=== PATIENT | male | born 1945 | race Caucasian/White ===

== ENCOUNTER 2018-02-06 12:38 | Inpatient (IN) | payer MEDICARE, SELFPAY ==
[2018-02-06] VITALS (10 sets, daily range): BP systolic 140–159; BP diastolic 71–123; PULSE 67–78; RESP 16–20; TEMP 36.6–37.2; O2SAT 93–97
--- NOTE | 2018-02-06 12:46 | DI.RPTCT_ITS ---
SYMPTOMS/DIAGNOSIS: ABDOMINAL PAIN CT OF THE ABDOMEN AND PELVIS: Comparison is made with December,. Images were performed from the lung bases through the ischial tuberosities after IV contrast. Again noted are two small fatty-containing hernias anteriorly above the level of the umbilicus. There are bilateral inguinal hernias. The left contains fat. The right contains a loop of small bowel, which appears nonobstructed. The appendix appears normal. There are dilated loops of proximal small bowel with a transition point anteriorly in the right upper quadrant. There is mild stranding in the mesentery. There is no bowel wall thickening or pneumatosis. The colon is unremarkable. Coronary artery calcifications are seen. Mild atelectasis is noted at the right lung base. The right diaphragm is again noted to be elevated. There is a large amount of intraabdominal fat and a large amount of fat between the liver and the diaphragm. The liver, spleen, gallbladder and adrenals are unremarkable. There are a few small renal cysts. The prostate is mildly enlarged. There is bladder wall thickening. The aorta shows calcification but is normal in diameter. IMPRESSION: Dilated proximal small bowel with transition point in the right mid abdomen near the level of the small fatty-containing umbilical hernias. The right inguinal hernia contains a nonobstructed loop of small bowel.
--- NOTE | 2018-02-06 12:48 | ED.GENADUL ---
Disposition Clinical Impression: Partial small bowel obstruction Disposition: [facility] INPATIENT Condition: Stable Medical Decision Making - Lab Data Laboratory Results - last 24 hr 02/06/18 02/06/18 02/06/18 12:53 12:53 13:10 WBC 8.62 RBC 5.02 Hgb 15.0 Hct 43.2 MCV 86.1 MCH 29.9 MCHC 34.7 RDW 14.0 Plt Count 205 MPV 10.1 Immature Gran % 0.2 Neutrophils % 76.0 Lymphocytes % 11.0 Monocytes % 10.2 Eosinophils % 2.3 Basophils % 0.3 Absolute Neutrophils 6.54 Absolute Lymphocytes 0.95 L Absolute Monocytes 0.88 H Absolute Eosinophils 0.20 Absolute Basophils 0.03 Sodium 138 Potassium 3.5 Chloride 103 Carbon Dioxide 24.7 Anion Gap 10.3 BUN 14 Creatinine 0.99 Estimated GFR/1.73 m2 >= 60.00 Glucose 124 H Calcium 9.1 Magnesium 2.1 Total Bilirubin 1.3 H AST 19 ALT 22 Alkaline Phosphatase 151 H Total Protein 7.6 Albumin 4.3 Lipase 107 Urine Color Yellow Urine Clarity Clear Urine pH 6.0 Ur Specific [place] 1.020 Urine Protein 30 H Urine Ketones Negative Urine Blood Trace-intact H Urine Nitrite Negative Urine Bilirubin Negative Urine Urobilinogen 1.0 H Ur Leukocyte Esterase Negative Urine RBC 0-2 Urine WBC 0-2 Ur Epithelial Cells Rare Urine Crystals Negative Urine Bacteria Negative Urine Casts 0-2 hyaline Urine Mucus Trace Urine Other Many spermatozoa Ur Culture Indicated? No Urine Glucose Negative Results reviewed for labs ordered during visit: Yes - Radiology Data Radiology results: report reviewed CAT scan of the abdomen and pelvis with IV contrast only findings consistent with partial small bowel obstruction without a specific transition point right inguinal hernia containing bowel which does not appear to be because of obstruction - Medical Decision Making Patient presents with 1 day history of abdominal pain which was preceded by diarrhea. No fevers does have nausea. Will obtain IV access send routine abdominal pain labs urine. Will administer normal saline IV fluid bolus 1 L with Zofran 4 mg IV and morphine 2 mg IV if needed for pain. Will obtain CAT scan with IV contrast only. Working diagnosis includes: bowel obstruction, incarcerated hernia, or and diverticulitis. CAT scan in case reviewed with on-call surgeon who accepts patient under observation status to the medical surgical unit for IV hydration bowel rest antiemetic and pain management. Care of patient transferred History of Present Illness - General Chief complaint: Abd Prob Stated complaint: ABDOMEN PAIN Time Seen by Provider: 02/06/18 12:45 Source: patient, RN notes reviewed (Agree with nursing on past medical social history and medications) Mode of arrival: ambulatory Limitations: no limitations - History of Present Illness Initial comments: Patient presents for a 1 day history of abdominal pain nausea. Has had no similar history in the past but states that he did have an abdominal hernia which was repaired. He states he had diarrhea yesterday not bloody but today developed the abdominal pain and nausea. He has had no fevers or chills. States his abdomen has been's soft and does not feel distended. On exam he had pain in the left side of his abdomen on palpation. Onset/Timin -: days(s) Location: abdomen Radiation: non-radiation Quality: aching, sharp Consistency: constant Improves with: none Worsens with: none Associated Symptoms: loss of appetite Treatments Prior to Arrival: none - Related Data Aspirin 325 mg PO DAILY tab-cap NS 12/19/12 Atorvastatin Calcium 80 mg PO DAILY tab-cap NS 12/19/12 Losartan [Cozaar] 100 mg PO DAILY tab-cap NS 12/19/12 Metformin HCl 1,000 mg PO BID tab-cap NS 12/19/12 Nebivolol HCl [Bystolic] 20 mg PO DAILY tab-cap NS 12/19/12 Potassium Chloride Liquid [K-Bee] 20 meq PO BID packet NS 12/19/12 Albuterol Sulfate [Proair Hfa] 1 puff IH Q6H PRN PRN 01/02/13 Budesonide/Formoterol Fumarate [Symbicort 160-4.5 Mcg Inhaler] 2 puff IH BID 01/09/13 Penicillin V Potassium 1 tab PO BID 01/09/13 Triamcinolone 0.1% Cream [Kenalog 0.1% Cream] 15 gm TP BID PRN 01/09/13 Furosemide 40 mg PO BID 01/15/13 AmLODIPine [Norvasc] 10 mg PO BID 12/11/15 BuPROPion CR [Wellbutrin Sr] 150 mg PO BID 12/11/15 Doxazosin [Cardura] 4 mg PO DAILY 02/14/16 Cholecalciferol (Vitamin D3) [Vitamin D3] 1 cap PO DAILY 08/22/17 Allergies Allergy/AdvReac Type Severity Reaction Status Date / Time oxycodone AdvReac Intermediate Nausea Unverified 02/06/18 12:48 Review of Systems Constitutional: denies: chills, fever Gastrointestinal: abdominal pain, nausea, diarrhea. denies: vomiting, constipation Genitourinary: denies: urgency, dysuria, frequency Musculoskeletal: denies: back pain Skin: denies: rash, lesions Past Medical History - Past Medical History Medical history: CAD, COPD, diabetes, hypertension Surgical history: herniorraphy - Social History Alcohol use: none Drug use: none General Exam - General Limitations: no limitations General appearance: alert, in no apparent distress - Head Head exam: Present: atraumatic, normocephalic - ENT ENT exam: Present: normal exam, mucous membranes moist - Neck Neck exam: Present: normal inspection - Respiratory Respiratory exam: Present: normal lung sounds bilaterally. Absent: respiratory distress - Cardiovascular Cardiovascular Exam: Present: regular rate - GI/Abdominal GI/Abdominal exam: Present: soft, distended, tenderness, hypoactive bowel sounds. Absent: guarding, rebound, rigid - Rectal Rectal exam: Present: deferred - Extremities Exam Extremities exam: Present: normal inspection, full ROM - Back Exam Back exam: Present: normal inspection, full ROM - Neurological Exam Neurological exam: Present: alert, oriented X3 - Psychiatric Psychiatric exam: Present: normal affect, normal mood - Skin Skin exam: Present: warm, dry, intact, normal color
[2018-02-06] MEDS: Normal Saline 1,000 ML 1000 ML IV (13:03)
[2018-02-06 13:04] LABS: Abs Immature Grans 0.02 k/cumm (0.0-0.09); Absolute Basophil Count 0.03 k/cumm (0.0-0.2); Absolute Lymphocyte Count 0.95 k/cumm (1.2-3.4); Absolute Monocyte Count 0.88 k/cumm (0.11-0.7); Absolute Neutrophil Count 6.54 k/cumm (1.2-6.7); Basophils % 0.3; Eosinophils % 2.3; HCT 43.2 % (40.0-50.0); Immature Grans % 0.2; Mean Corp. HGB Concentration 34.7 g/dL (32.0-36.0); Mean Corpuscular Hemoglobin 29.9 pg (27.0-33.0); Mean Corpuscular Volume 86.1 fL (80-95); Mean Platelet Volume 10.1 fL (8.0-11.0); Monocytes % 10.2; Platelet Count 205 x1000/uL (130-400); RBC 5.02 m/cumm (4.50-6.00); White Blood Cell Count 8.62 k/cumm (4.4-10.8)
[2018-02-06] MEDS: Ondansetron 4 MG/2 ML VIAL IVP (13:04)
[2018-02-06] MEDS: MORPHine 10 MG/ML VIAL 2 MG IVP (13:05)
[2018-02-06 13:15] LABS: ALT 22 U/L (12-78); AST 19 U/L (15-37); Albumin 4.3 g/dL (3.4-5.0); Alkaline Phosphatase 151 U/L (46-116); Anion Gap 10.3 mmol/L (3-11); BUN 14 mg/dL (7-18); Bilirubin, Total 1.3 mg/dL (0.2-1.0); CO2 24.7 mmol/L (21.0-32.0); CREATININE 0.99 mg/dL (0.70-1.30); Calcium 9.1 mg/dL (8.5-10.1); Chloride 103 mmol/L (98-107); Glucose 124 mg/dL (70-100); Lipase 107 U/L (73-393); Magnesium 2.1 mg/dL (1.8-2.4); Potassium 3.5 mmol/L (3.5-5.1); Sodium 138 mmol/L (136-145); Total Protein 7.6 g/dL (6.4-8.2)
[2018-02-06 13:18] LABS: Bilirubin Negative (Negative); Blood Trace-intact (Negative); Clarity Clear; Glucose Negative (Negative); Ketones Negative (Negative); Leukocyte Esterase Negative (Negative); Nitrite Negative (Negative)
[2018-02-06 13:29] LABS: Bacteria Negative HPF (Negative); Casts 0-2 Hyaline LPF (Negative); Crystals Negative HPF (Negative); Epithelial Cells Rare HPF (Negative); Mucus Trace (Negative); RBC 0-2 (0-2); WBC 0-2 HPF (0-5)
[2018-02-06] MEDS: Omnipaque 350 MG/ML 100 ML BTL IJ (13:31)
[2018-02-06 13:38] LABS: C & S Indicated? No
--- NOTE | 2018-02-06 13:57 | DI.VRAD_ITS ---
EXAM: CT Abdomen and Pelvis With Intravenous Contrast CLINICAL HISTORY: 72 years old, male; Pain; Abdominal pain; Generalized TECHNIQUE: Axial computed tomography images of the abdomen and pelvis with intravenous contrast. Coronal and sagittal reformatted images were created and reviewed. COMPARISON: CT - ABD PELVIS WITH CONTRAST 2015-12-19 02:03 FINDINGS: Right basilar atelectasis or scarring. Appendix is normal. Persistent mildly dilated fluid-filled loops of small bowel proximally with nondilated loops of bowel distally consistent with a partial small bowel structures. A specific transition point is not definitively identified. Small amount of free abdominal and pelvic fluid. Moderate bilateral inguinal hernias with bowel extending through the right hernia defect although this is not appear to be the cause of obstruction. No definite focal inflammatory process. No obstructive uropathy. IMPRESSION: Findings consistent with a persistent or recurrent partial small bowel obstruction without a specific transition point. Right inguinal hernia containing bowel which does not appear to be the cause of obstruction. Dictated and Authenticated by: Stephane Contreras MD. Ordering:RODRIGUE DUARTE MD
[2018-02-06] MEDS: Lactated Ringers 1,000 ML 125 ML IV (14:15)
[2018-02-06] MEDS: Furosemide 80 MG TAB 40 MG PO (15:59)
--- NOTE | 2018-02-06 16:31 | PDOC.HP ---
Assessment/Plan - Assessment/Plan (1) Small bowel obstruction, partial Assessment: Recurrent, likely secondary to small bowel adhesions. The patient has been hospitalized for SBO in the past which resolved with conservative management. Plan: 1. NPO with IVF hydration 2. Antiemetic therapy 3. NGT if patient begins to vomit 4. Pain control, attempt non-narcotic 5. SCDs and ambulation for DVT prophylaxis (2) Diarrhea Assessment: Patient reports 6 months of intermittent diarrhea as well as diarrhea multiple times yesterday until last night. Plan: 1. C. Diff screen 2. Fecal pathogen screen (3) Diabetes Assessment: Patient takes Metformin at home. Not currently on insulin. Plan: 1. Hold metformin during admission. 2. Blood glucose monitoring Q6 hrs with insulin sliding scale. (4) Hypertension Assessment: Patient takes multiple home medications for hypertension including amlodipine, losartan, Bystolic, and Lasix. Plan: Continue home blood pressure medications (5) Hyperlipidemia Assessment: Patient takes statin at home. Plan: Hold statin during admission (6) Obstructive sleep apnea Assessment: Patient does not report bipap at home Plan: Sleep with HOB elevated >30 degrees (7) Coronary artery disease Assessment: Patient takes aspirin at home Plan: Continue aspirin. potline monitor/telemetry. (8) COPD (chronic obstructive pulmonary disease) Assessment: Patient takes Symbicort at home Plan: Continue home Symbicort History of Present Illness - History of Present Illness Chief Complaint: Abdominal pain and distension History of Present Illness: The patient is a 72 year old male with a history of previous laparoscopic ventral hernia repair with mesh with subsequent revision and recurrent small bowel obstructions who presents to the ED with a one day history of worsening crampy epigastric and mid-abdominal pain along with abdominal distension and mild nausea. The patient reports liquid diarrhea most of the day yesterday with his last BM last night. He notes producing a small amount of flatus throughout the day today. He reports intermittent diarrhea for the past six months for which he has not yet seen a doctor. He denies vomiting, chest pain, SOB, fever, and chills. He has a complex medical history including DM II on metformin only, CAD s/p CT x2 requiring cardiac cath (no stenting to patient's knowledge), HTN, HLD, RJ, COPD and peripheral neuropathy. Last colonoscopy was in 2016 during which several polyps were removed. CT scan performed in the ED shows dilated loops of proximal small bowel with decompressed distal small bowel and no clear transition point. Of note, CT scan revealed bilateral inguinal hernias, with the right side containing a loop of small bowel which does not appear to be contributing to the SBO. The patient was unaware of the inguinal hernias. The inguinal hernias are easily reducible and nontender on physical exam. - Past Medical History Cardiac: CAD, HTN, CT, Hyperlipidemia Pulmonary: COPD, Other (Obstructive sleep apnea) [employer]: Peripheral neuropathy Gastrointestinal: Other (chronic intermittent diarrhea, recurrent SBO) Renal/: Benign prostatic enlarg. Endocrine: Diabetes, Other (obesity) - Past Surgical History Past Surgical History: Hernia Repair (laparoscopic ventral with mesh), Total Knee Replacement (bilateral), Other (Diagnostic laparoscopy with lysis of adhesions and ventral hernia revision, Left rotator cuff repair) - Past Family History Family History: CAD (Brothers), Other (Mother of CHF) - Past Social History Smoke: No Alcohol: None Drugs: None Lives: With Family () Review of Systems - Review of Systems Constitutional: Malaise. denies: Fever, Chills, Sweats, Weakness Eyes: denies: Pain, Vision Change, Conjunctivae Inflammation, Eyelid Inflammation, Redness ENT: denies: Ear Pain, Ear Discharge, Nose Pain, Nose Discharge, Nose Congestion, Mouth Pain, Mouth Swelling, Throat Pain, Throat Swelling Respiratory: denies: Cough, Shortness of Breath, Hemoptysis, Sputum, Wheezing Cardiovascular: Edema (improved today from baseline). denies: Chest Pain, Palpitations Gastrointestinal: Nausea (mild and intermittent), Abdominal Pain (Epigastric and mid-abdomen), Diarrhea. denies: Vomiting, Melena, Hematochezia Genitourinary: denies: Dysuria, Frequency, Incontinence, Hematuria Musculoskeletal: Shoulder Pain (left) Skin: denies: Rash, Lesions, Bruising Neurological: denies: Weakness, Numbness, Incoordination, Change in Speech, Confusion - Medications/Allergies Allergies/Adverse Reactions: Allergies Allergy/AdvReac Type Severity Reaction Status Date / Time oxycodone AdvReac Intermediate Nausea Unverified 02/06/18 12:48 Medications: Current Medications Acetaminophen (Tylenol) 650 mg PO Q6H PRN PRN PRN Reason: Pain or Fever Albuterol Sulfate (Ventolin Hfa) 1 puff IH Q6H PRN PRN Amlodipine Besylate (Norvasc) 10 mg PO BID [facility] Budesonide/Formoterol Fumarate (Symbicort 160/4.5 Mcg Inhaler) 2 puff IH BID [facility] Bupropion HCl (Wellbutrin Sr) 150 mg PO BID [facility] Dextrose (Insta-Glucose) 0 gm PO DIRECTED PRN Dextrose/Water () 0 gm IVP DIRECTED PRN Dimethicone/Zinc Oxide (Tono Protect Cream) 0 gm TP PRN PRN Doxazosin Mesylate (Cardura) 4 mg PO DAILY [facility] Furosemide (Lasix) 40 mg PO BID@0830,1600 [facility] Last Admin: 02/06/18 15:59 Dose: 40 mg Potassium Chloride/Sodium Chloride (Kcl 40 Meq/Ns) 1,000 mls @ 125 mls/hr IV INFUSION [facility] IV Miscellaneous Supplies () 1 each IV DIRECTED [facility] Insulin Aspart (Novolog Flexpen) 0 units SC 0800,1200,1700 MARQUIS PRN Reason: Protocol Ketorolac Tromethamine (Toradol Injection) 30 mg IVP Q6H PRN PRN PRN Reason: Pain Stop: 02/11/18 16:06 Losartan Potassium (Cozaar) 100 mg PO DAILY [facility] Morphine Sulfate () 2 mg IVP Q3H PRN PRN PRN Reason: Pain Nebivolol (Bystolic) 20 mg PO DAILY [facility] Ondansetron HCl (Zofran Injection) 4 mg IVP Q4H PRN PRN Sodium Chloride (Saline Flush 10 Ml Syringe) 0 ml IVP PRN PRN Triamcinolone Acetonide (Kenalog 0.1% Cream) 0 gm TP BID PRN PRN Objective - Exam Vitals and I&O: Vital Signs Temp 37.1 C 02/06/18 14:43 Pulse 70 02/06/18 14:43 Resp 16 02/06/18 14:43 BP 140/71 02/06/18 14:43 Pulse Ox 94 L 02/06/18 14:43 Intake & Output 02/05/18 02/06/18 02/06/18 23:59 11:59 23:59 Intake Total 1000 Balance 1000 Weight 109.769 kg Intake: IV 1000 General: Alert, Oriented x3, Cooperative, No acute distress HEENT: Atraumatic, EOMI, Mucous membr. moist/pink Neck: Supple. denies: JVD, Thyromegaly Lungs: Clear to auscultation, Normal air movement Cardiovascular: Regular rate, Normal S1, Normal S2. denies: Murmurs Abdomen: Soft, Tenderness (mild in epigastrium), Other (Obese, protuberant abdomen which appears mildly distended, reducible ventral hernia as well as likely diastasis recti). denies: Hepatospenomegaly, Masses Extremities: denies: Edema, Tenderness/swelling Skin: denies: Rashes, Breakdown, Significant lesion Neurological: Normal speech, Cranial nerves 3-12 NL Psych/Mental Status: Mental status NL, Mood NL Other physical findings: Bilateral reducible inguinal hernias, non-tender. Results - Laboratory Data Result Diagrams: 02/06/18 12:53 02/06/18 12:53 Laboratory Results: Laboratory Tests 02/06/18 02/06/18 02/06/18 12:53 12:53 13:10 WBC 8.62 RBC 5.02 Hgb 15.0 Hct 43.2 MCV 86.1 MCH 29.9 MCHC 34.7 RDW 14.0 Plt Count 205 MPV 10.1 Immature Gran % 0.2 Neutrophils % 76.0 Lymphocytes % 11.0 Monocytes % 10.2 Eosinophils % 2.3 Basophils % 0.3 Absolute Neutrophils 6.54 Absolute Lymphocytes 0.95 L Absolute Monocytes 0.88 H Absolute Eosinophils 0.20 Absolute Basophils 0.03 Sodium 138 Potassium 3.5 Chloride 103 Carbon Dioxide 24.7 Anion Gap 10.3 BUN 14 Creatinine 0.99 Estimated GFR/1.73 m2 >= 60.00 Glucose 124 H Calcium 9.1 Magnesium 2.1 Total Bilirubin 1.3 H AST 19 ALT 22 Alkaline Phosphatase 151 H Total Protein 7.6 Albumin 4.3 Lipase 107 Urine Color Yellow Urine Clarity Clear Urine pH 6.0 Ur Specific [place] 1.020 Urine Protein 30 H Urine Ketones Negative Urine Blood Trace-intact H Urine Nitrite Negative Urine Bilirubin Negative Urine Urobilinogen 1.0 H Ur Leukocyte Esterase Negative Urine RBC 0-2 Urine WBC 0-2 Ur Epithelial Cells Rare Urine Crystals Negative Urine Bacteria Negative Urine Casts 0-2 hyaline Urine Mucus Trace Urine Other Many spermatozoa Ur Culture Indicated? No Urine Glucose Negative
--- NOTE | 2018-02-06 16:42 | PDOC.HP_ITS ---
Assessment/Plan - Assessment/Plan (1) Small bowel obstruction, partial Assessment: Recurrent, likely secondary to small bowel adhesions. The patient has been hospitalized for SBO in the past which resolved with conservative management. Plan: 1. NPO with IVF hydration 2. Antiemetic therapy 3. NGT if patient begins to vomit 4. Pain control, attempt non-narcotic 5. SCDs and ambulation for DVT prophylaxis (2) Diarrhea Assessment: Patient reports 6 months of intermittent diarrhea as well as diarrhea multiple times yesterday until last night. Plan: 1. C. Diff screen 2. Fecal pathogen screen (3) Diabetes Assessment: Patient takes Metformin at home. Not currently on insulin. Plan: 1. Hold metformin during admission. 2. Blood glucose monitoring Q6 hrs with insulin sliding scale. (4) Hypertension Assessment: Patient takes multiple home medications for hypertension including amlodipine, losartan, Bystolic, and Lasix. Plan: Continue home blood pressure medications (5) Hyperlipidemia Assessment: Patient takes statin at home. Plan: Hold statin during admission (6) Obstructive sleep apnea Assessment: Patient does not report bipap at home Plan: Sleep with HOB elevated >30 degrees (7) Coronary artery disease Assessment: Patient takes aspirin at home Plan: Continue aspirin. clinical research monitor/telemetry. (8) COPD (chronic obstructive pulmonary disease) Assessment: Patient takes Symbicort at home Plan: Continue home Symbicort History of Present Illness - History of Present Illness Chief Complaint: Abdominal pain and distension History of Present Illness: The patient is a 72 year old male with a history of previous laparoscopic ventral hernia repair with mesh with subsequent revision and recurrent small bowel obstructions who presents to the ED with a one day history of worsening crampy epigastric and mid-abdominal pain along with abdominal distension and mild nausea. The patient reports liquid diarrhea most of the day yesterday with his last BM last night. He notes producing a small amount of flatus throughout the day today. He reports intermittent diarrhea for the past six months for which he has not yet seen a doctor. He denies vomiting, chest pain, SOB, fever, and chills. He has a complex medical history including DM II on metformin only, CAD s/p [place] x2 requiring cardiac cath (no stenting to patient's knowledge), HTN, HLD, RJ, COPD and peripheral neuropathy. Last colonoscopy was in 2016 during which several polyps were removed. CT scan performed in the ED shows dilated loops of proximal small bowel with decompressed distal small bowel and no clear transition point. Of note, CT scan revealed bilateral inguinal hernias, with the right side containing a loop of small bowel which does not appear to be contributing to the SBO. The patient was unaware of the inguinal hernias. The inguinal hernias are easily reducible and nontender on physical exam. 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 Endocrine: Diabetes, Other (obesity) - Past Surgical History Past Surgical History: Hernia Repair (laparoscopic ventral with mesh), Total Knee Replacement (bilateral), Other (Diagnostic laparoscopy with lysis of adhesions and ventral hernia revision, Left rotator cuff repair) - Past Family History Family History: CAD (Brothers), Other (Mother of CHF) - Past Social History Smoke: No Alcohol: None Drugs: None Lives: With Family () Review of Systems - Review of Systems Constitutional: Malaise. denies: Fever, Chills, Sweats, Weakness Eyes: denies: Pain, Vision Change, Conjunctivae Inflammation, Eyelid Inflammation, Redness ENT: denies: Ear Pain, Ear Discharge, Nose Pain, Nose Discharge, Nose Congestion , Mouth Pain, Mouth Swelling, Throat Pain, Throat Swelling Respiratory: denies: Cough, Shortness of Breath, Hemoptysis, Sputum, Wheezing Cardiovascular: Edema (improved today from baseline). denies: Chest Pain, Palpitations Gastrointestinal: Nausea (mild and intermittent), Abdominal Pain (Epigastric and mid-abdomen), Diarrhea. denies: Vomiting, Melena, Hematochezia Genitourinary: denies: Dysuria, Frequency, Incontinence, Hematuria Musculoskeletal: Shoulder Pain (left) Skin: denies: Rash, Lesions, Bruising Neurological: denies: Weakness, Numbness, Incoordination, Change in Speech, Confusion - Medications/Allergies Allergies/Adverse Reactions: Allergies Allergy/AdvReac Type Severity Reaction Status Date / Time oxycodone AdvReac Intermediate Nausea Unverified 02/06/18 12:48 Medications: Current Medications Acetaminophen (Tylenol) 650 mg PO Q6H PRN PRN PRN Reason: Pain or Fever Albuterol Sulfate (Ventolin Hfa) 1 puff IH Q6H PRN PRN Amlodipine Besylate (Norvasc) 10 mg PO BID ON LICENSE OF [facility] Budesonide/Formoterol Fumarate (Symbicort 160/4.5 Mcg Inhaler) 2 puff IH BID ON LICENSE OF [facility] Bupropion HCl (Wellbutrin Sr) 150 mg PO BID ON LICENSE OF [facility] Dextrose (Insta-Glucose) 0 gm PO DIRECTED PRN Dextrose/Water () 0 gm IVP DIRECTED PRN Dimethicone/Zinc Oxide (Tono Protect Cream) 0 gm TP PRN PRN Doxazosin Mesylate (Cardura) 4 mg PO DAILY ON LICENSE OF [facility] Furosemide (Lasix) 40 mg PO BID@0830,1600 ON LICENSE OF [facility] Last Admin: 02/06/18 15:59 Dose: 40 mg Potassium Chloride/Sodium Chloride (Kcl 40 Meq/Ns) 1,000 mls @ 125 mls/hr IV INFUSION ON LICENSE OF [facility] IV Miscellaneous Supplies () 1 each IV DIRECTED ON LICENSE OF [facility] Insulin Aspart (Novolog Flexpen) 0 units SC 0800,1200,1700 MARQUIS PRN Reason: Protocol Ketorolac Tromethamine (Toradol Injection) 30 mg IVP Q6H PRN PRN PRN Reason: Pain Stop: 02/11/18 16:06 Losartan Potassium (Cozaar) 100 mg PO DAILY ON LICENSE OF [facility] Morphine Sulfate () 2 mg IVP Q3H PRN PRN PRN Reason: Pain Nebivolol (Bystolic) 20 mg PO DAILY ON LICENSE OF [facility] Ondansetron HCl (Zofran Injection) 4 mg IVP Q4H PRN PRN Sodium Chloride (Saline Flush 10 Ml Syringe) 0 ml IVP PRN PRN Triamcinolone Acetonide (Kenalog 0.1% Cream) 0 gm TP BID PRN PRN Objective - Exam Vitals and I&O: Vital Signs Temp 37.1 C 02/06/18 14:43 Pulse 70 02/06/18 14:43 Resp 16 02/06/18 14:43 BP 140/71 02/06/18 14:43 Pulse Ox 94 L 02/06/18 14:43 Intake & Output 02/05/18 02/06/18 02/06/18 23:59 11:59 23:59 Intake Total 1000 Balance 1000 Weight 109.769 kg Intake: IV 1000 General: Alert, Oriented x3, Cooperative, No acute distress HEENT: Atraumatic, EOMI, Mucous membr. moist/pink Neck: Supple. denies: JVD, Thyromegaly Lungs: Clear to auscultation, Normal air movement Cardiovascular: Regular rate, Normal S1, Normal S2. denies: Murmurs Abdomen: Soft, Tenderness (mild in epigastrium), Other (Obese, protuberant abdomen which appears mildly distended, reducible ventral hernia as well as likely diastasis recti). denies: Hepatospenomegaly, Masses Extremities: denies: Edema, Tenderness/swelling Skin: denies: Rashes, Breakdown, Significant lesion Neurological: Normal speech, Cranial nerves 3-12 NL Psych/Mental Status: Mental status NL, Mood NL Other physical findings: Bilateral reducible inguinal hernias, non-tender. Results - Laboratory Data Result Diagrams: 02/06/18 12:53 02/06/18 12:53 Laboratory Results: Laboratory Tests 02/06/18 02/06/18 02/06/18 12:53 12:53 13:10 WBC 8.62 RBC 5.02 Hgb 15.0 Hct 43.2 MCV 86.1 MCH 29.9 MCHC 34.7 RDW 14.0 Plt Count 205 MPV 10.1 Immature Gran % 0.2 Neutrophils % 76.0 Lymphocytes % 11.0 Monocytes % 10.2 Eosinophils % 2.3 Basophils % 0.3 Absolute Neutrophils 6.54 Absolute Lymphocytes 0.95 L Absolute Monocytes 0.88 H Absolute Eosinophils 0.20 Absolute Basophils 0.03 Sodium 138 Potassium 3.5 Chloride 103 Carbon Dioxide 24.7 Anion Gap 10.3 BUN 14 Creatinine 0.99 Estimated GFR/1.73 m2 >= 60.00 Glucose 124 H Calcium 9.1 Magnesium 2.1 Total Bilirubin 1.3 H AST 19 ALT 22 Alkaline Phosphatase 151 H Total Protein 7.6 Albumin 4.3 Lipase 107 Urine Color Yellow Urine Clarity Clear Urine pH 6.0 Ur Specific [place] 1.020 Urine Protein 30 H Urine Ketones Negative Urine Blood Trace-intact H Urine Nitrite Negative Urine Bilirubin Negative Urine Urobilinogen 1.0 H Ur Leukocyte Esterase Negative Urine RBC 0-2 Urine WBC 0-2 Ur Epithelial Cells Rare Urine Crystals Negative Urine Bacteria Negative Urine Casts 0-2 hyaline Urine Mucus Trace Urine Other Many spermatozoa Ur Culture Indicated? No Urine Glucose Negative
[2018-02-06] MEDS: Budesonide/Formoterol 160/4.5 6 GM 60 PUFF INH IH (20:24)
[2018-02-06] MEDS: buPROPion-CR 150 MG TABCR PO (20:26)
[2018-02-06] MEDS: amLODIPine 10 MG TAB PO (20:26)
[2018-02-06] MEDS: POTASSIUM CHLORIDE/0.9% NACL 1,000 ML 125 MEQ IV (22:30)
[2018-02-07] VITALS (8 sets, daily range): BP systolic 103–144; BP diastolic 69–74; PULSE 58–74; RESP 19–20; TEMP 36.4–37; O2SAT 92–97
[2018-02-07] MEDS: POTASSIUM CHLORIDE/0.9% NACL 1,000 ML 125 MEQ IV ×2 (06:13→13:48)
[2018-02-07] MEDS: Budesonide/Formoterol 160/4.5 6 GM 60 PUFF INH IH ×2 (07:18→19:42)
[2018-02-07 07:30] LABS: HCT 42.1 % (40.0-50.0); HGB 14.2 g/dL (13.5-17.5); Mean Corp. HGB Concentration 33.7 g/dL (32.0-36.0); Mean Corpuscular Hemoglobin 29.8 pg (27.0-33.0); Mean Corpuscular Volume 88.3 fL (80-95); Mean Platelet Volume 10.4 fL (8.0-11.0); Platelet Count 196 x1000/uL (130-400); RBC 4.77 m/cumm (4.50-6.00); RBC Distribution Width 14.3 % (11.8-14.1); White Blood Cell Count 6.31 k/cumm (4.4-10.8)
[2018-02-07] MEDS: Furosemide 80 MG TAB 40 MG PO ×2 (08:21→16:20)
[2018-02-07] MEDS: buPROPion-CR 150 MG TABCR PO ×2 (08:21→19:42)
[2018-02-07] MEDS: Losartan 50 MG TAB 100 MG PO (08:21)
[2018-02-07] MEDS: amLODIPine 10 MG TAB PO ×2 (08:22→19:42)
[2018-02-07 08:54] LABS: ALT 22 U/L (12-78); AST 18 U/L (15-37); Albumin 3.7 g/dL (3.4-5.0); Alkaline Phosphatase 132 U/L (46-116); Anion Gap 11.5 mmol/L (3-11); BUN 12 mg/dL (7-18); Bilirubin, Direct 0.28 mg/dL (0.00-0.20); Bilirubin, Total 1.1 mg/dL (0.2-1.0); CO2 24.5 mmol/L (21.0-32.0); Calcium 8.6 mg/dL (8.5-10.1); Chloride 108 mmol/L (98-107); Glucose 116 mg/dL (70-100); Potassium 3.7 mmol/L (3.5-5.1); Sodium 144 mmol/L (136-145); Total Protein 6.7 g/dL (6.4-8.2)
[2018-02-07] MEDS: Normal Saline Flush 10 ML SYR IVP (11:09)
--- NOTE | 2018-02-07 11:36 | PDOC.PROG ---
Date of Service: 02/07/18 Time of Service: 09:00 Assessment/Plan - Assessment/Plan (1) Small bowel obstruction, partial Assessment: The patient continues to show signs of SBO with absence of flatus and stool as well as presence of nausea, abdominal discomfort and abdominal distension. Plan: 1. Continue conservative management with NPO with IVF hydration. 2. Encourage ambulation. 3. Pain management with non-narcotics if tolerated. 4. NGT if vomiting occurs. 5. DVT prophylaxis: SCDs and ambulation (2) Diarrhea Assessment: Resolved. No BM since admission. Plan: Stool studies ordered but pending secondary to lack of further BM. (3) Diabetes Assessment: On Metformin at home. Plan: Continue accuchecks with insulin sliding scale. Hold Metformin while inpatient. (4) Hypertension Assessment: Controlled with medication. Plan: Continue home medication. (5) Hyperlipidemia Assessment: On statin at home. Plan: Hold statin while inpatient. (6) Obstructive sleep apnea Assessment: On CPAP at home. Plan: Continue CPAP at night in hospital. (7) Coronary artery disease Assessment: S/p [place] x2 with cath but no stenting. On aspirin at home. Plan: Hold aspirin while inpatient in case the need for surgery arises. (8) COPD (chronic obstructive pulmonary disease) Assessment: On Symbicort at home. Plan: Continue Symbicort as inpatient. 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 He has a history of laparoscopic ventral hernia repair with mesh in 2012. Following his initial hernia surgery, he underwent a diagnostic laparoscopy with KARTHIKEYAN and ventral hernia repair revision also in 2012 as well as one subsequent hospitalization for SBO which resolved with conservative management in 2016. Today he continues to feel distended, denies BM or flatus, and reports only mild nausea without vomiting. He remains NPO with ice chips and IVF hydration. Of note, he reports 6 months of intermittent diarrhea as well as diarrhea for 24 hours prior to admission. For this reason stool studies are pending. Review of Systems - Review of Systems Constitutional: denies: Fever, Chills, Sweats, Weakness Respiratory: denies: Cough, Dry, Shortness of Breath, Hemoptysis, Sputum, Wheezing Cardiovascular: denies: Chest Pain, Palpitations, Light Headedness Gastrointestinal: Nausea (Mild), Abdominal Pain (diffuse), Other (Reports abdominal distension). denies: Vomiting, Diarrhea Genitourinary: denies: Dysuria, Frequency, Incontinence, Hematuria Skin: denies: Rash, Lesions Neurological: denies: Weakness, Incoordination, Change in Speech, Confusion - Medications/Allergies Allergies/Adverse Reactions: Allergies Allergy/AdvReac Type Severity Reaction Status Date / Time oxycodone AdvReac Intermediate Nausea Unverified 02/06/18 12:48 Medications: Current Medications Acetaminophen (Tylenol) 650 mg PO Q6H PRN PRN PRN Reason: Pain or Fever Albuterol Sulfate (Ventolin Hfa) 1 puff IH Q6H PRN PRN Amlodipine Besylate (Norvasc) 10 mg PO BID [facility] Last Admin: 02/07/18 08:22 Dose: 10 mg Benzocaine/Menthol (Cepacol Sugar Free) 1 each SUC Q6H PRN PRN Budesonide/Formoterol Fumarate (Symbicort 160/4.5 Mcg Inhaler) 2 puff IH BID [facility] Last Admin: 02/07/18 07:18 Dose: 2 puff Bupropion HCl (Wellbutrin Sr) 150 mg PO BID [facility] Last Admin: 02/07/18 08:21 Dose: 150 mg Dextrose (Insta-Glucose) 0 gm PO DIRECTED PRN Dextrose/Water () 0 gm IVP DIRECTED PRN Dimethicone/Zinc Oxide (Tono Protect Cream) 0 gm TP PRN PRN Doxazosin Mesylate (Cardura) 4 mg PO DAILY [facility] Last Admin: 02/07/18 08:21 Dose: 4 mg Furosemide (Lasix) 40 mg PO BID@0830,1600 [facility] Last Admin: 02/07/18 08:21 Dose: 40 mg Potassium Chloride/Sodium Chloride (Kcl 40 Meq/Ns) 1,000 mls @ 125 mls/hr IV INFUSION [facility] Last Admin: 02/07/18 06:13 Dose: 125 mls/hr IV Miscellaneous Supplies () 1 each IV DIRECTED [facility] Insulin Aspart (Novolog Flexpen) 0 units SC Q6H [place]QUIS PRN Reason: Protocol Last Admin: 02/07/18 11:33 Dose: Not Given Ketorolac Tromethamine (Toradol Injection) 30 mg IVP Q6H PRN PRN PRN Reason: Pain Stop: 02/11/18 16:06 Losartan Potassium (Cozaar) 100 mg PO DAILY [facility] Last Admin: 02/07/18 08:21 Dose: 100 mg Morphine Sulfate () 2 mg IVP Q3H PRN PRN PRN Reason: Pain Nebivolol (Bystolic) 20 mg PO DAILY [facility] Last Admin: 02/07/18 08:21 Dose: 20 mg Ondansetron HCl (Zofran Injection) 4 mg IVP Q4H PRN PRN Sodium Chloride (Saline Flush 10 Ml Syringe) 0 ml IVP PRN PRN Last Admin: 02/07/18 11:09 Dose: 10 ml Triamcinolone Acetonide (Kenalog 0.1% Cream) 0 gm TP BID PRN PRN Objective - Exam Vitals and I&O: Vital Signs Temp 36.4 C L 02/07/18 08:00 Pulse 74 02/07/18 08:00 Resp 19 02/07/18 08:00 BP 144/74 02/07/18 08:00 Pulse Ox 92 L 02/07/18 08:00 Intake & Output 02/06/18 02/06/18 02/07/18 11:59 23:59 11:59 Intake Total 834 1003 Output Total 1150 400 Balance -316 603 Weight 109.769 kg Intake: IV 834 943 Oral 60 Output: Urine 1150 400 Other: Urine Color Yellow Yellow Urine Appearance Clear Clear Urine Odor Normal Voiding Methods Urinal Urinal General: Alert, Oriented x3, Cooperative, No acute distress HEENT: Atraumatic, EOMI, Mucous membr. moist/pink Neck: Supple. denies: JVD, Thyromegaly Lungs: Clear to auscultation, Normal air movement Cardiovascular: Regular rate, Normal S1, Normal S2 Abdomen: Soft, Tenderness (Mild in mid-abdomen over previous hernia repair), Other (positive for distension) Skin: denies: Rashes, Breakdown Neurological: Normal speech, Cranial nerves 3-12 NL Psych/Mental Status: Mental status NL, Mood NL - Results Results: Laboratory Results WBC 6.31 k/cumm (4.4-10.8) 02/07/18 07:00 RBC 4.77 m/cumm (4.50-6.00) 02/07/18 07:00 Hgb 14.2 g/dL (13.5-17.5) 02/07/18 07:00 Hct 42.1 % (40.0-50.0) 02/07/18 07:00 MCV 88.3 fL (80-95) 02/07/18 07:00 MCH 29.8 pg (27.0-33.0) 02/07/18 07:00 MCHC 33.7 g/dL (32.0-36.0) 02/07/18 07:00 RDW 14.3 % (11.8-14.1) H 02/07/18 07:00 Plt Count 196 x1000/uL (130-400) 02/07/18 07:00 MPV 10.4 fL (8.0-11.0) 02/07/18 07:00 Immature Gran % 0.2 02/06/18 12:53 Neutrophils % 76.0 02/06/18 12:53 Lymphocytes % 11.0 02/06/18 12:53 Monocytes % 10.2 02/06/18 12:53 Eosinophils % 2.3 02/06/18 12:53 Basophils % 0.3 02/06/18 12:53 Absolute Neutrophils 6.54 k/cumm (1.2-6.7) 02/06/18 12:53 Absolute Lymphocytes 0.95 k/cumm (1.2-3.4) L 02/06/18 12:53 Absolute Monocytes 0.88 k/cumm (0.11-0.7) H 02/06/18 12:53 Absolute Eosinophils 0.20 k/cumm (0.0-0.7) 02/06/18 12:53 Absolute Basophils 0.03 k/cumm (0.0-0.2) 02/06/18 12:53 Sodium 144 mmol/L (136-145) 02/07/18 07:00 Potassium 3.7 mmol/L (3.5-5.1) 02/07/18 07:00 Chloride 108 mmol/L (98-107) H 02/07/18 07:00 Carbon Dioxide 24.5 mmol/L (21.0-32.0) 02/07/18 07:00 Anion Gap 11.5 mmol/L (3-11) H 02/07/18 07:00 BUN 12 mg/dL (7-18) 02/07/18 07:00 Creatinine 1.00 mg/dL (0.70-1.30) 02/07/18 07:00 Estimated GFR/1.73 m2 >= 60.00 (mL/min/1.73m2) 02/07/18 07:00 Glucose 116 mg/dL (70-100) H 02/07/18 07:00 Calcium 8.6 mg/dL (8.5-10.1) 02/07/18 07:00 Magnesium 2.1 mg/dL (1.8-2.4) 02/06/18 12:53 Total Bilirubin 1.1 mg/dL (0.2-1.0) H 02/07/18 07:00 Conjugated Bilirubin 0.28 mg/dL (0.00-0.20) H 02/07/18 07:00 AST 18 U/L (15-37) 02/07/18 07:00 ALT 22 U/L (12-78) 02/07/18 07:00 Alkaline Phosphatase 132 U/L (46-116) H 02/07/18 07:00 Total Protein 6.7 g/dL (6.4-8.2) 02/07/18 07:00 Albumin 3.7 g/dL (3.4-5.0) 02/07/18 07:00 Lipase 107 U/L (73-393) 02/06/18 12:53 Urine Color Yellow (Yellow) 02/06/18 13:10 Urine Clarity Clear 02/06/18 13:10 Urine pH 6.0 (5-8) 02/06/18 13:10 Ur Specific [place] 1.020 (1.005-1.025) 02/06/18 13:10 Urine Protein 30 mg/dL (Negative) H 02/06/18 13:10 Urine Ketones Negative mg/dL (Negative) 02/06/18 13:10 Urine Blood Trace-intact (Negative) H 02/06/18 13:10 Urine Nitrite Negative (Negative) 02/06/18 13:10 Urine Bilirubin Negative (Negative) 02/06/18 13:10 Urine Urobilinogen 1.0 EU/dL (Up TO 0.2) H 02/06/18 13:10 Ur Leukocyte Esterase Negative (Negative) 02/06/18 13:10 Urine RBC 0-2 (0-2) 02/06/18 13:10 Urine WBC 0-2 HPF (0-5) 02/06/18 13:10 Ur Epithelial Cells Rare HPF (Negative) 02/06/18 13:10 Urine Crystals Negative HPF (Negative) 02/06/18 13:10 Urine Bacteria Negative HPF (Negative) 02/06/18 13:10 Urine Casts 0-2 hyaline LPF (Negative) 02/06/18 13:10 Urine Mucus Trace (Negative) 02/06/18 13:10 Urine Other Many spermatozoa (Negative) 02/06/18 13:10 Ur Culture Indicated? No 02/06/18 13:10 Urine Glucose Negative mg/dL (Negative) 02/06/18 13:10
--- NOTE | 2018-02-07 11:47 | PDOC.PROG_ITS ---
Date of Service: 02/07/18 Time of Service: 09:00 Assessment/Plan - Assessment/Plan (1) Small bowel obstruction, partial Assessment: The patient continues to show signs of SBO with absence of flatus and stool as well as presence of nausea, abdominal discomfort and abdominal distension. Plan: 1. Continue conservative management with NPO with IVF hydration. 2. Encourage ambulation. 3. Pain management with non-narcotics if tolerated. 4. NGT if vomiting occurs. 5. DVT prophylaxis: SCDs and ambulation (2) Diarrhea Assessment: Resolved. No BM since admission. Plan: Stool studies ordered but pending secondary to lack of further BM. (3) Diabetes Assessment: On Metformin at home. Plan: Continue accuchecks with insulin sliding scale. Hold Metformin while inpatient. (4) Hypertension Assessment: Controlled with medication. Plan: Continue home medication. (5) Hyperlipidemia Assessment: On statin at home. Plan: Hold statin while inpatient. (6) Obstructive sleep apnea Assessment: On CPAP at home. Plan: Continue CPAP at night in hospital. (7) Coronary artery disease Assessment: S/p ID x2 with cath but no stenting. On aspirin at home. Plan: Hold aspirin while inpatient in case the need for surgery arises. (8) COPD (chronic obstructive pulmonary disease) Assessment: On Symbicort at home. Plan: Continue Symbicort as inpatient. 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 He has a history of laparoscopic ventral hernia repair with mesh in 2012. Following his initial hernia surgery, he underwent a diagnostic laparoscopy with KARTHIKEYAN and ventral hernia repair revision also in 2012 as well as one subsequent hospitalization for SBO which resolved with conservative management in 2016. Today he continues to feel distended, denies BM or flatus, and reports only mild nausea without vomiting. He remains NPO with ice chips and IVF hydration. Of note, he reports 6 months of intermittent diarrhea as well as diarrhea for 24 hours prior to admission. For this reason stool studies are pending. Review of Systems - Review of Systems Constitutional: denies: Fever, Chills, Sweats, Weakness Respiratory: denies: Cough, Dry, Shortness of Breath, Hemoptysis, Sputum, Wheezing Cardiovascular: denies: Chest Pain, Palpitations, Light Headedness Gastrointestinal: Nausea (Mild), Abdominal Pain (diffuse), Other (Reports abdominal distension). denies: Vomiting, Diarrhea Genitourinary: denies: Dysuria, Frequency, Incontinence, Hematuria Skin: denies: Rash, Lesions Neurological: denies: Weakness, Incoordination, Change in Speech, Confusion - Medications/Allergies Allergies/Adverse Reactions: Allergies Allergy/AdvReac Type Severity Reaction Status Date / Time oxycodone AdvReac Intermediate Nausea Unverified 02/06/18 12:48 Medications: Current Medications Acetaminophen (Tylenol) 650 mg PO Q6H PRN PRN PRN Reason: Pain or Fever Albuterol Sulfate (Ventolin Hfa) 1 puff IH Q6H PRN PRN Amlodipine Besylate (Norvasc) 10 mg PO BID [facility] Last Admin: 02/07/18 08:22 Dose: 10 mg Benzocaine/Menthol (Cepacol Sugar Free) 1 each SUC Q6H PRN PRN Budesonide/Formoterol Fumarate (Symbicort 160/4.5 Mcg Inhaler) 2 puff IH BID [facility] Last Admin: 02/07/18 07:18 Dose: 2 puff Bupropion HCl (Wellbutrin Sr) 150 mg PO BID [facility] Last Admin: 02/07/18 08:21 Dose: 150 mg Dextrose (Insta-Glucose) 0 gm PO DIRECTED PRN Dextrose/Water () 0 gm IVP DIRECTED PRN Dimethicone/Zinc Oxide (Tono Protect Cream) 0 gm TP PRN PRN Doxazosin Mesylate (Cardura) 4 mg PO DAILY [facility] Last Admin: 02/07/18 08:21 Dose: 4 mg Furosemide (Lasix) 40 mg PO BID@0830,1600 [facility] Last Admin: 02/07/18 08:21 Dose: 40 mg Potassium Chloride/Sodium Chloride (Kcl 40 Meq/Ns) 1,000 mls @ 125 mls/hr IV INFUSION [facility] Last Admin: 02/07/18 06:13 Dose: 125 mls/hr IV Miscellaneous Supplies () 1 each IV DIRECTED [facility] Insulin Aspart (Novolog Flexpen) 0 units SC Q6H [facility] PRN Reason: Protocol Last Admin: 02/07/18 11:33 Dose: Not Given Ketorolac Tromethamine (Toradol Injection) 30 mg IVP Q6H PRN PRN PRN Reason: Pain Stop: 02/11/18 16:06 Losartan Potassium (Cozaar) 100 mg PO DAILY [facility] Last Admin: 02/07/18 08:21 Dose: 100 mg Morphine Sulfate () 2 mg IVP Q3H PRN PRN PRN Reason: Pain Nebivolol (Bystolic) 20 mg PO DAILY [facility] Last Admin: 02/07/18 08:21 Dose: 20 mg Ondansetron HCl (Zofran Injection) 4 mg IVP Q4H PRN PRN Sodium Chloride (Saline Flush 10 Ml Syringe) 0 ml IVP PRN PRN Last Admin: 02/07/18 11:09 Dose: 10 ml Triamcinolone Acetonide (Kenalog 0.1% Cream) 0 gm TP BID PRN PRN Objective - Exam Vitals and I&O: Vital Signs Temp 36.4 C L 02/07/18 08:00 Pulse 74 02/07/18 08:00 Resp 19 02/07/18 08:00 BP 144/74 02/07/18 08:00 Pulse Ox 92 L 02/07/18 08:00 Intake & Output 02/06/18 02/06/18 02/07/18 11:59 23:59 11:59 Intake Total 834 1003 Output Total 1150 400 Balance -316 603 Weight 109.769 kg Intake: IV 834 943 Oral 60 Output: Urine 1150 400 Other: Urine Color Yellow Yellow Urine Appearance Clear Clear Urine Odor Normal Voiding Methods Urinal Urinal General: Alert, Oriented x3, Cooperative, No acute distress HEENT: Atraumatic, EOMI, Mucous membr. moist/pink Neck: Supple. denies: JVD, Thyromegaly Lungs: Clear to auscultation, Normal air movement Cardiovascular: Regular rate, Normal S1, Normal S2 Abdomen: Soft, Tenderness (Mild in mid-abdomen over previous hernia repair), Other (positive for distension) Skin: denies: Rashes, Breakdown Neurological: Normal speech, Cranial nerves 3-12 NL Psych/Mental Status: Mental status NL, Mood NL - Results Results: Laboratory Results WBC 6.31 k/cumm (4.4-10.8) 02/07/18 07:00 RBC 4.77 m/cumm (4.50-6.00) 02/07/18 07:00 Hgb 14.2 g/dL (13.5-17.5) 02/07/18 07:00 Hct 42.1 % (40.0-50.0) 02/07/18 07:00 MCV 88.3 fL (80-95) 02/07/18 07:00 MCH 29.8 pg (27.0-33.0) 02/07/18 07:00 MCHC 33.7 g/dL (32.0-36.0) 02/07/18 07:00 RDW 14.3 % (11.8-14.1) H 02/07/18 07:00 Plt Count 196 x1000/uL (130-400) 02/07/18 07:00 MPV 10.4 fL (8.0-11.0) 02/07/18 07:00 Immature Gran % 0.2 02/06/18 12:53 Neutrophils % 76.0 02/06/18 12:53 Lymphocytes % 11.0 02/06/18 12:53 Monocytes % 10.2 02/06/18 12:53 Eosinophils % 2.3 02/06/18 12:53 Basophils % 0.3 02/06/18 12:53 Absolute Neutrophils 6.54 k/cumm (1.2-6.7) 02/06/18 12:53 Absolute Lymphocytes 0.95 k/cumm (1.2-3.4) L 02/06/18 12:53 Absolute Monocytes 0.88 k/cumm (0.11-0.7) H 02/06/18 12:53 Absolute Eosinophils 0.20 k/cumm (0.0-0.7) 02/06/18 12:53 Absolute Basophils 0.03 k/cumm (0.0-0.2) 02/06/18 12:53 Sodium 144 mmol/L (136-145) 02/07/18 07:00 Potassium 3.7 mmol/L (3.5-5.1) 02/07/18 07:00 Chloride 108 mmol/L (98-107) H 02/07/18 07:00 Carbon Dioxide 24.5 mmol/L (21.0-32.0) 02/07/18 07:00 Anion Gap 11.5 mmol/L (3-11) H 02/07/18 07:00 BUN 12 mg/dL (7-18) 02/07/18 07:00 Creatinine 1.00 mg/dL (0.70-1.30) 02/07/18 07:00 Estimated GFR/1.73 m2 >= 60.00 (mL/min/1.73m2) 02/07/18 07:00 Glucose 116 mg/dL (70-100) H 02/07/18 07:00 Calcium 8.6 mg/dL (8.5-10.1) 02/07/18 07:00 Magnesium 2.1 mg/dL (1.8-2.4) 02/06/18 12:53 Total Bilirubin 1.1 mg/dL (0.2-1.0) H 02/07/18 07:00 Conjugated Bilirubin 0.28 mg/dL (0.00-0.20) H 02/07/18 07:00 AST 18 U/L (15-37) 02/07/18 07:00 ALT 22 U/L (12-78) 02/07/18 07:00 Alkaline Phosphatase 132 U/L (46-116) H 02/07/18 07:00 Total Protein 6.7 g/dL (6.4-8.2) 02/07/18 07:00 Albumin 3.7 g/dL (3.4-5.0) 02/07/18 07:00 Lipase 107 U/L (73-393) 02/06/18 12:53 Urine Color Yellow (Yellow) 02/06/18 13:10 Urine Clarity Clear 02/06/18 13:10 Urine pH 6.0 (5-8) 02/06/18 13:10 Ur Specific [place] 1.020 (1.005-1.025) 02/06/18 13:10 Urine Protein 30 mg/dL (Negative) H 02/06/18 13:10 Urine Ketones Negative mg/dL (Negative) 02/06/18 13:10 Urine Blood Trace-intact (Negative) H 02/06/18 13:10 Urine Nitrite Negative (Negative) 02/06/18 13:10 Urine Bilirubin Negative (Negative) 02/06/18 13:10 Urine Urobilinogen 1.0 EU/dL (Up TO 0.2) H 02/06/18 13:10 Ur Leukocyte Esterase Negative (Negative) 02/06/18 13:10 Urine RBC 0-2 (0-2) 02/06/18 13:10 Urine WBC 0-2 HPF (0-5) 02/06/18 13:10 Ur Epithelial Cells Rare HPF (Negative) 02/06/18 13:10 Urine Crystals Negative HPF (Negative) 02/06/18 13:10 Urine Bacteria Negative HPF (Negative) 02/06/18 13:10 Urine Casts 0-2 hyaline LPF (Negative) 02/06/18 13:10 Urine Mucus Trace (Negative) 02/06/18 13:10 Urine Other Many spermatozoa (Negative) 02/06/18 13:10 Ur Culture Indicated? No 02/06/18 13:10 Urine Glucose Negative mg/dL (Negative) 02/06/18 13:10
--- NOTE | 2018-02-07 12:12 | NUR.NOTE ---
Nursing Note: patient rings on toilet feels he needs a BM no result in the hat, smears on the toilet paper, feels some pain afterwards, encouraged to slow down on oral intake at this time, told to ring if he feels sick
--- NOTE | 2018-02-07 12:20 | PDOC.CMIN ---
Date of Service: 02/07/18 Time of Service: 12:21 Care Management Initial Assess REASON FOR HOSPITALIZATION:: Small bowel obstruction. PAST MEDICAL HISTORY/PAST SURGICAL HISTORY:: Diabetes, hypertension, hyperlipidemia, obstructive sleep apnea, coronary artery disease, COPD. Surgical hx: herniorraphy. PREVIOUS FUNCTIONAL STATUS/SOCIAL/FAMILY SUPPORTS:: Nader resides with his , Nelia, in his own home in [facility]. Romero and Nelia have seven adult children between them some of whom live locally. 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 CURRENT FUNCTIONAL STATUS:: Corona is sitting up in his chair with , Nelia, at bedside when CM visits. He is engaged in conversation, makes good eye contact and is talkative. Corona reports that he is feeling better today than he did yesterday. He is currently receiving IV fluids and is NPO. He denies concerns regarding discharge. ADVANCE DIRECTIVES:: On file at [facility]. Has patient been provided with information about the portal?: Yes Did the patient sign up for the portal?: No CODE STATUS:: Full Code INSURANCE COVERAGE / FINANCIAL ISSUES:: Medicare. CURRENT HOME/COMMUNITY SERVICES/EQUIPMENT:: No current home services. PRIMARY CARE PHYSICIAN:: Dr. Satnam Barnes. POTENTIAL DISCHARGE NEEDS:: Follow up appointment with MD. PATIENT/FAMILY EDUCATION NEEDS:: Discharge education, limitations and follow up plan of care. Ask Me Three discussion. ANTICIPATED BARRIERS TO DISCHARGE:: No anticipated barriers to discharge. TRANSPORTATION:: Corona with transport home via private vehicle with , Nelia, when medically ready per MD. PLAN:: Corona will discharge home via private vehicle when medically ready per MD. Anticipate pt will discharge home with no services and follow up with MD. CM to continue to provide support to patient and care team, discharge planning and disposition.
--- NOTE | 2018-02-07 12:45 | INITIAL_ITS ---
Date of Service: 02/07/18 Time of Service: 12:21 Care Management Initial Assess REASON FOR HOSPITALIZATION:: Small bowel obstruction. PAST MEDICAL HISTORY/PAST SURGICAL HISTORY:: Diabetes, hypertension, hyperlipidemia, obstructive sleep apnea, coronary artery disease, COPD. Surgical hx: herniorraphy. PREVIOUS FUNCTIONAL STATUS/SOCIAL/FAMILY SUPPORTS:: Nader resides with his , Nelia, in his own home in [facility]. Romero and Nelia have seven adult children between them some of whom live locally. 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 CURRENT FUNCTIONAL STATUS:: Corona is sitting up in his chair with , Nelia, at bedside when CM visits. He is engaged in conversation, makes good eye contact and is talkative. Corona reports that he is feeling better today than he did yesterday. He is currently receiving IV fluids and is NPO. He denies concerns regarding discharge. ADVANCE DIRECTIVES:: On file at [facility]. Has patient been provided with information about the portal?: Yes Did the patient sign up for the portal?: No CODE STATUS:: Full Code INSURANCE COVERAGE / FINANCIAL ISSUES:: Medicare. CURRENT HOME/COMMUNITY SERVICES/EQUIPMENT:: No current home services. PRIMARY CARE PHYSICIAN:: Dr. Satnam Barnes. POTENTIAL DISCHARGE NEEDS:: Follow up appointment with MD. PATIENT/FAMILY EDUCATION NEEDS:: Discharge education, limitations and follow up plan of care. Ask Me Three discussion. ANTICIPATED BARRIERS TO DISCHARGE:: No anticipated barriers to discharge. TRANSPORTATION:: Corona with transport home via private vehicle with , Nelia, when medically ready per MD. PLAN:: Corona will discharge home via private vehicle when medically ready per MD. Anticipate pt will discharge home with no services and follow up with MD. CM to continue to provide support to patient and care team, discharge planning and disposition.
--- NOTE | 2018-02-07 15:05 | PHARADMIT ---
Addendum entered by Aleajndra Holland 02/08/18 12:01: Pharmacy Note Subjective Pt. feeling better per CM note Objective VS-okay K+3.4 h/h-13.3/39.6 Assessment no med changes Plan continue to watch VS, labs and for med changes Original Note: Admission Pharmacy Clinical Review PARTIAL SMALL BOWEL OBSTRUCTION Code Status Full Code Current Weight 109.769 kg Renally Cleared and Narrow Therapeutic Index Meds CRCL ~65ML/MIN QTc Value / Action Taken NA BP Control, Fever 103/72 AFEBRILE Electrolytes reviewed OK DVT Prophylaxis ENOXAPARIN Opiate Usage / Scheduled Bowel Regimen Ordered PRN/NO Plt/SCr for Heparin / Enoxaparin 196/1.00 INR for Warfarin NA H/H stable, WBC/Bands 14.2/42.1 WBC 6.31 Antibiotic appropriateness NA Cultures and Sensitivities LACTOFERRIN PENDING Surgical ABX d/c within 24 hr NA DM control / Insulin Dosing FS 117, INSULIN ASPART SS Heart Failure (Check EF%) (ALECIA's, B-Block, Diuretics) NA IV to PO Switch IVF AND IV PAIN MEDS Home Meds Reviewed Home Meds Not Ordered Aspirin 325 mg PO DAILY tab-cap NS 12/19/12 Atorvastatin Calcium 80 mg PO DAILY tab-cap NS 12/19/12 Metformin HCl 1,000 mg PO BID tab-cap NS 12/19/12 Potassium Chloride Liquid [K-Bee] 20 meq PO BID packet NS 12/19/12 Penicillin V Potassium 1 tab PO BID 01/09/13 Cholecalciferol (Vitamin D3) [Vitamin D3] 1 cap PO DAILY 08/22/17 Comments
[2018-02-08] VITALS (9 sets, daily range): BP systolic 131–158; BP diastolic 64–75; PULSE 55–66; RESP 16–19; TEMP 35.9–36.5; O2SAT 92–97
[2018-02-08] MEDS: POTASSIUM CHLORIDE/0.9% NACL 1,000 ML 125 MEQ IV (06:05)
--- NOTE | 2018-02-08 06:39 | PDOC.PROG ---
Assessment/Plan - Assessment/Plan (1) Small bowel obstruction, partial Assessment: SBO appears to be improving. Patient reports passing large amount of flatus and 2 liquid BM overnight. Patient reports improvement in abdominal distension and discomfort. Plan: 1. Advance diet to clear liquid today with diabetic restriction. 2. Encourage ambulation. 3. Pain management with non-narcotics as tolerated. 4. DVT prophylaxis: Lovenox, SCDs and ambulation (2) Diarrhea Assessment: 6 month history of diarrhea with diarrhea the day prior to admission. Plan: Follow up stool studies now that the patient is having BM. Outpt workup for chronic intermittent diarrhea. (3) Diabetes Assessment: Controlled at home with diet and metformin. Plan: Hold metformin in the hospital. Accucheck Q6 hrs with insulin sliding scale. Diabetic controlled diet. (4) Hypertension Assessment: Controlled with amlodipine, losartan, Bystolic, and Lasix at home. Plan: Continue home medication. (5) Hyperlipidemia Assessment: Controlled with statin at home. Plan: Resume statin at discharge. (6) Obstructive sleep apnea Assessment: Uses CPAP at home. Plan: Continue CPAP during sleep. (7) Coronary artery disease Assessment: On aspirin at home. Plan: Held in case the patient required surgery. Resume aspirin upon discharge. (8) COPD (chronic obstructive pulmonary disease) Assessment: On Symbicort at home. Plan: Continue Symbicort. History of Present Illness - History of Present Illness Chief Complaint: Small bowel obstruction History of Present Illness: Feeling much improved today Abdominal distension improving Abdominal discomfort improving Passing large amount of flatus per patient 2 BM per patient overnight, liquid Afebrile, no nausea or vomiting Review of Systems - Review of Systems Constitutional: denies: Fever, Chills Respiratory: denies: Cough, Shortness of Breath, Hemoptysis Cardiovascular: denies: Chest Pain, Palpitations Gastrointestinal: Abdominal Pain (Minimal, improving), Diarrhea (2 liquid BM overnight). denies: Nausea, Vomiting, Melena, Hematochezia Genitourinary: denies: Dysuria, Frequency, Incontinence Skin: denies: Rash, Lesions Neurological: denies: Weakness, Numbness, Change in Speech, Confusion - Medications/Allergies Allergies/Adverse Reactions: Allergies Allergy/AdvReac Type Severity Reaction Status Date / Time oxycodone AdvReac Intermediate Nausea Unverified 02/06/18 12:48 Medications: Current Medications Acetaminophen (Tylenol) 650 mg PO Q6H PRN PRN PRN Reason: Pain or Fever Albuterol Sulfate (Ventolin Hfa) 1 puff IH Q6H PRN PRN Amlodipine Besylate (Norvasc) 10 mg PO BID [facility] Last Admin: 02/07/18 19:42 Dose: 10 mg Benzocaine/Menthol (Cepacol Sugar Free) 1 each SUC Q6H PRN PRN Budesonide/Formoterol Fumarate (Symbicort 160/4.5 Mcg Inhaler) 2 puff IH BID [facility] Last Admin: 02/07/18 19:42 Dose: 2 puff Bupropion HCl (Wellbutrin Sr) 150 mg PO BID [facility] Last Admin: 02/07/18 19:42 Dose: 150 mg Dextrose (Insta-Glucose) 0 gm PO DIRECTED PRN Dextrose/Water () 0 gm IVP DIRECTED PRN Dimethicone/Zinc Oxide (Tono Protect Cream) 0 gm TP PRN PRN Doxazosin Mesylate (Cardura) 4 mg PO DAILY [facility] Last Admin: 02/07/18 08:21 Dose: 4 mg Enoxaparin Sodium (Lovenox) 40 mg SC Q24H [facility] Furosemide (Lasix) 40 mg PO BID@0830,1600 [facility] Last Admin: 02/07/18 16:20 Dose: 40 mg Potassium Chloride/Sodium Chloride (Kcl 40 Meq/Ns) 1,000 mls @ 125 mls/hr IV INFUSION [facility] Last Admin: 02/08/18 06:05 Dose: 125 mls/hr IV Miscellaneous Supplies () 1 each IV DIRECTED [facility] Insulin Aspart (Novolog Flexpen) 0 units SC Q6H [facility] PRN Reason: Protocol Last Admin: 02/08/18 00:15 Dose: Not Given Ketorolac Tromethamine (Toradol Injection) 30 mg IVP Q6H PRN PRN PRN Reason: Pain Stop: 02/11/18 16:06 Losartan Potassium (Cozaar) 100 mg PO DAILY [facility] Last Admin: 02/07/18 08:21 Dose: 100 mg Morphine Sulfate () 2 mg IVP Q3H PRN PRN PRN Reason: Pain Nebivolol (Bystolic) 20 mg PO DAILY [facility] Last Admin: 02/07/18 08:21 Dose: 20 mg Ondansetron HCl (Zofran Injection) 4 mg IVP Q4H PRN PRN Sodium Chloride (Saline Flush 10 Ml Syringe) 0 ml IVP PRN PRN Last Admin: 02/07/18 11:09 Dose: 10 ml Triamcinolone Acetonide (Kenalog 0.1% Cream) 0 gm TP BID PRN PRN Objective - Exam Vitals and I&O: Vital Signs Temp 36.3 C L 02/08/18 01:00 Pulse 61 02/08/18 01:00 Resp 18 02/08/18 01:00 BP 131/64 02/08/18 01:00 Pulse Ox 93 L 02/08/18 01:00 Intake & Output 02/07/18 02/07/18 02/08/18 11:59 23:59 11:59 Intake Total 1003 1652 1460 Output Total 690 008 8420 Balance 603 742 410 Intake: IV 943 1532 1340 Oral 60 120 120 Output: Urine 115 198 5347 Other: Urine Color Yellow Yellow Yellow Urine Appearance Clear Clear Clear Urine Odor Normal None None Stool Size Small Stool Characteristics Soft Formed Voiding Methods Urinal Urinal Urinal General: Alert, Oriented x3, Cooperative, No acute distress HEENT: Atraumatic, EOMI Neck: Supple. denies: JVD, Thyromegaly Lungs: Clear to auscultation, Normal air movement Cardiovascular: Regular rate, Normal S1, Normal S2 Abdomen: Soft, Tenderness (Mild in mid-abdomen) Skin: denies: Rashes, Breakdown Neurological: Normal speech, Cranial nerves 3-12 NL Psych/Mental Status: Mental status NL, Mood NL - Results Results: Laboratory Results WBC 6.31 k/cumm (4.4-10.8) 02/07/18 07:00 RBC 4.77 m/cumm (4.50-6.00) 02/07/18 07:00 Hgb 14.2 g/dL (13.5-17.5) 02/07/18 07:00 Hct 42.1 % (40.0-50.0) 02/07/18 07:00 MCV 88.3 fL (80-95) 02/07/18 07:00 MCH 29.8 pg (27.0-33.0) 02/07/18 07:00 MCHC 33.7 g/dL (32.0-36.0) 02/07/18 07:00 RDW 14.3 % (11.8-14.1) H 02/07/18 07:00 Plt Count 196 x1000/uL (130-400) 02/07/18 07:00 MPV 10.4 fL (8.0-11.0) 02/07/18 07:00 Immature Gran % 0.2 02/06/18 12:53 Neutrophils % 76.0 02/06/18 12:53 Lymphocytes % 11.0 02/06/18 12:53 Monocytes % 10.2 02/06/18 12:53 Eosinophils % 2.3 02/06/18 12:53 Basophils % 0.3 02/06/18 12:53 Absolute Neutrophils 6.54 k/cumm (1.2-6.7) 02/06/18 12:53 Absolute Lymphocytes 0.95 k/cumm (1.2-3.4) L 02/06/18 12:53 Absolute Monocytes 0.88 k/cumm (0.11-0.7) H 02/06/18 12:53 Absolute Eosinophils 0.20 k/cumm (0.0-0.7) 02/06/18 12:53 Absolute Basophils 0.03 k/cumm (0.0-0.2) 02/06/18 12:53 Sodium 144 mmol/L (136-145) 02/07/18 07:00 Potassium 3.7 mmol/L (3.5-5.1) 02/07/18 07:00 Chloride 108 mmol/L (98-107) H 02/07/18 07:00 Carbon Dioxide 24.5 mmol/L (21.0-32.0) 02/07/18 07:00 Anion Gap 11.5 mmol/L (3-11) H 02/07/18 07:00 BUN 12 mg/dL (7-18) 02/07/18 07:00 Creatinine 1.00 mg/dL (0.70-1.30) 02/07/18 07:00 Estimated GFR/1.73 m2 >= 60.00 (mL/min/1.73m2) 02/07/18 07:00 Glucose 116 mg/dL (70-100) H 02/07/18 07:00 Calcium 8.6 mg/dL (8.5-10.1) 02/07/18 07:00 Magnesium 2.1 mg/dL (1.8-2.4) 02/06/18 12:53 Total Bilirubin 1.1 mg/dL (0.2-1.0) H 02/07/18 07:00 Conjugated Bilirubin 0.28 mg/dL (0.00-0.20) H 02/07/18 07:00 AST 18 U/L (15-37) 02/07/18 07:00 ALT 22 U/L (12-78) 02/07/18 07:00 Alkaline Phosphatase 132 U/L (46-116) H 02/07/18 07:00 Total Protein 6.7 g/dL (6.4-8.2) 02/07/18 07:00 Albumin 3.7 g/dL (3.4-5.0) 02/07/18 07:00 Lipase 107 U/L (73-393) 02/06/18 12:53 Urine Color Yellow (Yellow) 02/06/18 13:10 Urine Clarity Clear 02/06/18 13:10 Urine pH 6.0 (5-8) 02/06/18 13:10 Ur Specific [place] 1.020 (1.005-1.025) 02/06/18 13:10 Urine Protein 30 mg/dL (Negative) H 02/06/18 13:10 Urine Ketones Negative mg/dL (Negative) 02/06/18 13:10 Urine Blood Trace-intact (Negative) H 02/06/18 13:10 Urine Nitrite Negative (Negative) 02/06/18 13:10 Urine Bilirubin Negative (Negative) 02/06/18 13:10 Urine Urobilinogen 1.0 EU/dL (Up TO 0.2) H 02/06/18 13:10 Ur Leukocyte Esterase Negative (Negative) 02/06/18 13:10 Urine RBC 0-2 (0-2) 02/06/18 13:10 Urine WBC 0-2 HPF (0-5) 02/06/18 13:10 Ur Epithelial Cells Rare HPF (Negative) 02/06/18 13:10 Urine Crystals Negative HPF (Negative) 02/06/18 13:10 Urine Bacteria Negative HPF (Negative) 02/06/18 13:10 Urine Casts 0-2 hyaline LPF (Negative) 02/06/18 13:10 Urine Mucus Trace (Negative) 02/06/18 13:10 Urine Other Many spermatozoa (Negative) 02/06/18 13:10 Ur Culture Indicated? No 02/06/18 13:10 Urine Glucose Negative mg/dL (Negative) 02/06/18 13:10
[2018-02-08 07:15] LABS: HCT 39.6 % (40.0-50.0); HGB 13.3 g/dL (13.5-17.5); Mean Corp. HGB Concentration 33.6 g/dL (32.0-36.0); Mean Corpuscular Hemoglobin 29.8 pg (27.0-33.0); Mean Corpuscular Volume 88.6 fL (80-95); Mean Platelet Volume 10.6 fL (8.0-11.0); Platelet Count 163 x1000/uL (130-400); RBC 4.47 m/cumm (4.50-6.00); RBC Distribution Width 14.2 % (11.8-14.1); White Blood Cell Count 4.76 k/cumm (4.4-10.8)
[2018-02-08 07:31] LABS: Anion Gap 12.3 mmol/L (3-11); BUN 9 mg/dL (7-18); CO2 25.7 mmol/L (21.0-32.0); CREATININE 0.87 mg/dL (0.70-1.30); Calcium 8.4 mg/dL (8.5-10.1); Chloride 106 mmol/L (98-107); Glucose 103 mg/dL (70-100); Potassium 3.4 mmol/L (3.5-5.1); Sodium 144 mmol/L (136-145)
[2018-02-08] MEDS: Losartan 50 MG TAB 100 MG PO (08:16)
[2018-02-08] MEDS: buPROPion-CR 150 MG TABCR PO ×2 (08:16→19:36)
[2018-02-08] MEDS: amLODIPine 10 MG TAB PO ×2 (08:17→19:36)
[2018-02-08] MEDS: Furosemide 80 MG TAB 40 MG PO ×2 (08:18→16:19)
[2018-02-08] MEDS: Budesonide/Formoterol 160/4.5 6 GM 60 PUFF INH IH ×2 (09:15→19:36)
[2018-02-08] MEDS: Normal Saline Flush 10 ML SYR IVP (09:53)
[2018-02-08] MEDS: Enoxaparin 40 MG/0.4 ML SYR SC (09:53)
--- NOTE | 2018-02-08 11:22 | PDOC.CMPRO ---
Date of Service: 02/08/18 Time of Service: 11:22 Care Management Progress Note S/O: Corona is sitting up in his chair when CM visits this morning. He reports that he is feeling better today and is looking forward to going home. His diet has been upgraded to clear liquids and he is reportedly tolerating them well. He continues to be monitored on telemetry. Plan is unchanged at this time. A: 72 year old male admitted for a partial small bowel obstruction. P: Corona will discharge home when medically cleared by MD with no anticipated services. Pt will follow up with MD and plan of care as prescribed. Corona will transport home via private vehicle with his , Nelia, when medically ready. CM to continue to offer support to patient and care team, discharge planning and disposition.
[2018-02-08] MEDS: Insulin Aspart 300 UNITS/3 ML PEN SC (12:00)
--- NOTE | 2018-02-08 16:29 | PROG.BLANK ---
Date of Service: 02/08/18 Time of Service: 16:10 Progress Note PAD #2 for SBO S: Did well with clear liquids. Passing flatus and had a soft formed BM O: VSS AFeb ABD: soft, ND, NTTP, normoactive BS A: 72 year old male with SBO on admission most likely secondary to adhesions P: If he tolerates a soft diet then will discharge to home tomorrow
[2018-02-08] MEDS: metFORMIN 500 MG TAB 1000 MG PO (19:36)
--- NOTE | 2018-02-09 06:37 | PDOC.PROG ---
Assessment/Plan - Assessment/Plan (1) Small bowel obstruction, partial Assessment: resolved Discussed diagnosis again and the fact that this may happen again. Plan: D/C home today of soft diet for 2 weeks then back to his heart healthy diabetic diet. Follow up with PCP as outpatient Follow up with surgery as needed History of Present Illness - History of Present Illness Chief Complaint: PAD #3 for SBO History of Present Illness: Doing well. Tolerated a regular diet last night. Would like to go home. Review of Systems - Review of Systems Constitutional: denies: Fever, Chills, Sweats, Weakness, Malaise, Other - Medications/Allergies Allergies/Adverse Reactions: Allergies Allergy/AdvReac Type Severity Reaction Status Date / Time oxycodone AdvReac Intermediate Nausea Unverified 02/06/18 12:48 Medications: Current Medications Acetaminophen (Tylenol) 650 mg PO Q6H PRN PRN PRN Reason: Pain or Fever Albuterol Sulfate (Ventolin Hfa) 1 puff IH Q6H PRN PRN Amlodipine Besylate (Norvasc) 10 mg PO BID [facility] Last Admin: 02/08/18 19:36 Dose: 10 mg Atorvastatin Calcium (Lipitor) 80 mg PO DAILY [facility] Budesonide/Formoterol Fumarate (Symbicort 160/4.5 Mcg Inhaler) 2 puff IH BID [facility] Last Admin: 02/08/18 19:36 Dose: 2 puff Bupropion HCl (Wellbutrin Sr) 150 mg PO BID [facility] Last Admin: 02/08/18 19:36 Dose: 150 mg Dextrose (Insta-Glucose) 0 gm PO DIRECTED PRN Dextrose/Water () 0 gm IVP DIRECTED PRN Dimethicone/Zinc Oxide (Tono Protect Cream) 0 gm TP PRN PRN Doxazosin Mesylate (Cardura) 4 mg PO DAILY [facility] Last Admin: 02/08/18 08:17 Dose: 4 mg Enoxaparin Sodium (Lovenox) 40 mg SC Q24H [facility] Last Admin: 02/08/18 09:53 Dose: 40 mg Furosemide (Lasix) 40 mg PO BID@0830,1600 [facility] Last Admin: 02/08/18 16:19 Dose: 40 mg IV Miscellaneous Supplies () 1 each IV DIRECTED [facility] Insulin Aspart (Novolog Flexpen) 0 units SC 0800,1200,1700 [facility] PRN Reason: Protocol Last Admin: 02/08/18 16:58 Dose: Not Given Ketorolac Tromethamine (Toradol Injection) 30 mg IVP Q6H PRN PRN PRN Reason: Pain Stop: 02/11/18 16:06 Losartan Potassium (Cozaar) 100 mg PO DAILY [facility] Last Admin: 02/08/18 08:16 Dose: 100 mg Metformin HCl (Glucophage) 1,000 mg PO BID [facility] Last Admin: 02/08/18 19:36 Dose: 1,000 mg Nebivolol (Bystolic) 20 mg PO DAILY [facility] Last Admin: 02/08/18 08:17 Dose: 20 mg Ondansetron HCl (Zofran Injection) 4 mg IVP Q4H PRN PRN Sodium Chloride (Saline Flush 10 Ml Syringe) 0 ml IVP PRN PRN Last Admin: 02/08/18 09:53 Dose: 10 ml Triamcinolone Acetonide (Kenalog 0.1% Cream) 0 gm TP BID PRN PRN Objective - Exam Vitals and I&O: Vital Signs Temp 36.2 C L 02/08/18 23:44 Pulse 60 02/08/18 23:44 Resp 19 02/08/18 23:44 BP 136/75 02/08/18 23:44 Pulse Ox 95 02/08/18 23:44 Intake & Output 02/08/18 02/08/18 02/09/18 11:59 23:59 11:59 Intake Total 2060 600 Output Total 1300 600 Balance 760 0 Intake: IV 1340 Oral 720 600 Output: Urine 1300 600 Other: Urine Color Yellow Yellow Urine Appearance Clear Clear Clear Urine Odor Normal Stool Size Small Moderate Stool Characteristics Soft Soft Formed Brown Voiding Methods Urinal Urinal General: Alert, Oriented x3, Cooperative HEENT: Atraumatic Neck: Supple Lungs: Clear to auscultation Cardiovascular: Regular rate Abdomen: Normal bowel sounds, Soft - Results Results: Laboratory Results WBC 4.76 k/cumm (4.4-10.8) 02/08/18 06:30 RBC 4.47 m/cumm (4.50-6.00) L 02/08/18 06:30 Hgb 13.3 g/dL (13.5-17.5) L 02/08/18 06:30 Hct 39.6 % (40.0-50.0) L 02/08/18 06:30 MCV 88.6 fL (80-95) 02/08/18 06:30 MCH 29.8 pg (27.0-33.0) 02/08/18 06:30 MCHC 33.6 g/dL (32.0-36.0) 02/08/18 06:30 RDW 14.2 % (11.8-14.1) H 02/08/18 06:30 Plt Count 163 x1000/uL (130-400) 02/08/18 06:30 MPV 10.6 fL (8.0-11.0) 02/08/18 06:30 Immature Gran % 0.2 02/06/18 12:53 Neutrophils % 76.0 02/06/18 12:53 Lymphocytes % 11.0 02/06/18 12:53 Monocytes % 10.2 02/06/18 12:53 Eosinophils % 2.3 02/06/18 12:53 Basophils % 0.3 02/06/18 12:53 Absolute Neutrophils 6.54 k/cumm (1.2-6.7) 02/06/18 12:53 Absolute Lymphocytes 0.95 k/cumm (1.2-3.4) L 02/06/18 12:53 Absolute Monocytes 0.88 k/cumm (0.11-0.7) H 02/06/18 12:53 Absolute Eosinophils 0.20 k/cumm (0.0-0.7) 02/06/18 12:53 Absolute Basophils 0.03 k/cumm (0.0-0.2) 02/06/18 12:53 Sodium 144 mmol/L (136-145) 02/08/18 06:30 Potassium 3.4 mmol/L (3.5-5.1) L 02/08/18 06:30 Chloride 106 mmol/L (98-107) 02/08/18 06:30 Carbon Dioxide 25.7 mmol/L (21.0-32.0) 02/08/18 06:30 Anion Gap 12.3 mmol/L (3-11) H 02/08/18 06:30 BUN 9 mg/dL (7-18) 02/08/18 06:30 Creatinine 0.87 mg/dL (0.70-1.30) 02/08/18 06:30 Estimated GFR/1.73 m2 >= 60.00 (mL/min/1.73m2) 02/08/18 06:30 Glucose 103 mg/dL (70-100) H 02/08/18 06:30 Calcium 8.4 mg/dL (8.5-10.1) L 02/08/18 06:30 Magnesium 2.0 mg/dL (1.8-2.4) 02/08/18 06:30 Total Bilirubin 1.1 mg/dL (0.2-1.0) H 02/07/18 07:00 Conjugated Bilirubin 0.28 mg/dL (0.00-0.20) H 02/07/18 07:00 AST 18 U/L (15-37) 02/07/18 07:00 ALT 22 U/L (12-78) 02/07/18 07:00 Alkaline Phosphatase 132 U/L (46-116) H 02/07/18 07:00 Total Protein 6.7 g/dL (6.4-8.2) 02/07/18 07:00 Albumin 3.7 g/dL (3.4-5.0) 02/07/18 07:00 Lipase 107 U/L (73-393) 02/06/18 12:53 Urine Color Yellow (Yellow) 02/06/18 13:10 Urine Clarity Clear 02/06/18 13:10 Urine pH 6.0 (5-8) 02/06/18 13:10 Ur Specific [place] 1.020 (1.005-1.025) 02/06/18 13:10 Urine Protein 30 mg/dL (Negative) H 02/06/18 13:10 Urine Ketones Negative mg/dL (Negative) 02/06/18 13:10 Urine Blood Trace-intact (Negative) H 02/06/18 13:10 Urine Nitrite Negative (Negative) 02/06/18 13:10 Urine Bilirubin Negative (Negative) 02/06/18 13:10 Urine Urobilinogen 1.0 EU/dL (Up TO 0.2) H 02/06/18 13:10 Ur Leukocyte Esterase Negative (Negative) 02/06/18 13:10 Urine RBC 0-2 (0-2) 02/06/18 13:10 Urine WBC 0-2 HPF (0-5) 02/06/18 13:10 Ur Epithelial Cells Rare HPF (Negative) 02/06/18 13:10 Urine Crystals Negative HPF (Negative) 02/06/18 13:10 Urine Bacteria Negative HPF (Negative) 02/06/18 13:10 Urine Casts 0-2 hyaline LPF (Negative) 02/06/18 13:10 Urine Mucus Trace (Negative) 02/06/18 13:10 Urine Other Many spermatozoa (Negative) 02/06/18 13:10 Ur Culture Indicated? No 02/06/18 13:10 Urine Glucose Negative mg/dL (Negative) 02/06/18 13:10 Stool Campylobacter PCR Cancelled 02/06/18 Unknown Stool Salmonella PCR Cancelled 02/06/18 Unknown Stool Shigella PCR Cancelled 02/06/18 Unknown Shiga Toxin (PCR) Cancelled 02/06/18 Unknown
--- NOTE | 2018-02-09 06:47 | PDOC.PROG_ITS ---
Assessment/Plan - Assessment/Plan (1) Small bowel obstruction, partial Assessment: resolved Discussed diagnosis again and the fact that this may happen again. Plan: D/C home today of soft diet for 2 weeks then back to his heart healthy diabetic diet. Follow up with PCP as outpatient Follow up with surgery as needed History of Present Illness - History of Present Illness Chief Complaint: PAD #3 for SBO History of Present Illness: Doing well. Tolerated a regular diet last night. Would like to go home. Review of Systems - Review of Systems Constitutional: denies: Fever, Chills, Sweats, Weakness, Malaise, Other - Medications/Allergies Allergies/Adverse Reactions: Allergies Allergy/AdvReac Type Severity Reaction Status Date / Time oxycodone AdvReac Intermediate Nausea Unverified 02/06/18 12:48 Medications: Current Medications Acetaminophen (Tylenol) 650 mg PO Q6H PRN PRN PRN Reason: Pain or Fever Albuterol Sulfate (Ventolin Hfa) 1 puff IH Q6H PRN PRN Amlodipine Besylate (Norvasc) 10 mg PO BID [facility] Last Admin: 02/08/18 19:36 Dose: 10 mg Atorvastatin Calcium (Lipitor) 80 mg PO DAILY [facility] Budesonide/Formoterol Fumarate (Symbicort 160/4.5 Mcg Inhaler) 2 puff IH BID [facility] Last Admin: 02/08/18 19:36 Dose: 2 puff Bupropion HCl (Wellbutrin Sr) 150 mg PO BID [facility] Last Admin: 02/08/18 19:36 Dose: 150 mg Dextrose (Insta-Glucose) 0 gm PO DIRECTED PRN Dextrose/Water () 0 gm IVP DIRECTED PRN Dimethicone/Zinc Oxide (Tono Protect Cream) 0 gm TP PRN PRN Doxazosin Mesylate (Cardura) 4 mg PO DAILY [facility] Last Admin: 02/08/18 08:17 Dose: 4 mg Enoxaparin Sodium (Lovenox) 40 mg SC Q24H [facility] Last Admin: 02/08/18 09:53 Dose: 40 mg Furosemide (Lasix) 40 mg PO BID@0830,1600 [facility] Last Admin: 02/08/18 16:19 Dose: 40 mg IV Miscellaneous Supplies () 1 each IV DIRECTED [facility] Insulin Aspart (Novolog Flexpen) 0 units SC 0800,1200,1700 [facility] PRN Reason: Protocol Last Admin: 02/08/18 16:58 Dose: Not Given Ketorolac Tromethamine (Toradol Injection) 30 mg IVP Q6H PRN PRN PRN Reason: Pain Stop: 02/11/18 16:06 Losartan Potassium (Cozaar) 100 mg PO DAILY [facility] Last Admin: 02/08/18 08:16 Dose: 100 mg Metformin HCl (Glucophage) 1,000 mg PO BID [facility] Last Admin: 02/08/18 19:36 Dose: 1,000 mg Nebivolol (Bystolic) 20 mg PO DAILY [facility] Last Admin: 02/08/18 08:17 Dose: 20 mg Ondansetron HCl (Zofran Injection) 4 mg IVP Q4H PRN PRN Sodium Chloride (Saline Flush 10 Ml Syringe) 0 ml IVP PRN PRN Last Admin: 02/08/18 09:53 Dose: 10 ml Triamcinolone Acetonide (Kenalog 0.1% Cream) 0 gm TP BID PRN PRN Objective - Exam Vitals and I&O: Vital Signs Temp 36.2 C L 02/08/18 23:44 Pulse 60 02/08/18 23:44 Resp 19 02/08/18 23:44 BP 136/75 02/08/18 23:44 Pulse Ox 95 02/08/18 23:44 Intake & Output 02/08/18 02/08/18 02/09/18 11:59 23:59 11:59 Intake Total 2060 600 Output Total 1300 600 Balance 760 0 Intake: IV 1340 Oral 720 600 Output: Urine 1300 600 Other: Urine Color Yellow Yellow Urine Appearance Clear Clear Clear Urine Odor Normal Stool Size Small Moderate Stool Characteristics Soft Soft Formed Brown Voiding Methods Urinal Urinal General: Alert, Oriented x3, Cooperative HEENT: Atraumatic Neck: Supple Lungs: Clear to auscultation Cardiovascular: Regular rate Abdomen: Normal bowel sounds, Soft - Results Results: Laboratory Results WBC 4.76 k/cumm (4.4-10.8) 02/08/18 06:30 RBC 4.47 m/cumm (4.50-6.00) L 02/08/18 06:30 Hgb 13.3 g/dL (13.5-17.5) L 02/08/18 06:30 Hct 39.6 % (40.0-50.0) L 02/08/18 06:30 MCV 88.6 fL (80-95) 02/08/18 06:30 MCH 29.8 pg (27.0-33.0) 02/08/18 06:30 MCHC 33.6 g/dL (32.0-36.0) 02/08/18 06:30 RDW 14.2 % (11.8-14.1) H 02/08/18 06:30 Plt Count 163 x1000/uL (130-400) 02/08/18 06:30 MPV 10.6 fL (8.0-11.0) 02/08/18 06:30 Immature Gran % 0.2 02/06/18 12:53 Neutrophils % 76.0 02/06/18 12:53 Lymphocytes % 11.0 02/06/18 12:53 Monocytes % 10.2 02/06/18 12:53 Eosinophils % 2.3 02/06/18 12:53 Basophils % 0.3 02/06/18 12:53 Absolute Neutrophils 6.54 k/cumm (1.2-6.7) 02/06/18 12:53 Absolute Lymphocytes 0.95 k/cumm (1.2-3.4) L 02/06/18 12:53 Absolute Monocytes 0.88 k/cumm (0.11-0.7) H 02/06/18 12:53 Absolute Eosinophils 0.20 k/cumm (0.0-0.7) 02/06/18 12:53 Absolute Basophils 0.03 k/cumm (0.0-0.2) 02/06/18 12:53 Sodium 144 mmol/L (136-145) 02/08/18 06:30 Potassium 3.4 mmol/L (3.5-5.1) L 02/08/18 06:30 Chloride 106 mmol/L (98-107) 02/08/18 06:30 Carbon Dioxide 25.7 mmol/L (21.0-32.0) 02/08/18 06:30 Anion Gap 12.3 mmol/L (3-11) H 02/08/18 06:30 BUN 9 mg/dL (7-18) 02/08/18 06:30 Creatinine 0.87 mg/dL (0.70-1.30) 02/08/18 06:30 Estimated GFR/1.73 m2 >= 60.00 (mL/min/1.73m2) 02/08/18 06:30 Glucose 103 mg/dL (70-100) H 02/08/18 06:30 Calcium 8.4 mg/dL (8.5-10.1) L 02/08/18 06:30 Magnesium 2.0 mg/dL (1.8-2.4) 02/08/18 06:30 Total Bilirubin 1.1 mg/dL (0.2-1.0) H 02/07/18 07:00 Conjugated Bilirubin 0.28 mg/dL (0.00-0.20) H 02/07/18 07:00 AST 18 U/L (15-37) 02/07/18 07:00 ALT 22 U/L (12-78) 02/07/18 07:00 Alkaline Phosphatase 132 U/L (46-116) H 02/07/18 07:00 Total Protein 6.7 g/dL (6.4-8.2) 02/07/18 07:00 Albumin 3.7 g/dL (3.4-5.0) 02/07/18 07:00 Lipase 107 U/L (73-393) 02/06/18 12:53 Urine Color Yellow (Yellow) 02/06/18 13:10 Urine Clarity Clear 02/06/18 13:10 Urine pH 6.0 (5-8) 02/06/18 13:10 Ur Specific [place] 1.020 (1.005-1.025) 02/06/18 13:10 Urine Protein 30 mg/dL (Negative) H 02/06/18 13:10 Urine Ketones Negative mg/dL (Negative) 02/06/18 13:10 Urine Blood Trace-intact (Negative) H 02/06/18 13:10 Urine Nitrite Negative (Negative) 02/06/18 13:10 Urine Bilirubin Negative (Negative) 02/06/18 13:10 Urine Urobilinogen 1.0 EU/dL (Up TO 0.2) H 02/06/18 13:10 Ur Leukocyte Esterase Negative (Negative) 02/06/18 13:10 Urine RBC 0-2 (0-2) 02/06/18 13:10 Urine WBC 0-2 HPF (0-5) 02/06/18 13:10 Ur Epithelial Cells Rare HPF (Negative) 02/06/18 13:10 Urine Crystals Negative HPF (Negative) 02/06/18 13:10 Urine Bacteria Negative HPF (Negative) 02/06/18 13:10 Urine Casts 0-2 hyaline LPF (Negative) 02/06/18 13:10 Urine Mucus Trace (Negative) 02/06/18 13:10 Urine Other Many spermatozoa (Negative) 02/06/18 13:10 Ur Culture Indicated? No 02/06/18 13:10 Urine Glucose Negative mg/dL (Negative) 02/06/18 13:10 Stool Campylobacter PCR Cancelled 02/06/18 Unknown Stool Salmonella PCR Cancelled 02/06/18 Unknown Stool Shigella PCR Cancelled 02/06/18 Unknown Shiga Toxin (PCR) Cancelled 02/06/18 Unknown
[2018-02-09 07:15] VITALS: BP 131/78; PULSE 60; RESP 18; TEMP 36.5; O2SAT 94
--- NOTE | 2018-02-09 07:42 | DISCHARGE ---
Discharge - Discharge Orders - Discharge Plan Disposition: HOME Condition: Stable Diet:: soft diet for 1 week then back to heart healthy diabetic Equipment/Supplies:: No Equipment Needed Activity:: Activity as Tolerated - Instructions [employer] Instructions: Bowel Obstruction (DC), Soft Diet (DC) Additional Instructions: Follow up with PCP in 1-2 weeks Follow up with surgery as needed Return to the ED if you develop: Nausea/Vomiting Worsening abdominal pain Temps >101.5 Diet: oft diet for 1 week. Avoid a lot of fiber for the next week. After one week if you are feeling well return to your normal diabetic diet Activity: as tolerated
[2018-02-09] MEDS: Furosemide 80 MG TAB 40 MG PO (07:44)
[2018-02-09] MEDS: Losartan 50 MG TAB 100 MG PO (07:45)
[2018-02-09] MEDS: metFORMIN 500 MG TAB 1000 MG PO (07:45)
[2018-02-09] MEDS: buPROPion-CR 150 MG TABCR PO (07:45)
[2018-02-09] MEDS: amLODIPine 10 MG TAB PO (07:45)
[2018-02-09] MEDS: Atorvastatin 40 MG TAB 80 MG PO (07:45)
--- NOTE | 2018-02-09 07:47 | PDOC.DCSUM ---
Mr. Romo was admitted on Wednesday with a Partial small bowel obstruction. Ct also showed inguinal hernia that easily reduced and not the site of obstruction. He did well and was started on clear liquids on Wednesday and advanced to a soft diet wednesday night. he was passing flatus and had a couple of BM's yesterday. Wednesday morning he was doing well, was ambulating, had no pain and continued to pass flatus and have Bm's. he was discharged to home. We discussed bowel obstructions most likely due to adhesions and how they are unpredictable. If he develops that crampy abdominal pain I recommend going to a clear liquid diet right away to see if he can avoid being admitted. If his pain worsens on clear liquids or he starts to have N/V he needs to come to the ED again. Diet: soft diet for 1 week then back to a heart healthy diabetic diet Discharge Summary - Revised Admission Date: 02/06/18 Discharge Date: 02/09/18 Diagnosis: Partial Small bowel obstruction Procedure: none Admitting Physician: Antonette Canales
[2018-02-09] MEDS: Budesonide/Formoterol 160/4.5 6 GM 60 PUFF INH IH (08:06)
[2018-02-09 08:08] VITALS: O2SAT 92
[2018-02-09] MEDS: Enoxaparin 40 MG/0.4 ML SYR SC (09:31)
--- NOTE | 2018-02-09 11:05 | PDOC.CMDIS ---
Date of Service: 02/09/18 Time of Service: 11:05 LACE Index Scoring Tool - Questions: Length of Stay (in days): 4 - 6 Acuity (Admit via E.D.?): Yes Comorbidities: Chronic Pulmonary Disease E.D. Visits: 2 - Answers: Total Score: 11 Risk of Readmission: High Risk Care Management Discharge Reason for Hospitalization: Small bowel obstruction. Discharge Plan: [place] will return home when ready per MD. [place] will follow up with MD following discharge. No additional services anticipated at this time. He will transport home via private vehicle with his , Nelia. Patient/Family Education Needs: Review discharge instructions and any limitations. Ask Me Three discussion.
== END 2018-02-09 10:09 | disposition home or self-care (01) | DRG 390 ==
PROVIDERS: Nurse Practitioner Acute Care; Admitting Provider Surgery; Emergency Provider Student in an Organized Health Care Education/Training Program; PCP General Practice; Visit Provider Surgery
DX: K56.51 Intestinal adhesions [bands], with partial obstruction (principal); K40.90 Unilateral inguinal hernia, without obstruction or gangrene, not specified as recurrent; R19.7 Diarrhea, unspecified; Z79.84 Long term (current) use of oral hypoglycemic drugs; I10 Essential (primary) hypertension; E78.5 Hyperlipidemia, unspecified; G47.33 Obstructive sleep apnea (adult) (pediatric); I25.10 Atherosclerotic heart disease of native coronary artery without angina pectoris; J44.9 Chronic obstructive pulmonary disease, unspecified; E11.42 Type 2 diabetes mellitus with diabetic polyneuropathy
CPT/HCPCS: 36415 ×3; 80048 ×2; 80053; 80076; 83735 ×2; 83690; 81015; 85025; 85027 ×2; 81003; 74177; 94640 ×3; 99284; 99220; 99232 ×2; 99238; J2270; J2405; J1650 ×2; G0378 ×2; 87505; 96361; 96374; 96375; 99285; 83630; J3490

== ENCOUNTER 2018-05-28 22:16 | Inpatient (IN) | payer MEDICARE, SELFPAY ==
[2018-05-28 22:21] VITALS: BP 208/90; PULSE 74; RESP 20; TEMP 36.7; O2SAT 96
[2018-05-28 22:44] LABS: Abs Immature Grans 0.02 k/cumm (0.0-0.09); Absolute Basophil Count 0.05 k/cumm (0.0-0.2); Absolute Eosinophil Count 0.14 k/cumm (0.0-0.7); Absolute Lymphocyte Count 1.53 k/cumm (1.2-3.4); Absolute Monocyte Count 0.96 k/cumm (0.11-0.7); Basophils % 0.4; Eosinophils % 1.1; HCT 45.1 % (40.0-50.0); HGB 15.5 g/dL (13.5-17.5); Immature Grans % 0.2; Mean Corp. HGB Concentration 34.4 g/dL (32.0-36.0); Mean Corpuscular Hemoglobin 30.2 pg (27.0-33.0); Mean Corpuscular Volume 87.7 fL (80-95); Mean Platelet Volume 10.1 fL (8.0-11.0); Monocytes % 7.5; Neutrophils % 78.8; Platelet Count 236 x1000/uL (130-400); RBC 5.14 m/cumm (4.50-6.00); RBC Distribution Width 13.6 % (11.8-14.1); White Blood Cell Count 12.77 k/cumm (4.4-10.8)
[2018-05-28 22:50] LABS: Absolute Neutrophil Count 10.06 k/cumm (1.2-6.7)
[2018-05-28 22:57] LABS: ALT 31 U/L (12-78); AST 33 U/L (15-37); Albumin 4.5 g/dL (3.4-5.0); Alkaline Phosphatase 142 U/L (46-116); Anion Gap 12.1 mmol/L (3-11); BUN 16 mg/dL (7-18); Bilirubin, Total 1.2 mg/dL (0.2-1.0); CO2 27.9 mmol/L (21.0-32.0); CREATININE 0.97 mg/dL (0.70-1.30); Calcium 9.6 mg/dL (8.5-10.1); Chloride 101 mmol/L (98-107); Glucose 155 mg/dL (70-100); Potassium 3.5 mmol/L (3.5-5.1); Sodium 141 mmol/L (136-145); Total Protein 7.9 g/dL (6.4-8.2)
--- NOTE | 2018-05-28 23:08 | ED.GENADUL_ITS ---
Discharge Plan Disposition Patient Disposition: [facility] INPATIENT Condition: Poor Discharge Details Chief Complaint: Abd Prob Clinical Impression: Incarcerated ventral hernia, Small bowel obstruction Primary Care Provider: Satnam Barnes ED Provider: Vin Alcala Umbarger Meds and New Rx's Prescriptions: No Action atorvastatin 40 MG tablet 80 mg PO DAILY RF: 0 metformin 500 MG tablet 1,000 mg PO BID RF: 0 aspirin 325 MG tablet 325 mg PO DAILY RF: 0 potassium chloride [Klor-Con] 20 MEQ packet 20 meq PO BID RF: 0 losartan 100 MG tablet 100 mg PO DAILY RF: 0 nebivolol [Bystolic] 10 MG tablet 20 mg PO DAILY RF: 0 albuterol sulfate [ProAir HFA] 8.5 GM HFA aerosol inhaler 1 puff Inhalation Q6H PRN PRNRF: 0 budesonide-formoterol [Symbicort] 10.2 GM HFA aerosol inhaler 2 puff Inhalation BID RF: 0 triamcinolone acetonide 15 GM cream 15 gm Topical BID PRNRF: 0 penicillin V potassium 500 MG tablet 1 tab PO BID RF: 0 furosemide 80 MG tablet 40 mg PO BID RF: 0 amlodipine 10 MG tablet 10 mg PO BID RF: 0 bupropion HCl 150 MG tablet extended release 12 hr 150 mg PO BID RF: 0 doxazosin 4 MG tablet 4 mg PO DAILY RF: 0 cholecalciferol (vitamin D3) [Vitamin D3] 2,000 UNIT capsule 1 cap PO DAILY RF: 0 Medical Decision Making Elderly male patient with prior history of hernia repair presenting with diffuse abdominal pain and a tender firm periumbilical mass. He is telling me that this mass is always present and always hard. However it is not usually painful. It seems larger to him. I am unable to reduce this if it is a hernia. He is distended. He has a diffusely tender abdomen beyond this tender mass. Differential includes incarcerated bowel, bowel obstruction, hernia. IV is established and fluids started. He is made n.p.o. Pain medication and antiemetics ordered. Laboratory studies ordered. CT scan of the abdomen pelvis ordered. Laboratory studies significant for white count of 13. Chemistries and LFTs unremarkable. Lactic acid normal. Lipase is elevated at 834. 1:30 -CT scan of the abdomen pelvis shows small bowel obstruction thought secondary to ventral hernia containing a loop of small bowel. There is no obvious strangulation. There is decompression of the distal bowel. Pancreas is unremarkable on CAT scan despite elevated lipase. He is comfortable with Dilaudid. However, despite pain medication, I am still unable to reduce the hernia. Case discussed with surgery, Dr. Campbell. NG tube will be placed and patient kept n.p.o. and admitted to surgery for further management. I have discussed findings and plan with patient and . Patient is stable in the emergency department. Lab Data Lab results reviewed: Yes I reviewed the patient's lab results. HPI General Mode of arrival: ambulatory . Date/Time Provider Initiated Documentation: 05/28/18 22:33 . Limitations to Documentation: no limitations . Information obtained by: patient . HPI Narrative: Patient presents to ED with abdominal pain. Onset was this afternoon. He was fine during the morning and was actually out hunting when he started to develop some pain. He was not able to eat dinner. He has subsequently had increased pain. It seems to be mostly around the periumbilical area. He has nausea but no vomiting. There is no radiation of the pain. There is no urinary symptoms. There is no chest pain. He has been hot and cold but has no documented fever. He has previous history of hernia repairs and presents now for worsening abdominal pain. Related Data Home Medications Medication Instructions Recorded Confirmed aspirin 325 mg PO DAILY tab-cap NS 12/19/12 05/28/18 atorvastatin 80 mg PO DAILY tab-cap NS 12/19/12 05/28/18 losartan 100 mg PO DAILY tab-cap NS 12/19/12 05/28/18 metformin 1,000 mg PO BID tab-cap NS 12/19/12 05/28/18 nebivolol [Bystolic] 20 mg PO DAILY tab-cap NS 12/19/12 05/28/18 potassium chloride [Klor-Con] 20 meq PO BID packet NS 12/19/12 05/28/18 albuterol sulfate [ProAir HFA] 1 puff INHALATION Q6H PRN PRN 01/02/13 05/28/18 budesonide-formoterol [Symbicort] 2 puff INHALATION BID 01/09/13 05/28/18 penicillin V potassium 1 tab PO BID 01/09/13 05/28/18 triamcinolone acetonide 15 gm TOPICAL BID PRN 01/09/13 05/28/18 furosemide 40 mg PO BID 01/15/13 05/28/18 amlodipine 10 mg PO BID 12/11/15 05/28/18 bupropion HCl 150 mg PO BID 12/11/15 05/28/18 doxazosin 4 mg PO DAILY 02/14/16 05/28/18 cholecalciferol (vitamin D3) 1 cap PO DAILY 08/22/17 05/28/18 [Vitamin D3] Allergies Allergy/AdvReac Type Severity Reaction Status Date / Time oxycodone AdvReac Intermediate Nausea Unverified 05/28/18 22:25 General Stated Complaint: Abd Prob LOREN: 3 Review of Systems Review of Systems All systems reviewed & are unremarkable except as noted in HPI and below Constitutional Denies chills, Denies fever(s), Denies headache(s), Denies malaise, Reports poor appetite and Denies weakness Eyes Denies eye discharge, Denies other visual disturbances and Denies eye pain ENT Denies otalgia, Denies headache(s), Denies nasal congestion, Denies neck pain and Denies sore throat Cardiovascular Denies chest pain, Reports diaphoresis, Denies syncope, Denies pedal edema, Denies leg edema, Denies lightheadedness, Denies palpitations, Denies dyspnea and Denies orthopnea Respiratory Denies chest congestion, Denies cough, Denies hemoptysis and Denies dyspnea Gastrointestinal Reports abdominal pain, Reports bloating, Denies diarrhea, Reports nausea and Denies vomiting Genitourinary Denies hematuria, Denies genital pain, Denies dysuria, Denies flank pain and Denies testicular pain Musculoskeletal Denies abnormal gait, Denies back pain, Denies myalgias, Denies arthralgias, Denies neck pain and Denies numbness Integumentary/Breasts Denies erythema, Denies rash and Denies wounds Neurologic Denies abnormal gait, Denies syncope, Denies headache(s), Denies focal weakness , Denies numbness and Denies weakness Endocrine Denies palpitations [facility] Medical History CAD (coronary artery disease) (Chronic) COPD (chronic obstructive pulmonary disease) (Chronic) Diabetes type 2, controlled (Chronic) Hypercholesterolemia (Chronic) Hypertension (Chronic) Sleep apnea (Chronic) Social History Smoking/Tobacco Use Status: Never Surgical History S/P coronary artery stent placement (Inactive) S/P hernia repair (Inactive) S/P shoulder surgery (Inactive) Total knee replacement status (Inactive) Exam Const General: cooperative, comfortable and no acute distress Orientation: alert and oriented x3 [facility] Head: normocephalic and atraumatic Ears: external ears normal General nose exam: external nose normal Mouth: moist mucous membranes Eyes Sclera: sclerae normal Neck Neck: normal visual inspection, trachea midline and supple Resp Effort & Inspection: normal respiratory effort Auscultation: clear to auscultation bilaterally Cardio Rate: regular rate Rhythm: regular rhythm Heart Sounds: S1 normal and S2 normal Pulses: radial pulses present GI Inspection: distended and visible herniation Palpation: soft, no guarding, mass (tender firm mass just above umbilicus) and tender (Diffusely) Auscultation: normal bowel sounds Skin General skin exam: no rashes or lesions noted and other (warm and dry) Neuro General: alert, oriented x3, gait normal, no focal motor deficits and CN's II- XI intact bilaterally Extrem General: normal to inspection and no clubbing, cyanosis or edema Psych Mental Status: mental status grossly normal Speech and Movement: speech and movement normal Mood: congruent mood Affect: normal affect Course Vital Signs Temperature 98.1 F 05/28/18 22:21 Pulse 74 05/28/18 22:21 Respiratory Rate 20 05/28/18 22:21 Blood Pressure 208/90 H 05/28/18 22:21 Pulse Oximetry 96 05/28/18 22:21 Temperature 98.1 F 05/28/18 22:21 Temperature Source Temporal Artery Scan 05/28/18 22:21 Pulse 74 05/28/18 22:21 Respiratory Rate 20 05/28/18 22:21 Respiratory Effort Non-Labored 05/28/18 22:21 Blood Pressure 208/90 H 05/28/18 22:21 Blood Pressure Position Supine 05/28/18 22:21 Pulse Oximetry 96 05/28/18 22:21 Oxygen Delivery Method Room Air 05/28/18 22:21 Oxygen Flow Rate 0 05/28/18 22:21 Pain Level 9 05/28/18 22:26 Lab/Test Results Lab/Test Results: Laboratory Tests Range/Units 05/28/18 05/28/18 22:35 22:35 WBC (4.4-10.8) k/cumm 12.77 H RBC (4.50-6.00) m/cumm 5.14 Hgb (13.5-17.5) g/dL 15.5 Hct (40.0-50.0) % 45.1 MCV (80-95) fL 87.7 MCH (27.0-33.0) pg 30.2 MCHC (32.0-36.0) g/dL 34.4 RDW (11.8-14.1) % 13.6 Plt Count (130-400) x1000/uL 236 MPV (8.0-11.0) fL 10.1 Immature Gran % 0.2 Neutrophils % 78.8 Lymphocytes % 12.0 Monocytes % 7.5 Eosinophils % 1.1 Basophils % 0.4 Absolute Neutrophils (1.2-6.7) k/cumm 10.06 H Absolute Lymphocytes (1.2-3.4) k/cumm 1.53 Absolute Monocytes (0.11-0.7) k/cumm 0.96 H Absolute Eosinophils (0.0-0.7) k/cumm 0.14 Absolute Basophils (0.0-0.2) k/cumm 0.05 Sodium (136-145) mmol/L 141 Potassium (3.5-5.1) mmol/L 3.5 Chloride (98-107) mmol/L 101 Carbon Dioxide (21.0-32.0) mmol/L 27.9 Anion Gap (3-11) mmol/L 12.1 H BUN (7-18) mg/dL 16 Creatinine (0.70-1.30) mg/dL 0.97 Estimated GFR/1.73 m2 (mL/min/1.73m2) >= 60.00 Glucose (70-100) mg/dL 155 H Calcium (8.5-10.1) mg/dL 9.6 Total Bilirubin (0.2-1.0) mg/dL 1.2 H AST (15-37) U/L 33 ALT (12-78) U/L 31 Alkaline Phosphatase (46-116) U/L 142 H Total Protein (6.4-8.2) g/dL 7.9 Albumin (3.4-5.0) g/dL 4.5
[2018-05-28] MEDS: Normal Saline 1,000 ML 1000 ML IV (23:15)
[2018-05-28] MEDS: HYDROmorphone 2 MG/ML VIAL 0.5 MG IVP (23:15)
[2018-05-28] MEDS: Lactated Ringers 1,000 ML 150 ML IV (23:15)
[2018-05-28 23:18] LABS: Lactate-non-spesis 0.7 mmol/L (0.6-1.4)
[2018-05-28] MEDS: Ondansetron 4 MG/2 ML VIAL IVP (23:29)
[2018-05-28 23:30] LABS: Lipase 834 U/L (73-393)
[2018-05-29] VITALS (9 sets, daily range): BP systolic 144–175; BP diastolic 69–91; PULSE 53–78; RESP 17–19; TEMP 36–37.1; O2SAT 91–96
[2018-05-29] MEDS: Omnipaque 350 MG/ML 100 ML BTL IJ (00:15)
--- NOTE | 2018-05-29 00:35 | DI.CT_ITS ---
SYMPTOM/DIAGNOSIS: ABDOMINAL PAIN ABDOMINAL AND PELVIC CT: 05/29 CT examination of the abdomen and pelvis was performed with a bolus infusion of 100 cc Omnipaque 350 and ingestion of dilute barium. Images obtained through the lung bases are unremarkable. Liver and spleen appear normal. The heart appears enlarged. Pancreas appears normal. Gallbladder and bile ducts are CT normal. There is a large quantity of ingested contrast material in the stomach. There is a small umbilical fat containing hernia. There are bilateral fat containing inguinal hernias. No incarcerated hernia identified. There is moderate small bowel dilatation predominantly involving the mid small bowel with decompressed distal bowel. Transition point is difficult to identify with certainty, however, this may lie in the right lower quadrant. Duodenum and proximal jejunum are also nondistended. Abdominal aorta is of normal diameter. No major vascular abnormality is seen. Probable small bilateral renal cysts are noted. No evidence of urinary tract calcification or obstruction. Adrenals appear normal bilaterally. Appendix is normal. No evidence of diverticulitis. CONCLUSION: Findings suggesting mechanical mid small bowel obstruction. Appropriate follow up studies suggested.
[2018-05-29 00:53] LABS: Bilirubin Negative (Negative); Blood Trace-intact (Negative); Clarity Clear; Glucose 100 mg/dL (Negative); Ketones 40 mg/dL (Negative); Leukocyte Esterase Negative (Negative); Nitrite Negative (Negative)
[2018-05-29] MEDS: HYDROmorphone 2 MG/ML VIAL 0.5 MG IVP (00:56)
[2018-05-29 00:59] LABS: RBC 0-2 (0-2); WBC 0-2 HPF (0-5)
[2018-05-29 01:00] LABS: Bacteria Negative HPF (Negative); C & S Indicated? No; Casts Negative LPF (Negative); Crystals Negative HPF (Negative); Epithelial Cells Rare HPF (Negative); Mucus Negative (Negative)
--- NOTE | 2018-05-29 01:08 | DI.VRAD_ITS ---
EXAM: CT Abdomen and Pelvis With Intravenous Contrast EXAM DATE/TIME: 05/29/2018 12:25 AM CLINICAL HISTORY: 73 years old, male; Signs and symptoms; Other: Abdominal pain; Prior surgery; Surgery type: 2 x hernia surgery TECHNIQUE: Axial computed tomography images of the abdomen and pelvis with intravenous contrast. All CT scans at this facility use at least one of these dose optimization techniques: automated exposure control; mA and/or kV adjustment per patient size (includes targeted exams where dose is matched to clinical indication); or iterative reconstruction. Coronal and sagittal reformatted images were created and reviewed. CONTRAST: 100 ml of Omnipaque 350 administered intravenously. COMPARISON: CT ABD PELVIS WITH CONTRAST 02/06/2018 1:19 PM FINDINGS: There is atelectasis/scarring within the lung bases. There are degenerative changes of the spine. There degenerative changes of both hips. There is no liver mass. There is no intrahepatic biliary dilatation. No gallstones are seen within the gallbladder. The pancreas is unremarkable. The spleen is unremarkable. There is nodularity of the adrenal glands suggesting hyperplasia. This is unchanged. Bilateral renal cysts are present. No calculi or hydronephrosis is seen. There is stable perinephric stranding. The ureters are normal in caliber. No calculi are seen along the course of the ureters. The aorta is normal in caliber. The IVC is normal in caliber. There is no retroperitoneal adenopathy. There is no mesenteric adenopathy. The stomach is unremarkable. There is small bowel distention anteriorly involving the mid bowel loops. This is thought to be secondary to a small ventral hernia. There is noted to be a loop of small bowel within the hernia. No definite strangulation is seen. However the distal small bowel loops do appear to be normal in caliber. The colonic structures appear normal. Within the pelvis: A normal appendix is seen within the right lower quadrant. There is bladder wall thickening. There is mild prostatic enlargement. There is a scant amount of free fluid within the pelvis. This is decreased since the previous exam. There is no inguinal adenopathy. There are bilateral fat containing inguinal hernias. Previously seen bowel within the right inguinal hernia is no longer present. There is no pelvic adenopathy. The rectosigmoid colon is unremarkable. IMPRESSION: 1. Findings consistent with a small bowel obstruction which is thought to be secondary to a ventral hernia containing a loop of small bowel. No strangulation is identified. Findings do appear somewhat similar to the previous exam. 2. Bladder wall thickening which may be secondary to mild prostatic enlargement. This also appears similar to the old exam. 3. Small amount of free fluid in the pelvis which is decreased from the old exam. 4. Bilateral fat containing inguinal hernias. Dictated and Authenticated by: Jacobo Louise MD. Ordering:NICCI EPPS MD
--- NOTE | 2018-05-29 06:33 | HPE_ITS ---
Date of service: 05/29/18 Time of Service: 06:21 Assessment and Plan (1) Small bowel obstruction, partial: Current visit: No Status: Resolved SBO suggested on VRADS report. Clinically this is resolved at this time. No significant NG output. Abdominal pain resolved. CT findings more consistent with chronic seroma/ scar tissue on my review. Will d/c NG tube. Start clears/ resume po home meds. (2) Pancreatitis: Current visit: Yes Status: Acute Epigastric/supraumbilical pain on admission now resolved. WBC ~13k. Lipase - 800s. Suspect abdominal pain on admission was secondary to pancreatitis. Follow-up repeat CBC/lipase. Clear liquid diet. History of Present Illness Chief Complaint: Abdominal pain Narrative: 73 y/o male who presented to the ED with a one day history of abdominal pain. He notes that the pain began while he was out hunting and worsened during the evening. He was not able to sleep and came to the ED to be evaluated. He denies any associated nausea, vomiting, or diarrhea. He last had a BM yesterday morning. He was passing flatus. He notes that his abdomen felt hard and he was tender in the epigastric/supraumbilical region. He notes subjective fevers/chills. His abdominal pain has resolved as of this morning. He c/o phlegm/sinus drainage. NG was placed in the ED overnight for suspected bowel obstruction on CT. There is scant mucus and brownish material in the tubing. No output in the canister. The patient has had laparoscopic ventral hernia repair with mesh x 2. He has known bilateral inguinal hernias which are minimally symptomatic. He notes an occasional twinge in the groin when he gets up but no significant or lasting discomfort. He denies any groin symptoms at this time. He was hospitalized in February 2018 for a small bowel obstruction which resolved with conservative management. VRADS report on CT abd/pelvis with IV contrast overnight indicated a loop of small bowel in a midline recurrent ventral hernia defect with possible obstruction. I reviewed the report and films and also compared them to a CT abd/pelvis from 02/07/18. This appears to be a small chronic seroma or lipoma in my opinion. The fascia appears to be intact posterior to this on my review. It is unchanged in appearance from January to May 2018. Patient also noted to have an elevated lipase in the 800s. He denies any prior history of pancreatitis. He quit ETOH 20 years ago. No gallstones identified on imaging. Review of Systems Review of Systems All systems reviewed & are unremarkable except as noted in HPI and below Cardiovascular Denies chest pain, Denies rapid heart rate and Reports dyspnea Respiratory Reports excessive phlegm production and Reports dyspnea Gastrointestinal Reports abdominal pain, Denies constipation, Denies diarrhea, Denies nausea and Denies vomiting PFSH Medical History CAD (coronary artery disease) (Chronic) COPD (chronic obstructive pulmonary disease) (Chronic) Diabetes type 2, controlled (Chronic) Hypercholesterolemia (Chronic) Hypertension (Chronic) Sleep apnea (Chronic) Social History Smoking/Tobacco Use Status: Never Surgical History S/P coronary artery stent placement (Inactive) S/P hernia repair (Inactive) S/P shoulder surgery (Inactive) Total knee replacement status (Inactive) Meds Home Medications Medication Instructions Recorded Confirmed Type aspirin 325 mg PO DAILY tab-cap NS 12/19/12 05/28/18 History atorvastatin 80 mg PO DAILY tab-cap NS 12/19/12 05/28/18 History losartan 100 mg PO DAILY tab-cap NS 12/19/12 05/28/18 History metformin 1,000 mg PO BID tab-cap NS 12/19/12 05/28/18 History nebivolol [Bystolic] 20 mg PO DAILY tab-cap NS 12/19/12 05/28/18 History potassium chloride [Klor-Con] 20 meq PO BID packet NS 12/19/12 05/28/18 History albuterol sulfate [ProAir HFA] 1 puff INHALATION Q6H PRN PRN 01/02/13 05/28/18 History budesonide-formoterol [Symbicort] 2 puff INHALATION BID 01/09/13 05/28/18 History penicillin V potassium 1 tab PO BID 01/09/13 05/28/18 History triamcinolone acetonide 15 gm TOPICAL BID PRN 01/09/13 05/28/18 History furosemide 40 mg PO BID 01/15/13 05/28/18 History amlodipine 10 mg PO BID 12/11/15 05/28/18 History bupropion HCl 150 mg PO BID 12/11/15 05/28/18 History doxazosin 4 mg PO DAILY 02/14/16 05/28/18 History cholecalciferol (vitamin D3) 1 cap PO DAILY 08/22/17 05/28/18 History [Vitamin D3] finasteride [Proscar] 5 mg PO DAILY 05/29/18 05/29/18 History Allergies Allergy/AdvReac Type Severity Reaction Status Date / Time oxycodone AdvReac Intermediate Nausea Unverified 05/28/18 22:25 Exam Const General: cooperative, comfortable and no acute distress Orientation: alert and oriented x3 HENMT Head: normocephalic and atraumatic Eyes Sclera: sclerae normal Resp Effort & Inspection: normal respiratory effort and able to speak in complete sentences Cardio Jugular venous pressure: no JVD Rate: regular rate Rhythm: regular rhythm GI Inspection: obesity Palpation: soft, not firm, no guarding, hernia (bilateral groin - soft, nontender; supraumbilical area - some laxity of the abdominal wall is noted on exam but no definite hernia), mass (supraumbilical - ~ 1.5 cm smooth nodule, nontender, consistent with scar tissue from previous hernia repairs), not rigid , nontender and other Auscultation: normal bowel sounds Skin General skin exam: no rashes or lesions noted, no erythema and no jaundice Neuro General: alert and oriented x3 Speech: speech normal Results Imaging Abdomen CT scan report/results: report reviewed and image reviewed CT scan - pelvis: report reviewed and image reviewed Imaging Studies: Patient Name: LISA LARSON AUnit #: [id number]: ER Ordering Provider: : [facility] ER Primary Care Provider: Satnam Barnes M.D.Date of Exam: 05/29/18ex: M : 4Age: 73 Exam(s) EXAM: CT Abdomen and Pelvis With Intravenous Contrast EXAM DATE/TIME: 05/29/2018 12:25 AM CLINICAL HISTORY: 73 years old, male; Signs and symptoms; Other: Abdominal pain; Prior surgery; Surgery type: 2 x hernia surgery TECHNIQUE: Axial computed tomography images of the abdomen and pelvis with intravenous contrast. All CT scans at this facility use at least one of these dose optimization techniques: automated exposure control; mA and/or kV adjustment per patient size (includes targeted exams where dose is matched to clinical indication); or iterative reconstruction. Coronal and sagittal reformatted images were created and reviewed. CONTRAST: 100 ml of Omnipaque 350 administered intravenously. COMPARISON: CT ABD PELVIS WITH CONTRAST 02/06/2018 1:19 PM FINDINGS: There is atelectasis/scarring within the lung bases. There are degenerative changes of the spine. There degenerative changes of both hips. There is no liver mass. There is no intrahepatic biliary dilatation. No gallstones are seen within the gallbladder. The pancreas is unremarkable. The spleen is unremarkable. There is nodularity of the adrenal glands suggesting hyperplasia. This is unchanged. Bilateral renal cysts are present. No calculi or hydronephrosis is seen. There is stable perinephric stranding. The ureters are normal in caliber. No calculi are seen along the course of the ureters. The aorta is normal in caliber. The IVC is normal in caliber. There is no retroperitoneal adenopathy. There is no mesenteric adenopathy. The stomach is unremarkable. There is small bowel distention anteriorly involving the mid bowel loops. This is thought to be secondary to a small ventral hernia. There is noted to be a loop of small bowel within the hernia. No definite strangulation is seen. However the distal small bowel loops do appear to be normal in caliber. The colonic structures appear normal. Within the pelvis: A normal appendix is seen within the right lower quadrant. There is bladder wall thickening. There is mild prostatic enlargement. There is a scant amount of free fluid within the pelvis. This is decreased since the previous exam. There is no inguinal adenopathy. There are bilateral fat containing inguinal hernias. Previously seen bowel within the right inguinal hernia is no longer present. There is no pelvic adenopathy. The rectosigmoid colon is unremarkable. IMPRESSION: 1. Findings consistent with a small bowel obstruction which is thought to be secondary to a ventral hernia containing a loop of small bowel. No strangulation is identified. Findings do appear somewhat similar to the previous exam. 2. Bladder wall thickening which may be secondary to mild prostatic enlargement. This also appears similar to the old exam. 3. Small amount of free fluid in the pelvis which is decreased from the old exam. 4. Bilateral fat containing inguinal hernias. Dictated and Authenticated by: Jacobo Louise MD. Ordering:NICCI EPPS MD Ordered By: CC: Dictated By: Reports vrad 05/29/18 0025 05/29/18 0107 Transcribed By: Mignon Good Labs : 05/28/18 22:35 05/28/18 22:35 Laboratory Results - last 24 hr 05/28/18 05/28/18 05/28/18 22:35 22:35 23:13 WBC 12.77 H RBC 5.14 Hgb 15.5 Hct 45.1 MCV 87.7 MCH 30.2 MCHC 34.4 RDW 13.6 Plt Count 236 MPV 10.1 Immature Gran % 0.2 Neutrophils % 78.8 Lymphocytes % 12.0 Monocytes % 7.5 Eosinophils % 1.1 Basophils % 0.4 Absolute Neutrophils 10.06 H Absolute Lymphocytes 1.53 Absolute Monocytes 0.96 H Absolute Eosinophils 0.14 Absolute Basophils 0.05 Sodium 141 Potassium 3.5 Chloride 101 Carbon Dioxide 27.9 Anion Gap 12.1 H BUN 16 Creatinine 0.97 Estimated GFR/1.73 m2 >= 60.00 Glucose 155 H Lactate Calcium 9.6 Total Bilirubin 1.2 H AST 33 ALT 31 Alkaline Phosphatase 142 H Total Protein 7.9 Albumin 4.5 Lipase 834 H Urine Color Urine Clarity Urine pH Ur Specific [place] Urine Protein Urine Ketones Urine Blood Urine Nitrite Urine Bilirubin Urine Urobilinogen Ur Leukocyte Esterase Urine RBC Urine WBC Ur Epithelial Cells Urine Crystals Urine Bacteria Urine Casts Urine Mucus Ur Culture Indicated? Urine Glucose 05/28/18 05/29/18 23:13 00:50 WBC RBC Hgb Hct MCV MCH MCHC RDW Plt Count MPV Immature Gran % Neutrophils % Lymphocytes % Monocytes % Eosinophils % Basophils % Absolute Neutrophils Absolute Lymphocytes Absolute Monocytes Absolute Eosinophils Absolute Basophils Sodium Potassium Chloride Carbon Dioxide Anion Gap BUN Creatinine Estimated GFR/1.73 m2 Glucose Lactate 0.7 Calcium Total Bilirubin AST ALT Alkaline Phosphatase Total Protein Albumin Lipase Urine Color Yellow Urine Clarity Clear Urine pH 7.0 Ur Specific [place] 1.020 Urine Protein 100 H Urine Ketones 40 H Urine Blood Trace-intact H Urine Nitrite Negative Urine Bilirubin Negative Urine Urobilinogen 1.0 H Ur Leukocyte Esterase Negative Urine RBC 0-2 Urine WBC 0-2 Ur Epithelial Cells Rare Urine Crystals Negative Urine Bacteria Negative Urine Casts Negative Urine Mucus Negative Ur Culture Indicated? No Urine Glucose 100 Last Vital Signs Temp 36.6 C 05/29/18 02:29 Pulse 76 05/29/18 02:29 Resp 19 05/29/18 02:29 BP 175/91 H 05/29/18 02:29 Pulse Ox 91 L 05/29/18 02:29
--- NOTE | 2018-05-29 07:24 | PDOC.CMIN ---
- If Service Date Differs Date of service: 05/29/18 Time of Service: 07:24 Care Management Initial Assess REASON FOR HOSPITALIZATION:: Small bowel obstruction. PAST MEDICAL HISTORY/PAST SURGICAL HISTORY:: Coronary artery disease, COPD, diabetes type II, hypercholesterolemia, HTN, sleep apnea. Surgical hx: coronary artery stent placement, hernia repair, shoulder surgery, total knee replacement. PREVIOUS FUNCTIONAL STATUS/SOCIAL/FAMILY SUPPORTS:: Corona resides with his , Nelia, in [facility]. 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 Corona is independent with his ADLs and transportation. CURRENT FUNCTIONAL STATUS:: Corona is sitting in bed with his , Nelia, at bedside when CM visits this morning. He is engaged in conversation, makes good eye contact, and is talkative. Corona reports his abdominal pain is 2/10 and that he has been having diarrheal stool x1. He has had his NG tube removed this morning and his diet has been advanced to clear liquids which he is tolerating well. ADVANCE DIRECTIVES:: On file at [facility]. Health Care Agent; Nelia Darling. Has patient been provided with information about the portal?: Yes Did the patient sign up for the portal?: No CODE STATUS:: Full Code INSURANCE COVERAGE / FINANCIAL ISSUES:: Medicaid, Medicare. CURRENT HOME/COMMUNITY SERVICES/EQUIPMENT:: Corona has a cane that he will reportedly use when he is tired. No community or home services. PRIMARY CARE PHYSICIAN:: Satnam Barnes MD. POTENTIAL DISCHARGE NEEDS:: Follow up appointment with PCP and surgical services. PATIENT/FAMILY EDUCATION NEEDS:: Discharge education, any limitations, and follow up plan of care. Ask Me Three discussion. ANTICIPATED BARRIERS TO DISCHARGE:: No anticipated barriers to discharge. TRANSPORTATION:: Corona will transport via private vehicle with his , Nelia. PLAN:: Corona will discharge home when medically ready per MD. Anticipate patient will discharge with no services and follow up with his PCP and surgical services. CM will continue to offer support to patient and care team regarding discharge planning and disposition.
--- NOTE | 2018-05-29 07:30 | INITIAL_ITS ---
- If Service Date Differs Date of service: 05/29/18 Time of Service: 07:24 Care Management Initial Assess REASON FOR HOSPITALIZATION:: Small bowel obstruction. PAST MEDICAL HISTORY/PAST SURGICAL HISTORY:: Coronary artery disease, COPD, diabetes type II, hypercholesterolemia, HTN, sleep apnea. Surgical hx: coronary artery stent placement, hernia repair, shoulder surgery, total knee replacement. PREVIOUS FUNCTIONAL STATUS/SOCIAL/FAMILY SUPPORTS:: Corona resides with his , Nelia, in [facility]. 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 Corona is independent with his ADLs and transportation. CURRENT FUNCTIONAL STATUS:: Corona is sitting in bed with his , Nelia, at bedside when CM visits this morning. He is engaged in conversation, makes good eye contact, and is talkative. Corona reports his abdominal pain is 2/10 and that he has been having diarrheal stool x1. He has had his NG tube removed this morning and his diet has been advanced to clear liquids which he is tolerating well. ADVANCE DIRECTIVES:: On file at [facility]. Health Care Agent; Nelia Darling. Has patient been provided with information about the portal?: Yes Did the patient sign up for the portal?: No CODE STATUS:: Full Code INSURANCE COVERAGE / FINANCIAL ISSUES:: Medicaid, Medicare. CURRENT HOME/COMMUNITY SERVICES/EQUIPMENT:: Corona has a cane that he will reportedly use when he is tired. No community or home services. PRIMARY CARE PHYSICIAN:: Satnam Barnes MD. POTENTIAL DISCHARGE NEEDS:: Follow up appointment with PCP and surgical services. PATIENT/FAMILY EDUCATION NEEDS:: Discharge education, any limitations, and follow up plan of care. Ask Me Three discussion. ANTICIPATED BARRIERS TO DISCHARGE:: No anticipated barriers to discharge. TRANSPORTATION:: Corona will transport via private vehicle with his , Nelia. PLAN:: Corona will discharge home when medically ready per MD. Anticipate patient will discharge with no services and follow up with his PCP and surgical services. CM will continue to offer support to patient and care team regarding discharge planning and disposition.
[2018-05-29] MEDS: Furosemide 80 MG TAB 40 MG PO ×2 (08:25→16:47)
[2018-05-29] MEDS: Aspirin 325 MG TAB PO (08:25)
[2018-05-29] MEDS: Atorvastatin 40 MG TAB 80 MG PO (08:25)
[2018-05-29] MEDS: Losartan 50 MG TAB 100 MG PO (08:25)
[2018-05-29] MEDS: amLODIPine 10 MG TAB PO ×2 (08:25→19:22)
[2018-05-29] MEDS: Finasteride 5 MG TAB PO (08:26)
[2018-05-29] MEDS: buPROPion-CR 150 MG TABCR PO ×2 (08:26→19:22)
[2018-05-29] MEDS: Potassium Chloride 10 MEQ TABCR 20 MEQ PO ×2 (08:41→19:22)
[2018-05-29 09:35] LABS: Abs Immature Grans 0.01 k/cumm (0.0-0.09); Absolute Basophil Count 0.02 k/cumm (0.0-0.2); Absolute Eosinophil Count 0.09 k/cumm (0.0-0.7); Absolute Lymphocyte Count 1.27 k/cumm (1.2-3.4); Absolute Monocyte Count 0.73 k/cumm (0.11-0.7); Absolute Neutrophil Count 5.25 k/cumm (1.2-6.7); Basophils % 0.3; Eosinophils % 1.2; HGB 13.7 g/dL (13.5-17.5); Immature Grans % 0.1; Lymphocytes % 17.2; Mean Corp. HGB Concentration 34.3 g/dL (32.0-36.0); Mean Corpuscular Hemoglobin 30.4 pg (27.0-33.0); Mean Corpuscular Volume 88.9 fL (80-95); Mean Platelet Volume 10.2 fL (8.0-11.0); Monocytes % 9.9; Neutrophils % 71.3; Platelet Count 201 x1000/uL (130-400); RBC Distribution Width 13.4 % (11.8-14.1); White Blood Cell Count 7.37 k/cumm (4.4-10.8)
[2018-05-29 09:51] LABS: ALT 24 U/L (12-78); AST 24 U/L (15-37); Albumin 3.5 g/dL (3.4-5.0); Alkaline Phosphatase 122 U/L (46-116); Anion Gap 9.1 mmol/L (3-11); BUN 12 mg/dL (7-18); CO2 26.9 mmol/L (21.0-32.0); CREATININE 0.86 mg/dL (0.70-1.30); Calcium 8.5 mg/dL (8.5-10.1); Chloride 104 mmol/L (98-107); Glucose 142 mg/dL (70-100); Lipase 692 U/L (73-393); Potassium 3.6 mmol/L (3.5-5.1); Sodium 140 mmol/L (136-145); Total Protein 6.5 g/dL (6.4-8.2)
[2018-05-29] MEDS: Budesonide/Formoterol 160/4.5 6 GM 60 PUFF INH IH ×2 (09:52→19:22)
[2018-05-29] MEDS: Lactated Ringers 1,000 ML 100 ML IV ×2 (10:21→19:23)
[2018-05-30] MEDS: Lactated Ringers 1,000 ML 100 ML IV (04:37)
[2018-05-30 04:42] VITALS: BP 147/69; PULSE 60; RESP 16; TEMP 36.6; O2SAT 95
[2018-05-30 07:35] VITALS: BP 157/79; PULSE 57; RESP 18; TEMP 37; O2SAT 95
[2018-05-30 07:41] LABS: ALT 25 U/L (12-78); AST 21 U/L (15-37); Albumin 3.6 g/dL (3.4-5.0); Alkaline Phosphatase 118 U/L (46-116); BUN 9 mg/dL (7-18); Bilirubin, Total 1.1 mg/dL (0.2-1.0); CREATININE 0.81 mg/dL (0.70-1.30); Calcium 8.5 mg/dL (8.5-10.1); Chloride 105 mmol/L (98-107); Glucose 129 mg/dL (70-100); Lipase 105 U/L (73-393); Potassium 3.5 mmol/L (3.5-5.1); Sodium 144 mmol/L (136-145); Total Protein 6.6 g/dL (6.4-8.2)
[2018-05-30] MEDS: Budesonide/Formoterol 160/4.5 6 GM 60 PUFF INH IH (07:44)
[2018-05-30] MEDS: Aspirin 325 MG TAB PO (08:02)
[2018-05-30] MEDS: Atorvastatin 40 MG TAB 80 MG PO (08:02)
[2018-05-30] MEDS: Finasteride 5 MG TAB PO (08:03)
[2018-05-30] MEDS: Losartan 50 MG TAB 100 MG PO (08:03)
[2018-05-30] MEDS: Potassium Chloride 10 MEQ TABCR 20 MEQ PO (08:04)
[2018-05-30] MEDS: amLODIPine 10 MG TAB PO (08:04)
[2018-05-30] MEDS: buPROPion-CR 150 MG TABCR PO (08:04)
[2018-05-30] MEDS: Furosemide 80 MG TAB 40 MG PO (08:04)
[2018-05-30 08:27] LABS: Cholesterol 143 mg/dL (50-200); HDL Cholesterol 72 mg/dL (40-60); LDL CHOLESTEROL 59 mg/dL (<100); Triglyceride 90 mg/dL (30-150)
--- NOTE | 2018-05-30 10:05 | DSE_ITS ---
Date of service: 05/30/18 Time of Service: 10:01 DS: Diagnosis Discharge Diagnosis (1) Small bowel obstruction, partial: Status: Resolved (2) Pancreatitis: Status: Acute Discharge Plan Disposition Patient Disposition: HOME Condition: Good Discharge Details Chief Complaint: Abd Prob Reason For Visit: SMALL BOWEL OBSTRUCTION Admit Date/Time: 05/29/18 01:33 Admit Provider: Tristin Rubalcava Attending Provider: Dimitry Campbell Primary Care Provider: Satnam Barnes ED Provider: Vin [facility] Course Hospital Course: 73 y/o male who presented to the ED on 05/28/[address] was read as suggestive of small bowel obstruction with a loop of bowel in a ventral hernia. Patient had had 2 prior laparoscopic ventral hernia repairs with mesh. On my review of the CT, this did not appear to be a loop of bowel but rather a small chronic seroma. Mildly dilated proximal small bowel noted. Patient also had an elevated lipase in the 800's. Findings presumably related to a mild pancreatitis. No evidence of gallstones or biliary tract obstruction on CT. NG was initially placed in the ED with only scant output. Abdominal pain resolved. Patient had a BM. He was started on clear liquids which he tolerated well without nausea, vomiting, or abdominal pain. Lipase normalized by 05/30/18. Diet advanced to normal consistency and patient to be discharged home if tolerating diet. Home Meds and New Rx's Prescriptions: Continue atorvastatin 40 MG tablet 80 mg PO DAILY RF: 0 metformin 500 MG tablet 1,000 mg PO BID RF: 0 aspirin 325 MG tablet 325 mg PO DAILY RF: 0 potassium chloride [Klor-Con] 20 MEQ packet 20 meq PO BID RF: 0 losartan 100 MG tablet 100 mg PO DAILY RF: 0 nebivolol [Bystolic] 10 MG tablet 20 mg PO DAILY RF: 0 albuterol sulfate [ProAir HFA] 8.5 GM HFA aerosol inhaler 1 puff Inhalation Q6H PRN PRNRF: 0 budesonide-formoterol [Symbicort] 10.2 GM HFA aerosol inhaler 2 puff Inhalation BID RF: 0 triamcinolone acetonide 15 GM cream 15 gm Topical BID PRNRF: 0 penicillin V potassium 500 MG tablet 1 tab PO BID RF: 0 furosemide 80 MG tablet 40 mg PO BID RF: 0 amlodipine 10 MG tablet 10 mg PO BID RF: 0 bupropion HCl 150 MG tablet extended release 12 hr 150 mg PO BID RF: 0 doxazosin 4 MG tablet 4 mg PO DAILY RF: 0 cholecalciferol (vitamin D3) [Vitamin D3] 2,000 UNIT capsule 1 cap PO DAILY RF: 0 finasteride [Proscar] 5 mg Tablet 5 mg PO DAILY RF: 0 Discharge Instructions Instructions: Pancreatitis (DC) Stand Alone Forms: Nursing Discharge Form Referrals: Satnam Barnes MD [Primary Care Provider] - (Hospital follow-up with PCP in 1-2 weeks.) Activity:: Activity as Tolerated Equipment/Supplies:: No Equipment Needed Diet:: As Tolerated Discharge Orders Discharge Orders: Discharge Order (Routine); Ordered 05/30/18 Ordered By: Dimitry Campbell Discharge Data Discharge Comment: Discharge when tolerating normal consistency diet. Exam Const General: cooperative, comfortable and no acute distress Orientation: alert and oriented x3 HENMT Head: normocephalic and atraumatic Eyes Sclera: sclerae normal Resp Effort & Inspection: normal respiratory effort and able to speak in complete sentences GI Inspection: non-distended Palpation: soft, not firm, no guarding and nontender Skin General skin exam: no rashes or lesions noted and no jaundice Neuro General: alert and oriented x3 Speech: speech normal DS: Data Vitals/I&O Vitals and I&O: Vital Signs Temperature 37 C 05/30/18 07:35 Temperature Source Tympanic 05/30/18 07:35 Pulse 57 L 05/30/18 07:35 Pulse Rhythm Regular 05/30/18 09:04 Respiratory Rate 18 05/30/18 07:35 Respiratory Effort 05/30/18 09:04 Respiratory Depth Normal 05/30/18 09:04 Respiratory Pattern Normal 05/30/18 09:04 Blood Pressure 157/79 H 05/30/18 07:35 Blood Pressure Position Supine 05/28/18 22:21 Pulse Oximetry 95 05/30/18 07:35 Oxygen Delivery Method Room Air 05/30/18 07:35 Oxygen Flow Rate 0 05/30/18 07:35 Pain Level 0 05/30/18 07:35 Intake & Output 05/29/18 05/29/18 05/30/18 11:59 23:59 11:59 Intake Total 2250 / 2250 1273.333 / 6671.356 7804.333 / 1223.333 Output Total 800 / 800 Balance 1450 / 1450 1273.333 / 2207.305 4923.333 / 1223.333 Weight 105.7 kg Intake: IV 1999 903.333 / 903.333 923.333 / 923.333 Oral 250 / 250 370 / 370 300 / 300 Output: Urine 800 / 800 Other: Urine Color Yellow Yellow Urine Appearance Clear Clear Clear Urine Odor Normal Comment pt gets up to void AD CRISTA. Stool Size Small Stool Characteristics Soft Brown Voiding Methods Toilet Toilet Toilet Labs on day of discharge: Labs from last 24 hours 05/30/18 05/29/18 06:35 09:14 Sodium 144 140 Potassium 3.5 3.6 Chloride 105 104 Carbon Dioxide 31.0 26.9 Anion Gap 8.0 9.1 BUN 9 12 Creatinine 0.81 0.86 Estimated GFR/1.73 m2 >= 60.00 >= 60.00 Glucose 129 H 142 H Calcium 8.5 8.5 Total Bilirubin 1.1 H 1.0 AST 21 24 ALT 25 24 Alkaline Phosphatase 118 H 122 H Total Protein 6.6 6.5 Albumin 3.6 3.5 Triglycerides 90 Total Cholesterol 143 LDL Cholesterol Direct 59 HDL Cholesterol 72 H Lipase 105 692 H [facility] Medical History CAD (coronary artery disease) (Chronic) COPD (chronic obstructive pulmonary disease) (Chronic) Diabetes type 2, controlled (Chronic) Hypercholesterolemia (Chronic) Hypertension (Chronic) Sleep apnea (Chronic) Social History Smoking/Tobacco Use Status: Never Surgical History S/P coronary artery stent placement (Inactive) S/P hernia repair (Inactive) S/P shoulder surgery (Inactive) Total knee replacement status (Inactive)
--- NOTE | 2018-05-30 10:38 | PHARADMIT ---
Admission Pharmacy Clinical Review SMALL BOWEL OBSTRUCTION Code Status Full Code Current Weight Wgt-105.7 kg Renally Cleared and Narrow Therapeutic Index Meds CrCl~ 80 mL/min Meds-OK QTc Value / Action Taken none current BP Control, Fever BP- 157/79 Tmax- 37.1C Electrolytes reviewed Na- 144 K+3.5 DVT Prophylaxis ASA, Opiate Usage / Scheduled Bowel Regimen Ordered Yes No Plt/SCr for Heparin / Enoxaparin Plts-201 SCr- 0.81 INR for Warfarin na H/H stable, WBC/Bands H&H- 13.7/40.0 WBC- 7.37 Antibiotic appropriateness NA Cultures and Sensitivities NA Surgical ABX d/c within 24 hr NA DM control / Insulin Dosing BG- 129 Metformin Heart Failure (Check EF%) (ALECIA's, B-Block, Diuretics) Doxazosin, Losartan, Norvasc, Lasix, Nebivolol IV to PO Switch No Home Meds Reviewed Yes Home Meds Not Ordered Pen-V, Comments
--- NOTE | 2018-05-30 11:28 | PDOC.CMDIS ---
- If Service Date Differs Date of service: 05/30/18 Time of Service: 11:29 LACE Index Scoring Tool - Questions: Length of Stay (in days): 2 Acuity (Admit via E.D.?): Yes Comorbidities: Chronic Pulmonary Disease E.D. Visits: 3 - Answers: Total Score: 10 Risk of Readmission: High Risk Care Management Discharge Reason for Hospitalization: Small bowel obstruction. Discharge Plan: Corona will discharge home when medically ready per MD. Anticipate patient will discharge with no services and follow up with his PCP and surgical services. Corona will transport via private vehicle with his , Nelia. Patient/Family Education Needs: Discharge education, any limitations, and follow up plan of care. Ask Me Three discussion.
== END 2018-05-30 12:08 | disposition home or self-care (01) | DRG 388 ==
LOC: ER 05-29 01:38 → MS 05-29 07:59
PROVIDERS: Student in an Organized Health Care Education/Training Program; Admitting Provider Surgery; Emergency Provider Emergency Medicine; PCP General Practice; Visit Provider Surgery
DX: K56.600 Partial intestinal obstruction, unspecified as to cause (principal); K85.90 Acute pancreatitis without necrosis or infection, unspecified; R93.5 Abnormal findings on diagnostic imaging of other abdominal regions, including retroperitoneum; E11.9 Type 2 diabetes mellitus without complications; Z79.84 Long term (current) use of oral hypoglycemic drugs; J44.9 Chronic obstructive pulmonary disease, unspecified; E78.00 Pure hypercholesterolemia, unspecified; I10 Essential (primary) hypertension; G47.33 Obstructive sleep apnea (adult) (pediatric)
CPT/HCPCS: 36415; 80053; 80061; 83690; 83721; 94640; 96361; 96374; 96375; 96376; 99222; 99238; 99285; 74177; 81003; 81015; 83605; 85025; J2405; J3490

== ENCOUNTER 2018-06-12 09:55 | Outpatient (CLI) | payer MEDICARE, SELFPAY ==
[2018-06-12 13:38] LABS: Lipase 264 U/L (73-393)
== END 2018-06-12 10:15 ==
PROVIDERS: PCP General Practice; Visit Provider General Practice
DX: K85.90 Acute pancreatitis without necrosis or infection, unspecified (principal)
CPT/HCPCS: 36415; 83690

== ENCOUNTER → 2019-04-21 11:24 | Outpatient (BNVA) | payer OTHER, SELFPAY | PROVIDERS: PCP Nurse Practitioner Adult Health; Referring Provider Nurse Practitioner Adult Health; Visit Provider Surgery | DX: D17.0 Benign lipomatous neoplasm of skin and subcutaneous tissue of head, face and neck (principal); L72.0 Epidermal cyst; R19.4 Change in bowel habit; D36.9 Benign neoplasm, unspecified site | CPT/HCPCS: 99213 ==

== ENCOUNTER 2019-05-01 10:35 | Outpatient (CLI) | payer OTHER, SELFPAY ==
[2019-05-01 11:30] LABS: Hemoglobin A1C 6.4 % (4.5-6.2)
[2019-05-01 12:25] LABS: ALT 22 U/L (16-63); AST 29 U/L (15-37); Albumin 4.1 g/dL (3.4-5.0); Alkaline Phosphatase 132 U/L (46-116); Anion Gap 12.8 mmol/L (3-11); BUN 14 mg/dL (7-18); Bilirubin, Total 1.1 mg/dL (0.2-1.0); CO2 28.2 mmol/L (21.0-32.0); CREATININE 0.94 mg/dL (0.70-1.30); Calculated LDL 61 mg/dL; Chloride 101 mmol/L (98-107); Cholesterol 163 mg/dL (50-200); Glucose 107 mg/dL (70-100); HDL Cholesterol 89 mg/dL (40-60); Potassium 3.8 mmol/L (3.5-5.1); Sodium 142 mmol/L (136-145); Total Protein 6.9 g/dL (6.4-8.2); Triglyceride 66 mg/dL (30-150)
[2019-05-01 14:57] LABS: COMMENT (LAB VIEW ONLY) < 13.00 mg/dL
== END 2019-05-01 10:55 ==
PROVIDERS: PCP Nurse Practitioner Adult Health; Visit Provider Nurse Practitioner Adult Health
DX: I10 Essential (primary) hypertension (principal); E78.5 Hyperlipidemia, unspecified; I25.10 Atherosclerotic heart disease of native coronary artery without angina pectoris; E11.9 Type 2 diabetes mellitus without complications
CPT/HCPCS: 36415; 80053; 80061; 82043; 82570; 83036

== ENCOUNTER 2019-05-10 07:47 | Day surgery (SDC) | payer OTHER, SELFPAY ==
--- NOTE | 2019-05-10 06:58 | W.PM.OP ---
Date of service: 05/10/19 Time of Service: 10:39 Operative Note Operative Note DATE OF PROCEDURE: 05/10/19 PRE-OP DIAGNOSIS: Lipoma and inclusion cysts POST-OP DIAGNOSIS: same PROCEDURE: Excision of lipoma of head and inclusion cysts x2 SURGEON: Monica De La Paz ANESTHESIA: MAC and local PATHOLOGY: none sent COMPLICATIONS: None Patient was transported to: same day Patient's condition: stable Indications: Mr. Romo is a pleasant 74 year old with 3 lesions on his head. One is a lipoma and 2 are inclusion cysts that he would like to have removed. Risks, benefits and complications were reviewed with him. Questions were entertained and answered to his satisfaction and he wished to proceed. No guarantees were given or implied. Procedure Description: After informed consent was obtained the patient was taken to the operating room and placed in a supine position. The name, date of , allergies to medications, procedure to be done and location, were reviewed. Fire risk was assessed. Hair was clipped over the palpable lesions. Next the skin was cleaned with chlorhexidine and injected with the above anesthetic. The area was draped in a standard fashion. Then an incision measuring 2.5 cm was made over the lipoma on the temporal area with a 15 blade. The dissection was taken down through the conective tissue, aponeurosis and loose areolar tissue using cautery and curved Litlers. Dissection was done around the lipoma with curved scissors. Bleeding was stopped with cuatery. Once the lipoma was removed the loose areolar tissue was re-approximated with 4-0 vicryl. The dermis was closed with 4-0 proline interrupted sutures. Next a 1.5 cm incision was made over the smaller inclusion cyst on the scalp. Dissection was done around the capsule using cautery and Littlers. Once the capsule was removed the dermis was re-approximated with 3-0 proline interrupted sutures. An incision measuring 2 .5 cm was made over the second inclusion cyst. Dissection was again done with scissors and cautery around the cyst capsule. Once removed the dermis was re-approximated with 3-0 proline. Next an incision was made over the lipoma on the patients forehead. The lipoma was dissected using scissors and cautery. Once completely removed the dermis was re-approximated using 3-0 proline. The skin was cleaned and dried. Mastasol and steri-strips were applied over the forehead incision. The skin was cleaned and dried and steri-strips were applied. The patient was allowed to sit up slowly. The patient tolerated the procedure well and there were no immediate complications. He was taken back to [facility] surgery in stable condition. Needle, instrument and sponge count was correct at the end of the case.
--- NOTE | 2019-05-10 07:10 | W.PM.DSUDISC ---
Discharge Plan Disposition Patient Disposition: HOME Condition: Good Discharge Details Reason For Visit: lipoma and inclusion cysts Attending Provider: Monica De La Paz Primary Care Provider: Jessie Bose Home Meds and New Rx's Prescriptions: New acetaminophen [Tylenol] 325 mg capsule 650 mg PO Q6H PRN (Reason: fever or pain) Qty: 30 RF: 0 ibuprofen 400 mg tablet 400 mg PO Q6H PRN (Reason: fever or pain) Qty: 30 RF: 0 Continued aspirin 81 mg tablet,delayed release (DR/EC) 81 mg PO DAILY RF: 0 furosemide [Lasix] 40 mg tablet 40 mg PO BID RF: 0 amoxicillin 500 mg capsule 500 mg PO ONCE RF: 0 triamcinolone acetonide 0.1 % cream 1 applic Topical BID PRN (Reason: skin irritation) Qty: 30 RF: 1 atorvastatin 40 MG tablet 80 mg PO HS RF: 0 potassium chloride [Klor-Con] 20 MEQ packet 20 meq PO BID RF: 0 losartan 100 MG tablet 100 mg PO DAILY RF: 0 metformin 500 mg tablet 1,000 mg PO BID RF: 0 albuterol sulfate [ProAir HFA] 8.5 GM HFA aerosol inhaler 1 puff Inhalation Q6H PRN PRNRF: 0 Symbicort 10.2 GM HFA aerosol inhaler 2 puff Inhalation BID RF: 0 penicillin V potassium 500 MG tablet 1 tab PO BID RF: 0 amlodipine 10 MG tablet 10 mg PO BID RF: 0 bupropion HCl 150 MG tablet extended release 12 hr 150 mg PO BID RF: 0 cholecalciferol (vitamin D3) [Vitamin D3] 2,000 UNIT capsule 1 cap PO DAILY RF: 0 finasteride [Proscar] 5 mg Tablet 5 mg PO HS RF: 0 nitroglycerin 0.4 mg Tablet, Sublingual 0.4 mg SUBLINGUAL DIRECTED RF: 0 Discharge Instructions Additional Instructions: Activity at Home after surgery: 1. Make sure you walk outside at least 4 times per day 2. You should be able to climb a flight of stairs 3. No driving while in pain or taking pain medications 4. No strenuous activity or heavy lifting for 2 weeks (laparoscopic surgery) or 4 weeks (open surgery) Diet, Nutrition, & wound healin. Avoid alcohol until after you are recovered from your surgery 2. Make sure to eat plenty of lean protein (meat, fish, eggs, cottage cheese, beans) 3. Eat a variety of fruits and vegetables. Eat plenty of high fiber foods to avoid constipation. 4. Drink plenty of liquids to stay hydrated and avoid constipation Pain Medications: 1. Tylenol 650 mg every 6 hours and Ibuprofen 400 mg every 6 hours 2. If a narcotic has been prescribed take as directed only for breakthrough pain For Constipation: 1. Take Milk of Magnesia or MiraLax as needed for constipation Other: 1. You may shower daily. Do not scrub the incisions 2. Do not soak the incisions for 1 week 3. You may alternate ice and heat as needed for pain and swelling Wound Care: 1. Keep the incisions clean and dry Please call our office if you develop: 1. Fevers >101.5 2. Nausea or Vomiting 3. Worsening pain 4. Redness and thick discharge from the wounds If after hours please call the Hospital at and ask to speak to the on-call surgeon Activity:: Activity as Tolerated Diet:: As Tolerated Discharge Orders Discharge Orders: Discharge Order (Routine); Ordered 05/10/19 Ordered By: Monica De La Paz DS: Diagnosis Discharge Diagnosis (1) Epidermal inclusion cyst: Status: Acute (2) Lipoma of head: Status: Acute
[2019-05-10 08:08] VITALS: BP 187/92; PULSE 62; RESP 16; TEMP 36.4; O2SAT 97
[2019-05-10 08:13] VITALS: BP 187/92; PULSE 62; RESP 16; TEMP 36.4; O2SAT 97
[2019-05-10] MEDS: Lidocaine 1% Multi-Dose 50 ML VIAL (10:13)
== END 2019-05-10 10:56 | disposition home or self-care (01) ==
LOC: SUR 07:48
PROVIDERS: PCP Nurse Practitioner Adult Health; Visit Provider Surgery
PROC: (CPT 21012; principal; 2019-05-10 09:30)
PROC: (CPT 21012; 2019-05-10 09:30)
DX: L72.0 Epidermal cyst (principal); D17.0 Benign lipomatous neoplasm of skin and subcutaneous tissue of head, face and neck; I10 Essential (primary) hypertension; G47.33 Obstructive sleep apnea (adult) (pediatric); Z99.89 Dependence on other enabling machines and devices; J44.9 Chronic obstructive pulmonary disease, unspecified; E11.9 Type 2 diabetes mellitus without complications; Z79.84 Long term (current) use of oral hypoglycemic drugs
CPT/HCPCS: 21012; 11422; 11423

== ENCOUNTER 2019-05-16 06:04 | Day surgery (SDC) | payer OTHER, SELFPAY ==
--- NOTE | 2019-05-01 09:08 | SUR.PREOP ---
04/30/19 Two messages have been left for this patient 04/28/19 @9904, 04/30/19 0900.
--- NOTE | 2019-05-02 06:47 | W.COLOREPORT ---
Date of service: 05/02/19 Colonoscopy Report Date of procedure: 05/02/19 Pre-op diagnosis general: Change in bowel habits and Hx of tubular adenomas Procedure: Colonoscopy Surgeon: Monica De La Paz Anesthesia proc note operative: other (General/ ASA /) Complications: None Disposition: same day Indications: Mr. Romo is a pleasant 74-year-old gentleman seen in the office originally for some lipomas and inclusion cyst that he wanted removed. On rating his family doctor's note and talking to the patient he also has had some changes in bowel habits with increased loose stools. He has lost some weight although I am unsure as to whether it is really unintentional. He did have knee surgery and is become more active he sounds like he is eating better so some of his weight loss may have been due to that. He did have a colonoscopy in 2016 and he was noted to have 2 tubular adenomas. Colonoscopy was recommended due to the changes in bowel habits and his history of polyps. Risks, benefits and complications have been reviewed. Complications include but are not limited to bleeding, pain, perforation, missed small lesion/polyp, sore throat, aspiration and adverse reaction to the medications. Questions were entertained and answered to their satisfaction and they wished to proceed. No guarantees were given or implied. Prep: Miralax/Dulcolax Procedure Description: After informed consent was obtained the patient was taken to the procedure room and placed in a left decubitous position. Monitors were applied and a time out was done. The patients name, date of , procedure, allergies to medications and metal in their body was reviewed. The patient was then sedated. Once sedated and comfortable a rectal exam was done. External exam was normal. Internal exam revealed a normal sphincter tone and no palpable masses. The prostate []. The scope was then introduced and retro-flexed. [] internal hemorrhoids were identified. The scope was then advanced to the cecum [] difficulty. The TI and appendiceal orifice were identified. The prep was []. The scope was then slowly retracted over [] minutes back into the rectum. Polyps were removed at []. The scope was removed and the patient was woken up and taken back to Same day surgery in stable condition. The patient tolerated the procedure well and there were no immediate complications. Follow up: The patient should follow up in [] years unless they develop changes in bowel habits or other new gastrointestinal complaints.
--- NOTE | 2019-05-02 06:49 | W.PM.DSUDISC ---
Discharge Plan Disposition Patient Disposition: HOME Condition: Good Discharge Details Reason For Visit: Change in bowel habits Attending Provider: Monica De La Paz Primary Care Provider: Jessie Bose Home Meds and New Rx's Prescriptions: Continued aspirin 81 mg tablet,delayed release (DR/EC) 81 mg PO DAILY RF: 0 furosemide [Lasix] 40 mg tablet 40 mg PO BID RF: 0 amoxicillin 500 mg capsule 500 mg PO ONCE RF: 0 triamcinolone acetonide 0.1 % cream 1 applic Topical BID PRN (Reason: skin irritation) Qty: 30 RF: 1 atorvastatin 40 MG tablet 80 mg PO DAILY RF: 0 potassium chloride [Klor-Con] 20 MEQ packet 20 meq PO BID RF: 0 losartan 100 MG tablet 100 mg PO DAILY RF: 0 metformin 500 mg tablet 1,000 mg PO BID RF: 0 albuterol sulfate [ProAir HFA] 8.5 GM HFA aerosol inhaler 1 puff Inhalation Q6H PRN PRNRF: 0 Symbicort 10.2 GM HFA aerosol inhaler 2 puff Inhalation BID RF: 0 penicillin V potassium 500 MG tablet 1 tab PO BID RF: 0 amlodipine 10 MG tablet 10 mg PO BID RF: 0 bupropion HCl 150 MG tablet extended release 12 hr 150 mg PO BID RF: 0 cholecalciferol (vitamin D3) [Vitamin D3] 2,000 UNIT capsule 1 cap PO DAILY RF: 0 finasteride [Proscar] 5 mg Tablet 5 mg PO DAILY RF: 0 nitroglycerin 0.4 mg Tablet, Sublingual 0.4 mg SUBLINGUAL DIRECTED RF: 0 Discharge Instructions Instructions: Colonoscopy (DC) Additional Instructions: Findings: Follow up: Please call if you develop: fevers >101.5 Nausea or Vomiting Abdominal pain that is not transient DAY SURGERY UNIT POST ENDOSCOPY INSTRUCTIONS 1. Because there will be medication in your system for the next 24 hours, you may feel a little sleepy. Your coordination will be affected. Therefore: a. Do not drive or operate dangerous equipment for 24 hours. b. Do not drink alcohol beverages for 24 hours (not even beer). c. Plan to go home and rest for the day. 2. Generally there are no restrictions on your activity after a day or so has gone by, but you may feel a bit fatigued for a few days. 3 After you arrive home you may have a light meal and return to a normal diet as you can tolerate it without feeling sick to your stomach. 4. After surgery, you may feel pain or discomfort. This should be only transient, but if it persists please contact your doctor. 5. If there are any questions regarding the findings of your procedure, please feel free to contact your doctor. 6. If you are unable to contact your doctor with a problem, contact the hospital at [phone]. 7. Continue all your regular medications unless directed otherwise. I understand the above instructions and have no questions. Signature of Patient or Responsible Adult Escort Date/Time Name of Responsible Adult Escort Signature of Nurse Date/Time Activity:: Activity as Tolerated Diet:: As Tolerated DS: Diagnosis Discharge Diagnosis (1) S/P colonoscopy: Status: Acute
--- NOTE | 2019-05-15 08:43 | DSU.FORM ---
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
[2019-05-16 06:26] VITALS: BP 157/86; PULSE 64; RESP 18; TEMP 36.7; O2SAT 98
--- NOTE | 2019-05-16 06:35 | W.COLOREPORT ---
Date of service: 05/16/19 Time of Service: :37 Colonoscopy Report Date of procedure: 05/16/19 Pre-op diagnosis general: Change in bowel habits Post-op diagnosis procedure note: other (Multiple polyps and mild diverticulosis) Procedure: Colonoscopy with polypectomy Surgeon: Monica De La Paz Anesthesia proc note operative: other (General/ ASA /Will Sanchez CRNA) Estimated blood loss (mL): 4 Pathology: other (Transverse Polyps x4, cecal polyps x3, ascending polyp x4, descending polyp x2) Complications: None Disposition: same day Indications: Mr. Romo is a pleasant 74-year-old gentleman whom I saw in the office. He has been having increasing episodes of diarrhea with incontinence. He said last colonoscopy was over 10 years ago. He denies any bleeding. Repeat colonoscopy was recommended. Risks, benefits and complications have been reviewed. Complications include but are not limited to bleeding, pain, perforation, missed small lesion/polyp, sore throat, aspiration and adverse reaction to the medications. Questions were entertained and answered to their satisfaction and they wished to proceed. No guarantees were given or implied. Prep: Miralax/Dulcolax Procedure Start Time: :37 Procedure End Time: 08:25 Retraction Time: 38 minutes Findings: 13 polyps found throughout the colon. All removed with forceps Mild diverticulosis of the descending and sigmoid colon. Procedure Description: After informed consent was obtained the patient was taken to the procedure room and placed in a left decubitous position. Monitors were applied and a time out was done. The patients name, date of , procedure, allergies to medications and metal in their body was reviewed. The patient was then sedated. Once sedated and comfortable a rectal exam was done. External exam was normal. Internal exam revealed a normal sphincter tone and no palpable masses. The prostate was smooth. The scope was then introduced and retro-flexed. No internal hemorrhoids, masses or polyps were identified on retro-flexion. The scope was then advanced to the cecum without difficulty. The TI and appendiceal orifice were identified. The prep was adequate. The scope was then slowly retracted over 38 minutes back into the rectum. Polyps were removed with cold forceps in the cecum x3, ascending colon x4, transverse colon x4 and descending colon x2. There was also mild diverticulosis of the descending and sigmoid colon. The scope was removed and the patient was woken up and taken back to Same day surgery in stable condition. The patient tolerated the procedure well and there were no immediate complications. Follow up: The patient should follow up in 1-3 years unless they develop changes in bowel habits or other new gastrointestinal complaints.
--- NOTE | 2019-05-16 06:39 | W.PM.DSUDISC ---
Discharge Plan Disposition Patient Disposition: HOME Condition: Good Discharge Details Reason For Visit: Change in bowel habits Attending Provider: Monica De La Paz Primary Care Provider: Jessie Bose Home Meds and New Rx's Prescriptions: Continued aspirin 81 mg tablet,delayed release (DR/EC) 81 mg PO DAILY RF: 0 furosemide [Lasix] 40 mg tablet 40 mg PO BID RF: 0 amoxicillin 500 mg capsule 500 mg PO ONCE RF: 0 triamcinolone acetonide 0.1 % cream 1 applic Topical BID PRN (Reason: skin irritation) Qty: 30 RF: 1 atorvastatin 40 MG tablet 80 mg PO HS RF: 0 potassium chloride [Klor-Con] 20 MEQ packet 20 meq PO BID RF: 0 losartan 100 MG tablet 100 mg PO DAILY RF: 0 metformin 500 mg tablet 1,000 mg PO BID RF: 0 albuterol sulfate [ProAir HFA] 8.5 GM HFA aerosol inhaler 1 puff Inhalation Q6H PRN PRNRF: 0 Symbicort 10.2 GM HFA aerosol inhaler 2 puff Inhalation BID RF: 0 penicillin V potassium 500 MG tablet 1 tab PO BID RF: 0 bupropion HCl 150 MG tablet extended release 12 hr 150 mg PO BID RF: 0 amlodipine 10 mg tablet 10 mg PO DAILY RF: 0 cholecalciferol (vitamin D3) [Vitamin D3] 2,000 UNIT capsule 1 cap PO DAILY RF: 0 finasteride [Proscar] 5 mg Tablet 5 mg PO HS RF: 0 acetaminophen [Tylenol] 325 mg capsule 650 mg PO Q6H PRN (Reason: fever or pain) Qty: 30 RF: 0 ibuprofen 400 mg tablet 400 mg PO Q6H PRN (Reason: fever or pain) Qty: 30 RF: 0 nitroglycerin 0.4 mg Tablet, Sublingual 0.4 mg SUBLINGUAL DIRECTED RF: 0 Discharge Instructions Instructions: Colonoscopy (DC), Colorectal Polyps (DC), Diverticulosis (GEN) Additional Instructions: Findings: Diverticulosis Polyps x 13 Follow up: 1-3 years Please call if you develop: fevers >101.5 Nausea or Vomiting Abdominal pain that is not transient DAY SURGERY UNIT POST ENDOSCOPY INSTRUCTIONS 1. Because there will be medication in your system for the next 24 hours, you may feel a little sleepy. Your coordination will be affected. Therefore: a. Do not drive or operate dangerous equipment for 24 hours. b. Do not drink alcohol beverages for 24 hours (not even beer). c. Plan to go home and rest for the day. 2. Generally there are no restrictions on your activity after a day or so has gone by, but you may feel a bit fatigued for a few days. 3 After you arrive home you may have a light meal and return to a normal diet as you can tolerate it without feeling sick to your stomach. 4. After surgery, you may feel pain or discomfort. This should be only transient, but if it persists please contact your doctor. 5. If there are any questions regarding the findings of your procedure, please feel free to contact your doctor. 6. If you are unable to contact your doctor with a problem, contact the hospital at [phone]. 7. Continue all your regular medications unless directed otherwise. I understand the above instructions and have no questions. Signature of Patient or Responsible Adult Escort Date/Time Name of Responsible Adult Escort Signature of Nurse Date/Time Activity:: Activity as Tolerated Diet:: High Fiber diet Discharge Orders Discharge Orders: Discharge Order (Routine); Ordered 05/16/19 Ordered By: Monica De La Paz DS: Diagnosis Discharge Diagnosis (1) S/P colonoscopy: Status: Acute (2) Diverticulosis: Status: Acute (3) Colorectal polyps: Status: Acute
[2019-05-16] MEDS: Lactated Ringers 1,000 ML 80 ML IV (06:53)
--- NOTE | 2019-05-16 07:44 | BOWEL_PTH ---
PATIENT: Corona Romo LOC: [facility] U#:[id number] AGE/SX: 74/M ROOM: RE05/16/[address]: Monica De La Paz MD : [id number] BED: DIS: 05/16/2019 SPEC #: [id number] RECD: 05/16/19 12:45 STATUS: ZULEIKA RE #: [id number] MINI: 05/16/19 07:[address]: Monica De La Paz DEPT: Surgical Specimen RECD BY: Yessica Short ENTERED: 05/16/19 12:48 SP TYPE: Bowel OTHR DR: Jessie Bose, MELISSA Tissues: 1 - BIOPSY BOWEL 2 - BIOPSY BOWEL 3 - BIOPSY BOWEL 4 - BIOPSY BOWEL Procedures: GROSS AND MICRO LEVEL 4 Comments: [id number]
[2019-05-16 08:46] VITALS: PULSE 56; RESP 20; O2SAT 97
[2019-05-16 08:52] VITALS: PULSE 57; RESP 18; O2SAT 98
[2019-05-16 09:07] VITALS: BP 152/91; PULSE 58; RESP 18; TEMP 36.5; O2SAT 96
== END 2019-05-16 09:46 | disposition home or self-care (01) ==
PROVIDERS: PCP Nurse Practitioner Adult Health; Visit Provider Surgery
PROC: 0DJD8ZZ Inspection of Lower Intestinal Tract, Via Natural or Artificial Opening Endoscopic (ICD-10-PCS; CPT 45378; principal; 2019-05-16 07:30)
DX: R19.4 Change in bowel habit (principal); D12.0 Benign neoplasm of cecum; D12.2 Benign neoplasm of ascending colon; D12.3 Benign neoplasm of transverse colon; D12.4 Benign neoplasm of descending colon; K57.30 Diverticulosis of large intestine without perforation or abscess without bleeding; J44.9 Chronic obstructive pulmonary disease, unspecified; E11.9 Type 2 diabetes mellitus without complications; Z79.84 Long term (current) use of oral hypoglycemic drugs; I10 Essential (primary) hypertension; G47.33 Obstructive sleep apnea (adult) (pediatric)
CPT/HCPCS: 45380; 88305

== ENCOUNTER → 2019-05-19 09:21 | Outpatient (BNVA) | payer OTHER, SELFPAY | PROVIDERS: PCP Nurse Practitioner Adult Health; Referring Provider Nurse Practitioner Adult Health; Visit Provider Surgery | DX: Z48.817 Encounter for surgical aftercare following surgery on the skin and subcutaneous tissue (principal); J44.9 Chronic obstructive pulmonary disease, unspecified; E11.9 Type 2 diabetes mellitus without complications; I10 Essential (primary) hypertension; Z79.84 Long term (current) use of oral hypoglycemic drugs ==

== ENCOUNTER 2019-12-06 11:56 | Outpatient (REF) | payer OTHER, SELFPAY ==
[2019-12-06 22:18] LABS: COMMENT (LAB VIEW ONLY) 87.89 mg/dL; Microalb ug/mg Crea 74.8 ug/mg Cr
== END 2019-12-06 12:16 ==
LOC: LBO 11:56
PROVIDERS: PCP Nurse Practitioner Adult Health; Visit Provider Nurse Practitioner Adult Health
DX: I10 Essential (primary) hypertension (principal); E11.9 Type 2 diabetes mellitus without complications; R68.89 Other general symptoms and signs
CPT/HCPCS: 82043; 82570; 84443

== ENCOUNTER 2020-09-02 10:20 | Outpatient (REF) | payer OTHER, SELFPAY ==
[2020-09-02 15:38] LABS: ALT 18 U/L (16-63); AST 17 U/L (15-37); Alkaline Phosphatase 142 U/L (46-116); BUN 21 mg/dL (7-18); Bilirubin, Total 1.3 mg/dL (0.2-1.0); CREATININE 0.9 mg/dL (0.70-1.30); Calcium 9.1 mg/dL (8.5-10.1); Calculated LDL 69 mg/dL (<100); Chloride 101 mmol/L (98-107); Cholesterol 177 mg/dL (<200); Glucose 113 mg/dL (74-106); HDL Cholesterol 91 mg/dL (40-60); Potassium 3.8 mmol/L (3.5-5.1); Sodium 139 mmol/L (136-145); Triglyceride 88 mg/dL (<150)
[2020-09-02 16:32] LABS: COMMENT (LAB VIEW ONLY) 54.69 mg/dL
[2020-09-02 16:45] LABS: Microalb ug/mg Crea 171.9 ug/mg Cr
== END 2020-09-02 10:21 | disposition home or self-care (01) ==
LOC: LBN 10:20
PROVIDERS: PCP Nurse Practitioner Adult Health; Visit Provider Nurse Practitioner Adult Health
DX: I10 Essential (primary) hypertension (principal); E11.9 Type 2 diabetes mellitus without complications; E78.5 Hyperlipidemia, unspecified
CPT/HCPCS: 80053; 80061; 82043; 82570

== ENCOUNTER 2020-12-04 04:30 | Outpatient (CLI) | payer OTHER, SELFPAY ==
[2020-12-04 13:51] LABS: Anion Gap 9.6 mmol/L (3-11); BUN 21 mg/dL (7-18); CO2 27.4 mmol/L (21.0-32.0); CREATININE 1.3 mg/dL (0.70-1.30); Calcium 8.6 mg/dL (8.5-10.1); Chloride 102 mmol/L (98-107); Estimated GFR 53.67 (mL/min/1.73m2); Glucose 155 mg/dL (74-106); Potassium 3.7 mmol/L (3.5-5.1); Sodium 139 mmol/L (136-145)
== END 2020-12-04 04:31 | disposition home or self-care (01) ==
LOC: LBO 04:30
PROVIDERS: PCP Nurse Practitioner Adult Health; Visit Provider Nurse Practitioner Adult Health
DX: I25.10 Atherosclerotic heart disease of native coronary artery without angina pectoris (principal); Z51.81 Encounter for therapeutic drug level monitoring
CPT/HCPCS: 36415; 80048

== ENCOUNTER 2021-07-07 12:25 | Emergency (ER) | payer MEDICARE, SELFPAY ==
[2021-07-07 12:32] VITALS: BP 179/68; PULSE 56; RESP 12; TEMP 36.7; O2SAT 97
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
== END 2021-07-07 13:20 | disposition home or self-care (01) ==
PROVIDERS: Emergency Provider Physician Assistant; PCP Nurse Practitioner Adult Health
DX: S80.812A Abrasion, left lower leg, initial encounter (principal); V43.62XA Car passenger injured in collision with other type car in traffic accident, initial encounter
CPT/HCPCS: 90471; 99284; 99283

== ENCOUNTER → 2021-11-20 14:15 | Outpatient (BNVA) | payer MEDICARE, SELFPAY | PROVIDERS: PCP Nurse Practitioner Adult Health; Referring Provider Nurse Practitioner Adult Health; Visit Provider Surgery | DX: Z86.010 Personal history of colon polyps (principal); R19.7 Diarrhea, unspecified; K57.90 Diverticulosis of intestine, part unspecified, without perforation or abscess without bleeding; E66.9 Obesity, unspecified; Z68.33 Body mass index [BMI] 33.0-33.9, adult; D36.9 Benign neoplasm, unspecified site; K85.90 Acute pancreatitis without necrosis or infection, unspecified; E11.9 Type 2 diabetes mellitus without complications | CPT/HCPCS: 99213 ==

== ENCOUNTER 2021-11-28 18:08 | Outpatient (REF) | payer MEDICARE, SELFPAY ==
[2021-11-28 14:47] LABS: C Diff PCR Negative (Negative)
[2021-11-29 12:55] LABS: Campylobacter PCR Negative (Negative); Salmonella PCR Negative (Negative); Shiga Toxin PCR Negative (Negative); Shigella/Enteroinvasive Ecoli Negative (Negative)
[2021-12-02 17:14] LABS: Pancreatic Elastase, F 71 mcg/g
== END 2021-11-28 18:09 | disposition home or self-care (01) ==
LOC: LBN 18:08
PROVIDERS: PCP Nurse Practitioner Adult Health; Visit Provider Surgery
DX: D36.7 Benign neoplasm of other specified sites (principal); E11.9 Type 2 diabetes mellitus without complications; K57.90 Diverticulosis of intestine, part unspecified, without perforation or abscess without bleeding; K85.90 Acute pancreatitis without necrosis or infection, unspecified; R19.7 Diarrhea, unspecified; Z68.33 Body mass index [BMI] 33.0-33.9, adult; E66.8 Other obesity
CPT/HCPCS: 87493; 87505; 82656; 83630

== ENCOUNTER 2022-01-28 01:16 | Outpatient (CLI) | payer MEDICARE, SELFPAY ==
--- OUTSIDE RECORDS SUMMARY | 2022-01-28 01:18 | XMS_ITS | Encounter Summary ---
:1945 [place] [address] Care Team Providers Name Role Phone Alexsandra Boseica MELISSA Primary Care Provider Reason for Visit Reason Onset Date Comments Medication Refill 01/20/2021 Encounter Details Date Type Department Care Team Description 01/20/2021 Refill [facility]iology [place] [facility] [place]ian Richards MD Medication Refill [facility] [place] [address] Cardiology [phone] [place], [place] [address] (Wo rk) Social History Tobacco Use Types Packs/Day Years Used Date Never Smoker Smokeless Tobacco: Never Used Alcohol Use Standard Drinks/Week Comments No 0 (1 standard drink = 0.6 oz pure pt rep orts he quit years ago. alcohol) alcoholic Alcohol Habits Answer Date Recorded How often do you have a drink Not asked containing alcohol? How many drinks containing alcohol Not asked do you have on a typical day when you are drinking? How often do you have six or more Not asked drinks on one occasion? Comment: pt reports he quit years ago. 02/07/2015 alcoholic Sex Assigned at Date Recorded Not on file documented as of this encounter Plan of Treatment Upcoming Encounters Date Type Specialty Care Team Description 03/12/2022 Appointment Cardiology Diane Garcia APRN [facility] [place] [address] [place] [address] (Wo rk) documented as of this encounter Visit Diagnoses Diagnosis Essential hypertension - Primary Unspecified essential hypertension documented in this encounter Care Teams Anchorer Relationship Specialty Start Date End Date Jessie Bose APRN PCP - General Geriatric Medicine 05/14/[address] [place] [address] documented as of this encounter
--- OUTSIDE RECORDS SUMMARY | 2022-01-28 01:18 | XMS_ITS | Encounter Summary ---
:1945 Author Organization [facility] [place] [address] Care Team Providers Name Role Phone Jessie Bose APRN Primary Care Provider Encounter Details Date Type Department Care Team Description 10/08/2021 Telephone [place] [facility] [place] Guerin LNA [facility] [place] [address] Social History Tobacco Use Types Packs/Day Years [...] on file documented as of this encounter Miscellaneous Notes Telephone Encounter - Carol Guerin LNA - 10/14/2021 9:35 AM EDT No return call to review chart prior to TH Visit with Dr. Richards on 10/14/21. documented in this encounter Plan of Treatment Upcoming Encounters Date Type Specialty Care Team Description 03/12/2022 Appointment Cardiology Diane Garcia APRN [facility] ER [address] [place] [address] (Wo rk) documented as of this encounter Visit Diagnoses Not on filedocumented in this encounter Care Teams Lpn Private Duty Relationship Specialty Start Date End Date Jessie Bose APRN PCP - General Geriatric Medicine 05/14/[address] [place] [address] documented as of this encounter
--- OUTSIDE RECORDS SUMMARY | 2022-01-28 01:18 | XMS_ITS | Encounter Summary ---
:1945 Author Organization [facility] [address] Care Team Providers Name Role Phone Jessie Bose APRN Primary Care Provider Reason for Referral Diagnostic Test (Routine) - Closed Specialty Diagnoses / Procedures Referred By Contact Refer red To Contact Cardiology Diagnoses Sinus bradycardia Lightheadedness Rian Richards MD [facility] Non-Inv Card Lab Procedures Ziopatch 48 Hrs-15 Days [facility] [place] [address] [place] [address] Referral ID Status Reason Start Date Expiration Date Visits V isits Requested Authorized [id number] Closed Specialty 10/15/2021 04/16/2022 1 1 Service Requested Reason for Visit Diagnostic Test (Routine) - Closed Specialty Diagnoses / Procedures Referred By Contact Refer red To Contact Cardiology Diagnoses Sinus bradycardia Lightheadedness Rian Richards MD [facility] Non-Inv Card Lab Procedures Ziopatch 48 Hrs-15 Days [facility] [place] [address] [place] [address] Referral ID Status Reason Start Date Expiration Date Visits V isits Requested Authorized [id number] Closed Specialty 10/15/2021 04/16/2022 1 1 Service Requested Encounter Details Date Type Department Care Team Description 10/15/2021 Hospital Encounter Non-Invasive [place], Sinus bra dycardia; Cardiology Lab [facility] [place] [id number] [phone] Social History Tobacco Use Types Packs/Day Years [...] on file documented as of this encounter Medications at Time of Discharge Medication Sig Dispensed Refills Start Date End Date spironolactone (Aldactone) Take 1 tablet by 90 tablet 0 05/2022 25 mg TabletIndications: mouth daily. Essential hypertension acetaminophen 325 mg Take by mouth. 0 05/10/2019 Capsule budesonide-formoteroL Inhale into the 0 3 (SYMBICORT) 160-4.5 lungs. mcg/actuation HFA Aerosol Inhaler triamcinolone (KENALOG) Apply topically. 0 2018 0.1 % Cream furosemide (LASIX) 40 mg Take 1 tablet by 180 tablet 0 07/04 TabletIndications: mouth 2 times Essential hypertension daily. Please ask patient to call biztalk administrator's office for appt.before further refills-he is overdue finasteride (PROSCAR) 5 mg daily. 0 9 Tablet aspirin 81 mg Tablet, Take 1 tablet by 30 tablet 3 03/15/20 18 Delayed Release mouth daily. (E.C.)Indications: Coronary artery disease involving [place] coronary artery of [place] heart without angina pectoris cholecalciferol, Vitamin Take 2,000 Units 0 D3, 50 mcg (2,000 unit) by mouth daily. Capsule amLODIPine (NORVASC) 10 mg Take 1 tablet by 90 tablet 3 TabletIndications: mouth daily. Essential hypertension nitroGLYcerin (NITROSTAT) Place 1 tablet 90 tablet 12 2017 0.3 mg Tablet, under the tongue SublingualIndications: every 5 minutes as Coronary artery disease needed for Chest with exertional angina pain. atorvastatin (LIPITOR) 80 Take 1 tablet by 0 08/12 mg Tablet mouth nightly. amoxicillin (AMOXIL) 500 Take 500 mg by 0 015 mg Capsule mouth as needed. doxazosin (CARDURA) 4 mg Take 4 mg by mouth 0 Tablet daily. losartan (COZAAR) 100 mg Take 100 mg by 0 Tablet mouth daily. metFORMIN (GLUCOPHAGE) 500 Take 1,000 mg by 0 mg tablet mouth 2 times daily (with meals). buPROPion SR (Wellbutrin Take 150 mg by 0 SR) 150 mg tablet mouth 2 times sustained-release 12 hr daily. albuterol (PROVENTIL Inhale 2 puffs 0 HFA;VENTOLIN HFA) 90 into the lungs mcg/Actuation inhaler every 4 hours as needed. Use with spacer penicillin v potassium 500mg, PO, BID 0 1 (VEETID) 500 mg tablet carvediloL (Coreg) 6.25 mg Take 1 tablet by 180 tablet 1 08/202012/11/2021 TabletIndications: mouth 2 times Essential hypertension daily (with meals). documented as of this encounter Plan of Treatment Upcoming Encounters Date Type Specialty Care Team Description 03/12/2022 Appointment Cardiology Diane Garcia, MELISSA [facility] C[facility]IOLOGY [place], [place] [address] (Wo rk) documented as of this encounter Procedures Procedure Name Priority Date/Time Associated Diagnosis Comme nts ZIOPATCH 48 HRS-15 Routine 10/15/2021 7:54 AM Sinus karin ycardia Results for this DAYS EDT Lightheadedness procedure ar e in the results section. documented in this encounter Results Ziopatch 48 Hrs-15 Days (10/15/2021 7:54 AM EDT) Specimen (Source) Anatomical Location Collection Method / Collectio n Time Received Time / Laterality Volume Narrative Matilda Damon MD - 10/31/2021 4:48 P M EDT [facility] ? Zio Patch Ambulatory Cardiac Event Monit or Report Duration of recording - ??11 days 3 hour s enrollment /Analysis time 6 days 15 hours Predominant rhythm: ?Sinus ? rhythm Maximum sinus rate: ?? 99 ?? bpm Minimum sinus rate: ??36 ??bpm Average heart rate: ??54 bpm Atrial ectopy 1.1% isolated supraventricular ectopy Rate couplets and triplets Ventricular ectopy Rare isolated, couplets, triplets Triggered events and diary entries No Triggered events No Diary entries Conclusions: ?? 1. Predominant rhythm is sinus 2. 1.1% isolated supraventricular ectopy 3. 3 SCT runs with longest 12.4 seconds 4. No atrial fibrillation 5. No clinically significant AV block 6. 4 pauses: ?Longest 3.8 seconds on 10/22 at 09:26 am ?Second longest 3.6 seconds on at 04:10 am ?Third longest 3.2 seconds on at 12:47 am Matilda Damon MD [facility] See link to pdf document of the primary data under Scans on Order below. Rian Richards MD [facility] ORDERABLES documented in this encounter Visit Diagnoses Diagnosis Sinus bradycardia Other specified cardiac dysrhythmias Lightheadedness Dizziness and giddiness documented in this encounter Care Teams Medical Physicist Relationship Specialty Start Date End Date Jessie Bose APRN PCP - General Geriatric Medicine 05/14/[address] [place] [address] documented as of this encounter
--- OUTSIDE RECORDS SUMMARY | 2022-01-28 01:18 | XMS_ITS | Encounter Summary ---
:1945 Author Organization [facility] [place] [address] Care Team Providers Name Role Phone Jessie Bose APRN Primary Care Provider Reason for Referral Diagnostic Test (Routine) - Closed Specialty Diagnoses / Procedures Referred By Contact Refer red To Contact Cardiology Diagnoses Sinus bradycardia Lightheadedness Rian Richards MD [facility] Non-Inv Card Lab Procedures Ziopatch 48 Hrs-15 [address] [facility] [address] [facility] [place] [address] [place] [address] Referral ID Status Reason Start Date Expiration Date Visits V isits Requested Authorized [id number] Closed Specialty 10/15/2021 04/16/2022 1 1 Service Requested Encounter Details Date Type Department Care Team Description 10/14/2021 TH Visit Cardiology at [facility] [place] Rian Richards Sinus bradycardia; (TeleHealth) [facility] MD Vern Talavera; [facility] hypertension [facility] [id number] Cardiology [phone] [place], [place] [address] Social History Tobacco Use Types Packs/Day Years [...] on file documented as of this encounter Patient Instructions Patient InstructionsRian Richards MD - 10/14/2021 9:27 AM EDT F/u in 1-2 months Needs a Zio mailed to him documented in this encounter Progress Notes Rian Richards MD - 10/14/2021 8:40 AM EDT Images from the original note were not included. [facility] [place] [address] Cardiology Clinic Note CC: CAD Patient Name: Corona Romo HPI: Corona Romo is a 76 y.o. 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 Last seen in November 2020. BP yesterday was bad but he doesn't recall the values. BP this AM was 163/77, HR: 42 bpm. In general, he has not been checking his BP routinely. Has a fairly new cuff. Has not had the accuracy checked though. Takes BP meds in the AM States he woke up yesterday and felt dizzy. States that he feels this way a lot. Has not lost consciousness or had any close calls. He is not sure whether the LH sensation is positional or orthostatic. Sxs are generally brief and pass on their own; does not have to sit down. 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 DJD ??? DM, Type II ??? Morbid obesity ??? History of total knee arthroplasty(LEFT) Z96.659 ??? CAD (coronary artery disease) I25.10 ??? Myocardial infarction, old I25.2 ??? Lipid disorder E78.9 ??? Hypertension I10 ??? RJ (obstructive sleep apnea) G47.33 ??? Osteoarthritis of right knee M17.11 ??? Preop testing - TKR Z01.818 ??? 12/11/2013 S/P Right total knee arthroplasty Z96.659 ??? Obesity E66.9 ??? Sinus node dysfunction I49.5 ??? Diabetes mellitus E11.9 Past Surgical History: Procedure Laterality Date ??? PRO TOTAL KNEE ARTHROPLASTY 12/11/2013 @TOTAL KNEE ARTHROPLASTY performed by Chandra Del Rosario MD at [facility] MAIN OR Current Outpatient Medications Medication Instructions ??? acetaminophen (TylenoL) 325 mg Capsule Oral ??? albuterol (PROVENTIL HFA;VENTOLIN HFA) 90 mcg/Actuation inhaler 2 puffs, EVERY 4 HOURS PRN ??? amLODIPine (NORVASC) 10 mg, Oral, DAILY ??? amoxicillin (AMOXIL) 500 mg, Oral, PRN ??? aspirin EC 81 mg, Oral, DAILY ??? atorvastatin (LIPITOR) 80 mg Tablet 1 tablet, Oral, NIGHTLY ??? budesonide-formoteroL (SYMBICORT) 160-4.5 mcg/actuation HFA Aerosol Inhaler Inhalation ??? buPROPion SR (BUDEPRION SR) 150 mg, 2 TIMES DAILY ??? carvediloL (COREG) 6.25 mg, Oral, 2 TIMES DAILY WITH MEALS ??? cholecalciferol (Vitamin D3) (CHOLECALCIFEROL (VITAMIN D3)) 2,000 Units, Oral, DAILY ??? doxazosin (CARDURA) 4 mg, Oral, DAILY ??? finasteride (PROSCAR) 5 mg Tablet DAILY ??? furosemide (LASIX) 40 mg, Oral, 2 TIMES DAILY, Please ask patient to call medication aid's office for appt.before further refills-he is overdue ??? losartan (COZAAR) 100 mg, DAILY ??? metFORMIN (GLUCOPHAGE) 1,000 mg, 2 TIMES DAILY WITH MEALS ??? nitroGLYcerin (NITROSTAT) 0.3 mg, Sublingual, EVERY 5 MIN PRN ??? penicillin v potassium (VEETID) 500 mg tablet 500mg, PO, BID ??? spironolactone (ALDACTONE) 25 mg, Oral, DAILY ??? triamcinolone (KENALOG) 0.1 % Cream Topical Social History Socioeconomic History ??? Marital status: Spouse name: Not on file ??? Number of children: Not on file ??? Years of education: Not on file ??? Highest education level: Not on file Occupational History ??? Not on file Tobacco Use ??? Smoking status: Never Smoker ??? Smokeless tobacco: Never Used Substance and Sexual Activity ??? Alcohol use: No Comment: pt reports he quit years ago. alcoholic ??? Drug use: No ??? Sexual activity: Not on file Other Topics Concern ??? Not on file Social History Narrative ??? Not on file Social Determinants of Health Financial Resource Strain: Not on file Food Insecurity: Not on file Transportation Needs: Not on file Physical Activity: Not on file Housing Stability: Not on file 24 HR Review of Systems: Constitutional: No fevers; chills or malaise Eyes: No visual disturbances ENT: No jaw pain; no difficulty swallowing or chewing, no mouth sores/mucositis Neck: No neck pain Cardiovascular: No Chest Pain; No palpitations Respiratory: No SOB; No COOPER; No cough GI/Abdomen: No Diarrhea; No Constipation; No Nausea/Vomiting : No dysuria; no hematuria Extremities: No swelling; No calf tenderness; no bleeding Neuro: No headaches; No sensory deficits Laboratory: No results for input(s): WBC, HGB, HCT, PLATELET in the last 168 hours. No results for input(s): NA, K, CL, CO2, BUN, CREATININE in the last 168 hours. No results for input(s): AST, ALT, ALKPHOS, BILITOT, BILIDIR in the last 168 hours. No results for input(s): CALCIUM, PHOS in the last 168 hours. EKG: Sinus rhythm, 64 bpm, normal ECG Diagnostic Studies: Nuclear Stress Test (2018) No fixed or reversible perfusion defects are present. Myocardial function: There is normal wall thickening and wall motion. Left ventricular ejection fraction: 68 % (normal greater than than 50%). Incidental CT findings: Coronary and aortic calcification. ?? IMPRESSION 1. No ischemia or scar. Left ventricular function is normal. 2. Coronary and aortic calcification. I have personally reviewed the above ECG & imaging studies ASSESSMENT: Corona Romo is a 76 y.o. 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 We did a telephone visit today to follow-up on his hypertension, which is notoptimally controlled at this time. He is not checking his blood pressure at home routinely, but in the last couple of days he has been checking it in anticipation of this visit. Systolic readings have been in excess of 160 mmHg. He is currently on 5 antihypertensive medications including carvedilol, am lodipine, losartan, spironolactone, and furosemide; also on doxazosin for BPH. He does mention episodic lightheadedness, which is a new symptom for him since our last visit. SinceI last saw him, his carvedilol was increased from 3.125 mg twice daily to 6.25 mg twice daily and his pulse is routinely in the 40s. It has been in this range previously, though he did not have symptoms. He states that his symptoms are very brief and resolve on their own in just a second; has never had loss of consciousness or any close calls. For now, I plan to continue his current medicines andhave a Zio mailed to him to further evaluate his sinus bradycardia and see whether there is an indication for proceeding with a pacemaker. If his symptoms worsen or change in any way, I will decrease the dose of his carvedilol. However, for now, with his blood pressure still poorly controlled, I am going to leave him on his current dose. If he ends up with a pacemaker, I will be able to augment his dose of carvedilol. I have asked him to check his blood pressure a couple of times during the day after taking his medicines. Currently, he is checking his blood pressure right around the time when he takes his morning medicines. Thus, he may have better BP control than reported. He is going to call the office in a week with his data. Of note, at our last visit together, I checked a manual blood pressure and got a systolic reading in the 120s. PLAN: # Hypertension, resistant not ideally controlled - continue carvedilol 6.25 mg BID, amlodipine 10 mg daily, losartan 100 mg daily, lasix 40 mg BID, and spironolactone 25 mg daily - not checking BP routinely; recent readings are not well controlled - reinforced checking BP after AM meds - Not using CPAP; needs to treat RJ; referral back to sleep med # Sinus node dysfunction # Episodic lightheadedness - sinus bradycardia improved with holding of nebivolol (bblocker) - HR in 40s today an on BP cuff at home; now c/o episodic lightheadedness but no syncope ?? # ASCVD, chronic, stable - No chest pain - 2018 stress test w/out ischemia or scar ?? # Lipid disorder - continue atorvastatin 80mg daily ?? # RJ (obstructive sleep apnea) - not using his CPAP machine - c/o daytime fatigue, frequent napping, and loud snoring - referral back to sleep medicine to discuss alternate masks, options, etc ?? # Diabetes mellitus Rian Richards MD, FACP, FACC Section of Cardiovascular Medicine [facility] Psychiatric Rnassociate professor of management [facility] documented in this encounter Plan of Treatment Upcoming Encounters Date Type Specialty Care Team Description 03/12/2022 Appointment Cardiology Diane Garcia APRN [facility] CARDIOLOGY [place], [place] [address] (Wo rk) documented as of this encounter Results Ziopatch 48 Hrs-15 Days (10/15/2021 7:54 AM EDT) Specimen (Source) Anatomical Location Collection Method / Collectio n Time Received Time / Laterality Volume Narrative Matilda Damon MD - 10/31/2021 4:48 P M EDT [facility] ? Zio Patch Ambulatory Cardiac Event Monit [...] at 12:47 am Matilda Damon MD Vanessa FAC FNLA See link to pdf document of the primary data under Scans on Order below. Rian Richards MD CARDIAC SERVICES ORDERABLES documented in this encounter Visit Diagnoses Diagnosis Sinus bradycardia Other specified cardiac dysrhythmias Lightheadedness Dizziness and giddiness Essential hypertension Unspecified essential hypertension Sinus bradycardia Other specified cardiac dysrhythmias Lightheadedness Dizziness and giddiness documented in this encounter Care Teams Redye Hand Relationship Specialty Start Date End Date Jessie Bose APRN PCP - General Geriatric Medicine 05/14/[address] [place] [address] documented as of this encounter
--- OUTSIDE RECORDS SUMMARY | 2022-01-28 01:18 | XMS_ITS | Encounter Summary ---
:1945 Author Organization [facility] [address] Care Team Providers Name Role Phone SukhdevLeticiaJessie MELISSA Primary Care Provider Encounter Details Date Type Department Care Team Description 12/10/2020 Telephone Cardiology at [facility] [place]in Kelley, [place] [address] Social History Tobacco Use Types Packs/Day [...] this encounter Miscellaneous Notes Telephone Encounter - Alin Kelley RN - 12/10/2020 12:47 PM EDT Received VM prompt from Ms. Darling, calling on behalf of Mr. Romo. VM message indicates desire to share recent BP logs. Call returned (x2). Unsuccessful in personal connection. Direct contact number for Interventional RNprovided. Awaiting successful connection. Rajan Kelley RNcredit assistant Team Nurse [facility] Ambulatory Cardiology documented in this encounter Plan of Treatment Upcoming Encounters Date Type Specialty Care Team Description 03/12/2022 Appointment Cardiology Diane Garcia APRN [facility] [place] [address] (Wo rk) documented as of this encounter Visit Diagnoses Not on filedocumented in this encounter Care Teams Commercial Teller Relationship Specialty Start Date End Date Jessie Bose APRN PCP - General Geriatric Medicine 05/14/[address] [place] [address] documented as of this encounter
--- OUTSIDE RECORDS SUMMARY | 2022-01-28 01:18 | XMS_ITS | Encounter Summary ---
:1945 Author Organization [place] [address] Care Team Providers Name Role Phone Jessie Bose APRN Primary Care Provider Reason for Referral Consultation (Routine) - Closed Specialty Diagnoses / Referred By Referred To Cont act Procedures Contact Electrophysiology / Diagnoses Sinus node dysfunction Lightheadedness; Evaluate pauses noted on Zio; ? Pacemaker necessity Rian Richards [facility] 4a Cardiology MD Ilan [facility] [place] Cardiology [phone] [place] [address] Referral ID Status Reason Start Date Expiration Date Visits V isits Requested Authorized [id number] Closed Consult, 11/17/2021 11/17/2022 1 1 Test & Treat Encounter Details Date Type Department Care Team Description 11/17/2021 Orders Only Cardiology at [facility] Rian Richards Sinus node dysfunction [facility] MD Ilan (Primary Dx) [place] [address] Cardiology [place], [place] [address] Social History Tobacco Use Types [...] Appointment Cardiology Diane Garcia APRN [facility] CARDIOLOGY [place], [place] [address] (Wo rk) Scheduled Referrals Name Type Priority Associated Order Schedule Diagnoses Referral to Cardiac Outpatient Routine Sinus node Ordered: Electrophysiology Referral dysfunction 11/17/2021 documented as of this encounter Visit Diagnoses Diagnosis Sinus node dysfunction - Primary Sinoatrial node dysfunction documented in this encounter Care Teams Operations Label Clerk Relationship Specialty Start Date End Date Jessie Bose APRN PCP - General Geriatric Medicine 05/14/[address] [address] documented as of this encounter
--- OUTSIDE RECORDS SUMMARY | 2022-01-28 01:18 | XMS_ITS | Encounter Summary ---
:1945 Author Organization [facility] [place] [address] Care Team Providers Name Role Phone Jessie Bose MELISSA Primary Care Provider Encounter Details Date Type Department Care Team Description 12/11/2020 Telephone [place] [facility] Elly Sarabia, RN [facility] [place] [address] Social History Tobacco Use Types Packs/Day [...] this encounter Miscellaneous Notes Telephone Encounter - Elly Sarabia, RN - 12/11/2020 3:34 PM EDT Patient and life partner Nelia was called with reply from Dr. Richards who recommends increasing patient's Coreg to 6.25mg BID and Spironolactone to 25mg daily. A new order was prepared for the Coreg dose and Nelia has enough Spironolactone at home to increase to one tablet daily. Nelia will call team nurse next Wednesday, or sooner if needed, for F/U on BP readings. She will ensure patient is well hydrated with water as well. All questions answered at this time and Nelia and patient agree with plan. Elly Holbrook RNcoke oven patcher Cardi[facility] General Team-[address] documented in this encounter Plan of Treatment Upcoming Encounters Date Type Specialty Care Team Description 03/12/2022 Appointment Cardiology Diane Garcia APRN [facility] CARDIOLOGY [place], [place] [address] (Wo rk) documented as of this encounter Visit Diagnoses Not on filedocumented in this encounter Care Teams Email Administrator Relationship Specialty Start Date End Date Jessie Bose APRN PCP - General Geriatric Medicine 05/14/20 [address] [place] [address] documented as of this encounter
--- OUTSIDE RECORDS SUMMARY | 2022-01-28 01:18 | XMS_ITS | Encounter Summary ---
:1945 Author Organization [facility] [place] [address] Care Team Providers Name Role Phone Jessie Bose APRN Primary Care Provider Reason for Referral Diagnostic Test (Routine) - New Request Specialty Diagnoses / Procedures Referred By Contact Refer red To Contact Cardiology Diagnoses Lightheadedness Dizziness Diane Garcia APRN [facility] Non-Inv Card Lab Procedures Echocardiogram Transthoracic [facility] [place] [address] [place] [address] Fax: Referral ID Status Reason Start Expiration Visits Visits Date Date Requested Authorized [id number] New Request Specialty 12/26/2021 12/26/2022 1 1 Service Requested Reason for Visit Consultation (Routine) - Closed Specialty Diagnoses / Referred By Referred To Cont act Procedures Contact Electrophysiology / Diagnoses Sinus node dysfunction Lightheadedness; Evaluate pauses noted on Zio; ? Pacemaker necessity Rian Richards [facility] Cardiology 4a Cardiology A, [facility] [place], [place] Cardiology [id number] [place] [address] Referral ID Status Reason Start Date Expiration Date Visits V isits Requested Authorized [id number] Closed Consult, 11/17/2021 11/17/2022 1 1 Test & Treat Encounter Details Date Type Department Care Team Description 12/26/2021 Office Visit Cardiology at [facility] Diane Garcia Lightheadedness; [facility] COMMUNITY SERVICE REPRESENTATIVE Sinus node dysfunction; Drive [facility] [place] [address] CARDIOLOGY [phone] [place], [place] [address] Social History Tobacco Use Types [...] on file documented as of this encounter Last Filed Vital Signs Vital Sign Reading Time Taken Comments Blood Pressure 152/75 12/26/2021 1:05 PM EDT Pulse 60 12/26/2021 1:05 PM EDT Temperature - - Respiratory Rate - - Oxygen Saturation 98% 12/26/2021 1:05 PM EDT Inhaled Oxygen Concentration - - Weight 100 kg (220 lb 6.4 oz) 12/26/2021 1:05 PM EDT Height 174 cm (5' 8.5) 12/26/2021 1:05 PM EDT Reported Body Mass Index 33.02 12/26/2021 1:05 PM EDT documented in this encounter Progress Notes Diane Garcia COMMUNITY SERVICE REPRESENTATIVE - 12/26/2021 1:30 PM EDT Cardiac Electrophysiology Clinic Visit Subjective: Patient ID: Corona Romo is a 76 y.o. male. CC: New patient referral from Dr. Rian Richards for lightheadedness and pauses. HPI: 76 y.o. male with past medical history of resistant HTN, HLD, CAD/NSTEMI medical management, obesity, DM2, RJ (not on CPAP currently) who is referred for lightheadedness and pauses noted on Ziopatch. His , Nelia, is here with him, and provides many answers to questions along with insights on his condition. There were 4 pauses noted range 3.2 sec-3.8 sec on recent Zio patch. These appear to be sinus pauses, occurring in middle of night, although 1 occurred at 0926am on 10/22/21. Possible atrial slowing associated with overnight pauses, although artifact is evident. No high grade av block. No afib. Denied symptoms during monitoring study. He met with Dr. Richards and carvedilol was stopped December 11. Symptoms: He gets lightheadedness and a little dizzy a couple times daily. He can be outside working all day for 6 hours, or half the day for 3 hours, working on his lawn by push mowing or weed-whacking up and down his hills and knolls, and also taking care of his neighbors lawn. He has not passed out. He will then come into the house and will fall immediately asleep in the chair. Nelia has noticed that he has had recent days of confusion, within the last month, 2-3 times per week,where he just seems to stare off at her. He noticed his pulse has been in the 40s before carvedilol was stopped, and then they have improved to 50s to even 65 bpm now in the couple weeks after stopping carvedilol. His blood pressure has also increased being off the carvedilol. Syncope: None, no pre-syncope recently. In the remote past when he was looking for a [place] tree out in the [place], he turned around quickly, got dizzy and fell, but he did not pass out and he has had no further episodes like that since. Lyme or other infectious diseases: pulled a couple ticks off that were not engorged, but attached (earlier this Spring) SA node or AV Dennis Agents: No beta-blockers, calcium-channel blockers or digoxin, no opioids/sedatives, no parasympathetic/muscarinic agonists (pilocarpine). Carvedilol held 12/11/21, previously in 2018, had 5 sec pause, Nebivolol held, sinus bradycardia improved. Obstructive sleep apnea: NOT using CPAP for 2 years, was referred back to sleep medicine, awaiting appointment. Has daytime fatigue, frequent napping, and loud snoring. He sleeps 4 to 5 hours if he is kiesha, otherwise he is up and down every hour. He is right-handed. Never had any IV ports, radiation, or trauma to his chest. Does not shoot long guns. Uses a chainsaw frequently. Does not use arc trimmer. Patient Active Problem List Diagnosis ??? Diabetes mellitus ??? Sinus node dysfunction Overview Note: 5 second sinus pause noted prior to stress test on 2018, while on nebivolol. ??? Obesity ??? 12/11/2013 S/P Right total knee arthroplasty ??? Preop testing - TKR ??? Osteoarthritis of right knee ??? CAD (coronary artery disease) ??? Myocardial infarction, old ??? Lipid disorder ??? Hypertension ??? RJ (obstructive sleep apnea) ??? History of total knee arthroplasty(LEFT) Overview Note: ??? DJD ??? DM, Type II ??? Morbid obesity ROS: Constitutional: + fatigue, - fever, - chills Respiratory: - shortness of breath, - cough, - apnea, - wheezing Cardiovascular: - chest pain, - palpitations, - unusual rates Gastrointestinal: - nausea, - vomiting, - abdominal pain, - diarrhea Neurological:+ lightheadedness, +dizziness, - syncope, - weakness Psychiatric: - anxious Family History: Brother had pacemaker, unsure of reason, had valve replacement, and bypass surgery. Social History: Tobacco: none Alcohol: none, quit 20 years ago Caffeine: 1 pot daily (12 cups) Water: 8 oz bottles (2-3) Herbals/supplements/recreational drugs: none Medications: Current Outpatient Medications Medication Sig Dispense Refill ??? spironolactone (Aldactone) 25 mg Tablet Take 1 tablet by mouth daily. 90 tablet 0 ??? acetaminophen 325 mg Capsule Take by mouth. ??? budesonide-formoteroL (SYMBICORT) 160-4.5 mcg/actuation HFA Aerosol Inhaler Inhale into the lungs. ??? triamcinolone (KENALOG) 0.1 % Cream Apply topically. ??? furosemide (LASIX) 40 mg Tablet Take 1 tablet by mouth 2 times daily. Please ask patient to callcardiologist's office for appt.before further refills-he is overdue 180 tablet 0 ??? finasteride (PROSCAR) 5 mg Tablet daily. 0 ??? aspirin 81 mg Tablet, Delayed Release (E.C.) Take 1 tablet by mouth daily. 30 tablet 3 ??? cholecalciferol, Vitamin D3, 50 mcg (2,000 unit) Capsule Take 2,000 Units by mouth daily. ??? amLODIPine (NORVASC) 10 mg Tablet Take 1 tablet by mouth daily. 90 tablet 3 ??? nitroGLYcerin (NITROSTAT) 0.3 mg Tablet, Sublingual Place 1 tablet under the tongue every 5 minutes as needed for Chest pain. 90 tablet 12 ??? atorvastatin (LIPITOR) 80 mg Tablet Take 1 tablet by mouth nightly. 0 ??? amoxicillin (AMOXIL) 500 mg Capsule Take 500 mg by mouth as needed. 0 ??? doxazosin (CARDURA) 4 mg Tablet Take 4 mg by mouth daily. 0 ??? losartan (COZAAR) 100 mg Tablet Take 100 mg by mouth daily. ??? metFORMIN (GLUCOPHAGE) 500 mg tablet Take 1,000 mg by mouth 2 times daily (with meals). ??? buPROPion SR (Wellbutrin SR) 150 mg tablet sustained-release 12 hr Take 150 mg by mouth 2 times daily. ??? albuterol (PROVENTIL HFA;VENTOLIN HFA) 90 mcg/Actuation inhaler Inhale 2 puffs into the lungs every 4 hours as needed. Use with spacer ??? penicillin v potassium (VEETID) 500 mg tablet 500mg, PO, BID Objective: Vitals: Vitals: 12/26/21 1305 BP: 152/75 Patient Position: Sitting Pulse: 60 SpO2: 98% Weight: 100 kg (220 lb 6.4 oz) Height: 174 cm (5' 8.5) Physical Exam: General- No acute distress, sitting comfortably in exam room chair HEENT- Head atraumatic, normocephalic Skin-warm, dry, intact Neck- No JVD noted Cardiovascular- S1/S2 regular rate and rhythm. No murmur, rub or gallop Lungs- Clear to auscultation bilaterally Extremities- Pulses equal bilaterally. No edema noted Neuro- A&Ox3 Diagnostics: ECG in office today shows sinus bradycardia 52 bpm with slight sinus pause 1620 ms. Atrial rate starts to pick after the sinus pause. CT 160 ms, QRS 108 ms with incomplete right bundle branch block, QT440 ms, QTC 409 ms ECG 6/2/22 Sinus bradycardia with PACs in bigeminal pattern, [address] 156 ms, QRS 104 ms, QT 480ms, QTc 366 ms ECG 11/22/2020: Sinus bradycardia with sinus arrhythmia rate [address] 152 ms, QRS 98 ms, QT 462ms, QTc 399ms. ZIO 10/15/21 Conclusions: 1. Predominant rhythm is sinus 2. 1.1% isolated supraventricular ectopy 3. 3 SCT runs with longest 12.4 seconds 4. No atrial fibrillation 5. No clinically significant AV block 6. 4 pauses: Longest 3.8 seconds on 10/22 at 09:26 am Second longest 3.6 seconds on 10/20 at 04:10 am Third longest 3.2 seconds on 10/22 at 12:47 am ?? Echocardiogram: no recent Nuclear stress test: 12/17/2017 IMPRESSION 1. No ischemia or scar. Left ventricular function is normal. 2. Coronary and aortic calcification. Labs: No recent labs Assessment and Plan: 76 y.o. with medical history significant for resistant HTN, HLD, CAD/NSTEMI medical management, obesity, DM2, RJ (not on CPAP currently) who is referred for lightheadedness and pauses noted on Ziopatch. He has untreated sleep apnea, off CPAP for 2 years, with daytime fatigue, napping, loud snoring (awaiting sleep medicine appointment), likely causing sinus pauses with atrial slowing, all of which wereasymptomatic. No evidence of heart block. Recommend sleep apnea treatment follow through and re-evaluate after a month of treatment. Bradycardia has improved off carvedilol. His lightheadedness and dizziness could also be related to dehydration with suboptimal water intake.Recommended increased hydration. Will obtain echocardiogram to evaluate updated LVEF. I discussed this patient's case with Dr. Avinash Melgar. Sedation evaluation: Mallampati class: IV: none of the structures can be seen ASA: 3: Patient with severe systemic disease Plan: 1. Echocardiogram 2. Recommend sleep apnea evaluation, awaiting sleep medicine appointment. Diane Garcia APRN 01/01/2022 Pager: [phone] documented in this encounter Plan of Treatment Upcoming Encounters Date Type Specialty Care Team Description 03/12/2022 Appointment Cardiology Diane Garcia APRN [facility] CARDIOLOGY [place] [address] (Wo rk) Scheduled Orders Name Type Priority Associated Order Schedule Diagnoses Echocardiogram Echocardiography Routine Lightheadedness Expected: Transthoracic Dizziness 12/27/2021 (Approximate), Expires: 06/28/2022 documented as of this encounter Procedures Procedure Name Priority Date/Time Associated Diagnosis Comme nts EKG 12-LEAD Routine 12/26/2021 1:14 PM Lightheadedness Result s for this EDT procedure are i n the results section . documented in this encounter Results EKG 12 Lead (12/26/2021 1:14 PM EDT) Component Value Ref Range Test Analysis Performed Pathologis t Method Time At Signature Ventricular rate 52 BPM MUSE SYSTEM Atrial Rate 52 BPM MUSE SYSTEM P-R Interval 160 ms MUSE SYSTEM QRS Duration 108 ms MUSE SYSTEM Q-T Interval 440 ms MUSE SYSTEM QTC Calculated 409 ms MUSE SYSTEM (Bezet) Calculated P [place] 80 degrees MUSE SYSTEM Calculated R [place] -34 degrees MUSE SYSTEM Calculated T [place] 48 degrees MUSE SYSTEM INTERPRETATION Sinus bradycardia with marked sinus arrhythmia MUSE SYSTEM Left axis deviation Incomplete right bundle branch block Abnormal ECG When compared with ECG of 11-DEC-2021 13:15, Premature atrial complexes are no longer Present Vent. rate has increased BY ??17 BPM Confirmed by MD RAFY, RENATO ([id number]) on 12/26/2021 1:35:58 PM Specimen Anatomical Collection Method Collection Time Receive d Time (Source) Location / / Volume Laterality 12/26/2021 1:14 PM 2 1:35 EDT PM EDT Diane Garcia APRN ECG ORDERABLES Performing Organization Address City/State/ZIP Code Phon e Number MUSE SYSTEM documented in this encounter Visit Diagnoses Diagnosis Lightheadedness Dizziness and giddiness Sinus node dysfunction Sinoatrial node dysfunction Dizziness Dizziness and giddiness documented in this encounter Care Teams Social Science Professor Relationship Specialty Start Date End Date Jessie Bose APRN PCP - General Geriatric Medicine 05/14/20 [address] [place] [address] documented as of this encounter
--- OUTSIDE RECORDS SUMMARY | 2022-01-28 01:18 | XMS_ITS | Encounter Summary ---
:1945 Author Organization [facility] [place] [address] Care Team Providers Name Role Phone Jessie Bose APRN Primary Care Provider Encounter Details Date Type Department Care Team Description 11/20/2021 Telephone Cardiology at [facility] Elly Sarabia RN [facility] [place] [address] Social History Tobacco Use Types Packs/Day [...] encounter Miscellaneous Notes Telephone Encounter - Elly Sarabia RN - 11/20/2021 3:58 PM EDT Outgoing letter sent to patient/spouse to call team nurse about test results. Elly Holbrook RNjordan man Cardiovascular Clinic General Team-Tony documented in this encounter Plan of Treatment Upcoming Encounters Date Type Specialty Care Team Description 03/12/2022 Appointment Cardiology Diane Garcia APRN [facility] [address] [place], [place] [address] (Wo rk) documented as of this encounter Visit Diagnoses Not on filedocumented in this encounter Care Teams Jukebox Coin Collector Relationship Specialty Start Date End Date Jessie Bose APRN PCP - General Geriatric Medicine 05/14/[address] [place] [address] documented as of this encounter
--- OUTSIDE RECORDS SUMMARY | 2022-01-28 01:18 | XMS_ITS | Encounter Summary ---
:1945 Author Organization [place] [address] Care Team Providers Name Role Phone Jessie Bose GAS LINE INSTALLER SUPERVISOR Primary Care Provider Encounter Details Date Type Department Care Team Description 11/26/2021 Telephone Cardiology at [facility] [place] Elly Sar[place], [place] [address] Social History Tobacco Use Types Packs/Day [...] Telephone Encounter - Elly Sarabia RN - 11/26/2021 1:47 PM EDT Received call back from Nelia, Pt's spouse after multiple attempts to reach him. Message was relayed per Dr. Richards on Pt's Zio patch report. Concern is for > 3sec. pauses seen so recommendation was F/U with EP for possible pacemaker. Nelia was transferred to EP scheduling who reports team is booking out into February*. Elly Holbrook RNstore lead Cardiovascular Clinic General Team-[place] documented in this encounter Plan of Treatment Upcoming Encounters Date Type Specialty Care Team Description 03/12/2022 Appointment Cardiology Diane Garcia APRN [facility] CARDIOLOGY [place], [place] [address] (Wo rk) documented as of this encounter Visit Diagnoses Not on filedocumented in this encounter Care Teams Notch Grinder Relationship Specialty Start Date End Date Jessie Bose APRN PCP - General Geriatric Medicine 05/14/[address] [place] [address] documented as of this encounter
--- OUTSIDE RECORDS SUMMARY | 2022-01-28 01:18 | XMS_ITS | Encounter Summary ---
:1945 Author Organization [facility] Address [address] [place] [address] Care Team Providers Name Role Phone Juice Jessie MELISSA Primary Care Provider Encounter Details Date Type Department Care Team Description 12/11/2021 Office Visit Cardiology at [facility] iRan Richards ASCVD (arteriosclerotic card iovascular disease); [facility] MD Ilan Essential hypertension; Drive [facility] Sinus node dysfunction [place] [address] Cardiology [phone] [place], [place] [address] Social History Tobacco Use Types [...] Sign Reading Time Taken Comments Blood Pressure 122/70 12/11/2021 1:10 PM EDT Pulse 47 12/11/2021 1:10 PM EDT Temperature - - Respiratory Rate - - Oxygen Saturation 99% 12/11/2021 1:10 PM EDT Inhaled Oxygen Concentration - - Weight 98 kg (216 lb) 12/11/2021 1:10 PM EDT Height 172.7 cm (5' 8) 12/11/2021 1:10 PM EDT Body Mass Index 32.84 12/11/2021 1:10 PM EDT documented in this encounter Patient Instructions Patient InstructionsDaRian dave MD - 12/11/2021 1:37 PM EDT Stop carvedilol documented in this encounter Progress Notes Rian Richards MD - 12/11/2021 1:00 PM EDT Images from the original note were not included. [facility] [place] [address] [address] Cardiology Clinic Note CC: CAD Patient Name: Corona Romo HPI: Corona Romo is a 76 y.o. 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 Last seen in November 2020. BP has not been well controlled at home; BPs: 140-160/50-70s. HRs have been 40-50s. States he woke up yesterday and felt dizzy. States that he feels this way a lot. Has not lost consciousness or had any close calls. He is not sure whether the LH sensation is positional or orthostatic. Sxs are generally brief and pass on their own; does not have to sit down. 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 Predominant rhythm is sinus 2. 1.1% isolated supraventricular ectopy 3. 3 SCT runs with longest 12.4 seconds 4. No atrial fibrillation 5. No clinically significant AV block 6. 4 pauses: Longest 3.8 seconds on 10/22 at 09:26 am Second longest 3.6 seconds on 10/20 at 04:10 am Third longest 3.2 seconds on 10/22 at 12:47 am Nuclear Stress Test (2018) No fixed or [...] in 1998 (last cath at that time). He is currently on 5 antihypertensive medications including carvedilol, amlodipine, losartan, spironolactone, and furosemide; also on doxazosin for BPH. As mentioned previously, he has episodic lightheadedness, which is a relatively new symptom for him.He had a Zio in October which showed an avg HR of 54 bpm and multiple pauses, the longest being 3.8 seconds. He sees EP in a couple weeks to discuss a PPM. In the meantime, will hold his carvedilol even though his BP is not optimally controlled based on his home values. He does have his home BP cuff with him today, which I compared to my manual measurement. According to his cuff his systolic blood pressure was 157 mmHg but on the manual reading in the same arm, the systolic reading was 122 mmHg. Thus,I do not think that his home cuff is reliable. The blood pressure obtained in the office today wouldsuggest that his blood pressure is adequately managed currently. PLAN: # Hypertension, resistant - continue amlodipine 10 mg daily, losartan 100 mg daily, lasix 40 mg BID, and spironolactone 25 mg daily - hold carvedilol 6.25 mg BID due to bradycardia and pauses - Not using CPAP; needs to treat RJ; referral back to sleep med # Sinus node dysfunction, 3.5 second pauses # Episodic lightheadedness - sinus bradycardia improved with holding of nebivolol (bblocker) - HR in 40s today an on BP cuff at home; now c/o episodic lightheadedness but no syncope - hold BB for now - Avg HR on Zio was 54 bpm; multiple 3.5 second pauses - has an appt with EP in 2 weeks # ASCVD, chronic, stable - No chest pain - 2017 stress test w/out ischemia or scar ?? [...] of Cardiovascular Medicine [facility] Net Applications Developerclinical trial coordinator [facility] documented in this encounter Plan of Treatment Upcoming Encounters Date Type Specialty Care Team Description 03/12/2022 Appointment Cardiology Diane Garcia, MELISSA [facility] CARDIOLOGY [place], [place] [address] (Wo rk) documented as of this encounter Procedures Procedure Name Priority Date/Time Associated Diagnosis Comme nts EKG 12-LEAD Routine 12/11/2021 1:15 PM ASCVD (arterioscleroti c Results for this EDT cardiovascular disease) proc edure are in the results section. documented in this encounter Results EKG 12 Lead (12/11/2021 1:15 PM EDT) Component Value Ref Range Test Analysis Performed Pathologis t Method Time At Signature Ventricular rate 35 BPM MUSE SYSTEM Atrial Rate 35 BPM MUSE SYSTEM P-R Interval 156 ms MUSE SYSTEM QRS Duration 104 ms MUSE SYSTEM Q-T Interval 480 ms MUSE SYSTEM QTC Calculated 366 ms MUSE SYSTEM (Bezet) Calculated P [place] 86 degrees MUSE SYSTEM Calculated R [place] -30 degrees MUSE SYSTEM Calculated T [place] 39 degrees MUSE SYSTEM INTERPRETATION Marked sinus bradycardia wit h Premature atrial complexes in a pattern of bigeminy MUSE SYSTEM Left axis deviation Incomplete right bundle branch block Abnormal ECG When compared with ECG of 22-NOV-2020 09:59, Premature atrial complexes are now Present Incomplete right bundle branch block is now Present Confirmed by MD Yoselin, Enoc ([id number]) on 12/12/2021 7:04:12 AM Specimen Anatomical Collection Method Collection Time Receive d Time (Source) Location / / Volume Laterality 12/11/2021 1:15 PM 7:04 EDT AM EDT Rian Richards MD ECG ORDERABLES Performing Organization Address City/State/ZIP Code Phon e Number MUSE SYSTEM documented in this encounter Visit Diagnoses Diagnosis ASCVD (arteriosclerotic cardiovascular d isease) Unspecified cardiovascular disease Essential hypertension Unspecified essential hypertension Sinus node dysfunction Sinoatrial node dysfunction documented in this encounter Care Teams Senior Mobile Developer Relationship Specialty Start Date End Date Jessie Bose APRN PCP - General Geriatric Medicine 05/14/[address] [place] [address] documented as of this encounter
--- OUTSIDE RECORDS SUMMARY | 2022-01-28 01:18 | XMS_ITS | Encounter Summary ---
:1945 Author Organization [facility] [place] [address] Care Team Providers Name Role Phone JuiceJessie MELISSA Primary Care Provider Encounter Details Date Type Department Care Team Description 12/16/2021 Orders Only Cardiology at [facility] Diane Garcia Lightheadedness (Primary Dx) ; [facility] MELISSA ASCVD (arteriosclerotic cardiovascular d isease) [facility] [id number] CARDIOLOGY [phone] [place], [place] [address] Social History Tobacco Use Types [...] Description 03/12/2022 Appointment Cardiology Diane Garcia APRN [facility] [address] [place], [place] [address] (Wo rk) Scheduled Orders Name Type Priority Associated Diagnoses Order S chedule EKG 12 Lead ECG Routine Lightheadedness As Needed fo r 6 Occurrences starting 12/18/2021 unti l 12/16/2022, 1 completed documented as of this encounter Results EKG 12 Lead (12/26/2021 1:14 PM EDT) Component Value Ref Range Test Analysis Performed Pathologis t Method Time At Signature Ventricular rate 52 BPM MUSE SYSTEM Atrial Rate 52 BPM MUSE SYSTEM P-R Interval 160 ms MUSE SYSTEM QRS Duration 108 ms MUSE SYSTEM Q-T Interval 440 ms MUSE SYSTEM QTC Calculated 409 ms MUSE SYSTEM (Bezet) Calculated P [place] 80 degrees MUSE SYSTEM Calculated R [place] -34 degrees MUSE SYSTEM Calculated T [place] 48 degrees MUSE SYSTEM INTERPRETATION Sinus bradycardia [...] in this encounter Visit Diagnoses Diagnosis Lightheadedness - Primary Dizziness and giddiness ASCVD (arteriosclerotic cardiovascular d isease) Unspecified cardiovascular disease documented in this encounter Care Teams Cloth Cutting Machine Operator Relationship Specialty Start Date End Date Jessie Bose APRN PCP - General Geriatric Medicine 05/14/[address] [place] [address] documented as of this encounter
--- OUTSIDE RECORDS SUMMARY | 2022-01-28 01:18 | XMS_ITS | Encounter Summary ---
:1945 [place] [address] Care Team Providers Name Role Phone Alexsandra Boseica MELISSA Primary Care Provider Reason for Visit Reason Onset Date Comments Medication Refill 09/19/2021 Encounter Details Date Type Department Care Team Description 09/19/2021 Refill Cardiology at [facility] Rian Richards MD Medication Refill [facility] [place] [address] Cardiology [phone] [place], [place] [address] (Wo rk) Social History Tobacco [...] Description 03/12/2022 Appointment Cardiology Diane Garcia APRN [facility] ER [address] [place], [place] [address] (Wo rk) documented as of this encounter Visit Diagnoses Diagnosis Essential hypertension - Primary Unspecified essential hypertension documented in this encounter Care Teams Bread Dough Mixer Relationship Specialty Start Date End Date Jessie Bose APRN PCP - General Geriatric Medicine 05/14/[address] [place] [address] documented as of this encounter
--- OUTSIDE RECORDS SUMMARY | 2022-01-28 01:18 | XMS_ITS | Clinical Summary ---
:1945 Author Organization [facility] [place] [address] Care Team Providers Name Role Phone Juice Jessie MELISSA Primary Care Provider Allergies Active Allergy Reactions Severity Noted Date Comments Nebivolol Other (See Comments) 12/02/2017 Sinus n ode dysfunction- sinus madina and a 5 second pause Unclassified Drug Nausea Only, Other (See 03/15/2018 All Narcotics Comments) Medications Medication Sig Dispensed Refills Start Date End Date Status penicillin v potassium 500mg, PO, BID 0 08/06/2010 Active (VEETID) 500 mg tablet albuterol (PROVENTIL Inhale 2 puffs 0 Active HFA;VENTOLIN HFA) 90 into the lungs mcg/Actuation inhaler every 4 hours as needed. Use with spacer losartan (COZAAR) 100 Take 100 mg by 0 Active mg Tablet mouth daily. metFORMIN (GLUCOPHAGE) Take 1,000 mg by 0 Active 500 mg tablet mouth 2 times daily (with meals). buPROPion SR Take 150 mg by 0 Ac tive (Wellbutrin SR) 150 mg mouth 2 times tablet daily. sustained-release 12 hr amoxicillin (AMOXIL) Take 500 mg by 0 12/13/2014 Active 500 mg Capsule mouth as needed. doxazosin (CARDURA) 4 Take 4 mg by 0 01/26/2015 Active mg Tablet mouth daily. atorvastatin (LIPITOR) Take 1 tablet by 0 08/28/2015 Active 80 mg Tablet mouth nightly. nitroGLYcerin Place 1 tablet 90 tablet 12 11/11/2017 Active (NITROSTAT) 0.3 mg under the tongue Tablet, every 5 minutes SublingualIndications: as needed for Coronary artery disease Chest pain. with exertional angina cholecalciferol, Take 2,000 Units 0 Active Vitamin D3, 50 mcg by mouth daily. (2,000 unit) Capsule amLODIPine (NORVASC) 10 Take 1 tablet by 90 tablet 3 8 Active mg TabletIndications: mouth daily. Essential hypertension aspirin 81 mg Tablet, Take 1 tablet by 30 tablet 3 03/15/2018 Active Delayed Release mouth daily. (E.C.)Indications: Coronary artery disease involving [place] coronary artery of [place] heart without angina pectoris finasteride (PROSCAR) 5 daily. 0 08/15/2018 Active mg Tablet furosemide (LASIX) 40 Take 1 tablet by 180 tablet 0 07/04/2019 Active mg TabletIndications: mouth 2 times Essential hypertension daily. Please ask patient to call packing room worker's office for appt.before further refills-he is overdue acetaminophen 325 mg Take by mouth. 0 05/10/2019 Active Capsule budesonide-formoteroL Inhale into the 0 01/09/2013 Active (SYMBICORT) 160-4.5 lungs. mcg/actuation HFA Aerosol Inhaler triamcinolone (KENALOG) Apply topically. 0 9 Active 0.1 % Cream spironolactone Take 1 tablet by 90 tablet 0 09/19/2021 Active (Aldactone) 25 mg mouth daily. TabletIndications: Essential hypertension Active Problems Problem Noted Date Diabetes mellitus 12/27/2017 Last Assessment & Plan: Formatting of th is note might be different from the original. Monitored at home and with PCP. Continue s with metformin. Sinus node dysfunction 12/02/2017 Overview: 5 second sinus pause noted prior to stre ss test on 2017, while on nebivolol. Last Assessment & Plan: Sinus bradycardia improved with holding of bblocker. No presyncope / syncope. Continue to monitor and remain off bblocker therapy. Obesity 11/11/2017 Last Assessment & Plan: Formatting of th is note might be different from the original. Discussed diet with a goal of weight los s. 12/11/2013 S/P Right total knee arthroplasty 12/11/2013 Preop testing - TKR 09/09/2012 Osteoarthritis of right knee 08/04/2012 CAD (coronary artery disease) 06/01/2012 Last Assessment & Plan: Formatting of th is note might be different from the original. No chest pain. Recent stress test w/out ischemia or scar. Continue with medical therapies. He can switch from 325 mg to to low dose aspirin. Myocardial infarction, old 06/01/2012 Lipid disorder 06/01/2012 Last Assessment & Plan: Formatting of th is note might be different from the original. Continue atorvastatin 80mg. Hypertension 06/01/2012 Last Assessment & Plan: Formatting of th is note might be different from the original. BP improved on medical therapies. I stre ssed again a low salt diet and frequent BP monitoring. He/ understand. He is due to see his PCP shortly. RJ (obstructive sleep apnea) 06/01/2012 Last Assessment & Plan: Formatting of th is note might be different from the original. He has a diagnosis of RJ and has a slee p mask (but does not use it). I suggested that he use it and f/u with sleep doctors. History of total knee arthroplasty(LEFT) 05/14/2011 DJD 01/31/2009 DM, Type II 01/31/2009 Morbid obesity 01/31/2009 Resolved Problems Problem Noted Date Resolved Date CIS - Obstructive sleep apnea, on CPAP daily 01/31/2009 06/01/2012 Encounters Date Type Specialty Care Team Description 12/26/2021 Office Visit Cardiology Diane Garcia APRN Lighth eadedness; Sinus node dysf unction; Dizziness 12/16/2021 Orders Only Cardiology Diane Garcia APRN Lighth eadedness (Primary Dx); ASCVD (arterios clerotic cardiovascular disease) 12/11/2021 Office Visit Cardiology Rian Richards, ASCVD ( arteriosclerotic cardiovascular disease); Essential hyper tension; Sinus node dysf unction 12/02/2021 Orders Only Cardiology Rian Richards, ASCVD ( arteriosclerotic cardiovascular disease) (Primary Dx); Lightheadedness ; Essential hyper tension; Sinus bradycard ia; Sinus node dysf unction; Coronary artery disease involving [place] coronary artery of [place] heart without angina pectoris; RJ (obstructiv e sleep apnea) 11/26/2021 Telephone Cardiology Elly Sarabia RN 11/20/2021 Telephone Cardiology Elly Sarabia RN 11/20/2021 Telephone Cardiology Elly Sarabia RN 11/17/2021 Orders Only Cardiology Rian Richards, Sinus n jeramy mi MD (Primary Dx) from Last 3 Months Immunizations Name Administration Dates Next Due Pneumococcal Polyvalent 23 09/12/2005 Family History Medical History Relation Comments Myocardial Infarction Brother Myocardial Infarction Mother Relation Status Comments Brother Father Mother Social History Tobacco Use Types Packs/Day Years [...] Assigned at Date Recorded Not on file Last Filed Vital Signs Vital Sign Reading Time Taken Comments Blood Pressure 152/75 12/26/2021 1:05 PM EDT Pulse 60 12/26/2021 1:05 PM EDT Temperature 36.6 ??C (97.8 ??F) 12/02/2017 11:12 AM EDT Respiratory Rate 19 12/14/2013 9:34 AM EDT Oxygen Saturation 98% 12/26/2021 1:05 PM EDT Inhaled Oxygen Concentration - - Weight 100 kg (220 lb 6.4 oz) 12/26/2021 1:05 PM EDT Height 174 cm (5' 8.5) 12/26/2021 1:05 PM EDT Reported Body Mass Index 33.02 12/26/2021 1:05 PM EDT Plan of Treatment Upcoming Encounters Date Type Specialty Care Team Description 03/12/2022 Appointment Cardiology Diane Garcia, SOFTWARE BUILD ENGINEER [facility] CARDIOLOG[facility] [place], [place] [address] (Wo rk) Health Maintenance Due Date Last Done Comments Covid-19 Vaccine (#1) 02/20/1950 DM Opthalmology Exam 02/20/1954 DM Urine Microalbumin yearly 02/20/1954 Hepatitis C Screening 02/20/1962 Tdap adult 02/20/1963 Tetanus vaccine 02/20/1963 Zoster vaccine (1 of 2) 02/20/1994 Pneumoccocal Vaccine: 65+ (2 - 09/12/2006 09/12/2005 PCV) DM Hemoglobin A1c 03/14/2014 12/12/2013 DM Creatinine yearly 12/14/2014 12/14/2013, 12/13/2013, 12/12/2013, Additional history exists Influenza (Flu) vaccine (1 of 1 - 03/12/2022 Influenza standard series) Medical Devices Implanted Type Area Respiratory Care Practitioner Device Shelf Model / Identifier Expiration Serial / Date Lot Inser,Sgm,Stab,Crslnk,4x10mm ([id number]) (Autoreq) - [id number] IMP LANTS Right: DO NOT USE Depuy 06/12/2018 [id number] / Implanted: Qty: 1 on 12/11/2013 by Chandra Del Rosario MD at [facility] Knee Gymnastics Instructor - / [id number] Procedures Procedure Name Priority Date/Time Associated Diagnosis Comme nts EKG 12-LEAD Routine 12/26/2021 1:14 PM Lightheadedness Result s for this EDT procedure are i n the results section. EKG 12-LEAD Routine 12/11/2021 1:15 PM ASCVD (arterioscleroti c Results for this EDT cardiovascular disease) proc edure are in the results section. from Last 3 Months Results EKG 12 Lead (12/26/2021 1:14 PM EDT)Only the most recent of2 resultswithin the time period is included. Component Value Ref Range Test Analysis Performed Pathologis t Method Time At Signature Ventricular rate 52 BPM MUSE SYSTEM Atrial Rate 52 BPM MUSE SYSTEM P-R Interval 160 ms MUSE SYSTEM QRS Duration 108 ms MUSE SYSTEM Q-T Interval 440 ms MUSE SYSTEM QTC Calculated 409 ms MUSE SYSTEM (Bezet) Calculated P [place] 80 degrees MUSE SYSTEM Calculated R [place] -34 degrees MUSE SYSTEM Calculated T [place] 48 degrees MUSE SYSTEM INTERPRETATION Sinus bradycardia [...] / / Volume Laterality 12/26/2021 1:14 PM 1:35 EDT PM EDT Diane Garcia APRN ECG ORDERABLES Performing Organization Address City/State/ZIP Code Phon e Number MUSE SYSTEM from Last 3 Months Insurance Payer Benefit Plan / Subscriber ID Effective Dates Phone Addre ss Type Group [employer] [id number] 2019-Elle [phone] [address] [address] MEDICARE MEDICARE t [address] [place] [address] Advance Directives Documents on File Type Date Recorded Patient Superintendent System Operation Explanati on Advance Directives and Living 12/11/2013 3:05 PM Will Advance Directives and Living 09/10/2010 8:20 AM Will Latest Code Status on File Code Status Date Activated Date Inactivated Comments Full Code 12/11/2013 1:02 PM 12/14/2013 4:26 PM Does patient have decision making capacity? Yes, order is based on Patient wishes. Full Code 12/11/2013 1:02 PM 12/11/2013 1:02 PM Does patient have decision making capacity? Yes, order is based on Patient wishes. Care Teams Manager Marketing Relationship Specialty Start Date End Date Jessie Bose APRN PCP - General Geriatric Medicine 05/14/[address] [facility] [address] [place] [address]
--- OUTSIDE RECORDS SUMMARY | 2022-01-28 01:18 | XMS_ITS | Encounter Summary ---
:1945 Author Organization [facility] [place] [address] Care Team Providers Name Role Phone Jessie Bose APRN Primary Care Provider Encounter Details Date Type Department Care Team Description 12/11/2020 Orders Only Cardiology at [facility] Rian Richards Essential hypertension [facility] MD Ilan (Primary Dx) [place] [address] Cardiology [phone] [place], [place] [address] Social History Tobacco Use Types [...] Description 03/12/2022 Appointment Cardiology Diane Garcia APRN [facility] [address] [place], [place] [address] (Wo rk) documented as of this encounter Visit Diagnoses Diagnosis Essential hypertension - Primary Unspecified essential hypertension documented in this encounter Care Teams Senior Clinical Data Manager Relationship Specialty Start Date End Date Jessie Bose APRN PCP - General Geriatric Medicine 05/14/[address] [place] [address] documented as of this encounter
--- OUTSIDE RECORDS SUMMARY | 2022-01-28 01:18 | XMS_ITS | Encounter Summary ---
:1945 Author Organization [facility] [place] [address] Care Team Providers Name Role Phone Jessie Bose INTELLIGENCE CHIEF Primary Care Provider Encounter Details Date Type Department Care Team Description 11/20/2021 Telephone Cardiology at [facility] Elly Sarabia, [place] [address] Social History Tobacco Use Types Packs/Day [...] Telephone Encounter - Elly Sarabia, RN - 11/20/2021 9:23 AM EDT Several calls placed to patient/Nelia x 3 days regarding message from Dr. Richards on Zio patch results. Phone numbers for patient and spouse Nelia go straight to voicemail and messages cannot be left. Also emergency contact has not called back either. Another number was found on a hand written letter scanned in (difficult to find)-[phone] and a brief message was left though it did not identify production staff worker. Awaiting call back from new number or will have to consider sending out a letter with detailed information. Elly Holbrook RNcareer education teacher Cardiovascular Clinic General Team-[place] documented in this encounter Plan of Treatment Upcoming Encounters Date Type Specialty Care Team Description 03/12/2022 Appointment Cardiology Diane Garcia APRN [facility] C[place]IOLOGY [place], [place] [address] (Wo rk) documented as of this encounter Visit Diagnoses Not on filedocumented in this encounter Care Teams Fitness Floor Attendant Relationship Specialty Start Date End Date Jessie Bose APRN PCP - General Geriatric Medicine 05/14/20 [address] [facility] [place] [address] documented as of this encounter
--- OUTSIDE RECORDS SUMMARY | 2022-01-28 01:18 | XMS_ITS | Encounter Summary ---
:1945 Author Organization [facility] [place] [address] Care Team Providers Name Role Phone Jessie Bose MELISSA Primary Care Provider Encounter Details Date Type Department Care Team Description 12/11/2020 Telephone Cardiology at [facility] Elly Sarabia, RN [facility] [place] [address] Social History Tobacco Use Types Packs/Day [...] Encounter - Elly Sarabia, RN - 12/11/2020 11:30 AM EDT Received call from patient ( in the background) and his life partner Nelia. She is reporting that since his last OV in November, Corona's BP is still running high. He checks usuallyonce in the morning admittedly before his medications ( occasionally skips a day) and then he will recheck later on in the day and log.Nelia confirms patient is taking Lasix again after he had previouslystopped it. It was recommended he restart it at the last OV. Recent readings as follows with HR ranging mostly in the 60's: Today- 202/104 early this AM then on recheck during phone call 182/92 /- 170/99 12/04- 161/78 /- 181/94 /- 173/88 /- 165/82 5/- 156/85, 137/68 pm 11/27- 168/87 11/26- 177/92, 166/89 pm 11/25- 185/86, 181/86 pm Nelia states patient does try to drink plenty of water and he also drinks mil. He gets dizzy at times but that comes and goes.Patient denies any CP,SOB, COTTON, lightheadedness, N/V, visual changes. Nelia states patient doesn't like his eye doctor so he needs to find a new one. He does try to be seen yearlyfor an exam. Overall, except for some arthritis like generalized discomfort patient is feeling well each morning.Patient labs were reportedly done at [facility] last month and they were told the results were normal. Nelia was asked to have patient check his BP one hour after his morning medications instead of before.All other medications being taken as reviewed. When to utilize ED was discussed. Nelia will have patient recheck his BP once again in an hour and call team nurse. Elly Holbrook RNfinal operations technician [facility] documented in this encounter Plan of Treatment Upcoming Encounters Date Type Specialty Care Team Description 03/12/2022 Appointment Cardiology Diane Garcia APRN [facility] CARDIOLOGY [place], [place] [address] (Wo rk) documented as of this encounter Visit Diagnoses Not on filedocumented in this encounter Care Teams M48/M60 Tank Driver Relationship Specialty Start Date End Date Jessie Bose APRN PCP - General Geriatric Medicine 05/14/20 [address] [address] documented as of this encounter
--- OUTSIDE RECORDS SUMMARY | 2022-01-28 01:19 | XMS_ITS | Encounter Summary ---
:1945 Author Organization [facility] [place] [address] Care Team Providers Name Role Phone Satnam Barnes MD Primary Care Provider Encounter Details Date Type Department Care Team Description 11/16/2017 Hospital Encounter Non-Invasive Alton Acevedo Coronar y artery Cardiology Lab Concepcion Lira MD disease [place] [address] [address] [place], [place] [phone] (Work) [phone] Social History Tobacco Use Types Packs/Day Years [...] Sig Dispensed Refills Start Date End Date budesonide-formoteroL Inhale into the 0 3 (SYMBICORT) 160-4.5 lungs. mcg/actuation HFA Aerosol Inhaler nitroGLYcerin (NITROSTAT) Place 1 tablet 90 tablet 12 2017 0.3 mg Tablet, under the tongue SublingualIndications: every 5 minutes as Coronary artery disease needed for Chest with exertional angina pain. atorvastatin (LIPITOR) 80 Take 1 tablet by 0 08/12 mg Tablet mouth nightly. amoxicillin (AMOXIL) 500 Take 500 mg by 0 12/13/ 015 mg Capsule mouth as needed. doxazosin [...] hr daily. albuterol (PROVENTIL Inhale 2 puffs into 0 HFA;VENTOLIN HFA) 90 the lungs every 4 mcg/Actuation inhaler hours as needed. Use with spacer penicillin v potassium 500mg, PO, BID 0 1 (VEETID) 500 mg tablet amLODIPine (NORVASC) 10 mg Take 1 tablet by 0 12/02/2017 Tablet mouth daily. doxazosin (CARDURA) 2 mg Take 2 mg by mouth 0 12/02/2017 Tablet daily. furosemide (LASIX) 20 mg Take 20 mg by mouth 0 12/27/2017 Tablet 2 times daily. aspirin 325 mg tablet Take 325 mg by 0 03/15/2018 mouth daily. potassium chloride Take 20 mEq by 0 (K-DUR/KLOR-CON) 20 mEq mouth 2 times extended release tablet daily. documented as of this encounter Plan of Treatment Upcoming Encounters Date Type Specialty Care Team Description 03/12/2022 Appointment Cardiology Diane Garcia, AIR TRAFFIC CONTROL OPERATOR [facility] ER [address] [place], [place] [address] (Wo rk) Pending Results Name Type Priority Associated Date/Time Diagnoses Nuclear Pharmacologic Cardiac Services Routine Coronary artery 11/16/2017 10:19 Stress Cardiology disease with AM EDT exertional angina Scheduled Orders Name Type Priority Associated Order Schedule Diagnoses Nuclear Pharmacologic Cardiac Services Routine Coronary Artery 1 Occurrences Stress Cardiology Disease With starting 0 11/16/2017 Exertional Angina until 02/2018 documented as of this encounter Visit Diagnoses Diagnosis Coronary artery disease with exertional angina documented in this encounter Care Teams Medicine Aide Relationship Specialty Start Date End Date Satnam Barnes MD PCP - General 02/07/15 07/11/19 documented as of this encounter
--- OUTSIDE RECORDS SUMMARY | 2022-01-28 01:19 | XMS_ITS | Encounter Summary ---
:1945 Author Organization [facility] [place] [address] Care Team Providers Name Role Phone Satnam Barnes MD Primary Care Provider Reason for Visit Diagnostic Test (Routine) - Closed Specialty Diagnoses / Procedures Referred By Contact Refer red To Contact Radiology Diagnoses ASCVD (arteriosclerotic cardiovascular disease) Alfreda Benitez MD [facility] Rad Nuclear Med Procedures NM Pharmacologic Stress Myocardial Perfusion [facility] [place] [address] [place] [address] Fax: Referral ID Status Reason Start Date Expiration Date Visits V isits Requested Authorized [id number] Closed Specialty 12/02/2017 12/02/2018 1 1 Service Requested Encounter Details Date Type Department Care Team Description 12/17/2017 [facility] [place], [place] [id number] [place] [address] [phone] Social History Tobacco Use Types Packs/Day Years [...] 1 (VEETID) 500 mg tablet amLODIPine (NORVASC) 5 mg Take 0.5 tablets by 30 tablet 3 0 12/02/2017 12/27/2017 TabletIndications: mouth daily. Essential hypertension furosemide (LASIX) 20 mg Take 20 mg [...] Team Description 03/12/2022 Appointment Cardiology Diane Garcia, PRODUCTION MECHANIC TIN CANS [facility] CARDIOLOGY [place] [address] (Wo rk) documented as of this encounter Procedures Procedure Name Priority Date/Time Associated Diagnosis Comme nts NM PHARMACOLOGIC Routine 12/17/2017 11:42 ASCVD Results for this STRESS AND REST AM EDT (arteriosclerotic procedu re are in MYOCARDIAL PERFUSION cardiovascular the r esults disease) section. documented in this encounter Results NM Pharmacologic Stress CT Component (12/17/2017 12:27 PM EDT) Anatomical Region Laterality Modality Nuclear Medicine Specimen (Source) Anatomical Location Collection Method / Collectio n Time Received Time / Laterality Volume Impressions 12/17/2017 5:18 PM EDT 1. ??No ischemia or scar. ??Left ventricular function is normal. 2. ??Coronary and aortic calcification. Preliminary report signed by: COY TOSCANO at 12/17/2017 3:27 PM I have personally reviewed the image(s) and the residents interpretation and agree with the findings, Tae Schuster at 12/17/2017 5:18 PM Narrative 12/17/2017 5:18 PM EDT EXAMINATION: NM PHARMACOLOGIC STRESS MYOCARDIAL PERFUSION, NM PHARMACOLOGIC STRESS CT COMPONENT CLINICAL HISTORY: Exertional chest press ure/dyspnea in patient with known ASCVD TECHNIQUE: During rest, 8 mCi of technet ium-99m sestamibi was administered intravenously. Approximately 20 minutes later, SPECT images of the heart were obtained with reconstruction in the shor t, vertical long and horizontal long axis. The patient then received regadenoson in travenously at a dose of 0.4 mg. 20 seconds later, 25.6 mCi of technetium-99 m sestamibi was administered intravenously. Images of the heart were then again obtained with SPECT reconstruction. A low-dose CT scan was acquired for the purpose of attenuation correction. COMPARISON: None FINDINGS: No fixed or reversible perfusion defects are present. Functional analysis: Myocardial function: There is normal wal l thickening and wall motion. Left ventricular ejection fraction: 68 % (normal greater than than 50%). Incidental CT findings: Coronary and aor tic calcification. Procedure Note Tae Schuster MD - 12/17/2017Formatti ng of this note might be different from the original. EXAMINATION: NM PHARMACOLOGIC STRESS DAR CARDIAL PERFUSION, NM PHARMACOLOGIC STRESS CT COMPONENT CLINICAL HISTORY: Exertional chest press ure/dyspnea in patient with known ASCVD TECHNIQUE: During rest, 8 mCi of technet ium-99m sestamibi was administered intravenously. Approximately 20 minutes later, SPECT images of the heart were obtained with reconstruction in the shor t, vertical long and horizontal long axis. The patient then received regadenoson in travenously at a dose of 0.4 mg. 20 seconds later, 25.6 mCi of technetium-99 m sestamibi was administered intravenously. Images of the heart were then again obtained with SPECT reconstruction. A low-dose CT scan was acquired for the purpose of attenuation correction. COMPARISON: None FINDINGS: No fixed or reversible perfusion defects are present. Functional analysis: Myocardial function: There is normal wal l thickening and wall motion. Left ventricular ejection fraction: 68 % (normal greater than than 50%). Incidental CT findings: Coronary and aor tic calcification. IMPRESSION 1. No ischemia or scar. Left ventricular function is normal. 2. Coronary and aortic calcification. Preliminary report signed by: COY TOSCANO at 12/17/2017 3:27 PM I have personally reviewed the image(s) and the residents interpretation and agree with the findings, Tae Schuster at 12/17/2017 5:18 PM Alton Acevedo MD [facility] NM ORDERABLES NM Pharmacologic Stress Myocardial Perfusion (12/17/2017 11:42 AM EDT) Anatomical Region Laterality Modality Nuclear Medicine Specimen (Source) Anatomical Location Collection Method / Collectio n Time Received Time / Laterality Volume Impressions 12/17/2017 5:18 PM EDT 1. ??No ischemia or scar. ??Left ventricular function is normal. 2. ??Coronary and aortic calcification. Preliminary report signed by: COY TOSCANO at 12/17/2017 3:27 PM I have personally reviewed the image(s) and the residents interpretation and agree with the findings, Tae Schuster at 12/17/2017 5:18 PM Narrative 12/17/2017 5:18 PM EDT EXAMINATION: NM PHARMACOLOGIC STRESS MYOCARDIAL PERFUSION, NM PHARMACOLOGIC STRESS CT COMPONENT CLINICAL HISTORY: Exertional chest press ure/dyspnea in patient with known ASCVD TECHNIQUE: During rest, 8 mCi of technet ium-99m sestamibi was administered intravenously. Approximately 20 minutes later, SPECT images of the heart were obtained with reconstruction in the shor t, vertical long and horizontal long axis. The patient then received regadenoson in travenously at a dose of 0.4 mg. 20 seconds later, 25.6 mCi of technetium-99 m sestamibi was administered intravenously. Images of the heart were then again obtained with SPECT reconstruction. A low-dose CT scan was acquired for the purpose of attenuation correction. COMPARISON: None FINDINGS: No fixed or reversible perfusion defects are present. Functional analysis: Myocardial function: There is normal wal l thickening and wall motion. Left ventricular ejection fraction: 68 % (normal greater than than 50%). Incidental CT findings: Coronary and aor tic calcification. Procedure Note Tae Schuster MD - 12/17/2017Formatti ng of this note might be different from the original. EXAMINATION: NM PHARMACOLOGIC STRESS DAR CARDIAL PERFUSION, NM PHARMACOLOGIC STRESS CT COMPONENT CLINICAL HISTORY: Exertional chest press ure/dyspnea in patient with known ASCVD TECHNIQUE: During rest, 8 mCi of technet ium-99m sestamibi was administered intravenously. Approximately 20 minutes later, SPECT images of the heart were obtained with reconstruction in the shor t, vertical long and horizontal long axis. The patient then received regadenoson in travenously at a dose of 0.4 mg. 20 seconds later, 25.6 mCi of technetium-99 m sestamibi was administered intravenously. Images of the heart were then again obtained with SPECT reconstruction. A low-dose CT scan was acquired for the purpose of attenuation correction. COMPARISON: None FINDINGS: No fixed or reversible perfusion defects are present. Functional analysis: Myocardial function: There is normal wal l thickening and wall motion. Left ventricular ejection fraction: 68 % (normal greater than than 50%). Incidental CT findings: Coronary and aor tic calcification. IMPRESSION 1. No ischemia or scar. Left ventricular function is normal. 2. Coronary and aortic calcification. Preliminary report signed by: COY TOSCANO at 12/17/2017 3:27 PM I have personally reviewed the image(s) and the residents interpretation and agree with the findings, Tae Schuster at 12/17/2017 5:18 PM Alton Acevedo MD [facility] NM ORDERABLES documented in this encounter Visit Diagnoses Not on filedocumented in this encounter Care Teams Slat Grader Relationship Specialty Start Date End Date Satnam Barnes MD PCP - General 02/07/15 07/11/19 documented as of this encounter
--- OUTSIDE RECORDS SUMMARY | 2022-01-28 01:19 | XMS_ITS | Encounter Summary ---
:1945 Author Organization [facility] [place] [address] Care Team Providers Name Role Phone Satnam Barnes MD Primary Care Provider Reason for Visit Diagnostic Test (Routine) - Closed Specialty Diagnoses / Procedures Referred By Contact Refer red To Contact Radiology Diagnoses Coronary artery disease with exertional angina Alfreda Benitez MD [facility] Rad Nuclear Med Procedures NM Myocardial Perfusion Rest NM Pharmacologic Stress Myocardial Perfusion [facility] [place] [address] [place] [address] Fax: Referral ID Status Reason Start Date Expiration Date Visits V isits Requested Authorized [id number] Closed Specialty 11/11/2017 11/11/2018 2 2 Service Requested Encounter Details Date Type Department Care Team Description 11/16/2017 [facility] [place] [address] [place] [address] [phone] Social History Tobacco Use Types Packs/Day Years [...] Team Description 03/12/2022 Appointment Cardiology Diane Garcia, CAFETERIA OPERATOR [facility] [place] [address] (Wo rk) Pending Results Name Type Priority Associated Diagnoses Date/Ti wv NM Myocardial Perfusion Imaging Routine Coronary artery d isease 11/16/2017 8:38 AM EDT Rest with exertional angina documented as of this encounter Visit Diagnoses Not on filedocumented in this encounter Care Teams Occupational Health Nurse Supervisor Relationship Specialty Start Date End Date Satnam Barnes MD PCP - General 02/07/15 07/11/19 documented as of this encounter
--- OUTSIDE RECORDS SUMMARY | 2022-01-28 01:19 | XMS_ITS | Encounter Summary ---
:1945 [place] [address] Care Team Providers Name Role Phone Satnam Barnes MD Primary Care Provider Reason for Visit Reason Onset Date Comments Medication Refill 02/27/2019 Encounter Details Date Type Department Care Team Description 02/27/2019 Refill Cardiology at [facility] Alton Acevedo MD Medication Refill [facility] [place] [address] [place] [address] [phone] (Wo rk) Social History Tobacco Use Types [...] Team Description 03/12/2022 Appointment Cardiology Diane Garcia, PAPER COATING MACHINE OPERATOR [facility] ER [address] [place], [place] [address] (Wo rk) documented as of this encounter Visit Diagnoses Diagnosis Essential hypertension - Primary Unspecified essential hypertension documented in this encounter Care Teams Dental Sales Representative Relationship Specialty Start Date End Date Satnam Barnes MD PCP - General 02/07/15 07/11/19 documented as of this encounter
--- OUTSIDE RECORDS SUMMARY | 2022-01-28 01:19 | XMS_ITS | Encounter Summary ---
:1945 Author Organization [facility] [place] [address] Care Team Providers Name Role Phone Satnam Barnes MD Primary Care Provider Reason for Visit Diagnostic Test (Routine) - Closed Specialty Diagnoses / Procedures Referred By Contact Refer red To Contact Radiology Diagnoses ASCVD (arteriosclerotic cardiovascular disease) Alfreda Benitez MD [facility] Rad Nuclear Med Procedures NM Pharmacologic Stress Myocardial Perfusion [facility] [place] [address] [place] [address] Fax: Referral ID Status Reason Start Date Expiration Date Visits V isits Requested Authorized [id number] Closed Specialty 12/02/2017 12/02/2018 1 1 Service Requested Encounter Details Date Type Department Care Team Description 12/17/2017 [facility] [place], [place] [id number] [place] [address] [phone] Social History Tobacco Use Types Packs/Day Years [...] Team Description 03/12/2022 Appointment Cardiology Diane Garcia, OFFICE SECRETARY [facility] CARDIOLOGY [place] [address] (Wo rk) documented as of this encounter Procedures Procedure Name Priority Date/Time Associated Diagnosis Comme nts NM PHARMACOLOGIC Routine 12/17/2017 11:42 ASCVD Results for this STRESS AND REST AM EDT (arteriosclerotic procedu re are in MYOCARDIAL PERFUSION cardiovascular the r esults disease) section. documented in this encounter Visit Diagnoses Not on filedocumented in this encounter Administered Medications Inactive Administered Medications - up to 3 most recent administrations Medication Order MAR Action Action Date Dose Rate Site regadenoson (LEXISCAN) injection Given 12/17/2017 11:35 AM EDT 0 .4 mg 0.4 mg 0.4 mg, Intravenous, ONCE, 1 dose, On Wed12/17/17 at 1200, Routine technetium (Tc-99m) sestamibi injection Given 12/17/2017 11:35 A M EDT 25.6 mCi 25.6 mCi 25.6 mCi, Intravenous, ONCE PRN, 1 dose, Starting on Wed12/17/17 at 1135, Until Wed12/17/17 at 1135, Per Protocol, Routine documented in this encounter Care Teams Thread Twister Relationship Specialty Start Date End Date Satnam Barnes MD PCP - General 02/07/15 07/11/19 documented as of this encounter
--- OUTSIDE RECORDS SUMMARY | 2022-01-28 01:19 | XMS_ITS | Encounter Summary ---
:1945 Author Organization [facility] Address [address] [place] [address] Care Team Providers Name Role Phone Satnam Barnes MD Primary Care Provider Reason for Referral Diagnostic Test (Routine) - Closed Specialty Diagnoses / Procedures Referred By Contact Refer red To Contact Diagnoses Sinus arrest Shon Bro MD Procedures [facility] [place] [address] Referral ID Status Reason Start Date Expiration Date Visits V isits Requested Authorized [id number] Closed Specialty 11/16/2017 11/16/2018 1 1 Service Requested Encounter Details Date Type Department Care Team Description 11/16/2017 Orders Only Cardiology at [facility] Shon Bro MD Sinus arrest [facility] [phone] CARDIOLOGY DEPT [phone] [place], [place] [address] (Wo rk) Social History Tobacco [...] on file documented as of this encounter Progress Notes Shon Bro MD - 11/16/2017 10:20 AM EDT This is a 72-year-old gentleman with history of diagonal disease (medically managed, hypertension, hyperlipidemia, obstructive sleep apnea who was brought in to nuclear stress lab for nuclear stress test. Pre-stress EKG showed sinus arrest with pauses up to 5 seconds (patient asymptomatic). His heart rate at baseline is in 50's. He is on metoprolol 50 twice daily previously used to be on nebivolol (insurance company was not covering nebivolol). Regadenoson /exercise stress test was canceled. Case was reviewed with Dr. Acevedo. Plan: discontinue metoprolol. Patient and his have been advised about that. They verbalize understanding. I took him and his to cardiology clinic to get him Zio patch and an appointment with Dr. Acevedo. He is getting Zio patch today. He is getting an appointment with Dr. Acevedo in 2 weeks. I have advised him and his that if he is getting dizzy, lightheaded or he has very slow pulse or is having syncope he should seek medical attention right away. documented in this encounter Plan of Treatment Upcoming Encounters Date Type Specialty Care Team Description 03/12/2022 Appointment Cardiology Diane Garcia, ENVELOPE STAMPING MACHINE OPERATOR [facility] CARDIOLOGY [place], [place] [address] (Wo rk) documented as of this encounter Results Ziopatch (11/16/2017 12:20 PM EDT) Specimen (Source) Anatomical Location Collection Method / Collectio n Time Received Time / Laterality Volume Narrative Avinash Melgar MD - 12/24/2017 8:40 PM EDT [facility] ? Zio Patch? Ambulatory Cardiac Event Monitor Report Study Dates: 11/16/17 - 11/30/17 Analysis Time: 13 days and 22 hours Summary Data Predominant rhythm : sinus rhythm , Rang e 54-110 BPM , Average rate 69 BPM. Eight (8)sinus pauses occurred, the long est lasting 4.9 secs.The longest appeared to be secondary to sinus exit b lock (the pause being a multiple of the preceding P-P intervals). Other p auses shown for review ended in an escape beat before resumption of sinus r hythm. ??All 8 pauses occurred on the 1st day of monitoring 11/26/17, and w ere clustered around 11:55 AM and 6:50 PM. Atrial fibrillation / flutter: None Ectopic beats There were rare atrial premature beats, couplets and triplets.(<1% each) There were 3 runs of SVT/PAT the fastest lasting 4 beat reaching 152 BPM and the longest lasting 6 beats with an avg rate of 109 bpm. There were rare isolated ventricular pre mature beats and couplets (<1% each). There was one ventricular quadruplet ave raging 128 BPM. ?? No higher grade ectopy was seen Triggered and Patient Diary Events There were 5 patient-triggered events wh ich showed: sinus rhythm 65-78 BPM without ectopy, except for one atrial an d one ventricular premature beat occurring AFTER the patient pressed the trigger. There were one single patient dairy entr y reporting shortness of breath, lightheaded, chest pain/pressure: sinus rhythm 64 with a single atrial premature beat. Conclusion(s): ?? Study notable for sinus pauses / exit bl ock with 3.0-4.2 second pauses on 11/16/17 only. Otherwise rare generally lo wgrade ambient ectopy only. Reported symptoms not associated with pa uses and poorly correlated with ectopy. Avinash Melgar MD, PhD, [facility] Cardiac Electrophysiology Alton Acevedo MD CARDIAC SERVICES ORDERABLES documented in this encounter Visit Diagnoses Diagnosis Sinus arrest Other heart block Sinus arrest Other heart block documented in this encounter Care Teams Senior Laboratory Technician Relationship Specialty Start Date End Date Satnam Barnes MD PCP - General 02/07/15 07/11/19 documented as of this encounter
--- OUTSIDE RECORDS SUMMARY | 2022-01-28 01:19 | XMS_ITS | Encounter Summary ---
:1945 Author Organization [facility] [place] [address] Care Team Providers Name Role Phone Satnam Barnes MD Primary Care Provider Reason for Referral Diagnostic Test (Routine) - Specialty Diagnoses / Procedures Referred By Contact Refer red To Contact Radiology Diagnoses Coronary artery disease with exertional angina Alfreda Benitez MD [facility] Rad Nuclear Med Procedures NM Pharmacologic Stress CT Component [facility] [place] [place], [place] [address] [place] [phone] Fax: Referral ID Status Reason Start Date Expiration Visits Visits Date Requested Authorized [id number] Specialty 11/11/2017 11/11/2018 2 2 Service Requested Reason for Visit Diagnostic Test (Routine) - Specialty Diagnoses / Procedures Referred By Contact Refer red To Contact Radiology Diagnoses Coronary artery disease with exertional angina Alfreda Benitez MD [facility] Rad Nuclear Med Procedures NM Pharmacologic Stress CT Component [facility] [place], [place] [address] [place] [phone] Fax: Referral ID Status Reason Start Date Expiration Visits Visits Date Requested Authorized [id number] Specialty 11/11/2017 11/11/2018 2 2 Service Requested Encounter Details Date Type Department Care Team Description 11/16/2017 Hospital Encounter [facility] [place] Coronary artery Concepcion Lira MD [facility] angina [facility] [address] [place], [place] [address] [phone] Social History Tobacco Use Types Packs/Day Years [...] Team Description 03/12/2022 Appointment Cardiology Diane Garcia, SENIOR ACCOUNTANT ANALYST [facility] CARDIOLOGY [place], [place] [address] (Wo rk) Scheduled Orders Name Type Priority Associated Diagnoses Order S chedule NM Pharmacologic Stress Imaging Routine Coronary Artery [address] Component Disease With 11/16/2017 unti l Exertional Angina 11/16/2017 documented as of this encounter Visit Diagnoses Diagnosis Coronary artery disease with exertional angina documented in this encounter Care Teams Battery Assembler Dry Cell Relationship Specialty Start Date End Date Satnam Barnes MD PCP - General 02/07/15 07/11/19 documented as of this encounter
--- OUTSIDE RECORDS SUMMARY | 2022-01-28 01:19 | XMS_ITS | Encounter Summary ---
:1945 Author Organization [employer] Address [address] [place] [address] Care Team Providers Name Role Phone Jessie Bose APRN Primary Care Provider Encounter Details Date Type Department Care Team Description 05/14/2020 Office Visit Cardiology at [facility] [place] Rian Richards Sinus node dysfunction; [facility] MD [address] [place] [address] Cardiology [phone] [place] [id number] Social History Tobacco Use Types Packs/Day Years [...] Sign Reading Time Taken Comments Blood Pressure 148/72 05/14/2020 2:34 PM EST Pulse 65 05/14/2020 2:34 PM EST Temperature - - Respiratory Rate - - Oxygen Saturation 98% 05/14/2020 2:34 PM EST Inhaled Oxygen Concentration - - Weight 97.5 kg (215 lb) 05/14/2020 2:34 PM EST Height 175.3 cm (5' 9) 05/14/2020 2:34 PM EST Body Mass Index 31.75 05/14/2020 2:34 PM EST documented in this encounter Progress Notes Rian Richards MD - 05/14/2020 3:00 PM EST Images from the original note were not included. Formerly [facility] [address], [place] [address] Cardiology Clinic Note CC: CAD Patient Name: Corona Romo HPI: Corona Romo is a 75 y.o. 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 He has previously been followed by Dr. Marino and Dr. Acevedo. Here today for routine yearly follow up and to establish longitudinal care with a new crayon sawyer. States that he has no acute issues or concerns today. Reports that he is doing well from a CV perspective. States: I can do what I want when I want. Does not exercise per se but stays active around the house. Walks his dogs every day (~1/4 mile). Shovels his driveway by hand in the snow; driveway is100 yards long. Denies any exertional symptoms. Uses an automatic BP cuff at home routinely; this AM was 150/80s. Lost 120 lbs in the past year. Wants to get down to 200 lbs. Recent Hgb A1c came down to < 7%. 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 CIS - DJD ??? CIS - DM, Type II ??? CIS - Morbid obesity ??? History of total knee [...] performed by Chandra Del Rosario MD at [facility] MAIN OR Current Outpatient Medications Medication Instructions ??? albuterol (PROVENTIL HFA;VENTOLIN HFA) 90 mcg/Actuation inhaler 2 puffs, EVERY 4 HOURS PRN ??? amLODIPine (NORVASC) 10 mg, Oral, DAILY ??? amoxicillin (AMOXIL) 500 mg, Oral, PRN ??? aspirin EC 81 mg, Oral, DAILY ??? atorvastatin (LIPITOR) 80 mg Tablet 1 tablet, Oral, NIGHTLY ??? buPROPion SR (BUDEPRION SR) 150 mg, 2 TIMES DAILY ??? carvediloL (COREG) 6.25 mg, Oral, 2 TIMES DAILY WITH MEALS ??? cholecalciferol (Vitamin D3) (CHOLECALCIFEROL (VITAMIN D3)) 2,000 Units, Oral, DAILY ??? doxazosin (CARDURA) 4 mg, Oral, DAILY ??? finasteride (PROSCAR) 5 mg Tablet DAILY ??? furosemide (LASIX) 40 mg, Oral, 2 TIMES DAILY, Please ask patient to call crayon sawyer's office for appt.before further refills-he is overdue ??? losartan (COZAAR) 100 mg, DAILY ??? metFORMIN (GLUCOPHAGE) 1,000 mg, 2 TIMES DAILY WITH MEALS ??? nitroGLYcerin (NITROSTAT) 0.3 mg, Sublingual, EVERY 5 MIN PRN ??? penicillin v potassium (VEETID) 500 mg tablet 500mg, PO, BID ??? potassium chloride (K-DUR/KLOR-CON) 20 mEq extended release tablet 20 mEq, 2 TIMES DAILY Social History Socioeconomic History ??? Marital status: Spouse name: Not on file ??? Number of children: Not on file ??? Years of education: Not on file ??? Highest education level: Not on file Occupational History ??? Not on file Social Needs ??? Financial resource strain: Not on file ??? Food insecurity Worry: Not on file Inability: Not on file ??? Transportation needs Medical: Not on file Non-medical: Not on file Tobacco Use ??? Smoking status: Never Smoker ??? Smokeless tobacco: Never Used Substance and Sexual Activity ??? Alcohol use: No Comment: pt reports he quit years ago. alcoholic ??? Drug use: No ??? Sexual activity: Not on file Lifestyle ??? Physical activity Days per week: Not on file Minutes per session: Not on file ??? Stress: Not on file Relationships ??? Social connections Talks on phone: Not on file Gets together: Not on file Attends congregation service: Not on file Active member of club or organization: Not on file Attends meetings of clubs or organizations: Not on file Relationship status: Not on file ??? Intimate partner violence Fear of current or ex partner: Not on file Emotionally abused: Not on file Physically abused: Not on file Forced sexual activity: Not on file Other Topics Concern ??? Not on file Social History Narrative ??? Not on file 24 HR Review of [...] bleeding Neuro: No headaches; No sensory deficits Vitals: Last value Range last 24 hrs Temperature Temp: -- Heart Rate Heart Rate: 65 Heart Rate: [65] Blood Pressure BP: 148/72 BP: (148)/(72) Respiratory Rate Resp: -- SpO2 SpO2: 98 % SpO2: [98 %] Examination: CONST: Pleasant, Well-appearing NEURO: Oriented x3; no obvious deficits PSYCH: NAD, Normal mood HEENT: Non-icteric sclera MSK: Ambulates w/o difficulty CV: JVP not elevated; RRR, normal S1+S2, no murmurs PULM: CTAB GI: Soft, non-tender, non-distended, +BS EXTREMITIES: No lower extremity edema; 2+ Radial pulses bilaterally SKIN: No rashes Laboratory: No results for input(s): WBC, HGB, [...] imaging studies ASSESSMENT: Corona Romo is a 75 y.o. 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 He has previously been followed by Dr. Marino and Dr. Acevedo. Here today for routine yearly follow up and to establish longitudinal care with a new crayon sawyer. He has no newCV complaints and reports that he is doing well overall. BP is not ideally controlled so we discussed this at length today. Will had a low-dose of carvedilol and follow closely based on his home values. PLAN: # Hypertension, not ideally controlled - continue amlodipine 10 mg daily, losartan 100 mg daily , and lasix 40 mg BID - will start carvedilol 3.125 mg BID; careful titration of this med given hx of sinus node dysfunction - advised to resume CPAP - discussed continued weight loss?? # ASCVD, chronic, stable - No chest pain - 2018 stress test w/out ischemia or scar ?? # Lipid disorder - continue atorvastatin 80mg daily ?? # RJ (obstructive sleep apnea) - has a diagnosis of RJ and has a sleep mask but does not use it ?? # Sinus node dysfunction - sinus bradycardia improved with holding of nebivolol (bblocker). - currently on metop succ and tolerating well - no presyncope / syncope currently ?? # Diabetes mellitus Rian Richards MD, FACP, FACC Section of Cardiovascular Medicine [facility] Instructor Creelerpower system operator [facility] documented in this encounter Plan of Treatment Upcoming Encounters Date Type Specialty Care Team Description 03/12/2022 Appointment Cardiology Diane Garcia APRN [facility] [place] (Wo rk) documented as of this encounter Procedures Procedure Name Priority Date/Time Associated Diagnosis Comme nts EKG 12-LEAD Routine 05/14/2020 2:36 PM Sinus node dysfunction Results for this EST procedure are i n the results section. documented in this encounter Results EKG 12 Lead (05/14/2020 2:36 PM EST) Component Value Ref Range Test Analysis Performed Pathologis t Method Time At Signature Ventricular rate 64 BPM MUSE SYSTEM Atrial Rate 64 BPM MUSE SYSTEM P-R Interval 166 ms MUSE SYSTEM QRS Duration 96 ms MUSE SYSTEM Q-T Interval 410 ms MUSE SYSTEM QTC Calculated 422 ms MUSE SYSTEM (Bezet) Calculated R [place] -7 degrees MUSE SYSTEM Calculated T [place] 53 degrees MUSE SYSTEM INTERPRETATION Normal sinus rhythm MUSE SYSTEM Normal ECG When compared with ECG of 02-DEC-2017 11:20, No significant change was found Confirmed by Matilda Damon ([id number]) on 05/14/2020 2:55:34 P M Specimen Anatomical Collection Method Collection Time Receive d Time (Source) Location / / Volume Laterality 05/14/2020 2:36 PM 0 2:55 EST PM EST Mitzi Bo MD ECG ORDERABLES Performing Organization Address City/State/ZIP Code Phon e Number MUSE SYSTEM documented in this encounter Visit Diagnoses Diagnosis Sinus node dysfunction Sinoatrial node dysfunction Essential hypertension Unspecified essential hypertension documented in this encounter Care Teams Supervisor Press Room Relationship Specialty Start Date End Date Jessie Bose APRN PCP - General Geriatric Medicine 05/14/[address] [place] [address] documented as of this encounter
--- OUTSIDE RECORDS SUMMARY | 2022-01-28 01:19 | XMS_ITS | Encounter Summary ---
:1945 Author Organization [facility] [place] [address] Care Team Providers Name Role Phone Satnam Barnes MD Primary Care Provider Reason for Referral Diagnostic Test (Routine) - Specialty Diagnoses / Procedures Referred By Contact Refer red To Contact Radiology Diagnoses Coronary artery disease with exertional angina Alfreda Benitez MD [facility] Rad Nuclear Med Procedures NM Pharmacologic Stress CT Component [facility] [place] [address] [place] [address] Fax: Referral ID Status Reason Start Date Expiration Visits Visits Date Requested Authorized [id number] Specialty 11/11/2017 11/11/2018 2 2 Service Requested Encounter Details Date Type Department Care Team Description 11/11/2017 Office Visit Cardiology at [facility] Alton Acevedo, Coronary artery disease with exertional angina; [facility] Essential hypertension; [facility] Coronary artery disease invo lving rampart heart with angina pectoris, unspecified vessel or lesion type; [place], [place] Lipid disorder; [phone] [place] [address] Obesity, unspecified classification, uns pecified obesity type, unspecified whether serious comorbidity present [phone] Social History Tobacco Use Types Packs/Day Years [...] Sign Reading Time Taken Comments Blood Pressure 142/80 11/11/2017 9:25 AM EDT Pulse 51 11/11/2017 9:25 AM EDT Temperature - - Respiratory Rate - - Oxygen Saturation 96% 11/11/2017 9:25 AM EDT Inhaled Oxygen Concentration - - Weight 114.3 kg (252 lb) 11/11/2017 9:25 AM EDT Height 175.3 cm (5' 9) 11/11/2017 9:25 AM EDT Body Mass Index 37.21 11/11/2017 9:25 AM EDT documented in this encounter Progress Notes Alfreda Benitez MD - 11/11/2017 9:40 AM EDT Images from the original note were not included. [facility] [place] [address] [place] [address] CARDIOLOGY OUTPATIENT NOTE PRIMARY CARE PROVIDER: Satnam Barnes MD REFERRING PROVIDER: Satnam Barnes PROBLEM LIST: Patient Active Problem List Diagnosis ??? 12/11/2013 S/P Right total knee arthroplasty ??? Preop testing - TKR ??? Osteoarthritis of right knee ??? CAD (coronary artery disease) ??? Myocardial infarction, old ??? Lipid disorder ??? Hypertension ??? RJ (obstructive sleep apnea) ??? History of total knee arthroplasty(LEFT) ??? CIS - DJD ??? CIS - DM, Type II ??? CIS - Morbid obesity MEDICATIONS: Current Outpatient Prescriptions Medication Sig Dispense Refill ??? nebivolol (BYSTOLIC) 5 mg Tablet Take 10 mg by mouth daily. ??? amLODIPine (NORVASC) 10 mg Tablet Take 1 tablet by mouth daily. 0 ??? atorvastatin (LIPITOR) 80 mg Tablet Take 1 tablet by mouth daily. 0 ??? amoxicillin (AMOXIL) 500 mg Capsule Take 500 mg by mouth as needed. 0 ??? doxazosin (CARDURA) 4 mg Tablet Take 4 mg by mouth daily. 0 ??? doxazosin (CARDURA) 2 mg Tablet Take 2 mg by mouth daily. 0 ??? furosemide (LASIX) 20 mg Tablet Take 20 mg by mouth 2 times daily. 0 ??? aspirin 325 mg tablet Take 325 mg by mouth daily. ??? Nebivolol (BYSTOLIC) 10 mg Tab Take 1 tablet by mouth 2 times daily. ??? losartan (COZAAR) 100 mg tablet Take 100 mg by mouth daily. ??? potassium chloride (K-DUR/KLOR-CON) 20 mEq extended release tablet Take 20 mEq by mouth 2 times daily. ??? metFORMIN (GLUCOPHAGE) 500 mg tablet Take 1,000 mg by mouth 2 times daily (with meals). ??? buPROPion (BUDEPRION SR) 150 mg 12 hr tablet Take 150 mg by mouth 2 times daily. ??? albuterol (PROVENTIL HFA;VENTOLIN HFA) 90 mcg/Actuation inhaler Inhale 2 puffs into the lungs every 4 hours as needed. Use with spacer ??? penicillin v potassium (VEETID) 500 mg tablet 500mg, PO, BID (Patient taking differently: 2 times Daily) No current facility-administered medications for this visit. Subjective: Patient ID: Corona Romo is a 72 y.o. male. He has a history of hypertension, hyperlipidemia, obesity, DM2 on oral medications, RJ on CPAP and ASCVD with one vessel disease (Diag) managed medically after remote NSTEMI in 1998 (last cath at that time). He has previously been followed by Dr. Marino and presents today for routine yearly follow up and to establish longitudinal care with a new ship surveyor. HPI At the time of his last visit with Dr. Marino in August 2016 the patient had complaints of orthostatic symptoms but no bobby syncope. This was felt to be related to his numerous antihypertensivesand taking them all in the morning. At that time Dr. Marino recommended discontinuing the patient's amlodipine and moving his nebivolol dosing to the evening. His antihypertensive regimen otherwiseincludes losartan 100mg and furosemide 20mg po bid. He is also on doxazosin although this is for hisBPH. His other cardiovascular medications include ASA 325mg and atorvastatin 80mg. He takes metformin for management of his diabetes. Mr. Romo reports today that he is doing okay. Feels about the same overall as he did the last time he saw Dr. Marino. His , who is present for the visit, thinks he is doing worse. Reports he is having his blood pressure shoot up all over the place (his 's words). This happens most frequently when his blood sugar is low and it sometimes happens after exerting himself. It isnot always high. This morning is was 120s/70s. This is complicated by the fact that he does have continued intermittent orthostatic symptoms, and despite Dr. Marino's prior recommendations to stop the amlodipine, he has continued it. He has some blurry vision but this is chronic and unchanged. He has not had headaches. He has also been having intermittent exertional chest pain, which he reports is unchanged from baseline, however, this was not noted in Dr. Marino's last note and the patient's thinks it is getting worse. She is concerned because as the weather gets better they will be spending more time active outdoors and she is worried he will only get worse. The pain is described as central pressure accompanied by shortness of breath which comes on with exertion (although he has a hard time identifying a specific level of exertion) and is relieved with rest. It is also accompanied by diaphoresis but not nausea or vomiting. He has not used NTG SL for many years and doesn't have an active prescription for it. Review of Systems Positive for fatigue, sleep disturbance, diarrhea, dry mouth, depressed mood, anxiety, joint pain, urinary frequency, dysuria and as noted in the HPI. Otherwise 12 point ROS is negative. Family history: Both parents . Mother with ASCVD/IL. Brother with ASCVD/IL. Social history: Presents with his . They like to lutz together. They walk together in good weather. Acknowledge that they could work on diet. Never smoker. No alcohol or illicits. Objective: Physical Exam Most Recent Vitals: 11/11/17 0925 BP: 142/80 Pulse: 51 SpO2: 96% Pleasant obese elderly male in NAD but very restless/fidgety NC/AT, sclera anicteric, EOMI Regular rhythm with bradycardic rate, distant heart sounds especially at the apex, S1 and S2 noted, no M/G/R appreciated Respirations unlabored, Lungs CTAB Abd obese, benign Extremities WWP, trace to 1+ non-pitting edema of BLE Alert and oriented. Face symmetric. Strength and sensation grossly intact. No results found for this or any previous visit (from the past 72 hour(s)). EKG (August 2016): Sinus bradycardia Otherwise normal ECG When compared with ECG of 02-OCT-2013 14:52, No significant change was found NM MPI (July 2012): ? Findings The post pharmacologic and rest images demonstrate no reversible or fixed perfusion defects. LV cavity size is within normal limits. The gated study shows normal left ventricular wall thickening and wall motion. The estimated left ventricular ejection fraction is 58%, as compared to the reported 63% on the prior 2004 study. ? Impression No evidence of ischemia or scar. Normal left ventricular function with an estimated LVEF of 58%. Assessment and Plan: Hypertension Unclear control at this juncture, and complicated by orthostatic symptoms. His described episodes ofhypertension tend to occur after times of physiologic stress and thus are unlikely to be a good marker of his overall control. He has also been holding his arm tense up in the air when checking his BP (told he needed to have the cuff at the level of the heart). I discussed with them in detail how to check to BP correctly, including having the arm supported (not held up in the air) and to do it at times of physical and emotional calm and not during times of stress or just after exerting themselves. Because he has had problems with orthostasis before, I think we do need more information before adjusting his BP meds. He will follow the above instructions and keep a detailed BP diary (including time of day, recent activities) from now until our next visit. If this is insufficient, we may need to pursue ambulatory blood pressure monitoring for more detail. No medication changes for now. CAD (coronary artery disease) Currently on good medical management with ASA, atorvastatin 80mg, nebivolol and losartan. However, current symptoms suggestive of slowly progressive exertional angina. He had a normal stress test in 2012 but I think it is reasonable to repeat at this time. We will obtain a NM MPI, if he can do the exercise portion that would be great but I ordered a pharmacologic because I am concerned he will not beable to reach a target heart rate. I prescribed for him NTG SL to use as needed. Lipid disorder Continue atorvastatin 80mg. Obesity Discussed diet with a goal of weight loss. Return to clinic in 4-6 weeks after stress testing. Precautions for presenting to the ED or calling 911 were advised. Thank you for the opportunity to participate in this patient's cardiovascular care. All questions were answered and I look forward to the next visit. Alfreda Benitez PGY-4, Cardiovascular Diseases Fellow [facility] Personal Pager #[phone] I have read the fellow's note, examined the patient, and reviewed related information. I agree with the management. Alton Acevedo MD documented in this encounter Miscellaneous Notes Assessment & Plan Note - Alfreda Benitez MD - 11/11/2017 4:03 PM EDTAssociated Problem(s): Obesity Discussed diet with a goal of weight loss. Assessment & Plan Note - Alfreda Benitez MD - 11/11/2017 4:02 PM EDTAssociated Problem(s): Lipid disorder Continue atorvastatin 80mg. Assessment & Plan Note - Alfreda Benitez MD - 11/11/2017 3:57 PM EDTAssociated Problem(s): CAD (coronary artery disease) Currently on good medical management with ASA, atorvastatin 80mg, nebivolol and losartan. However, current symptoms suggestive of slowly progressive exertional angina. He had a normal stress test in 2012 but I think it is reasonable to repeat at this time. We will obtain a NM MPI, if he can do the exercise portion that would be great but I ordered a pharmacologic because I am concerned he will not beable to reach a target heart rate. I prescribed for him NTG SL to use as needed. Assessment & Plan Note - Alfreda Benitez MD - 11/11/2017 3:52 PM EDTAssociated Problem(s): Hypertension Unclear control at this juncture, and complicated by orthostatic symptoms. His described episodes ofhypertension tend to occur after times of physiologic stress and thus are unlikely to be a good marker of his overall control. He has also been holding his arm tense up in the air when checking his BP (told he needed to have the cuff at the level of the heart). I discussed with them in detail how to check to BP correctly, including having the arm supported (not held up in the air) and to do it at times of physical and emotional calm and not during times of stress or just after exerting themselves. Because he has had problems with orthostasis before, I think we do need more information before adjusting his BP meds. He will follow the above instructions and keep a detailed BP diary (including time of day, recent activities) from now until our next visit. If this is insufficient, we may need to pursue ambulatory blood pressure monitoring for more detail. No medication changes for now. documented in this encounter Plan of Treatment Upcoming Encounters Date Type Specialty Care Team Description 03/12/2022 Appointment Cardiology Diane Garcia, BUTADIENE COMPRESSOR OPERATOR [facility] CARDIOLOGY [place], [place] 0375 (Wo rk) Pending Results Name Type Priority Associated Date/Time Diagnoses Nuclear Pharmacologic Cardiac Services Routine Coronary artery 11/16/2017 10:19 Stress Cardiology disease with AM EDT exertional angina Scheduled Orders Name Type Priority Associated Order Schedule Diagnoses NM Pharmacologic Stress Imaging Routine Coronary Artery E xpected: CT Component Disease With 11/12/2017 Exertional Angina (Approxima te), Expires: 11/11/2018 Nuclear Pharmacologic Cardiac Services Routine Coronary Artery Expected: Stress Cardiology Disease With 11/11/2017 , Exertional Angina Expires: 05/13/2018 documented as of this encounter Visit Diagnoses Diagnosis Coronary artery disease with exertional angina Essential hypertension Unspecified essential hypertension Coronary artery disease involving rampart heart with angina pectoris, unspecified vessel or lesion type Lipid disorder Unspecified disorder of lipoid metabolis m Obesity, unspecified classification, uns pecified obesity type, unspecified whether serious comorbidity present documented in this encounter Care Teams Hair Colorist Relationship Specialty Start Date End Date Satnam Barnes MD PCP - General 02/07/15 07/11/19 documented as of this encounter
--- OUTSIDE RECORDS SUMMARY | 2022-01-28 01:19 | XMS_ITS | Encounter Summary ---
:1945 Author Organization [facility] [place] [address] Care Team Providers Name Role Phone Satnam Barnes MD Primary Care Provider Reason for Visit Reason Comments After[facility] Of [facility] R TKA DOS 12/11/13 Encounter Details Date Type Department Care Team Description 11/18/2015 [facility] Status post total right knee replacement; [facility] Sun Guardado APRN History of total knee arthroplasty, [place] [address] ORTHOPAEDIC SURG [place], [place] [address] (Wo rk) Social History Tobacco [...] Sign Reading Time Taken Comments Blood Pressure 122/45 11/18/2015 11:00 AM EDT Pulse 53 11/18/2015 11:00 AM EDT Temperature - - Respiratory Rate - - Oxygen Saturation - - Inhaled Oxygen Concentration - - Weight 111.1 kg (245 lb) 11/18/2015 11:00 AM EDT STATED Height 175.3 cm (5' 9) 11/18/2015 11:00 AM EDT STATED Body Mass Index 36.18 11/18/2015 11:00 AM EDT documented in this encounter Progress Notes Sun Chang, MELISSA - 11/18/2015 11:17 AM EDT Patient Name: Corona Romo : 1945 MR#: [id number] Case Date: 09-10-05 Surgeon: Sadie Dle Rosario Procedure: Left total knee replacement Case Date: 12-11-2013 Surgeon: Sadie Del Rosario Procedure: right total knee replacement CC: 10 year f/u Left TKA, 2 year f/u Right TKA. HPI: Corona Romo is a very pleasant 70 y.o. year-old male who presents for a 2 year follow-up of aright TKA and 10 year follow up of his left TKA. The patient has been doing very well and his pain is markedly improved over preoperative status. No fevers, chills, nausea, vomiting, or symptoms of infection. He also denies increased pain, swelling, or symptoms of loosening about his knees. Corona hasbeen ambulating with no assistive device. Patient is very happy with outcome of the surgery and is able to play with his grandson and hike and was without any difficulty. He also reports his diabetes has been well controlled and his last hemoglobin A1c was 6.3%. Active Ambulatory Problems Diagnosis Date Noted ??? CIS - DJD 01/31/2009 ??? CIS - DM, Type II 01/31/2009 ??? CIS - Morbid obesity 01/31/2009 ??? History of total knee arthroplasty(LEFT) 05/14/2011 ??? CAD (coronary artery disease) 06/01/2012 ??? Myocardial infarction, old 06/01/2012 ??? Lipid disorder 06/01/2012 ??? Hypertension 06/01/2012 ??? RJ (obstructive sleep apnea) 06/01/2012 ??? Osteoarthritis of right knee 08/04/2012 ??? Preop testing - TKR 09/09/2012 ??? 12/11/2013 S/P Right total knee arthroplasty 12/11/2013 Resolved Ambulatory Problems Diagnosis Date Noted ??? CIS - Obstructive sleep apnea, on CPAP daily 01/31/2009 No Additional Past Medical History Current outpatient prescriptions: ??? amLODIPine (NORVASC) 10 mg Tablet, Take 1 tablet by mouth daily., Disp: , Rfl: 0 ??? atorvastatin (LIPITOR) 80 mg Tablet, Take 1 tablet by mouth daily., Disp: , Rfl: 0 ??? amoxicillin (AMOXIL) 500 mg Capsule, Take 500 mg by mouth daily., Disp: , Rfl: 0 ??? doxazosin (CARDURA) 4 mg Tablet, Take 4 mg by mouth daily., Disp: , Rfl: 0 ??? doxazosin (CARDURA) 2 mg Tablet, Take 2 mg by mouth daily., Disp: , Rfl: 0 ??? furosemide (LASIX) 20 mg Tablet, Take 20 mg by mouth 2 times daily., Disp: , Rfl: 0 ??? aspirin 325 mg tablet, Take 325 mg by mouth daily., Disp: , Rfl: ??? Nebivolol (BYSTOLIC) 10 mg Tab, Take 1 tablet by mouth 2 times daily., Disp: , Rfl: ??? losartan (COZAAR) 100 mg tablet, Take 100 mg by mouth daily., Disp: , Rfl: ??? potassium chloride (K-DUR/KLOR-CON) 20 mEq extended release tablet, Take 20 mEq by mouth 2 timesdaily., Disp: , Rfl: ??? metFORMIN (GLUCOPHAGE) 500 mg tablet, Take 1,000 mg by mouth 2 times daily (with meals)., Disp: , Rfl: ??? buPROPion (BUDEPRION SR) 150 mg 12 hr tablet, Take 150 mg by mouth 2 times daily., Disp: , Rfl: ??? albuterol (PROVENTIL HFA;VENTOLIN HFA) 90 mcg/Actuation inhaler, Inhale 2 puffs into the lungs every 4 hours as needed. Use with spacer , Disp: , Rfl: ??? penicillin v potassium (VEETID) 500 mg tablet, 500mg, PO, BID, Disp: , Rfl: No Known Allergies [facility] FollowUp 11/18/2015 Health in general Good Quality of life Good Physical health Fair Mental health Good Satisfaction with social activities Good Ability to carry out physical activities Completely Rate of pain 4 Rate of fatigue Moderate Ability to carry out social activities Good Bothered by emotional problems Rarely PROMIS PHYSICAL HEALTH SCORE 42.3 PROMIS MENTAL HEALTH SCORE 45.8 KOOS-PS Scores 0 Gone to ER since knee surgery No Admitted to hospital since knee surgery No Additional surgery on same knee No Physical Exam: Well-appearing male in no acute distress. Alert and Oriented x 3 and answers all questions appropriately. The incisions are well healed, with no signs of infection. No erythema, skin breakdown or effusions about bilateral knees. Post Op Right Knee Exam: Gait Abnormality: Normal Knee ROM: Extension:0 Flexion: 120 Alignment: 0-4 degrees Neutral Stability: A/P Translation <5mm. Varus <5mm Valgus <5mm Extension La degrees or less Patella Tracking: Normal Pulses Palpable: Right PT: Yes Right DP:Yes Motor/Sensory: Distal Motor: Normal Distal Sensory: Normal Quadriceps Strength: 4 I have made the following determinations: Post Op Left Knee Exam: Knee ROM: Extension:0 Flexion: 115 Alignment: 0-4 degrees Neutral Stability: A/P Translation <5mm Varus (lateral stability) <5mm Valgus (medial stability) <5mm Extension La degrees or less Patella Tracking: Normal Pulses Palpable: Left PT:Yes Left DP:Yes Motor/Sensory: Distal Motor: Normal Distal Sensory: Normal Quadriceps Strength:5 Imaging: I reviewed multiple XR images of the patient's bilateral knees taken today, which reveal well placed components without malrotation, osteolysis or complication. Stable femoral HO present-left lateral view. ASSESSMENT/PLAN: 2 year post-op right TKA and 10 years post-op left TKA and doing well. The patient will continue weightbearing as tolerated and working on range of motion, and we will see him back in 2year for repeat examination. X- rays will be needed at that time. Patient may return to normal activities as his pain and function allow. We discussed the appropriate precautions surrounding dental prophylaxis. I stressed that he should avoid elective dental procedures for the first 6 months after surgery and then call the office for a prescription prior to any further dental work for the lifetime of the joint replacement. We also discussed maintaining good foot care and giving prompt attention to any source of infection throughout thebody including foot ulcers and urinary tract infections. Signed: SUN CHANG APRN 11/18/2015 documented in this encounter Plan of Treatment Upcoming Encounters Date Type Specialty Care Team Description 03/12/2022 Appointment Cardiology Diane Garcia, GLASS MOULD CLEANER [facility] C[facility] [place], [place] [address] (Wo rk) documented as of this encounter Visit Diagnoses Diagnosis Status post total right knee replacement History of total knee arthroplasty, left documented in this encounter Care Teams Physician Neonatology Relationship Specialty Start Date End Date Satnam Barnes MD PCP - General 02/07/15 07/11/19 documented as of this encounter
--- OUTSIDE RECORDS SUMMARY | 2022-01-28 01:19 | XMS_ITS | Encounter Summary ---
:1945 Author Organization [facility] [place] [address] Care Team Providers Name Role Phone Satnam Barnes MD Primary Care Provider Encounter Details Date Type Department Care Team Description 11/16/2017 Telephone Cardiology [place] [facility] [place]on Bro MD [facility] [place] [address] CARDIOLOGY DEPT [phone] [place], [place] [address] (Wo rk) Social History Tobacco [...] this encounter Miscellaneous Notes Telephone Encounter - Shon Bro MD - 11/16/2017 10:40 AM EDT This is a 72-year-old gentleman [...] Team Description 03/12/2022 Appointment Cardiology Diane Garcia, MARINE ELECTRICIAN [facility] CARDIOLOGY [place], [place] [address] (Wo rk) documented as of this encounter Visit Diagnoses Not on filedocumented in this encounter Care Teams Drug Counselor Relationship Specialty Start Date End Date Satnam Barnes MD PCP - General 02/07/15 07/11/19 documented as of this encounter
--- OUTSIDE RECORDS SUMMARY | 2022-01-28 01:19 | XMS_ITS | Encounter Summary ---
:1945 Author Organization [facility] Address [address] [place] [address] Care Team Providers Name Role Phone Satnam Barnes MD Primary Care Provider Encounter Details Date Type Department Care Team Description 11/02/2018 Hospital Encounter XRay at [facility] Chandra Del Rosario Status post total right knee replacement; [address] [facility] [address] Taran MD History of total knee arthroplasty, left [facility] [id number] [place] [address] [place] [address] Social History Tobacco Use Types Packs/Day Years [...] (SYMBICORT) 160-4.5 lungs. mcg/actuation HFA Aerosol Inhaler finasteride (PROSCAR) 5 daily. 0 08/15/2018 mg Tablet aspirin 81 mg Tablet, Take 1 tablet by 30 tablet 3 03/15/20 18 Delayed Release mouth daily. (E.C.)Indications: Coronary artery disease involving [place] coronary artery of [place] heart without angina pectoris cholecalciferol, Vitamin Take 2,000 Units by 0 D3, 50 mcg (2,000 unit) mouth daily. Capsule amLODIPine (NORVASC) 10 Take 1 tablet by 90 tablet 3 2017 mg TabletIndications: mouth daily. Essential hypertension nitroGLYcerin (NITROSTAT) [...] by 0 Tablet mouth daily. metFORMIN (GLUCOPHAGE) Take 1,000 mg by 0 500 mg tablet mouth 2 times daily (with meals). buPROPion SR (Wellbutrin Take 150 mg by 0 SR) 150 mg tablet mouth 2 times sustained-release 12 hr daily. albuterol (PROVENTIL Inhale 2 puffs into 0 HFA;VENTOLIN HFA) 90 the lungs every 4 mcg/Actuation inhaler hours as needed. Use with spacer penicillin v potassium 500mg, PO, BID 0 1 (VEETID) 500 mg tablet metoprolol succinate 0 06/15/2018 11/0 09/2019 (TOPROL-XL) 50 mg Tablet Sustained Release 24 hr furosemide (LASIX) 40 mg Take 1 tablet by 180 tablet 3 12/2702/27/2019 TabletIndications: mouth 2 times Essential hypertension daily. potassium chloride Take 20 mEq by 0 (K-DUR/KLOR-CON) 20 mEq mouth 2 times extended release tablet daily. documented as of this encounter Plan of Treatment Upcoming Encounters Date Type Specialty Care Team Description 03/12/2022 Appointment Cardiology Diane Garcia APRN [facility] C[facility] [place], [place] [address] (Wo rk) documented as of this encounter Procedures Procedure Name Priority Date/Time Associated Diagnosis Comme nts XR KNEE AP AND LAT Routine 11/02/2018 9:05 AM Status post tota l Results for this BILAT EDT right knee procedure are i n replacement the results History of total section. knee arthroplasty, left documented in this encounter Results XR Knee 1-2 Views Bilat (Generic) (11/02/2018 9:05 AM EDT) Anatomical Region Laterality Modality Knee Bilateral Digital Radiography Specimen (Source) Anatomical Location Collection Method / Collectio n Time Received Time / Laterality Volume Impressions 11/02/2018 11:04 AM EDT Uncomplicated bilateral total knee arthroplasties. Thank you for letting us participate in the care of this patient. For questions regarding this report, please contact e number below. ? Narrative 11/02/2018 11:04 AM EDT EXAMINATION: XR KNEE 1-2 VIEWS BILAT (GENERIC) CLINICAL HISTORY: s/p B TKA TECHNIQUE: 3 views BILATERAL knee. AP view the bila teral knees, lateral views of each knee. COMPARISON: Multiple left and right knee radiographs , most recently 10/07/2016 and dating back to 10/07/2004. FINDINGS: Postoperative changes status post left t otal knee arthroplasty. No periprosthetic fracture or bone resorpti on. There is bony productive change along the superior anterior margin of th e femoral component. There are quadriceps and patellar enthesophytes. S mall knee joint effusion. Postoperative changes of right total kne e arthroplasty. No periprosthetic fracture. No focal bone resorption. Ques tion trace knee joint effusion. Small quadriceps enthesophyte. Procedure Note Jessie Alfonso MD - 11/02/2018Formattin g of this note might be different from the original. EXAMINATION: XR KNEE 1-2 VIEWS BILAT (GE NERIC) CLINICAL HISTORY: s/p B TKA TECHNIQUE: 3 views BILATERAL knee. AP view the bila teral knees, lateral views of each knee. COMPARISON: Multiple left and right knee radiographs , most recently 10/07/2016 and dating back to 10/07/2004. FINDINGS: Postoperative changes status post left t otal knee arthroplasty. No periprosthetic fracture or bone resorpti on. There is bony productive change along the superior anterior margin of th e femoral component. There are quadriceps and patellar enthesophytes. S mall knee joint effusion. Postoperative changes of right total kne e arthroplasty. No periprosthetic fracture. No focal bone resorption. Ques tion trace knee joint effusion. Small quadriceps enthesophyte. IMPRESSION Uncomplicated bilateral total knee arthr oplasties. Thank you for letting us participate in the care of this patient. For questions regarding this report, please contact [facility] number below. Chandra Del Rosario MD IMG DX ORDERABLES documented in this encounter Visit Diagnoses Diagnosis Status post total right knee replacement History of total knee arthroplasty, left documented in this encounter Care Teams Animal Rehabilitator Relationship Specialty Start Date End Date Satnam Barnes MD PCP - General 02/07/15 07/11/19 documented as of this encounter
--- OUTSIDE RECORDS SUMMARY | 2022-01-28 01:19 | XMS_ITS | Encounter Summary ---
:1945 Author Organization [facility] [place] [address] Care Team Providers Name Role Phone Satnam Barnes MD Primary Care Provider Reason for Visit Diagnostic Test (Routine) - Specialty Diagnoses / Procedures Referred By Contact Refer red To Contact Radiology Diagnoses Coronary artery disease with exertional angina Alfreda Benitez MD [facility] Rad Nuclear Med Procedures NM Pharmacologic Stress CT Component [facility] [place] [address] [place] [address] Fax: Referral ID Status Reason Start Date Expiration Visits Visits Date Requested Authorized [id number] Specialty 11/11/2017 11/11/2018 2 2 Service Requested Encounter Details Date Type Department Care Team Description 11/16/2017 Hospital Encounter Nuclear Medicine at [facility] Coronary artery Concepcion Lira MD disease with [facility] angina [facility] [place] [id number] [phone] Social History Tobacco Use Types Packs/Day Years [...] Team Description 03/12/2022 Appointment Cardiology Diane Garcia, MANAGER [employer] [facility] [place] [address] (Wo rk) Pending Results Name Type Priority Associated Diagnoses Date/Ti me NM Myocardial Perfusion Imaging Routine Coronary artery d isease 11/16/2017 8:38 AM EDT Rest with exertional angina Scheduled Orders Name Type Priority Associated Diagnoses Order S chedule NM Myocardial Perfusion Imaging Routine Coronary Artery 1 Occurrences starting Rest Disease With 11/16/2017 unti l Exertional Angina 11/16/2017 documented as of this encounter Visit Diagnoses Diagnosis Coronary artery disease with exertional angina documented in this encounter Care Teams Mortar Maker Relationship Specialty Start Date End Date Satnam Barnes MD PCP - General 02/07/15 07/11/19 documented as of this encounter
--- OUTSIDE RECORDS SUMMARY | 2022-01-28 01:19 | XMS_ITS | Encounter Summary ---
:1945 Author Organization [facility] [place] [address] Care Team Providers Name Role Phone Jessie Bose STUDIO DATA ANALYST Primary Care Provider Encounter Details Date Type Department Care Team Description 10/21/[address] [facility] Elly Sarabia, [place] [address] Social History Tobacco Use Types Packs/Day [...] Telephone Encounter - Elly Sarabia RN - 10/21/2020 3:19 PM EDT Received call from patient's life partner Nelia back on 10/16/20 regarding patient's BP readings. Patient has a F/U appt. in December with Dr. Richards. Have made several attempt's to reach Nelia and also left 3 messages over the past week. Still awaiting a call back on what she is asking to review. Elly Holbrook RNcoffee farmer [facility] General TeamJesus documented in this encounter Plan of Treatment Upcoming Encounters Date Type Specialty Care Team Description 03/12/2022 Appointment Cardiology Diane Garcia APRN [facility] C[facility] [place], [place] [address] (Wo rk) documented as of this encounter Visit Diagnoses Not on filedocumented in this encounter Care Teams Finishing Supervisor Plastic Sheets Relationship Specialty Start Date End Date Jessie Bose APRN PCP - General Geriatric Medicine 05/14/[address] [place] [address] documented as of this encounter
--- OUTSIDE RECORDS SUMMARY | 2022-01-28 01:19 | XMS_ITS | Encounter Summary ---
:1945 Author Organization [facility] [place] [address] Care Team Providers Name Role Phone Jessie Bose APRN Primary Care Provider Reason for Referral Consultation (Routine) - Closed Specialty Diagnoses / Procedures Referred By Contact Refer red To Contact Sleep Center Diagnoses RJ (obstructive sleep apnea) Rian Richards MD [facility] Sleep Medicine [facility] D r [address] [place] [address] [place] [address] Referral ID Status Reason Start Date Expiration Date Visits V isits Requested Authorized [id number] Closed Consult, 11/22/2020 11/22/2021 1 1 Test & Treat Encounter Details Date Type Department Care Team Description 11/22/2020 Office Visit Cardiology [place] [facility] [place] Rian Richards Coronary artery disease invo lving platinum coronary artery of platinum heart without angina pectoris; [facility] MD Ilan RJ (obstructive sleep apnea); [facility] [place] [address] Cardiology [phone] [place], [place] [address] Social History Tobacco Use Types [...] Sign Reading Time Taken Comments Blood Pressure 167/68 11/22/2020 9:51 AM EDT Pulse 44 11/22/2020 9:51 AM EDT Temperature - - Respiratory Rate - - Oxygen Saturation 98% 11/22/2020 9:51 AM EDT Inhaled Oxygen Concentration - - Weight 97.5 kg (215 lb) 11/22/2020 9:51 AM EDT Height 175.3 cm (5' 9) 11/22/2020 9:51 AM EDT Body Mass Index 31.75 11/22/2020 9:51 AM EDT documented in this encounter Patient Instructions Patient InstructionsDaRian dave MD - 11/22/2020 10:20 AM EDT Start spironolactone 12.5 mg daily Stop Potassium supplement Check a BMP in 1 week with PCP F/u with Sleep Medicine documented in this encounter Progress Notes Rian Richards MD - 11/22/2020 10:20 AM EDT Images from the original note were not included. [facility] [place] [address] [address] Cardiology Clinic Note CC: CAD Patient Name: Corona Romo HPI: Corona Romo is a 75 y.o. 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 Last seen in May 2020. Concerned about BP today. Here with his . Getting very high values with SBP readings in the 180-200s at times. Typically getting SBP in the 150s. Takes BP prior to taking AM meds on most days despite discussing this at our last visit. Having trouble with their pharmacy; has been off lasix for 2 weeks. Denies any new cardiac symptoms. Feeling well in general. Still able to be active. No change in exertional capacity or symptoms. Still able to shovel his driveway by hand in the snow; driveway is 100 yards long. Denies any exertional symptoms. 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 carvediloL (COREG) 3.125 mg, Oral, 2 TIMES DAILY WITH MEALS ??? cholecalciferol (Vitamin D3) (CHOLECALCIFEROL (VITAMIN D3)) 2,000 Units, Oral, DAILY ??? doxazosin (CARDURA) 4 mg, Oral, DAILY ??? finasteride (PROSCAR) 5 mg Tablet DAILY ??? furosemide (LASIX) 40 mg, Oral, 2 TIMES DAILY, Please ask patient to call potato chip maker's office for appt.before further refills-he is overdue ??? losartan (COZAAR) 100 mg, DAILY ??? metFORMIN (GLUCOPHAGE) 1,000 mg, 2 TIMES DAILY WITH MEALS ??? nitroGLYcerin (NITROSTAT) 0.3 mg, Sublingual, EVERY 5 MIN PRN ??? penicillin v potassium (VEETID) 500 mg tablet 500mg, PO, BID ??? potassium chloride (K-DUR/KLOR-CON) 20 mEq extended release tablet 20 mEq, 2 TIMES DAILY ??? triamcinolone (KENALOG) 0.1 % Cream [...] Social Determinants of Health Financial Resource Strain: ??? Difficulty of Paying Living Expenses: Food Insecurity: ??? Worried About Running Out of Food in the Last Year: ??? Ran Out of Food in the Last Year: Transportation Needs: ??? Lack of Transportation (Medical): ??? Lack of Transportation (Non-Medical): Physical Activity: ??? Days of Exercise per Week: ??? Minutes of Exercise per Session: Stress: ??? Feeling of Stress : Social Connections: ??? Frequency of Communication with Friends and Family: ??? Frequency of Social Gatherings with Friends and Family: ??? Attends Gnosticist Services: ??? Active Member of Clubs or Organizations: ??? Attends Club or Organization Meetings: ??? Marital Status: Intimate Partner Violence: ??? Fear of Current or Ex-Partner: ??? Emotionally Abused: ??? Physically Abused: ??? Sexually Abused: 24 HR Review of Systems: Constitutional: No [...] Temperature Temp: -- Heart Rate Heart Rate: (!) 44 Heart Rate: [44] Blood Pressure BP: 167/68 BP: (167)/(68) Respiratory Rate Resp: -- SpO2 SpO2: 98 % SpO2: [98 %] Repeat manual BP by me: 128/64 mmHg Examination: CONST: Pleasant, Well-appearing NEURO: Oriented x3; [...] (last cath at that time). He is here today for follow-up of his blood pressure, which has been poorly controlled at home. Reports systolic readings as high as 180-200 mmHg routinely. Avg is estimated to be in the 150-160 mmHg range. Currently off lasix due to an issue at their pharmacy; will resume lasixand add cynthia 12.5 mg daily. Considered increasing Coreg but HR was in the 40s today. Will continue to follow closely; he will call office in 2 weeks with BP data. PLAN: # Hypertension, resistant not ideally controlled - continue carvedilol 3.125 mg BID, amlodipine 10 mg daily, losartan 100 mg daily , and lasix 40 mg BID - resume lasix; has been off for 2 weeks - add spironolactone 12.5 mg daily; stop KCL supplement - reinforced checking BP after AM meds - Not using CPAP; needs to treat RJ; referral back to sleep med # ASCVD, chronic, stable - No chest pain - 2018 stress test w/out ischemia or scar ?? # Lipid disorder - continue atorvastatin 80mg daily ?? # RJ (obstructive sleep apnea) - not using his CPAP machine - c/o daytime fatigue, frequent napping, and loud snoring - referral back to sleep medicine to discuss alternate masks, options, etc ?? # Sinus node dysfunction - sinus bradycardia improved with holding of nebivolol (bblocker) - HR in 40s today; sinus bradycardia w/ HR: 45 bpm today - no presyncope / syncope currently ?? # Diabetes mellitus Rian Richards MD, FACP, FACC Section of Cardiovascular Medicine [facility] General Dentistcyber ops planner [facility] documented in this encounter Plan of Treatment Upcoming Encounters Date Type Specialty Care Team Description 03/12/2022 Appointment Cardiology Diane Garcia, MIDDLE SCHOOL COACH [facility] ER DR CARDIOLOGY [place], [place] [address] (Wo rk) Scheduled Referrals Name Type Priority Associated Diagnoses Order S chedule Referral to Sleep Outpatient Referral Routine RJ (obstructive Ordered: Disorders Center sleep apnea) 11/22/2020 documented as of this encounter Procedures Procedure Name Priority Date/Time Associated Diagnosis Comme nts EKG 12-LEAD Routine 11/22/2020 9:59 AM Coronary artery Result s for this EDT disease involving procedure are in the platinum coronary results sect ion. artery of platinum heart without angina pectoris documented in this encounter Results EKG 12 Lead (11/22/2020 9:59 AM EDT) Component Value Ref Range Test Analysis Performed Pathologis t Method Time At Signature Ventricular rate 45 BPM MUSE SYSTEM Atrial Rate 45 BPM MUSE SYSTEM P-R Interval 152 ms MUSE SYSTEM QRS Duration 98 ms MUSE SYSTEM Q-T Interval 462 ms MUSE SYSTEM QTC Calculated 399 ms MUSE SYSTEM (Bezet) Calculated P [place] 78 degrees MUSE SYSTEM Calculated R [place] -28 degrees MUSE SYSTEM Calculated T [place] 49 degrees MUSE SYSTEM INTERPRETATION Marked sinus bradycardia with marked sinus arrhythmia MUSE SYSTEM Abnormal ECG When compared with ECG of 14-MAY-2020 14:36, No significant change was found Confirmed by MD Wyatt Daniel ([id number]) on 11/22/2020 5:38:27 PM Specimen Anatomical Collection Method Collection Time Receive d Time (Source) Location / / Volume Laterality 11/22/2020 9:59 AM 5:38 EDT PM EDT Rian Richards MD ECG ORDERABLES Performing Organization Address City/State/ZIP Code Phon e Number MUSE SYSTEM documented in this encounter Visit Diagnoses Diagnosis Coronary artery disease involving platinum coronary artery of platinum heart without angina pectoris RJ (obstructive sleep apnea) Obstructive sleep apnea (adult) (pediatr ic) Essential hypertension Unspecified essential hypertension documented in this encounter Care Teams Cook Candy Relationship Specialty Start Date End Date Jessie Bose APRN PCP - General Geriatric Medicine 05/14/[address] [place] [place] [address] documented as of this encounter
--- OUTSIDE RECORDS SUMMARY | 2022-01-28 01:19 | XMS_ITS | Encounter Summary ---
:1945 Author Organization [facility] [place] [address] Care Team Providers Name Role Phone Satnam Barnes MD Primary Care Provider Encounter Details Date Type Department Care Team Description 09/20/2016 Hospital Encounter Radiology Library at [place], Adolfo Chirinos, Karen [facility] [place] [facility] [place] [address] ORTHOPAEDIC SURGERY [phone] [place] [id number] (Wo rk) Social History Tobacco Use Types [...] (SYMBICORT) 160-4.5 lungs. mcg/actuation HFA Aerosol Inhaler atorvastatin (LIPITOR) 80 Take 1 tablet by [...] Garcia APRN [facility] [place], [place] [address] (Wo rk) documented as of this encounter Procedures Procedure Name Priority Date/Time Associated Diagnosis Comme nts FILM LIBRARY Routine 09/20/2016 12:00 AM Pain Results for this STORAGE ONLY DX EST procedure ar e in KNEE the results section. documented in this encounter Results Film Library- Storage Only DX Knee (09/20/2016 12:00 AM EST) Specimen (Source) Anatomical Location Collection Method / Collectio n Time Received Time / Laterality Volume Narrative [facility] - 09/22/2016 11:45 AM EDT This exam is for storage only and is aut o-finalizing. Chandra Del Rosario MD Rashid FILM LIBRARY ORDERABLES Performing Organization Address City/State/ZIP Code Phon e Number [facility] [place], [place] documented in this encounter Visit Diagnoses Diagnosis Pain Generalized pain documented in this encounter Care Teams Career Development Counselor Relationship Specialty Start Date End Date Satnam Barnes MD PCP - General 02/07/15 07/11/19 documented as of this encounter
--- OUTSIDE RECORDS SUMMARY | 2022-01-28 01:19 | XMS_ITS | Encounter Summary ---
:1945 Author Organization [facility] [place] [address] Care Team Providers Name Role Phone Unknown Primary Care Provider Unavailable Encounter Details Date Type Department Care Team Description 03/20/2020 Orders Only Cardiology at [facility] [place] Lisbeth Quiroga Sinus node dysfunction [facility] [place] [address] Social History Tobacco Use Types Packs/Day Years [...] Team Description 03/12/2022 Appointment Cardiology Diane Garcia, RECORDER GRAVITY PROSPECTING [facility] [address] [place], [place] [address] (Wo rk) documented as of this encounter Results EKG 12 Lead (05/14/2020 2:36 PM EST) Component Value Ref Range Test Analysis Performed Pathologis t Method Time At Signature Ventricular rate 64 BPM MUSE SYSTEM Atrial Rate 64 BPM MUSE SYSTEM P-R Interval 166 ms MUSE SYSTEM QRS Duration 96 ms MUSE SYSTEM Q-T Interval 410 ms MUSE SYSTEM QTC Calculated 422 ms MUSE SYSTEM (Bezet) Calculated R [place]acon -7 degrees MUSE SYSTEM Calculated T Beacon 53 degrees MUSE SYSTEM INTERPRETATION Normal sinus [...] Diagnosis Sinus node dysfunction Sinoatrial node dysfunction documented in this encounter Care Teams Medical Office Assistant Relationship Specialty Start Date End Date Unknown PCP - General 07/12/19 05/13/20 None documented as of this encounter
--- OUTSIDE RECORDS SUMMARY | 2022-01-28 01:19 | XMS_ITS | Encounter Summary ---
:1945 Author Organization [facility] [place] [address] Care Team Providers Name Role Phone Satnam Barnes MD Primary Care Provider Encounter Details Date Type Department Care Team Description 09/22/2016 Telephone [place] [facility] [place] Watson, [place] [address] Social History Tobacco Use Types Packs/Day [...] this encounter Miscellaneous Notes Telephone Encounter - Katia Argueta - 09/22/2016 12:43 PM EDT Patient scheduled Telephone Encounter - Shady Watson RN - 09/22/2016 11:09 AM EDT Name:Corona Romo Contacted via:Learning Needs Assessment done within 12 months (no change identified): No Patient question: Recent fall resulting in ED visit Orthopaedic history: has a past surgical history that includes Total Knee Arthroplasty (06795) (12/11/2013). Last appointment: 11/18/15 Future appointment: Visit date not found Background information: Fall occurred last week. Taken to ED on Wednesday for concern regarding insidious ecchymosis. No continued pain, mild swelling persists, is able to bear weight. Near time for yearly check for both knees. Plan/Outcome: ?? Order placed for left knee imaging. ?? Routed to scheduling team for appointment. ?? Patient will have images from 09/21 ED appointment will be pushed for review. Pt instructed to contact staff for further questions or concerns. Pt agrees with plan. documented in this encounter Plan of Treatment Upcoming Encounters Date Type Specialty Care Team Description 03/12/2022 Appointment Cardiology Diane Garcia APRN [facility] ER DR CARDIOLOGY [place], [place] [address] (Wo rk) documented as of this encounter Results XR Knee 1-2 Views Left (Generic) (10/07/2016 11:40 AM EDT) Anatomical Region Laterality Modality Knee Left Digital Radiography Specimen (Source) Anatomical Location Collection Method / Collectio n Time Received Time / Laterality Volume Impressions 10/07/2016 11:47 AM EDT No complication or change involving the prosthesis. Narrative 10/07/2016 11:47 AM EDT EXAMINATION: XR KNEE 1-2 VIEWS LEFT (GENERIC) CLINICAL HISTORY: total knee arthroplast ies with no hardware complications. TECHNIQUE: AP and lateral of left knee COMPARISON: November 18, 2015 FINDINGS: A total left knee prosthesis is present. The prosthesis is well-positioned without periprosthetic lucency or fractu re. There is no change in its appearance since the prior examination. A bony exos tosis in the femur projecting just above the prosthetic component anteriorly is u nchanged. Procedure Note Nikunj Kidd MD - 10/07/2016 EXAMINATION: XR KNEE 1-2 VIEWS LEFT (GEN SAMI) CLINICAL HISTORY: total knee arthroplast ies with no hardware complications. TECHNIQUE: AP and lateral of left knee COMPARISON: November 18, 2015 FINDINGS: A total left knee prosthesis is present. The prosthesis is well-positioned without periprosthetic lucency or fractu re. There is no change in its appearance since the prior examination. A bony exos tosis in the femur projecting just above the prosthetic component anteriorly is u nchanged. IMPRESSION No complication or change involving the prosthesis. Chandra Del Rosario MD IMG DX ORDERABLES documented in this encounter Visit Diagnoses Diagnosis History of total knee arthroplasty, left History of total knee arthroplasty, left documented in this encounter Care Teams Shredding Machine Knife Changer Relationship Specialty Start Date End Date Satnam Barnes MD PCP - General 02/07/15 07/11/19 documented as of this encounter
--- OUTSIDE RECORDS SUMMARY | 2022-01-28 01:19 | XMS_ITS | Encounter Summary ---
:1945 Author Organization [facility] [place] [address] Care Team Providers Name Role Phone Satnam Barnes MD Primary Care Provider Encounter Details Date Type Department Care Team Description 03/15/2018 Office [address] [place] [facility] Acevedo, Coronary artery disease invo lving shoshone-bannock coronary artery of shoshone-bannock heart without angina pectoris; [facility] Essential hypertension; [facility] Lipid disorder; [place], [place] RJ (obstructive sleep apnea); [id number] [place] [address] Sinus node dysfunction [phone] Social History Tobacco Use Types Packs/Day Years [...] Sign Reading Time Taken Comments Blood Pressure 132/56 03/15/2018 2:06 PM EDT Pulse 66 03/15/2018 2:06 PM EDT Temperature - - Respiratory Rate - - Oxygen Saturation 98% 03/15/2018 2:06 PM EDT Inhaled Oxygen Concentration - - Weight 107 kg (236 lb) 03/15/2018 2:06 PM EDT heavy chester es Height 175.3 cm (5' 9) 03/15/2018 2:06 PM EDT Body Mass Index 34.85 03/15/2018 2:06 PM EDT documented in this encounter Progress Notes Alton Acevedo MD - 03/15/2018 2:00 PM EDT Images from the original note were not included. [facility] [place] [address] [id number] CARDIOLOGY OUTPATIENT NOTE PRIMARY CARE PROVIDER: Satnam Barnes MD REFERRING PROVIDER: Satnam Barnes PROBLEM LIST: Patient Active Problem List Diagnosis ??? Diabetes mellitus ??? Sinus node dysfunction 5 second sinus pause noted prior to stress test on 2017, while on nebivolol. ??? Obesity ??? 12/11/2013 [...] Outpatient Prescriptions Medication Sig Dispense Refill ??? cholecalciferol, Vitamin D3, (CHOLECALCIFEROL, VITAMIN D3,) 2,000 unit Capsule Take 2,000 Units by mouth daily. ??? amLODIPine (NORVASC) 10 mg Tablet Take 1 tablet by mouth daily. 90 tablet 3 ??? furosemide (LASIX) 40 mg Tablet Take 1 tablet by mouth 2 times daily. 180 tablet 3 ??? nitroGLYcerin (NITROSTAT) 0.3 mg [...] daily. 0 ??? losartan (COZAAR) 100 mg tablet Take [...] BID (Patient taking differently: 2 times Daily) ??? aspirin 81 mg Tablet, Delayed Release (E.C.) Take 1 tablet by mouth daily. 30 tablet 3 No current facility-administered medications for this visit. Subjective: Patient ID: Corona Romo is a 73 y.o. male. HPI Corona Romo??is a 73 y.o.??male. ??He has a history of hypertension, hyperlipidemia, obesity, DM2 on oral medications, RJ on CPAP and ASCVD with one vessel disease (Diag) managed medically afterremote NSTEMI in 1998 (last cath at that time). ? At the time of his last visit in December, the following issues were addressed: Hypertension BP continues to be elevated and needs to be further addressed. For now, will increase amlodipine to 10 mg daily. In addition, will increase Lasix to 40 mg BID for hypertension and volume control. I stressed again a low salt diet and frequent BP monitoring. He/ understand. I have asked him to book a PCP appt for January for BP check and lab work. ?? CAD (coronary artery disease) No chest pain. Recent stress test w/out ischemia or scar. Continue with medical therapies. ?? Lipid disorder Continue atorvastatin 80mg. ?? RJ (obstructive sleep apnea) He has a diagnosis of RJ and has a sleep mask (but does not use it). I suggested that he use it andf/u with sleep doctors. ?? Sinus node dysfunction Sinus bradycardia improved with holding of nebivolol (bblocker). No presyncope / syncope. Continue to monitor and remain off bblocker therapy. ?? Diabetes mellitus Monitored at home and with PCP. Continues with metformin. Since his last visit, Mr. Romo has been stable. He occasionally skips his medications due to beingbusy. No chest pain, pressure. He remains active, physically, including mowing, raking. BP has improved since altering his medical therapies. Dizziness upon standing up quickly; no other dizziness; no syncope. Review of Systems Constitutional: Negative. Respiratory: Negative. Cardiovascular: Negative. Gastrointestinal: Positive for diarrhea. Endocrine: Negative. Genitourinary: Positive for frequency. Neurological: Positive for dizziness. Hematological: Negative. Family history: ??Both parents . ??Mother with ASCVD/NM. ??Brother with ASCVD/NM. ? Social history: ??Presents with his . ??They like to lutz together. ??[place]. Acknowledge that they could work on diet. Never smoker. ??No alcohol or illicits. Lives in [facility]. Objective: Physical Exam Constitutional: He is oriented to person, place, and time. He appears well- developed and well-nourished. He is overweight. HENT: Head: Normocephalic and atraumatic. Neck: No JVD present. Carotids 2+ Cardiovascular: Normal rate, regular rhythm, normal heart sounds and intact distal pulses. No murmur heard. Pulmonary/Chest: Effort normal and breath sounds normal. Abdominal: Soft. Bowel sounds are normal. Musculoskeletal: He exhibits edema. He exhibits no tenderness. Neurological: He is alert and oriented to person, place, and time. Skin: Skin is warm and dry. Most Recent Vitals: 03/15/18 1406 BP: 132/56 Pulse: 66 SpO2: 98% No results found for this or any previous visit (from the past 72 hour(s)). ???Zio Patch?Ambulatory Cardiac Event Monitor Report Study Dates: 11/16/17 - 11/30/17 Analysis Time: 13 days and 22 hours Summary Data Predominant rhythm??:??sinus rhythm , Range 54-110 BPM , Average rate 69 BPM. Eight (8)sinus pauses occurred, the longest lasting 4.9 secs.The longest appeared to be secondary tosinus exit block (the pause being a multiple of the preceding P-P intervals). Other pauses shown forreview ended in an escape beat before resumption of sinus rhythm. ??All 8 pauses occurred on the 1stday of monitoring 11/26/17, and were clustered around 11:55 AM and 6:50 PM. Atrial fibrillation / flutter: None Ectopic beats There were rare atrial premature beats, couplets and triplets.(<1% each) There were 3 runs of SVT/PAT the fastest lasting 4 beat reaching 152 BPM and the longest lasting 6 beats with an avg rate of 109 bpm. There were rare isolated ventricular premature beats and couplets (<1% each). There was one ventricular quadruplet averaging 128 BPM. ?? No higher??grade ectopy??was seen Triggered and Patient Diary Events There were 5 patient-triggered events which showed: sinus rhythm 65-78 BPM without ectopy, except for one atrial and one ventricular premature beat occurring AFTER the patient pressed the trigger. There were one single patient dairy entry reporting shortness of breath, lightheaded, chest pain/pressure: sinus rhythm 64 with a single atrial premature beat. ?? Study notable for sinus pauses / exit block with 3.0-4.2 second pauses on 11/16/17 only. Otherwise, rare generally lowgrade ambient ectopy only. Reported symptoms not associated with pauses and poorly correlated with ectopy. ?? EXAMINATION: NM PHARMACOLOGIC STRESS MYOCARDIAL PERFUSION, NM PHARMACOLOGIC STRESS CT COMPONENT December 2017 CLINICAL HISTORY: Exertional chest pressure/dyspnea in patient with known ASCVD TECHNIQUE: During rest, 8 mCi of technetium-99m sestamibi was administered intravenously. Approximately 20 minutes later, SPECT images of the heart were obtained with reconstruction in the short, vertical long and horizontal long axis. The patient then received regadenoson intravenously at a dose of 0.4 mg. 20 seconds later, 25.6 mCi of technetium-99m sestamibi was administered intravenously. Images of the heart were then again obtained with SPECT reconstruction. A low-dose CT scan was acquired for the purpose of attenuation correction. COMPARISON: None FINDINGS: No fixed or reversible perfusion defects are present. Functional analysis: Myocardial function: There is normal wall thickening and wall motion. Left ventricular ejection fraction: 68 % (normal greater than than 50%). Incidental CT findings: Coronary and aortic calcification. IMPRESSION 1. ??No ischemia or scar. ??Left ventricular function is normal. 2. ??Coronary and aortic calcification. ?? EKG: Normal sinus rhythm Normal ECG When compared with ECG of 08-SEP-2016 10:49, No significant change was found Confirmed by MD Maurice, Rian Warner ([id number]) on 12/02/2017 9:51:54 PM Assessment and Plan: CAD (coronary artery disease) No chest pain. Recent stress test w/out ischemia or scar. Continue with medical therapies. He can switch from 325 mg to to low dose aspirin. Diabetes mellitus Monitored at home and with PCP. Continues with metformin. Hypertension BP improved on medical therapies. I stressed again a low salt diet and frequent BP monitoring. He/ understand. He is due to see his PCP shortly. Lipid disorder Continue atorvastatin 80mg. RJ (obstructive sleep apnea) He has a diagnosis of RJ and has a sleep mask (but does not use it). I suggested that he use it andf/u with sleep doctors. Sinus node dysfunction Sinus bradycardia improved with holding of bblocker. No presyncope / syncope. Continue to monitor and remain off bblocker therapy. Thank you for the opportunity to participate in this patient's cardiovascular care. All questions were answered and I look forward to the next visit in 6 months. Alton Acevedo MD documented in this encounter Miscellaneous Notes Assessment & Plan Note - Alton Acevedo MD - 03/15/2018 2:21 PM EDTAssociated Problem(s): Sinus node dysfunction Sinus bradycardia improved with holding of bblocker. No presyncope / syncope. Continue to monitor and remain off bblocker therapy. Assessment & Plan Note - Alton Acevedo MD - 03/15/2018 2:21 PM EDTAssociated Problem(s): RJ (obstructive sleep apnea) He has a diagnosis of RJ and has a sleep mask (but does not use it). I suggested that he use it andf/u with sleep doctors. Assessment & Plan Note - Alton Acevedo MD - 03/15/2018 2:20 PM EDTAssociated Problem(s): Lipid disorder Continue atorvastatin 80mg. Assessment & Plan Note - Alton Acevedo MD - 03/15/2018 2:20 PM EDTAssociated Problem(s): Hypertension BP improved on medical therapies. I stressed again a low salt diet and frequent BP monitoring. He/ understand. He is due to see his PCP shortly. Assessment & Plan Note - Alton Acevedo MD - 03/15/2018 2:19 PM EDTAssociated Problem(s): Diabetes mellitus Monitored at home and with PCP. Continues with metformin. Assessment & Plan Note - Alton Acevedo MD - 03/15/2018 2:18 PM EDTAssociated Problem(s): CAD (coronary artery disease) No chest pain. Recent stress test w/out ischemia or scar. Continue with medical therapies. He can switch from 325 mg to to low dose aspirin. documented in this encounter Plan of Treatment Upcoming Encounters Date Type Specialty Care Team Description 03/12/2022 Appointment Cardiology Diane Garcia, BLENDING TANK HELPER [facility] [address] [place] [address] (Wo rk) documented as of this encounter Visit Diagnoses Diagnosis Coronary artery disease involving shoshone-bannock coronary artery of shoshone-bannock heart without angina pectoris Essential hypertension Unspecified essential hypertension Lipid disorder Unspecified disorder of lipoid metabolis m RJ (obstructive sleep apnea) Obstructive sleep apnea (adult) (pediatr ic) Sinus node dysfunction Sinoatrial node dysfunction documented in this encounter Care Teams Paper Ruler Relationship Specialty Start Date End Date Satnam Barnes MD PCP - General 02/07/15 07/11/19 documented as of this encounter
--- OUTSIDE RECORDS SUMMARY | 2022-01-28 01:19 | XMS_ITS | Encounter Summary ---
:1945 Author Organization [facility] Address [facility] [address] [place] [address] Care Team Providers Name Role Phone Satnam Barnes MD Primary Care Provider Encounter Details Date Type Department Care Team Description 09/20/2018 Orders Only Orthopaedics at [facility] [place] Chandra Del Rosario, Status post total right knee replacement; [facility] History of total knee arthroplasty, [place] [address] ORTHOPAEDIC SURGERY [place], [place] [address] Social History Tobacco Use Types [...] Team Description 03/12/2022 Appointment Cardiology Diane Garcia, LIBRARY CIRCULATION CLERK [facility] ER CARDIOLOGY [place], [place] [address] (Wo rk) documented as of [...] For questions regarding this report, please contact [facility] number below. 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
--- OUTSIDE RECORDS SUMMARY | 2022-01-28 01:19 | XMS_ITS | Encounter Summary ---
:1945 Author Organization [facility] [place] [address] Care Team Providers Name Role Phone Satnam Barnes MD Primary Care Provider Encounter Details Date Type Department Care Team Description 12/27/2017 Office Visit Cardiology at [facility] [place] Alton Acevedo, Essential hypertension; [facility] Coronary artery disease involving sitka coronary artery of sitka heart without angina pectoris; Drive [facility] Lipid disorder; [place], [place] Dr [place] (obstructive sleep apnea); [id number] [place] [address] Sinus node dysfunction [phone] Social History Tobacco Use Types Packs/Day Years [...] Sign Reading Time Taken Comments Blood Pressure 169/77 12/27/2017 1:37 PM EDT Pulse 70 12/27/2017 1:37 PM EDT Temperature - - Respiratory Rate - - Oxygen Saturation 98% 12/27/2017 1:31 PM EDT Inhaled Oxygen Concentration - - Weight 113.4 kg (250 lb) 12/27/2017 1:31 PM EDT Height 175.3 cm (5' 9) 12/27/2017 1:31 PM EDT Body Mass Index 36.92 12/27/2017 1:31 PM EDT documented in this encounter Progress Notes Alton Acevedo MD - 12/27/2017 1:40 PM EDT Images from the original note were not included. [facility] [place] [address] [address] CARDIOLOGY OUTPATIENT NOTE PRIMARY CARE PROVIDER: Satnam [...] Take 2,000 Units by mouth daily. ??? atorvastatin (LIPITOR) 80 mg Tablet Take 1 tablet by mouth daily. 0 ??? amoxicillin (AMOXIL) 500 mg Capsule Take 500 mg by mouth as needed. 0 ??? doxazosin (CARDURA) 4 mg Tablet Take 4 mg by mouth daily. 0 ??? aspirin 325 mg tablet Take 325 mg by mouth daily. ??? losartan (COZAAR) 100 mg tablet [...] mg by mouth 2 times daily. ??? penicillin v potassium (VEETID) 500 mg tablet 500mg, PO, BID (Patient taking differently: 2 times Daily) ??? amLODIPine (NORVASC) 10 mg Tablet Take 1 tablet by mouth daily. 90 tablet 3 ??? furosemide (LASIX) 40 mg Tablet Take 1 tablet by mouth 2 times daily. 180 tablet 3 ??? nitroGLYcerin (NITROSTAT) 0.3 mg Tablet, Sublingual Place 1 tablet under the tongue every 5 minutes as needed for Chest pain. 90 tablet 12 ??? albuterol (PROVENTIL HFA;VENTOLIN HFA) 90 mcg/Actuation inhaler Inhale 2 puffs into the lungs every 4 hours as needed. Use with spacer No current facility-administered medications for this visit. Subjective: Patient ID: Corona Romo is a 72 y.o. male. HPI Corona Romo is a 72 y.o. male. He has a history of hypertension, hyperlipidemia, obesity, DM2 on oral medications, RJ on CPAP and ASCVD with one vessel disease (Diag) managed medically after remote NSTEMI in 1998 (last cath at that time). He was last seen a few weeks ago and presents today for follow up. ?? At the time of his last visit, the following issues were addressed: Hypertension Currently poorly controlled today and at home by BP diary, particularly in the setting of discontinuing the nebivolol and amlodipine. He reports that the leg swelling has not improved significantly since stopping the amlodipine and was minimally bothersome to him so I do think it is an option to resume this. We discussed other treatment options including spironolactone, clonidine etc. I don't think carvedilol, diltiazem or verapamil are good options given his issues with bradycardia and sinus pauses. His losartan is at maximal dosing. He prefers to trial amlodipine again- we start at a decreased dose of 5mg. They will monitor his blood pressures carefully for the next few weeks and continue the BP diary. ?? CAD (coronary artery disease) Patient with stable disease for many years but slowly increasing symptoms of dyspnea and chest pressure with exertion over the last couple of years. Progression has been slow with no step ups and no rest symptoms. We plan for a stress test but will hold completing until the Ziopatch results. Given the difficult of scheduling at times, we will reschedule this now for completion in 4 weeks, and I will call to cancel if any issues with the Ziopatch, I discussed at length with the patient and his precautions for calling us or 911. He will continue with ASA, atorvastatin and losartan. He is now offa beta-eyal due to sinus node dysfunction. He has NTG SL prescribed from his last visit. ?? Lipid disorder Continue atorvastatin 80mg. ?? Sinus node dysfunction Sinus bradycardia improved with holding of nebivolol. Results of the Ziopatch are still pending but I will follow up and discuss further with the patient when the results are available. I will add nebivolol to his adverse drug reaction list. ?? Since the last visit, Mr. Romo has felt fine from a cardiovascular standpoint. He tripped a few times and hurt his left arm; no dizziness, syncope. No chest discomfort. Breathing is difficult in humid times; it's fine during good weather. No PND/orthopnea. He has mild LE edema. He takes 20 mg of Lasixtwice daily; he used to take 80 mg Lasix twice daily. He eats quite a bit of salt. His weight is relatively stable these days. ?? Review of Systems Constitutional: Negative. Respiratory: Positive for shortness of breath. Cardiovascular: Positive for leg swelling. Gastrointestinal: Negative. Endocrine: Negative. Genitourinary: Negative. Neurological: Negative. Hematological: Negative. Family history: Both parents . Mother with ASCVD/MT. Brother with ASCVD/MT. ?? Social history: Presents with his . They like to lutz together. They walk together in good weather. Acknowledge that they could work on diet. Never smoker. No alcohol or illicits. Lives in [facility]. Objective: Physical Exam Constitutional: He is oriented to person, place, and time. He appears well- developed and well-nourished. HENT: Head: Normocephalic and atraumatic. Neck: No [...] is warm and dry. Most Recent Vitals: 12/27/17 1337 BP: 169/77 Pulse: 70 SpO2: No results found for this or any previous visit (from the past 72 hour(s)). ???Zio Patch??? Ambulatory Cardiac Event Monitor Report Study Dates: 11/16/17 - 11/30/17 Analysis Time: 13 days and 22 hours Summary Data Predominant rhythm : sinus rhythm , Range 54-110 BPM , Average rate 69 BPM. Eight (8)sinus pauses occurred, the longest lasting 4.9 secs.The longest appeared to be secondary tosinus exit block (the pause being a multiple of the preceding P-P intervals). Other pauses shown forreview ended in an escape beat before resumption of sinus rhythm. All 8 pauses occurred on the 1st day of monitoring 11/26/17, and were clustered around [...] was one ventricular quadruplet averaging 128 BPM. No higher grade ectopy was seen Triggered and Patient Diary Events There were 5 patient-triggered events which showed: sinus rhythm 65-78 BPM without ectopy, except for one atrial and one ventricular premature beat occurring AFTER the patient pressed the trigger. There were one single patient dairy entry reporting shortness of breath, lightheaded, chest pain/pressure: sinus rhythm 64 with a single atrial premature beat. Study notable for sinus pauses / exit block with 3.0-4.2 second pauses on 11/16/17 only. Otherwise, rare generally lowgrade ambient ectopy only. Reported symptoms not associated with pauses and poorly correlated with ectopy. EXAMINATION: NM PHARMACOLOGIC STRESS MYOCARDIAL PERFUSION, NM [...] findings: Coronary and aortic calcification. IMPRESSION 1. No ischemia or scar. Left ventricular function is normal. 2. Coronary and aortic calcification. EKG: Normal sinus rhythm Normal ECG When compared with ECG of 08-SEP-2016 10:49, No significant change was found Confirmed by MD Richards Gregory A. ([id number]) on 12/02/2017 9:51:54 PM Assessment and Plan: Hypertension BP continues to be elevated and [...] January for BP check and lab work. CAD (coronary artery disease) No chest pain. Recent stress test w/out ischemia or scar. Continue with medical therapies. Lipid disorder Continue atorvastatin 80mg. RJ (obstructive sleep apnea) He has a diagnosis of RJ and has a sleep mask (but does not use it). I suggested that he use it andf/u with sleep doctors. Sinus node dysfunction Sinus bradycardia improved with holding of nebivolol (bblocker). No presyncope / syncope. Continue to monitor and remain off bblocker therapy. Diabetes mellitus Monitored at home and with PCP. Continues with metformin. Thank you for the opportunity to participate in this patient's cardiovascular care. All questions were answered and I look forward to the next visit in 3 months (he will see PCP in <1 mth for BP / lab check). Alton Acevedo MD documented in this encounter Miscellaneous Notes Assessment & Plan Note - Alton Acevedo MD - 12/27/2017 2:12 PM EDTAssociated Problem(s): Diabetes mellitus Monitored at home and with PCP. Continues with metformin. Assessment & Plan Note - Alton Acevedo MD - 12/27/2017 2:05 PM EDTAssociated Problem(s): Sinus node dysfunction Sinus bradycardia improved with holding of nebivolol (bblocker). No presyncope / syncope. Continue to monitor and remain off bblocker therapy. Assessment & Plan Note - Alton Acevedo MD - 12/27/2017 2:05 PM EDTAssociated Problem(s): RJ (obstructive sleep apnea) He has a diagnosis of RJ and has a sleep mask (but does not use it). I suggested that he use it andf/u with sleep doctors. Assessment & Plan Note - Alton Acevedo MD - 12/27/2017 2:04 PM EDTAssociated Problem(s): Lipid disorder Continue atorvastatin 80mg. Assessment & Plan Note - Alton Acevedo MD - 12/27/2017 2:04 PM EDTAssociated Problem(s): CAD (coronary artery disease) No chest pain. Recent stress test w/out ischemia or scar. Continue with medical therapies. Assessment & Plan Note - Alton Acevedo MD - 12/27/2017 2:02 PM EDTAssociated Problem(s): Hypertension BP continues to be elevated and [...] January for BP check and lab work. documented in this encounter Plan of Treatment Upcoming Encounters Date Type Specialty Care Team Description 03/12/2022 Appointment Cardiology Diane Garcia, BIOSTATISTICIAN [facility] DR CARDIOLOGY [place], [place] [address] (Wo rk) documented as of this encounter Visit Diagnoses Diagnosis Essential hypertension Unspecified essential hypertension Coronary artery disease involving sitka coronary artery of sitka heart without angina pectoris Lipid disorder Unspecified disorder of lipoid metabolis m RJ (obstructive sleep apnea) Obstructive sleep apnea (adult) (pediatr ic) Sinus node dysfunction Sinoatrial node dysfunction documented in this encounter Care Teams Sand Plant Attendant Relationship Specialty Start Date End Date Satnam Barnes MD PCP - General 02/07/15 07/11/19 documented as of this encounter
--- OUTSIDE RECORDS SUMMARY | 2022-01-28 01:19 | XMS_ITS | Encounter Summary ---
:1945 Author Organization [facility] [place] [address] Care Team Providers Name Role Phone Satnam Barnes MD Primary Care Provider Reason for Visit Reason Comments Aftercare Of Tjr RT TKA 12/11/13 & LT TKA 32/0 6 S/P Fall 09/09/16 Encounter Details Date Type Department Care Team Description 10/07/2016 Office [place] [facility] [place] Del Rosario Status post total right knee replacement; [facility] MD Taran History of total knee arthroplasty, [place] [address]ENTER [phone] ORTHOPAEDIC SURGERY [place], [place] [address] Social History Tobacco Use Types [...] Sign Reading Time Taken Comments Blood Pressure 132/50 10/07/2016 1:58 PM EDT Pulse 57 10/07/2016 1:58 PM EDT Temperature - - Respiratory Rate - - Oxygen Saturation - - Inhaled Oxygen Concentration - - Weight 106.6 kg (235 lb) 10/07/2016 1:58 PM EDT stated Height 175.3 cm (5' 9) 10/07/2016 1:58 PM EDT stated Body Mass Index 34.7 10/07/2016 1:58 PM EDT documented in this encounter Progress Notes Dior Echeverria PA - 10/07/2016 1:40 PM EDT PATIENT NAME: Corona Romo AGE: 71 y.o. MR#: [id number] DATE OF VISIT: 10/07/2016 HISTORY OF PRESENT ILLNESS Mr. Romo a 71 y.o. year old male s/p left TKA on 09/10/05 and right TKA on 12/11/13, both done by Dr. Del Rosario. He comes into clinic today for regular follow up, and notes that he took a bad fall at the beginning of September. He was outside walking down hill when he slipped on ice and landed on his right knee. He had immediate pain and swelling in the right knee, and developed ecchymosis over the knee as well. He went to the ED after the fall and had X-rays done there in [facility]. Since the fall his swelling has decreased a lot and his pain has completely resolved. His left knee is doing very well and he has no pain or complaints regarding it. Prior to this fall he had no pain or pro blems with the right knee. He is ambulating without any assistive devices and has no pain at all today. ROS: Negative for fever, chills, SOB, chest pain, nausea, vomiting, and diarrhea. Patient's medications, allergies, past medical, surgical, social and family histories were reviewed and updated as appropriate. Current Outpatient Prescriptions on File Prior to Visit Medication Sig Dispense Refill ??? nebivolol (BYSTOLIC) [...] 2 times Daily) No current facility-administered medications on file prior to visit. Physical Exam Blood pressure 132/50, pulse 57, height 175.3 cm (5' 9), weight (!) 106.6 kg (235 lb). Constitutional: oriented to person, place, and time and well-developed, well- nourished, and in no distress. Skin: Skin is warm and dry. Left Knee Exam: No effusion. ROM 120 deg flexion, 0 deg extension. No TTP. Stable to varus/valgus stress. Able to do a straight leg raise without lag. Normal sensation and motor function distally. DP/PT pulses 2+. Right Knee Exam: Some swelling and redness throughout lower leg. No joint effusion or redness. ROM 120 deg flexion, 0 deg extension. No TTP. Stable to varus/valgus stress. Able to do a straight leg raise without lag. Normal sensation and motor function distally. DP/PT pulses 2+. RADIOLOGICAL STUDIES: X-rays taken today of the left knee show no change in previous implant with good alignment, no evidence of loosening. X-rays from [facility] of the right knee show a small amount of lucency along the femoral component on lateral views. ASSESSMENT/PLAN: Corona Romo is a 71 y.o. male who presents to the clinic 11 years s/p left TKA and 3 years s/p right TKA. His exam findings are reassuring and his knee feels stable and is no longer symptomatic. He should wear his DINAH stockings to help with his swelling and redness in the legs, which has been a chronic issue for him in the past. He should follow up in another year with right knee X-rays. documented in this encounter Plan of Treatment Upcoming Encounters Date Type Specialty Care Team Description 03/12/2022 Appointment Cardiology Diane Garcia, SLICE CUTTING MACHINE OPERATOR HELPER [facility] CARDIOLOGY [place], [place] [address] (Wo rk) documented as of this encounter Visit Diagnoses Diagnosis Status post total right knee replacement History of total knee arthroplasty, left documented in this encounter Care Teams Imcu Nurse Relationship Specialty Start Date End Date Satnam Barnes MD PCP - General 02/07/15 07/11/19 documented as of this encounter
--- OUTSIDE RECORDS SUMMARY | 2022-01-28 01:19 | XMS_ITS | Encounter Summary ---
:1945 Author Organization [facility] [place] [address] Care Team Providers Name Role Phone Satnam Barnes MD Primary Care Provider Reason for Visit Diagnostic Test (Routine) - Closed Specialty Diagnoses / Procedures Referred By Contact Refer red To Contact Radiology Diagnoses Coronary artery disease with exertional angina Alfreda Benitez MD [facility] Rad Nuclear Med Procedures NM Myocardial Perfusion Rest NM Pharmacologic Stress Myocardial Perfusion [facility] [place] [address] [place] [address] Fax: Referral ID Status Reason Start Date Expiration Date Visits V isits Requested Authorized [id number] Closed Specialty 11/11/2017 11/11/2018 2 2 Service Requested Encounter Details Date Type Department Care Team Description 11/16/2017 [facility] [place] [address] [place] [address] [phone] Social History Tobacco Use Types Packs/Day Years [...] Team Description 03/12/2022 Appointment Cardiology Diane Garcia, BIOLOGY FACULTY [facility]BER [facility] [place] [address] (Wo rk) Pending Results Name Type Priority Associated Diagnoses Date/Ti fl NM Myocardial Perfusion Imaging Routine Coronary artery d isease 11/16/2017 8:38 AM EDT Rest with exertional angina documented as of this encounter Visit Diagnoses Not on filedocumented in this encounter Care Teams Weight Shifter Relationship Specialty Start Date End Date Satnam Barnes MD PCP - General 02/07/15 07/11/19 documented as of this encounter
--- OUTSIDE RECORDS SUMMARY | 2022-01-28 01:19 | XMS_ITS | Encounter Summary ---
:1945 Author Organization [place] [address] Care Team Providers Name Role Phone Satnam Barnes MD Primary Care Provider Reason for Referral Diagnostic Test (Routine) - Closed Specialty Diagnoses / Procedures Referred By Contact Refer red To Contact Radiology Diagnoses ASCVD (arteriosclerotic cardiovascular disease) Alfreda Benitez MD [facility] Rad Nuclear Med Procedures NM Pharmacologic Stress Myocardial Perfusion [facility] [address] [place], [place] [id number] [place] [phone] Fax: Referral ID Status Reason Start Date Expiration Date Visits V isits Requested Authorized [id number] Closed Specialty 12/02/2017 12/02/2018 1 1 Service Requested iagnostic Test (Routine) - Closed Specialty Diagnoses / Procedures Referred By Contact Refer red To Contact Radiology Diagnoses ASCVD (arteriosclerotic cardiovascular disease) Alfreda Benitez MD [facility] Rad Nuclear Med Procedures NM Pharmacologic Stress CT Component [facility] [place], [place] [id number] [place] [phone] Fax: Referral ID Status Reason Start Date Expiration Date Visits V isits Requested Authorized [id number] Closed Specialty 12/02/2017 12/02/2018 1 1 Service Requested Encounter Details Date Type Department Care Team Description 12/02/2017 Office Visit [place] [facility] [place], [facility] ASCVD (arteriosclerotic cardiovascular d isease); [facility]; [place], [place] Center Coronary artery disease involving catawba heart with angina pectoris, unspecified vessel or lesion type; [address] [place] [address] Lipid disorder; [phone] Sinus node dysf unction (Work) Social History Tobacco Use Types Packs/Day Years [...] Sign Reading Time Taken Comments Blood Pressure 158/74 12/02/2017 11:12 AM EDT Pulse 66 12/02/2017 11:12 AM EDT Temperature 36.6 ??C (97.8 ??F) 12/02/2017 11:12 AM EDT Respiratory Rate - - Oxygen Saturation 96% 12/02/2017 11:12 AM EDT Inhaled Oxygen Concentration - - Weight 113.9 kg (251 lb) 12/02/2017 11:12 AM EDT Height 175.3 cm (5' 9) 12/02/2017 11:12 AM EDT Body Mass Index 37.07 12/02/2017 11:12 AM EDT documented in this encounter Patient Instructions Patient InstructionsFlAlfreda bonilla MD - 12/02/2017 11:00 AM EDT - Stay off the nebivolol - Restart the amlodipine at 5mg. If you have problems with this, give us a call to consider a different medication - Continue to monitor your blood pressure and heart rate frequently - I will call you with the results of the Ziopatch and help re-arrange the stress test if safe to doso - We will see you back in about 4 weeks to follow up - Call if problems in the interim, especially if any symptoms are getting worse. If you have chest pain/pressure or severe shortness of breath at REST call 911. documented in this encounter Progress Notes Alfreda Benitez MD - 12/02/2017 11:00 AM EDT Images from the original note were not included. [facility] [place] [address] [place] [address] CARDIOLOGY OUTPATIENT NOTE PRIMARY CARE PROVIDER: Satnam Barnes MD REFERRING PROVIDER: Satnam Barnes PROBLEM LIST: Patient Active Problem List Diagnosis ??? Obesity ??? 12/11/2013 S/P Right total [...] Outpatient Prescriptions Medication Sig Dispense Refill ??? atorvastatin (LIPITOR) 80 mg Tablet Take 1 tablet by mouth daily. 0 ??? amoxicillin (AMOXIL) 500 mg Capsule Take 500 mg by mouth as needed. 0 ??? doxazosin (CARDURA) 4 mg Tablet Take 4 mg by mouth daily. 0 ??? furosemide [...] (Patient taking differently: 2 times Daily) ??? nitroGLYcerin (NITROSTAT) 0.3 mg Tablet, Sublingual [...] at that time). He was last seen three weeks ago and presents today for acute follow up. At the time of his last visit, the following issues were addressed: Hypertension Unclear control at this juncture, and [...] more detail. No medication changes for now. ?? CAD (coronary artery disease) Currently on good medical management with ASA, atorvastatin 80mg, nebivolol and losartan. However, current symptoms suggestive of slowly progressive exertional angina. He had a normal stress test in 2013 but I think it is reasonable to repeat at this time. We will obtain a NM MPI, if he can do the exercise portion that would be great but I ordered a pharmacologic because I am concerned he will not beable to reach a target heart rate. I prescribed for him NTG SL to use as needed. ?? Lipid disorder Continue atorvastatin 80mg. ?? Obesity Discussed diet with a goal of weight loss. In the interim: He presented for his stress test (Reg NM MPI) as planned but pre-stress EKG showed sinus pauses up to 5 seconds, therefore the stress test was cancelled. His beta-eyal was stopped. A Ziopatch was placed for ambulatory monitoring and close interval follow up arranged which is why he presents today. The Ziopatch has not yet resulted unfortunately. Today he reports: He is doing okay. He is having occasional breathing episodes with exertion, at least once associated with the chest discomfort he described at his prior visit. He has not had any worsening in his symptoms since we last talked and he continues to be without rest symptoms. No change overall from the last visit. They have been checking his blood pressures at home as requested at the last visit which have rangedfrom 129-182/69-92 but have overall been in the 140s-150s systolic. Heart rates have been 52-75 but predominantly in the 50s earlier this month and in the 60s later this month (after stopping the nebivolol). Of note, in addition to stopping the nebivolol, his amlodipine 10mg has been stopped by his PCP in the interim since his last visit. This was reportedly stopped due to leg swelling although the patient has not noticed a difference since stopping it and notes that the leg swelling has not been overly bothersome to him. He would be willing to try this again to avoid starting a new medication thatwould require increased monitoring (such as spironolactone). He occasionally gets dizziness/lightheadedness but this is only with positional changes and very transient. He has not lost consciousness or fallen as a result. Review of Systems Positive for fatigue, sleep disturbance, diarrhea, blurred vision, depressed mood (no SI), joint pain, frequent urination and as per the HPI. Otherwise 12 point ROS negative. Family history: Both parents . Mother with ASCVD/[place]. Brother with ASCVD/[place]. Social history: Presents with his . They like to lutz together. They walk together in good weather. Acknowledge that they could work on diet. Never smoker. No alcohol or illicits. Objective: Physical Exam Most Recent Vitals: 12/02/17 1112 BP: 158/74 Pulse: 66 Temp: 36.6 ??C (97.8 ??F) SpO2: 96% Pleasant obese elderly male in NAD NC/AT, sclera anicteric, EOMI Regular rhythm with borderline bradycardic rate, S1 and S2 noted, no M/G/R appreciated Respirations unlabored, Lungs CTAB Abd obese, benign Extremities WWP, 1+ non-pitting edema of BLE Alert and oriented. Face symmetric. Strength and sensation grossly intact. Recent Results (from the past 72 hour(s)) EKG 12 Lead Result Value Ventricular rate 62 Atrial Rate 62 P-R Interval 158 QRS Duration 98 Q-T Interval 402 QTC Calculated (Bezet) 408 Calculated P [place] 95 Calculated R [place] -26 Calculated T [place] 16 INTERPRETATION Normal sinus rhythm Normal ECG When compared with ECG of 08-SEP-2016 10:49, No significant change was found EKG (August 2016): Sinus bradycardia Otherwise normal [...] LVEF of 58%. Assessment and Plan: Hypertension Currently poorly controlled today and at [...] few weeks and continue the BP diary. CAD (coronary artery disease) Patient with stable [...] NTG SL prescribed from his last visit. Lipid disorder Continue atorvastatin 80mg. Sinus node dysfunction Sinus bradycardia improved with holding of nebivolol. Results of the Ziopatch are still pending but I will follow up and discuss further with the patient when the results are available. I will add nebivolol to his adverse drug reaction list. Return to clinic in 4 weeks coordinated with stress testing. I will call in the interim with the Ziopatch results. Thank you for the opportunity to participate in this patient's cardiovascular care. All questions were answered and I look forward to the next visit. Alfreda Benitez PGY-4, Cardiovascular Diseases Fellow [facility] Personal Pager #[phone] I have read the fellow's note, examined the patient, and reviewed related information. I agree with the management. Alton Acevedo MD documented in this encounter Miscellaneous Notes Assessment & Plan Note - Alfreda Benitez MD - 12/02/2017 1:17 PM EDTAssociated Problem(s): Sinus node dysfunction Sinus bradycardia improved with holding of nebivolol. Results of the Ziopatch are still pending but I will follow up and discuss further with the patient when the results are available. I will add nebivolol to his adverse drug reaction list. Assessment & Plan Note - Alfreda Benitez MD - 12/02/2017 1:15 PM EDTAssociated Problem(s): Lipid disorder Continue atorvastatin 80mg. Assessment & Plan Note - Alfreda Benitez MD - 12/02/2017 1:11 PM EDTAssociated Problem(s): CAD (coronary artery disease) Patient with stable [...] NTG SL prescribed from his last visit. Assessment & Plan Note - Alfreda Benitez MD - 12/02/2017 1:08 PM EDTAssociated Problem(s): Hypertension Currently poorly controlled today and at [...] few weeks and continue the BP diary. documented in this encounter Plan of Treatment Upcoming Encounters Date Type Specialty Care Team Description 03/12/2022 Appointment Cardiology Diane Garcia APRN [facility] [place] [address] (Wo rk) documented as of this encounter Procedures Procedure Name Priority Date/Time Associated Diagnosis Comme nts EKG 12-LEAD Routine 12/02/2017 11:20 AM Sinus arrest Results for this EDT procedure are i n the results section . documented in this encounter Results NM Pharmacologic [...] at 12/17/2017 5:18 PM Alton Acevedo MD [facility] NM ORDERABLES Nuclear Pharmacologic Stress Cardiology (12/17/2017 11:48 AM EDT) Specimen (Source) Anatomical Location Collection Method / Collectio n Time Received Time / Laterality Volume Narrative This result has an attachment that is no t available. Alton Acevedo MD CARDIAC SERVICES ORDERABLES NM Pharmacologic Stress Myocardial Perfusion (12/17/2017 [...] PM Alton Acevedo MD IMG NM ORDERABLES EKG 12 Lead (12/02/2017 11:20 AM EDT) Component Value Ref Range Test Analysis Performed Pathologis t Method Time At Signature Ventricular rate 62 BPM MUSE SYSTEM Atrial Rate 62 BPM MUSE SYSTEM P-R Interval 158 ms MUSE SYSTEM QRS Duration 98 ms MUSE SYSTEM Q-T Interval 402 ms MUSE SYSTEM QTC Calculated 408 ms MUSE SYSTEM (Bezet) Calculated P [place] 95 degrees MUSE SYSTEM Calculated R [place] -26 degrees MUSE SYSTEM Calculated T [place] 16 degrees MUSE SYSTEM INTERPRETATION Normal sinus rhythm MUSE SYSTEM Normal ECG When compared with ECG of 08-SEP-2016 10:49, No significant change was found Confirmed by MD Maurice, Rian Warner ([id number]) on 12/02/2017 9 :51:54 PM Specimen Anatomical Collection Method Collection Time Receive d Time (Source) Location / / Volume Laterality 12/02/2017 11:20 12/02/2017 9:51 AM EDT PM EDT Alton Acevedo MD ECG ORDERABLES Performing Organization Address City/State/ZIP Code Phon e Number MUSE SYSTEM documented in this encounter Visit Diagnoses Diagnosis Sinus arrest Other heart block ASCVD (arteriosclerotic cardiovascular d isease) Unspecified cardiovascular disease Essential hypertension Unspecified essential hypertension Coronary artery disease involving catawba heart with angina pectoris, unspecified vessel or lesion type Lipid disorder Unspecified disorder of lipoid metabolis m Sinus node dysfunction Sinoatrial node dysfunction ASCVD (arteriosclerotic cardiovascular d isease) Unspecified cardiovascular disease ASCVD (arteriosclerotic cardiovascular d isease) Unspecified cardiovascular disease documented in this encounter Care Teams Document Imaging Specialist Relationship Specialty Start Date End Date Satnam Barnes MD PCP - General 02/07/15 07/11/19 documented as of this encounter
--- OUTSIDE RECORDS SUMMARY | 2022-01-28 01:19 | XMS_ITS | Encounter Summary ---
:1945 Author Organization [facility] [place] [address] Care Team Providers Name Role Phone Satnam Barnes MD Primary Care Provider Encounter Details Date Type Department Care Team Description 03/16/2018 External Results Cardiology at [facility] [place] [address] Social History Tobacco Use Types Packs/Day [...] Description 03/12/2022 Appointment Cardiology Diane Garcia APRN [facility] [place] [address] (Wo rk) documented as of this encounter Procedures Procedure Name Priority Date/Time Associated Diagnosis Comme nts EXTERNAL LAB RESULTS Routine 01/25/2018 documented in this encounter Results External Lab Results (01/25/2018) Narrative This result has an attachment that is no t available. Historical Provider CHEMISTRY ORDERABLES documented in this encounter Visit Diagnoses Not on filedocumented in this encounter Care Teams Midwife Practitioner Relationship Specialty Start Date End Date Satnam Barnes MD PCP - General 02/07/15 07/11/19 documented as of this encounter
--- OUTSIDE RECORDS SUMMARY | 2022-01-28 01:19 | XMS_ITS | Encounter Summary ---
:1945 Author Organization [facility] [place] [address] Care Team Providers Name Role Phone Satnam Barnes MD Primary Care Provider Reason for Referral Diagnostic Test (Routine) - Closed Specialty Diagnoses / Procedures Referred By Contact Refer red To Contact Radiology Diagnoses ASCVD (arteriosclerotic cardiovascular disease) Alfreda Benitez MD [facility] Rad Nuclear Med Procedures NM Pharmacologic Stress CT Component [facility] CARE [place], [place] [id number] [place] [phone] Fax: Referral ID Status Reason Start Date Expiration Date Visits V isits Requested Authorized [id number] Closed Specialty 12/02/2017 12/02/2018 1 1 Service Requested Reason for Visit Diagnostic Test (Routine) - Closed Specialty Diagnoses / Procedures Referred By Contact Refer red To Contact Radiology Diagnoses ASCVD (arteriosclerotic cardiovascular disease) Alfreda Benitez MD [facility] Rad Nuclear Med Procedures NM Pharmacologic Stress CT Component [facility] [place], [place] [id number] [place] [phone] Fax: Referral ID Status Reason Start Date Expiration Date Visits V isits Requested Authorized [id number] Closed Specialty 12/02/2017 12/02/2018 1 1 Service Requested Encounter Details Date Type Department Care Team Description 12/17/2017 Hospital Encounter Nuclear Medicine at Alton Acevedo MD (arteriosclerotic [facility] [place]) [place], [place] [address] [phone] Social History Tobacco Use Types Packs/Day Years [...] Appointment Cardiology Diane Garcia, [facility] C[facility] [place], [place] [address] (Wo rk) documented as of this encounter Procedures Procedure Name Priority Date/Time Associated Diagnosis Comme nts NM PHARMACOLOGIC Routine 12/17/2017 12:27 ASCVD Results for this STRESS CT COMPONENT PM EDT (arteriosclerotic pro cedure are in cardiovascular the results disease) section. documented in this encounter Results [...] disease documented in this encounter Care Teams Office Support Associate Relationship Specialty Start Date End Date Satnam Barnes MD PCP - General 02/07/15 07/11/19 documented as of this encounter
--- OUTSIDE RECORDS SUMMARY | 2022-01-28 01:19 | XMS_ITS | Encounter Summary ---
:1945 Author Organization [facility] [place] [address] Care Team Providers Name Role Phone Satnam Barnes MD Primary Care Provider Reason for Visit Reason Comments Coronary Artery Disease Encounter Details Date Type Department Care Team Description 09/08/2016 Office Visit [place] [facility] [place] Coronary artery disease, ang chel presence unspecified, unspecified vessel or lesion type, unspecified whether alturas or transplanted heart; [facility] MD Hima Myocardial infarction, old; [facility] [place] Lipid disorder; [place], [place] Essential hypertension [id number] CARDIOLOGY DEPT. [phone] [place], [place] [address] Social History Tobacco Use Types [...] Sign Reading Time Taken Comments Blood Pressure 148/76 09/08/2016 10:35 AM EST Pulse 62 09/08/2016 10:35 AM EST Temperature - - Respiratory Rate - - Oxygen Saturation 97% 09/08/2016 10:35 AM EST Inhaled Oxygen Concentration - - Weight 106.6 kg (235 lb) 09/08/2016 10:35 AM EST Height 175.3 cm (5' 9) 09/08/2016 10:35 AM EST Body Mass Index 34.7 09/08/2016 10:35 AM EST documented in this encounter Patient Instructions Patient InstructionsHima Marino MD - 09/08/2016 11:00 AM EST 1. Stop amlodipine effective immediately. 2. Take the nebivolol at night instead of each morning. 3. Check on the dose of the doxazocin as this should be at night. documented in this encounter Progress Notes Hima Marino MD - 09/08/2016 11:00 AM EST Cardiology Clinic Note History: Corona Romo is a 71 y.o. male presenting for routine office follow up of cardiovascular problems. The patient is here with his and she relates concerns that in the past year the patient has been experiencing episodes of sudden low blood pressure and associated weakness, lightheadedness. He states that these events are perhaps once or twice per month and can almost cause a risk of falling if he is walking at the time. He tends to respond by trying to lie down if he is home and the feeling passes after an hour or so. He denies associated chest discomfort, COOPER, palpitations. Meds as below include a number of antihypertensive drugs. No other interval health concerns to mention. The issue of his antibiotic prophylaxis for recurrent cellulitis is still being discussed. Allergies as of 09/08/2016 ??? (No Known Allergies) Current Outpatient Prescriptions Medication Sig Note Dispense Refill ??? amLODIPine (NORVASC) 10 mg Tablet Take 1 tablet by mouth daily. 11/18/2015: Received from: External Pharmacy Received Si ??? atorvastatin (LIPITOR) 80 mg Tablet Take 1 tablet by mouth daily. 11/18/2015: Received from: External Pharmacy Received Si ??? amoxicillin (AMOXIL) 500 mg Capsule Take 500 mg by mouth daily. 02/07/2015: Received from: External Pharmacy Received Si ??? doxazosin (CARDURA) 4 mg Tablet Take 4 mg by mouth daily. 02/07/2015: Received from: External Pharmacy Received Si ??? doxazosin (CARDURA) 2 mg Tablet Take 2 mg by mouth daily. 02/07/2015: Received from: External Pharmacy Received Si ??? furosemide (LASIX) 20 mg Tablet Take 20 mg by mouth 2 times daily. 02/07/2015: Received from: External Pharmacy Received Si ??? aspirin 325 mg tablet Take 325 [...] BID (Patient taking differently: 2 times Daily) Physical Exam: Blood pressure 148/76, pulse 62, height 175.3 cm (5' 9), weight (!) 106.6 kg (235 lb), SpO2 97 %. General: Obese, older man, appearing comfortable at rest HEENT: Eyes: No conjunctival pallor Neck: No JVD, carotid bruits or lymphadenopathy Lungs: Clear to A+P Cor: RR, normal S1, S2. PMI not displaced. No murmur or gallop Ext: No edema, cyanosis or clubbing Neuro: physiologic Skin: Without rash or icterus Lab data: ECG today shows SBrady and is otherwise unremarkable. Lab Results Component Value Date WBC 9.2 12/14/2013 HGB 11.3 (L) 12/14/2013 HCT 33.5 (L) 12/14/2013 MCV 91.0 12/14/2013 PLATELET 152 12/14/2013 Chemistry Component Value Date/Time NA 138 12/14/2013 0400 K 3.4 (L) 12/14/2013 0400 CL 97 (L) 12/14/2013 0400 CO2 25 12/14/2013 0400 BUN 13 12/14/2013 0400 CREATININE 1.04 12/14/2013 0400 Component Value Date/Time CALCIUM 9.0 12/14/2013 0400 REST AND PHARMACOLOGIC MYOCARDIAL PERFUSION SCANS, 09/09/12 Clinical History CAD, preop assessment Comparison Report for rest and exercise stress myocardial perfusion scans dated 12/23/2004; images are not available for direct comparison. Technique During rest, 11.6 mCi of technetium-99m sestamibi were administered intravenously. Approximately 15 minutes later, SPECT images of the heart were obtained with reconstruction in the short, vertical long and horizontal long axes. The patient then received regadenoson intravenously at a dose of 0.4mg. Twenty seconds later, 40.3 mCi of technetium-99m sestamibi were administered intravenously. Images of the heart were then again obtained with SPECT reconstruction. A low dose CT scan was acquired for the purpose of attenuation correction. Findings The post pharmacologic and rest images demonstrate no reversible or fixed perfusion defects. LV cavity size is within normal limits. The gated study shows normal left ventricular wall thickening and wall motion. The estimated left ventricular ejection fraction is 58%, as compared to the reported 63% on the prior 2004 study. Impression No evidence of ischemia or scar. Normal left ventricular function with an estimated LVEF of 58%. Cardiovascular Problem list and Plan of care: 1. CAD, branch lesion in diagonal by cath in 1998, stable 2. Hypertension, essential 3. Lipid disorder, on statin at secondary prevention level I talked with the patient about his remote [place] and the stable CAD by symptoms. I reviewed the issue of his BP control and the potential for the collective effect of the meds to hit him by late morning or mid day when he seems to experience the lightheadedness and presyncope events. I recommended that he stop the amlodipine and switch the nebivolol to evening rather than AM. He is already taking the doxazocin at night for BPH symptoms. The patient will obtain a new home BP cuff to track his pressure and help guide any further changes. I reviewed the active treatment and ongoing surveillance for the cardiovascular problems as appropriate. I addressed the patient's questions. Non-Cardiac Problems: 1, DM, Type II 2. Morbid obesity 3. Obstructive sleep apnea, on CPAP daily 4. DJD Cardiology follow up scheduled for: 1 year prn 20 minutes of this 25 minute visit was spent in face to face discussion with the patient regarding the diagnoses in the assessment and plan of care. documented in this encounter Plan of Treatment Upcoming Encounters Date Type Specialty Care Team Description 03/12/2022 Appointment Cardiology Diane Garcia, LINE DIRECTOR [facility] CARDIOLOGY [place], [place] [address] (Wo rk) documented as of this encounter Procedures Procedure Name Priority Date/Time Associated Diagnosis Comme nts EKG 12-LEAD Routine 09/08/2016 10:49 AM Coronary artery Resul ts for this EST disease, angina procedure ar e in presence unspecified, the re sults unspecified vessel or sectio n. lesion type, unspecified whether alturas or transplanted heart Myocardial infarction, old Lipid disorder Essential hypertension documented in this encounter Results EKG 12 Lead (09/08/2016 10:49 AM EST) Component Value Ref Range Test Analysis Performed Pathologis t Method Time At Signature Ventricular rate 57 BPM MUSE SYSTEM Atrial Rate 57 BPM MUSE SYSTEM P-R Interval 142 ms MUSE SYSTEM QRS Duration 98 ms MUSE SYSTEM Q-T Interval 430 ms MUSE SYSTEM QTC Calculated 418 ms MUSE SYSTEM (Bezet) Calculated P [place] -14 degrees MUSE SYSTEM Calculated R [place] -19 degrees MUSE SYSTEM Calculated T [place] 50 degrees MUSE SYSTEM INTERPRETATION Sinus bradycardia MUSE SY STEM Otherwise normal ECG When compared with ECG of 02-OCT-2013 14:52, No significant change was found Confirmed by MD Tessa, Alejandra ([id number]) on 09/08/2016 1:1 1:42 PM Specimen Anatomical Collection Method Collection Time Receive d Time (Source) Location / / Volume Laterality 09/08/2016 10:49 09/08/2016 1:11 AM EST PM EST Hima Marino MD ECG ORDERABLES Performing Organization Address City/State/ZIP Code Phon e Number MUSE SYSTEM documented in this encounter Visit Diagnoses Diagnosis Coronary artery disease, angina presence unspecified, unspecified vessel or lesion type, unspecified whether alturas or rabago splanted heart Myocardial infarction, old Old myocardial infarction Lipid disorder Unspecified disorder of lipoid metabolis m Essential hypertension Unspecified essential hypertension documented in this encounter Care Teams Oven Baker Relationship Specialty Start Date End Date Satnam Barnes MD PCP - General 02/07/15 07/11/19 documented as of this encounter
--- OUTSIDE RECORDS SUMMARY | 2022-01-28 01:19 | XMS_ITS | Encounter Summary ---
:1945 Author Organization [facility] [place] [address] Care Team Providers Name Role Phone Satnam Barnes MD Primary Care Provider Encounter Details Date Type Department Care Team Description 12/20/2017 Telephone Cardiology Alfreda Benitez MD [facility] [place] [address] CRITICAL CARE MEDICINE [phone] [place], [place] [address] (Wo rk) Social History Tobacco [...] this encounter Miscellaneous Notes Telephone Encounter - Alfreda Benitez MD - 12/20/2017 3:06 PM EDT I attempted to contact Mr. Romo twice today (on his home and mobile number) to share with him the results of his recent stress testing (normal) but was unable to reach him. I left him a voice message on his home phone indicating that I wished to speak with him about his testing results. His Ziopatch results are still pending. He has a follow up appointment with Dr. Acevedo on 12/27/17. documented in this encounter Plan of Treatment Upcoming Encounters Date Type Specialty Care Team Description 03/12/2022 Appointment Cardiology Diane Garcia, ALMOND PASTE MOLDER [facility] CARDIOLOGY [place], [place] [address] (Wo rk) documented as of this encounter Visit Diagnoses Not on filedocumented in this encounter Care Teams Roving Hauler Relationship Specialty Start Date End Date Satnam Barnes MD PCP - General 02/07/15 07/11/19 documented as of this encounter
--- OUTSIDE RECORDS SUMMARY | 2022-01-28 01:19 | XMS_ITS | Encounter Summary ---
:1945 Author Organization [facility] Address [address] [facility] [place] [address] Care Team Providers Name Role Phone Satnam Barnes MD Primary Care Provider Reason for Visit Reason Comments Follow-up Bilat TKA 09/2005 Encounter Details Date Type Department Care Team Description 11/02/2018 Office Visit Orthopaed[facility] [place] [facility] [place] [facility], Dr Del Rosario Status post total right knee replacement; [facility] Team History of total left [place] [address] Social History Tobacco Use Types Packs/Day [...] Sign Reading Time Taken Comments Blood Pressure 162/76 11/02/2018 11:37 AM EDT Pulse 60 11/02/2018 11:37 AM EDT Temperature - - Respiratory Rate - - Oxygen Saturation - - Inhaled Oxygen Concentration - - Weight 103 kg (227 lb) 11/02/2018 11:37 AM EDT weighed Height 171 cm (5' 7.32) 11/02/2018 11:37 AM EDT measur ed Body Mass Index 35.21 11/02/2018 11:37 AM EDT documented in this encounter Progress Notes Dior Echeverria PA - 11/02/2018 11:10 AM EDT Arthroplasty/Orthopaedic History: 1. Left TKA - 09/10/05 - Dr. Del Rosario 2. Right TKA - 12/11/13 - Dr. Del Rosario HPI: Corona Romo is a very pleasant 73 y.o. year-old male and is now 13 years s/p left TKA and 5 years s/p right TKA. He is doing very well. He has no pain or complaints regarding the knees. He is very happy with how well they function. He is able to be active without limitations from his knees. He typically does not ambulate with any assistive devices. He does have a walking stick which he occasionally takes outdoors when walking on uneven ground. He has not had any recent injuries or falls. ROS: Denies: fever, chills, night sweats, nausea, or vomiting BP 162/76 Pulse 60 Ht 171 cm (5' 7.32) Comment: measured Wt 103 kg (227 lb) Comment: weighed BMI 35.21 kg/m?? Physical Exam: Well-appearing male in no acute distress. Alert and Oriented x 3 and answers all questions appropriately. The incisions are well healed, with no signs of infection. I have made the following determinations: Post Op Right Knee Exam: Knee ROM: Extension:0 Flexion: 120 Alignment: 0-4 degrees Neutral Stability: A/P Translation <5mm. Varus <5mm Valgus <5mm Extension La degrees or less Patella Tracking: Normal Pulses Palpable: Right PT: Yes Right DP:Yes Motor/Sensory: Distal Motor: Normal Distal Sensory: Normal Quadriceps Strength: 5 Post Op Left Knee Exam: Knee ROM: Extension:0 Flexion: 120 Alignment: 0-4 degrees Neutral Stability: A/P Translation <5mm Varus <5mm Valgus <5mm Extension La degrees or less Patella Tracking: Normal Pulses Palpable: Left PT:Yes Left DP:Yes Motor/Sensory: Distal Motor: Normal Distal Sensory: Normal Quadriceps Strength:5 X-RAYS: Multiple radiographic views were obtained at my request and reviewed with the patient. X-rays show a well-placed prosthesis with no evidence of fracture, subsidence, loosening, or periprosthetic complication. Questionnaire Responses: [facility] Surgical Postop Visit 11/02/2018 PROMIS-10 General Health Fair PROMIS-10 Quality of Life Good PROMIS-10 Physical Health Good PROMIS-10 Mental Health Fair PROMIS-10 Social Activity Good PROMIS-10 Everyday Activities Mostly PROMIS-10 Pain 2 PROMIS-10 Fatigue Mild PROMIS-10 Social Roles Good PROMIS-10 Anxious or Depressed Sometimes PROMIS PHYSICAL HEALTH SCORE 47.7 PROMIS MENTAL HEALTH SCORE 41.1 KOOS JR Scores 76.33 Problems with surgical incision/wound after surgery No Gone to ER since knee surgery No Where was ER located? - Date of ER visit - Reason for ER visit - Admitted to hospital since recent ortho surgery No Additional surgery on same body part No TKA Grade 10 Pain in other KNEE None Back pain at this moment Moderate Satisfaction with Treatment Satisfied Choose Same Treatment Again Definitely yes Orthope[facility] Response 11/02/2018 KOOS JR Scores 76.33 Spine [facility] Response 11/02/2018 KOOS JR Scores 76.33 ASSESSMENT/PLAN: Mr. Romo is a 73 y.o. year old male status post left and then right TKA. He is doing very well. He can continue to participate in activities as tolerated. He will follow-up in another 3 to 5 years with x-rays of both knees. We discussed the appropriate precautions surrounding dental prophylaxis; according to the AAOS Appropriate Use Criteria we do not recommend antibiotic use prior to dental procedures for Corona. We also discussed maintaining good foot care and giving prompt attention to any source of infection throughout the body including foot ulcers and urinary tract infections. documented in this encounter Plan of Treatment Upcoming Encounters Date Type Specialty Care Team Description 03/12/2022 Appointment Cardiology Diane Garcia, MANAGER CARDIAC [facility] [address] [place], [place] [address] (Wo rk) documented as of this encounter Visit Diagnoses Diagnosis Status post total right knee replacement History of total left knee replacement documented in this encounter Care Teams Retail Planner Relationship Specialty Start Date End Date Satnam Barnes MD PCP - General 02/07/15 07/11/19 documented as of this encounter
--- OUTSIDE RECORDS SUMMARY | 2022-01-28 01:19 | XMS_ITS | Encounter Summary ---
:1945 Author Organization [place] [address] Care Team Providers Name Role Phone Satnam Barnes MD Primary Care Provider Reason for Visit Reason Comments Coronary Artery Disease Follow-up Encounter Details Date Type Department Care Team Description 08/26/2015 Office Visit Cardiology at [facility] [place], Coronary artery disease invo lving levelock coronary artery of levelock heart without angina pectoris; [facility] MD H[facility] Lipid disorder; [facility] [place] [address] CARDIOLOGY DEPT. [phone] [place], [place] [address] Social History Tobacco Use Types [...] Sign Reading Time Taken Comments Blood Pressure 140/90 08/26/2015 10:21 AM EST Pulse 60 08/26/2015 10:21 AM EST Temperature - - Respiratory Rate - - Oxygen Saturation 98% 08/26/2015 10:21 AM EST Inhaled Oxygen Concentration - - Weight 113.1 kg (249 lb 4.8 oz) 08/26/2015 10:21 AM EST Height 175.3 cm (5' 9) 08/26/2015 10:21 AM EST Body Mass Index 36.82 08/26/2015 10:21 AM EST documented in this encounter Progress Notes Hima Marino MD - 08/26/2015 10:32 AM EST Cardiology Clinic Note History: Corona Romo is a 70 y.o. male presenting for routine office follow up of cardiovascular problems. The patient states that he has recovered well from his knee replacement and is much more ambulatory than in the past after the surgery. He denies chest discomfort, COOPER, palpitations. His medical regimen has been adjusted recently with the addition of doxasocin for BPH. His mentions that there has been recent pushback on the use of Bystolic because of cost. . Meds as below. He is using his CPAP mask irregularly and he comments that the device needs to be checked at [facility] to assess the humidification aspect. .. Allergies as of 08/26/2015 ??? (No Known Allergies) Current Outpatient Rx Name Route Sig Dispense Refill ??? amLODIPine (NORVASC) 2.5 mg Tablet Oral Take 2.5 mg by mouth daily. 0 ??? amoxicillin (AMOXIL) 500 mg Capsule Oral Take 500 mg by mouth daily. 0 ??? doxazosin (CARDURA) 4 mg Tablet Oral Take 4 mg by mouth daily. 0 ??? furosemide (LASIX) 20 mg Tablet Oral Take 20 mg by mouth 2 times daily. 0 ??? aspirin 325 mg tablet Oral Take 325 mg by mouth daily. ??? Nebivolol (BYSTOLIC) 10 mg Tab Oral Take 1 tablet by mouth 2 times daily. ??? losartan (COZAAR) 100 mg tablet Oral Take 100 mg by mouth daily. ??? potassium chloride (K-DUR/KLOR-CON) 20 mEq extended release tablet Oral Take 20 mEq by mouth 2 times daily. ??? atorvastatin (LIPITOR) 40 mg tablet Oral Take 80 mg by mouth daily. ??? metFORMIN (GLUCOPHAGE) 500 mg tablet Oral Take 1,000 mg by mouth 2 times daily (with meals). ??? buPROPion (BUDEPRION SR) 150 mg 12 hr tablet Oral Take 150 mg by mouth 2 times daily. ??? albuterol (PROVENTIL HFA;VENTOLIN HFA) 90 mcg/Actuation inhaler Inhalation Inhale 2 puffs into the lungs every 4 hours as needed. Use with spacer ??? penicillin v potassium (VEETID) 500 mg tablet Oral 500mg, PO, BID ??? doxazosin (CARDURA) 2 mg Tablet Oral Take 2 mg by mouth daily. 0 Physical Exam: Blood pressure 140/90, pulse 60, height 175.3 cm (5' 9), weight 113.082 kg (249 lb 4.8 oz), SpO2 98%. General: Obese, older man, appearing comfortable at rest HEENT: Eyes: No conjunctival pallor Neck: No JVD, carotid bruits or lymphadenopathy Lungs: Clear to A+P Cor: RR, normal S1, S2. PMI not displaced. No murmur or gallop Ext: No edema, cyanosis or clubbing Neuro: physiologic Skin: Without rash or icterus Lab data: Lab Results Component Value Date WBC 9.2 12/14/2013 HGB 11.3* 12/14/2013 HCT 33.5* 12/14/2013 MCV 91.0 12/14/2013 PLATELET 152 12/14/2013 Chemistry Component Value Date/Time NA 138 12/14/2013 0400 K 3.4* 12/14/2013 0400 CL 97* 12/14/2013 0400 CO2 25 12/14/2013 0400 BUN [...] by cath in 1998, stable 2. Hypertension, idiopathic, improved 3. Lipid disorder, on statin at secondary prevention level I talked with the patient about his remote [place] and the stable CAD by symptoms. I reviewed the issue of his BP control and the results of the recent SPRINT trail. He may be able to remain on the Bystolicif the case can be made that his control on this agent has been much more near target and, switchinghim off this drug for another beta eyal, may not provide the same control and tolerance. I reviewed the active treatment and ongoing [...] Team Description 03/12/2022 Appointment Cardiology Diane Garcia, ACQUISITION LEAD [facility] [address] [place] [address] (Wo rk) documented as of this encounter Visit Diagnoses Diagnosis Coronary artery disease involving levelock coronary artery of levelock heart without angina pectoris Lipid disorder Unspecified disorder of lipoid metabolis m Essential hypertension Unspecified essential hypertension documented in this encounter Care Teams Morale Officer Relationship Specialty Start Date End Date Satnam Barnes MD PCP - General 02/07/15 07/11/19 documented as of this encounter
--- OUTSIDE RECORDS SUMMARY | 2022-01-28 01:19 | XMS_ITS | Encounter Summary ---
:1945 Author Organization [facility] Address [address] [place] [address] Care Team Providers Name Role Phone Satnam Barnes MD Primary Care Provider Encounter Details Date Type Department Care Team Description 11/18/2015 Hospital Encounter XRay [place] [facility] [place] Chandra Del Rosario Status post total right knee replacement; 1 [facility] [address] Taran MD History of total knee arthroplasty, left [facility] [id number] [place] [address] [place] [address] Social History Tobacco Use Types Packs/Day Years [...] (AMOXIL) 500 Take 500 mg by 0 06/04/2 015 mg Capsule mouth as needed. doxazosin [...] Garcia APRN [facility] [place], [place] [address] (Wo rk) documented as of this encounter Procedures Procedure Name Priority Date/Time Associated Diagnosis Comme nts XR KNEE AP AND LAT Routine 11/18/2015 10:35 AM Status post tot al Results for this BILAT EDT right knee procedure are i n replacement the results History of total section. knee arthroplasty, left documented in this encounter Results XR Knee AP & Lateral - Bilateral (Generic) (11/18/2015 10:35 AM EDT) Anatomical Region Laterality Modality Knee Bilateral Digital Radiography Specimen (Source) Anatomical Location Collection Method / Collectio n Time Received Time / Laterality Volume Impressions 11/18/2015 4:31 PM EDT IMPRESSION: Bilateral total knee arthroplasties with no hardware complications. I have personally reviewed the image(s) and the residents interpretation and agree with the findings, Stephanie Min at 11/18/2015 4:31 PM Narrative 11/18/2015 4:31 PM EDT EXAMINATION: XR KNEES 1 OR 2 VIEWS BILATERAL CLINICAL HISTORY: bilateral tka TECHNIQUE: AP standing and lateral views of bilateral knees COMPARISON: Radiograph of the knees 02/07, 01/25/2014 and 08/04/2012 FINDINGS: Patient status post bilateral total knee arthroplasties. Left total knee arthroplasty is unchanged in position wi th no evidence of malalignment, periprostatic lucency or fracture. Uncha nged broad-based excrescence just anterior and superior to the femoral pro sthesis. Right total knee arthroplasty is unchang ed in position with no evidence of malalignment or periprosthetic fracture. There is mild increased lucency along the lateral tibial plateau which is stab le when compared to most recent prior 02/07/2015 however new when compared to . Likely represents evolved postsurgical change. Stable focus of het erotopic ossification at the superior posterior aspect of the right patella. Procedure Note Stephanie Min MD - 11/18/2015Forma tting of this note might be different from the original. EXAMINATION: XR KNEES 1 OR 2 VIEWS BILAT [facility] CLINICAL HISTORY: bilateral tka TECHNIQUE: AP standing and lateral views of bilateral knees COMPARISON: Radiograph of the knees 02/07, 01/25/2014 and 08/04/2012 FINDINGS: Patient status post bilateral total knee arthroplasties. Left total knee arthroplasty is unchanged in position wi th no evidence of malalignment, periprostatic lucency or fracture. Uncha nged broad-based excrescence just anterior and superior to the femoral pro sthesis. Right total knee arthroplasty is unchang ed in position with no evidence of malalignment or periprosthetic fracture. There is mild increased lucency along the lateral tibial plateau which is stab le when compared to most recent prior 02/07/2015 however new when compared to . Likely represents evolved postsurgical change. Stable focus of het erotopic ossification at the superior posterior aspect of the right patella. IMPRESSION IMPRESSION: Bilateral total knee arthroplasties with no hardware complications. I have personally reviewed the image(s) and the residents interpretation and agree with the findings, Stephanie Min at 11/18/2015 4:31 PM Chandra Del Rosario MD IMG DX ORDERABLES documented in this encounter Visit Diagnoses Diagnosis Status post total right knee replacement History of total knee arthroplasty, left documented in this encounter Care Teams System Support Analyst Relationship Specialty Start Date End Date Satnam Barnes MD PCP - General 02/07/15 07/11/19 documented as of this encounter
--- OUTSIDE RECORDS SUMMARY | 2022-01-28 01:19 | XMS_ITS | Encounter Summary ---
:1945 Author Organization [facility] Address [address] [place] [address] Care Team Providers Name Role Phone GosiaJessie alonzo MELISSA Primary Care Provider Encounter Details Date Type Department Care Team Description 09/12/2020 Office Visit Cardiology at [facility] [place] Rian Richards Essential hypertension; [facility] Center MD Ilan Sinus node dysfunction; Drive [facility] ASCVD (arteriosclerotic card iovascular disease) [place] [address] Cardiology [phone] [place] [address] Social History Tobacco Use Types Packs/Day Years [...] Sign Reading Time Taken Comments Blood Pressure 130/67 09/12/2020 10:59 AM EST Pulse 52 09/12/2020 10:59 AM EST Temperature - - Respiratory Rate - - Oxygen Saturation 97% 09/12/2020 10:59 AM EST Inhaled Oxygen Concentration - - Weight 103.4 kg (227 lb 14.4 oz) 09/12/2020 10:59 AM EST Height 175.3 cm (5' 9) 09/12/2020 10:59 AM EST Body Mass Index 33.65 09/12/2020 10:59 AM EST documented in this encounter Progress Notes Rian Richards MD - 09/12/2020 11:00 AM EST Images from the original note were not included. Former[facility] [place] [address] Cardiology Clinic Note CC: CAD Patient Name: Corona Romo HPI: Corona Romo is a 75 y.o. man with hypertension, hyperlipidemia, obesity, DM2 on oral medications, JR on CPAP and ASCVD with one vessel disease (Diag) managed medically after remote NSTEMI in 1998 (last cath at that time). Last seen in May 2020. Concerned about BP. Getting very high values; SBP readings in the 180-200s. Takes BP prior to taking AM meds on most days. Does not routinely check it later in the day. At our last visit 4 months ago, he reported his blood pressure was generally well controlled with SBP as high as 150 mmHg but generally lower than that. In the interim since that visit, he denies any significant changes to his health or dietary habits. Does admit that he is dealing with a lot of stress at home right now. States that he is compliant withhis antihypertensive medications with the help of his . Denies any new cardiac symptoms. Feeling well in general. Still able to be active. No change in exertional capacity or symptoms. Still able to shovel his driveway by hand in the snow; driveway is 100 yards long. Denies any exertional symptoms. 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 Difficulty of Paying Living Expenses: Not on file Food Insecurity: ??? Worried About Running Out of Food in the Last Year: Not on file ??? Ran Out of Food in the Last Year: Not on file Transportation Needs: ??? Lack of Transportation (Medical): Not on file ??? Lack of Transportation (Non-Medical): Not on file Physical Activity: ??? Days of Exercise per Week: Not on file ??? Minutes of Exercise per Session: Not on file 24 HR Review of [...] Temperature Temp: -- Heart Rate Heart Rate: 52 Heart Rate: [52] Blood Pressure BP: 130/67 BP: (130)/(67) Respiratory Rate Resp: -- SpO2 SpO2: 97 % SpO2: [97 %] Repeat manual BP by me: 128/64 [...] pressure, which has been poorly controlled at home for the past month or so. Reports systolic readings of 180-200 mmHg routinely. At this point, he is only taking 1 measurement daily prior to his morning medicines using an automated brachial cuff. Interestingly, in clinic today his blood pressure was 130/67 at check-in and a repeat manual by me at the end of the visit was 128/64 mmHg. Thus, before adjusting his medicines, I would like to gather a little more data. I advised him to move his amlodipine dose to the evening and continueto take losartan each morning. His other medicines (carvedilol, furosemide) are both twice daily. I am going to have him check his blood pressure after his morning medicines and again later in the after noon/evening for the next 1-2 weeks and call me with the data he gathers. PLAN: # Hypertension, not ideally controlled - continue carvedilol 3.125 mg BID, amlodipine 10 mg daily, losartan 100 mg daily , and lasix 40 mg BID - will have him take amlodipine at night - advised BID BP readings for 2 weeks and asked him to measure BP after AM meds - continue CPAP # ASCVD, chronic, stable - No chest pain - 2017 stress test w/out ischemia or scar ?? # Lipid disorder - continue atorvastatin 80mg daily ?? # RJ (obstructive sleep apnea) ?? # Sinus node dysfunction - sinus bradycardia improved with holding of nebivolol (bblocker). - no presyncope / syncope currently ?? # Diabetes mellitus Rian Richards MD, FACP, FACC Section of Cardiovascular Medicine [facility] Laster Handclinical laboratory aide [facility] documented in this encounter Plan of Treatment Upcoming Encounters Date Type Specialty Care Team Description 03/12/2022 Appointment Cardiology Diane Garcia APRN [facility] [address] [place], [place] [address] (Wo rk) documented as of this encounter Visit Diagnoses Diagnosis Essential hypertension Unspecified essential hypertension Sinus node dysfunction Sinoatrial node dysfunction ASCVD (arteriosclerotic cardiovascular d isease) Unspecified cardiovascular disease documented in this encounter Care Teams Cigarette Packer Relationship Specialty Start Date End Date Jessie Bose APRN PCP - General Geriatric Medicine 05/14/[address] [place] [address] documented as of this encounter
--- OUTSIDE RECORDS SUMMARY | 2022-01-28 01:19 | XMS_ITS | Encounter Summary ---
:1945 Author Organization [facility] Address [facility] [place] [address] Care Team Providers Name Role Phone Jessie Bose APRN Primary Care Provider Encounter Details Date Type Department Care Team Description 09/12/2020 External Results Cardiology at [facility] [place] [address] Social History Tobacco Use Types Packs/Day [...] Description 03/12/2022 Appointment Cardiology Diane Garcia APRN [facility] [address] [place], [place] [address] (Wo rk) documented as of this encounter Procedures Procedure Name Priority Date/Time Associated Diagnosis Comme nts EXTERNAL LAB RESULTS Routine 09/02/2020 Results for this procedure are i n the results section . documented in this encounter Results External Lab Results (09/02/2020) Narrative This result has an attachment that is no t available. Historical Provider CHEMISTRY ORDERABLES documented in this encounter Visit Diagnoses Not on filedocumented in this encounter Care Teams Digital Color Press Operator Relationship Specialty Start Date End Date Jessie Bose APRN PCP - General Geriatric Medicine 05/14/[address] [place] [address] documented as of this encounter
--- OUTSIDE RECORDS SUMMARY | 2022-01-28 01:19 | XMS_ITS | Encounter Summary ---
:1945 Author Organization [facility] [place] [address] Care Team Providers Name Role Phone Satnam Barnes MD Primary Care Provider Encounter Details Date Type Department Care Team Description 10/07/2016 Hospital Encounter [place] [facility] [place]andra Del Rosario History of total [address] [facility] [address] Taran MD knee arthroplasty, [facility] [address] [place] [phone] [place] [address] Social History Tobacco Use Types Packs/Day Years [...] Appointment Cardiology Diane Garcia APRN [facility] C[facility] [place], [place] [address] (Wo rk) documented as of this encounter Procedures Procedure Name Priority Date/Time Associated Diagnosis Comme nts XR KNEE AP & LAT Routine 10/07/2016 11:40 AM History of total Results for this LEFT EDT knee arthroplasty, procedure are in left the results section. documented in this encounter Results XR Knee [...] Diagnosis History of total knee arthroplasty, left documented in this encounter Care Teams Personal Banker Relationship Specialty Start Date End Date Satnam Barnes MD PCP - General 02/07/15 07/11/19 documented as of this encounter
--- OUTSIDE RECORDS SUMMARY | 2022-01-28 01:19 | XMS_ITS | Encounter Summary ---
:1945 Author Organization [facility] [place] [address] Care Team Providers Name Role Phone Satnam Barnes MD Primary Care Provider Reason for Visit Diagnostic Test (Routine) - Closed Specialty Diagnoses / Procedures Referred By Contact Refer red To Contact Radiology Diagnoses Coronary artery disease with exertional angina Alfreda Benitez MD [facility] Rad Nuclear Med Procedures NM Myocardial Perfusion Rest NM Pharmacologic Stress Myocardial Perfusion [facility] [place] [address] [place] [address] Fax: Referral ID Status Reason Start Date Expiration Date Visits V isits Requested Authorized [id number] Closed Specialty 11/11/2017 11/11/2018 2 2 Service Requested Encounter Details Date Type Department Care Team Description 11/16/2017 Hospital Encounter Nuclear Medicine at [facility] Coronary artery Concepcion Lira MD disease with [facility] [place] [address] [phone] Social History Tobacco Use Types Packs/Day Years [...] Appointment Cardiology Diane Garcia APRN [facility] CARDIOLOGY [place], [place] [address] (Wo rk) documented as of this encounter Visit Diagnoses Diagnosis Coronary artery disease with exertional angina documented in this encounter Administered Medications Inactive Administered Medications - up to 3 most recent administrations Medication Order MAR Action Action Date Dose Rate Site technetium (Tc-99m) sestamibi Given 11/16/2017 8:50 AM EDT 8.8 m Ci injection 8.8 mCi 8.8 mCi, Intravenous, ONCE PRN, 1 dose, Starting on 11/16/17 at 0850, Until 11/16/17 at 0850, Per Protocol, Routine documented in this encounter Care Teams Residential Sales Relationship Specialty Start Date End Date Satnam Barnes MD PCP - General 02/07/15 07/11/19 documented as of this encounter
--- OUTSIDE RECORDS SUMMARY | 2022-01-28 01:19 | XMS_ITS | Encounter Summary ---
:1945 Author Organization [facility] [place] [address] Care Team Providers Name Role Phone Satnam Barnes MD Primary Care Provider Reason for Referral Diagnostic Test (Routine) - Closed Specialty Diagnoses / Procedures Referred By Contact Refer red To Contact Diagnoses Sinus arrest Shon Bro MD Procedures [facility] [place] [address] Referral ID Status Reason Start Date Expiration Date Visits V isits Requested Authorized [id number] Closed Specialty 11/16/2017 11/16/2018 1 1 Service Requested Reason for Visit Diagnostic Test (Routine) - Closed Specialty Diagnoses / Procedures Referred By Contact Refer red To Contact Diagnoses Sinus arrest Shon Bro MD Procedures [facility] [place] [address] Referral ID Status Reason Start Date Expiration Date Visits V isits Requested Authorized [id number] Closed Specialty 11/16/2017 11/16/2018 1 1 Service Requested Encounter Details Date Type Department Care Team Description 11/16/2017 Hospital Encounter Non-Invasive Cardiology Celestine Acevedo, Sinus arrest Lab Concepcion Gaitan MD [facility] [place] [address] [place] [address] [phone] Social History Tobacco Use Types Packs/Day Years [...] Garcia APRN [facility] [place], [place] [address] (Wo rk) documented as of this encounter Procedures Procedure Name Priority Date/Time Associated Diagnosis Comme nts ZIOPATCH Routine 11/16/2017 12:20 PM Sinus arrest Results for this EDT procedure are i n the results section . documented in this encounter Results Ziopatch (11/16/2017 12:20 PM EDT) Specimen (Source) Anatomical Location Collection Method / Collectio n Time Received Time / Laterality Volume Narrative Avinash Melgar MD - 12/24/2017 8:40 PM EDT [facility] ? Zio Patch? Ambulatory Cardiac Event Monitor [...] with ectopy. Avinash Melgar MD, PhD, [facility] Cardiac Electrophysiology [facility] MD CARDIAC SERVICES ORDERABLES documented in this encounter Visit Diagnoses Diagnosis Sinus arrest Other heart block documented in this encounter Care Teams Mine Patrol Relationship Specialty Start Date End Date Satnam Barnes MD PCP - General 02/07/15 07/11/19 documented as of this encounter
--- OUTSIDE RECORDS SUMMARY | 2022-01-28 01:19 | XMS_ITS | Encounter Summary ---
:1945 Author Organization [facility] Address [facility] [place] [address] Care Team Providers Name Role Phone Jessie Bose APRN Primary Care Provider Encounter Details Date Type Department Care Team Description 11/08/2020 Orders Only [place] [facility] [place]beth Quiroga Coronary artery [facility] [place] coronary artery [place], [place] of [place] heart [address] without angina [phone] pectoris Social History Tobacco Use Types Packs/Day Years [...] Description 03/12/2022 Appointment Cardiology Diane Garcia APRN [facility] [address] [place], [place] [address] (Wo rk) documented as of this encounter Results EKG 12 Lead (11/22/2020 9:59 AM EDT) Component Value Ref Range Test Analysis Performed Pathologis t Method Time At Signature Ventricular rate 45 BPM MUSE SYSTEM Atrial Rate 45 BPM MUSE SYSTEM P-R Interval 152 ms MUSE SYSTEM QRS Duration 98 ms MUSE SYSTEM Q-T Interval 462 ms MUSE SYSTEM QTC Calculated 399 ms MUSE SYSTEM (Bezet) Calculated P [place] 78 degrees MUSE SYSTEM Calculated R [place] -28 degrees MUSE SYSTEM Calculated T [place] 49 degrees MUSE SYSTEM INTERPRETATION Marked sinus bradycardia with marked sinus arrhythmia MUSE SYSTEM Abnormal ECG When compared with ECG of 14-MAY-2020 14:36, No significant change was found Confirmed by MD Wyatt Daniel ([id number]) on 11/22/2020 5:38:27 PM Specimen Anatomical Collection Method Collection Time Receive d Time (Source) Location / / Volume Laterality 11/22/2020 9:59 AM 5:38 EDT PM EDT Rian Richards MD ECG ORDERABLES Performing Organization Address City/State/ZIP Code Phon e Number MUSE SYSTEM documented in this encounter Visit Diagnoses Diagnosis Coronary artery disease involving [place] coronary artery of [place] heart without angina pectoris documented in this encounter Care Teams Pipe Organ Installer Relationship Specialty Start Date End Date Jessie Bose APRN PCP - General Geriatric Medicine 05/14/[address] [place] [address] documented as of this encounter
--- OUTSIDE RECORDS SUMMARY | 2022-01-28 01:19 | XMS_ITS | Encounter Summary ---
:1945 Author Organization [facility] [place] [address] Care Team Providers Name Role Phone Satnam Barnes MD Primary Care Provider Reason for Referral Diagnostic Test (Routine) - Closed Specialty Diagnoses / Procedures Referred By Contact Refer red To Contact Radiology Diagnoses ASCVD (arteriosclerotic cardiovascular disease) Alfreda Benitez MD [facility] Rad Nuclear Med Procedures NM Pharmacologic Stress Myocardial Perfusion [facility] [address] [place], [place] [address] [place] [phone] Fax: Referral ID Status Reason Start Date Expiration Date Visits V isits Requested Authorized [id number] Closed Specialty 12/02/2017 12/02/2018 1 1 Service Requested Reason for Visit Diagnostic Test (Routine) - Closed Specialty Diagnoses / Procedures Referred By Contact Refer red To Contact Radiology Diagnoses ASCVD (arteriosclerotic cardiovascular disease) Alfreda Benitez MD [facility] Rad Nuclear Med Procedures NM Pharmacologic Stress Myocardial Perfusion [facility] [place], [place] [address] [place] [phone] Fax: Referral ID Status Reason Start Date Expiration Date Visits V isits Requested Authorized [id number] Closed Specialty 12/02/2017 12/02/2018 1 1 Service Requested Encounter Details Date Type Department Care Team Description 12/17/2017 Hospital Encounter Nuclear Medicine at [facility] MD (arteriosclerotic [facility] Medical cardiovas [facility] [address]) [place], [place] [address] [phone] Social History Tobacco Use Types Packs/Day Years [...] Appointment Cardiology Diane Garcia, MELISSA [facility] [place], [place] [address] (Wo rk) documented as of this encounter Procedures Procedure Name Priority Date/Time Associated Diagnosis Comme nts NM PHARMACOLOGIC Routine 12/17/2017 11:42 ASCVD Results for this STRESS AND REST AM EDT (arteriosclerotic procedu re are in MYOCARDIAL PERFUSION cardiovascular the r esults disease) section. documented in this encounter Results NM Pharmacologic Stress Myocardial Perfusion (12/17/2017 11:42 [...] Unspecified cardiovascular disease documented in this encounter Administered Medications Inactive Administered Medications - up to 3 most recent administrations Medication Order MAR Action Action Date Dose Rate Site technetium (Tc-99m) sestamibi Given 12/17/2017 9:55 AM EDT 8 mCi injection 8 mCi 8 mCi, Intravenous, ONCE PRN, 1 dose, Starting on Wed12/17/17 at 0955, Until Wed12/17/17 at 0955, Per Protocol, Routine documented in this encounter Care Teams Flipping Machine Operator Relationship Specialty Start Date End Date Satnam Barnes MD PCP - General 02/07/15 07/11/19 documented as of this encounter
--- OUTSIDE RECORDS SUMMARY | 2022-01-28 01:19 | XMS_ITS | Encounter Summary ---
:1945 Author Organization [facility] Address [place] [id number] Care Team Providers Name Role Phone Satnam Barnes MD Primary Care Provider Encounter Details Date Type Department Care Team Description 12/17/2017 Hospital Encounter Non-Invasive [facility] Cardiology Lab Concpecion Lira MD (arteriosclerotic [facility] Dr disease) [place], [place] Drive [address] [place], [place] [phone] (Work) [phone] Social History Tobacco Use Types Packs/Day Years [...] Appointment Cardiology Diane Garcia, MELISSA [facility] CARDIOLOGY [place], [place] [address] (Wo rk) documented as of this encounter Procedures Procedure Name Priority Date/Time Associated Diagnosis Comme nts NUCLEAR PHARMACOLOGIC Routine 12/17/2017 11:48 AM ASCVD (arter iosclerotic STRESS CARDIOLOGY EDT cardiovascular disease) documented in this encounter Results Nuclear Pharmacologic Stress Cardiology (12/17/2017 11:48 AM EDT) Specimen (Source) Anatomical Location Collection Method / Collectio n Time Received Time / Laterality Volume Narrative This result has an attachment that is no t available. [facility] Aceved[facility] MD CARDIAC SERVICES ORDERABLES documented in this encounter Visit Diagnoses Diagnosis ASCVD (arteriosclerotic cardiovascular d isease) Unspecified cardiovascular disease documented in this encounter Care Teams Pharmacy Intake Coordinator Relationship Specialty Start Date End Date Satnam Barnes MD PCP - General 02/07/15 07/11/19 documented as of this encounter
--- OUTSIDE RECORDS SUMMARY | 2022-01-28 01:20 | XMS_ITS | Encounter Summary ---
:1945 Author Organization [facility] [place] [address] Care Team Providers Name Role Phone Candace Avery MELISSA Primary Care Provider Encounter Details Date Type Department Care Team Description 12/18/2013 Anti-Coag Telephone Orthopaedics at [facility] [place] [facility] Paulina Rajput, [place] [phone] Social History Tobacco Use Types Packs/Day Years Used Date Never Smoker Smokeless Tobacco: Never Used Alcohol Use Standard Drinks/Week Comments No 0 (1 standard drink = 0.6 oz pure alcoho l) Sex Assigned at Date Recorded Not on file documented as of this encounter Progress Notes Paulina Rajput, RN - 12/18/2013 10:24 AM EDT Anticoagulation Therapy Nurse Visit Corona Romo 1945 Dr[address] Del Rosario Indication: DVT Prophylaxis S/P Joint Replacement Duration of Treatment: 28 days ends: January 08, 2014 Therapeutic Range: 2.0-3.0 INR: 1.6 Drawn by: [facility] Patient presents with no signs of bleeding or bruising or signs of thromboembolic events related to primary diagnosis above. Follow-up for re- evaluation and safety of continuing anticoagulation. Bleeding: Epistaxis Black tarry stools Gingival bleeding Increased bruising Hematuria Other: Hemoptysis x No bleeding / bruising noted Comments: Symptoms of recurring primary event: Chest pain Dyspnea Palpitations Headache Dizziness Edema Confusion Slurred speech Weakness Visual changes Tender/Red/Swollen extremities x No symptoms reported Other: Comments: Recent Medication Changes: no Comments: Have you missed any dose of Coumadin this past week? No Comments: Dietary Changes: No Comments: documented in this encounter Plan of Treatment Upcoming Encounters Date Type Specialty Care Team Description 03/12/2022 Appointment Cardiology Diane Garcia APRN [facility] [place], [place] [address] (Wo rk) documented as of this encounter Procedures Procedure Name Priority Date/Time Associated Diagnosis Comme nts EXTERNAL LAB RESULTS Routine 12/18/2013 Results for this procedure are i n the results section . documented in this encounter Results (ABNORMAL) External Lab Results (12/18/2013) P athologist Signature POC INR 1.6 0.9 - 1.1 (External Lab) Specimen (Source) Anatomical Location Collection Method / Collectio n Time Received Time / Laterality Volume 12/18/2013 Historical Provider CHEMISTRY ORDERABLES documented in this encounter Visit Diagnoses Not on filedocumented in this encounter Care Teams Airport Operations Officer Relationship Specialty Start Date End Date Candace Avery APRN PCP - General 04/03/11 01/17/15 CAROLYN [address] [place] [address] documented as of this encounter
--- OUTSIDE RECORDS SUMMARY | 2022-01-28 01:20 | XMS_ITS | Encounter Summary ---
:1945 Author Organization [facility] [place] [address] Care Team Providers Name Role Phone Candace Avery APRN Primary Care Provider Reason for Visit Reason Comments Aftercare Of Tjr right tka 12/11/13 Encounter Details Date Type Department Care Team Description 03/22/2014 Office Visit [place] [facility] [place]andra Del Rosario S/Frank knee replacement, [facility] MD Taran right (Primary Dx) [place] [address] [place] [address] ORTHOPAEDIC SURGERY [place] [address] Social History Tobacco Use Types Packs/Day Years Used Date Never Smoker Smokeless Tobacco: Never Used Alcohol Use Standard Drinks/Week Comments No 0 (1 standard drink = 0.6 oz pure alcoho l) Sex Assigned at Date Recorded Not on file documented as of this encounter Last Filed Vital Signs Vital Sign Reading Time Taken Comments Blood Pressure 152/68 03/22/2014 9:33 AM EDT Pulse 60 03/22/2014 9:33 AM EDT Temperature - - Respiratory Rate - - Oxygen Saturation - - Inhaled Oxygen Concentration - - Weight 108.9 kg (240 lb) 03/22/2014 9:33 AM EDT Height 170.2 cm (5' 7) 03/22/2014 9:33 AM EDT Body Mass Index 37.59 03/22/2014 9:33 AM EDT documented in this encounter Progress Notes Terrell Still, CELIA - 03/22/2014 9:59 AM EDT Patient Name: Corona Romo : 1945 MR#: [id number] Case Date: 12-11-2013 Surgeon: Sadie Del Rosario Procedure: right total knee replacement HPI: Corona Romo is a very pleasant 69 y.o. year-old male who presents for a 3 months follow-up ofthe above procedure. The patient has been doing very well and his pain is markedly improved over preoperative status. No fevers, chills, nausea, vomiting, or symptoms of infection. Corona has been ambulating with no assistive device. He is extremely happy with his outcome. Physical Exam: Well-appearing male in no acute distress. Alert and Oriented x 3 and answers all questions appropriately. The incision is well healed, with no signs of infection. Post Op Right Knee Exam: Gait Abnormality: Normal Knee ROM: Extension:0 Flexion: 120 Alignment: 0-4 degrees Neutral Stability: A/P Translation <5mm. Varus <5mm Valgus <5mm Extension La degrees or less Patella Tracking: Normal Pulses Palpable: Right PT: Yes Right DP:Yes Motor/Sensory: Distal Motor: Normal Distal Sensory: Normal Quadriceps Strength: 4 ASSESSMENT/PLAN: 3 months post-op and doing well. Continue weightbearing as tolerated and working onrange of motion, and we will see him back in 9 months for repeat examination. x-rays will be needed at that time. Patient [...] foot ulcers and urinary tract infections. Signed: CELIA BUENROSTRO 03/22/2014 documented in this encounter Plan of Treatment Upcoming Encounters Date Type Specialty Care Team Description 03/12/2022 Appointment Cardiology Diane Garcia APRN [facility] C[facility] [place], [place] [address] (Wo rk) documented as of this encounter Visit Diagnoses Diagnosis S/P knee replacement, right - Primary documented in this encounter Care Teams Director Check Relationship Specialty Start Date End Date Candace Avery APRN PCP - General 04/03/11 01/17/15 CAROLYN [address] [place] [address] documented as of this encounter
--- OUTSIDE RECORDS SUMMARY | 2022-01-28 01:20 | XMS_ITS | Encounter Summary ---
:1945 Author Organization [facility] [place] [address] Care Team Providers Name Role Phone Candace Avery Guanaco TORRES Primary Care Provider Reason for Visit Reason Onset Date Comments Medication Reaction 01/01/2014 Encounter Details Date Type Department Care Team Description 01/01/2014 Telephone Orthopaedics at [facility] [place] Chandra Del Rosairo, Medication Reaction [facility] [place] [address] [facility] [phone] DR ORTHOPAEDIC SURG [place], [place] [address] (Wo rk) Social History Tobacco Use Types Packs/Day Years Used Date Never Smoker Smokeless Tobacco: Never Used Alcohol Use Standard Drinks/Week Comments No 0 (1 standard drink = 0.6 oz pure alcoho l) Sex Assigned at Date Recorded Not on file documented as of this encounter Miscellaneous Notes Telephone Encounter - Paulina Rajput RN - 01/01/2014 1:33 PM EDT Phone call to Mr. Romo - he is having difficulty with nausea and pain management. Reports that the medication makes him nauseated and reports that it does not last very long. Discuss having him return to the oxycodone but he does not want to do that - discuss using acetaminophen up to 3000 mg daily and help him to see where he might add up to two doses of tylenol. Offer anti-nausea medication but does not want to add a medication at this time. He is using ice and it is providing good relief. Request refill of vicodin to [facility]. Refill phoned in per request. Telephone Encounter - Aissatou Vazquez - 01/01/2014 12:57 PM EDT Corona called and would like to prescribed a different pain medication. Corona is currently prescribed Vicodin and experiencing nausea when taking it. Corona was also prescribed oxycodone prior to the Vicodin and was experiencing nausea as well. Corona states there is no redness around his incision site., s/p 12/11/13 Right TKA. Best number to reach Corona is [phone] documented in this encounter Plan of Treatment Upcoming Encounters Date Type Specialty Care Team Description 03/12/2022 Appointment Cardiology Diane Garcia APRN [facility] [place], [place] [address] (Wo rk) documented as of this encounter Visit Diagnoses Diagnosis Knee joint replacement by other means - Primary documented in this encounter Care Teams Wallpaper Remover Steam Relationship Specialty Start Date End Date Candace Avery APRN PCP - General 04/03/11 01/17/15 CAROLYN [address] [place] [address] documented as of this encounter
--- OUTSIDE RECORDS SUMMARY | 2022-01-28 01:20 | XMS_ITS | Encounter Summary ---
:1945 Author Organization [facility] Address One [facility] [place] [address] Care Team Providers Name Role Phone Candace Avery APRN Primary Care Provider Encounter Details Date Type Department Care Team Description 11/30/2013 [place] En[place] [facility] [place] [facility] [place] [facility] [place] [phone] Social History Tobacco Use Types Packs/Day [...] (SYMBICORT) 160-4.5 lungs. mcg/actuation HFA Aerosol Inhaler losartan (COZAAR) 100 mg Take 100 mg by mouth 0 Tablet daily. metFORMIN (GLUCOPHAGE) Take 1,000 mg by 0 500 mg tablet mouth 2 times daily (with meals). buPROPion SR (Wellbutrin Take 150 mg by mouth 0 SR) 150 mg tablet 2 times daily. sustained-release 12 hr albuterol (PROVENTIL Inhale 2 puffs into 0 HFA;VENTOLIN HFA) 90 the lungs every 4 mcg/Actuation inhaler hours as needed. Use with spacer penicillin v potassium 500mg, PO, BID 0 1 (VEETID) 500 mg tablet acetaminophen (TYLENOL) Take 2 tablets by 0 12/1403/22/2014 500 mg tablet mouth every 8 hours. Take around the clock for the first 10 days (December 21) and then as needed to help control pain. DO NOT EXCEED 3000 MG IN A 24 HOUR PERIOD. bisacodyl (DULCOLAX) 10 Place 1 suppository 0 11/201301/25/2014 mg suppository rectally daily as needed. oxyCODONE (ROXICODONE) 5 Take 1-3 tablets by 90 tablet 0 12/25/2013 mg immediate release mouth every 4 hours tablet as needed for Pain (mild pain). polyethylene glycol Take 17 g by mouth 0 12/15/19 14 01/25/2014 (MIRALAX) 17 gram packet daily. senna-docusate Take 1-4 tablets by 60 tablet 2 12/14/2013 0 01/25/2014 (PERICOLACE) 8.6-50 mg mouth 2 times daily. per tablet Take while on the narcotic pain medicine. warfarin (COUMADIN) 5 mg Take 1.5 tablets by 45 tablet 0 01/25/2014 tablet mouth daily. Your dose may vary depending on your INR value. You may need to break or combine pills to achieve the right dose. amlodipine (NORVASC) 10 Take 2.5 mg by mouth 0 01/25/2014 mg tablet daily. CALCIUM Take 2,000 Units by 0 01/25 CARBONATE/VITAMIN D3 mouth daily. (VITAMIN D-3 ORAL) acetaminophen (TYLENOL) Take 1,000 mg by 0 12/14/2013 500 mg tablet mouth every 6 hours as needed. ferrous sulfate 325 mg Take 325 mg by mouth 0 02/07/2015 (65 mg iron) EC tablet 2 times daily. furosemide (LASIX) 80 mg Take 80 mg by mouth 2 0 02/07/2015 tablet times daily. potassium chloride Take 20 mEq by mouth 0 11/22/2020 (K-DUR/KLOR-CON) 20 mEq 2 times daily. extended release tablet atorvastatin (LIPITOR) Take 80 mg by mouth 0 11/18/2015 40 mg tablet daily. aspirin 325 mg tablet 0 08/06/201011/2013 documented as of this encounter Plan of Treatment Upcoming Encounters Date Type Specialty Care Team Description 03/12/2022 Appointment Cardiology Diane Garcia, CHROME CLEANER [facility] [place], [place] [address] (Wo rk) documented as of this encounter Procedures Procedure Name Priority Date/Time Associated Diagnosis Comme nts XR JOINT TEAM Routine 11/30/2013 2:25 PM Right knee pain Resul ts for this ALIGNMENT AP LAT EDT procedure a re in [facility] the results section. documented in this encounter Results XR Joint Team alignment AP LAT [place] (11/30/2013 2:25 PM EDT) Anatomical Region Laterality Modality N/A Radiographic Imaging Specimen (Source) Anatomical Collection Method Collection Time Re ceived Time Location / / Volume Laterality 11/30/2013 2:25 PM EDT Narrative 11/30/2013 4:50 PM EDT Examination JOINT TEAM STANDING ALIGNMENT AP LAT [facility] [place]/RIGHT Clinical History right knee pain Comparison None Technique Separate images of the pelvis, knees and feet were acquired in the AP projection with the patient standing. In addition to routine views of the knee, these images were stitched together to f orm a composite image of the pelvis and legs allowing for evaluation of lower ex tremity alignment in the weight bearing position. Findings The standing alignment study documents p resence of a left total knee arthroplasty. ??Mechanical axis is well centered on the left. ??On the right there is medial displacement mechanical axis and severe medial joint space narrowing. At the right knee there is a joint effus ion but I do not see a fracture. ?? Severe medial compartment joint space na rrowing is present. ??There is subchondral sclerosis and osteophyte for mation. ??Chondrocalcinosis can be seen in the lateral compartment. Procedure Note Terrell Lugo MD - 11/30/2013Forma tting of this note might be different from the original. Examination JOINT TEAM STANDING ALIGNMENT AP LAT [facility] [place]/RIGHT Clinical History right knee pain Comparison None Technique Separate images of the pelvis, knees and feet were acquired in the AP projection with the patient standing. In addition to routine views of the knee, these images were stitched together to f orm a composite image of the pelvis and legs allowing for evaluation of lower ex tremity alignment in the weight bearing position. Findings The standing alignment study documents p resence of a left total knee arthroplasty. Mechanical axis is well ce ntered on the left. On the right there is medial displacement mechanical axis and severe medial joint space narrowing. At the right knee there is a joint effus ion but I do not see a fracture. Severe medial compartment joint space na rrowing is present. There is subchondral sclerosis and osteophyte for mation. Chondrocalcinosis can be seen in the lateral compartment. Chandra Del Rosario MD IMG DX ORDERABLES documented in this encounter Visit Diagnoses Diagnosis Right knee pain Pain in joint, lower leg documented in this encounter Care Teams Bingo Floater Relationship Specialty Start Date End Date Candace Avery, CHROME CLEANER PCP - General 04/03/11 01/17/15 CAROLYN [address] [place] [address] documented as of this encounter
--- OUTSIDE RECORDS SUMMARY | 2022-01-28 01:20 | XMS_ITS | Encounter Summary ---
:1945 Author Organization [facility] [place] [address] Care Team Providers Name Role Phone Bennie Candace Blanc APRN Primary Care Provider Encounter Details Date Type Department Care Team Description 01/25/2014 [place] En[place] [facility] [place] post right knee [address] [facility] [place] [address] Social History Tobacco Use Types Packs/Day [...] BID 0 1 (VEETID) 500 mg tablet aspirin 325 mg tablet Take 325 mg by 0 03/15/2018 mouth daily. acetaminophen (TYLENOL) Take 2 tablets by 0 12/1403/22/2014 500 mg tablet mouth every 8 hours. Take around the clock for the first 10 days (December 21) and then as needed to help control pain. DO NOT EXCEED 3000 MG IN A 24 HOUR PERIOD. ferrous sulfate 325 mg (65 Take 325 mg by 0 02/07/2015 mg iron) EC tablet mouth 2 times daily. furosemide (LASIX) 80 mg Take 80 mg by mouth 0 02/07/2015 tablet 2 times daily. potassium chloride Take 20 mEq by 0 (K-DUR/KLOR-CON) 20 mEq mouth 2 times extended release tablet daily. atorvastatin (LIPITOR) 40 Take 80 mg by mouth 0 11/18/2015 mg tablet daily. documented as of this encounter Plan of Treatment Upcoming Encounters Date Type Specialty Care Team Description 03/12/2022 Appointment Cardiology Diane Garcia, RIDE ATTENDANT [facility] [place], [place] [address] (Wo rk) documented as of this encounter Procedures Procedure Name Priority Date/Time Associated Diagnosis Comme nts XR TKA FIRST PO Routine 01/25/2014 10:00 AM Status post right Results for this VISIT ALIGNMENT AP EDT knee replacement proce dure are in LAT [place] the results section. documented in this encounter Results XR TKA first PO visit alignment AP LAT [place] (01/25/2014 10:00 AM EDT) Anatomical Region Laterality Modality Knee N/A Radiographic Imaging Specimen (Source) Anatomical Collection Method Collection Time Re ceived Time Location / / Volume Laterality 01/25/2014 10:00 AM EDT Narrative 01/25/2014 10:10 AM EDT Examination TKA FIRST PO VISIT STANDING ALIGNMENT AP [place]/RIGHT Clinical History s/p right tka first post op Comparison None Technique Separate images of the pelvis, knees and feet were acquired in the AP projection with the patient standing. In addition to routine views of the knee, these images were stitched together to f orm a composite image of the pelvis and legs allowing for evaluation of lower ex tremity alignment in the weight bearing position. Additionally standing AP, sunrise and la teral views of the right knee were obtained. Findings The patient is status post bilateral tot al knee arthroplasty. There is approximately 2.5 cm of medial deviation of the weight-bearing axis on the right and virtually no deviation on the left. No leg length discrepancy. ?? Since a prior study of 11/30/2013, the p atient has undergone the right total knee arthroplasty having undergone the l eft TKA previously. No periprosthetic fracture or osteolysis is seen. No radio graphic evidence of complication is appreciated. ?? Impression Status post interval right TKA without r adiographic evidence of complication. Procedure Note Luis Daniel Delarosa MD - 01/25/2014Format ting of this note might be different from the original. Examination TKA FIRST PO VISIT STANDING ALIGNMENT AP LAT [place]/RIGHT Clinical History s/p right tka first post op Comparison None Technique Separate images of the pelvis, knees and feet were acquired in the AP projection with the patient standing. In addition to routine views of the knee, these images were stitched together to f orm a composite image of the pelvis and legs allowing for evaluation of lower ex tremity alignment in the weight bearing position. Additionally standing AP, sunrise and la teral views of the right knee were obtained. Findings The patient is status post bilateral tot al knee arthroplasty. There is approximately 2.5 cm of medial deviation of the weight-bearing axis on the right and virtually no deviation on the left. No leg length discrepancy. Since a prior study of 11/30/2013, the p atient has undergone the right total knee arthroplasty having undergone the l eft TKA previously. No periprosthetic fracture or osteolysis is seen. No radio graphic evidence of complication is appreciated. Impression Status post interval right TKA without r adiographic evidence of complication. Chandra Del Rosario MD IMG DX ORDERABLES documented in this encounter Visit Diagnoses Diagnosis Status post right knee replacement documented in this encounter Care Teams Baker Relationship Specialty Start Date End Date Candace Aveyr APRN PCP - General 04/03/11 01/17/15 [facility] [address] [place] [address] documented as of this encounter
--- OUTSIDE RECORDS SUMMARY | 2022-01-28 01:20 | XMS_ITS | Encounter Summary ---
:1945 Author Organization [facility] [place] [address] Care Team Providers Name Role Phone Candace Avery MELISSA Primary Care Provider Encounter Details Date Type Department Care Team Description 01/04/2014 Anti-Coag Telephone Orthopaedics at [facility] [place] Paulina [place]put, [place] [address] Social History Tobacco Use Types Packs/Day Years Used Date Never Smoker Smokeless Tobacco: Never Used Alcohol Use Standard Drinks/Week Comments No 0 (1 standard drink = 0.6 oz pure alcoho l) Sex Assigned at Date Recorded Not on file documented as of this encounter Progress Notes Paulina Rajput, RN - 01/04/2014 2:21 PM EDT Anticoagulation Therapy Nurse Visit Corona Romo 1945 Dr[address] Del Rosario Indication: DVT Prophylaxis S/P Joint Replacement Duration of Treatment: 28 days ends: January 08, 2014 Therapeutic Range: 2.0-3.0 INR: 4.7 Drawn by: [facility] Patient presents with no signs of bleeding [...] Garcia APRN [facility] [place], [place] [address] (Wo rk) documented as of this encounter Procedures Procedure Name Priority Date/Time Associated Diagnosis Comme nts EXTERNAL LAB RESULTS Routine 01/04/2014 Results for this procedure are i n the results section . documented in this encounter Results (ABNORMAL) External Lab Results (01/04/2014) P athologist Signature POC INR 4.7 0.9 - 1.1 (External Lab) Specimen (Source) Anatomical Location Collection Method / Collectio n Time Received Time / Laterality Volume 01/04/2014 Historical Provider CHEMISTRY ORDERABLES documented in this encounter Visit Diagnoses Not on filedocumented in this encounter Care Teams Advertising Sales Associate Relationship Specialty Start Date End Date Candace Avery APRN PCP - General 04/03/11 01/17/15 CAROLYN [address] [place] [address] documented as of this encounter
--- OUTSIDE RECORDS SUMMARY | 2022-01-28 01:20 | XMS_ITS | Encounter Summary ---
:1945 [place] [address] Care Team Providers Name Role Phone Candace Avery APRN Primary Care Provider Encounter Details Date Type Department Care Team Description 12/11/2013 Anesthesia Event Main Operating Room Thaddeus Echavarria MD [facility] ANESTHESIOLOGY [place], [place] [address] [phone] Anesthesia Record Procedure Summary Procedure Name Responsible Anesthesia Start Anesthesia Stop Anesthesiologist Time Time TOTAL KNEE Thaddeus Angela MD 12/11/13 1044 12/11/13 130 1 ARTHROPLASTY (WRVU 20.72) (Right Knee) Events Date Time Event Comment 12/11/2013 0851 1044 Start 1046 AN Verify 1049 An Start Data 1055 Spinal 1058 Anesthesia Ready 1124 An Tourn Inflated 1125 Skin Incision 1213 An Tourn Deflated 1243 Procedure Stop 1250 an stop data 1301 Stop Name Total Propofol INF 500.59 mg ceFAZolin 2 g Tranexamic Acid 1,660 mg lactated ringers infusion 1,000 mL 0 mL Agents Name O2 Air O2 Auxiliary Flowmeter 1 Blood No blood administrations on file. Lines, Drains, and Airways Type Details Placement Removal Incision 12/11/13; knee 12/11/13 0000 by Ana Rodriguez RN Lumbar/CSF Drain 12/11/13; Right; knee; 12/11/13 0000 by 4 0000 by collapsible closed Ana Rodriguez RN Thomas, Ellen C, RN device; 12/12/13 (removed by other) Urethral Catheter 12/11/13; indwelling 12/11/13 0000 by 12/13/13 1402 by double lumen catheter; Ana Rodriguez RN Ro bert, Christa M, 100% silicone, RN hydrophilic coated; 12; inserted at this facility; 2; 5; 10; none; drainage bag to dependent drainage; met resistance half way in. touch of blood on 16 F cath tip. Switched to 12 F Per MD. No resistance (Urine blood tinged after insertion. MD aware.); 12/13/13; 1402 PIV 12/11/13; 0854; 12/11/13 0854 by Cm, 12/13/13 2 128 by metacarpal vein (top of MARY Yung, Sangita Talavera RN hand), left; [id number] catheter system; 18 gauge, 1 in length; Shelli Pabon RN; intradermal injection, tolerated well; 0; 12/13/13; 2127 documented in this encounter Social History Tobacco Use Types Packs/Day Years Used Date Never Smoker Smokeless Tobacco: Never Used Alcohol Use Standard Drinks/Week Comments No 0 (1 standard drink = 0.6 oz pure alcoho l) Sex Assigned at Date Recorded Not on file documented as of this encounter OR Notes Anesthesia Postprocedure Evaluation - Thaddeus Angela MD - 12/11/2013 1:27 PM EDT Patient: Corona Romo Procedure(s) Performed: Procedure(s): @TOTAL KNEE ARTHROPLASTY MODIFIER PFC STABILIZED FIXED MODULAR DEPUY Actual Anesthetic: spinal, regional Patient location: PACU Post-op pain: Adequate analgesia Post-op nausea: no nausea or vomiting Last Vitals: Filed Vitals: 12/11/13 1300 BP: 122/64 Pulse: 49 Temp: Resp: 15 Post-op cardiovascular and respiratory status: is stable Level of consciousness: awake, alert and oriented Complications: no apparent complications and tolerated the procedure well Fluid Status: normal Anesthesia Procedure Notes - Felipe Vee MD - 12/11/2013 9:16 AM EDT Associated Order(s): ANESTHESIA BLOCK; ANE NEURAXIAL UPDATED Procedure: Right Adductor canal block Block: Post-op Pain Control, saphenous nerve block/mid thigh Start time: 12/11/2013 9:04 AM End time: 12/11/2013 9:16 AM This patient was greeted in the block room and the risks and benefits of the anesthetic block were reviewed. The risks of infection, bleeding, local anesthetic toxicity, and nerve injury were discussed. Specifically, the approximate risk of nerve injury (07/2999-07/4999) including neuropathy, loss of sensation and motor function, whether permanent or temporary, was discussed as well as the fact that post-surgical nerve injury can be unrelated to the actual injection and may be related to intra-operative issues such as positioning and tourniquet usage. The anesthetic consent was obtained. The timeout was performed prior to procedure start. Standard ASA monitors were applied. Indication/Prep Position: supine Prep: chlorhexidine Laterality: right Ultrasound Guidance: live and in-plane Skin Medication lidocaine 1% 4 ml Injection Injection technique:single-shot Needle Length: 10 cm Gauge: 21 Needle Type: Medication injection made incrementally with aspirations. Nerve infiltration solution through a needle Ropivicaine 0.5% 30 mL Performed by: Nanda Supervising Attending/Fellow: Julio César ~~~~~~~~~~~~~~~~~~~~~~~~~~~~~~~~~~~~~~~~~~~~~~~~~~~~~~~~~~~~ Procedure: Neuraxial Block Primary Anesthetic Type: Spinal The patient was greeted; the risks and benefits were reviewed. The anesthetic consent was obtained. The medical history and chart were reviewed. The timeout was performed. Start time: 12/11/2013 10:47 AM End time: 12/11/2013 10:55 AM Patient Location: Operating Room Patient Prep Position: Sitting Prep: Hand Hygiene, Hat, Mask, Sterile Gloves, Chlorhexidine and Patient Draped Injection technique: single-shot Skin Anesthetic Lidocaine 1% 5 ml Procedure Technique Level of needle insertion: L4-5 Needle approach: midline Needle Type: [facility] Gauge: 25 Needle length: 5 in Needle insertion depth when ANA achieved: 5 cm Number of attempts: 1 Intrathecal Injection The patient received the following medication/s as an intrathecal injection: Bupivacaine 0.75% w dextrose 2 ml Epinephrine Epi Wash Events/Notes Events: None Performed by: Thaddeus Angela Supervising Attending/Fellow: Thaddeus Angela ~~~~~~~~~~~~~~~~~~~~~~~~~~~~~~~~~~~~~~~~~~~~~~~~~~~~~~~~~~~~ Anesthesia Preprocedure Evaluation - Thaddeus Angela MD - 12/10/2013 2:22 PM EDT Images from the original note were not included. Pre-Anesthesia Evaluation for: Corona Romo a 68 y.o. male. Procedure(s): @TOTAL KNEE ARTHROPLASTY MODIFIER PFC STABILIZED FIXED MODULAR DEPUY Patient Active Problem List Diagnosis ??? Preop testing - TKR ??? Osteoarthritis of right knee ??? CAD (coronary artery disease) ??? Myocardial infarction, old ??? Lipid disorder ??? Hypertension ??? RJ (obstructive sleep apnea) ??? History of total knee arthroplasty(LEFT) ??? CIS - DJD ??? CIS - DM, Type II ??? CIS - Morbid obesity Past Medical History Diagnosis Date ??? CIS - DM, Type II 01/31/2009 No past surgical history on file. History Substance Use Topics ??? Smoking status: Never Smoker ??? Smokeless tobacco: Never Used ??? Alcohol Use: No History Drug Use No No Known Allergies Medications: MAR and/or home medications have been reviewed. Physical Exam: There were no vitals filed for this visit. There is no height or weight on file to calculate BMI. Airway Assessment: Mallampati: II TM distance: >3 FB Neck ROM: full Cardiovascular Assessment: cardiovascular exam normal Pulmonary Assessment: pulmonary exam normal Dental Assessment: Misc Assessment: Anesthesia Plan: ASA 3 spinal and regional, with a(n) intravenous induction Mr. Romo is a 68 year old male with PMHx of obesity, CAD with h/o KS (negative catheterization in 1998; stress test in 09/2012 normal), DMII (on metformin), HTN (on losartan, nebivolol, amlodipine and Lasix), HLD (on Lipitor), h/o alcoholism in the remote past, depression (on Wellbutrin, pt admitted for SI in 1996 - well controlled at present), RJ and OA who presents for TKA. Pt has NKDA. Laboratory values reviewed: Hg 13.4, plt count 213, Cr 1.16. Antibody screen negative. ECG illustrates HR of 55 and improved nonspecific T wave abnormalities in the inferior leads when compared to previous ECG. Plan for preoperative Tylenol, gabapentin,SAB and a regional nerve block for post-operative analgesia. GA with ETT and arterial line for back-up. Patient is appropriately NPO. Region - Other Informed Consent: Anesthetic plan and risks discussed with patient and spouse. Plan discussed with LOCOMOTIVE INSPECTOR. [facility] Assessment: documented in this encounter Plan of Treatment Upcoming Encounters Date Type Specialty Care Team Description 03/12/2022 Appointment Cardiology Diane Garcia, MELISSA [facility] CARDI[facility]Y [place], [place] [address] (Wo rk) documented as of this encounter Procedures Procedure Name Priority Date/Time Associated Diagnosis Comme nts ANESTHESIA BLOCK Routine 12/11/2013 12:43 PM Resu lts for this EDT procedure are i n the results section. documented in this encounter Results ANE NEURAXIAL UPDATED (12/11/2013 12:43 PM EDT) Narrative Felipe Vee MD - 12/11/2013 12:43 PM EDT Felipe Vee MD ? 12/11/2013 12:43 PM Procedure: ??Right Adductor canal block Block: Post-op Pain Control, saphenous n erve block/mid thigh Start time: 12/11/2013 9:04 AM End time: 12/11/2013 9:16 AM This patient was greeted in the block ro om and the risks and benefits of the anesthetic block were re viewed. ??The risks of infection, bleeding, local anesthetic to xicity, and nerve injury were discussed. ??Specifically, the appr oximate risk of nerve injury (07/2999-07/4999) including neuropa thy, loss of sensation and motor function, whether permanent or temporary, was discussed as well as the fact that post-surgical n erve injury can be unrelated to the actual injection and ma y be related to intra-operative issues such as positioni ng and tourniquet usage. ?? The anesthetic consent was obtained. The timeout was performed prior to procedure start. ??Standard ASA monitors were applied. Indication/Prep Position: supine Prep: chlorhexidine Laterality: right Ultrasound Guidance: live and in-plane Skin Medication lidocaine 1% 4 ml Injection Injection technique:single-shot Needle Length: 10 cm Gauge: 21 Needle Type: Medication injection made incrementally with aspirations. Nerve infiltration solution through a ne edle Ropivicaine 0.5% 30 mL Performed by: ??Nanda Supervising Attending/Fellow: ??Julio César ~~~~~~~~~~~~~~~~~~~~~~~~~~~~~~~~~~~~~~~~ ~~~~~~~~~~~~~~~~~~~~ Procedure: ?? Neuraxial Block Primary Anesthetic Type: Spinal The patient was greeted; the risks and b enefits were reviewed. ?? The anesthetic consent was obtained. ??T he medical history and chart were reviewed. ??The timeout was p erformed. Start time: 12/11/2013 10:47 AM End time: 12/11/2013 10:55 AM Patient Location: Operating Room Patient Prep Position: Sitting Prep: Hand Hygiene, Hat, Mask, Sterile G loves, Chlorhexidine and Patient Draped Injection technique: single-shot Skin Anesthetic Lidocaine 1% ??5 ml Procedure Technique Level of needle insertion: L4-5 Needle approach: midline Needle Type: [facility] Gauge: 25 Needle length: 5 in Needle insertion depth when ANA achieved : 5 cm Number of attempts: 1 Intrathecal Injection The patient received the following medic ation/s as an intrathecal injection: Bupivacaine 0.75% w dextrose 2 ml Epinephrine ??Epi Wash Events/Notes Events: ??None Performed by: ??Thaddeus Angela Supervising Attending/Fellow: ??Thaddeus Angela ~~~~~~~~~~~~~~~~~~~~~~~~~~~~~~~~~~~~~~~~ ~~~~~~~~~~~~~~~~~~~~ Procedure Note Felipe Vee MD - 12/11/2013 9:16 A M EDT Procedure: Right Adductor canal block Block: Post-op Pain Control, saphenous n erve block/mid thigh Start time: 12/11/2013 9:04 AM End time: 12/11/2013 9:16 AM This patient was greeted in the block ro om and the risks and benefits of the anesthetic block were reviewed. The risks of infection, bleeding, local anesthetic toxicity, and nerve injury were discussed. Specifically, the approximate risk of nerve injury (1/ 3000-07/4999) including neuropathy, loss of sensation and motor function, whether permanent or temporary, was discussed as well as the fact that post-surgical nerve injury can be unrelated to the actual injection and ma y be related to intra-operative issues such as positioning and tourniquet usage. The anesthetic consent was obtained. The timeout was performed prior to procedure start. Standard ASA monitors were applied. Indication/Prep Position: supine Prep: chlorhexidine Laterality: right Ultrasound Guidance: live and in-plane Skin Medication lidocaine 1% 4 ml Injection Injection technique:single-shot Needle Length: 10 cm Gauge: 21 Needle Type: Medication injection made incrementally with aspirations. Nerve infiltration solution through a ne edle Ropivicaine 0.5% 30 mL Performed by: Nanda Supervising Attending/Fellow: Julio César ~~~~~~~~~~~~~~~~~~~~~~~~~~~~~~~~~~~~~~~~ ~~~~~~~~~~~~~~~~~~~~ Procedure: Neuraxial Block Primary Anesthetic Type: Spinal The patient was greeted; the risks and b enefits were reviewed. The anesthetic consent was obtained. The medical history and chart were reviewed. The timeout was performed. Start time: 12/11/2013 10:47 AM End time: 12/11/2013 10:55 AM Patient Location: Operating Room Patient Prep Position: Sitting Prep: Hand Hygiene, Hat, Mask, Sterile G loves, Chlorhexidine and Patient Draped Injection technique: single-shot Skin Anesthetic Lidocaine 1% 5 ml Procedure Technique Level of needle insertion: L4-5 Needle approach: midline Needle Type: [facility] Gauge: 25 Needle length: 5 in Needle insertion depth when ANA achieved : 5 cm Number of attempts: 1 Intrathecal Injection The patient received the following medic ation/s as an intrathecal injection: Bupivacaine 0.75% w dextrose 2 ml Epinephrine Epi Wash Events/Notes Events: None Performed by: Thaddeus Angela Supervising Attending/Fellow: Thaddeus villafana ~~~~~~~~~~~~~~~~~~~~~~~~~~~~~~~~~~~~~~~~ ~~~~~~~~~~~~~~~~~~~~ Forrest Norton LOCOMOTIVE INSPECTOR RETAIL PRESENTATION SPECIALIST [facility] Anesthesia Block (12/11/2013 12:43 PM EDT) Narrative Felipe Vee MD - 12/11/2013 12:43 PM EDT Felipe Vee MD ? 12/11/2013 12:43 PM Procedure: ??Right Adductor canal block Block: Post-op Pain Control, saphenous n erve block/mid thigh Start time: 12/11/2013 9:04 AM End time: 12/11/2013 9:16 AM This patient was greeted in the block ro om and the risks and benefits of the anesthetic block were re viewed. ??The risks of infection, bleeding, local anesthetic to xicity, and nerve injury were discussed. ??Specifically, the appr oximate risk of nerve injury (07/2999-07/4999) including neuropa thy, loss of sensation and motor function, whether permanent or temporary, was discussed as well as the fact that post-surgical n erve injury can be unrelated to the actual injection and ma y be related to intra-operative issues such as positioni ng and tourniquet usage. ?? The anesthetic consent was obtained. The timeout was performed prior to procedure start. ??Standard ASA monitors were applied. Indication/Prep Position: supine Prep: chlorhexidine Laterality: right Ultrasound Guidance: live and in-plane Skin Medication lidocaine 1% 4 ml Injection Injection technique:single-shot Needle Length: 10 cm Gauge: 21 Needle Type: Medication injection made incrementally with aspirations. Nerve infiltration solution through a ne edle Ropivicaine 0.5% 30 mL Performed by: ??Nanda Supervising Attending/Fellow: ??Julio César ~~~~~~~~~~~~~~~~~~~~~~~~~~~~~~~~~~~~~~~~ ~~~~~~~~~~~~~~~~~~~~ Procedure: ?? Neuraxial Block Primary Anesthetic Type: Spinal The patient was greeted; the risks and b enefits were reviewed. ?? The anesthetic consent was obtained. ??T he medical history and chart were reviewed. ??The timeout was p erformed. Start time: 12/11/2013 10:47 AM End time: 12/11/2013 10:55 AM Patient Location: Operating Room Patient Prep Position: Sitting Prep: Hand Hygiene, Hat, Mask, Sterile G loves, Chlorhexidine and Patient Draped Injection technique: single-shot Skin Anesthetic Lidocaine 1% ??5 ml Procedure Technique Level of needle insertion: L4-5 Needle approach: midline Needle Type: [facility] Gauge: 25 Needle length: 5 in Needle insertion depth when ANA achieved : 5 cm Number of attempts: 1 Intrathecal Injection The patient received the following medic ation/s as an intrathecal injection: Bupivacaine 0.75% w dextrose 2 ml Epinephrine ??Epi Wash Events/Notes Events: ??None Performed by: ??Thaddeus Angela Supervising Attending/Fellow: ??Thaddeus Angela ~~~~~~~~~~~~~~~~~~~~~~~~~~~~~~~~~~~~~~~~ ~~~~~~~~~~~~~~~~~~~~ Procedure Note Felipe Vee MD - 12/11/2013 9:16 A M EDT Procedure: Right Adductor canal block Block: Post-op Pain Control, saphenous n erve block/mid thigh Start time: 12/11/2013 9:04 AM End time: 12/11/2013 9:16 AM This patient was greeted in the block ro om and the risks and benefits of the anesthetic block were reviewed. The risks of infection, bleeding, local anesthetic toxicity, and nerve injury were discussed. Specifically, the approximate risk of nerve injury (1/ 3000-07/4999) including neuropathy, loss of sensation and motor function, whether permanent or temporary, was discussed as well as the fact that post-surgical nerve injury can be unrelated to the actual injection and ma y be related to intra-operative issues such as positioning and tourniquet usage. The anesthetic consent was obtained. The timeout was performed prior to procedure start. Standard ASA monitors were applied. Indication/Prep Position: supine Prep: chlorhexidine Laterality: right Ultrasound Guidance: live and in-plane Skin Medication lidocaine 1% 4 ml Injection Injection technique:single-shot Needle Length: 10 cm Gauge: 21 Needle Type: Medication injection made incrementally with aspirations. Nerve infiltration solution through a ne edle Ropivicaine 0.5% 30 mL Performed by: Nanda Supervising Attending/Fellow: Julio César ~~~~~~~~~~~~~~~~~~~~~~~~~~~~~~~~~~~~~~~~ ~~~~~~~~~~~~~~~~~~~~ Procedure: Neuraxial Block Primary Anesthetic Type: Spinal The patient was greeted; the risks and b enefits were reviewed. The anesthetic consent was obtained. The medical history and chart were reviewed. The timeout was performed. Start time: 12/11/2013 10:47 AM End time: 12/11/2013 10:55 AM Patient Location: Operating Room Patient Prep Position: Sitting Prep: Hand Hygiene, Hat, Mask, Sterile G loves, Chlorhexidine and Patient Draped Injection technique: single-shot Skin Anesthetic Lidocaine 1% 5 ml Procedure Technique Level of needle insertion: L4-5 Needle approach: midline Needle Type: [facility] Gauge: 25 Needle length: 5 in Needle insertion depth when ANA achieved : 5 cm Number of attempts: 1 Intrathecal Injection The patient received the following medic ation/s as an intrathecal injection: Bupivacaine 0.75% w dextrose 2 ml Epinephrine Epi Wash Events/Notes Events: None Performed by: Thaddeus Angela Supervising Attending/Fellow: Thaddeus villafana ~~~~~~~~~~~~~~~~~~~~~~~~~~~~~~~~~~~~~~~~ ~~~~~~~~~~~~~~~~~~~~ Felipe Vee MD RETAIL PRESENTATION SPECIALIST [facility] documented in this encounter Visit Diagnoses Not on filedocumented in this encounter Administered Medications Inactive Administered Medications - up to 3 most recent administrations Medication Order MAR Action Action Date Dose Rate Site ceFAZolin (ANCEF) 1g in dextrose 5% Given 12/11/2013 10:57 AM ED T 2 g 50mL PRN, Starting on Wed12/11/13 at 1057, Until Wed12/11/13 at 1304, Administer over 30 Minutes, Anesthesia Intra-op lactated ringers infusion 1,000 mL New Bag 12/11/2013 11:44 AM EDT mL 1,000 mL, at 100 mL/hr, Intravenous, CONTINUOUS, Starting on Wed12/11/13 at 0930, Until Wed12/11/13 at 1432, Day of Surgery (Day of Procedure) New Bag 12/11/2013 10:42 AM EDT mL propofol (DIPRIVAN) Rate/Dose 12/11/2013 12:15 35 mcg/kg/min 23.9 mL /hr infusion Change PM EDT CONTINUOUS PRN, Starting on Wed12/11/13 at 1106, Until Wed12/11/13 at 1304, Anesthesia Intra-op, Routine New Bag 12/11/2013 11:06 AM EDT 50 mcg/kg/min 34.2 mL/hr tranexamic acid (CYKLOKAPRON) 100 mg/mL Given 12/11/2013 10:46 A M EDT 1,660 mg bolus injection (Anesthesia) PRN, Starting on Wed12/11/13 at 1046, Until Wed12/11/13 at 1304, Anesthesia Intra-op, Routine documented in this encounter Care Teams Office Agent Relationship Specialty Start Date End Date Candace Avery, MELISSA PCP - General 04/03/11 01/17/15 [address] [place] [address] documented as of this encounter
--- OUTSIDE RECORDS SUMMARY | 2022-01-28 01:20 | XMS_ITS | Encounter Summary ---
:1945 Author Organization [facility] [place] [address] Care Team Providers Name Role Phone Candace Avery MELISSA Primary Care Provider Reason for Visit Reason Comments Aftercare Of Tjr right tka 12/11/13 Encounter Details Date Type Department Care Team Description 01/25/2014 Office Visit Orthopaedics at [facility] Chandra Del Rosario S/Frank total knee [facility] MD Taran arthroplasty, right [facility] (Primary Dx) [place] [address] CENTER [phone] ORTHOPAEDIC SURGERY [place], [place] [address] Social History Tobacco Use Types Packs/Day Years Used Date Never Smoker Smokeless Tobacco: Never Used Alcohol Use Standard Drinks/Week Comments No 0 (1 standard drink = 0.6 oz pure alcoho l) Sex Assigned at Date Recorded Not on file documented as of this encounter Last Filed Vital Signs Vital Sign Reading Time Taken Comments Blood Pressure 143/63 01/25/2014 10:20 AM EDT Pulse 65 01/25/2014 10:20 AM EDT Temperature - - Respiratory Rate - - Oxygen Saturation - - Inhaled Oxygen Concentration - - Weight 103.4 kg (228 lb) 01/25/2014 10:20 AM EDT Height 170.2 cm (5' 7) 01/25/2014 10:20 AM EDT Body Mass Index 35.71 01/25/2014 10:20 AM EDT documented in this encounter Progress Notes Pb Schroeder PA - 01/25/2014 10:22 AM EDT Patient Name: Corona Romo : 1945 MR#: [id number] Case Date: 12/11/2013 Surgeon: Surgeon(s) and Role: * Chandra Del Rosario MD - Primary * Pb Schroeder PA - Physician Cane Stripper Preoperative diagnosis: RIGHT TKA Postoperative diagnosis: RIGHT TKA Procedure(s): @TOTAL KNEE ARTHROPLASTY MODIFIER PFC STABILIZED FIXED MODULAR DEPUY HPI: Corona Romo is a very pleasant 68 y.o. year-old male who presents for a 5 week follow-up of the above procedure. The patient has been doing very well and his pain is markedly improved over preoperative status. Currently taking Tylenol for analgesia and applying ice intermittently, with good effect. No fevers, chills, nausea, vomiting, or symptoms of infection. Sleep has poor and appetite has been improving. Corona has been ambulating with crutches and working with PT. his course of coumadin has been completed and is currently taking ASA 325 mg twice daily for DVT prophylaxis. Physical Exam: Well-appearing male in no acute distress. Alert and Oriented x 3 and answers all questions appropriately. The incision is well healed, with no signs of infection. Calves soft, non tender. Post Op Right Knee Exam: Gait Abnormality: Normal Knee ROM: Extension:0 Flexion: 100 Alignment: 0-4 degrees Neutral Stability: A/P Translation <5mm. Varus <5mm Valgus <5mm Extension La degrees or less Patella Tracking: Normal Pulses Palpable: Right PT: Yes Right DP:Yes Motor/Sensory: Distal Motor: Normal Distal Sensory: Normal Quadriceps Strength: 4 X-RAYS: X-rays show a well-placed prosthesis with no evidence of fracture or loosening. ASSESSMENT/PLAN: 5 weeks post-op and doing well. Continue weightbearing as tolerated and working on range of motion, and we will see him back in 8 weeks for repeat examination. No x-rays will be neededat that time. Patient may return to normal activities as his pain and function allow. We discussed that he should continue to work on patellar mobilization, scar massage and deep tissue massage. The patient has a chipped tooth and needs to see the dentist, we discussed the appropriate precautions surrounding dental prophylaxis. I stressed that he should avoid elective dental procedures for thefirst 6 months after surgery and then call the office for a prescription prior to any further dentalwork for the lifetime of the joint replacement. We also discussed maintaining good foot care and giving prompt attention to any source of infection throughout the body including foot ulcers and urinarytract infections. The patient was seen and the plan was formulated in conjunction with Dr. Del Rosario. documented in this encounter Plan of Treatment Upcoming Encounters Date Type Specialty Care Team Description 03/12/2022 Appointment Cardiology Diane Garcia APRN [facility] CARDIOLOGY [place], [place] [address] (Wo rk) documented as of this encounter Visit Diagnoses Diagnosis S/P total knee arthroplasty, right - Ainsley sherie documented in this encounter Care Teams Storage Wharfage Clerk Relationship Specialty Start Date End Date Candace Avery APRN PCP - General 04/03/11 01/17/15 CAROLYN [address] [place] [address] documented as of this encounter
--- OUTSIDE RECORDS SUMMARY | 2022-01-28 01:20 | XMS_ITS | Encounter Summary ---
:1945 Author Organization [facility] [place] [address] Care Team Providers Name Role Phone Satnam Barnes MD Primary Care Provider Reason for Visit Reason Comments Aftercare Of Tjr 12/11/13 RT TKA Postop Encounter Details Date Type Department Care Team Description 02/07/2015 Office Visit Orthopaedics at [facility] Chandra Del Rosario Status post total right knee replacement; [facility] MD Taran History of total knee arthroplasty, [place] [address] CENTER [phone] ORTHOPAEDIC SURGERY [place] [address] Social History Tobacco Use Types Packs/Day Years [...] Sign Reading Time Taken Comments Blood Pressure 162/68 02/07/2015 3:42 PM EDT Pulse 53 02/07/2015 3:42 PM EDT Temperature - - Respiratory Rate - - Oxygen Saturation - - Inhaled Oxygen Concentration - - Weight 113.8 kg (250 lb 14.4 02/07/2015 3:42 PM fully c lothed oz) EDT Height 175.3 cm (5' 9) 02/07/2015 3:42 PM verbal EDT Body Mass Index 37.05 02/07/2015 3:42 PM EDT documented in this encounter Progress Notes Sun Chang APRN - 02/07/2015 4:09 PM EDT Patient Name: Corona Romo : 1945 MR#: [id number] Case Date: 12-11-2013 Surgeon: Sadie Del Rosario Procedure: right total knee replacement HPI: Corona Romo is a very pleasant 69 y.o. year-old male who presents for a 1 year follow-up of the above procedure. The patient has been doing very well and his pain is markedly improved over preoperative status. No fevers, chills, nausea, vomiting, or symptoms of infection. He did develop a rash over the left lower leg, for which his is 9 years PO from TKA, approximately 1 week ago after pickingEmbedster. There has been no drainage, but the rash is mildly itchy. Corona has been ambulating with no assistive device. He is extremely happy with his outcome and states he can now play with his grandchildren without pain, which also makes him very pleased. Physical Exam: Well-appearing male in no acute [...] patient's bilateral knees taken today, which reveal the following: IMPRESSION: Status post bilateral total knee arthroplasties with hardware in place and without evidence of hardware complication, with unchanged alignment as compared to the prior exam. ASSESSMENT/PLAN: 1 year post-op right TKA and 9 year post-op left TKA and doing well. Papular erythematous rash present on LLE. No signs or symptoms of infection. Advised pt to see PCP ANGIE for evaluation and treatment. Otherwise, the patient will continue weightbearing as tolerated and working on range of motion, and we will see him back in 1 year for repeat examination. X-rays will be needed at that time. Patient [...] urinary tract infections. Signed: SUN CHANG APRN 02/07/2015 documented in this encounter Plan of Treatment Upcoming Encounters Date Type Specialty Care Team Description 03/12/2022 Appointment Cardiology Diane Garcia APRN [facility] C[facility]OLOGY [place], [place] [address] (Wo rk) documented as of this encounter Visit Diagnoses Diagnosis Status post total right knee replacement History of total knee arthroplasty, left documented in this encounter Care Teams Aircraft Powerplant Repairer Relationship Specialty Start Date End Date Satnam Barnes MD PCP - General 02/07/15 07/11/19 documented as of this encounter
--- OUTSIDE RECORDS SUMMARY | 2022-01-28 01:20 | XMS_ITS | Encounter Summary ---
:1945 Author Organization [facility] Address [address] [facility] [address] [place] [address] Care Team Providers Name Role Phone Satnam Barnes MD Primary Care Provider Encounter Details Date Type Department Care Team Description 02/07/2015 Hospital Encounter XRay at [facility] Knee joint replacement [address] [place] [address] Social History Tobacco Use Types Packs/Day [...] (SYMBICORT) 160-4.5 lungs. mcg/actuation HFA Aerosol Inhaler amoxicillin (AMOXIL) 500 Take 500 mg by [...] 1 (VEETID) 500 mg tablet amLODIPine (NORVASC) 2.5 Take 2.5 mg by 0 015 11/18/2015 mg Tablet mouth daily. doxazosin (CARDURA) 2 mg [...] Team Description 03/12/2022 Appointment Cardiology Diane Garcia, TOLL COLLECTOR [facility] CARDIOLOGY [place], [place] [address] (Wo rk) documented as of this encounter Procedures Procedure Name Priority Date/Time Associated Diagnosis Comme nts XR KNEE DIAGNOSTIC 1 Routine 02/07/2015 2:35 PM Knee joint R esults for this OR 2 VIEW EDT replacement by other procedu re are in means the results section. documented in this encounter Results XR knee diagnostic 1 or 2 view (02/07/2015 2:35 PM EDT) Anatomical Region Laterality Modality Knee N/A Radiographic Imaging Specimen (Source) Anatomical Collection Method Collection Time Re ceived Time Location / / Volume Laterality 02/07/2015 2:35 PM EDT Impressions 02/07/2015 4:51 PM EDT IMPRESSION: Status post bilateral total knee arthrop lasties with hardware in place and without evidence of hardware complicatio n, with unchanged alignment as compared to the prior exam. This report was reviewed by Saul Chun at 02/07/2015 4:45 PM Film and interpretation reviewed by the attending Narrative 02/07/2015 4:51 PM EDT EXAMINATION: KNEE 1 OR 2 VIEWS/RIGHT CLINICAL HISTORY: RIGHT TKA TECHNIQUE: Standing AP radiograph of the bilateral knees, and lateral radiograph of the right knee COMPARISON: Standing alignment, standing AP and sunrise radiographs of the bilateral knees, and lateral radiograph of the right knee dated January 25, 2014. FINDINGS: As noted in prior studies, the patient i s status post bilateral total knee arthroplasties, most recently on the rig ht. Hardware is in place in the bilateral knees without evidence of hard pearson complication. The alignment is unchanged from the prior exam. There are no osseous destructive lesions appreciated. There is an enthesophyte no denia at the superior aspect of the right patella, unchanged from the prior study. There is also a small area of hypodensity at the superior posterior as pect of the right patella, likely representing a heterotopic ossification site. There is a region of calcification posterior to the right femur, likely rep resenting vascular calcifications. No effusion is appreciated. There is an are a of heterotopic bone formation at the left lateral femoral condyle, relatively unchanged when compared to the prior radiograph. Procedure Note Saul Chun MD - 02/07/2015 EXAMINATION: KNEE 1 OR 2 VIEWS/RIGHT CLINICAL HISTORY: RIGHT TKA TECHNIQUE: Standing AP radiograph of the bilateral knees, and lateral radiograph of the right knee COMPARISON: Standing alignment, standing AP and sunrise radiographs of the bilateral knees, and lateral radiograph of the right knee dated January 25, 2014. FINDINGS: As noted in prior studies, the patient i s status post bilateral total knee arthroplasties, most recently on the rig ht. Hardware is in place in the bilateral knees without evidence of hard pearson complication. The alignment is unchanged from the prior exam. There are no osseous destructive lesions appreciated. There is an enthesophyte no denia at the superior aspect of the right patella, unchanged from the prior study. There is also a small area of hypodensity at the superior posterior as pect of the right patella, likely representing a heterotopic ossification site. There is a region of calcification posterior to the right femur, likely rep resenting vascular calcifications. No effusion is appreciated. There is an are a of heterotopic bone formation at the left lateral femoral condyle, relatively unchanged when compared to the prior radiograph. IMPRESSION IMPRESSION: Status post bilateral total knee arthrop lasties with hardware in place and without evidence of hardware complicatio n, with unchanged alignment as compared to the prior exam. This report was reviewed by Saul Chun at 02/07/2015 4:45 PM Film and interpretation reviewed by the attending Chandra Del Rosario MD IMG DX ORDERABLES documented in this encounter Visit Diagnoses Diagnosis Knee joint replacement by other means documented in this encounter Care Teams Client Integration Manager Relationship Specialty Start Date End Date Satnam Barnes MD PCP - General 02/07/15 07/11/19 documented as of this encounter
--- OUTSIDE RECORDS SUMMARY | 2022-01-28 01:20 | XMS_ITS | Encounter Summary ---
:1945 Author Organization [facility] Address [address] [facility] [address] [place] [address] Care Team Providers Name Role Phone Candace Avery CONTINUITY PERSON Primary Care Provider Reason for Visit Reason Onset Date Comments Anticoagulation 01/01/2014 INR Results Encounter Details Date Type Department Care Team Description 01/01/2014 Telephone Internal Medicine at Candace Avery A nticoagulation ([facility] CONTINUITY PERSON Results) [address] CAROLYN [address] [place] [address] [address] [phone] [place] [address] Social History Tobacco Use Types Packs/Day Years Used Date Never Smoker Smokeless Tobacco: Never Used Alcohol Use Standard Drinks/Week Comments No 0 (1 standard drink = 0.6 oz pure alcoho l) Sex Assigned at Date Recorded Not on file documented as of this encounter Miscellaneous Notes Telephone Encounter - Marycarmen Eugene - 01/01/2014 11:22 AM EDT INR -2.2 [place] [facility] documented in this encounter Plan of Treatment Upcoming Encounters Date Type Specialty Care Team Description 03/12/2022 Appointment Cardiology Diane Garcia, CONTINUITY PERSON [facility] C[facility]IOLOGY [place], [place] [address] (Wo rk) documented as of this encounter Visit Diagnoses Not on filedocumented in this encounter Care Teams Rural Mail Carrier Relationship Specialty Start Date End Date Candace Avery APRN PCP - General 04/03/11 01/17/15 CAROLYN [address] [place] [address] documented as of this encounter
--- OUTSIDE RECORDS SUMMARY | 2022-01-28 01:20 | XMS_ITS | Encounter Summary ---
:1945 Author Organization [facility] [place] [address] Care Team Providers Name Role Phone Candace Avery CHAIRMAN & CEO Primary Care Provider Reason for Visit Reason Onset Date Comments Anticoagulation 12/28/2013 INR Results Encounter Details Date Type Department Care Team Description 12/28/2013 Telephone Orthopaedics at [facility] Candace Avery, Anticoagulation ([facility] CHAIRMAN & CEO Results) Drive [address] [address] [address] [phone] [place] [address] Social History Tobacco Use Types Packs/Day Years Used Date Never Smoker Smokeless Tobacco: Never Used Alcohol Use Standard Drinks/Week Comments No 0 (1 standard drink = 0.6 oz pure alcoho l) Sex Assigned at Date Recorded Not on file documented as of this encounter Miscellaneous Notes Telephone Encounter - Paulina Rajput RN - 12/28/2013 10:15 AM EDT Please see anticoagulation encounter. Telephone Encounter - Marycarmen Eugene - 12/28/2013 10:09 AM EDT Patient called in INR results 2.2 documented in this encounter Plan of Treatment Upcoming Encounters Date Type Specialty Care Team Description 03/12/2022 Appointment Cardiology Diane Garcia, CHAIRMAN & CEO [facility] [place], [place] [address] (Wo rk) documented as of this encounter Visit Diagnoses Not on filedocumented in this encounter Care Teams Pantographer Relationship Specialty Start Date End Date Candace Avery CHAIRMAN & CEO PCP - General 04/03/11 01/17/15 CAROLYN [address] [place] [address] documented as of this encounter
--- OUTSIDE RECORDS SUMMARY | 2022-01-28 01:20 | XMS_ITS | Encounter Summary ---
:1945 Author Organization [facility] Address [facility] [place] [address] Care Team Providers Name Role Phone Candace Avery MELISSA Primary Care Provider Encounter Details Date Type Department Care Team Description 01/23/2014 Orders Only Orthopaedics at [facility] Chandra Del Rosario, Status post right [facility] MD knee replacement [facility] (Primary Dx) [place] [address] ORTHOPAEDIC SURGERY [place], [place] [address] Social History Tobacco Use Types Packs/Day Years Used Date Never Smoker Smokeless Tobacco: Never Used Alcohol Use Standard Drinks/Week Comments No 0 (1 standard drink = 0.6 oz pure alcoho l) Sex Assigned at Date Recorded Not on file documented as of this encounter Plan of Treatment Upcoming Encounters Date Type Specialty Care Team Description 03/12/2022 Appointment Cardiology Diane Garcia APRN [facility] CARDIOLOGY [place], [place] [address] (Wo rk) documented as of this encounter Results XR TKA first PO visit alignment AP LAT [place] (01/25/2014 10:00 AM EDT) Anatomical Region Laterality [...] Diagnoses Diagnosis Status post right knee replacement - Ainsley sherie Status post right knee replacement documented in this encounter Care Teams Dye Tub Tender Relationship Specialty Start Date End Date Candace Avery, COSTUMED CHARACTER PCP - General 04/03/11 01/17/15 CAROLYN [address] [place] [address] documented as of this encounter
--- OUTSIDE RECORDS SUMMARY | 2022-01-28 01:20 | XMS_ITS | Encounter Summary ---
:1945 Author Organization [facility] [place] [address] Care Team Providers Name Role Phone Bennie Candace Blanc APRN Primary Care Provider Encounter Details Date Type Department Care Team Description 11/30/2013 Clinical Support Same Day at [facility] [place] [address] Social History Tobacco Use Types Packs/Day Years Used Date Never Smoker Smokeless Tobacco: Never Used Alcohol Use Standard Drinks/Week Comments No 0 (1 standard drink = 0.6 oz pure alcoho l) Sex Assigned at Date Recorded Not on file documented as of this encounter Last Filed Vital Signs Vital Sign Reading Time Taken Comments Blood Pressure - - Pulse 65 11/30/2013 10:34 AM EDT Temperature - - Respiratory Rate - - Oxygen Saturation 97% 11/30/2013 10:34 AM EDT Inhaled Oxygen Concentration - - Weight 113.9 kg (251 lb) 11/30/2013 10:34 AM EDT Height 170.8 cm (5' 7.25) 11/30/2013 10:34 AM EDT Body Mass Index 39.02 11/30/2013 10:34 AM EDT documented in this encounter Progress Notes Sharona Pringle RN - 11/30/2013 11:53 AM EDT Questionnaire reviewed with patient, no complaints of post-anesthesia complications. 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 No treatment at the time, cardiac cath since was clean. Patient reports anepisode of HTN with his surgery, he is on medication at present, but BP is not well controlled. Diabetes with HgbA1C of 6.2. Labs drawn, EKG from 10/11/13. DOS is 12/11/[address] Del Rosario. Paulina Joy RN - 11/30/2013 11:52 AM EDT Patient seen in Pre Admission Testing. Reviewed Frailty Study consent with patient. Pt had ample time to review consent and ask questions. Reviewed study goals with patient. Consent signed, dated and timed. Copy of consent was given to patient. Frailty Index assessment done.. Consent scanned into edh.Assessment data entered into [employer] External site. All hard copies kept. documented in this encounter Plan of Treatment Upcoming Encounters Date Type Specialty Care Team Description 03/12/2022 Appointment Cardiology Diane Garcia APRN [facility] C[facility] [place], [place] [address] (Wo rk) documented as of this encounter Visit Diagnoses Not on filedocumented in this encounter Care Teams Project Developer Relationship Specialty Start Date End Date Candace Avery APRN PCP - General 04/03/11 01/17/15 CAROLYN [address] [place] [address] documented as of this encounter
--- OUTSIDE RECORDS SUMMARY | 2022-01-28 01:20 | XMS_ITS | Encounter Summary ---
:1945 Author Organization [facility] [place] [address] Care Team Providers Name Role Phone DaveFavian quinoneschaitanya Blanc APRN Primary Care Provider Encounter Details Date Type Department Care Team Description 11/28/2014 Orders Only Orthopaedics at [facility] Chandra Del Rosario, Knee joint [facility] [place] [address] ORTHOPAEDIC SURGERY [place], [place] [address] Social History Tobacco Use Types Packs/Day Years Used Date Never Smoker Smokeless Tobacco: Never Used Alcohol Use Standard Drinks/Week Comments No 0 (1 standard drink = 0.6 oz pure alcoho l) Sex Assigned at Date Recorded Not on file documented as of this encounter Plan of Treatment Upcoming Encounters Date Type Specialty Care Team Description 03/12/2022 Appointment Cardiology Diane Garcia APRN [facility] CARDIOLOGY [place], [place] [address] (Wo rk) documented as of this encounter Results XR knee diagnostic 1 [...] Diagnosis Knee joint replacement by other means Knee joint replacement by other means documented in this encounter Care Teams Site Acquisition Manager Relationship Specialty Start Date End Date Candace Avery, TUBER OPERATOR PCP - General 04/03/11 01/17/15 CAROLYN [address] [place] [address] documented as of this encounter
--- OUTSIDE RECORDS SUMMARY | 2022-01-28 01:20 | XMS_ITS | Encounter Summary ---
:1945 Author Organization [facility] [place] [address] Care Team Providers Name Role Phone Candace Avery CASH CONTROL SPECIALIST Primary Care Provider Encounter Details Date Type Department Care Team Description 11/30/2013 Office [place] [address] Social History Tobacco Use Types Packs/Day [...] Cardiology Diane Garcia APRN [facility] [address] [place], [place] [address] (Wo rk) documented as of this encounter Visit Diagnoses Not on filedocumented in this encounter Care Teams Parts Counterman Relationship Specialty Start Date End Date Candace Avery, CASH CONTROL SPECIALIST PCP - General 04/03/11 01/17/15 CAROLYN [address] [place] [address] documented as of this encounter
--- OUTSIDE RECORDS SUMMARY | 2022-01-28 01:20 | XMS_ITS | Encounter Summary ---
:1945 Author Organization [facility] [place] [address] Care Team Providers Name Role Phone Candace Braga APRN Primary Care Provider Encounter Details Date Type Department Care Team Description 12/11/2013 Surgery Main Operating Room Juan Jose Del Rosario, TO MARY KNEE ARTHROPLASTY Concepcion Silva MD (WRVU 20.72) [facility] [address] [place] [address] [place] [id number] [phone] (Wo rk) Social History Tobacco Use Types Packs/Day Years Used Date Never Smoker Smokeless Tobacco: Never Used Alcohol Use Standard Drinks/Week Comments No 0 (1 standard drink = 0.6 oz pure alcoho l) Sex Assigned at Date Recorded Not on file documented as of this encounter Last Filed Vital Signs Vital Sign Reading Time Taken Comments Blood Pressure 136/69 12/14/2013 8:37 AM EDT Pulse 59 12/14/2013 9:34 AM EDT Temperature 37 ??C (98.6 ??F) 12/14/2013 9:34 AM EDT Respiratory Rate 19 12/14/2013 9:34 AM EDT Oxygen Saturation 97% 12/14/2013 9:34 AM EDT Inhaled Oxygen Concentration - - Weight 113.4 kg (250 lb) 12/11/2013 10:43 PM EDT Height 170.8 cm (5' 7.25) 12/11/2013 10:43 PM EDT Body Mass Index 38.86 12/11/2013 10:43 PM EDT documented in this encounter Discharge Instructions Discharge InstructionsSantoraElana Frank, MELISSA - 12/14/2013 12:38 PM EDT Activity: You can weight bear as tolerated on your Right leg remembering to use a walker or crutchesat all times for balance and protection. Flexion AND extension are important to work on at home. Youshould NOT place a pillow under your knee. To help with extension you can place a pillow under your heel or lower leg or placed lengthwise along the leg. Again DO NOT place a pillow under the operated knee for comfort. You should wear the DINAH hose to knee bilaterally until you are seen in followup. Remove these at least once per day to inspect your skin. Coumadin flow sheet: Date Notes INR Coumadin dose (mg) 6/2 day of operation 5 mg 6/3 POD 1 1.1 5mg 6/4 POD 2 1.2 Lovenox 40 + 7.5 mg 6/5 DC /POD 3 1.4 Lovenox 40(given) + 7.5 mg-take at 5pm today Anti-coagulation follow up: (for home bound pts) 1. You should take 7.5 mg (1.5 of the 5mg pills) of Coumadin today. Take this medication at the sametime each day - usually 5pm. 2. Your coumadin level or INR target range is 2-3 and this will need to be checked by the VisitingNurse on the day after discharge and at least twice per week thereafter (usually every Wednesday and ). The INR should be reported to the [facility] Ortho clinic at [phone], and you will be informed of any needed changes in your Coumadin dose. 3. If your INR level is ever above 3.5 you should not participate in aggressive Physical therapy exercises - you can mobilize/ambulate. This will decrease the possibility of more bleeding into your joint. Once your INR is less than 3.5 you can resume Physical therapy. One of the Orthopedic nurses willcall you with further instructions as needed. 4. You will be on Coumadin for 4 weeks. On January 08, STOP the Coumadin and begin Aspirin 325mg twice a day until you are seen in followup with your orthopedic surgeon. Take aspirin with food. Diet: Resume usual diet, but increase your intake of fluids and fiber while you are on narcotic painmeds to prevent constipation Driving: DO NOT DRIVE until you are cleared to do so by your Orthopedic surgeon. You should not drive if you are on narcotic pain meds as these can affect your judgement and reaction time. Call your surgeon with any questions. Medication: 1. The pain medication that you are using Oxycodone can cause constipation, so make sure you increase your intake of fluids and fiber while you are on them. You should also take the stool softener thatwas ordered, sennakot, to factilitate a bowel movement. An vnip-xuz-ckjqmem medication, miralax can also be used if needed to combat constipation 2. If you need a renewal on your narcotic pain medication, you need to give the Orthopedic clinic enough time to process your request. This can take up to three days, so plan accordingly. 3. You have been discharged on a short acting narcotic. You will be on this medication for a limitedperiod of time only. Taper off these medications as indicated on your prescription. Take the smallest dose necessary to control your pain. Decrease dose and increase time between doses as pain management improves. 4. Continue the tylenol around the clock for the next 10 days (December 21) - it can be effective in controlling pain along with your other medications. After December 21, you may take tylenol as needed tohelp control the pain. DO NOT EXCEED 3000 MG Tylenol in a 24 hour period. Shower: 1. You can shower but remember your activity limitations and always have a chair available for balance and protection. DO NOT submerge the dressing/incision. 2. Do not let water run over the operative dressing. If it becomes wet lightly pat the dressing dry.When this operative dressing is removed you can let water gently run over the incision. DO NOT submerge the incision. No tub baths, pools, creeks, cooper, hot tubs, ponds, etc. 3. Uou have justine. Always cover them with a waterproof dressing or plastic bag when showering until 48 hours after they are removed. 4. After justine are removed you can let water run gently over the incision as long as there is no drainage. Wound (Mepilex): 1. Sutures: Staple removal 11-14 days after surgery (approximately December 25). 2. Remove your operative dressing 7 days from your surgery (December 18). When it is removed you can leave the incision open to air or cover it with a light dressing. Do not pull the dressing back to lookat the incision unless there is a problem. It will not re adhere to your skin. 3. If you have lots of drainage when you get home (and it is before December 18), remove this operativedressing and replace it with dry sterile gauze. Continue with daily dressing changes (and as needed)until the drainage stops, then remove the dressing and leave the incision open to air or lightly covered. FOLLOWUP APPOINTMENTS: 1. You will have followup appointments at [facility] as indicated in Future Appointments and Orders. Youwill have an xray prior to those appointments so please come to Radiology, desk 3T, 1 hour BEFORE your appointment for those x-rays. Future Appointments Date Time Provider Department Center 01/25/2014 10:20 AM Juan Jose Del Rosario MD [facility] None If you have questions or concerns: Wednesday through Wednesday, 8 AM- 5 PM, please call Dr. Del Rosario's office at . If it is after 5 PM or on the weekend, please call and ask for orthopedic resident on-call to be paged. documented in this encounter Medications at Time of Discharge [...] CARBONATE/VITAMIN D3 mouth daily. (VITAMIN D-3 ORAL) ferrous sulfate 325 mg Take 325 mg [...] mouth 0 11/18/2015 40 mg tablet daily. documented as of this encounter Progress Notes Apoorva Easley, RN - 12/14/2013 2:22 PM EDT Patient discharged to home with VNA services. IV removed, site benign. My assessment remains unchanged from my previous assessment. Patient denies chest pain and shortness of breath. Discussed pain management with patient, pain tolerable. Patient medicated prior to discharge. Patient has all belongings. Patient received discharge summary and prescriptions. These were reviewed. All questions answered.Patient encouraged to call with questions or concerns. Patient discharged to home with family. Discharge Summary was faxed, RN called report to VNA. Magaly Slaughter RN - 12/14/2013 12:35 PM EDT Met with pt and his again this am to discuss discharge plan. We discussed that rehab is recommended to improve strength and conditioning. Pt and decline need. we have plenty of help at home, the kids said they will step up.. Pt and anticipate discharge to home later today. Referral for [facility]. Obey Beltre PTA - 12/14/2013 10:30 AM EDT Physical Therapy Note Total Knee Arthroplasty Treatment # 3 Patient Profile: Pt. is a 68 y.o. male admitted on 12/11/2013 by Juan Jose Mojica MD for R TKA. PMH: Active Non-Hospital Problems Diagnosis ??? 12/11/2013 S/P Right total knee arthroplasty ??? Preop testing - TKR ??? Osteoarthritis of right knee ??? CAD (coronary artery disease) Chronic ??? Myocardial infarction, old Chronic ??? Lipid disorder Chronic ??? Hypertension Chronic ??? RJ (obstructive sleep apnea) Chronic ??? History of total knee arthroplasty(LEFT) ??? CIS - DJD ??? CIS - DM, Type II ??? CIS - Morbid obesity Past Medical History Diagnosis Date ??? CIS - DM, Type II 01/31/2009 PSH: Past Surgical History Procedure Date ??? Total knee arthroplasty 12/11/2013 @TOTAL KNEE ARTHROPLASTY performed by Juan Jose Del Rosario MD at [facility] MAIN OR Social History: Patient lives with his and cares for his 4 yo grandson a significant amount. 5 steps to enter and 1 flight to only bathroom. Precautions/Special Considerations: WBAT R L/E Post-operative course: Uneventful Subjective: Patient states ???I've been to rehab on three other occasions and I don't feel like theygive patients enough assistance. Their excuse is we don't have enough help, so I'm going to go home!?? Objective: Vitals: SpO2: WNL, HR WNL Most recent Hgb value: 11.3 Pain: Tolerable Functional Mobility: Supine><Sit with HOB flat, independent. Sit><Stand to and from a FWW, independent. Gait: Ambulated with a FWW, independent. Gait pattern: Step-to gait attempting to progress cautiously to reciprocal. Stair training: Pt ascended/descended 6 four inch steps with one crutch and rail, independent. Pt ascended/descended 6 four inch steps with 1 hand rail sideways, independent, following VC for technique. Pt states that an additional hand rail has been install to get into his home since his surgery. Today???s Treatment: 1. Therapeutic functional. 2. Performed 10 reps each ankle pumps, quad sets, short arc quads, seated heel slides, and long arc quads. 3. Nu-Step UE & LE flex/ext for 5 minutes. Informed Consent: The patient agrees to and understands the PT treatment plan and goals. Education: patient educated on Bed mobility, Transfers, Assistive device/technique, Exercise, Safety , Precautions/protocol, Gait , Role of therapy and Discharge planning and verbalizes understanding. Patient status, treatment, and mobility recommendations discussed with nursing staff. Assessment: Pt is POD# 3 R TKA. Pt demonstrated good tolerance and progress to functional bed mobility, transfers, gait, stair and exercise activities this morning. Pt transfers and moves slowly and cautiously secondary to other medical complications such as large supported shoes secondary to diabetes, drop foot/A FO. Pt has met hospital PT goals to home with family supervision assist and VNA/PT. Range of Motion: AROM R knee extension = approx -10 deg, flexion = approx 85 deg Ambulation distance: 150 feet Goals: (to be achieved by 12/12/13) Goal met? Yes No Pt will be knowledgeable of prescribed exercises. x Pt will demonstrate AROM knee extension 0-15 degrees and flexion 80-90 degrees x Pt will move supine<>sit ind. x Pt will move sit<>stand ind. x Pt will ambulate 150 feet using FWW ind x Pt will negotiate 1 flight stairs using 1 railing and 1 crutch, ind. x Discharge Recommendations: Patient will require 24/ supervision and assistance. Patient would benefit and tolerate continued daily intensive therapy interventions to maximize functional independence. Physical Therapist recommends: No other consults recommended at this time Plan: Pt has met hospital PT goals to home with family supervision assist and VNA/PT services when medically ready Equipment needs: needs Rolling walker. Total treatment time: 30 minutes Total timed treatment: 30 minutes OBEY BELTRE PTA Pager: [phone] Pb Schroeder PA - 12/14/2013 7:19 AM EDT Orthopaedic Surgery Inpatient Note Attending: Dr. Del Rosario Patient Name: Lisa Romo Age: 68 y.o. Surgery: Right Total Knee Arthroplasty Date of Surgery: 12/11/2013 Past Medical: Patient Active Problem List Diagnosis Code ??? CIS - DJD T999.0 ??? CIS - DM, Type II T999.0 ??? CIS - Morbid obesity T999.0 ??? History of total knee arthroplasty(LEFT) V43.65 ??? CAD (coronary artery disease) 414.00 ??? Myocardial infarction, old 412 ??? Lipid disorder 272.9 ??? Hypertension 401.9 ??? RJ (obstructive sleep apnea) 327.23 ??? Osteoarthritis of right knee 715.96 ??? Preop testing - TKR V72.84 ??? 12/11/2013 S/P Right total knee arthroplasty V43.65 Interim/Subjective: Pt. doing well. Likely going to rehab, so that he can be able to take care of self and who is having surgery in 2 weeks. Denies cp/sob/n/v. Good pain control. No acute issues. Vitals: Temp: [36.8 ??C (98.2 ??F)-37.6 ??C (99.7 ??F)] Heart Rate: [60-82] Resp: [16-20] BP: (120-169)/(43-109) SpO2: [95 %-98 %] Gen: awake, alert and appr, NAD Right LE: Dressing: clean, dry, and intact calves and thigh soft, appropriately tender Sensation intact SP/DP/T/S distr. Motor intact TA/GSC/EHL 5/5 2+DP pulse, regular rhythm Labs: Recent Results (from the past 24 hour(s)) POCT GLUCOSE Component Value Range POC Glucose 168 60 - 199 mg/dL POCT GLUCOSE Component Value Range POC Glucose 135 60 - 199 mg/dL POCT GLUCOSE Component Value Range POC Glucose 150 60 - 199 mg/dL POCT GLUCOSE Component Value Range POC Glucose 125 60 - 199 mg/dL POCT GLUCOSE Component Value Range POC Glucose 133 60 - 199 mg/dL BASIC METABOLIC PANEL (NON-FASTING) Component Value Range Glucose Lvl 151 60 - 199 mg/dL BUN 13 10 - 20 mg/dL Creatinine 1.04 0.80 - 1.50 mg/dL Sodium 138 135 - 145 mmol/L Potassium 3.4 (*) 3.5 - 5.0 mmol/L Chloride 97 (*) 98 - 107 mmol/L CO2 25 22 - 31 mmol/L Anion Gap 16 (*) 5 - 15 mmol/L Calcium 9.0 8.5 - 10.5 mg/dL Estimated GFR >60 >=60 PROTHROMBIN TIME Component Value Range PT 17.2 (*) 12.0 - 15.0 sec INR 1.4 (*) 0.9 - 1.1 HEMOGRAM Component Value Range WBC 9.2 4.0 - 10.0 x10(3)/mcL RBC 3.68 (*) 4.63 - 6.08 x10(6)/mcL Hemoglobin 11.3 (*) 13.7 - 17.5 gm/dL Hematocrit 33.5 (*) 40.0 - 51.0 % MCV 91.0 79.0 - 92.0 fL MCH 30.7 25.6 - 32.2 pg MCHC 33.7 32.0 - 36.5 gm/dL Platelets 152 145 - 370 x10(3)/mcL RDWSD 46.6 (*) 35.0 - 46.0 fL RDWCV 13.9 10.9 - 14.4 % MPV 11.3 9.0 - 12.0 fL DIFFERENTIAL, AUTOMATED Component Value Range Neutrophils % 74.9 (*) 34.0 - 71.0 % Neutr Abs (ANC) 6.86 (*) 1.50 - 6.30 x10(3)/mcL Lymphocytes % 10.9 (*) 19.0 - 53.0 % Lymphocytes Abs 1.0 1.0 - 3.6 x10(3)/mcL Monocytes % 13.7 (*) 4.0 - 13.0 % Monocyte Abs 1.3 (*) 0.2 - 1.0 x10(3)/mcL Eosinophils % 0.3 0.0 - 7.0 % Eosinophils Abs 0.0 0.0 - 0.5 x10(3)/mcL Basophils % 0.1 0.0 - 2.0 % Basophils Abs 0.0 0.0 - 0.2 x10(3)/mcL Immature Gran % 0.10 0.00 - 0.66 % Carolin Gran Abs 0.01 0.00 - 0.05 x10(3)/mcL NUCLEATED RED BLOOD CELLS Component Value Range nRBC % Auto 0.0 0.0 - 0.2 % nRBC Abs Auto 0.000 0.000 - 0.012 x10(3)/mcL POCT GLUCOSE Component Value Range POC Glucose 144 60 - 199 mg/dL x-rays: none new. Assessment: Lisa Romo 68 y.o. male s/p right TKA, POD#3, doing well post- operatively. Will continue to mobilize today. Recommendations: Weight bearing status of operative extremity: Weight bearing as tolerated Wound closure: [place] (remove 10-14 days) Dressing changes: Mepilex Silver (Do not remove for 7 days. Dry Dressings PRN after that) Follow-up Plan: As scheduled prior to surgery Anticoagulation: Coumadin 28 days folllowed by 2 weeks of Aspirin 325mg twice daily Antibiotics x 24h serena-operatively Any possible barriers to discharge: None Plan for hospital stay: Standard Anticipated Length of Stay: 3 days Dispo: Rehab likely Future Appointments Date Time Provider Department Center 01/25/2014 10:20 AM Juan Jose Del Rosario MD [facility] None Obey Beltre PTA - 12/13/2013 3:45 PM EDT Physical Therapy Note Total Knee Arthroplasty Treatment # 2 Patient Profile: Pt. is a 68 y.o. male admitted on 12/11/2013 by Juan Jose Mojica MD for R TKA. PMH: Active Non-Hospital Problems Diagnosis ??? Preop testing - TKR ??? Osteoarthritis of right knee ??? CAD (coronary artery disease) Chronic ??? Myocardial infarction, old Chronic ??? Lipid disorder Chronic ??? Hypertension Chronic ??? RJ (obstructive sleep apnea) Chronic ??? History of total knee arthroplasty(LEFT) ??? CIS - DJD ??? CIS - DM, Type II ??? CIS - Morbid obesity Past Medical History Diagnosis Date ??? CIS - DM, Type II 01/31/2009 PSH: Past Surgical History Procedure Date ??? Total knee arthroplasty 12/11/2013 @TOTAL KNEE ARTHROPLASTY performed by Juan Jose Del Rosario MD at [facility] MAIN OR Social History: Patient lives with his and cares for his 4 yo grandson a significant amount. 5 steps to enter and 1 flight to only bathroom. Precautions/Special Considerations: WBAT R L/E Post-operative course: Uneventful Subjective: Patient states ???I do have a second floor but I will not be going up there. I'll be on the first floor!?? Objective: Vitals: SpO2: WNL, HR WNL Most recent Hgb value: 11.6 Pain: 5/10 Strength: 3/5 quads Functional Mobility: Supine><Sit with HOB flat, contact guard assist of 1, VC for technique. Sit><Stand to and from a FWW, contact guard assist of 1, VC for technique. Gait: Ambulated with a FWW, contact guard assist of 1, VC for technique. Gait pattern: Step-to gait, cautiously Pt. to utilize FWW and 1 assist to ambulate with nursing staff. Stair training: Pt ascended/descended 6 four inch steps with one crutch and rail, contact guard assist of 1, VC for technique. Today???s Treatment: 1. Therapeutic functional. 2. Performed 10 reps each ankle pumps, quad sets, short arc quads, seated heel slides, and long arc quads. 3. Nu-Step UE & LE flex/ext for 7 minutes. Informed Consent: The patient agrees to and understands the PT treatment plan and goals. Education: patient educated on Bed mobility, Transfers, Assistive device/technique, Exercise, Safety , Precautions/protocol, Gait , Role of therapy and Discharge planning and verbalizes understanding. Patient status, treatment, and mobility recommendations discussed with nursing staff. Assessment: Pt is POD# 2 R TKA. Pt demonstrated increase tolerance and progress to functional bed mobility, transfers, gait, stair and exercise activities this morning. Pt will continue to benefit from increase skilled therapeutic interventions to maximize his level of functional independence. Range of Motion: AROM R knee extension = approx -10 deg, flexion = approx 80 deg Ambulation distance: 100 feet Goals: (to be achieved by 12/12/13) Goal met? Yes No Pt will be knowledgeable of prescribed exercises. x Pt will demonstrate AROM knee extension 0-15 degrees and flexion 80-90 degrees x Pt will move supine<>sit ind. x Pt will move sit<>stand ind. x Pt will ambulate 150 feet using FWW ind x Pt will negotiate 1 flight stairs using 1 railing and 1 crutch, ind. x Discharge Recommendations: Patient will require / supervision and assistance. Patient would benefit and tolerate continued daily intensive therapy interventions to maximize functional independence. Pt may benefit from short rehab stay to increase his mobility, independence and safety prior to d/c to home. Pt s is havingsurgery in 2 weeks at which time pt needs to be independent. Physical Therapist recommends: No other consults recommended at this time Plan: Patient to be seen daily for physical therapy to include Therapeutic exercises, Therapeutic functional activities and Gait training. Patient agrees to the plan as stated. Equipment needs: needs Rolling walker. Activity plan w/nursing assist (discussed with nursing staff): amb with FWW and 1 assist Total treatment time: 45 minutes Total timed treatment: 40 minutes OBEY BELTRE, PBX MECHANIC Pager: [phone] Juan Jose Del Rosario MD - 12/13/2013 7:12 AM EDT Orthopaedic Surgery Inpatient Note Attending: Dr. Del Rosario Patient Name: Lisa Romo Age: 68 y.o. Surgery: Right Total Knee Arthroplasty Date of Surgery: 12/11/2013 Past Medical: Patient Active Problem List Diagnosis Code ??? CIS - DJD T999.0 ??? CIS - DM, Type II T999.0 ??? CIS - Morbid obesity T999.0 ??? History of total knee arthroplasty(LEFT) V43.65 ??? CAD (coronary artery disease) 414.00 ??? Myocardial infarction, old 412 ??? Lipid disorder 272.9 ??? Hypertension 401.9 ??? RJ (obstructive sleep apnea) 327.23 ??? Osteoarthritis of right knee 715.96 ??? Preop testing - TKR V72.84 ??? 12/11/2013 S/P Right total knee arthroplasty V43.65 Interim/Subjective: Pt. doing well. Catheter still in, urine has been clear, history of hesitancy. Denies cp/sob/n/v. Good pain control Vitals: Temp: [36.8 ??C (98.2 ??F)-37.4 ??C (99.3 ??F)] Heart Rate: [58-72] Resp: [16-18] BP: (122-158)/(57-92) SpO2: [57 %-97 %] Gen: awake, alert and appr, NAD Right LE: SCDs, and cryocuff in place Dressing: clean, dry, and intact calves and thigh soft, appropriately tender Sensation intact SP/DP/T/S distr. Motor intact TA/GSC/EHL 5/5 2+DP pulse, regular rhythm Labs: Recent Results (from the past 24 hour(s)) POCT GLUCOSE Component Value Range POC Glucose 146 60 - 199 mg/dL POCT GLUCOSE Component Value Range POC Glucose 167 60 - 199 mg/dL POCT GLUCOSE Component Value Range POC Glucose 255 (*) 60 - 199 mg/dL POCT GLUCOSE Component Value Range POC Glucose 234 (*) 60 - 199 mg/dL POCT GLUCOSE Component Value Range POC Glucose 172 60 - 199 mg/dL POCT GLUCOSE Component Value Range POC Glucose 147 60 - 199 mg/dL BASIC METABOLIC PANEL (NON-FASTING) Component Value Range Glucose Lvl 134 60 - 199 mg/dL BUN 13 10 - 20 mg/dL Creatinine 1.01 0.80 - 1.50 mg/dL Sodium 138 135 - 145 mmol/L Potassium 3.7 3.5 - 5.0 mmol/L Chloride 100 98 - 107 mmol/L CO2 26 22 - 31 mmol/L Anion Gap 12 5 - 15 mmol/L Calcium 8.9 8.5 - 10.5 mg/dL Estimated GFR >60 >=60 PROTHROMBIN TIME Component Value Range PT 16.1 (*) 12.0 - 15.0 sec INR 1.2 (*) 0.9 - 1.1 HEMOGRAM Component Value Range WBC 9.7 4.0 - 10.0 x10(3)/mcL RBC 3.80 (*) 4.63 - 6.08 x10(6)/mcL Hemoglobin 11.6 (*) 13.7 - 17.5 gm/dL Hematocrit 34.6 (*) 40.0 - 51.0 % MCV 91.1 79.0 - 92.0 fL MCH 30.5 25.6 - 32.2 pg MCHC 33.5 32.0 - 36.5 gm/dL Platelets 141 (*) 145 - 370 x10(3)/mcL RDWSD 45.8 35.0 - 46.0 fL RDWCV 13.8 10.9 - 14.4 % MPV 11.5 9.0 - 12.0 fL DIFFERENTIAL, AUTOMATED Component Value Range Neutrophils % 70.2 34.0 - 71.0 % Neutr Abs (ANC) 6.80 (*) 1.50 - 6.30 x10(3)/mcL Lymphocytes % 14.9 (*) 19.0 - 53.0 % Lymphocytes Abs 1.4 1.0 - 3.6 x10(3)/mcL Monocytes % 14.3 (*) 4.0 - 13.0 % Monocyte Abs 1.4 (*) 0.2 - 1.0 x10(3)/mcL Eosinophils % 0.1 0.0 - 7.0 % Eosinophils Abs 0.0 0.0 - 0.5 x10(3)/mcL Basophils % 0.2 0.0 - 2.0 % Basophils Abs 0.0 0.0 - 0.2 x10(3)/mcL Immature Gran % 0.30 0.00 - 0.66 % Carolin Gran Abs 0.03 0.00 - 0.05 x10(3)/mcL POCT GLUCOSE Component Value Range POC Glucose 144 60 - 199 mg/dL x-rays: none new. Assessment: Lisa Romo 68 y.o. male s/p right TKA, POD#2, doing well post- operatively. Patient with traumatic catheterization, urine appears clear now and will remove meza, will continue to follow.Will continue to mobilize today. Recommendations: Weight bearing status of operative extremity: Weight bearing as tolerated Wound closure: Justine (remove 10-14 days) Dressing changes: Mepilex Silver (Do not remove for 7 days. Dry Dressings PRN after that) Follow-up Plan: As scheduled prior to surgery Anticoagulation: Coumadin 28 days folllowed by 2 weeks of Aspirin 325mg twice daily Antibiotics x 24h serena-operatively Any possible barriers to discharge: None Plan for hospital stay: Standard Anticipated Length of Stay: 2-3 days I saw and evaluated the patient. I was integral in formulating the plan as outlined. Advised about cathetr removal. JUAN JOSE DEL ROSARIO MD Future Appointments Date Time Provider Department Center 01/25/2014 10:20 AM Juan Jose Del Rosario MD [facility] None Triny Patel - 12/12/2013 2:48 PM EDT Regional Anesthesia Progress Note Date of Encounter: 12/12/2013 Responsible Attending: Dr. Jimmy Ivory Staff / Associate Provider: TRINY PATEL MD ID: Patient is POD# 1 s/p knee arthroplasty for which the patient received a right femoral nerve block for post-operative pain control. Subjective: Today the patient has good pain control and at present states pain is 3 out of 10. Patient has been able to tolerate PO analgesics and an oral diet without nausea or vomiting. Patient is without any complaints this morning other than some mild soreness around the knee. Objective: Temp: [36.3 ??C (97.3 ??F)-37.2 ??C (99 ??F)] Heart Rate: [52-64] Resp: [16-18] BP: (122-161)/(57-90) SpO2: [92 %-97 %] Gen: Patient resting comfortably. No bruising, erythema, swelling or discharge at insertion site. Sensory: Sensation is intact to cold over anterior thigh Motor: Patient is able to perform straight leg raise No evidence of local anesthetic toxicity Coags: Lab Results Component Value Date INR 1.1 12/12/2013 PT 14.4 12/12/2013 Meds: Medication list reviewed Assessment: Peripheral nerve block for post-operative pain control, currently with good pain control. Block appears to be resolving appropriately. Plan: ?? Block resolving appropriately ?? Continue current management per primary service. ?? Patient was instructed to contact Regional Anesthesia Team ([id number]) for any unresolved sensory or motor deficits. ?? Thank you for the opportunity to have participated in the care of this patient. TRINY PATEL MD Regional Team pager [phone] Magaly Slaughter RN - 12/12/2013 1:18 PM EDT This is a 68 yo gentleman who underwent R TKA with Dr Del Rosario on 12/11/13. Pt has Medicare and [place] medicaid insurance. Pt is currently reclined in bed with IVF, meza in place- hematuria from traumatic meza plmt per report, RA sat at this time 93%, alert and oriented, reports minimal pain. Pt's currently with pt and she explains they care for 4 yo Grand son. Their home has 1-2 steps to enter, flight stairs to bedroom and bathroom. has secured a commode for use at home and anticipates this for first level. She requests securing a walker and has no preference for vendors. Pt requests referral to [facility] as pt familiar with services. We discussed benefits of rehab stay however pt does not feel this needed and hoping to be able to gohome with support of VNA services. Will complete referral for [facility], secure FWW and follow. Anticipate d/c potentially 48 hrs. Juan Jose Del Rosario MD - 12/12/2013 7:16 AM EDT Orthopaedic Surgery Inpatient Note Attending: Dr. Del Rosario Patient Name: Lisa Romo Age: 68 y.o. Surgery: Right Total Knee Arthroplasty Date of Surgery: 12/11/2013 Past Medical: Patient Active Problem List Diagnosis Code ??? CIS - DJD T999.0 ??? CIS - DM, Type II T999.0 ??? CIS - Morbid obesity T999.0 ??? History of total knee arthroplasty(LEFT) V43.65 ??? CAD (coronary artery disease) 414.00 ??? Myocardial infarction, old 412 ??? Lipid disorder 272.9 ??? Hypertension 401.9 ??? RJ (obstructive sleep apnea) 327.23 ??? Osteoarthritis of right knee 715.96 ??? Preop testing - TKR V72.84 ??? 12/11/2013 S/P Right total knee arthroplasty V43.65 Interim/Subjective: Pt. doing well. Pt with a traumatic catheterization with clearing urine now. Denies cp/sob/n/v. Good pain control Vitals: Temp: [36.2 ??C (97.2 ??F)-36.9 ??C (98.4 ??F)] Heart Rate: [47-58] Resp: [12-18] BP: (117-173)/(61-119) SpO2: [92 %-100 %] Gen: awake, alert and appr, NAD Right LE: SCDs, and cryocuff in place Dressing: clean, dry, and intact calves and thigh soft, appropriately tender Sensation intact SP/DP/T/S distr. Motor intact TA/GSC/EHL 5/5 2+DP pulse, regular rhythm Drain removed intact to 10 holes Labs: Recent Results (from the past 24 hour(s)) POCT GLUCOSE Component Value Range POC Glucose 143 60 - 199 mg/dL POCT GLUCOSE Component Value Range POC Glucose 105 60 - 199 mg/dL SURGICAL PATHOLOGY REPORT Component Value Range Surgical Pathology Final Report Value: [facility] Provider: JUAN JOSE DEL ROSARIO Pt. Name: LISA ROMO [facility] #: [id number] Pt. Col Date: 12/11/2013 /Sex: 1945,(68 years),Male Rec Date: 12/11/2013 LOC: 3WST SURGICAL PATHOLOGY ---Pathologic Diagnosis--- A - Articular bone and soft tissue consistent with osteoarthritis, right knee. Gross surgical pathology examination. CR-0 12/11/13 PPS 12/11/13 Verified by: Yary Burch DO Pathologist (Electronic Signature) The attending pathologist whose signature appears on this report has reviewed all diagnostic slides and has edited the gross and/or microscopic portion of the report in rendering the final pathologic diagnosis. ---Gross Description--- A - Labeled/Fixative: Bone and tissue right knee, fresh. Quantity/Size: Multiple, 10.5 x 7.8 x 3.4 cm in aggregate. Tissue Description: Fragments of yellow-white, hard, irregular bone, cartilage and soft tissue. Articular Surface: Granular manning-pink. Eburnation: Present. Osteophytes: Present. Sections/Processing: No sections are submitted. pps ---Clinical Information--- Specimen Submitted: A - Bone and tissue rt knee Clinical History: DJD right knee Clinical Diagnosis: DJD right knee POCT GLUCOSE Component Value Range POC Glucose 135 60 - 199 mg/dL POCT GLUCOSE Component Value Range POC Glucose 238 (*) 60 - 199 mg/dL POCT GLUCOSE Component Value Range POC Glucose 131 60 - 199 mg/dL POCT GLUCOSE Component Value Range POC Glucose 172 60 - 199 mg/dL BASIC METABOLIC PANEL (NON-FASTING) Component Value Range Glucose Lvl 163 60 - 199 mg/dL BUN 16 10 - 20 mg/dL Creatinine 0.97 0.80 - 1.50 mg/dL Sodium 136 135 - 145 mmol/L Potassium 4.2 3.5 - 5.0 mmol/L Chloride 98 98 - 107 mmol/L CO2 25 22 - 31 mmol/L Anion Gap 13 5 - 15 mmol/L Calcium 8.9 8.5 - 10.5 mg/dL Estimated GFR >60 >=60 PROTHROMBIN TIME Component Value Range PT 14.4 12.0 - 15.0 sec INR 1.1 0.9 - 1.1 HEMOGLOBIN A1C Component Value Range Hemoglobin A1C 7.0 (*) <=5.6 % Est Avg Gluc 154 HEMOGRAM Component Value Range WBC 9.1 4.0 - 10.0 x10(3)/mcL RBC 4.01 (*) 4.63 - 6.08 x10(6)/mcL Hemoglobin 12.3 (*) 13.7 - 17.5 gm/dL Hematocrit 36.0 (*) 40.0 - 51.0 % MCV 89.8 79.0 - 92.0 fL MCH 30.7 25.6 - 32.2 pg MCHC 34.2 32.0 - 36.5 gm/dL Platelets 156 145 - 370 x10(3)/mcL RDWSD 44.7 35.0 - 46.0 fL RDWCV 13.6 10.9 - 14.4 % MPV 10.6 9.0 - 12.0 fL DIFFERENTIAL, AUTOMATED Component Value Range Neutrophils % 72.9 (*) 34.0 - 71.0 % Neutr Abs (ANC) 6.60 (*) 1.50 - 6.30 x10(3)/mcL Lymphocytes % 13.5 (*) 19.0 - 53.0 % Lymphocytes Abs 1.2 1.0 - 3.6 x10(3)/mcL Monocytes % 13.0 4.0 - 13.0 % Monocyte Abs 1.2 (*) 0.2 - 1.0 x10(3)/mcL Eosinophils % 0.2 0.0 - 7.0 % Eosinophils Abs 0.0 0.0 - 0.5 x10(3)/mcL Basophils % 0.2 0.0 - 2.0 % Basophils Abs 0.0 0.0 - 0.2 x10(3)/mcL Immature Gran % 0.20 0.00 - 0.66 % Carolin Gran Abs 0.02 0.00 - 0.05 x10(3)/mcL x-rays: none new. Assessment: Lisa Romo 68 y.o. male s/p right TKA, POD#1, doing well post- operatively. Patient with traumatic catheterization, urine appears clear now, will continue to follow. Will mobilize today. Recommendations: Will Remove drain, Meza and OB/GYN today Weight bearing status of operative extremity: Weight bearing as tolerated Wound closure: [place] (remove 10-14 days) Dressing changes: Mepilex Silver (Do not remove for 7 days. Dry Dressings PRN after that) Follow-up Plan: As scheduled prior to surgery Anticoagulation: Coumadin 28 days folllowed by 2 weeks of Aspirin 325mg twice daily Antibiotics x 24h serena-operatively Any possible barriers to discharge: None Plan for hospital stay: Standard Anticipated Length of Stay: 2-3 days I saw and evaluated the patient. I was integral in formulating the plan as outlined. Will get meza out today as his urine has cleared and he can mobilize. He has had issues with hesitancy and difficulty in starting in the past. Would likely benefit from workup in the future. JUAN JOSE DEL ROSARIO MD Future Appointments Date Time Provider Department Center 01/25/2014 10:20 AM Juan Jose Del Rosario MD [facility] None Yesenia Mondragon RN - 12/11/2013 5:48 PM EDT Pt arrived to floor from PACU. Oriented to room and call brennan. Pt is A / O x 4. Denies SOB, CP, N/V.Denies numbness / tingling to RLE. Meza catheter patent and draining clear, yellow urine. Davol drain in place, draining scant amt of s/s fluid. Cryo cuff on R knee for comfort. Pt reports adequate pain control and is using OB/GYN button appropriately. at bedside. Will continue to monitor. YESENIA JOLLEY RN. Wilmer Velázquez MD - 12/11/2013 3:40 PM EDT Orthopaedic Surgery Post-Op Check Note Surgery: Right TKA Patient Active Problem List Diagnosis Code ??? CIS - DJD T999.0 ??? CIS - DM, Type II T999.0 ??? CIS - Morbid obesity T999.0 ??? History of total knee arthroplasty(LEFT) V43.65 ??? CAD (coronary artery disease) 414.00 ??? Myocardial infarction, old 412 ??? Lipid disorder 272.9 ??? Hypertension 401.9 ??? RJ (obstructive sleep apnea) 327.23 ??? Osteoarthritis of right knee 715.96 ??? Preop testing - TKR V72.84 Patient seen: On floor S/Events: Denies CP, SOB, nausea, vomiting, abd pain. Pain well controlled. O: Vitals: Temp: [36.2 ??C (97.2 ??F)-36.9 ??C (98.4 ??F)] Heart Rate: [47-56] Resp: [12-18] BP: (117-173)/(61-119) SpO2: [93 %-100 %] I/O this shift: In: 1800 [P.O.:100; I.V.:1700] Out: 550 [Urine:150; Other:100; Blood:300] Exam: General: NAD, awake/alert Resp: Breathing comfortably Abd: S/NT/ND RLE: Dressing c/d/i. In cryocuff. Constavac attached and draining serosagnuinous fluid. Motor intactto EHL, FHL, TA. Sensation intact in foot/calf. Brisk capillary refill distally. Labs: No results found for this basename: WBC:3,HGB:3,HCT:3,PLATELET:3,NA:3,K:3,CL:3,CO2:3,BUN:3,CREATININE:3 in the last 72 hours A/P: 68 y.o. year old male POD#0 s/p right TKA, progressing well with stable vitals and uop. - Orders reviewed - continue all post-operative care -WBAT -difficulty placing meza, needed a 12 Fr -coumadin mepilex justine Lucero Choi RN - 12/11/2013 1:10 PM EDT 1255 - Pt arrived to PACU via bed. Monitors placed, alarms set and audible. 1458 - Report called to MARY Patterson on . documented in this encounter H&P Notes Juan Jose Del Rosario MD - 12/11/2013 10:10 AM EDT The patient's history and physical exam have been reviewed and completed. There has been no intervalchange from that of the pre-operative history and physical exam done within the last 30 days. Juan Jose Del Rosario MD - 12/11/2013 10:10 AM EDT Patient Name: Lisa Romo Patient Age: 68 y.o. Birthdate: 1945 Admit date: 12/11/2013 Attending Physician: Juan Jose Del Rosario MD See scanned document for pre-procedural H&P. documented in this encounter Procedure Notes Provider, Scanning - 12/15/2013 11:49 AM EDTAssociated Order(s): SCAN DOC: IMPLANTABLE DEVICES documented in this encounter Miscellaneous Notes Miscellaneous - Provider, Scanning - 12/15/2013 12:11 PM EDT Miscellaneous - Provider, Scanning - 12/15/2013 11:49 AM EDT Discharge Summary - Arianne Giordano PA - 12/14/2013 11:52 AM EDT Discharge Summary Patient Name: Lisa Romo Patient Age: 68 y.o. Language: Samoan Race: White Ethnicity: Not nor Admit date: 12/11/2013 Discharge date and time: 12/14/2013 Attending Physician: Juan Jose Del Rosario MD Discharge Physician: Juan Jose Del Rosario MD Follow-up Recommendations for Providers: See patient discharge instructions for additional details Inpatient Provider Contact Information: Dr. Del Rosario Joints: [phone] After hours and weekends, call [facility] Mix Mill Tender, , and have Orthopedic resident paged. Discharge Diagnoses (Hospital Problems) and Secondary Diagnoses (Chronic Problems): Active Hospital Problems Diagnosis ??? 12/11/2013 S/P Right total knee arthroplasty Resolved Hospital Problems Diagnosis Date Resolved No resolved problems to display. Active Non-Hospital Problems Diagnosis ??? Preop testing - TKR ??? Osteoarthritis of right knee ??? CAD (coronary artery disease) Chronic ??? Myocardial infarction, old Chronic ??? Lipid disorder Chronic ??? Hypertension Chronic ??? RJ (obstructive sleep apnea) Chronic ??? History of total knee arthroplasty(LEFT) ??? CIS - DJD ??? CIS - DM, Type II ??? CIS - Morbid obesity Operations/Major Procedures: 12/11/2013 Procedure(s): Right TOTAL KNEE ARTHROPLASTY MODIFIER PFC STABILIZED FIXED MODULAR DEPUY Surgeon(s) and Role: * Juan Jose Del Rosario MD - Primary * Pb Schroeder PA - Physician Furnace Checker History of Presentation: The patient is 68 yo male with severe DJD of the right knee. He has developed a progressive varus deformity and now failing non-operative therapy. He would like to try to improve his quality of life.Hesigned consent in the clinic. The risks and benefits of the procedure were outlined in detail including but not limited to bleeding ,infection ,blood clots, scar formation, patellar dislocation, persistent pain, stiffness, failure, wear or loosening of components, fracture, nerve palsy, injury to blood vessel, skin numbness, anesthetic risks or medical complications and need for additional surgery. Hospital Course: The patient was admitted via Same Day Surgery for the above operation. DVT prophylaxis: Coumadin. Patient began rehab on POD#1 w/ weight bearing as tolerated of right leg remembering to use protection at all times for balance and protection. Drains were removed POD# 1. Meza was removed POD#2 and patient was voiding spontaneously. Mepilex dressing was inspected POD#3 and found to be benign. Patient did have a bowel movement prior to discharge and was passing flatus . By POD#3 the patient was medically stable and was cleared for safe discharge to home with VNA. Of note. The patient had a traumatic meza catheter placement in the OR resulting in some hematuria which has resolved. Vital Signs at Discharge: Weight: Wt Readings from Last 1 Encounters: 12/11/13 113.399 kg (250 lb) Height: Ht Readings from Last 1 Encounters: 12/11/13 170.8 cm (5' 7.25) HC: HC Readings from Last 1 Encounters: No data found for HC BMI: Body mass index is 38.87 kg/(m^2). Last value Range last 24 hrs Temperature Temp: 37 ??C (98.6 ??F) Temp: [36.8 ??C (98.2 ??F)-37.1 ??C (98.8 ??F)] Heart Rate Heart Rate: 59 Heart Rate: [59-72] Blood Pressure BP: 136/69 mmHg @cyvynxb90@ Respiratory Rate Resp: 19 Resp: [16-20] SpO2 SpO2: 97 % @modgyunc85@ Art BP BP (Arterial Line): -- Functional and Cognitive Status: Patient is ambulatory with assistive devices and is cognitively intact. Important Studies and Lab Data: Labs: Last wbc, hgb, hct plt Recent Labs Basename 12/14/13 0400 WBC 9.2 HGB 11.3* HCT 33.5* Last 3 Lytes Recent Labs Basename 12/14/13 0400 12/13/13 0325 12/12/13 0420 NA 138 138 136 K 3.4* 3.7 4.2 CL 97* 100 98 CO2 25 26 25 BUN 13 13 16 CREATININE 1.04 1.01 0.97 Last 3 Coags Recent Labs Basename 12/14/13 0400 12/13/13 0325 12/12/13 0420 PT 17.2* 16.1* 14.4 INR 1.4* 1.2* 1.1 PTT -- -- -- Transfusions: No Studies: None Discharge Conditions/Prognosis: Stable, awake, and alert. Mobilizing with walker, pain controlled onoral medications. Discharge to: Home with VNA Updated Allergies/ADRs: No Known Allergies Immunizations Given this Hospitalization: Immunization History Administered Date(s) Administered ??? Pneumococcal Polyvalent 09/12/2005 Discharge Medications: Your Medications As of 12/14/2013 12:53 PM Notice Some of the medications listed here do not show instructions, such as how often to take the medication. Ask your doctor or nurse how to use these medications. New Medications Dose Details bisacodyl 10 mg suppository Commonly known as: DULCOLAX Place 1 suppository rectally daily as needed. 10 mg Refills: 0 oxyCODONE 5 mg immediate release tablet Commonly known as: ROXICODONE Take 1-3 tablets by mouth every 4 hours as needed for Pain (mild pain). 5-15 mg Quantity: 90 tablet Refills: 0 polyethylene glycol 17 gram packet Commonly known as: MIRALAX Take 17 g by mouth daily. 17 g Refills: 0 senna-docusate 8.6-50 mg per tablet Commonly known as: PERICOLACE Take 1-4 tablets by mouth 2 times daily. Take while on the narcotic pain medicine. 1-4 tablet Quantity: 60 tablet Refills: 2 warfarin 5 mg tablet Commonly known as: COUMADIN Take 1.5 tablets by mouth daily. Your dose may vary depending on your INR value. You may need to break or combine pills to achieve the right dose. 7.5 mg Quantity: 45 tablet Refills: 0 Continued medications with new dosing Dose Details acetaminophen 500 mg tablet Commonly known as: TYLENOL Take 2 tablets by mouth every 8 hours. Take around the clock for the first 10 days (December 21) and then as needed to help control pain. DO NOT EXCEED 3000 MG IN A 24 HOUR PERIOD. What changed: - how often to take the med - reasons to take the med - doctor's instructions 1000 mg Refills: 0 Continued medications, unchanged Dose Details albuterol 90 mcg/actuation inhaler Commonly known as: PROVENTIL HFA;VENTOLIN HFA Inhale 2 puffs into the lungs every 4 hours as needed. Use with spacer 2 puff Refills: 0 amLODIPine 10 mg tablet Commonly known as: NORVASC Take 2.5 mg by mouth daily. 2.5 mg Refills: 0 atorvastatin 40 mg tablet Commonly known as: LIPITOR Take 80 mg by mouth daily. 80 mg Refills: 0 BUDEPRION SR 150 mg 12 hr tablet Take 150 mg by mouth 2 times daily. Generic drug: buPROPion 150 mg Refills: 0 BYSTOLIC 10 mg Tab Take 1 tablet by mouth 2 times daily. Generic drug: Nebivolol 1 tablet Refills: 0 COZAAR 100 mg tablet Take 100 mg by mouth daily. Generic drug: losartan 100 mg Refills: 0 ferrous sulfate 325 mg (65 mg iron) EC tablet Take 325 mg by mouth 2 times daily. 325 mg Refills: 0 furosemide 80 mg tablet Commonly known as: LASIX Take 80 mg by mouth 2 times daily. 80 mg Refills: 0 metFORMIN 500 mg tablet Commonly known as: GLUCOPHAGE Take 1,000 mg by mouth 2 times daily (with meals). 1000 mg Refills: 0 penicillin v potassium 500 mg tablet Commonly known as: VEETID 500mg, PO, BID Refills: 0 potassium chloride 20 mEq extended release tablet Commonly known as: K-DUR/KLOR-CON Take 20 mEq by mouth 2 times daily. 20 mEq Refills: 0 VITAMIN D-3 ORAL Take 2,000 Units by mouth daily. 2000 Units Refills: 0 STOPPED Medications aspirin 325 mg tablet Smoking Status at Discharge: History Smoking status ??? Never Smoker Smokeless tobacco ??? Never Used Instructions Given to Patient at Discharge: There are no Patient Instructions on file for this visit. General Instructions Activity: You can weight bearing as tolerated on your Right leg remembering to use a walker or crutches at all times for balance and protection. Flexion AND extension are important to work on at home. You should NOT place a pillow under your knee. To help with extension you can place a pillow under your heel or lower leg or placed lengthwise along the leg. Again DO NOT place a pillow under the operated knee for comfort. You should wear the DINAH hose to knee bilaterally until you are seen in followup.Remove these at least once per day to inspect your skin. Coumadin flow sheet: Date Notes INR Coumadin dose (mg) 6/2 day of operation 5 mg 6/3 POD 1 1.1 5mg 6/4 POD 2 1.2 Lovenox 40 + 7.5 mg 6/5 DC /POD 3 1.4 Lovenox 40 + 7.5 mg Anti-coagulation follow up: (for home bound pts) 1. You should take 7.5 mg (1.5 of the 5mg pills) of Coumadin today. Take this medication at the sametime each day - usually 5pm. 2. Your coumadin level or INR target range is 2-3 and this will need to be checked by the VisitingNurse on the day after discharge and at least twice per week thereafter (usually every Wednesday and ). The INR should be reported to the [facility] Ortho clinic at [phone], and you will be informed of any needed changes in your Coumadin dose. 3. If your INR level is ever above 3.5 you should not participate in aggressive Physical therapy exercises - you can mobilize/ambulate. This will decrease the possibility of more bleeding into your joint. Once your INR is less than 3.5 you can resume Physical therapy. One of the Orthopedic nurses willcall you with further instructions as needed. 4. You will be on Coumadin for 4 weeks. On January 08, STOP the Coumadin and begin Aspirin 325mg twice a day until you are seen in followup with your orthopedic surgeon. Take aspirin with food. Diet: Resume usual diet, but increase your intake of fluids and fiber while you are on narcotic painmeds to prevent constipation Driving: DO NOT DRIVE until you are cleared to do so by your Orthopedic surgeon. You should not drive if you are on narcotic pain meds as these can affect your judgement and reaction time. Call your surgeon with any questions. Medication: 1. The pain medication that you are using Oxycodone can cause constipation, so make sure you increase your intake of fluids and fiber while you are on them. You should also take the stool softener thatwas ordered, sennakot, to factilitate a bowel movement. An dkic-ezg-dcgwslo medication, miralax can also be used if needed to combat constipation 2. If you need a renewal on your narcotic pain medication, you need to give the Orthopedic clinic enough time to process your request. This can take up to three days, so plan accordingly. 3. You have been discharged on a short acting narcotic. You will be on this medication for a limitedperiod of time only. Taper off these medications as indicated on your prescription. Take the smallest dose necessary to control your pain. Decrease dose and increase time between doses as pain management improves. 4. Continue the tylenol around the clock for the next 10 days (December 21) - it can be effective in controlling pain along with your other medications. After December 21, you may take tylenol as needed tohelp control the pain. DO NOT EXCEED 3000 MG Tylenol in a 24 hour period. Shower: 1. You can shower but remember your activity limitations and always have a chair available for balance and protection. DO NOT submerge the dressing/incision. 2. Do not let water run over the operative dressing. If it becomes wet lightly pat the dressing dry.When this operative dressing is removed you can let water gently run over the incision. DO NOT submerge the incision. No tub baths, pools, creeks, cooper, hot tubs, ponds, etc. 3. Uou have justine. Always cover them with a waterproof dressing or plastic bag when showering until 48 hours after they are removed. 4. After justine are removed you can let water run gently over the incision as long as there is no drainage. Wound (Mepilex): 1. Sutures: Staple removal 11-14 days after surgery (approximately December 25). 2. Remove your operative dressing 7 days from your surgery (December 18). When it is removed you can leave the incision open to air or cover it with a light dressing. Do not pull the dressing back to lookat the incision unless there is a problem. It will not re adhere to your skin. 3. If you have lots of drainage when you get home (and it is before December 18), remove this operativedressing and replace it with dry sterile gauze. Continue with daily dressing changes (and as needed)until the drainage stops, then remove the dressing and leave the incision open to air or lightly covered. FOLLOWUP APPOINTMENTS: 1. You will have followup appointments at [facility] as indicated in Future Appointments and Orders. Youwill have an xray prior to those appointments so please come to Radiology, desk 3T, 1 hour BEFORE your appointment for those x-rays. Future Appointments Date Time Provider Department Center 01/25/2014 10:20 AM Juan Jose Del Rosario MD [facility] None If you have questions or concerns: Wednesday through Wednesday, 8 AM- 5 PM, please call Dr. Del Rosario's office at . If it is after 5 PM or on the weekend, please call and ask for orthopedic resident on-call to be paged. Future Appointments and Orders Future Appointments: Provider: Department: Dept Phone: Center: 01/25/2014 10:20 AM Juan Jose Del Rosario MD Orthopaedics [phone] None Joint Appt Health Question [facility] [phone] None Future Orders Please Complete By Expires Referral to Home Health [[id number] CPT(R)] Process Instructions: Scheduling Instructions: Comments: DISCHARGE DOCUMENTATION FOR VNA SERVICES (INCLUDING THOSE PATIENTS WITH MEDICARE COVERAGE BEING DISCHARGED HOME WITH VNA SERVICES AND THOSE PATIENTS WITH MEDICARE COVERAGE WHO ARE BEING DISCHARGED HOME WITH HOSPICE SERVICES) In discussion with the attending physician, it is certified that this patient is under their care and that they, or a nurse practitioner, clinical nurse specialist or physician's assistant restaurant general manager who is working directly with them, had a face to face encounter that meets the physician face to face encounter re quirements with this patient on 12/12/2013 The encounter with the patient was in whole, or in part, for the following medical condition, which is the primary reason for home health care services: [ RTKA ] In discussion with the primary medical team, it is certified that, based on their findings, the indicated services are medically necessary and appropriate for home health services. HOME HEALTH AGENCY: [facility]. PHONE: [phone] FAX: [phone] Home care orders for Total Knee Replacements for PT: Mcfp(SN) eval if indicated on admission visit 1. Draw PT/INR as follows: ( Point of care testing is acceptable) Week of discharge: PER MD/ROTARY SURFACE GRINDER/PA ORDERS. Draw INR on WednesdayDecember 15 and call to ortho anticoagulation clinic for dosing. Thereafter, PT/INR: every Wednesday and PT/INR results to be called and faxed as follows: Wed-Wed Ortho anticoagulation (Coumadin) clinic @ [facility]: ; Sat/Sun: if the PT/INR is drawn on the weekend, call the results to the Orthopedic Resident on callat [phone] for Coumadin dosing 2.Do not lift the edge of the mepilex dressing to observe the incision; this dressing needs to stay in place until 7 days (December 18) after surgery. 3. Suture or Staple removal in 10-14 days (Suzanne 16th) - PER MD/SENIOR PRODUCT DEVELOPMENT ENGINEER/PA ORDERS 4. Continue PT rehab for balance, endurance, joint mobility, ROM, Strength, TKA protocol FOR MEDICARE ONLY: (please delete this section if not Medicare) In discussion with the attending physician, it is certified that the clinical findings support that this patient is homebound ;i.e. absences from home require considerable and taxing effort due to: recent surgery on R LE requires restricted motion and strength. Please note that any additional orders needs or changes will need to be obtained from this patient'sPCP: CANDACE BRAGA APRN [address] [place] [place] [address] All VNA agencies which cover the area of patient's residence have been reviewed, either verbally or in writing, and patient/family have chosen the indicated home health care agency for home services. Questions: Responses: Agency name and contact information [facility] Patient location post discharge home What services are requested Registered Nurse Physical Therapy Start date Responsible MD post discharge contact info PCO Primary Care Provider: CANDACE BRAGA APRN [phone] Plan of Care - Jonathan Graves RN - 12/13/2013 2:21 AM EDT Problem: Pain, Acute (Adult, Obstetrics) Goal: Identify Signs and Symptoms and Related Risk Factors Signs and symptoms and related risk factors are identified upon initiation of Human Response Clinical Practice Guideline (CPG) Patient tolerating PO oxycodone. Patient states pain is 4/10. Patient aware to alert RN if pain is not well controlled with current pain medication. RN will monitor patient. Problem: Fall/Trauma/Injury Risk (Adult, Obstetrics) Goal: Identify Signs and Symptoms and Related Risk Factors Signs and symptoms and related risk factors are identified upon initiation of Human Response Clinical Practice Guideline (CPG) Patient ambulating with one assist with a walker. Patient remains free of falls during this hospitalization. Patient has a call brennan within reach, and aware to alert RN when they are wanting to mobilize. Problem: Skin Integrity Impairment, Risk/Actual (Adult, Obstetrics) Goal: Identify Signs and Symptoms and Related Risk Factors Signs and symptoms and related risk factors are identified upon initiation of Human Response Clinical Practice Guideline (CPG) Patients skin to be intact at this time. Patient aware to reposition themselves every 2 hours. RN will monitor patients skin. Initial Assessments - Susie Sheree L, PT - 12/12/2013 1:08 PM EDT Physical Therapy Evaluation Total Knee Arthroplasty Patient Profile: Pt. is a 68 y.o. male admitted on 12/11/2013 by Juan Jose Mojica MD for R TKA. PMH: Active Non-Hospital Problems Diagnosis ??? Preop testing - TKR ??? Osteoarthritis of right knee ??? CAD (coronary artery disease) Chronic ??? Myocardial infarction, old Chronic ??? Lipid disorder Chronic ??? Hypertension Chronic ??? RJ (obstructive sleep apnea) Chronic ??? History of total knee arthroplasty(LEFT) ??? CIS - DJD ??? CIS - DM, Type II ??? CIS - Morbid obesity Past Medical History Diagnosis Date ??? CIS - DM, Type II 01/31/2009 PSH: Past Surgical History Procedure Date ??? Total knee arthroplasty 12/11/2013 @TOTAL KNEE ARTHROPLASTY performed by Juan Jose Del Rosario MD at [facility] MAIN OR Social History: Patient lives with his and cares for his 4 yo grandson a significant amount. 5 steps to enter and 1 flight to only bathroom. Precautions/Special Considerations: WBAT R L/E Post-operative course: Uneventful Subjective: Patient states ???I should have brought my inhaler I guess?? Objective: Vitals: SpO2: WNL, HR WNL Most recent Hgb value: 12.3 Pain: 5/10 at rest, 7/10 with mobility Strength: 3/5 quads Functional Mobility: Supine->sit With min assist and R L/E and with HOB elevated Sit->supine With min assist of R L/E Sit->stand With CG x 1, VC s and FWW Stand->sit With CG Gait: Ambulated using FWW And 1 assist to nsg desk and back. Limited by dyspnea. Rn informed. Pt requesting inhaler Gait pattern: Step-to gait, cautiously Pt. to utilize FWW and 1 assist to ambulate with nursing staff. Today???s Treatment: 1. Evaluation 2. Performed 10 reps each ankle pumps, quad sets, short arc quads, seated heel slides, and long arc quads. Pt in possession of handout illustrating the exercises and was instructed to perform them as able 3x per day. Informed Consent: The patient agrees to and understands the PT treatment plan and goals. Education: patient educated on Bed mobility, Transfers, Assistive device/technique, Exercise, Safety , Precautions/protocol, Gait , Role of therapy and Discharge planning and verbalizes understanding. Patient status, treatment, and mobility recommendations discussed with nursing staff. Assessment: Pt is POD#1 R TKA. Pt. tolerated today???s session well. Pt presents with pain, decreased ROM, strength, functional mobility, and gait skills. Pt will benefit from PT to address his/her functional deficits to restore prior level of function. . Pt may benefit from short rehab stay to increase his mobility, independence and safety prior to d/c to home. Pt s is having surgery in 2 weeks at which time pt needs to be independent. Pt limited by dyspnea and fatigue today. He has 1 flight of stairs to only bathroom. Range of Motion: AROM R knee extension = approx -15 deg, flexion = approx 70 deg Ambulation distance: 30 feet Goals: (to be achieved by 12/12/13) Goal met? Yes No Pt will be knowledgeable of prescribed exercises. Pt will demonstrate AROM knee extension 0-15 degrees and flexion 80-90 degrees Pt will move supine<>sit ind. Pt will move sit<>stand ind. Pt will ambulate 150 feet using FWW ind Pt will negotiate 1 flight stairs using 1 railing and 1 crutch, ind. Discharge Recommendations: Patient will require 24/ supervision and assistance. Patient would benefit and tolerate continued daily intensive therapy interventions to maximize functional independence. Pt may benefit from short rehab stay to increase his mobility, independence and safety prior to d/c to home. Pt s is havingsurgery in 2 weeks at which time pt needs to be independent. Physical Therapist recommends: No other consults recommended at this time Plan: Patient to be seen daily for physical therapy to include Therapeutic exercises, Therapeutic functional activities and Gait training. Patient agrees to the plan as stated. Equipment needs: needs Rolling walker. Activity plan w/nursing assist (discussed with nursing staff): amb with FWW and 1 assist Total treatment time: 35 minutes Total timed treatment: 0 minutes eval SHEREE RICKS, PT Pager: [phone] Plan of Care - Jonathan Graves RN - 12/12/2013 5:58 AM EDT Problem: Pain, Acute (Adult, Obstetrics) Goal: Identify Signs and Symptoms and Related Risk Factors Signs and symptoms and related risk factors are identified upon initiation of Human Response Clinical Practice Guideline (CPG) Patient tolerating PO oxycodone. Patient states pain is 5/10. Patient aware to alert RN if pain is not well controlled with current pain medication. RN will monitor patient. Problem: Skin Integrity Impairment, Risk/Actual (Adult, Obstetrics) Goal: Identify Signs and Symptoms and Related Risk Factors Signs and symptoms and related risk factors are identified upon initiation of Human Response Clinical Practice Guideline (CPG) Patients skin to be intact at this time. Patient aware to reposition themselves every 2 hours. RN will monitor patients skin. Miscellaneous - Provider, Scanning - 12/11/2013 3:45 PM EDT Miscellaneous - Provider, Scanning - 12/11/2013 3:45 PM EDT OR Attestation - Juan Jose Del Rosario MD - 12/11/2013 12:51 PM EDT Attestation: Case Date: 12/11/2013 I performed this procedure without the involvement of a resident. JUAN JOSE DEL ROSARIO MD 12/11/2013 Op Note - Juan Jose Del Rosario MD - 12/11/2013 12:44 PM EDT [facility] Operative Note Patient Name: Lisa Romo : [id number] MR#: [id number] Case Date: 12/11/2013 Surgeon: Surgeon(s) and Role: * Juan Jose Del Rosario MD - Primary * Pb Schrodeer PA - Physician Furnace Checker Preoperative diagnosis: RIGHT TKA Postoperative diagnosis: RIGHT TKA Procedure(s): @TOTAL KNEE ARTHROPLASTY MODIFIER PFC STABILIZED FIXED MODULAR DEPUY Spinal with Adductor block Estimated Blood Loss: 300 Fluids: 1700 crystalloid Drains: hemovac Urine Output: 150 mL Tourniquet Time: 48 minutes. Right TKR Post OP RT Intra Op Knee Flexion (degrees): 105 RT Intra Op Knee Extension (degrees): 0 RT Intra Op Stability Ap Translation: <5mm RT Intra Op Stability Varus: <5mm RT Intra Op Stability Valgus: <5mm RT Lateral Release Performed: No RT Intra Op Bone Cement : Antibiotic RT Intra Op Surgical Approach: Quad Split RT Intra Op FX at Index Surgery: No RT Patient Specific Instrument Used: No RT Computer Assisted Case: No Implant Name Type Inv. Item Serial No. Careers Adviser Lot No. LRB No. Used Action COMPO,SGM,FEM,PS,CMNT,LUG,R,4 ([id number]) (AUTOREQ) - [id number] IMPLANTS COMPO,SGM,FEM,PS,CMNT,LUG,R,4([id number]) (AUTOREQ) [id number] Right 1 Implanted TRAY,TIB,SGM,MOD,CMNT,SZ4 ([id number]) (AUTOREQ) - [id number] IMPLANTS TRAY,TIB,SGM,MOD,CMNT,SZ4 ([id number]) (AUTOREQ) [id number] Right 1 Implanted JEFFERSON,PFC,SGM,OVL,3PG,STD,38MM ([id number]) (AUTOREQ) - [id number] IMPLANTS JEFFERSON,PFC,SGM,OVL,3PG,STD,38MM ([id number]) (AUTOREQ) [id number] Right 1 Implanted CEMENT,BNE,CMW 1,GNTA,40GM ([id number]) - [id number] IMPLANTS CEMENT,BNE,CMW 1,GNTA,40GM ([id number]) [id number] Right 1 Implanted INSER,SGM,STAB,CRSLNK,4X10MM ([id number]) (AUTOREQ) - [id number] IMPLANTS SGM MO,STAB,NAIDALNK,4X10MM ([id number]) (AUTOREQ) ABILITY Network Tech - [id number] Right 1 Implanted COMPLICATIONS: None. INDICATIONS:The patient is 68 yo male with severe DJD of the right knee. He has developed a progressive varus deformity and now failing non-operative therapy. He would like to try to improve his quality of life.He signed consent in the clinic. The risks and benefits of the procedure were outlined in detail including but not limited to bleeding ,infection ,blood clots, scar formation, patellar dislocation, persistent pain, stiffness, failure, wear or loosening of components, fracture, nerve palsy, injury to blood vessel, skin numbness, anesthetic risks or medical complications and need for additional surgery. DESCRIPTION OF PROCEDURE: After careful identification of the patient in the holding area includingsurgical marking and confirmation of the procedure, the patient was transferred to the operating room. Appropriate anesthesia was administered by the anesthesiology staff. Femoral nerve block had previously been placed in the holding area. Antibiotic prophylaxis was given and a Meza catheter was placed. The lower extremity was then prepped and draped in the usual sterile fashion. Time-out for safe surgery was undertaken and all agreed on the surgical side and to proceed with total knee arthroplasty. The limb was then exsanguinated and tourniquet inflated. Using a #10 blade, a midline skin incision was then carried out. Dissection was carried down to the level of the extensor mechanism. Using a medial parapatellar arthrotomy, the knee joint was then entered. The anterior horn of the medial meniscus was divided. A medial subperiosteal peel was then undertaken using Bovie electrocautery. A portion of the patellar fat pad was taken down. The lateral patellofemoral ligaments were released with scissors. The synovium was released circumferentially around the patella to allow for easier eversion. Care was taken to protect the extensor mechanism during this release. The knee was then carefully flexedup. Careful attention was paid to the tibial tubercle to be sure that there was no violation of the patellar tendon insertion as we flexed. The anterior and posterior cruciate ligaments were then released as well as the anterior horn of the lateral meniscus. TIBIAL PREPARATION: The tibia was subluxated forward using a blunt Hohmann and attention was turned to tibial cut. The extramedullary tibial alignment guide was placed and set for a 4 mm resection off the medial compartment and 12 off the lateral side. The alignment audelia was set in the center of the ankle joint. Appropriate posterior slope was then set. The guide was then pinned into position. Proximal tibial resection was undertaken using an oscillating saw. Care was taken to protect the medial and lateral collateral ligaments during the cut. The bone was removed. We had excellent alignment. FEMORAL PREPARATION: Attention was then turned to the femur. The femoral canal was opened using a starting drill just anterior to the PCL insertion. The canal was irrigated and suctioned prior to insertion of the intramedullary guide audelia. This was then placed and set for 5 degrees of valgus angle. Thedistal femoral cut guide was then placed and set for 10 mm resection depth because of his flexion contracture. This was then pinned into position. The cut depth was checked with an marika wing. The oscillating saw was then used to perform the distal femoral cut. The posterior referencing sizing guide was then placed and pins were set in 3 degrees of external rotation from the posterior condylar axis in line with the transepicondylar axis. The sizing guide was placed and the size chosen that would provide the best fit and avoid anterior notching. Threaded pins were placed and the sizer removed. The cut block was then pinned into position. The anterior cut was performed followed by the posterior cuts. The anterior and posterior chamfer cuts were then performed. Flexion and extension blocks were thenused to check the flexion and extension gaps to be sure that they were symmetric. Appropriate soft tissue releases were used where necessary to balance them. The notch cutting guide was then placed taking care to lateralize the femoral component appropriately. It was pinned into position. The notch cut was carried out with oscillating saw. We then placed the trial femoral component followed by the trial tibia and polyethylene. The knee was brought up to full extension. It was found to have good stability to varus and valgus stresses in both flexion and extension. PATELLAR PREPARATION: We then proceeded with the patellar preparation. The patellar thickness was then measured with caliper. We then used freehand technique to remove the articular surface. The patella was measured and the appropriate-sized jig used to prepare the drill holes. Patellar trial was placed and caliper measurement reconfirmed to assure that there was no over-stuffing of the patellofemoral joint. The patellar trial was placed and taken through range of motion. It was found to track well without any evidence of liftoff. Lug holes were then drilled in the femur. FINAL PREPARATION:The trial components were then removed and the final preparation of the tibia was undertaken. The tibia was exposed and the trial placed. It was pinned into position taking care to maintain the appropriate external rotation and adequate tibial coverage. This was then completed using t he step drill and broach. All bony surfaces were then thoroughly irrigated using normal saline pulsatile lavage. The components were opened onto the field except for the final polyethylene. Cement mixing was begun on the back table using vacuum technique. We then placed cement onto the tibial plateau and digitally pressurized it into the bone. We then placed the tibial component and impacted into position using an impactor and mallet. Excess cement was removed with a Daphne. We then placed the cement onto the anterior and distal aspects of the femur. The cement was placed on the posterior aspect of the prosthetic condyles. The femoral component was then placed and impacted into position. Excess cement was removed with a Daphne. The polyethylene was then placed and the knee brought out to full extension where it was held forthe entire polymerization time. Cement was then pressurized into the patellar bone and the patellar component placed. The patella was clamped. Excess cement was removed with a Daphne. After all cement byrd d hardened, the knee was flexed up and the trial polyethylene removed. We checked the posterior femoral condyles for cement. We also subluxated the tibia forward and checked for any remaining cement. It was removed with an osteotome and rongeurs where necessary. The knee was thoroughly irrigated using normal saline pulsatile lavage. We then placed our trial polyethylene and went through ligament testing both in flexion and extension. We decided on the appropriate polyethylene, it was opened onto the field. It was then inserted and the knee brought out to fullextension. It was taken through a full range of motion and had excellent stability to varus and valgus testing in both flexion and extension. The final alignment was excellent. The patella tracked wellwithout liftoff using the no thumbs technique. The wound was irrigated once again. A drain was placed through a separate superolateral stab incision and hooked into the suction system. The arthrotomy was then closed using absorbable suture. The deep dermal layers were closed using absorbable suture. The skin was then closed using justine, taking care to lilliam the edges. The wound was cleansed, dried, and dressing consisting of Mepilex silver. This was then secured with Cornelio bandages. The patient was awakened by the anesthesiology staff and [facility] Sequential compression devices were placed. The patient was taken to the postanesthesia care unit in stable condition. All sponge instrument and needle counts were correct at the end of the case. POSTOPERATIVE PLAN: The patient will be admitted to the floor for pain control and montioring. Weightbearing as tolerated on the operative leg. Prophylactic IV antibiotics x 3 doses. We will use coumadin for DVT prophylaxis. Weight bearing status of operative extremity: Weight bearing as tolerated Wound closure: [place] (remove 10-14 days) Dressing changes: Mepilex Silver (Do not remove for 7 days. Dry Dressings PRN after that) Follow-up Plan: As scheduled prior to surgery Anticoagulation: Coumadin 28 days followed by 2 weeks of Aspirin 325mg twice daily Any possible barriers to discharge: None Plan for hospital stay: Standard, watch for issues with voiding as his meza required a 12 FR catheter. Anticipated Length of Stay: 2-3 days. Disposition: awakened from anesthesia, extubated and taken to the recovery room in a stable condition, having suffered no apparent untoward event. Condition: doing well without problems documented in this encounter Plan of Treatment Upcoming Encounters Date Type Specialty Care Team Description 03/12/2022 Appointment Cardiology Diane Garcia, MARKETING AND PROMOTIONS MANAGER [facility] [place], [place] [address] (Wo rk) documented as of this encounter Procedures Procedure Name Priority Date/Time Associated Comments Diagnosis IMPLANTABLE DEVICES 12/15/2013 11:49 Resu lts for this SCAN AM EDT procedure are i n the results section. POCT GLUCOSE Routine 12/14/2013 11:35 Results for this AM EDT procedure are i n the results section. POCT GLUCOSE Routine 12/14/2013 7:12 AM Results f or this EDT procedure are i n the results section. POCT GLUCOSE Routine 12/14/2013 4:37 AM Results f or this EDT procedure are i n the results section. NUCLEATED RED BLOOD Routine 12/14/2013 4:00 AM Re sults for this CELLS EDT procedure are i n the results section. HEMOGRAM Routine 12/14/2013 4:00 AM Results f or this EDT procedure are i n the results section. DIFFERENTIAL, Routine 12/14/2013 4:00 AM Results for this AUTOMATED EDT procedure are i n the results section. PROTHROMBIN TIME Routine 12/14/2013 4:00 AM Resul ts for this EDT procedure are i n the results section. CBC (WITH DIFF) Routine 12/14/2013 4:00 AM EDT BASIC METABOLIC PANEL Routine 12/14/2013 4:00 AM Results for this (NON-FASTING) EDT procedure are in the results section. POCT GLUCOSE Routine 12/13/2013 11:59 Results for this PM EDT procedure are i n the results section. POCT GLUCOSE Routine 12/13/2013 8:23 PM Results f or this EDT procedure are i n the results section. POCT GLUCOSE Routine 12/13/2013 5:08 PM Results f or this EDT procedure are i n the results section. POCT GLUCOSE Routine 12/13/2013 11:54 Results for this AM EDT procedure are i n the results section. POCT GLUCOSE Routine 12/13/2013 7:51 AM Results f or this EDT procedure are i n the results section. POCT GLUCOSE Routine 12/13/2013 3:47 AM Results f or this EDT procedure are i n the results section. HEMOGRAM Routine 12/13/2013 3:25 AM Results f or this EDT procedure are i n the results section. DIFFERENTIAL, Routine 12/13/2013 3:25 AM Results for this AUTOMATED EDT procedure are i n the results section. PROTHROMBIN TIME Routine 12/13/2013 3:25 AM Resul ts for this EDT procedure are i n the results section. CBC (WITH DIFF) Routine 12/13/2013 3:25 AM EDT BASIC METABOLIC PANEL Routine 12/13/2013 3:25 AM Results for this (NON-FASTING) EDT procedure are in the results section. POCT GLUCOSE Routine 12/13/2013 12:01 Results for this AM EDT procedure are i n the results section. POCT GLUCOSE Routine 12/12/2013 8:11 PM Results f or this EDT procedure are i n the results section. POCT GLUCOSE Routine 12/12/2013 6:47 PM Results f or this EDT procedure are i n the results section. POCT GLUCOSE Routine 12/12/2013 4:44 PM Results f or this EDT procedure are i n the results section. POCT GLUCOSE Routine 12/12/2013 11:49 Results for this AM EDT procedure are i n the results section. POCT GLUCOSE Routine 12/12/2013 7:14 AM Results f or this EDT procedure are i n the results section. HEMOGRAM Routine 12/12/2013 4:20 AM Results f or this EDT procedure are i n the results section. DIFFERENTIAL, Routine 12/12/2013 4:20 AM Results for this AUTOMATED EDT procedure are i n the results section. PROTHROMBIN TIME Routine 12/12/2013 4:20 AM Resul ts for this EDT procedure are i n the results section. CBC (WITH DIFF) Routine 12/12/2013 4:20 AM EDT HEMOGLOBIN A1C Routine 12/12/2013 4:20 AM Results for this EDT procedure are i n the results section. BASIC METABOLIC PANEL Routine 12/12/2013 4:20 AM Results for this (NON-FASTING) EDT procedure are in the results section. POCT GLUCOSE Routine 12/12/2013 3:58 AM Results f or this EDT procedure are i n the results section. POCT GLUCOSE Routine 12/12/2013 12:19 Results for this AM EDT procedure are i n the results section. POCT GLUCOSE Routine 12/11/2013 8:02 PM Results f or this EDT procedure are i n the results section. POCT GLUCOSE Routine 12/11/2013 4:43 PM Results f or this EDT procedure are i n the results section. SURGICAL PATHOLOGY Routine 12/11/2013 1:03 PM Res ults for this REPORT EDT procedure are i n the results section. POCT GLUCOSE Routine 12/11/2013 1:02 PM Results f or this EDT procedure are i n the results section. SPECIMEN TO PATHOLOGY Routine 12/11/2013 11:25 Re sults for this AM EDT procedure are i n the results section. MODIFIER PFC 12/11/2013 10:36 RIGHT TKA STABILIZED FIXED AM EDT MODULAR DEPUY TOTAL KNEE 12/11/2013 10:36 RIGHT TKA ARTHROPLASTY (WRVU AM EDT 20.72) POCT GLUCOSE Routine 12/11/2013 8:46 AM Results f or this EDT procedure are i n the results section. documented in this encounter Results SCAN DOC: IMPLANTABLE DEVICES (12/15/2013 11:49 AM EDT) Narrative 12/15/2013 11:49 AM EDT Procedure Note Provider, Scanning - 12/15/2013 11:49 AM EDT Scanning Provider MEDIA MGR SCAN EXT ORDR/RSLT POCT Glucose (12/14/2013 11:35 AM EDT) athologist Signature POC Glucose 127 60 - 199 CERNER mg/dL MILLENNIUM Comment: Supplemental ranges: <110 mg/dL before meals <200 mg/dL all other times of the day Specimen Anatomical Collection Method Collection Time Receive d Time (Source) Location / / Volume Laterality Blood specimen 12/14/2013 11:35 4 (specimen) AM EDT 11:35 AM EDT Juan Jose Del Rosario MD POINT OF CARE TEST ORDERABLE S Performing Organization Address City/[facility]/ZIP Code Phon e Number [address] CERNER MILLENNIUM POCT Glucose (12/14/2013 7:12 AM EDT) athologist Signature POC Glucose 156 60 - 199 CERNER mg/dL MILLENNIUM Comment: Supplemental ranges: <110 mg/dL before meals <200 mg/dL all other times of the day Specimen Anatomical Collection Method Collection Time Receive d Time (Source) Location / / Volume Laterality Blood specimen 12/14/2013 7:12 AM 2 014 7:12 (specimen) EDT AM EDT Juan Jose Del Rosario MD POINT OF CARE TEST ORDERABLE S Performing Organization Address City/[facility]/ZIP Code Phon e Number [address] CERNER MILLENNIUM POCT Glucose (12/14/2013 4:37 AM EDT) athologist Signature POC Glucose 144 60 - 199 CERNER mg/dL MILLENNIUM Comment: Supplemental ranges: <110 mg/dL before meals <200 mg/dL all other times of the day Specimen Anatomical Collection Method Collection Time Receive d Time (Source) Location / / Volume Laterality Blood specimen 12/14/2013 4:37 AM 014 4:37 (specimen) EDT AM EDT Juan Jose Del Rosario MD POINT OF CARE TEST ORDERABLE S Performing Organization Address City/[facility]/ZIP Code Phon e Number [address] CERNER MILLENNIUM Nucleated Red Blood Cells (12/14/2013 4:00 AM EDT) P athologist Signature nRBC % Auto 0.0 0.0 - 0.2 CERNER % MILLENNIUM nRBC Abs Auto 0.000 0.000 - CERNER 0.012 MILLENNIUM x10(3)/mcL Specimen Anatomical Collection Method Collection Time Receive d Time (Source) Location / / Volume Laterality Blood specimen 12/14/2013 4:00 AM 014 4:35 (specimen) EDT AM EDT Resulting Agency Comment Spec In Lab Juan Jose Del Rosario MD HEMATOLOGY ORDERABLES Performing Organization Address City/[facility]/ZIP Code Phon e Number [address] CERNER MILLENNIUM (ABNORMAL) Differential, Automated (12/14/2013 4:00 AM EDT) Patholo gist Method Time Signature Neutrophils % 74.9 (H) 34.0 - CERNER 71.0 % MILLENNIUM Neutr Abs (ANC) 6.86 (H) 1.50 - CERNER 6.30 MILLENNIUM x10(3)/mc L Lymphocytes % 10.9 (L) 19.0 - CERNER 53.0 % MILLENNIUM Lymphocytes Abs 1.0 1.0 - 3.6 CERNER x10(3)/mc MILLENNIUM L Monocytes % 13.7 (H) 4.0 - CERNER 13.0 % MILLENNIUM Monocyte Abs 1.3 (H) 0.2 - 1.0 CERNER x10(3)/mc MILLENNIUM L Eosinophils % 0.3 0.0 - 7.0 CERNER % MILLENNIUM Eosinophils Abs 0.0 0.0 - 0.5 CERNER x10(3)/mc MILLENNIUM L Basophils % 0.1 0.0 - 2.0 CERNER % MILLENNIUM Basophils Abs 0.0 0.0 - 0.2 CERNER x10(3)/mc MILLENNIUM L Immature Gran % 0.10 0.00 - CERNER 0.66 % MILLENNIUM Comment: Immature granulocytes(IG's)percentage an d absolute count will include metamyelocytes, myelocytes, and promyelo cytes. Blood smears from CBCs yielding IG's will be scanned manually for concor dance. If this scan disagrees with the automated IG or if promyelocytes are not ed, a manual differential will be performed. Carolin Gran Abs 0.01 0.00 - 0.05 x10(3)/mcL CER NER MILLENNIUM Specimen Anatomical Collection Method Collection Time Receive d Time (Source) Location / / Volume Laterality Blood specimen 12/14/2013 4:00 AM 014 4:35 (specimen) EDT AM EDT Resulting Agency Comment Spec In Lab Juan Jose Del Rosario MD HEMATOLOGY ORDERABLES Performing Organization Address City/State/ZIP Code Phon e Number [place] [id number] CERNER MILLENNIUM (ABNORMAL) Hemogram (12/14/2013 4:00 AM EDT) P athologist Signature WBC 9.2 4.0 - 10.0 CERNER x10(3)/mcL MILLENNIUM RBC 3.68 (L) 4.63 - CERNER 6.08 MILLENNIUM x10(6)/mcL Hemoglobin 11.3 (L) 13.7 - CERNER 17.5 gm/dL MILLENNIUM Hematocrit 33.5 (L) 40.0 - CERNER 51.0 % MILLENNIUM MCV 91.0 79.0 - CERNER 92.0 fL MILLENNIUM MCH 30.7 25.6 - CERNER 32.2 pg MILLENNIUM MCHC 33.7 32.0 - CERNER 36.5 gm/dL MILLENNIUM Platelets 152 145 - 370 CERNER x10(3)/mcL MILLENNIUM RDWSD 46.6 (H) 35.0 - CERNER 46.0 fL MILLENNIUM RDWCV 13.9 10.9 - CERNER 14.4 % [facility] MPV 11.3 9.0 - 12.0 CERNER [facility] Specimen Anatomical Collection Method Collection Time Receive d Time (Source) Location / / Volume Laterality Blood specimen 12/14/2013 4:00 AM 014 4:35 (specimen) EDT AM EDT Resulting Agency Comment Spec In Lab Juan Jose Del Rosario MD HEMATOLOGY ORDERABLES Performing Organization Address [facility] Phon e Number [address] CERNER MILLENNIUM (ABNORMAL) Prothrombin Time (12/14/2013 4:00 AM EDT) athologist Signature PT 17.2 (H) 12.0 - 15.0 CERNER sec MILLENNIUM Comment: [facility] Transfusion Committee Guidelines: I NR less than 2.0, PTT less than OR equal to 43.5 seconds, or Fibrinogen gre ater than or equal to 100 mg/dl indicate adequate procoagulant activity for hemostasis in patients without underlying bleeding disorders. INR 1.4 (H) 0.9 - 1.1 [facility] Specimen Anatomical Collection Method Collection Time Receive d Time (Source) Location / / Volume Laterality Blood specimen 12/14/2013 4:00 AM 014 4:35 (specimen) EDT AM EDT Resulting Agency Comment Spec In Lab Juan Jose Del Rosario MD HEMATOLOGY ORDERABLES Performing Organization Address City/[facility]/ZIP [facility] Phon e Number [address] [facility] MILLENNIUM (ABNORMAL) Basic Metabolic Panel (non-fasting) (12/14/2013 4:00 AM EDT) athologist Signature Glucose Lvl 151 60 - 199 [facility] mg[facility]dL [facility] Comment: Diabetes: >=200 mg/dL plus symp toms BUN 13 10 - 20 mg/dL CERNER MILLENNIU M Creatinine 1.04 0.80 - 1.50 mg/dL [facility] MILL ENNIUM Comment: Please note that the pediatric reference intervals supplied above were not validated at [facility]. Results from pediatri c patients should be interpreted in conjunction to the patient's age, height and muscle mass. Sodium 138 135 - 145 mmol/L CERNER JITENDRA NIUM Potassium 3.4 (L) 3.5 - 5.0 mmol/L CERNER JITENDRA NIUM Comment: Please note: ??Patients with WBC >100,00 0 may have falsely elevated Potassium levels. ??For accurate Potassium quantif ication in these patients send serum separator tube (gold top) for subsequent determinations. ??Contact the Clinical Chemistry Laboratory if there are any qu estions. Chloride 97 (L) 98 - 107 mmol/L CERNER MILLENN IUM CO2 25 22 - 31 mmol/L CERNER MILLENNI UM Anion Gap 16 (H) 5 - 15 mmol/L CERNER MILLENNIU M Calcium 9.0 8.5 - 10.5 mg/dL CERNER JITENDRA NIUM Estimated GFR >60 >=60 CERNER MILLENNIU M Comment: This estimated GFR (eGFR) value was calc ulated using the MDRD equation which has been validated on patients between t he ages of 18 and 70. The MDRD should not be used to assess kidney function in patients < 18 years of age or in patients with extremes of body mass, or in patients with acute kidney failure. This value should be multiplied by 1.2 f or patients. For further information please copy and past e the following links into your internet browser. http://www.nkdep.nih.gov/lab-evaluation. shtml http://www.kidney.org/professionals/ Specimen Anatomical Collection Method Collection Time Receive d Time (Source) Location / / Volume Laterality Blood specimen 12/14/2013 4:00 AM 014 4:35 (specimen) EDT AM EDT Resulting Agency Comment Spec In Lab Juan Jose Del Rosario MD CHEMISTRY ORDERABLES Performing Organization Address City/State/[place] [address] CERNER MILLENNIUM POCT Glucose (12/13/2013 11:59 PM EDT) P athologist Signature POC Glucose 133 60 - 199 CERNER mg/dL MILLENNIUM Comment: Supplemental ranges: <110 mg/dL before meals <200 mg/dL all other times of the day Specimen Anatomical Collection Method Collection Time Receive d Time (Source) Location / / Volume Laterality Blood specimen 12/13/2013 11:59 201 4 (specimen) PM EDT 11:59 PM EDT Juan Jose Del Rosario MD POINT OF CARE TEST ORDERABLE S Performing Organization Address City/[facility]/ZIP Code Phon e Number [address] CERNER MILLENNIUM POCT Glucose (12/13/2013 8:23 PM EDT) athologist Signature POC Glucose 125 60 - 199 CERNER mg/dL MILLENNIUM Comment: Supplemental ranges: <110 mg/dL before meals <200 mg/dL all other times of the day Specimen Anatomical Collection Method Collection Time Receive d Time (Source) Location / / Volume Laterality Blood specimen 12/13/2013 8:23 PM 014 8:23 (specimen) EDT PM EDT Juan Jose Del Rosario MD POINT OF CARE TEST ORDERABLE S Performing Organization Address City/[facility]/ZIP Code Phon e Number [address] CERNER MILLENNIUM POCT Glucose (12/13/2013 5:08 PM EDT) athologist Signature POC Glucose 150 60 - 199 CERNER mg/dL MILLENNIUM Comment: Supplemental ranges: <110 mg/dL before meals <200 mg/dL all other times of the day Specimen Anatomical Collection Method Collection Time Receive d Time (Source) Location / / Volume Laterality Blood specimen 12/13/2013 5:08 PM 014 5:08 (specimen) EDT PM EDT Juan Jose Del Rosario MD POINT OF CARE TEST ORDERABLE S Performing Organization Address City/State/ZIP Code Phon e Number [address] CERNER MILLENNIUM POCT Glucose (12/13/2013 11:54 AM EDT) athologist Signature POC Glucose 135 60 - 199 CERNER mg/dL MILLENNIUM Comment: Supplemental ranges: <110 mg/dL before meals <200 mg/dL all other times of the day Specimen Anatomical Collection Method Collection Time Receive d Time (Source) Location / / Volume Laterality Blood specimen 12/13/2013 11:54 201 4 (specimen) AM EDT 11:54 AM EDT Juan Jose Del Rosario MD POINT OF CARE TEST ORDERABLE S Performing Organization Address City/[facility]/ZIP Code Phon e Number [address] CERNER MILLENNIUM POCT Glucose (12/13/2013 7:51 AM EDT) P athologist Signature POC Glucose 168 60 - 199 CERNER mg/dL MILLENNIUM Comment: Supplemental ranges: <110 mg/dL before meals <200 mg/dL all other times of the day Specimen Anatomical Collection Method Collection Time Receive d Time (Source) Location / / Volume Laterality Blood specimen 12/13/2013 7:51 AM 014 7:51 (specimen) EDT AM EDT Juan Jose Del Rosario MD POINT OF CARE TEST ORDERABLE S Performing Organization Address City/[facility]/ZIP [place] [address] CERNER MILLENNIUM POCT Glucose (12/13/2013 3:47 AM EDT) athologist Signature POC Glucose 144 60 - 199 CERNER mg/dL ENNIUM Comment: Supplemental ranges: <110 mg/dL before meals <200 mg/dL all other times of the day Specimen Anatomical Collection Method Collection Time Receive d Time (Source) Location / / Volume Laterality Blood specimen 12/13/2013 3:47 AM 014 3:47 (specimen) EDT AM EDT Juan Jose Del Rosario MD POINT OF CARE TEST ORDERABLE S Performing Organization Address City/[facility]/ZIP Code Phon e Number [address] CERNER MILLENNIUM (ABNORMAL) Differential, Automated (12/13/2013 3:25 AM EDT) [facility] gist Method Time Signature Neutrophils % 70.2 34.0 - CERNER 71.0 % MILLENNIUM Neutr Abs (ANC) 6.80 (H) 1.50 - CERNER 6.30 MILLENNIUM x10(3)/mc L Lymphocytes % 14.9 (L) 19.0 - CERNER 53.0 % MILLENNIUM Lymphocytes Abs 1.4 1.0 - 3.6 CERNER x10(3)/mc MILLENNIUM L Monocytes % 14.3 (H) 4.0 - CERNER 13.0 % MILLENNIUM Monocyte Abs 1.4 (H) 0.2 - 1.0 CERNER x10(3)/mc MILLENNIUM L Eosinophils % 0.1 0.0 - 7.0 CERNER % MILLENNIUM Eosinophils Abs 0.0 0.0 - 0.5 CERNER x10(3)/mc MILLENNIUM L Basophils % 0.2 0.0 - 2.0 CERNER % MILLENNIUM Basophils Abs 0.0 0.0 - 0.2 CERNER x10(3)/mc MILLENNIUM L Immature Gran % 0.30 0.00 - CERNER 0.66 % MILLENNIUM Comment: Immature granulocytes(IG's)percentage an d absolute count will include metamyelocytes, myelocytes, and promyelo cytes. Blood smears from CBCs yielding IG's will be scanned manually for concor dance. If this scan disagrees with the automated IG or if promyelocytes are not ed, a manual differential will be performed. Carolin Gran Abs 0.03 0.00 - 0.05 x10(3)/mcL CER NER MILLENNIUM Specimen Anatomical Collection Method Collection Time Receive d Time (Source) Location / / Volume Laterality Blood specimen 12/13/2013 3:25 AM 014 4:01 (specimen) EDT AM EDT Resulting Agency Comment Spec In Lab Juan Jose Del Rosario MD HEMATOLOGY ORDERABLES Performing Organization Address City/State/[place] [address] CERNER MILLENNIUM (ABNORMAL) Hemogram (12/13/2013 3:25 AM EDT) P athologist Signature WBC 9.7 4.0 - 10.0 CERNER x10(3)/mcL MILLENNIUM RBC 3.80 (L) 4.63 - CERNER 6.08 MILLENNIUM x10(6)/mcL Hemoglobin 11.6 (L) 13.7 - CERNER 17.5 gm/dL MILLENNIUM Hematocrit 34.6 (L) 40.0 - CERNER 51.0 % MILLENNIUM MCV 91.1 79.0 - CERNER 92.0 fL MILLENNIUM MCH 30.5 25.6 - CERNER 32.2 pg MILLENNIUM MCHC 33.5 32.0 - CERNER 36.5 gm/dL ENNIUM Platelets 141 (L) 145 - 370 CERNER x10(3)/mcL ENNIUM RDWSD 45.8 35.0 - CERNER 46.0 fL MILLENNIUM RDWCV 13.8 10.9 - CERNER 14.4 % MILLENNIUM MPV 11.5 9.0 - 12.0 CERNER fL MILLENNIUM Specimen Anatomical Collection Method Collection Time Receive d Time (Source) Location / / Volume Laterality Blood specimen 12/13/2013 3:25 AM 014 4:01 (specimen) EDT AM EDT Resulting Agency Comment Spec In Lab Juan Jose Del Rosario MD HEMATOLOGY ORDERABLES Performing Organization Address City/[facility] [place] [address] [facility] (ABNORMAL) Prothrombin Time (12/13/2013 3:25 AM EDT) P athologist Signature PT 16.1 (H) 12.0 - 15.0 [facility] Comment: [facility] Transfusion Committee Guidelines: I NR less than 2.0, PTT less than OR equal to 43.5 seconds, or Fibrinogen gre ater than or equal to 100 mg/dl indicate adequate procoagulant activity for hemostasis in patients without underlying bleeding disorders. INR 1.2 (H) 0.9 - 1.1 [facility] Specimen Anatomical Collection Method Collection Time Receive d Time (Source) Location / / Volume Laterality Blood specimen 12/13/2013 3:25 AM 014 4:01 (specimen) EDT AM EDT Resulting Agency Comment Spec In Lab Juan Jose Del Rosario MD HEMATOLOGY ORDERABLES Performing Organization Address City/[facility]/[place] [address] [facility] Basic Metabolic Panel (non-fasting) (12/13/2013 3:25 AM EDT) athologist Signature Glucose Lvl 134 60 - 199 CERNER mg/dL MILLENNIUM Comment: Diabetes: >=200 mg/dL plus symp toms BUN 13 10 - 20 mg/dL CERNER MILLENNIU M Creatinine 1.01 0.80 - 1.50 mg/dL CERNER MILL ENNIUM Comment: Please note that the pediatric reference intervals supplied above were not validated at [facility]. Results from pediatri c patients should be interpreted in conjunction to the patient's age, height and muscle mass. Sodium 138 135 - 145 mmol/L CERNER JITENDRA NIUM Potassium 3.7 3.5 - 5.0 mmol/L CERNER JITENDRA NIUM Comment: Please note: ??Patients with WBC >100,00 0 may have falsely elevated Potassium levels. ??For accurate Potassium quantif ication in these patients send serum separator tube (gold top) for subsequent determinations. ??Contact the Clinical Chemistry Laboratory if there are any qu estions. Chloride 100 98 - 107 mmol/L CERNER MILLENN IUM CO2 26 22 - 31 mmol/L CERNER MILLENNI UM Anion Gap 12 5 - 15 mmol/L CERNER MILLENNIU M Calcium 8.9 8.5 - 10.5 mg/dL CERNER JITENDRA NIUM Estimated GFR >60 >=60 CERNER MILLENNIU M Comment: This estimated GFR (eGFR) value was calc ulated using the MDRD equation which has been validated on patients between t he ages of 18 and 70. The MDRD should not be used to assess kidney function in patients < 18 years of age or in patients with extremes of body mass, or in patients with acute kidney failure. This value should be multiplied by 1.2 f or patients. For further information please copy and past e the following links into your internet browser. http://www.nkdep.nih.gov/lab-evaluation. shtml http://www.kidney.org/professionals/ Specimen Anatomical Collection Method Collection Time Receive d Time (Source) Location / / Volume Laterality Blood specimen 12/13/2013 3:25 AM 014 4:01 (specimen) EDT AM EDT Resulting Agency Comment Spec In Lab Juan Jose Del Rosario MD CHEMISTRY ORDERABLES Performing Organization Address City/State/[place] [address] CERNER MILLENNIUM POCT Glucose (12/13/2013 12:01 AM EDT) athologist Signature POC Glucose 147 60 - 199 CERNER mg/dL MILLENNIUM Comment: Supplemental ranges: <110 mg/dL before meals <200 mg/dL all other times of the day Specimen Anatomical Collection Method Collection Time Receive d Time (Source) Location / / Volume Laterality Blood specimen 12/13/2013 12:01 4 (specimen) AM EDT 12:01 AM EDT Juan Jose Del Rosario MD POINT OF CARE TEST ORDERABLE S Performing Organization Address City/State/[place] [address] CERNER MILLENNIUM POCT Glucose (12/12/2013 8:11 PM EDT) athologist Signature POC Glucose 172 60 - 199 CERNER mg/dL MILLENNIUM Comment: Supplemental ranges: <110 mg/dL before meals <200 mg/dL all other times of the day Specimen Anatomical Collection Method Collection Time Receive d Time (Source) Location / / Volume Laterality Blood specimen 12/12/2013 8:11 PM 014 8:11 (specimen) EDT PM EDT Juan Jose Del Rosario MD POINT OF CARE TEST ORDERABLE S Performing Organization Address City/[facility]/ZIP Code Phon e Number [address] CERNER MILLENNIUM (ABNORMAL) POCT Glucose (12/12/2013 6:47 PM EDT) athologist Signature POC Glucose 234 (H) 60 - 199 CERNER mg/dL MILLENNIUM Comment: Supplemental ranges: <110 mg/dL before meals <200 mg/dL all other times of the day Specimen Anatomical Collection Method Collection Time Receive d Time (Source) Location / / Volume Laterality Blood specimen 12/12/2013 6:47 PM 014 6:47 (specimen) EDT PM EDT Authorizing Provider Result Marzena Del Rosario MD POINT OF CARE TEST ORDERABLE S Performing Organization Address City/State/ZIP Code Phon e Number [address] CERNER MILLENNIUM (ABNORMAL) POCT Glucose (12/12/2013 4:44 PM EDT) athologist Signature POC Glucose 255 (H) 60 - 199 CERNER mg/dL MILLENNIUM Comment: Supplemental ranges: <110 mg/dL before meals <200 mg/dL all other times of the day Specimen Anatomical Collection Method Collection Time Receive d Time (Source) Location / / Volume Laterality Blood specimen 12/12/2013 4:44 PM 014 4:44 (specimen) EDT PM EDT Juan Jose Del Rosario MD POINT OF CARE TEST ORDERABLE S Performing Organization Address City/[facility]/ZIP Code Phon e Number [address] CERNER MILLENNIUM POCT Glucose (12/12/2013 11:49 AM EDT) athologist Signature POC Glucose 167 60 - 199 CERNER mg/dL MILLENNIUM Comment: Supplemental ranges: <110 mg/dL before meals <200 mg/dL all other times of the day Specimen Anatomical Collection Method Collection Time Receive d Time (Source) Location / / Volume Laterality Blood specimen 12/12/2013 11:49 4 (specimen) AM EDT 11:49 AM EDT Juan Jose Del Rosario MD POINT OF CARE TEST ORDERABLE S Performing Organization Address City/[facility]/ZIP Code Phon e Number [facility] [address] CERNER MILLENNIUM POCT Glucose (12/12/2013 7:14 AM EDT) athologist Signature POC Glucose 146 60 - 199 CERNER mg/dL MILLENNIUM Comment: Supplemental ranges: <110 mg/dL before meals <200 mg/dL all other times of the day Specimen Anatomical Collection Method Collection Time Receive d Time (Source) Location / / Volume Laterality Blood specimen 12/12/2013 7:14 AM 014 7:14 (specimen) EDT AM EDT Juan Jose Del Rosario MD POINT OF CARE TEST ORDERABLE S Performing Organization Address City/State/[place] [address] CERNER MILLENNIUM (ABNORMAL) Differential, Automated (12/12/2013 4:20 AM EDT) [facility] Method Time Signature Neutrophils % 72.9 (H) 34.0 - CERNER 71.0 % MILLENNIUM Neutr Abs (ANC) 6.60 (H) 1.50 - CERNER 6.30 MILLENNIUM x10(3)/mc L Lymphocytes % 13.5 (L) 19.0 - CERNER 53.0 % MILLENNIUM Lymphocytes Abs 1.2 1.0 - 3.6 CERNER x10(3)/mc MILLENNIUM L Monocytes % 13.0 4.0 - CERNER 13.0 % MILLENNIUM Monocyte Abs 1.2 (H) 0.2 - 1.0 CERNER x10(3)/mc MILLENNIUM L Eosinophils % 0.2 0.0 - 7.0 CERNER % MILLENNIUM Eosinophils Abs 0.0 0.0 - 0.5 CERNER x10(3)/mc MILLENNIUM L Basophils % 0.2 0.0 - 2.0 CERNER % MILLENNIUM Basophils Abs 0.0 0.0 - 0.2 CERNER x10(3)/mc MILLENNIUM L Immature Gran % 0.20 0.00 - CERNER 0.66 % MILLENNIUM Comment: Immature granulocytes(IG's)percentage an d absolute count will include metamyelocytes, myelocytes, and promyelo cytes. Blood smears from CBCs yielding IG's will be scanned manually for concor dance. If this scan disagrees with the automated IG or if promyelocytes are not ed, a manual differential will be performed. Carolin Gran Abs 0.02 0.00 - 0.05 x10(3)/mcL CER NER MILLENNIUM Specimen Anatomical Collection Method Collection Time Receive d Time (Source) Location / / Volume Laterality Blood specimen 12/12/2013 4:20 AM 014 4:43 (specimen) EDT AM EDT Resulting Agency Comment Spec In Lab Juan Jose Del Rosario MD HEMATOLOGY ORDERABLES Performing Organization Address City/State/[place] [address] CERNER MILLENNIUM (ABNORMAL) Hemogram (12/12/2013 4:20 AM EDT) P athologist Signature WBC 9.1 4.0 - 10.0 CERNER x10(3)/mcL MILLENNIUM RBC 4.01 (L) 4.63 - CERNER 6.08 MILLENNIUM x10(6)/mcL Hemoglobin 12.3 (L) 13.7 - CERNER 17.5 gm/dL MILLENNIUM Hematocrit 36.0 (L) 40.0 - CERNER 51.0 % MILLENNIUM MCV 89.8 79.0 - CERNER 92.0 fL MILLENNIUM MCH 30.7 25.6 - CERNER 32.2 pg MILLENNIUM MCHC 34.2 32.0 - CERNER 36.5 gm/dL MILLENNIUM Platelets 156 145 - 370 CERNER x10(3)/mcL MILLENNIUM RDWSD 44.7 35.0 - CERNER 46.0 fL MILLENNIUM RDWCV 13.6 10.9 - CERNER 14.4 % MILLENNIUM MPV 10.6 9.0 - 12.0 CERNER fL MILLENNIUM Specimen Anatomical Collection Method Collection Time Receive d Time (Source) Location / / Volume Laterality Blood specimen 12/12/2013 4:20 AM 014 4:43 (specimen) EDT AM EDT Resulting Agency Comment Spec In Lab Juan Jose Del Rosario MD HEMATOLOGY ORDERABLES Performing Organization Address City/State/ZIP Code Phon e Number [address] CERNER MILLENNIUM Prothrombin Time (12/12/2013 4:20 AM EDT) P athologist Signature PT 14.4 12.0 - 15.0 CERNER sec MILLENNIUM Comment: [facility] Transfusion Committee Guidelines: I NR less than 2.0, PTT less than OR equal to 43.5 seconds, or Fibrinogen gre ater than or equal to 100 mg/dl indicate adequate procoagulant activity for hemostasis in patients without underlying bleeding disorders. INR 1.1 0.9 - 1.1 CERNER MILLENNIUM Specimen Anatomical Collection Method Collection Time Receive d Time (Source) Location / / Volume Laterality Blood specimen 12/12/2013 4:20 AM 014 4:43 (specimen) EDT AM EDT Resulting Agency Comment Spec In Lab Juan Jose Del Rosario MD HEMATOLOGY ORDERABLES Performing Organization Address City/State/[place] [address] [facility] (ABNORMAL) Hemoglobin A1c (12/12/2013 4:20 AM EDT) [facility] Time Signature Hemoglobin A1C 7.0 (H) <=5.6 % [facility] Comment: As of 2013 the methodology for Hem oglobin A1c testing has changed. This change is accompanied by a new interpret alem statement and flags. Please review the new interpretive statement and conta ct Dr. Monte or Dr. Lanza with questions. Reference Range: 4.3 ? 5.6% 5.7 ? 6.4% - Increased Risk of Developing Diabetes Mellitus 6.5% - Consistent with diagnosis of Diab etes Mellitus In the absence of hyperglycemia (i.e. pl asma glucose > 200 mg/dL) or classic symptoms of hyperglycemia a repeat measu rement of HbA1c should be performed on a separate sample to confirm the diagnos is. Diagnosis and Classification of Diabetes Mellitus, Diabetes Care 2013; 36: Suppl. 1, S67-74 Est Avg Gluc 154 mg/dL [facility] Comment: eAG equivalents for HbA1c percentages: HbA1c(%) ?eAG(mg/dL) 6.0 ?126 6.5 ?140 7.0 ?154 7.5 ?169 8.0 ?183 8.5 ?197 9.0 ?212 9.5 ?226 10.0 ? 240 Limitations: The eAG calculation has not been validated on women, individuals below 18 years old and above 70 years old, and individuals with hemoglobinopathies. Additional resources are available on ADA website: ??http://professional.diabetes.org/gluc osecalculator.aspx Minh LU, Josse J, Brien R, et al. ??Tr anslating the A1C assay into estimated average glucose values. ??Diabetes Care 2008:31(8):9077-7524. Specimen Anatomical Collection Method Collection Time Receive d Time (Source) Location / / Volume Laterality Blood specimen 12/12/2013 4:20 AM 014 4:43 (specimen) EDT AM EDT Resulting Agency Comment Spec In Lab Juan Jose Del Rosario MD CHEMISTRY ORDERABLES Performing Organization Address City/State/[place] [address] CERNER MILLENNIUM Basic Metabolic Panel (non-fasting) (12/12/2013 4:20 AM EDT) athologist Signature Glucose Lvl 163 60 - 199 CERNER mg/dL MILLENNIUM Comment: Diabetes: >=200 mg/dL plus symp toms BUN 16 10 - 20 mg/dL CERNER MILLENNIU M Creatinine 0.97 0.80 - 1.50 mg/dL CERNER MILL ENNIUM Comment: Please note that the pediatric reference intervals supplied above were not validated at [facility]. Results from pediatri c patients should be interpreted in conjunction to the patient's age, height and muscle mass. Sodium 136 135 - 145 mmol/L CERNER JITENDRA NIUM Potassium 4.2 3.5 - 5.0 mmol/L CERNER JITENDRA NIUM Comment: Please note: ??Patients with WBC >100,00 0 may have falsely elevated Potassium levels. ??For accurate Potassium quantif ication in these patients send serum separator tube (gold top) for subsequent determinations. ??Contact the Clinical Chemistry Laboratory if there are any qu estions. Chloride 98 98 - 107 mmol/L CERNER MILLENN IUM CO2 25 22 - 31 mmol/L CERNER MILLENNI UM Anion Gap 13 5 - 15 mmol/L CERNER MILLENNIU M Calcium 8.9 8.5 - 10.5 mg/dL [facility] Estimated GFR >60 >=60 [facility] [place] Comment: This estimated GFR (eGFR) value was calc ulated using the MDRD equation which has been validated on patients between t he ages of 18 and 70. The MDRD should not be used to assess kidney function in patients < 18 years of age or in patients with extremes of body mass, or in patients with acute kidney failure. This value should be multiplied by 1.2 f or patients. For further information please copy and past e the following links into your internet browser. http://www.nkdep.nih.gov/lab-evaluation. shtml http://www.kidney.org/professionals/ Specimen Anatomical Collection Method Collection Time Receive d Time (Source) Location / / Volume Laterality Blood specimen 12/12/2013 4:20 AM 014 4:43 (specimen) EDT AM EDT Resulting Agency Comment Spec In Lab Juan Jose Del Rosario MD CHEMISTRY ORDERABLES Performing Organization Address City/[facility]/ZIP Code Phon e Number [address] CERNER MILLENNIUM POCT Glucose (12/12/2013 3:58 AM EDT) athologist Signature POC Glucose 172 60 - 199 CERNER mg/dL MILLENNIUM Comment: Supplemental ranges: <110 mg/dL before meals <200 mg/dL all other times of the day Specimen Anatomical Collection Method Collection Time Receive d Time (Source) Location / / Volume Laterality Blood specimen 12/12/2013 3:58 AM 014 3:58 (specimen) EDT AM EDT Juan Jose Del Rosario MD POINT OF CARE TEST ORDERABLE S Performing Organization Address City/[facility]/ZIP Code Phon e Number [address] CERNER MILLENNIUM POCT Glucose (12/12/2013 12:19 AM EDT) P athologist Signature POC Glucose 131 60 - 199 CERNER mg/dL MILLENNIUM Comment: Supplemental ranges: <110 mg/dL before meals <200 mg/dL all other times of the day Specimen Anatomical Collection Method Collection Time Receive d Time (Source) Location / / Volume Laterality Blood specimen 12/12/2013 12:19 4 (specimen) AM EDT 12:19 AM EDT Juan Jose Del Rosario MD POINT OF CARE TEST ORDERABLE S Performing Organization Address City/State/[place] [address] CERNER MILLENNIUM (ABNORMAL) POCT Glucose (12/11/2013 8:02 PM EDT) P athologist Signature POC Glucose 238 (H) 60 - 199 CERNER mg/dL [facility] Comment: Supplemental ranges: <110 mg/dL before meals <200 mg/dL all other times of the day Specimen Anatomical Collection Method Collection Time Receive d Time (Source) Location / / Volume Laterality Blood specimen 12/11/2013 8:02 PM 014 8:02 (specimen) EDT PM EDT Juan Jose Del Rosario MD POINT OF CARE TEST ORDERABLE S Performing Organization Address City/[facility]/ZIP Code Phon e Number [address] CERNER MILLENNIUM POCT Glucose (12/11/2013 4:43 PM EDT) P athologist Signature POC Glucose 135 60 - 199 CERNER mg/dL [facility] Comment: Supplemental ranges: <110 mg/dL before meals <200 mg/dL all other times of the day Specimen Anatomical Collection Method Collection Time Receive d Time (Source) Location / / Volume Laterality Blood specimen 12/11/2013 4:43 PM 014 4:43 (specimen) EDT PM EDT Juan Jose Del Rosario MD POINT OF CARE TEST ORDERABLE S Performing Organization Address City/State/[place] [address] CERNER MILLENNIUM Surgical Pathology Report (12/11/2013 1:03 PM EDT) [facility] Time Signature Surgical [facility] ? Provider: ?? JUAN JOSE DEL ROSARIO ?? Pt. Name: ?? LISA ROMO ? Acc #: ?Pt. MRN: ?[id number] ? Col Date: ?? 12/11/2013 ?/Sex: ?1945,(68 years),Male ? Rec Date: ?? 12/11/2013 ?LOC: ?[id number] ? SURGICAL PATHOLOGY ? ---Pathologic Diagnosis--- ? A - Articular bone an d soft tissue consistent with osteoarthritis, right ? knee. ?Gross surgical pathology examination. ? CR-0 ? 12/11/13 ? PPS ? 12/11/13 Verified by: ? Yary Burch DO. ? Pathologist ? (Electronic Si gnature) ? The attending pathologist whose signature appears o n this report has ? reviewed all diagnostic slides and has edited the douglas ss and/or ? microscopic portion of the report in rendering the fi nal pathologic ? diagnosis. ? ---Gross Description--- ? A - Labeled/Fixative: Bone and tissue right knee, odin sh. ? Quantity/Size: Multiple, 10.5 x 7.8 x 3.4 cm in aggre gate. ? Tissue Description: Fragments of yellow-white, hard , irregular bone, ? cartilage and soft tissue. ? Articular Surface: Granular manning-pink. ? Eburnation: Present. ? Osteophytes: Present. ? Sections/Processing: No sections are submitted. ??pps ? ---Clinical Information--- ? Specimen Submitted: ? A - Bone and tissue rt knee ? Clinical History: ? DJD right knee ? Clinical Diagnosis: ? DJD right knee Specimen (Source) Anatomical Collection Method Collection Time Re ceived Time Location / / Volume Laterality 12/11/2013 1:03 PM EDT Juan Jose Del Rosario MD PATHOLOGY/CYTOLOGY ORDERABLE S Performing Organization Address City/[facility]/ZIP Code Phon e Number [address] CERNER MILLENNIUM POCT Glucose (12/11/2013 1:02 PM EDT) P athologist Signature POC Glucose 105 60 - 199 CERNER mg/dL [facility] Comment: Supplemental ranges: <110 mg/dL before meals <200 mg/dL all other times of the day Specimen Anatomical Collection Method Collection Time Receive d Time (Source) Location / / Volume Laterality Blood specimen 12/11/2013 1:02 PM 014 1:02 (specimen) EDT PM EDT Juan Jose Del Rosario MD POINT OF CARE TEST ORDERABLE S Performing Organization Address City/[facility]/ZIP Code Phon e Number [address] CERNER MILLENNIUM Specimen to Pathology (surgical or derm) (12/11/2013 11:25 AM EDT) Specimen Anatomical Collection Method Collection Time Receive d Time (Source) Location / / Volume Laterality AP Specimen 12/11/2013 11:25 12/11/2013 AM EDT 11:25 AM EDT Narrative CERNER MILLENNIUM - 12/11/2013 11:25 AM EDT Specimen requisition ordered. ??Separate Pathology report to follow Juan Jose Del Rosario MD PATHOLOGY/CYTOLOGY ORDERABLE S Performing Organization Address City/[facility]/[place] [address] CERNER MILLENNIUM POCT Glucose (12/11/2013 8:46 AM EDT) P athologist Signature POC Glucose 143 60 - 199 CERNER mg/dL [facility] Comment: Supplemental ranges: <110 mg/dL before meals <200 mg/dL all other times of the day Specimen Anatomical Collection Method Collection Time Receive d Time (Source) Location / / Volume Laterality Blood specimen 12/11/2013 8:46 AM 014 8:46 (specimen) EDT AM EDT Juan Jose Del Rosario MD POINT OF CARE TEST ORDERABLE S Performing Organization Address City/State/[place] [address] [facility] documented in this encounter Visit Diagnoses Not on filedocumented in this encounter Administered Medications Inactive Administered Medications - up to 3 most recent administrations Medication Order MAR Action Action Date Dose Rate Site bacitracin injection Given 12/11/2013 11:33 50,000 Units 19- Surgica l Site ONCE PRN, Starting on AM EDT Wed12/11/13 at 1133, Until Wed12/11/13 at 1432, Intra-Operative (Intra-Procedure), Routine documented in this encounter Active and Recently Administered Medications Times are shown in EDT. Scheduled Medication Order 12/12/2013 12/13/2013 12/14/2013 acetaminophen (TYLENOL) tablet 1,000 mg 0507 (Given - Provider: Jonathan Graves, MARY)1446 (Given - Provider: Isela Ogden RN)2122 (Given - Provider: Jonathan Graves RN) 0504 (Given - Provider: Jonathan keating RN)1336 (Given - Provider: Jenni Burden, MARY)2212 (Given - Provider: Layne Logan, MARY) 0549 (Given - Provider: Layne Logan RN)1332 (Given - Provider: Apoorva Easley, MARY) 1,000 mg, Oral, EVERY 8 HOURS SCHEDULED, First dose on Wed12/11/13 at 1630, Until Discontinued, Maximum dose of acetaminophen is 4000 mg from all sources in 24 hours., Routine amLODIPine (NORVASC) tablet 2.5 mg (CANCELED) 0824 (Gi gayr - Provider: Isela Ogden RN) 0830 (Given - Provider: Jenni Burden, MARY) 0839 (Gi gary - Provider: Apoorva Easley, MARY) 2.5 mg, Oral, DAILY, First dose on Wed at 1800, Until Discontinued, Routine atorvastatin (LIPITOR) tablet 80 mg (CANCELED) 823 ([place]ash[place] lakeen - Provider: Isela Ogden RN) 08 (Given - Provider: Jenni Burden, MARY) 08 (Gi gary - Provider: Apoorva Easley, MARY) 80 mg, Oral, DAILY, First dose on 08/25 at 1700, Until Discontinued, Routine buPROPion (WELLBUTRIN SR) SR tablet 150 mg (CANCELED) 824 (Given - Provider: Isela Ogden, RN)2042 (Given - Provider: Jonathan Graves, RN) 08 (Given - Provider: Jenni Burden, MARY)2211 (Given - Provider: Layne Logan RN) 08 (Given - Provider: Apoorva Easley, MARY) 150 mg, Oral, 2 TIMES DAILY, First dose on Wed12/11/13 at 2100, Until Discontinued, Routine ceFAZolin (ANCEF) 1g in dextrose 5% 50mL (COMPLETED) 0 258 (New Bag - Provider: Jonathan Graves, RN)1050 (New Bag - Provider: Isela Ogden, MARY) 1 g = 1,000 mg, Intravenous, EVERY 8 BIJAL RS, 3 doses, First dose on Wed12/11/13 at 1330, Last dose on Wed12/12/13 at 0530, for 30 Minutes, For 3 doses postoperatively. Adjust to 8 hours from intraoperative dose., Recovery (Recovery-Hospital Unit ), Indication for (Active or Suspected): Prophylaxis enoxaparin (LOVENOX) injection 40 mg (COMPLETED) 1337 (Given - Provider: Jenni Burden, MARY) 40 mg, Subcutaneous, ONCE, 1 dose, 12/13/13 at 1300, Routine enoxaparin (LOVENOX) injection 40 mg (COMPLETED) 09 (Given - Provider: Apoorva Easley, MARY) 40 mg, Subcutaneous, ONCE, 1 dose, Lacey 12/14/13 at 0900, Routine esomeprazole (NEXIUM) capsule 40 mg (CANCELED) 825 ([place]en - Provider: Isela Ogden RN) 08 (Given - Provider: Jenni Burden RN) 0839 (Gi gary - Provider: Apoorva Easley, MARY) 40 mg, Oral, DAILY, First dose on 08/25 at 1800, Until Discontinued, Routine ferrous sulfate EC tablet 325 mg (CANCELED) 0825 (Give n - Provider: Isela Ogden RN)2042 (Given - Provider: Jonathan Graves, MARY) 0832 (Given - Provider: Jenni Burden, MARY)221 (Given - Provider: Layne Logan, MARY) 0839 (Given - Provider: Apoorva Easley, MARY) 325 mg, Oral, 2 TIMES DAILY, First dose on Wed12/11/13 at 2100, Until Discontinued, Take with food or a glass of water, Routine furosemide (LASIX) tablet 80 mg (CANCELED) 0826 (Given - Provider: Isela Ogden RN)2042 (Given - Provider: Jonathan Graves, MARY) 0835 (Given - Provider: Jenni Burden, MARY)221 (Given - Provider: Layne Logan, MARY) 0840 (Given - Provider: Apoorva Easley, MARY) 80 mg, Oral, 2 TIMES DAILY, First dose o n e 12/12/13 at 0900, Until Discontinued, Routine insulin aspart (novoLOG) VIAL injection 1-4 Units (CAN CELED) 0000 (Not Given - Provider: Jonathan Graves RN - Reason: Order parameters not met)0420 (Given - Provider: Jonathan Graves, MARY)0828 (Given - Provider: Isela Ogden RN)1212 (Given - Provider: Isela Ogden, MARY) 0015 (Given - Provider: Jonathan Graves, MARY)0400 (Not Given - Provider: Jonathan Graves RN - Reason: Patient/family refused)0838 (Given - Provider: Jenni Burden, MARY) 0000 (Not Given - Provider: Layne Logan RN - Reason: Order parameters not met)0450 (Given - Provider: Layne Logan, MARY)0730 (Given - Provider: Layne Logan, MARY) 1-4 Units, Subcutaneous, EVERY 4 HOURS S CHEDULED, First dose on Wed12/11/13 at 2015, Until Discontinued, CORRECTION BOLUS Sensitive to insulin lean patient or total daily dose of all insulin needed t 165 (Given - Provider: Isela Ogden RN)2043 (Given - Provider: Jonathan Graves, MARY) 1200 (Not Given - Provider: Jenni Burden RN - Reason: Order parameters not met)173 (Given - Provider: Jenni Burden, MARY)1999 (Not Given - Provider: Layne Logan RN - Reason: Order parameters not met) 113 (Not Given - Provider: Apoorva gant RN - Reason: Order parameters not met) o achieve glycemic control less than 30 units BG 140 - 160 Give 1 unit BG 161 - 200 Give 2 units BG 201 - 240 Give 3 units BG greater than 240, give 4 units and recheck BG in 2 hours. If BG remains grea ter than 240, repeat 4 units (no more th an three times) & call for new basal insulin orders. If less than 240 after two hours, give no insulin and resume prior schedule., Routine losartan (COZAAR) tablet 100 mg (CANCELED) 0825 (Given - Provider: Isela Ogden RN) 0833 (Given - Provider: Jenni Burden RN) 0840 (Gi gary - Provider: Apoorva Easley RN) 100 mg, Oral, DAILY, First dose on Wed at 1800, Until Discontinued, Routine metFORMIN (GLUCOPHAGE) tablet 1,000 mg (CANCELED) 0825 (Given - Provider: Isela Ogden RN)1650 (Given - Provider: Isela Ogden RN) 0833 (Given - Provider: Jenni Burden, MARY)173 (Given - Provider: Jenni Burden, MARY) 0730 (Given - Provider: Layne Logan, MARY) 1,000 mg, Oral, 2 TIMES DAILY WITH MEALS , First dose on Wed12/11/13 at 1700, Until Discontinued, Routine metoprolol tartrate (LOPRESSOR) tablet 50 mg (CANCELED ) 0900 (Not Given - Provider: Isela Ogden RN - Reason: See comment - Comment: HR 60 bpm)2043 (Given - Provider: Jonathan Graves RN) 0832 (Given - Provider: Jenni Burden RN)2220 (Given - Provider: Layne Logan RN) 0840 (Given - Provider: Apoorva Easley, MARY) 50 mg, Oral, EVERY 12 HOURS SCHEDULED (2 times per day), First dose on Wed12/11/13 at 2100, Until Discontinued, Routine multivitamin Lzvy-Vr-UP-Min (THERAPEUTIC -M) 27-0.4 mg tablet 1 tablet (CANCELED) 0825 (Given - Provider: Isela Ogden RN) 0834 (Give n - Provider: Jenni Burden, MARY) 0840 (Given - Provider: Apoorva Easley , MARY) 1 tablet, Oral, DAILY, First dose on Wed12/11/13 at 1800, Until Discontinued, Routine penicillin v potassium (VEETID) tablet 500 mg (CANCELE D) 0825 (Given - Provider: Isela Ogden RN)2041 (Given - Provider: Jonathan Graves, MARY) 0834 (Given - Provider: Jenni Burden, MARY)2219 (Given - Provider: Layne Logan RN) 0840 (Given - Provider: Apoorva Easley, MARY) 500 mg, Oral, 2 TIMES DAILY, First dose on Wed12/11/13 at 2100, Until Discontinued, Routine polyethylene glycol (MIRALAX) packet 17 g 0828 (Given - Provider: Isela Ogden RN)2040 (Given - Provider: Jonathan Graves, MARY) 0830 (Given - Provider: Jenni Burden, MARY)2212 (Not Given - Provider: Layne Logan RN - Reason: Patient/family refused) 0840 (Given - Provider: Apoorva Easley , MARY) 17 g, Oral, 2 TIMES DAILY, First dose on Wed12/11/13 at 2100, Until Discontinued, Administer if needed per patient's routine or if no bowel movement within 48 hours, Routine potassium chloride (K-DUR/KLOR-CON) extended release t ablet 20 mEq (CANCELED) 0825 (Given - Provider: Isela Ogden RN)2041 (Given - Provider: Jonathan Graves, MARY) 0835 (Given - Provider: Jenni Burden , MARY)221 (Given - Provider: Layne Logan RN) 0840 (Given - Provider: Apoorva Easley RN) 20 mEq, Oral, 2 TIMES DAILY, First dose on Wed12/11/13 at 2100, Until Discontinued, 20 mEq tablet may be dissolved in water for administration, Routine potassium chloride (K-DUR/KLOR-CON) extended release tablet 40 mEq (COMPLETED) 1223 (Given - Provider: Apoorva Easley RN) 40 mEq, Oral, ONCE, 1 dose, Lacey 12/14/13 a t 1200, 20 mEq tablet may be dissolved in water for administration, Routine senna-docusate (PERICOLACE) 8.6-50 mg per tablet 1-4 t ablet 0824 (Given - Provider: Isela Ogden RN)2041 (Given - Provider: Jonathan Graves RN) 0833 (Given - Provider: Jenni Burden RN)221 (Given - Provider: Layne Logan RN) 0840 (Given - Provider: Apoorva Easley RN) 1-4 tablet, Oral, 2 TIMES DAILY, First d ose on Wed12/11/13 at 2100, Until Discontinued, Start with 1 tablet or liquid equivalent orally twice daily and titrate up to achieve: 1. One bowel movement at maria a st every 48 hours, AND 2. Without straining, Routine sodium chloride 0.9 % flush 5 mL (CANCELED) 0828 (Give n - Provider: Isela Ogden RN)2044 (Given - Provider: Jonathan Graves RN) 0835 (Given - Provider: Jenni Burden RN)221 (Given - Provider: Layne Logan RN) 0840 (Given - Provider: Apoorva Easley RN) 5 mL, Intravenous, 2 TIMES DAILY, First dose on Wed12/11/13 at 2100, Until Discontinued, Recovery (Recovery-Hospital Unit), Routine warfarin (COUMADIN) tablet 5 mg (COMPLETED) 165 (Give n - Provider: Isela Ogden RN) 5 mg, Oral, ONCE, 1 dose, Tu12/12/13 at 1700, Routine warfarin (COUMADIN) tablet 7.5 mg (COMPLETED) 1733 (Given - Provider: Jenni Burden RN) 7.5 mg, Oral, ONCE, 1 dose, Wed12/13/13 at 1700, Routine warfarin (COUMADIN) tablet 7.5 mg 7.5 mg, Oral, ONCE, 1 dose, Wed12/14/13 at 1700, Routine Continuous Medication Order 12/12/2013 12/13/2013 12/14/2013 lactated ringers infusion 500 mL (CANCELED) 2001 (New Bag - Provider: Layne Logan RN)2199 (Stopped - Provider: Layne Logan RN) 500 mL, at 1,000 mL/hr, Intravenous, CON TINUOUS, Starting Wed12/13/13 at 2000, Until Wed12/14/13 at 1626 PRN Medication Order 12/12/2013 12/13/2013 12/14/2013 albuterol (PROVENTIL HFA;VENTOLIN HFA) 9 0 mcg/actuation inhaler 2 puff (CANCELED) 1050 (Given - Provider: Isela Ogden RN) 0455 (Given - Provider: Layne Logan RN) 2 puff, Inhalation, EVERY 4 HOURS PRN, S tarting Wed12/11/13 at 1539, Until Wed12/14/13 at 1626, Wheezing, Routine bisacodyl (DULCOLAX) suppository 10 mg 10 mg, Rectal, DAILY PRN, Starting Wed at 1539, Until Wed12/14/13 at 1626, Constipation, Administer if needed per patient's routine or if no bowel movement within 48 hours, Routine oxyCODONE (ROXICODONE) immediate release tablet 10 mg (CANCELED) 0420 (Given - Provider: Jonathan Graves RN)0920 (Given - Provider: Isela Ogden RN)1446 (See Alternative - Provider: Isela Ogden RN)2122 (See Alternative - Provider: Jonathan Graves RN) 0836 (Given - Provider: Jenni Burden , MARY)1316 (Given - Provider: Jenni Burden, MARY)1733 (Given - Provider: Jenni Burden, RN)2219 (See Alternative - Provider: Layne Logan RN) 0242 (See Alternative - Provider: Layne Logan RN)0922 (See Alternative - Provider: Apoorva Easley RN)1332 (See Alternative - Provider: Apoorva Easley RN) 10 mg, Oral, EVERY 4 HOURS PRN, Starting 12/11/13 at 1302, Until Lacey 6 at 1626, Pain, moderate pain, For Moderate pain. Do not exceed 15 mg in 4 hours. If pain not relieved, call provider., Routine oxyCODONE (ROXICODONE) immediate release tablet 15 mg (CANCELED) 0420 (See Alternative - Provider: Jonathan Graves RN)0920 (See Alternative - Provider: Isela Ogden, RN)1446 (Given - Provider: Isela Ogden, MARY)2122 (Given - Provider: Jonathan Graves RN) 0836 (See Alternative - Provider: Raji Burden, MARY)1316 (See Alternative - Provider: Jenni Burden, MARY)1733 (See Alternative - Provider: Jenni Burden, MARY)2219 (See Alternative - Provider: Bertrand Logan RN) 0242 (See Alternative - Provider: Layne Logan RN)0922 (See Alternative - Provider: Apoorva Easley RN)1332 (See Alternative - Provider: Apoorva Easley RN) 15 mg, Oral, EVERY 4 HOURS PRN, Starting 12/11/13 at 1302, Until Lacey 6 at 1626, Pain, severe pain, For severe pain. Do not exceed 15 mg in 4 hours. If pain not relieved, call provider., Routine oxyCODONE (ROXICODONE) immediate release tablet 5 mg 0 420 (See Alternative - Provider: Jonathan Graves RN)0920 (See Alternative - Provider: Isela Ogden, MARY)1446 (See Alternative - Provider: Isela Ogden, RN)2122 (See Alternative - Provider: Jonathan Graves RN) 0836 (See Alternative - Provider: Jenni Burden, MARY)1316 (See Alternative - Provider: Jenni Burden, MARY)1733 (See Alternative - Provider: Jenni Burden, MARY)2219 (Given - Provider: Layne Logan RN) 0242 (Given - Provider: Layne Logan RN)0922 (Given - Provider: Apoorva Easley RN)1332 (Given - Provider: Apoorva Easley RN) 5 mg, Oral, EVERY 4 HOURS PRN, Starting 12/11/13 at 1302, Until Lacey 12/14/13 at 1626, Pain, mild pain, For Mild pain. Do not exceed 15 mg in 4 hours. If pain not relieved, call provider, Routine documented in this encounter Care Teams Baby Formula Mixer Relationship Specialty Start Date End Date Candace Braga, MELISSA PCP - General 04/03/11 01/17/15 [address] [place] [address] documented as of this encounter
--- OUTSIDE RECORDS SUMMARY | 2022-01-28 01:20 | XMS_ITS | Encounter Summary ---
:1945 Author Organization [facility] [place] [address] Care Team Providers Name Role Phone Candace Avery MELISSA Primary Care Provider Encounter Details Date Type Department Care Team Description 12/25/2013 [place] [facility] [place] [phone] Social History Tobacco Use Types Packs/Day Years Used Date Never Smoker Smokeless Tobacco: Never Used Alcohol Use Standard Drinks/Week Comments No 0 (1 standard drink = 0.6 oz pure alcoho l) Sex Assigned at Date Recorded Not on file documented as of this encounter Progress Notes Paulina Rajput, RN - 12/25/2013 2:54 PM EDT Anticoagulation Therapy Nurse Visit [facility] Romo [address] Dr[address] Del Rosario Indication: DVT Prophylaxis S/P Joint Replacement Duration of Treatment: 28 days ends: January 08, 2014 Therapeutic Range: 2.0-3.0 INR: 3.0 Drawn by: [facility] Patient presents with no signs of [...] Garcia APRN [facility] [place], [place] [address] (Wo rk) documented as of this encounter Procedures Procedure Name Priority Date/Time Associated Diagnosis Comme nts EXTERNAL LAB RESULTS Routine 12/25/2013 Results for this procedure are i n the results section . documented in this encounter Results (ABNORMAL) External Lab Results (12/25/2013) P athologist Signature POC INR 3.0 0.9 - 1.1 (External Lab) Specimen (Source) Anatomical Location Collection Method / Collectio n Time Received Time / Laterality Volume 12/25/2013 Historical Provider CHEMISTRY ORDERABLES documented in this encounter Visit Diagnoses Not on filedocumented in this encounter Care Teams Clinic Office Assistant Relationship Specialty Start Date End Date Candace Avrey APRN PCP - General 04/03/11 01/17/15 CAROLYN [address] [place] [address] documented as of this encounter
--- OUTSIDE RECORDS SUMMARY | 2022-01-28 01:20 | XMS_ITS | Encounter Summary ---
:1945 Author Organization [facility] [place] [address] Care Team Providers Name Role Phone Candace Avery MELISSA Primary Care Provider Encounter Details Date Type Department Care Team Description 12/28/2013 Anti-[place]ag [place]phone [place] [facility] [place]ina [place]put, [place] [address] Social History Tobacco Use Types Packs/Day Years Used Date Never Smoker Smokeless Tobacco: Never Used Alcohol Use Standard Drinks/Week Comments No 0 (1 standard drink = 0.6 oz pure alcoho l) Sex Assigned at Date Recorded Not on file documented as of this encounter Progress Notes Paulina Rajput, RN - 12/28/2013 10:17 AM EDT Anticoagulation Therapy Nurse Visit [facility] Romo 1945 Dr[address] Del Rosario Indication: DVT Prophylaxis S/P Joint Replacement Duration of Treatment: 28 days ends: January 08, 2014 Therapeutic Range: 2.0-3.0 INR: 2.2 Drawn by: [facility] Patient presents with no signs of bleeding [...] Garcia APRN [facility] [place], [place] [address] (Wo rk) documented as of this encounter Procedures Procedure Name Priority Date/Time Associated Diagnosis Comme nts EXTERNAL LAB RESULTS Routine 12/28/2013 Results for this procedure are i n the results section . documented in this encounter Results (ABNORMAL) External Lab Results (12/28/2013) P athologist Signature POC INR 2.2 0.9 - 1.1 (External Lab) Specimen (Source) Anatomical Location Collection Method / Collectio n Time Received Time / Laterality Volume 12/28/2013 Historical Provider CHEMISTRY ORDERABLES documented in this encounter Visit Diagnoses Not on filedocumented in this encounter Care Teams Fur Stylist Relationship Specialty Start Date End Date Candace Avery APRN PCP - General 04/03/11 01/17/15 CAROLYN [address] [place] [address] documented as of this encounter
--- OUTSIDE RECORDS SUMMARY | 2022-01-28 01:20 | XMS_ITS | Encounter Summary ---
:1945 Author Organization [facility] [address] Care Team Providers Name Role Phone Candace Avery MELISSA Primary Care Provider Reason for Visit Reason Onset Date Comments Post Procedure Call 12/25/2013 Encounter Details Date Type Department Care Team Description 12/25/2013 Telephone [place] [facility] [place]andra Del Rosario, Post Procedure Call [facility] [place] [phone] [facility] [phone] DR ORTHOPAEDIC SURG [place], [place] [address] (Wo rk) Social History Tobacco Use Types Packs/Day Years Used Date Never Smoker Smokeless Tobacco: Never Used Alcohol Use Standard Drinks/Week Comments No 0 (1 standard drink = 0.6 oz pure alcoho l) Sex Assigned at Date Recorded Not on file documented as of this encounter Miscellaneous Notes Telephone Encounter - Paulina Rajput RN - 12/25/2013 3:35 PM EDT Phone call to [facility] eric Pickens - they report that the oxycodone is relieving pain well but is causing nausea and dizziness. Mr Shadi Romo attempted to discontinue the oxycodone and only use Tylenol but pain became severe after 36 hours off the narcotic. Discuss use of vicodin - states he has used it in the past and did not have difficulty with this medication. Discuss with Ha Still PAC and prescription phoned in to [facility]. 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 It is makinghim dizzy and nauseous. Please call them back to discuss other options if any at [phone]. CASE DATE: 12/11/13 SURGEON: Carin Procedure(s): RIGHT @TOTAL KNEE ARTHROPLASTY MODIFIER PFC STABILIZED FIXED MODULAR DEPUY documented in this encounter Plan of Treatment Upcoming Encounters Date Type Specialty Care Team Description 03/12/2022 Appointment Cardiology Diane Garcia, POLE FRAMER [facility] [place] [address] [place] [address] (Wo rk) documented as of this encounter Visit Diagnoses Diagnosis Knee joint replacement by other means - Primary documented in this encounter Care Teams Reliability Technicians Relationship Specialty Start Date End Date Candace Avery, POLE FRAMER PCP - General 04/03/11 01/17/15 CAROLYN [address] [address] documented as of this encounter
--- OUTSIDE RECORDS SUMMARY | 2022-01-28 01:20 | XMS_ITS | Encounter Summary ---
:1945 Author Organization [facility] [place] [address] Care Team Providers Name Role Phone Bennie Candace Blanc APRN Primary Care Provider Encounter Details Date Type Department Care Team Description [facility]2013 [facility] 12/14/2013 Encounter Gillespieanna marie Chirinos MD [facility] [address] Blunt ORTHOPAEDIC [place], [place] SURGERY [address] [place], [place] [phone] [id number] Social History Tobacco Use Types Packs/Day Years [...] in this encounter Discharge Instructions Discharge InstructionsSantoraElana MELISSA Marie - 12/14/2013 12:38 PM EDT Activity: You [...] The INR should be reported to the [facility] Ortho clinic at [phone], and you will be informed of any [...] sennakot, to factilitate a bowel movement. An npja-lca-aaoqnwv medication, miralax can also be used if [...] 1. You will have followup appointments at [facility] as indicated in Future Appointments and Orders. [...] as of this encounter Progress Notes Apoorva Easley RN - 12/14/2013 2:22 PM EDT Patient [...] discharge to home later today. Referral for [facility] for services. Obey Beltre PTA - 12/14/2013 [...] by Juan Jose Del Rosario MD at [facility] MA[facility] Social History: Patient lives with [...] treatment: 30 minutes OBEY BELTRE PTA Pager: [phone] Pb Schroeder PA - 12/14/2013 7:19 AM [...] extremity: Weight bearing as tolerated Wound closure: Billings (remove 10-14 days) Dressing changes: Mepilex Silver [...] by Juan Jose Del Rosario MD at [facility] MA[facility] OR Social History: Patient lives with [...] Total timed treatment: 40 minutes OBEY BELTRE, SUPERVISOR WEAVING Pager: [phone] Juan Jose Del Rosario MD - 12/13/2013 [...] extremity: Weight bearing as tolerated Wound closure: Billings (remove 10-14 days) Dressing changes: Mepilex Silver [...] was instructed to contact Regional Anesthesia Team ([id number]) for any unresolved sensory or motor deficits. ?? Thank you for the opportunity to have participated in the care of this patient. TRINY APTEL MD Regional Team pager [phone] Magaly Slaughter RN - 12/12/2013 1:18 PM EDT This is a 68 yo gentleman who underwent R TKA with Dr Del Rosario on 12/11/13. Pt has Medicare and [place] medicaid insurance. Pt is currently reclined in [...] preference for vendors. Pt requests referral to [facility] as pt familiar with services. We discussed benefits of rehab stay however pt does not feel this needed and hoping to be able to gohome with support of VNA services. Will complete referral for [facility], secure FWW and follow. Anticipate d/c [...] Value Range Surgical Pathology Final Report Value: [facility] Provider: JUAN JOSE DEL ROSARIO Pt. Name: LISA ROMO [facility] #: [id number] Pt. Col Date: 12/11/2013 /Sex: 1945,(68 years),Male [...] today. Recommendations: Will Remove drain, Meza and RETURNED GOODS INSPECTOR today Weight bearing status of operative extremity: [...] reports adequate pain control and is using RETURNED GOODS INSPECTOR button appropriately. at bedside. Will continue to [...] - Report called to MARY Patterson on 3 . documented in this encounter H&P Notes [...] Lisa Romo Patient Age: 68 y.o. Language: Khmer Race: White Ethnicity: Not nor Admit date: 12/11/2013 Discharge date and time: 12/14/2013 Attending Physician: Juan Jose Del Rosario MD Discharge Physician: Juan Jose Del Rosario MD Follow-up Recommendations for Providers: See patient discharge instructions for additional details Inpatient Provider Contact Information: Dr. Del Rosario Joints: [phone] After hours and weekends, call [facility] Packaging Sales Consultant, , and have Orthopedic resident paged. Discharge [...] Primary * Pb Schroeder PA - Physician Pier Runner History of Presentation: The patient is 68 [...] Rate: [59-72] Blood Pressure BP: 136/69 mmHg @eeejsmv66@ Respiratory Rate Resp: 19 Resp: [16-20] SpO2 SpO2: 97 % @tnrxdhud47@ Art BP BP (Arterial Line): -- Functional [...] The INR should be reported to the [facility] Ortho clinic at [phone], and you will be informed of any [...] sennakot, to factilitate a bowel movement. An pqhh-vyf-uaxytvg medication, miralax can also be used if [...] 1. You will have followup appointments at [facility] as indicated in Future Appointments and Orders. [...] AM Juan Jose Del Rosario MD Orthopaedics [phone] None Joint Appt Health Question [facility] Orthopaedics [phone] None Future Orders Please Complete By Expires Referral to Home Health [[id number] CPT(R)] Process Instructions: Scheduling Instructions: Comments: DISCHARGE [...] nurse practitioner, clinical nurse specialist or physician's executive assistant to president who is working directly with them, had [...] for home health services. HOME HEALTH AGENCY: [facility]. PHONE: [phone] FAX: [phone] Home care orders for Total Knee Replacements for PT: Fpc(SN) eval if indicated on admission visit 1. Draw PT/INR as follows: ( Point of care testing is acceptable) Week of discharge: PER MD/MAINSPRING STRIP GAUGER/PA ORDERS. Draw INR on WednesdayDecember 15 and call to ortho anticoagulation clinic for dosing. Thereafter, PT/INR: every Wednesday and PT/INR results to be called and faxed as follows: Wed-Wed Ortho anticoagulation (Coumadin) clinic @ [facility]: ; Sat/Sun: if the PT/INR is drawn on the weekend, call the results to the Orthopedic Resident on callat [phone] for Coumadin dosing 2.Do not lift the edge of the mepilex dressing to observe the incision; this dressing needs to stay in place until 7 days (December 18) after surgery. 3. Suture or Staple removal in 10-14 days (December 25) - PER MD/INDUSTRY ANALYST/PA ORDERS 4. Continue PT rehab for balance, [...] to be obtained from this patient'sPCP: CANDACE AVERY APRN [place] [address] [place] [place] [place] [address] All VNA agencies which cover the area of patient's residence have been reviewed, either verbally or in writing, and patient/family have chosen the indicated home health care agency for home services. Questions: Responses: Agency name and contact information [facility] Patient location post discharge home What services are requested Registered Nurse Physical Therapy Start date Responsible MD post discharge contact info PCO Primary Care Provider: CANDACE AVERY APRN [phone] Plan of Care - Jonathan Graves RN [...] will monitor patients skin. Initial Assessments - Sheree Ricks, PT - 12/12/2013 1:08 PM EDT Physical [...] by Juan Jose Del Rosario MD at [facility] OR Social History: Patient lives with [...] 35 minutes Total timed treatment: 0 minutes adalbertoal SHEREE RICKS, PT Pager: [phone] Plan of Care - Jonathan Graves RN [...] Rosario MD - 12/11/2013 12:44 PM EDT [facility] Operative Note Patient Name: Lisa Romo : [id number] MR#: [id number] Case Date: 12/11/2013 Surgeon: Surgeon(s) and Role: * Juan Jose Del Rosario MD - Primary * Pb Schroeder PA - Physician Pier Runner Preoperative diagnosis: RIGHT TKA Postoperative diagnosis: RIGHT [...] Implant Name Type Inv. Item Serial No. Commercial Driver'S License Driver Lot No. LRB No. Used Action COMPO,SGM,FEM,PS,CMNT,LUG,R,4 ([id number]) (AUTOREQ) - [id number] IMPLANTS COMPO,SGM,FEM,PS,CMNT,LUG,R,4([id number]) (AUTOREQ) [id number] Right 1 Implanted TRAY,TIB,SGM,MOD,CMNT,SZ4 ([id number]) (AUTOREQ) - [id number] IMPLANTS TRAY,TIB,SGM,MOD,CMNT,SZ4 ([id number]) (AUTOREQ) [id number] Right 1 Implanted JEFFERSON,PFC,SGM,OVL,3PG,STD,38MM ([id number]) (AUTOREQ) - [id number] IMPLANTS JEFFERSON,PFC,SGM,OVL,3PG,STD,38MM ([id number]) (AUTOREQ) [id number] Right 1 Implanted CEMENT,BNE,CMW 1,GNTA,40GM ([id number]) - [id number] IMPLANTS CEMENT,BNE,CMW 1,GNTA,40GM ([id number]) [id number] Right 1 Implanted INSER,SGM,STAB,CRSLNK,4X10MM ([id number]) (AUTOREQ) - [id number] IMPLANTS MO,BRIT OAKLEYB,NAIDALNK,4X10MM ([id number]) (AUTOREQ) [employer] Tech - [id number] Right 1 Implanted COMPLICATIONS: None. INDICATIONS:The patient [...] mallet. Excess cement was removed with a Arona. We then placed the cement onto the anterior and distal aspects of the femur. The cement was placed on the posterior aspect of the prosthetic condyles. The femoral component was then placed and impacted into position. Excess cement was removed with a Arona. The polyethylene was then placed and the knee brought out to full extension where it was held forthe entire polymerization time. Cement was then pressurized into the patellar bone and the patellar component placed. The patella was clamped. Excess cement was removed with a Arona. After all cement byrd d hardened, the [...] the anesthesiology staff and transferred to the [facility]. Sequential compression devices were placed. The [...] extremity: Weight bearing as tolerated Wound closure: Billings (remove 10-14 days) Dressing changes: Mepilex Silver [...] Team Description 03/12/2022 Appointment Cardiology Diane Garcia, COIN BOX INSPECTOR [facility] CARDI[facility] [place], [place] [address] (Wo rk) documented as of [...] CARE TEST ORDERABLE S Performing Organization Address City/[facility] [address]/ZIP Code Phon e Number [address] CERNER MILLENNIUM POCT Glucose [...] CARE TEST ORDERABLE S Performing Organization Address City/[facility] [address]/ZIP Code Phon e Number [address] CERNER MILLENNIUM POCT Glucose [...] Organization Address City/State/ZIP Code Phon e Number [address] CERNER MILLENNIUM Nucleated Red [...] Organization Address City/State/ZIP Code Phon e Number [address] CERNER MILLENNIUM (ABNORMAL) Differential, [...] Organization Address City/State/ZIP Code Phon e Number [place] [phone] CERNER MILLENNIUM (ABNORMAL) Hemogram [...] RDWCV 13.9 10.9 - CERNER 14.4 % MILLENNIUM MPV 11.3 9.0 - 12.0 CERNER [facility] Specimen Anatomical Collection Method Collection Time Receive d Time (Source) Location / / Volume Laterality Blood specimen 12/14/2013 4:00 AM 014 4:35 (specimen) EDT AM EDT Resulting Agency Comment Spec In Lab Juan Jose Del Rosario MD HEMATOLOGY ORDERABLES Performing Organization Address City/[facility] [address]/[facility] Code Phon e Number [address] CERNER MILLENNIUM (ABNORMAL) Prothrombin Time (12/14/2013 4:00 AM EDT) athologist Signature PT 17.2 (H) 12.0 - 15.0 CERNER sec MILLENNIUM Comment: [facility] Transfusion Committee Guidelines: I NR less than 2.0, PTT less than OR equal to 43.5 seconds, or Fibrinogen gre ater than or equal to 100 mg/dl indicate adequate procoagulant activity for hemostasis in patients without underlying bleeding disorders. INR 1.4 (H) 0.9 - 1.1 [facility] Specimen Anatomical Collection Method Collection Time Receive d Time (Source) Location / / Volume Laterality Blood specimen 12/14/2013 4:00 AM 014 4:35 (specimen) EDT AM EDT Resulting Agency Comment Spec In Lab Juan Jose Del Rosario MD HEMATOLOGY ORDERABLES Performing Organization Address City/[facility] [address]/ZIP [facility] Phon e Number [address] [facility] MILLENNIUM (ABNORMAL) Basic Metabolic Panel (non-fasting) (12/14/2013 4:00 AM EDT) athologist Signature Glucose Lvl 151 60 - 199 CERNER mg/dL MILLENNIUM Comment: Diabetes: >=200 mg/dL plus symp toms BUN 13 10 - 20 mg/dL CERNER MILLENNIU M Creatinine 1.04 0.80 - 1.50 mg/dL [facility] MILL ENNIUM Comment: Please note that the pediatric reference intervals supplied above were not validated at [facility]. Results from pediatri c patients should be [...] Organization Address City/State/[place] [address] CERNER MILLENNIUM POCT Glucose (12/13/2013 11:59 PM EDT) P athologist Signature POC Glucose 133 60 - 199 CERNER mg/dL MILLENNIUM Comment: Supplemental ranges: <110 mg/dL before meals <200 mg/dL all other times of the day Specimen Anatomical Collection Method Collection Time Receive d Time (Source) Location / / Volume Laterality Blood specimen 12/13/2013 11:59 06201 4 (specimen) PM EDT 11:59 PM EDT Juan Jose Del Rosario MD POINT OF CARE TEST ORDERABLE S Performing Organization Address City/[facility] [address]/ZIP Code Phon e Number [address] CERNER MILLENNIUM POCT Glucose [...] Organization Address City/State/ZIP Code Phon e Number [address] CERNER MILLENNIUM POCT Glucose [...] Organization Address City/State/ZIP Code Phon e Number [address] CERNER MILLENNIUM POCT Glucose (12/13/2013 11:54 AM EDT) P athologist Signature POC Glucose 135 60 - 199 CERNER mg/dL MILLENNIUM Comment: Supplemental ranges: <110 mg/dL before meals <200 mg/dL all other times of the day Specimen Anatomical Collection Method Collection Time Receive d Time (Source) Location / / Volume Laterality Blood specimen 12/13/2013 11:54 06/201 4 (specimen) AM EDT 11:54 AM EDT Juan Jose Del Rosario MD POINT OF CARE TEST ORDERABLE S Performing Organization Address City/[facility] [address]/ZIP Code Phon e Number [address] CERNER MILLENNIUM POCT Glucose [...] (specimen) EDT AM EDT Juan Jose Del Rosraio MD POINT OF CARE TEST ORDERABLE S Performing Organization Address City/[facility] [address]/[place] [address] CERNER MILLENNIUM POCT Glucose [...] CARE TEST ORDERABLE S Performing Organization Address City/[facility] [address]/[place] [address] CERNER MILLENNIUM (ABNORMAL) Differential, Automated (12/13/2013 3:25 AM EDT) [facility] gist Method Time Signature Neutrophils % [...] Organization Address City/State/[place] [address] CERNER MILLENNIUM (ABNORMAL) Hemogram [...] Rosario MD HEMATOLOGY ORDERABLES Performing Organization Address City/[facility] [address]/[place] [address] [facility] (ABNORMAL) Prothrombin Time (12/13/2013 3:25 AM EDT) P athologist Signature PT 16.1 (H) 12.0 - 15.[address] [facility] Comment: [facility] Transfusion Committee Guidelines: I NR less than 2.0, PTT less than OR equal to 43.5 seconds, or Fibrinogen gre ater than or equal to 100 mg/dl indicate adequate procoagulant activity for hemostasis in patients without underlying bleeding disorders. INR 1.2 (H) 0.9 - 1.1 [facility] Specimen Anatomical Collection Method Collection Time Receive d Time (Source) Location / / Volume Laterality Blood specimen 12/13/2013 3:25 AM 014 4:01 (specimen) EDT AM EDT Resulting Agency Comment Spec In Lab Juan Jose Del Rosario MD HEMATOLOGY ORDERABLES Performing Organization Address City/[facility] [address]/[place] [address] [facility] Basic Metabolic Panel (non-fasting) (12/13/2013 3:25 AM EDT) athologist Signature Glucose Lvl 134 60 - 199 CERNER mg/dL MILLENNIUM Comment: Diabetes: >=200 mg/dL plus symp toms BUN 13 10 - 20 mg/dL CERNER MILLENNIU M Creatinine 1.01 0.80 - 1.50 mg/dL CERNER MILL ENNIUM Comment: Please note that the pediatric reference intervals supplied above were not validated at [facility]. Results from pediatri c patients should be [...] Organization Address City/State/ZIP Code Phon e Number [address] CERNER MILLENNIUM POCT Glucose [...] Organization Address City/State/ZIP Code Phon e Number [address] CERNER MILLENNIUM POCT Glucose [...] CARE TEST ORDERABLE S Performing Organization Address City/[facility] [address]/ZIP Code Phon e Number [address] CERNER MILLENNIUM (ABNORMAL) POCT [...] Organization Address City/State/ZIP Code Phon e Number [address] CERNER MILLENNIUM (ABNORMAL) POCT [...] Organization Address City/State/ZIP Code Phon e Number [address] CERNER MILLENNIUM POCT Glucose (12/12/2013 11:49 AM EDT) athologist Signature POC Glucose 167 60 - 199 CERNER mg/dL MILLENNIUM Comment: Supplemental ranges: <110 mg/dL before meals <200 mg/dL all other times of the day Specimen Anatomical Collection Method Collection Time Receive d Time (Source) Location / / Volume Laterality Blood specimen 12/12/2013 11:49 4 (specimen) AM EDT 11:49 AM EDT Authorizing Provider Result Marzena Del Rosario MD POINT OF CARE TEST ORDERABLE S Performing Organization Address City/State/ZIP Code Phon e Number [address] CERNER MILLENNIUM POCT Glucose [...] Organization Address City/State/[place] [address] CERNER MILLENNIUM (ABNORMAL) Differential, Automated (12/12/2013 4:20 AM EDT) [facility] Method Time Signature Neutrophils % 72.9 [...] Organization Address City/State/[place] [address] CERNER MILLENNIUM (ABNORMAL) Hemogram [...] Organization Address City/State/ZIP Code Phon e Number [address] CERNER MILLENNIUM Prothrombin Time (12/12/2013 4:20 AM EDT) P athologist Signature PT 14.4 12.0 - 15.0 CERNER sec MILLENNIUM Comment: [facility] Transfusion Committee Guidelines: I NR less than [...] Performing Organization Address City/State/ZIP Code [place] [address] [facility] (ABNORMAL) Hemoglobin A1c (12/12/2013 4:20 AM EDT) [facility] Time Signature Hemoglobin A1C 7.0 (H) <=5.6 % [facility] Comment: As of 2013 the methodology for [...] Mellitus, Diabetes Care 2013; 36: Suppl. 1, P37-60 Est Avg Gluc 154 mg/dL [facility] Comment: eAG equivalents for HbA1c percentages: HbA1c(%) [...] into estimated average glucose values. ??Diabetes Care 2008:31(8):3020-7583. Specimen Anatomical Collection Method Collection Time Receive d Time (Source) Location / / Volume Laterality Blood specimen 12/12/2013 4:20 AM 014 4:43 (specimen) EDT AM EDT Resulting Agency Comment Spec In Lab Juan Jose Del Rosario MD CHEMISTRY ORDERABLES Performing Organization Address City/State/[place] [address] CERNER MILLENNIUM Basic Metabolic Panel (non-fasting) (12/12/2013 4:20 AM EDT) athologist Signature Glucose Lvl 163 60 - 199 CERNER mg/dL MILLENNIUM Comment: Diabetes: >=200 mg/dL plus symp toms BUN 16 10 - 20 mg/dL CERNER MILLENNIU M Creatinine 0.97 0.80 - 1.50 mg/dL CERNER MILL ENNIUM Comment: Please note that the pediatric reference intervals supplied above were not validated at [facility]. Results from pediatri c patients should be [...] Rosario MD CHEMISTRY ORDERABLES Performing Organization Address City/[facility] [address]/ZIP Code Phon e Number [address] CERNER MILLENNIUM POCT Glucose [...] CARE TEST ORDERABLE S Performing Organization Address City/[facility] [address]/ZIP Code Phon e Number [address] CERNER MILLENNIUM POCT Glucose [...] Organization Address City/State/[place] [address] CERNER MILLENNIUM (ABNORMAL) POCT Glucose (12/11/2013 8:02 PM EDT) P athologist Signature POC Glucose 238 (H) 60 - 199 CERNER mg/dL [facility] Comment: Supplemental ranges: <110 mg/dL before meals <200 mg/dL all other times of the day Specimen Anatomical Collection Method Collection Time Receive d Time (Source) Location / / Volume Laterality Blood specimen 12/11/2013 8:02 PM 014 8:02 (specimen) EDT PM EDT Juan Jose Del Rosario MD POINT OF CARE TEST ORDERABLE S Performing Organization Address City/[facility] [address]/ZIP Code Phon e Number [address] CERNER MILLENNIUM POCT Glucose (12/11/2013 4:43 PM EDT) P athologist Signature POC Glucose 135 60 - 199 CERNER mg/dL [facility] Comment: Supplemental ranges: <110 mg/dL before meals <200 mg/dL all other times of the day Specimen Anatomical Collection Method Collection Time Receive d Time (Source) Location / / Volume Laterality Blood specimen 12/11/2013 4:43 PM 014 4:43 (specimen) EDT PM EDT Juan Jose Del Rosario MD POINT OF CARE TEST ORDERABLE S Performing Organization Address City/State/[place] [address] CERNER MILLENNIUM Surgical Pathology Report (12/11/2013 1:03 PM EDT) [facility] gist Method Time Signature Surgical CERNER Pathology ? [facility] Report ? Provider: ?? JUAN JOSE DEL ROSARIO ?? Pt. Name: ?? NEOLISA Lozano Ilan ? Acc #: ?Pt. MRN: ?[id number] ? Col Date: ?? 12/11/2013 ?/Sex: ?1945,(68 years),Male ? Rec Date: ?? 12/11/2013 ?LOC: ?[id number] ? SURGICAL PATHOLOGY ? ---Pathologic Diagnosis--- ? A - Articular bone an d soft tissue consistent with osteoarthritis, right ? knee. ?Gross surgical pathology examination. ? CR-0 ? 12/11/13 ? PPS ? 12/11/13 Verified by: ? Yary Burch DO ? Pathologist ? (Electronic Si gnature) ? [...] MD PATHOLOGY/CYTOLOGY ORDERABLE S Performing Organization Address City/[facility] [address]/ZIP Code Phon e Number [address] CERNER MILLENNIUM POCT Glucose [...] CARE TEST ORDERABLE S Performing Organization Address City/[facility] [address]/ZIP Code Phon e Number [address] CERNER MILLENNIUM Specimen to [...] MD PATHOLOGY/CYTOLOGY ORDERABLE S Performing Organization Address City/[facility] [address]/ZIP Code Phon e Number [address] CERNER MILLENNIUM POCT Glucose [...] Organization Address City/State/ZIP Code Phon e Number [place] [phone] [facility] documented in this encounter Visit Diagnoses Diagnosis 12/11/2013 S/P Right total knee arthroplas ty - Primary Knee joint replacement by other means Osteoarthritis of knee Osteoarthrosis, unspecified whether gene ralized or localized, lower leg documented in this encounter Administered Medications Inactive Administered Medications - up to 3 most recent administrations Medication Order MAR Action Action Date Dose Rate Site acetaminophen (TYLENOL) tablet Given 12/11/2013 9:00 AM EDT 1,00 0 mg 1,000 mg 1,000 mg, Oral, ONCE, 1 dose, On Wed12/10/13 at 1445, Maximum dose of acetaminophen is 4000 mg from all sources in 24 hours., Routine acetaminophen (TYLENOL) tablet 1,000 mg Given 12/14/2013 1:32 PM EDT 1,000 mg 1,000 mg, Oral, EVERY 8 HOURS SCHEDULED, First dose on Wed12/11/13 at 1630, Until Discontinued, Maximum dose of acetaminophen is 4000 mg from all sources in 24 hours., Routine Given 12/14/2013 5:49 AM EDT 1,000 mg Given 12/13/2013 10:12 PM EDT 1,000 mg albuterol (PROVENTIL HFA;VENTOLIN HFA) 90 Given 12/14/2013 4:55 AM EDT 2 puffs mcg/actuation inhaler 2 puff 2 puff, Inhalation, EVERY 4 HOURS PRN, Starting on Wed12/11/13 at 1539, Until Lacey 12/14/13 at 1626, Wheezing, Routine Given 12/12/2013 10:50 AM EDT 2 puffs amLODIPine (NORVASC) tablet 2.5 mg Given 12/14/2013 8:39 AM EDT 2.5 mg 2.5 mg, Oral, DAILY, First dose on Wed12/11/13 at 1800, Until Discontinued, Routine Given 12/13/2013 8:30 AM EDT 2.5 mg Given 12/12/2013 8:24 AM EDT 2.5 mg atorvastatin (LIPITOR) tablet 80 mg Given 12/14/2013 8:39 AM EDT 80 mg 80 mg, Oral, DAILY, First dose on Wed12/11/13 at 1700, Until Discontinued, Routine Given 12/13/2013 8:31 AM EDT 80 mg Given 12/12/2013 8:24 AM EDT 80 mg buPROPion (WELLBUTRIN SR) SR tablet 150 mg Given 12/14/2013 8:39 AM EDT 150 mg 150 mg, Oral, 2 TIMES DAILY, First dose on Wed12/11/13 at 2100, Until Discontinued, Routine Given 12/13/2013 10:12 PM EDT 150 mg Given 12/13/2013 8:31 AM EDT 150 mg ceFAZolin (ANCEF) 1g in dextrose New Bag 12/12/2013 10:50 AM E DT 1,000 mg 100 mL/hr 5% 50mL 1,000 mg (1 g), Intravenous, EVERY 8 HOURS, 3 doses, First dose on Wed12/11/13 at 1330, Last dose on Wed12/12/13 at 0530, Administer over 30 Minutes, For 3 doses postoperatively. Adjust to 8 hours from intraoperative dose., Recovery (Recovery-Hospital Unit), Indication for (Active or Suspected): Prophylaxis New Bag 12/12/2013 2:58 AM EDT 1,000 mg 100 mL/hr New Bag 12/11/2013 6:25 PM EDT 1,000 mg 100 mL/hr enoxaparin (LOVENOX) injection 40 mg Given 12/13/2013 1:37 PM EDT 40 mg 40 mg, Subcutaneous, ONCE, 1 dose, On Wed12/13/13 at 1300, Routine enoxaparin (LOVENOX) injection 40 mg Given 12/14/2013 9:22 AM EDT 40 mg 40 mg, Subcutaneous, ONCE, 1 dose, On Wed12/14/13 at 0900, Routine esomeprazole (NEXIUM) capsule 40 mg Given 12/14/2013 8:39 AM EDT 40 mg 40 mg, Oral, DAILY, First dose on Wed12/11/13 at 1800, Until Discontinued, Routine Given 12/13/2013 8:31 AM EDT 40 mg Given 12/12/2013 8:26 AM EDT 40 mg ferrous sulfate EC tablet 325 mg Given 12/14/2013 8:39 AM EDT 325 mg 325 mg, Oral, 2 TIMES DAILY, First dose on Wed12/11/13 at 2100, Until Discontinued, Take with food or a glass of water, Routine Given 12/13/2013 10:11 PM EDT 325 mg Given 12/13/2013 8:32 AM EDT 325 mg furosemide (LASIX) tablet 80 mg Given 12/14/2013 8:40 AM EDT 80 mg 80 mg, Oral, 2 TIMES DAILY, First dose on Wed12/12/13 at 0900, Until Discontinued, Routine Given 12/13/2013 10:19 PM EDT 80 mg Given 12/13/2013 8:35 AM EDT 80 mg gabapentin (NEURONTIN) capsule 600 mg Given 12/11/2013 9:00 AM EDT 600 mg 600 mg, Oral, ONCE, 1 dose, On Wed12/10/13 at 1445, Routine HYDROmorphone (DILAUDID) 1 New Syringe/Cartridge 12/11/2013 1:21 PM E DT 30 mg mg/mL RETURNED [employer] INS[employer] 30 mL Intravenous, RETURNED [employer] INSPECTOR ONLY, Starting on Wed12/11/13 at 1330, Until Wed12/12/13 at 0724, Recovery (Recovery-Hospital Unit) insulin aspart (novoLOG) VIAL injection 1-4 Given 11/2013 7:30 AM EDT 1 Units Units 1-4 Units, Subcutaneous, EVERY 4 HOURS SCHEDULED, First dose on Wed12/11/13 at 2015, Until Discontinued, CORRECTION BOLUS Sensitive to insulin lean patient or total daily dose of all insulin needed to achieve glycemic control less than 30 units BG 140 - 160 Give 1 unit BG 161 - 200 Give 2 units BG 201 - 240 Give 3 units BG greater than 240, give 4 units and recheck BG in 2 hours. If BG remains greater than 240, repeat 4 units (no more than three times) & call for new basal insulin orders. If less than 240 after two hours, give no insulin and resume prior schedule. Given 12/14/2013 4:50 AM EDT 1 Units Given 12/13/2013 5:32 PM EDT 1 Units lactated ringers infusion 1,000 New Bag 12/11/2013 11:49 PM ED T 1,000 mLs 100 mL/hr mL 1,000 mL, at 100 mL/hr, Intravenous, CONTINUOUS, Starting on Wed12/11/13 at 1330, Until Lacey 12/14/13 at 1626, Recovery (Recovery-Hospital Unit) New Bag 12/11/2013 1:25 PM EDT 1,000 mLs 100 mL/hr lactated ringers infusion 500 mL New Bag 12/13/2013 8:02 PM EDT 500 mLs 1000 mL/hr 500 mL, at 1,000 mL/hr, Intravenous, CONTINUOUS, Starting on Wed12/13/13 at 2000, Until Lacey 12/14/13 at 1626 losartan (COZAAR) tablet 100 mg Given 12/14/2013 8:40 AM EDT 100 mg 100 mg, Oral, DAILY, First dose on Wed12/11/13 at 1800, Until Discontinued, Routine Given 12/13/2013 8:33 AM EDT 100 mg Given 12/12/2013 8:25 AM EDT 100 mg metFORMIN (GLUCOPHAGE) tablet 1,000 mg Given 12/14/2013 7:30 AM EDT 1,000 mg 1,000 mg, Oral, 2 TIMES DAILY WITH MEALS, First dose on Wed12/11/13 at 1700, Until Discontinued, Routine Given 12/13/2013 5:33 PM EDT 1,000 mg Given 12/13/2013 8:33 AM EDT 1,000 mg metoprolol tartrate (LOPRESSOR) tablet 5 0 mg Given 12/14/2013 8:40 AM EDT 50 mg 50 mg, Oral, EVERY 12 HOURS SCHEDULED (2 times per day), First dose on Wed12/11/13 at 2100, Until Discontinued, Routine Given 12/13/2013 10:20 PM EDT 50 mg Given 12/13/2013 8:32 AM EDT 50 mg midazolam (PF) (VERSED) 1 mg/mL injection 0.5-3 Given 12/11/2013 9:10 AM EDT 1 mg mg 0.5-3 mg, Intravenous, EVERY 5 MIN PRN, 1 dose, Starting on Wed12/10/13 at 1427, Until Wed12/11/13 at 0910, block sedation, Please discontinue when pt leaves the block area., Routine Given 12/11/2013 9:07 AM EDT 1 mg multivitamin Hjua-Kc-VE-Min (THERAPEUTIC-M) Given 11/2013 8:40 AM EDT 1 tablet 27-0.4 mg tablet 1 tablet 1 tablet, Oral, DAILY, First dose on Wed12/11/13 at 1800, Until Discontinued Given 12/13/2013 8:34 AM EDT 1 tablet Given 12/12/2013 8:25 AM EDT 1 tablet oxyCODONE (ROXICODONE) immediate release Given 12/13/2013 5:33 P M EDT 10 mg tablet 10 mg 10 mg, Oral, EVERY 4 HOURS PRN, Starting on Wed12/11/13 at 1302, Until Lacey 12/14/13 at 1626, Pain, moderate pain, For Moderate pain. Do not exceed 15 mg in 4 hours. If pain not relieved, call provider., Routine Given 12/13/2013 1:16 PM EDT 10 mg Given 12/13/2013 8:36 AM EDT 10 mg oxyCODONE (ROXICODONE) immediate release Given 12/12/2013 9:22 P M EDT 15 mg tablet 15 mg 15 mg, Oral, EVERY 4 HOURS PRN, Starting on Wed12/11/13 at 1302, Until Lacey 12/14/13 at 1626, Pain, severe pain, For severe pain. Do not exceed 15 mg in 4 hours. If pain not relieved, call provider., Routine Given 12/12/2013 2:46 PM EDT 15 mg oxyCODONE (ROXICODONE) immediate release tablet Given 12/14/2013 1:32 PM EDT 5 mg 5 mg 5 mg, Oral, EVERY 4 HOURS PRN, Starting on Wed12/11/13 at 1302, Until Lacey 12/14/13 at 1626, Pain, mild pain, For Mild pain. Do not exceed 15 mg in 4 hours. If pain not relieved, call provider, Routine Given 12/14/2013 9:22 AM EDT 5 mg Given 12/14/2013 2:42 AM EDT 5 mg penicillin v potassium (VEETID) tablet 5 00 mg Given 12/14/2013 8:40 AM EDT 500 mg 500 mg, Oral, 2 TIMES DAILY, First dose on Wed12/11/13 at 2100, Until Discontinued, Routine Given 12/13/2013 10:20 PM EDT 500 mg Given 12/13/2013 8:34 AM EDT 500 mg polyethylene glycol (MIRALAX) packet 17 g Given 12/14/2013 8:40 AM EDT 17 g 17 g, Oral, 2 TIMES DAILY, First dose on Wed12/11/13 at 2100, Until Discontinued, Administer if needed per patient's routine or if no bowel movement within 48 hours, Routine Given 12/13/2013 8:30 AM EDT 17 g Given 12/12/2013 8:41 PM EDT 17 g potassium chloride (K-DUR/KLOR-CON) extended Given 11/2013 8:40 AM EDT 20 mEq release tablet 20 mEq 20 mEq, Oral, 2 TIMES DAILY, First dose on Wed12/11/13 at 2100, Until Discontinued, 20 mEq tablet may be dissolved in water for administration, Routine Given 12/13/2013 10:13 PM EDT 20 mEq Given 12/13/2013 8:35 AM EDT 20 mEq potassium chloride (K-DUR/KLOR-CON) extended Given 11/2013 12:23 PM EDT 40 mEq release tablet 40 mEq 40 mEq, Oral, ONCE, 1 dose, On Lacey 12/14/13 at 1200, 20 mEq tablet may be dissolved in water for administration, Routine senna-docusate (PERICOLACE) 8.6-50 mg per Given 2013 8:40 AM EDT 2 tablets tablet 1-4 tablet 1-4 tablet, Oral, 2 TIMES DAILY, First dose on Wed12/11/13 at 2100, Until Discontinued, Start with 1 tablet or liquid equivalent orally twice daily and titrate up to achieve: 1. One bowel movement at least every 48 hours, AND 2. Without straining, Routine Given 12/13/2013 10:13 PM EDT 1 tablet Given 12/13/2013 8:33 AM EDT 2 tablets sodium chloride 0.9 % flush 5 mL Given 12/11/2013 1:25 PM EDT 5 mLs 5 mL, Intravenous, EVERY 12 HOURS, First dose on Wed12/11/13 at 0930, Until Discontinued, Day of Surgery (Day of Procedure), Routine sodium chloride 0.9 % flush 5 mL Given 12/14/2013 8:40 AM EDT 5 mLs 5 mL, Intravenous, 2 TIMES DAILY, First dose on Wed12/11/13 at 2100, Until Discontinued, Recovery (Recovery-Hospital Unit), Routine Given 12/13/2013 10:14 PM EDT 5 mLs Given 12/13/2013 8:35 AM EDT 5 mLs warfarin (COUMADIN) tablet 5 mg Given 12/11/2013 5:00 PM EDT 5 mg 5 mg, Oral, ONCE, 1 dose, On Wed12/11/13 at 1700, Routine warfarin (COUMADIN) tablet 5 mg Given 12/12/2013 4:51 PM EDT 5 mg 5 mg, Oral, ONCE, 1 dose, On Wed12/12/13 at 1700, Routine warfarin (COUMADIN) tablet 7.5 mg Given 12/13/2013 5:33 PM EDT 7.5 mg 7.5 mg, Oral, ONCE, 1 dose, On Wed12/13/13 at 1700, Routine documented in this encounter Active and Recently Administered Medications Times are shown in EDT. Scheduled Medication Order 12/12/2013 12/13/2013 12/14/2013 acetaminophen (TYLENOL) tablet 1,000 mg 0507 (Given - Provider: Jonathan Graves RN)1446 (Given - Provider: Isela Ogden RN)2122 (Given [...] (NORVASC) tablet 2.5 mg (CANCELED) 0824 (Gi gary - Provider: Isela Ogden RN) 0830 (Given - Provider: Jenni Burden, MARY) 0839 (Gi gary - Provider: Apoorva Easley, MARY) 2.5 mg, Oral, DAILY, First dose on Wed at 1800, Until Discontinued, Routine atorvastatin (LIPITOR) tablet 80 mg (CANCELED) 0824 (G iven - Provider: Isela Ogden RN) 0831 (Given - Provider: Jenni Burden, MARY) 0839 (Gi gary - Provider: Apoorva Easley, MARY) 80 mg, Oral, DAILY, First dose on 08/25 at 1700, Until Discontinued, Routine buPROPion (WELLBUTRIN SR) SR tablet 150 mg (CANCELED) 824 (Given - Provider: Isela Ogden, RN)2042 (Given - Provider: Jonathan Graves, MARY) 08 (Given - Provider: Jenni Burden, MARY)2211 (Given - Provider: Layne Logan RN) 0839 (Given - Provider: Apoorva Easley, MARY) 150 mg, Oral, 2 TIMES DAILY, First dose on Wed12/11/13 at 2100, Until Discontinued, Routine ceFAZolin (ANCEF) 1g in dextrose 5% 50mL (COMPLETED) 0 258 (New Bag - Provider: Jonathan Graves, MARY)1050 (New Bag - Provider: Isela Ogden RN) 1 g = 1,000 mg, Intravenous, EVERY [...] MARY) 40 mg, Subcutaneous, ONCE, 1 dose, Wed12/13/13 at 1300, Routine enoxaparin (LOVENOX) injection 40 mg (COMPLETED) 09 (Given - Provider: Apoorva Easley, MARY) 40 mg, Subcutaneous, ONCE, 1 dose, Lacey 12/14/13 at 0900, Routine esomeprazole (NEXIUM) capsule 40 mg (CANCELED) 825 (G iven - Provider: Isela Ogden RN) 08 (Given - Provider: Jenni Burden, MARY) 0839 (Gi gary - Provider: Apoorva Easley, MARY) 40 mg, Oral, DAILY, First dose on 08/25 at 1800, Until Discontinued, Routine ferrous sulfate EC tablet 325 mg (CANCELED) 0825 (Give n - Provider: Isela Ogden RN)2042 (Given - Provider: Jonathan Graves RN) 0832 (Given - Provider: Jenni Burden, MARY)221 (Given - Provider: Layne Logan, MARY) 0839 (Given - Provider: Apoorva Easley, MARY) 325 mg, Oral, 2 TIMES DAILY, First dose on Wed12/11/13 at 2100, Until Discontinued, Take with food or a glass of water, Routine furosemide (LASIX) tablet 80 mg (CANCELED) 08 (Given - Provider: Isela Ogden RN)2042 (Given - Provider: Jonathan Graves RN) 0835 (Given - Provider: Jenni Burden, MARY)221 (Given - Provider: Layne Logan, MARY) 0840 (Given - Provider: Apoorva Easlye, MARY) 80 mg, Oral, 2 TIMES DAILY, First dose o n Wed12/12/13 at 0900, Until Discontinued, Routine insulin aspart (novoLOG) VIAL injection 1-4 Units (CAN CELED) 0000 (Not Given - Provider: Jonathan Graves RN - Reason: Order parameters not met)0420 (Given - Provider: Jonathan Graves RN)0828 (Given - Provider: Isela Ogden RN)1212 (Given - Provider: Isela Ogden RN) 0015 (Given - Provider: Jonathan Graves, MARY)0400 (Not Given - Provider: Jonathan Graves RN - Reason: Patient/family refused)0838 (Given - Provider: Jenni Burden, MARY) 0000 (Not Given - Provider: Layne Logan RN - Reason: Order parameters not met)0450 (Given - Provider: Layne Logan, MARY)0730 (Given - Provider: Layne Logan RN) 1-4 Units, Subcutaneous, EVERY 4 HOURS S CHEDULED, First dose on Wed12/11/13 at 2015, Until Discontinued, CORRECTION BOLUS Sensitive to insulin lean patient or total daily dose of all insulin needed t 165 (Given - Provider: Isela Ogden RN)2043 (Given - Provider: Jonathan Graves RN) 1200 (Not Given - Provider: Jenni Burden RN - Reason: Order parameters not met)1732 (Given - Provider: Jenni Burden RN)2000 (Not Given - Provider: Layne Logan RN - Reason: Order parameters not met) 1139 (Not Given - Provider: Apoorva gant RN [...] (CANCELED) 0825 (Given - Provider: Isela Ogden RN)1651 (Given - Provider: Isela Ogden RN) 0833 (Given - Provider: Jenni Burden RN)1733 (Given - Provider: Jenni Burden, MARY) 0730 (Given - Provider: Layne Logan RN) 1,000 mg, Oral, 2 TIMES DAILY WITH MEALS , First dose on Wed12/11/13 at 1700, Until Discontinued, Routine metoprolol tartrate (LOPRESSOR) tablet 50 mg (CANCELED ) 0900 (Not Given - Provider: Isela Ogden RN - Reason: See comment - Comment: HR 60 bpm)2044 (Given - Provider: Jonathan Graves RN) 0832 (Given - Provider: Jenni Burden RN)2220 (Given - Provider: Layne Logan, MARY) 0840 (Given - Provider: Apoorva Easley RN) 50 mg, Oral, EVERY 12 HOURS SCHEDULED (2 times per day), First dose on Wed12/11/13 at 2100, Until Discontinued, Routine multivitamin Jgyr-Wx-SE-Min (THERAPEUTIC -M) 27-0.4 mg tablet 1 tablet (CANCELED) 0825 (Given - Provider: Isela Ogden, RN) 0834 (Give n - Provider: Jenni Burden, MARY) 0840 (Given - Provider: Apoorva Easley , MARY) 1 tablet, Oral, DAILY, First dose on Wed12/11/13 at 1800, Until Discontinued, Routine penicillin v potassium (VEETID) tablet 500 mg (CANCELE D) 0825 (Given - Provider: Isela Ogden, RN)2041 (Given - Provider: Jonathan Graves, MARY) 0834 (Given - Provider: Jenni Burden, MARY)222 (Given - Provider: Layne Logan, MARY) 0840 (Given - Provider: Apoorva Easley, MARY) 500 mg, Oral, 2 TIMES DAILY, First dose on Wed12/11/13 at 2100, Until Discontinued, Routine polyethylene glycol (MIRALAX) packet 17 g 0828 (Given - Provider: Isela Ogden, MARY)2040 (Given - Provider: Jonathan Graves, MARY) 0830 (Given - Provider: Jenni Burden, MARY)2212 (Not Given - Provider: Layne Logan, MARY - Reason: Patient/family refused) 0840 (Given - Provider: Apoorva Easley , MARY) 17 g, Oral, 2 TIMES DAILY, First dose on Wed12/11/13 at 2100, Until Discontinued, Administer if needed per patient's routine or if no bowel movement within 48 hours, Routine potassium chloride (K-DUR/KLOR-CON) extended release t ablet 20 mEq (CANCELED) 0825 (Given - Provider: Isela Ogden, MARY)2041 (Given - Provider: Jonathan Graves, MARY) 0835 (Given - Provider: Jenni Burden , MARY)221 (Given - Provider: Layne Logan, MARY) 0840 (Given - Provider: Apoorva Easley , MARY) 20 mEq, Oral, 2 TIMES DAILY, First [...] RN)2041 (Given - Provider: Jonathan Graves, MARY) 0833 (Given - Provider: Jenni Burden, MARY)221 (Given - Provider: Layne Logan, MARY) 0840 (Given - Provider: Apoorva Easley , MARY) 1-4 tablet, Oral, 2 TIMES DAILY, First d ose on Wed12/11/13 at 2100, Until Discontinued, Start with 1 tablet or liquid equivalent orally twice daily and titrate up to achieve: 1. One bowel movement at maria a st every 48 hours, AND 2. Without straining, Routine sodium chloride 0.9 % flush 5 mL (CANCELED) 0828 (Give n - Provider: Isela Ogden, MARY)2044 (Given - Provider: Jonathan Graves, MARY) 0835 (Given - Provider: Jenni Burden, MARY)221 (Given - Provider: Layne Logan, MARY) 0840 (Given - Provider: Apoorva Easley, MARY) 5 mL, Intravenous, 2 TIMES DAILY, First dose on Wed12/11/13 at 2100, Until Discontinued, Recovery (Recovery-Hospital Unit), Routine warfarin (COUMADIN) tablet 5 mg (COMPLETED) 165 (Give n - Provider: Isela Ogden RN) 5 mg, Oral, ONCE, 1 dose, Tu12/12/13 at 1700, Routine warfarin (COUMADIN) tablet 7.5 mg (COMPLETED) 173 (Given - Provider: Jenni Burden, MARY) 7.5 mg, Oral, ONCE, 1 dose, 12/13/13 at 1700, Routine warfarin (COUMADIN) tablet 7.5 mg 7.5 mg, Oral, ONCE, 1 dose, Lacey 6/5/14 at 1700, Routine Continuous Medication Order 12/12/2013 12/13/2013 12/14/2013 lactated ringers infusion 500 mL (CANCELED) 2001 (New Bag - Provider: Layne Logan, MARY)0 (Stopped - Provider: Layne Logan RN) 500 mL, at 1,000 mL/hr, Intravenous, CON TINUOUS, Starting 12/13/13 at 2000, Until Lacey 12/14/13 at 1626 PRN Medication Order 12/12/2013 12/13/2013 12/14/2013 albuterol (PROVENTIL HFA;VENTOLIN HFA) 9 0 mcg/actuation inhaler 2 puff (CANCELED) 1050 (Given - Provider: Isela Ogden RN) 0455 (Given - Provider: Layne Logan RN) 2 puff, Inhalation, EVERY 4 HOURS PRN, S tarting 12/11/13 at 1539, Until Lacey 12/14/13 at 1626, Wheezing, Routine bisacodyl (DULCOLAX) suppository 10 mg 10 mg, Rectal, DAILY PRN, Starting Mon at 1539, Until Lacey 12/14/13 at 1626, Constipation, Administer if needed per patient's routine or if no bowel movement within 48 hours, Routine oxyCODONE (ROXICODONE) immediate release tablet 10 mg (CANCELED) 0420 (Given - Provider: Jonathan Graves, MARY)0920 (Given - Provider: Isela Ogden RN)1446 (See Alternative - Provider: Isela Ogden RN)2122 (See Alternative - Provider: Jonathan Graves, MARY) 0836 (Given - Provider: Jenni Burden , MARY)1316 (Given - Provider: Jenni Burden, RN)1733 (Given - Provider: Jenni Burden, RN)2219 (See Alternative - Provider: Layne Logan, MARY) 0242 (See Alternative - Provider: Layne Logan, MARY)0922 (See Alternative - Provider: Apoorva Easley, MARY)1332 (See Alternative - Provider: Apoorva Easley, MARY) 10 mg, Oral, EVERY 4 HOURS PRN, Starting 12/11/13 at 1302, Until Lacey 12/14/13 at 1626, Pain, moderate pain, For Moderate pain. Do not exceed 15 mg in 4 hours. If pain not relieved, call provider., Routine oxyCODONE (ROXICODONE) immediate release tablet 15 mg (CANCELED) 0420 (See Alternative - Provider: Jonathan Graves RN)0920 (See Alternative - Provider: Isela Ogden RN)1446 (Given - Provider: Isela Ogden RN)2122 (Given - Provider: Jonathan Graves RN) 0836 (See Alternative - Provider: Raji Burden, AMRY)1316 (See Alternative - Provider: Jenni Burden, MARY)1733 (See Alternative - Provider: Jenni Burden RN)221 (See Alternative - Provider: Bertrand Logan RN) 0242 (See Alternative - Provider: Layne Logan RN)0922 (See Alternative - Provider: Apoorva Easley RN)1332 (See Alternative - Provider: Apoorva Easley RN) 15 mg, Oral, EVERY 4 HOURS PRN, Starting 12/11/13 at 1302, Until Lacey 12/14/13 at 1626, Pain, severe pain, For severe pain. Do not exceed 15 mg in 4 hours. If pain not relieved, call provider., Routine oxyCODONE (ROXICODONE) immediate release tablet 5 mg 0 420 (See Alternative - Provider: Jonathan Graves RN)0920 (See Alternative - Provider: Isela Ogden RN)1446 (See Alternative - Provider: Isela Ogden RN)2122 (See Alternative - Provider: Jonathan Graves RN) 0836 (See Alternative - Provider: Jenni Burden RN)1316 (See Alternative - Provider: Jenni Burden, MARY)1733 (See Alternative - Provider: Jenni Burden RN)2219 (Given - Provider: Layne Logan RN) 0242 (Given - Provider: Layne Logan, MARY)0922 (Given - Provider: Apoorva Easley, MARY)1332 (Given - Provider: Apoorva Easley RN) 5 mg, Oral, EVERY 4 HOURS PRN, Starting 12/11/13 at 1302, Until Lacey 12/14/13 at 1626, Pain, mild pain, For Mild pain. Do not exceed 15 mg in 4 hours. If pain not relieved, call provider, Routine documented in this encounter Care Teams [employer] Relationship Specialty Start Date End Date Candace Avery, MELISSA PCP - General 04/03/11 01/17/15 LE[address]ON [address] [place] [address] documented as of this encounter
--- OUTSIDE RECORDS SUMMARY | 2022-01-28 01:20 | XMS_ITS | Encounter Summary ---
:1945 Author Organization [facility] [place] [address] Care Team Providers Name Role Phone Candace Avery MELISSA Primary Care Provider Encounter Details Date Type Department Care Team Description 12/15/2013 Anti-Coag Telephone [place]ed[place] [facility] [place] [address] Social History Tobacco Use Types Packs/Day Years Used Date Never Smoker Smokeless Tobacco: Never Used Alcohol Use Standard Drinks/Week Comments No 0 (1 standard drink = 0.6 oz pure alcoho l) Sex Assigned at Date Recorded Not on file documented as of this encounter Progress Notes Paulina Rajput, RN - 12/15/2013 3:33 PM EDT Anticoagulation Therapy Nurse Visit [facility] Romo [address] Dr[address] Del Rosario Indication: DVT Prophylaxis S/P Joint Replacement Duration of Treatment: 28 days ends: January 08, 2014 Therapeutic Range: 2.0-3.0 INR: 1.3 Drawn by: [facility] Patient presents with no signs of bleeding [...] Garcia APRN [facility] [place], [place] [address] (Wo rk) documented as of this encounter Procedures Procedure Name Priority Date/Time Associated Diagnosis Comme nts EXTERNAL LAB RESULTS Routine 12/15/2013 Results for this procedure are i n the results section . documented in this encounter Results (ABNORMAL) External Lab Results (12/15/2013) P athologist Signature POC INR 1.3 0.9 - 1.1 (External Lab) Specimen (Source) Anatomical Location Collection Method / Collectio n Time Received Time / Laterality Volume 12/15/2013 Historical Provider CHEMISTRY ORDERABLES documented in this encounter Visit Diagnoses Not on filedocumented in this encounter Care Teams Bar Helper Relationship Specialty Start Date End Date Candace Avery APRN PCP - General 04/03/11 01/17/15 CAROLYN [address] [place] [address] documented as of this encounter
--- OUTSIDE RECORDS SUMMARY | 2022-01-28 01:20 | XMS_ITS | Encounter Summary ---
:1945 Author Organization [facility] Address [address] [place] [address] Care Team Providers Name Role Phone Satnam Barnes MD Primary Care Provider Encounter Details Date Type Department Care Team Description 02/08/2015 Orders Only [place] [facility] [place] Chanrda [place] Rosario, Status post total [facility] MD right knee Drive [facility] [place] [phone] ORTHOPAEDIC SURGERY [place], [place] [address] Social History Tobacco Use Types [...] Team Description 03/12/2022 Appointment Cardiology Diane Garcia, [employer] MA[employer]GER [facility] [place], [place] [address] (Wo rk) documented as of this encounter Visit Diagnoses Diagnosis Status post total right knee replacement documented in this encounter Care Teams Adult Ministries Director Relationship Specialty Start Date End Date Satnam Barnes MD PCP - General 02/07/15 07/11/19 documented as of this encounter
--- OUTSIDE RECORDS SUMMARY | 2022-01-28 01:20 | XMS_ITS | Encounter Summary ---
:1945 Author Organization [facility] [place] [address] Care Team Providers Name Role Phone Candace Avery MELISSA Primary Care Provider Encounter Details Date Type Department Care Team Description 12/21/2013 [place] [facility] [place] [address] Social History Tobacco Use Types Packs/Day Years Used Date Never Smoker Smokeless Tobacco: Never Used Alcohol Use Standard Drinks/Week Comments No 0 (1 standard drink = 0.6 oz pure alcoho l) Sex Assigned at Date Recorded Not on file documented as of this encounter Progress Notes Paulina Rajput, RN - 12/21/2013 2:24 PM EDT Anticoagulation Therapy Nurse Visit Corona Romo 1945 Dr[address] Del Rosario Indication: DVT Prophylaxis S/P Joint Replacement Duration of Treatment: 28 days ends: January 08, 2014 Therapeutic Range: 2.0-3.0 INR: 2.1 Drawn by: [facility] Patient presents with no signs of bleeding [...] Garcia APRN [facility] [place], [place] [address] (Wo rk) documented as of this encounter Procedures Procedure Name Priority Date/Time Associated Diagnosis Comme nts EXTERNAL LAB RESULTS Routine 12/21/2013 Results for this procedure are i n the results section . documented in this encounter Results (ABNORMAL) External Lab Results (12/21/2013) P athologist Signature POC INR 2.1 0.9 - 1.1 (External Lab) Specimen (Source) Anatomical Location Collection Method / Collectio n Time Received Time / Laterality Volume 12/21/2013 Historical Provider CHEMISTRY ORDERABLES documented in this encounter Visit Diagnoses Not on filedocumented in this encounter Care Teams Vocational Rehabilitation Consultant Relationship Specialty Start Date End Date Candace Avery APRN PCP - General 04/03/11 01/17/15 [address]YN [address] [place] [address] documented as of this encounter
--- OUTSIDE RECORDS SUMMARY | 2022-01-28 01:20 | XMS_ITS | Encounter Summary ---
:1945 Author Organization [facility] [place] [address] Care Team Providers Name Role Phone Candace Avery APRN Primary Care Provider Reason for Visit Reason Onset Date Comments Reminder Appointment 11/27/2014 Encounter Details Date Type Department Care Team Description 11/27/2014 [place] [facility] [place], Reminder Appointment [facility] [place] [address] [facility] [phone] DR ORTHOPAEDIC SURG [place], [place] [address] (Wo rk) Social History Tobacco Use Types Packs/Day Years Used Date Never Smoker Smokeless Tobacco: Never Used Alcohol Use Standard Drinks/Week Comments No 0 (1 standard drink = 0.6 oz pure alcoho l) Sex Assigned at Date Recorded Not on file documented as of this encounter Miscellaneous Notes Telephone Encounter - Summer Braswell - 11/28/2014 11:15 AM EDT PATIENT SCHEDULED Telephone Encounter - Becky Guerrier - 11/27/2014 10:44 AM EDT Left message #1 to schedule reminder appointment. documented in this encounter Plan of Treatment Upcoming Encounters Date Type Specialty Care Team Description 03/12/2022 Appointment Cardiology Diane Garcia, PSYCHOLOGY TEACHER [facility] [place], [place] [address] (Wo rk) documented as of this encounter Visit Diagnoses Not on filedocumented in this encounter Care Teams Harness Cleaner Relationship Specialty Start Date End Date Candace Avery, PSYCHOLOGY TEACHER PCP - General 04/03/11 01/17/15 CAROLYN [address] [place] [address] documented as of this encounter
--- OUTSIDE RECORDS SUMMARY | 2022-01-28 01:21 | XMS_ITS | Encounter Summary ---
:1945 Author Organization [facility] [place] [address] Care Team Providers Name Role Phone Candace Avery Guanaco TORRES Primary Care Provider Reason for Visit Reason Onset Date Comments Follow-up 07/17/2013 Encounter Details Date Type Department Care Team Description 07/17/2013 Telephone [place] [facility] [place] Chandra Del Rosario MD Follow-up [facility] [place] [address] ORTHOPAEDIC SURGERY [phone] [place], [place] [address] (Wo rk) Social History Tobacco Use Types Packs/Day Years Used Date Never Smoker Smokeless Tobacco: Never Used Alcohol Use Standard Drinks/Week Comments No 0 (1 standard drink = 0.6 oz pure alcoho l) Sex Assigned at Date Recorded Not on file documented as of this encounter Miscellaneous Notes Telephone Encounter - Saima Lee - 07/18/2013 10:46 AM EST Scheduled Telephone Encounter - Lacie Odell - 07/17/2013 4:15 PM EST Left message for patient to call to schedule their annual follow-up appointment. Xrays needed. documented in this encounter Plan of Treatment Upcoming Encounters Date Type Specialty Care Team Description 03/12/2022 Appointment Cardiology Diane Garcia, MEDICAL PRACTICE ASSISTANT [facility] [place], [place] [address] (Wo rk) documented as of this encounter Visit Diagnoses Not on filedocumented in this encounter Care Teams Electrotyper Helper Relationship Specialty Start Date End Date Candace Avery MEDICAL PRACTICE ASSISTANT PCP - General 04/03/11 01/17/15 CAROLYN [address] [place] [address] documented as of this encounter
--- OUTSIDE RECORDS SUMMARY | 2022-01-28 01:21 | XMS_ITS | Encounter Summary ---
:1945 Author Organization [facility] [place] [address] Care Team Providers Name Role Phone Bennie Candace Blanc APRN Primary Care Provider Reason for Visit Reason Comments Aftercare Of Tjr left tka Right Knee Pain knee pain Encounter Details Date Type Department Care Team Description 08/10/2013 [place] [facility] [place] Jose Garza MD [facility] [place] [address] Osteoarthritis of right knee; [facility] Eliza Schroeder PA [address] [address] History of total knee arthroplasty, [place] [address] Social History Tobacco Use Types Packs/Day Years Used Date Never Smoker Smokeless Tobacco: Never Used Alcohol Use Standard Drinks/Week Comments No 0 (1 standard drink = 0.6 oz pure alcoho l) Sex Assigned at Date Recorded Not on file documented as of this encounter Last Filed Vital Signs Vital Sign Reading Time Taken Comments Blood Pressure 118/56 08/10/2013 2:58 PM EST Pulse 51 08/10/2013 2:58 PM EST Temperature - - Respiratory Rate - - Oxygen Saturation - - Inhaled Oxygen Concentration - - Weight 110 kg (242 lb 9.6 oz) 08/10/2013 2:58 PM EST Height 175.3 cm (5' 9) 08/10/2013 2:58 PM EST Body Mass Index 35.83 08/10/2013 2:58 PM EST documented in this encounter Progress Notes Eliza Schroeder PA - 08/10/2013 3:20 PM EST PATIENT NAME: Lisa Romo AGE: 68 y.o. MR#: [id number] DATE OF VISIT: 08/10/2013 SURGERY DATE: 09/10/2005 Procedure Performed: Left total knee arthroplasty. STAFF: The patient was seen and the plan was formulated in conjunction with Dr. Garza. CHIEF COMPLAINT: right knee pain and follow-up of a left TKA HISTORY OF PRESENT ILLNESS Mr. Demetrius saucedo 68 y.o. year old male comes into clinic today for right knee pain and follow-up of a left TKA. He reports that his right knee the worse pain that he has ever had he is interested in having a TKA. We last saw him last year and referred him to Cardiology, he reportsthat he was cleared for surgery, but by the time he was cleared it was close to summer time and could not do it at the time. He is active and likes to be outdoors, when he tries to fish or lutz he has a lot of difficulties. He has problems with walking on uneven ground. The left knee is doing well he has some crepitus, but otherwise he is doing well. ROS: At his last ortho visit a year ago he reported a 60 lb weight loss, since then he reports that his weight has been steady since then. He is negative for fever, chills, chest pain, shortness of breath, nausea or vomiting. Patient Active Problem List Diagnosis Date Noted ??? Preop testing - TKR 09/09/2012 ??? Osteoarthritis of right knee 08/04/2012 ??? CAD (coronary artery disease) 06/01/2012 ??? Myocardial infarction, old 06/01/2012 ??? Lipid disorder 06/01/2012 ??? Hypertension 06/01/2012 ??? RJ (obstructive sleep apnea) 06/01/2012 ??? History of total knee arthroplasty(LEFT) 05/14/2011 ??? CIS - DJD 01/31/2009 ??? CIS - DM, Type II 01/31/2009 ??? CIS - Morbid obesity 01/31/2009 Physical Exam Blood pressure 118/56, pulse 51, height 175.3 cm (5' 9), weight 110.043 kg (242 lb 9.6 oz). Constitutional: oriented to person, place, and time and well-developed, well- nourished, and in no distress. Skin: Skin is warm and dry. Knee Exam Comments: Comes in without antalgia. Noeffusion. I have made the following determinations: Knee Exam: Right Prior surgery on this joint: No Gait Abnormality: Normal and Antalgic Knee ROM: Extension:0 Flexion: 110 Alignment: 0-4 degrees Varus Stability: A/P Translation <5mm. Varus (lateral stability) <5mm Valgus (medial stability) <5mm Extension La degrees or less Radiographic evidence of joint damage: [0= normal; 1=minimal ; 2= some osteophytes , some narrowing ; 3= moderate osteophytes, significant narrowing, mild deformity; 4= large osteophytes, marked narrowing, obvious deformity]: 4= large osteophytes, marked narrowing, obvious deformity Patella Tracking: Normal Skin Integrity: Normal Pulses Palpable: Right PT: Yes Right DP:Yes Motor/Sensory: Distal Motor: Normal Distal Sensory: Normal Quadriceps Strength: 5 I have made the following determinations: Post Op Left Knee Exam: Gait Abnormality: Antalgic Knee ROM: Extension:0 Flexion: 115 Alignment: 0-4 degrees Neutral Stability: A/P Translation <5mm Varus (lateral stability) <5mm Valgus (medial stability) <5mm Extension La degrees or less Patella Tracking: Normal Pulses Palpable: Left PT:No Left DP:No Motor/Sensory: Distal Motor: Normal Distal Sensory: Normal Quadriceps Strength:5 RADIOLOGICAL STUDIES: I reviewed images of the bilateral knee taken today, with advanced DJD of the right knee and narrowing of the medial compartment, the left knee s/p TKA without any signs of hardware loosening or complications. ASSESSMENT/PLAN: The patient was seen and the plan was formulated in conjunction with Dr. Garza. Lisa Romo is a 68 y.o. male presents to the clinic with right knee pain secondary to advanced stage of osteoarthritis of the joint. The patient has had progressive pain over the right knee which isstarting to impair his level of function activity. He is most interested in pursuing total joint replacement. We discussed the surgical procedure, the risk and benefits of the surgery, and usual rehabilitation course. Given his past medical history significant for previous myocardial infarction, coronary artery disease, diabetes mellitus, and hypertension we would like him to see his guest services assistant for pre-operative clearance as well as LINDA studies to evaluate for peripheral vascular disease. In regards to his left knee he is s/p a left total knee replacement performed in September of 2005 the patient is doing very well postoperatively without any signs or symptoms of complications. We discussed the surgical booking will be placed in the OR schedulers will contact him regarding scheduling of the surgery and preoperative evaluations needed prior to the surgery. documented in this encounter Miscellaneous Notes Addendum Note - Eliza Schroeder PA - 08/10/2013 5:08 PM EST Addended by: ELIZA SCHROEDER on: 08/10/2013 05:08 PM Modules accepted: Orders documented in this encounter Plan of Treatment Upcoming Encounters Date Type Specialty Care Team Description 03/12/2022 Appointment Cardiology Diane Garcia APRN [facility] DR CARDIOLOGY [place], [place] [address] (Wo rk) documented as of this encounter Results LINDA, legs, multiple levels (10/02/2013 1:38 PM EDT) Component Value Ref Test Analysis Performed At [facility] Range Method Time Signature VB Text VASCUBASE Report Department: Vascular Surgery Lab Patient: [id number] (LISA ROMO) CPT Code: 41732 ICD-9: 440.20 Referring Physician: JUAN JOSE GARZA Indication: ?? RIGHT lower extremity pain with walking, ? PV D Diabetes mellitus: Yes ICD9 Diagnosis Code: 440.20 LINDA = Ankle / Brachial Systolic Pressure Index, TBI = Toe / Brachial Systolic Pressure Index Findings: Right ?Pressure (mm Hg) ?? LINDA ??Waveform ? TBI ?? Brachial Artery ?157 ? Common Femoral Artery ?Triphasic ? Pop Fossa ?Triphasic ? Dorsalis Pedis (Ankle) Arter y ?176 ? 1.12 ??Bi-Triphasic ? Posterior Tibial (Ankle) Art jerry ??191 ? 1.22 ??Triphasic ? Great Toe ?107 ? 0.68 ?? Left ? Pressure (mm Hg) ?? LINDA ??Waveform ?TBI ?? Brachial Artery ?155 ? Common Femoral Artery ?Triphasic ? Pop Fossa ?Triphasic ? Dorsalis Pedis (Ankle) Arter y ?184 ? 1.17 ??Triphasic ? Posterior Tibial (Ankle) Art jerry ??178 ? 1.13 ??Triphasic ? Great Toe ?125 ?0.80 ?? Interpretation: RIGHT: Mild lower extremity arterial occlusive disease. LEFT: No significant lower extremity arterial oc clusive disease identified at rest. Normal ankle/brachial pressure ratios and Doppler waveforms. Comment: If patient symptoms are consistent with vascular cl audication, consider treadmill exam to identify sylvia rial stenoses that are hemodynamically significant only when the periphery is vasodilated. Comparison: ??No previous study in our vascular lab da tabase for comparison. Electronically Signed by: MICH BLANCO on 2013-10-03 09:54: 26 AM VB Text End of Report VASCUBASE Report Specimen (Source) Anatomical Collection Method Collection Time Re ceived Time Location / / Volume Laterality 10/02/2013 1:38 PM EDT Juan Jose Garza MD VASCULAR ORDERABLES Performing Organization Address City/State/ZIP Code Phon e Number [email or web address] documented in this encounter Visit Diagnoses Diagnosis Osteoarthritis of right knee Osteoarthrosis, unspecified whether gene ralized or localized, lower leg History of total knee arthroplasty, left documented in this encounter Care Teams Counselor Manager Relationship Specialty Start Date End Date Candace Avery, MELISSA PCP - General 04/03/11 01/17/15 CAROLYN [address] [place] [address] documented as of this encounter
--- OUTSIDE RECORDS SUMMARY | 2022-01-28 01:21 | XMS_ITS | Encounter Summary ---
:1945 Author Organization [facility] Address [address] [place] [address] Care Team Providers Name Role Phone BennieDaliaCandacemarissa Blanc APRN Primary Care Provider Encounter Details Date Type Department Care Team Description 08/10/2013 Hospital Encounter [place] at [facility] [place] Osteoarthritis of right knee ; [address] History of total knee arthro plasty, left; [place], [place] Knee joint repl acement by other means [phone] Social History Tobacco Use Types Packs/Day Years [...] BID 0 1 (VEETID) 500 mg tablet amlodipine (NORVASC) 10 mg Take 2.5 mg by 0 01/25/2014 tablet mouth daily. CALCIUM CARBONATE/VITAMIN Take 2,000 Units by 0 01/25/2014 D3 (VITAMIN D-3 ORAL) mouth daily. acetaminophen (TYLENOL) Take 1,000 mg by 0 12/14/2013 500 mg tablet mouth every 6 hours as needed. ferrous sulfate 325 mg (65 Take 325 [...] by mouth 0 11/18/2015 mg tablet daily. aspirin 325 mg tablet 0 08/06/201011/2013 documented as of this encounter Plan of Treatment Upcoming Encounters Date Type Specialty Care Team Description 03/12/2022 Appointment Cardiology Diane Garcia, HAND OUTSIDE CUTTER [facility] [place], [place] [address] (Wo rk) documented as of this encounter Procedures Procedure Name Priority Date/Time Associated Diagnosis Comme nts XR KNEE AP AND LAT Routine 08/10/2013 2:07 PM Osteoarthritis o f right Results for this BILAT EST knee procedure are in History of total knee the re sults arthroplasty, le ft section. Knee joint replacement by other means documented in this encounter Results XR knee bilateral 1 or 2 view (08/10/2013 2:07 PM EST) Anatomical Region Laterality Modality Knee Bilateral Radiographic Imaging Specimen (Source) Anatomical Collection Method Collection Time Re ceived Time Location / / Volume Laterality 08/10/2013 2:07 PM EST Narrative 08/12/2013 9:16 AM EST Examination KNEE BILATERAL 1 OR 2 VIEWS/BILAT, 08/10 ?? Clinical History L TKA R KNEE DJD Comparison AP standing view of both knees and later al views of the right knee, 08/04/2012; AP standing and lateral radiographs of t he bilateral knees, 05/14/2011. Technique AP standing and lateral radiographs of t he bilateral knees. Findings Left total knee arthroplasty is unchange d in position, no dislocation, periprosthetic fracture, or interval per iprosthetic radiolucencies identified. ?? No significant left knee effusion. ??Unc hanged small broad-based ossification/calcification just superior to the femoral prosthesis anteriorly best seen on the lateral view. Right knee is unchanged compared to the prior July 2012 radiographs, with unchanged tricompartmental osteoarthriti s characterized by joint space narrowing, subchondral sclerosis, and sm all osteophytes, joint space narrowing most severe involving the medial compart ment. ??Lateral and medial compartment chondrocalcinosis is again noted. ??Pers istent right knee effusion, not significantly changed. Impression 1. ??Unchanged appearance of left total knee arthroplasty. 2. ??Stable right knee osteoarthritis, m ost advanced in the medial compartment, and chondrocalcinosis. Procedure Note Paris Peacock MD - 08/12/2013Formatt ing of this note might be different from the original. Examination KNEE BILATERAL 1 OR 2 VIEWS/BILAT, 08/10 Clinical History L TKA R KNEE DJD Comparison AP standing view of both knees and later al views of the right knee, 08/04/2012; AP standing and lateral radiographs of t he bilateral knees, 05/14/2011. Technique AP standing and lateral radiographs of t he bilateral knees. Findings Left total knee arthroplasty is unchange d in position, no dislocation, periprosthetic fracture, or interval per iprosthetic radiolucencies identified. No significant left knee effusion. Uncha nged small broad-based ossification/calcification just superior to the femoral prosthesis anteriorly best seen on the lateral view. Right knee is unchanged compared to the prior July 2012 radiographs, with unchanged tricompartmental osteoarthriti s characterized by joint space narrowing, subchondral sclerosis, and sm all osteophytes, joint space narrowing most severe involving the medial compart ment. Lateral and medial compartment chondrocalcinosis is again noted. Persis tent right knee effusion, not significantly changed. Impression 1. Unchanged appearance of left total kn ee arthroplasty. 2. Stable right knee osteoarthritis, mos t advanced in the medial compartment, and chondrocalcinosis. Chandra Del Rosario MD IMG DX ORDERABLES documented in this encounter Visit Diagnoses Diagnosis Osteoarthritis of right knee Osteoarthrosis, unspecified whether gene ralized or localized, lower leg History of total knee arthroplasty, left Knee joint replacement by other means documented in this encounter Care Teams Infrastructure Manager Relationship Specialty Start Date End Date Candace Avery, HAND OUTSIDE CUTTER PCP - General 04/03/11 01/17/15 CAROLYN [address] [place] [address] documented as of this encounter
--- OUTSIDE RECORDS SUMMARY | 2022-01-28 01:21 | XMS_ITS | Encounter Summary ---
:1945 Author Organization [facility] [place] [address] Care Team Providers Name Role Phone Candace Avery APRN Primary Care Provider Encounter Details Date Type Department Care Team Description 04/06/2011 Orders Only Orthopaedics at [facility] Chandra Del Rosario, S/P TKR (total knee [facility] MD replacement) [place] [phone] ORTHOPAEDIC SURGERY [place], [place] [address] Social History Tobacco Use Types Packs/Day Years Used Date Never Assessed Sex Assigned at Date Recorded Not on file documented as of this encounter Plan of Treatment Upcoming Encounters Date Type Specialty Care Team Description 03/12/2022 Appointment Cardiology Diane Garcia APRN [facility] CARDIOLOG[facility] [place], [place] [address] (Wo rk) documented as of this encounter Visit Diagnoses Diagnosis S/P TKR (total knee replacement) Knee joint replacement by other means documented in this encounter Care Teams Remote Broadcast Engineer Relationship Specialty Start Date End Date Candace Avery APRN PCP - General 04/03/11 01/17/15 CAROLYN [address] [place] [address] documented as of this encounter
--- OUTSIDE RECORDS SUMMARY | 2022-01-28 01:21 | XMS_ITS | Encounter Summary ---
:1945 Author Organization [facility] Address [address] [place] [address] Care Team Providers Name Role Phone Candace Avery MELISSA Primary Care Provider Reason for Visit Reason Comments Right Knee Pain Follow up Encounter Details Date Type Department Care Team Description 08/04/2012 Office Visit Orthopaedics at [facility] Chandra Del Rosario (coronary artery disease ); [facility] MD Taran Myocardial infarction, old; [facility] History of total knee arthro plasty(LEFT); [place] [address] CENTER Osteoarthritis of right knee; [phone] ORTHOPAEDIC Weight loss, [place] [address] Social History Tobacco Use Types Packs/Day Years Used Date Never Smoker Smokeless Tobacco: Never Used Alcohol Use Standard Drinks/Week Comments No 0 (1 standard drink = 0.6 oz pure alcoho l) Sex Assigned at Date Recorded Not on file documented as of this encounter Last Filed Vital Signs Vital Sign Reading Time Taken Comments Blood Pressure 141/88 08/04/2012 2:38 PM EST Pulse - - Temperature - - Respiratory Rate - - Oxygen Saturation - - Inhaled Oxygen Concentration - - Weight 112 kg (247 lb) 08/04/2012 2:38 PM EST Height 174.6 cm (5' 8.75) 08/04/2012 2:38 PM EST Body Mass Index 36.74 08/04/2012 2:38 PM EST documented in this encounter Progress Notes Pb Schroeder, CELIA - 08/04/2012 2:44 PM EST PATIENT NAME: Corona Romo AGE: 67 y.o. MR#: [id number] DATE OF VISIT: 08/04/2012 SURGERY DATE: 09/10/2005 Procedure Performed: Left total knee arthroplasty. STAFF: The patient was seen and the plan was formulated in conjunction with Dr. Del Rosario. CHIEF COMPLAINT: right knee pain HISTORY OF PRESENT ILLNESS Mr. Romo a 67 y.o. year old male comes into clinic today for right knee pain. He reports ongoing pain and soreness of the knee. He is very active and likes to be outdoors, when he tries to fish or lutz he has a lot of difficulties. He has problems with walking on uneven ground. He as some intermittent swelling and some feeling of giving way. He is without night time pain. Mr. Romo has a history of a remote NC and apparent stable CAD by symptoms. He reports that he has seen Dr. Marino in cardiology to undergo further cardiac evaluation prior to proceeding with a total knee replacement and trying to improve his blood pressure control. His next follow-up is next week. The patient is status post left total knee arthroplasty performed nearly 7 years ago. He reports that his left knee is doing well and is without any complaints. ROS: The patient reports a 60 lb weight loss over the past few months without any attempts to lose weight. He is negative for fever, chills, chest pain, shortness of breath, nausea or vomiting. Patient Active Problem List Diagnoses Date Noted ??? CAD (coronary artery disease) 06/01/2012 ??? Myocardial infarction, old 06/01/2012 ??? Lipid disorder 06/01/2012 ??? Hypertension 06/01/2012 ??? RJ (obstructive sleep apnea) 06/01/2012 ??? History of total knee arthroplasty(LEFT) 05/14/2011 ??? CIS - DJD 01/31/2009 ??? CIS - DM, Type II 01/31/2009 ??? CIS - Morbid obesity 01/31/2009 Physical Exam Blood pressure 141/88, height 174.6 cm (5' 8.75), weight 112.038 kg (247 lb). Constitutional: oriented to person, place, and time and well-developed, well- nourished, and in no distress. Skin: Skin is warm and dry. Right Knee Exam Comments: Comes in without antalgia. Noeffusion. ROM 0 deg flexion, 115 deg extension. No medial joint line tenderness. No lateral joint line tenderness Stable to varus/valgus stress. Negative Anterior/posterior drawer Neg Lachmans with a firm endpoint. Able to do a straight leg raise without lag. Normal sensation and motor function distally. I have made the following determinations: Knee Exam: Right Prior surgery on this joint: No Gait Abnormality: Normal and Antalgic Knee ROM: Extension:0 Flexion: 115 Alignment: 0-4 degrees Varus Stability: A/P Translation [...] RADIOLOGICAL STUDIES: I reviewed images of the right knee taken today, Severe medial compartment joint space narrowing persist, with mild increase and productive change inthe patellofemoral compartment and enthesophyte along the ventral aspect of the superior patella nowvisible on the lateral view. Minimally smaller suprapatellar effusion. Post arthroplasty appearance of the left knee not significantly changed. ASSESSMENT/PLAN: The patient was seen and the plan was formulated in conjunction with Dr. Del Rosario. Corona Romo is a 67 y.o. male presents to the clinic with right knee pain secondary to advanced stage of osteoarthritis of the joint. The patient is starting to experiencing increased impairment of his function and is interested in receiving with a total knee replacement of the right side. Given hispast medical history significant for previous myocardial infarction, coronary artery disease, diabetes mellitus, and hypertension it would be very important for him to get clearance from a cardiovascular standpoint. The patient is scheduled to see Dr. Marino in cardiology and will undergo a phsiologic stress testing. We discussed with the patient that we'll be in contact with his PCP Lisbeth Avery regarding his recent unintentional 60 pound weight loss. We discussed that we would like this would need to be worked up prior to proceeding with surgery and having appropriate preoperative clearance from his primary care. He also has a history of a left total knee replacement performed in September of 2005 the patient is doing very well postoperatively without any signs or symptoms of complications. We discussed the booking him for the surgery will be made and the or schedulers will contact him to help set a date for the procedure. documented in this encounter Plan of Treatment Upcoming Encounters Date Type Specialty Care Team Description 03/12/2022 Appointment Cardiology Diane Garcia APRN [facility] [address] [place], [place] [address] (Wo rk) documented as of this encounter Visit Diagnoses Diagnosis CAD (coronary artery disease) Coronary atherosclerosis of unspecified type of vessel, [place] or graft Myocardial infarction, old Old myocardial infarction History of total knee arthroplasty(LEFT) Knee joint replacement by other means Osteoarthritis of right knee Osteoarthrosis, unspecified whether gene ralized or localized, lower leg Weight loss, non-intentional Loss of weight documented in this encounter Care Teams Enterprise Application Administrator Relationship Specialty Start Date End Date Candace Avery APRN PCP - General 04/03/11 01/17/15 [facility] [address] [place] [address] documented as of this encounter
--- OUTSIDE RECORDS SUMMARY | 2022-01-28 01:21 | XMS_ITS | Encounter Summary ---
:1945 Author Organization [facility] [place] [address] Care Team Providers Name Role Phone Candace Avery APRN Primary Care Provider Reason for Visit Reason Comments Coronary Artery Disease Encounter Details Date Type Department Care Team Description 10/02/2013 Follow-Up Cardiology at [facility] Hima Marino, CAD (coronary artery disease ); [facility] Lipid disorder; [facility] [address] CARDIOLOGY DEPT. [place] [id number] (Wo rk) Social History Tobacco Use Types Packs/Day Years Used Date Never Smoker Smokeless Tobacco: Never Used Alcohol Use Standard Drinks/Week Comments No 0 (1 standard drink = 0.6 oz pure alcoho l) Sex Assigned at Date Recorded Not on file documented as of this encounter Last Filed Vital Signs Vital Sign Reading Time Taken Comments Blood Pressure 154/82 10/02/2013 2:23 PM EDT Pulse 58 10/02/2013 2:23 PM EDT Temperature - - Respiratory Rate - - Oxygen Saturation 95% 10/02/2013 2:23 PM EDT Inhaled Oxygen Concentration - - Weight 110.2 kg (243 lb) 10/02/2013 2:23 PM EDT Height 175.3 cm (5' 9) 10/02/2013 2:23 PM EDT Body Mass Index 35.88 10/02/2013 2:23 PM EDT documented in this encounter Progress Notes Hima Marino MD - 10/02/2013 2:36 PM EDT Cardiology Clinic Note History: Corona Romo is a 68 y.o. male presenting for routine office follow up of cardiovascular problems. The patient states that he is now having more difficulty with his right knee from DJD and he has been seen by Dr. Del Rosario for TKR planning. This planning also occurred last year but the operation never took place. I had ordered a pharmacologic stress using myocardial perfusion imaging at that time and the study was negative for ischemia or scar. He reports that he has generally been doing well and has lost 90lbs by avoiding snacks and soda. Also, he underwent periumbilical hernia surgery last fall at [facility] and this was complicated by some perioperative infection and the need for reoperation. He had no cardiac issues with the surgeries other than some labile BP elevation during the operations by his 's report. He denies abdominal pain, fever, dysuria. He likewise has not had angina, PND, orthopnea. No recurrent syncope. Meds as below now include clonidine. He is using his CPAP mask nightly. He reports being able to climb a set of stairs if he takes his time and hangs on to the railing. Allergies as of 10/02/2013 ??? (No Known Allergies) Current Outpatient Rx Name Route Sig Dispense Refill ??? AMLODIPINE 10 MG TABLET Oral Take 2.5 mg by mouth daily. ??? VITAMIN D-3 ORAL Oral Take 2,000 Units by mouth daily. ??? ACETAMINOPHEN 500 MG TABLET Oral Take 1,000 mg by mouth every 6 hours as needed. ??? NEBIVOLOL 10 MG TABLET Oral Take 1 tablet by mouth daily. ??? FERROUS SULFATE 325 MG (65 MG IRON) TABLET,DELAYED RELEASE Oral Take 325 mg by mouth 2 times daily. ??? LOSARTAN 100 MG TABLET Oral Take 100 mg by mouth daily. ??? FUROSEMIDE 80 MG TABLET Oral Take 80 mg by mouth 2 times daily. ??? POTASSIUM CHLORIDE ER 20 MEQ TABLET,EXTENDED RELEASE(PART/CRYST) Oral Take 20 mEq by mouth 2 times daily. ??? ATORVASTATIN 40 MG TABLET Oral Take 80 mg by mouth daily. ??? METFORMIN 500 MG TABLET Oral Take 1,000 mg by mouth 2 times daily (with meals). ??? BUPROPION HCL SR 150 MG TABLET,SUSTAINED-RELEASE Oral Take 150 mg by mouth 2 times daily. ??? ALBUTEROL SULFATE HFA 90 MCG/ACTUATION AEROSOL INHALER Inhalation Inhale 2 puffs into the lungs every 4 hours as needed. Use with spacer ??? ASPIRIN 325 MG TABLET Oral << Patient Not Taking >> ??? PENICILLIN V POTASSIUM 500 MG TABLET Oral 500mg, PO, BID Physical Exam: Blood pressure 154/82, pulse 58, height 175.3 cm (5' 9), weight 110.224 kg (243 lb), SpO2 95.00%. General: Obese, older man, appearing comfortable at rest HEENT: Eyes: No conjunctival pallor Neck: No JVD, carotid bruits or lymphadenopathy Lungs: Clear to A+P Cor: RR, normal S1, S2. PMI not displaced. No murmur or gallop Abd: soft, no L/S/K enlargement or bruits Ext: Pulses preserved, no edema, cyanosis or clubbing Neuro: physiologic Skin: Without rash or icterus Lab data: Recent LINDA showed mild PVD in the right leg, normal left. ECG today is unremarkable and unchanged from the prior study in July of 2012. REST AND PHARMACOLOGIC MYOCARDIAL PERFUSION SCANS, 09/09/12 [...] idiopathic, improved 3. Lipid disorder, on statin I talked with the patient about his remote MO and the stable CAD by symptoms. I reviewed the findings on his stress test last year and that the guidelines do not suggest the need for another study given his cardiovascular stability. I believe he is stable to proceed with the RTKR with Dr. Del Rosario when this can be scheduled. I reviewed the active treatment and ongoing surveillance for the cardiovascular problems as appropriate. I addressed the patient's questions. Non-Cardiac Problems: 1, DM, Type II 2. Morbid obesity 3. Obstructive sleep apnea, on CPAP daily 4. DJD Cardiology follow up scheduled for: 1 year prn 20 minutes of this 30 minute visit was spent in face to face discussion with the patient regarding the diagnoses in the assessment and plan of care. documented in this encounter Plan of Treatment Upcoming Encounters Date Type Specialty Care Team Description 03/12/2022 Appointment Cardiology Diane Garcia APRN [facility] DR CARDIOLOGY [place], [place] [address] (Wo rk) Scheduled Orders Name Type Priority Associated Diagnoses Order S chedule EKG 12 Lead ECG Routine CAD (coronary artery disease ) Ordered: 10/02/2013 documented as of this encounter Procedures Procedure Name Priority Date/Time Associated Diagnosis Comme nts EKG 12-LEAD Routine 10/02/2013 2:52 PM CAD (coronary artery R esults for this EDT disease) procedure are i n the results section . documented in this encounter Results EKG 12 Lead (10/02/2013 2:52 PM EDT) Component Value Ref Range Test Analysis Performed Pathologis t Method Time At Signature Ventricular rate 55 BPM MUSE SYSTEM Atrial Rate 55 BPM MUSE SYSTEM P-R Interval 148 ms MUSE SYSTEM QRS Duration 94 ms MUSE SYSTEM Q-T Interval 440 ms MUSE SYSTEM QTC Calculated 420 ms MUSE SYSTEM (Bezet) Calculated P Clarkson 52 degrees MUSE SYSTEM Calculated R Clarkson -22 degrees MUSE SYSTEM Calculated T Clarkson 18 degrees MUSE SYSTEM INTERPRETATION Sinus bradycardia MUSE SY STEM Otherwise normal ECG When compared with ECG of 10-AUG-2012 09:31, Nonspecific T wave abnormality, improved in Inferior leads Confirmed by HANNAH, ??, JV ([id number]) on 10/03/2013 10:55:2 7 AM Specimen Anatomical Collection Method Collection Time Receive d Time (Source) Location / / Volume Laterality 10/02/2013 2:52 PM 4 EDT 10:55 AM EDT Hima Marino MD ECG ORDERABLES Performing Organization Address City/State/ZIP Code Phon e Number MUSE SYSTEM documented in this encounter Visit Diagnoses Diagnosis CAD (coronary artery disease) Coronary atherosclerosis of unspecified type of vessel, [place] or graft Lipid disorder Unspecified disorder of lipoid metabolis m Hypertension Unspecified essential hypertension documented in this encounter Care Teams Incident Response Lead Relationship Specialty Start Date End Date Candace Avery, SOUND RANGING CREWMEMBER PCP - General 04/03/11 01/17/15 [facility] [address] [place] [address] documented as of this encounter
--- OUTSIDE RECORDS SUMMARY | 2022-01-28 01:21 | XMS_ITS | Encounter Summary ---
:1945 Author Organization [facility] [place] [address] Care Team Providers Name Role Phone Candace Avery Guanaco TORRES Primary Care Provider Encounter Details Date Type Department Care Team Description 05/30/2012 Orders Only Orthopaedics at [facility] Chandra Del Rosario, Right knee pain [facility] (Primary Dx) [place] [address] ORTHOPAEDIC SURGERY [place], [place] [address] Social History Tobacco Use Types Packs/Day Years Used Date Never Smoker Smokeless Tobacco: Never Used Alcohol Use Standard Drinks/Week Comments No 0 (1 standard drink = 0.6 oz pure alcoho l) Sex Assigned at Date Recorded Not on file documented as of this encounter Plan of Treatment Upcoming Encounters Date Type Specialty Care Team Description 03/12/2022 Appointment Cardiology Diane Garcia APRN [facility] CARDIOLOGY [place], [place] [address] (Wo rk) documented as of this encounter Results XR knee diagnostic 1 or 2 view (08/04/2012 1:25 PM EST) Anatomical Region Laterality Modality Knee N/A Radiographic Imaging Specimen (Source) Anatomical Collection Method Collection Time Re ceived Time Location / / Volume Laterality 08/04/2012 1:25 PM EST Narrative 08/04/2012 1:45 PM EST Examination KNEE 1 OR 2 VIEWS/RIGHT Clinical History F/U RIGHT KNEE PAIN / DJD Comparison 05/14/2011. Technique AP standing view of both knees, as well as lateral view of the right knee. Findings Severe medial compartment joint space na rrowing persist, with mild increase and productive change in the patellofemoral compartment and enthesophyte along the ventral aspect of the superior patella n ow visible on the lateral view. ?? Minimally smaller suprapatellar effusion . ??Post arthroplasty appearance of the left knee not significantly changed. Impression Mild increase in right knee arthropathic change. Procedure Note Stefany Barker MD - 08/04/2012Formatt ing of this note might be different from the original. Examination KNEE 1 OR 2 VIEWS/RIGHT Clinical History F/U RIGHT KNEE PAIN / DJD Comparison 05/14/2011. Technique AP standing view of both knees, as well as lateral view of the right knee. Findings Severe medial compartment joint space na rrowing persist, with mild increase and productive change in the patellofemoral compartment and enthesophyte along the ventral aspect of the superior patella n ow visible on the lateral view. Minimally smaller suprapatellar effusion . Post arthroplasty appearance of the left knee not significantly changed. Impression Mild increase in right knee arthropathic change. Chandra Del Rosario MD IMG DX ORDERABLES documented in this encounter Visit Diagnoses Diagnosis Right knee pain - Primary Pain in joint, lower leg Right knee pain Pain in joint, lower leg documented in this encounter Care Teams Boiler Tester Relationship Specialty Start Date End Date Candace Avery APRN PCP - General 04/03/11 01/17/15 [facility] [address] [place] [address] documented as of this encounter
--- OUTSIDE RECORDS SUMMARY | 2022-01-28 01:21 | XMS_ITS | Encounter Summary ---
:1945 [place] [address] Care Team Providers Name Role Phone Candace Avery APRN Primary Care Provider Encounter Details Date Type Department Care Team Description 09/09/2012 Hospital Encounter Nuclear Medicine at [facility] [place] [address] Social History Tobacco Use Types Packs/Day Years Used Date Never Smoker Smokeless Tobacco: Never Used Alcohol Use Standard Drinks/Week Comments No 0 (1 standard drink = 0.6 oz pure alcoho l) Sex Assigned at Date Recorded Not on file documented as of this encounter Medications at Time of Discharge Medication Sig Dispensed Refills Start Date End Date losartan (COZAAR) 100 mg Take 100 mg [...] BID 0 1 (VEETID) 500 mg tablet cloNIDine (CATAPRES) 0.1 Take 0.1 mg by 0 08/10/2013 mg tablet mouth nightly. ferrous sulfate 325 mg (65 Take 325 [...] Appointment Cardiology Diane Garcia APRN [facility] CARDIOLOGY [place], [place] [address] (Wo rk) documented as of this encounter Visit Diagnoses Not on filedocumented in this encounter Care Teams Cleat Layer Relationship Specialty Start Date End Date Candace Avery APRN PCP - General 04/03/11 01/17/15 [facility] [address] [place] [address] documented as of this encounter
--- OUTSIDE RECORDS SUMMARY | 2022-01-28 01:21 | XMS_ITS | Encounter Summary ---
:1945 Author Organization [facility] Address [address] [facility] [place] [address] Care Team Providers Name Role Phone Candace Avery MELISSA Primary Care Provider Reason for Visit Reason Comments Right Knee Pain knee pain Encounter Details Date Type Department Care Team Description 11/30/2013 Office Visit Orthopaedics at [facility] Chandra Del Rosario (degenerative joint dise ase) of knee (Primary Dx); [facility] MD Taran Encounter for long-term (current) use of other medications; [facility] Osteoarthritis of knee; [place] [address] Pain in limb; [phone] ORTHOPAEDIC Debility, [place] [address] Social History Tobacco Use Types Packs/Day Years Used Date Never Smoker Smokeless Tobacco: Never Used Alcohol Use Standard Drinks/Week Comments No 0 (1 standard drink = 0.6 oz pure alcoho l) Sex Assigned at Date Recorded Not on file documented as of this encounter Last Filed Vital Signs Vital Sign Reading Time Taken Comments Blood Pressure 155/74 11/30/2013 1:21 PM EDT Pulse 55 11/30/2013 1:21 PM EDT Temperature - - Respiratory Rate - - Oxygen Saturation - - Inhaled Oxygen Concentration - - Weight 113.9 kg (251 lb) 11/30/2013 1:21 PM EDT Height 172.7 cm (5' 8) 11/30/2013 1:21 PM EDT Body Mass Index 38.16 11/30/2013 1:21 PM EDT documented in this encounter Progress Notes Chandra Del Rosario MD - 11/30/2013 1:31 PM EDT HISTORY OF PRESENT ILLNESS: Very pleasant 68 y.o. year-old male with severe osteoarthritis of the knee. Given the severe nature of the arthritis and disability, aswell as the failure of conservative treatment measures, the patient has decided to proceed with right total knee arthroplasty. Please refer to my previous note for the full history. The patient reports that the pain has not changed and has actually gotten a bit worse. He reviewed the shared decision making video and is confident in the decision to go forward with total joint arthroplasty. He attended the [facility] Preop Education class and has received the TKA binder and reviewed the contents. PHYSICAL EXAMINATION: Exam is previously documented in my note and is unchanged. Preop History and Physical completed by PCP. RELEVANT LAB STUDIES: Lab Results Component Value Date WBC 6.6 11/30/2013 HGB 13.4* 11/30/2013 HCT 40.5 11/30/2013 PLATELET 213 11/30/2013 CREATININE 1.16 11/30/2013 BUN 28* 11/30/2013 NA 140 11/30/2013 K 3.5 11/30/2013 INR 0.9 11/30/2013 Estimated Creatinine Clearance: 73.6 ml/min (based on Cr of 1.16). Urine: culture pending type and screen done. DVT Risk Assessment Screening (TKR Doc flowsheet )reviewed: - Hx of DVT/ PE ? [x} No - Hypercoagulable State? [x} No - Genetic predisposition for DVT/PE? [x} No - Hx. Of Bleeding disorder?[x} No - Hx of GIB? [x} No - Hx of Hemorrhagic stroke? [x} No - Currently on lifelong coumadin?[x} No - Unable to tolerate coumadin? [x} No ASSESSMENT/PLAN: A 68 y.o. year-old male who presents for preoperative appointment today. The risks and benefits of the procedure were outlined in detail including but not limited to bleeding ,infection ,blood clots, scar formation, patellar dislocation, persistent pain, stiffness, failure, wear or loosening of components, fracture, nerve palsy, injury to blood vessel, skin numbness, anesthetic risksor medical complications and need for additional surgery. I used total knee implants to demonstrate how we perform the procedure and all questions were answered. I did review the history and physical today which says the patient is cleared for surgery and has no specific recommendations for further testing. I reviewed the labs and there were no issues with those. Informed consent was signed in the clinic today. We discussed DNR status and the patient is a full code. We will plan to use coumadin for 28 days postoperatively for DVT prophylaxis. Experiences intemittent numbness in his right foot We discussed the possible discharge scenarios including going home versus needing to go to a rehab facility. We will make that determination after seeing how well mobilization is progressing. documented in this encounter Miscellaneous Notes Miscellaneous - Provider, Scanning - 12/15/2013 11:49 AM EDT documented in this encounter Plan of Treatment Upcoming Encounters Date Type Specialty Care Team Description 03/12/2022 Appointment Cardiology Diane Garcia, GLOBAL LOGISTICS ANALYST [facility] CARDIOLOGY [place], [place] [address] (Wo rk) documented as of this encounter Procedures Procedure Name Priority Date/Time Associated Diagnosis Comme nts URINALYSIS WITH Routine 11/30/2013 11:49 Osteoarthritis of kne e Results for this REFLEX CULTURE AM EDT procedure are in the results section. URINE CULTURE Routine 11/30/2013 11:49 Debility, unspecified R esults for this AM EDT procedure are i n the results section. HEMOGRAM Routine 11/30/2013 11:17 Encounter for Results fo r this AM EDT long-term (current) procedur e are in use of other the results medications section. DIFFERENTIAL, Routine 11/30/2013 11:17 Encounter for Results f or this AUTOMATED AM EDT long-term (current) procedur e are in use of other the results medications section. TYPE AND SCREEN, SDP Routine 11/30/2013 11:17 Osteoarthritis o f knee (FUTURE SURGERY, AM EDT [facility] SAME DAY PROGRAM ONLY) ABO/RH TYPING Routine 11/30/2013 11:17 Osteoarthritis of knee Results for this AM EDT procedure are i n the results section. PROTHROMBIN TIME Routine 11/30/2013 11:17 Pain in limb Results for this AM EDT procedure are i n the results section. CBC (WITH DIFF) Routine 11/30/2013 11:17 Encounter for AM EDT long-term (current) use of other medications ANTIBODY SCREEN Routine 11/30/2013 11:17 Osteoarthritis of kne e Results for this AM EDT procedure are i n the results section. BASIC METABOLIC Routine 11/30/2013 11:17 Osteoarthritis of kne e Results for this PANEL (NON-FASTING) AM EDT procedur e are in the results section. documented in this encounter Results Urine culture Clean Catch Urine (11/30/2013 11:49 AM EDT) [facility] Method Time Signature Urine Culture CERNER ? Patient Name: LISA ROMO ? Ordered By: CHANDRA DEL ROSARIO [facility] ? MR#: [id number] ?LOC: ??3D ? /Sex: ??1945 (68 years), ? Male ? PROCEDURE: Urine Culture ?SOURCE: U CC ? COLLECTED: 11/30/2013 11:49 ? STARTED: 11/30/2013 12:51 ? FINAL REPORT ? Final Report ? Verified:12/01/2013 07:50 ? No growth (Less than 1,000 cfu/ml). ? Specimen (Source) Anatomical Collection Method Collection Time Re ceived Time Location / / Volume Laterality Urine specimen 11/30/2013 11:49 4 obtained by clean AM EDT 12:51 PM E DT catch procedure (specimen) Resulting Agency Comment Spec In Lab Chandra Del Rosario MD MICROBIOLOGY - GENERAL ORDER MARY ALICE Performing Organization Address City/[facility]/[place] [address] CERNER MILLENNIUM (ABNORMAL) Urinalysis with microscopic (11/30/2013 11:49 AM EDT) [facility] Method Time Signature Glucose UA Negative Negative CERNER mg/dL MILLENNIUM Protein UA Trace (A) Neg mg/dL CERNER MILLENNIUM Bilirubin UA Negative Negative CERNER mg/dL MILLENNIUM Comment: Clinical correlation required for positi ve Urine Bilirubin results as false positive may occur with some drugs and d rug related products. If a false positive is suspected a serum total bili rocha should be considered if clinically indicated. Urobilinogen UA Normal mg/dL CERNER MILLENN IUM pH UA 5.5 5.0 - 8.0 CERNER MILLENNIUM Blood UA Negative mg/dL CERNER MILLENNIUM Ketones UA Negative mg/dL CERNER MILLENNIUM Nitrite UA Negative CERNER MILLENNIUM Leukocytes UA Negative mcL CERNER MILLENNIU M Appearance UA Clear Clear CERNER MILLENNIU M Spec [place] UA 1.010 1.002 - 1.030 CERNER MIL LENNIUM Color UA Yellow Yellow CERNER MILLENNIUM RBC UA <1 0 - 3 /HPF CERNER MILLENNIUM WBC UA 1 0 - 3 /HPF CERNER MILLENNIUM Squam Epith UA <1 <=4 /HPF CERNER MILLENNI UM Hyaline Cast UA 9 (H) 0 - 2 /LPF CERNER JITENDRA NIUM Specimen Anatomical Collection Method Collection Time Receive d Time (Source) Location / / Volume Laterality Urine specimen 11/30/2013 11:49 4 (specimen) AM EDT 12:26 PM EDT Resulting Agency Comment Spec In Lab Chandra Del Rosario MD URINE ORDERABLES Performing Organization Address City/[facility]/[place] [address] CERNER MILLENNIUM Antibody screen (11/30/2013 11:17 AM EDT) Analysis Performed At Patho logist Time Signature Ab Screen Negative CERNER Interp MILLENNIUM Expires at [id number] CERNER 2358 on: MILLENNIUM Specimen Anatomical Collection Method Collection Time Receive d Time (Source) Location / / Volume Laterality Blood specimen 11/30/2013 11:17 4 (specimen) AM EDT 11:33 AM EDT Resulting Agency Comment Spec In Lab Chandra Del Rosario MD BLOOD BANK ORDERABLES Performing Organization Address City/State/[place] [address] [facility] MILLENNIUM ABO/Rh Typing (11/30/2013 11:17 AM EDT) athologist Signature ABORh Type O Pos CERNER MILLENNIUM Specimen Anatomical Collection Method Collection Time Receive d Time (Source) Location / / Volume Laterality Blood specimen 11/30/2013 11:17 4 (specimen) AM EDT 11:33 AM EDT Resulting Agency Comment Spec In Lab Chandra Del Rosario MD BLOOD BANK ORDERABLES Performing Organization Address City/[facility]/[place] [address] [facility] MILLENNIUM Differential, Automated (11/30/2013 11:17 AM EDT) athologist Signature Neutrophils % 57.6 34.0 - CERNER 71.0 % MILLENNIUM Neutr Abs (ANC) 3.80 1.50 - CERNER 6.30 MILLENNIUM x10(3)/mcL Lymphocytes % 30.3 19.0 - CERNER 53.0 % MILLENNIUM Lymphocytes Abs 2.0 1.0 - 3.6 CERNER x10(3)/mcL MILLENNIUM Monocytes % 11.1 4.0 - 13.0 CERNER % MILLENNIUM Monocyte Abs 0.7 0.2 - 1.0 CERNER x10(3)/mcL MILLENNIUM Eosinophils % 0.0 0.0 - 7.0 CERNER % MILLENNIUM Eosinophils Abs 0.0 0.0 - 0.5 CERNER x10(3)/mcL MILLENNIUM Basophils % 0.8 0.0 - 2.0 CERNER % MILLENNIUM Basophils Abs 0.0 0.0 - 0.2 CERNER x10(3)/mcL MILLENNIUM Immature Gran % 0.20 0.00 - CERNER 0.66 % MILLENNIUM Comment: Immature granulocytes(IG's)percentage an d absolute count will include metamyelocytes, myelocytes, and promyelo cytes. Blood smears from CBCs yielding IG's will be scanned manually for concor danjagruti. If this scan disagrees with the automated IG or if promyelocytes are not ed, a manual differential will be performed. Carolin Gran Abs 0.01 0.00 - 0.05 x10(3)/mcL CER NER MILLENNIUM Specimen Anatomical Collection Method Collection Time Receive d Time (Source) Location / / Volume Laterality Blood specimen 11/30/2013 11:17 4 (specimen) AM EDT 11:58 AM EDT Resulting Agency Comment Spec In Lab Chandra Del Rosario MD HEMATOLOGY ORDERABLES Performing Organization Address City/State/[place] [address] CERNER MILLENNIUM (ABNORMAL) Hemogram (11/30/2013 11:17 AM EDT) P athologist Signature WBC 6.6 4.0 - 10.0 CERNER x10(3)/mcL MILLENNIUM RBC 4.43 (L) 4.63 - CERNER 6.08 MILLENNIUM x10(6)/mcL Hemoglobin 13.4 (L) 13.7 - CERNER 17.5 gm/dL MILLENNIUM Hematocrit 40.5 40.0 - CERNER 51.0 % MILLENNIUM MCV 91.4 79.0 - CERNER 92.0 fL MILLENNIUM MCH 30.2 25.6 - CERNER 32.2 pg MILLENNIUM MCHC 33.1 32.0 - CERNER 36.5 gm/dL MILLENNIUM Platelets 213 145 - 370 CERNER x10(3)/mcL MILLENNIUM RDWSD 44.8 35.0 - CERNER 46.0 fL MILLENNIUM RDWCV 13.6 10.9 - CERNER 14.4 % MILLENNIUM MPV 11.1 9.0 - 12.0 CERNER fL MILLENNIUM Specimen Anatomical Collection Method Collection Time Receive d Time (Source) Location / / Volume Laterality Blood specimen 11/30/2013 11:17 4 (specimen) AM EDT 11:58 AM EDT Resulting Agency Comment Spec In Lab Chandra Del Rosario MD HEMATOLOGY ORDERABLES Performing Organization Address City/[facility]/ZIP [facility] Phon e Number [address] CERNER MILLENNIUM Prothrombin Time (11/30/2013 11:17 AM EDT) P athologist Signature PT 12.1 12.0 - 15.0 CERNER sec MILLENNIUM Comment: [facility] Transfusion Committee Guidelines: I NR less than 2.0, PTT less than OR equal to 43.5 seconds, or Fibrinogen gre ater than or equal to 100 mg/dl indicate adequate procoagulant activity for hemostasis in patients without underlying bleeding disorders. INR 0.9 0.9 - 1.1 CERNER MILLENNIUM Specimen Anatomical Collection Method Collection Time Receive d Time (Source) Location / / Volume Laterality Blood specimen 11/30/2013 11:17 4 (specimen) AM EDT 11:58 AM EDT Resulting Agency Comment Spec In Lab Chandra Del Rosario MD HEMATOLOGY ORDERABLES Performing Organization Address City/[facility]/ZIP Code Phon e Number [address] CERNER MILLENNIUM (ABNORMAL) Basic Metabolic Panel (non-fasting) (11/30/2013 11:17 AM EDT) P athologist Signature Glucose Lvl 128 60 - 199 CERNER mg/dL MILLENNIUM Comment: Diabetes: >=200 mg/dL plus symp toms BUN 28 (H) 10 - 20 mg/dL CERNER MILLENNIU M Creatinine 1.16 0.80 - 1.50 mg/dL CERNER MILL ENNIUM Comment: Please note that the pediatric reference intervals supplied above were not validated at [facility]. Results from pediatri c patients should be interpreted in conjunction to the patient's age, height and muscle mass. Sodium 140 135 - 145 mmol/L CERNER JITENDRA NIUM Potassium 3.5 3.5 - 5.0 mmol/L CERNER JITENDRA NIUM Comment: Please note: ??Patients with WBC >100,00 0 may have falsely elevated Potassium levels. ??For accurate Potassium quantif ication in these patients send serum separator tube (gold top) for subsequent determinations. ??Contact the Clinical Chemistry Laboratory if there are any qu estions. Chloride 100 98 - 107 mmol/L CERNER MILLENN IUM CO2 28 22 - 31 mmol/L CERNER MILLENNI UM Anion Gap 12 5 - 15 mmol/L CERNER MILLENNIU M Calcium 9.2 8.5 - 10.5 mg/dL CERNER JITENDRA NIUM [...] Location / / Volume Laterality Blood specimen 11/30/2013 11:17 4 (specimen) AM EDT 11:58 AM EDT Resulting Agency Comment Spec In Lab Chandra Del Rosario MD CHEMISTRY ORDERABLES Performing Organization Address City/State/[place] [address] [facility] documented in this encounter Visit Diagnoses Diagnosis DJD (degenerative joint disease) of knee - Primary Osteoarthrosis, unspecified whether gene ralized or localized, lower leg Encounter for long-term (current) use of other medications Osteoarthritis of knee Osteoarthrosis, unspecified whether gene ralized or localized, lower leg Pain in limb Debility, unspecified documented in this encounter Care Teams Crutching Contractor Relationship Specialty Start Date End Date Candace Avery APRN PCP - General 04/03/11 01/17/15 [facility] [address] [place] [address] documented as of this encounter
--- OUTSIDE RECORDS SUMMARY | 2022-01-28 01:21 | XMS_ITS | Encounter Summary ---
:1945 Author Organization [facility] Address [facility] [place] [address] Care Team Providers Name Role Phone Candace Avery APRN Primary Care Provider Encounter Details Date Type Department Care Team Description 10/11/2013 Orders Only Orthopaedics at [facility] Paulina Rajput, Encounter for long-term (cur rent) use of other medications (Primary Dx); [facility] RN Osteoarth ritis of knee; Drive Pain in limb; [place] [address] Debility, unspecified [phone] Social History Tobacco Use Types Packs/Day Years Used Date Never Smoker Smokeless Tobacco: Never Used Alcohol Use Standard Drinks/Week Comments No 0 (1 standard drink = 0.6 oz pure alcoho l) Sex Assigned at Date Recorded Not on file documented as of this encounter Plan of Treatment Upcoming Encounters Date Type Specialty Care Team Description 03/12/2022 Appointment Cardiology Diane Garcia APRN [facility] CARDIOLOGY [place], [place] [address] (Wo rk) documented as of this encounter Results Urine culture Clean Catch Urine (11/30/2013 11:49 AM EDT) [facility] Method Time Signature Urine Culture CERNER ? Patient Name: LISA ROMO ? Ordered By: CHANDRA DEL ROSARIO [facility] ? MR#: [id number] ?LOC: ??3D ? /Sex: ??1945 (68 years), [...] GENERAL ORDER MARY ALICE Performing Organization Address City/State/[place] [address] CERNER MILLENNIUM (ABNORMAL) Urinalysis with microscopic (11/30/2013 11:49 AM EDT) [facility] Method Time Signature Glucose UA Negative Negative [...] IUM pH UA 5.5 5.0 - 8.0 [facility] Blood UA Negative mg/dL [facility] Ketones UA Negative mg/dL [facility] Nitrite UA Negative [facility] Leukocytes UA Negative mcL [facility] M Appearance UA Clear Clear [facility] M Spec [place] UA 1.010 1.002 - 1.030 [facility] MIL LENNIUM Color UA Yellow Yellow [facility] RBC UA <1 0 - 3 /HPF [facility] WBC UA 1 0 - 3 /HPF [facility] Squam Epith UA <1 <=4 /HPF [facility] UM Hyaline Cast UA 9 (H) 0 - 2 /LPF [facility] NIUM Specimen Anatomical Collection Method Collection Time Receive d Time (Source) Location / / Volume Laterality Urine specimen 11/30/2013 11:49 4 (specimen) AM EDT 12:26 PM EDT Resulting Agency Comment Spec In Lab Chandra Del Rosario MD URINE ORDERABLES Performing Organization Address City/[facility]/ZIP Code Phon e Number [address] [facility] Prothrombin Time (11/30/2013 11:17 AM EDT) athologist Signature PT 12.1 12.0 - 15.0 [facility] Comment: [facility] Transfusion Committee Guidelines: I NR less than 2.0, PTT less than OR equal to 43.5 seconds, or Fibrinogen gre ater than or equal to 100 mg/dl indicate adequate procoagulant activity for hemostasis in patients without underlying bleeding disorders. INR 0.9 0.9 - 1.1 [facility] Specimen Anatomical Collection Method Collection Time Receive d Time (Source) Location / / Volume Laterality Blood specimen 11/30/2013 11:17 4 (specimen) AM EDT 11:58 AM EDT Resulting Agency Comment Spec In Lab Chandra Del Rosario MD HEMATOLOGY ORDERABLES Performing Organization Address City/[facility]/ZIP Code Phon e Number [address] [facility] (ABNORMAL) Basic Metabolic Panel (non-fasting) (11/30/2013 11:17 AM EDT) athologist Signature Glucose Lvl 128 60 - 199 CERNER mg/dL MILLENNIUM Comment: Diabetes: >=200 mg/dL plus symp toms BUN 28 (H) 10 - 20 mg/dL CERNER MILLENNIU M Creatinine 1.16 0.80 - 1.50 mg/dL CERNER MILL ENNIUM Comment: Please note that the pediatric reference intervals supplied above were not validated at [facility]. Results from pediatri c patients should be [...] Organization Address City/State/[place] [address] [facility] documented in this encounter Visit Diagnoses Diagnosis Encounter for long-term (current) use of other medications - Primary Osteoarthritis of knee Osteoarthrosis, unspecified whether gene ralized or localized, lower leg Pain in limb Debility, unspecified documented in this encounter Care Teams Technical Adjuster Relationship Specialty Start Date End Date Candace Avery APRN PCP - General 04/03/11 01/17/15 [facility] [address] [place] [address] documented as of this encounter
--- OUTSIDE RECORDS SUMMARY | 2022-01-28 01:21 | XMS_ITS | Encounter Summary ---
:1945 Author Organization [facility] Address [facility] [place] [address] Care Team Providers Name Role Phone Candace Avery MELISSA Primary Care Provider Encounter Details Date Type Department Care Team Description 11/24/2013 Orders Only Orthopaedics at [facility] Paulina Rajput, Right knee pain [facility] Mariela hirsch RN (Primary Dx) [place] [address] Social History Tobacco Use Types Packs/Day Years Used Date Never Smoker Smokeless Tobacco: Never Used Alcohol Use Standard Drinks/Week Comments No 0 (1 standard drink = 0.6 oz pure alcoho l) Sex Assigned at Date Recorded Not on file documented as of this encounter Plan of Treatment Upcoming Encounters Date Type Specialty Care Team Description 03/12/2022 Appointment Cardiology Diane Garcia APRN [facility] CARDIOLOGY [place], [place] [address] (Wo rk) documented as of this encounter Results XR Joint Team alignment AP LAT [place] (11/30/2013 2:25 PM EDT) Anatomical Region Laterality Modality N/A Radiographic Imaging Specimen (Source) Anatomical Collection Method Collection Time Re ceived Time Location / / Volume Laterality 11/30/2013 2:25 PM EDT Narrative 11/30/2013 4:50 PM EDT Examination JOINT TEAM STANDING ALIGNMENT AP LAT [place]/RIGHT Clinical History right knee pain [...] Examination JOINT TEAM STANDING ALIGNMENT AP LAT [place]/RIGHT Clinical History right knee pain [...] leg documented in this encounter Care Teams Make Up Man Relationship Specialty Start Date End Date Candace Avery, HOUSEKEEPING AND LAUNDRY TEAM LEADER PCP - General 04/03/11 01/17/15 [facility] [address] [place] [address] documented as of this encounter
--- OUTSIDE RECORDS SUMMARY | 2022-01-28 01:21 | XMS_ITS | Encounter Summary ---
:1945 Author Organization [facility] [place] [address] Care Team Providers Name Role Phone Candace Avery APRN Primary Care Provider Reason for Visit Reason Comments Coronary Artery Disease Encounter Details Date Type Department Care Team Description 08/10/2012 Follow-Up Cardiology [place] [facility] [place] H[place] Marino, Myocardial infarction, old; [facility] Hypertension; [facility] Lipid disorder; [place] [address] [address] ROBERTSON (coronary artery disease) [phone] CARDIOLOGY DEPT. [place], [place] [address] (Wo rk) Social History Tobacco Use Types Packs/Day Years Used Date Never Smoker Smokeless Tobacco: Never Used Alcohol Use Standard Drinks/Week Comments No 0 (1 standard drink = 0.6 oz pure alcoho l) Sex Assigned at Date Recorded Not on file documented as of this encounter Last Filed Vital Signs Vital Sign Reading Time Taken Comments Blood Pressure 120/70 08/10/2012 8:28 AM EST Pulse 56 08/10/2012 8:28 AM EST Temperature - - Respiratory Rate 16 08/10/2012 8:28 AM EST Oxygen Saturation 97% 08/10/2012 8:28 AM EST Inhaled Oxygen Concentration - - Weight 110.7 kg (244 lb) 08/10/2012 8:28 AM EST Height 174.6 cm (5' 8.75) 08/10/2012 8:28 AM EST Body Mass Index 36.3 08/10/2012 8:28 AM EST documented in this encounter Progress Notes Hima Marino MD - 08/10/2012 8:55 AM EST Cardiology Clinic Note History: Corona Romo is a 67 y.o. male presenting for routine office follow up of cardiovascular problems. The patient states that he is having more difficulty with his right knee from DJD and he has been seen by Dr. Del Rosario for TKR planning. One goal of his visit with me today is for preoperative cardiac assessment. The patient states that his blood pressure has been labile in the past month to six weeks and that prompted several adjustments of his medications. He had lightheadedness and some fatigue as the main symptom when his systolic nella to around 200mmHg before coming under better control in the past couple of weeks. He had a syncopal event when the hypertension was poorly controlled. He went to [facility] to assess that event and he was discharged to home. He has been losing weight but states that his appetite is fair. Other than some discoloration of thestools from his chronic anemia with iron replacement. He denies abdominal pain, fever, dysuria. He likewise has not had angina, PND, orthopnea. Meds as below now include clonidine. He is using his CPAP mask nightly. He reports being able to climb a set of stairs if he takes his time and hangs on to the railing. Allergies as of 08/10/2012 ??? (No Known Allergies) Current Outpatient Rx Name Route Sig Dispense Refill ??? CLONIDINE 0.1 MG ORAL TAB Oral Take 0.1 mg by mouth nightly. ??? NEBIVOLOL 10 MG ORAL TAB Oral Take 1 tablet by mouth daily. ??? FERROUS SULFATE 325 MG (65 MG IRON) ORAL TBEC Oral Take 325 mg by mouth 2 times daily. ??? LOSARTAN 100 MG ORAL TAB Oral Take 100 mg by mouth daily. ??? FUROSEMIDE 80 MG ORAL TAB Oral Take 80 mg by mouth 2 times daily. ??? POTASSIUM CHLORIDE 20 MEQ ORAL TBTQ Oral Take 20 mEq by mouth 2 times daily. ??? ATORVASTATIN 40 MG ORAL TAB Oral Take 40 mg by mouth daily. ??? METFORMIN 500 MG ORAL TAB Oral Take 1,000 mg by mouth 2 times daily (with meals). ??? BUPROPION HCL 150 MG ORAL TBSR Oral Take 150 mg by mouth 2 times daily. ??? ALBUTEROL SULFATE 90 MCG/ACTUATION INHL HFAA Inhalation Inhale 2 puffs into the lungs every 4 hours as needed. Use with spacer ??? ASPIRIN 325 MG ORAL TAB Oral << Patient Not Taking >> ??? PENICILLIN V POTASSIUM 500 MG ORAL TAB Oral 500mg, PO, BID Physical Exam: Blood pressure 120/70, pulse 56, resp. rate 16, height 174.6 cm (5' 8.75), weight 110.678 kg (244 lb), SpO2 97.00%. General: Obese, older man, appearing comfortable at rest HEENT: Eyes: No conjunctival pallor Neck: No JVD, carotid bruits or lymphadenopathy Lungs: Clear to A+P Cor: RR, normal S1, S2. PMI not displaced. No murmur or gallop Abd: soft, no L/S/K enlargement or bruits Ext: Pulses preserved, no edema, cyanosis or clubbing Neuro: physiologic Skin: Without rash or icterus Lab data: Blood work reviewed on scanned documents from 06/14/12 and 06/25/12 included CBC, BMP and LFTs;. All of the studies were normal and his lipid panel was at secondary prevention levels. ECG today is unremarkable Cardiovascular Problem list and Plan of care: 1. CAD, branch lesion in diagonal by cath in 1998, stable 2. Hypertension, idiopathic, improved 3. Lipid disorder, on statin I talked with the patient about his remote ND and the apparently stable CAD by symptoms. His inactivity related to the obesity and DJD warrants another pharmacologic stress study in advance of the potential TKR. I described the rationale for ordering the pharmacologic stress test and how we profile ind ividuals with known CAD prior to elective noncardiac surgical procedures. i also reviewed the lab studies obtained in June with him and his . His BP today is good but he still is experiencing some orthostatic symptoms. I cautioned him about his positional changes and how to minimize falling risk. If dry mouth or fatigue becomes an issue withthe clonidine, the dose could be reduced to 0.1mg hs only. I reviewed the active treatment and ongoing surveillance for the cardiovascular problems as appropriate. I addressed the patient's questions. Non-Cardiac Problems: 1, DM, Type II 2. Morbid obesity 3. Obstructive sleep apnea, on CPAP daily 4. DJD Cardiology follow up scheduled for: 1 year or sooner depending on the stress test results. 20 minutes of this 30 minute visit was spent in face to face discussion with the patient regarding the diagnoses in the assessment and plan of care. documented in this encounter Plan of Treatment Upcoming Encounters Date Type Specialty Care Team Description 03/12/2022 Appointment Cardiology Diane Garcia APRN [facility] CARDIOLOGY [place], [place] [address] (Wo rk) documented as of this encounter Procedures Procedure Name Priority Date/Time Associated Diagnosis Comme nts EKG 12-LEAD Routine 08/10/2012 9:31 AM CAD (coronary artery R esults for this EST disease) procedure are i n the results section . documented in this encounter Results EKG 12 Lead (08/10/2012 9:31 AM EST) Component Value Ref Range Test Analysis Performed Pathologis t Method Time At Signature Ventricular rate 61 BPM MUSE SYSTEM Atrial Rate 61 BPM MUSE SYSTEM P-R Interval 140 ms MUSE SYSTEM QRS Duration 102 ms MUSE SYSTEM Q-T Interval 438 ms MUSE SYSTEM QTC Calculated 440 ms MUSE SYSTEM (Bezet) Calculated P [place] 66 degrees MUSE SYSTEM Calculated R [place] -9 degrees MUSE SYSTEM Calculated T [place] -7 degrees MUSE SYSTEM INTERPRETATION Normal sinus rhythm MUSE SYSTEM Normal ECG When compared with ECG of 01-JUN-2012 15:27, No significant change was found Confirmed by MD RENAY, BARBARA ([id number]) on 08/11/2012 9:20:34 AM Specimen Anatomical Collection Method Collection Time Receive d Time (Source) Location / / Volume Laterality 08/10/2012 9:31 AM 3 9:20 EST AM EST Hima Marino MD ECG ORDERABLES Performing Organization Address City/State/ZIP Code Phon e Number MUSE SYSTEM documented in this encounter Visit Diagnoses Diagnosis Myocardial infarction, old Old myocardial infarction Hypertension Unspecified essential hypertension Lipid disorder Unspecified disorder of lipoid metabolis m CAD (coronary artery disease) Coronary atherosclerosis of unspecified type of vessel, [place] or graft documented in this encounter Care Teams Production Team Member Relationship Specialty Start Date End Date Candace Avery APRN PCP - General 04/03/11 01/17/15 [address] [address] [place] [address] documented as of this encounter
--- OUTSIDE RECORDS SUMMARY | 2022-01-28 01:21 | XMS_ITS | Encounter Summary ---
:1945 Author Organization [facility] [place] [address] Care Team Providers Name Role Phone Candace Avery APRN Primary Care Provider Reason for Visit Reason Onset Date Comments Medical Care Coordination 08/05/2012 Encounter Details Date Type Department Care Team Description 08/05/2012 Telephone Orthopaedics at [facility] [place] Pb Schroeder, Medical Care [facility] [address] [address] [address] [phone] [place] [id number] (Wo rk) Social History Tobacco Use Types Packs/Day Years Used Date Never Smoker Smokeless Tobacco: Never Used Alcohol Use Standard Drinks/Week Comments No 0 (1 standard drink = 0.6 oz pure alcoho l) Sex Assigned at Date Recorded Not on file documented as of this encounter Miscellaneous Notes Telephone Encounter - Pb Schroeder PA - 08/11/2012 8:33 AM EST I talked to Candace Soto the patient's PCP in regards to the patient's report weight loss. Her PCP reports that he has actually lost 35 pounds over the past year. She has been evaluating him forthis loss and under has undergone several screening test which have been negative. She will be sending her evaluation and results of these tests to the clinic. Telephone Encounter - Pb Schroeder PA - 08/05/2012 12:13 PM EST I called Candace ZUÑIGA the patient's PCP, she was not in the office and a message was left. Wediscussed that the patient reported a 60 pound weight loss over the past 6 weeks and prior to proceeding with knee replacement surgery this would need to be evaluated and received preoperative clearance from her. I last Candace to call us if she has any questions. documented in this encounter Plan of Treatment Upcoming Encounters Date Type Specialty Care Team Description 03/12/2022 Appointment Cardiology Diane Garcia APRN [facility] [address] [place], [place] [address] (Wo rk) documented as of this encounter Visit Diagnoses Not on filedocumented in this encounter Care Teams Structures Mechanic Relationship Specialty Start Date End Date Candace Avery, PROGRAM REVIEW DIRECTOR PCP - General 04/03/11 01/17/15 [address] [address] [facility] [place] [address] documented as of this encounter
--- OUTSIDE RECORDS SUMMARY | 2022-01-28 01:21 | XMS_ITS | Encounter Summary ---
:1945 Author Organization [facility] [place] [address] Care Team Providers Name Role Phone Felipe Tripp MD Primary Care Provider Encounter Details Date Type Department Care Team Description 08/06/2010 Follow-Up Nephrology Hypertension at Dax Miner MD [facility] Mariela h[facility]sch [place] [address] [place] [address] [phone] (Wo rk) Social History Tobacco Use Types Packs/Day Years Used Date Never Assessed Sex Assigned at Date Recorded Not on file documented as of this encounter Plan of Treatment Upcoming Encounters Date Type Specialty Care Team Description 03/12/2022 Appointment Cardiology Diane Garcia APRN [facility] CARDIOLOGY [place], [place] [address] (Wo rk) documented as of this encounter Visit Diagnoses Not on filedocumented in this encounter Care Teams Acid Maker Relationship Specialty Start Date End Date Felipe Tripp MD PCP - General 06/03/10 04/02/11 documented as of this encounter
--- OUTSIDE RECORDS SUMMARY | 2022-01-28 01:21 | XMS_ITS | Encounter Summary ---
:1945 Author Organization [facility] Address [address] [place] [address] Care Team Providers Name Role Phone Bennie Candace Blanc APRN Primary Care Provider Encounter Details Date Type Department Care Team Description 08/04/2012 Hospital Encounter XRay at [facility] [place] Right knee pain [address] [place] [phone] Social History Tobacco Use Types Packs/Day [...] Garcia, MELISSA [facility] [place], [place] [address] (Wo rk) documented as of this encounter Procedures Procedure Name Priority Date/Time Associated Comments Diagnosis XR KNEE DIAGNOSTIC 1 Routine 08/04/2012 1:25 PM Right knee sheridan n Results for this OR 2 VIEW EST procedure are i n the results [...] leg documented in this encounter Care Teams Linseed Oil Boiler Relationship Specialty Start Date End Date Candace Avery, BEEF SPLITTER PCP - General 04/03/11 01/17/15 [facility] [address] [place] [address] documented as of this encounter
--- OUTSIDE RECORDS SUMMARY | 2022-01-28 01:21 | XMS_ITS | Encounter Summary ---
:1945 Author Organization [facility] Address [address] [place] [address] Care Team Providers Name Role Phone DaveFavian quinoneschaitanya Blanc APRN Primary Care Provider Encounter Details Date Type Department Care Team Description 05/14/2011 Hospital En[place] [facility] [place] (total knee [address] [place] [address] Dr replacement) [place] [address] Social History Tobacco Use Types Packs/Day Years Used Date Never Smoker Smokeless Tobacco: Never Used Alcohol Use Standard Drinks/Week Comments No 0 (1 standard drink = 0.6 oz pure alcoho l) Sex Assigned at Date Recorded Not on file documented as of this encounter Medications at Time of Discharge Medication Sig Dispensed Refills Start Date End Date albuterol (PROVENTIL Inhale 2 puffs into 0 HFA;VENTOLIN HFA) 90 the lungs every 4 mcg/Actuation inhaler hours as needed. Use with spacer penicillin v potassium 500mg, PO, BID 0 1 (VEETID) 500 mg tablet aspirin 325 mg tablet 0 08/06/201011/2013 pioglitazone (ACTOS) 15 mg 0 1 06/01/2012 tablet documented as of this encounter Plan of Treatment Upcoming Encounters Date Type Specialty Care Team Description 03/12/2022 Appointment Cardiology Diane Garcia APRN [facility] [address] CARDIOLOGY [place], [place] [address] (Wo rk) documented as of this encounter Procedures Procedure Name Priority Date/Time Associated Diagnosis Comme nts XR KNEE AP AND LAT Routine 05/14/2011 1:27 PM Knee joint Res ults for this BILAT EDT replacement by other procedu re are in means the results section. documented in this encounter Results XR KNEE BILATERAL1 OR 2 VIEW (05/14/2011 1:27 PM EDT) Anatomical Region Laterality Modality Knee Bilateral Radiographic Imaging Specimen (Source) Anatomical Collection Method Collection Time Re ceived Time Location / / Volume Laterality 05/14/2011 1:27 PM EDT Narrative 05/14/2011 4:29 PM EDT KNEE, BILATERAL, 05/14/11: ?? HISTORY: ??Status post left total knee, right knee pain, DJD. TECHNIQUE: ??An AP standing view of both knees and lateral views of each knee are compared to a prior knee series of 0 12/28/08 and of 11/23/07. ?? FINDINGS: ??The patient has a left total knee. ??The right knee shows marked degenerative change with medial compartm ent narrowing and osteophyte formation. ?? There is a large joint effusion. ??These changes were present on the prior exam. ?? On the left knee, patient has a total kn ee arthroplasty. ??There is focal calcification above the prosthesis along the volar surface of the distal femur. ?? This has been seen on multiple prior exa ms and has the appearance of a hook-like projection. ??This is not pres ent preoperatively. ??On the first postoperative film of 10/14/05 there is amorphous dystrophic calcification in that location. ??On subsequent images it takes on a more well-defined and bony appearance, as well as the appearance of a hook-like configuration. ??There has been lucency seen along the margins of t he bone adjacent to the prosthesis from 09/14/06 to the present. ??This does not appear worse. ??It appears stable relative to the prior exam. ??Overall, t he appearance of the prosthesis is stable relative to prior. Procedure Note Cecy Fairbanks MD - 05/14/2011Form atting of this note might be different from the original. KNEE, BILATERAL, 05/14/11: HISTORY: Status post left total knee, ri ght knee pain, DJD. TECHNIQUE: An AP standing view of both k nees and lateral views of each knee are compared to a prior knee series of 0 12/28/08 and of 11/23/07. FINDINGS: The patient has a left total k nee. The right knee shows marked degenerative change with medial compartm ent narrowing and osteophyte formation. There is a large joint effusion. These c hanges were present on the prior exam. On the left knee, patient has a total kn ee arthroplasty. There is focal calcification above the prosthesis along the volar surface of the distal femur. This has been seen on multiple prior exa ms and has the appearance of a hook-like projection. This is not presen t preoperatively. On the first postoperative film of 10/14/05 there is amorphous dystrophic calcification in that location. On subsequent images it t akes on a more well-defined and bony appearance, as well as the appearance of a hook-like configuration. There has been lucency seen along the margins of t he bone adjacent to the prosthesis from 09/14/06 to the present. This does not a ppear worse. It appears stable relative to the prior exam. Overall, the appearance of the prosthesis is stable relative to prior. Chandra Del Rosario MD IMG DX ORDERABLES documented in this encounter Visit Diagnoses Diagnosis S/P TKR (total knee replacement) Knee joint replacement by other means documented in this encounter Care Teams Associate Curator Relationship Specialty Start Date End Date Candace Avery, MELISSA PCP - General 04/03/11 01/17/15 CAR[facility] [address] [place] [address] documented as of this encounter
--- OUTSIDE RECORDS SUMMARY | 2022-01-28 01:21 | XMS_ITS | Encounter Summary ---
:1945 Author Organization [facility] Address [facility] [address] [address] Care Team Providers Name Role Phone BennieCandace Guanaco TORRES Primary Care Provider Encounter Details Date Type Department Care Team Description 09/09/2012 Hospital Encounter Nuclear Medicine at [facility] DR ROYAL Preop testing (Primary Dx); Hima Hicks MD [facility] [place] [address] CAD (coronary artery disease); [facility] [employer]; [employer] CAD (coronary artery disease ) [place] [id number] Social History Tobacco Use Types Packs/Day Years [...] Team Description 03/12/2022 Appointment Cardiology Diane Garcia, [facility] C[facility] [place], [place] [address] (Wo rk) documented as of this encounter Procedures Procedure Name Priority Date/Time Associated Comments Diagnosis NM PHARMACOLOGIC Routine 09/09/2012 11:06 Unspecified Results for this STRESS AND REST AM EST essential procedure ar e in MYOCARDIAL PERFUSION hypertensio n the results Cor athrscl-uns section. vessel documented in this encounter Results NM myocardial perfusion scan, pharmacologic (09/09/2012 11:06 AM EST) Anatomical Region Laterality Modality Other Specimen (Source) Anatomical Collection Method Collection Time Re ceived Time Location / / Volume Laterality 09/09/2012 11:06 AM EST Narrative 09/09/2012 11:24 AM EST Examination REST AND PHARMACOLOGIC MYOCARDIAL PERFUS ION SCANS, 09/09/12 Clinical History CAD, preop assessment Comparison Report for rest and exercise stress myoc ardial perfusion scans dated 12/23/2004; images are not available for direct comparison. Technique During rest, 11.6 mCi of technetium-99m sestamibi were administered intravenously. Approximately 15 minutes later, SPECT images of the heart were obtained with reconstruction in the shor t, vertical long and horizontal long axes. The patient then received regadenoson in travenously at a dose of 0.4mg. Twenty seconds later, 40.3 mCi of technetium-99 m sestamibi were administered intravenously. Images of the heart were then again obtained with SPECT reconstruction. A low dose CT scan was acquired for the purpose of attenuation correction. Findings The post pharmacologic and rest images d emonstrate no reversible or fixed perfusion defects. ??LV cavity size is w ithin normal limits. ??The gated study shows normal left ventricular wall thick ening and wall motion. ??The estimated left ventricular ejection fraction is 58 %, as compared to the reported 63% on the prior 2004 study. Impression No evidence of ischemia or scar. ??Odilia l left ventricular function with an estimated LVEF of 58%. Procedure Note Paris Peacock MD - 09/09/2012Formatt ing of this note might be different from the original. Examination REST AND PHARMACOLOGIC MYOCARDIAL PERFUS ION SCANS, 09/09/12 Clinical History CAD, preop assessment Comparison Report for rest and exercise stress myoc ardial perfusion scans dated 12/23/2004; images are not available for direct comparison. Technique During rest, 11.6 mCi of technetium-99m sestamibi were administered intravenously. Approximately 15 minutes later, SPECT images of the heart were obtained with reconstruction in the shor t, vertical long and horizontal long axes. The patient then received regadenoson in travenously at a dose of 0.4mg. Twenty seconds later, 40.3 mCi of technetium-99 m sestamibi were administered intravenously. Images of the heart were then again obtained with SPECT reconstruction. A low dose CT scan was acquired for the purpose of attenuation correction. Findings The post pharmacologic and rest images d emonstrate no reversible or fixed perfusion defects. LV cavity size is wit hin normal limits. The gated study shows normal left ventricular wall thick ening and wall motion. The estimated left ventricular ejection fraction is 58 %, as compared to the reported 63% on the prior 2004 study. Impression No evidence of ischemia or scar. Normal left ventricular function with an estimated LVEF of 58%. Hima Marino MD IM NM ORDERABLES documented in this encounter Visit Diagnoses Diagnosis Preop testing - Primary Preoperative examination, unspecified CAD (coronary artery disease) Coronary atherosclerosis of unspecified type of vessel, point lay ira or graft Hypertension Unspecified essential hypertension documented in this encounter Administered Medications Inactive Administered Medications - up to 3 most recent administrations Medication Order MAR Action Action Date Dose Rate Site regadenoson (LEXISCAN) injection Given 09/09/2012 10:30 AM EST 0 .4 mg 0.4 mg 0.4 mg, Intravenous, ONCE, 1 dose, On Wed09/09/12 at 1100, Routine documented in this encounter Care Teams Extrusion Technician Relationship Specialty Start Date End Date Candace Avery APRN PCP - General 04/03/11 01/17/15 CAROLYN [address] [place] [address] documented as of this encounter
--- OUTSIDE RECORDS SUMMARY | 2022-01-28 01:21 | XMS_ITS | Encounter Summary ---
:1945 [address] [facility] [place] [address] Care Team Providers Name Role Phone BennieDaliaCandace W GOLD LEAF LAYER Primary Care Provider Encounter Details Date Type Department Care Team Description 10/02/2013 Ancillary Vascular Surgery at Arik Forrester hritis of right knee; Appointment [facility] [place] W, RVT History of total knee [place], [place] [id number] Social History Tobacco Use Types Packs/Day Years Used Date Never Smoker Smokeless Tobacco: Never Used Alcohol Use Standard Drinks/Week Comments No 0 (1 standard drink = 0.6 oz pure alcoho l) Sex Assigned at Date Recorded Not on file documented as of this encounter Plan of Treatment Upcoming Encounters Date Type Specialty Care Team Description 03/12/2022 Appointment Cardiology Diane Garcia, MELISSA [facility] CARDIOLOGY [place], [place] [address] (Wo rk) documented as of this encounter Procedures Procedure Name Priority Date/Time Associated Diagnosis Comme nts LINDA, LEGS, Routine 10/02/2013 1:38 PM Osteoarthritis of righ t Results for this MULTIPLE LEVELS EDT knee procedure are in History of total knee the re sults arthroplasty, left section. documented in this encounter Results LINDA, legs, multiple levels (10/02/2013 1:38 PM EDT) Component Value Ref Test Analysis Performed At [facility] Range Method Time Signature VB Text VASCUBASE Report Department: Vascular Surgery Lab Patient: [id number] (LISA ROMO) CPT Code: 30104 ICD-9: 440.20 Referring Physician: JUAN JOSE GARZA [...] 1.12 ??Bi-Triphasic ? Posterior Tibial (Ankle) Art jrery ??191 ? 1.22 ??Triphasic ? Great Toe [...] previous study in our vascular lab [place] for comparison. Electronically Signed by: MICH BLANCO [...] left documented in this encounter Care Teams Ammonium Hydroxide Operator Relationship Specialty Start Date End Date Candace Avery, MELISSA PCP - General 04/03/11 01/17/15 CAROLYN [address] [place] [address] documented as of this encounter
--- OUTSIDE RECORDS SUMMARY | 2022-01-28 01:21 | XMS_ITS | Encounter Summary ---
:1945 Author Organization [facility] [place] [address] Care Team Providers Name Role Phone Bennie Candace Blanc APRN Primary Care Provider Reason for Visit Reason Comments Coronary Artery Disease follow up of CV issues Encounter Details Date Type Department Care Team Description 06/01/2012 [place]Up [place]iology [place] [facility] Hima Marino, CAD (coronary artery disease ) (Primary Dx); [facility] Hypertension; [facility] Lipid disorder; [place] [address] Myocardial infarction, old [phone] CARD[address]PT. [place] [address] (Wo rk) Social History Tobacco Use Types Packs/Day Years Used Date Never Smoker Smokeless Tobacco: Never Used Alcohol Use Standard Drinks/Week Comments No 0 (1 standard drink = 0.6 oz pure alcoho l) Sex Assigned at Date Recorded Not on file documented as of this encounter Last Filed Vital Signs Vital Sign Reading Time Taken Comments Blood Pressure 168/68 06/01/2012 3:08 PM EST Pulse 74 06/01/2012 3:08 PM EST irregular Temperature - - Respiratory Rate - - Oxygen Saturation 97% 06/01/2012 3:08 PM EST RA Inhaled Oxygen Concentration - - Weight 126.6 kg (279 lb) 06/01/2012 3:08 PM EST Height 175.3 cm (5' 9) 06/01/2012 3:08 PM EST Body Mass Index 41.2 06/01/2012 3:08 PM EST documented in this encounter Progress Notes Hima Marino MD - 06/01/2012 3:51 PM EST Cardiology Clinic Note History: Corona Romo is a 67 y.o. male presenting for routine office follow up of cardiovascular problems. I have not seen this man for over two years. The patient states that he is having more difficulty with his right knee from DJD and instability, hoping that he will have a TKR as was done in the remote past on the left. He states that he had a bout of congestion on his lungs last winter and this seemed to respond to a course of antibiotics. He denies chest pain or pressure, PND, orthopnea, presyncope or syncope. Meds as below. He is using his CPAP mask nightly but his does comment that he dreams and is sometimes agitatedduring the dreams. Allergies as of 06/01/2012 ??? (No Known Allergies) Current Outpatient Rx Name Route Sig Dispense Refill ??? MINOXIDIL 10 MG ORAL TAB Oral Take 20 mg by mouth 2 times daily. ??? NEBIVOLOL 10 MG ORAL TAB Oral [...] mg by mouth 2 times daily. ??? ASPIRIN 325 MG ORAL TAB Oral << Patient Not Taking >> ??? PENICILLIN V POTASSIUM 500 MG ORAL TAB Oral 500mg, PO, BID ??? ALBUTEROL SULFATE 90 MCG/ACTUATION INHL HFAA Inhalation Inhale 2 puffs into the lungs every 4 hours as needed. Use with spacer ??? ACTOS 15 MG ORAL TAB Oral Physical Exam: Blood pressure 168/68, pulse 74, height 175.3 cm (5' 9), weight 126.554 kg (279 lb), SpO2 97.00%. General: Obese, older man, appearing comfortable at rest HEENT: Eyes: No conjunctival pallor Neck: No JVD, carotid bruits or lymphadenopathy Lungs: Clear to A+P Cor: RR, normal S1, S2. PMI not displaced. No murmur or gallop Abd: soft, no L/S/K enlargement or bruits Ext: Pulses preserved, no edema, cyanosis or clubbing Neuro: physiologic Skin: Without rash or icterus Lab data: lipid panel and other labs checked by Dr. Avery. ECG today shows NSR, PACs, minor T abn. Cardiovascular Problem list and Plan of care: 1. CAD, branch lesion in diagonal by cath in 1998, stable 2. Hypertension, idiopathic, obesity aggrivated, improved 3. Lipid disorder, on statin I talked with the patient about his remote CO and the apparently stable CAD by symptoms. His inactivity related to the obesity and DJD warrants another pharmacologic stress study in advance of the potential TKR. I will wait to order this until it is clear that he is being offered the operation. I discussed the cardiovascular risks in the setting of a moderate surgical stress such as TKR. His BP needs further management and he informs me that this is being addressed by his PCP. Clearly, weight loss would help him considerably but this seems unlikely to occur given his long-standing weight pattern. I reviewed the active treatment and ongoing surveillance for the cardiovascular problems as appropriate. I addressed the patient's questions. Non-Cardiac Problems: 1, DM, Type II 2. Morbid obesity 3. Obstructive sleep apnea, on CPAP daily 4. DJD Cardiology follow up scheduled for: 1 year 20 minutes of this 25 minute visit was spent in face to face discussion with the patient regarding the diagnoses in the assessment and plan of care. documented in this encounter Plan of Treatment Upcoming Encounters Date Type Specialty Care Team Description 03/12/2022 Appointment Cardiology Diane Garcia, QUALITY ASSURANCE TEST PROGRAM MANAGER [facility] [address] [place], [place] [address] (Wo rk) documented as of this encounter Procedures Procedure Name Priority Date/Time Associated Diagnosis Comme nts EKG 12-LEAD Routine 06/01/2012 3:27 PM CAD (coronary artery R esults for this EST disease) procedure are i n the results section . documented in this encounter Results EKG 12 Lead (06/01/2012 3:27 PM EST) Component Value Ref Range Test Analysis Performed Pathologis t Method Time At Signature Ventricular rate 69 BPM MUSE SYSTEM Atrial Rate 69 BPM MUSE SYSTEM P-R Interval 156 ms MUSE SYSTEM QRS Duration 76 ms MUSE SYSTEM Q-T Interval 396 ms MUSE SYSTEM QTC Calculated 424 ms MUSE SYSTEM (Bezet) Calculated P [place] 86 degrees MUSE SYSTEM Calculated R [place] -32 degrees MUSE SYSTEM Calculated T [place] -32 degrees MUSE SYSTEM INTERPRETATION Sinus rhythm with Premature atrial complexes MUSE SYSTEM Left axis deviation Nonspecific ST abnormality Abnormal ECG When compared with ECG of 15-JAN-2010 10:05, Premature atrial complexes are now Present ST now depressed in Inferior leads Inverted T waves have replac ed nonspecific T wave abnormality in Inferior leads Confirmed by MD Chanel, Ishan ([id number]) on 06/02/2012 12:24: 04 PM Specimen Anatomical Collection Method Collection Time Receive d Time (Source) Location / / Volume Laterality 06/01/2012 3:27 PM 2 EST 12:24 PM EST Hima Marino MD ECG ORDERABLES Performing Organization Address City/State/ZIP Code Phon e Number MUSE SYSTEM documented in this encounter Visit Diagnoses Diagnosis CAD (coronary artery disease) - Primary Coronary atherosclerosis of unspecified type of vessel, [place] or graft Hypertension Unspecified essential hypertension Lipid disorder Unspecified disorder of lipoid metabolis m Myocardial infarction, 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
--- OUTSIDE RECORDS SUMMARY | 2022-01-28 01:21 | XMS_ITS | Encounter Summary ---
:1945 Author Organization [facility] [place] [address] Care Team Providers Name Role Phone Candace Avery APRN Primary Care Provider Reason for Visit Reason Comments Aftercare Of Tjr SP L TKR DOS 09/10/05 Right Knee Pain Encounter Details Date Type Department Care Team Description 05/14/2011 Office Visit Orthopaedics at [facility] Chandra Del Rosario History of total knee [facility] MD [place] arthroplasty(LEFT) [facility] (Primary Dx) [place] [address] [phone] ORTHOPAEDIC SURGERY [place], [place] [address] Social History Tobacco Use Types Packs/Day Years Used Date Never Smoker Smokeless Tobacco: Never Used Alcohol Use Standard Drinks/Week Comments No 0 (1 standard drink = 0.6 oz pure alcoho l) Sex Assigned at Date Recorded Not on file documented as of this encounter Last Filed Vital Signs Vital Sign Reading Time Taken Comments Blood Pressure 147/60 05/14/2011 2:31 PM EDT Pulse 57 05/14/2011 2:31 PM EDT Temperature - - Respiratory Rate - - Oxygen Saturation - - Inhaled Oxygen Concentration - - Weight 127.1 kg (280 lb 4.8 oz) 05/14/2011 2:31 PM EDT Height 175.3 cm (5' 9) 05/14/2011 2:31 PM EDT PT STATE D Body Mass Index 41.39 05/14/2011 2:31 PM EDT documented in this encounter Patient Instructions Patient InstructionsLinda Salinas, LANI - 05/14/2011 2:35 PM EDT Welcome to Pixability, your secure online access to your electronic medical record at [facility]. Using Pixability you will be able to send messages to your providers, view your test results, renew prescriptions, schedule appointments, and much more. Follow these instructions to enter your personal Pixability account for the first time: 1. Start your internet browser. Go to [email or web address] and click on the Pixability link. 2. Click SIGN UP NOW to go to the NEW MEMBER SIGN UP page. 3. Enter your Pixability Access Code exactly as it appears below. (You will not need this access code after you have completed the sign-up process.) ?? Your Pixability Access Code: [email or web address] ?? Expires: 06/28/11 02:35 PM ?? IMPORTANT: This Access Code will on the above mentioned date. If you do not sign up beforethis date, you will need to request a new Access Code number. 4. Enter your Date of (mm/dd/yyyy) and zip code click SUBMIT to go to the next page. 5. Create a Pixability identification (ID). This will be your Pixability login ID and cannot be changed, so think of one that is secure and easy to remember. 6. Create a password which you can change at any time. Your password must contain six (6) letters and two (2) numbers. 7. Enter your Password Reset Question and Answer. This will be used if you forget your password. 8. Enter your e-mail address. This is used to let you know when new information is available in Pixability. 9. Click SIGN UP to complete the process. You can now view your electronic medical record. If you have any questions about [employer] or your Access Code, please call for [place], for [place] or for [place]. If you need technical support, please e-mail [email or web address]. Remember, myD-H is NOT for urgent needs! Always dial 911 for medical emergencies. documented in this encounter Progress Notes Jimenez Rolle - 05/14/2011 2:57 PM EDT Subjective: Patient ID: Corona Romo is a 66 y.o. male. HPI This is a 66yo male here for f/u on left TKA and discuss right knee pain. The left knee is doingfine. Having right knee pain. Had injury to right foot and knee in 2008. Jumped approximately 3 footoff stand and caused foot pain. Initially seen by PCP and then referred to Ortho. Wears an AFO on the right for foot drop. No initially right knee pain or swelling. At times the right knee feels unstable. Has noticed more pain to right knee for past year. Walking with cane, may use Tylenol or ice. Recently hunting, walking down hills is painfull and sore for several days afterwards. [facility] Has a new pair of diabetic chukka boots to be delivered next week. Patient Active Problem List Diagnoses Code ??? CIS - CAD [address] ??? CIS - DJD ??? CIS - DM, Type II ??? CIS - Hypertension, idiopathic, obesity aggrivated ??? CIS - Lipid disorder, on statin ??? CIS - Morbid obesity ??? CIS - Obstructive sleep apnea, on CPAP daily ??? History of total knee arthroplasty(LEFT) V43.65AY Social history: . 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 Hobbies: fishing, hunting. FMHx: unknown ROS Objective: Physical Exam 5'9 280lbs Antalgic gait with wide passed gait. Right foot drop. Mild lower extremity edema bilateral. EHL weakness. Ortho Exam Post Op Left Knee Exam: Gait Abnormality: Antalgic Knee ROM: Extension:0 Flexion: 115 Alignment: 0-4 degrees Neutral Stability: A/P Translation <5mm Varus <5mm Valgus <5mm Extension La degrees or less Patella Tracking: Normal Pulses Palpable: Left PT:Yes Left DP:Yes Motor/Sensory: Left Distal Motor: Normal Distal Sensory: Normal Quadriceps Strength:4 I have made the following determinations: Knee Exam: Right Prior surgery on this joint: No Gait Abnormality: Antalgic Knee ROM: Extension:5 Flexion: 105 Alignment: 0-4 degrees Varus Stability: A/P Translation <5mm. Varus 5-10mm Valgus <5mm Extension La degrees or less Radiographic [...] Normal Distal Sensory: Normal Quadriceps Strength: 4 XRAYS REVEAL RIGHT KNEE WITH TRICOMPARTMENT/MEDIAL BONE ON BONE AND LEFT TKA WITHOUT COMPLICATIOINS Neurologic ExamEMG/NCS: Peroneal neuropathy(right) 2008 Assessment and Plan:Right knee osteoarthritis 2. Right foot drop 3. Left TKA Discussed foot care, use of AFO and new arriving Chukka boots. Discussed right knee, patient states he currently doing well, does not feels he wants a steroid injection or needs a new joint at this stage. Discussed weight loss and need for antibiotics with dental procedures or other discussed infections. Will f/u in 2 years with xrays, sooner if needed. Physician coverage today is Dr. Del Rosario documented in this encounter Plan of Treatment Upcoming Encounters Date Type Specialty Care Team Description 03/12/2022 Appointment Cardiology Diane Garcia APRN [facility] [address] [place], [place] [address] (Wo rk) documented as of this encounter Visit Diagnoses Diagnosis History of total knee arthroplasty(LEFT) - Primary Knee joint replacement by other means documented in this encounter Care Teams Dry Placer Machine Operator Relationship Specialty Start Date End Date Candace Avery APRN PCP - General 04/03/11 01/17/15 [facility] [address] [place] [address] documented as of this encounter
--- OUTSIDE RECORDS SUMMARY | 2022-01-28 01:21 | XMS_ITS | Encounter Summary ---
:1945 Author Organization [facility] Address [address] [place] [address] Care Team Providers Name Role Phone Candace Avery MELISSA Primary Care Provider Encounter Details Date Type Department Care Team Description 07/18/2013 Orders Only Orthopaedics at [facility] Chandra Del Rosario Osteoarthritis of right knee ; [facility] MD [place] History of total knee arthroplasty, [place] [address] [place] [address] ORTHOPAEDIC SURGERY [place], [place] [address] Social History Tobacco Use Types Packs/Day Years Used Date Never Smoker Smokeless Tobacco: Never Used Alcohol Use Standard Drinks/Week Comments No 0 (1 standard drink = 0.6 oz pure alcoho l) Sex Assigned at Date Recorded Not on file documented as of this encounter Plan of Treatment Upcoming Encounters Date Type Specialty Care Team Description 03/12/2022 Appointment Cardiology Diane Garcia APRN [facility] CARDIOLOGY [place], [place] [address] (Wo rk) documented as of this encounter Results XR knee bilateral 1 [...] leg History of total knee arthroplasty, left Osteoarthritis of right knee Osteoarthrosis, unspecified whether gene ralized or localized, lower leg History of total knee arthroplasty, left Knee joint replacement by other means documented in this encounter Care Teams Hearing Aide Technician Relationship Specialty Start Date End Date Candace Avery, CADDYMASTER PCP - General 04/03/11 01/17/15 CAROLYN [address] [place] [address] documented as of this encounter
--- OUTSIDE RECORDS SUMMARY | 2022-01-28 01:21 | XMS_ITS | Encounter Summary ---
:1945 Author Organization [facility] [place] [address] Care Team Providers Name Role Phone Bennie Candace Blanc APRN Primary Care Provider Encounter Details Date Type Department Care Team Description 08/23/2012 Hospital Encounter Nuclear Medicine at [facility] (Patient Concepcion Rabago MD Cancelled) [facility] [address] [place], [place] CARDIOLOGY DEPT. [address] [place], [place] [phone] [id number] Social History Tobacco Use Types Packs/Day Years [...] Team Description 03/12/2022 Appointment Cardiology Diane Garcia, PEANUT GRADER [facility] CARDIOLOGY [place], [place] [address] (Wo rk) documented as of this encounter Visit Diagnoses Not on filedocumented in this encounter Care Teams Finishing And Shipping Supervisor Relationship Specialty Start Date End Date Candace Avery APRN PCP - General 04/03/11 01/17/15 CAROLYN [address] [place] [address] documented as of this encounter
--- OUTSIDE RECORDS SUMMARY | 2022-01-28 01:21 | XMS_ITS | Encounter Summary ---
:1945 Author Organization [facility] [place] [address] Care Team Providers Name Role Phone Candace Avery Guanaco TORRES Primary Care Provider Encounter Details Date Type Department Care Team Description 10/11/2013 Telephone Orthopaedics at [facility] Chandra Del Rosario MD [facility] [place] [phone] ORTHOPAEDIC SURGERY [phone] [place], [place] [address] (Wo rk) Social History Tobacco Use Types Packs/Day Years Used Date Never Smoker Smokeless Tobacco: Never Used Alcohol Use Standard Drinks/Week Comments No 0 (1 standard drink = 0.6 oz pure alcoho l) Sex Assigned at Date Recorded Not on file documented as of this encounter Miscellaneous Notes Telephone Encounter - Jose Herring - 10/11/2013 4:14 PM EDT Pt called back on 10/11/13 and scheduled surgical procedure for 12/11/[address] Del Rosario Telephone Encounter - Jose Herring - 10/11/2013 3:57 PM EDT LM today, 10/11/13 for pt to return call to schedule surgical procedure with Dr. Del Rosario. documented in this encounter Plan of Treatment Upcoming Encounters Date Type Specialty Care Team Description 03/12/2022 Appointment Cardiology Diane Garcia APRN [facility] [place], [place] [address] (Wo rk) documented as of this encounter Visit Diagnoses Not on filedocumented in this encounter Care Teams Bicycle Ii Assembler Relationship Specialty Start Date End Date Candace Avery APRN PCP - General 04/03/11 01/17/15 CAROLYN [address] [place] [address] documented as of this encounter
[2022-01-28 08:10] LABS: Abs Immature Grans 0.02 10^3/uL (0.0-0.06); Absolute Basophil Count 0.06 10^3/uL (0.0-0.2); Absolute Eosinophil Count 0.19 10^3/uL (0.0-0.7); Absolute Monocyte Count 0.67 10^3/uL (0.1-0.8); Absolute Neutrophil Count 3.56 10^3/uL (1.2-6.7); Basophils % 1.1; Eosinophils % 3.3; HCT 38.6 % (40.0-50.0); HGB 13.3 g/dL (13.5-17.5); Immature Grans % 0.4; Lymphocytes % 21.1; MCH 29.6 pg (27.0-33.0); MCHC 34.5 % (32.0-36.0); MCV 86 fL (80-95); MPV 9.8 fL (8.0-11.0); Monocytes % 11.8; Neutrophils % 62.3; Platelet Count 176 10^3/uL (130-400); RDW 13.6 % (11.8-14.1); RDW-SD 42.7 fL
[2022-01-28 08:26] LABS: Hemoglobin A1C 6.5 % (<5.7)
[2022-01-28 08:40] LABS: ALT 18 U/L (16-63); AST 18 U/L (15-37); Albumin 3.8 g/dL (3.4-5.0); Alkaline Phosphatase 132 U/L (46-116); Anion Gap 8.9 mmol/L (3-11); BUN 30 mg/dL (7-18); Bilirubin, Total 0.9 mg/dL (0.2-1.0); CO2 28.1 mmol/L (21.0-32.0); CREATININE 1.3 mg/dL (0.70-1.30); Calcium 8.8 mg/dL (8.5-10.1); Calculated LDL 76 mg/dL (<100); Chloride 100 mmol/L (98-107); Cholesterol 167 mg/dL (<200); Estimated GFR 53.53 (mL/min/1.73m2); Glucose 125 mg/dL (74-106); HDL Cholesterol 82 mg/dL (40-60); Potassium 3.7 mmol/L (3.5-5.1); Sodium 137 mmol/L (136-145); Total Protein 7.1 g/dL (6.4-8.2); Triglyceride 46 mg/dL (<150)
[2022-01-28 10:35] LABS: COMMENT (LAB VIEW ONLY) 108.13 mg/dL
== END 2022-01-28 01:17 | disposition home or self-care (01) ==
LOC: LBO 01:16
PROVIDERS: PCP Nurse Practitioner Adult Health; Visit Provider Nurse Practitioner Adult Health
DX: E11.9 Type 2 diabetes mellitus without complications (principal); E78.5 Hyperlipidemia, unspecified; I10 Essential (primary) hypertension; I25.10 Atherosclerotic heart disease of native coronary artery without angina pectoris; Z86.2 Personal history of diseases of the blood and blood-forming organs and certain disorders involving the immune mechanism
CPT/HCPCS: 36415; 80053; 80061; 82043; 82570; 83036; 85025

== ENCOUNTER 2022-10-12 17:47 | Outpatient (CLI) | payer MEDICARE, SELFPAY ==
--- NOTE | 2022-10-12 | DI.RAD_ITS ---
Exam(s) XR SHOULDER LT COMPLETE 2+V EXAM: XR SHOULDER LT COMPLETE 2+V CLINICAL HISTORY: PAIN IN LEFT SHOULDER. TECHNIQUE: 2D digital imaging was performed. Three views. COMPARISON: CR LEFT SHOULDER COMPLETE from 02/21/2009 FINDINGS: BONES: No acute fracture is present. No bony destructive lesion is seen. JOINTS: No dislocation present. Spurring AC joint. Spurring at glenoid and inferior humeral head as well as greater tuberosity. Glenohumeral joint space is maintained. Humeral head is superiorly pos itioned, beneath the undersurface of the acromion, consistent with chronic rotator cuff tear. SOFT TISSUE: Normal. IMPRESSION: Degenerative changes and chronic rotator cuff tear. DATA REPOSITORY: RADIATION DOSE DELIVERED:
--- NOTE | 2022-10-12 18:45 | DI.VRAD_ITS ---
PROCEDURE INFORMATION: Exam: XR Left Shoulder Exam date and time: 10/12/2022 6:56 PM Age: 77 years old Clinical indication: Other: Left shoulder pain TECHNIQUE: Imaging protocol: Radiologic exam of the left shoulder. Views: 2 or more views. COMPARISON: CR XR SHOULDER LT COMPLETE 2+V 10/12/2022 6:07 PM FINDINGS: Bones/joints: Osteopenia. No fractures. Glenohumeral alignment is normal. Mild osteoarthritic spurring at the inferior articular margin of the humeral head. Mild chronic bony remodeling at the acromial humeral interface with high riding humeral head configuration on the 3rd image suspicious for changes of chronic rotator cuff tear. A.C. joint alignment is normal. Mild osteoarthritic spurring in the AC joint. No blastic or lytic lesions. Adjacent ribs are intact. Lungs: Visualized lung parenchyma is unremarkable. Pleural space: No visible pleural effusion or pneumothorax. Soft tissues: No gross soft tissue abnormalities. IMPRESSION: 1. Suspect chronic rotator cuff tear. Nonemergent shoulder MRI would offer greater specificity if clinically indicated. 2. Osteopenia and osteoarthritic changes. Dictated and Authenticated by: Felipe Bermudez MD. Ordering:SOLOMON DECKER MD
== END 2022-10-12 18:07 ==
PROVIDERS: PCP Nurse Practitioner Adult Health; Visit Provider Nurse Practitioner Family
DX: M25.512 Pain in left shoulder (principal); M19.012 Primary osteoarthritis, left shoulder; M75.102 Unspecified rotator cuff tear or rupture of left shoulder, not specified as traumatic
CPT/HCPCS: 73030

== ENCOUNTER → 2022-10-28 13:18 | Outpatient (BNVA) | payer MEDICARE, SELFPAY | PROVIDERS: PCP Nurse Practitioner Adult Health; Referring Provider Nurse Practitioner Adult Health; Visit Provider Student in an Organized Health Care Education/Training Program | DX: M75.102 Unspecified rotator cuff tear or rupture of left shoulder, not specified as traumatic (principal); M12.812 Other specific arthropathies, not elsewhere classified, left shoulder; W19.XXXA Unspecified fall, initial encounter | CPT/HCPCS: 20610; 99203; 99213; J1030 ==

== ENCOUNTER 2022-12-01 17:25 | Emergency (ER) | payer MEDICARE, SELFPAY ==
[2022-12-01 17:40] VITALS: BP 161/70; PULSE 65; RESP 18; TEMP 36.4; O2SAT 96
--- NOTE | 2022-12-01 18:45 | DI.RAD_ITS ---
Exam(s) XR CHEST 2V PA LATERAL EXAM: XR CHEST 2V PA LATERAL CLINICAL HISTORY: Back Pain, Pain with breathing. TECHNIQUE: 2D digital imaging was performed. COMPARISON: CR CHEST 2 VIEWS PA,LAT from 08/17/2012 FINDINGS: 2 views: Heart size is normal. The mediastinum is not widened. Right hemidiaphragm is chronically elevated, slightly more so than 10 years ago. Lungs are clear. No infiltrates nor pleural effusions. There is subsegmental platelike atelectasis in the lower right lung field above the elevated hemidiap hragm. IMPRESSION: No acute pulmonary findings. Chronically elevated right hemidiaphragm. DATA REPOSITORY: RADIATION DOSE DELIVERED:
--- NOTE | 2022-12-01 18:45 | DI.RAD_ITS ---
Exam(s) XR SHOULDER RT COMPLETE 2+V EXAM: XR SHOULDER RT COMPLETE 2+V CLINICAL HISTORY: Shoulder pain. TECHNIQUE: 2D digital imaging was performed. COMPARISON: CR,XR XR SHOULDER LT COMPLETE 2+V from 10/12/2022 FINDINGS: Five views No evidence of acute fracture nor dislocation no abnormal soft tissue densities. However, there is u pward subluxation of the humeral head in the osseous glenoid fossa with diminution of the subacromial space, these findings usually associated with chronic full-thickness rotator cuff tear. There are d egenerative changes in the AC joint noted. Also mild-moderate degenerative changes in the glenohumer al joint. Bone density normal no significant osseous lesions. IMPRESSION: Findings as above. Suspect rotator cuff tear. Clinically indicated follow-up MRI can be performed. DATA REPOSITORY: RADIATION DOSE DELIVERED:
--- NOTE | 2022-12-01 19:02 | ED.GENADUL_ITS ---
Discharge Plan Disposition Patient Disposition: Home Discharge Details Clinical Impression: Muscle strain of right upper back, Degenerative joint disease of right shoulder Primary Care Provider: Jessie Bose ED Provider: Gladys Bryant Home Meds and New Rx's Prescriptions: New lidocaine 5 % adhesive patch,medicated 1 patch topical DAILY Qty: 15 0RF Rx Instructions: leave on most painful area for up to 12 hrs No Action aspirin 81 mg tablet,delayed release (DR/EC) 81 mg PO DAILY budesonide-formoterol [Symbicort] 160-4.5 mcg/actuation HFA aerosol inhaler 2 puff Inhalation BID Qty: 10.2 11RF nitroglycerin 0.4 mg tablet, sublingual 0.4 mg SUBLINGUAL DIRECTED Qty: 30 0RF (DME) Right AFO See Rx Instructions .Route .MEDSUPPLY Qty: 1 0RF Rx Instructions: As directed penicillin V potassium 500 mg tablet 500 mg PO BID Qty: 180 3RF Rx Instructions: cellulitis prevention ([facility] ID) Lumigan 0.01 % drops 1 drp ophthalmic (eye) DAILY spironolactone 25 mg tablet 25 mg PO DAILY albuterol sulfate [ProAir HFA] 90 mcg/actuation HFA aerosol inhaler 1 - 2 puff Inhalation Q6H PRN Qty: 6.7 2RF Rx Instructions: SOB/wheeze bupropion HCl 150 mg tablet sustained-release 12 hr 150 mg PO BID Qty: 180 3RF finasteride [Proscar] 5 mg tablet 5 mg PO HS Qty: 90 3RF furosemide 40 mg tablet 40 mg PO BID losartan 100 mg tablet 100 mg PO DAILY Qty: 90 3RF metformin 500 mg tablet 1,000 mg PO BID Qty: 360 3RF Rx Instructions: diabetes amlodipine 10 mg tablet See Rx Instructions .ROUTE .COMPLEX Qty: 90 3RF Dose Instruction: TAKE ONE TABLET BY MOUTH EVERY DAY Rx Instructions: TAKE ONE TABLET BY MOUTH EVERY DAY atorvastatin 80 mg tablet See Rx Instructions .ROUTE .COMPLEX Qty: 90 3RF Dose Instruction: TAKE ONE TABLET BY MOUTH AT BEDTIME Rx Instructions: TAKE ONE TABLET BY MOUTH AT BEDTIME acetaminophen [Tylenol] 325 mg capsule 650 mg PO Q6H PRN (Reason: fever or pain) Qty: 30 0RF cholecalciferol (vitamin D3) [Vitamin D3] 50 mcg (2,000 unit) Capsule 50 mcg PO DAILY Discharge Instructions Instructions: Osteoarthritis (ED), Back Pain (ED) Additional Instructions: You do have some significant osteoarthritis to your spine and shoulder. I also suspect a muscle strain from increased activity. You may apply topical lidoc rufino patches or topical IcyHot or similar. Please take Tylenol with food every 4-6 hours as needed for pain and swelling. Take the muscle relaxer as needed. This may make you sleepy. Follow up with primary care provider in 3-5 days. Return to ED sooner if any worsening or concerns. Increase oral fluids. Referrals: Jessie Bose NP [Primary Care Provider] - 5 days Medical Decision Making 77-year-old male presents to the ER with chief complaint of right shoulder and back pain which patient reports began last night. He does have pain with palpation deep breathing and movement. He did take Tylenol around 430 this morning. Past medical history includes depression BPH, diverticulosis, obesity, type 2 diabetes COPD. He denies any chest pain shortness of breath problems urinating or any abdominal pain. He does state that he was having some increased activity and was polishing the car yesterday. X-ray right shoulder chest x-ray ordered. Flexeril and lidocaine patch. 650 mg Tylenol. X-rays negative. Patient reevaluation reports he feels much better. Discussed home care. Flexeril to go given. Instructed on strict return instructions and follow-up care. This text was generated using [employer] dictation system, please disregard any oddities of phrase or misspellings. HPI General Mode of arrival: ambulatory . Date/Time Provider Initiated Documentation: 12/01/22 18:02 . Limitations to Documentation: no limitations . Information obtained by: patient, RN notes reviewed and old records reviewed . HPI Narrative: 77-year-old male presents to the ER with chief complaint of right shoulder and back pain which patient reports began last night. He does have pain with palpation deep breathing and movement. He did take Tylenol around 430 this morning. Past medical history includes depression BPH, diverticulosis, obesity, type 2 diabetes COPD. He denies any chest pain shortness of breath problems urinating or any abdominal pain. He does state that he was having some increased activity and was polishing the car yesterday. Related Data Home Medications Medication Instructions Recorded Confirmed acetaminophen 325 mg capsule 650 mg PO Q6H PRN fever or pain 05/10/19 12/01/22 (Tylenol) #30 caps aspirin 81 mg tablet,delayed 81 mg PO DAILY 09/02/20 12/01/22 release spironolactone 25 mg tablet 25 mg PO DAILY 11/22/20 12/01/22 cholecalciferol (vitamin D3) 50 50 mcg PO DAILY 07/07/21 12/01/22 mcg (2,000 unit) capsule (Vitamin D3) albuterol sulfate 90 mcg/actuation 1 - 2 puff inhalation Q6H PRN 09/12/21 12/01/22 aerosol inhaler (ProAir HFA) shortness of breath or wheezing #6.7 grams bupropion HCl 150 mg tablet,12 hr 150 mg PO BID #180 tabs 09/12/21 12/01/22 sustained-release finasteride 5 mg tablet (Proscar) 5 mg PO HS #90 tabs 09/12/21 12/01/22 budesonide-formoterol HFA 160 2 puff inhalation BID #10.2 grams 11/03/21 12/01/22 mcg-4.5 mcg/actuation aerosol inhaler (Symbicort) furosemide 40 mg tablet 40 mg PO BID 12/12/21 12/01/22 nitroglycerin 0.4 mg sublingual 0.4 mg sublingual DIRECTED #30 02/04/22 12/01/22 tablet tabs Right AFO #1 ea 05/04/22 12/01/22 penicillin V potassium 500 mg 500 mg PO BID #180 tabs 09/21/22 12/01/22 tablet amlodipine 10 mg tablet See Rx Instructions .Route 10/12/22 12/01/22 .COMPLEX #90 tabs atorvastatin 80 mg tablet See Rx Instructions .Route 10/12/22 12/01/22 .COMPLEX #90 tabs losartan 100 mg tablet 100 mg PO DAILY #90 tab-caps 10/12/22 12/01/22 metformin 500 mg tablet 1,000 mg PO BID #360 tab-caps 10/12/22 12/01/22 bimatoprost 0.01 % eye drops 1 drp ophthalmic (eye) DAILY 10/28/22 12/01/22 (Lumigan) lidocaine 5 % topical patch 1 patch topical DAILY #15 ea 12/01/22 Previous Rx's Medication Instructions Recorded acetaminophen 325 mg capsule 650 mg PO Q6H PRN fever or pain 05/10/19 (Tylenol) #30 caps albuterol sulfate 90 mcg/actuation 1 - 2 puff inhalation Q6H PRN 09/12/21 aerosol inhaler (ProAir HFA) shortness of breath or wheezing #6.7 grams bupropion HCl 150 mg tablet,12 hr 150 mg PO BID #180 tabs 09/12/21 sustained-release finasteride 5 mg tablet (Proscar) 5 mg PO HS #90 tabs 09/12/21 budesonide-formoterol HFA 160 2 puff inhalation BID #10.2 grams 11/03/21 mcg-4.5 mcg/actuation aerosol inhaler (Symbicort) nitroglycerin 0.4 mg sublingual 0.4 mg sublingual DIRECTED #30 02/04/22 tablet tabs Right AFO #1 ea 05/04/22 penicillin V potassium 500 mg 500 mg PO BID #180 tabs 09/21/22 tablet amlodipine 10 mg tablet See Rx Instructions .Route 10/12/22 .COMPLEX #90 tabs atorvastatin 80 mg tablet See Rx Instructions .Route 10/12/22 .COMPLEX #90 tabs losartan 100 mg tablet 100 mg PO DAILY #90 tab-caps 10/12/22 metformin 500 mg tablet 1,000 mg PO BID #360 tab-caps 10/12/22 lidocaine 5 % topical patch 1 patch topical DAILY #15 ea 12/01/22 Allergies Allergy/AdvReac Type Severity Reaction Status Date / Time oxycodone AdvReac Intermediate He goes a Verified 10/28/22 13:27 little wacky General Stated Complaint: Orthopedic LOREN: 4 Review of Systems All systems reviewed & are unremarkable except as noted in HPI and below Musculoskeletal Musculoskeletal: Reports as per HPI, Reports back pain, Reports arthralgias and Reports radiating pain into limb PFSH All Active Problems (Updated 12/01/22 @ 20:44 by Gladys Bryant NP) Muscle strain of right upper back (Acute) Degenerative joint disease of right shoulder (Acute) Rotator cuff arthropathy of left shoulder (Acute) subacromial corticosteroid injection 10/28/22 Normochromic normocytic anemia (Acute) Depression (Chronic) Long-term RX Wellbutrin BPH (benign prostatic hyperplasia) (Chronic) RX Finasteride Primary hypertension (Chronic) Myocardial infarction (Chronic) X2 Glaucoma (Chronic) 09/05/19 [place] Diverticulosis (Chronic) 2018 colonoscopy Obesity (Chronic) Sinus node dysfunction (Chronic) [facility] Cardiolgy; stay off of BB Tubular adenoma (Chronic 10/04/08) Colonoscopy 10/04/15 & repeat 2019 (13!) Coronary artery disease (Chronic) [facility] OR 1998 with angina; cath in 1998 1-vessel dis Obstructive sleep apnea (Chronic) h/o CPAP; clausterphobic with masks so stopped using; then 100# weight loss; referred in 11/2019 but he declined COPD (chronic obstructive pulmonary disease) (Acute) Diabetes type 2, controlled (Chronic) Dx'ed in Medical History Anxiety and depression Bradycardia, sinus 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 registered nurse cardiac Cataracts, bilateral 09/05/19 [place] OS>>OD Epidermal inclusion cyst Hyperlipidemia Atorvastatin Lipoma of head Removed 04/2019 [place] Pancreatitis [facility] 05/2018 (mild) Rupture of right biceps tendon PT Small bowel obstruction [facility] 05/2018 Surgical History S/P colonoscopy (~05/02/19) 09/2015- [place]- Tubular adenomas x2 05/2019--Brain x13 tubular adenomas S/P coronary artery stent placement 04/30/19 per pt he does not have a stent. 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 Adopted: No Caregiver/Support person: Yes Foster care: No Household members: significant other and family Housing: house Number of Children: 5 number of grandchildren: 15 Communication Needs: Hard of Hearing and Corrective Lenses Education Level: other Details: middle school Do you need help understanding health information?: Rarely current occupation: Retired-[employer] Pets and animals: Yes Sexually active: Yes Do you think of yourself as: straight/heterosexual Current gender identity: male What is your relationship status?: living with partner How often do you get together with friends or relatives?: twice per week Panel score (0-1 are the most socially isolated patients): 1 What type of physical activity do you participate in: walking Duration: > 90 minutes/day Frequency: 3-4 times per week Desirae/Buddhist: Worship Special desirae needs: No Seatbelt use: always Drive intox or ride w/intox waste collection driver: No Do you feel safe at home: Yes Do you feel safe in your relationship?: Yes Additional Social history: at bedside Exam Narrative Exam Narrative: Constitutional: Alert and oriented x3. Appears stated age. Normal body habitus. Head: Normocephalic, no trauma. Eyes: Pupils PERRL, Red reflex noted, EOM's intact. Eyelids symmetrical without lesions, discharge, or swelling. ENT: Bilateral TM's WNL, External ear normal to inspection, no mastoid TTP, swelling, or erythema, Nasal turbinates WNL, no nasal discharge. Normal dentition, Posterior pharynx WNL, no exudate. Chest: RRR, Normal S1, S2, distal pulses intact. Resp: Lungs clear to auscultation bilaterally, no wheezes, rales, or rhonchi. Abdomen: Soft, non-distended, Normoactive bowel sounds all 4 quads. Musculoskeletal: Normal gait, 5/5 strength to all four extremities. Skin: No suspicious rashes or lesions. Capillary refill less than 2 sec. Neurologic: Cranial nerves II-XII intact. Alert and oriented x 3. Motor: No deficits noted. Sensory: Intact bilaterally all 4 extremities. Reflexes: DTR's intact bilaterally.. Hematologic/Lymphatic: No ecchymosis, no lymphadenopathy. Course Vital Signs Vital signs: Vital Signs Temperature 36.4 C L 12/01/22 17:40 Pulse 65 12/01/22 17:40 Respiratory Rate 18 12/01/22 17:40 Blood Pressure 161/70 H 12/01/22 17:40 Pulse Oximetry 96 12/01/22 17:40 Temperature 36.4 C L 12/01/22 17:40 Temperature Source Temporal Artery Scan 12/01/22 17:40 Pulse 65 12/01/22 17:40 Respiratory Rate 18 12/01/22 17:40 Respiratory Effort Normal, Non-Labored 12/01/22 18:47 Blood Pressure 161/70 H 12/01/22 17:40 Blood Pressure Position Sitting 12/01/22 17:40 Pulse Oximetry 96 12/01/22 17:40 Oxygen Delivery Method Room Air 12/01/22 17:40 Oxygen Flow Rate 0 12/01/22 17:40 Pain Level 6 12/01/22 17:40
[2022-12-01] MEDS: Lidocaine 5% Patch 1 PATCH TP (19:07)
[2022-12-01] MEDS: Acetaminophen 325 MG TAB 650 MG PO (19:07)
[2022-12-01] MEDS: Cyclobenzaprine 10 MG TAB PO (19:07)
--- NOTE | 2022-12-01 20:25 | DI.VRAD_ITS ---
PROCEDURE INFORMATION: Exam: XR Right Shoulder Exam date and time: 12/01/2022 8:01 PM Age: 77 years old Clinical indication: Right; Patient HX: R shoulder pain TECHNIQUE: Imaging protocol: Radiologic exam of the right shoulder. Views: 2 or more views. COMPARISON: CR XR CHEST 2V PA LATERAL 12/01/2022 7:56 PM FINDINGS: Bones/joints: Osseous alignment appears normal. No acute fracture. Moderate degenerative changes including inferior spurring noted in the acromioclavicular joint. Glenohumeral joint appears normal. Soft tissues: Normal. IMPRESSION: No acute abnormality Dictated and Authenticated by: Guille Castañeda MD. Ordering:BLAKE Graham MD
--- NOTE | 2022-12-01 20:26 | DI.VRAD_ITS ---
PROCEDURE INFORMATION: Exam: XR Chest Exam date and time: 12/01/2022 7:56 PM Age: 77 years old Clinical indication: On breathing; Patient HX: Back pain, pain with breathing TECHNIQUE: Imaging protocol: Radiologic exam of the chest. Views: 2 views. COMPARISON: CR ABD FLAT UPRIGHT PA CHEST 12/19/2015 12:31 AM FINDINGS: Lungs: Unremarkable. No consolidation. Pleural spaces: Unremarkable. No pleural effusion. No pneumothorax. Heart/Mediastinum: Unremarkable. No cardiomegaly. Diaphragm: There is stable large eventration of the right hemidiaphragm. Bones/joints: Degenerative changes of the spine and shoulders noted IMPRESSION: No acute abnormality Dictated and Authenticated by: Guille Castañeda MD. Ordering:BLAKE Graham MD
[2022-12-01] MEDS: Cyclobenzaprine 10 MG TAB, 3 TABS/BTL PO (20:55)
[2022-12-01 21:08] VITALS: BP 145/84; PULSE 80; RESP 20; O2SAT 95
== END 2022-12-01 21:09 | disposition home or self-care (01) ==
PROVIDERS: Emergency Provider Registered Nurse Emergency; PCP Nurse Practitioner Adult Health
DX: M19.011 Primary osteoarthritis, right shoulder (principal); S29.012A Strain of muscle and tendon of back wall of thorax, initial encounter; X58.XXXA Exposure to other specified factors, initial encounter; E11.9 Type 2 diabetes mellitus without complications; F32.A Depression, unspecified; J44.9 Chronic obstructive pulmonary disease, unspecified
CPT/HCPCS: 99284; 71046; 73030

== ENCOUNTER 2022-12-28 04:14 | Outpatient (CLI) | payer MEDICARE, SELFPAY ==
[2022-12-28 08:18] LABS: Abs Immature Grans 0.01 10^3/uL (0.0-0.06); Absolute Basophil Count 0.07 10^3/uL (0.0-0.2); Absolute Eosinophil Count 0.24 10^3/uL (0.0-0.7); Absolute Lymphocyte Count 1.07 10^3/uL (1.2-3.4); Absolute Monocyte Count 0.68 10^3/uL (0.1-0.8); Basophils % 1.4; Eosinophils % 4.7; HCT 40.5 % (40.0-50.0); HGB 13.7 g/dL (13.5-17.5); Immature Grans % 0.2; Lymphocytes % 21.1; MCH 29.3 pg (27.0-33.0); MCHC 33.8 % (32.0-36.0); MCV 87 fL (80-95); MPV 9.6 fL (8.0-11.0); Monocytes % 13.4; Neutrophils % 59.2; Platelet Count 199 10^3/uL (130-400); RBC 4.68 10^6/uL (4.36-5.78); RDW 13.4 % (11.8-14.1); RDW-SD 42.2 fL; WBC 5.07 10^3/uL (4.4-10.8)
[2022-12-28 09:02] LABS: COMMENT (LAB VIEW ONLY) 79.41 mg/dL; Microalb ug/mg Crea 37.3 ug/mg Cr
[2022-12-28 09:04] LABS: ALT 17 U/L (16-63); AST 18 U/L (15-37); Albumin 3.7 g/dL (3.4-5.0); Alkaline Phosphatase 127 U/L (46-116); Anion Gap 6.6 mmol/L (3-11); BUN 16 mg/dL (7-18); Bilirubin, Total 0.8 mg/dL (0.2-1.0); CO2 27.4 mmol/L (21.0-32.0); Calcium 8.8 mg/dL (8.5-10.1); Calculated LDL 87 mg/dL (<100); Chloride 102 mmol/L (98-107); Cholesterol 177 mg/dL (<200); Estimated GFR 77.04 (mL/min/1.73m2); Glucose 108 mg/dL (74-106); HDL Cholesterol 80 mg/dL (40-60); Potassium 4.1 mmol/L (3.5-5.1); Sodium 136 mmol/L (136-145); Total Protein 7.2 g/dL (6.4-8.2); Triglyceride 54 mg/dL (<150)
[2022-12-28 09:52] LABS: Hemoglobin A1C 6.4 % (<5.7)
== END 2022-12-28 04:15 | disposition home or self-care (01) ==
LOC: LBO 04:14
PROVIDERS: PCP Nurse Practitioner Adult Health; Referring Provider Nurse Practitioner Adult Health; Visit Provider Nurse Practitioner Adult Health
DX: D64.9 Anemia, unspecified (principal); E11.9 Type 2 diabetes mellitus without complications; G47.33 Obstructive sleep apnea (adult) (pediatric); I10 Essential (primary) hypertension; J44.9 Chronic obstructive pulmonary disease, unspecified; N40.0 Benign prostatic hyperplasia without lower urinary tract symptoms
CPT/HCPCS: 36415; 80053; 80061; 82043; 82570; 83036; 85025

== ENCOUNTER 2023-02-14 20:34 | Inpatient (IN) | payer MEDICARE, SELFPAY ==
[2023-02-14] VITALS (8 sets, daily range): BP systolic 167–183; BP diastolic 75–98; PULSE 69–78; RESP 15–25; TEMP 36.6; O2SAT 93–98
--- NOTE | 2023-02-14 21:00 | RT.EKG_ITS ---
APPROVED REPORT Exam: Resting ECG Reason for Exam: abdominal pain, hx ACS Patient Location: E HR:76 bpm ECG Measurements Heart Rate 76 AXIS OH 145 P 95 QRSd 176 QRS -28 QT 433 T 104 QTc 485 Conclusion Sinus rhythm...normal P axis, V-rate 60- 99 Right bundle branch block...QRSd>120, terminal axis(90,270) Inferior infarct, acute...ST>0.10mV, T upright, II III aVF Normal sinus rhythm at a rate of 76 with bifascicular block. QRS within normal limits. Appears jose lar to prior in [facility] EMR. No acute injury pattern.
--- NOTE | 2023-02-14 21:00 | DI.CT_ITS ---
Exam(s) CT ABDOMEN PELVIS W EXAM: CT ABDOMEN PELVIS W CLINICAL HISTORY: severe abdominal pain. TECHNIQUE: Imaging Protocol: Axial computed tomography images with coronal and sagittal reformatted images were created and reviewed CONTRAST MATERIAL: Intravenous: Omnipaque 350 Contrast volume:100 ml Oral: / no FINDINGS: Exam limited by patient motion. ABDOMEN: Lung Bases: Dependent changes and respiratory motion. Liver: Normal density. No measurable mass. Gallbladder and biliary tract: Mild wall thickening. Small amount of pericholecystic fluid. No bili ricardo dilatation. Pancreas: Somewhat atrophic. No abnormal calcifications or inflammatory process. Spleen: Normal. Kidneys: Normal size, contour and axis. No radiodense stones or obstructive uropathy. Small cysts. No suspicious masses seen. Adrenal glands: No masses seen. Abdominal Aorta: Abdominal portion non-dilated. Mild atherosclerotic changes. Soft tissues: Large bilateral inguinal hernias. The right inguinal hernia contains a large amount of non obstructed loops of small bowel. There is a small amount of fluid. No bowel was present on the prior exam. Small hernia above the level of the umbilicus cyst peripherally calcified. PELVIS: Bladder: No gross wall thickening. No calculi.No focal mass. Bowel: Stomach is distended with fluid. There is abnormal dilatation of multiple loops of small lalito l with air-fluid levels and feculent appearing material. There is no pneumatosis. No bowel wall thi ckening. Transition point not definitely identified. Possibly right mid abdomen anteriorly. Append ix normal. Peritoneal cavity: Small amount of fluid in the low pelvis. Bones: Degenerative changes in the spine. Reproductive organs: Enlarged prostate. Lymph nodes: Unremarkable. Impression: findings consistent with small-bowel obstruction with transition point which appears to lie in the ri ght mid abdomen. Large right inguinal hernia containing loops of small bowel which do not appear obstructed. Mild gallbladder wall thickening and pericholecystic fluid. No biliary dilatation or visible stones. RADIATION DOSE DELIVERED: 2,498.52mGy.cm Total DLP DATA REPOSITORY: All CT scans at this facility are submitted to the National Radiology Data Registry (NRDR) Dose Index Registry (DIR) with the [employer] (ACR). RADIATION OPTIMIZATION: All CT scans at this facility use at least one of these dose optimization te chniques: automated exposure control; mA and/or kV adjustment per patient size (includes targeted exa ms where dose is matched to clinical indication); or iterative reconstruction.
--- NOTE | 2023-02-14 21:06 | ED.GENADUL_ITS ---
Discharge Plan Disposition Patient Disposition: Admit to [facility] Discharge Details Clinical Impression: Hernia Admit Date/Time: 02/14/23 23:30 Admit Provider: Thaddeus Forrester Attending Provider: Thaddeus Forrester Primary Care Provider: Jessie Bose ED Provider: Mora Arzate Discharge Data Discharge Date/Time-TO BE ENTERED AT DEPARTURE: 02/15/23 01:01 Medical Decision Making Patient is a pleasant 77-year-old male, brought in by his , with past medical history significant for depression, BPH, hypertension, [place], diverticulosis, obesity, CAD, RJ, COPD, type 2 diabetes, pancreatitis presenting today with chief complaint of severe abdominal pain. They report that he has had multiple abdominal surgeries primarily for hernia repair. Most recent average was a few years ago. He reports that this came on suddenly few hours prior to arrival and has been severe periumbilical pain with no radiation to the back. States that he did have 1 episode of emesis and is currently endorsing nausea. Denies any fevers or chills. No change in bladder bowel or bladder habits. On exam, patient appears uncomfortable. Does have some nausea at this time. Lungs are clear, normal cardiac exam. He has signficat pain over firm umbilical hernia. Quarter sized. No discoloration. No pulsatile mass. 2+ distal pulses. No LE edema, no calf pain. Focally tender at the umbilical hernia. ECG was reviewed by Dr Poole who compared to previous from . Concerned for hernia incarceration, possible strangulation that is early. Considered obstruction. Exam is not consistent with AAA. No pain over RLQ to suggest appendicitis. Will obtain CT imaging. Will give antiemitics and pain medication. He has hx of oxycodone allergy but they report only with custodial use. Will obtain labs, hydrate the patient and keep him NPO. Reviewed the imaging. No air-fluid levels as well as fat-containing hernia at the area of maximal tenderness near umbilicus. This is site of previous hernia repair as well as mesh placement per patient and . Attempts were made by myself as well as Dr. Poole both with direct manipulation as well as ultrasound manipulation for reduction of this tender area. No overriding skin changes. Attempts were unsuccessful although patient did seem to tolerate these well. FINDINGS: Lungs: There is heterogeneous attenuation of the pulmonary parenchyma, consistent with air trapping from underlying small airways disease. Moderate atelectatic changes seen at the lung bases bilaterally. Liver: Normal. No mass. Gallbladder and bile ducts: There is a moderate amount of pericholecystic fluid. High attenuation material seen within the gallbladder lumen may represent sludge versus small stones acute cholecystitis is not excluded. Consider ultrasound if clinically warranted. Pancreas: There is mild pancreatic atrophy and fatty replacement. Spleen: Click no liverThe spleen is normal. An accessory splenule is present. Adrenal glands: The adrenal glands are normal. Kidneys and ureters: Low-attenuation lesions within the kidneys bilaterally consistent with simple renal cysts. Mild irregularity of the renal contours consistent with old scarring. No evidence of hydronephrosis, renal calculi or perinephric fluid collections. Stomach and bowel: There is distension of the small bowel with multiple air-fluid levels. The dilation of the small bowel shows transition at the level of the large right inguinal hernia and this likely represents at least a partial mechanical small bowel obstruction. Appendix: No evidence of appendicitis. Intraperitoneal space: Unremarkable. No free air. No significant fluid collection. Vasculature: The aorta demonstrates mild atherosclerotic calcification. The arterial peripheral vasculature demonstrates diffuse mild atherosclerotic calcification. The inferior venacava appears normal.The portal, mesenteric and splenic veins are patent. The stomach is distended with fluid and air. Lymph nodes: Unremarkable. No enlarged lymph nodes. Urinary bladder: Unremarkable as visualized. Reproductive: The prostate gland demonstrates calcification and moderate nonspecific enlargement. The seminal vesicles are normal. Bones/joints: The thoracolumbar spine demonstrates moderate degenerative changes at multiple levels.The lumbar spine demonstrates moderate degenerative changes. Soft tissues: There is a nonobstructing left inguinal hernia containing fat and possibly a small amount of mesentery. There is a the umbilical hernia containing a calcified thickened soft tissue. IMPRESSION: 1. There is distension of the small bowel with multiple air-fluid levels. The dilation of the small bowel shows transition at the level of the large right inguinal hernia and this likely represents at least a partial mechanical small bowel obstruction. 2. There is heterogeneous attenuation of the pulmonary parenchyma, consistent with air trapping from underlying small airways disease. 3. There is a moderate amount of pericholecystic fluid. High attenuation material seen within the gallbladder lumen may represent sludge versus small stones acute cholecystitis is not excluded. Consider ultrasound if clinically warranted. 4. There is a the umbilical hernia containing calcified thickened soft tissue. Consulted with Dr. Forrester who agrees to admission. Unclear at this time the exact source. Clinically, periumbilical hernia source of pain. No inguinal pain although he does state that right can swelling and become firm occassionally. Patient NPO, fluids. Will give IV Acetaminophen. Patient agrees to admission. HPI General Date/Time Provider Initiated Documentation: 02/14/23 21:06 . Limitations to Documentation: no limitations . Information obtained by: patient, family () and RN notes reviewed . History of Present Illness 78 year old M presents to the emergency department with the chief complaint of abdominal pain, described as severe and similar to prior episodes (feels like when he has had hernias in the past), Quality is described as stabbing, Patient reports no radiation. Patient started experiencing this hour(s) and it has been constant. No relieving factors improve symptom(s), No exacerbating factors reported . Patient notes loss of appetite and nausea/vomiting; denies chest pain, cough, fever/chills, rash and shortness of breath. Patient did receive the following treatments prior to arrival, none Related Data Home Medications Medication Instructions Recorded Confirmed acetaminophen 325 mg capsule 650 mg PO Q6H PRN fever or pain 05/10/19 02/15/23 (Tylenol) #30 caps aspirin 81 mg tablet,delayed 81 mg PO DAILY 09/02/20 02/15/23 release spironolactone 25 mg tablet 25 mg PO DAILY 11/22/20 02/15/23 cholecalciferol (vitamin D3) 50 50 mcg PO DAILY 07/07/21 02/15/23 mcg (2,000 unit) capsule (Vitamin D3) albuterol sulfate 90 mcg/actuation 1 - 2 puff inhalation Q6H PRN 09/12/21 02/15/23 aerosol inhaler (ProAir HFA) shortness of breath or wheezing #6.7 grams budesonide-formoterol HFA 160 2 puff inhalation BID #10.2 grams 11/03/21 02/15/23 mcg-4.5 mcg/actuation aerosol inhaler (Symbicort) furosemide 40 mg tablet 20 mg PO BID 12/12/21 02/15/23 Right AFO #1 ea 05/04/22 02/15/23 penicillin V potassium 500 mg 500 mg PO BID #180 tabs 09/21/22 02/15/23 tablet atorvastatin 80 mg tablet See Rx Instructions .Route 10/12/22 02/15/23 .COMPLEX #90 tabs losartan 100 mg tablet 100 mg PO DAILY #90 tab-caps 10/12/22 02/15/23 bimatoprost 0.01 % eye drops 1 drp ophthalmic (eye) DAILY 10/28/22 02/15/23 (Lumigan) lidocaine 5 % topical patch 1 patch topical DAILY #15 ea 12/01/22 02/15/23 bupropion HCl 150 mg tablet,12 hr 150 mg PO BID #180 tabs 12/24/22 02/15/23 sustained-release metformin 500 mg tablet,extended 1,000 mg PO BID #360 tabs 01/04/23 02/15/23 release 24 hr nitroglycerin 0.4 mg sublingual 0.4 mg sublingual DIRECTED #30 01/04/23 02/15/23 tablet tabs finasteride 5 mg tablet (Proscar) 5 mg PO HS #90 tabs 02/08/23 02/15/23 amlodipine 10 mg tablet 10 mg PO DAILY 02/15/23 02/15/23 Previous Rx's Medication Instructions Recorded acetaminophen 325 mg capsule 650 mg PO Q6H PRN fever or pain 05/10/19 (Tylenol) #30 caps albuterol sulfate 90 mcg/actuation 1 - 2 puff inhalation Q6H PRN 09/12/21 aerosol inhaler (ProAir HFA) shortness of breath or wheezing #6.7 grams budesonide-formoterol HFA 160 2 puff inhalation BID #10.2 grams 11/03/21 mcg-4.5 mcg/actuation aerosol inhaler (Symbicort) Right AFO #1 ea 05/04/22 penicillin V potassium 500 mg 500 mg PO BID #180 tabs 09/21/22 tablet atorvastatin 80 mg tablet See Rx Instructions .Route 10/12/22 .COMPLEX #90 tabs losartan 100 mg tablet 100 mg PO DAILY #90 tab-caps 10/12/22 lidocaine 5 % topical patch 1 patch topical DAILY #15 ea 12/01/22 bupropion HCl 150 mg tablet,12 hr 150 mg PO BID #180 tabs 12/24/22 sustained-release metformin 500 mg tablet,extended 1,000 mg PO BID #360 tabs 01/04/23 release 24 hr nitroglycerin 0.4 mg sublingual 0.4 mg sublingual DIRECTED #30 01/04/23 tablet tabs finasteride 5 mg tablet (Proscar) 5 mg PO HS #90 tabs 02/08/23 Allergies Allergy/AdvReac Type Severity Reaction Status Date / Time oxycodone AdvReac Intermediate He goes a Verified 01/04/23 09:47 little wacky General Stated Complaint: Abd Prob LOREN: 3 Review of Systems Constitutional Constitutional: Reports as per HPI, Denies chills, Denies fatigue, Denies fever(s) and Denies headache(s) ENT Ears, Nose, Mouth, and Throat: Denies headache(s) Cardiovascular Cardiovascular: Reports as per HPI, Denies chest pain and Denies dyspnea Respiratory Respiratory: Reports as per HPI, Denies cough and Denies dyspnea Gastrointestinal Gastrointestinal: Reports as per HPI Genitourinary Genitourinary: Denies system reviewed and no additional complaints, except as documented (patient denies any change in urinary habits) Musculoskeletal Musculoskeletal: Reports as per HPI and Denies back pain Integumentary/Breasts Skin/Breast: Reports as per HPI and Denies rash Neurologic Neurologic: Reports as per HPI and Denies headache(s) Endocrine Endocrine: Denies fatigue PFSH All Active Problems (Updated 02/22/23 @ 19:51 by CELIA Landis) Hernia (Chronic) Bilateral inguinal hernia without obstruction or gangrene (Acute) Rotator cuff arthropathy of left shoulder (Acute) subacromial corticosteroid injection 10/28/22 Depression (Chronic) Long-term RX Wellbutrin BPH (benign prostatic hyperplasia) (Chronic) RX Finasteride Primary hypertension (Chronic) Myocardial infarction (Chronic) X2 Glaucoma (Chronic) 09/05/19 [place] Diverticulosis (Chronic) 2019 colonoscopy Obesity (Chronic) Sinus node dysfunction (Chronic) [facility] [place]; stay off of BB Tubular adenoma (Chronic 10/04/08) Colonoscopy 10/04/15 & repeat 2019 (13!) Coronary artery disease (Chronic) [facility] [place] [employer] [place] 1998 with angina; cath in 1998 1-vessel dis Obstructive sleep apnea (Chronic) h/o CPAP; clausterphobic with masks so stopped using; then 100# weight loss; referred in 11/2019 but he declined COPD (chronic obstructive pulmonary disease) (Acute) Diabetes type 2, controlled (Chronic) Dx'ed in 1970s Medical History Anxiety and depression Bradycardia, sinus 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 conveyor monitor Cataracts, bilateral 09/05/19 [place] OS>>OD Epidermal inclusion cyst Hyperlipidemia Atorvastatin Lipoma of head Removed 04/2019 [place] Normochromic normocytic anemia Pancreatitis [facility] 05/2018 (mild) Rupture of right biceps tendon PT Small bowel obstruction [facility] 05/2018 Surgical History S/P colonoscopy (~05/02/19) 09/2015- [facility]- Tubular adenomas x2 05/2019--Brain x13 tubular adenomas S/P coronary artery stent placement 04/30/19 per pt he does not have a stent. 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 Pets and animals: Yes Sexually active: Yes Do you think of yourself as: straight/heterosexual Current gender identity: male What is your relationship status?: living with partner How often do you get together with friends or relatives?: twice per week Panel score (0-1 are the most socially isolated patients): 1 What type of physical activity do you participate in: walking Duration: > 90 minutes/day Frequency: 3-4 times per week Desirae/Faith: Episcopal Special desirae needs: No Seatbelt use: always Drive intox or ride w/intox team otr truck driver: No Do you feel safe at home: Yes Do you feel safe in your relationship?: Yes Additional Social history: at bedside Exam Const General: cooperative, uncomfortable, no acute distress, well developed and ill appearing acutely Nutritional Appearance: well nourished and overweight Orientation: alert and awake [facility] Head: normal to inspection Mouth: moist mucous membranes Resp Effort & Inspection: normal respiratory effort, able to speak in complete sentences and no respiratory distress Auscultation: clear to auscultation bilaterally, no rales, no rhonchi and no wheezes Cardio Rate: regular rate Rhythm: regular rhythm Heart Sounds: S1 normal and S2 normal GI Inspection: normal to inspection Palpation: no hepatosplenomegaly, guarding (at umbilical hernia), hernia umbilical (very firm and tender, no color change), no pulsatile masses, not rigid and tender periumbilically and with rebound tenderness; not at McBurney's point and Oliver's sign negative Back/Spine/Pelvis Back: no CVA tenderness Skin General skin exam: no rashes or lesions noted Trauma: no lacerations or abrasions Neuro General: patient alert and patient awake Cognition: normal cognition Speech: speech normal Gait: normal gait Extrem General: no joint enlargement, no pedal edema, no calf tenderness and other (2+ distal pulses) Course Vital Signs Vital signs: Vital Signs Temperature 36.6 C 02/14/23 20:47 Pulse 69 02/14/23 20:47 Respiratory Rate 20 02/14/23 20:47 Blood Pressure 183/98 H 02/14/23 20:47 Pulse Oximetry 98 02/14/23 20:47 Temperature 36.6 C 02/14/23 20:47 Temperature Source Tympanic 02/14/23 20:47 Pulse 69 02/14/23 20:47 Respiratory Rate 20 02/14/23 20:47 Respiratory Effort Normal 02/14/23 21:00 Blood Pressure 183/98 H 02/14/23 20:47 Pulse Oximetry 98 02/14/23 20:47 Pain Level 9 02/14/23 20:47
--- NOTE | 2023-02-14 21:15 | RT.EKG_ITS ---
APPROVED REPORT Exam: Resting ECG Reason for Exam: abdominal pain Patient Location: E HR:76 bpm ECG Measurements Heart Rate 76 AXIS CA 146 P 97 QRSd 178 QRS -44 QT 438 T 95 QTc 492 Conclusion Sinus rhythm...normal P axis, V-rate 60- 99 RBBB and LAFB...QRSd >120mS, axis(-40,240) Inferior infarct, acute...ST>0.10mV, T upright, II III aVF Normal sinus rhythm at a rate of 76 with bifascicular block. No acute injury pattern. Less artifact compared to prior. CA and QTc is within normal limits.
[2023-02-14 21:23] LABS: Abs Immature Grans 0.02 10^3/uL (0.0-0.06); Absolute Basophil Count 0.09 10^3/uL (0.0-0.2); Absolute Eosinophil Count 0.26 10^3/uL (0.0-0.7); Absolute Lymphocyte Count 1.44 10^3/uL (1.2-3.4); Absolute Monocyte Count 0.67 10^3/uL (0.1-0.8); Basophils % 1.1; Eosinophils % 3.3; HCT 43.6 % (40.0-50.0); HGB 15.1 g/dL (13.5-17.5); Immature Grans % 0.3; Lactate 1.3 mmol/L (0.6-1.4); Lymphocytes % 18.3; MCH 29.3 pg (27.0-33.0); MCHC 34.6 % (32.0-36.0); MCV 85 fL (80-95); MPV 10.1 fL (8.0-11.0); Monocytes % 8.5; Neutrophils % 68.5; Platelet Count 215 10^3/uL (130-400); RBC 5.15 10^6/uL (4.36-5.78); RDW 13.5 % (11.8-14.1); WBC 7.88 10^3/uL (4.4-10.8)
[2023-02-14] MEDS: MORPHine 10 MG/ML VIAL 4 MG IVP (21:27)
[2023-02-14] MEDS: Ondansetron 4 MG/2 ML VIAL IVP (21:28)
[2023-02-14] MEDS: Lactated Ringers 1,000 ML 250 ML IV (21:29)
[2023-02-14 21:42] LABS: ALT 22 U/L (16-63); AST 30 U/L (15-37); Albumin 4.2 g/dL (3.4-5.0); Alkaline Phosphatase 156 U/L (46-116); Anion Gap 10.2 mmol/L (3-11); BUN 21 mg/dL (7-18); Bilirubin, Total 0.7 mg/dL (0.2-1.0); CO2 27.8 mmol/L (21.0-32.0); CREATININE 1.1 mg/dL (0.70-1.30); Calcium 9.5 mg/dL (8.5-10.1); Chloride 101 mmol/L (98-107); Estimated GFR 68.71 (mL/min/1.73m2); Glucose 150 mg/dL (74-106); Lipase 69 U/L (16-77); Magnesium 1.5 mg/dL (1.8-2.4); Potassium 3.6 mmol/L (3.5-5.1); Sodium 139 mmol/L (136-145); Total Protein 7.7 g/dL (6.4-8.2); Troponin I < 50 ng/L (<or=60)
[2023-02-14] MEDS: Omnipaque 350 MG/ML 100 ML BTL IJ (21:55)
[2023-02-14] MEDS: Normal Saline - Diluent 50 ML VIAL IJ (21:55)
[2023-02-14] MEDS: Normal Saline Flush 10 ML SYR IVP (21:56)
--- NOTE | 2023-02-14 23:15 | DI.VRAD_ITS ---
PROCEDURE INFORMATION: Exam: CT Abdomen And Pelvis With Contrast Exam date and time: 02/14/2023 10:15 PM Age: 77 years old Clinical indication: Abdominal pain; Other: Severe abd pain; Prior surgery; Surgery date: 6+ months; Surgery type: Hernia repair, polyps removed from colon; Patient HX: Sever abd pain TECHNIQUE: Imaging protocol: Computed tomography of the abdomen and pelvis with contrast. Radiation optimization: All CT scans at this facility use at least one of these dose optimization techniques: automated exposure control; mA and/or kV adjustment per patient size (includes targeted exams where dose is matched to clinical indication); or iterative reconstruction. Contrast material: OMNIPAQUE 350; Contrast volume: 100 ml; Contrast route: INTRAVENOUS (IV); COMPARISON: CT Private^ROUTINE ABDOMEN PELVIS WITH CONTRAST (Adult) 05/29/2018 12:25 AM FINDINGS: Lungs: There is heterogeneous attenuation of the pulmonary parenchyma, consistent with air trapping from underlying small airways disease. Moderate atelectatic changes seen at the lung bases bilaterally. Liver: Normal. No mass. Gallbladder and bile ducts: There is a moderate amount of pericholecystic fluid. High attenuation material seen within the gallbladder lumen may represent sludge versus small stones acute cholecystitis is not excluded. Consider ultrasound if clinically warranted. Pancreas: There is mild pancreatic atrophy and fatty replacement. Spleen: Click no liverThe spleen is normal. An accessory splenule is present. Adrenal glands: The adrenal glands are normal. Kidneys and ureters: Low-attenuation lesions within the kidneys bilaterally consistent with simple renal cysts. Mild irregularity of the renal contours consistent with old scarring. No evidence of hydronephrosis, renal calculi or perinephric fluid collections. Stomach and bowel: There is distension of the small bowel with multiple air-fluid levels. The dilation of the small bowel shows transition at the level of the large right inguinal hernia and this likely represents at least a partial mechanical small bowel obstruction. Appendix: No evidence of appendicitis. Intraperitoneal space: Unremarkable. No free air. No significant fluid collection. Vasculature: The aorta demonstrates mild atherosclerotic calcification. The arterial peripheral vasculature demonstrates diffuse mild atherosclerotic calcification. The inferior venacava appears normal.The portal, mesenteric and splenic veins are patent. The stomach is distended with fluid and air. Lymph nodes: Unremarkable. No enlarged lymph nodes. Urinary bladder: Unremarkable as visualized. Reproductive: The prostate gland demonstrates calcification and moderate nonspecific enlargement. The seminal vesicles are normal. Bones/joints: The thoracolumbar spine demonstrates moderate degenerative changes at multiple levels.The lumbar spine demonstrates moderate degenerative changes. Soft tissues: There is a nonobstructing left inguinal hernia containing fat and possibly a small amount of mesentery. There is a the umbilical hernia containing a calcified thickened soft tissue. IMPRESSION: 1. There is distension of the small bowel with multiple air-fluid levels. The dilation of the small bowel shows transition at the level of the large right inguinal hernia and this likely represents at least a partial mechanical small bowel obstruction. 2. There is heterogeneous attenuation of the pulmonary parenchyma, consistent with air trapping from underlying small airways disease. 3. There is a moderate amount of pericholecystic fluid. High attenuation material seen within the gallbladder lumen may represent sludge versus small stones acute cholecystitis is not excluded. Consider ultrasound if clinically warranted. 4. There is a the umbilical hernia containing calcified thickened soft tissue. Dictated and Authenticated by: Luis Daniel Arzola MD. Ordering:DAI Velazco MD
--- NOTE | 2023-02-14 23:30 | ED.PROG_ITS ---
Date of service: 02/14/23 Time of Service: 23:31 Medical Decision Making I was asked to participate in this patient's care by his advanced practitioner. Please see her separate note for details. In brief this is a 77-year-old male with history of hernia status post repair with mesh. He had no signs of john ulation based on no skin changes at the hernia sac and a normal lactate. I attempted to reduce patient's hernia however it was incarcerated. Patient received morphine and ice and was in Trendelenburg position during attempted reduction which patient tolerated well which was unfortunately unsuccessful. Discharge Plan Discharge Details Chief Complaint: Abd Prob Primary Care Provider: Jessie Bose ED Provider: Mora Arzate Home Meds and New Rx's Prescriptions: No Action aspirin 81 mg tablet,delayed release (DR/EC) 81 mg PO DAILY budesonide-formoterol [Symbicort] 160-4.5 mcg/actuation HFA aerosol inhaler 2 puff Inhalation BID Qty: 10.2 11RF (DME) Right AFO See Rx Instructions .Route .MEDSUPPLY Qty: 1 0RF Rx Instructions: As directed penicillin V potassium 500 mg tablet 500 mg PO BID Qty: 180 3RF Rx Instructions: cellulitis prevention ([facility] [place]) Lumigan 0.01 % drops 1 drp ophthalmic (eye) DAILY nitroglycerin 0.4 mg tablet, sublingual 0.4 mg SUBLINGUAL DIRECTED Qty: 30 0RF metformin 500 mg tablet extended release 24 hr 1,000 mg PO BID Qty: 360 3RF Rx Instructions: ER formulation to prevent loose stool from IR spironolactone 25 mg tablet 25 mg PO DAILY albuterol sulfate [ProAir HFA] 90 mcg/actuation HFA aerosol inhaler 1 - 2 puff Inhalation Q6H PRN Qty: 6.7 2RF Rx Instructions: SOB/wheeze furosemide 40 mg tablet 40 mg PO BID losartan 100 mg tablet 100 mg PO DAILY Qty: 90 3RF amlodipine 10 mg tablet See Rx Instructions .ROUTE .COMPLEX Qty: 90 3RF Dose Instruction: TAKE ONE TABLET BY MOUTH EVERY DAY Rx Instructions: TAKE ONE TABLET BY MOUTH EVERY DAY atorvastatin 80 mg tablet See Rx Instructions .ROUTE .COMPLEX Qty: 90 3RF Dose Instruction: TAKE ONE TABLET BY MOUTH AT BEDTIME Rx Instructions: TAKE ONE TABLET BY MOUTH AT BEDTIME bupropion HCl 150 mg tablet sustained-release 12 hr 150 mg PO BID Qty: 180 3RF finasteride [Proscar] 5 mg tablet 5 mg PO HS Qty: 90 3RF acetaminophen [Tylenol] 325 mg capsule 650 mg PO Q6H PRN (Reason: fever or pain) Qty: 30 0RF cholecalciferol (vitamin D3) [Vitamin D3] 50 mcg (2,000 unit) Capsule 50 mcg PO DAILY lidocaine 5 % adhesive patch,medicated 1 patch topical DAILY Qty: 15 0RF Rx Instructions: leave on most painful area for up to 12 hrs
[2023-02-14] MEDS: ACETAMINOPHEN 1,000 MG/100 ML BTL 400 MG IVPB (23:41)
[2023-02-15] VITALS (15 sets, daily range): BP systolic 152–190; BP diastolic 76–102; PULSE 63–81; RESP 15–22; TEMP 36.4–37.1; O2SAT 93–100
--- NOTE | 2023-02-15 | DI.RAD_ITS ---
Exam(s) XR ABDOMEN FLAT PLATE EXAM: 2D digital imaging was performed. CLINICAL HISTORY: ? SBO. COMPARISON: Plain films performed earlier the same day, 10:49 a.m.. TECHNIQUE: Supine views of the abdomen performed. FINDINGS: Gastrografin introduced. Contrast is seen within the stomach and proximal to mid small bowel. There is dilatation of small bowel seen in the right lower quadrant. IMPRESSION: Contrast partially opacifies loops of small bowel at which appear dilated. DATA REPOSITORY: RADIATION DOSE DELIVERED:
--- NOTE | 2023-02-15 | DI.US_ITS ---
Exam(s) US ABDOMEN LIMITED EXAM: US ABDOMEN LIMITED CLINICAL HISTORY: ABD PAIN,? cholecystitis TECHNIQUE: Ultrasound abdomen performed using standard protocol. COMPARISON: CT CT ABDOMEN PELVIS W from 02/14/2023 FINDINGS: The exam is limited by bowel gas and body habitus. LIVER: Normal size. Somewhat obscured by bowel gas. The colon is located anterior to the liver on C T. GALLBLADDER: Multiple mobile stones. Mild wall thickening. No pericholecystic fluid identified. No specific tenderness over the gallbladder. BILIARY SYSTEM: No intrahepatic or extrahepatic biliary ductal dilation. Right kidney: No evidence of renal calculi. No evidence of hydronephrosis. No gross renal mass identi fied. PANCREAS: Obscured by bowel gas. ABDOMINAL AORTA AND IVC: Visualized portions normal caliber. ASCITES: None seen. IMPRESSION: Limited exam due to poor acoustic window and bowel gas. Cholelithiasis and mild gallbladder wall thickening. No pericholecystic fluid demonstrated. No bili ricardo dilatation. DATA REPOSITORY:
[2023-02-15 01:02] LABS: Troponin I < 50 ng/L (<or=60)
[2023-02-15] MEDS: Normal Saline Flush 10 ML SYR IVP (03:34)
[2023-02-15] MEDS: HYDROmorphone 2 MG/ML SYR 0.5 MG IVP (03:35)
[2023-02-15] MEDS: Ondansetron 4 MG/2 ML VIAL IVP ×2 (03:36→08:24)
--- NOTE | 2023-02-15 04:07 | DI.RAD_ITS ---
Exam(s) XR PORTABLE CHEST AP POST LINE EXAM: XR PORTABLE CHEST AP POST LINE CLINICAL HISTORY: NG tube placement TECHNIQUE: 2D digital imaging was performed. COMPARISON: CR,XR XR CHEST 2V PA LATERAL from 12/01/2022 FINDINGS: Exam limited by poor pulmonary inflation. Nasogastric tube is noted which projects in the stomach. LUNGS: Difficult to evaluate due to expiratory changes. No gross area of consolidation. No pleural abnormality seen. HEART: Normal size. AORTA: Normal diameter. BONES: Unremarkable for age. Soft tissues: Unremarkable. IMPRESSION: No acute findings. Satisfactory placement of NG tube. DATA REPOSITORY: RADIATION DOSE DELIVERED:
--- NOTE | 2023-02-15 04:53 | DI.VRAD_ITS ---
PROCEDURE INFORMATION: Exam: XR Chest Exam date and time: 02/15/2023 4:43 AM Age: 77 years old Clinical indication: Device placement; Patient HX: Ng tube placemnt TECHNIQUE: Imaging protocol: Radiologic exam of the chest. Views: 1 view. COMPARISON: CR XR CHEST 2V PA LATERAL 12/01/2022 7:56 PM FINDINGS: Tubes, catheters and devices: NG tube tip and side port are in the stomach. Lungs: No discernible focal airspace opacity. Pleural spaces: Unremarkable. No pleural effusion. No pneumothorax. Heart/Mediastinum: Unremarkable. No cardiomegaly. Diaphragm: Elevation of the right hemidiaphragm. Low lung volumes. Bones/joints: Unremarkable. IMPRESSION: NG tube tip and side port are in the stomach. Dictated and Authenticated by: Alton Sandhu MD. Ordering:MARY CARMEN Travis MD
--- NOTE | 2023-02-15 06:00 | HPE_ITS ---
Date of service: 02/15/23 Time of Service: 06:00 Assessment and Plan Assessment and plan (1) Abdominal pain: Status: Acute Assessment and plan: The exact source of his abdominal pain is unclear to me at this point. The small bowel dilation would suggest a partial small bowel obstruction, and I think the most likely source would be a right inguinal hernia. However, on exam, the right inguinal region is quite soft, certainly its not tender. And there is no changes in the skin overlying it. Clinically, it does not seem consistent with an incarcerated or strangulated inguinal hernia. Additionally, the pericholecystic fluid and elevated alk phos could indicate acute cholecystitis as a source of his pain. Again, however, he does not seem to have any tenderness in the area of the gallbladder. For now, we will continue with nasogastric tube decompression, and I will try Gastrografin challenge in an effort to rule out the diagnosis of bowel obstruction. Also get an ultrasound of the right upper quadrant to better evaluate the gallbladder. With a normal white blood cell count and no fever, I do not see benefit to adding antibiotics at this point, but we can certainly revisit that idea if anything changes. History of Present Illness History of Present Illness Chief Complaint: abdominal pain Narrative: Corona 77 years old. He comes to the emergency department with abdominal pain. She says it started yesterday. He has a little bit of difficulty describing the exact character, location, and nature of the discomfort that has been experiencing. He developed some nausea and vomiting while in the emergency department. Vital signs were stable, and there was no leukocytosis. Did have elevation in the alk phos. He underwent a CAT scan of the abdomen and pelvis that demonstrated dilation of the small intestine that could be consistent with an early partial small bowel obstruction. There are right and left inguinal hernias, the left is fat-containing, the right has some small intestine in it. There is also a little bit of pericholecystic fluid of uncertain etiology. Brought him into the hospital, and he had another episode of vomiting for which an NG tube was placed. Review of Systems Constitutional Constitutional: Denies body ache(s), Denies difficulty sleeping, Denies fever(s) and Reports poor appetite Eyes Eyes: Reports system reviewed and no additional complaints, except as documented ENT Ears, Nose, Mouth, and Throat: Reports system reviewed and no additional complaints, except as documented and Reports abnormal hearing Cardiovascular Cardiovascular: Denies chest pain and Denies dyspnea Respiratory Respiratory: Denies chest congestion, Reports cough and Denies dyspnea Gastrointestinal Gastrointestinal: Reports abdominal pain, Denies change in bowel habits, Denies change in stool character, Reports nausea and Reports vomiting Genitourinary Genitourinary: Denies difficulty urinating Musculoskeletal Musculoskeletal: Denies back pain and Denies myalgias Neurologic Neurologic: Reports abnormal hearing Psychiatric Psychiatric: Reports system reviewed and no additional complaints, except as documented Endocrine Endocrine: Reports system reviewed and no additional complaints, except as documented PFSH All Active Problems (Updated 02/15/23 @ 06:56 by Thaddeus Forrester MD) Abdominal pain (Acute) Rotator cuff arthropathy of left shoulder (Acute) subacromial corticosteroid injection 10/28/22 Depression (Chronic) Long-term RX Wellbutrin BPH (benign prostatic hyperplasia) (Chronic) RX Finasteride Primary hypertension (Chronic) Myocardial infarction (Chronic) X2 Glaucoma (Chronic) 09/05/19 [place] Diverticulosis (Chronic) 2019 colonoscopy Obesity (Chronic) Sinus node dysfunction (Chronic) [facility] Cardiolgy; stay off of BB Tubular adenoma (Chronic 10/04/08) Colonoscopy 10/04/15 & repeat 2019 (13!) Coronary artery disease (Chronic) [facility] 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; cath in 1998 1-vessel dis Obstructive sleep apnea (Chronic) h/o CPAP; clausterphobic with masks so stopped using; then 100# weight loss; referred in 11/2019 but he declined COPD (chronic obstructive pulmonary disease) (Acute) Diabetes type 2, controlled (Chronic) Dx'ed in 1970s Medical History Anxiety and depression Bradycardia, sinus 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 security monitor Cataracts, bilateral 09/05/19 [place] OS>>OD Epidermal inclusion cyst Hyperlipidemia Atorvastatin Lipoma of head Removed 04/2019 [place] Normochromic normocytic anemia Pancreatitis [facility] 05/2018 (mild) Rupture of right biceps tendon PT Small bowel obstruction [facility] 05/2018 Surgical History S/P colonoscopy (~05/02/19) 09/2015- [facility]- Tubular adenomas x2 05/2019--Brain x13 tubular adenomas S/P coronary artery stent placement 04/30/19 per pt he does not have a stent. 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 [employer] Pets and animals: Yes Sexually active: Yes Do you think of yourself as: straight/heterosexual Current gender identity: male What is your relationship status?: living with partner How often do you get together with friends or relatives?: twice per week Panel score (0-1 are the most socially isolated patients): 1 What type of physical activity do you participate in: walking Duration: > 90 minutes/day Frequency: 3-4 times per week Desirae/Jainism: Hindu Special desirae needs: No Seatbelt use: always 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 Do you feel safe at home: Yes Do you feel safe in your relationship?: Yes Additional Social history: at bedside Meds Allergies and Home Medications Allergies Allergy/AdvReac Type Severity Reaction Status Date / Time oxycodone AdvReac Intermediate He goes a Verified 01/04/23 09:47 little wacky Home Medications Medication Instructions Recorded Confirmed Type acetaminophen 325 mg capsule 650 mg PO Q6H PRN fever or pain 05/10/19 02/15/23 Rx (Tylenol) #30 caps aspirin 81 mg tablet,delayed 81 mg PO DAILY 09/02/20 02/15/23 History release spironolactone 25 mg tablet 25 mg PO DAILY 11/22/20 02/15/23 History cholecalciferol (vitamin D3) 50 50 mcg PO DAILY 07/07/21 02/15/23 History mcg (2,000 unit) capsule (Vitamin D3) albuterol sulfate 90 mcg/actuation 1 - 2 puff inhalation Q6H PRN 09/12/21 02/15/23 Rx aerosol inhaler (ProAir HFA) shortness of breath or wheezing #6.7 grams budesonide-formoterol HFA 160 2 puff inhalation BID #10.2 grams 11/03/21 02/15/23 Rx mcg-4.5 mcg/actuation aerosol inhaler (Symbicort) furosemide 40 mg tablet 20 mg PO BID 12/12/21 02/15/23 History Right AFO #1 ea 05/04/22 02/15/23 Rx penicillin V potassium 500 mg 500 mg PO BID #180 tabs 09/21/22 02/15/23 Rx tablet atorvastatin 80 mg tablet See Rx Instructions .Route 10/12/22 02/15/23 Rx .COMPLEX #90 tabs losartan 100 mg tablet 100 mg PO DAILY #90 tab-caps 10/12/22 02/15/23 Rx bimatoprost 0.01 % eye drops 1 drp ophthalmic (eye) DAILY 10/28/22 02/15/23 History ([place]) lidocaine 5 % topical patch 1 patch topical DAILY #15 ea 12/01/22 02/15/23 Rx bupropion HCl 150 mg tablet,12 hr 150 mg PO BID #180 tabs 12/24/22 02/15/23 Rx sustained-release metformin 500 mg tablet,extended 1,000 mg PO BID #360 tabs 01/04/23 02/15/23 Rx release 24 hr nitroglycerin 0.4 mg sublingual 0.4 mg sublingual DIRECTED #30 01/04/23 02/15/23 Rx tablet tabs finasteride 5 mg tablet (Proscar) 5 mg PO HS #90 tabs 02/08/23 02/15/23 Rx amlodipine 10 mg tablet 10 mg PO DAILY 02/15/23 02/15/23 History Exam Const General: cooperative and comfortable Orientation: alert HENMT Head: normal to inspection Eyes General: appearance normal, both eyes and all related structures Chest Chest: normal inspection of the chest Resp Auscultation: clear to auscultation bilaterally Cardio Rate: regular rate Rhythm: regular rhythm Heart Sounds: S1 normal and S2 normal GI Inspection: distended Palpation: soft, no guarding and nontender Percussion: tympanic to percussion Auscultation: hypoactive bowel sounds Other: The right and left inguinal hernias are quite difficult to feel. There are no changes in the skin. He is not tender. Skin General skin exam: no rashes or lesions noted Neuro General: patient alert Results Labs 02/14/23 21:17 02/14/23 21:17 Labs: Laboratory Results - last 24 hr 02/14/23 02/14/23 02/14/23 21:17 21:17 21:17 WBC 7.88 RBC 5.15 Hgb 15.1 Hct 43.6 MCV 85 MCH 29.3 MCHC 34.6 RDW 13.5 Plt Count 215 MPV 10.1 Immature Gran % 0.3 Neutrophils % 68.5 Lymphocytes % 18.3 Monocytes % 8.5 Eosinophils % 3.3 Basophils % 1.1 Nucleated RBC % 0.0 Absolute Neutrophils 5.40 Absolute Lymphocytes 1.44 Absolute Monocytes 0.67 Absolute Eosinophils 0.26 Absolute Basophils 0.09 VBG Lactate 1.3 Sodium 139 Potassium 3.6 Chloride 101 Carbon Dioxide 27.8 Anion Gap 10.2 BUN 21 H Creatinine 1.1 Est GFR (CKD-EPI 2020) 68.71 Glucose 150 H Calcium 9.5 Magnesium 1.5 L Total Bilirubin 0.7 AST 30 ALT 22 Alkaline Phosphatase 156 H Troponin I < 50 Total Protein 7.7 Albumin 4.2 Lipase 69 02/15/23 00:37 WBC RBC Hgb Hct MCV MCH MCHC RDW Plt Count MPV Immature Gran % Neutrophils % Lymphocytes % Monocytes % Eosinophils % Basophils % Nucleated RBC % Absolute Neutrophils Absolute Lymphocytes Absolute Monocytes Absolute Eosinophils Absolute Basophils VBG Lactate Sodium Potassium Chloride Carbon Dioxide Anion Gap BUN Creatinine Est GFR (CKD-EPI 2020) Glucose Calcium Magnesium Total Bilirubin AST ALT Alkaline Phosphatase Troponin I < 50 Total Protein Albumin Lipase Last Vital Signs Temp 98.7 F 02/15/23 00:57 Pulse 81 02/15/23 00:57 Resp 18 02/15/23 00:57 BP 186/92 H 02/15/23 00:57 Pulse Ox 97 02/15/23 00:57 Time Spent Time spent with Patient: 55-74 minutes Time was spent: preparing to see the patient(eg.review tests), obtaining and/or reviewing separately otained hiistory, ordering medications,tests, procedures, indepentently interpreting results and counseling the patient
[2023-02-15] MEDS: Losartan 50 MG TAB 100 MG PO (08:23)
[2023-02-15] MEDS: Furosemide 20 MG TAB PO ×2 (08:23→15:28)
[2023-02-15] MEDS: amLODIPine 10 MG TAB PO (08:23)
[2023-02-15] MEDS: Lidocaine 5% Patch 1 PATCH TP (08:24)
[2023-02-15] MEDS: Spironolactone 25 MG TAB PO (09:31)
[2023-02-15] MEDS: Lactated Ringers 1,000 ML 125 ML IV (09:32)
[2023-02-15 10:05] LABS: Anion Gap 9.1 mmol/L (3-11); BUN 19 mg/dL (7-18); CO2 25.9 mmol/L (21.0-32.0); Calcium 8.9 mg/dL (8.5-10.1); Chloride 102 mmol/L (98-107); Estimated GFR 77.04 (mL/min/1.73m2); Glucose 180 mg/dL (74-106); Magnesium 1.4 mg/dL (1.8-2.4); Potassium 4.1 mmol/L (3.5-5.1); Sodium 137 mmol/L (136-145)
[2023-02-15] MEDS: Pantoprazole 40 MG VIAL IVP (10:10)
--- NOTE | 2023-02-15 11:06 | DI.RAD_ITS ---
Exam(s) XR ABDOMEN FLAT UPRIGHT EXAM: 2D digital imaging was performed. CLINICAL HISTORY: gastrografin challenge. COMPARISON: CT CT ABDOMEN PELVIS W from 02/14/2023 CR,XR XR PORTABLE CHEST AP POST LINE from 02/15/2023 TECHNIQUE: Supine and upright views of the abdomen were performed. FINDINGS: There is residual contrast in the urinary bladder related to prior CT. The abnormally dilated loops of small bowel air-fluid levels. There is also large quantity of stool in the ascending colon. The descending and rectosigmoid show small amount of air and stool. Findings are consistent with a parti al small obstruction. IMPRESSION: Findings consistent with partial small bowel obstruction. DATA REPOSITORY: RADIATION DOSE DELIVERED:
[2023-02-15] MEDS: Gastrografin 120 ML BTL PO (11:10)
--- NOTE | 2023-02-15 12:29 | PDOC.CMIN ---
Date of service: 02/15/23 Time of Service: 12:29 Care Management Initial Assmt Initial Assessment REASON FOR HOSPITALIZATION:: hernia, mechanical obstruction PREVIOUS FUNCTIONAL STATUS/SOCIAL/FAMILY SUPPORTS:: Corona lives in [facility] with his , Nelia. They have adult children who live locally and are supportive, as well as many grandchildren. 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 He is independent with his ADL's, and continues to drive. CURRENT FUNCTIONAL STATUS:: Corona was lying in bed visiting with his and son when CM met with him. He was pleasant and engaged well in conversation, as did his family members. His stated that she can tell he feels better, as he is joking again. He reported that he is feeling ok, and is looking forward to returning home. He no longer has an NG tube placed, but remains NPO with IV fluids. CM will continue to follow. ADVANCE DIRECTIVES:: [place] AD on file; Nelia () listed as agent. Jerrod (son) listed as alternate agent. Has patient been provided with info about the portal/API?: Yes Did the patient sign up for the portal?: No CODE STATUS:: Full Code INSURANCE COVERAGE / FINANCIAL ISSUES:: [facility] MCR replacement CURRENT HOME/COMMUNITY SERVICES/EQUIPMENT:: None at this time. PRIMARY CARE PHYSICIAN:: Jessie Bose POTENTIAL DISCHARGE NEEDS:: Evaluations for further needs, follow up appointments. PATIENT/FAMILY EDUCATION NEEDS:: Review discharge instructions and limitations, discussion of self care needs including ask me three. ANTICIPATED BARRIERS TO DISCHARGE:: None identified at this time. TRANSPORTATION:: Via private vehicle by his . PLAN:: Anticipate Corona will return home once medically cleared. His will drive him home via private vehicle. He will follow up with his PCP and discharge plan of care. CM will continue to follow. PFSH All Active Problems (Updated 02/15/23 @ 13:09 by Monica De La Paz MD) Partial small bowel obstruction (Acute) Abdominal pain (Acute) Rotator cuff arthropathy of left shoulder (Acute) subacromial corticosteroid injection 10/28/22 Depression (Chronic) Long-term RX Wellbutrin BPH (benign prostatic hyperplasia) (Chronic) RX Finasteride Primary hypertension (Chronic) Myocardial infarction (Chronic) X2 Glaucoma (Chronic) 09/05/19 [place] Diverticulosis (Chronic) 2019 colonoscopy Obesity (Chronic) Sinus node dysfunction (Chronic) [facility] Cardiolgy; stay off of BB Tubular adenoma (Chronic 10/04/08) Colonoscopy 10/04/15 & repeat 2019 (13!) Coronary artery disease (Chronic) [facility]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; cath in 1998 1-vessel dis Obstructive sleep apnea (Chronic) h/o CPAP; clausterphobic with masks so stopped using; then 100# weight loss; referred in 11/2019 but he declined COPD (chronic obstructive pulmonary disease) (Acute) Diabetes type 2, controlled (Chronic) Dx'ed in 1970s Medical History Anxiety and depression Bradycardia, sinus 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 Pets and animals: Yes Sexually active: Yes Do you think of yourself as: straight/heterosexual Current gender identity: male What is your relationship status?: living with partner How often do you get together with friends or relatives?: twice per week Panel score (0-1 are the most socially isolated patients): 1 What type of physical activity do you participate in: walking Duration: > 90 minutes/day Frequency: 3-4 times per week Desirae/Confucianism: Episcopalian Special desirae needs: No Seatbelt use: always 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
--- NOTE | 2023-02-15 13:05 | W.PM.PROGNOT ---
Date of Service Date of service: 02/15/23 Time of Service: 13:05 Assessment and Plan Assessment and plan (1) Abdominal pain: Status: Acute Assessment and plan: On exam this afternoon the patient did not have any abdominal pain. Both his inguinal hernias are large but are both reducible. (2) Partial small bowel obstruction: Status: Acute Assessment and plan: Gastrografin study shows a partial small bowel obstruction. The Gastrografin has not mated to the large intestine after an hour. There is a large amount of stool within the ascending colon. There is also air within the colon. Will await the x-ray from 8 hours as well as 1 from tomorrow morning. He does not have an acute abdomen at this time so I do not think it is urgent that he go to the operating room. Will keep him n.p.o. with IV fluids and clinically follow him. Subjective Subjective Interval history since last seen: Mr Romo is a 77-year-old gentleman who was admitted last night with abdominal pain. CT scan was read as having a transition zone and large inguinal hernias with bowel within it. The bowel was normal. He also had some fat which is calcified above his umbilicus. He had a prior laparoscopic umbilical hernia repair by Dr. Kaufman. The pain that he complains is more lower abdomen right now. He did have nausea and vomiting last night and had an NG tube placed. He had 450 cc out of the NG tube. He then pulled the tube out this morning. He denies any nausea at this time. He has been afebrile. He had an ultrasound done to look at his gallbladder. They found the gallbladder wall to be slightly thickened and there were some stones. No pericholecystic fluid on the ultrasound today. Abdominal x-ray shows some dilated loops of bowel which are abnormal. There is a large amount of stool in the ascending colon as well as air. The obstruction is therefore partial. He did drink some Gastrografin and we will see if that moves through over the next day. Exam Const General: cooperative, comfortable and no acute distress Orientation: alert and oriented x3 Resp Effort & Inspection: normal respiratory effort Auscultation: clear to auscultation bilaterally Cardio Rate: regular rate Rhythm: regular rhythm GI Inspection: normal to inspection Palpation: soft, no hepatosplenomegaly, hernia (reducible bilateral inguinal hernias), nontender and other (calcified fat at previous hernia site) Auscultation: hypoactive bowel sounds Objective Last Vital Signs Temp 97.7 F 02/15/23 07:53 Pulse 75 02/15/23 07:53 Resp 16 02/15/23 07:53 BP 178/102 H 02/15/23 07:53 Pulse Ox 100 02/15/23 07:53 Laboratory Results - last 24 hr 02/14/23 02/14/23 02/14/23 21:17 21:17 21:17 WBC 7.88 RBC 5.15 Hgb 15.1 Hct 43.6 MCV 85 MCH 29.3 MCHC 34.6 RDW 13.5 Plt Count 215 MPV 10.1 Immature Gran % 0.3 Neutrophils % 68.5 Lymphocytes % 18.3 Monocytes % 8.5 Eosinophils % 3.3 Basophils % 1.1 Nucleated RBC % 0.0 Absolute Neutrophils 5.40 Absolute Lymphocytes 1.44 Absolute Monocytes 0.67 Absolute Eosinophils 0.26 Absolute Basophils 0.09 VBG Lactate 1.3 Sodium 139 Potassium 3.6 Chloride 101 Carbon Dioxide 27.8 Anion Gap 10.2 BUN 21 H Creatinine 1.1 Est GFR (CKD-EPI 2020) 68.71 Glucose 150 H Calcium 9.5 Magnesium 1.5 L Total Bilirubin 0.7 AST 30 ALT 22 Alkaline Phosphatase 156 H Troponin I < 50 Total Protein 7.7 Albumin 4.2 Lipase 69 02/15/23 02/15/23 00:37 09:45 WBC RBC Hgb Hct MCV MCH MCHC RDW Plt Count MPV Immature Gran % Neutrophils % Lymphocytes % Monocytes % Eosinophils % Basophils % Nucleated RBC % Absolute Neutrophils Absolute Lymphocytes Absolute Monocytes Absolute Eosinophils Absolute Basophils VBG Lactate Sodium 137 Potassium 4.1 Chloride 102 Carbon Dioxide 25.9 Anion Gap 9.1 BUN 19 H Creatinine 1.0 Est GFR (CKD-EPI 2020) 77.04 Glucose 180 H Calcium 8.9 Magnesium 1.4 L Total Bilirubin AST ALT Alkaline Phosphatase Troponin I < 50 Total Protein Albumin Lipase Time Spent with Patient Time Spent with Patient: 25-34 minutes Time was spent: preparing to see the patient(eg.review tests), obtaining and/or reviewing separately otained hiistory, ordering medications,tests, procedures, indepentently interpreting results and counseling the patient
[2023-02-15] MEDS: MAGNESIUM SULFATE 2 GM/50 ML BAG IVPB (15:28)
--- NOTE | 2023-02-15 19:00 | DI.RAD_ITS ---
Exam(s) XR ABDOMEN FLAT PLATE EXAM: 2D digital imaging was performed. CLINICAL HISTORY: gastrografin (8 hours afteR). COMPARISON: CR XR ABDOMEN FLAT PLATE from 02/15/2023 12:20 p.m. TECHNIQUE: Supine views of the abdomen performed. FINDINGS: Exam is labeled 8 hours There are multiple dilated loops small bowel which are filled with contrast. Contrast is seen extend ing into the loop of bowel which extends into the large right inguinal hernia. This loop of bowel do es not appear abnormally dilated. Contrast is also noted throughout the colon extending down to the level of the rectum. IMPRESSION: Contrast is seen through to the level of the rectum. There is mild proximal and mid small bowel dila tation without identified able transition point on this exam. Loop of bowel in right inguinal hernia appears nonobstructing. DATA REPOSITORY: RADIATION DOSE DELIVERED:
[2023-02-15] MEDS: Budesonide/Formoterol 160/4.5 6 GM 60 PUFF INH IH (19:26)
--- NOTE | 2023-02-15 19:34 | DI.VRAD_ITS ---
PROCEDURE INFORMATION: Exam: XR Abdomen Exam date and time: 02/15/2023 7:12 PM Age: 77 years old Clinical indication: Other: Gastrograffin challenge 8 hr picture; Patient HX: Gastrograffin given at 1110 am 02/15/23, 1 hr, and 8hr pictures needed. TECHNIQUE: Imaging protocol: Radiologic exam of the abdomen. Views: Frontal supine view of the abdomen. 1 View. COMPARISON: CR XR ABDOMEN FLAT PLATE 02/15/2023 12:20 PM FINDINGS: Gastrointestinal tract: Gastrografin contrast visualized throughout the small and large bowel, to the level of the rectum. No obstruction. Multiple loops of mildly dilated, gas and contrast filled small bowel, likely ileus. Bones/joints: Single loop of contrast filled small bowel projects into the right ilium region, compatible with hernia. IMPRESSION: 1. Gastrografin contrast visualized throughout the small and large bowel, to the level of the rectum. No obstruction. 2. Single loop of contrast filled small bowel projects into the right ilium region, compatible with hernia. No evidence of associated acute complications. 3. Multiple loops of mildly dilated, gas and contrast filled small bowel, likely ileus. Dictated and Authenticated by: Ramos Godfrey MD. Ordering:JORDY Anderson MD
[2023-02-15] MEDS: Bimatoprost 0.01% 2.5 ML BTL OU (20:42)
[2023-02-15] MEDS: Lidocaine Patch Removal 1 EACH TP (20:43)
[2023-02-16] VITALS (9 sets, daily range): BP systolic 146–176; BP diastolic 72–90; PULSE 62–76; RESP 16–18; TEMP 36.5–36.7; O2SAT 92–97
[2023-02-16] MEDS: Lactated Ringers 1,000 ML 125 ML IV ×2 (02:37→11:22)
[2023-02-16] MEDS: Ondansetron 4 MG/2 ML VIAL IVP (04:58)
[2023-02-16] MEDS: HYDROmorphone 2 MG/ML SYR 0.5 MG IVP (04:58)
[2023-02-16] MEDS: Normal Saline Flush 10 ML SYR IVP (04:59)
[2023-02-16 06:49] LABS: Anion Gap 9.1 mmol/L (3-11); BUN 16 mg/dL (7-18); CO2 26.9 mmol/L (21.0-32.0); Calcium 8.6 mg/dL (8.5-10.1); Chloride 105 mmol/L (98-107); Estimated GFR 77.04 (mL/min/1.73m2); Glucose 122 mg/dL (74-106); Magnesium 1.7 mg/dL (1.8-2.4); Potassium 3.5 mmol/L (3.5-5.1); Sodium 141 mmol/L (136-145)
[2023-02-16] MEDS: Budesonide/Formoterol 160/4.5 6 GM 60 PUFF INH IH ×2 (08:30→19:37)
--- NOTE | 2023-02-16 09:23 | DI.RAD_ITS ---
Exam(s) XR ABDOMEN FLAT PLATE EXAM: 2D digital imaging was performed. CLINICAL HISTORY: f/u gastrografin. COMPARISON: CR,XR XR ABDOMEN FLAT PLATE from 02/15/20231912 TECHNIQUE: Supine views of the abdomen performed. FINDINGS: The majority of the small bowel has cleared of the administered oral contrast. Contrast remains pres ent in the colon. Mildly dilated proximal loops of small bowel remain present. IMPRESSION: Mild proximal small bowel dilatation. The majority of the contrast is passed through to the colon. DATA REPOSITORY: RADIATION DOSE DELIVERED:
--- NOTE | 2023-02-16 09:30 | RT.EKG_ITS ---
APPROVED REPORT Exam: Resting ECG Reason for Exam: bradycardia and pauses Patient Location: I HR:66 bpm ECG Measurements Heart Rate 66 AXIS MN 161 P 83 QRSd 161 QRS -52 QT 450 T 31 QTc 472 Conclusion Sinus rhythm...normal P axis, V-rate 50- 99 RBBB and LAFB...QRSd >120mS, axis(-40,240)
[2023-02-16] MEDS: Losartan 50 MG TAB 100 MG PO (09:36)
[2023-02-16] MEDS: amLODIPine 10 MG TAB PO (09:36)
[2023-02-16] MEDS: Furosemide 20 MG TAB PO ×2 (09:36→15:31)
[2023-02-16] MEDS: Lidocaine 5% Patch 1 PATCH TP (09:37)
[2023-02-16] MEDS: Pantoprazole 40 MG VIAL IVP (09:38)
--- NOTE | 2023-02-16 14:55 | W.PM.PROGNOT ---
Date of Service Date of service: 02/16/23 Time of Service: 14:55 Assessment and Plan Assessment and plan (1) Partial small bowel obstruction: Status: Acute Assessment and plan: -resolved -start clears. ADAT -probable d/c in am and than bring in as an outpt for elective surg repair vs continued observation. (2) Bilateral inguinal hernia without obstruction or gangrene: Status: Acute (3) BPH (benign prostatic hyperplasia): Status: Chronic Qualifiers: Lower urinary tract symptom presence: symptoms absent Qualified Code(s): N40.0 - Benign prostatic hyperplasia without lower urinary tract symptoms (4) Primary hypertension: Status: Chronic (5) Myocardial infarction: Status: Chronic (6) Glaucoma: Status: Chronic (7) Sinus node dysfunction: Status: Chronic (8) Coronary artery disease: Status: Chronic Qualifiers: Coronary Disease-Associated Artery/Lesion type: unspecified vessel or lesion type [place] vs. transplanted heart: [place] heart Associated angina: with stable angina Qualified Code(s): I25.118 - Atherosclerotic heart disease of [place] coronary artery with other forms of angina pectoris (9) Obstructive sleep apnea: Status: Chronic (10) COPD (chronic obstructive pulmonary disease): Status: Acute Qualifiers: COPD type: emphysema Emphysema type: unspecified Qualified Code(s): J43.9 - Emphysema, unspecified (11) Diabetes type 2, controlled: Status: Chronic Qualifiers: Diabetes mellitus snf insulin use: without snf use Diabetes mellitus complication status: without complication Qualified Code(s): E11.9 - Type 2 diabetes mellitus without complications (12) Bradycardia, sinus: Subjective Subjective Interval history since last seen: Pt is doing well. no headaches. No CP or SOB. no productive cough. no dysuria. no leg pain or swelling. He didn't know if he had breakfast today. He couldn't tell me what hernia he had repaired in the past. (he had a laprascopic umbilical hernia). He has never had inguinal hernias done. The case was reviewed with anesthesia at [facility]. They do feel he is an acceptable candidate for anesthesia at [facility] At this time we will feed him and see if he tolerates p.o.'s. If he does well then he can be discharged tomorrow and come back as a outpatient for bilateral inguinal hernia repair. Exam Const General: cooperative and comfortable Orientation: oriented to person and oriented to place Other: PHYSICAL EXAM GENERAL APPEARANCE: Alert, healthy appearance, oriented, x 3,? in no acute distress HYDRATION: Well hydrated HEAD, EYES, EARS, NECK, THROAT: Head is normocephalic, pupils equal, round, reactive to light and accommodation, ocular movement intact, sclera clear and no jaundice. ?Dentition-poor LUNGS: normal respiration/normal chest excursion. ?Clear to auscultation bilaterally. ?No wheeze. ?HEART: Regular rate and rhythm. no murmurs ABDOMEN: soft and non-tender to palpation.? Normal bowel sounds.? bilateral inguinal hernias are soft and reducible today. He has not had any abdominal pain. He does have good bowel sounds. Objective Last Vital Signs Temp 36.6 C 02/16/23 11:18 Pulse 67 02/16/23 11:18 Resp 16 02/16/23 11:18 BP 168/90 H 02/16/23 11:18 Pulse Ox 95 02/16/23 11:18 Laboratory Results - last 24 hr 02/16/23 05:45 Sodium 141 Potassium 3.5 Chloride 105 Carbon Dioxide 26.9 Anion Gap 9.1 BUN 16 Creatinine 1.0 Est GFR (CKD-EPI 2020) 77.04 Glucose 122 H Calcium 8.6 Magnesium 1.7 L Time Spent with Patient Time Spent with Patient: 25-34 minutes Time was spent: preparing to see the patient(eg.review tests), obtaining and/or reviewing separately otained hiistory, ordering medications,tests, procedures, referring, communicating with other health rn progressive care, indepentently interpreting results, counseling the patient and care coordination
[2023-02-16] MEDS: Insulin Aspart 300 UNITS/3 ML PEN SC (18:05)
--- NOTE | 2023-02-16 19:05 | PDOC.CMPRO ---
Date of service: 02/16/23 Time of Service: 19:05 Care Management Progress Note Progress Note Text Progress Note Text: S/O: Corona was lying in bed when CM met with him. His was in the room visiting. Corona stated that he saw the provider earlier, but was not sure of his plan. CM reviewed the plan with MARY CHAIDEZ, and reviewed the report, which state that his diet will be advanced as tolerated, and he will likely be ready for discharge tomorrow, if he is able to tolerate a diet. Corona's asked about resources for food, as groceries have become so expensive, and it has been difficult for them to stretch food out to last the month. CM suggested MOW, which they declined. CM provided a list of local resources to help with food insecurity. His stated that she will call [facility] for MOW if she changes her mind. CM will continue to follow. A: Corona is a 77 year old male admitted to [facility] on 02/14/23 for hernia, mechanical obstruction. P: ?Anticipate Corona will return home once medically cleared. His will drive him home via private vehicle. He will follow up with his PCP and discharge plan of care. CM will continue to follow.
[2023-02-16] MEDS: Lidocaine Patch Removal 1 EACH TP (20:23)
[2023-02-16] MEDS: Bimatoprost 0.01% 2.5 ML BTL OU (20:23)
[2023-02-17 07:13] VITALS: PULSE 60
[2023-02-17 07:16] VITALS: BP 169/86; PULSE 62; TEMP 35.9; O2SAT 95
[2023-02-17 07:20] LABS: BUN 11 mg/dL (7-18); Chloride 103 mmol/L (98-107); Estimated GFR 77.04 (mL/min/1.73m2); Glucose 129 mg/dL (74-106); Magnesium 1.4 mg/dL (1.8-2.4); Potassium 3.1 mmol/L (3.5-5.1); Sodium 140 mmol/L (136-145)
[2023-02-17] MEDS: amLODIPine 10 MG TAB PO (07:45)
[2023-02-17] MEDS: Furosemide 20 MG TAB PO (07:45)
[2023-02-17] MEDS: Pantoprazole 40 MG VIAL IVP (07:46)
[2023-02-17] MEDS: Losartan 50 MG TAB 100 MG PO (07:46)
[2023-02-17] MEDS: Normal Saline Flush 10 ML SYR IVP (07:47)
--- NOTE | 2023-02-17 07:53 | W.PM.PROGNOT ---
Date of Service Date of service: 02/17/23 Time of Service: 07:53 Assessment and Plan Assessment and plan (1) Partial small bowel obstruction: Status: Acute Assessment and plan: Resolution of partial small bowel obstruction. Discharged home with follow-up instructions. Outpatient follow-up next week Subjective Subjective Interval history since last seen: He continues to feel improvement every day. He has been eating and drinking without any pain or discomfort today. Exam GI Other: Abdomen soft, nontender, nondistended. Objective Last Vital Signs Temp 96.6 F L 02/17/23 07:16 Pulse 62 02/17/23 07:16 Resp 18 02/16/23 22:22 BP 169/86 H 02/17/23 07:16 Pulse Ox 95 02/17/23 07:16 Laboratory Results - last 24 hr 02/17/23 06:36 Sodium 140 Potassium 3.1 L Chloride 103 Carbon Dioxide 30.0 Anion Gap 7.0 BUN 11 Creatinine 1.0 Est GFR (CKD-EPI 2020) 77.04 Glucose 129 H Calcium 9.0 Magnesium 1.4 L Time Spent with Patient Time Spent with Patient: <25 minutes Time was spent: preparing to see the patient(eg.review tests) and counseling the patient
[2023-02-17] MEDS: Budesonide/Formoterol 160/4.5 6 GM 60 PUFF INH IH (08:26)
[2023-02-17 11:08] VITALS: BP 124/72; PULSE 62; TEMP 36.4; O2SAT 95
--- NOTE | 2023-02-17 12:52 | W.PM.DS.N ---
Date of service: 02/17/23 Time of Service: 12:52 DS: Diagnosis Discharge Diagnosis (1) Partial small bowel obstruction: Status: Acute (2) Bilateral inguinal hernia without obstruction or gangrene: Status: Acute (3) BPH (benign prostatic hyperplasia): Status: Chronic (4) Primary hypertension: Status: Chronic (5) Myocardial infarction: Status: Chronic (6) Glaucoma: Status: Chronic (7) Sinus node dysfunction: Status: Chronic (8) Coronary artery disease: Status: Chronic (9) Obstructive sleep apnea: Status: Chronic (10) COPD (chronic obstructive pulmonary disease): Status: Acute (11) Diabetes type 2, controlled: Status: Chronic (12) Bradycardia, sinus: Discharge Plan Disposition Condition: Good Discharge Details Reason For Visit: Hernia, Mechanical Obstruction Admit Date/Time: 02/14/23 23:30 Admit Provider: Thaddeus Forrester Attending Provider: Thaddeus Forrester Primary Care Provider: Jessie Bose Hospital Course Hospital Course: Corona 77 years old, and he comes to the emergency department with nausea vomiting abdominal pain. He was admitted after CAT scan raise the possibility of an acute partial small bowel obstruction. Nasogastric tube was placed, and he underwent a Gastrografin challenge, where contrast was seen to pass into the large intestine as his symptoms resolved. By the afternoon of the , he was tolerating a diet without any discomfort. He was discharged home with follow-up instructions. Home Meds and New Rx's Prescriptions: Continued aspirin 81 mg tablet,delayed release (DR/EC) 81 mg PO DAILY budesonide-formoterol [Symbicort] 160-4.5 mcg/actuation HFA aerosol inhaler 2 puff Inhalation BID Qty: 10.2 11RF penicillin V potassium 500 mg tablet 500 mg PO BID Qty: 180 3RF Rx Instructions: cellulitis prevention ([facility] ID) Lumigan 0.01 % drops 1 drp ophthalmic (eye) DAILY nitroglycerin 0.4 mg tablet, sublingual 0.4 mg SUBLINGUAL DIRECTED Qty: 30 0RF metformin 500 mg tablet extended release 24 hr 1,000 mg PO BID Qty: 360 3RF Rx Instructions: ER formulation to prevent loose stool from IR spironolactone 25 mg tablet 25 mg PO DAILY albuterol sulfate [ProAir HFA] 90 mcg/actuation HFA aerosol inhaler 1 - 2 puff Inhalation Q6H PRN Qty: 6.7 2RF Rx Instructions: SOB/wheeze furosemide 40 mg tablet 20 mg PO BID Rx Instructions: take 20 mg (1/2 tab) BID losartan 100 mg tablet 100 mg PO DAILY Qty: 90 3RF atorvastatin 80 mg tablet See Rx Instructions .ROUTE .COMPLEX Qty: 90 3RF Dose Instruction: TAKE ONE TABLET BY MOUTH AT BEDTIME Rx Instructions: TAKE ONE TABLET BY MOUTH AT BEDTIME bupropion HCl 150 mg tablet sustained-release 12 hr 150 mg PO BID Qty: 180 3RF finasteride [Proscar] 5 mg tablet 5 mg PO HS Qty: 90 3RF acetaminophen [Tylenol] 325 mg capsule 650 mg PO Q6H PRN (Reason: fever or pain) Qty: 30 0RF lidocaine 5 % adhesive patch,medicated 1 patch topical DAILY Qty: 15 0RF Patient Comments: apply to left shoulder Rx Instructions: leave on most painful area for up to 12 hrs amlodipine 10 mg tablet 10 mg PO DAILY Rx Instructions: TAKE ONE TABLET BY MOUTH EVERY DAY No Action (DME) Right AFO See Rx Instructions .Route .MEDSUPPLY Qty: 1 0RF Rx Instructions: As directed cholecalciferol (vitamin D3) [Vitamin D3] 50 mcg (2,000 unit) Capsule 50 mcg PO DAILY Discharge Instructions Instructions: Bowel Obstruction (DC) Additional Instructions: Corona, you were admitted to the hospital with abdominal discomfort and nausea with vomiting. Your workup showed that you had a partial blockage of your intestine. You were given a medication called Gastrografin. This helps to see the intestinal tract with x-rays, and we were able to see that the dye passed all the way through to your large intestine, and out the other side. Incidentally, you also have hernias on both the right and left sides of your groins. They have been there for some time. I do not believe they were the source of your bowel obstruction. Referrals: Elly Cordon DO [OSTEOPATHIC DOCTOR] - (February 25 at 10:30 AM) Activity:: Activity as Tolerated Diet:: As Tolerated DS: Summary Time Spent with Patient providing and/or coordinating discharge services: Greater than 30 minutes Status at Discharge Functional status at discharge: independent ambulation Overall status at discharge: patient is back to baseline Mental Status: mental status grossly normal Speech and Movement: speech and movement normal Mood: congruent mood Affect: normal affect Exam GI Other: Abdomen is soft, nondistended, and nontender. Psych Mental Status: mental status grossly normal Speech and Movement: speech and movement normal Mood: congruent mood Affect: normal affect DS: Data Vitals/I&O Vitals and I&O: Vital Signs Temperature 97.5 F L 02/17/23 11:08 Temperature Source Tympanic 02/17/23 11:08 Pulse 62 02/17/23 11:08 Pulse Rhythm Regular 02/17/23 09:01 Pulse 77 02/15/23 00:38 Respiratory Rate 18 02/16/23 22:22 Respiratory Effort Normal, Non-Labored 02/17/23 09:01 Respiratory Depth Normal 02/17/23 09:01 Respiratory Pattern Normal 02/17/23 09:01 Blood Pressure 124/72 02/17/23 11:08 Blood Pressure Mean 115 02/15/23 00:38 Pulse Oximetry 95 02/17/23 11:08 Oxygen Delivery Method Room Air 02/17/23 11:08 Oxygen Flow Rate 0 02/17/23 11:08 Pain Level 0 02/17/23 09:01 Intake & Output 02/16/23 02/17/23 02/17/23 23:59 11:59 23:59 Intake Total 345.833 / 1345.833 0 / 0 Output Total 600 / 900 Balance -254.167 / 445.833 0 / 0 Intake: IV 345.833 / 1345.833 0 / 0 Output: Urine 600 / 900 Other: Urine Color Yellow Urine Appearance Clear Stool Size Small Stool Characteristics Soft Formed Brown Data Completed and Pending Labs on day of discharge: Labs from last 24 hours 02/17/23 06:36 Sodium 140 Potassium 3.1 L Chloride 103 Carbon Dioxide 30.0 Anion Gap 7.0 BUN 11 Creatinine 1.0 Est GFR (CKD-EPI 2020) 77.04 Glucose 129 H Calcium 9.0 Magnesium 1.4 L PFSH All Active Problems Bilateral inguinal hernia without obstruction or gangrene (Acute) Partial small bowel obstruction (Acute) Abdominal pain (Acute) Rotator cuff arthropathy of left shoulder (Acute) subacromial corticosteroid injection 10/28/22 Depression (Chronic) Long-term RX Wellbutrin BPH (benign prostatic hyperplasia) (Chronic) RX Finasteride Primary hypertension (Chronic) Myocardial infarction (Chronic) X2 Glaucoma (Chronic) 09/05/19 [place] Diverticulosis (Chronic) 2019 colonoscopy Obesity (Chronic) Sinus node dysfunction (Chronic) [facility] Cardiolgy; stay off of BB Tubular adenoma (Chronic 10/04/08) Colonoscopy 10/04/15 & repeat 2019 (13!) Coronary artery disease (Chronic) [facility] [employer] [place] 1998 with angina; cath in 1998 1-vessel dis Obstructive sleep apnea (Chronic) h/o CPAP; clausterphobic with masks so stopped using; then 100# weight loss; referred in 11/2019 but he declined COPD (chronic obstructive pulmonary disease) (Acute) Diabetes type 2, controlled (Chronic) Dx'ed in Medical History Anxiety and depression Bradycardia, sinus 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 quality assurance monitor chassis Cataracts, bilateral 09/05/19 [place] OS>>OD Epidermal inclusion cyst Hyperlipidemia Atorvastatin Lipoma of head Removed 04/2019 [place] Normochromic normocytic anemia Pancreatitis [facility] 05/2018 (mild) Rupture of right biceps tendon PT Small bowel obstruction [facility] 05/2018 Surgical History S/P colonoscopy (~05/02/19) 09/2015- [facility]- Tubular adenomas x2 05/2019--Brain x13 tubular adenomas S/P coronary artery stent placement 04/30/19 per pt he does not have a stent. 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 Adopted: No Caregiver/Support person: Yes Foster care: No Household members: significant other and family Housing: house Number of Children: 5 number of grandchildren: 15 Communication Needs: Hard of Hearing and Corrective Lenses Education Level: other Details: middle school Do you need help understanding health information?: Rarely current occupation: Retired-[employer] Pets and animals: Yes Sexually active: Yes Do you think of yourself as: straight/heterosexual Current gender identity: male What is your relationship status?: living with partner How often do you get together with friends or relatives?: twice per week Panel score (0-1 are the most socially isolated patients): 1 What type of physical activity do you participate in: walking Duration: > 90 minutes/day Frequency: 3-4 times per week Desirae/Confucianist: Alevism Special desirae needs: No Seatbelt use: always Drive intox or ride w/intox courier delivery driver: No Do you feel safe at home: Yes Do you feel safe in your relationship?: Yes Additional Social history: at bedside Time Spent with Patient Time Spent with Patient: 45-69 minutes Time was spent: preparing to see the patient(eg.review tests), counseling the patient and care coordination
[2023-02-17] MEDS: POTASSIUM CHLORIDE 20 MEQ, POTASSIUM CHLORIDE 10 MEQ 30 MEQ PO (13:18)
[2023-02-17 13:35] VITALS: PULSE 58
--- NOTE | 2023-02-17 13:58 | PDOC.CMDIS ---
Date of service: 02/17/23 Time of Service: 13:58 LACE Index Scoring Tool Questions: Length of Stay (in days): 3 Was the patient admitted via the E.D.?: Yes Comorbidities: Previous M.I., Diabetes w/o Complication and Chronic Pulmonary Disease E.D. Visits: 1 Answers: Total Score: 12 Risk of Readmission: High Risk Care Management Discharge Plan Reason for Hospitalization: hernia, mechanical obstruction Discharge Plan: Corona will return home with no new services. His will drive him home via private vehicle. He will follow up with surgical services and his discharge plan of care. He is happy to be going home. Patient/Family Education Needs: Review discharge instructions and limitations, discussion of self care needs including ask me three.
== END 2023-02-17 13:42 | disposition home or self-care (01) | DRG 390 ==
LOC: ER 02-15 00:04 → MS 02-15 01:05
PROVIDERS: Surgery; Admitting Provider Surgery; Emergency Provider Physician Assistant; PCP Nurse Practitioner Adult Health; Visit Provider Surgery
DX: K56.600 Partial intestinal obstruction, unspecified as to cause (principal); R10.9 Unspecified abdominal pain; K40.20 Bilateral inguinal hernia, without obstruction or gangrene, not specified as recurrent; I10 Essential (primary) hypertension; I25.2 Old myocardial infarction; H40.9 Unspecified glaucoma; K57.30 Diverticulosis of large intestine without perforation or abscess without bleeding; G47.33 Obstructive sleep apnea (adult) (pediatric); E11.9 Type 2 diabetes mellitus without complications; F41.8 Other specified anxiety disorders; E78.5 Hyperlipidemia, unspecified; Z95.5 Presence of coronary angioplasty implant and graft; Z96.651 Presence of right artificial knee joint; K80.20 Calculus of gallbladder without cholecystitis without obstruction; N40.0 Benign prostatic hyperplasia without lower urinary tract symptoms; I25.118 Atherosclerotic heart disease of native coronary artery with other forms of angina pectoris; J43.9 Emphysema, unspecified; R00.1 Bradycardia, unspecified
CPT/HCPCS: 36415; 36416; 71045; 80048; 80053; 82962; 83690; 93005; 94640; 96361; 96365; 96375; 99221; 99231; 99239; 99285; 74018; 74019; 74177; 76705; 83605; 83735; 84484; 85025; 93010; 94664; J0131; J1170; J2270; J2405; J3490

== ENCOUNTER 2023-02-24 18:11 | Outpatient (REF) | payer MEDICARE, SELFPAY ==
[2023-02-24 21:08] LABS: Anion Gap 10.3 mmol/L (3-11); BUN 14 mg/dL (7-18); CO2 26.7 mmol/L (21.0-32.0); CREATININE 1.2 mg/dL (0.70-1.30); Calcium 8.9 mg/dL (8.5-10.1); Chloride 103 mmol/L (98-107); Estimated GFR 61.52 (mL/min/1.73m2); Glucose 86 mg/dL (74-106); Magnesium 1.5 mg/dL (1.8-2.4); Potassium 3.1 mmol/L (3.5-5.1); Sodium 140 mmol/L (136-145)
== END 2023-02-24 18:12 | disposition home or self-care (01) ==
LOC: LBO 18:11
PROVIDERS: PCP Nurse Practitioner Adult Health; Visit Provider Nurse Practitioner Adult Health
DX: E83.42 Hypomagnesemia (principal); E87.6 Hypokalemia; K40.20 Bilateral inguinal hernia, without obstruction or gangrene, not specified as recurrent; K56.609 Unspecified intestinal obstruction, unspecified as to partial versus complete obstruction
CPT/HCPCS: 80048; 83735

== ENCOUNTER → 2023-02-25 10:13 | Outpatient (BNVA) | payer MEDICARE, SELFPAY | PROVIDERS: PCP Nurse Practitioner Adult Health; Referring Provider Nurse Practitioner Adult Health; Visit Provider Surgery | DX: K57.90 Diverticulosis of intestine, part unspecified, without perforation or abscess without bleeding (principal); E66.9 Obesity, unspecified; Z68.33 Body mass index [BMI] 33.0-33.9, adult; R19.7 Diarrhea, unspecified | CPT/HCPCS: 99213; 99215 ==

== ENCOUNTER 2023-03-04 17:23 | Outpatient (REF) | payer MEDICARE, SELFPAY ==
[2023-03-05 12:47] LABS: C Diff PCR Negative (Negative)
== END 2023-03-04 17:24 | disposition home or self-care (01) ==
LOC: LBN 17:23
PROVIDERS: PCP Nurse Practitioner Adult Health; Visit Provider Surgery
DX: K40.20 Bilateral inguinal hernia, without obstruction or gangrene, not specified as recurrent (principal); E87.6 Hypokalemia; E83.42 Hypomagnesemia
CPT/HCPCS: 87493; 87505

== ENCOUNTER 2023-04-13 10:01 | Emergency (ER) | payer MEDICARE, SELFPAY ==
[2023-04-13 10:03] VITALS: BP 187/98; PULSE 75; RESP 18; TEMP 36.6; O2SAT 97
--- NOTE | 2023-04-13 10:27 | W.ED.GENAD ---
Discharge Plan Disposition Patient Disposition: Home Condition: Stable Discharge Details Clinical Impression: Acute UTI, Hematuria Primary Care Provider: Jessie Bose ED Provider: Gladys Bryant Home Meds and New Rx's Prescriptions: New cephalexin 500 mg tablet 500 mg PO BID 7 Days Qty: 14 0RF No Action aspirin 81 mg tablet,delayed release (DR/EC) 81 mg PO DAILY budesonide-formoterol [Symbicort] 160-4.5 mcg/actuation HFA aerosol inhaler 2 puff Inhalation BID Qty: 10.2 11RF Lumigan 0.01 % drops 1 drp ophthalmic (eye) DAILY nitroglycerin 0.4 mg tablet, sublingual 0.4 mg SUBLINGUAL DIRECTED Qty: 30 0RF metformin 500 mg tablet extended release 24 hr 1,000 mg PO BID Qty: 360 3RF Rx Instructions: ER formulation to prevent loose stool from IR spironolactone 25 mg tablet 25 mg PO DAILY albuterol sulfate [ProAir HFA] 90 mcg/actuation HFA aerosol inhaler 1 - 2 puff Inhalation Q6H PRN Qty: 6.7 2RF Rx Instructions: SOB/wheeze furosemide 40 mg tablet 20 mg PO BID Rx Instructions: take 20 mg (1/2 tab) BID atorvastatin 80 mg tablet See Rx Instructions .ROUTE .COMPLEX Qty: 90 3RF Dose Instruction: TAKE ONE TABLET BY MOUTH AT BEDTIME Rx Instructions: TAKE ONE TABLET BY MOUTH AT BEDTIME bupropion HCl 150 mg tablet sustained-release 12 hr 150 mg PO BID Qty: 180 3RF finasteride [Proscar] 5 mg tablet 5 mg PO HS Qty: 90 3RF acetaminophen [Tylenol] 325 mg capsule 650 mg PO Q6H PRN (Reason: fever or pain) Qty: 30 0RF cholecalciferol (vitamin D3) [Vitamin D3] 50 mcg (2,000 unit) Capsule 50 mcg PO DAILY lidocaine 5 % adhesive patch,medicated 1 patch topical DAILY Qty: 15 0RF Patient Comments: apply to left shoulder Rx Instructions: leave on most painful area for up to 12 hrs sotalol 80 mg tablet 80 mg PO BID Patient Comments: TAKE ONE TABLET BY MOUTH EVERY 12 HOURS Eliquis 5 mg tablet 5 mg PO BID Patient Comments: TAKE ONE TABLET BY MOUTH TWICE A DAY amlodipine 10 mg tablet 10 mg PO DAILY Rx Instructions: TAKE ONE TABLET BY MOUTH EVERY DAY Discharge Instructions Instructions: Urinary Tract Infection in Men (ED), Hematuria (ED) Additional Instructions: It appears you have a urinary tract infection. Please stop the aspirin until bleeding resolves. Discuss with the provider of the eliquis (Cardiology) weather or not you should hold a couple of doses. Take the antibiotic with yogurt or probiotic twice daily as directed. Follow up with primary care provider in 3-5 days. Return to ED sooner if any worsening bleeding, dizziness lightheadedness, feeling as if your bladder is full or concerns. Increase oral fluids. Referrals: Jessie Bose NP [Primary Care Provider] - 2 days Medical Decision Making 78-year-old male presents to the ER with a chief complaint of hematuria and urinary hematochezia which began this am. He recently had a pacemaker placed on 03-23-23 at [facility], reports that he bagan urinating blood this am. He also endorses bloody stool. He denies CP, SOB, or any other associated symptoms. He reports some mild abdominal pain. He is on Eliquis 5 mg twice daily which he did take this morning, he is also on aspirin 81 mg. Work-up ordered including CBC CMP PT bladder scan. Patient does have urinary frequency. CBC shows no leukocytosis, there is left shift absolute neutrophils 8.23, PT is 10.7 INR 1.1 CMP shows a BUN of 22 creatinine 1.1 glucose 109 bilirubin is 0.6 urinalysis shows squamous contamination 15 ketones large blood large bilirubin large leukocytes greater than 50 RBCs 20-50 WBCs. Culture not indicated due to squamous contamination at this time. Repeat urinalysis ordered. And bladder scan. Bladder scan result is 0 post void. Repeat Urinalysis shows positive nitrates and positive Leukocytes, Culture is pending at this time. Will give Cephalexin. And exncourage patient to stop aspirin and Follow up with prescribing provider of eliquis. Discussed home care with patient and family who verbalized understanding. This text was generated using [employer] system, please disregard any oddities of phrase or misspellings. Medical Records Medical records reviewed: Yes I reviewed the patient's medical records. Lab Data Lab results reviewed: Yes I reviewed the patient's lab results. Labs: Laboratory Tests Range/Units 04/13/23 04/13/23 04/13/23 10:25 10:34 10:34 WBC (4.4-10.8) 10^3/uL 10.54 RBC (4.36-5.78) 10^6/uL 4.81 Hgb (13.5-17.5) g/dL 14.0 Hct (40.0-50.0) % 41.8 MCV (80-95) fL 87 MCH (27.0-33.0) pg 29.1 MCHC (32.0-36.0) % 33.5 RDW (11.8-14.1) % 14.4 H Plt Count (130-400) 10^3/uL 232 MPV (8.0-11.0) fL 9.8 Immature Gran % 0.5 Neutrophils % 78.0 Lymphocytes % 10.0 Monocytes % 9.5 Eosinophils % 1.4 Basophils % 0.6 Nucleated RBC % (0.0-0.3) % 0.0 Absolute Neutrophils (1.2-6.7) 10^3/uL 8.23 H Absolute Lymphocytes (1.2-3.4) 10^3/uL 1.05 L Absolute Monocytes (0.1-0.8) 10^3/uL 1.00 H Absolute Eosinophils (0.0-0.7) 10^3/uL 0.15 Absolute Basophils (0.0-0.2) 10^3/uL 0.06 PT (9.3-11.0) sec INR (0.9-1.1) Sodium (136-145) mmol/L 136 Potassium (3.5-5.1) mmol/L 4.0 Chloride (98-107) mmol/L 99 Carbon Dioxide (21.0-32.0) mmol/L 31.8 Anion Gap (3-11) mmol/L 5.2 BUN (7-18) mg/dL 22 H Creatinine (0.70-1.30) mg/dL 1.1 Est GFR (CKD-EPI 2020) (mL/min/1.73m2) 68.29 Glucose (74-106) mg/dL 109 H Calcium (8.5-10.1) mg/dL 9.7 Total Bilirubin (0.2-1.0) mg/dL 1.6 H AST (15-37) U/L 20 ALT (16-63) U/L 14 L Alkaline Phosphatase (46-116) U/L 145 H Total Protein (6.4-8.2) g/dL 7.9 Albumin (3.4-5.0) g/dL 4.2 Urine Color (Yellow) Red Urine Clarity (Clear) Clear Urine pH (5-8) >= 9.0 H Ur Specific Crawford (1.005-1.025) 1.015 Urine Protein (Negative) mg/dL >=300 H Urine Ketones (Negative) mg/dL 15 H Urine Blood (Negative) Large H Urine Nitrite (Negative) Negative Urine Bilirubin (Negative) Large H Urine Urobilinogen (Up to 0.2) mg/dL 1.0 H Ur Leukocyte Esterase (Negative) Large H Urine RBC (0-2) HPF >50 H Urine WBC (0-5) HPF 20-50 H Ur Epithelial Cells (Negative) HPF Moderate Urine Crystals (Negative) HPF Negative Urine Bacteria (Negative) HPF Few Urine Casts (Negative) LPF Negative Urine Mucus (Negative) Trace Ur Culture Indicated? No/Sq. Contamination Urine Glucose (Negative) mg/dL Negative Range/Units 04/13/23 10:34 WBC (4.4-10.8) 10^3/uL RBC (4.36-5.78) 10^6/uL Hgb (13.5-17.5) g/dL Hct (40.0-50.0) % MCV (80-95) fL MCH (27.0-33.0) pg MCHC (32.0-36.0) % RDW (11.8-14.1) % Plt Count (130-400) 10^3/uL MPV (8.0-11.0) fL Immature Gran % Neutrophils % Lymphocytes % Monocytes % Eosinophils % Basophils % Nucleated RBC % (0.0-0.3) % Absolute Neutrophils (1.2-6.7) 10^3/uL Absolute Lymphocytes (1.2-3.4) 10^3/uL Absolute Monocytes (0.1-0.8) 10^3/uL Absolute Eosinophils (0.0-0.7) 10^3/uL Absolute Basophils (0.0-0.2) 10^3/uL PT (9.3-11.0) sec 10.7 INR (0.9-1.1) 1.1 Sodium (136-145) mmol/L Potassium (3.5-5.1) mmol/L Chloride (98-107) mmol/L Carbon Dioxide (21.0-32.0) mmol/L Anion Gap (3-11) mmol/L BUN (7-18) mg/dL Creatinine (0.70-1.30) mg/dL Est GFR (CKD-EPI 2020) (mL/min/1.73m2) Glucose (74-106) mg/dL Calcium (8.5-10.1) mg/dL Total Bilirubin (0.2-1.0) mg/dL AST (15-37) U/L ALT (16-63) U/L Alkaline Phosphatase (46-116) U/L Total Protein (6.4-8.2) g/dL Albumin (3.4-5.0) g/dL Urine Color (Yellow) Urine Clarity (Clear) Urine pH (5-8) Ur Specific Crawford (1.005-1.025) Urine Protein (Negative) mg/dL Urine Ketones (Negative) mg/dL Urine Blood (Negative) Urine Nitrite (Negative) Urine Bilirubin (Negative) Urine Urobilinogen (Up to 0.2) mg/dL Ur Leukocyte Esterase (Negative) Urine RBC (0-2) HPF Urine WBC (0-5) HPF Ur Epithelial Cells (Negative) HPF Urine Crystals (Negative) HPF Urine Bacteria (Negative) HPF Urine Casts (Negative) LPF Urine Mucus (Negative) Ur Culture Indicated? Urine Glucose (Negative) mg/dL HPI General Mode of arrival: ambulatory. Date/Time Provider Initiated Documentation: 04/13/23 10:04. Limitations to Documentation: no limitations. Information obtained by: patient, family, RN notes reviewed and old records reviewed. HPI Narrative: 78-year-old male presents to the ER with a chief complaint of hematuria and urinary hematochezia which began this am. He recently had a pacemaker placed on 03-23-23 at [facility], reports that he bagan urinating blood this am. He also endorses bloody stool. He denies CP, SOB, or any other associated symptoms. He reports some mild abdominal pain. He is on Eliquis 5 mg twice daily which he did take this morning, he is also on aspirin 81 mg. Related Data Home Medications Medication Instructions Recorded Confirmed acetaminophen 325 mg capsule 650 mg PO Q6H PRN fever or pain 05/10/19 04/13/23 (Tylenol) #30 caps aspirin 81 mg tablet,delayed 81 mg PO DAILY 09/02/20 04/13/23 release spironolactone 25 mg tablet 25 mg PO DAILY 11/22/20 04/13/23 cholecalciferol (vitamin D3) 50 50 mcg PO DAILY 07/07/21 04/13/23 mcg (2,000 unit) capsule (Vitamin D3) albuterol sulfate 90 mcg/actuation 1 - 2 puff inhalation Q6H PRN 09/12/21 04/13/23 aerosol inhaler (ProAir HFA) shortness of breath or wheezing #6.7 grams budesonide-formoterol HFA 160 2 puff inhalation BID #10.2 grams 11/03/21 04/13/23 mcg-4.5 mcg/actuation aerosol inhaler (Symbicort) furosemide 40 mg tablet 20 mg PO BID 12/12/21 04/13/23 atorvastatin 80 mg tablet See Rx Instructions .Route 10/12/22 04/13/23 .COMPLEX #90 tabs bimatoprost 0.01 % eye drops 1 drp ophthalmic (eye) DAILY 10/28/22 04/13/23 (Leandro) lidocaine 5 % topical patch 1 patch topical DAILY #15 ea 12/01/22 04/13/23 bupropion HCl 150 mg tablet,12 hr 150 mg PO BID #180 tabs 12/24/22 04/13/23 sustained-release metformin 500 mg tablet,extended 1,000 mg PO BID #360 tabs 01/04/23 04/13/23 release 24 hr nitroglycerin 0.4 mg sublingual 0.4 mg sublingual DIRECTED #30 01/04/23 04/13/23 tablet tabs finasteride 5 mg tablet (Proscar) 5 mg PO HS #90 tabs 02/08/23 04/13/23 amlodipine 10 mg tablet 10 mg PO DAILY 02/15/23 04/13/23 apixaban 5 mg tablet (Eliquis) 5 mg PO BID 04/13/23 04/13/23 cephalexin 500 mg tablet 500 mg PO BID 7 days #14 tabs 04/13/23 sotalol 80 mg tablet 80 mg PO BID 04/13/23 04/13/23 Previous Rx's Medication Instructions Recorded acetaminophen 325 mg capsule 650 mg PO Q6H PRN fever or pain 05/10/19 (Tylenol) #30 caps albuterol sulfate 90 mcg/actuation 1 - 2 puff inhalation Q6H PRN 09/12/21 aerosol inhaler (ProAir HFA) shortness of breath or wheezing #6.7 grams budesonide-formoterol HFA 160 2 puff inhalation BID #10.2 grams 11/03/21 mcg-4.5 mcg/actuation aerosol inhaler (Symbicort) atorvastatin 80 mg tablet See Rx Instructions .Route 10/12/22 .COMPLEX #90 tabs lidocaine 5 % topical patch 1 patch topical DAILY #15 ea 12/01/22 bupropion HCl 150 mg tablet,12 hr 150 mg PO BID #180 tabs 12/24/22 sustained-release metformin 500 mg tablet,extended 1,000 mg PO BID #360 tabs 01/04/23 release 24 hr nitroglycerin 0.4 mg sublingual 0.4 mg sublingual DIRECTED #30 01/04/23 tablet tabs finasteride 5 mg tablet (Proscar) 5 mg PO HS #90 tabs 02/08/23 cephalexin 500 mg tablet 500 mg PO BID 7 days #14 tabs 04/13/23 Allergies Allergy/AdvReac Type Severity Reaction Status Date / Time oxycodone AdvReac Intermediate He goes a Verified 04/13/23 10:08 taina briggsckvanda General Stated Complaint: Urinary LOREN: 3 Review of Systems All systems reviewed & are unremarkable except as noted in HPI and below Gastrointestinal Gastrointestinal: Reports hematochezia Genitourinary Genitourinary: Reports hematuria PFSH All Active Problems (Updated 04/13/23 @ 12:22 by Gladys Bryant NP) Acute UTI (Acute) Hematuria (Acute) Pacemaker (Acute) [facility] 03/23/2023 Acute diarrhea (Acute) Small bowel obstruction (Acute) [facility] 05/2018; 02/2023 Hernia (Chronic) Bilateral inguinal hernia without obstruction or gangrene (Acute) Rotator cuff arthropathy of left shoulder (Acute) subacromial corticosteroid injection 10/28/22 Depression (Chronic) Long-term RX Wellbutrin BPH (benign prostatic hyperplasia) (Chronic) RX Finasteride Primary hypertension (Chronic) Myocardial infarction (Chronic) X2 Glaucoma (Chronic) 2/25/20 [place] Diverticulosis (Chronic) 2018 colonoscopy Obesity (Chronic) Sinus node dysfunction (Chronic) [facility] Cardiolgy; stay off of BB Tubular adenoma (Chronic 10/04/08) Colonoscopy 10/04/15 & repeat 2019 (13!) Coronary artery disease (Chronic) [facility] [employer] [place] 1998 with angina; cath in 1998 1-vessel dis Obstructive sleep apnea (Chronic) h/o CPAP; clausterphobic with masks so stopped using; then 100# weight loss; referred in 11/2019 but he declined COPD (chronic obstructive pulmonary disease) (Acute) Diabetes type 2, controlled (Chronic) Dx'ed in 1970s Medical History Anxiety and depression Bradycardia, sinus 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 residential monitor Cataracts, bilateral 09/05/19 [place] OS>>OD Epidermal inclusion cyst Hyperlipidemia Atorvastatin Lipoma of head Removed 04/2019 [place] Normochromic normocytic anemia Pancreatitis [facility] 05/2018 (mild) Rupture of right biceps tendon PT Surgical History S/P colonoscopy (~05/02/19) 09/2015- [facility]- Tubular adenomas x2 05/2019--Brain x13 tubular adenomas S/P coronary artery stent placement 04/30/19 per pt he does not have a stent. 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 Pets and animals: Yes Sexually active: Yes Do you think of yourself as: straight/heterosexual Current gender identity: male What is your relationship status?: living with partner How often do you get together with friends or relatives?: twice per week Panel score (0-1 are the most socially isolated patients): 1 What type of physical activity do you participate in: walking Duration: > 90 minutes/day Frequency: 3-4 times per week Desirae/Worship: Temple Special desirae needs: No Seatbelt use: always Drive intox or ride w/intox driver engineer: No Do you feel safe at home: Yes Do you feel safe in your relationship?: Yes Additional Social history: at bedside Exam Narrative Exam Narrative: Constitutional: Alert and oriented x3. Appears stated age. Normal body habitus. Head: Normocephalic, no trauma. Eyes: Pupils PERRL, Red reflex noted, EOM's intact. Eyelids symmetrical without lesions, discharge, or swelling. ENT: Bilateral TM's WNL, External ear normal to inspection, no mastoid TTP, swelling, or erythema, Nasal turbinates WNL, no nasal discharge. Normal dentition, Posterior pharynx WNL, no exudate. Chest: RRR, Normal S1, S2, distal pulses intact. Resp: Lungs clear to auscultation bilaterally, no wheezes, rales, or rhonchi. Abdomen: Soft, non-distended, Normoactive bowel sounds all 4 quads. Musculoskeletal: Normal gait, 5/5 strength to all four extremities. Skin: No suspicious rashes or lesions. Capillary refill less than 2 sec. Neurologic: Cranial nerves II-XII intact. Alert and oriented x 3. Motor: No deficits noted. Sensory: Intact bilaterally all 4 extremities. Reflexes: DTR's intact bilaterally.. Hematologic/Lymphatic: No ecchymosis, no lymphadenopathy. Course Vital Signs Vital signs: Vital Signs Temperature 36.6 C 04/13/23 10:03 Pulse 75 04/13/23 10:03 Respiratory Rate 18 04/13/23 10:03 Blood Pressure 187/98 H 04/13/23 10:03 Pulse Oximetry 97 04/13/23 10:03 Temperature 36.6 C 04/13/23 10:03 Temperature Source Temporal Artery Scan 04/13/23 10:03 Pulse 75 04/13/23 10:03 Respiratory Rate 18 04/13/23 10:03 Respiratory Effort Normal 04/13/23 10:11 Blood Pressure 187/98 H 04/13/23 10:03 Blood Pressure Position Sitting 04/13/23 10:03 Pulse Oximetry 97 04/13/23 10:03 Oxygen Delivery Method Room Air 04/13/23 10:03 Oxygen Flow Rate 0 04/13/23 10:03 Pain Level 0 04/13/23 10:03
[2023-04-13 10:47] LABS: Bilirubin Large (Negative); Blood Large (Negative); Clarity Clear (Clear); Glucose Negative (Negative); Ketones 15 mg/dL (Negative); Leukocyte Esterase Large (Negative); Nitrite Negative (Negative); Specific Gravity 1.015 (1.005-1.025); pH >= 9.0 (5-8)
[2023-04-13 10:50] LABS: INR 1.1 (0.9-1.1); Prothrombin Time 10.7 sec (9.3-11.0)
[2023-04-13 10:51] LABS: Bacteria Few HPF (Negative); C & S Indicated? No/Sq. Contamination; Casts Negative LPF (Negative); Crystals Negative HPF (Negative); Epithelial Cells Moderate HPF (Negative); Mucus Trace (Negative); RBC >50 HPF (0-2); WBC 20-50 HPF (0-5)
[2023-04-13 10:54] LABS: ALT 14 U/L (16-63); AST 20 U/L (15-37); Albumin 4.2 g/dL (3.4-5.0); Alkaline Phosphatase 145 U/L (46-116); Anion Gap 5.2 mmol/L (3-11); BUN 22 mg/dL (7-18); Bilirubin, Total 1.6 mg/dL (0.2-1.0); CO2 31.8 mmol/L (21.0-32.0); CREATININE 1.1 mg/dL (0.70-1.30); Calcium 9.7 mg/dL (8.5-10.1); Chloride 99 mmol/L (98-107); Estimated GFR 68.29 (mL/min/1.73m2); Glucose 109 mg/dL (74-106); Sodium 136 mmol/L (136-145); Total Protein 7.9 g/dL (6.4-8.2)
[2023-04-13 11:00] LABS: Abs Immature Grans 0.05 10^3/uL (0.0-0.06); Absolute Basophil Count 0.06 10^3/uL (0.0-0.2); Absolute Eosinophil Count 0.15 10^3/uL (0.0-0.7); Absolute Lymphocyte Count 1.05 10^3/uL (1.2-3.4); Absolute Neutrophil Count 8.23 10^3/uL (1.2-6.7); Basophils % 0.6; Eosinophils % 1.4; HCT 41.8 % (40.0-50.0); Immature Grans % 0.5; MCH 29.1 pg (27.0-33.0); MCHC 33.5 % (32.0-36.0); MCV 87 fL (80-95); MPV 9.8 fL (8.0-11.0); Monocytes % 9.5; Platelet Count 232 10^3/uL (130-400); RBC 4.81 10^6/uL (4.36-5.78); RDW 14.4 % (11.8-14.1); RDW-SD 45.9 fL; WBC 10.54 10^3/uL (4.4-10.8)
[2023-04-13 12:11] LABS: Bilirubin Small (Negative); Blood Large (Negative); Clarity Sl Cloudy (Clear); Glucose Negative (Negative); Ketones Trace mg/dL (Negative); Leukocyte Esterase Small (Negative); Nitrite Positive (Negative); Specific Gravity 1.015 (1.005-1.025); Urobilinogen 0.2 mg/dL (Up to 0.2); pH 8.5 (5-8)
[2023-04-13 12:13] LABS: Bacteria Few HPF (Negative); C & S Indicated? Yes; Casts Negative LPF (Negative); Crystals Negative HPF (Negative); Epithelial Cells Few HPF (Negative); Mucus Negative (Negative); RBC >50 HPF (0-2)
[2023-04-13] MEDS: Cephalexin 500 MG CAP PO (12:25)
[2023-04-13 12:31] VITALS: BP 133/66; PULSE 70; RESP 18; O2SAT 95
== END 2023-04-13 12:40 | disposition home or self-care (01) ==
PROVIDERS: Emergency Provider Registered Nurse Emergency; PCP Nurse Practitioner Adult Health
DX: R31.9 Hematuria, unspecified (principal); N39.0 Urinary tract infection, site not specified; I25.10 Atherosclerotic heart disease of native coronary artery without angina pectoris; I25.2 Old myocardial infarction; I10 Essential (primary) hypertension; J44.9 Chronic obstructive pulmonary disease, unspecified; E11.9 Type 2 diabetes mellitus without complications; Z79.82 Long term (current) use of aspirin; Z79.84 Long term (current) use of oral hypoglycemic drugs; Z79.01 Long term (current) use of anticoagulants; Z95.0 Presence of cardiac pacemaker
CPT/HCPCS: 36415; 80053; 87077; 99284; 81003; 81015; 85025; 85610; 87086; 87186

== ENCOUNTER 2023-05-18 15:44 | Inpatient (IN) | payer MEDICARE, SELFPAY ==
[2023-05-18] VITALS (14 sets, daily range): BP systolic 133–189; BP diastolic 74–105; PULSE 70–78; RESP 17–21; TEMP 36.5–36.6; O2SAT 95–99
--- NOTE | 2023-05-18 16:22 | ED.GENADUL_ITS ---
Discharge Plan Disposition Patient Disposition: Admit to [facility] Discharge Details Clinical Impression: Partial small bowel obstruction Primary Care Provider: Jessie Bose ED Provider: Felipe Poole Dora Meds and New Rx's Prescriptions: No Action aspirin 81 mg tablet,delayed release (DR/EC) 81 mg PO DAILY budesonide-formoterol [Symbicort] 160-4.5 mcg/actuation HFA aerosol inhaler 2 puff Inhalation BID Qty: 10.2 11RF Lumigan 0.01 % drops 1 drp ophthalmic (eye) DAILY nitroglycerin 0.4 mg tablet, sublingual 0.4 mg SUBLINGUAL DIRECTED Qty: 30 0RF metformin 500 mg tablet extended release 24 hr 1,000 mg PO BID Qty: 360 3RF Rx Instructions: ER formulation to prevent loose stool from IR spironolactone 25 mg tablet 25 mg PO DAILY albuterol sulfate [ProAir HFA] 90 mcg/actuation HFA aerosol inhaler 1 - 2 puff Inhalation Q6H PRN Qty: 6.7 2RF Rx Instructions: SOB/wheeze furosemide 40 mg tablet 20 mg PO BID Rx Instructions: take 20 mg (1/2 tab) BID atorvastatin 80 mg tablet See Rx Instructions .ROUTE .COMPLEX Qty: 90 3RF Dose Instruction: TAKE ONE TABLET BY MOUTH AT BEDTIME Rx Instructions: TAKE ONE TABLET BY MOUTH AT BEDTIME bupropion HCl 150 mg tablet sustained-release 12 hr 150 mg PO BID Qty: 180 3RF finasteride [Proscar] 5 mg tablet 5 mg PO HS Qty: 90 3RF acetaminophen [Tylenol] 325 mg capsule 650 mg PO Q6H PRN (Reason: fever or pain) Qty: 30 0RF cholecalciferol (vitamin D3) [Vitamin D3] 50 mcg (2,000 unit) Capsule 50 mcg PO DAILY lidocaine 5 % adhesive patch,medicated 1 patch topical DAILY Qty: 15 0RF Patient Comments: apply to left shoulder Rx Instructions: leave on most painful area for up to 12 hrs sotalol 80 mg tablet 80 mg PO BID Patient Comments: TAKE ONE TABLET BY MOUTH EVERY 12 HOURS Eliquis 5 mg tablet 5 mg PO BID Patient Comments: TAKE ONE TABLET BY MOUTH TWICE A DAY amlodipine 10 mg tablet 10 mg PO DAILY Rx Instructions: TAKE ONE TABLET BY MOUTH EVERY DAY HPI General Date/Time Provider Initiated Documentation: 05/18/23 15:47 . HPI Narrative: MDM This is an uncomfortable appearing normothermic and not tachycardic 78-year-old male with history of recent partial SBO with plans for elective outpatient general surgery follow-up now with epigastric pain concerning for recurrent obstruction. No skin changes to suggest strangulation or incarceration. No right upper quadrant pain to suggest acute cholecystitis. We will check a lactate to assess for bowel ischemia. No pain out of proportion to suggest necrotizing soft tissue infection. Patient has no obvious inguinal hernia on my assessment and the areas are not tender with no skin changes to suggest incarceration. No right lower quadrant tenderness to suggest appendicitis. No left lower quadrant tenderness to suggest diverticulitis. No testicular pain to suggest torsion. Will treat with morphine and complete CT scan. No chest pain so will defer ECG. No syncope so we will defer pacemaker interrogation. 5:45 PM Reassuring normal lactate. Reassuring normal lipase not consistent with pancreatitis. No anemia. No thrombocytopenia. No leukocytosis. Comprehensive metabolic panel showing very mild hypokalemia with a serum potassium of 3.2. No SUSSY. Persistent hyperbilirubinemia improved compared to prior. Mildly elevated alkaline phosphatase. 7:53 PM Also talked with Dr. Cordon who is coming to assess the patient. She requested an NG tube which I ordered. 8:23 PM Patient declined NG tube placement. 8:40 PM I spoke with Dr. Cordon who agreed graciously to hospitalize the patient. Chronic conditions affecting the care of the patient: Coronary artery disease recent pacemaker History obtained from an outside historian: Patient's External record review: [facility] [place] EMR Medications: Morphine Social determinants of health affecting disposition: N/A Management discussed with: General surgery Treatment/interventions considered: Discharge but deferred Response to therapies provided: Improved pain in the emergency department. HPI This is a 78-year-old male history of inguinal hernia and remote umbilical hernia status post mesh repair arrived to the emergency department with abdominal pain. Patient arrives via private vehicle. Patient first noticed abdominal pain at approximate 11:30 PM last night. He last had a bowel movement greater than 12 hours ago. He has been vomiting this afternoon and unable to tolerate anything by mouth for the past 5 or 6 hours. Patient endorses chills and sweats. He has had no chest pain. Past surgical history significant for remote umbilical hernia repair with mesh. He denies dysuria and frequency. He is follow by outpatient general surgery but has not yet scheduled his surgery. Exam General: Well-appearing in no acute distress speaking in complete sentences. Head: Normocephalic, atraumatic. Eye: Extraocular eye movements intact. No conjunctival injection. No scleral icterus. Ear, nose, mouth, throat: Grossly normal inspection. Normal voice, handling secretions normally. Neck: Trachea midline. Cardiovascular: Well-perfused distal extremities. Regular rate and rhythm Respiratory: Nonlabored respiration. Clear lungs. Gastrointestinal: Moderately distended abdomen. Small approximately 1 cm mobile lump just superior to the umbilicus. No obvious skin changes. No obvious inguinal hernias bilaterally. Musculoskeletal: No edema. Moving all 4 extremities spontaneously. Skin: Normal for age and race, grossly normal temperature and turgor. No acute rash. Neurologic: Alert and appropriate, no apparent acute deficits. Psychiatric: Mood and manner are appropriate. Grooming and personal hygiene are appropriate. Related Data Home Medications Medication Instructions Recorded Confirmed acetaminophen 325 mg capsule 650 mg (2 x 325 mg) PO Q6H PRN 05/10/19 04/13/23 (Tylenol) fever or pain #30 caps aspirin 81 mg tablet,delayed 81 mg PO DAILY 09/02/20 04/13/23 release spironolactone 25 mg tablet 25 mg PO DAILY 11/22/20 04/13/23 cholecalciferol (vitamin D3) 50 50 mcg PO DAILY 07/07/21 04/13/23 mcg (2,000 unit) capsule (Vitamin D3) albuterol sulfate 90 mcg/actuation 1 - 2 puff inhalation Q6H PRN 09/12/21 04/13/23 aerosol inhaler (ProAir HFA) shortness of breath or wheezing #6.7 grams budesonide-formoterol HFA 160 2 puff inhalation BID #10.2 grams 11/03/21 mcg-4.5 mcg/actuation aerosol inhaler (Symbicort) furosemide 40 mg tablet 20 mg PO BID 12/12/21 04/13/23 atorvastatin 80 mg tablet See Rx Instructions .Route 10/12/22 04/13/23 .COMPLEX #90 tabs bimatoprost 0.01 % eye drops 1 drp ophthalmic (eye) DAILY 10/28/22 04/13/23 (Lumigan) lidocaine 5 % topical patch 1 patch topical DAILY #15 ea 05/23/23 10/03/23 bupropion HCl 150 mg tablet,12 hr 150 mg PO BID #180 tabs 12/24/22 04/13/23 sustained-release metformin 500 mg tablet,extended 1,000 mg (2 x 500 mg) PO BID #360 01/04/23 04/13/23 release 24 hr tabs nitroglycerin 0.4 mg sublingual 0.4 mg sublingual DIRECTED #30 01/04/23 04/13/23 tablet tabs finasteride 5 mg tablet (Proscar) 5 mg PO HS #90 tabs 02/08/23 04/13/23 amlodipine 10 mg tablet 10 mg PO DAILY 02/15/23 04/13/23 apixaban 5 mg tablet (Eliquis) 5 mg PO BID 04/13/23 04/13/23 sotalol 80 mg tablet 80 mg PO BID 04/13/23 04/13/23 Previous Rx's Medication Instructions Recorded acetaminophen 325 mg capsule 650 mg (2 x 325 mg) PO Q6H PRN 05/10/19 (Tylenol) fever or pain #30 caps albuterol sulfate 90 mcg/actuation 1 - 2 puff inhalation Q6H PRN 09/12/21 aerosol inhaler (ProAir HFA) shortness of breath or wheezing #6.7 grams budesonide-formoterol HFA 160 2 puff inhalation BID #10.2 grams 11/03/21 mcg-4.5 mcg/actuation aerosol inhaler (Symbicort) atorvastatin 80 mg tablet See Rx Instructions .Route 10/12/22 .COMPLEX #90 tabs lidocaine 5 % topical patch 1 patch topical DAILY #15 ea 12/01/22 bupropion HCl 150 mg tablet,12 hr 150 mg PO BID #180 tabs 12/24/22 sustained-release metformin 500 mg tablet,extended 1,000 mg (2 x 500 mg) PO BID #360 01/04/23 release 24 hr tabs nitroglycerin 0.4 mg sublingual 0.4 mg sublingual DIRECTED #30 01/04/23 tablet tabs finasteride 5 mg tablet (Proscar) 5 mg PO HS #90 tabs 02/08/23 Allergies Allergy/AdvReac Type Severity Reaction Status Date / Time oxycodone AdvReac Intermediate He goes a Verified 05/18/23 15:51 taina celestina General Stated Complaint: Abd Prob LOREN: 3 PFSH All Active Problems (Updated 05/18/23 @ 20:41 by Felipe Poole MD) Partial small bowel obstruction (Acute) Pacemaker (Acute) [facility] [place] 03/23/2023 Acute diarrhea (Acute) Small bowel obstruction (Acute) [facility] 05/2018; 02/2023 Hernia (Chronic) Bilateral inguinal hernia without obstruction or gangrene (Acute) Rotator cuff arthropathy of left shoulder (Acute) subacromial corticosteroid injection 10/28/22 Depression (Chronic) Long-term RX Wellbutrin BPH (benign prostatic hyperplasia) (Chronic) RX Finasteride Primary hypertension (Chronic) Myocardial infarction (Chronic) X2 Glaucoma (Chronic) 09/05/19 [place] Diverticulosis (Chronic) 2019 colonoscopy Obesity (Chronic) Sinus node dysfunction (Chronic) [facility] [place] Cardiolgy; stay off of BB Tubular adenoma (Chronic 10/04/08) Colonoscopy 10/04/15 & repeat 2019 (13!) Coronary artery disease (Chronic) [facility] [place] 1998 with angina; cath in 1998 1-vessel dis Obstructive sleep apnea (Chronic) h/o CPAP; clausterphobic with masks so stopped using; then 100# weight loss; referred in 11/2019 but he declined COPD (chronic obstructive pulmonary disease) (Acute) Diabetes type 2, controlled (Chronic) Dx'ed in Medical History Anxiety and depression Bradycardia, sinus 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 Pets and animals: Yes Sexually active: Yes Do you think of yourself as: straight/heterosexual Current gender identity: male What is your relationship status?: living with partner How often do you get together with friends or relatives?: twice per week Panel score (0-1 are the most socially isolated patients): 1 What type of physical activity do you participate in: walking Duration: > 90 minutes/day Frequency: 3-4 times per week Desirae/Worship: Gnosticism Special desirae needs: No Seatbelt use: always Drive intox or ride w/intox limousine driver: No Do you feel safe at home: Yes Do you feel safe in your relationship?: Yes Additional Social history: at bedside Course Vital Signs Vital signs: Vital Signs Temperature 36.6 C 05/18/23 15:48 Pulse 73 05/18/23 15:48 Respiratory Rate 18 05/18/23 15:48 Blood Pressure 189/96 H 05/18/23 15:48 Pulse Oximetry 95 05/18/23 15:48 Temperature 36.6 C 05/18/23 15:48 Temperature Source Temporal Artery Scan 05/18/23 15:48 Pulse 73 05/18/23 15:48 Respiratory Rate 18 05/18/23 15:48 Respiratory Effort Normal, Non-Labored 05/18/23 15:51 Blood Pressure 189/96 H 05/18/23 15:48 Blood Pressure Position Sitting 05/18/23 15:48 Pulse Oximetry 95 05/18/23 15:48 Oxygen Delivery Method Room Air 05/18/23 15:48 Oxygen Flow Rate 0 05/18/23 15:48
[2023-05-18 16:47] LABS: Abs Immature Grans 0.03 10^3/uL (0.0-0.06); Absolute Basophil Count 0.07 10^3/uL (0.0-0.2); Absolute Eosinophil Count 0.22 10^3/uL (0.0-0.7); Absolute Lymphocyte Count 0.85 10^3/uL (1.2-3.4); Absolute Monocyte Count 0.74 10^3/uL (0.1-0.8); Absolute Neutrophil Count 8.08 10^3/uL (1.2-6.7); Basophils % 0.7; Eosinophils % 2.2; HCT 41.1 % (40.0-50.0); HGB 13.9 g/dL (13.5-17.5); Immature Grans % 0.3; Lymphocytes % 8.5; MCH 29.1 pg (27.0-33.0); MCHC 33.8 % (32.0-36.0); MCV 86 fL (80-95); MPV 9.6 fL (8.0-11.0); Monocytes % 7.4; Neutrophils % 80.9; Platelet Count 204 10^3/uL (130-400); RBC 4.78 10^6/uL (4.36-5.78); RDW 13.8 % (11.8-14.1); RDW-SD 44.1 fL; WBC 9.99 10^3/uL (4.4-10.8)
[2023-05-18] MEDS: Ondansetron 4 MG/2 ML VIAL IVP (16:53)
[2023-05-18] MEDS: MORPHine 4 MG/ML SYR IVP (16:54)
[2023-05-18 17:04] LABS: ALT 14 U/L (16-63); AST 20 U/L (15-37); Albumin 3.9 g/dL (3.4-5.0); Alkaline Phosphatase 151 U/L (46-116); Anion Gap 9.2 mmol/L (3-11); BUN 18 mg/dL (7-18); Bilirubin, Total 1.2 mg/dL (0.2-1.0); CO2 26.8 mmol/L (21.0-32.0); CREATININE 0.9 mg/dL (0.70-1.30); Calcium 9.5 mg/dL (8.5-10.1); Chloride 102 mmol/L (98-107); Estimated GFR 86.88 (mL/min/1.73m2); Glucose 156 mg/dL (74-106); Lipase 32 U/L (16-77); Potassium 3.2 mmol/L (3.5-5.1); Sodium 138 mmol/L (136-145); Total Protein 7.5 g/dL (6.4-8.2)
[2023-05-18] MEDS: Normal Saline Flush 10 ML SYR IJ (17:56)
[2023-05-18] MEDS: Normal Saline - Diluent 50 ML VIAL IJ (18:04)
[2023-05-18] MEDS: Omnipaque 350 MG/ML 100 ML BTL IJ (18:05)
--- NOTE | 2023-05-18 18:06 | DI.CT_ITS ---
Exam(s) CT ABDOMEN PELVIS W EXAM: CT ABDOMEN PELVIS W CLINICAL HISTORY: Epigastric pain history of hernia TECHNIQUE: Imaging Protocol: Axial computed tomography images with coronal and sagittal reformatted images were created and reviewed CONTRAST MATERIAL: Intravenous: Omnipaque 350 Contrast volume:100 mL Oral: No COMPARISON: CT CT ABDOMEN PELVIS W from 02/14/2023 FINDINGS: ABDOMEN: Lung Bases: Cardiac pacing wires are in place. Coronary artery calcification and/or stents are prese nt. There are calcified granulomas in the lungs. Liver: Normal density. No measurable mass. Portal, Superior Mesenteric, and Splenic Veins: Unremarkable. Gallbladder and Biliary Tract: The gallbladder is distended. No biliary ductal dilatation is present . Pancreas: Normal density, no abnormal calcifications or inflammatory process. Spleen: Normal. Adrenals: No masses seen. Kidneys: Normal size, contour and axis. No radiodense stones or obstructive uropathy. No masses seen. Abdominal Aorta: Abdominal portion non-dilated. Atherosclerosis. Bowel: There is no evidence of bowel wall thickening. There are mildly dilated loops of small bowel in the central abdomen with air-fluid levels. There is normal caliber distal small bowel. This may represent an ileus or small-bowel obstruction. There is a large right inguinal hernia containing a l oop of small bowel which shows no evidence of obstruction or bowel wall thickening. There is no evid ence of appendicitis. Peritoneal Cavity: There is a small amount of pelvic ascites. No free air. Lymph Nodes: Within normal limits. Bones: Within normal limits for the patient's age. Soft Tissues: There is a large fat and fluid containing left inguinal hernia. PELVIS: Bladder: There is mild diffuse thickening of the wall of the urinary bladder., Reproductive Organs: Mildly enlarged. Lymph Nodes: Within normal limits. Bones: Within normal limits for the patient's age. IMPRESSION: 1. Small bowel loops in the central abdomen which show dilatation and air-fluid levels raising the qu estion of a small-bowel obstruction. 2. Large right inguinal hernia containing a loop of small bowel which shows no evidence of obstructio n or incarceration. 3. Mild diffuse thickening of the wall of the urinary bladder. This may be due to underdistention, c ystitis or chronic bladder outlet obstruction. 4. Trace amount of free fluid in the pelvis. 5. No pneumoperitoneum or pneumatosis. 6. Findings were discussed with Dr. Zulema at 6:51 p.m. on 05/18/2023. RADIATION DOSE DELIVERED: Total DLP DATA REPOSITORY: All CT scans at this facility are submitted to the National Radiology Data Registry (NRDR) Dose Index Registry (DIR) with the [employer] (ACR). RADIATION OPTIMIZATION: All CT scans at this facility use at least one of these dose optimization te chniques: automated exposure control; mA and/or kV adjustment per patient size (includes targeted exa ms where dose is matched to clinical indication); or iterative reconstruction.
[2023-05-18 19:38] LABS: Source Nasal/Nares
[2023-05-18 20:08] LABS: COVID-19 PCR Negative (Negative)
--- NOTE | 2023-05-18 20:26 | NUR.NOTE ---
Nursing Note: Nasogastric tube supplies at bedside. Pt does not complain of nausea at this time or previously. When informed, Pt requested to not have NG tube placed and provider team made aware.
--- NOTE | 2023-05-18 20:54 | W.PM.HP.N ---
Date of service: 05/18/23 Time of Service: 20:54 Assessment and Plan Assessment and plan (1) Partial small bowel obstruction: Status: Acute Assessment and plan: - He is s on Eliquis. We will hold this tonight. -I did discuss the case with anesthesia. He is at adequate and/acceptable candidate for anesthesia and [facility]. At this point he does not appear to require emergency surgery. We will continue observation for any signs of recurrent obstruction. N.p.o. Check electrolytes in a.m. Glucose monitoring Patient was recently in the hospital with a severe UTI. Will check UA. He was also recently on antibiotics. Patient has a history of chronic diarrhea supposed to bring in stool studies never did. We will check stool studies. This document was created with voice activated software and may contain errors. 90 mins spent with the patient today. (2) Pacemaker: Status: Acute History of Present Illness Narrative: Patient came into the ER today complaining of abdominal pain. The patient started about 9 or 10:00 this morning. It was periumbilical in nature. He was having severe pain and nausea and vomiting. At the time I am seeing him in the ER, he says the pain has resolved. He has no pain in his abdomen. He said he has not had any pain whatsoever in his scrotum. He has good bowel sounds currently. He is unsure if he has passed any gas. He had a laparoscopic hernia in the past. Shortly after he had this procedure/a few days, he had to have another laparoscopy for removal of scar tissue/lysis of adhesions. He also has a 2 x 2 centimeter area of scar tissue at the umbilicus that has chronic. It is believed that this hernia was repaired with mesh. He has a very large right inguinal hernia. This is soft and reducible tonight. He denies any pain from his scrotum. He also recently had a pacemaker placed on 03/23. He had it interrogated 04/[address] [facility] and it was functioning well. He is on Eliquis treatment he had a JESSI at [facility] in 2021. See scanned document in [employer] He was also admitted to [facility] in April 2023 with UTI. Review of Systems All systems reviewed & are unremarkable except as noted in HPI and below PFSH All Active Problems (Updated 05/18/23 @ 21:56 by Elly Cordon DO) Partial small bowel obstruction (Acute) Pacemaker (Acute) [facility] [place] Acute diarrhea (Acute) Hernia (Chronic) Bilateral inguinal hernia without obstruction or gangrene (Acute) Rotator cuff arthropathy of left shoulder (Acute) subacromial corticosteroid injection 10/28/22 Depression (Chronic) Long-term RX Wellbutrin BPH (benign prostatic hyperplasia) (Chronic) RX Finasteride Primary hypertension (Chronic) Myocardial infarction (Chronic) X2 Glaucoma (Chronic) 09/05/19 [place] Diverticulosis (Chronic) 2019 colonoscopy Obesity (Chronic) Sinus node dysfunction (Chronic) [facility] [place] Cardiolgy; stay off of BB Tubular adenoma (Chronic 10/04/08) Colonoscopy 10/04/15 & repeat 2019 (13!) Coronary artery disease (Chronic) [facility] [place] 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; 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 in 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 1-vessel dis Obstructive sleep apnea (Chronic) h/o CPAP; clausterphobic with masks so stopped using; then 100# weight loss; referred in 11/2019 but he declined COPD (chronic obstructive pulmonary disease) (Acute) Diabetes type 2, controlled (Chronic) Dx'ed in 1970s Medical History (Updated 05/18/23 @ 21:56 by Elly Cordon DO) Small bowel obstruction [facility] 05/2018; 02/2023 Normochromic normocytic anemia Bradycardia, sinus 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 air sampling and monitoring Rupture of right biceps tendon PT Cataracts, bilateral 09/05/19 [place] OS>>OD Epidermal inclusion cyst Lipoma of head Removed 04/2019 [place] Anxiety and depression Pancreatitis [facility] 05/2018 (mild) Hyperlipidemia Atorvastatin Surgical History S/P colonoscopy (~05/02/19) 09/2015- [facility]- Tubular adenomas x2 05/2019--Brain x13 tubular adenomas Total knee replacement status R 12/11/2013 L S/P shoulder surgery S/P coronary artery stent placement 04/30/19 per pt he does not have a stent. 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 Pets and animals: Yes Sexually active: Yes Do you think of yourself as: straight/heterosexual Current gender identity: male What is your relationship status?: living with partner How often do you get together with friends or relatives?: twice per week Panel score (0-1 are the most socially isolated patients): 1 What type of physical activity do you participate in: walking Duration: > 90 minutes/day Frequency: 3-4 times per week Desirae/Hindu: Protestant Special desirae needs: No Seatbelt use: always Drive intox or ride w/intox haul driver: No Do you feel safe at home: Yes Do you feel safe in your relationship?: Yes Additional Social history: at bedside Meds Allergies and Home Medications Allergies Allergy/AdvReac Type Severity Reaction Status Date / Time oxycodone AdvReac Intermediate He goes a Verified 05/18/23 15:51 little wacky Home Medications Medication Instructions Recorded Confirmed Type acetaminophen 325 mg capsule 650 mg (2 x 325 mg) PO Q6H PRN 05/10/19 05/18/23 Rx (Tylenol) fever or pain #30 caps aspirin 81 mg tablet,delayed 81 mg PO DAILY 09/02/20 05/18/23 History release spironolactone 25 mg tablet 25 mg PO DAILY 11/22/20 05/18/23 History cholecalciferol (vitamin D3) 50 50 mcg PO DAILY 07/07/21 05/18/23 History mcg (2,000 unit) capsule (Vitamin D3) albuterol sulfate 90 mcg/actuation 1 - 2 puff inhalation Q6H PRN 09/12/21 05/18/23 Rx aerosol inhaler (ProAir HFA) shortness of breath or wheezing #6.7 grams budesonide-formoterol HFA 160 2 puff inhalation BID #10.2 grams 11/03/21 05/18/23 Rx mcg-4.5 mcg/actuation aerosol inhaler (Symbicort) furosemide 40 mg tablet 20 mg PO BID 12/12/21 05/18/23 History atorvastatin 80 mg tablet See Rx Instructions .Route 10/12/22 05/18/23 Rx .COMPLEX #90 tabs bimatoprost 0.01 % eye drops 1 drp ophthalmic (eye) DAILY 10/28/22 05/18/23 History ([place]) lidocaine 5 % topical patch 1 patch topical DAILY #15 ea 12/01/22 05/18/23 Rx bupropion HCl 150 mg tablet,12 hr 150 mg PO BID #180 tabs 12/24/22 05/18/23 Rx sustained-release metformin 500 mg tablet,extended 1,000 mg (2 x 500 mg) PO BID #360 01/04/23 05/18/23 Rx release 24 hr tabs nitroglycerin 0.4 mg sublingual 0.4 mg sublingual DIRECTED #30 01/04/23 05/18/23 Rx tablet tabs finasteride 5 mg tablet (Proscar) 5 mg PO HS #90 tabs 02/08/23 05/18/23 Rx amlodipine 10 mg tablet 10 mg PO DAILY 02/15/23 05/18/23 History apixaban 5 mg tablet (Eliquis) 5 mg PO BID 04/13/23 05/18/23 History sotalol 80 mg tablet 80 mg PO BID 04/13/23 05/18/23 History Exam Narrative Exam Narrative: PHYSICAL EXAM GENERAL APPEARANCE: Alert, healthy appearance, oriented, x 3,? in no acute distress HYDRATION: Well hydrated HEAD, EYES, EARS, NECK, THROAT: Head is normocephalic, pupils equal, round, reactive to light and accommodation, ocular movement intact, sclera clear and no jaundice. ?Dentition intact. LUNGS: normal respiration/normal chest excursion. ?Clear to auscultation bilaterally. ?No wheeze. ?HEART: Regular rate and rhythm. no murmurs recent placement of pacemaker. The pocket is well-healed. Capture is noted on monitor ABDOMEN: soft and non-tender to palpation.? Normal bowel sounds. Large right inguinal hernia. This is soft and nontender and reducible. Results Labs 05/18/23 16:40 05/18/23 16:40 Labs: Laboratory Results - last 24 hr 05/18/23 05/18/23 16:40 19:20 WBC 9.99 RBC 4.78 Hgb 13.9 Hct 41.1 MCV 86 MCH 29.1 MCHC 33.8 RDW 13.8 Plt Count 204 MPV 9.6 Immature Gran % 0.3 Neutrophils % 80.9 Lymphocytes % 8.5 Monocytes % 7.4 Eosinophils % 2.2 Basophils % 0.7 Nucleated RBC % 0.0 Absolute Neutrophils 8.08 H Absolute Lymphocytes 0.85 L Absolute Monocytes 0.74 Absolute Eosinophils 0.22 Absolute Basophils 0.07 VBG Lactate 1.0 Sodium 138 Potassium 3.2 L Chloride 102 Carbon Dioxide 26.8 Anion Gap 9.2 BUN 18 Creatinine 0.9 Est GFR (CKD-EPI 2020) 86.88 Glucose 156 H Calcium 9.5 Total Bilirubin 1.2 H AST 20 ALT 14 L Alkaline Phosphatase 151 H Total Protein 7.5 Albumin 3.9 Lipase 32 COVID-19 Source Nasal/Nares SARS-CoV-2 (PCR) Negative Last Vital Signs Temp 36.6 C 05/18/23 15:48 Pulse 70 05/18/23 20:35 Resp 20 05/18/23 20:35 BP 140/105 H 05/18/23 20:35 Pulse Ox 99 05/18/23 20:35 Time Spent Time spent with Patient: >75 minutes Time was spent: preparing to see the patient(eg.review tests), obtaining and/or reviewing separately otained hiistory, ordering medications,tests, procedures, referring, communicating with other health long term care pharmacist, indepentently interpreting results, counseling the patient and care coordination
[2023-05-18] MEDS: Lactated Ringers 1,000 ML 75 ML IV (23:47)
[2023-05-19 00:27] LABS: Bilirubin Negative (Negative); Blood Trace-intact (Negative); Clarity Clear (Clear); Glucose Negative (Negative); Ketones Negative (Negative); Leukocyte Esterase Negative (Negative); Nitrite Negative (Negative)
[2023-05-19 00:35] LABS: Bacteria Negative HPF (Negative); Crystals Negative HPF (Negative); Epithelial Cells Few HPF (Negative); Mucus Negative (Negative); WBC Negative HPF (0-5)
[2023-05-19 00:36] LABS: C & S Indicated? No
[2023-05-19] MEDS: Finasteride 5 MG TAB PO ×2 (01:04→21:05)
[2023-05-19 06:59] LABS: Anion Gap 9.4 mmol/L (3-11); BUN 14 mg/dL (7-18); CO2 26.6 mmol/L (21.0-32.0); CREATININE 0.9 mg/dL (0.70-1.30); Calcium 8.8 mg/dL (8.5-10.1); Chloride 106 mmol/L (98-107); Estimated GFR 86.88 (mL/min/1.73m2); Glucose 100 mg/dL (74-106); Magnesium 1.8 mg/dL (1.8-2.4); Potassium 3.2 mmol/L (3.5-5.1); Sodium 142 mmol/L (136-145)
[2023-05-19 07:16] VITALS: BP 150/64; PULSE 79; RESP 18; TEMP 36.4; O2SAT 98
--- NOTE | 2023-05-19 07:28 | PGE_ITS ---
Date of Service Date of service: 05/19/23 Time of Service: 07:28 Assessment and Plan Assessment and plan (1) Partial small bowel obstruction: Status: Acute Assessment and plan: Patient is feeling significantly improved this morning. Will trial soft, low fiber diet for breakfast. No BM since admission Encouraged sitting in the chair and ambulation as tolerated. if tolerating diet, will d/c home and set up out-patient follow up with Dr. Cordon. (2) Pacemaker: Status: Acute Subjective Subjective Interval history since last seen: Arrive with Mr. Romo, calm and relaxed this morning. He states his belly ache has resolved. He is eager to eat breakfast. Exam Const General: cooperative, healthy appearing and comfortable Orientation: alert and oriented x3 Resp Effort & Inspection: normal respiratory effort, no audible wheezes and no cough GI Inspection: normal to inspection Palpation: soft, no guarding and nontender Percussion: normal to percussion Objective Last Vital Signs Temp 36.4 C L 05/19/23 07:16 Pulse 79 05/19/23 07:16 Resp 18 05/19/23 07:16 BP 150/64 H 05/19/23 07:16 Pulse Ox 98 05/19/23 07:16 Laboratory Results - last 24 hr 05/18/23 05/18/23 05/18/23 16:40 19:20 23:45 WBC 9.99 RBC 4.78 Hgb 13.9 Hct 41.1 MCV 86 MCH 29.1 MCHC 33.8 RDW 13.8 Plt Count 204 MPV 9.6 Immature Gran % 0.3 Neutrophils % 80.9 Lymphocytes % 8.5 Monocytes % 7.4 Eosinophils % 2.2 Basophils % 0.7 Nucleated RBC % 0.0 Absolute Neutrophils 8.08 H Absolute Lymphocytes 0.85 L Absolute Monocytes 0.74 Absolute Eosinophils 0.22 Absolute Basophils 0.07 VBG Lactate 1.0 Sodium 138 Potassium 3.2 L Chloride 102 Carbon Dioxide 26.8 Anion Gap 9.2 BUN 18 Creatinine 0.9 Est GFR (CKD-EPI 2020) 86.88 Glucose 156 H Calcium 9.5 Magnesium Total Bilirubin 1.2 H AST 20 ALT 14 L Alkaline Phosphatase 151 H Total Protein 7.5 Albumin 3.9 Lipase 32 Urine Color Yellow Urine Clarity Clear Urine pH 6.0 Ur Specific [place] 1.010 Urine Protein 30 H Urine Ketones Negative Urine Blood Trace-intact H Urine Nitrite Negative Urine Bilirubin Negative Urine Urobilinogen 1.0 H Ur Leukocyte Esterase Negative Urine RBC 3-5 H Urine WBC Negative Ur Epithelial Cells Few Urine Crystals Negative Urine Bacteria Negative Urine Mucus Negative Ur Culture Indicated? No Urine Glucose Negative COVID-19 Source Nasal/Nares SARS-CoV-2 (PCR) Negative 05/19/23 06:08 WBC RBC Hgb Hct MCV MCH MCHC RDW Plt Count MPV Immature Gran % Neutrophils % Lymphocytes % Monocytes % Eosinophils % Basophils % Nucleated RBC % Absolute Neutrophils Absolute Lymphocytes Absolute Monocytes Absolute Eosinophils Absolute Basophils VBG Lactate Sodium 142 Potassium 3.2 L Chloride 106 Carbon Dioxide 26.6 Anion Gap 9.4 BUN 14 Creatinine 0.9 Est GFR (CKD-EPI 2020) 86.88 Glucose 100 Calcium 8.8 Magnesium 1.8 Total Bilirubin AST ALT Alkaline Phosphatase Total Protein Albumin Lipase Urine Color Urine Clarity Urine pH Ur Specific [place] Urine Protein Urine Ketones Urine Blood Urine Nitrite Urine Bilirubin Urine Urobilinogen Ur Leukocyte Esterase Urine RBC Urine WBC Ur Epithelial Cells Urine Crystals Urine Bacteria Urine Mucus Ur Culture Indicated? Urine Glucose COVID-19 Source SARS-CoV-2 (PCR) Time Spent with Patient Time Spent with Patient: <25 minutes Time was spent: preparing to see the patient(eg.review tests), obtaining and/or reviewing separately otained hiistory, ordering medications,tests, procedures, referring, communicating with other health rehab care assistant, indepentently interpreting results, counseling the patient and care coordination
[2023-05-19] MEDS: amLODIPine 10 MG TAB PO (07:57)
[2023-05-19] MEDS: Furosemide 20 MG TAB PO (07:57)
[2023-05-19] MEDS: Spironolactone 25 MG TAB PO (07:57)
[2023-05-19] MEDS: buPROPion-CR 150 MG TABCR PO ×2 (07:57→19:55)
[2023-05-19] MEDS: Budesonide/Formoterol 160/4.5 6 GM 60 PUFF INH IH ×2 (08:29→20:01)
--- NOTE | 2023-05-19 09:05 | PDOC.CMIN ---
Date of service: 05/19/23 Time of Service: 09:05 Care Management Initial Assmt Initial Assessment REASON FOR HOSPITALIZATION:: partial SBO PREVIOUS FUNCTIONAL STATUS/SOCIAL/FAMILY SUPPORTS:: Nader lives in a single family home in [facility] with his Abdirahman. They have 7 grown children and all but 2 of them live locally. They also have 17 grandchildren and 3 great grandchildren. 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 He stated that most of the time the driving was local but he did have occasional long distance trips. 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 Nader is independent at baseline and does not receive any community services. CURRENT FUNCTIONAL STATUS:: Nader was sitting up in bed when CM met with him. He was pleasant and engaged well with CM. His Abdirahman was present and joined in the conversation. Nader talked a bit about his family and his home. He explained that his house is 130-140 years old. It was his mother's house and he has lived in it fore about 65 years. Nader and Abdirahman had questions about the plan of care. He was admitted last night with a bowel obstruction. He stated that he has eaten soft foods today such as squash and mashed potatoes and tolerated them well. Nader is waiting to see the surgeon again this evening to see what the plan will be going forward. He stated he thought that he was to have another XRAY. ADVANCE DIRECTIVES:: On file. abdirahman ARANA Has patient been provided with info about the portal/API?: Yes Did the patient sign up for the portal?: No CODE STATUS:: Full Code INSURANCE COVERAGE / FINANCIAL ISSUES:: [facility] Medicare Replacement CURRENT HOME/COMMUNITY SERVICES/EQUIPMENT:: none PRIMARY CARE PHYSICIAN:: Jessie Bose POTENTIAL DISCHARGE NEEDS:: follow up with community providers PATIENT/FAMILY EDUCATION NEEDS:: Review of discharge instructions, limitations, diet, activity, follow up plan, discuss Ask Me Three TRANSPORTATION:: via private vehicle with PLAN:: Anticipate Nader will be discharged home with no new services. He will follow up with his community providers and plan of care and transport with friends/family. CM will continue to follow and assess for discharge needs. PFSH All Active Problems (Updated 05/18/23 @ 21:56 by Elly Cordon DO) Partial small bowel obstruction (Acute) Pacemaker (Acute) [facility] [place] Acute diarrhea (Acute) Hernia (Chronic) Bilateral inguinal hernia without obstruction or gangrene (Acute) Rotator cuff arthropathy of left shoulder (Acute) subacromial corticosteroid injection 10/28/22 Depression (Chronic) Long-term RX Wellbutrin BPH (benign prostatic hyperplasia) (Chronic) RX Finasteride Primary hypertension (Chronic) Myocardial infarction (Chronic) X2 Glaucoma (Chronic) 09/05/19 [place] Diverticulosis (Chronic) 2019 colonoscopy Obesity (Chronic) Sinus node dysfunction (Chronic) [facility] [place] stay off of BB Tubular adenoma (Chronic 10/04/08) Colonoscopy 10/04/15 & repeat 2019 (13!) Coronary artery disease (Chronic) [facility] [place] 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; cath in 1998 1-vessel dis Obstructive sleep apnea (Chronic) h/o CPAP; clausterphobic with masks so stopped using; then 100# weight loss; referred in 11/2019 but he declined COPD (chronic obstructive pulmonary disease) (Acute) Diabetes type 2, controlled (Chronic) Dx'ed in 1970s Medical History (Updated 05/18/23 @ 21:56 by Elly Cordon DO) Small bowel obstruction [facility] 05/2018; 02/2023 Normochromic normocytic anemia Bradycardia, sinus 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 media monitor Rupture of right biceps tendon PT Cataracts, bilateral 09/05/19 [place] OS>>OD Epidermal inclusion cyst Lipoma of head Removed 04/2019 [place] Anxiety and depression Pancreatitis [facility] 05/2018 (mild) Hyperlipidemia Atorvastatin Surgical History S/P colonoscopy (~05/02/19) 09/2015- [facility]- Tubular adenomas x2 05/2019--Brain x13 tubular adenomas Total knee replacement status R 12/11/2013 L S/P shoulder surgery S/P coronary artery stent placement 04/30/19 per pt he does not have a stent. 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 Pets and animals: Yes Sexually active: Yes Do you think of yourself as: straight/heterosexual Current gender identity: male What is your relationship status?: living with partner How often do you get together with friends or relatives?: twice per week Panel score (0-1 are the most socially isolated patients): 1 What type of physical activity do you participate in: walking Duration: > 90 minutes/day Frequency: 3-4 times per week Desirae/Mandaen: Sabianism Special desirae needs: No Seatbelt use: always Drive intox or ride w/intox home delivery driver: No Do you feel safe at home: Yes Do you feel safe in your relationship?: Yes Additional Social history: at bedside
[2023-05-19] MEDS: Potassium Chloride 20 MEQ TABCR 40 MEQ PO (14:46)
[2023-05-19 15:07] VITALS: BP 185/49; PULSE 75; RESP 18; TEMP 36; O2SAT 95
[2023-05-19] MEDS: Acetaminophen 325 MG TAB 650 MG PO ×2 (16:37→21:05)
--- NOTE | 2023-05-19 17:14 | W.PM.PROGNOT ---
Date of Service Date of service: 05/19/23 Time of Service: 17:14 Assessment and Plan Assessment and plan (1) Partial small bowel obstruction: Status: Acute Assessment and plan: Although much of his exam is reassuring, I am disappointed that he has not had any bowel function through today. In the recrudescence of his abdominal discomfort is also a little concerning. I will back his diet down to liquids again, and we will try Gastrografin challenge tonight. Subjective Subjective Interval history since last seen: [place] tried to eat some soft diet for lunch, but he did not have much appetite. He felt okay through the morning time, but he had some increasing abdominal pain this afternoon. Exam GI Other: His abdomen is soft and mildly distended. He has a little bit of tenderness mostly in the right upper quadrant. Objective Last Vital Signs Temp 96.8 F L 05/19/23 15:07 Pulse 75 05/19/23 15:07 Resp 18 05/19/23 15:07 BP 185/49 H 05/19/23 15:07 Pulse Ox 95 05/19/23 15:07 Laboratory Results - last 24 hr 05/18/23 05/18/23 05/19/23 19:20 23:45 06:08 Sodium 142 Potassium 3.2 L Chloride 106 Carbon Dioxide 26.6 Anion Gap 9.4 BUN 14 Creatinine 0.9 Est GFR (CKD-EPI 2020) 86.88 Glucose 100 Calcium 8.8 Magnesium 1.8 Urine Color Yellow Urine Clarity Clear Urine pH 6.0 Ur Specific [place] 1.010 Urine Protein 30 H Urine Ketones Negative Urine Blood Trace-intact H Urine Nitrite Negative Urine Bilirubin Negative Urine Urobilinogen 1.0 H Ur Leukocyte Esterase Negative Urine RBC 3-5 H Urine WBC Negative Ur Epithelial Cells Few Urine Crystals Negative Urine Bacteria Negative Urine Mucus Negative Ur Culture Indicated? No Urine Glucose Negative COVID-19 Source Nasal/Nares SARS-CoV-2 (PCR) Negative Time Spent with Patient Time Spent with Patient: 35-49 minutes Time was spent: preparing to see the patient(eg.review tests), ordering medications,tests, procedures and counseling the patient
[2023-05-19] MEDS: Gastrografin 120 ML BTL PO (17:38)
[2023-05-19 19:56] VITALS: BP 164/96; PULSE 70; RESP 18; TEMP 36.8; O2SAT 94
[2023-05-19] MEDS: Bimatoprost 0.01% 2.5 ML BTL OP (21:06)
[2023-05-19 23:43] VITALS: BP 165/91
[2023-05-20 00:03] LABS: C Diff PCR Negative (Negative)
[2023-05-20 00:07] VITALS: BP 170/86
[2023-05-20] MEDS: Ondansetron 4 MG/2 ML VIAL IVP (02:07)
[2023-05-20] MEDS: Lactated Ringers 1,000 ML 75 ML IV ×2 (02:07→18:40)
[2023-05-20] MEDS: MORPHine 2 MG/ML SYR IVP (03:57)
[2023-05-20] MEDS: Normal Saline Flush 10 ML SYR IVP (03:57)
--- NOTE | 2023-05-20 06:00 | DI.RAD_ITS ---
Exam(s) XR ABDOMEN FLAT PLATE EXAM: XR ABDOMEN FLAT PLATE CLINICAL HISTORY: Bowel obstruction. TECHNIQUE: 2D digital imaging was performed. COMPARISON: CR XR ABDOMEN FLAT PLATE from 02/16/[address] ABDOMEN PELVIS W from 05/18/2023 FINDINGS: Single AP supine view: There is oral contrast seen throughout the normal caliber colon. Stomach contains air but not overly distended. There are some air-filled but not grossly distended small bowel loops in the right-side of the abdomen no obvious bowel displacement. Appendix is outlined with contrast and appears unremar kable. Visualized lung bases are clear. Right hemidiaphragm is elevated and there is interposition of the hepatic flexure of the colon between the hemidiaphragm and the liver, as seen on recent CT sca n but no obstruction at this level. Bipolar pacemaker wires in the heart noted. Visualized lung bas es are clear. IMPRESSION: Oral contrast has passed into the colon implying that the small bowel obstruction is not high grade. However, please note that this is a supine view and not an upright view and therefore suboptimal for determining the presence of true small-bowel obstruction and also suboptimal for determining the pre sence of possible free intraperitoneal air. DATA REPOSITORY: RADIATION DOSE DELIVERED:
[2023-05-20] MEDS: Budesonide/Formoterol 160/4.5 6 GM 60 PUFF INH IH ×2 (08:15→19:55)
[2023-05-20 08:39] LABS: Anion Gap 10.9 mmol/L (3-11); BUN 11 mg/dL (7-18); CO2 26.1 mmol/L (21.0-32.0); Calcium 9.4 mg/dL (8.5-10.1); Chloride 104 mmol/L (98-107); Estimated GFR 76.56 (mL/min/1.73m2); Glucose 129 mg/dL (74-106); Potassium 3.3 mmol/L (3.5-5.1); Sodium 141 mmol/L (136-145)
--- NOTE | 2023-05-20 08:44 | DI.VRAD_ITS ---
PROCEDURE INFORMATION: Exam: XR Abdomen Exam date and time: 05/20/2023 5:52 AM Age: 78 years old Clinical indication: Other: Bowel obstruction TECHNIQUE: Imaging protocol: Radiologic exam of the abdomen. Views: Frontal supine view of the abdomen. 1 View. COMPARISON: No relevant prior studies are available for comparison. FINDINGS: Tubes, catheters and devices: Cardiac pacing device. Diaphragm: Elevated right hemidiaphragm. Gastrointestinal tract: Gas and contrast are seen in the colon. Few dilated gas filled small bowel loops also noted. IMPRESSION: Dilated gas filled small bowel loops, could represent ileus or obstruction, likely early/partial. Gas and contrast are seen in the colon. Dictated and Authenticated by: Viry Reyes MD. Ordering:MARY CARMEN Travis MD
[2023-05-20 09:11] VITALS: BP 167/84; PULSE 78; RESP 18; TEMP 36; O2SAT 97
[2023-05-20 10:14] LABS: RBC 4.72 10^6/uL (4.36-5.78); WBC 4.89 10^3/uL (4.4-10.8)
[2023-05-20 10:15] LABS: HCT 41.6 % (40.0-50.0); HGB 13.9 g/dL (13.5-17.5); MCH 29.4 pg (27.0-33.0); MCHC 33.4 % (32.0-36.0); MCV 88 fL (80-95); MPV 10.5 fL (8.0-11.0); Platelet Count 193 10^3/uL (130-400); RDW 14.1 % (11.8-14.1); RDW-SD 45.3 fL
[2023-05-20] MEDS: amLODIPine 10 MG TAB PO (10:59)
[2023-05-20] MEDS: buPROPion-CR 150 MG TABCR PO ×2 (10:59→20:51)
[2023-05-20] MEDS: Spironolactone 25 MG TAB PO (11:00)
--- NOTE | 2023-05-20 11:04 | PGE_ITS ---
Date of Service Date of service: 05/20/23 Time of Service: 11:04 Assessment and Plan Assessment and plan (1) Partial small bowel obstruction: Status: Acute Assessment and plan: Clinically patient is feeling better. He is passing gas and tolerating clears. He still has some pain. Results of x-ray noted Continue with supportive care. Continue urging ambulation 30 mins spent with the patient today. (2) Pacemaker: Status: Acute (3) Bilateral inguinal hernia without obstruction or gangrene: Status: Acute Qualifiers: Recurrence: non-recurrent Qualified Code(s): K40.20 - Bilateral inguinal hernia, without obstruction or gangrene, not specified as recurrent (4) BPH (benign prostatic hyperplasia): Status: Chronic Qualifiers: Lower urinary tract symptom presence: symptoms absent Qualified Code(s): N40.0 - Benign prostatic hyperplasia without lower urinary tract symptoms (5) Primary hypertension: Status: Chronic (6) Myocardial infarction: Status: Chronic (7) Glaucoma: Status: Chronic (8) Diverticulosis: Status: Chronic (9) Obesity: Status: Chronic Qualifiers: Obesity type: unspecified obesity type Obesity classification: adult class 1 (BMI 30 - 34.9) Serious obesity comorbidity presence: with serious comorbidity Body mass index: BMI 33.0-33.9 Qualified Code(s): E66.9 - Obesity, unspecified; Z68.33 - Body mass index (BMI) 33.0-33.9, adult (10) Sinus node dysfunction: Status: Chronic (11) Tubular adenoma: Status: Chronic (12) Coronary artery disease: Status: Chronic Qualifiers: Coronary Disease-Associated Artery/Lesion type: unspecified vessel or lesion type [place] vs. 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 no headaches. No CP or SOB. no productive cough. no dysuria. no leg pain or swelling. -Patient complains of pain in his right lower leg. This is a chronic issue. There is no swelling or redness. He has a history of chronic skin infections for which he was on chronic immune no suppression with penicillin for many years. He stopped this 2 months ago. There is no signs of any recurrent infection. I do not know if he is ever had a work-up for osteomyelitis. -From a bowel obstruction standpoint, today the patient is tolerating clear liquids, he is passing gas and stool. He has been up walking. Exam Narrative Exam Narrative: PHYSICAL EXAM GENERAL APPEARANCE: Alert, healthy appearance, oriented, x 3,? in no acute distress LUNGS: normal respiration/normal chest excursion. ?Clear to auscultation bilaterally. ?No wheeze. ?HEART: Regular rate and rhythm. no murmurs ext: no redness/swelling ABDOMEN: soft Normal bowel sounds.? mild pain around umbilicus. no distention. no pain in ingunal hernia. Objective Last Vital Signs Temp 36.0 C L 05/20/23 09:11 Pulse 78 05/20/23 09:11 Resp 18 05/20/23 09:11 BP 167/84 H 05/20/23 09:11 Pulse Ox 97 05/20/23 09:11 Laboratory Results - last 24 hr 05/19/23 05/20/23 23:10 06:30 WBC 4.89 RBC 4.72 Hgb 13.9 Hct 41.6 MCV 88 MCH 29.4 MCHC 33.4 RDW 14.1 Plt Count 193 MPV 10.5 Sodium 141 Potassium 3.3 L Chloride 104 Carbon Dioxide 26.1 Anion Gap 10.9 BUN 11 Creatinine 1.0 Est GFR (CKD-EPI 2020) 76.56 Glucose 129 H Calcium 9.4 Stl C.difficile Tox PCR Negative Time Spent with Patient Time Spent with Patient: 25-34 minutes Time was spent: preparing to see the patient(eg.review tests), obtaining and/or reviewing separately otained hiistory, ordering medications,tests, procedures, referring, communicating with other health health care / medical job titles, indepentently interpreting results, counseling the patient and care coordination
--- NOTE | 2023-05-20 11:48 | CMPROGNOTE_ITS ---
Date of service: 05/20/23 Time of Service: 11:48 Care Management Progress Note Progress Note Text Progress Note Text: S/O:Nader was sitting on the side of the bed visiting with his Nelia when CM met with him. He informed CM that he is back on a liquid diet. He had some soft solids yesterday but experienced an increase in pain and his abdominal imaging still suggested a possible ileus or obstruction. He will remain hospitalized overnight but emphatically reported to CM that he intends to discharge home tomorrow. A: Nader is a 78 year old man admitted with a bowel obstruction P: Anticipate Nader will be discharged home with no new services. He will follow u p with his community providers and plan of care and transport with friends/family. CM will continue to follow and assess for discharge needs.
[2023-05-20 15:30] VITALS: BP 153/98; PULSE 81; RESP 18; TEMP 36.1; O2SAT 96
[2023-05-20] MEDS: Finasteride 5 MG TAB PO (20:51)
[2023-05-20] MEDS: Bimatoprost 0.01% 2.5 ML BTL OP (20:51)
[2023-05-21 01:01] LABS: Campylobacter PCR Negative (Negative); Salmonella PCR Negative (Negative); Shiga Toxin PCR Negative (Negative); Shigella/Enteroinvasive Ecoli Negative (Negative)
[2023-05-21 01:12] VITALS: BP 163/97; PULSE 75; RESP 16; TEMP 36.5; O2SAT 94
[2023-05-21 07:53] VITALS: BP 159/90; PULSE 74; RESP 18; TEMP 37.6; O2SAT 96
[2023-05-21] MEDS: amLODIPine 10 MG TAB PO (08:24)
[2023-05-21] MEDS: Spironolactone 25 MG TAB PO (08:24)
[2023-05-21] MEDS: Furosemide 20 MG TAB PO (08:25)
[2023-05-21] MEDS: buPROPion-CR 150 MG TABCR PO (08:25)
[2023-05-21] MEDS: Budesonide/Formoterol 160/4.5 6 GM 60 PUFF INH IH (08:30)
[2023-05-21 10:04] LABS: HCT 41.2 % (40.0-50.0); HGB 14.1 g/dL (13.5-17.5); MCH 29.3 pg (27.0-33.0); MCHC 34.2 % (32.0-36.0); MCV 86 fL (80-95); MPV 9.7 fL (8.0-11.0); Platelet Count 205 10^3/uL (130-400); RBC 4.82 10^6/uL (4.36-5.78); RDW 13.9 % (11.8-14.1); RDW-SD 43.2 fL; WBC 6.04 10^3/uL (4.4-10.8)
[2023-05-21 10:15] LABS: Anion Gap 10.5 mmol/L (3-11); BUN 7 mg/dL (7-18); CO2 28.5 mmol/L (21.0-32.0); Calcium 9.3 mg/dL (8.5-10.1); Chloride 101 mmol/L (98-107); Estimated GFR 76.56 (mL/min/1.73m2); Glucose 194 mg/dL (74-106); Potassium 3.4 mmol/L (3.5-5.1); Sodium 140 mmol/L (136-145)
--- NOTE | 2023-05-21 10:59 | PDOC.CMPRO ---
Date of service: 05/21/23 Time of Service: 10:59 Care Management Progress Note Progress Note Text Progress Note Text: S/O:Nader was sitting on the side of the bed visiting with his Nelia when CM met with him. A: Nader is a 78 year old man admitted with a bowel obstruction P: Anticipate Nader will be discharged home with no new services. He will follow up with his community providers and plan of care and transport with friends/family. CM will continue to follow and assess for discharge needs.
--- NOTE | 2023-05-21 12:03 | W.PM.DS.N ---
Date of service: 05/21/23 Time of Service: 12:03 DS: Diagnosis Discharge Diagnosis (1) Partial small bowel obstruction: Status: Acute (2) Pacemaker: Status: Acute (3) Bilateral inguinal hernia without obstruction or gangrene: Status: Acute (4) BPH (benign prostatic hyperplasia): Status: Chronic (5) Primary hypertension: Status: Chronic (6) Myocardial infarction: Status: Chronic (7) Glaucoma: Status: Chronic (8) Diverticulosis: Status: Chronic (9) Obesity: Status: Chronic (10) Sinus node dysfunction: Status: Chronic (11) Tubular adenoma: Status: Chronic (12) Coronary artery disease: Status: Chronic (13) Obstructive sleep apnea: Status: Chronic (14) Diabetes type 2, controlled: Status: Chronic (15) COPD (chronic obstructive pulmonary disease): Status: Acute (16) Hyperlipidemia: Discharge Plan Disposition Condition: Fair Discharge Details Reason For Visit: SBO Admit Date/Time: 05/18/23 22:43 Admit Provider: Elly Cordon Attending Provider: Elly Cordon Primary Care Provider: Jessie Bose Hospital Course Hospital Course: Corona is 78 years old, he comes to the emergency department with a chief complaint of abdominal pain with nausea. He underwent a CAT scan that demonstrated a partial small bowel obstruction. At that time, he had no more nausea or vomiting, and in fact had a little bit of an appetite. He was admitted to the hospital, and his diet was advanced, but he did have some recrudescence of his pain. He underwent a Gastrografin challenge. During the course of the study, he did have resumption of bowel function, and had 5 bowel movements. Imaging demonstrated contrast into the colon. His diet was advanced back to liquids, and he was subsequently discharged home with follow-up instructions. Home Meds and New Rx's Prescriptions: Continued aspirin 81 mg tablet,delayed release (DR/EC) 81 mg PO DAILY Hold Instructions: Pt Stopped/Never Started budesonide-formoterol [Symbicort] 160-4.5 mcg/actuation HFA aerosol inhaler 2 puff Inhalation BID Qty: 10.2 11RF Lumigan 0.01 % drops 1 drp ophthalmic (eye) DAILY nitroglycerin 0.4 mg tablet, sublingual 0.4 mg SUBLINGUAL DIRECTED Qty: 30 0RF metformin 500 mg tablet extended release 24 hr 1,000 mg PO BID Qty: 360 3RF Rx Instructions: ER formulation to prevent loose stool from IR spironolactone 25 mg tablet 25 mg PO DAILY albuterol sulfate [ProAir HFA] 90 mcg/actuation HFA aerosol inhaler 1 - 2 puff Inhalation Q6H PRN Qty: 6.7 2RF Rx Instructions: SOB/wheeze furosemide 40 mg tablet 20 mg PO BID Rx Instructions: take 20 mg (1/2 tab) BID atorvastatin 80 mg tablet See Rx Instructions .ROUTE .COMPLEX Qty: 90 3RF Dose Instruction: TAKE ONE TABLET BY MOUTH AT BEDTIME Rx Instructions: TAKE ONE TABLET BY MOUTH AT BEDTIME bupropion HCl 150 mg tablet sustained-release 12 hr 150 mg PO BID Qty: 180 3RF finasteride [Proscar] 5 mg tablet 5 mg PO HS Qty: 90 3RF acetaminophen [Tylenol] 325 mg capsule 650 mg PO Q6H PRN (Reason: fever or pain) Qty: 30 0RF cholecalciferol (vitamin D3) [Vitamin D3] 50 mcg (2,000 unit) Capsule 50 mcg PO DAILY lidocaine 5 % adhesive patch,medicated 1 patch topical DAILY Qty: 15 0RF Hold Instructions: Pt Stopped/Never Started Patient Comments: apply to left shoulder Rx Instructions: leave on most painful area for up to 12 hrs sotalol 80 mg tablet 80 mg PO BID Patient Comments: TAKE ONE TABLET BY MOUTH EVERY 12 HOURS Eliquis 5 mg tablet 5 mg PO BID Patient Comments: TAKE ONE TABLET BY MOUTH TWICE A DAY amlodipine 10 mg tablet 10 mg PO DAILY Rx Instructions: TAKE ONE TABLET BY MOUTH EVERY DAY Discharge Instructions Instructions: Bowel Obstruction (DC) Additional Instructions: Corona, it was nice to see you again, but I am sorry we keep having these encounters in the hospital. As you probably recall, came to the hospital with abdominal discomfort similar to episodes that you have experienced in the past. Your CT scan showed signs of a partial bowel obstruction. Like we talked about while you are in the hospital, bowel obstructions typically occur as a result of some internal scar tissue. Which I suspect is the case for you. Although you do have a large groin hernia, that did not seem to be the point of the blockage. Like last time, we decreased her diet, and gave you a medication called Gastrografin, which may have helped move some things through the obstruction. Your bowel movements certainly seem to be better, and your abdomen is less swollen than it was when you came in. We have made an appointment for you with Dr. Cordon on the at 1 PM to see how things are progressing. If you have any questions in the meantime, please do not hesitate to call. For the next few days, I would keep your diet very simple. Things that are easily digestible such as Jell-O, soup broths, mashed potatoes, and other soft or almost pur?ed type foods will probably be the easiest things to pass. Again, if you do not feel well, or have any questions, please make sure to let us know. Referrals: Elly Cordon, [OSTEOPATHIC DOCTOR] - (May 27 at 1 PM.) Activity:: Activity as Tolerated Activity:: Activity as Tolerated Diet:: Soft, liquid and pur?ed DS: Summary Time Spent with Patient providing and/or coordinating discharge services: Less than 30 minutes Status at Discharge Functional status at discharge: independent ambulation Overall status at discharge: patient is progressing back to baseline Mental Status: mental status grossly normal Speech and Movement: speech and movement normal Mood: congruent mood Affect: normal affect Exam GI Other: Abdomen is soft and not distended. He has no tenderness. Psych Mental Status: mental status grossly normal Speech and Movement: speech and movement normal Mood: congruent mood Affect: normal affect DS: Data Vitals/I&O Vitals and I&O: Vital Signs Temperature 99.7 F H 05/21/23 07:53 Temperature Source Tympanic 05/21/23 07:53 Pulse 74 05/21/23 07:53 Pulse Rhythm Regular 05/20/23 22:29 Pulse 70 05/18/23 21:40 Respiratory Rate 18 05/21/23 07:53 Respiratory Effort Normal, Non-Labored 05/20/23 22:29 Respiratory Depth Normal 05/20/23 22:29 Respiratory Pattern Normal 05/20/23 22:29 Blood Pressure 159/90 H 05/21/23 07:53 Blood Pressure Mean 115 05/18/23 21:33 Blood Pressure Position Sitting 05/18/23 15:48 Pulse Oximetry 96 05/21/23 07:53 Oxygen Delivery Method Room Air 05/21/23 07:53 Oxygen Flow Rate 0 05/21/23 07:53 Pain Level 0 05/21/23 07:53 Comment bp called over radio 05/21/23 07:53 Intake & Output 05/20/23 05/21/23 05/21/23 23:59 11:59 23:59 Intake Total 1000 / 1800 963.75 / 963.75 Balance 1000 / 1800 963.75 / 963.75 Intake: IV 1000 / 1000 713.75 / 713.75 Oral 250 / 250 Other: Urine Color Yellow Urine Appearance Clear Urine Odor None Comment unmeasured void Voiding Methods Toilet Data Completed and Pending Labs on day of discharge: Labs from last 24 hours 05/21/23 05/19/23 09:58 23:10 WBC 6.04 RBC 4.82 Hgb 14.1 Hct 41.2 MCV 86 MCH 29.3 MCHC 34.2 RDW 13.9 Plt Count 205 MPV 9.7 Sodium 140 Potassium 3.4 L Chloride 101 Carbon Dioxide 28.5 Anion Gap 10.5 BUN 7 Creatinine 1.0 Est GFR (CKD-EPI 2020) 76.56 Glucose 194 H Calcium 9.3 Stool Campylobacter PCR Negative Stool Salmonella PCR Negative Stool Shigella PCR Negative Shiga Toxin (PCR) Negative PFSH All Active Problems Partial small bowel obstruction (Acute) Pacemaker (Acute) [facility] [place]2023 Acute diarrhea (Acute) Hernia (Chronic) Bilateral inguinal hernia without obstruction or gangrene (Acute) Rotator cuff arthropathy of left shoulder (Acute) subacromial corticosteroid injection 10/28/22 Depression (Chronic) Long-term RX Wellbutrin BPH (benign prostatic hyperplasia) (Chronic) RX Finasteride Primary hypertension (Chronic) Myocardial infarction (Chronic) X2 Glaucoma (Chronic) 09/05/19 [place] Diverticulosis (Chronic) 2019 colonoscopy Obesity (Chronic) Sinus node dysfunction (Chronic) [facility] [place]iolgy; stay off of BB Tubular adenoma (Chronic 10/04/08) Colonoscopy 10/04/15 & repeat 2019 (13!) Coronary artery disease (Chronic) [facility] [place] 1998 with angina; cath in 1998 1-vessel dis Obstructive sleep apnea (Chronic) h/o CPAP; clausterphobic with masks so stopped using; then 100# weight loss; referred in 11/2019 but he declined COPD (chronic obstructive pulmonary disease) (Acute) Diabetes type 2, controlled (Chronic) Dx'ed in 1970s Medical History Small bowel obstruction [facility] 05/2018; 02/2023 Normochromic normocytic anemia Bradycardia, sinus 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 surveillance system monitor Rupture of right biceps tendon PT Cataracts, bilateral 09/05/19 [place] OS>>OD Epidermal inclusion cyst Lipoma of head Removed 04/2019 [place] Anxiety and depression Pancreatitis [facility] 05/2018 (mild) Hyperlipidemia Atorvastatin Surgical History S/P colonoscopy (~05/02/19) 09/2015- [place]- Tubular adenomas x2 05/2019--Brain x13 tubular adenomas Total knee replacement status R 12/11/2013 L S/P shoulder surgery S/P coronary artery stent placement 04/30/19 per pt he does not have a stent. 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 Pets and animals: Yes Sexually active: Yes Do you think of yourself as: straight/heterosexual Current gender identity: male What is your relationship status?: living with partner How often do you get together with friends or relatives?: twice per week Panel score (0-1 are the most socially isolated patients): 1 What type of physical activity do you participate in: walking Duration: > 90 minutes/day Frequency: 3-4 times per week Desirae/Advent: Yazidism Special desirae needs: No Seatbelt use: always Drive intox or ride w/intox waste collection driver: No Do you feel safe at home: Yes Do you feel safe in your relationship?: Yes Additional Social history: at bedside Time Spent with Patient Time Spent with Patient: <45 minutes Time was spent: preparing to see the patient(eg.review tests), indepentently interpreting results, counseling the patient and care coordination
--- NOTE | 2023-05-21 15:33 | PDOC.CMDIS ---
Date of service: 05/21/23 Time of Service: 15:33 LACE Index Scoring Tool Questions: Length of Stay (in days): 3 Was the patient admitted via the E.D.?: Yes Comorbidities: Previous M.I., Diabetes w/o Complication and Chronic Pulmonary Disease E.D. Visits: 4 Answers: Total Score: 15 Risk of Readmission: High Risk Care Management Discharge Plan Reason for Hospitalization: partial SBO Discharge Plan: Don will be discharged home with no new services. He will follow up with his community providers and plan of care and transport with friends/family. Patient/Family Education Needs: Review of discharge instructions, limitations, diet, activity, follow up plan, discuss Ask Me Three
== END 2023-05-21 13:43 | disposition home or self-care (01) | DRG 390 ==
LOC: ER 20:58 → MS 23:33
PROVIDERS: Surgery; Admitting Provider Surgery; Emergency Provider Emergency Medicine; PCP Nurse Practitioner Adult Health; Visit Provider Surgery
DX: N40.0 Benign prostatic hyperplasia without lower urinary tract symptoms; K56.600 Partial intestinal obstruction, unspecified as to cause; I10 Essential (primary) hypertension; H40.9 Unspecified glaucoma; E66.9 Obesity, unspecified; I25.10 Atherosclerotic heart disease of native coronary artery without angina pectoris; G47.33 Obstructive sleep apnea (adult) (pediatric); E11.9 Type 2 diabetes mellitus without complications; F41.8 Other specified anxiety disorders; K40.20 Bilateral inguinal hernia, without obstruction or gangrene, not specified as recurrent; J43.9 Emphysema, unspecified; E78.5 Hyperlipidemia, unspecified; I25.2 Old myocardial infarction; Z68.33 Body mass index [BMI] 33.0-33.9, adult; Z95.0 Presence of cardiac pacemaker; Z95.5 Presence of coronary angioplasty implant and graft; Z79.01 Long term (current) use of anticoagulants; K57.90 Diverticulosis of intestine, part unspecified, without perforation or abscess without bleeding; I49.9 Cardiac arrhythmia, unspecified
CPT/HCPCS: 36415; 80048; 80053; 83690; 85027; 87493; 87505; 87635; 94640; 96374; 96375; 99222; 99231; 99238; 99285; 74018; 74177; 81003; 81015; 83605; 83735; 85025; 94664; J2270; J2405; J3490

== ENCOUNTER → 2023-05-27 12:58 | Outpatient (BNVA) | payer MEDICARE, SELFPAY | PROVIDERS: PCP Nurse Practitioner Adult Health; Referring Provider Nurse Practitioner Adult Health; Visit Provider Surgery | DX: R19.7 Diarrhea, unspecified (principal); K46.9 Unspecified abdominal hernia without obstruction or gangrene; K40.20 Bilateral inguinal hernia, without obstruction or gangrene, not specified as recurrent; K62.5 Hemorrhage of anus and rectum | CPT/HCPCS: 99213 ==

== ENCOUNTER 2023-07-02 15:43 | Outpatient (REF) | payer MEDICARE, SELFPAY ==
[2023-07-02 23:29] LABS: Campylobacter PCR Negative (Negative); Salmonella PCR Negative (Negative); Shiga Toxin PCR Negative (Negative); Shigella/Enteroinvasive Ecoli Negative (Negative)
[2023-07-07 12:35] LABS: Calprotectin 50.4 mcg/g
== END 2023-07-02 15:44 | disposition home or self-care (01) ==
LOC: LBN 15:43
PROVIDERS: PCP Nurse Practitioner Adult Health; Visit Provider Surgery
DX: R19.7 Diarrhea, unspecified; K58.2 Mixed irritable bowel syndrome; K62.5 Hemorrhage of anus and rectum; R19.5 Other fecal abnormalities
CPT/HCPCS: 87505; 82270; 83993

== ENCOUNTER 2023-07-27 06:04 | Observation (INO) | payer OTHER, SELFPAY ==
--- NOTE | 2023-07-26 10:41 | W.PM.HP.N ---
Date of service: 07/27/23 Time of Service: 07:44 Assessment and Plan Assessment and plan (1) PAF (paroxysmal atrial fibrillation): Status: Acute (2) Memory loss: Status: Acute (3) Pacemaker: Status: Acute (4) Bilateral inguinal hernia without obstruction or gangrene: Status: Acute Assessment and plan: surgery today reivew risk vs benefits and home epectations will need to home PT and RN. Qualifiers: Recurrence: non-recurrent Qualified Code(s): K40.20 - Bilateral inguinal hernia, without obstruction or gangrene, not specified as recurrent (5) BPH (benign prostatic hyperplasia): Status: Chronic Qualifiers: Lower urinary tract symptom presence: symptoms absent Qualified Code(s): N40.0 - Benign prostatic hyperplasia without lower urinary tract symptoms (6) Primary hypertension: Status: Chronic (7) Glaucoma: Status: Chronic (8) Diverticulosis: Status: Chronic (9) Obesity: Status: Chronic Qualifiers: Body mass index: BMI 33.0-33.9 Obesity classification: adult class 1 (BMI 30 - 34.9) Obesity type: unspecified obesity type Serious obesity comorbidity presence: with serious comorbidity Qualified Code(s): E66.9 - Obesity, unspecified; Z68.33 - Body mass index (BMI) 33.0-33.9, adult (10) Coronary artery disease: Status: Chronic Qualifiers: Associated angina: with stable angina Coronary Disease-Associated Artery/Lesion type: unspecified vessel or lesion type [place] vs. transplanted heart: jackson heart Qualified Code(s): I25.118 - Atherosclerotic heart disease of jackson coronary artery with other forms of angina pectoris (11) Obstructive sleep apnea: Status: Chronic (12) COPD (chronic obstructive pulmonary disease): Status: Acute Qualifiers: COPD type: emphysema Emphysema type: unspecified Qualified Code(s): J43.9 - Emphysema, unspecified (13) Diabetes type 2, controlled: Status: Chronic Qualifiers: Diabetes mellitus complication status: without complication Diabetes mellitus [facility] insulin use: without [facility] use Qualified Code(s): E11.9 - Type 2 diabetes mellitus without complications History of Present Illness Narrative: Patient is here today for bilateral inguinal hernia repair. I did review the results of his recent cardiology visit on 07/20/23 from [facility]. His notes that he has had more issues with memory, falling and has been tired lately. The patient's also notes that he has been complaining of pain in his hernias. This keeps him from doing activities of daily living and from walking. He has to go sit down because of the pain. We reviewed pros and cons of doing surgery. He is going to be having general anesthesia which can can cause more issues with confusion and memory loss. We also discussed that this is a 3-week healing process. There will be pain and discomfort involved. He will need to do some physical therapy to recover. He and his feel the pain and discomfort from the hernias are limiting his activities of daily living and being able to enjoy his life. They are also inhibiting his ability to walk and complete trip to the grocery store. We discussed pros and cons of surgery injury. Like to proceed with surgery as scheduled. Risks: I discussed the nature of inguinal hernias with the pt and how they form, and consequences of incarceration.? We discussed the warning signs of incarcerations (Severe pain/hardness and inability to reduce the hernia/vomiting/redness and fever) ?and when/how to seek medical attention (our office/PCP or ED).? ?I discussed the surgery in detail and the complications related to the surgery and the anesthesia.? I do recommend that the pt have a nerve block for postop pain control.? We also discussed multi-modality pain management.? Pt. expressed understanding; all questions were answered to the patient satisfaction and they do wish to proceed with surgery.? Patient was given an educational booklet & and a copy of the postop instructions and expressed understanding of how to care for themselves after surgery. Risks of the surgery include but are not limited to: Bleeding/infection/pneumonia/damage to blood vessels or bladder or?bowels/blood clots or PE/chronic pain/urinary retention/chronic numbness/reoccurrence/reaction to mesh requiring removal/damage to testicle or sterility/complications of anesthesia.?We also discussed the possibility of postop urinary retention or bruising. ?The pt will have a pre-Op PE to ensure fitness for anesthesia, and preOp cardiac testing as deemed necessary. ?The procedure will be done with abx and under sterile conditions. This is an outpt day surgery.? ??The pt requires a ride home from surgery and someone to stay with the pt for 24 hrs after anesthesia.? No lifting over 5 pounds for 2-3 weeks after surgery.? Also take Miralax postop to avoid constipation. Review of Systems All systems reviewed & are unremarkable except as noted in HPI and below PFSH All Active Problems PAF (paroxysmal atrial fibrillation) (Acute) [facility] Cardio-07/20/23 Memory loss (Acute) [facility] Cardio- 07/20/23 Pacemaker (Acute) [facility] 03/23/2023 Acute diarrhea (Acute) Hernia (Chronic) Bilateral inguinal hernia without obstruction or gangrene (Acute) Rotator cuff arthropathy of left shoulder (Acute) subacromial corticosteroid injection 10/28/22 Primary hypertension (Chronic) BPH (benign prostatic hyperplasia) (Chronic) RX Finasteride Glaucoma (Chronic) 09/05/19 [place] Depression (Chronic) Long-term RX Wellbutrin Diverticulosis (Chronic) 2018 colonoscopy Sinus node dysfunction (Chronic) [facility] Cardiolgy; stay off of BB Obesity (Chronic) Tubular adenoma (Chronic 10/04/08) Colonoscopy 10/04/15 & repeat 2019 (13!) Diabetes type 2, controlled (Chronic) Dx'ed in COPD (chronic obstructive pulmonary disease) (Acute) Coronary artery disease (Chronic) [facility] [employer] 1998 with angina; cath in 1998 1-vessel dis Obstructive sleep apnea (Chronic) h/o CPAP; clausterphobic with masks so stopped using; then 100# weight loss; referred in 11/2019 but he declined Medical History Myocardial infarction X2 1997, 1998 Small bowel obstruction [facility] 05/2018; 02/2023 Normochromic normocytic anemia Bradycardia, sinus 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 site monitor Rupture of right biceps tendon PT Cataracts, bilateral 09/05/19 [place] OS>>OD Epidermal inclusion cyst Lipoma of head Removed 04/2019 [place]iana Anxiety and depression Pancreatitis [facility] 05/2018 (mild) Hyperlipidemia Atorvastatin Surgical History S/P colonoscopy (~05/02/19) 09/2015- [place]- Tubular adenomas x2 05/2019--Brain x13 tubular adenomas Total knee replacement status R 12/11/2013 L S/P shoulder surgery S/P coronary artery stent placement 04/30/19 per pt he does not have a stent. 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 Pets and animals: Yes Sexually active: Yes Do you think of yourself as: straight/heterosexual Current gender identity: male What is your relationship status?: living with partner How often do you get together with friends or relatives?: twice per week Panel score (0-1 are the most socially isolated patients): 1 What type of physical activity do you participate in: walking Duration: > 90 minutes/day Frequency: 3-4 times per week Desirae/Jain: Sabianism Special desirae needs: No Seatbelt use: always Drive intox or ride w/intox freight 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 driver: No Do you feel safe at home: Yes Do you feel safe in your relationship?: Yes Additional Social history: answering for pt Meds Allergies and Home Medications Allergies Allergy/AdvReac Type Severity Reaction Status Date / Time oxycodone AdvReac Intermediate He goes a Verified 07/27/23 06:15 taina oscar Home Medications Medication Instructions Recorded Confirmed Type acetaminophen 325 mg capsule 650 mg (2 x 325 mg) PO Q6H PRN 05/10/19 07/27/23 Rx (Tylenol) fever or pain #30 caps cholecalciferol (vitamin D3) 50 50 mcg PO DAILY 07/07/21 07/27/23 History mcg (2,000 unit) capsule (Vitamin D3) albuterol sulfate 90 mcg/actuation 1 - 2 puff inhalation Q6H PRN 09/12/21 07/26/23 Rx aerosol inhaler (ProAir HFA) shortness of breath or wheezing #6.7 grams budesonide-formoterol HFA 160 2 puff inhalation BID #10.2 grams 11/03/21 07/26/23 Rx mcg-4.5 mcg/actuation aerosol inhaler (Symbicort) atorvastatin 80 mg tablet See Rx Instructions .Route 10/12/22 07/27/23 Rx .COMPLEX #90 tabs bimatoprost 0.01 % eye drops 1 drp ophthalmic (eye) DAILY 10/28/22 07/27/23 History (Lumigan) bupropion HCl 150 mg tablet,12 hr 150 mg PO BID #180 tabs 12/24/22 07/27/23 Rx sustained-release metformin 500 mg tablet,extended 1,000 mg (2 x 500 mg) PO BID #360 01/04/23 07/27/23 Rx release 24 hr tabs nitroglycerin 0.4 mg sublingual 0.4 mg sublingual DIRECTED #30 01/04/23 07/26/23 Rx tablet tabs finasteride 5 mg tablet (Proscar) 5 mg PO HS #90 tabs 02/08/23 07/27/23 Rx amlodipine 10 mg tablet 10 mg PO DAILY 02/15/23 07/27/23 History apixaban 5 mg tablet (Eliquis) 5 mg PO BID 04/13/23 07/26/23 History sotalol 80 mg tablet 160 mg PO BID 07/22/23 07/27/23 History Exam Const General: cooperative and comfortable Nutritional Appearance: average body habitus Orientation: oriented to person, oriented to place and oriented to time Resp Effort & Inspection: normal respiratory effort and able to speak in complete sentences Auscultation: clear to auscultation bilaterally Cardio Rate: regular rate Rhythm: regular rhythm Other: He has a PSA is currently intact. GI Other: Postsurgical changes noted at umbilicus abdom soft w/ good BS hernias: Time Spent Time spent with Patient: <40 minutes Time was spent: preparing to see the patient(eg.review tests), obtaining and/or reviewing separately otained hiistory, ordering medications,tests, procedures, referring, communicating with other health foster care case manager, indepentently interpreting results, counseling the patient and care coordination
[2023-07-27] VITALS (18 sets, daily range): BP systolic 125–185; BP diastolic 70–91; PULSE 66–79; RESP 12–21; TEMP 35.2–36.6; O2SAT 91–97; BMI 32.1
[2023-07-27] MEDS: Gabapentin 300 MG CAP 600 MG PO (06:35)
[2023-07-27] MEDS: Acetaminophen 500 MG TAB 1000 MG PO ×3 (06:35→20:44)
[2023-07-27] MEDS: Lactated Ringers 1,000 ML 80 ML IV (06:36)
--- NOTE | 2023-07-27 06:53 | ANES.PREOP_ITS ---
General Info Date of Service Date Performed: 07/27/23 Height: 5 ft 9 in Weight: 98.9 kg Body Mass Index (BMI): 32.1 Surgical Procedure: Operation Date: 07/27/23 07:40 Proposed Procedure Side Surgeon p Herniorrhaphy Inguinal w/Mesh Bilateral Elly Cordon, Meds Allergies and Home Medications Allergies Allergy/AdvReac Type Severity Reaction Status Date / Time oxycodone AdvReac Intermediate He goes a Verified 07/27/23 06:15 little wacky Home Medication Medication Instructions Recorded acetaminophen 325 mg capsule 650 mg (2 x 325 mg) PO Q6H PRN 05/10/19 (Tylenol) fever or pain #30 caps cholecalciferol (vitamin D3) 50 50 mcg PO DAILY 07/07/21 mcg (2,000 unit) capsule (Vitamin D3) albuterol sulfate 90 mcg/actuation 1 - 2 puff inhalation Q6H PRN 09/12/21 aerosol inhaler (ProAir HFA) shortness of breath or wheezing #6.7 grams budesonide-formoterol HFA 160 2 puff inhalation BID #10.2 grams 11/03/21 mcg-4.5 mcg/actuation aerosol inhaler (Symbicort) atorvastatin 80 mg tablet See Rx Instructions .Route 10/12/22 .COMPLEX #90 tabs bimatoprost 0.01 % eye drops 1 drp ophthalmic (eye) DAILY 10/28/22 (Lumigan) bupropion HCl 150 mg tablet,12 hr 150 mg PO BID #180 tabs 12/24/22 sustained-release metformin 500 mg tablet,extended 1,000 mg (2 x 500 mg) PO BID #360 01/04/23 release 24 hr tabs nitroglycerin 0.4 mg sublingual 0.4 mg sublingual DIRECTED #30 01/04/23 tablet tabs finasteride 5 mg tablet (Proscar) 5 mg PO HS #90 tabs 02/08/23 amlodipine 10 mg tablet 10 mg PO DAILY 02/15/23 apixaban 5 mg tablet (Eliquis) 5 mg PO BID 04/13/23 sotalol 80 mg tablet 160 mg PO BID 07/22/23 Current Visit Medications: Current Medications Generic Name Dose Route Start Last Admin Trade Name Freq PRN Reason Stop Dose Admin Acetaminophen 1,000 mg 07/27/23 06:00 07/27/23 06:35 Acetaminophen 500 Mg Tab PO 07/27/23 23:59 1,000 mg PREOP MARQUIS Administration Gabapentin 600 mg 07/27/23 06:00 07/27/23 06:35 Gabapentin 300 Mg Cap PO 07/27/23 23:59 600 mg PREOP MARQUIS Administration Ringer's Solution 1,000 mls @ 80 mls/hr 07/27/23 06:00 07/27/23 06:36 IV 07/27/23 23:59 80 mls/hr INFUSION MARQUIS Administration Cefazolin Sodium/Dextrose 2 gm in 50 mls @ 100 mls/hr 07/27/23 06:00 Ancef Duplex IVPB 07/27/23 23:59 PREOP MARQUIS Ondansetron HCl 4 mg/ Sodium 52 mls @ 200 mls/hr 07/26/23 12:22 Chloride IVPB Q6H PRN PRN IV Miscellaneous Supplies 1 each 07/27/23 06:00 Iv Access IV 07/27/23 23:59 DIRECTED MARQUIS Morphine Sulfate 2 mg 07/26/23 12:22 Morphine 4 Mg/Ml Syr IVP Q1H PRN PRN Sodium Chloride 0 ml 07/27/23 06:00 Normal Saline Flush 10 Ml Syr IV 07/27/23 23:59 PRN PRN Sodium Chloride 0 ml 07/27/23 06:00 Normal Saline 10 Ml Vial IJ 07/27/23 23:59 DIRECTED PRN Sterile Water 0 ml 07/27/23 06:00 Water,Injection,Sterile 10 Ml Vial IJ 07/27/23 23:59 DIRECTED PRN Tramadol HCl 50 mg 07/26/23 12:22 Tramadol 50 Mg Tab PO Q6H PRN PRN Pain PFSH Active Problems Active Problems: Problem Status Onset Code PAF (paroxysmal atrial fibrillation) I48.0 Memory loss R41.3 Pacemaker Z95.0 Acute diarrhea R19.7 Hernia K46.9 Bilateral inguinal hernia without obstruction or gangrene K40.20 Rotator cuff arthropathy of left shoulder M12.812 Primary hypertension I10 BPH (benign prostatic hyperplasia) N40.0 Glaucoma H40.9 Depression F32.9 Diverticulosis K57.90 Sinus node dysfunction I49.5 Obesity E66.9 Tubular adenoma 10/04/08 D36.9 Diabetes type 2, controlled COPD (chronic obstructive pulmonary disease) J44.9 Coronary artery disease I25.10 Obstructive sleep apnea G47.33 Medical History Medical History Myocardial infarction X2 1997, 1998 Small bowel obstruction [facility] 05/2018; 02/2023 Normochromic normocytic anemia Bradycardia, sinus 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 hand weaver Rupture of right biceps tendon PT Cataracts, bilateral 09/05/19 [place] OS>>OD Epidermal inclusion cyst Lipoma of head Removed 04/2019 [place] Anxiety and depression Pancreatitis [facility] 05/2018 (mild) Hyperlipidemia Atorvastatin Surgical History Surgical History S/P colonoscopy (~05/02/19) 09/2015- [place]- Tubular adenomas x2 05/2019--Brain x13 tubular adenomas Total knee replacement status R 12/11/2013 L S/P shoulder surgery S/P coronary artery stent placement 04/30/19 per pt he does not have a stent. S/P hernia repair Laparoscopic ventral hernia repair x 2 Tobacco Smoking/Tobacco Use Status: Never Passive smoking exposure: No Alcohol Alcohol Intake: former Details: quit 20 years ago Substance Use Substance use: Never Substance use type: does not use Details: sober from alcohol since 1999. Vital Signs and Lab Results Vital Signs Most Recent Vital Signs in EMR: Most Recent Vital Signs Temp Pulse Resp BP Pulse Ox 36.6 C 75 16 185/90 H 96 07/27/23 06:19 07/27/23 06:19 07/27/23 06:19 07/27/23 06:19 07/27/23 06:19 Point of Care Results Point of Care Results: Finger Stick Blood Glucose 121 07/27/23 06:28 Lab Results Blood Type / Crossmatch: No Data to Display Complete Blood Count: No Data to Display Complete Metabolic Panel: No Data to Display Liver Function Panel: No Data to Display Coagulation Panel: No Data to Display Cardiac Panel: No Data to Display Arterial Blood Gas: No Data to Display Venous Blood Gas: No Data to Display Pancreas Panel: No Data to Display Thyroid Panel: No Data to Display Infectious Disease: No Data to Display Blood Cultures: No Data to Display Toxicology Panel: No Data to Display Imaging and Studies Imaging and Studies Study information below may be from another EMR and interpreted by another provider. Please see original notes in EMR for more complete details. EKG Summary: EKG PATIENT NAME: Corona Romo UNIT #: [id number] ORDERING PROVIDER: Elly Cordon DO PRIMARY CARE PROVIDER: JERONIMO CASTRO NP DATE/TIME OF SERVICE: 02/16/23 1004 : 1945 PERFORMING LOCATION: [place] APPROVED REPORT Exam: Resting ECG Reason for Exam: bradycardia and pauses Patient Location: I HR:66 bpm ECG Measurements Heart Rate 66 AXIS [place] 161 P 83 QRSd 161 QRS -52 QT 450 T31 QTc 472 Conclusion Sinus rhythm...normal P axis, V-rate 50- 99 RBBB and LAFB...QRSd >120mS, axis(-40,240) <Electronically signed by MAYA BARKSDALE MD in OV> E-Sign Date: 02/16/23 E-Sign Time: 1035 Anesthesia Assessment and Plan Anesthesia History Personal History: No History of Anesthesia Complications Family History: No Family History of Anesthesia Complications Exercise Tolerance Exercise Tolerance: Metabolic Equivalents<4 Pertinent Negatives Pertinent Negatives: No Symptoms of GERD Cardiac & Pulmonary Exam Cardiac Exam: Normal S1/S2 Heart Sounds Pulmonary Exam: Clear Bilateral Breath Sounds Implantable Cardiac Device Does patient have a Pacemaker or an ICD?: Yes Device Radiographer Cardiac Catheterization:: Mangia Accolade Reason for Placement:: [facility] Date of Last Device Interrogation:: 07/20/23 Airway Exam Known Difficult Airway: No Mallampati Class: 3 Mouth Opening: Narrow (< 3cm) Thyromental Distance: Greater than 3 cm Neck Range of Motion: Full ROM Neck Circumference: Normal Teeth Condition: Normal Dentition (Some missing, patient declined to specify) ASA Classification ASA Score: ASA 3 Emergency Case?: No NPO Status NPO Status: NPO Clears >2 hours, Solids >8 hours Anesthesia Plan Resuscitation Status: Full Code Anesthesia Technique: General Anesthesia Airway Planned: Endotracheal Tube Pain Management: Surgeon and patient request nerve block Monitors Used: Standard Monitors and SedLine Preoperative Comments:: Pt has a PPM, hx of falls, forgetfulness, seems like a worsening Neurocognitive status over last 6mo per cardiology note. Discussed benefits/risks of anesthesia and neurocognitive status with pt and spouse. [facility] cardiology notes reviewed and scanned into chart.
[2023-07-27] MEDS: ceFAZolin 2 GM/50 ML BAG IVPB (08:19)
--- NOTE | 2023-07-27 08:52 | W.ANESNERVE ---
Nerve Block Single Injection Procedure Date and Time Date Performed: 07/27/23 Procedure Start: 08:00 Location Where Procedure Performed Procedure Location: Operating Room Procedure Stop: 08:18 Reason Performed: Postoperative Analgesia Requesting Provider: Elly Cordon Timeout Performed Timeout Performed: Yes Monitoring Used ECG, Blood Pressure, SpO2, ETCO2 and See EMR for corresponding vital signs Sterility Sterility: Hand Hygiene, Surgical Cap, Surgical Mask, Sterile Gloves and Chlorhexidine Sedation Given During Procedure Sedation Given (Indicate Dose Given): No Sedation given Patient Mental Status Patient Mental Status: Performed under general anesthesia Nerve Block 1st Nerve Block: Laterality: Bilateral Block Type: TAP Bilateral Ultrasound Image Saved?: Yes Needle / Catheter Used: 100mm SonoPlex II Local Anesthetic Bolus (Indicate Dose Given): Injected in 3-5ml increments after negative blood aspiration, Half of Total block solution given into each side and Bupivacaine 0.25% Dose:: 40 ml Additives (Indicate Dose Given): None Ultrasound: Sterile probe cover and gel used Nerve Stimulator: Not Used Paresthesia: None Procedure Tolerated: No Complications Procedure Outcome: Successful Performed By: Nevaeh Gold Supervised By: Satnam Marx
[2023-07-27] MEDS: Bupivacaine LIPOSOME/PF 133 MG/10 ML VIAL IJ (09:44)
[2023-07-27] MEDS: Bupivacaine 0.25% Pres-Free 30 ML VIAL (09:44)
--- NOTE | 2023-07-27 10:15 | BRIEFOP_ITS ---
Date of service: 07/27/23 Time of Service: 10:17 Brief Operative Note Procedure/Pre & Post Op Diagnoses/Newspaper Press Operator Apprentice: Operation Date: 07/27/23 07:40 Actual Procedures p Herniorrhaphy Inguinal w/Mesh(Bilateral) - Elly Cordon DO Pre-Op Diagnosis: BILATERAL DIRECT & INDIRECT INGUINAL HERNIAS Post-Op Diagnosis: BILATERAL DIRECT & INDIRECT INGUINAL HERNIAS Case Staff Physician Newspaper Press Operator Apprentice: Iris Boles Anesthesia Anesthesia Type: Local By Surgeon, General LMA/ETT and Primary Nerve Block 10 Specimen/Culture Specimen(s): None Culture(s): None Complications Complications: None
--- NOTE | 2023-07-27 10:15 | W.PM.OP ---
Date of service: 07/27/23 Time of Service: 10:15 Operative Note Operative Note DATE OF PROCEDURE: 07/27/23 PRE-OP DIAGNOSIS: Bilateral inguinal hernia POST-OP DIAGNOSIS: other (Bilateral direct and indirect inguinal hernias) PROCEDURE: Open bilateral indirect and direct inguinal hernia repair with mesh SURGEON: Elly Garrison VP TALENT MANAGEMENT: Iris Boles ANESTHESIA TYPE: Local By Surgeon, General LMA/ETT and Primary Nerve Block Refer to Anesthesia Record ESTIMATED BLOOD LOSS: 5 PATHOLOGY: other COMPLICATIONS: None Patient was transported to: same day Patient's condition: stable Procedure Description: INDICATIONS: The pt is here today for surgery regarding symptomatic bilateral inguinal hernia that has failed outpatient conservative medical management and he is here today for repair. Informed consent was obtained, explaining risks and benefits of the procedure including but not limited to bleeding, infection, pneumonia, blood clots, chronic pain, chronic numbness, damage to testicle resulting in removal, recurrence of hernia, reaction to Mesh necessitating removal, and other unforetold complications, and complications of anesthesia-which were addressed by the THREAD MILLING MACHINE SET UP OPERATOR. The patient is marked in preOp prior to the procedure DESCRIPTION OF PROCEDURE:? The pt is then brought to the operative room suite. Anesthesia was administered per the Department of Anesthesia. ?A nerve block was performed by anesthesia under US guidance. The patient was prepped and draped in the usual sterile fashion using ChloraPrep scrub solution. Pause for the cause was done. He did receive preop IV antibiotics. The right side was attended to first. 10 cc of Exparel and 10 mL of .25% Marcaine w/ epinephrine was used for local anesthetization on either side.. A #12 blade was used to make an incision over the external ring. Electrocautery used to provide hemostasis and dissect down to the fascia. The fascia was pretty much obliterated and there was nothing to open. The cord is elevated. The nerve was not identified. There large is a cord lipomas. This is tied off and excised. Electro-cautery is used to provide hemostasis. A Burns drain was placed around the cord to assist in mobilization. The cord was explored. ?There was is large hernia sac on the cord.The hernia sac is dissected off the cord using a combination of blunt dissection and electrocautery.? Electrocautery is used to provide hemostasis.?? There are no contents within the hernia sac.? High ligation of the sac is performed. The hernia sac remnant is than inverted and returned to the abdominal cavity.? A large size plug is than inserted into the defect through the internal ring, and over sewn to tighten up the ring with 2-0 vicryl.?There is a large direct hernia sac is pushing through the floor. The transversalis in this area is pretty much obliterated. The sac is elevated and scored and inverted. A extra-large size mesh plug was then placed into the defect and sewn into transversalis, using 2-0 vicryl Please see RN notes from Lot number of the [employer] mesh patch/plug.? The cord structures are still able to freely move through the ring itself.? The patch was then placed onto the floor, and using 2-0 Vicryl, sewn into the pubic tubercle and the shelving portions of the inguinal ligament, in the standard Lichenstein fashion.? ?The tails of the mesh are brought around the cord, sewn together w/ 2-0 Vicryl, and tucked under the external oblique.? The wound was copiously irrigated. There was no bleeding noted. The drain was removed. All structures are returned to normal anatomical position. The nerve was not visualized. The external oblique is re-approximated using 2-0 vicryl in a running fashion. ?Deep tissue was approximated with 3-0 Vicryl in a running fashion, and skin was approximated with 4-0 Monocryl in a running subcuticular fashion. Skin glue and sterile dressings are applied. The same procedure was then repeated on the left side. A large plug is placed into the indirect hernia defect and a medium plug into the direct hernia defect. There is also a medium cart cord lipoma that is tied off and excised. There is a large indirect sac.. High ligation was performed and the sac excised. The remainder was returned to the abdominal cavity. The patient tolerated the procedure without complications to recovery in stable condition. Family was apprised of patient's progress. Patient will be an admitted overnight for observation and discharged home in a.m. with home RN and home PT ELLY GARRISON, DO
[2023-07-27] MEDS: Lactated Ringers 1,000 ML 75 ML IV (11:40)
[2023-07-27] MEDS: Enoxaparin 40 MG/0.4 ML SYR SC (12:41)
--- NOTE | 2023-07-27 14:07 | W.ANESPOSTOP ---
Postoperative Evaluation Date, Time and Location Date Performed: 07/27/23 Time Performed: 14:07 Patient Location: Med/Surg Vital Signs Most Recent Imported Vital Signs: Most Recent Vital Signs Temp Pulse Resp BP Pulse Ox 35.7 C L 70 18 151/84 H 96 07/27/23 13:20 07/27/23 13:20 07/27/23 13:20 07/27/23 13:20 07/27/23 13:20 Pain Score Most Recent Pain Score: Most Recent Pain Score Pain Level 0 07/27/23 13:20 Assessment Mental Status: Awake (Alert & Oriented to Patient Baseline) (pt resting appropriately with spouse at bedside ) Airway and Respiratory Function: Patent airway with normal (patient baseline) respiratory exam Cardiovascular Function: Hemodynamically Stable Hydration Status: Adequately Hydrated Nausea & Vomiting: No Nausea or Vomiting Pain: Pain is tolerable per patient Peripheral Nerve Block: Regional nerve block not resolved at time of post operative discharge
--- NOTE | 2023-07-27 14:19 | W.PM.PROGNOT ---
Date of Service Date of service: 07/27/23 Time of Service: 14:19 Assessment and Plan Assessment and plan (1) PAF (paroxysmal atrial fibrillation): Status: Acute (2) Memory loss: Status: Acute (3) Pacemaker: Status: Acute (4) Hernia: Status: Chronic (5) Bilateral inguinal hernia without obstruction or gangrene: Status: Acute Assessment and plan: The patient is doing well post-op. pt is sleeping. was able to tolerate clears. Their pain is well controlled. They are having no nausea or vomiting. The pt is not having any chest pain or SOB, productive cough; no calf pain or swelling. The pt is making good urine. The pt pain is adequately controlled. The case was discussed with nursing and patient?s progress reviewed. All of the pt's home medications were addressed and adjusted accordingly for their oral intact status. HEENT: no jaundice. no eye pain/drainage/redness/swelling. Cardio- NSR no chest pain, BP stable. Pulm: no sob or productive cough. no hemoptysis Incision- clean/dry. Dressing intact no excessive bleeding or drainage I discussed with the patient and/or there family about the findings in surgery and the pt's progress. We reviewed expectations for progress in the hospital; what the pt could expect for recovery time and length of stay. We discussed the importance of walking and pulmonary toilet to avoid blood clots and pneumonia. Continue current plans for pulmonary toilet, GI and DVT prophylaxis. We shall continue the current plan for pain management as it is at an appropriate level, and working well for the pt. Appropriate measures will be taken for constipation prevention, and this was also reviewed with the pt. The wound care plan was reviewed with nursing as well. will have PT eval in am CM to arrange home RN/PT. H/H done d/c in am moniter for [facility] d/c meza 7am see orders Qualifiers: Recurrence: non-recurrent Qualified Code(s): K40.20 - Bilateral inguinal hernia, without obstruction or gangrene, not specified as recurrent (6) Primary hypertension: Status: Chronic (7) BPH (benign prostatic hyperplasia): Status: Chronic Qualifiers: Lower urinary tract symptom presence: symptoms absent Qualified Code(s): N40.0 - Benign prostatic hyperplasia without lower urinary tract symptoms (8) Glaucoma: Status: Chronic (9) Sinus node dysfunction: Status: Chronic (10) Diabetes type 2, controlled: Status: Chronic Qualifiers: Diabetes mellitus complication status: without complication Diabetes mellitus [facility] insulin use: without [facility] use Qualified Code(s): E11.9 - Type 2 diabetes mellitus without complications (11) COPD (chronic obstructive pulmonary disease): Status: Acute Qualifiers: COPD type: emphysema Emphysema type: unspecified Qualified Code(s): J43.9 - Emphysema, unspecified (12) Coronary artery disease: Status: Chronic Qualifiers: Associated angina: with stable angina Coronary Disease-Associated Artery/Lesion type: unspecified vessel or lesion type [place] vs. transplanted heart: [place] heart Qualified Code(s): I25.118 - Atherosclerotic heart disease of [place] coronary artery with other forms of angina pectoris (13) Obstructive sleep apnea: Status: Chronic (14) Hyperlipidemia: Qualifiers: Hyperlipidemia type: unspecified Qualified Code(s): E78.5 - Hyperlipidemia, unspecified Objective Last Vital Signs Temp 35.7 C L 07/27/23 13:20 Pulse 70 07/27/23 13:20 Resp 18 07/27/23 13:20 BP 151/84 H 07/27/23 13:20 Pulse Ox 96 07/27/23 13:20 Time Spent with Patient Time Spent with Patient: <25 minutes Time was spent: preparing to see the patient(eg.review tests), obtaining and/or reviewing separately otained hiistory, ordering medications,tests, procedures, referring, communicating with other health memory care director, indepentently interpreting results, counseling the patient and care coordination
--- NOTE | 2023-07-27 17:08 | PT.INIE ---
PT Notes Visit Reasons: B/L Inguinal Hernia Repair Physical Therapy Inpatient Initial Evaluation Date: 07/27/2023 Referring Doctor: Elly Cordon MD PT Orders: PT CONSULT: S/P joseph ing hernia repair Precautions: Fall. Standard. Activity as tolerated. Patient Profile/Admitting Diagnosis: Corona is a 78-year-old male with bilateral inguinal hernia and is status post open bilateral indirect/direct inguinal hernia repair with mesh on postoperative day 0. Patient is also being managed for PAF, memory loss, melena BPH, primary hypertension, glaucoma, diverticulosis, obesity, CAD, RJ, and COPD. PMHX: All Active Problems PAF (paroxysmal atrial fibrillation) (Acute) [facility] Cardio-07/20/23 Memory loss (Acute) [facility] Cardio- 07/20/23 Pacemaker (Acute) [facility] 03/23/2023 Acute diarrhea (Acute) Hernia (Chronic) Bilateral inguinal hernia without obstruction or gangrene (Acute) Rotator cuff arthropathy of left shoulder (Acute) subacromial corticosteroid injection 10/28/22 Primary hypertension (Chronic) BPH (benign prostatic hyperplasia) (Chronic) RX Finasteride Glaucoma (Chronic) 09/05/19 [place] (Chronic) Long-term RX Wellbutrin Diverticulosis (Chronic) 2018 colonoscopy Sinus node dysfunction (Chronic) [facility] Cardiolgy; stay off of BB Obesity (Chronic) Tubular adenoma (Chronic 10/04/08) Colonoscopy 10/04/15 & repeat 2019 (13!) Diabetes type 2, controlled (Chronic) Dx'ed in 1970s COPD (chronic obstructive pulmonary disease) (Acute) Coronary artery disease (Chronic) [facility] Product Transfer Pumper [place] 1998 with angina; cath in 1998 1-vessel dis Obstructive sleep apnea (Chronic) h/o CPAP; clausterphobic with masks so stopped using; then 100# weight loss; referred in 11/2019 but he declined Medical History Myocardial infarction X2 1997, 1998 Small bowel obstruction [facility] 05/2018; 02/2023 Normochromic normocytic anemia Bradycardia, sinus 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 contracts officer Rupture of right biceps tendon PTCataracts, bilateral 09/05/19 [place] OS>>OD Epidermal inclusion cyst Lipoma of head Removed 04/2019 [place] Anxiety and depression Pancreatitis [facility] 05/2018 (mild) Hyperlipidemia Atorvastatin Surgical History S/P colonoscopy (~05/02/19) 09/2015- [place]- Tubular adenomas x2 05/2019--[place] x13 tubular adenomas Total knee replacement status R 12/11/2013 L S/P shoulder surgery S/P coronary artery stent placement 04/30/19 per pt he does not have a stent. S/P hernia repair Laparoscopic ventral hernia repair x 2 Social History/Home Situation: Lives with in a private home. Per , patient is was independent with all mobility ADL performance without a walker or cane Equipment Owned/DME: [facility], Subjective: Lethargic postoperatively and could not participate in PT after first two attempts today. Was awake and able to follow instructions later in the afternoon and was agreeable to sitting up on the chair for supper. Objective: General Observation: Resting in bed now more awake than he was earlier today. Blanton catheter in place. Incisions to be inguinal areas intact. Telemetry monitoring in place Mental Status: Alert and oriented as to person and purpose. Able to follow single step commands. Pain: None verbalized Vital Signs: Closely monitored by nursing staff ROM: Right Lower Extremity: Hip flexion WFL. Hip abduction WFL. Knee flexion WFL. Ankle dorsiflexion WFL. Ankle plantarflexion WFL. Left Lower Extremity: Hip flexion WFL. Hip abduction WFL. Knee flexion WFL. Ankle dorsiflexion WFL. Ankle plantarflexion WFL. Strength: Right Lower Extremity: Hip flexors 3+/5. Hip abductors 3+/5. Knee flexors 4-/5. Knee extensors 3+/5. Ankle dorsiflexors 4-/5. Ankle plantarflexors 4-/5. Left Lower Extremity: Hip flexors 3+/5. Hip abductors 3+/5. Knee flexors 4-/5. Knee extensors 3+/5. Ankle dorsiflexors 4-/5. Ankle plantarflexors 4-/5. Bed Mobility/Transfers: Minimal cueing provided for use of B hands as needed for support, movement sequence, Ad management, and and posture to reduce fall risk and minimize pain report Supine to sit contact-guard assist Sit to supine contact-guard assist Sit to stand contact-guard assist Stand to sit contact-guard assist Bed to reclining chair contact-guard assist Gait: Facilitated safe performance of short distance in room ambulation of 8 steps using front wheeled walker with minimal assist and moderate verbal cueing for movement sequence, AD management, and directional change. Patient reporting being unsteady but no loss of balance. Balance: Static Sitting: Good Dynamic Sitting: Fair Static Standing: Fair Dynamic Standing: fair Special Tests: Mobility Limitations Standardized Measure [facility] AM-PAC 6 clicks Basic Mobility Inpatient Short Form: Raw Score: 18 CMS Score: 47% deficit Informed Consent/Education: Patient was instructed in purpose of PT consult and plan of care. Agreeable to proceed with established PT POC to achieve personal goals. Assessment: Patient requires assistance of 1 and the use of a front wheeled walker for mobility ADL performance to reduce fall risk. Patient presents with clinical signs and symptoms consistent with current/admitting diagnoses that have resulted to mobility limitations, gait instability, generalized weakness, and overall ADL decline as demonstrated by the following impairment level findings: 1. Decreased strength to B LE major muscle groups 2. Impaired sitting/standing balance 3. Impaired activity tolerance Impairments are contributing to the following functional limitations: 1. Decline in bed mobility skills 2. Decline in transfer skills 3. Difficulty with ambulation without assistive device and physical assistance 4. Increased completion time for mobility ADL performance 5. Increased risk for falls 6. Difficulty with managing steps alone safely Patient is assessed as a [id number] moderate complexity based on the following: History: 77-year-old male with past medical history as indicated above Examination: Demonstrable impairment in strength, balance, and mobility level with underlying impairments and functional limitations as exhibited above as well as deficit score of 47% utilizing the [facility] Mobility Inpatient Short Form Presentation: Evolving Decision Makin moderate complexity Goals: Goals X1 week 1. Supine-Sit independent 2. Sit-Supine independent 3. Sit-Stand independent 4. Stand-Sit independent with FWW 5. Bed-Chair independent with FWW 6. Chair-Bed independent with FWW 7. Independent gait on level surface with use of FWW for at least 150 feet without report of pain nor dyspnea 8. Good static and dynamic standing balance/tolerance Plan of Care/Treatment Plan: 1-2x/day, 7 days/week x 1 week. Plan of care has been reviewed with the REIMBURSEMENT REP providing the service under Physical Therapy direction. Initiate Physical Therapy intervention for pain management as needed, strengthening, bed mobility, transfers, gait, stairs, balance training, and use of assistive device. DISCHARGE RECOMMENDATIONS: [] Home with no services [] [X] Home with services patient will benefit from home health PT services in order to progress mobility level using least restrictive assistive ambulatory device, assess home safety, identify additional equipment needs, and establish a functional maintenance program that will increase ability of patient to remain at home. [] Home with outpatient PT [] [] SNF for continued rehabilitation [] [] Line Inspector Care [] [] SNF versus LTC based on ability to participate and progress [] TREATMENT CODE/TIME: 9716 2 x 20 minutes for 1 unit beginning at 17:08 PM. Thank you for the opportunity to participate in the care of this patient. Fouzia Silver PT, DPT, CLT [facility] [place], [place]
--- NOTE | 2023-07-27 19:01 | W.PM.DS.N ---
Date of service: 07/28/23 Time of Service: 08:00 DS: Diagnosis Discharge Diagnosis (1) PAF (paroxysmal atrial fibrillation): Status: Acute (2) Memory loss: Status: Acute (3) Pacemaker: Status: Acute (4) Hernia: Status: Chronic (5) Bilateral inguinal hernia without obstruction or gangrene: Status: Acute (6) Primary hypertension: Status: Chronic (7) BPH (benign prostatic hyperplasia): Status: Chronic (8) Glaucoma: Status: Chronic (9) Sinus node dysfunction: Status: Chronic (10) Diabetes type 2, controlled: Status: Chronic (11) COPD (chronic obstructive pulmonary disease): Status: Acute (12) Coronary artery disease: Status: Chronic (13) Obstructive sleep apnea: Status: Chronic (14) Hyperlipidemia: Discharge Plan Disposition Patient Disposition: Home Condition: Improving Discharge Details Reason For Visit: B/L Inguinal Hernia Repair Admit Date/Time: 07/27/23 06:04 Admit Provider: Elly Cordon Attending Provider: Elly Cordon Primary Care Provider: Jessie Bose Hospital Course Hospital Course: see addendum Home Meds and New Rx's Prescriptions: New tramadol 50 mg tablet 50 mg PO Q6H PRNQty: 14 0RF Continued budesonide-formoterol [Symbicort] 160-4.5 mcg/actuation HFA aerosol inhaler 2 puff Inhalation BID Qty: 10.2 11RF nitroglycerin 0.4 mg tablet, sublingual 0.4 mg SUBLINGUAL DIRECTED Qty: 30 0RF metformin 500 mg tablet extended release 24 hr 1,000 mg PO BID Qty: 360 3RF Rx Instructions: ER formulation to prevent loose stool from IR albuterol sulfate [ProAir HFA] 90 mcg/actuation HFA aerosol inhaler 1 - 2 puff Inhalation Q6H PRN Qty: 6.7 2RF Rx Instructions: SOB/wheeze atorvastatin 80 mg tablet See Rx Instructions .ROUTE .COMPLEX Qty: 90 3RF Dose Instruction: TAKE ONE TABLET BY MOUTH AT BEDTIME Rx Instructions: TAKE ONE TABLET BY MOUTH AT BEDTIME bupropion HCl 150 mg tablet sustained-release 12 hr 150 mg PO BID Qty: 180 3RF finasteride [Proscar] 5 mg tablet 5 mg PO HS Qty: 90 3RF sotalol 80 mg tablet 160 mg PO BID Patient Comments: [facility] [place] Cardio Note 07/20/23 acetaminophen [Tylenol] 325 mg capsule 650 mg PO Q6H PRN (Reason: fever or pain) Qty: 30 0RF cholecalciferol (vitamin D3) [Vitamin D3] 50 mcg (2,000 unit) Capsule 50 mcg PO DAILY Eliquis 5 mg tablet 5 mg PO BID Patient Comments: TAKE ONE TABLET BY MOUTH TWICE A DAY latanoprost 0.005 % drops 1 drp ophthalmic (eye) QPM Patient Comments: INSTILL ONE DROP IN EACH EYE EVERY EVENING amlodipine 10 mg tablet 10 mg PO DAILY Rx Instructions: TAKE ONE TABLET BY MOUTH EVERY DAY Discharge Instructions Additional Instructions: Dr. Cordon HERNIA REPAIR ? POSTOPERATIVE INSTRUCTIONS Patients who have this type of surgery can usually be expected to return to work within two weeks and have minimal amounts of discomfort. ? ACTIVITY: Avoid lifting or straining. On the day following surgery, you can be up and about as desired. ? LIFTING: Restrict your lifting to no more than five (5) pounds for two weeks after surgery. ??We will decide when you are done with restrictions and when you can return to work, at your follow-up appointment.? No sexual activity for two weeks.? ? DIET: There are no dietary restrictions following surgery. However, you may want to start with small amounts of liquids to avoid nausea the day of surgery. ? INCISION CARE: You will notice purple skin glue closing the incision.? Do not peel this off- it will wear off on its own.? After 24 hours you may shower. The dressing may be replaced for comfort, but is not necessary. ?An ice bag may be applied to the incision for 72 hours following surgery. ? SIGNS OF INFECTION: It is not unusual to have some black and blue discoloration of the skin around the incision, but also scrotum and penis.? ?It will slowly disappear. If you have any increased redness, drainage, fever (above 100 degrees), please contact your doctor for an examination. ? DISCOMFORT: You may expect to have some mild discomfort at the incision sight. If severe pain develops you should contact your doctor for further instructions. ? URINATION: Patients who have surgery occasionally have problems urinating. If you experience problems and are not able to urinate within 6 hours following your surgery, please call your doctor immediately or go to your nearest Emergency Room for evaluation. ? DRIVING: NO driving for three (3) days after surgery, or if you are still taking narcotic pain medication.? ? MEDICATIONS: Alternate Tylenol 1000mg by mouth every 8 hours and Ibuprofen 600mg every 6 hours. ?Make sure you take ibuprofen with food and not on an empty stomach. ?Take the Tylenol and ibuprofen continuously for the first 72hrs- not just when you have pain.? Use the tramadol for breakthrough pain/pain >7.? Use ICE!?? Twenty minutes on, and then off, continuously for the first 72hours. If you are taking narcotic pain medication, follow the instructions on the label and do not drive. Pain medications can make you very constipated. Make sure you are moving your bowels daily. If not, take Miralax or Milk of Magnesia.?? Anesthesia makes you very constipated.? Take a dose of milk of magnesia the morning after surgery. Resume Eliquis and Vit D on 08/02/23 ? REPORT: Unusual swelling, severe pain, unresolved nausea, signs of infection, or difficulty in urination to your surgeon. Follow up in clinic with Dr. Cordon in 2 weeks.? [phone] Activity:: see above Equipment/Supplies:: No Equipment Needed Diet:: Carb Counting Discharge Orders Discharge Orders: Discharge Order (Routine); Ordered 07/26/23 Ordered By: Elly Cordon DS: Summary Time Spent with Patient providing and/or coordinating discharge services: Less than 30 minutes Status at Discharge Functional status at discharge: uses cane/walker Overall status at discharge: patient is progressing back to baseline Mental Status: mental status grossly normal Speech and Movement: speech and movement normal Mood: congruent mood Affect: normal affect Quality:SDOH Health Related Social Needs: No Data to Display Exam Psych Mental Status: mental status grossly normal Speech and Movement: speech and movement normal Mood: congruent mood Affect: normal affect DS: Data Vitals/I&O Vitals and I&O: Vital Signs Temperature 36.3 C L 07/27/23 14:57 Temperature Source Tympanic 07/27/23 14:57 Pulse 72 07/27/23 14:57 Pulse Rhythm Irregular 07/27/23 06:19 Respiratory Rate 17 07/27/23 14:57 Respiratory Effort Normal, Non-Labored 07/27/23 17:30 Respiratory Depth Normal 07/27/23 17:30 Respiratory Pattern Normal 07/27/23 17:30 Blood Pressure 125/73 07/27/23 14:57 Pulse Oximetry 96 07/27/23 14:57 Respiratory End-tidal CO2 31 07/27/23 11:10 Oxygen Delivery Method Room Air 07/27/23 14:57 Oxygen Flow Rate 0 07/27/23 14:57 Pain Level 5 07/27/23 14:57 Intake & Output 07/26/23 07/27/23 07/27/23 23:59 11:59 23:59 Intake Total 1356.667 / 1584.167 227.5 / 1584.167 Output Total / 2074 Balance 1181.667 / -490.833 -1672.5 / -490.833 Weight 92.986 kg 89.699 kg Intake: IV 876.667 / 1104.167 227.5 / 1104.167 Oral 480 / 480 Output: Urine 2074 Other: Urine Color Yellow Pale Urine Appearance Clear Clear Emesis Description None PFSH All Active Problems PAF (paroxysmal atrial fibrillation) (Acute) [facility] [place] Cardio-07/20/23 Memory loss (Acute) [facility] [place] Cardio- 07/20/23 Pacemaker (Acute) [facility] [place] 03/23/2023 Acute diarrhea (Acute) Hernia (Chronic) Bilateral inguinal hernia without obstruction or gangrene (Acute) Rotator cuff arthropathy of left shoulder (Acute) subacromial corticosteroid injection 10/28/22 Primary hypertension (Chronic) BPH (benign prostatic hyperplasia) (Chronic) RX Finasteride Glaucoma (Chronic) 09/05/19 [place] Depression (Chronic) Long-term RX Wellbutrin Diverticulosis (Chronic) 2019 colonoscopy Sinus node dysfunction (Chronic) [facility] [place] Cardiolgy; stay off of BB Obesity (Chronic) Tubular adenoma (Chronic 10/04/08) Colonoscopy 10/04/15 & repeat 2019 (13!) Diabetes type 2, controlled (Chronic) Dx'ed in 1970s COPD (chronic obstructive pulmonary disease) (Acute) Coronary artery disease (Chronic) [facility] [place] 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; cath in 1998 1-vessel dis Obstructive sleep apnea (Chronic) h/o CPAP; clausterphobic with masks so stopped using; then 100# weight loss; referred in 11/2019 but he declined Medical History Myocardial infarction X2 1997, 1999 Small bowel obstruction [facility] 05/2018; 02/2023 Normochromic normocytic anemia Bradycardia, sinus 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 cardiac sonographer Rupture of right biceps tendon PT Cataracts, bilateral 09/05/19 [place] OS>>OD Epidermal inclusion cyst Lipoma of head Removed 04/2019 [place] Anxiety and depression Pancreatitis [facility] 05/2018 (mild) Hyperlipidemia Atorvastatin Surgical History S/P colonoscopy (~05/02/19) 09/2015- [place]- Tubular adenomas x2 05/2019--Brain x13 tubular adenomas Total knee replacement status R 12/11/2013 L S/P shoulder surgery S/P coronary artery stent placement 04/30/19 per pt he does not have a stent. 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 Pets and animals: Yes Sexually active: Yes Do you think of yourself as: straight/heterosexual Current gender identity: male What is your relationship status?: living with partner How often do you get together with friends or relatives?: twice per week Panel score (0-1 are the most socially isolated patients): 1 What type of physical activity do you participate in: walking Duration: > 90 minutes/day Frequency: 3-4 times per week Desirae/Ad[employer]: [employer] Special desirae needs: No Seatbelt use: always Drive intox or ride w/intox driver wheelchair: No Do you feel safe at home: Yes Do you feel safe in your relationship?: Yes Additional Social history: answering for pt Time Spent with Patient Time Spent with Patient: <45 minutes Time was spent: preparing to see the patient(eg.review tests), obtaining and/or reviewing separately otained hiistory, ordering medications,tests, procedures, referring, communicating with other health home care companion, indepentently interpreting results, counseling the patient and care coordination
--- NOTE | 2023-07-27 19:12 | PDOC.HHF2F_ITS ---
Home Health Referral Home Health Orders Clinical synopsis of why skilled professionals are needed: s/p bilateral inguinal hernia repair- wound care/nutrition/medication evaluation Medical diagnosis necessitation home health referral: pacer/PAF (blood thinners) /htn/dm/glaucoma/copd/shukri/cad/memory issues/deconditioning Registered Nurse: Check all that apply Instruct on new or changed medication(s)/assess compliance: Ordered Assess for exacerbation of medical condition, instruct patient/caregivers on signs and symptoms to report for early detection: Ordered Assess wound for signs and symptoms of infection, instruct on wound care and/or provide skilled wound care consisting of: s/p bilateral inguinal hernia repair Physical Therapist: Check all that apply Increase strength & endurance for safe mobility at home: Ordered To design/establish home maintenance program: Ordered Fall reduction therapy program for patient with history of frequent falls: Ordered Home safety evaluation and teaching/gait training including stair management (if applicable): Ordered Home Bound Status Requires the aid of supportive device (check all that apply): Walker Use of Special Transportation (Describe transportation and medical necessity): cannot drive due to recent surgery Assistance of another person (Describe assistance and medical necessity): physical fall risk/pain/cognitive decline/deconditioning/recent surgery Patient has a condition such that leaving home is medically contraindicated (Describe): physical fall risk/pain/cognitive decline/deconditioning/recent surgery Describe why leaving home would require a considerable and taxing effort: Side effects from pain medication (sedation/drowsiness), Requires frequent rest periods, Confusion and Safety Concerns: describe (fall risk) Encounter Date and Reason: I certify that a FTF encounter for this patient was performed on July 27, 2023 and that such encounter was related to the primary reason the patient requires home health services. The encounter was conducted in the following manner: * By me as the certifying physician, ASSIGNMENT CLERK, PA or * By an inpatient physician, ASSIGNMENT CLERK or PA during an inpatient stay who communicated findings to me, Certification And Authentication I certify that I composed the above information based on my clinical judgment relating to this patient's medical condition and, if applicable, clinical findings communicated to me by the NPP or inpatient physician who performed the FTF encounter. Name of Provider that will be monitoring home health services: Elly Cordon
[2023-07-27] MEDS: Budesonide/Formoterol 160/4.5 6 GM 60 PUFF INH IH (20:31)
[2023-07-27] MEDS: Normal Saline Flush 10 ML SYR IVP (20:43)
[2023-07-27] MEDS: buPROPion-CR 150 MG TABCR PO (20:44)
[2023-07-27] MEDS: Atorvastatin 40 MG TAB 80 MG PO (20:44)
[2023-07-27] MEDS: metFORMIN C.R. 500 MG TABCR 1000 MG PO (20:44)
[2023-07-27] MEDS: Finasteride 5 MG TAB PO (21:20)
[2023-07-28 03:25] VITALS: BP 143/90; PULSE 76; RESP 16; TEMP 36.4; O2SAT 97
[2023-07-28] MEDS: Acetaminophen 500 MG TAB 1000 MG PO ×3 (03:27→20:50)
[2023-07-28] MEDS: Normal Saline Flush 10 ML SYR IVP ×3 (03:31→20:50)
[2023-07-28 07:20] VITALS: BP 135/86; PULSE 69; TEMP 36.7; O2SAT 95
--- NOTE | 2023-07-28 07:25 | PGE_ITS ---
Date of Service Date of service: 07/28/23 Time of Service: 07:25 Assessment and Plan Assessment and plan (1) PAF (paroxysmal atrial fibrillation): Status: Acute (2) Memory loss: Status: Acute (3) Pacemaker: Status: Acute (4) Hernia: Status: Resolved (5) Bilateral inguinal hernia without obstruction or gangrene: Status: Resolved Assessment and plan: POD #1 s/p bilateral inguinal hernia repairs with mesh. D/C [place] to ensure independent urination prior to d/c home Pain is well managed. Encouraged activity OOB, ambulation and sitting in the chair for meals Regular diet D/C home later today with services once we confirm he can urinate independently and is tolerating a regular diet Qualifiers: Recurrence: non-recurrent Qualified Code(s): K40.20 - Bilateral inguinal hernia, without obstruction or gangrene, not specified as recurrent (6) Primary hypertension: Status: Chronic (7) BPH (benign prostatic hyperplasia): Status: Chronic Qualifiers: Lower urinary tract symptom presence: symptoms absent Qualified Code(s): N40.0 - Benign prostatic hyperplasia without lower urinary tract symptoms (8) Glaucoma: Status: Chronic (9) Sinus node dysfunction: Status: Chronic (10) Diabetes type 2, controlled: Status: Chronic Qualifiers: 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 transplanted heart: [place] heart Associated angina: with stable angina Qualified Code(s): I25.118 - Atherosclerotic heart disease of [place] coronary artery with other forms of angina pectoris (13) Obstructive sleep apnea: Status: Chronic (14) Hyperlipidemia: Qualifiers: Hyperlipidemia type: unspecified Qualified Code(s): E78.5 - Hyperlipidemia, unspecified Subjective Subjective Interval history since last seen: Arrived with the patient resting in bed comfortably. He denies having any pain at this time and expresses that he had a great nights sleep. He is very eager to be d/c home later today. Exam Const General: cooperative, healthy appearing and comfortable Orientation: alert and oriented x3 Resp Effort & Inspection: normal respiratory effort, no audible wheezes and no cough GI Inspection: normal to inspection Palpation: soft, no guarding and tender Other: Bilateral incisions are well approximated. Skin a fix in place. Some minor ecchymosis. No erythema or swelling noted. Objective Last Vital Signs Temp 36.7 C 07/28/23 07:20 Pulse 69 07/28/23 07:20 Resp 16 07/28/23 03:25 BP 135/86 07/28/23 07:20 Pulse Ox 95 07/28/23 07:20 Time Spent with Patient Time Spent with Patient: <25 minutes Time was spent: preparing to see the patient(eg.review tests), obtaining and/or reviewing separately otained hiistory and counseling the patient
[2023-07-28] MEDS: Budesonide/Formoterol 160/4.5 6 GM 60 PUFF INH IH ×2 (07:35→20:49)
--- NOTE | 2023-07-28 08:36 | PGE_ITS ---
Date of Service Date of service: 07/28/23 Time of Service: 15:00 Assessment and Plan Assessment and plan (1) Swollen penis: Status: Acute Assessment and plan: 78-year-old man is postop day 1 from bilateral inguinal hernia repair. He is hemodynamically stable and overall doing really well from a hernia standpoint. Not sure exactly what to make of his swollen penis because the bilateral groins look perfect. There is no hematoma at the groins to explain why he would have ecchymosis around the penis. The groins as well as the scrotum bilateral are soft to examination. He does not have any clinical signs or symptoms which would raise concern for retention however he does subjectively report that urinating is difficult. He was able to go a couple 100 cc but feels like it was hard to do so. I did reach out to the urology office but there is no urologist in today. I asked them to let him know about the patient for first thing a.m. in hopes of having consultation as soon as possible. I do not think this is an emergency issue however I would like to have him check this out and make recommendations, if any are necessary. I do not think placing a catheter again is necessary since he seems to be able to void despite the swelling. I also do not think he is in retention but again I do not want to send him home in case that happens at his home. I plan to keep the patient overnight and monitor him. Will do postvoid residuals after he urinates to see if there is any retention developing. Will await urology consultation in the morning to see if there are any specific recommendations they have in regards to this acute, significant swelling which is really unexpected and focal to just the penis shaft alone circumferentially. Plan: Regular diet Hold blood thinners Out of bed and ambulate Ice as needed Urology consultation in the morning, hopeful discharge home thereafter Subjective Subjective Interval history since last seen: Patient has no complaints at the bedside. He is not in any pain. Is tolerating food. He has had good urine output. The [place] catheter was removed this morning. Unfortunately his penis is notably quite edematous and he says he has had some difficulty urinating since the catheter was removed. Nonetheless he has been able to urinate. No fevers. Exam Narrative Exam Narrative: General: Nontoxic, comfortable and interactive Neuro: Alert and oriented x 3 Psych: Good mood and affect, good insight and understanding into his condition Chest: Nonlabored breathing, no wheezing Abdomen: Soft, nondistended and nontender. Groin: The bilateral surgical incisions look perfect. There is no hematoma or ecchymosis or erythema. The surgical glue is intact. Penis does have circumferential ecchymosis and edema. It is not firm or hard and is otherwise soft. It is moderately tender to palpation. Bilateral scrotum are also somewhat ecchymotic but also soft and grossly nontender. No evidence of bobby hematoma. Objective Last Vital Signs Temp 98.1 F 07/28/23 07:20 Pulse 69 07/28/23 07:20 Resp 16 07/28/23 03:25 BP 135/86 07/28/23 07:20 Pulse Ox 95 07/28/23 07:20 Time Spent with Patient Time Spent with Patient: 25-34 minutes Time was spent: referring, communicating with other health primary care provider, indepentently interpreting results, counseling the patient and care coordination
--- NOTE | 2023-07-28 09:10 | INITIAL_ITS ---
Date of service: 07/28/23 Time of Service: 09:10 Care Management Initial Assmt Initial Assessment REASON FOR HOSPITALIZATION:: inguinal hernia PREVIOUS FUNCTIONAL STATUS/SOCIAL/FAMILY SUPPORTS:: Nader lives in an old, two story, single family home in [place] [facility] with his Nelia. They have 7 grown children and all but 2 of them live locally. They also have 17 grandchildren and 3 great grandchildren. 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 He stated that most of the time the driving was local but he did have occasional long distance trips. Nader is independent at baseline and does not receive any community services. CURRENT FUNCTIONAL STATUS:: Nader was sitting up in a chair when CM met with him. He seemed a bit tentative when CM asked to speak with him, but was agreeable during the conversation. Nader had an inguinal hernia repair yesterday and was supposed to be discharged home. He ended up staying overnight due to concerns of urinary retention. Nader stated that he was supposed to go home todays but now has extensive swelling, discomfort and bruising in his perineal area. He will remain hospitalized again tonight and hopefully will see Dr. Saravia in the morning (not available today). Nader did share that ice packs and pain medication have helped with the discomfort. ADVANCE DIRECTIVES:: On file. Nleia ARANA Has patient been provided with info about the portal/API?: Yes Did the patient sign up for the portal?: No CODE STATUS:: Full Code INSURANCE COVERAGE / FINANCIAL ISSUES:: [facility] CURRENT HOME/COMMUNITY SERVICES/EQUIPMENT:: none currently PRIMARY CARE PHYSICIAN:: Jessie Bose POTENTIAL DISCHARGE NEEDS:: follow up with community providers PATIENT/FAMILY EDUCATION NEEDS:: Review of discharge instructions, limitations, diet, activity, follow up plan, discuss Ask Me Three TRANSPORTATION:: via private vehicle with PLAN:: Anticipate Nader will be discharged home with no new services. He will follow up with his community providers and plan of care and transport with friends/family. CM will continue to follow and assess for discharge needs. PFSH All Active Problems (Updated 07/29/23 @ 16:08 by Bobby Saravia MD) Pelvic hematoma in male (Acute) Swollen penis (Acute) PAF (paroxysmal atrial fibrillation) (Acute) [facility] [place]23 Memory loss (Acute) [facility] [place]20[place]23 Pacemaker (Acute) [facility] [place]2023 Acute diarrhea (Acute) Rotator cuff arthropathy of left shoulder (Acute) subacromial corticosteroid injection 10/28/22 Primary hypertension (Chronic) BPH (benign prostatic hyperplasia) (Chronic) RX Finasteride Glaucoma (Chronic) 09/05/19 [place] Depression (Chronic) Long-term RX Wellbutrin Diverticulosis (Chronic) 2019 colonoscopy Sinus node dysfunction (Chronic) [facility] [place]; stay off of BB Obesity (Chronic) Tubular adenoma (Chronic 10/04/08) Colonoscopy 10/04/15 & repeat 2019 (13!) Diabetes type 2, controlled (Chronic) Dx'ed in COPD (chronic obstructive pulmonary disease) (Acute) Coronary artery disease (Chronic) [facility] [place] [employer] [place] 1998 with angina; cath in 1998 1-vessel dis Obstructive sleep apnea (Chronic) h/o CPAP; clausterphobic with masks so stopped using; then 100# weight loss; referred in 11/2019 but he declined Medical History (Updated 07/29/23 @ 16:08 by Bobby Saravia MD) Myocardial infarction X2 1997, 1998 Small bowel obstruction [facility] 05/2018; 02/2023 Normochromic normocytic anemia Bradycardia, sinus 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 court recording monitor Rupture of right biceps tendon PT Cataracts, bilateral 09/05/19 [place] OS>>OD Epidermal inclusion cyst Lipoma of head Removed 04/2019 [place] Anxiety and depression Pancreatitis [facility] 05/2018 (mild) Hyperlipidemia Atorvastatin Surgical History S/P colonoscopy (~05/02/19) 09/2015- [place]- Tubular adenomas x2 05/2019--Brain x13 tubular adenomas Total knee replacement status R 12/11/2013 L S/P shoulder surgery S/P coronary artery stent placement 04/30/19 per pt he does not have a stent. 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 Pets and animals: Yes Sexually active: Yes Do you think of yourself as: straight/heterosexual Current gender identity: male What is your relationship status?: living with partner How often do you get together with friends or relatives?: twice per week Panel score (0-1 are the most socially isolated patients): 1 What type of physical activity do you participate in: walking Duration: > 90 minutes/day Frequency: 3-4 times per week Desirae/Latter Day: Yazidi Special desirae needs: No Seatbelt use: always Drive intox or ride w/intox corrugated fastener driver: No Do you feel safe at home: Yes Do you feel safe in your relationship?: Yes Additional Social history: answering for pt SDOH(Care Management) Screening Will the Patient Participate in the Screening?: Yes Do you worry about having a steady place to live?: no Problems where you live: no known problems In the past 12 months, have you had to go without electric, gas, oil or water in your home?: no Have you or anyone in your house had to go without enough food to eat?: no Has lack of transportation kept you from medical appointments or from doing things needed for daily living?: no Has anyone in your support network made you feel unsafe for any reason?: no
--- NOTE | 2023-07-28 10:19 | PT.INTREAT ---
Date of service: 07/28/23 Time of Service: 09:15 PT Notes Visit Reasons: B/L Inguinal Hernia Repair Inpatient Physical Therapy Treatment Note [facility] Date: 07/28/23 PRECAUTIONS: Fall, standard, activity as tolerated. SUBJECTIVE: Patient reports that he has been better, but appears in reasonably good spirits. OBJECTIVE: Supine in bed, agreeable to therapy. AFTERNOON: Patient sitting up in bedside chair with 3 small ice packs on his groin, refuses therapy. ? PAIN: Patient reports discomfort but does not identify it as pain. VITALS: monitored by nursing staff via telemetry? BED MOBILITY/TRANSFERS? Rolling L/R: independent Supine-sit: independent ? Sit-supine: independent ? Sit-stand: independent ? Stand-sit: independent ? Bed-Chair: SBA? Chair-bed: SBA Gait Training ([id number]): Direct one-on-one instruction and skilled instruction in: [] employing an assistive device [] modified weight-bearing status [x] movement sequencing [x] turning and movement with proper form [] Provided verbal cues for equipment management and technique [x] Provided instruction in gait pattern [] Patient education regarding pacing and breathing techniques to maximize activity tolerance? GAIT? Assistive Device: FWW? Weight bearing: full Assist: CGA ? Distance:? 200 feet (100 feet with FWW, 100 feet without as patient reports that he likely won't use the walker he has at home. Has a walking stick that he prefers to use when he feels as though he needs additional support. ? Deviation: with FWW patient's gait is largely unremarkable. Without FWW patient tends to drift out of a straight trajectory. Recommend using a device for at least the short term while recovering from surgery, although it sounds as though patient's drifting has been a longstanding issue and he may benefit from using a device more consistently for ambulation. ? STAIRS: Patient ascends and descends 4 six inch stairs and 6 four inch stairs with CGA and bilateral railings. ? ASSESSMENT:? patient tolerates therapy well, ends therapy session sitting up in bedside chair PLAN: Continue global strengthening and gait training per plan of care until patient is medically cleared for discharge. TREATMENT CODE/TIME: 21 minutes beginning at 9:15
[2023-07-28] MEDS: Polyethylene Glycol 3350 17 GM PACKET PO (10:40)
[2023-07-28] MEDS: amLODIPine 10 MG TAB PO (10:40)
[2023-07-28] MEDS: buPROPion-CR 150 MG TABCR PO ×2 (10:41→20:50)
[2023-07-28] MEDS: metFORMIN C.R. 500 MG TABCR 1000 MG PO ×2 (10:41→20:50)
--- NOTE | 2023-07-28 10:43 | DSE_ITS ---
Date of service: 07/28/23 Time of Service: 10:43 DS: Diagnosis Discharge Diagnosis (1) PAF (paroxysmal atrial fibrillation): Status: Acute (2) Memory loss: Status: Acute (3) Pacemaker: Status: Acute (4) Hernia: Status: Resolved (5) Bilateral inguinal hernia without obstruction or gangrene: Status: Resolved (6) Primary hypertension: Status: Chronic (7) BPH (benign prostatic hyperplasia): Status: Chronic (8) Glaucoma: Status: Chronic (9) Sinus node dysfunction: Status: Chronic (10) Diabetes type 2, controlled: Status: Chronic (11) COPD (chronic obstructive pulmonary disease): Status: Acute (12) Coronary artery disease: Status: Chronic (13) Obstructive sleep apnea: Status: Chronic (14) Hyperlipidemia: Discharge Plan Disposition Patient Disposition: Home Condition: Improving Discharge Details Reason For Visit: B/L Inguinal Hernia Repair Admit Date/Time: 07/27/23 06:04 Admit Provider: Elly Cordon Attending Provider: Elly Cordon Primary Care Provider: Jessie Bose Hospital Course Hospital Course: see addendum Home Meds and New Rx's Prescriptions: New tramadol 50 mg tablet 50 mg PO Q6H PRNQty: 14 0RF Continued budesonide-formoterol [Symbicort] 160-4.5 mcg/actuation HFA aerosol inhaler 2 puff Inhalation BID Qty: 10.2 11RF nitroglycerin 0.4 mg tablet, sublingual 0.4 mg SUBLINGUAL DIRECTED Qty: 30 0RF metformin 500 mg tablet extended release 24 hr 1,000 mg PO BID Qty: 360 3RF Rx Instructions: ER formulation to prevent loose stool from IR albuterol sulfate [ProAir HFA] 90 mcg/actuation HFA aerosol inhaler 1 - 2 puff Inhalation Q6H PRN Qty: 6.7 2RF Rx Instructions: SOB/wheeze atorvastatin 80 mg tablet See Rx Instructions .ROUTE .COMPLEX Qty: 90 3RF Dose Instruction: TAKE ONE TABLET BY MOUTH AT BEDTIME Rx Instructions: TAKE ONE TABLET BY MOUTH AT BEDTIME bupropion HCl 150 mg tablet sustained-release 12 hr 150 mg PO BID Qty: 180 3RF finasteride [Proscar] 5 mg tablet 5 mg PO HS Qty: 90 3RF sotalol 80 mg tablet 80 mg PO BID Patient Comments: [facility] [place] Cardio Note 07/20/23 acetaminophen [Tylenol] 325 mg capsule 650 mg PO Q6H PRN (Reason: fever or pain) Qty: 30 0RF cholecalciferol (vitamin D3) [Vitamin D3] 50 mcg (2,000 unit) Capsule 50 mcg PO DAILY Eliquis 5 mg tablet 5 mg PO BID Patient Comments: TAKE ONE TABLET BY MOUTH TWICE A DAY latanoprost 0.005 % drops 1 drp ophthalmic (eye) QPM Patient Comments: INSTILL ONE DROP IN EACH EYE EVERY EVENING amlodipine 10 mg tablet 10 mg PO DAILY Rx Instructions: TAKE ONE TABLET BY MOUTH EVERY DAY Discharge Instructions Additional Instructions: Dr. Cordon HERNIA REPAIR ? POSTOPERATIVE INSTRUCTIONS Patients who have this type of surgery can usually be expected to return to work within two weeks and have minimal amounts of discomfort. ? ACTIVITY: Avoid lifting or straining. On the day following surgery, you can be up and about as desired. ? LIFTING: Restrict your lifting to no more than five (5) pounds for two weeks after surgery. ??We will decide when you are done with restrictions and when you can return to work, at your follow-up appointment.? No sexual activity for two weeks.? ? DIET: There are no dietary restrictions following surgery. However, you may want to start with small amounts of liquids to avoid nausea the day of surgery. ? INCISION CARE: You will notice purple skin glue closing the incision.? Do not peel this off- it will wear off on its own.? After 24 hours you may shower. The dressing may be replaced for comfort, but is not necessary. ?An ice bag may be applied to the incision for 72 hours following surgery. ? SIGNS OF INFECTION: It is not unusual to have some black and blue discoloration of the skin around the incision, but also scrotum and penis.? ?It will slowly disappear. If you have any increased redness, drainage, fever (above 100 degrees), please contact your doctor for an examination. ? DISCOMFORT: You may expect to have some mild discomfort at the incision sight. If severe pain develops you should contact your doctor for further instructions. ? URINATION: Patients who have surgery occasionally have problems urinating. If you experience problems and are not able to urinate within 6 hours following your surgery, please call your doctor immediately or go to your nearest Emergency Room for evaluation. ? DRIVING: NO driving for three (3) days after surgery, or if you are still taking narcotic pain medication.? ? MEDICATIONS: Alternate Tylenol 1000mg by mouth every 8 hours and Ibuprofen 600mg every 6 hours. ?Make sure you take ibuprofen with food and not on an empty stomach. ?Take the Tylenol and ibuprofen continuously for the first 72hrs- not just when you have pain.? Use the tramadol for breakthrough pain/pain >7.? Use ICE!?? Twenty minutes on, and then off, continuously for the first 72hours. If you are taking narcotic pain medication, follow the instructions on the label and do not drive. Pain medications can make you very constipated. Make sure you are moving your bowels daily. If not, take Miralax or Milk of Magnesia.?? Anesthesia makes you very constipated.? Take a dose of milk of magnesia the morning after surgery. Resume Eliquis and Vit D on 08/02/23 ? REPORT: Unusual swelling, severe pain, unresolved nausea, signs of infection, or difficulty in urination to your surgeon. Follow up in clinic with Dr. Cordon in 2 weeks.? [phone] Activity:: see above Equipment/Supplies:: No Equipment Needed Diet:: Carb Counting Discharge Orders Discharge Orders: Discharge Order (Routine); Ordered 07/26/23 Ordered By: Elly Cordon DS: Summary Time Spent with Patient providing and/or coordinating discharge services: Less than 30 minutes Status at Discharge Functional status at discharge: independent ambulation Overall status at discharge: patient is progressing back to baseline Mental Status: mental status grossly normal Speech and Movement: speech and movement normal Mood: congruent mood Affect: normal affect Quality:SDOH Health Related Social Needs: No Data to Display Exam Psych Mental Status: mental status grossly normal Speech and Movement: speech and movement normal Mood: congruent mood Affect: normal affect DS: Data Vitals/I&O Vitals and I&O: Vital Signs Temperature 98.1 F 07/28/23 07:20 Temperature Source Tympanic 07/28/23 03:25 Pulse 69 07/28/23 07:20 Pulse Rhythm Regular 07/27/23 21:15 Respiratory Rate 16 07/28/23 03:25 Respiratory Effort Normal 07/28/23 08:30 Respiratory Depth Normal 07/28/23 08:30 Respiratory Pattern Normal 07/28/23 08:30 Blood Pressure 135/86 07/28/23 07:20 Pulse Oximetry 95 07/28/23 07:20 Respiratory End-tidal CO2 31 07/27/23 11:10 Oxygen Delivery Method Room Air 07/28/23 07:20 Oxygen Flow Rate 0 07/28/23 07:20 Pain Level 2 07/28/23 07:20 Comment pt reports mild pain but declines PRN, was sleeping comfortably prior to VS 07/27/23 23:16 Intake & Output 07/27/23 07/27/23 07/28/23 11:59 23:59 11:59 Intake Total 1356.667 / 1584.167 227.5 / 1584.167 500 / 500 Output Total 175 / 5 1900 / 5 400 / 400 Balance 1181.667 / -490.833 -1672.5 / -490.833 100 / 100 Weight 197 lb 12.025 oz Intake: IV 876.667 / 1104.167 227.5 / 1104.167 Oral 480 / 480 500 / 500 Output: Urine / 5 1900 / 5 400 / 400 Other: Urine Color Yellow Yellow Light Rocio Urine Appearance Clear Clear Clear Emesis Description None PFSH All Active Problems (Updated 07/28/23 @ 00:03 by YULY FLANNERY) PAF (paroxysmal atrial fibrillation) (Acute) [facility] [place] Cardio-07/20/23 Memory loss (Acute) [facility] [place] Cardio- 07/20/23 Pacemaker (Acute) [facility] 03/23/2023 Acute diarrhea (Acute) Rotator cuff arthropathy of left shoulder (Acute) subacromial corticosteroid injection 10/28/22 Primary hypertension (Chronic) BPH (benign prostatic hyperplasia) (Chronic) RX Finasteride Glaucoma (Chronic) 09/05/19 [place] Depression (Chronic) Long-term RX Wellbutrin Diverticulosis (Chronic) 2019 colonoscopy Sinus node dysfunction (Chronic) [facility] [place] Cardiolgy; stay off of BB Obesity (Chronic) Tubular adenoma (Chronic 10/04/08) Colonoscopy 10/04/15 & repeat 2019 (13!) Diabetes type 2, controlled (Chronic) Dx'ed in 1970s COPD (chronic obstructive pulmonary disease) (Acute) Coronary artery disease (Chronic) [facility] [employer] [place] [id number] with angina; cath in 1998 1-vessel dis Obstructive sleep apnea (Chronic) h/o CPAP; clausterphobic with masks so stopped using; then 100# weight loss; referred in 11/2019 but he declined Medical History (Updated 07/28/23 @ 00:03 by YULY FLANNERY) Myocardial infarction X2 1997, 1999 Small bowel obstruction [facility] 05/2018; 02/2023 Normochromic normocytic anemia Bradycardia, sinus 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 potline monitor Rupture of right biceps tendon PT Cataracts, bilateral 09/05/19 [place] OS>>OD Epidermal inclusion cyst Lipoma of head Removed 04/2019 [place] Anxiety and depression Pancreatitis [facility] 05/2018 (mild) Hyperlipidemia Atorvastatin Surgical History S/P colonoscopy (~05/02/19) 09/2015- [place]- Tubular adenomas x2 05/2019--Brain x13 tubular adenomas Total knee replacement status R 12/11/2013 L S/P shoulder surgery S/P coronary artery stent placement 04/30/19 per pt he does not have a stent. 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 Pets and animals: Yes Sexually active: Yes Do you think of yourself as: straight/heterosexual Current gender identity: male What is your relationship status?: living with partner How often do you get together with friends or relatives?: twice per week Panel score (0-1 are the most socially isolated patients): 1 What type of physical activity do you participate in: walking Duration: > 90 minutes/day Frequency: 3-4 times per week Desirae/Cheondoism: Denominational Special desirae needs: No Seatbelt use: always Drive intox or ride w/intox grab driver: No Do you feel safe at home: Yes Do you feel safe in your relationship?: Yes Additional Social history: answering for pt Time Spent with Patient Time Spent with Patient: <45 minutes Time was spent: counseling the patient and care coordination
[2023-07-28] MEDS: Enoxaparin 40 MG/0.4 ML SYR SC (11:31)
[2023-07-28 12:18] VITALS: BP 151/80; PULSE 72; RESP 16; TEMP 36.6; O2SAT 96
[2023-07-28 15:27] VITALS: BP 121/76; PULSE 69; RESP 16; TEMP 36.8; O2SAT 96
--- NOTE | 2023-07-28 16:39 | PTTR_ITS ---
PT Notes Visit Reasons: B/L Inguinal Hernia Repair Physical Therapy Inpatient Treatment Note Date: 07/28/2023 Precautions: Fall. Standard. Activity as tolerated. Subjective: Willing to try out walking again. States that he was sitting all day and would appreciate a good long walk. Objective: General Observation: Sitting on chair. Incisions to be inguinal areas intact. Cold pack over inguinal surgical incisions. Telemetry monitoring in place Mental Status: Alert and oriented as to person and purpose. Able to follow single step commands. Pain: None verbalized Vital Signs: Closely monitored by nursing staff Bed Mobility/Transfers: Minimal cueing provided for use of B hands as needed for support, movement sequence, Ad management, and and posture to reduce fall risk and minimize pain report Sit to stand supervision Stand to sit supervision Bed to reclining supervision Gait: Facilitated safe performance of level surface ambulation of 600 feet using front-wheeled walker with stand by assist and minimal verbal cueing for directional changes only. No report of increased pain. Stairs: Facilitated continued training on 6 x 4 inch steps and 4 x 6 inch steps holding onto bilateral rails with step over step pattern requiring only standby assist with no verbal cueing provided and no report of increased pain. Balance: Static Sitting: Good Dynamic Sitting: Fair Static Standing: Fair Dynamic Standing: Fair ASSESSMENT: Patient continues to requires assistance of 1 and the use of a front-wheeled walker for mobility ADL performance to reduce fall risk, although it appeared this afternoon that he may benefit from upgrade to the use of a single-point cane. Will assess readiness for AD upgrade in the next session prior to going home. Plan of Care/Treatment Plan: 1-2x/day, 7 days/week x 1 week. Plan of care has been reviewed with the CHILDCARE DIRECTOR providing the service under Physical Therapy direction. Initiate Physical Therapy intervention for pain management as needed, strengthening, bed mobility, transfers, gait, stairs, balance training, and use of assistive device. DISCHARGE RECOMMENDATIONS: [] Home with no services [] [X] Home with services patient will benefit from home health PT services in order to progress mobility level using least restrictive assistive ambulatory device, assess home safety, identify additional equipment needs, and establish a functional maintenance program that will increase ability of patient to remain at home. [] Home with outpatient PT [] [] SNF for continued rehabilitation [] [] [facility] [] [] SNF versus LTC based on ability to participate and progress [] TREATMENT CODE/TIME: 09912 x 21 minutes for 1 unit beginning at 16:39 PM.
[2023-07-28 17:25] VITALS: BP 100/79; PULSE 74; RESP 20; TEMP 35.9; O2SAT 96
[2023-07-28] MEDS: traMADol 50 MG TAB PO (17:59)
[2023-07-28] MEDS: Latanoprost 0.005% 2.5 ML BTL OP (20:49)
[2023-07-28] MEDS: Atorvastatin 40 MG TAB 80 MG PO (20:50)
[2023-07-28] MEDS: Finasteride 5 MG TAB PO (20:52)
--- NOTE | 2023-07-28 22:28 | PGE_ITS ---
Date of Service Date of service: 07/28/23 Time of Service: 19:30 Assessment and Plan Assessment and plan (1) Swollen penis: Status: Acute Assessment and plan: 78-year-old man is postop day 1 from bilateral open inguinal hernia repair. He is having acute pain and swelling and ecchymosis. It seems obvious that this would be somehow related to either one of the surgical sides, unlikely both and less likely from the penis itself. Nonetheless, my clinical impression is that the origin of what is otherwise obvious subcutaneous bleeding, seems to be within the penis itself. I wonder if a penis vein can somehow get ruptured or something of that nature because it seems as though the focus of ecchymosis is within the shaft of the penis, circumferentially and diffusely, and spreading from there outwards to both sides, left and right equally. Again, both operative sites look perfect. There is no ecchymosis below the incisions and it is not tender beneath the incisions. The tenderness he has is midline overlying the penis and soft tissue nearby it and underneath the ecchymotic skin. I'm not sure exactly what to make of it because again, nothing about this is typical or usual in regards to a postoperative inguinal hernia bleeding/hematoma of which I have seen numerous cases. Remain on?concerned that this is an emergency. He is voiding, albeit it is difficult and there is no significant postvoid residual. Though very swollen and ecchymotic, all of the skin, at this time, appears viable and soft. Nothing is stretched tight, tense or firm. Again, as unusual as it seems to say, my impression is that the hematoma is actually within the shaft of the penis. Stopped all of his blood thinners including DVT prophylaxis. We have ice on the groin. Though it is sore to touch, it does not really seem to be bothering him as long as no one is touching it. For tonight my plan is to continue ice, no blood thinners and see what urology has to say tomorrow. If it continues to expand, it seems like re-operative exploration may be necessary to find what is bleeding, however I would not have a clue of which side to choose to explore first. CT imaging might be helpful if we find ourselves in that situation. I think it makes sense to check some lab work in the morning. Subjective Subjective Interval history since last seen: Checking in on the patient to see how he is doing. At the bedside he says it is a little more sore than it was earlier. Otherwise comfortably watching TV. He says he has been able to urinate a couple more times since when I saw him earlier today but it is still hard to go. He says that he thinks the swelling is getting worse. I checked in with the nursing desk about postvoid residuals and they told me that on both occasions there was no significant residual urine in his bladder. Exam Narrative Exam Narrative: General: Nontoxic, comfortable and interactive Neuro: Alert and oriented x 3 Psych: Good mood and affect, good insight and understanding into his condition Abdomen: Soft, nondistended and nontender Groins: The bilateral incisions remain imperfect. There is no swelling or tend erness around either incision. There is no ecchymosis around either incision. Unfortunately I agree with the patient that the penis is more swollen and ecchymotic than earlier today. The ecchymosis now extends down into his scrotum. The swelling is completely symmetrical and again, my impression clinically is that this originates in the penis proper and is now extending slightly outwards on both sides. All of the tissue remains soft and nothing is hard or firm but there is definitely an increase in the area of ecchymosis. There is no erythema. Objective Last Vital Signs Temp 96.6 F L 07/28/23 17:25 Pulse 74 07/28/23 17:25 Resp 20 07/28/23 17:25 BP 100/79 07/28/23 17:25 Pulse Ox 96 07/28/23 17:25 Time Spent with Patient Time Spent with Patient: <25 minutes Time was spent: counseling the patient
[2023-07-29] MEDS: Acetaminophen 500 MG TAB 1000 MG PO (03:15)
[2023-07-29] MEDS: traMADol 50 MG TAB PO (03:15)
[2023-07-29 06:44] LABS: Abs Immature Grans 0.05 10^3/uL (0.0-0.06); Absolute Basophil Count 0.05 10^3/uL (0.0-0.2); Absolute Eosinophil Count 0.08 10^3/uL (0.0-0.7); Absolute Lymphocyte Count 0.99 10^3/uL (1.2-3.4); Absolute Monocyte Count 1.23 10^3/uL (0.1-0.8); Absolute Neutrophil Count 6.28 10^3/uL (1.2-6.7); Basophils % 0.6; Eosinophils % 0.9; HCT 37.3 % (40.0-50.0); HGB 12.9 g/dL (13.5-17.5); Immature Grans % 0.6; Lymphocytes % 11.4; MCH 29.9 pg (27.0-33.0); MCHC 34.6 % (32.0-36.0); MCV 86 fL (80-95); Monocytes % 14.2; Neutrophils % 72.3; RBC 4.32 10^6/uL (4.36-5.78); RDW 13.7 % (11.8-14.1); WBC 8.68 10^3/uL (4.4-10.8)
[2023-07-29 06:53] LABS: Anion Gap 11.3 mmol/L (3-11); BUN 13 mg/dL (7-18); CO2 24.7 mmol/L (21.0-32.0); CREATININE 0.9 mg/dL (0.70-1.30); Calcium 9.2 mg/dL (8.5-10.1); Chloride 104 mmol/L (98-107); Estimated GFR 86.88 (mL/min/1.73m2); Glucose 112 mg/dL (74-106); Potassium 3.4 mmol/L (3.5-5.1); Sodium 140 mmol/L (136-145)
[2023-07-29 06:54] LABS: PTT Activated 31.9 sec (23.6-32.8); Prothrombin Time 10.5 sec (9.1-11.1)
[2023-07-29 07:09] LABS: Diff Comment Diff Reviewed; RBC Morphology Normal
[2023-07-29] MEDS: Budesonide/Formoterol 160/4.5 6 GM 60 PUFF INH IH (07:46)
[2023-07-29 07:47] VITALS: BP 161/89; PULSE 73; RESP 18; TEMP 36.2; O2SAT 95
[2023-07-29] MEDS: Cholecalciferol (Vitamin D3) 1,000 UNIT TAB 2000 UNITS PO (08:11)
[2023-07-29] MEDS: metFORMIN C.R. 500 MG TABCR 1000 MG PO (08:11)
[2023-07-29] MEDS: amLODIPine 10 MG TAB PO (08:11)
[2023-07-29] MEDS: buPROPion-CR 150 MG TABCR PO (08:11)
[2023-07-29] MEDS: Normal Saline Flush 10 ML SYR IVP (08:12)
[2023-07-29] MEDS: Polyethylene Glycol 3350 17 GM PACKET PO (08:12)
[2023-07-29 09:40] VITALS: RESP 18
--- NOTE | 2023-07-29 10:51 | PT.INTREAT ---
Date of service: 07/29/23 Time of Service: 09:36 PT Notes Visit Reasons: B/L Inguinal Hernia Repair Inpatient Physical Therapy Treatment Note [facility] Date: 07/29/23 PRECAUTIONS: Fall, standard, activity as tolerated. SUBJECTIVE: Patient reports having had ice packs over his groin all night, states that felt pretty good. Report tenderness, heaviness and swollen feeling as well as discomfort bilaterally at his incision sites. Expresses a desire to use a bathroom that has a door, as his only has a curtain and there's a lot of people walking in and out of here all the time. ? OBJECTIVE: Patient is seated EOB when this clinician enters. Agreeable to therapy. ? ? ? PAIN: Reports feeling swollen and uncomfortable. VITALS: monitored by nursing staff. ? BED MOBILITY/TRANSFERS? Rolling L/R: not assessed Supine-sit: not assessed? Sit-supine: not assessed ? Sit-stand: SBA? Stand-sit: SBA ? Bed-Chair: SBA? Chair-bed: SBA ? Therapeutic Exercises ([id number]): Direct one-on-one instruction in therapeutic exercises to develop strength, endurance, range of motion and flexibility. Ambulation ? Assistive Device: FWW? Weight bearing: full Assist: SBA? Distance:? 150 feet to restroom, seated rest, 150 feet back ? Deviation: Patient leaves restroom without walker. LOB noted almost immediately, from which patient recovers independently without support. This clinician reminds and provides education regarding the use of an assistive device to promote safe ambulation, at least until patient has recovered from the surgery. ? Provided skilled instruction in proper exercise performance Provided skilled manual cues to facilitate proper muscle recruitment and/or form. ASSESSMENT:? Patient is not in the habit of using an assistive device for ambulation. Requires reminders and continued practice and education. PLAN: Patient will benefit from HHPT to continue to train regarding safe ambulation practices, as well as balance retraining if possible. TREATMENT CODE/TIME: 16 minutes beginning at 9:36
--- NOTE | 2023-07-29 16:06 | UCONE_ITS ---
Date of service: 07/29/23 Time of Service: 16:10 Assessment and Plan Assessment and plan (1) Pelvic hematoma in male: Status: Acute Assessment and plan: The penile swelling is simply an extension of the pelvic hematoma that is now clinically evident by way of the suprapubic ecchymosis along with scrotal ecchymosis. There is no evidence that the hematoma is expanding, so it should reabsorb on its own. He may need to hold the Eliquis for a bit longer than was originally planned based on how he does clinically. These hematomas may put some external pressure on the bladder to make patient's feel like they need to void more often, but they rarely are under such tension that they obstruct the urine outflow. I do not see any reason to put a Blanton catheter back in this gentleman as he is able to void. I see no reason that he cannot be discharged to home today. I have asked him to give us a call if his voiding symptoms worsen. Otherwise, we will try to coordinate his follow-up visit to coincide with his general surgery visit. History of Present Illness History of Present Illness Chief Complaint: Penile swelling Narrative: This is a 78-year-old gentleman went bilateral hernia repair 2 days ago. I have been asked to see him when. Penile edema was noted. His surgery was done by open technique. It looks like a catheter was placed intraoperatively and the catheter was removed the following day. He was able to urinate, but the patient felt like his stream was a bit more difficult to get started. Yesterday, he was noted to have some penile edema and he was kept in the hospital until a consult could be performed today. He is not complaining of any penile or perineal pain. He continues to void with no dysuria or gross hematuria. He is not complaining of any lightheadedness or dizziness. He is on Eliquis which was held prior to the surgery and has not yet been restarted. He is on finasteride for lower urinary tract symptoms. Review of Systems Narrative: No fevers or chills No vision change or dysphasia Diabetes without neuropathy. No thyroid dysfunction COPD. No hemoptysis No chest pain or palpitations No nausea, vomiting, hepatitis, ulcers, jaundice No seizures, strokes or peripheral neuropathy Bleeds easily while on Eliquis. No anemia No gout PFSH All Active Problems (Updated 07/29/23 @ 16:08 by Bobby Saravia MD) Pelvic hematoma in male (Acute) Swollen penis (Acute) PAF (paroxysmal atrial fibrillation) (Acute) [facility] [place] Cardio-07/20/23 Memory loss (Acute) [facility] [place] Cardio- 07/20/23 Pacemaker (Acute) [facility] [place] 03/23/2023 Acute diarrhea (Acute) Rotator cuff arthropathy of left shoulder (Acute) subacromial corticosteroid injection 10/28/22 Primary hypertension (Chronic) BPH (benign prostatic hyperplasia) (Chronic) RX Finasteride Glaucoma (Chronic) 09/05/19 [place] Depression (Chronic) Long-term RX Wellbutrin Diverticulosis (Chronic) 2018 colonoscopy Sinus node dysfunction (Chronic) [facility] [place] Cardiolgy; stay off of BB Obesity (Chronic) Tubular adenoma (Chronic 10/04/08) Colonoscopy 10/04/15 & repeat 2019 (13!) Diabetes type 2, controlled (Chronic) Dx'ed in COPD (chronic obstructive pulmonary disease) (Acute) Coronary artery disease (Chronic) [facility] [place] 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 05/2018 (mild) Hyperlipidemia Atorvastatin Surgical History S/P colonoscopy (~05/02/19) 09/2015- [place]- Tubular adenomas x2 05/2019--Brain x13 tubular adenomas Total knee replacement status R 12/11/2013 L S/P shoulder surgery S/P coronary artery stent placement 04/30/19 per pt he does not have a stent. 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 Pets and animals: Yes Sexually active: Yes Do you think of yourself as: straight/heterosexual Current gender identity: male What is your relationship status?: living with partner How often do you get together with friends or relatives?: twice per week Panel score (0-1 are the most socially isolated patients): 1 What type of physical activity do you participate in: walking Duration: > 90 minutes/day Frequency: 3-4 times per week Desirae/Mandaen: Synagogue Special desirae needs: No Seatbelt use: always 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 There is ecchymosis and edema in the suprapubic area extending down onto the shaft of the penis. The ecchymosis (but not the edema) is now extending into the scrotum. He is awake and alert Results Last Vital Signs Temp 36.2 C L 07/29/23 07:47 Pulse 73 07/29/23 07:47 Resp 18 07/29/23 09:40 BP 161/89 H 07/29/23 07:47 Pulse Ox 95 07/29/23 07:47 Labs 07/29/23 05:58 07/29/23 05:58 Labs: Laboratory Results - last 24 hr 07/29/23 05:58 WBC 8.68 RBC 4.32 L Hgb 12.9 L Hct 37.3 L MCV 86 MCH 29.9 MCHC 34.6 RDW 13.7 Plt Count MPV Immature Gran % 0.6 Neutrophils % 72.3 Lymphocytes % 11.4 Monocytes % 14.2 Eosinophils % 0.9 Basophils % 0.6 Nucleated RBC % 0.0 Absolute Neutrophils 6.28 Absolute Lymphocytes 0.99 L Absolute Monocytes 1.23 H Absolute Eosinophils 0.08 Absolute Basophils 0.05 RBC Morphology Normal PT 10.5 INR 1.0 APTT 31.9 Sodium 140 Potassium 3.4 L Chloride 104 Carbon Dioxide 24.7 Anion Gap 11.3 H BUN 13 Creatinine 0.9 Est GFR (CKD-EPI 2020) 86.88 Glucose 112 H Calcium 9.2
--- NOTE | 2023-07-29 17:11 | PDOC.CMDIS ---
Date of service: 07/29/23 Time of Service: 17:11 LACE Index Scoring Tool Questions: Length of Stay (in days): 2 Was the patient admitted via the E.D.?: No Comorbidities: Diabetes w/o Complication, Chronic Pulmonary Disease and Dementia E.D. Visits: 3 Answers: Total Score: 10 Risk of Readmission: High Risk Care Management Discharge Plan Reason for Hospitalization: inguinal hernia Discharge Plan: Don will be discharged home with no new services. He will follow up with his community providers and plan of care and transport with friends/family. Patient/Family Education Needs: Review of discharge instructions, limitations, diet, activity, follow up plan, discuss Ask Me Three [facility] Health Related Social Needs: No Data to Display
== END 2023-07-29 12:34 | disposition home or self-care (01) ==
LOC: MS 11:22 → PDS 11:23
PROVIDERS: Student in an Organized Health Care Education/Training Program; Admitting Provider Surgery; PCP Nurse Practitioner Adult Health; Visit Provider Surgery
PROC: (CPT 49505; principal; 2023-07-27 07:30)
DX: K40.20 Bilateral inguinal hernia, without obstruction or gangrene, not specified as recurrent (principal); N99.840 Postprocedural hematoma of a genitourinary system organ or structure following a genitourinary system procedure; N40.0 Benign prostatic hyperplasia without lower urinary tract symptoms; I10 Essential (primary) hypertension; H40.9 Unspecified glaucoma; I48.0 Paroxysmal atrial fibrillation; R41.3 Other amnesia; Z95.0 Presence of cardiac pacemaker; Z68.33 Body mass index [BMI] 33.0-33.9, adult; I25.10 Atherosclerotic heart disease of native coronary artery without angina pectoris; K57.90 Diverticulosis of intestine, part unspecified, without perforation or abscess without bleeding; J44.9 Chronic obstructive pulmonary disease, unspecified; E11.9 Type 2 diabetes mellitus without complications; F32.A Depression, unspecified; Z79.899 Other long term (current) drug therapy; I25.2 Old myocardial infarction; E78.5 Hyperlipidemia, unspecified; Z95.5 Presence of coronary angioplasty implant and graft
CPT/HCPCS: 49505; 00123; 36415; 76942; 80048; 94640; 96372; 97110; 97116; 97162; 97530; 99222; J1650; 85025; 85610; 85730; 94664; C1781; C9290; G0378; J0665; J0690; J1100; J2001; J2371; J2405; J2704

== ENCOUNTER → 2023-07-29 07:43 | Outpatient (BNVA) | payer OTHER, SELFPAY | PROVIDERS: PCP Nurse Practitioner Adult Health; Referring Provider Nurse Practitioner Adult Health; Visit Provider Urology ==

== ENCOUNTER → 2023-08-16 09:58 | Outpatient (BNVA) | payer OTHER, SELFPAY | PROVIDERS: PCP Nurse Practitioner Adult Health; Referring Provider Nurse Practitioner Adult Health; Visit Provider Surgery ==

== ENCOUNTER → 2023-08-16 12:12 | Outpatient (CLI) | payer OTHER, SELFPAY ==
--- NOTE | 2023-08-16 10:45 | DI.US_ITS ---
Exam(s) US LOWER EXTREMITY VENOUS RT EXAM: US LOWER EXTREMITY VENOUS RT CLINICAL HISTORY: M79.661,M79.89,Z98.890 pain/swelling red calf. s/p hernia repair TECHNIQUE: Grayscale, color, and doppler imaging of the deep venous system of the right lower extrem ity was performed. COMPARISON: US POCUS EXAM from 07/27/2023 FINDINGS: There is no evidence of intraluminal thrombus and there is normal compression and augmentation demons trated within the common femoral vein, femoral vein, and popliteal vein. In the ipsilateral calf the interrogated veins also exhibit normal compression/ augmentation properti es. The ipsilateral saphenofemoral junction is patent. IMPRESSION: 1. No evidence of DVT in the right lower extremity. DATA REPOSITORY:
--- NOTE | 2023-08-16 10:45 | DI.RAD_ITS ---
Exam(s) XR CHEST 2V PA LATERAL EXAM: XR CHEST 2V PA LATERAL CLINICAL HISTORY: R06.02,J44.9,Z98.890; sob postOp /hx of sick sinus syndrome and chf. TECHNIQUE: 2D digital imaging was performed. COMPARISON: Prior chest x-ray February 2023. FINDINGS: 2 views: There has been interval placement of a bipolar left subclavian pacemaker with lead tips in RA and rig ht ventricle. Heart size is normal. The mediastinum is not widened. Right hemidiaphragm is again noted to be significantly elevated. There are no infiltrates nor pleura l effusions. No pulmonary edema. No fractures. IMPRESSION: Elevated right hemidiaphragm again noted. No acute pulmonary findings. Bipolar pacemaker. Normal heart size. No pulmonary edema. DATA REPOSITORY: RADIATION DOSE DELIVERED:
== END ==
PROVIDERS: PCP Nurse Practitioner Adult Health; Visit Provider Surgery
DX: M79.661 Pain in right lower leg (principal); M79.89 Other specified soft tissue disorders; Z98.890 Other specified postprocedural states; G47.33 Obstructive sleep apnea (adult) (pediatric); I25.10 Atherosclerotic heart disease of native coronary artery without angina pectoris; I48.0 Paroxysmal atrial fibrillation; J44.9 Chronic obstructive pulmonary disease, unspecified; N48.89 Other specified disorders of penis; Z95.0 Presence of cardiac pacemaker
CPT/HCPCS: 71046; 93971

== ENCOUNTER → 2023-08-18 11:16 | Outpatient (CLI) | payer OTHER, SELFPAY ==
--- NOTE | 2023-08-18 10:45 | DI.RAD_ITS ---
Exam(s) XR ANKLE RT COMPLETE EXAM: XR ANKLE RT COMPLETE CLINICAL HISTORY: Pain and swelling after a fall, rt leg pain, M79.604. TECHNIQUE: 2D digital imaging was performed. Three views. COMPARISON: CR RIGHT ANKLE COMPLETE from 06/26/2008 FINDINGS: BONES: No acute fracture is present. No bony destructive lesion is seen. Chronic appearing bony de nsities beneath the medial malleolus. Plantar calcaneal spur. JOINTS: The ankle mortise is normally aligned. The ankle joint space is maintained. SOFT TISSUE: Marked swelling around ankle assault lower leg. Vascular calcifications. Calcification s in Achilles tendon. IMPRESSION: Soft tissue swelling. No evidence of fracture. DATA REPOSITORY: RADIATION DOSE DELIVERED:
--- NOTE | 2023-08-18 10:45 | DI.RAD_ITS ---
Exam(s) XR KNEE RT 4V AP,LAT,KASSI,PAT EXAM: XR KNEE RT 4V AP,LAT,KASSI,PAT CLINICAL HISTORY: Pain and swelling after fall, rt leg pain, M79.604. TECHNIQUE: 2D digital imaging was performed. Three views. COMPARISON: CR RIGHT KNEE 3 VIEWS from 09/20/2016 FINDINGS: BONES: No acute fracture is present. No bony destructive lesion is seen. JOINTS: There has been no change in the total knee prosthesis. The prosthesis is normally aligned. N o joint effusion is seen. SOFT TISSUE: Mild anterior swelling. IMPRESSION: No acute abnormality. DATA REPOSITORY: RADIATION DOSE DELIVERED:
== END ==
PROVIDERS: PCP Nurse Practitioner Adult Health; Visit Provider Family Medicine
DX: M79.604 Pain in right leg (principal); W19.XXXA Unspecified fall, initial encounter
CPT/HCPCS: 73564; 73610

== ENCOUNTER → 2023-10-07 10:22 | Outpatient (BNVA) | payer OTHER, SELFPAY | PROVIDERS: PCP Nurse Practitioner Adult Health; Referring Provider Nurse Practitioner Adult Health; Visit Provider Surgery | DX: Z48.817 Encounter for surgical aftercare following surgery on the skin and subcutaneous tissue (principal); Z87.19 Personal history of other diseases of the digestive system ==

== ENCOUNTER 2023-10-21 13:05 | Emergency (ER) | payer OTHER, SELFPAY ==
[2023-10-21 13:16] VITALS: BP 174/80; PULSE 70; RESP 16; TEMP 36.9; O2SAT 97
--- NOTE | 2023-10-21 13:30 | DI.CT_ITS ---
Exam(s) CT HEAD CERVICAL SPINE WO EXAM: CT HEAD CERVICAL SPINE WO CLINICAL HISTORY: fall, hit head. On eliquis. TECHNIQUE: Imaging Protocol: Axial computed tomography images with coronal and sagittal reformatted images were created and reviewed COMPARISON: No priors for comparison. FINDINGS: CT Head: Ventricles and Extra axial spaces: Normal in size and morphology for the patient's age. Hemorrhage: None. Cerebral parenchyma: No acute territorial infarct. There are areas of decreased attenuation in the w flako matter consistent with chronic microvascular ischemic disease. No mass effect is identified. Midline shift: None. Brainstem/Cerebellum: Normal. Calvarium: Normal. Visualized Paranasal sinuses/Mastoids: Clear. Soft Tissues: Unremarkable. CT Cervical Spine: Bones: No acute fracture or subluxation. There is reversal of the normal cervical lordosis which may be chronic. Moderately severe degenerative changes are present throughout the cervical spine. Soft Tissues: Unremarkable. Lung Apices: Clear. IMPRESSION: 1. No acute intracranial process. 2. No acute fracture or subluxation in the cervical spine. 3. Moderately severe degenerative changes in the cervical spine with reversal of the normal cervical lordosis which is probably chronic. RADIATION DOSE DELIVERED: Total DLP DATA REPOSITORY: All CT scans at this facility are submitted to the National Radiology Data Registry (NRDR) Dose Index Registry (DIR) with the [employer] (ACR). RADIATION OPTIMIZATION: All CT scans at this facility use at least one of these dose optimization te chniques: automated exposure control; mA and/or kV adjustment per patient size (includes targeted exa ms where dose is matched to clinical indication); or iterative reconstruction.
--- NOTE | 2023-10-21 13:30 | DI.RAD_ITS ---
Exam(s) XR FEMUR LT EXAM: XR FEMUR LT CLINICAL HISTORY: fall, c/o L thigh pain. TECHNIQUE: 2D digital imaging was performed of the left femur. Four images were obtained. AP and lat eral views were obtained. COMPARISON: None. FINDINGS: BONES: No acute fracture is present. No bony destructive lesion is seen. The patient has a left total knee replacement. SOFT TISSUE: Vascular calcifications are present. IMPRESSION: No acute fracture or dislocation. DATA REPOSITORY: RADIATION DOSE DELIVERED:
--- NOTE | 2023-10-21 13:30 | DI.CT_ITS ---
Exam(s) CT THORACIC SPINE RECONS CT CHEST WO EXAM: CT CHEST WO CLINICAL HISTORY: L sided chest pain s/p fall with t-spine discomfor. TECHNIQUE: Imaging protocol: Axial computed tomography images were obtained and coronal and sagittal reformatted images were created and reviewed. COMPARISON: CR XR CHEST 2V PA LATERAL from 08/16/2023 FINDINGS: The examination is limited due to patient motion artifact. Tracheobronchial tree: Patent where visualized. Pulmonary parenchyma: No consolidation or dominant measurable mass. No architectural distortion. Ther e is a calcified granuloma in the right upper lobe. Mediastinum and Stephanie: No dominant adenopathy or fluid collection. The esophagus is unremarkable. Thyroid gland: Unremarkable. Pleura: No effusion or pneumothorax. Heart: The heart is not dilated. Coronary artery calcification and/or stents. There is a cardiac dev ice in place. No pericardial effusion. Aorta: Thoracic aorta non-dilated. Atherosclerotic calcification is present. Upper abdomen: There is elevation of the right hemidiaphragm. Lymph nodes: Within normal limits. Tubes, Catheters, and Lines: There is a cardiac device in place. Soft tissues: Unremarkable. Bones:Within normal limits for the patient's age. CT thoracic spine recons: There are degenerative changes seen in the thoracic spine. No acute fractu res or subluxations are seen. IMPRESSION: 1. No acute pulmonary process. 2. No acute fracture or subluxation in the thoracic spine. RADIATION DOSE DELIVERED: Total DLP Total DLP DATA REPOSITORY: All CT scans at this facility are submitted to the National Radiology Data Registry (NRDR) Dose Index Registry (DIR) with the [employer] (ACR). RADIATION OPTIMIZATION: All CT scans at this facility use at least one of these dose optimization te chniques: automated exposure control; mA and/or kV adjustment per patient size (includes targeted exa ms where dose is matched to clinical indication); or iterative reconstruction.
--- NOTE | 2023-10-21 13:37 | W.ED.GENAD ---
Discharge Plan Disposition Patient Disposition: Home Discharge Details Clinical Impression: Fall Primary Care Provider: Jessie Bose ED Provider: Marta Ragland Home Meds and New Rx's Prescriptions: No Action budesonide-formoterol [Symbicort] 160-4.5 mcg/actuation HFA aerosol inhaler 2 puff Inhalation BID Qty: 10.2 11RF atorvastatin 80 mg tablet See Rx Instructions .ROUTE .COMPLEX Qty: 90 3RF Dose Instruction: TAKE ONE TABLET BY MOUTH AT BEDTIME Rx Instructions: TAKE ONE TABLET BY MOUTH AT BEDTIME metformin 500 mg tablet extended release 24 hr 1,000 mg PO BID Qty: 360 3RF Rx Instructions: ER formulation to prevent loose stool from IR albuterol sulfate [ProAir HFA] 90 mcg/actuation HFA aerosol inhaler 1 - 2 puff Inhalation Q6H PRN Qty: 6.7 2RF Rx Instructions: SOB/wheeze nitroglycerin 0.4 mg tablet, sublingual 0.4 mg SUBLINGUAL DIRECTED Qty: 30 0RF sotalol 80 mg tablet 80 mg PO BID Qty: 180 0RF loperamide [Imodium A-D] 2 mg tablet 2 mg PO Q6H PRN (Reason: loose stool) Qty: 90 12RF bupropion HCl 150 mg tablet sustained-release 12 hr 150 mg PO BID Qty: 180 3RF finasteride [Proscar] 5 mg tablet 5 mg PO HS Qty: 90 3RF acetaminophen [Tylenol] 325 mg capsule 650 mg PO Q6H PRN (Reason: fever or pain) Qty: 30 0RF cholecalciferol (vitamin D3) [Vitamin D3] 50 mcg (2,000 unit) Capsule 50 mcg PO DAILY Eliquis 5 mg tablet 5 mg PO BID Patient Comments: TAKE ONE TABLET BY MOUTH TWICE A DAY latanoprost 0.005 % drops 1 drp ophthalmic (eye) QPM Patient Comments: INSTILL ONE DROP IN EACH EYE EVERY EVENING spironolactone 25 mg tablet 25 mg PO DAILY Patient Comments: TAKE ONE TABLET BY MOUTH EVERY DAY tamsulosin 0.4 mg capsule 0.4 mg PO DAILY Patient Comments: TAKE ONE CAPSULE BY MOUTH AT BEDTIME MONITOR FOR LOW BLOOD PRESSURE Rx Instructions: family unsure if taking amlodipine 10 mg tablet 10 mg PO DAILY Rx Instructions: TAKE ONE TABLET BY MOUTH EVERY DAY Discharge Instructions Additional Instructions: I encourage you to follow-up with your primary care provider as needed for further evaluation and management. You may use Tylenol as needed for any body aches. Muscle rubs such as [place] may be helpful. Gentle stretching and advancing activity as tolerated is recommended. Return to emergency care if you develop new severe headache, sustain new falls, develop difficulty breathing, or if you are very worried and need to be rechecked again immediately. Referrals: Jessie Bose NP [Primary Care Provider] - [facility] General Date/Time Provider Initiated Documentation: 10/21/23 13:35. HPI Narrative: Corona is a 78-year-old male on anticoagulation who presents to the emergency department today for evaluation after fall. He reports that he was moving dirt in a wheelbarrow that was missing 1 leg, says it tipped over and caused him to fall onto the ground. He denies loss of consciousness, but says that he hit everything. He is currently reporting left thigh pain, pain between the scapula, and left lower anterior rib pain. Denies headache, dizziness, vision changes, nausea/vomiting, neck pain, difficulty breathing, other chest pain, weakness in arms or legs. 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 He has been otherwise in good health. Acting normally since fall per . Related Data Home Medications Medication Instructions Recorded Confirmed acetaminophen 325 mg capsule 650 mg (2 x 325 mg) PO Q6H PRN 05/10/19 10/21/23 (Tylenol) fever or pain #30 caps cholecalciferol (vitamin D3) 50 50 mcg PO DAILY 07/07/21 10/21/23 mcg (2,000 unit) capsule (Vitamin D3) budesonide-formoterol HFA 160 2 puff inhalation BID #10.2 grams 11/03/21 10/21/23 mcg-4.5 mcg/actuation aerosol inhaler (Symbicort) bupropion HCl 150 mg tablet,12 hr 150 mg PO BID #180 tabs 12/24/22 10/21/23 sustained-release metformin 500 mg tablet,extended 1,000 mg (2 x 500 mg) PO BID #360 01/04/23 10/21/23 release 24 hr tabs finasteride 5 mg tablet (Proscar) 5 mg PO HS #90 tabs 02/08/23 10/21/23 amlodipine 10 mg tablet 10 mg PO DAILY 02/15/23 10/21/23 apixaban 5 mg tablet (Eliquis) 5 mg PO BID 04/13/23 10/21/23 latanoprost 0.005 % eye drops 1 drp ophthalmic (eye) QPM 07/27/23 10/21/23 atorvastatin 80 mg tablet See Rx Instructions .Route 08/04/23 10/21/23 .COMPLEX #90 tabs albuterol sulfate 90 mcg/actuation 1 - 2 puff inhalation Q6H PRN 08/17/23 10/21/23 aerosol inhaler (ProAir HFA) shortness of breath or wheezing #6.7 grams nitroglycerin 0.4 mg sublingual 0.4 mg sublingual DIRECTED #30 08/17/23 10/21/23 tablet tabs sotalol 80 mg tablet 80 mg PO BID #180 tabs 08/17/23 10/21/23 loperamide 2 mg tablet (Imodium 2 mg PO Q6H PRN loose stool #90 10/07/23 10/21/23 A-D) tabs spironolactone 25 mg tablet 25 mg PO DAILY 10/21/23 10/21/23 tamsulosin 0.4 mg capsule 0.4 mg PO DAILY 10/21/23 10/21/23 Previous Rx's Medication Instructions Recorded acetaminophen 325 mg capsule 650 mg (2 x 325 mg) PO Q6H PRN 05/10/19 (Tylenol) fever or pain #30 caps budesonide-formoterol HFA 160 2 puff inhalation BID #10.2 grams 11/03/21 mcg-4.5 mcg/actuation aerosol inhaler (Symbicort) bupropion HCl 150 mg tablet,12 hr 150 mg PO BID #180 tabs 12/24/22 sustained-release metformin 500 mg tablet,extended 1,000 mg (2 x 500 mg) PO BID #360 01/04/23 release 24 hr tabs finasteride 5 mg tablet (Proscar) 5 mg PO HS #90 tabs 02/08/23 atorvastatin 80 mg tablet See Rx Instructions .Route 08/04/23 .COMPLEX #90 tabs albuterol sulfate 90 mcg/actuation 1 - 2 puff inhalation Q6H PRN 08/17/23 aerosol inhaler (ProAir HFA) shortness of breath or wheezing #6.7 grams nitroglycerin 0.4 mg sublingual 0.4 mg sublingual DIRECTED #30 08/17/23 tablet tabs sotalol 80 mg tablet 80 mg PO BID #180 tabs 08/17/23 loperamide 2 mg tablet (Imodium 2 mg PO Q6H PRN loose stool #90 10/07/23 A-D) tabs Allergies Allergy/AdvReac Type Severity Reaction Status Date / Time oxycodone AdvReac Intermediate He goes a Verified 10/21/23 13:19 little wacky General Stated Complaint: Fall/Non TraumaCriteria LOREN: 3 Review of Systems Narrative: see HPI Exam Const General: cooperative, healthy appearing, comfortable and no acute distress Nutritional Appearance: average body habitus Orientation: alert and oriented x3 HENMT Head: normal to inspection, no palpable skull fracture, normocephalic, atraumatic, no Sanders's sign, no raccoon eyes, no scalp lesions and no scalp tenderness Ears: hearing grossly normal bilaterally and TM's normal bilaterally General nose exam: external nose normal Face and sinus: normal facial exam, face symmetric and no abrasions Mouth: oral mucosae normal Eyes General: appearance normal, both eyes and all related structures Pupils: PERRL EOM: EOM intact bilaterally Neck Neck: normal visual inspection and full ROM Chest Chest: no crepitus, tenderness (L anterior lower ribs) and pacemaker Resp Effort & Inspection: normal respiratory effort and able to speak in complete sentences Auscultation: clear to auscultation bilaterally Cardio Rate: regular rate Rhythm: regular rhythm Back/Spine/Pelvis Cervical Spine: cervical ROM normal Thoracic/Lumbar Spine: thoracic spinal tenderness (no point tenderness, generalized) Skin General skin exam: no rashes or lesions noted Wounds: no wounds Neuro General: patient alert, patient oriented x3 and no focal motor deficits Cranial Nerves: PERRL, EOM intact bilaterally and able to rotate head bilaterally Cognition: normal cognition Speech: speech normal Gait: normal gait Motor: muscle tone normal throughout and strength 5/5 throughout Sensory Exam: no sensory deficits noted Coordination: [id number] test normal and rapid alternating movement UE normal Course Vital Signs Vital signs: Vital Signs Temperature 36.9 C 10/21/23 13:16 Pulse 70 10/21/23 13:16 Respiratory Rate 16 10/21/23 13:16 Blood Pressure 174/80 H 10/21/23 13:16 Pulse Oximetry 97 10/21/23 13:16 Temperature 36.9 C 10/21/23 13:16 Temperature Source Temporal Artery Scan 10/21/23 13:16 Pulse 70 10/21/23 13:16 Respiratory Rate 16 10/21/23 13:16 Respiratory Effort Normal, Non-Labored 10/21/23 13:23 Blood Pressure 174/80 H 10/21/23 13:16 Blood Pressure Position Sitting 10/21/23 13:16 Pulse Oximetry 97 10/21/23 13:16 Oxygen Delivery Method Room Air 10/21/23 13:16 Oxygen Flow Rate 0 10/21/23 13:16 Pain Level 8 10/21/23 13:16 Medical Decision Making Corona is a 78-year-old male on anticoagulation who presents to the emergency department today for evaluation after fall. He reports that he was moving dirt in a wheelbarrow that was missing 1 leg, says it tipped over and caused him to fall onto the ground. He denies loss of consciousness, but says that he hit everything. He is currently reporting left thigh pain, pain between the scapula, and left lower anterior rib pain. Denies headache, dizziness, vision changes, nausea/vomiting, neck pain, difficulty breathing, other chest pain, weakness in arms or legs. 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 He has been otherwise in good health. Acting normally since fall per . Physical exam remarkable for tenderness with palpation of T-spine between the scapula and tenderness with palpation of left lower anterior ribs. Patient is alert and oriented x 4, in no acute distress. No flail chest or crepitus noted. No C-spine tenderness. PERRL, EOMs intact. No dental damage noted. No hemotympanums, Sanders sign, or raccoon eyes. No scalp deformity or bogginess concerning for fracture. Normal finger to finger and rapid alternating movements. Moving all extremities equally. Able to stand without difficulty. Easy work of breathing, lung sounds clear bilaterally. Normal heart sounds. D/dx includes but is not limited to: intracranial hemorrhage, chest wall contusion, vertebral fracture, rib fracture, other musculoskeletal injury. I independently interpreted the following tests: CT head and c-spine reassuring, no acute findings. This was confirmed by radiology, who also noted reversal of cervical lordosis (likely chronic as pt does not report any neck pain at this time). CT chest and t-spine reassuring, no acute findings noted. While in the emergency dept Corona was able to ambulate without difficulty. He denies discomfort other than the L side of his chest and L leg. Overall workup today very reassuring. Soreness likely muscular in origin. Reviewed discharge instructions with patient, including symptomatic management. Recommend follow-up with PCP as needed for further evaluation. He does have an appt scheduled for next week; advised discussing fall prevention. Imaging Data Radiologic Study: Radiologist's impression: XR FEMUR LT EXAM: XR FEMUR LT CLINICAL HISTORY: fall, c/o L thigh pain. TECHNIQUE: 2D digital imaging was performed of the left femur. Four images were obtained. AP and lateral views were obtained. COMPARISON: None. FINDINGS: BONES: No acute fracture is present. No bony destructive lesion is seen. The patient has a left total knee replacement. SOFT TISSUE: Vascular calcifications are present. IMPRESSION: No acute fracture or dislocation. Radiologic Study #2: Radiologist's impression: Exam(s) CT HEAD CERVICAL SPINE WO EXAM: CT HEAD CERVICAL SPINE WO CLINICAL HISTORY: fall, hit head. On eliquis. TECHNIQUE: Imaging Protocol: Axial computed tomography images with coronal and sagittal reformatted images were created and reviewed COMPARISON: No priors for comparison. FINDINGS: CT Head: Ventricles and Extra axial spaces: Normal in size and morphology for the patient's age. Hemorrhage: None. Cerebral parenchyma: No acute territorial infarct. There are areas of decreased attenuation in the white matter consistent with chronic microvascular ischemic disease. No mass effect is identified. Midline shift: None. Brainstem/Cerebellum: Normal. Calvarium: Normal. Visualized Paranasal sinuses/Mastoids: Clear. Soft Tissues: Unremarkable. CT Cervical Spine: Bones: No acute fracture or subluxation. There is reversal of the normal cervical lordosis which may be chronic. Moderately severe degenerative changes are present throughout the cervical spine. Soft Tissues: Unremarkable. Lung Apices: Clear. IMPRESSION: 1. No acute intracranial process. 2. No acute fracture or subluxation in the cervical spine. 3. Moderately severe degenerative changes in the cervical spine with reversal of the normal cervical lordosis which is probably chronic. Radiologic Study #3: Radiologist's impression: Exam(s) CT THORACIC SPINE RECONS CT CHEST WO EXAM: CT CHEST WO CLINICAL HISTORY: L sided chest pain s/p fall with t-spine discomfor. TECHNIQUE: Imaging protocol: Axial computed tomography images were obtained and coronal and sagittal reformatted images were created and reviewed. COMPARISON: CR XR CHEST 2V PA LATERAL from 08/16/2023 FINDINGS: The examination is limited due to patient motion artifact. Tracheobronchial tree: Patent where visualized. Pulmonary parenchyma: No consolidation or dominant measurable mass. No architectural distortion. There is a calcified granuloma in the right upper lobe. Mediastinum and Stephanie: No dominant adenopathy or fluid collection. The esophagus is unremarkable. Thyroid gland: Unremarkable. Pleura: No effusion or pneumothorax. Heart: The heart is not dilated. Coronary artery calcification and/or stents. There is a cardiac device in place. No pericardial effusion. Aorta: Thoracic aorta non-dilated. Atherosclerotic calcification is present. Upper abdomen: There is elevation of the right hemidiaphragm. Lymph nodes: Within normal limits. Tubes, Catheters, and Lines: There is a cardiac device in place. Soft tissues: Unremarkable. Bones:Within normal limits for the patient's age. CT thoracic spine recons: There are degenerative changes seen in the thoracic spine. No acute fractures or subluxations are seen. IMPRESSION: 1. No acute pulmonary process. 2. No acute fracture or subluxation in the thoracic spine. Quality:SDOH Health Related Social Needs: No Data to Display PFSH All Active Problems (Updated 10/21/23 @ 15:47 by Marta Stahl) Fall (Acute) History of bilateral inguinal hernia repair (Acute) Hallucinations (Acute) Leg pain, right (Acute) SOB (shortness of breath) on exertion (Acute) Postoperative state (Acute) Calf swelling (Acute) Memory difficulty (Acute ~07/2023) Pelvic hematoma in male (Acute) Swollen penis (Acute) PAF (paroxysmal atrial fibrillation) (Chronic[place] [facility] [place] Pac[place] (Acute ~03/2023[place] [facility] [place] Acute diarrhea (Acute) Rotator cuff arthropathy of left shoulder (Acute) subacromial corticosteroid injection 10/28/22 Primary hypertension (Chronic) BPH (benign prostatic hyperplasia) (Chronic) RX Finasteride Glaucoma (Chronic) 09/05/19 [place] Depression (Chronic) Long-term RX Wellbutrin Diverticulosis (Chronic) 2018 colonoscopy Sinus node dysfunction (Chronic[place] [facility] [place] stay off of BB Obesity (Chronic) Tubular adenoma (Chronic 10/04/08) Colonoscopy 10/04/15 & repeat 2019 (13!) Diabetes type 2, controlled (Chronic) Dx'ed in COPD (chronic obstructive pulmonary disease) (Acute) Coronary artery disease (Chronic) [facility] [place] [place] 1998 with angina; cath in 1998 1-vessel dis Obstructive sleep apnea (Chronic) h/o CPAP; clausterphobic with masks so stopped using; then 100# weight loss; referred in 11/2019 but he declined Medical History (Updated 10/21/23 @ 15:47 by Marta Stahl) Myocardial infarction X2 1997, 1998 Small bowel obstruction [facility] 05/2018; 02/2023 Normochromic normocytic anemia Bradycardia, sinus 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 monitoring tech Rupture of right biceps tendon PT Cataracts, bilateral 09/05/19 [place] OS>>OD Epidermal inclusion cyst Lipoma of head Removed 04/2019 [place] Anxiety and depression Pancreatitis [facility] 05/2018 (mild) Hyperlipidemia Atorvastatin Surgical History (Updated 10/07/23 @ 10:52 by Elly Cordon DO) S/P bilateral inguinal hernia repair, follow-up exam S/P cardiac pacemaker procedure (~03/2023) S/P colonoscopy (~05/02/19) 09/2015- C[place]- Tubular adenomas x2 05/2019--Brain x13 tubular adenomas Total knee replacement status R 12/11/2013 L S/P shoulder surgery S/P coronary artery stent placement 04/30/19 per pt he does not have a stent. 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 Pets and animals: Yes Sexually active: Yes Do you think of yourself as: straight/heterosexual Current gender identity: male What is your relationship status?: living with partner How often do you get together with friends or relatives?: twice per week Panel score (0-1 are the most socially isolated patients): 1 What type of physical activity do you participate in: walking Duration: > 90 minutes/day Frequency: 3-4 times per week Desirae/Yarsanism: Mosque Special desirae needs: No Seatbelt use: always Drive intox or ride w/intox helper/driver: No Do you feel safe at home: Yes Do you feel safe in your relationship?: Yes Additional Social history: answering for pt
[2023-10-21 13:40] VITALS: PULSE 70; RESP 18; O2SAT 97
[2023-10-21 13:45] VITALS: BP 161/67; PULSE 70; RESP 17; O2SAT 97
[2023-10-21 13:50] VITALS: PULSE 70; RESP 17; O2SAT 95
== END 2023-10-21 16:05 | disposition home or self-care (01) ==
PROVIDERS: Emergency Provider Nurse Practitioner Family; PCP Nurse Practitioner Adult Health
DX: M79.652 Pain in left thigh (principal); M54.6 Pain in thoracic spine; R07.81 Pleurodynia; I25.10 Atherosclerotic heart disease of native coronary artery without angina pectoris; I25.2 Old myocardial infarction; I10 Essential (primary) hypertension; E78.5 Hyperlipidemia, unspecified; J44.9 Chronic obstructive pulmonary disease, unspecified; E11.9 Type 2 diabetes mellitus without complications; I48.0 Paroxysmal atrial fibrillation; Z91.81 History of falling; Z79.01 Long term (current) use of anticoagulants; Z79.84 Long term (current) use of oral hypoglycemic drugs; Z95.0 Presence of cardiac pacemaker
CPT/HCPCS: 71250; 73552; 99284; 70450; 72125

== ENCOUNTER → 2023-11-11 12:54 | Outpatient (BNVA) | payer OTHER, SELFPAY | PROVIDERS: PCP Nurse Practitioner Adult Health; Referring Provider Family Medicine; Visit Provider Psychiatry & Neurology Neurology | DX: R29.6 Repeated falls (principal); R41.3 Other amnesia; R44.1 Visual hallucinations | CPT/HCPCS: 99215 ==

== ENCOUNTER 2023-11-24 04:59 | Outpatient (CLI) | payer OTHER, SELFPAY ==
[2023-11-24 12:17] LABS: Abs Immature Grans 0.02 10^3/uL (0.0-0.06); Absolute Basophil Count 0.07 10^3/uL (0.0-0.2); Absolute Lymphocyte Count 1.11 10^3/uL (1.2-3.4); Absolute Monocyte Count 0.86 10^3/uL (0.1-0.8); Absolute Neutrophil Count 5.34 10^3/uL (1.2-6.7); Basophils % 0.9 %; Eosinophils % 2.6 %; HCT 35.2 % (40.0-50.0); HGB 11.8 g/dL (13.5-17.5); Immature Grans % 0.3 %; Lymphocytes % 14.6 %; MCH 29.4 pg (27.0-33.0); MCHC 33.5 % (32.0-36.0); MCV 88 fL (80-95); MPV 10.3 fL (8.0-11.0); Monocytes % 11.3 %; Neutrophils % 70.3 %; Platelet Count 216 10^3/uL (130-400); RBC 4.02 10^6/uL (4.36-5.78); RDW 14.7 % (11.8-14.1); RDW-SD 47.8 fL
[2023-11-24 13:05] LABS: ALT 23 U/L (16-63); AST 24 U/L (15-37); Albumin 3.9 g/dL (3.4-5.0); Alkaline Phosphatase 150 U/L (46-116); Anion Gap 10.9 mmol/L (3-11); BUN 18 mg/dL (7-18); Bilirubin, Total 1.1 mg/dL (0.2-1.0); CO2 30.1 mmol/L (21.0-32.0); CREATININE 1.1 mg/dL (0.70-1.30); Chloride 104 mmol/L (98-107); Estimated GFR 68.29 (mL/min/1.73m2); Ferritin 74 ng/mL (26-388); Glucose 126 mg/dL (74-106); Magnesium 1.8 mg/dL (1.8-2.4); Sodium 145 mmol/L (136-145); TSH (W/Ref FT4) 1.18 uIU/mL (0.36-3.74); Total Protein 7.1 g/dL (6.4-8.2); Vitamin B12 252 pg/mL (193-986)
[2023-11-24 13:18] LABS: Potassium 2.5 mmol/L (3.5-5.1)
[2023-11-24 16:11] LABS: Iron 39 ug/dL (65-175); Total Iron Binding Capacity 274 ug/dL (250-450); Transferrin Sat 14 % (20-55)
[2023-11-25 10:15] LABS: Syphilis Serology (RPR) Negative (Negative)
== END 2023-11-24 05:00 | disposition home or self-care (01) ==
LOC: LBO 04:59
PROVIDERS: PCP Nurse Practitioner Adult Health; Referring Provider Nurse Practitioner Adult Health; Visit Provider Nurse Practitioner Adult Health
DX: E11.9 Type 2 diabetes mellitus without complications (principal); R41.3 Other amnesia; I10 Essential (primary) hypertension; F32.89 Other specified depressive episodes; N40.0 Benign prostatic hyperplasia without lower urinary tract symptoms; M21.371 Foot drop, right foot
CPT/HCPCS: 36415; 80053; 82607; 82728; 82746; 83540; 83550; 83735; 84443; 85025; 86592

== ENCOUNTER 2023-12-03 14:43 | Outpatient (CLI) | payer OTHER, SELFPAY ==
[2023-12-03 10:52] LABS: Anion Gap 7.7 mmol/L (3-11); BUN 15 mg/dL (7-18); CO2 28.3 mmol/L (21.0-32.0); CREATININE 0.9 mg/dL (0.70-1.30); Calcium 9.3 mg/dL (8.5-10.1); Chloride 107 mmol/L (98-107); Estimated GFR 86.88 (mL/min/1.73m2); Glucose 131 mg/dL (74-106); Potassium 4.2 mmol/L (3.5-5.1); Sodium 143 mmol/L (136-145)
[2023-12-03 11:11] LABS: HCT 38.5 % (40.0-50.0); HGB 12.5 g/dL (13.5-17.5); MCH 29.1 pg (27.0-33.0); MCHC 32.5 % (32.0-36.0); MCV 90 fL (80-95); MPV 9.5 fL (8.0-11.0); Platelet Count 203 10^3/uL (130-400); RBC 4.29 10^6/uL (4.36-5.78); RDW 14.6 % (11.8-14.1); RDW-SD 48.1 fL; WBC 6.94 10^3/uL (4.4-10.8)
== END 2023-12-03 14:44 | disposition home or self-care (01) ==
LOC: LBO 14:44
PROVIDERS: PCP Nurse Practitioner Adult Health; Visit Provider Nurse Practitioner Adult Health
DX: E87.6 Hypokalemia (principal); D64.9 Anemia, unspecified
CPT/HCPCS: 36415; 80048; 85027

== ENCOUNTER 2023-12-03 21:23 | Observation (INO) | payer OTHER, SELFPAY ==
--- NOTE | 2023-12-03 21:30 | DI.CT_ITS ---
Exam(s) CT HEAD WO EXAM: CT HEAD WO CLINICAL HISTORY: Altered mental status. TECHNIQUE: Imaging Protocol: Axial computed tomography images with coronal and sagittal reformatted images were created and reviewed COMPARISON: CT CT HEAD CERVICAL SPINE WO from 10/21/2023 FINDINGS: Ventricles and Extra axial spaces: Normal in size and morphology for the patient's age. Hemorrhage: None. Cerebral parenchyma: Mild atrophy, consistent with the patient's age. Mild white matter changes con sistent with small vessel disease. Midline shift: None. Brainstem/Cerebellum: Normal. Calvarium: Normal. Visualized Paranasal sinuses/Mastoids: Clear. IMPRESSION: No acute abnormality. RADIATION DOSE DELIVERED: Total DLP Total DLP DATA REPOSITORY: All CT scans at this facility are submitted to the National Radiology Data Registry (NRDR) Dose Index Registry (DIR) with the [employer] (ACR). RADIATION OPTIMIZATION: All CT scans at this facility use at least one of these dose optimization te chniques: automated exposure control; mA and/or kV adjustment per patient size (includes targeted exa ms where dose is matched to clinical indication); or iterative reconstruction.
[2023-12-03 21:31] VITALS: BP 156/83; PULSE 80; RESP 16; TEMP 36.6; O2SAT 98
[2023-12-03 21:32] VITALS: BP 156/83; PULSE 70
--- NOTE | 2023-12-03 22:00 | W.ED.GENAD ---
Discharge Plan Discharge Details Chief Complaint: GenMedical Primary Care Provider: Jessie Bose ED Provider: Elisha Nuñez Home Meds and New Rx's Prescriptions: No Action budesonide-formoterol [Symbicort] 160-4.5 mcg/actuation HFA aerosol inhaler 2 puff Inhalation BID Qty: 10.2 11RF atorvastatin 80 mg tablet See Rx Instructions .ROUTE .COMPLEX Qty: 90 3RF Dose Instruction: TAKE ONE TABLET BY MOUTH AT BEDTIME Rx Instructions: TAKE ONE TABLET BY MOUTH AT BEDTIME triamcinolone acetonide 0.1 % cream 1 applic topical DAILY spironolactone 25 mg tablet 12.5 mg PO DAILY Patient Comments: TAKE ONE TABLET BY MOUTH EVERY DAY folic acid 1 mg tablet 1 mg PO DAILY Qty: 90 3RF potassium chloride 20 mEq tablet extended release 40 meq PO DAILY Qty: 20 0RF Rx Instructions: Acute hypokalemia quetiapine 50 mg tablet See Rx Instructions PO QHS Qty: 30 0RF Rx Instructions: Take 50mg by mouth nightly at bedtime for depression; may take 1/2 tab (25mg) daily PRN agitation (DME) AFO Brace (R foot) See Rx Instructions .Route .MEDSUPPLY Qty: 1 0RF Rx Instructions: R AFO brace for foot drop albuterol sulfate [ProAir HFA] 90 mcg/actuation HFA aerosol inhaler 1 - 2 puff Inhalation Q6H PRN Qty: 6.7 2RF Rx Instructions: SOB/wheeze nitroglycerin 0.4 mg tablet, sublingual 0.4 mg SUBLINGUAL DIRECTED Qty: 30 0RF loperamide [Imodium A-D] 2 mg tablet 2 mg PO Q6H PRN (Reason: loose stool) Qty: 90 12RF bupropion HCl 150 mg tablet sustained-release 12 hr 150 mg PO BID Qty: 180 3RF finasteride [Proscar] 5 mg tablet 5 mg PO HS Qty: 90 3RF sotalol 80 mg tablet 80 mg PO BID Qty: 180 1RF Eliquis 5 mg tablet 5 mg PO BID Qty: 60 0RF Rx Instructions: 1-month courtesy supply until can get RX from [facility] cardiology acetaminophen [Tylenol] 325 mg capsule 650 mg PO Q6H PRN (Reason: fever or pain) Qty: 30 0RF cholecalciferol (vitamin D3) [Vitamin D3] 50 mcg (2,000 unit) Capsule 50 mcg PO DAILY latanoprost 0.005 % drops 1 drp ophthalmic (eye) QPM Patient Comments: INSTILL ONE DROP IN EACH EYE EVERY EVENING amlodipine 10 mg tablet 10 mg PO DAILY Rx Instructions: TAKE ONE TABLET BY MOUTH EVERY DAY HPI General Mode of arrival: ambulatory. Date/Time Provider Initiated Documentation: 12/03/23 21:26. Limitations to Documentation: altered mental status. Information obtained by: patient, family and old records reviewed. HPI Narrative: This is a 78-year-old male patient with a previous history of alcohol use disorder recently diagnosed with dementia started on Seroquel 50 mg at bedtime has been compliant with his medication family reports increasing hallucinations and aggression toward his . Paranoid that she is having an affair. Also noted to have periods of confusion where he thought it had snowed out on a hot day he believes his daughter is a young child and not an adult. Family denies any injury or recent illness. He has been eating and drinking been attending provider appointments. He had lab work done earlier today. Related Data Home Medications Medication Instructions Recorded Confirmed acetaminophen 325 mg capsule 650 mg (2 x 325 mg) PO Q6H PRN 05/10/19 12/03/23 (Tylenol) fever or pain #30 caps cholecalciferol (vitamin D3) 50 50 mcg PO DAILY 07/07/21 12/03/23 mcg (2,000 unit) capsule (Vitamin D3) budesonide-formoterol HFA 160 2 puff inhalation BID #10.2 grams 11/03/21 12/03/23 mcg-4.5 mcg/actuation aerosol inhaler (Symbicort) bupropion HCl 150 mg tablet,12 hr 150 mg PO BID #180 tabs 12/24/22 12/03/23 sustained-release finasteride 5 mg tablet (Proscar) 5 mg PO HS #90 tabs 02/08/23 12/03/23 amlodipine 10 mg tablet 10 mg PO DAILY 02/15/23 12/03/23 latanoprost 0.005 % eye drops 1 drp ophthalmic (eye) QPM 07/27/23 12/03/23 atorvastatin 80 mg tablet See Rx Instructions .Route 08/04/23 12/03/23 .COMPLEX #90 tabs albuterol sulfate 90 mcg/actuation 1 - 2 puff inhalation Q6H PRN 08/17/23 12/03/23 aerosol inhaler (ProAir HFA) shortness of breath or wheezing #6.7 grams nitroglycerin 0.4 mg sublingual 0.4 mg sublingual DIRECTED #30 08/17/23 12/03/23 tablet tabs loperamide 2 mg tablet (Imodium 2 mg PO Q6H PRN loose stool #90 10/07/23 12/03/23 A-D) tabs apixaban 5 mg tablet (Eliquis) 5 mg PO BID #60 tabs 10/27/23 12/03/23 sotalol 80 mg tablet 80 mg PO BID #180 tabs 10/27/23 12/03/23 spironolactone 25 mg tablet 12.5 mg PO DAILY 11/11/23 12/03/23 triamcinolone acetonide 0.1 % 1 applic topical DAILY 11/11/23 12/03/23 topical cream AFO Brace (R foot) #1 ea 11/25/23 12/03/23 folic acid 1 mg tablet 1 mg PO DAILY #90 tabs 11/25/23 12/03/23 potassium chloride 20 mEq 40 meq (2 x 20 mEq) PO DAILY #20 11/25/23 12/03/23 tablet,extended release tabs quetiapine 50 mg tablet See Rx Instructions PO QHS #30 tabs 11/25/23 12/03/23 Previous Rx's Medication Instructions Recorded acetaminophen 325 mg capsule 650 mg (2 x 325 mg) PO Q6H PRN 05/10/19 (Tylenol) fever or pain #30 caps budesonide-formoterol HFA 160 2 puff inhalation BID #10.2 grams 11/03/21 mcg-4.5 mcg/actuation aerosol inhaler (Symbicort) bupropion HCl 150 mg tablet,12 hr 150 mg PO BID #180 tabs 12/24/22 sustained-release finasteride 5 mg tablet (Proscar) 5 mg PO HS #90 tabs 02/08/23 atorvastatin 80 mg tablet See Rx Instructions .Route 08/04/23 .COMPLEX #90 tabs albuterol sulfate 90 mcg/actuation 1 - 2 puff inhalation Q6H PRN 08/17/23 aerosol inhaler (ProAir HFA) shortness of breath or wheezing #6.7 grams nitroglycerin 0.4 mg sublingual 0.4 mg sublingual DIRECTED #30 08/17/23 tablet tabs loperamide 2 mg tablet (Imodium 2 mg PO Q6H PRN loose stool #90 10/07/23 A-D) tabs apixaban 5 mg tablet (Eliquis) 5 mg PO BID #60 tabs 10/27/23 sotalol 80 mg tablet 80 mg PO BID #180 tabs 10/27/23 AFO Brace (R foot) #1 ea 11/25/23 folic acid 1 mg tablet 1 mg PO DAILY #90 tabs 11/25/23 potassium chloride 20 mEq 40 meq (2 x 20 mEq) PO DAILY #20 11/25/23 tablet,extended release tabs quetiapine 50 mg tablet See Rx Instructions PO QHS #30 tabs 11/25/23 Allergies Allergy/AdvReac Type Severity Reaction Status Date / Time oxycodone AdvReac Intermediate He goes a Verified 11/11/23 12:57 taina briggsckvanda General Stated Complaint: GenMedical LOREN: 4 Review of Systems All systems reviewed & are unremarkable except as noted in HPI and below Exam Narrative Exam Narrative: Elderly male of stated age in no acute distress sitting on the stretcher head is atraumatic eyes nonicteric noninjected EOMs intact oral mucosas moist facial features are symmetric neck with full range of motion no JVD respirations even and unlabored skin pink warm dry well-perfused abdomen benign moves all extremities equally neurologic he is awake alert oriented to person he is able to tell me he is going to turn 79 in February. No focal deficits. He is unable to tell me why he is here but does mumble that it is their fault while looking at his daughter and . No reports of suicidal ideation but has been physically aggressive with his Course Vital Signs Vital signs: Vital Signs Temperature 36.6 C 12/03/23 21:31 Pulse 80 12/03/23 21:31 Respiratory Rate 16 12/03/23 21:31 Blood Pressure 156/83 H 12/03/23 21:31 Pulse Oximetry 98 12/03/23 21:31 Temperature 36.6 C 12/03/23 21:31 Pulse 80 12/03/23 21:31 Respiratory Rate 16 12/03/23 21:31 Respiratory Effort Normal 12/03/23 21:34 Blood Pressure 156/83 H 12/03/23 21:31 Pulse Oximetry 98 12/03/23 21:31 Oxygen Delivery Method Room Air 12/03/23 21:31 Oxygen Flow Rate 0 12/03/23 21:31 Medical Decision Making 78-year-old with history of dementia recently started on Seroquel presents to the emergency department for hallucinations and aggressive behavior with family members specifically his . Did have lab work done today which was unremarkable including CBC and basic metabolic panel. Also noted recent syphilis serology RPR negative, vitamin B12 252, TSH 1.18. He had eye exam in October 2023 and also saw her block splitter operator in October 2023. His diabetes well-managed with a hemoglobin A1c of 5.9 which is down from 7.1 in July 2023. Will check urinalysis to evaluate for urinary tract infection. No other source of infection suspected as he has had no respiratory symptoms and is oxygenating 98% on room air he is afebrile and hemodynamically stable. No abdominal pain nausea vomiting or diarrhea or to suggest some intra-abdominal infection. Will check urine drug, EtOH level although family denies access to alcohol and he has not had any alcoholic intake for years. Will recheck head CT for completion of the evaluation of altered mental status. Imaging read still pending at time of shift change report and care of patient handed off to Dr. Nuñez for final disposition Medical Records Medical records reviewed: Yes I reviewed the patient's medical records. Lab Data Lab results reviewed: Yes I reviewed the patient's lab results. Quality:SDOH Health Related Social Needs: No Data to Display [facility] All Active Problems (Updated 11/25/23 @ 13:42 by Jessie Bose NP) Folate deficiency (Acute) Falls frequently (Acute) Mild anemia (Acute ~07/2023) Recurrent falls while walking (Acute ~2023) Impaired gait and mobility (Acute ~2023) Hallucinations (Acute) Memory difficulty (Acute ~07/2023) PAF (paroxysmal atrial fibrillation) (Chronic ~07/2023) [facility] Cardio-07/20/23 Pacemaker (Acute ~03/2023) [facility] 03/23/2023 Rotator cuff arthropathy of left shoulder (Acute) subacromial corticosteroid injection 10/28/22 Primary hypertension (Chronic) BPH (benign prostatic hyperplasia) (Chronic) RX Finasteride Glaucoma (Chronic) 09/05/19 [place] Depression (Chronic) Long-term RX Wellbutrin Diverticulosis (Chronic) 2018 colonoscopy Sinus node dysfunction (Chronic) [facility] Cardiolgy; stay off of BB Obesity (Chronic) Tubular adenoma (Chronic 10/04/08) Colonoscopy 10/04/15 & repeat 2019 (13!) Diabetes type 2, controlled (Chronic) Dx'ed in COPD (chronic obstructive pulmonary disease) (Acute) Coronary artery disease (Chronic) [facility] Pulmonology Technician [place] 1998 with angina; cath in 1998 1-vessel dis Obstructive sleep apnea (Chronic) h/o CPAP; clausterphobic with masks so stopped using; then 100# weight loss; referred in 11/2019 but he declined Medical History Alcoholism in remission Calf swelling Leg pain, right Pelvic hematoma in male Swollen penis SOB (shortness of breath) on exertion Myocardial infarction X2 1997, 1998 Small bowel obstruction [facility] 05/2018; 02/2023 Normochromic normocytic anemia Bradycardia, sinus 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 traffic monitor specialist Rupture of right biceps tendon PT Cataracts, bilateral 09/05/19 [place] OS>>OD Epidermal inclusion cyst Lipoma of head Removed 04/2019 [place] Anxiety and depression Pancreatitis [facility] 05/2018 (mild) Hyperlipidemia Atorvastatin Surgical History History of bilateral inguinal hernia repair Postoperative state S/P bilateral inguinal hernia repair, follow-up exam S/P cardiac pacemaker procedure (~03/2023) S/P colonoscopy (~05/02/19) 09/2015- [place]- Tubular adenomas x2 05/2019--Brain x13 tubular adenomas Total knee replacement status R 12/11/2013 L S/P shoulder surgery S/P coronary artery stent placement 04/30/19 per pt he does not have a stent. 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 Pets and animals: Yes Sexually active: Yes Do you think of yourself as: straight/heterosexual Current gender identity: male What is your relationship status?: living with partner How often do you get together with friends or relatives?: twice per week Panel score (0-1 are the most socially isolated patients): 1 What type of physical activity do you participate in: walking Duration: > 90 minutes/day Frequency: 3-4 times per week Desirae/Latter Day: Zoroastrian Special desirae needs: No Seatbelt use: always Drive intox or ride w/intox limo driver: No Do you feel safe at home: Yes Do you feel safe in your relationship?: Yes Additional Social history: answering for pt Sign Out Sign Out Data: Sign Out Comment: Demented elderly male having hallucinations visual, threatening , medically being screened and then will have psychiatric evaluation. Case was discussed with hospitalist Last updated by Summer Spangler NP at 12/03/23 22:25
[2023-12-03] MEDS: QUEtiapine 50 MG TAB PO (22:25)
--- NOTE | 2023-12-03 22:29 | ED.PROG_ITS ---
Date of service: 12/03/23 Time of Service: 22:29 Medical Decision Making This patient was signed out to me. Please see previous notes for H&P and initial eval. In brief, 78yo M with dementia presenting due to family concern for increased agitated, threatening behavior; they do not feel safe at home with him and will not take him back home (lives with his elderly ). PCP is working up and treating for dementia, started on seroquel. Outpatient labs recently were reassuring. Family not willing to take him home d/t concerns for violence. Medical workup planned in the ED includes head CT, UA, UDS, and ethyl alcohol level. If medical workup negative, plan for MH evaluation. If this is also negative and no safe discharge plan is able to be identified, may need to come in to the hospital pending placement. Head CT independently reviewed; no intracranial mass or large bleed on my view, agree with radiology read below. UA not suggestive of infection. UDS neg for drugs of abuse. ETOH neg [facility] evaluated patient; unable to fully evaluate due to patient's memory issues. Discussed with hospitalist Dr. Lassiter and patient accepted. Awaiting orders and transfer to the floor. Imaging Data Radiologic Study: Imaging: CT Scan Radiologist's impression: IMPRESSION: Cerebral atrophy and probable mild underlying microvascular ischemic changes with no evidence of acute transcortical infarction, recent intracranial hemorrhage or hydrocephalus. No acute intracranial process is detected. Lab Data Lab results reviewed: Yes I reviewed the patient's lab results. Labs: Laboratory Tests Range/Units 12/03/23 12/04/23 22:34 00:10 Urine Color (Yellow) Yellow Urine Clarity (Clear) Clear Urine pH (5-8) 6.5 Ur Specific [place] (1.005-1.025) 1.015 Urine Protein (Neg-Trace) mg/dL Negative Urine Ketones (Negative) mg/dL Negative Urine Blood (Negative) Negative Urine Nitrite (Negative) Negative Urine Bilirubin (Negative) Negative Urine Urobilinogen (Up to 0.2) mg/dL 0.2 Ur Leukocyte Esterase (Negative) Negative Urine Glucose (Negative) mg/dL Negative Urine Opiates Screen (Negative) Negative Urine Methadone Screen (Negative) Negative Ur Barbiturates Screen (Negative) Negative Ur Tricyclics Screen (Negative) Positive A Ur Amphetamines Screen (Negative) Negative U Benzodiazepines Scrn (Negative) Negative Urine Cocaine Screen (Negative) Negative Ur THC Screen (Negative) Negative Ethyl Alcohol (<10) mg/dL < 3.0 Quality:SDOH Health Related Social Needs: No Data to Display Sign Out Sign Out Data: Sign Out Comment: Demented elderly male having hallucinations visual, threatening , medically being screened and then will have psychiatric evaluation. Case was discussed with hospitalist Last updated by Summer Spangler NP at 12/03/23 22:25 Discharge Plan Discharge Details Chief Complaint: GenMedical Primary Care Provider: Jessie Bose ED Provider: Elisha Nuñez Home Meds and New Rx's Prescriptions: No Action budesonide-formoterol [Symbicort] 160-4.5 mcg/actuation HFA aerosol inhaler 2 puff Inhalation BID Qty: 10.2 11RF atorvastatin 80 mg tablet See Rx Instructions .ROUTE .COMPLEX Qty: 90 3RF Dose Instruction: TAKE ONE TABLET BY MOUTH AT BEDTIME Rx Instructions: TAKE ONE TABLET BY MOUTH AT BEDTIME triamcinolone acetonide 0.1 % cream 1 applic topical DAILY spironolactone 25 mg tablet 12.5 mg PO DAILY Patient Comments: TAKE ONE TABLET BY MOUTH EVERY DAY folic acid 1 mg tablet 1 mg PO DAILY Qty: 90 3RF potassium chloride 20 mEq tablet extended release 40 meq PO DAILY Qty: 20 0RF Rx Instructions: Acute hypokalemia quetiapine 50 mg tablet See Rx Instructions PO QHS Qty: 30 0RF Rx Instructions: Take 50mg by mouth nightly at bedtime for depression; may take 1/2 tab (25mg) daily PRN agitation (DME) AFO Brace (R foot) See Rx Instructions .Route .MEDSUPPLY Qty: 1 0RF Rx Instructions: R AFO brace for foot drop albuterol sulfate [ProAir HFA] 90 mcg/actuation HFA aerosol inhaler 1 - 2 puff Inhalation Q6H PRN Qty: 6.7 2RF Rx Instructions: SOB/wheeze nitroglycerin 0.4 mg tablet, sublingual 0.4 mg SUBLINGUAL DIRECTED Qty: 30 0RF loperamide [Imodium A-D] 2 mg tablet 2 mg PO Q6H PRN (Reason: loose stool) Qty: 90 12RF bupropion HCl 150 mg tablet sustained-release 12 hr 150 mg PO BID Qty: 180 3RF finasteride [Proscar] 5 mg tablet 5 mg PO HS Qty: 90 3RF sotalol 80 mg tablet 80 mg PO BID Qty: 180 1RF Eliquis 5 mg tablet 5 mg PO BID Qty: 60 0RF Rx Instructions: 1-month courtesy supply until can get RX from [facility] cardiology acetaminophen [Tylenol] 325 mg capsule 650 mg PO Q6H PRN (Reason: fever or pain) Qty: 30 0RF cholecalciferol (vitamin D3) [Vitamin D3] 50 mcg (2,000 unit) Capsule 50 mcg PO DAILY latanoprost 0.005 % drops 1 drp ophthalmic (eye) QPM Patient Comments: INSTILL ONE DROP IN EACH EYE EVERY EVENING amlodipine 10 mg tablet 10 mg PO DAILY Rx Instructions: TAKE ONE TABLET BY MOUTH EVERY DAY
--- NOTE | 2023-12-03 22:50 | DI.VRAD_ITS ---
PROCEDURE INFORMATION: Exam: CT Head Without Contrast Exam date and time: 12/03/2023 10:00 PM Age: 78 years old Clinical indication: Altered mental status/memory loss TECHNIQUE: Imaging protocol: Computed tomography of the head without contrast. COMPARISON: CT HEAD CERVICAL SPINE WO 10/21/2023 1:57 PM FINDINGS: Brain: Prominence of cerebral sulci reflects diffuse cerebral atrophy. A few poorly marginated hypodensities scattered throughout the deep and periventricular white matter of both cerebral hemispheres suggests mild underlying microvascular ischemic changes. Brainstem and cerebellum are unremarkable and there is no evidence of acute transcortical infarction or recent intracranial hemorrhage. Cerebral ventricles: Mild dilatation of the 3rd and lateral ventricles is commensurate with the degree of cerebral atrophy. Paranasal sinuses: Grossly clear throughout. Mastoid air cells: Grossly clear bilaterally. Probable cerumen seen in the left external auditory canal. Bones: Bony calvarium and skull base are intact and no acute fractures are detected. Soft tissues: Unremarkable. IMPRESSION: Cerebral atrophy and probable mild underlying microvascular ischemic changes with no evidence of acute transcortical infarction, recent intracranial hemorrhage or hydrocephalus. No acute intracranial process is detected. Dictated and Authenticated by: Alton Grace MD. Ordering:RODRIGUE Wheeler MD
[2023-12-03] MEDS: Normal Saline 1,000 ML 1000 ML IV (23:10)
[2023-12-03 23:19] LABS: ETHANOL BLOOD < 3.0 mg/dL (<10)
[2023-12-04] VITALS (9 sets, daily range): BP systolic 127–168; BP diastolic 74–108; PULSE 70–81; RESP 14–18; TEMP 36–36.9; O2SAT 96–98
[2023-12-04 00:20] LABS: Bilirubin Negative (Negative); Blood Negative (Negative); Clarity Clear (Clear); Glucose Negative (Negative); Ketones Negative (Negative); Leukocyte Esterase Negative (Negative); Nitrite Negative (Negative); Specific Gravity 1.015 (1.005-1.025); Urobilinogen 0.2 mg/dL (Up to 0.2); pH 6.5 (5-8)
[2023-12-04 00:37] LABS: *AMPHETAMINES SCREEN URINE Negative (Negative); *BARBITURATES SCREEN URINE Negative (Negative); *BENZODIAZEPINES SCREEN URINE Negative (Negative); Cannabinoids THC Negative (Negative); Cocaine Screen,Urine Negative (Negative); METHADONE URINE SCREEN Negative (Negative); OPIATES URINE SCREEN Negative (Negative)
[2023-12-04 00:40] LABS: Tricyclic Antidepressants Positive (Negative)
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
[2023-12-04 02:06] LABS: HCT 35.4 % (40.0-50.0); HGB 11.6 g/dL (13.5-17.5); MCH 29.4 pg (27.0-33.0); MCHC 32.8 % (32.0-36.0); MCV 90 fL (80-95); MPV 9.4 fL (8.0-11.0); Platelet Count 178 10^3/uL (130-400); RBC 3.95 10^6/uL (4.36-5.78); RDW 14.6 % (11.8-14.1); RDW-SD 48.7 fL; WBC 5.38 10^3/uL (4.4-10.8)
[2023-12-04 02:22] LABS: ALT 24 U/L (16-63); AST 19 U/L (15-37); Albumin 3.4 g/dL (3.4-5.0); Alkaline Phosphatase 120 U/L (46-116); Anion Gap 8.8 mmol/L (3-11); BUN 13 mg/dL (7-18); Bilirubin, Total 1.2 mg/dL (0.2-1.0); CO2 27.2 mmol/L (21.0-32.0); CREATININE 0.9 mg/dL (0.70-1.30); Calcium 8.7 mg/dL (8.5-10.1); Chloride 109 mmol/L (98-107); Estimated GFR 86.88 (mL/min/1.73m2); Glucose 110 mg/dL (74-106); Magnesium 1.9 mg/dL (1.8-2.4); Potassium 3.9 mmol/L (3.5-5.1); Sodium 145 mmol/L (136-145); Total Protein 6.5 g/dL (6.4-8.2)
--- NOTE | 2023-12-04 03:00 | RESPIRATORY ---
RT spoke with Pt. for [facility]J. Pt. states that he currently does not use CPAP machine. Advised that he quitted a couple year ago and been sleeping without complications, but didn't specify the reason at this time, found in chart that pt. has had denied CPAP due to claustrophobic with mask on 2021.
[2023-12-04 06:34] LABS: HGB 12.5 g/dL (13.5-17.5); MCH 29.1 pg (27.0-33.0); MCHC 32.9 % (32.0-36.0); MCV 88 fL (80-95); MPV 9.9 fL (8.0-11.0); Platelet Count 194 10^3/uL (130-400); RDW 14.8 % (11.8-14.1); RDW-SD 47.6 fL; WBC 5.36 10^3/uL (4.4-10.8)
[2023-12-04 06:45] LABS: INR 1.2 (0.9-1.1); Prothrombin Time 11.5 sec (9.1-11.1)
[2023-12-04 07:05] LABS: ALT 22 U/L (16-63); AST 16 U/L (15-37); Albumin 3.4 g/dL (3.4-5.0); Alkaline Phosphatase 115 U/L (46-116); Anion Gap 8.6 mmol/L (3-11); BUN 12 mg/dL (7-18); Bilirubin, Total 1.1 mg/dL (0.2-1.0); CO2 27.4 mmol/L (21.0-32.0); CREATININE 0.9 mg/dL (0.70-1.30); Calcium 8.8 mg/dL (8.5-10.1); Chloride 108 mmol/L (98-107); Estimated GFR 86.88 (mL/min/1.73m2); Glucose 96 mg/dL (74-106); Magnesium 1.9 mg/dL (1.8-2.4); Potassium 3.6 mmol/L (3.5-5.1); Sodium 144 mmol/L (136-145); Total Protein 6.5 g/dL (6.4-8.2)
[2023-12-04 07:08] LABS: TSH (W/Ref FT4) 1.09 uIU/mL (0.36-3.74); Troponin I < 50 ng/L (< or =60)
[2023-12-04] MEDS: Spironolactone 25 MG TAB 12.5 MG PO (08:05)
[2023-12-04] MEDS: Potassium Chloride 20 MEQ TABCR 40 MEQ PO (08:05)
[2023-12-04] MEDS: Cholecalciferol (Vitamin D3) 1,000 UNIT TAB 2000 UNITS PO (08:06)
[2023-12-04] MEDS: amLODIPine 10 MG TAB PO (08:07)
[2023-12-04] MEDS: buPROPion-CR 150 MG TABCR PO ×2 (08:07→19:41)
[2023-12-04] MEDS: Apixaban 5 MG TAB PO ×2 (08:08→19:42)
[2023-12-04] MEDS: Folic Acid 1 MG TAB PO (08:08)
[2023-12-04] MEDS: Normal Saline Flush 10 ML SYR IVP ×2 (08:11→19:43)
[2023-12-04] MEDS: Budesonide/Formoterol 160/4.5 6 GM 60 PUFF INH IH ×2 (08:20→20:26)
--- NOTE | 2023-12-04 09:20 | W.PM.PROGNOT ---
Date of Service Date of service: 12/04/23 Time of Service: 09:20 Assessment and Plan Assessment and plan (1) Dementia, unspecified, without behavioral disturbance: Status: Chronic Assessment and plan: Psychiatric consult initiated in addition to plan described in the admitting physician note Discussed with Dr. Silva (2) Delirium due to another medical condition: Status: Acute Assessment and plan: As above Subjective Subjective Patient reports: no new complaints, feels better (does not know why derivatives trader were called on him at home), tolerating liquids well, tolerating a regular diet and voiding w/o difficulty; denies still having pain, nausea, vomiting, shortness of breath or fever Exam Narrative Exam Narrative: In chair, pleasant when seen w/o acute distress Objective Last Vital Signs Temp 36.7 C 12/04/23 07:26 Pulse 75 12/04/23 07:26 Resp 16 12/04/23 07:26 BP 160/91 H 12/04/23 07:26 Pulse Ox 96 12/04/23 07:26 Laboratory Results - last 24 hr 12/03/23 12/04/23 12/04/23 22:34 00:10 02:00 WBC 5.38 RBC 3.95 L Hgb 11.6 L Hct 35.4 L MCV 90 MCH 29.4 MCHC 32.8 RDW 14.6 H Plt Count 178 MPV 9.4 PT INR Sodium 145 Potassium 3.9 Chloride 109 H Carbon Dioxide 27.2 Anion Gap 8.8 BUN 13 Creatinine 0.9 Est GFR (CKD-EPI 2020) 86.88 Glucose 110 H Calcium 8.7 Magnesium 1.9 Total Bilirubin 1.2 H AST 19 ALT 24 Alkaline Phosphatase 120 H Troponin I Total Protein 6.5 Albumin 3.4 TSH Urine Color Yellow Urine Clarity Clear Urine pH 6.5 Ur Specific [place] 1.015 Urine Protein Negative Urine Ketones Negative Urine Blood Negative Urine Nitrite Negative Urine Bilirubin Negative Urine Urobilinogen 0.2 Ur Leukocyte Esterase Negative Urine Glucose Negative Urine Opiates Screen Negative Urine Methadone Screen Negative Ur Barbiturates Screen Negative Ur Tricyclics Screen Positive A Ur Amphetamines Screen Negative U Benzodiazepines Scrn Negative Urine Cocaine Screen Negative Ur THC Screen Negative Ethyl Alcohol < 3.0 12/04/23 06:20 WBC 5.36 RBC 4.30 L Hgb 12.5 L Hct 38.0 L MCV 88 MCH 29.1 MCHC 32.9 RDW 14.8 H Plt Count 194 MPV 9.9 PT 11.5 H INR 1.2 H Sodium 144 Potassium 3.6 Chloride 108 H Carbon Dioxide 27.4 Anion Gap 8.6 BUN 12 Creatinine 0.9 Est GFR (CKD-EPI 2020) 86.88 Glucose 96 Calcium 8.8 Magnesium 1.9 Total Bilirubin 1.1 H AST 16 ALT 22 Alkaline Phosphatase 115 Troponin I < 50 Total Protein 6.5 Albumin 3.4 TSH 1.09 Urine Color Urine Clarity Urine pH Ur Specific [place] Urine Protein Urine Ketones Urine Blood Urine Nitrite Urine Bilirubin Urine Urobilinogen Ur Leukocyte Esterase Urine Glucose Urine Opiates Screen Urine Methadone Screen Ur Barbiturates Screen Ur Tricyclics Screen Ur Amphetamines Screen U Benzodiazepines Scrn Urine Cocaine Screen Ur THC Screen Ethyl Alcohol Time Spent with Patient Time Spent with Patient: 25-34 minutes Time was spent: preparing to see the patient(eg.review tests), ordering medications,tests, procedures, referring, communicating with other health career development coordinator, counseling the patient and care coordination
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
--- NOTE | 2023-12-04 11:10 | NUR.NOTE ---
Nursing Note:Patient has made statements today such as I did something bad didn't I?, I just wanted to get laid, I was seeing ghosts but thats stupid because theres no such thing! etc. He is oriented to person and occasionally to place but not to time. He often gets confused in conversation, stops speaking mid sentence and stares off into space.
[2023-12-04] MEDS: Acetaminophen 325 MG TAB PO (12:51)
[2023-12-04] MEDS: QUEtiapine 25 MG TAB PO (12:51)
--- NOTE | 2023-12-04 12:54 | PDOC.CMIN ---
Care Management Initial Assmt Initial Assessment Reason for Hospitalization: Dementia with Behavioral disturbance Functional Status/Living Situation Patient Presentation: Appropriate in behavior since admission. Ambulates independently. Oriented to self and place. CM attempted to call Corona Pickens's ; voicemail box not set up. CM met with Nelia and Corona, both sitting up in chairs-visiting in the room. Nelia advised her hope that medication recommendations and changes could support Don's stabilization. She stated her plan was for Don to be able to return home and was agreeable to referrals to [facility] to support further observation and medication adjustments. CM provided patient education central to terminal operations supervisor care, disease progression. Nelia reports anticipating further planning with her daughters. CM provided terminal operations supervisor Medicaid application. Town of Residence: [facility] Resides with: Spouse Significant Other/Family: Local Employment Status: Retired Instrumental Activities of Daily Living (ADLs): Requires support (Dementia ) Medications Medication Management: Issues/Barriers with Other (Requires support related to Dementia ) Advance Directives Advance Directives: Do you have an Advance Directive: Y 11/07/21 14:38 AD On File at [facility]: Y 11/07/21 14:38 Date Asked 11/19/23 11/19/23 17:28 AD Date Reviewed 12/03/23 12/03/23 21:31 COLST On File at [facility] No 12/03/23 21:31 COLST Date Scanned Comment: HCA: Nelia, alternate is Elana carmen Code Status Resuscitation Status Full Code Insurance Coverage/Financial Issues Insurance: [employer] ACO Member: No Care Team Visit Care Team Role Provider Type Jessie Bose NP Primary Care Provider NURSE PRACTITIONER InPatient [facility] Other Providers OTHER Elisha Nuñez MD Emergency Provider [facility] STAFF PHYSICIAN Satnam Lassiter Admit Provider NON-[facility] STAFF PHYSICIAN Attending Provider Discharge Potential Discharge Needs: Consult Consult Services Needed: Other (Tele-Psych) Anticipated Barriers to Discharge: Medical Status (Behavioral presentation may delay discharge planning. ) Patient/Family Education Needs: Review discharge instructions, discuss Ask Me Three Plan: Referrals sent to [facility] for Geriatric Psych stabilization with medication recommendations. Tele-psych order requested. CM continues to follow. PFSH All Active Problems (Updated 12/04/23 @ 06:00 by Satnam Bourgeois) Dementia, unspecified, without behavioral disturbance (Chronic) Delirium due to another medical condition (Acute) Folate deficiency (Acute) Falls frequently (Acute) Mild anemia (Acute ~07/2023) Recurrent falls while walking (Acute ~2023) Impaired gait and mobility (Acute ~2023) Hallucinations (Acute) Memory difficulty (Acute ~07/2023) PAF (paroxysmal atrial fibrillation) (Chronic ~07/2023) [facility] Cardio-07/20/23 Pacemaker (Acute ~03/2023) [facility] 03/23/2023 Rotator cuff arthropathy of left shoulder (Acute) subacromial corticosteroid injection 10/28/22 Primary hypertension (Chronic) BPH (benign prostatic hyperplasia) (Chronic) RX Finasteride Glaucoma (Chronic) 09/05/19 [place] Depression (Chronic) Long-term RX Wellbutrin Diverticulosis (Chronic) 2018 colonoscopy Sinus node dysfunction (Chronic) [facility] Cardiolgy; stay off of BB Obesity (Chronic) Tubular adenoma (Chronic 10/04/08) Colonoscopy 10/04/15 & repeat 2019 (13!) Diabetes type 2, controlled (Chronic) Dx'ed in COPD (chronic obstructive pulmonary disease) (Acute) Coronary artery disease (Chronic) [facility] 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; cath in 1998 1-vessel dis Obstructive sleep apnea (Chronic) h/o CPAP; clausterphobic with masks so stopped using; then 100# weight loss; referred in 11/2019 but he declined Medical History Alcoholism in remission Calf swelling Leg pain, right Pelvic hematoma in male Swollen penis SOB (shortness of breath) on exertion Myocardial infarction X2 1997, 1998 Small bowel obstruction [facility] 05/2018; 02/2023 Normochromic normocytic anemia Bradycardia, sinus 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 air sampling and monitoring Rupture of right biceps tendon PT Cataracts, bilateral 09/05/19 [place] OS>>OD Epidermal inclusion cyst Lipoma of head Removed 04/2019 [place] Anxiety and depression Pancreatitis [facility] 05/2018 (mild) Hyperlipidemia Atorvastatin Surgical History History of bilateral inguinal hernia repair Postoperative state S/P bilateral inguinal hernia repair, follow-up exam S/P cardiac pacemaker procedure (~03/2023) S/P colonoscopy (~05/02/19) 09/2015- [place]- Tubular adenomas x2 05/2019--[place] x13 tubular adenomas Total knee replacement status R 12/11/2013 L S/P shoulder surgery S/P coronary artery stent placement 04/30/19 per pt he does not have a stent. 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 Pets and animals: Yes Sexually active: Yes Do you think of yourself as: straight/heterosexual Current gender identity: male What is your relationship status?: living with partner How often do you get together with friends or relatives?: twice per week Panel score (0-1 are the most socially isolated patients): 1 What type of physical activity do you participate in: walking Duration: > 90 minutes/day Frequency: 3-4 times per week Desirae/Mormon: Episcopal Special desirae needs: No Seatbelt use: always Drive intox or ride w/intox lumber driver: No Do you feel safe at home: Yes Do you feel safe in your relationship?: Yes Additional Social history: answering for pt SDOH(Care Management) Screening Will the Patient Participate in the Screening?: Unable to obtain Do you worry about having a steady place to live?: no Interventions Referrals and interventions: [facility] Psych referrals, Tele Psych consult Referral for Financial Health Care Support: LTM Anticipated HH Services Anticipated HH Services at Discharge [facility] Resumption, RN. Following Provider: Jessie Bose.
[2023-12-04] MEDS: Latanoprost 0.005% 2.5 ML BTL OP (19:40)
[2023-12-04] MEDS: Atorvastatin 40 MG TAB 80 MG PO (19:41)
[2023-12-04] MEDS: QUEtiapine 50 MG TAB PO (19:42)
[2023-12-04] MEDS: Finasteride 5 MG TAB PO (19:42)
[2023-12-05 06:14] VITALS: BP 141/87; PULSE 73; RESP 18; TEMP 36.6; O2SAT 97
[2023-12-05 07:32] VITALS: BP 156/92; PULSE 70; RESP 18; TEMP 36.4; O2SAT 96
[2023-12-05] MEDS: Spironolactone 25 MG TAB 12.5 MG PO (07:37)
[2023-12-05] MEDS: Apixaban 5 MG TAB PO (07:37)
[2023-12-05] MEDS: buPROPion-CR 150 MG TABCR PO (07:37)
[2023-12-05] MEDS: Cholecalciferol (Vitamin D3) 1,000 UNIT TAB 2000 UNITS PO (07:37)
[2023-12-05] MEDS: Folic Acid 1 MG TAB PO (07:37)
[2023-12-05] MEDS: amLODIPine 10 MG TAB PO (07:37)
[2023-12-05] MEDS: Potassium Chloride 20 MEQ TABCR 40 MEQ PO (07:38)
[2023-12-05] MEDS: Normal Saline Flush 10 ML SYR IVP (07:38)
[2023-12-05] MEDS: Budesonide/Formoterol 160/4.5 6 GM 60 PUFF INH IH (08:47)
--- NOTE | 2023-12-05 09:24 | PT.INTREAT ---
PT Notes Visit Reasons: Dementia with behavioral disturbances, Delirium Date: 12/05/2023 PRECAUTIONS: Fall. Standard. Activity as tolerated. SUBJECTIVE: Pt on the EOB when approached for therapy this morning, pt speaking with on the phone and was able to transfer from EOB to the recliner when requested. pt initially apprehensive and argumentative but was able settle down after a few minutes conversing with this therapist. pt eventually agreed to participating with therapy session. OBJECTIVE: ? PAIN: none reported VITALS: ? monitored by nursing Therapeutic Activities 45344: Direct one-on-one instruction in dynamic activities to improve functional performance. ?? BED MOBILITY/TRANSFERS? Rolling L/R: independent Supine-sit: ?independent ? Sit-supine: ?independent? Sit-stand: ? independent ? Stand-sit: ??independent ? Bed-Chair:? ?independent ? Chair-bed: independent Provided skilled cues and instruction on performance and technique throughout. Gait Training 55572: Direct one-on-one instruction and skilled instruction in: Employing an assistive device Modified weight-bearing status Movement sequencing Turning and movement with proper form Provided verbal cues for equipment management and technique Provided instruction in gait pattern Patient education regarding pacing and breathing techniques to maximize activity tolerance? GAIT? Assistive Device: ?? FWW ? Weight bearing: FWB Assist: ? independent ? Distance:?? 300' ? Deviation: ? unremarkable? STAIRS:? ? 1handrail step through 20x2 6, 20x3 4? ?Supervision ? ASSESSMENT:? Pt had no LOB during the duration of session, pt can be a little bit impulsive but is easy enough to redirect if necessary. PLAN: Continue with balance training, global strengthening and general conditioning for improved safety, mobility and activity tolerance until pt is ready for DC. TREATMENT CODE/TIME: [id number] 30mins (8:50-9:20am)
--- NOTE | 2023-12-05 10:12 | W.TELEPSYCH ---
Date of service: 12/05/23 Time of Service: 10:00 Summary Note Name: Corona Romo?: 1945 Date?and?Time: 12/05/2023 8:13:48 AM Location of the patient: [facility] IP?Location of the doctor: [facility] Length of consult: 60 min This evaluation was conducted via video telepsychiatry with the assistance of onsite staff Reason for consult: Capacity for Discharge Planning Requested by: Nurse Joshua History of Present Illness: 78 yo male Hx dementia, paroxysmal atrial fibrillation, s/p pacemaker, HTN, glaucoma, anxiety, depression, T2DM, CAD, RJ, hyperlipidemia presented with hallucinations and episodic agitation toward family and admitted for same on 12/04/23. Psych consult for capacity for discharge planning. Permission obtained from patient to perform telehealth with family present. On assessment, patient is oriented to self, year, and location but not to month/date. Patient reports he's in the hospital because I got little bit ugly with my family. On query for additional details, patient reports I had a small hammer and I hit a board because I had unwelcomed people who stay in my garage and I told them if you won't leave I'll sic the bulldog on you and those guys left. I pulled the shotgun. When queried regarding how that relates to his statement about got little bit ugly with my family, patient replied she be alright and unable to provide additional details. Patient additionally expressed It's not safe at home and relates concern regarding I was coming home and a yordan pulled out and they want to get out and kick my ass. Reports nothing happened from that episode but believes that events occurred is related to President Mar[place] and occurred after Marivel sent the refugee home. Patient denies memory issues, but this is not validated by family (family expressed concerns related to memory. On discussion related to discharge planning, patient appears able to express choice but unable to express appreciation, understanding, rationale/reasoning for choice. Per , patient has been forgetting things, seeing things, and was threatening. Patient denies current SI/HI. Reports depression/anxiety x 3 months. Denies trigger but identified financial stressors related to SSI. Eating ok. Sleeps 10 hours (interrupted sleep every 2 hours because RJ - wears CPAP). Some decrease in energy/focus. T: 36.4 HR 70 R 18 BP 156/92 sat 96% BMI 25.8 Labs: WBC 5.36 Na 144 BUN/Cr 12/0.9 eGFR 86.88 glu 96 A1C 5.9 AST/ALT 16/22 LDL 59 trig 54 chol 177 HDL 80 TSH 1.09 UA LE/nitrite negative 0 WBC/hpf UDS +tricyclics EtOH negative syphilis serology negative CT head: cerebral atrophy and probable mild underlying microvascular ischemic changes with no evidence of acute transcortical infarction, recent intracranial hemorrhage or hydrocephalus. No acute intracranial process is detected. Collateral Contacted: Yes?Collateral name:?Nelia Lewis?Collateral phone number:?[phone] Ext. [phone], [phone]?Collateral relationship to the patient:?NurseJohnny Sleep issues?: Yes?Sleep Quantity:?Sleep Quality: Psychiatric History/Treatment History:? Past diagnoses: dementia, anxiety, depression Hospitalizations: Yes?Description:?9 years ago - volent behavior related to counselor Current Treatment:Yes?Medication management:?Yes?Medications:?Wellbutrin and quetiapine?Therapy: Suicide Assessment: PSS-3: 1) Over the past 2 weeks have you felt down, depressed or hopeless??Yes? 2) Over the past 2 weeks have you had thoughts of killing yourself??No 3) Have you ever in your life attempted to kill yourself??No Within the past 6 months??? [facility]-based Safety Assessment: Risk Factors Stressors: Memory issue, financial stressor Attempts/Self-injury: No Impulsivity:Yes?Description: Drug/Alcohol History:Yes?Description:?discontinued in 1999 Trauma History:No Access to firearms:Yes?Description:?Shotgun HI/Violence/Property destruction:Yes?Description: Legal: No Family Psych History:Yes?Description:?brother - alcohol abuse, father - substance abuse ? Family History of suicide:No Protective Factors:? Can handle stress well??No ? Restorationism??Yes ? External: ? Social supports/ Therapeutic relationships: Yes?Description:?Family ? Relationship history: ? Living situation: Lives with spouse ? Employment: No ? Education: 7th grade ? Responsibility to family/children/work: Yes?Description:?5 children ? Future orientation:No Health History: ? Medical History: dementia, paroxysmal atrial fibrillation, s/p pacemaker, HTN, glaucoma, anxiety, depression, T2DM, CAD, RJ, hyperlipidemia ? Medications & Freq: bupropion 150mg bid, quetiapine 50mg qHS ? Allergies: oxycodone Mental Status Exam: Appearance and Attire:?Good eye contact Psychomotor agitation:?No abnormality Attitude and behavior:?Suspicious, Some confusion and tangential thought present Speech:?No abnormality, Mood:?Depressed, Anxious Affect:?Irritable Thought process:?Circumstantial, Tangential, Vague Thought content:?No suicidal ideation, No homicidal ideation, Paranoia, Delusions, Denies current SI/HI. Noted paranoia related to people wanting to kick my ass related to President Marivel Perception:?Visual hallucinations, Noted unwelcomed people in the garage to which patient reports taking hammer/shotgun to drive them away ( reports no one in garage). Intel:?Average Abstract:?Some confusion and tangential thought present Language:?Some confusion and tangential thought present Orientation:?Oriented to person, Oriented to place, Disoriented to time, Disoriented to situation, Oriented to self and year but not month/date nor situation Sense:?Normal Knowledge:?Appropriate for education and socioeconomic status Memory:?Some confusion and tangential thought present - per , difficulty with memory Insight:?Lack of awareness of problems Judgement:?Impaired in interactions with others, Impaired in response and decision making, Impaired in responses to current situation and behavior Gait:?Not assessed Impression/Risk Assessment: Current Suicide Risk Elevated??No ? Current Violence Risk Elevated??Yes ??Description:?Patient with dementia and confusion with intermittent acting upon paranoia/delusion/hallucination Issues with ability to care for self??Yes ??Description:?Patient with dementia and confusion Summary: 78 yo male Hx dementia, paroxysmal atrial fibrillation, s/p pacemaker, HTN, glaucoma, anxiety, depression, T2DM, CAD, RJ, hyperlipidemia presented with hallucinations and episodic agitation toward family and admitted for same on 12/04/23. At this time, patient is clinically able to communicate a choice but does not appear to clinically have understanding and appreciation of risks/benefits of choices nor able to provide rationale/reason for the choice. Clinically, patient does not at this time have the capacity for discharge planning decision. All questions/concerns addressed with patient, family, and hospital staff. Optimization of other medical issues per primary team. Diagnosis: F03.91 Unspecified dementia with behavioral disturbance CPT Codes: 09723 - Psychiatric Diagnostic Evaluation with Medical Services Treatment Plan:? General: 78 yo male Hx dementia, paroxysmal atrial fibrillation, s/p pacemaker, HTN, glaucoma, anxiety, depression, T2DM, CAD, RJ, hyperlipidemia presented with hallucinations and episodic agitation toward family and admitted for same on 12/04/23. At this time, patient is clinically able to communicate a choice but does not appear to clinically have understanding and appreciation of risks/benefits of choices nor able to provide rationale/reason for the choice. Clinically, patient does not at this time have the capacity for discharge planning decision. All questions/concerns addressed with patient, family, and hospital staff. Optimization of other medical issues per primary team. ? Level of Care: Medically Admitted ?Pharmacological: Continue current psychotropic medications ? Therapy: Supportive ? Follow up needed while in the hospital?: Yes?Follow up Frequency:?24hr ? Discussed plan with onsite telesales team leader: Yes Who Nurse Joshua
[2023-12-05 11:16] VITALS: BP 138/87; PULSE 71; RESP 20; TEMP 36.4; O2SAT 97
--- NOTE | 2023-12-05 15:05 | W.PM.DS.N ---
Date of service: 12/05/23 Time of Service: 14:06 DS: Diagnosis Discharge Diagnosis (1) Dementia, unspecified, without behavioral disturbance: Status: Chronic (2) Delirium due to another medical condition: Status: Acute Discharge Plan Disposition Patient Disposition: Home Condition: Good Discharge Details Reason For Visit: Dementia with behavioral disturbances, Delirium Admit Date/Time: 12/04/23 01:30 Admit Provider: Satnam Lassiter Attending Provider: Satnam Lassiter Primary Care Provider: Jessie Bose Hospital Course Hospital Course: 78 yo M with history of 67 yo F with h/o paroxysmal atrial fibrillation, s/p pacemaker, HTN, glaucoma, anxiety, depression, T2DM, CAD, RJ, and agitated dementia who was admitted after an episode of confusion and agitation in which he threatened his . He had a CT of the head which showed no acute disease, did show cerebral atrophy and microvascular ischemic changes. He was continued on quetiapine 50mg qhs and 25mg TID prn. He did not have any behavioral disturbances or aggression here. He was evaluated by telepsychiatry, who felt he could not make his own decisions. Placement was considered but his felt comfortable taking him home on 12/04 while preparing for long-term care options in the future. Home Meds and New Rx's Prescriptions: New quetiapine 25 mg Tablet 25 mg PO Q8H PRN PRN (Reason: Agitation) Qty: 50 0RF Continued budesonide-formoterol [Symbicort] 160-4.5 mcg/actuation HFA aerosol inhaler 2 puff Inhalation BID Qty: 10.2 11RF atorvastatin 80 mg tablet See Rx Instructions .ROUTE .COMPLEX Qty: 90 3RF Dose Instruction: TAKE ONE TABLET BY MOUTH AT BEDTIME Rx Instructions: TAKE ONE TABLET BY MOUTH AT BEDTIME triamcinolone acetonide 0.1 % cream 1 applic topical DAILY spironolactone 25 mg tablet 12.5 mg PO DAILY Patient Comments: TAKE ONE TABLET BY MOUTH EVERY DAY folic acid 1 mg tablet 1 mg PO DAILY Qty: 90 3RF potassium chloride 20 mEq tablet extended release 40 meq PO DAILY Qty: 20 0RF Rx Instructions: Acute hypokalemia quetiapine 50 mg tablet See Rx Instructions PO QHS Qty: 30 0RF Rx Instructions: Take 50mg by mouth nightly at bedtime for depression; may take 1/2 tab (25mg) daily PRN agitation (DME) AFO Brace (R foot) See Rx Instructions .Route .MEDSUPPLY Qty: 1 0RF Rx Instructions: R AFO brace for foot drop albuterol sulfate [ProAir HFA] 90 mcg/actuation HFA aerosol inhaler 1 - 2 puff Inhalation Q6H PRN Qty: 6.7 2RF Rx Instructions: SOB/wheeze nitroglycerin 0.4 mg tablet, sublingual 0.4 mg SUBLINGUAL DIRECTED Qty: 30 0RF loperamide [Imodium A-D] 2 mg tablet 2 mg PO Q6H PRN (Reason: loose stool) Qty: 90 12RF bupropion HCl 150 mg tablet sustained-release 12 hr 150 mg PO BID Qty: 180 3RF finasteride [Proscar] 5 mg tablet 5 mg PO HS Qty: 90 3RF sotalol 80 mg tablet 80 mg PO BID Qty: 180 1RF Eliquis 5 mg tablet 5 mg PO BID Qty: 60 0RF Rx Instructions: 1-month courtesy supply until can get RX from [facility] cardi[place] acetaminophen [Tylenol] 325 mg capsule 650 mg PO Q6H PRN (Reason: fever or pain) Qty: 30 0RF cholecalciferol (vitamin D3) [Vitamin D3] 50 mcg (2,000 unit) Capsule 50 mcg PO DAILY latanoprost 0.005 % drops 1 drp ophthalmic (eye) QPM Patient Comments: INSTILL ONE DROP IN EACH EYE EVERY EVENING amlodipine 10 mg tablet 10 mg PO DAILY Rx Instructions: TAKE ONE TABLET BY MOUTH EVERY DAY Discharge Instructions Additional Instructions: you can continue to use the quetiapine (Seroquel) before bed and additional 25mg doses as needed for agitation or hallucinations Stand Alone Forms: Nursing Discharge Form Referrals: Jessie Bose [facility]NER [Primary Care Provider] - (please call and make an appointment in the next 7 days with your PCP ) Activity:: Activity as Tolerated Equipment/Supplies:: No Equipment Needed Diet:: As Tolerated Discharge Orders Discharge Orders: Discharge Order (Routine); Ordered 12/05/23 Ordered By: Felipe Silva DS: Summary Time Spent with Patient providing and/or coordinating discharge services: Greater than 30 minutes Status at Discharge Functional status at discharge: uses cane/walker Overall status at discharge: patient is back to baseline Mental Status: other (alert, but poor memory) Speech and Movement: speech and movement normal Mood: congruent mood and other (alert, but poor memory) Affect: normal affect Quality:SDOH Health Related Social Needs: No Data to Display Referrals and interventions: [facility] Psych referrals, Tele Psych consult Exam Narrative Exam Narrative: In chair, pleasant when seen w/o acute distress HEENT: NC/AT. MMM LUNGS: CTAB, nl effort CV: RRR ABD: soft, NT Ext: no c/d/e. Neuro: Normal movement 4 extremities. Able to walk around floor. no tremor or abnormal movement Psych: Oriented to self, cannot give history. Normal affect, no clear hallucinations or other abnormal though processes on breif interview Psych Mental Status: other (alert, but poor memory) Speech and Movement: speech and movement normal Mood: congruent mood and other (alert, but poor memory) Affect: normal affect DS: Data Vitals/I&O Vitals and I&O: Vital Signs Temperature 36.4 C L 12/05/23 11:16 Temperature Source Temporal Artery Scan 12/05/23 11:16 Pulse 71 12/05/23 11:16 Pulse Rhythm Regular 12/05/23 07:40 Respiratory Rate 20 12/05/23 11:16 Respiratory Effort Normal, Non-Labored 12/05/23 07:40 Respiratory Depth Normal 12/05/23 07:40 Respiratory Pattern Normal 12/05/23 07:40 Blood Pressure 138/87 12/05/23 11:16 Blood Pressure Mean 111 12/04/23 01:17 Pulse Oximetry 97 12/05/23 11:16 Oxygen Delivery Method Room Air 12/05/23 11:16 Oxygen Flow Rate 0 12/05/23 11:16 Pain Level 2 12/04/23 12:51 Comment RN informed 12/04/23 11:21 Intake & Output 12/04/23 12/05/23 12/05/23 23:59 11:59 23:59 Intake Total 550 / 2029 Balance 550 / 230 Weight 79.152 kg Intake: Oral 550 / 1030 Other: Urine Color Pale Yellow Urine Appearance Clear Clear Comment Unmeasured in toilet pt voided twice in toilet. Unsure of amount or color, no hat in toilet. unclear amount or color, no hat in toilet. Stool Size Moderate Stool Characteristics Soft Formed Brown Voiding Methods Toilet Toilet Toilet PFSH All Active Problems Dementia, unspecified, without behavioral disturbance (Chronic) Delirium due to another medical condition (Acute) Folate deficiency (Acute) Falls frequently (Acute) Mild anemia (Acute ~07/2023) Recurrent falls while walking (Acute ~2023) Impaired gait and mobility (Acute ~2023) Hallucinations (Acute) Memory difficulty (Acute ~07/2023) PAF (paroxysmal atrial fibrillation) (Chronic ~07/2023) [facility] Cardio-07/20/23 Pacemaker (Acute ~03/2023) [facility] 03/23/2023 Rotator cuff arthropathy of left shoulder (Acute) subacromial corticosteroid injection 10/28/22 Primary hypertension (Chronic) BPH (benign prostatic hyperplasia) (Chronic) RX Finasteride Glaucoma (Chronic) 09/05/19 [place] Depression (Chronic) Long-term RX Wellbutrin Diverticulosis (Chronic) 2018 colonoscopy Sinus node dysfunction (Chronic) [facility] Cardiolgy; stay off of BB Obesity (Chronic) Tubular adenoma (Chronic 10/04/08) Colonoscopy 10/04/15 & repeat 2019 (13!) Diabetes type 2, controlled (Chronic) Dx'ed in COPD (chronic obstructive pulmonary disease) (Acute) Coronary artery disease (Chronic) [facility] [employer] [place] 1998 with angina; cath in 1998 1-vessel dis Obstructive sleep apnea (Chronic) h/o CPAP; clausterphobic with masks so stopped using; then 100# weight loss; referred in 11/2019 but he declined Medical History Alcoholism in remission Calf swelling Leg pain, right Pelvic hematoma in male Swollen penis SOB (shortness of breath) on exertion Myocardial infarction X2 1997, 1998 Small bowel obstruction [facility] 05/2018; 02/2023 Normochromic normocytic anemia Bradycardia, sinus 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 Rupture of right biceps tendon PT Cataracts, bilateral 09/05/19 [place] OS>>OD Epidermal inclusion cyst Lipoma of head Removed 04/2019 [place] Anxiety and depression Pancreatitis [facility] 05/2018 (mild) Hyperlipidemia Atorvastatin Surgical History History of bilateral inguinal hernia repair Postoperative state S/P bilateral inguinal hernia repair, follow-up exam S/P cardiac pacemaker procedure (~03/2023) S/P colonoscopy (~05/02/19) 09/2015- [place]- Tubular adenomas x2 05/2019--[place] x13 tubular adenomas Total knee replacement status R 12/11/2013 L S/P shoulder surgery S/P coronary artery stent placement 04/30/19 per pt he does not have a stent. 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 [employer] Pets and animals: Yes Sexually active: Yes Do you think of yourself as: straight/heterosexual Current gender identity: male What is your relationship status?: living with partner How often do you get together with friends or relatives?: twice per week Panel score (0-1 are the most socially isolated patients): 1 What type of physical activity do you participate in: walking Duration: > 90 minutes/day Frequency: 3-4 times per week Desirae/Protestant: Tenriism Special desirae needs: No Seatbelt use: always Drive intox or ride w/intox recycling collections driver: No Do you feel safe at home: Yes Do you feel safe in your relationship?: Yes Additional Social history: answering for pt Time Spent with Patient Time Spent with Patient: <45 minutes Time was spent: preparing to see the patient(eg.review tests), obtaining and/or reviewing separately otained hiistory, ordering medications,tests, procedures, referring, communicating with other health summer child caregiver, indepentently interpreting results, counseling the patient and care coordination
== END 2023-12-05 15:58 | disposition home or self-care (01) ==
LOC: ER 12-04 02:15 → MS 12-05 14:53
PROVIDERS: Nurse Practitioner Acute Care; Admitting Provider Family Medicine; Emergency Provider Student in an Organized Health Care Education/Training Program; PCP Nurse Practitioner Adult Health; Visit Provider Family Medicine
DX: G31.89 Other specified degenerative diseases of nervous system (principal); F02.811 Dementia in other diseases classified elsewhere, unspecified severity, with agitation; F05 Delirium due to known physiological condition; I48.0 Paroxysmal atrial fibrillation; E11.9 Type 2 diabetes mellitus without complications; J43.9 Emphysema, unspecified; I25.118 Atherosclerotic heart disease of native coronary artery with other forms of angina pectoris; I49.5 Sick sinus syndrome; G47.33 Obstructive sleep apnea (adult) (pediatric); E53.8 Deficiency of other specified B group vitamins; R29.6 Repeated falls; Z95.0 Presence of cardiac pacemaker; I10 Essential (primary) hypertension; N40.0 Benign prostatic hyperplasia without lower urinary tract symptoms; H40.9 Unspecified glaucoma; K57.30 Diverticulosis of large intestine without perforation or abscess without bleeding; F32.A Depression, unspecified; F10.21 Alcohol dependence, in remission; I25.2 Old myocardial infarction; Z96.651 Presence of right artificial knee joint; Z95.5 Presence of coronary angioplasty implant and graft; R44.1 Visual hallucinations
CPT/HCPCS: 00123; 36415; 36416; 51798; 80053; 80307; 82962; 85027; 94640; 96360; 96361; 97162; 97530; 99285; 70450; 80320; 81003; 83735; 84443; 84484; 85610; 94664; 99223; 99239; G0378

== ENCOUNTER 2024-01-10 05:10 | Observation (INO) | payer OTHER, SELFPAY ==
[2024-01-10] VITALS (30 sets, daily range): BP systolic 138–183; BP diastolic 75–128; PULSE 68–76; RESP 14–22; TEMP 36.7–37.2; O2SAT 94–99
--- NOTE | 2024-01-10 05:30 | DI.CT_ITS ---
Exam(s) CT HEAD WO EXAM: CT HEAD WO CLINICAL HISTORY: fall, HS, on blood thinners. TECHNIQUE: Imaging Protocol: Axial computed tomography images with coronal and sagittal reformatted images were created and reviewed COMPARISON: CT CT HEAD WO from 12/03/2023 FINDINGS: There are no skull fractures. There is no fluid in the visualized paranasal sinuses. There is no evidence of intracranial hemorrhage, mass effect, or shift of midline structures. There are no extra-axial fluid collections. The ventricles are not enlarged or shifted and there is no blo od within the ventricular system nor within the basal cisterns. Mild periventricular hypodensity again noted consistent with chronic small vessel disease. IMPRESSION: No acute intracranial findings on this noninfused CT scan of the brain. RADIATION DOSE DELIVERED: 819.28mGy.cm Total DLP DATA REPOSITORY: All CT scans at this facility are submitted to the National Radiology Data Registry (NRDR) Dose Index Registry (DIR) with the [employer] (A[employer]). RADIATION OPTIMIZATION: All CT scans at this facility use at least one of these dose optimization te chniques: automated exposure control; mA and/or kV adjustment per patient size (includes targeted exa ms where dose is matched to clinical indication); or iterative reconstruction.
--- NOTE | 2024-01-10 05:30 | DI.RAD_ITS ---
Exam(s) XR FEMUR LT EXAM: XR FEMUR LT CLINICAL HISTORY: fall left thigh pain and swelling. TECHNIQUE: 2D digital imaging was performed. COMPARISON: CR XR FEMUR LT from 10/21/2023 FINDINGS: Two views. There are moderate degenerative changes in the left hip but no hip fractures. There is a left knee p rosthesis. No periprosthetic fractures and the remainder of the left femur appears intact. Bone den sity normal. IMPRESSION: As above. No acute fractures. DATA REPOSITORY: RADIATION DOSE DELIVERED:
--- NOTE | 2024-01-10 05:30 | DI.RAD_ITS ---
Exam(s) XR PELVIS AP EXAM: XR PELVIS AP CLINICAL HISTORY: fall. TECHNIQUE: 2D digital imaging was performed. COMPARISON: No exams were available for comparison FINDINGS: Single AP view No evidence of pelvic nor hip fracture. Moderate degenerative changes noted in both hips. No osseou s lesions. IMPRESSION: No fractures evident. DATA REPOSITORY: RADIATION DOSE DELIVERED:
--- NOTE | 2024-01-10 05:45 | W.ED.GENAD ---
Discharge Plan Discharge Details Chief Complaint: Fall/Non TraumaCriteria Primary Care Provider: Jessie Bose ED Provider: Elisha Nuñez Home Meds and New Rx's Prescriptions: No Action budesonide-formoterol [Symbicort] 160-4.5 mcg/actuation HFA aerosol inhaler 2 puff Inhalation BID Qty: 10.2 11RF atorvastatin 80 mg tablet See Rx Instructions .ROUTE .COMPLEX Qty: 90 3RF Dose Instruction: TAKE ONE TABLET BY MOUTH AT BEDTIME Rx Instructions: TAKE ONE TABLET BY MOUTH AT BEDTIME triamcinolone acetonide 0.1 % cream 1 applic topical DAILY spironolactone 25 mg tablet 12.5 mg PO DAILY Patient Comments: TAKE ONE TABLET BY MOUTH EVERY DAY folic acid 1 mg tablet 1 mg PO DAILY Qty: 90 3RF (DME) AFO Brace (R foot) See Rx Instructions .Route .MEDSUPPLY Qty: 1 0RF Rx Instructions: R AFO brace for foot drop albuterol sulfate [ProAir HFA] 90 mcg/actuation HFA aerosol inhaler 1 - 2 puff Inhalation Q6H PRN Qty: 6.7 2RF Rx Instructions: SOB/wheeze nitroglycerin 0.4 mg tablet, sublingual 0.4 mg SUBLINGUAL DIRECTED Qty: 30 0RF loperamide [Imodium A-D] 2 mg tablet 2 mg PO Q6H PRN (Reason: loose stool) Qty: 90 12RF finasteride [Proscar] 5 mg tablet 5 mg PO HS Qty: 90 3RF quetiapine 50 mg tablet See Rx Instructions PO QHS Qty: 90 1RF Rx Instructions: Take 50mg by mouth nightly at bedtime for depression; may take 1/2 tab (25mg) BID PRN agitation acetaminophen [Tylenol] 325 mg capsule 1,000 mg PO Q6H PRN (Reason: fever or pain) bupropion HCl 150 mg tablet extended release 24 hr 150 mg PO QAM Qty: 90 3RF Rx Instructions: Changed to ONCE PER DAY dosing--take in AM mirtazapine 7.5 mg tablet 7.5 mg PO QHS Qty: 90 3RF Rx Instructions: New RX 12/13/23 for depression, anxiety, sleep sotalol 80 mg tablet 80 mg PO BID Qty: 180 1RF Eliquis 5 mg tablet 5 mg PO BID Qty: 60 0RF Rx Instructions: 1-month courtesy supply until [place] [facility] chloride 20 mEq tablet extended release 20 meq PO DAILY Qty: 90 3RF Rx Instructions: Hypokalemia amlodipine 10 mg tablet See Rx Instructions .ROUTE .COMPLEX Qty: 90 3RF Dose Instruction: TAKE ONE TABLET BY MOUTH EVERY DAY Rx Instructions: TAKE ONE TABLET BY MOUTH EVERY DAY cholecalciferol (vitamin D3) [Vitamin D3] 50 mcg (2,000 unit) Capsule 50 mcg PO DAILY latanoprost 0.005 % drops 1 drp ophthalmic (eye) QPM Patient Comments: INSTILL ONE DROP IN EACH EYE EVERY EVENING furosemide 40 mg tablet 20 mg PO .COMPLEX Patient Comments: TAKE ONE TABLET BY MOUTH TWICE A DAY Rx Instructions: 20 mg orally Every Other Day; HPI General Mode of arrival: ambulatory. Date/Time Provider Initiated Documentation: 01/10/24 05:11. Limitations to Documentation: no limitations. Information obtained by: patient and family. HPI Narrative: 78yo M with hx dementia, CAD, COPD, DM, HTN, pacemaker, CAD with stent, on apixaban, presenting with left thigh pain after a fall. Fell around 1999 yesterday evening, struck his head. Did not lose consciousness. Had some difficulty getting up. Reports that bystanders called EMS; evaluated at scene and then his took him home. He was able to walk into the house independently using his walker. Overnight leg pain persisted, perhaps worsened. Pain is in his whole lower extremity, worse in his thigh which feels swollen. Difficulty walking this morning. No numbness, tingling, or focal weakness. He is otherwise in his usual state of health with no fevers, chills, rash, headache, nausea, vomiting, chest pain, shortness of breath, abdominal pain, or other concerns. Related Data Home Medications Medication Instructions Recorded Confirmed cholecalciferol (vitamin D3) 50 50 mcg PO DAILY 07/07/21 01/10/24 mcg (2,000 unit) capsule (Vitamin D3) budesonide-formoterol HFA 160 2 puff inhalation BID #10.2 grams 11/03/21 01/10/24 mcg-4.5 mcg/actuation aerosol inhaler (Symbicort) latanoprost 0.005 % eye drops 1 drp ophthalmic (eye) QPM 07/27/23 01/10/24 atorvastatin 80 mg tablet See Rx Instructions .Route 08/04/23 01/10/24 .COMPLEX #90 tabs albuterol sulfate 90 mcg/actuation 1 - 2 puff inhalation Q6H PRN 08/17/23 01/10/24 aerosol inhaler (ProAir HFA) shortness of breath or wheezing #6.7 grams nitroglycerin 0.4 mg sublingual 0.4 mg sublingual DIRECTED #30 08/17/23 01/10/24 tablet tabs loperamide 2 mg tablet (Imodium 2 mg PO Q6H PRN loose stool #90 10/07/23 01/10/24 A-D) tabs apixaban 5 mg tablet (Eliquis) 5 mg PO BID #60 tabs 10/27/23 01/10/24 sotalol 80 mg tablet 80 mg PO BID #180 tabs 10/27/23 01/10/24 spironolactone 25 mg tablet 12.5 mg PO DAILY 11/11/23 01/10/24 triamcinolone acetonide 0.1 % 1 applic topical DAILY 11/11/23 01/10/24 topical cream AFO Brace (R foot) #1 ea 11/25/23 01/10/24 folic acid 1 mg tablet 1 mg PO DAILY #90 tabs 11/25/23 01/10/24 potassium chloride 20 mEq 20 meq PO DAILY #90 tabs 12/08/23 01/10/24 tablet,extended release acetaminophen 325 mg capsule 1,000 mg PO Q6H PRN fever or pain 12/13/23 01/10/24 (Tylenol) bupropion HCl 150 mg 24 hr tablet, 150 mg PO QAM #90 tabs 12/13/23 01/10/24 extended release mirtazapine 7.5 mg tablet 7.5 mg PO QHS #90 tabs 12/13/23 01/10/24 amlodipine 10 mg tablet See Rx Instructions .Route 12/27/23 01/10/24 .COMPLEX #90 tabs finasteride 5 mg tablet (Proscar) 5 mg PO HS #90 tabs 01/06/24 01/10/24 quetiapine 50 mg tablet See Rx Instructions PO QHS #90 tabs 01/06/24 01/10/24 furosemide 40 mg tablet 20 mg PO .COMPLEX 01/10/24 01/10/24 Previous Rx's Medication Instructions Recorded budesonide-formoterol HFA 160 2 puff inhalation BID #10.2 grams 11/03/21 mcg-4.5 mcg/actuation aerosol inhaler (Symbicort) atorvastatin 80 mg tablet See Rx Instructions .Route 08/04/23 .COMPLEX #90 tabs albuterol sulfate 90 mcg/actuation 1 - 2 puff inhalation Q6H PRN 08/17/23 aerosol inhaler (ProAir HFA) shortness of breath or wheezing #6.7 grams nitroglycerin 0.4 mg sublingual 0.4 mg sublingual DIRECTED #30 08/17/23 tablet tabs loperamide 2 mg tablet (Imodium 2 mg PO Q6H PRN loose stool #90 10/07/23 A-D) tabs apixaban 5 mg tablet (Eliquis) 5 mg PO BID #60 tabs 10/27/23 sotalol 80 mg tablet 80 mg PO BID #180 tabs 10/27/23 AFO Brace (R foot) #1 ea 11/25/23 folic acid 1 mg tablet 1 mg PO DAILY #90 tabs 11/25/23 potassium chloride 20 mEq 20 meq PO DAILY #90 tabs 12/08/23 tablet,extended release bupropion HCl 150 mg 24 hr tablet, 150 mg PO QAM #90 tabs 12/13/23 extended release mirtazapine 7.5 mg tablet 7.5 mg PO QHS #90 tabs 12/13/23 amlodipine 10 mg tablet See Rx Instructions .Route 12/27/23 .COMPLEX #90 tabs finasteride 5 mg tablet (Proscar) 5 mg PO HS #90 tabs 01/06/24 quetiapine 50 mg tablet See Rx Instructions PO QHS #90 tabs 01/06/24 Allergies Allergy/AdvReac Type Severity Reaction Status Date / Time oxycodone AdvReac Intermediate He goes a Verified 01/10/24 05:22 little wacky General Stated Complaint: Fall/Non TraumaCriteria LOREN: 3 Review of Systems Narrative: see HPI Exam Narrative Exam Narrative: GENERAL: Alert, no acute distress SKIN: Warm and well perfused. HEAD:Abrasion to left forehead MOUTH: MMM NECK: Trachea midline. No discolorations or edema. CV: Regular rate and rhythm, Normal s1 and s2. No murmurs, rubs, or gallops. PV: Radial pulses 2+ bilaterally and symmetric. Dorsalis pedis pulses 1+ bilaterally and symmetric. No extremity edema. CHEST: No abrasions or ecchymosis. Chest symmetric with respirations. No chest wall tenderness. Lungs are clear to auscultation bilaterally. ABDOMEN: No ecchymosis or abrasions. Soft, nondistended, nontender BACK: No abrasions, skin openings, or ecchymosis. Spine without bony tenderness PELVIC: Pelvis stable, nontender to lateral compression MSK: No gross deformities. Left anterior/lateral thigh swelling with tenderness to palpation. No overlying echymosis. Anterior compartment firm but not tense, remains compressible, no pain out of proportion. Sensation to thigh intact and symmetric with right. Distal sensation, pulses, and capillary refill intact and symmetric with right. NEURO: Alert. GCS 15. Moves all extremities freely against gravity. Course Vital Signs Vital signs: Vital Signs Temperature 36.7 C 01/10/24 05:15 Pulse 76 01/10/24 05:15 Respiratory Rate 16 01/10/24 05:15 Blood Pressure 183/77 H 01/10/24 05:15 Pulse Oximetry 97 01/10/24 05:15 Temperature 36.7 C 01/10/24 05:15 Pulse 76 01/10/24 05:15 Respiratory Rate 16 01/10/24 05:15 Respiratory Effort Normal, Non-Labored 01/10/24 05:33 Blood Pressure 183/77 H 01/10/24 05:15 Blood Pressure Position Supine 01/10/24 05:15 Pulse Oximetry 97 01/10/24 05:15 Oxygen Delivery Method Room Air 01/10/24 05:15 Oxygen Flow Rate 0 01/10/24 05:15 Pain Level 9 01/10/24 05:35 Medical Decision Making 78yo M with hx dementia, CAD, COPD, DM, HTN, pacemaker, CAD with stent, on apixaban, presenting with left thigh pain after a fall. Fell around 1999 yesterday evening, struck his head. No LOC. Able to walk afterwards. Persistent ? worsening pain overnight as well as thigh swelling. Hypertensive on arrival, vital signs otherwise reassuring. Left anterior/lateral thigh mildly swollen, TTP, somewhat firm though remains compressible. No echymosis. No pain out of proportion. Sensation, distal pulses, and distal capillary refill intact and symmetric with right. Exam not consistent with compartment syndrome at this time though as patient on AC higher risk for progression. Will give tylenol for pain, eval further with labs and plain films pelvis/femur as well as head CT though low suspicion for acute bleed. Labs reviewed as below, CBC reassuring with Hg of 11.8 consistent with pt recent baseline on [facility] record review, CMP with no actionable abnormalities, coags normal, CK high-normal at 239. CT head independently reviewed; no evident ICH on my view, agree with radiology read below. Plain film pelvis and left femur independently reviewed; possible nondisplaced midshaft femur fx on my view, radiology read below identified as nutrient foramen. Discussed with orthopedist aoc director combat operations officer Dr. Castillo, agrees nutrient foramen. Advised CTA femur to further evaluate for extravasation. Signed out to oncoming physician, plan to followup CT results, final ortho reccs. Imaging Data Radiologic Study: Imaging: X-Ray Radiologist's impression: IMPRESSION: No acute bony injury in the visualized pelvis on the single AP view obtained. IMPRESSION: No acute bony injury in the visualized left femur. *A nutrient foramen is identified in the cortex of the mid femoral diaphysis Radiologic Study #2: Imaging: CT Scan Radiologist's impression: IMPRESSION: No acute post-traumatic brain injury. Quality:SDOH Health Related Social Needs: No Data to Display PFSH All Active Problems (Updated 12/13/23 @ 10:15 by Jessie Bose NP) Dementia with behavioral disturbance (Acute ~11/2023) Quetiapine Hypokalemia (Acute) Dementia, unspecified, without behavioral disturbance (Chronic) Delirium due to another medical condition (Acute) Folate deficiency (Acute) Mild anemia (Acute ~07/2023) Recurrent falls while walking (Acute ~2023) Impaired gait and mobility (Acute ~2023) Hallucinations (Acute) Memory difficulty (Acute ~07/2023) PAF (paroxysmal atrial fibrillation) (Chronic ~07/2023) [facility] [place] Pac[place] (Acute ~03/2023) [facility] [place] Rotator cuff arthropathy of left shoulder (Acute) subacromial corticosteroid injection 10/28/22 Primary hypertension (Chronic) BPH (benign prostatic hyperplasia) (Chronic) RX Finasteride Glaucoma (Chronic) 09/05/19 [place] Depression (Chronic) Long-term RX Wellbutrin Diverticulosis (Chronic) 2018 colonoscopy Sinus node dysfunction (Chronic) [facility] [place] stay off of BB Obesity (Chronic) Tubular adenoma (Chronic 10/04/08) Colonoscopy 10/04/15 & repeat 2019 (13!) Diabetes type 2, controlled (Chronic) Dx'ed in COPD (chronic obstructive pulmonary disease) (Acute) Coronary artery disease (Chronic) [facility] [place] 1998 with angina; cath in 1998 1-vessel dis Obstructive sleep apnea (Chronic) h/o CPAP; clausterphobic with masks so stopped using; then 100# weight loss; referred in 11/2019 but he declined Medical History Alcoholism in remission Calf swelling Leg pain, right Pelvic hematoma in male Swollen penis SOB (shortness of breath) on exertion Myocardial infarction X2 1997, 1998 Small bowel obstruction [facility] 05/2018; 02/2023 Normochromic normocytic anemia Bradycardia, sinus 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 cardiac cath rn Rupture of right biceps tendon PT Cataracts, bilateral 09/05/19 [place] OS>>OD Epidermal inclusion cyst Lipoma of head Removed 04/2019 [place] Anxiety and depression Pancreatitis [facility] 05/2018 (mild) Hyperlipidemia Atorvastatin Surgical History History of bilateral inguinal hernia repair Postoperative state S/P bilateral inguinal hernia repair, follow-up exam S/P cardiac pacemaker procedure (~03/2023) S/P colonoscopy (~05/02/19) 09/2015- [place]- Tubular adenomas x2 05/2019--Brain x13 tubular adenomas Total knee replacement status R 12/11/2013 L S/P shoulder surgery S/P coronary artery stent placement 04/30/19 per pt he does not have a stent. 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 Pets and animals: Yes Sexually active: Yes Do you think of yourself as: straight/heterosexual Current gender identity: male What is your relationship status?: living with partner How often do you get together with friends or relatives?: twice per week Panel score (0-1 are the most socially isolated patients): 1 What type of physical activity do you participate in: walking Duration: > 90 minutes/day Frequency: 3-4 times per week Desirae/Christian: Druze Special desirae needs: No Seatbelt use: always Drive intox or ride w/intox school bus driver/custodian: No Do you feel safe at home: Yes Do you feel safe in your relationship?: Yes Additional Social history: answering for pt
[2024-01-10 05:55] LABS: Abs Immature Grans 0.03 10^3/uL (0.0-0.06); Absolute Basophil Count 0.04 10^3/uL (0.0-0.2); Absolute Eosinophil Count 0.05 10^3/uL (0.0-0.7); Absolute Lymphocyte Count 0.79 10^3/uL (1.2-3.4); Absolute Monocyte Count 0.57 10^3/uL (0.1-0.8); Absolute Neutrophil Count 5.54 10^3/uL (1.2-6.7); Basophils % 0.6 %; Eosinophils % 0.7 %; HCT 36.2 % (40.0-50.0); HGB 11.8 g/dL (13.5-17.5); Immature Grans % 0.4 %; Lymphocytes % 11.3 %; MCH 29.1 pg (27.0-33.0); MCHC 32.6 % (32.0-36.0); MCV 89 fL (80-95); MPV 9.5 fL (8.0-11.0); Monocytes % 8.1 %; Neutrophils % 78.9 %; Platelet Count 204 10^3/uL (130-400); RBC 4.06 10^6/uL (4.36-5.78); RDW 13.8 % (11.8-14.1); WBC 7.02 10^3/uL (4.4-10.8)
[2024-01-10 06:11] LABS: ALT 35 U/L (16-63); AST 31 U/L (15-37); Albumin 3.8 g/dL (3.4-5.0); Alkaline Phosphatase 159 U/L (46-116); Anion Gap 11.2 mmol/L (3-11); BUN 19 mg/dL (7-18); Bilirubin, Total 1.13 mg/dL (0.2-1.0); CO2 25.8 mmol/L (21.0-32.0); CREATININE 1.3 mg/dL (0.70-1.30); Calcium 8.8 mg/dL (8.5-10.1); Chloride 105 mmol/L (98-107); Creatine Kinase 239 U/L (39-308); Estimated GFR 55.88 (mL/min/1.73m2); Glucose 182 mg/dL (74-106); Potassium 3.5 mmol/L (3.5-5.1); Sodium 142 mmol/L (136-145); Total Protein 6.9 g/dL (6.4-8.2)
[2024-01-10] MEDS: ACETAMINOPHEN 1,000 MG/100 ML BTL 400 MG IVPB (06:28)
--- NOTE | 2024-01-10 06:47 | DI.VRAD_ITS ---
PROCEDURE INFORMATION: Preliminary report Exam: CT Head Without Contrast Exam date and time: 01/10/2024 6:06 AM Age: 78 years old Clinical indication: Injury or trauma; Blunt trauma (contusions or hematomas); Consciousness not specified; Injury date: 01/10/24; Injury details: Fall, hs, on blood thinkers TECHNIQUE: Imaging protocol: Computed tomography of the head without contrast. Radiation optimization: All CT scans at this facility use at least one of these dose optimization techniques: automated exposure control; mA and/or kV adjustment per patient size (includes targeted exams where dose is matched to clinical indication); or iterative reconstruction. COMPARISON: CT HEAD WO 12/03/2023 10:00 PM FINDINGS: Brain: No acute post-traumatic brain injury. Symmetric prominence of the cortical sulci. Mild small vessel ischemic change. Cerebral ventricles: Stable configuration of the ventricles. Paranasal sinuses: No sinus fluid. Mastoid air cells: No mastoid effusion. Bones: No acute calvarial injury. Soft tissues: No significant scalp hematoma. Stable punctate subcutaneous calcification in the right parietal region. IMPRESSION: No acute post-traumatic brain injury. Dictated and Authenticated by: Perico Jamison MD. Ordering:ISELA Tello MD
--- NOTE | 2024-01-10 06:48 | DI.VRAD_ITS ---
PROCEDURE INFORMATION: Preliminary report Exam: XR Pelvis Exam date and time: 01/10/2024 6:12 AM Age: 78 years old Clinical indication: Injury or trauma; Fall; Blunt trauma (contusions or hematomas); Left; Hip; Injury date: 01/10/24 TECHNIQUE: Imaging protocol: Radiologic exam of the pelvis. Views: 1 or 2 view. COMPARISON: CT ABDOMEN PELVIS W 05/18/2023 5:53 PM FINDINGS: Bones/joints: No acute bony injury in the visualized pelvis on the single AP view obtained. Degenerative change. Soft tissues: Unremarkable. Other findings: Prominent stool. IMPRESSION: No acute bony injury in the visualized pelvis on the single AP view obtained. Dictated and Authenticated by: Perico Jamison MD. Ordering:ISELA Tello MD
--- NOTE | 2024-01-10 06:49 | DI.VRAD_ITS ---
Addendum created by Perico Jamison MD on 01/10/2024 7:00:37 AM EDT: A nutrient foramen is identified in the cortex of the mid femoral diaphysis. If an occult fracture remains of clinical concern, CT can be performed for improved characterization. Initial report created on 01/10/2024 6:49:11 AM EDT: PROCEDURE INFORMATION: Preliminary report Exam: XR Left Femur Exam date and time: 01/10/2024 6:14 AM Age: 78 years old Clinical indication: Injury or trauma; Fall; Blunt trauma; Thigh or upper leg; Left; Injury date: 01/10/24; Prior surgery; Surgery date: 6+ months; Surgery type: Knee replacement TECHNIQUE: Imaging protocol: Radiologic exam of the left femur. Views: 2 views. COMPARISON: CR XR FEMUR LT 10/21/2023 2:19 PM FINDINGS: Bones/joints: No acute bony injury in the visualized left femur. Degenerative change. Left knee arthroplasty. Soft tissues: Unremarkable. Vasculature: Vascular calcification. IMPRESSION: No acute bony injury in the visualized left femur. Dictated and Authenticated by: Perico Jamison MD. Ordering:ISELA Tello MD
[2024-01-10 06:51] LABS: INR 1.1 (0.9-1.1); PTT Activated 32.1 sec (23.6-32.8); Prothrombin Time 11.1 sec (9.1-11.1)
--- NOTE | 2024-01-10 07:15 | DI.CT_ITS ---
Exam(s) CT LOWER EXTREMITY LT CTA EXAM: CT LOWER EXTREMITY LT CTA CLINICAL HISTORY: thigh swelling, trauma, on eliquis TECHNIQUE: CTA COMPARISON: CT CT ABDOMEN PELVIS W from 05/18/2023 FINDINGS: SOFT TISSUES: There is a large hematoma in the left thigh anterior to the femur involving the vastus medialis and adjacent musculature. There are confluent fluid levels within this hematoma, and there are 2 small contrast blushes evident which do imply active bleeding. OSSEOUS: There are no fractures evident. Left knee prosthesis noted. Moderate degenerative changes in the left hip joint. ARTERIES: Aortic bifurcation patent. Common and external iliac arteries are patent as are the cad intern al iliac arteries. No evidence of active bleeding within the pelvis. The common femoral arteries ar e patent. SFA arteries are patent bilaterally without evidence of significant atherosclerotic narrow ing and these vessels are continuous with patent bilateral popliteal arteries. No evidence of poplit eal artery aneurysms. There is satisfactory vascular runoff in both calves. IMPRESSION: Large left thigh muscular hematoma with intra hematoma fluid level and 2 small areas of contrast blus h in consistent with ongoing back bleeding. Discussed with ER physician.
[2024-01-10] MEDS: Normal Saline - Diluent 50 ML VIAL IJ (07:52)
[2024-01-10] MEDS: Normal Saline Flush 10 ML SYR IVP ×2 (07:53→20:11)
[2024-01-10] MEDS: Omnipaque 350 MG/ML 100 ML BTL 150 ML IJ (07:54)
--- NOTE | 2024-01-10 08:26 | W.EDPROG ---
Date of service: 01/10/24 Time of Service: 08:26 Medical Decision Making Care assumed from off going provider. Patient is a 78-year-old gentleman with A-fib on Eliquis that had a fall last night. Concern for large hematoma in the left thigh. Imaging does not reveal a fracture. There is concern for large hematoma. The patient is hemodynamically stable. His thigh compartment is soft. A CTA was obtained. I discussed the findings with radiology, there are 2 small areas of blush indicating some ongoing bleeding. I also discussed with orthopedics who will consult on the patient as well. At this time the patient has no signs of compartment syndrome. The area of extravasation does not warrant interventional radiology. A repeat CBC was obtained and his hemoglobin is stable. Plan for admission, observation, PT OT evaluation, pain control and serial H&H's to make sure that he large by hematoma does not significantly worsen. Medical Records Medical records reviewed: Yes I reviewed the patient's medical records. Quality:[facility] Health Related Social Needs: No Data to Display Sign Out Sign Out Data: Sign Out Comment: Fall yesterday evening, on AC. Now with left thigh tight and swollen. Pending CTA left femur. Last updated by Elisha Nuñez MD at 01/10/24 07:32 Discharge Plan Discharge Details Chief Complaint: Fall/Non TraumaCriteria Primary Care Provider: Jessie Bose ED Provider: Dulce Padron Home Meds and New Rx's Prescriptions: No Action budesonide-formoterol [Symbicort] 160-4.5 mcg/actuation HFA aerosol inhaler 2 puff Inhalation BID Qty: 10.2 11RF atorvastatin 80 mg tablet See Rx Instructions .ROUTE .COMPLEX Qty: 90 3RF Dose Instruction: TAKE ONE TABLET BY MOUTH AT BEDTIME Rx Instructions: TAKE ONE TABLET BY MOUTH AT BEDTIME triamcinolone acetonide 0.1 % cream 1 applic topical DAILY spironolactone 25 mg tablet 12.5 mg PO DAILY Patient Comments: TAKE ONE TABLET BY MOUTH EVERY DAY folic acid 1 mg tablet 1 mg PO DAILY Qty: 90 3RF (DME) AFO Brace (R foot) See Rx Instructions .Route .MEDSUPPLY Qty: 1 0RF Rx Instructions: R AFO brace for foot drop albuterol sulfate [ProAir HFA] 90 mcg/actuation HFA aerosol inhaler 1 - 2 puff Inhalation Q6H PRN Qty: 6.7 2RF Rx Instructions: SOB/wheeze nitroglycerin 0.4 mg tablet, sublingual 0.4 mg SUBLINGUAL DIRECTED Qty: 30 0RF loperamide [Imodium A-D] 2 mg tablet 2 mg PO Q6H PRN (Reason: loose stool) Qty: 90 12RF finasteride [Proscar] 5 mg tablet 5 mg PO HS Qty: 90 3RF quetiapine 50 mg tablet See Rx Instructions PO QHS Qty: 90 1RF Rx Instructions: Take 50mg by mouth nightly at bedtime for depression; may take 1/2 tab (25mg) BID PRN agitation acetaminophen [Tylenol] 325 mg capsule 1,000 mg PO Q6H PRN (Reason: fever or pain) bupropion HCl 150 mg tablet extended release 24 hr 150 mg PO QAM Qty: 90 3RF Rx Instructions: Changed to ONCE PER DAY dosing--take in AM mirtazapine 7.5 mg tablet 7.5 mg PO QHS Qty: 90 3RF Rx Instructions: New RX 12/13/23 for depression, anxiety, sleep sotalol 80 mg tablet 80 mg PO BID Qty: 180 1RF Eliquis 5 mg tablet 5 mg PO BID Qty: 60 0RF Rx Instructions: 1-month courtesy supply until can get RX [place] [facility] [place] potassium chloride 20 mEq tablet extended release 20 meq PO DAILY Qty: 90 3RF Rx Instructions: Hypokalemia amlodipine 10 mg tablet See Rx Instructions .ROUTE .COMPLEX Qty: 90 3RF Dose Instruction: TAKE ONE TABLET BY MOUTH EVERY DAY Rx Instructions: TAKE ONE TABLET BY MOUTH EVERY DAY cholecalciferol (vitamin D3) [Vitamin D3] 50 mcg (2,000 unit) Capsule 50 mcg PO DAILY latanoprost 0.005 % drops 1 drp ophthalmic (eye) QPM Patient Comments: INSTILL ONE DROP IN EACH EYE EVERY EVENING furosemide 40 mg tablet 20 mg PO .COMPLEX Patient Comments: TAKE ONE TABLET BY MOUTH TWICE A DAY Rx Instructions: 20 mg orally Every Other Day;
[2024-01-10 10:01] LABS: HCT 34.1 % (40.0-50.0); HGB 11.2 g/dL (13.5-17.5); MCH 28.9 pg (27.0-33.0); MCHC 32.8 % (32.0-36.0); MCV 88 fL (80-95); MPV 9.9 fL (8.0-11.0); Platelet Count 206 10^3/uL (130-400); RBC 3.87 10^6/uL (4.36-5.78); RDW 13.8 % (11.8-14.1); RDW-SD 44.3 fL; WBC 7.87 10^3/uL (4.4-10.8)
--- NOTE | 2024-01-10 10:27 | W.PM.HP.N ---
Date of service: 01/10/24 Time of Service: 10:27 Assessment and Plan Assessment and plan (1) Hematoma of left lower extremity: Status: Acute Assessment and plan: -s/p fall on 01/09/2024 -imaging did not show any signs of fracture, but did reveal a significant left thigh hematoma with signs of ongoing bleeding -initial Hb 11.8, repeat down to 11.2 -given that patient is on eliquis for a-fib, will monitor overnight and repeat Hb levels to assess for ongoing bleeding/worsening of hematoma (2) PAF (paroxysmal atrial fibrillation): Status: Chronic Assessment and plan: -holding home eliquis as noted above -continue home sotalol (3) Recurrent falls while walking: Status: Acute Assessment and plan: -patient with increase frequency of falls recently -appreciate PT consultation (4) Coronary artery disease: Status: Chronic Assessment and plan: -continue home SL nitro PRN, lipitor 80mg HS, spironolactone 12.5mg daily, and PRN 20mg BID Qualifiers: Associated angina: with stable angina Coronary Disease-Associated Artery/Lesion type: unspecified vessel or lesion type [place] vs. transplanted heart: [place] heart Qualified Code(s): I25.118 - Atherosclerotic heart disease of [place] coronary artery with other forms of angina pectoris (5) Primary hypertension: Status: Chronic Assessment and plan: -continue home amlodipine (6) COPD (chronic obstructive pulmonary disease): Status: Acute Assessment and plan: -continue home inhaler regimen Qualifiers: COPD type: emphysema Emphysema type: unspecified Qualified Code(s): J43.9 - Emphysema, unspecified (7) Dementia with behavioral disturbance: Status: Acute Assessment and plan: -continue home mirtazapine History of Present Illness History of Present Illness Chief Complaint: left thigh pain Narrative: 78-year-old male with a past medical history of dementia, coronary artery disease, COPD, hypertension, pacemaker, A-fib on Eliquis presents the emergency department after experiencing a fall and having persistent left thigh pain. Patient fell at around 2000 on 01/09/2024 claiming that he hit his head but did not lose consciousness. He also experienced some difficulty getting up and reports that bystanders had called EMS where he was evaluated at the scene when his took him home. He was initially able to walk into his home independently using his walker however, patient had increasing pain overnight over the entirety of his left lower extremity however worse over his left thigh which felt swollen. He woke up earlier this morning and had significant difficulty ambulating which prompted him to present to the emergency department. He denies any fevers chills nausea vomiting headache visual loss. In the emergency department the patient was noted as having normal vital signs with the exception of slightly elevated blood pressure, normal CBC with an initial hemoglobin of 11.8, and normal CMP. He also had negative head CT however, given patient's left thigh pain left femur x-ray and pelvis x-ray showed no signs of acute fracture, however left lower extremity CTA showed large left thigh muscular hematoma with intramuscular hematoma fluid level and 2 small areas of contrast blush consistent with ongoing bleeding. Orthopedic surgery was consulted and recommended patient be admitted for observation under medicine service to have hemoglobin monitored given potential that hematoma continues to worsen and patient being on chronic anticoagulation. At which time emergency room physician paged hospitalist for admission for patient with significant left thigh hematoma was on chronic anticoagulation would benefit from observation and repeat hemoglobin. Review of Systems All systems reviewed & are unremarkable except as noted in HPI and below PFSH All Active Problems (Updated 01/10/24 @ 11:21 by Dulce Padron MD) Chronic anticoagulation (Acute) Hematoma of left lower extremity (Acute) Dementia with behavioral disturbance (Acute ~11/2023) Quetiapine Hypokalemia (Acute) Dementia, unspecified, without behavioral disturbance (Chronic) Delirium due to another medical condition (Acute) Folate deficiency (Acute) Mild anemia (Acute ~07/2023) Recurrent falls while walking (Acute ~2023) Impaired gait and mobility (Acute ~2023) Hallucinations (Acute) Memory difficulty (Acute ~07/2023) PAF (paroxysmal atrial fibrillation) (Chronic ~07/2023) [facility] [place] [facility] Cardio-07/20/23 Pacemaker (Acute ~03/2023) [facility] [place] 03/23/2023 Rotator cuff arthropathy of left shoulder (Acute) subacromial corticosteroid injection 10/28/22 Primary hypertension (Chronic) BPH (benign prostatic hyperplasia) (Chronic) RX Finasteride Glaucoma (Chronic) 09/05/19 [place] Depression (Chronic) Long-term RX Wellbutrin Diverticulosis (Chronic) 2018 colonoscopy Sinus node dysfunction (Chronic) [facility] [place] Cardiolgy; stay off of BB Obesity (Chronic) Tubular adenoma (Chronic 10/04/08) Colonoscopy 10/04/15 & repeat 2019 (13!) Diabetes type 2, controlled (Chronic) Dx'ed in COPD (chronic obstructive pulmonary disease) (Acute) Coronary artery disease (Chronic) [facility] [place] 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; cath in 1998 1-vessel dis Obstructive sleep apnea (Chronic) h/o CPAP; clausterphobic with masks so stopped using; then 100# weight loss; referred in 11/2019 but he declined Medical History Alcoholism in remission Calf swelling Leg pain, right Pelvic hematoma in male Swollen penis SOB (shortness of breath) on exertion Myocardial infarction X2 1997, 1998 Small bowel obstruction [facility] 05/2018; 02/2023 Normochromic normocytic anemia Bradycardia, sinus 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 cardiac monitor technician Rupture of right biceps tendon PT Cataracts, bilateral 09/05/19 [place] OS>>OD Epidermal inclusion cyst Lipoma of head Removed 04/2019 [place] Anxiety and depression Pancreatitis [facility] 05/2018 (mild) Hyperlipidemia Atorvastatin Surgical History History of bilateral inguinal hernia repair Postoperative state S/P bilateral inguinal hernia repair, follow-up exam S/P cardiac pacemaker procedure (~03/2023) S/P colonoscopy (~05/02/19) 09/2015- [place]- Tubular adenomas x2 05/2019--Brain x13 tubular adenomas Total knee replacement status R 12/11/2013 L S/P shoulder surgery S/P coronary artery stent placement 04/30/19 per pt he does not have a stent. 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 Pets and animals: Yes Sexually active: Yes Do you think of yourself as: straight/heterosexual Current gender identity: male What is your relationship status?: living with partner How often do you get together with friends or relatives?: twice per week Panel score (0-1 are the most socially isolated patients): 1 What type of physical activity do you participate in: walking Duration: > 90 minutes/day Frequency: 3-4 times per week Desirae/Adventist: Caodaism Special desirae needs: No Seatbelt use: always Drive intox or ride w/intox school bus driver/custodian: No Do you feel safe at home: Yes Do you feel safe in your relationship?: Yes Additional Social history: answering for pt Meds Allergies and Home Medications Allergies Allergy/AdvReac Type Severity Reaction Status Date / Time oxycodone AdvReac Intermediate He goes a Verified 01/10/24 05:22 little wacky Home Medications Medication Instructions Recorded Confirmed Type cholecalciferol (vitamin D3) 50 50 mcg PO DAILY 07/07/21 01/10/24 History mcg (2,000 unit) capsule (Vitamin D3) budesonide-formoterol HFA 160 2 puff inhalation BID #10.2 grams 11/03/21 01/10/24 Rx mcg-4.5 mcg/actuation aerosol inhaler (Symbicort) latanoprost 0.005 % eye drops 1 drp ophthalmic (eye) QPM 07/27/23 01/10/24 History atorvastatin 80 mg tablet See Rx Instructions .Route 08/04/23 01/10/24 Rx .COMPLEX #90 tabs albuterol sulfate 90 mcg/actuation 1 - 2 puff inhalation Q6H PRN 08/17/23 01/10/24 Rx aerosol inhaler (ProAir HFA) shortness of breath or wheezing #6.7 grams nitroglycerin 0.4 mg sublingual 0.4 mg sublingual DIRECTED #30 08/17/23 01/10/24 Rx tablet tabs loperamide 2 mg tablet (Imodium 2 mg PO Q6H PRN loose stool #90 10/07/23 01/10/24 Rx A-D) tabs apixaban 5 mg tablet (Eliquis) 5 mg PO BID #60 tabs 10/27/23 01/10/24 Rx sotalol 80 mg tablet 80 mg PO BID #180 tabs 10/27/23 01/10/24 Rx spironolactone 25 mg tablet 12.5 mg PO DAILY 11/11/23 01/10/24 History triamcinolone acetonide 0.1 % 1 applic topical DAILY 11/11/23 01/10/24 History topical cream AFO Brace (R foot) #1 ea 11/25/23 01/10/24 Rx folic acid 1 mg tablet 1 mg PO DAILY #90 tabs 11/25/23 01/10/24 Rx potassium chloride 20 mEq 20 meq PO DAILY #90 tabs 12/08/23 01/10/24 Rx tablet,extended release acetaminophen 325 mg capsule 1,000 mg PO Q6H PRN fever or pain 12/13/23 01/10/24 History (Tylenol) bupropion HCl 150 mg 24 hr tablet, 150 mg PO QAM #90 tabs 12/13/23 01/10/24 Rx extended release mirtazapine 7.5 mg tablet 7.5 mg PO QHS #90 tabs 12/13/23 01/10/24 Rx amlodipine 10 mg tablet See Rx Instructions .Route 12/27/23 01/10/24 Rx .COMPLEX #90 tabs finasteride 5 mg tablet (Proscar) 5 mg PO HS #90 tabs 01/06/24 01/10/24 Rx quetiapine 50 mg tablet See Rx Instructions PO QHS #90 tabs 01/06/24 01/10/24 Rx furosemide 40 mg tablet 20 mg PO .COMPLEX 01/10/24 01/10/24 History Exam Narrative Exam Narrative: well appearing older gentleman laying in bed in no acute distress, awake, alert, oriented to person and place, heart RRR, lungs CTAB, abdomen soft, non-tender, non-distended, pain to palpation of the left thigh without visible erythema or ecchymosis Results Labs 01/10/24 09:52 01/10/24 05:42 Labs: Laboratory Results - last 24 hr 01/10/24 01/10/24 05:42 09:52 WBC 7.02 7.87 RBC 4.06 L 3.87 L Hgb 11.8 L 11.2 L Hct 36.2 L 34.1 L MCV 89 88 MCH 29.1 28.9 MCHC 32.6 32.8 RDW 13.8 13.8 Plt Count 204 206 MPV 9.5 9.9 Immature Gran % 0.4 Neutrophils % 78.9 Lymphocytes % 11.3 Monocytes % 8.1 Eosinophils % 0.7 Basophils % 0.6 Nucleated RBC % 0.0 Absolute Neutrophils 5.54 Absolute Lymphocytes 0.79 L Absolute Monocytes 0.57 Absolute Eosinophils 0.05 Absolute Basophils 0.04 PT 11.1 INR 1.1 APTT 32.1 Sodium 142 Potassium 3.5 Chloride 105 Carbon Dioxide 25.8 Anion Gap 11.2 H BUN 19 H Creatinine 1.3 Est GFR (CKD-EPI 2020) 55.88 Glucose 182 H Calcium 8.8 Total Bilirubin 1.13 H AST 31 ALT 35 Alkaline Phosphatase 159 H Creatine Kinase 239 Total Protein 6.9 Albumin 3.8 Last Vital Signs Temp 98.1 F 01/10/24 05:15 Pulse 70 01/10/24 07:01 Resp 19 01/10/24 07:01 BP 153/80 H 01/10/24 07:01 Pulse Ox 98 01/10/24 07:01 Time Spent Time spent with Patient: >75 minutes Time was spent: preparing to see the patient(eg.review tests), obtaining and/or reviewing separately otained hiistory, ordering medications,tests, procedures, referring, communicating with other health rn managed care, indepentently interpreting results, counseling the patient and care coordination
--- NOTE | 2024-01-10 11:54 | W.PC.ACHO ---
Registration Status: ADM JUAN Primary Language: Preferred Language: Chinese ED Information & Data Chief Complaint Fall/Non TraumaCriteria 01/10/24 05:51 Triage Note fell last night around 1999, 01/10/24 05:15 police helped him home, stated he tripped and fell, denied getting dizzy, c/o left leg pain, took 1300mg tylenol at 0200 Medical / Surgical History (Last Reviewed 12/05/23 @ 15:06 by Felipe Silva) Alcoholism in remission Calf swelling Leg pain, right Pelvic hematoma in male Swollen penis SOB (shortness of breath) on exertion Myocardial infarction Small bowel obstruction Normochromic normocytic anemia Bradycardia, sinus Rupture of right biceps tendon Cataracts, bilateral Epidermal inclusion cyst Lipoma of head Anxiety and depression Pancreatitis Hyperlipidemia (Last Reviewed 12/05/23 @ 15:06 by Felipe Silva) History of bilateral inguinal hernia repair Postoperative state S/P bilateral inguinal hernia repair, follow-up exam S/P cardiac pacemaker procedure (~03/2023) S/P colonoscopy (~05/02/19) Total knee replacement status S/P shoulder surgery S/P coronary artery stent placement S/P hernia repair Most Recent Vital Signs Temperature 36.7 C 01/10/24 11:26 Pulse 74 01/10/24 11:26 Pulse Rhythm Regular 01/10/24 11:26 Pulse 70 01/10/24 10:31 Respiratory Rate 20 01/10/24 11:26 Respiratory Effort Normal 01/10/24 11:26 Respiratory Depth Normal 01/10/24 11:26 Respiratory Pattern Normal 01/10/24 11:26 Blood Pressure 170/90 H 01/10/24 11:26 Blood Pressure Mean 110 01/10/24 10:31 Blood Pressure Position Supine 01/10/24 05:15 Pulse Oximetry 97 01/10/24 11:26 Oxygen Delivery Method Room Air 01/10/24 11:26 Oxygen Flow Rate 0 01/10/24 11:26 Pain Level 0 01/10/24 11:26 Allergies oxycodone Adverse Reaction (Intermediate, Verified 01/10/24 05:22) He goes a little wacky Precautions Isolation Standard precaution 01/10/24 05:33 Active Medications Generic Name Dose Route Start Last Admin Trade Name Freq PRN Reason Stop Dose Admin Iohexol 150 ml 01/10/24 08:00 01/10/24 07:54 Omnipaque 350 Mg/Ml 100 Ml Btl IJ 02/09/24 23:59 150 ml DIRECTED MARQUIS Administration Sodium Chloride 50 ml 01/10/24 08:00 01/10/24 07:52 Normal Saline - Diluent 50 Ml Vial IJ 50 ml .FOR DI USE MARQUIS Administration Sodium Chloride 0 ml 01/10/24 07:53 01/10/24 07:53 Normal Saline Flush 10 Ml Syr IVP 10 ml PRN PRN Administration IV IV Catheter Type [Right Peripheral IV Antecubital] IV Catheter Gauge [Right 18 Antecubital] Diet Orders Category Date Time Status Heart Healthy Eating [DIET] Nutrition 01/10/24 Lunch Active Diagnostics 01/10/24 01/10/24 01/10/24 Range/Units 10:19 09:52 05:42 WBC 7.87 7.02 (4.4-10.8) 10^3/uL RBC 3.87 L 4.06 L (4.36-5.78) 10^6/uL Hgb 11.2 L 11.8 L (13.5-17.5) g/dL Hct 34.1 L 36.2 L (40.0-50.0) % MCV 88 89 (80-95) fL MCH 28.9 29.1 (27.0-33.0) pg MCHC 32.8 32.6 (32.0-36.0) % RDW 13.8 13.8 (11.8-14.1) % Plt Count 206 204 (130-400) 10^3/uL MPV 9.9 9.5 (8.0-11.0) fL Immature Gran % 0.4 % Neutrophils % 78.9 % Lymphocytes % 11.3 % Monocytes % 8.1 % Eosinophils % 0.7 % Basophils % 0.6 % Nucleated RBC % 0.0 (0.0-0.3) % Absolute Neutrophils 5.54 (1.2-6.7) 10^3/uL Absolute Lymphocytes 0.79 L (1.2-3.4) 10^3/uL Absolute Monocytes 0.57 (0.1-0.8) 10^3/uL Absolute Eosinophils 0.05 (0.0-0.7) 10^3/uL Absolute Basophils 0.04 (0.0-0.2) 10^3/uL PT 11.1 (9.1-11.1) sec INR 1.1 (0.9-1.1) APTT 32.1 (23.6-32.8) sec Sodium 142 (136-145) mmol/L Potassium 3.5 (3.5-5.1) mmol/L Chloride 105 (98-107) mmol/L Carbon Dioxide 25.8 (21.0-32.0) mmol/L Anion Gap 11.2 H (3-11) mmol/L BUN 19 H (7-18) mg/dL Creatinine 1.3 (0.70-1.30) mg/dL Est GFR (CKD-EPI 2020) 55.88 (mL/min/1.73m2) Glucose 182 H (74-106) mg/dL Calcium 8.8 (8.5-10.1) mg/dL Total Bilirubin 1.13 H (0.2-1.0) mg/dL AST 31 (15-37) U/L ALT 35 (16-63) U/L Alkaline Phosphatase 159 H (46-116) U/L Creatine Kinase 239 (39-308) U/L Total Protein 6.9 (6.4-8.2) g/dL Albumin 3.8 (3.4-5.0) g/dL ABO/Rh O Positive Antibody Screen NEGATIVE Intake and Output - 24 Hour Total 01/10/24 05:10 thru 01/10/24 11:26 Intake Total 100 Output Total 400 Balance -300 Weight 89 kg Intake: IV 100 Output: Urine 400 Other: Urine Color Yellow Urine Appearance Clear Urine Odor None Voiding Methods Toilet Falls Risk Assessment History of Falls Admit Due to Fall 01/10/24 11:26 Contributing Factors Confusion,Impairments, 01/10/24 11:26 Incontinence Ambulatory Aids Uses ambulatory device + 01/10/24 11:26 Tubes/Lines With any additional score 01/10/24 11:26 Gait Evaluation W/any additional score 01/10/24 11:26 Cognition Cognitive impairment 01/10/24 11:26 Fall Total Score 119 01/10/24 11:26 Level of Risk Maximum Risk 01/10/24 11:26 Problems (Last Reviewed 12/05/23 @ 15:06 by Felipe Silva) Chronic anticoagulation (Acute) Hematoma of left lower extremity (Acute) Dementia with behavioral disturbance (Acute ~11/2023) Recurrent falls while walking (Acute ~2023) PAF (paroxysmal atrial fibrillation) (Chronic ~07/2023) Primary hypertension (Chronic) COPD (chronic obstructive pulmonary disease) (Acute) Coronary artery disease (Chronic) v v v v v v v v v Sending and/or Receiving Nurses: Please use comment section below to note any information pertinent to the patient hand-off not included above. Information / Comments: Vitals: 173/ 84, HR 70, temp 97.3. No signs of compartment syndrome found per MD, no fracture seen. Report received from: Rocio Da Silva RN
--- NOTE | 2024-01-10 12:38 | W.ORTHOCONSU ---
Date of service: 01/10/24 History of Present Illness Narrative: Corona is a 78-year-old male who had a fall yesterday onto his left thigh and left side. He had some pain was able to be helped up and was able to ambulate. He then went home. He seemed to be doing okay. However, later that evening developed increasing pain about the left thigh with notable swelling and was thus brought to the emergency department for evaluation. He has a history of coronary artery disease with stenting, on chronic anticoagulation, as well as dementia, COPD, diabetes, hypertension. He currently reports pain about the left thigh with certain motions. He feels is better now than it was last night. He denies numbness or tingling. No groin pain. Consults Consult date: 01/10/24 Requesting physician: Elisha Nuñez Consult Reason Left thigh hematoma Assessment and Plan Assessment and plan (1) Hematoma of left lower extremity: Status: Acute Assessment and plan: Corona is a 78-year-old who suffered a fall onto the left side resulting in an injury to the left thigh musculature and ongoing bleeding due to his anticoagulation with Eliquis. While the left thigh is quite swollen and firm, it is still compressible. He is able to demonstrate active knee flexion and extension and hip flexion, although limited. Given the bleeding does have a blush is reasonable to consider potential IR involvement if he had significant drop in his hemoglobin or if pain worsen. Thigh decompression could be considered although the with risk of continued bleeding, particularly in the bleeding involves muscular branches which can be very hard to identify and treat intraoperatively without significant exposure and comorbidity. If there was concern for thigh compartment syndrome open debridement and fasciotomy would be required. However, this is very unlikely very uncommon. As long as pain is controlled and his hemoglobin is stable I would recommend observation, immobilization physical therapy and no other specific treatment. Review of Systems All systems reviewed & are unremarkable except as noted in HPI and below PFSH All Active Problems Chronic anticoagulation (Acute) Hematoma of left lower extremity (Acute) Dementia with behavioral disturbance (Acute ~11/2023) Quetiapine Hypokalemia (Acute) Dementia, unspecified, without behavioral disturbance (Chronic) Delirium due to another medical condition (Acute) Folate deficiency (Acute) Mild anemia (Acute ~07/2023) Recurrent falls while walking (Acute ~2023) Impaired gait and mobility (Acute ~2023) Hallucinations (Acute) Memory difficulty (Acute ~07/2023) PAF (paroxysmal atrial fibrillation) (Chronic ~07/2023) [facility] [place] Cardio-07/20/23 Pacemaker (Acute ~03/2023) [facility] [place] 03/23/2023 Rotator cuff arthropathy of left shoulder (Acute) subacromial corticosteroid injection 10/28/22 Primary hypertension (Chronic) BPH (benign prostatic hyperplasia) (Chronic) RX Finasteride Glaucoma (Chronic) 09/05/19 [place] Depression (Chronic) Long-term RX Wellbutrin Diverticulosis (Chronic) 2019 colonoscopy Sinus node dysfunction (Chronic) [facility] [place] Cardiolgy; stay off of BB Obesity (Chronic) Tubular adenoma (Chronic 10/04/08) Colonoscopy 10/04/15 & repeat 2019 (13!) Diabetes type 2, controlled (Chronic) Dx'ed in COPD (chronic obstructive pulmonary disease) (Acute) Coronary artery disease (Chronic) [facility] [place] [employer] [place] 1998 with angina; cath in 1998 1-vessel dis Obstructive sleep apnea (Chronic) h/o CPAP; clausterphobic with masks so stopped using; then 100# weight loss; referred in 11/2019 but he declined Medical History Alcoholism in remission Calf swelling Leg pain, right Pelvic hematoma in male Swollen penis SOB (shortness of breath) on exertion Myocardial infarction X2 1997, 1998 Small bowel obstruction [facility] 05/2018; 02/2023 Normochromic normocytic anemia Bradycardia, sinus 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 cardiac tech Rupture of right biceps tendon PT Cataracts, bilateral 09/05/19 [place] OS>>OD Epidermal inclusion cyst Lipoma of head Removed 04/2019 [place] Anxiety and depression Pancreatitis [facility] 05/2018 (mild) Hyperlipidemia Atorvastatin Surgical History History of bilateral inguinal hernia repair Postoperative state S/P bilateral inguinal hernia repair, follow-up exam S/P cardiac pacemaker procedure (~03/2023) S/P colonoscopy (~05/02/19) 09/2015- [place]- Tubular adenomas x2 05/2019--Brain x13 tubular adenomas Total knee replacement status R 12/11/2013 L S/P shoulder surgery S/P coronary artery stent placement 04/30/19 per pt he does not have a stent. 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 Adopted: No Caregiver/Support person: Yes Foster care: No Household members: significant other and family Housing: house Number of Children: 5 number of grandchildren: 15 Communication Needs: Hard of Hearing and Corrective Lenses Education Level: other Details: middle school Do you need help understanding health information?: Rarely current occupation: Retired-[employer] Pets and animals: Yes Sexually active: Yes Do you think of yourself as: straight/heterosexual Current gender identity: male What is your relationship status?: living with partner How often do you get together with friends or relatives?: twice per week Panel score (0-1 are the most socially isolated patients): 1 What type of physical activity do you participate in: walking Duration: > 90 minutes/day Frequency: 3-4 times per week Desirae/Voodoo: Worship Special desirae needs: No Seatbelt use: always Drive intox or ride w/intox uke driver: No Do you feel safe at home: Yes Do you feel safe in your relationship?: Yes Additional Social history: answering for pt Exam Narrative Exam Narrative: Resting in the hospital bed. No acute distress. Alert. Head is normocephalic and atraumatic. Evaluation of the left leg shows a notable swelling over the anterior lateral aspect of the left thigh, slightly more proximal than distal. There is no ecchymosis. There is no overlying skin changes. No abrasion. The thigh is quite swollen. This mostly involves the anterolateral aspect of the thigh with pain to direct pressure in this area. It is still slightly compressible surrounding the leg, particularly posteriorly medially. He is able to demonstrate some active hip flexion. He also has active knee extension and flexion although he complains of pain after about 70 degrees of flexion. No pain with internal and external rotation of the hip. Sensation is reportedly intact about the deep and superficial peroneal nerve and tibial nerve. Palpable DP and PT pulse. Results Last Vital Signs Temp 36.7 C 01/10/24 11:26 Pulse 74 01/10/24 11:26 Resp 20 01/10/24 11:26 BP 170/90 H 01/10/24 11:26 Pulse Ox 97 01/10/24 11:26 Labs 01/10/24 09:52 01/10/24 05:42 Labs: Laboratory Results - last 24 hr 01/10/24 01/10/24 01/10/24 05:42 09:52 10:19 WBC 7.02 7.87 RBC 4.06 L 3.87 L Hgb 11.8 L 11.2 L Hct 36.2 L 34.1 L MCV 89 88 MCH 29.1 28.9 MCHC 32.6 32.8 RDW 13.8 13.8 Plt Count 204 206 MPV 9.5 9.9 Immature Gran % 0.4 Neutrophils % 78.9 Lymphocytes % 11.3 Monocytes % 8.1 Eosinophils % 0.7 Basophils % 0.6 Nucleated RBC % 0.0 Absolute Neutrophils 5.54 Absolute Lymphocytes 0.79 L Absolute Monocytes 0.57 Absolute Eosinophils 0.05 Absolute Basophils 0.04 PT 11.1 INR 1.1 APTT 32.1 Sodium 142 Potassium 3.5 Chloride 105 Carbon Dioxide 25.8 Anion Gap 11.2 H BUN 19 H Creatinine 1.3 Est GFR (CKD-EPI 2020) 55.88 Glucose 182 H Calcium 8.8 Total Bilirubin 1.13 H AST 31 ALT 35 Alkaline Phosphatase 159 H Creatine Kinase 239 Total Protein 6.9 Albumin 3.8 ABO/Rh O Positive Antibody Screen NEGATIVE Imaging Imaging Studies: X-ray of the left femur is not showing signs of fracture. No significant degenerative disease of the hip. There is a knee replacement position without signs of loosening. CT scan with angiography was also reviewed. This shows a large hematoma to fluid/fluid levels about the anterolateral thigh, likely within the vastus lateralis musculature primarily. There is a blush within this area, likely from a perforating branch in the muscle.
[2024-01-10] MEDS: amLODIPine 10 MG TAB PO (12:56)
[2024-01-10] MEDS: Potassium Chloride 20 MEQ TABCR PO (12:56)
[2024-01-10] MEDS: buPROPion-XL 150 MG TABCR PO (12:56)
--- NOTE | 2024-01-10 15:01 | PHA.REVIEW2 ---
Pharmacy Admission Review Admission Clinical Review Admission Pharmacy Review: Chronic anticoagulation (Acute) Hematoma of left lower extremity (Acute) Dementia with behavioral disturbance (Acute ~11/2023) Recurrent falls while walking (Acute ~2023) COPD (chronic obstructive pulmonary disease) (Acute) oxycodone Adverse Reaction (Intermediate, Verified 01/10/24 05:22) He goes a little wacky Resuscitation Status Full Code Height 5 ft 9 in Weight 89 kg Pharmacy Admission Review Renal Dosing Renal Dosing: BUN 19 mg/dL (7-18) H 01/10/24 05:42 Creatinine 1.3 mg/dL (0.70-1.30) 01/10/24 05:42 Medications needing adjustments: Reviewed (CrCl 50.8 mL/min) List of meds needing interventions: Current medications are okay Anticoagulation Anticoagulation: Hgb 11.2 g/dL (13.5-17.5) L 01/10/24 09:52 Hct 34.1 % (40.0-50.0) L 01/10/24 09:52 Plt Count 206 10^3/uL (130-400) 01/10/24 09:52 INR 1.1 (0.9-1.1) 01/10/24 05:42 Creatinine 1.3 mg/dL (0.70-1.30) 01/10/24 05:42 DVT Prophylaxis: Reviewed (None at this time - hematoma) Relevant Labs Relevant Labs: Sodium 142 mmol/L (136-145) 01/10/24 05:42 Potassium 3.5 mmol/L (3.5-5.1) 01/10/24 05:42 Chloride 105 mmol/L (98-107) 01/10/24 05:42 Electrolytes, C-Reactive P, ESR: Reviewed DM Control DM Control: Glucose 182 mg/dL (74-106) H 01/10/24 05:42 DM Control: Reviewed Insulin Dosing, Diabetic Medication: Does not take any medications for T2DM Cardiac Review Cardiac Review: Blood Pressure 170/90 1126 Blood Pressure 173/84 1031 Blood Pressure 149/95 1016 Blood Pressure 151/94 1001 Blood Pressure 172/111 0946 Blood Pressure 173/87 0745 Blood Pressure 159/87 0731 Blood Pressure 169/84 0716 Blood Pressure 153/80 0701 BP, HR, EF%: Reviewed (BP 170/90 and HR WNL) QTc Review QTc: Reviewed (472 from 02/16/23 - most recent EKG on file) IV to PO Switch IV Medications: Reviewed Home Meds Home Med List reviewed: Reviewed Relevent Home Meds Not ordered & why?: Eliuqis (on hold per H+P due to hematoma), latanoprost, loperamide (PRN) Current Meds Current Medication Order Review: Reviewed
--- NOTE | 2024-01-10 15:45 | PT.INIE ---
PT Notes Visit Reasons: LLE hematoma on [facility] Physical Therapy Inpatient Initial Evaluation Date: 01/10/2024 Referring Doctor: Cory Kinney MD PT Orders: PT CONSULT: Limited ability Precautions: Fall. Standard. Activity as tolerated. Patient Profile/Admitting Diagnosis: Corona is a 78-year-old male on chroninc anticoagulation is admitted today for fall resulting L thigh pain with swelling and fibrosis . He also is being managed for PAF, CAD, HTN, and dementia with behavioral disturbance. PMHX: All Active Problems (Updated 01/10/24 @ 11:21 by Dulce Padron MD) Chronic anticoagulation (Acute) Hematoma of left lower extremity (Acute) Dementia with behavioral disturbance (Acute ~11/2023) QuetiapineHypokalemia (Acute) Dementia, unspecified, without behavioral disturbance (Chronic) Delirium due to another medical condition (Acute) Folate deficiency (Acute) Mild anemia (Acute ~07/2023) Recurrent falls while walking (Acute ~2023) Impaired gait and mobility (Acute ~2023) Hallucinations (Acute) Memory difficulty (Acute ~07/2023) PAF (paroxysmal atrial fibrillation) (Chronic ~07/2023) [facility] [place] Cardio-07/20/23Pacemaker (Acute ~03/2023) [facility] [place] 03/23/2023 Rotator cuff arthropathy of left shoulder (Acute) subacromial corticosteroid injection 10/28/22 Primary hypertension (Chronic) BPH (benign prostatic hyperplasia) (Chronic) RX Finasteride Glaucoma (Chronic) 09/05/19 [place] Depression (Chronic) Long-term RX Wellbutrin Diverticulosis (Chronic) 2019 colonoscopy Sinus node dysfunction (Chronic) [facility] [place] Cardiolgy; stay off of BBObesity (Chronic) Tubular adenoma (Chronic 10/04/08) Colonoscopy 10/04/15 & repeat 2019 (13!) Diabetes type 2, controlled (Chronic) Dx'ed in COPD (chronic obstructive pulmonary disease) (Acute) Coronary artery disease (Chronic) [facility] [place] 1998 with angina; cath in 1998 1-vessel dis Obstructive sleep apnea (Chronic) h/o CPAP; clausterphobic with masks so stopped using; then 100# weight loss; referred in 11/2019 but he declined Medical History Alcoholism in remission Calf swelling Leg pain, right Pelvic hematoma in male Swollen penis SOB (shortness of breath) on exertion Myocardial infarction X2 1997, 1998 Small bowel obstruction [place] 05/2018; 02/2023 Normochromic normocytic anemia Bradycardia, sinus 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 electronic device monitor Rupture of right biceps tendon PTCataracts, bilateral 09/05/19 [place] OS>>OD Epidermal inclusion cyst Lipoma of head Removed 04/2019 [place] Anxiety and depression Pancreatitis [facility] 05/2018 (mild) Hyperlipidemia Atorvastatin Surgical History History of bilateral inguinal hernia repair Postoperative state S/P bilateral inguinal hernia repair, follow-up exam S/P cardiac pacemaker procedure (~03/2023) S/P colonoscopy (~05/02/19) 09/2015- [place]indy- Tubular adenomas x2 05/2019--Brain x13 tubular adenomas Total knee replacement status R 12/11/2013 LS/P shoulder surgery S/P coronary artery stent placement 04/30/19 per pt he does not have a stent. S/P hernia repair Laparoscopic ventral hernia repair x 2 Social History/Home Situation: Lives with in a private home with 6 steps to enter with B rails that are far apart. Ambulatory with [facility]. Equipment Owned/DME: [facility], [facility] Subjective: Pain and stiffness in L lateral thigh. Per the hardness is not as much as it was this morning, she could feel a littel give to it now. Objective: General Observation: Resting in bed now more awake than he was earlier today. Blanton catheter in place. Incisions to be inguinal areas intact. Telemetry monitoring in place Mental Status: Alert and oriented as to place, date, person and purpose. Able to follow single step commands. Pain: moderate pain on thigh that is aggravated by weight bearing, alleviated with rest Vital Signs: Closely monitored by nursing staff ROM: Right Lower Extremity: Hip flexion WFL. Hip abduction WFL. Knee flexion WFL. Ankle dorsiflexion WFL. Ankle plantarflexion WFL. Left Lower Extremity: Hip flexion WFL. Hip abduction WFL. Knee flexion WFL. Ankle dorsiflexion WFL. Ankle plantarflexion WFL. Strength: Right Lower Extremity: Hip flexors 3+/5. Hip abductors 3+/5. Knee flexors 4-/5. Knee extensors 3+/5. Ankle dorsiflexors 4-/5. Ankle plantarflexors 4-/5. Left Lower Extremity: Hip flexors 3+/5. Hip abductors 3+/5. Knee flexors 4-/5. Knee extensors 3+/5. Ankle dorsiflexors 4-/5. Ankle plantarflexors 4-/5. Bed Mobility/Transfers: Minimal cueing provided for use of B hands as needed for support, movement sequence, Ad management, and and posture to reduce fall risk and minimize pain report Supine to sit contact-guard assist Sit to supine contact-guard assist Sit to stand minimal assist with FWW Stand to sit minimal assist with FWW Bed to reclining chair minimal assist with FWW Gait: Facilitated safe performance of short distance in room ambulation of 30 feet + 30 feet using front wheeled walker with minimal assist and moderate verbal cueing for movement sequence, AD management, and directional change. Wheelchair follow provided. Mild buckling on L knee that required seated rest. No buckling walking back to bedside chair in room. Antalgic gait on L. Balance: Static Sitting: Good Dynamic Sitting: Fair Static Standing: Fair Dynamic Standing: fair Special Tests: Mobility Limitations Standardized Measure [facility] AM-PAC 6 clicks Basic Mobility Inpatient Short Form: Raw Score: 18 CMS Score: 47% deficit Informed Consent/Education: Patient was instructed in purpose of PT consult and plan of care. Agreeable to proceed with established PT POC to achieve personal goals. Assessment: Patient requires assistance of 1 and the use of a front wheeled walker for mobility ADL performance to reduce fall risk. Patient presents with clinical signs and symptoms consistent with current/admitting diagnoses that have resulted to mobility limitations, gait instability, generalized weakness, and overall ADL decline as demonstrated by the following impairment level findings: 1. Decreased strength to B LE major muscle groups 2. Impaired sitting/standing balance 3. Impaired activity tolerance Impairments are contributing to the following functional limitations: 1. Decline in bed mobility skills 2. Decline in transfer skills 3. Difficulty with ambulation without assistive device and physical assistance 4. Increased completion time for mobility ADL performance 5. Increased risk for falls 6. Difficulty with managing steps alone safely Patient is assessed as a 11243 moderate complexity based on the following: History: 77-year-old male with past medical history as indicated above Examination: Demonstrable impairment in strength, balance, and mobility level with underlying impairments and functional limitations as exhibited above as well as deficit score of 47% utilizing the [facility] Mobility Inpatient Short Form Presentation: Evolving Decision Makin moderate complexity Goals: Goals X1 week 1. Supine-Sit independent 2. Sit-Supine independent 3. Sit-Stand independent 4. Stand-Sit independent with FWW 5. Bed-Chair independent with FWW 6. Chair-Bed independent with FWW 7. Independent gait on level surface with use of FWW for at least 150 feet without report of pain nor dyspnea 8. Good static and dynamic standing balance/tolerance Plan of Care/Treatment Plan: 1-2x/day, 7 days/week x 1 week. Plan of care has been reviewed with the MEDIA PRODUCTION MANAGER providing the service under Physical Therapy direction. Initiate Physical Therapy intervention for pain management as needed, strengthening, bed mobility, transfers, gait, stairs, balance training, and use of assistive device. DISCHARGE RECOMMENDATIONS: [] Home with no services [] [X] Home with services patient will benefit from home health PT services in order to progress mobility level using least restrictive assistive ambulatory device, assess home safety, identify additional equipment needs, and establish a functional maintenance program that will increase ability of patient to remain at home. [] Home with outpatient PT [] [] SNF for continued rehabilitation [] [] [facility] [] [] SNF versus LTC based on ability to participate and progress [] TREATMENT CODE/TIME: 9716 2 x 20 minutes for 1 unit, 74388 x 15 minutes for 1 unit (15:45-16:20). Thank you for the opportunity to participate in the care of this patient. Fouzia Silver PT, DPT, CLT [facility] [place], [place]
[2024-01-10] MEDS: Lidocaine 5% Patch 1 PATCH TP (17:41)
[2024-01-10] MEDS: Atorvastatin 40 MG TAB 80 MG PO (20:11)
[2024-01-10] MEDS: Mirtazapine 15 MG TAB 7.5 MG PO (20:11)
[2024-01-10] MEDS: Finasteride 5 MG TAB PO (20:11)
[2024-01-10] MEDS: QUEtiapine 50 MG TAB PO (20:11)
[2024-01-10] MEDS: Budesonide/Formoterol 160/4.5 6 GM 60 PUFF INH IH (20:40)
[2024-01-11 03:04] VITALS: BP 134/75; PULSE 72; RESP 18; TEMP 37; O2SAT 97
[2024-01-11 06:51] LABS: HCT 33.7 % (40.0-50.0); MCHC 32.6 % (32.0-36.0); MCV 89 fL (80-95); Platelet Count 155 10^3/uL (130-400); RBC 3.79 10^6/uL (4.36-5.78); RDW-SD 45.6 fL
[2024-01-11 07:18] LABS: BUN 13 mg/dL (7-18); CREATININE 0.9 mg/dL (0.70-1.30); Chloride 110 mmol/L (98-107); Estimated GFR 86.88 (mL/min/1.73m2); Glucose 131 mg/dL (74-106); Potassium 3.1 mmol/L (3.5-5.1); Sodium 146 mmol/L (136-145)
[2024-01-11] MEDS: Patch Removal LIDOCAINE 1 EACH TP (07:18)
[2024-01-11 07:59] VITALS: BP 116/66; PULSE 78; RESP 18; TEMP 36.7; O2SAT 97
[2024-01-11] MEDS: Potassium Chloride 20 MEQ TABCR PO (08:19)
[2024-01-11] MEDS: buPROPion-XL 150 MG TABCR PO (08:19)
[2024-01-11] MEDS: Folic Acid 1 MG TAB PO (08:19)
[2024-01-11] MEDS: Cholecalciferol (Vitamin D3) 1,000 UNIT TAB 2000 UNITS PO (08:19)
[2024-01-11] MEDS: amLODIPine 10 MG TAB PO (08:20)
[2024-01-11] MEDS: Acetaminophen 325 MG TAB PO (08:21)
[2024-01-11] MEDS: Furosemide 40 MG TAB 20 MG PO (08:21)
[2024-01-11] MEDS: Normal Saline Flush 10 ML SYR IVP (08:21)
[2024-01-11] MEDS: Triamcinolone 0.1% CR 15 GM TUBE TP (08:22)
[2024-01-11] MEDS: Budesonide/Formoterol 160/4.5 6 GM 60 PUFF INH IH (09:00)
--- NOTE | 2024-01-11 09:52 | PDOC.HHF2F_ITS ---
Home Health Referral Home Health Orders Clinical synopsis of why skilled professionals are needed: CAD, a-fib on eliquis, dementia, frequent falls, left thigh hematoma Registered Nurse: Check all that apply Instruct on new or changed medication(s)/assess compliance: Ordered Assess for exacerbation of medical condition, instruct patient/caregivers on signs and symptoms to report for early detection: Ordered Physical Therapist: Check all that apply Increase strength & endurance for safe mobility at home: Ordered To design/establish home maintenance program: Ordered Fall reduction therapy program for patient with history of frequent falls: Ordered Home safety evaluation and teaching/gait training including stair management (if applicable): Ordered Home Bound Status Requires the aid of supportive device (check all that apply): Walker Patient has a condition such that leaving home is medically contraindicated (Describe): physical fall risk/pain/cognitive decline/deconditioning/recent surgery Encounter Date and Reason: I certify that a FTF encounter for this patient was performed on January 11, 2024 and that such encounter was related to the primary reason the patient requires home health services. The encounter was conducted in the following manner: * By me as the certifying physician, [employer], PA or * By an inpatient physician, [employer] or PA during an inpatient stay who communicated findings to me, Certification And Authentication I certify that I composed the above information based on my clinical judgment relating to this patient's medical condition and, if applicable, clinical findings communicated to me by the NPP or inpatient physician who performed the FTF encounter. Name of Provider that will be monitoring home health services: Jessie Bose
--- NOTE | 2024-01-11 09:53 | DSE_ITS ---
Date of service: 01/11/24 Time of Service: 09:54 DS: Diagnosis Discharge Diagnosis (1) Hematoma of left lower extremity: Status: Acute Asessment and Plan: Patient initially presented after experiencing a fall and having persistent left thigh pain that was ultimately determined to be secondary to a hematoma. Given that the patient is on chronic anticoagulation he was monitored overnight to assess for changes in hemoglobin level, which remained stable. He was also evaluated by physical therapy and determined the patient would benefit from home health and PT services. Ultimately was determined that the patient was stable for discharge. He will restart his eliquis this evening upon arrinving home. Discharge Plan Disposition Patient Disposition: Home W/Home Health Services Condition: Good Discharge Details Reason For Visit: LLE hematoma on Eliquis Admit Date/Time: 01/10/24 10:26 Admit Provider: Cory Kinney Attending Provider: Cory Kinney Primary Care Provider: Jessie Bose Hospital Course Hospital Course: Patient initially presented after experiencing a fall and having persistent left thigh pain that was ultimately determined to be secondary to a hematoma. Given that the patient is on chronic anticoagulation he was monitored overnight to assess for changes in hemoglobin level, which remained stable. He was also evaluated by physical therapy and determined the patient would benefit from home health and PT services. Ultimately was determined that the patient was stable for discharge. Home Meds and New Rx's Prescriptions: Continued budesonide-formoterol [Symbicort] 160-4.5 mcg/actuation HFA aerosol inhaler 2 puff Inhalation BID Qty: 10.2 11RF atorvastatin 80 mg tablet See Rx Instructions .ROUTE .COMPLEX Qty: 90 3RF Dose Instruction: TAKE ONE TABLET BY MOUTH AT BEDTIME Rx Instructions: TAKE ONE TABLET BY MOUTH AT BEDTIME triamcinolone acetonide 0.1 % cream 1 applic topical DAILY spironolactone 25 mg tablet 12.5 mg PO DAILY Patient Comments: TAKE ONE TABLET BY MOUTH EVERY DAY folic acid 1 mg tablet 1 mg PO DAILY Qty: 90 3RF albuterol sulfate [ProAir HFA] 90 mcg/actuation HFA aerosol inhaler 1 - 2 puff Inhalation Q6H PRN Qty: 6.7 2RF Rx Instructions: SOB/wheeze nitroglycerin 0.4 mg tablet, sublingual 0.4 mg SUBLINGUAL DIRECTED Qty: 30 0RF loperamide [Imodium A-D] 2 mg tablet 2 mg PO Q6H PRN (Reason: loose stool) Qty: 90 12RF finasteride [Proscar] 5 mg tablet 5 mg PO HS Qty: 90 3RF quetiapine 50 mg tablet See Rx Instructions PO QHS Qty: 90 1RF Rx Instructions: Take 50mg by mouth nightly at bedtime for depression; may take 1/2 tab (25mg) BID PRN agitation acetaminophen [Tylenol] 325 mg capsule 1,000 mg PO Q6H PRN (Reason: fever or pain) bupropion HCl 150 mg tablet extended release 24 hr 150 mg PO QAM Qty: 90 3RF Rx Instructions: Changed to ONCE PER DAY dosing--take in AM mirtazapine 7.5 mg tablet 7.5 mg PO QHS Qty: 90 3RF Rx Instructions: New RX 12/13/23 for depression, anxiety, sleep sotalol 80 mg tablet 80 mg PO BID Qty: 180 1RF Eliquis 5 mg tablet 5 mg PO BID Qty: 60 0RF Rx Instructions: 1-month courtesy supply until can get RX from [facility] cardiology potassium chloride 20 mEq tablet extended release 20 meq PO DAILY Qty: 90 3RF Rx Instructions: Hypokalemia amlodipine 10 mg tablet See Rx Instructions .ROUTE .COMPLEX Qty: 90 3RF Dose Instruction: TAKE ONE TABLET BY MOUTH EVERY DAY Rx Instructions: TAKE ONE TABLET BY MOUTH EVERY DAY cholecalciferol (vitamin D3) [Vitamin D3] 50 mcg (2,000 unit) Capsule 50 mcg PO DAILY latanoprost 0.005 % drops 1 drp ophthalmic (eye) QPM Patient Comments: INSTILL ONE DROP IN EACH EYE EVERY EVENING furosemide 40 mg tablet 20 mg PO .COMPLEX Patient Comments: TAKE ONE TABLET BY MOUTH TWICE A DAY Rx Instructions: 20 mg orally Every Other Day; No Action (DME) AFO Brace (R foot) See Rx Instructions .Route .MEDSUPPLY Qty: 1 0RF Rx Instructions: R AFO brace for foot drop Discharge Instructions Activity:: Activity as Tolerated Equipment/Supplies:: No Equipment Needed Diet:: As Tolerated Discharge Orders Discharge Orders: Discharge Order (Routine); Ordered 01/11/24 Ordered By: Cory Kinney DS: Summary Time Spent with Patient providing and/or coordinating discharge services: Greater than 30 minutes Status at Discharge Functional status at discharge: independent ambulation Overall status at discharge: patient is back to baseline Mental Status: mental status grossly normal Speech and Movement: speech and movement normal Mood: congruent mood Affect: normal affect Quality:SDOH Health Related Social Needs: No Data to Display Exam Narrative Exam Narrative: well appearing older gentleman laying in bed in no acute distress, awake, alert, oriented to person and place, heart RRR, lungs CTAB, abdomen soft, non-tender, non-distended, pain to palpation of the left thigh without visible erythema or ecchymosis Psych Mental Status: mental status grossly normal Speech and Movement: speech and movement normal Mood: congruent mood Affect: normal affect DS: Data Vitals/I&O Vitals and I&O: Vital Signs Temperature 98.1 F 01/11/24 07:59 Temperature Source Tympanic 01/11/24 07:59 Pulse 78 01/11/24 07:59 Pulse Rhythm Regular 01/11/24 08:28 Pulse 70 01/10/24 10:31 Respiratory Rate 18 01/11/24 07:59 Respiratory Effort Normal, Non-Labored 01/11/24 08:28 Respiratory Depth Normal 01/11/24 08:28 Respiratory Pattern Normal 01/11/24 08:28 Blood Pressure 116/66 01/11/24 07:59 Blood Pressure Mean 110 01/10/24 10:31 Blood Pressure Position Supine 01/10/24 05:15 Pulse Oximetry 97 01/11/24 07:59 Oxygen Delivery Method Room Air 01/11/24 07:59 Oxygen Flow Rate 0 01/11/24 07:59 Pain Level 7 01/11/24 07:59 Intake & Output 01/10/24 01/11/24 01/11/24 17:59 05:59 17:59 Intake Total 100 / 100 Output Total 700 / 700 Balance -600 / -600 10 / -590 Weight 196 lb 3.382 oz Intake: IV 100 / 100 Output: Urine 700 / 700 Other: Urine Color Yellow Yellow Yellow Urine Appearance Clear Clear Clear Urine Odor Normal Normal Normal Voiding Methods Urinal Toilet Toilet Data Completed and Pending Labs on day of discharge: Labs from last 24 hours 01/11/24 01/10/24 01/10/24 06:12 10:19 09:52 WBC 6.50 7.87 RBC 3.79 L 3.87 L Hgb 11.0 L 11.2 L Hct 33.7 L 34.1 L MCV 89 88 MCH 29.0 28.9 MCHC 32.6 32.8 RDW 14.0 13.8 Plt Count 155 206 MPV 11.0 9.9 Sodium 146 H Potassium 3.1 L Chloride 110 H Carbon Dioxide 27.0 Anion Gap 9.0 BUN 13 Creatinine 0.9 Est GFR (CKD-EPI 2020) 86.88 Glucose 131 H Calcium 9.0 Magnesium 2.0 ABO/Rh O Positive Antibody Screen NEGATIVE PFSH All Active Problems Chronic anticoagulation (Acute) Hematoma of left lower extremity (Acute) Dementia with behavioral disturbance (Acute ~11/2023) Quetiapine Hypokalemia (Acute) Dementia, unspecified, without behavioral disturbance (Chronic) Delirium due to another medical condition (Acute) Folate deficiency (Acute) Mild anemia (Acute ~07/2023) Recurrent falls while walking (Acute ~2023) Impaired gait and mobility (Acute ~2023) Hallucinations (Acute) Memory difficulty (Acute ~07/2023) PAF (paroxysmal atrial fibrillation) (Chronic ~07/2023) [facility] Cardio-07/20/23 Pacemaker (Acute ~03/2023) [facility] 03/23/2023 Rotator cuff arthropathy of left shoulder (Acute) subacromial corticosteroid injection 10/28/22 Primary hypertension (Chronic) BPH (benign prostatic hyperplasia) (Chronic) RX Finasteride Glaucoma (Chronic) 09/05/19 [place] Depression (Chronic) Long-term RX Wellbutrin Diverticulosis (Chronic) 2019 colonoscopy Sinus node dysfunction (Chronic) [facility] Cardiolgy; stay off of BB Obesity (Chronic) Tubular adenoma (Chronic 10/04/08) Colonoscopy 10/04/15 & repeat 2019 (13!) Diabetes type 2, controlled (Chronic) Dx'ed in COPD (chronic obstructive pulmonary disease) (Acute) Coronary artery disease (Chronic) [facility] [employer] 1998 with angina; cath in 1998 1-vessel dis Obstructive sleep apnea (Chronic) h/o CPAP; clausterphobic with masks so stopped using; then 100# weight loss; referred in 11/2019 but he declined Medical History Alcoholism in remission Calf swelling Leg pain, right Pelvic hematoma in male Swollen penis SOB (shortness of breath) on exertion Myocardial infarction X2 1997, 1998 Small bowel obstruction [facility] 05/2018; 02/2023 Normochromic normocytic anemia Bradycardia, sinus 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 Rupture of right biceps tendon PT Cataracts, bilateral 09/05/19 [place] OS>>OD Epidermal inclusion cyst Lipoma of head Removed 04/2019 [place] Anxiety and depression Pancreatitis [facility] 05/2018 (mild) Hyperlipidemia Atorvastatin Surgical History History of bilateral inguinal hernia repair Postoperative state S/P bilateral inguinal hernia repair, follow-up exam S/P cardiac pacemaker procedure (~03/2023) S/P colonoscopy (~05/02/19) 09/2015- [place]- Tubular adenomas x2 05/2019--Brain x13 tubular adenomas Total knee replacement status R 12/11/2013 L S/P shoulder surgery S/P coronary artery stent placement 04/30/19 per pt he does not have a stent. 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 Pets and animals: Yes Sexually active: Yes Do you think of yourself as: straight/heterosexual Current gender identity: male What is your relationship status?: living with partner How often do you get together with friends or relatives?: twice per week Panel score (0-1 are the most socially isolated patients): 1 What type of physical activity do you participate in: walking Duration: > 90 minutes/day Frequency: 3-4 times per week Desirae/Tenriism: Jewish Special desirae needs: No Seatbelt use: always 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
== END 2024-01-11 10:35 | disposition home health service (06) ==
LOC: ER 08:01 → MS 11:19
PROVIDERS: Student in an Organized Health Care Education/Training Program; Admitting Provider Family Medicine; Emergency Provider Emergency Medicine; PCP Nurse Practitioner Adult Health; Visit Provider Family Medicine
DX: S70.12XA Contusion of left thigh, initial encounter (principal); I48.0 Paroxysmal atrial fibrillation; R29.6 Repeated falls; I25.118 Atherosclerotic heart disease of native coronary artery with other forms of angina pectoris; I10 Essential (primary) hypertension; F03.918 Unspecified dementia, unspecified severity, with other behavioral disturbance; J43.9 Emphysema, unspecified; Z79.899 Other long term (current) drug therapy; Z95.1 Presence of aortocoronary bypass graft; Z79.01 Long term (current) use of anticoagulants; W19.XXXA Unspecified fall, initial encounter; E87.6 Hypokalemia; E53.8 Deficiency of other specified B group vitamins; D64.9 Anemia, unspecified; R41.3 Other amnesia; N40.0 Benign prostatic hyperplasia without lower urinary tract symptoms; F32.A Depression, unspecified; E11.9 Type 2 diabetes mellitus without complications; G47.33 Obstructive sleep apnea (adult) (pediatric); F10.21 Alcohol dependence, in remission; I25.2 Old myocardial infarction; E78.5 Hyperlipidemia, unspecified; Z96.653 Presence of artificial knee joint, bilateral; Z95.5 Presence of coronary angioplasty implant and graft
CPT/HCPCS: 00123; 36415; 73552; 73706; 80048; 80053; 82550; 85027; 86850; 86900; 86901; 94640; 96365; 97162; 97530; 99222; 99285; 70450; 72170; 83735; 85025; 85610; 85730; 99223; 99238; G0378; J0131; J3490

== ENCOUNTER 2024-01-24 15:47 | Outpatient (CLI) | payer OTHER, SELFPAY ==
[2024-01-24 14:42] LABS: Abs Immature Grans 0.03 10^3/uL (0.0-0.06); Absolute Basophil Count 0.06 10^3/uL (0.0-0.2); Absolute Eosinophil Count 0.19 10^3/uL (0.0-0.7); Absolute Lymphocyte Count 0.87 10^3/uL (1.2-3.4); Absolute Monocyte Count 0.77 10^3/uL (0.1-0.8); Absolute Neutrophil Count 5.44 10^3/uL (1.2-6.7); Basophils % 0.8 %; Eosinophils % 2.6 %; HCT 29.5 % (40.0-50.0); HGB 9.5 g/dL (13.5-17.5); Immature Grans % 0.4 %; Lymphocytes % 11.8 %; MCH 29.1 pg (27.0-33.0); MCHC 32.2 % (32.0-36.0); MCV 91 fL (80-95); MPV 9.7 fL (8.0-11.0); Monocytes % 10.5 %; Neutrophils % 73.9 %; Platelet Count 211 10^3/uL (130-400); RBC 3.26 10^6/uL (4.36-5.78); RDW 15.4 % (11.8-14.1); RDW-SD 49.9 fL; WBC 7.36 10^3/uL (4.4-10.8)
[2024-01-24 14:48] LABS: ESR 23 mm/hr (0-20)
[2024-01-24 15:35] LABS: C-Reactive Protein 3.69 mg/dL (<or=0.5)
--- OUTSIDE RECORDS SUMMARY | 2024-01-24 15:51 | XMS_ITS | Clinical Summary ---
Author Organization [facility] Address [facility] [place] [address] Care Team Providers Care Golf Club Weighter Name Role Phone Jessie Bose APRN Primary Care Provider [phone] Allergies Active Allergy Reactions Criticality Noted Date Comments Nebivolol Other (See Comments) 12/02/2017 Sinus node dysfunction- sinus madina and a 5 second pause Unclassified Drug Nausea Only,Other (S ee Comments) 03/15/2018 All Narcotics Medications Medication Sig Dispensed Refills Start Date End Date Status albuterol (PROVENTIL HFA;VENTOLIN HFA) 90 mcg/Actuation inhaler Inhale 2 puffs into the lungs every 4 hours as needed. Use with spacer Active buPROPion SR (Wellbutrin SR) 150 mg tablet sustained-release 12 hr Take 150 mg by mouth 2 times daily. Active atorvastatin (LIPITOR) 80 mg Tablet Take 1 tablet by mouth nightly. 0 08/28/2015 Active nitroGLYcerin (NITROSTAT) 0.3 mg Tablet, SublingualIndicatio ns:Coronary artery disease with exertional angina Place 1 tablet under the tongue every 5 minutes as needed for Chest pain. 90 tablet 12 11/11/2017 Active cholecalciferol, Vitamin D3, 50 mcg (2,000 unit) Capsule Take 2,000 Units by mouth daily. Active amLODIPine (NORVASC) 10 mg TabletIndications:E ssential hypertension Take 1 tablet by mouth daily. 90 tablet 3 12/27/2017 Active aspirin 81 mg Tablet, Delayed Release (E.C.)Indications:C oronary artery disease involving elim ira coronary artery of elim ira heart without angina pectoris Take 1 tablet by mouth daily. 30 tablet 3 03/15/2018 Active Additional Information Patient not taking.Reported on 07/20/2023 finasteride (PROSCAR) 5 mg Tablet daily. 0 08/15/2018 Active acetaminophen 325 mg Capsule Take 500 mg by mouth as needed. 05/10/2019 Active budesonide-formoter oL (SYMBICORT) 160-4.5 mcg/actuation HFA Aerosol Inhaler Inhale into the lungs. 01/09/2013 Active triamcinolone (KENALOG) 0.1 % Cream Apply topically. 04/10/2019 Active latanoprost (Xalatan) 0.005 % Drops INSTILL ONE DROP INTO BOTH EYES AT BEDTIME 09/02/2022 Active metFORMIN (Glucophage) 500 mg tablet Take 2 tablets by mouth 2 times daily (with meals). 60 tablet 12 03/26/2023 Active Additional Information Patient not taking.Reported on 11/03/2023 sotaloL (Betapace) 80 mg tablet Take 1 tablet by mouth every 12 hours. 60 tablet 3 03/24/2023 Active furosemide (Lasix) 40 mg tabletIndications:E ssential hypertension TAKE ONE TABLET BY MOUTH TWICE A DAY 180 tablet 1 04/09/2023 Active bimatoprost (LUMIGAN) 0.01 % Drops daily. 10/28/2022 Active spironolactone (Aldactone) 25 mg tabletIndications:E ssential hypertension TAKE ONE TABLET BY MOUTH EVERY DAY 90 tablet 2 10/27/2023 Active apixaban (Eliquis) 5 mg tablet Take 1 tablet by mouth 2 times daily. 60 tablet 5 10/28/2023 Active Active Problems Problem Noted Date Diagnosed Date Pacemaker 04/06/2023 Bradycardia 03/23/2023 Diabetes mellitus 12/27/2017 Assessment & Plan (03/15/2018 2:19 PM EDT): Monitored at home and with PCP. Continues with metformin. Assessment & Plan (12/27/2017 2:13 PM EDT): Monitored at home and with PCP. Continues with metformin. Sinus node dysfunction 12/02/2017 Overview (12/02/2017): 5 second sinus pause noted prior to stress test on 2017, while on nebivolol. Assessment & Plan (03/15/2018 2:21 PM EDT): Sinus bradycardia improved with holding of bblocker. No presyncope / syncope. Continue to monitor and remain off bblocker therapy. Assessment & Plan (12/27/2017 2:06 PM EDT): Sinus bradycardia improved with holding of nebivolol (bblocker). No presyncope / syncope. Continue to monitor and remain off bblocker therapy. Assessment & Plan (12/02/2017 1:17 PM EDT): Sinus bradycardia improved with holding of nebivolol. Results of the Ziopatch are still pending but I will follow up and discuss further with the patient when the results are available. I will add nebivolol to his adverse drug reaction list. Obesity 11/11/2017 Assessment & Plan (11/11/2017 4:03 PM EDT): Discussed diet with a goal of weight loss. 12/11/2013 S/P Right total knee arthroplasty 12/11 Preop testing - TKR 09/09/2012 Osteoarthritis of right knee 08/04/2012 CAD (coronary artery disease) 06/01/2012 Assessment & Plan (03/15/2018 2:24 PM EDT): No chest pain. Recent stress test w/out ischemia or scar. Continue with medical therapies. He can switch from 325 mg to to low dose aspirin. Assessment & Plan (12/27/2017 2:04 PM EDT): No chest pain. Recent stress test w/out ischemia or scar. Continue with medical therapies. Assessment & Plan (12/02/2017 1:15 PM EDT): Patient with stable disease for many years [...] ASA, atorvastatin and losartan. He is now off a beta-eyal due to sinus node dysfunction. He has NTG SL prescribed from his last visit. Assessment & Plan (11/11/2017 4:02 PM EDT): Currently on good medical management with ASA, [...] because I am concerned he will not be able to reach a target heart rate. I prescribed for him NTG SL to use as needed. Myocardial infarction, old 06/01/2012 Lipid disorder 06/01/2012 Assessment & Plan (03/15/2018 2:21 PM EDT): Continue atorvastatin 80mg. Assessment & Plan (12/27/2017 2:04 PM EDT): Continue atorvastatin 80mg. Assessment & Plan (12/02/2017 1:16 PM EDT): Continue atorvastatin 80mg. Assessment & Plan (11/11/2017 4:02 PM EDT): Continue atorvastatin 80mg. Hypertension 06/01/2012 Assessment & Plan (03/15/2018 2:20 PM EDT): BP improved on medical therapies. I stressed again a low salt diet and frequent BP monitoring. He/ understand. He is due to see his PCP shortly. Assessment & Plan (12/27/2017 2:11 PM EDT): BP continues to be elevated and needs [...] January for BP check and lab work. Assessment & Plan (12/02/2017 1:11 PM EDT): Currently poorly controlled today and at home [...] few weeks and continue the BP diary. Assessment & Plan (11/11/2017 3:56 PM EDT): Unclear control at this juncture, and complicated by orthostatic symptoms. His described episodes of hypertension tend to occur after times of physiologic [...] more detail. No medication changes for now. RJ (obstructive sleep apnea) 06/01/2012 Assessment & Plan (03/15/2018 2:21 PM EDT): He has a diagnosis of RJ and has a sleep mask (but does not use it). I suggested that he use it and f/u with sleep doctors. Assessment & Plan (12/27/2017 2:05 PM EDT): He has a diagnosis of RJ and has a sleep mask (but does not use it). I suggested that he use it and f/u with sleep doctors. History of total knee arthroplasty(LEFT) 011 DJD 01/31/2009 DM, Type II 01/31/2009 Morbid obesity 01/31/2009 Resolved Problems Problem Noted Date Diagnosed Date Resolved Date CIS - Obstructive sleep apnea, on CPAP daily 9 06/01/2012 Encounters Date Type Department Care Team Description 12/20/2023 10:00 AM EDT - 12/20/2023 11:59 PM EDT Hospital Encounter Non-Invasive Cardiology Lab [place] [id number] Discharge Disposition: Home 11/03/2023 3:00 PM EDT Office Visit Cardiology at [place] [phone] Jerrod Mariee PA Pacemaker [Z95.0] 11/03/2023 Travel 11/02/2023 Telephone Cardiology at [place] [address] Elana Dean 11/02/2023 Telephone Cardiology at [place] [phone] Concepcion Ellis RN 10/27/2023 Refill Cardiology at [place] [phone] Thomas Grider PA Medication Refill 10/26/2023 Refill Cardiology at [address] [address] Rian Richards MD Medication Refill from Last 3 Months Immunizations Name Administration Dates Next Due Pneumococcal Polysaccharide (Pneumovax 23) 09/12 Family History Medical History Relation Comments Myocardial Infarction Brother Myocardial Infarction Mother Relation Status Comments Brother Father Mother Social History Tobacco Use Types Packs/Day Years Used Date Smoking Tobacco: Never Smokeless Tobacco: Never Alcohol Use Standard Drinks/Week Comments No 0 (1 standard drink = 0.6 oz pure alcohol) pt reports he quit years ago. alcoholic DH IPV Inpatient Questions Answer Date Recorded Does Anyone Try to Keep You From Having Contact with Others or Doing Things Outside Your Home? no 03/23/2023 Feels Threatened by Someone no 03/12 Feels Unsafe at Home or Work/School no 03/23/2023 Physical Signs of Abuse Present no 03/23/2023 Sex and Gender Information Value Date Recorded Sex Assigned at Not on file Gender Identity Not on file Sexual Orientation Not on file Last Filed Vital Signs Vital Sign Reading Time Taken Comments Blood Pressure 135/78 11/03/2023 3:14 PM EDT Pulse 72 11/03/2023 3:14 PM EDT Temperature 36.6 ??C (97.8 ??F) 03/24/2023 1 2:09 PM EDT Respiratory Rate 18 03/24/2023 12:0 9 PM EDT Oxygen Saturation 99% 11/03/2023 3:14 PM EDT Inhaled Oxygen Concentration - - Weight 84.7 kg (186 lb 11.2 oz) 11/03/2023 3:14 PM EDT Height 175.3 cm (5' 9) 11/03/2023 3:14 PM EDT Body Mass Index 27.57 11/03/2023 3:14 PM EDT Plan of Treatment Upcoming Encounters Date Type Department Care Team (Late st Contact Info) Description 03/19/2024 10:00 AM EDT Hospital Encounter [place] [address] Arrived Health Maintenance Due Date Last Done Comments DM Opthalmology Exam 02/20/1955 DM Urine Microalbumin yearly 02/20/1955 Hepatitis C Screening 02/20/1962 Tdap adult 02/20/1963 Tetanus vaccine 02/20/1963 Zoster vaccine (1 of 2) 02/20/1994 Pneumoccocal Vaccine: 65+ (2 of 2 - PCV) 09/12/2006 09/12/2005 DM Hemoglobin A1c 03/14/2014 12/12/2013 Covid-19 Vaccine (1 - 2022-2 4 season) 2023 Influenza (Flu) vaccine (1 o f 1 - Influenza standard series) 03/12/2024 DM Creatinine yearly 03/23/2024 03/23/2023, 12/14/2013, 12/13/2013, Additional history exists Medical Devices Implanted Type Area Camp Advisor Device Identifier Shelf Expiration Date Model / Serial / Lot Gurnee,Sgm,Fem ,Ps,Cmnt,Lug, R,4 ([id number]) (Autoreq) - [id number] Implanted:Qty : 1 on 12/11/2013 by Chandra Del Rosario MD at [facility] IMPLANTS Right: Knee 09/09/2023 1960-74-5 00 / / [id number] Tray,Tib,Sgm, Mod,Cmnt,Sz4 ([id number]) (Autoreq) - [id number] Implanted:Qty : 1 on 12/11/2013 by Chandra Del Rosario MD at [facility] IMPLANTS Right: Knee 10/10/2023 1581-40-0 00 / / [id number] Meraz,Pfc,Sgm ,Ovl,3pg,Std, 38mm ([id number]) (Autoreq) - [id number] Implanted:Qty : 1 on 12/11/2013 by Chandra Del Rosario MD at [facility] IMPLANTS Right: Knee 08/11/2018 96-0102 / / [id number] Cement,Bne,Cm w 1,Gnta,40gm ([id number]) - [id number] Implanted:Qty : 1 on 12/11/2013 by Chandra Del Rosario MD at [facility] IMPLANTS Right: Knee 08/11/2016 5450-31-5 00 / / [id number] Inser,Sgm,Sta b,Crslnk,4x10 mm ([id number]) (Autoreq) - [id number] Implanted:Qty : 1 on 12/11/2013 by Chandra Del Rosario MD at [facility] IMPLANTS Right: Knee DO NOT USE Depuy Section Forest Fire Warden - [id number] 06/12/2018 [id number] Bsx: [id number]: [id number] Implanted:Avinash Sanchez MD (Quantity not on file) Lead Chest Wall [employer] [id number] / [id number] / Bsx: 7842: [id number] Implanted:Avinash Sanchez MD (Quantity not on file) Lead Heart [employer] [id number] / [id number] / Bsx: [id number]: [id number]/12/2 023 Implanted:06/2023 by Avinash Melgar MD (Quantity not on file) Pacemaker Chest Wall [employer] [id number] / [id number] / Procedures Procedure Name Priority Date/Time Associated Diagnosis Comments BMP W/FASTING GLUCOSE STAT 03/23/2023 6:39 AM EDT HEMOGLOBIN A1C Routine 12/12/2013 4:20 AM EDT from Last 3 Months or Most Recently Relevant to Health Maintenance Results * (ABNORMAL) BMP w/fasting Glucose (03/23/2023 6:39 AM EDT) [facility] Glucose Fasting 110(H) 65 - 99 mg/dL [facility] Comment: ?Fasting* Glucose Interpretive Criteria Normal ?65-99 mg/dL Impaired Fasting glucose ?100-125 mg/dL Consistent with Diabetes Mellitus ? >or= 126 mg/dL *Fasting is defined as no caloric intake for at least 8 hours In the absence of unequivocal hyperglycemia a plasma glucose value of >or= 126 mg/dL should be repeated on a subsequent day. Diagnosis and Classification of Diabetes Mellitus, Position Statement from the [place] Diabetes Association. ??Diabetes Care, Volume 33, Supplement 1, Jul 2009 BUN 19 10 - 20 mg/dL [facility] Creatinine 1.06 0.80 - 1.50 mg/dL [facility] Sodium 140 135 - 145 mmol/L [facility] Potassium 4.2 3.5 - 5.0 mmol/L [facility] Comment: Please note: ??Patients with WBC >100,000 may have falsely elevated Potassium levels. ??For accurate Potassium quantification in these patients send serum separator tube (gold top) for subsequent determinations. ??Contact the Clinical Chemistry Laboratory if there are any questions. Chloride 107 98 - 107 mmol/L [facility] CO2 23 22 - 31 mmol/L [facility] Anion Gap 10 5 - 15 mmol/L [facility] Calcium 9.3 8.5 - 10.5 mg/dL [facility] Estimated GFR 71 >=60 mL/min/1. 73 m?? [facility] Comment: This patient's estimated GFR was calculated using the 2020 CKD-EPI equation. The estimated GFR can vary from the measured GFR by up to 30% in the absence of rapidly changing kidney function. Assessment of the estimated GFR is not appropriate when creatinine concentrations are rapidly changing. For clinical situations in which a more precise estimate of GFR is necessary, consider alternative methods of GFR estimation such as a 24-hour urine creatinine clearance. Assignment of CKD stage 1-5 for patients with an eGFR near the transition point between stages may be based on clinical assessment of muscle mass and symptoms in addition to eGFR. Blood 03/23/2023 6:39 AM EDT 03/23/2023 6:51 AM EDT Narrative Resulting Agency Comment Spec In Lab Avinash Melgar MD CHEMISTRY ORDERABLES [facility] [place] [place] [address] * (ABNORMAL) Hemoglobin A1c (12/12/2013 4:20 AM EDT) Hemoglobin A1C 7.0(H) <=5.6 % [facility] Comment: As of 2013 the methodology for Hemoglobin A1c testing has changed. This change is accompanied by a new interpretive statement and flags. Please review the new interpretive statement and contact Dr. Monte or Dr. Lanza with questions. Reference Range: 4.3 ? 5.6% 5.7 ? 6.4% - Increased Risk of Developing Diabetes Mellitus 6.5% - Consistent with diagnosis of Diabetes Mellitus In the absence of hyperglycemia (i.e. plasma glucose > 200 mg/dL) or classic symptoms of hyperglycemia a repeat measurement of HbA1c should be performed on a separate sample to confirm the diagnosis. Diagnosis and Classification of Diabetes Mellitus, Diabetes Care 2013; 36: Suppl. 1, S67-74 Est Avg Gluc 154 mg/dL [facility] Comment: eAG equivalents for HbA1c percentages: HbA1c(%) ?eAG(mg/dL) 6.0 ?126 6.5 ?140 7.0 ?154 7.5 ?169 8.0 ?183 8.5 ?197 9.0 ?212 9.5 ?226 10.0 ? 240 Limitations: The eAG calculation has not been validated on women, individuals below 18 years old and above 70 years old, and individuals with hemoglobinopathies. Additional resources are available on the ADA website: ??http://professional.diabetes.org/glucosecalculator.aspx Minh LU, Josse J, Brien R, et al. ??Translating the A1C assay into estimated average glucose values. ??Diabetes Care 2008:31(8):1462-9359. Blood specimen (specimen) 12/12/2013 4:20 AM EDT 12/12/2013 4:43 AM EDT Narrative Resulting Agency Comment Spec In Lab Chandra Del Rosario MD CHEMISTRY ORDERABLES [facility] from Last 3 Months or Most Recently Relevant to Health Maintenance Advance Directives Documents on File Type Date Recorded Patient Regulatory Affairs Consultant Expl anation Advance Directives and Livin g Will 12/11/2013 3:05 PM Advance Directives and Livin g Will 09/10/2010 8:20 AM * Attempt Cardiopulmonary Resuscitation - Inpatient (Latest Code Status on File) Date Activated Date Inactivated Comments 03/23/2023 7:04 AM 03/24/2023 6:50 PM Question Answer Comments Code Status decision made by: Patient * Attempt Cardiopulmonary Resuscitation - Inpatient Date Activated Date Inactivated Comments 03/23/2023 6:58 AM 03/23/2023 7:04 AM Question Answer Comments Code Status decision made by: Patient * Full Code Date Activated Date Inactivated Comments 12/11/2013 1:02 PM 12/14/2013 4:26 PM Question Answer Comments Does patient have decision m aking capacity? Yes, order is based on Patient wishes. * Full Code Date Activated Date Inactivated Comments 12/11/2013 1:02 PM 12/11/2013 1:02 PM Question Answer Comments Does patient have decision m aking capacity? Yes, order is based on Patient wishes. Care Teams Golf Club Weighter Relationship Specialty Start Date End Date Jessie Bose APRN [address] [place] [address] PCP - General Geriatric Medicine 05/14/20
--- OUTSIDE RECORDS SUMMARY | 2024-01-24 15:51 | XMS_ITS | Encounter Summary ---
Author Organization [facility] Address [facility] [place] [address] Care Team Providers Care Mold Changer Name Role Phone Jessie Bose APRN Primary Care Provider [phone] Encounter Details Date Type Department Care Team (Latest Contact Info) Description 11/03/2023 Travel Social History Tobacco Use Types Packs/Day Years [...] on file Sexual Orientation Not on file documented as of this encounter Plan of Treatment Upcoming Encounters Date Type Department Care Team (Late st Contact Info) Description 03/19/2024 10:00 AM EDT Hospital Encounter Non-Invasive [place] [address] Arrived documented as of this encounter Visit Diagnoses Not on filedocumented in this encounter Care Teams Mold Changer Relationship Specialty Start Date End Date Jessie Bose APRN [address] [place] [address] PCP - General Geriatric Medicine 05/14/20 documented as of this encounter
--- OUTSIDE RECORDS SUMMARY | 2024-01-24 15:51 | XMS_ITS | Encounter Summary ---
Author Organization [facility] Address [facility] [place] [address] Care Team Providers Care Knurling Machine Operator Name Role Phone Jessie Bose APRN Primary Care Provider [phone]- [phone] Encounter Details Date Type Department Care Team (Latest Contact Info) Description 07/20/2023 Travel Social History Tobacco Use Types Packs/Day [...] AM EDT Hospital Encounter Non[place] [address] Arrived documented as of this encounter Visit Diagnoses Not on filedocumented in this encounter Care Teams Knurling Machine Operator Relationship Specialty Start Date End Date Jsesie Bose APRN [address] [place] [address] PCP - General Geriatric Medicine 05/14/20 documented as of this encounter
--- OUTSIDE RECORDS SUMMARY | 2024-01-24 15:51 | XMS_ITS | Encounter Summary ---
Author Organization [facility] Address [facility] [place] [address] Care Team Providers Care Asbestos Removal Supervisor Name Role Phone Jessie Bose APRN Primary Care Provider [phone] Encounter Details Date Type Department Care Team (Latest Contact Info) Description 09/21/2023 10:00 AM EDT - 09/21/2023 11:59 PM EDT Hospital Encounter [place] [address] Discharge Disposition: Home Social History Tobacco Use Types Packs/Day Years [...] Sig Dispensed Refills Start Date End Date bimatoprost (LUMIGAN) 0.01 % Drops daily. 10/28/2022 furosemide (Lasix) 40 mg tabletIndications:Essent ial hypertension TAKE ONE TABLET BY MOUTH TWICE A DAY 180 tablet 1 04/09/2023 metFORMIN (Glucophage) 500 mg tablet Take 2 tablets by mouth 2 times daily (with meals). 60 tablet 12 03/26/2023 sotaloL (Betapace) 80 mg tablet Take 1 tablet by mouth every 12 hours. 60 tablet 3 03/24/2023 latanoprost (Xalatan) 0.005 % Drops INSTILL ONE DROP INTO BOTH EYES AT BEDTIME 09/02/2022 acetaminophen 325 mg Capsule Take 500 mg by mouth as needed. 05/10/2019 budesonide-formoteroL (SYMBICORT) 160-4.5 mcg/actuation HFA Aerosol Inhaler Inhale into the lungs. 01/09/2013 triamcinolone (KENALOG) 0.1 % Cream Apply topically. 04/10/2019 finasteride (PROSCAR) 5 mg Tablet daily. 0 08/15/2018 aspirin 81 mg Tablet, Delayed Release (E.C.)Indications:Lazo ry artery disease involving northway coronary artery of northway heart without angina pectoris Take 1 tablet by mouth daily. 30 tablet 3 03/15/2018 cholecalciferol, Vitamin D3, 50 mcg (2,000 unit) Capsule Take 2,000 Units by mouth daily. amLODIPine (NORVASC) 10 mg TabletIndications:Essent ial hypertension Take 1 tablet by mouth daily. 90 tablet 3 12/27/2017 nitroGLYcerin (NITROSTAT) 0.3 mg Tablet, SublingualIndications:Co ronary artery disease with exertional angina Place 1 tablet under the tongue every 5 minutes as needed for Chest pain. 90 tablet 12 11/11/2017 atorvastatin (LIPITOR) 80 mg Tablet Take 1 tablet by mouth nightly. 0 08/28/2015 buPROPion SR (Wellbutrin SR) 150 mg tablet sustained-release 12 hr Take 150 mg by mouth 2 times daily. albuterol (PROVENTIL HFA;VENTOLIN HFA) 90 mcg/Actuation inhaler Inhale 2 puffs into the lungs every 4 hours as needed. Use with spacer apixaban (Eliquis) 5 mg tablet Take 1 tablet by mouth 2 times daily. 60 tablet 5 03/24/2023 10/27/2023 spironolactone (Aldactone) 25 mg tabletIndications:Essent ial hypertension TAKE ONE TABLET BY MOUTH EVERY DAY 90 tablet 2 01/27/2023 10/27/2023 documented as of this encounter Plan of Treatment Upcoming Encounters Date Type Department Care Team (Late st Contact Info) Description 03/19/2024 10:00 AM EDT Hospital Encounter [place] [address] Arrived documented as of this encounter Procedures Procedure Name Priority Date/Time Associated Diagnosis Comments PRO PM INTERROGATION REMOTE UP TO 90 DAYS Routine 07/27/2023 6:40 AM EST documented in this encounter Results * Cardiac Device Check - Remote (07/27/2023 6:40 AM EST) Anatomical Region Laterality Modality Other 07/27/2023 6:40 AM EST Arik Gonzalez MD IMPLANTABLE CARDIAC DEVICE documented in this encounter Visit Diagnoses Not on filedocumented in this encounter Care Teams Asbestos Removal Supervisor Relationship Specialty Start Date End Date Jessie Bose APRN [address] [facility] [place] [address] PCP - General Geriatric Medicine 05/14/20 documented as of this encounter
--- OUTSIDE RECORDS SUMMARY | 2024-01-24 15:51 | XMS_ITS | Encounter Summary ---
Author Organization [facility] Address [facility] [place] [address] Care Team Providers Care Anesthesia Resident Name Role Phone JuiceJessie MELISSA Primary Care Provider [phone] Reason for Visit * Reason Comments Medication Refill Encounter Details Date Type Department Care Team (Late st Contact Info) Description 10/26/2023 Refill Cardiology at [address] [phone] Rian Richards MD [facility] [address] [place] [address] Medication Refill Social History Tobacco Use Types Packs/Day Years Used Date Smoking Tobacco: Never Smokeless Tobacco: Never Alcohol Use Standard Drinks/Week Comments No 0 (1 standard drink = 0.6 oz pure alcohol) pt reports he quit years ago. alcoholic IPV Inpatient Questions Answer Date Recorded Does [...] AM EDT Hospital Encounter [place] [phone] Arrived documented as of this encounter Visit Diagnoses Diagnosis Essential hypertension- Primary Unspecified essential hypertension documented in this encounter Care Teams Anesthesia Resident Relationship Specialty Start Date End Date Jessie Bose APRN [address] [place] [address] PCP - General Geriatric Medicine 05/14/20 documented as of this encounter
--- OUTSIDE RECORDS SUMMARY | 2024-01-24 15:51 | XMS_ITS | Encounter Summary ---
Author Organization [facility] Address [facility] [place] [address] Care Team Providers Care Director Housekeeping Name Role Phone Jessie Bose APRN Primary Care Provider [phone] Reason for Referral * Consultation (Routine) - Closed Specialty Diagnoses / Procedures Referred By Contac t Referred To Contact Neurology Diagnoses Memory loss Rian Richards MD [facility] [address] [place] [address] [facility] [address] [place] [address] Referral ID Status Reason Start Date Expiration Date V isits Requested Visits Authorized [id number] Closed Consult, Test & Treat 07/20/2023 07/19/2024 1 1 Encounter Details Date Type Department Care Team (Late st Contact Info) Description 07/20/2023 11:00 AM EST Office Visit Cardiology at [address] [address] Rian Richards MD [facility] [address] [place] [address] Memory loss; PAF (paroxysmal atrial fibrillation); Sinus node dysfunction Social History Tobacco Use Types Packs/Day Years [...] Sign Reading Time Taken Comments Blood Pressure 140/71 07/20/2023 10:54 AM EST Pulse 70 07/20/2023 10:54 AM EST Temperature - - Respiratory Rate - - Oxygen Saturation 98% 07/20/2023 10: 54 AM EST Inhaled Oxygen Concentration - - Weight 91.9 kg (202 lb 11.2 oz) 024 10:54 AM EST Height 175.3 cm (5' 9) 07/20/2023 10:5 4 AM EST Body Mass Index 29.93 07/20/2023 10:54 AM EST documented in this encounter Progress Notes * Rian Richards MD - 07/20/2023 11:00 AM EST Images from the original note were not included. Ltac, Located Within [facility] [place]ALIA Foster [address] Cardiology Clinic Note CC: CAD Patient Name: Corona Romo HPI: Corona Romo is a 78 y.o. man with hypertension, hyperlipidemia, obesity, DM2 on oral medications, RJ on CPAP, ASCVD, and SSS s/p PPM (03/2023). Here with his today for a routine follow up appointment. She mentions that he has had some recent falls at home over the past year. His reports that he falls 1-2 times per month but does not remember any of these episodes. He has suffered some trauma to his face and RLE. He has trouble using stairs-- has had multiple falls on the stairs. States that he may have troublefeeling the stairs. Has been avoiding using the stairs in his home as a consequence. He is sleeping more than usual according to his . She states that he naps frequently during theday. Not using his CPAP currently due to claustrophobia; has not been able to schedule f/u in the Sleep Clinic. also mentions that he is having memory issues. She finds that he repeats himself frequently; forgets events and mis-remembers historical events/details. This seems to be getting worse in her opinion. 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 - enjoys hunting-- deer, bear - Tobacco: Never - EtOH: was an alcoholic; no EtOH since 1999 Family Hx: - Mother: HTN, from heart problems in her mid-70s - Father: from cirrhosis - Sibilings: 4 brothers; 3 have CAD Patient Active Problem List Diagnosis Code DJD DM, Type II Morbid obesity History of total knee arthroplasty(LEFT) Z96.659 CAD (coronary artery disease) I25.10 Myocardial infarction, old I25.2 Lipid disorder E78.9 Hypertension I10 RJ (obstructive sleep apnea) G47.33 Osteoarthritis of right knee M17.11 Preop testing - TKR Z01.818 12/11/2013 S/P Right total knee arthroplasty Z96.659 Obesity E66.9 Sinus node dysfunction I49.5 Diabetes mellitus E11.9 Bradycardia R00.1 Pacemaker Z95.0 Current Outpatient Medications: bimatoprost (LUMIGAN) 0.01 % Drops, daily., Disp: , Rfl: metFORMIN (Glucophage) 500 mg tablet, Take 2 tablets by mouth 2 times daily (with meals)., Disp: 60tablet, Rfl: 12 apixaban (Eliquis) 5 mg tablet, Take 1 tablet by mouth 2 times daily., Disp: 60 tablet, Rfl: 5 sotaloL (Betapace) 80 mg tablet, Take 1 tablet by mouth every 12 hours., Disp: 60 tablet, Rfl: 3 latanoprost (Xalatan) 0.005 % Drops, INSTILL ONE DROP INTO BOTH EYES AT BEDTIME, Disp: , Rfl: acetaminophen 325 mg Capsule, Take 500 mg by mouth as needed., Disp: , Rfl: budesonide-formoteroL (SYMBICORT) 160-4.5 mcg/actuation HFA Aerosol Inhaler, Inhale into the lungs., Disp: , Rfl: triamcinolone (KENALOG) 0.1 % Cream, Apply topically., Disp: , Rfl: finasteride (PROSCAR) 5 mg Tablet, daily., Disp: , Rfl: 0 cholecalciferol, Vitamin D3, 50 mcg (2,000 unit) Capsule, Take 2,000 Units by mouth daily., Disp: ,Rfl: amLODIPine (NORVASC) 10 mg Tablet, Take 1 tablet by mouth daily., Disp: 90 tablet, Rfl: 3 nitroGLYcerin (NITROSTAT) 0.3 mg Tablet, Sublingual, Place 1 tablet under the tongue every 5 minutes as needed for Chest pain., Disp: 90 tablet, Rfl: 12 atorvastatin (LIPITOR) 80 mg Tablet, Take 1 tablet by mouth nightly., Disp: , Rfl: 0 buPROPion SR (Wellbutrin SR) 150 mg tablet sustained-release 12 hr, Take 150 mg by mouth 2 times daily., Disp: , Rfl: albuterol (PROVENTIL HFA;VENTOLIN HFA) 90 mcg/Actuation inhaler, Inhale 2 puffs into the lungs every 4 hours as needed. Use with spacer , Disp: , Rfl: furosemide (Lasix) 40 mg tablet, TAKE ONE TABLET BY MOUTH TWICE A DAY (Patient not taking: Reportedon 07/20/2023), Disp: 180 tablet, Rfl: 1 spironolactone (Aldactone) 25 mg tablet, TAKE ONE TABLET BY MOUTH EVERY DAY (Patient not taking: Reported on 07/20/2023), Disp: 90 tablet, Rfl: 2 aspirin 81 mg Tablet, Delayed Release (E.C.), Take 1 tablet by mouth daily. (Patient not taking: Reported on 07/20/2023), Disp: 30 tablet, Rfl: 3 Patient Vitals for the past 24 hrs: Pulse BP SpO2 07/20/23 1054 70 140/71 98 % CONST: Pleasant, Well-appearing NEURO: Oriented x3; no obvious deficits PSYCH: NAD, Normal mood HEENT: Non-icteric sclera MSK: Ambulates w/o difficulty CV: JVP not elevated; RRR, normal S1+S2, no murmurs PULM: CTAB GI: Soft, non-tender, non-distended, +BS EXTREMITIES: No lower extremity edema; 2+ Radial and DP pulses bilaterally SKIN: No rashes Laboratory: No [...] rhythm, 64 bpm, normal ECG Diagnostic Studies: ZIO (05/2022) Conclusion(s): Rare supraventricular ectopy with rare runs of supraventricular tachycardia. Rare isolated premature ventricular complexes with rare couplets. There was 1 patient triggered event which was associated with normal sinus rhythm. TTE (03/2022) Left ventricle is normal in size with mild-moderate hypertrophy. No regional wall motion abnormalities. No LVOT obstruction. Right ventricle is normal in size and function. Unable to estimate PA pressure. No hemodynamically significant cardiac valve disease. No pericardial effusion. Epicardial fat pad. ZIO (10/2021) Conclusions: Predominant rhythm is sinus 1.1% isolated supraventricular ectopy 3 SCT runs with longest 12.4 seconds No atrial fibrillation No clinically significant AV block 4 pauses: Longest 3.8 seconds on 10/22 [...] imaging studies ASSESSMENT: Corona Romo is a 78 y.o. man with hypertension, hyperlipidemia, obesity, DM2 on oral medications,RJ on CPAP, ASCVD, and SSS s/p PPM (03/2023). Here today for routine follow up appt. Unfortunately,he is struggling at home. His is here with him today and reports a variety of new issues. Specifically, she mentions that he is falling frequently at home with little to no recollection of these events, becoming increasingly confused and forgetful, and seems generally fatigued (eg sleeping/napping more than usual). I don't think there is a primary, unifying cardiac explanation for these issues. I had his PPM evaluated in clinic today and it appears to be functioning normally with no alarms or malignant dysrhythmias. I would like him to be evaluated by Neurology as I wonder if his symptoms are a result of neuro degenerative condition. PLAN: # Increasing forgetfulness, confusion # Gait instability with frequent falls - low suspicion that his falls are cardiac in origin - concerned for a neurologic cause given his constellation of sxs-- will refer to Neurology # Hypertension, controlled - controlled on home readings - continue amlodipine 10 mg daily - 3 Meds d/c'd during recent hospitalization: losartan 100 mg daily, lasix 20 mg BID, and spironolactone 25 mg daily - not using CPAP; needs to treat RJ # Sinus node dysfunction, s/p PPM (03/2023) # Atrial fibrillation, paroxysmal - recently started on Sotalol 160 mg BID - CVA prevention: Eliquis 5 mg BID # ASCVD, chronic, stable - No chest pain - 2018 stress test w/out ischemia or scar # Lipid disorder - continue atorvastatin 80mg daily # RJ (obstructive sleep apnea) - not using his CPAP machine - c/o daytime fatigue, frequent napping, and loud snoring - referral back to sleep medicine to discuss alternate masks, options, etc # Diabetes mellitus Rian Richards MD, FACP, FACC Section of Cardiovascular Medicine [facility] Manager Front Officescrew machine tool setter [facility] documented in this encounter Plan of Treatment Upcoming Encounters Date Type Department Care Team (Late st Contact Info) Description 03/19/2024 10:00 AM EDT Hospital Encounter [place] [address] Arrived Scheduled Orders Name Type Priority Associated Diagnoses Orde r Schedule EKG 12 Lead ECG Routine PAF (paroxysmal atrial fibrillation) Expected: 07/20/2023, Expires: 01/18/2024 Scheduled Referrals Name Type Priority Associated Diagnoses Orde r Schedule Referral to Neurology Outpatient Referral Routine Memory loss Ordered: 07/20/2023 documented as of this encounter Visit Diagnoses Diagnosis Memory loss PAF (paroxysmal atrial fibrillation) Atrial fibrillation Sinus node dysfunction Sinoatrial node dysfunction documented in this encounter Care Teams Director Housekeeping Relationship Specialty Start Date End Date Jessie Bose APRN [address] [place] [address] PCP - General Geriatric Medicine 05/14/20 documented as of this encounter
--- OUTSIDE RECORDS SUMMARY | 2024-01-24 15:51 | XMS_ITS | Encounter Summary ---
Author Organization [facility] [place] [address] Care Team Providers Care Exterior Interior Specialist Name Role Phone Jessie Bose APRN Primary Care Provider [phone] Encounter Details Date Type Department Care Team (Late st Contact Info) Description 11/02/2023 Telephone Cardiology at [address] [phone] Concepcion Ellis, RN Social History Tobacco Use Types Packs/Day Years Used Date Smoking Tobacco: Never Smokeless Tobacco: Never Alcohol Use Standard Drinks/Week Comments No 0 (1 standard drink = 0.6 oz pure alcohol) pt reports he quit years ago. alcoholic [facility] Inpatient Questions Answer Date Recorded Does Anyone [...] documented as of this encounter Miscellaneous Notes * Telephone Encounter - Concepcion Ellis RN - 11/02/2023 11:03 AM EDT RTC to Mr and Mr Romo regarding Mrs Romo's message stating Mr Romo is concerned that when he fell last week, he has done something to his pacemaker. Given telephone number for the device Clinic. Tried to call back to assess fall, and if patient has seen PCP. Concepcion Ellis (Jodie), RN, BSN Cardiology Ambulatory Clinic documented in this encounter Plan of Treatment Upcoming Encounters Date Type Department Care Team (Late st Contact Info) Description 03/19/2024 10:00 AM EDT Hospital Encounter Non-[place] [address] Arrived documented as of this encounter Visit Diagnoses Not on filedocumented in this encounter Care Teams Exterior Interior Specialist Relationship Specialty Start Date End Date Jessie Bose APRN [address] [place] [address] PCP - General Geriatric Medicine 05/14/20 documented as of this encounter
--- OUTSIDE RECORDS SUMMARY | 2024-01-24 15:51 | XMS_ITS | Encounter Summary ---
Author Organization [facility] Address [facility] [place] [address] Care Team Providers Care Electric Relay Tester Name Role Phone JuiceJessie MELISSA Primary Care Provider [phone] Encounter Details Date Type Department Care Team (Late st Contact Info) Description 07/20/2023 11:30 AM EST Office Visit Cardiology at [address] [place] [address] Jerrod Mariee [place] [facility] [place] [address] Pacemaker [Z95.0] Social History Tobacco Use Types Packs/Day Years [...] documented as of this encounter Progress Notes * Jerrod Mariee PA - 07/20/2023 11:30 AM EST Cardiac Device Interrogation Corona Romo [id number] 07/20/2023 History: Corona Romo is a 78 year old male with a PMH significant for hypertension, hyperlipidemia,obesity, DM2 on oral medications, RJ on CPAP, ASCVD, and SSS s/p dual-chamber pacemaker is here seeing Dr. Richards in the clinic and reported recurrent falls once or twice a month. Dr. Richards asked EP to interrogate his device to see if there was anything that would shed light on his propensityfor falling. Vitals: Last Set of Vitals and range of vitals over past 24 hours: Range last 24 hrs Heart Rate Heart Rate: [70] Blood Pressure BP: (140)/(71) SpO2 SpO2: [98 %] Device Interrogation: Data Generator: Q Design MRI [id number] / [id number] - Left-sided implant RA Lead: citizenmade [id number] / [id number] RV Lead: citizenmade [id number] / [id number] Alerts None Diagnostics Pacing Mode: DDDR @ 70/120 bpm Presenting EGMs: AP VS Atrial Episodes: 0 Ventricular Episodes: 0 Atrial Pacin% Ventricular Pacin% HR Histogram: Appropriate distribution Battery and Leads Voltage: NR Status: 7.5 years Magnet Rate: 100 bpm Charge Time: - sec Impedances (ohms) Sensing (mV) Thresholds HV RA RV LV RA RV LV RA RV LV - 637 653 - 5.1 12.8 - 0.7V @ 0.4ms 1.4V @ 0.4ms - Physical Exam: General- No acute distress, sitting comfortably in exam room chair HEENT- Head atraumatic, normocephalic Skin- Warm and dry Cardiovascular- Regular rate and rhythm. Lungs- Normal respiratory effort Neuro- A&Ox3 Comments: - No evidence of any dysrhythmia - Device is functioning appropriately - Programming changes Iterative changes for testing only - Follow up: In-clinic device check as scheduled. GWYN IversonC, PhD 07/20/2023 Pager: [phone] documented in this encounter Plan of Treatment Upcoming Encounters Date Type Department Care Team (Late st Contact Info) Description 03/19/2024 10:00 AM EDT Hospital Encounter Non-[place] [address] Arrived documented as of this encounter Procedures Procedure Name Priority Date/Time Associated Diagnosis Comments EKG 12-LEAD Routine 07/20/2023 11:51 AM EST documented in this encounter Results * EKG 12 Lead (07/20/2023 11:51 AM EST) Ventricular rate 71 BPM MUSE SYSTEM Atrial Rate 71 BPM MUSE SYSTEM P-R Interval 180 ms MUSE SYSTEM QRS Duration 148 ms MUSE SYSTEM Q-T Interval 432 ms MUSE SYSTEM QTC Calculated (Bezet) 469 ms MUSE SYSTEM Calculated R [place] -53 degrees MUSE SYSTEM Calculated T [place] 16 degrees MUSE SYSTEM INTERPRETATION Atrial-paced rhythm with Premature supraventricular complexes Left axis deviation Right bundle branch block Abnormal ECG When compared with ECG of 24-MAR-2023 11:11, Premature supraventricular complexes are now Present Confirmed by MD Emmanuel, Alfreda ([id number]) on 07/20/2023 8:14:44 PM MUSE SYSTEM 07/20/2023 11:5 1 AM EST 07/20/2023 8:14 PM EST Unknown ECG ORDERABLES MUSE SYSTEM documented in this encounter Visit Diagnoses Diagnosis Pacemaker [Z95.0] Cardiac pacemaker in situ documented in this encounter Care Teams Electric Relay Tester Relationship Specialty Start Date End Date Jessie Bose APRN [address] [place] [address] PCP - General Geriatric Medicine 05/14/20 documented as of this encounter
--- OUTSIDE RECORDS SUMMARY | 2024-01-24 15:51 | XMS_ITS | Encounter Summary ---
Author Organization [facility] [place] [address] Care Team Providers Care Marketing Communications Associate Name Role Phone Jessie Bose APRN Primary Care Provider [phone] Reason for Visit * Reason Onset Date Comments Other 11/02/2023 Encounter Details Date Type Department Care Team (Late st Contact Info) Description 11/02/2023 Telephone Cardiology at [address] [phone] lEana Dean Other Social History Tobacco Use Types Packs/Day Years Used Date Smoking Tobacco: Never Smokeless Tobacco: Never Alcohol Use Standard Drinks/Week Comments No 0 (1 standard drink = 0.6 oz pure alcohol) pt reports he quit years ago. alcoholic [facility] Inpatient Questions Answer Date Recorded Does Anyone [...] encounter Miscellaneous Notes * Telephone Encounter - Elana Dean - 11/02/2023 11:17 AM EDT Patient not able to come in today, but will be coming in tomorrow, 11/03/23. CELIA Emerson is not in the Device Clinic tomorrow, but Jerrod Kiessling, PA will be and can assist if needed. * Telephone Encounter - Elana Dean - 11/02/2023 11:10 AM EDT Patient had a fall on 10/22/22 and landed on his chest. He went to local ED and they said his pacemaker was fine. We received a transmission from his pacemaker on 10/26/23 and it doesn't show anything concerning. Patient is getting a sharp pain at his pacemaker site. I asked if it's painful on the skin exterior or if the pain feels like it's inside and he said it feels like it inside where the pacemaker is. I asked if the pacemaker looks like its moved and said yes, that it is protruding more than it was, it was flush and now it isn't. I transferred her to our flight crew scheduler and requested and urgent slot for evaluation. documented in this encounter Plan of Treatment Upcoming Encounters Date Type Department Care Team (Late st Contact Info) Description 03/19/2024 10:00 AM EDT Hospital Encounter Non-[place] [address] Arrived documented as of this encounter Visit Diagnoses Not on filedocumented in this encounter Care Teams Marketing Communications Associate Relationship Specialty Start Date End Date Jessie Bose APRN [address] [place] [address] [place] [address] PCP - General Geriatric Medicine 05/14/20 documented as of this encounter
--- OUTSIDE RECORDS SUMMARY | 2024-01-24 15:51 | XMS_ITS | Encounter Summary ---
Author Organization [facility] Address [facility] [place] [address] Care Team Providers Care Veneer Clipper Helper Name Role Phone Jessie Bose APRN Primary Care Provider [phone] Encounter Details Date Type Department Care Team (Latest Contact Info) Description 12/20/2023 10:00 AM EDT - 12/20/2023 11:59 PM EDT Hospital Encounter Non[place] [address] Discharge Disposition: Home Social History Tobacco Use [...] Sig Dispensed Refills Start Date End Date apixaban (Eliquis) 5 mg tablet Take 1 tablet by mouth 2 times daily. 60 tablet 5 10/28/2023 spironolactone (Aldactone) 25 mg tabletIndications:Essenti al hypertension TAKE ONE TABLET BY MOUTH EVERY DAY 90 tablet 2 10/27/2023 bimatoprost (LUMIGAN) 0.01 % Drops daily. 10/28/2022 furosemide (Lasix) 40 mg tabletIndications:Nayeli al hypertension TAKE ONE TABLET BY MOUTH TWICE [...] 08/15/2018 aspirin 81 mg Tablet, Delayed Release (E.C.)Indications:Coronar y artery disease involving [place] coronary artery of [place] heart without angina pectoris Take 1 tablet by mouth daily. 30 tablet 3 03/15/2018 cholecalciferol, Vitamin D3, 50 mcg (2,000 unit) Capsule Take 2,000 Units by mouth daily. amLODIPine (NORVASC) 10 mg TabletIndications:Nayeli al hypertension Take 1 tablet by mouth daily. 90 tablet 3 12/27/2017 nitroGLYcerin (NITROSTAT) 0.3 mg Tablet, SublingualIndications:Cor onary artery disease with exertional angina Place 1 [...] 4 hours as needed. Use with spacer documented as of this encounter Plan of Treatment Upcoming Encounters Date Type Department Care Team (Late st Contact Info) Description 03/19/2024 10:00 AM EDT Hospital Encounter Non[place] [phone] Arrived documented as of this encounter Visit Diagnoses Not on filedocumented in this encounter Care Teams Veneer Clipper Helper Relationship Specialty Start Date End Date Jessie Bose APRN [address] [place] [address] PCP - General Geriatric Medicine 05/14/20 documented as of this encounter
--- OUTSIDE RECORDS SUMMARY | 2024-01-24 15:51 | XMS_ITS | Encounter Summary ---
Author Organization [facility] Address [facility] [place] [address] Care Team Providers Care Lens Coating Technician Name Role Phone Jessie Bose MELISSA Primary Care Provider [phone] Reason for Visit * Reason Onset Date Comments Medication Refill 10/27/2023 Encounter Details Date Type Department Care Team (Late st Contact Info) Description 10/27/2023 Refill Cardiology at [address] [address] Thomas Grider PA [facility] [place] [address] Medication Refill Social History Tobacco Use Types [...] AM EDT Hospital Encounter Non-[place] [address] Arrived documented as of this encounter Visit Diagnoses Not on filedocumented in this encounter Care Teams Lens Coating Technician Relationship Specialty Start Date End Date Jessie Bose APRN [address] [place] [address] PCP - General Geriatric Medicine 05/14/20 documented as of this encounter
--- OUTSIDE RECORDS SUMMARY | 2024-01-24 15:51 | XMS_ITS | Encounter Summary ---
Author Organization [facility] Address [facility] [place] [address] Care Team Providers Care Brilliandeer Lopper Name Role Phone Jessie Bose APRN Primary Care Provider [phone] Encounter Details Date Type Department Care Team (Latest Contact Info) Description 06/24/2023 Travel Social History Tobacco Use Types Packs/Day [...] AM EDT Hospital Encounter Non-[place] [address] Arrived documented as of this encounter Visit Diagnoses Not on filedocumented in this encounter Care Teams Brilliandeer Lopper Relationship Specialty Start Date End Date Jessie Bose APRN [address] [place] [address] PCP - General Geriatric Medicine 05/14/20 documented as of this encounter
--- OUTSIDE RECORDS SUMMARY | 2024-01-24 15:51 | XMS_ITS | Encounter Summary ---
Author Organization [facility] Address [facility] [place] [address] Care Team Providers Care Fence Rider Name Role Phone JuiceJessie MELISSA Primary Care Provider [phone] Encounter Details Date Type Department Care Team (Late st Contact Info) Description 11/03/2023 3:00 PM EDT Office Visit Cardiology at [address] [place] [phone] Jerrod Mariee [place] [facility] [address] Pacemaker [Z95.0] Social History Tobacco Use Types [...] Pulse 72 11/03/2023 3:14 PM EDT Temperature - - Respiratory Rate - - Oxygen Saturation 99% 11/03/2023 3:14 PM EDT Inhaled Oxygen Concentration - - Weight 84.7 kg (186 lb 11.2 oz) 11/03/2023 3:14 PM EDT Height 175.3 cm (5' 9) 11/03/2023 3:14 PM EDT Body Mass Index 27.57 11/03/2023 3:14 PM EDT documented in this encounter Progress Notes * Jerrod Mariee PA - 11/03/2023 3:00 PM EDT Cardiac Electrophysiology Clinic Note Patient: Corona Romo : 1945 Brief HPI: Corona Romo is a 78 year old male with a PMH significant for hypertension, hyperlipidemia, obesity, DM2 on oral medications, RJ on CPAP, ASCVD, and SSS s/p dual-chamber pacemaker in Mar 2023 who suffered a fall on October 25 and is worried that the pacemaker may have moved in the pocket. ROS: Constitutional: - fatigue, - fever, - chills Respiratory: - shortness of breath, - cough, - apnea, - wheezing Cardiovascular: - chest pain, - palpitations, - unusual rates Gastrointestinal: - nausea, - vomiting, - abdominal pain, - diarrhea Neurological: - lightheadedness, - dizziness, - syncope, - weakness Psychiatric: - anxious Patient Active Problem List Diagnosis Pacemaker Bradycardia Diabetes mellitus Sinus node dysfunction Obesity 12/11/2013 S/P Right total knee arthroplasty Preop testing - TKR Osteoarthritis of right knee CAD (coronary artery disease) Myocardial infarction, old Lipid disorder Hypertension RJ (obstructive sleep apnea) History of total knee arthroplasty(LEFT) DJD DM, Type II Morbid obesity Current Outpatient Medications Medication Sig apixaban (Eliquis) 5 mg tablet Take 1 tablet by mouth 2 times daily. spironolactone (Aldactone) 25 mg tablet TAKE ONE TABLET BY MOUTH EVERY DAY bimatoprost (LUMIGAN) 0.01 % Drops daily. furosemide (Lasix) 40 mg tablet TAKE ONE TABLET BY MOUTH TWICE A DAY (Patient not taking: Reported on 07/20/2023) metFORMIN (Glucophage) 500 mg tablet Take 2 tablets by mouth 2 times daily (with meals). sotaloL (Betapace) 80 mg tablet Take 1 tablet by mouth every 12 hours. latanoprost (Xalatan) 0.005 % Drops INSTILL ONE DROP INTO BOTH EYES AT BEDTIME acetaminophen 325 mg Capsule Take 500 mg by mouth as needed. budesonide-formoteroL (SYMBICORT) 160-4.5 mcg/actuation HFA Aerosol Inhaler Inhale into the lungs. triamcinolone (KENALOG) 0.1 % Cream Apply topically. finasteride (PROSCAR) 5 mg Tablet daily. aspirin 81 mg Tablet, Delayed Release (E.C.) Take 1 tablet by mouth daily. (Patient not taking: Reported on 07/20/2023) cholecalciferol, Vitamin D3, 50 mcg (2,000 unit) Capsule Take 2,000 Units by mouth daily. amLODIPine (NORVASC) 10 mg Tablet Take 1 tablet by mouth daily. nitroGLYcerin (NITROSTAT) 0.3 mg Tablet, Sublingual Place 1 tablet under the tongue every 5 minutesas needed for Chest pain. atorvastatin (LIPITOR) 80 mg Tablet Take 1 tablet by mouth nightly. buPROPion SR (Wellbutrin SR) 150 mg tablet sustained-release 12 hr Take 150 mg by mouth 2 times daily. albuterol (PROVENTIL HFA;VENTOLIN HFA) 90 mcg/Actuation inhaler Inhale 2 puffs into the lungs every4 hours as needed. Use with spacer Vitals: Last Set of Vitals and range of vitals over past 24 hours: Last value Range last 24 hrs Heart Rate Heart Rate: 72 Heart Rate: [72] Blood Pressure BP: 135/78 BP: (135)/(78) SpO2 SpO2: 99 % SpO2: [99 %] Device Interrogation: Data Generator: InstraGrok [id number] / [id number] - Left-sided implant RA Lead: Cryptmint 7841-52 / [id number] RV Lead: Cryptmint 5076-59 / [id number] Alerts None Diagnostics Pacing Mode: DDDR @ 70/120 bpm Presenting EGMs: AP VS Underlying Rhythm: Sinus bradycardia Atrial Episodes: <1% burden Ventricular Episodes: 0 Atrial Pacin% Ventricular Pacin% HR Histogram: Appropriate distribution Battery and Leads Voltage: NR Status: 8 years Magnet Rate: 100 bpm Charge Time: - sec Impedances (ohms) Sensing (mV) Thresholds HV RA RV LV RA RV LV RA RV LV - [id number] 636 - 4.8 12.5 - 0.6V @ 0.4ms 1.2V @ 0.4ms - Physical Exam: General- No acute distress, sitting comfortably in exam room chair HEENT- Head atraumatic, normocephalic Skin- Warm and dry Cardiovascular- S1/S2 regular rate and rhythm. No murmur, rub or gallop Lungs- Clear to auscultation bilaterally Extremities- Pulses equal bilaterally. No edema noted Neuro- A&Ox3 Assessment & Plan: - 78 year old male with a PMH significant for hypertension, hyperlipidemia, obesity, DM2 on oral medications, RJ on CPAP, ASCVD, and SSS s/p dual-chamber pacemaker in Mar 2023 suffered a fall on October 25 and was worried that the pacemaker may have moved in the pocket. - Pocket incision is well healed without any evidence of movement within the pocket and no signs orsymptoms of infection. - Device is functioning appropriately - Programming changes Iterative changes for testing only - Follow up: In-clinic device check in GWYN AbarcaC, PhD 11/03/2023 Pager: [phone] documented in this encounter Plan of Treatment Upcoming Encounters Date Type Department Care Team (Late st Contact Info) Description 03/19/2024 10:00 AM EDT Hospital Encounter [place] [address] Arrived documented as of this encounter Visit Diagnoses Diagnosis Pacemaker [Z95.0] Cardiac pacemaker in situ documented in this encounter Care Teams Fence Rider Relationship Specialty Start Date End Date Jessie Bose APRN [address] [place] [address] PCP - General Geriatric Medicine 05/14/20 documented as of this encounter
--- OUTSIDE RECORDS SUMMARY | 2024-01-24 15:52 | XMS_ITS | Encounter Summary ---
Author Organization [facility] Address [facility] [place] [address] Care Team Providers Care Research And Development Specialist Name Role Phone Jessie Bose APRN Primary Care Provider [phone] Reason for Visit * Reason Comments Medication Refill Encounter Details Date Type Department Care Team (Late st Contact Info) Description 10/13/2022 Refill Cardiology at [address] [phone] Rian Richards MD [facility] [place] [address] Medication Refill Social History Tobacco Use Types Packs/Day Years Used Date Smoking Tobacco: Never Smokeless Tobacco: Never Alcohol Use Standard Drinks/Week Comments No 0 (1 standard drink = 0.6 oz pure alcohol) pt reports he quit years ago. alcoholic Sex and Gender Information Value Date Recorded Sex Assigned at Not on file Gender Identity Not on file Sexual Orientation Not on file documented as of this encounter Miscellaneous Notes * Telephone Encounter - Keena Gutierrez RN - 10/13/2022 3:52 PM EDT LV 05-26-22 continue amlodipine 10 mg daily, losartan 100 mg daily, lasix 40 mg BID, and spironolactone 25 mg daily FUV planned for 6 months- will route to scheduling Requested Prescriptions Pending Prescriptions Disp Refills ??? spironolactone (Aldactone) 25 mg tablet [Pharmacy Med Name: SPIRONOLACTONE 25 MG TABLET] 90 tablet 0 Sig: TAKE ONE TABLET BY MOUTH EVERY DAY Keena Gutierrez RN 4A Cardiology documented in this encounter Plan of Treatment Upcoming Encounters Date Type Department Care Team (Late st Contact Info) Description 03/19/2024 10:00 AM EDT Hospital Encounter Non-[place] [phone] Arrived documented as of this encounter Visit Diagnoses Diagnosis Essential hypertension Unspecified essential hypertension documented in this encounter Care Teams Research And Development Specialist Relationship Specialty Start Date End Date Jessie Bose APRN [address] [place] [address] PCP - General Geriatric Medicine 05/14/20 documented as of this encounter
--- OUTSIDE RECORDS SUMMARY | 2024-01-24 15:52 | XMS_ITS | Encounter Summary ---
Author Organization [facility] [place] [address] Care Team Providers Care National Van Owner Operator Name Role Phone Jessie Bose APRN Primary Care Provider [phone] Encounter Details Date Type Department Care Team (Late st Contact Info) Description 02/15/2023 Telephone Cardiology at [address] [phone] Elly Sarabia RN Social History Tobacco Use Types Packs/Day [...] encounter Miscellaneous Notes * Telephone Encounter - Elly Sarabia RN - 02/15/2023 11:31 AM EDT Received a call from Nelia that Corona was taken to [facility] over the weekend because of severe abd. painand N/V. The doctor there told her it may be related to a hernia but also might be bowel so he is undergoing more testing. Nelia thinks he might go home tomorrow but also she has ordered the providers there to check with Corona's bank teller before any proposed surgery. No calls yet seen. Nelai says she will call team nurse with another updated once he gets home regardless. Patient had anappt. scheduled with Dr. Melgar tomorrow ( possible pacemaker placement) that needed to be rescheduled ( 03/16/23) due to his hospitalization. Elly Holbrook RNvarnishing unit tool setter Cardiovascular Clinic General TeamJesus documented in this encounter Plan of Treatment Upcoming Encounters Date Type Department Care Team (Late st Contact Info) Description 03/19/2024 10:00 AM EDT Hospital Encounter Non[place] [address] Arrived documented as of this encounter Visit Diagnoses Not on filedocumented in this encounter Care Teams National Van Owner Operator Relationship Specialty Start Date End Date Jessie Bose APRN [address] [place] [id number] PCP - General Geriatric Medicine 05/14/20 documented as of this encounter
--- OUTSIDE RECORDS SUMMARY | 2024-01-24 15:52 | XMS_ITS | Encounter Summary ---
Author Organization [facility] [place] [address] Care Team Providers Care Volunteer Recruiter Name Role Phone Jessie Bose APRN Primary Care Provider [phone] Encounter Details Date Type Department Care Team (Latest Contact Info) Description 09/29/2022 Travel Social History Tobacco Use Types Packs/Day [...] AM EDT Hospital Encounter Non-Invasive [place] [address] Arrived documented as of this encounter Visit Diagnoses Not on filedocumented in this encounter Care Teams Volunteer Recruiter Relationship Specialty Start Date End Date Jessie Bose APRN [address] [place], [place] [id number] PCP - General Geriatric Medicine 05/14/20 documented as of this encounter
--- OUTSIDE RECORDS SUMMARY | 2024-01-24 15:52 | XMS_ITS | Encounter Summary ---
Author Organization [facility] [place] [address] Care Team Providers Care Car Repair Supervisor Name Role Phone Jessie Bose APRN Primary Care Provider [phone] Encounter Details Date Type Department Care Team (Late st Contact Info) Description 03/25/2023 Telephone Cardiology at [address] [phone] Yaneth Sun, RN Social History Tobacco Use Types Packs/Day Years Used Date Smoking Tobacco: Never Smokeless Tobacco: Never Alcohol Use Standard Drinks/Week Comments No 0 (1 standard drink = 0.6 oz pure alcohol) pt reports he quit years ago. alcoholic [facility] Inpatient Questions Answer Date Recorded Does [...] encounter Miscellaneous Notes * Telephone Encounter - Yaneth Sun RN - 03/25/2023 4:50 PM EDT RTC to patient's spouse, Nelia, who is calling to clarifying discharge medications. Nelia reports AVS states to stop Penicillin v potassium and that this is a medication the patient has taken daily for many years due to chronic cellulitis. Nelia reports the patient's PCP has tried to stop this medication multiple times, but cellulitis has returned every time. Nelia states the AVS also didn't mention to stop or continue magnesium oxide 400 mg daily, states this was started last month per PCP. Yaneth Sun secondary social studies teacher [facility] [phone] documented in this encounter Plan of Treatment Upcoming Encounters Date Type Department Care Team (Late st Contact Info) Description 03/19/2024 10:00 AM EDT Hospital Encounter Non-[place]vasive [place] [address] Arrived documented as of this encounter Visit Diagnoses Not on filedocumented in this encounter Care Teams Car Repair Supervisor Relationship Specialty Start Date End Date Jessie Bose APRN [address] [place] [address] PCP - General Geriatric Medicine 05/14/20 documented as of this encounter
--- OUTSIDE RECORDS SUMMARY | 2024-01-24 15:52 | XMS_ITS | Encounter Summary ---
Author Organization [facility] Address [facility] [place] [address] Care Team Providers Care Supply Chain Tech Name Role Phone Jessie Bose APRN Primary Care Provider [phone] Reason for Referral * Diagnostic Test (Routine) - Closed Specialty Diagnoses / Procedures Referred By Contac t Referred To Contact Cardiology Diagnoses Lightheadedness Dizziness Procedures Echocardiogram Transthoracic Diane Garcia APRN [facility] [address] [place] [address] [facility] [place] [address] Referral ID Status Reason Start Date Expiration Date V isits Requested Visits Authorized [id number] Closed Specialty Service Requested 12/26/2021 12/26/2022 1 1 Reason for Visit * Consultation (Routine) - Closed Specialty Diagnoses / Procedures Referred By Contact Referred To Contact Electrophysiology / Cardiology Diagnoses Sinus node dysfunction Lightheadedness; Evaluate pauses noted on Zio; ? Pacemaker necessity Rian Richards MD [facility] [address] [place] [address] [facility] [address] [address] [place] [phone] Referral ID Status Reason Start Date Expiration Date V isits Requested Visits Authorized [id number] Closed Consult, Test & Treat 11/17/2021 11/17/2022 1 1 Encounter Details Date Type Department Care Team (Late st Contact Info) Description 12/26/2021 1:30 PM EDT Office Visit Cardiology at [address] [place] [address] Diane Garcia, MELISSA [facility] [place] [address] Lightheadedness; Sinus node dysfunction; Dizziness Social History Tobacco Use Types Packs/Day Years [...] cm (5' 8.5) 12/26/2021 1:05 PM EDT R eported Body Mass Index 33.02 12/26/2021 1:05 PM EDT documented in this encounter Progress Notes * Diane Garcia, MELISSA - 12/26/2021 1:30 PM EDT Cardiac Electrophysiology Clinic Visit Subjective: Patient ID: Lisa Romo is a 76 y.o. male. CC: [...] knolls, and also taking care of his neighborslawn. He has not passed out. He will then come into the house and will fall immediately asleep in the chair. Nelia has noticed that he has had recent days of confusion, within the last month, 2-3 times per week, where he just seems to stare off at her. He noticed his pulse has been in the 40s before carvedilol was stopped, and then they have improvedto 50s to even 65 bpm now in the couple weeks after stopping carvedilol. His blood pressure has also increased being off the carvedilol. Syncope: None, no pre-syncope recently. In the remote past when he was looking for a [place], he turned [...] Uses a chainsaw frequently. Does not use golf course architect. Patient Active Problem List Diagnosis ??? Diabetes [...] 2 times daily. Please ask patient to call rn progressive care unit's office for appt.before further refills-he is overdue [...] hr Take 150 mg by mouth 2 timesdaily. ??? albuterol (PROVENTIL HFA;VENTOLIN HFA) 90 mcg/Actuation [...] starts to pick after the sinus pause. TN 160 ms, QRS 108 ms with incomplete right bundle branch block, QT 440 ms, QTC 409 ms ECG 12/11/21 Sinus bradycardia with PACs in bigeminal pattern, 35 bpm. TN 156 ms, QRS 104 ms, QT 480ms, QTc 366 ms ECG 11/22/2020: Sinus bradycardia with sinus arrhythmia rate 45 bpm. TN 152 ms, QRS 98 ms, QT 462ms, [...] pauses with atrial slowing, all of which were asymptomatic. No evidence of heart block. Recommend sleep apnea treatment follow through and re-evaluate after a month of treatment. Bradycardia has improved off carvedilol. His lightheadedness and dizziness could also be related to dehydration with suboptimal water intake. Recommended increased hydration. Will obtain echocardiogram to evaluate updated LVEF. I discussed this patient's case with Dr. Avinash Melgar. Sedation evaluation: Mallampati class: IV: none of the structures can be seen ASA: 3: Patient with severe systemic disease Plan: 1. Echocardiogram 2. Recommend sleep apnea evaluation, awaiting sleep medicine appointment. Diane Garcia APRN 01/01/2022 Pager: [phone] documented in this encounter Plan of Treatment Upcoming Encounters Date Type Department Care Team (Late st Contact Info) Description 03/19/2024 10:00 AM EDT Hospital Encounter Non-[place]vasive [place] [address] Arrived documented as of this encounter Procedures Procedure Name Priority Date/Time Associated Diagnosis Comments EKG 12-LEAD Routine 12/26/2021 1:14 PM EDT Lightheadedness documented in this encounter Results * ECHO COMPLETE (03/12/2022 10:49 AM EDT) EF 59 HEARTLAB SYSTEM Anatomical Region Laterality Modality Cardiac Other 03/12/2022 10:1 1 AM EDT Narrative 03/12/2022 10:55 AM EDT ? Echocardiogram Report Name: LISA ROMO ?Study Date: 03/12/2022 10:11 AMBP: 139/78 mmHg ? Patient Location: 4A ? HR: 60 : 1945 ? Height: 68.5 in ? Account: [id number] Age: 77 yrs ? Weight: 220 lb Gender: Male ?BSA: 2.1 m2 Ordering Physician: DIANE GARCIA Referring Physician: DIANE GARCIA Performed By: Cory Malik RDCS Reason For Study: Dizziness, Arrythmia History: Bradycardia w PACs Exam Location: [facility]. Interpretation Summary Left ventricle is normal in size with mild-moderate hypertrophy. No regional wall motion abnormalities. No LVOT obstruction. Right ventricle is normal in size and function. Unable to estimate PA pressure. No hemodynamically significant cardiac valve disease. No pericardial effusion. Epicardial fat pad. Procedure Complete-11291. Satisfactory quality. Atrial ectopy occurs frequently during the study. Left Ventricle Left ventricle is of normal size. Wall thickness is mildly increased. Moderately increased thickness of the basal septum with no obstruction to LV outflow. There is no ventricular septal defect. Left ventricular systolic function is normal. The left ventricular ejection fraction is 59% by Oreilly's biplane. There are no segmental wall motion abnormalities. Right Ventricle The right ventricle is of normal size. Right ventricular systolic function is normal. Left Atrium The left atrium is severely dilated. There is no evidence for a patent foramen ovale. Right Atrium The right atrium is normal. Aortic Valve The aortic valve is tricuspid. The aortic valve is mildly thickened. There is calcification of the aortic annulus. There is mild aortic stenosis. The aortic leaflet excursion is mildly reduced. The peak instantaneous gradient across the aortic valve is 15 mmHg. The mean gradient across the aortic valve is 9 mmHg. The dimensionless index is 0.48. There is trace aortic regurgitation. Mitral Valve The mitral valve is structurally and functionally normal. There is trace mitral regurgitation. Tricuspid Valve The tricuspid valve is structurally normal. There is trace tricuspid regurgitation. Pulmonic Valve The pulmonic valve appears to be structurally and functionally normal. There is trace pulmonic valve regurgitation. Great Arteries The aortic root is of normal size. No abnormalities are identified. Ascending aorta is normal in size. Venous Inferior vena cava is not well visualized. Pericardium/Pleural The pericardium appears normal. Hemodynamics Pulmonary artery hypertension could not be assessed due to inadequate tricuspid regurgitation jet. Ejection Fraction ?2D Measurements ? Volumes LV Biplane EF: 58.5 % ? IVSd: 1.7 cm ? LA Volume Index: ?LVIDd: 4.3 cm ?LVIDs: 3.1 cm ?51.4 ml/m2 ?LVPWd: 1.5 cm ?EDV Biplane: 95.9 ml ? EDV Biplane Index: 44.8 ?LV mass(C)d: 273.5 grams ? ESV Biplane: 39.8 ml ?LV mass(C)dI: 127.7 grams/m2 ?? ESV Biplane Index: 18.6 ?Ao root diam: 3.4 cm ? SV(LVOT): 69.2 ml ?Ao root diam index: 1.6 ?LV Stroke Volume: 69.2 ml ?asc Aorta Diam: 3.5 cm ?LVOT diam: 2.1 cm ?SI(LVOT): 32.3 ml/m2 ?TAPSE_phl: 2.4 cm Doppler LV V1 VTI: 20.0 cm Ao V2 VTI: 41.9 cm Ao valve max: 14.5 mmHg Ao valve mean: 9.1 mmHg MV E max gustavo: 73.0 cm/sec MV A max gustavo: 49.2 cm/sec MV E/A: 1.5 MV dec time: 0.16 sec Lat Peak E' Gustavo: 6.6 cm/sec E/ e' (lat): 11.0 Med Peak E' Ugstavo: 6.8 cm/sec E/e' (med): 10.7 E/e' Average: 10.9 LUCAS(I,D): 1.7 cm2 Dimensionless index Aov: 0.48 I ?WMSI = 1.00 ? % Normal = 100 ?Segments ??Size X - Cannot ?2 - ?4 - ?1-2 ? small Interpret ?1 - Normal ?? Hypokinetic 3 - Akinetic Dyskinetic ?? 3-5 ? moderate 5 - ? 6-14 ?large Aneurysmal ?15-16 ?? diffuse Procedure Note Enoc Wyatt MD - 03/12/2022 Echocardiogram Report Name: LISA ROMO Study Date: 0:11 AMBP: 139/78 mmHg Patient Location: 4A HR: 60 : 1945 Height: 68.5 in Account: [id number] Age: 77 yrs Weight: 220 lb Gender: Male BSA: 2.1 m2 Ordering Physician: DIANE GARCIA Referring Physician: DIANE GARCIA Performed By: Cory Malik RDCS Reason For Study: Dizziness, Arrythmia History: Bradycardia w PACs Exam Location: [facility]. Interpretation Summary Left ventricle is normal in size with mild-moderate hypertrophy. Noregional wall motion abnormalities. No LVOT obstruction. Right ventricle is normal in size and function. Unable to estimate PApressure. No hemodynamically significant cardiac valve disease. No pericardial effusion. Epicardial fat pad. Procedure Complete-04609. Satisfactory quality. Atrial ectopy occurs frequentlyduring the study. Left Ventricle Left ventricle is of normal size. Wall thickness is mildly increased.Moderately increased thickness of the basal septum with no obstruction to LV outflow.There is no ventricular septal defect. Left ventricular systolic function isnormal. The left ventricular ejection fraction is 59% by Oreilly's biplane. There areno segmental wall motion abnormalities. Right Ventricle The right ventricle is of normal size. Right ventricular systolic functionis normal. Left Atrium The left atrium is severely dilated. There is no evidence for a patentforamen ovale. Right Atrium The right atrium is normal. Aortic Valve The aortic valve is tricuspid. The aortic valve is mildly thickened. Thereis calcification of the aortic annulus. There is mild aortic stenosis. Theaortic leaflet excursion is mildly reduced. The peak instantaneous gradientacross the aortic valve is 15 mmHg. The mean gradient across the aortic valve is 9mmHg. The dimensionless index is 0.48. There is trace aortic regurgitation. Mitral Valve The mitral valve is structurally and functionally normal. There is tracemitral regurgitation. Tricuspid Valve The tricuspid valve is structurally normal. There is trace tricuspid regurgitation. Pulmonic Valve The pulmonic valve appears to be structurally and functionally normal.There is trace pulmonic valve regurgitation. Great Arteries The aortic root is of normal size. No abnormalities are identified.Ascending aorta is normal in size. Venous Inferior vena cava is not well visualized. Pericardium/Pleural The pericardium appears normal. Hemodynamics Pulmonary artery hypertension could not be assessed due to inadequatetricuspid regurgitation jet. Ejection Fraction 2D Measurements Volumes LV Biplane EF: 58.5 % IVSd: 1.7 cm LA VolumeIndex: LVIDd: 4.3 cm LVIDs: 3.1 cm 51.4 ml/m2 LVPWd: 1.5 cm EDV Biplane: 95.9ml EDV BiplaneIndex: 44.8 LV mass(C)d: 273.5 grams ESV Biplane: 39.8ml LV mass(C)dI: 127.7 grams/m2 ESV BiplaneIndex: 18.6 Ao root diam: 3.4 cm SV(LVOT): 69.2ml Ao root diam index: 1.6 LV Stroke Volume:69.2 ml asc Aorta Diam: 3.5 cm LVOT diam: 2.1 cm SI(LVOT): 32.3ml/m2 TAPSE_phl: 2.4 cm Doppler LV V1 VTI: 20.0 cm Ao V2 VTI: 41.9 cm Ao valve max: 14.5 mmHg Ao valve mean: 9.1 mmHg MV E max gustavo: 73.0 cm/sec MV A max gustavo: 49.2 cm/sec MV E/A: 1.5 MV dec time: 0.16 sec Lat Peak E' Gustavo: 6.6 cm/sec E/ e' (lat): 11.0 Med Peak E' Gustavo: 6.8 cm/sec E/e' (med): 10.7 E/e' Average: 10.9 LUCAS(I,D): 1.7 cm2 Dimensionless index Aov: 0.48 I WMSI = 1.00 % Normal = 100 SegmentsSize X - Cannot 2 - 4 - 1-2small Interpret 1 - Normal Hypokinetic 3 - Akinetic Dyskinetic 3-5moderate 5 - 6-14large Aneurysmal 15-16diffuse Diane Garcia APRN ECHO ORDERABLES * EKG 12 Lead (12/26/2021 1:14 PM EDT) Ventricular rate 52 BPM MUSE SYSTEM Atrial Rate 52 BPM MUSE SYSTEM P-R Interval 160 ms MUSE SYSTEM QRS Duration 108 ms MUSE SYSTEM Q-T Interval 440 ms MUSE SYSTEM QTC Calculated (Bezet) 409 ms MUSE SYSTEM Calculated P [place] 80 degrees MUSE SYSTEM Calculated R [place] -34 degrees MUSE SYSTEM Calculated T [place] 48 degrees MUSE SYSTEM INTERPRETATION Sinus bradycardia with marked sinus arrhythmia Left axis deviation Incomplete right bundle branch block Abnormal ECG When compared with ECG of 11-DEC-2021 13:15, Premature atrial complexes are no longer Present Vent. rate has increased BY ??17 BPM Confirmed by MD RAFY, RENATO ([id number]) on 12/26/2021 1:35:58 PM MUSE SYSTEM 12/26/2021 1:14 PM EDT 12/26/2021 1:35 PM EDT Diane Garcia APRN ECG ORDERABLES MUSE SYSTEM documented in this encounter Visit Diagnoses Diagnosis Lightheadedness Dizziness and giddiness Sinus node dysfunction Sinoatrial node dysfunction Dizziness Dizziness and giddiness Lightheadedness Dizziness and giddiness Dizziness Dizziness and giddiness documented in this encounter Care Teams Supply Chain Tech Relationship Specialty Start Date End Date Jessie Bose APRN [address] [place] [address] PCP - General Geriatric Medicine 05/14/20 documented as of this encounter
--- OUTSIDE RECORDS SUMMARY | 2024-01-24 15:52 | XMS_ITS | Encounter Summary ---
Author Organization [facility] [place] [address] Care Team Providers Care Sheet Metal Pattern Cutter Name Role Phone JuiceJessie MELISSA Primary Care Provider [phone] Encounter Details Date Type Department Care Team (Late st Contact Info) Description 06/24/2023 1:00 PM EST Office Visit Cardiology at [address] [address] Amy Forrester, RN Pacemaker Social History Tobacco Use Types Packs/Day Years [...] Sign Reading Time Taken Comments Blood Pressure 142/85 06/24/2023 1:06 PM EST Pulse 71 06/24/2023 1:06 PM EST Temperature - - Respiratory Rate - - Oxygen Saturation 95% 06/24/2023 1:06 PM EST Inhaled Oxygen Concentration - - Weight 90.2 kg (198 lb 12.8 oz) 06/24/2023 1:06 PM EST Height 175.3 cm (5' 9) 06/24/2023 1:06 PM EST Body Mass Index 29.36 06/24/2023 1:06 PM EST documented in this encounter Progress Notes * Amy Forrester RN - 06/24/2023 1:00 PM EST Images from the original note were not included. Clinical Electrophysiology Device Service Note Corona Romo is a 78 y.o. male with CAD, T2DM, HTN, RJ who has symptomatic sick sinus syndrome for which he underwent elective dual chamber pacemaker placement on the left on 03/23/2023. He presentstoday for a 91 day check. Denies any issues with the device. States he falls a couple times a month. states he has foot drop and he loses his balance or trips over something, sometimes because of dizziness. He says he has not discussed this with any of his care team. He is anticoagulated on Eliquis. I advised him that he should be following up with thiswith his PCP. He said he is seeing her next month and will bring it up. He said he bumped his right quintanilla going up the stairs a few days ago, it is tender. He states it is getting better, I advised him he should follow up with his PCP about this as well. Picture below: PCP: Jessie Bose APRN Final Parameters at implant: LEAD AND GENERATOR DATA: Station Superintendent Model # Serial # Generator [employer] [id number] Atrial Lead [employer] [id number] Ventricular Lead [employer] [id number] PACE/SENSE DATA: Sensed wave (mV) Threshold (V) Impedance (Ohms) Atrium 4.8 N/A 565 Ventricle 22.2 0.5@0.4ms 817 Settings: DDDR 70/120 Presenting rhythm: AP/VS Underlying rhythm: SB 30s-40s Atrial Lead: P wave: 5.9mV Impedance: 680 ohms Threshold: 0.6V @ 0.4ms Ventricular Lead: R wave: 12.6mV Impedance: 655 ohms Threshold: 1.1V @ 0.4ms Since April 06, 2023 Heart rate histograms: Pacing percentages: AP 98%; DRYWALL FOREMAN 1% Mode switch episodes: none VHR: none Battery: estimated remaining longevity: 8 years Wound assessment: well healed left chest Reprogramming: Plan: Remote in 3 mos. RTC in 1 year Provider: Amy Forrester, RN Attending: Dr. Hayes documented in this encounter Plan of Treatment Upcoming Encounters Date Type Department Care Team (Late st Contact Info) Description 03/19/2024 10:00 AM EDT Hospital Encounter Non-[place] [address] Arrived documented as of this encounter Visit Diagnoses Diagnosis Pacemaker Cardiac pacemaker in situ documented in this encounter Care Teams Sheet Metal Pattern Cutter Relationship Specialty Start Date End Date Jessie Bose APRN [address] [place] [address] PCP - General Geriatric Medicine 05/14/20 documented as of this encounter
--- OUTSIDE RECORDS SUMMARY | 2024-01-24 15:52 | XMS_ITS | Encounter Summary ---
Author Organization [facility] Address [facility] [place] [address] Care Team Providers Care Insurance Specialist Name Role Phone Jessie Bose APRN Primary Care Provider [phone] Encounter Details Date Type Department Care Team (Late st Contact Info) Description 12/16/2021 Orders Only Cardiology at [address] [phone] Diane Garcia HVAC ESTIMATOR [facility] [place] [address] Lightheadedness (Primary Dx); ASCVD (arteriosclerotic cardiovascular disease) Social History Tobacco Use Types Packs/Day Years [...] AM EDT Hospital Encounter Non[place] [address] Arrived documented as of this encounter Visit Diagnoses Diagnosis Lightheadedness- Primary Dizziness and giddiness ASCVD (arteriosclerotic cardiovascular disease) Unspecified cardiovascular disease documented in this encounter Care Teams Insurance Specialist Relationship Specialty Start Date End Date Jessie Bose APRN [address] [place] [address] PCP - General Geriatric Medicine 05/14/20 documented as of this encounter
--- OUTSIDE RECORDS SUMMARY | 2024-01-24 15:52 | XMS_ITS | Encounter Summary ---
Author Organization [facility] [place] [address] Care Team Providers Care Band Tumbler Name Role Phone Jessie Bose MELISSA Primary Care Provider [phone] Encounter Details Date Type Department Care Team (Late st Contact Info) Description 02/08/2023 Telephone Cardiology at [address] [phone] Janis Perez Social History Tobacco Use Types Packs/Day Years [...] encounter Miscellaneous Notes * Telephone Encounter - Janis Perez - 02/08/2023 1:17 PM EDT LVM. Request for pt to see EP (for possible PM) from Dr. Richards. Ok to schedule with Dr. Melgar on 02/17 at 10:20a. Janis Perez Sr. Clinical Procedure [place]/Electrophysiology documented in this encounter Plan of Treatment Upcoming Encounters Date Type Department Care Team (Late st Contact Info) Description 03/19/2024 10:00 AM EDT Hospital Encounter Non[place] [address] Arrived documented as of this encounter Visit Diagnoses Not on filedocumented in this encounter Care Teams Band Tumbler Relationship Specialty Start Date End Date Jessie Bose APRN [address] [place] [address] PCP - General Geriatric Medicine 05/14/20 documented as of this encounter
--- OUTSIDE RECORDS SUMMARY | 2024-01-24 15:52 | XMS_ITS | Encounter Summary ---
Author Organization [facility] Address [facility] [place] [address] Care Team Providers Care Cabin Crew Name Role Phone Jessie oBse APRN Primary Care Provider [phone] Encounter Details Date Type Department Care Team (Latest Contact Info) Description 04/06/2023 Travel Social History Tobacco Use Types Packs/Day [...] AM EDT Hospital Encounter Non-Invasive [place] [address] Arrived documented as of this encounter Visit Diagnoses Not on filedocumented in this encounter Care Teams Cabin Crew Relationship Specialty Start Date End Date Jessie Bose APRN [address] [place] [address] PCP - General Geriatric Medicine 05/14/20 documented as of this encounter
--- OUTSIDE RECORDS SUMMARY | 2024-01-24 15:52 | XMS_ITS | Encounter Summary ---
Author Organization [facility] Address [facility] [place] [address] Care Team Providers Care Chemical Process Analyst Name Role Phone Jessie Bose APRN Primary Care Provider [phone] Reason for Visit * Auth/Cert (Routine) Specialty Diagnoses / Procedures Referred By Contac t Referred To Contact Diagnoses Sick sinus syndrome Dizziness and giddiness Sinus node dysfunction [I49.5]Sick sinus syndrome [I49.5]Dizzinesses [R42] Procedures PRO INSERT NEW OR REPLACE HEART PACER XVENOUS ATRIAL/VENTRICULAR ELECTROPHYSIOLOGY PROCEDURE INSERT PERM PACEMAKER W\TRANSVENOUS ELECTRODES; ATRIAL & VENTRICULAR (WRVU 8.52) Avinash Melgar MD [facility] [place] [address] [facility] Referral ID Status Reason Start Date Expiration Date Visits Re quested Visits Authorized [id number] 1 1 Encounter Details Date Type Department Care Team (Late st Contact Info) Description 03/23/2023 7:30 AM EDT - 03/23/2023 10:30 AM EDT Surgery Electrophysiology Lab at [facility] [place] [address] Avinash Melgar MD [facility] [place] [address] ELECTROPHYSIOLOGY PROCEDURE Social History Tobacco Use Types Packs/Day Years [...] Sign Reading Time Taken Comments Blood Pressure 137/84 03/23/2023 10:30 AM EDT Pulse 74 03/23/2023 10:30 AM EDT Temperature 36.2 ??C (97.2 ??F) 03/23/2023 9:54 AM ED T Respiratory Rate 17 03/23/2023 10:3 0 AM EDT Oxygen Saturation 94% 03/23/2023 10: 30 AM EDT Inhaled Oxygen Concentration - - Weight 94.3 kg (207 lb 14.4 oz) 03/23/2023 6:24 AM EDT Height 175.3 cm (5' 9) 03/23/2023 6:24 AM EDT Body Mass Index 30.24 03/23/2023 6:24 AM EDT documented in this encounter Discharge Instructions * Patient Instructions* Thomas Grider PA - 03/24/2023 4:07 PM EDT FINAL ICD/PACEMAKER RECOMMENDATIONS: 1. Standard post implant discharge instructions (see below): 2. Medications as listed above. SOTALOL 80 mg TABLET: TAKE 1 tablet by mouth every 12 hours [NEW MEDICATIONS] STOP LOSARTAN IN SETTING OF LOW BLOOD PRESSURE. KEEP BLOOD PRESSURE LOG AT HOME AND TAKE TO PRIMARYCARE OFFICE BEFORE CONSIDERING RESTARTING. ELIQUIS 5 MG TABLET: Take 1 tablet by mouth twice daily [NEW MEDICATION] HOLD METFORMIN. RESUME TAKING Wednesday03/26/2023 IN AM You may use ice packs over the incision. Make sure to use a men's and boys' clothing salesperson (such as a towel) in between the ice pack and the bare skin and that it stays DRY. 3. Follow up in pacemaker clinic in 10 days for a wound check and device check. DEVICE CLINIC 1. You will be scheduled for a ~10 day wound check in the Device Clinic for: ?? Incision check ?? Device interrogation ?? Review of remote follow up and set up of home monitor 2. Your device will be checked every 3 months (either in clinic or by remote). 3. Prior to discharge, you will be given a home monitor so that your device can send clinical data to the device clinic nurses. If you are unable to set this up at home prior to your wound check, we will review this at the time of your appointment NOTE: The device data we review from your home monitor is comparable to an in- office appointment. Therefore, your insurance company will be billed for review of your data. Depending on your coverage,you may be responsible for a portion of his charge. We recommend that you contact your insurance carrier for more details about your particular coverage. WOUND CARE FOR YOUR INCISION: Your wound will usually heal in 7-10 days. Your wound may be tender, it may appear slightly red andbumpy and there may be dry, crusty scabbing. These are all normal. How to Care for your Incision: - Either you or someone with you needs to look at the wound every day. - Report any signs of infection immediately: Drainage Swelling Warmth Increased pain Fevers/chills - Call if you are concerned about infection or the edges of the wound separate - A needle should not be put into the wound area because this can damage the device. You may need to remind your healthcare provider of this concern - There are sutures inside the incision that will dissolve on their own - Do not scratch or rub the wound - Do not apply creams, lotions, or ointments to the incision until is completely healed. - You may cover the wound with gauze if it rubs on clothing and causes discomfort - Protect your wound from injury until the skin has had sufficient time to heal - Do not shower for 48 hours after implant - While in the shower, turn your back to the water nozzle so you avoid direct water pressure on thewound. Continue this for 7-10 days. - After 48 hours, you may wash the wound gently with soap and water (unless there is DermaBond on the incision - see below) - Do not submerge the incision (bathtubs, hot tubs, or swimming) for at least two weeks Your incision has been covered with a Mepilex dressing. - This dressing will stay on for 7 days. - Please remove the dressing on: Friday March 31, 2023 - If the edges pull up substantially or fluid gets underneath the Mepilex dressing, remove it sooner - Once removed, you may notice some grayish discoloration. This is normal. Your incision has been closed with: Dermabond - This is a sterile, liquid skin adhesive that holds wound edges together. The film will usually remain in place for a few weeks, then naturally sloughs (falls) off your skin. - Do not scratch, rub, or pick at the Dermabond adhesive film. This may loosen the film before yourwound is healed. - Protect the wound from prolonged exposure to sunlight or tanning lamps while the film is in place - You may occasionally and briefly wet your wound in the shower or bath. Do not soak or scrub your wound, do not swim, and avoid periods of heavy perspiration until the Dermabond adhesive has naturally fallen off. After showering or bathing, gently blot your wound dry with a soft towel Your incision may have been closed with: SteriStrips - These are thin adhesive strips placed over your incision to help it heal. - Leave them in place until they fall off (approximately 10-14 days) - Do not scratch, rub, or pick at them. This may pull at your incision before it is completely healed, which can increase the risk of infection. CALL IMMEDIATELY: If you develop chest pain, shortness of breath, bleeding, discharge from the incision, opening of the incision and/or fever/temperature >100 degrees F. The office scheduling phone number is [phone]. ARM MOVEMENT RESTRICTIONS POST-IMPLANT - Do not raise your elbow on the operated side above the shoulder for 6 weeks - Do not lift greater than 7 pounds (equal to a gallon of milk) on the operated side for 6 weeks. - Do not fully extend this arm in any direction away from the torso for 6 weeks - You may use your arm on the operated side, but do not make extreme movement (such as stretching or reaching for a heavy object) for 6 weeks - No driving for 1 week to avoid incision discomfort or bleeding at incision caused by driving arm maneuvers. If you have any questions or concerns about this product, please call the office at [phone]. * Attachments The following attachments cannot be sent through Care Everywhere. * Bradycardia Pacemaker: Post-op (Citizen Of [place]) * Sotalol Atrial Fibrillation Oral Tablet 80 mg - 120 mg - 160 mg (Citizen Of [place]) * Atrial Fibrillation (Citizen [place]) * Direct Oral Anticoagulants: Non-Vitamin K Antagonist (Citizen Of [place]) documented in this encounter Medications at Time of Discharge Medication Sig Dispensed Refills Start Date End Date bimatoprost (LUMIGAN) 0.01 % Drops daily. 10/28/2022 metFORMIN (Glucophage) 500 mg tablet Take 2 [...] Delayed Release (E.C.)Indications:Lazo ry artery disease involving [place] coronary artery of [place] heart without angina pectoris Take 1 tablet [...] EVERY DAY 90 tablet 2 01/27/2023 10/27/2023 furosemide (Lasix) 40 mg TabletIndications:Essent ial hypertension Take 1 tablet by mouth 2 times daily. 180 tablet 1 03/06/2022 04/09/2023 documented as of this encounter Progress Notes * Arik Gonzalez MD - 03/24/2023 12:09 PM EDT Cardiac Device Interrogation Corona Romo [id number] 03/24/2023 History: Mr. Romo is a 78M with CAD, T2DM, HTN, RJ who has symptomatic sick sinus syndrome for which he underwent elective dual chamber pacemaker placement on the left on 03/23/2023. He developed atrial fibrillation during the case and was subsequently started on sotalol 160mg BID. His Qtc did not progressively prolong, but his dosing was changed to 80mg BID prior to discharge. Device Interrogation: Alerts None Diagnostics Pacing Mode: DDDR 60 Presenting EGMs: /VS Underlying Rhythm: afib Atrial Episodes: atrial fibrillation Ventricular Episodes: none Atrial Pacin% Ventricular Pacin% Battery and Leads Voltage: -V Status: >8yrs Magnet Rate: N/A bpm Charge Time: N/Asec Impedances (ohms) Sensing (mV) Thresholds HV RA RV LV RA RV LV RA RV LV N/A 601 684 N/A 6.8 18.5 N/A N/A 0.5V @ 0.4ms N/A Comments: - Pocket incision is well healed without signs or symptoms of infection - Device is functioning appropriately - Programming changes None - Follow up in clinic per DC summary Coy Maloney MD 03/24/2023 Pager: [phone] I supervised the above dual chamber pacemaker interrogation and iterative programming for interrogation purposes. Arik Gonzalez MD S Cardiac Electrophysiology 04/02/2023 8:54 AM * Carla Leone RN - 03/23/2023 11:19 AM EDT RN lunch relief awaiting room in [facility] Voided 350 cc called to come in * Florecita Shanks RN - 03/23/2023 10:01 AM EDT Pt arrived to PACU from OR in bed. All monitors attached and alarms set appropriately. Afib 60's-70's on equipment monitor phototypesetting. Pt awake, A&Ox4. Denies chest pain/SOB/Nausea. - blood sugar per flowsheets. - L chest dressing c/d/I. 1020: pt sat up in bed and given urinal, encouraged to void. 1030: EKG paged for. 1036: team paged about OBS order, EKG in progress. Pt voided per flowsheets. - MD Villalobos at bedside. 1040: EKG resulted, pharmacy notified. - per policy pt is required to be admitted into a intermediate cardiac care unit for the administration of IV Sotalol. - provider notified. 1130: at bedside. Pt phase II awaiting bed in [facility]. 1250: Lunch ordered. 1330: pt tolerating PO intake well. 1500: pt reports need to poop, offered bedpan, declined. 1600: VSS on RA, voiding via urinal no issues. Denies pain but reports stiffness. 1710: Report given to MARY Sanders [id number] 1809: pt to floor room L4WB via bed accompanied by RN. documented in this encounter H&P Notes * Avinash Melgar MD - 03/23/2023 6:53 AM EDT Patient Name: Corona Romo Patient Age: 78 y.o. Birthdate: 1945 Admit date: 03/23/2023 Attending Physician: Avinash Melgar MD Corona Romo is a 78 y.o. male with symptomatic sick sinus syndrome presenting for elective dual-chamber pacemaker placement on the left with anesthesia (MAC) . Please see recent outpt note of 03/16/23 for historical details. He has not had any interval fevers, chills, illness nor syncope. He contiues to have poor exercise tolerance. Patient Active Problem List Diagnosis Code DJD DM, Type II Morbid obesity History of total knee arthroplasty(LEFT) Z96.659 CAD (coronary artery disease) I25.10 Myocardial infarction, old I25.2 Lipid disorder E78.9 Hypertension I10 RJ (obstructive sleep apnea) G47.33 Osteoarthritis of right knee M17.11 Preop testing - TKR Z01.818 12/11/2013 S/P Right total knee arthroplasty Z96.659 Obesity E66.9 Sinus node dysfunction I49.5 Diabetes mellitus E11.9 Current Facility-Administered Medications for the 03/23/23 encounter (Hospital Encounter) Medication Dose Route Frequency Provider Last Rate Last Admin sodium chloride 0.9% infusion 1,000 mL Intravenous Continuous Avinash Melgar MD Outpatient Medications Marked as Taking for the 03/23/23 encounter (Hospital Encounter) Medication Sig Dispense Refill spironolactone (Aldactone) 25 mg tablet TAKE ONE TABLET BY MOUTH EVERY DAY 90 tablet 2 latanoprost (Xalatan) 0.005 % Drops INSTILL ONE DROP INTO BOTH EYES AT BEDTIME furosemide (Lasix) 40 mg Tablet Take 1 tablet by mouth 2 times daily. 180 tablet 1 acetaminophen 325 mg Capsule Take by mouth. budesonide-formoteroL (SYMBICORT) 160-4.5 mcg/actuation HFA Aerosol Inhaler Inhale into the lungs. triamcinolone (KENALOG) 0.1 % Cream Apply topically. finasteride (PROSCAR) 5 mg Tablet daily. 0 aspirin 81 mg Tablet, Delayed Release (E.C.) Take 1 tablet by mouth daily. 30 tablet 3 cholecalciferol, Vitamin D3, 50 mcg (2,000 unit) Capsule Take 2,000 Units by mouth daily. amLODIPine (NORVASC) 10 mg Tablet Take 1 tablet by mouth daily. 90 tablet 3 atorvastatin (LIPITOR) 80 mg Tablet Take 1 tablet by mouth nightly. 0 losartan (COZAAR) 100 mg Tablet Take 100 mg by mouth daily. buPROPion SR (Wellbutrin SR) 150 mg tablet sustained-release 12 hr Take 150 mg by mouth 2 times daily. penicillin v potassium (VEETID) 500 mg tablet 500mg, PO, BID Allergies Allergen Reactions Nebivolol Other (See Comments) Sinus node dysfunction- sinus madina and a 5 second pause Unable To Find [Unclassified Drug] Nausea Only and Other (See Comments) All Narcotics Exam: BP 163/69 (BP Location (NBP): Left arm) Pulse 59 Temp 36.3 ??C (97.3 ??F) (Temporal) Resp 12 Ht 175.3 cm (5' 9) Wt 94.3 kg (207 lb 14.4 oz) SpO2 98% BMI 30.70 kg/m?? A&O x 3 Lungs clear to auscultation bilaterally No JVD Lungs clear to auscultation bilaterally Heart borderline bradycardic S1 S2 no murmurs, rubs or gallops Abd obese, benign Extr no edema Lab Results Component Value Date CREATININE 1.04 12/14/2013 BUN 13 12/14/2013 NA 138 12/14/2013 K 3.4 (L) 12/14/2013 CL 97 (L) 12/14/2013 CO2 25 12/14/2013 Lab Results Component Value Date WBC 5.0 03/23/2023 HGB 13.1 (L) 03/23/2023 HCT 39.6 (L) 03/23/2023 MCV 87.8 03/23/2023 PLATELET 160 03/23/2023 Lab Results Component Value Date TSH 0.93 03/16/2023 A/P: 78 yo man w/ symptomatic sick sinus syndrome presenting for dual-chamber pacemaker under MAC anesthesia. Rationales for, intended benefits and potential risk of planned procedures reviewed. The patient indicated understanding and agreement with the plan. Site marked. Informed consent signed. Pt has L sided IV and is ready to proceed to EP lab now. Avinash Melgar MD, PhD, [facility] Cardiac Electrophysiology 03/23/2023 7:06 AM documented in this encounter Miscellaneous Notes * Plan of Care - Noemi Andrews RN - 03/24/2023 4:49 PM EDT AVS reviewed with patient and spouse. Questions answered. PIV removed per policy. Belongings returned to patient. VSS. Patient discharged to entrance 2 per policy. Problem: Fall Injury Risk Goal: Absence of Fall and Fall-Related Injury 03/24/2023 1601 by Noemi Andrews RN Outcome: Outcome (s) achieved 03/24/2023 1039 by Noemi Andrews RN Outcome: Ongoing (Interventions Implemented as Appropriate) Problem: Adult Inpatient Plan of Care Goal: Plan of Care Review 03/24/2023 1601 by Noemi Andrews RN Outcome: Outcome (s) achieved 03/24/2023 1039 by Noemi Andrews RN Outcome: Ongoing (Interventions Implemented as Appropriate) Goal: Patient-Specific Goal (Individualized) 03/24/2023 1601 by Noemi Andrews RN Outcome: Outcome (s) achieved 03/24/2023 1039 by Noemi Andrews RN Outcome: Ongoing (Interventions Implemented as Appropriate) Goal: Absence of Hospital-Acquired Illness or Injury 03/24/2023 1601 by Noemi Andrews RN Outcome: Outcome (s) achieved 03/24/2023 1039 by Noemi Andrews RN Outcome: Ongoing (Interventions Implemented as Appropriate) Goal: Optimal Comfort and Wellbeing 03/24/2023 1601 by Noemi Andrews RN Outcome: Outcome (s) achieved 03/24/2023 1039 by Noemi Andrews RN Outcome: Ongoing (Interventions Implemented as Appropriate) Goal: Readiness for Transition of Care 03/24/2023 1601 by Noemi Andrews RN Outcome: Outcome (s) achieved 03/24/2023 1039 by Noemi Andrews RN Outcome: Ongoing (Interventions Implemented as Appropriate) Problem: Adjustment to Illness (Cardiac Rhythm Management Device) Goal: Optimal Adjustment to Device Presence 03/24/2023 1601 by Noemi Andrews RN Outcome: Outcome (s) achieved 03/24/2023 1039 by Noemi Andrews RN Outcome: Ongoing (Interventions Implemented as Appropriate) Problem: Bleeding (Cardiac Rhythm Management Device) Goal: Absence of Bleeding 03/24/2023 1601 by Noemi Andrews RN Outcome: Outcome (s) achieved 03/24/2023 1039 by Noemi Andrews RN Outcome: Ongoing (Interventions Implemented as Appropriate) Problem: Device-Related Complication Risk (Cardiac Rhythm Management Device) Goal: Effective Device Function 03/24/2023 1601 by Noemi Andrews RN Outcome: Outcome (s) achieved 03/24/2023 1039 by Noemi Andrews RN Outcome: Ongoing (Interventions Implemented as Appropriate) Problem: Infection (Cardiac Rhythm Management Device) Goal: Absence of Infection Signs and Symptoms 03/24/2023 1601 by Noemi Andrews RN Outcome: Outcome (s) achieved 03/24/2023 1039 by Noemi Andrews RN Outcome: Ongoing (Interventions Implemented as Appropriate) Problem: Pain (Cardiac Rhythm Management Device) Goal: Acceptable Pain Level 03/24/2023 1601 by Noemi Andrews RN Outcome: Outcome (s) achieved 03/24/2023 1039 by Noemi Andrews RN Outcome: Ongoing (Interventions Implemented as Appropriate) Problem: Respiratory Compromise (Cardiac Rhythm Management Device) Goal: Effective Oxygenation and Ventilation 03/24/2023 1601 by Noemi Andrews RN Outcome: Outcome (s) achieved 03/24/2023 1039 by Noemi Andrews RN Outcome: Ongoing (Interventions Implemented as Appropriate) * Care Management Discharge - Felipe Bolanos RN - 03/24/2023 10:18 AM EDT CARE MANAGEMENT FINAL DISCHARGE NOTE Chart reviewed, care reviewed with primary team and at interdisciplinary rounds. Patient is medically ready for discharge to home. Per care team, Patient with no apparent RNCM/SW needs at this time. No housing, transportation, insurance, resources concerns identified at this time. Supports in place to achieve a safe post-hospital transition. No identified barriers to accessing necessary care and/or follow-up after discharge. Needs for Transition of Care: Plan for discharge is: Home w/o Services Outpatient Agency/Support Group Needs: None Agency Referrals & Follow-up Care: D-H Scheduled Appointments D-H Scheduled Appointments APR 06 Hospital Check with Estella Lira RN Wednesday 1:00 PM (Arrive by 12:40 PM) Cardiology at [address] [address] Arrive at: [facility] MAY 13 PSG May 7:30 PM [facility] at [address] [facility] [place] [facility] [address] Arrive at: [facility] [place] JUN 24 Office Visit with Amy Guardado RN Jun 1:00 PM (Arrive by 12:40 PM) Cardiology at [address] [address] Arrive at: [facility] Transportation: family or friend will provide Current Functional Ability: Independent DME Needed at Discharge: none Patient is insured through: Primary Insurance: [employer] MANAGED MEDICARE Payor: AARP MANAGED MEDICARE / Plan: AARP [facility] MANAGED MEDICARE COMPLETE / Product Type: *No Product type* / Secondary Insurance: N/A Prescription Coverage: This plan was formulated with input from patient, and team. All are in agreement with plan. Felipe Bolanos RN * Plan of Care - Maranda Giraldo RN - 03/23/2023 10:50 PM EDT Problem: Fall Injury Risk Goal: Absence of Fall and Fall-Related Injury Outcome: Ongoing (Interventions Implemented as Appropriate) Problem: Adult Inpatient Plan of Care Goal: Plan of Care Review Outcome: Ongoing (Interventions Implemented as Appropriate) Goal: Patient-Specific Goal (Individualized) Outcome: Ongoing (Interventions Implemented as Appropriate) Goal: Absence of Hospital-Acquired Illness or Injury Outcome: Ongoing (Interventions Implemented as Appropriate) Goal: Optimal Comfort and Wellbeing Outcome: Ongoing (Interventions Implemented as Appropriate) Goal: Readiness for Transition of Care Outcome: Ongoing (Interventions Implemented as Appropriate) Problem: Adjustment to Illness (Cardiac Rhythm Management Device) Goal: Optimal Adjustment to Device Presence Outcome: Ongoing (Interventions Implemented as Appropriate) Problem: Bleeding (Cardiac Rhythm Management Device) Goal: Absence of Bleeding Outcome: Ongoing (Interventions Implemented as Appropriate) Problem: Device-Related Complication Risk (Cardiac Rhythm Management Device) Goal: Effective Device Function Outcome: Ongoing (Interventions Implemented as Appropriate) Problem: Infection (Cardiac Rhythm Management Device) Goal: Absence of Infection Signs and Symptoms Outcome: Ongoing (Interventions Implemented as Appropriate) Problem: Pain (Cardiac Rhythm Management Device) Goal: Acceptable Pain Level Outcome: Ongoing (Interventions Implemented as Appropriate) Problem: Respiratory Compromise (Cardiac Rhythm Management Device) Goal: Effective Oxygenation and Ventilation Outcome: Ongoing (Interventions Implemented as Appropriate) * Plan of Care - Noemi Andrews RN - 03/23/2023 6:38 PM EDT OUTCOME EVALUATION NOTE: OUTCOME SUMMARY: Patient arrived to floor from PACU at 1820. Patient AOx4, no reports of CP or SOB. Denies pain. Remains on RA O2. A fib in TELE. L dressing CDI, no bbleeding or hematoma present. PLAN MOVING FORWARD: Continue to actively monitor. D/C planning as appropriate INDIVIDUALIZED FALL PREVENTION INTERVENTIONS: Patient-specific fall risk factors per assessment: [current deficits]: TELE wires, unfamiliar environment Assistance [level of assistance required for transfers and ambulation]: SBA Supervision [direct monitoring required during toileting and ADLs]: SBA Surveillance [continuous indirect monitoring]: TELE, purposeful rounding, call brennan within reach. Patient-specific fall prevention interventions for sensory deficits provided, if applicable: room near RN station, door open, non-skid socks on when OOB, lighting adjusted for specific tasks, bed in lowest position CARE PLAN GOAL OUTCOME EVALUATION: Ongoing Problem: Fall Injury Risk Goal: Absence of Fall and Fall-Related Injury Outcome: Ongoing (Interventions Implemented as Appropriate) Problem: Adult Inpatient Plan of Care Goal: Plan of Care Review Outcome: Ongoing (Interventions Implemented as Appropriate) Goal: Patient-Specific Goal (Individualized) Outcome: Ongoing (Interventions Implemented as Appropriate) Goal: Absence of Hospital-Acquired Illness or Injury Outcome: Ongoing (Interventions Implemented as Appropriate) Goal: Optimal Comfort and Wellbeing Outcome: Ongoing (Interventions Implemented as Appropriate) Goal: Readiness for Transition of Care Outcome: Ongoing (Interventions Implemented as Appropriate) documented in this encounter Plan of Treatment Upcoming Encounters Date Type Department Care Team (Late st Contact Info) Description 03/19/2024 10:00 AM EDT Hospital Encounter [place] [address] Arrived documented as of this encounter Procedures Procedure Name Priority Date/Time Associated Diagnosis Comments EKG 12-LEAD Routine 03/24/2023 11:11 AM EDT Atrial fibrillation, unspecified type XR CHEST PA AND LATERAL Routine 03/24/20 6:16 AM EDT POCT GLUCOSE Routine 03/23/2023 8:53 PM EDT EKG 12-LEAD Routine 03/23/2023 10:38 AM EDT Atrial fibrillation, unspecified type POCT GLUCOSE Routine 03/23/2023 10:07 AM EDT ELECTROPHYSIOLOGY PROCEDURE Routine 03/23/2023 8:07 AM EDT Sinus node dysfunction Sick sinus syndrome Dizzinesses POCT GLUCOSE Routine 03/23/2023 6:43 AM EDT BMP W/FASTING GLUCOSE STAT 03/23/2023 6:39 AM EDT HEMOGRAM STAT 03/23/2023 6:39 AM EDT DIFFERENTIAL, AUTOMATED STAT 03/23/20 6:39 AM EDT BLUE TUBE HOLD STAT 03/23/2023 6:39 AM EDT HC PROTHROMBIN TIME STAT 03/23/2023 6 :39 AM EDT HC CBC,PLT & AUTO DIFF STAT 6:39 AM EDT MAGNESIUM STAT 03/23/2023 6:39 AM EDT INSERT PERM PACEMAKER W\TRANSVENOUS ELECTRODES; ATRIAL & VENTRICULAR Routine 03/18/2023 7:51 AM EDT Sinus node dysfunction Sick sinus syndrome Dizzinesses documented in this encounter Results * EKG 12 Lead (03/24/2023 11:11 AM EDT) Ventricular rate 70 BPM MUSE SYSTEM Atrial Rate 70 BPM MUSE SYSTEM P-R Interval 220 ms MUSE SYSTEM QRS Duration 144 ms MUSE SYSTEM Q-T Interval 432 ms MUSE SYSTEM QTC Calculated (Bezet) 466 ms MUSE SYSTEM Calculated R [place] -58 degrees MUSE SYSTEM Calculated T [place] 6 degrees MUSE SYSTEM INTERPRETATION Atrial-paced rhythm with prolonged AV conduction Right bundle branch block Left axis deviation Abnormal ECG When compared with ECG of 24-MAR-2023 00:28, Electronic atrial pacemaker has replaced Sinus rhythm Confirmed by MD Tung, Blake Noel ([id number]) on 04/01/2023 4:20:13 PM MUSE SYSTEM 03/24/2023 11:1 1 AM EDT 04/01/2023 4:20 PM EDT Avinash Melgar MD ECG ORDERABLES MUSE SYSTEM * XR Chest PA & Lateral (Generic) (03/24/2023 6:16 AM EDT) Anatomical Region Laterality Modality Chest N/A Digital Radiogra phy Impressions 03/24/2023 9:21 AM EDT 1. ??Interval placement of left anterior chest wall cardiac pulse generator with leads in the right atrium and ventricle. 2. ??No pneumothorax. I have personally reviewed the image(s) and the resident's interpretation and agree with the findings, Dora Hatch MD at 03/24/2023 9:21 AM Thank you for letting us participate in the care of this patient. ??If you are a health care provider and have any questions regarding this report, please contact the number below. ??For patients who have questions please contact the health animal care technician that requested your imaging first. ? Narrative 03/24/2023 9:21 AM EDT EXAMINATION: XR CHEST PA AND LATERAL (GENERIC) CLINICAL HISTORY: s/p device implant confirm lead placement and r/o pneumothorax TECHNIQUE: PA and lateral views of the chest COMPARISON: Nuclear medicine cardiac study 09/09/2012 FINDINGS: Interval placement of left anterior chest wall cardiac pulse generator with leads in the right atrium and ventricle. Cardiac mediastinal silhouette and hilar contour within normal limits. No effusion or pneumothorax. No focal consolidation. No acute osseous abnormality. Procedure Note Dora Xavier MD - 03/24/2023 EXAMINATION: XR CHEST PA AND LATERAL (GENERIC) CLINICAL HISTORY: s/p device implant confirm lead placement and r/o pneumothorax TECHNIQUE: PA and lateral views of the chest COMPARISON: Nuclear medicine cardiac study 09/09/2012 FINDINGS: Interval placement of left anterior chest wall cardiac pulse generatorwith leads in the right atrium and ventricle. Cardiac mediastinal silhouetteand hilar contour within normal limits. No effusion or pneumothorax. Nofocal consolidation. No acute osseous abnormality. IMPRESSION 1. Interval placement of left anterior chest wall cardiac pulse generatorwith leads in the right atrium and ventricle. 2. No pneumothorax. I have personally reviewed the image(s) and the resident's interpretationand agree with the findings, Dora Hatch MD at 03/24/2023 9:21AM Thank you for letting us participate in the care of this patient. If youare a health care provider and have any questions regarding this report,please contact the number below. For patients who have questions please contactthe health animal care technician that requested your imaging first. Avinash Melgar MD IMG DX ORDERABLES * POCT Glucose (03/23/2023 8:53 PM EDT) Pathologist [facility] POC Glucose 124 65 - 199 mg/dL [facility] Comment: Supplemental ranges: <140 mg/dL before meals <180 mg/dL all other times of the day Blood 03/23/2023 8:53 PM EDT 03/23/2023 8:53 PM EDT Avinash Melgar MD POINT OF CARE TEST O RDERABLES Performing Organization Address City/[facility]/ZIP Co de Phone Number [facility] [place] [address] * EKG 12 Lead (03/23/2023 10:38 AM EDT) Pathologist [facility] Ventricular rate 76 BPM MUSE SYSTEM QRS Duration 146 ms MUSE SYSTEM Q-T Interval 408 ms MUSE SYSTEM QTC Calculated (Bezet) 459 ms MUSE SYSTEM Calculated R [place] -54 degrees MUSE SYSTEM Calculated T [place] 1 degrees MUSE SYSTEM INTERPRETATION Atrial fibrillation Right bundle branch block Left anterior fascicular block Bifascicular block Abnormal ECG When compared with ECG of 24-DEC-2022 15:52, Atrial fibrillation has replaced Sinus rhythm Confirmed by MD Zabrian, Parviz ([id number]) on 03/23/2023 6:58:02 PM MUSE SYSTEM 03/23/2023 10:3 8 AM EDT 03/23/2023 6:58 PM EDT Avinash Melgar MD ECG ORDERABLES MUSE SYSTEM * POCT Glucose (03/23/2023 10:07 AM EDT) POC Glucose 99 65 - 199 mg/dL [facility] Comment: Supplemental ranges: <140 mg/dL before meals <180 mg/dL all other times of the day Blood 03/23/2023 10:0 7 AM EDT 03/23/2023 10:07 AM EDT Avinash Melgar MD POINT OF CARE TEST O RDERABLES [facility] [place] [address] * ELECTROPHYSIOLOGY PROCEDURE (03/23/2023 8:07 AM EDT) Anatomical Region Laterality Modality Other Narrative 03/23/2023 3:02 PM EDT Table formatting from the original result was not included. Dual Chamber Pacemaker Implant Procedure Note Patient name: Corona Romo Procedure Date: 03/23/23 [employer]ws Software Development Engineer: Avinash Melgar MD, PhD Fellow: Enoc Brooks MD Referring Provider: CELIA Arellano Procedures performed: Dual chamber pacemaker implant Venogram Synchronized External cardioversion x4 Anesthesia: Moderate anesthesia care (MAC) sedation by the anesthesia service Indication: Symptomatic bradycardia Procedure description: Informed consent was obtained. The patient was brought to the Cardiac Electrophysiology laboratory in a post-absorptive, fasting state. A peripheral IV was in place. Continuous electrocardiographic, blood pressure, oxygen saturation and carbon dioxide monitoring was initiated. Self-adhesive cardioversion patches were positioned on the chest. IV antibiotics were administered. Moderate sedation was induced. The implant site was then prepped and draped in the usual sterile fashion. A venogram was performed which demonstrated patent axillary venous system. The implant area was infiltrated with a 50/50 mixture of lidocaine (2%) and bupivicaine (0.5%). An incision was made in the left pectoralis fossa, guided by venogram imaging, and sharp and blunt dissection was used down to the level of the pectoralis major fascia. Hemostasis was maintained with electrocautery. Axillary vein access was obtained unsuccessful under ultrasound guidance but was able to be obtained using fluoroscopy and anatomic landmarks. Utilizing a retained wire technique, two guide wires was placed in the central venous circulation through a single introducer sheath, which was then removed. ??A 6 Fr peel away sheath was advanced over one guide wire into the subclavian vein. A pacemaker lead was then advanced under fluoroscopic guidance and positioned in the right ventricle where a stable position with adequate sensing and pacing characteristics was obtained. The 6Fr sheath was split and a new 6Fr sheath was advanced over the retained guidewire into the subclavian vein. Following this, a permanent pacing lead was advanced under fluoroscopic guidance and positioned in the right atrium where a stable position with adequate sensing and pacing characteristics was obtained. Immediately following atrial lead deployment, the patient was noted to be in atrial fibrillation. Cardioversion was attempted initially at 50J but failed to convert to sinus rhythm. A second synchronized shock was delivered at 100J which resulted in a sinus pause which was treated with pacing. A third attempt yielded same results. The patient continue to have atrial fibrillation, rates 70-80's. After checking for slack in both leads, both leads were anchored to the pre-pectoralis fascia using 0 silk non-absorbable suture. A pacemaker pocket was now fashioned using blunt dissection. The pocket was flushed with antibiotic solution. The generator was connected to the leads, tested and found to be functioning satisfactorily. The generator was implanted in the pocket, and the pocket closed in layers using 2-0 interrupted, 2-0 continuous Vicryl, and 4-0 continuous Monocryl absorbable sutures. Just prior to the conclusion of the case, cardioversion was again performed at 100J with conversion to sinus/paced rhythm, but again there was rapid return of atrial fibrillation. The incision was covered with Dermabond and the wound cover with a Mepilex dressing The patient remained hemodynamically stable, tolerated the procedure well and was transferred in stable condition. Dr. Melgar was present for and participated in the entire procedure. LEAD AND GENERATOR DATA: Electronics Assembler Model # Serial # Generator gopogo [id number] Atrial Lead [employer] 7841-52 [id number] Ventricular Lead [employer] 5076-59 [id number] PACE/SENSE DATA: Sensed wave (mV) Threshold (V) Impedance (Ohms) Atrium 4.8 N/A 565 Ventricle 22.2 0.5@0.4ms 817 FINAL PROGRAMMING: Pacing: Mode Lower rate (ppm) Upper rate (ppm) DDDR 60 120 Medication Summary IV Cefazolin: 2g Contrast: 10cc Fluoroscopy Data: Fluoro time(minutes): 6.5 DAP(cGycm^2): 3 CONCLUSIONS: 1. Successful left-sided dual chamber pacemaker implant under moderate sedation. 2. Patent left sublavian venous system 3. Newly observed atrial fibrillation , recurrent following repeated external ??cardioversion The patient's Nelia was updated in person immediately after the procedure. I was present for and participated in all beckett portions of this procedure. Plan: admit for IV sotalol loading, begin anticoagulation this evening. DCCV in AM if does not chemically cardiovert. Avinash Melgar MD, PhD, [facility] Cardiac Electrophysiology Procedure Note Avinash Melgar MD - 03/23/2023 Dual Chamber Pacemaker Implant Procedure Note Patient name: Corona Romo Procedure Date: 03/23/23 [employer] Software Development Engineer: Avinash Melgar MD, PhD Fellow: Enoc Brooks MD Referring Provider: CELIA Arellano Procedures performed: Dual chamber pacemaker implant Venogram Synchronized External cardioversion x4 Anesthesia: Moderate anesthesia care (MAC) sedation by the anesthesiaservice Indication: Symptomatic bradycardia Procedure description: Informed consent was obtained. The patient was brought to the CardiacElectrophysiology laboratory in a post-absorptive, fasting state. Aperipheral IV was in place. Continuous electrocardiographic, bloodpressure, oxygen saturation and carbon dioxide monitoring wasinitiated. Self-adhesive cardioversion patches were positioned on thechest. IV antibiotics were administered. Moderate sedation was induced.The implant site was then prepped and draped in the usual sterile fashion.A venogram was performed which demonstrated patent axillary venous system.The implant area was infiltrated with a 50/50 mixture of lidocaine (2%)and bupivicaine (0.5%). An incision was made in the left pectoralis fossa,guided by venogram imaging, and sharp and blunt dissection was used downto the level of the pectoralis major fascia. Hemostasis was maintainedwith electrocautery. Axillary vein access was obtained unsuccessful underultrasound guidance but was able to be obtained using fluoroscopy andanatomic landmarks. Utilizing a retained wire technique, two guide wireswas placed in the central venous circulation through a single introducersheath, which was then removed. A 6 Fr peel away sheath was advanced overone guide wire into the subclavian vein. A pacemaker lead was thenadvanced under fluoroscopic guidance and positioned in the right ventriclewhere a stable position with adequate sensing and pacing characteristicswas obtained. The 6Fr sheath was split and a new 6Fr sheath was advancedover the retained guidewire into the subclavian vein. Following this, a permanent pacing lead was advanced under fluoroscopicguidance and positioned in the right atrium where a stable position withadequate sensing and pacing characteristics was obtained. Immediatelyfollowing atrial lead deployment, the patient was noted to be in atrialfibrillation. Cardioversion was attempted initially at 50J but failed toconvert to sinus rhythm. A second synchronized shock was delivered at 100Jwhich resulted in a sinus pause which was treated with pacing. A thirdattempt yielded same results. The patient continue to have atrialfibrillation, rates 70-80's. After checking for slack in both leads, both leads were anchored to thepre- pectoralis fascia using 0 silk non-absorbable suture. A pacemakerpocket was now fashioned using blunt dissection. The pocket was flushedwith antibiotic solution. The generator was connected to the leads, testedand found to be functioning satisfactorily. The generator was implanted inthe pocket, and the pocket closed in layers using 2-0 interrupted, 2-0continuous Vicryl, and 4-0 continuous Monocryl absorbable sutures. Just prior to the conclusion of the case, cardioversion was againperformed at 100J with conversion to sinus/paced rhythm, but again therewas rapid return of atrial fibrillation. The incision was covered withDermabond and the wound cover with a Mepilex dressing The patient remainedhemodynamically stable, tolerated the procedure well and was transferredin stable condition. Dr. Melgar was present for and participated in theentire procedure. LEAD AND GENERATOR DATA: Electronics Assembler Model # Serial # Generator gopogo [id number] Atrial Lead [employer] 7841-52 [id number] Ventricular Lead [employer] 5076-59 [id number] PACE/SENSE DATA: Sensed wave (mV) Threshold (V) Impedance (Ohms) Atrium 4.8 N/A 565 Ventricle 22.2 0.5@0.4ms 817 FINAL PROGRAMMING: Pacing: Mode Lower rate (ppm) Upper rate (ppm) DDDR 60 120 Medication Summary IV Cefazolin: 2g Contrast: 10cc Fluoroscopy Data: Fluoro time(minutes): 6.5 DAP(cGycm^2): 3 CONCLUSIONS: 1. Successful left-sided dual chamber pacemaker implant under moderatesedation. 2. Patent left sublavian venous system 3. Newly observed atrial fibrillation , recurrent following repeatedexternal cardioversion The patient's Nelia was updated in person immediately after theprocedure. I was present for and participated in all beckett portions of this procedure. Plan: admit for IV sotalol loading, begin anticoagulation this evening.DCCV in AM if does not chemically cardiovert. Avinash Melgar MD, PhD, [facility] Cardiac Electrophysiology Avinash Melgar MD EP PROCEDURE ORDERAB LES * POCT Glucose (03/23/2023 6:43 AM EDT) Pathologist [facility] POC Glucose 125 65 - 199 mg/dL [facility] Comment: Supplemental ranges: <140 mg/dL before meals <180 mg/dL all other times of the day Blood 03/23/2023 6:43 AM EDT 03/23/2023 6:43 AM EDT Avinash Melgar MD POINT OF CARE TEST O RDERABLES Performing Organization Address City/[facility]/ZIP Co de Phone Number [facility] [place] [address] * Magnesium (03/23/2023 6:39 AM EDT) Pathologist [facility] Magnesium 0.83 0.69 - 1.07 mmol/L [facility] Blood Venous Draw / Unknown 03/23/2023 6:39 AM EDT 03/23/2023 7:00 AM EDT Narrative Resulting Agency Comment Spec In Lab Thomas YANG CHEMISTRY ORDERABLES [facility] [place] [address] * Blue Tube HOLD (03/23/2023 6:39 AM EDT) Pathologist [facility] Blue Hold Sample in lab. [facility] Blood Venous Draw / Unknown 03/23/2023 6:39 AM EDT 03/23/2023 6:52 AM EDT Avinash Melgar MD HEMATOLOGY ORDERABLE S [facility] [place] [address] * Differential, Automated (03/23/2023 6:39 AM EDT) [facility] Neutrophils % 60.5 % [facility] Neutr Abs (ANC) 3.06 1.70 - 6.10 x10(3)/[facility] Lymphocytes % 22.2 % [facility] Lymphocytes Abs 1.1 0.9 - 3.2 x10(3)/[facility] Monocytes % 11.7 % [facility] Monocyte Abs 0.6 0.3 - 0.9 x10(3)/[facility] Eosinophils % 4.6 % [facility] Eosinophils Abs 0.2 0.0 - 0.4 x10(3)/[facility] Basophils % 0.8 % [facility] Basophils Abs 0.0 0.0 - 0.1 x10(3)/[facility] Immature Gran % 0.20 % [facility] Comment: Immature granulocytes(IG's)percentage and absolute count will include metamyelocytes, myelocytes, and promyelocytes. Blood smears from CBCs yielding IG's will be scanned manually for concordance. If this scan disagrees with the automated IG or if promyelocytes are noted, a manual differential will be performed. Carolin Gran Abs 0.01 0.00 - 0.04 x10(3)/[facility] Blood 03/23/2023 6:39 AM EDT 03/23/2023 6:51 AM EDT Narrative Resulting Agency Comment Spec In Lab Avinash Melgar MD HEMATOLOGY ORDERABLE S [facility] [place] [address] * (ABNORMAL) Hemogram (03/23/2023 6:39 AM EDT) WBC 5.0 4.0 - 9.5 x10(3)/[facility] RBC 4.51(L) 4.58 - 5.54 x10(6)/[facility] Hemoglobin 13.1(L) 13.7 - 16.5 g/dL [facility] Hematocrit 39.6(L) 40.5 - 48.5 % [facility] MCV 87.8 82.9 - 93.1 [facility] MCH 29.0 27.5 - 32.1 pg [facility] MCHC 33.1 32.0 - 35.7 g/dL [facility] Platelets 160 145 - 357 x10(3)/[facility] RDWSD 46.2(H) 36.0 - 45.0 [facility] RDWCV 14.4(H) 11.4 - 13.8 % [facility] MPV 10.5 7.6 - 12.9 [facility] nRBC % Auto 0.0 % [facility] nRBC Abs Auto 0.000 0.000 - 0.000 x10(3)/[facility] Blood 03/23/2023 6:39 AM EDT 03/23/2023 6:51 AM EDT Narrative Resulting Agency Comment Spec In Lab Avinash Melgar MD HEMATOLOGY ORDERABLE S [facility] [place] [address] * (ABNORMAL) BMP w/fasting Glucose (03/23/2023 6:39 AM EDT) Glucose Fasting 110(H) 65 - 99 mg/dL [facility] Comment: ?Fasting* Glucose Interpretive Criteria [...] of Diabetes Mellitus, Position Statement from the [place] [employer]. ??Diabetes Care, Volume 33, Supplement 1, Jul 2009 BUN 19 10 - 20 mg/dL [facility] Creatinine 1.06 0.80 - 1.50 mg/dL [facility] Sodium 140 135 - 145 mmol/L [facility] Potassium 4.2 3.5 - 5.0 mmol/L [facility] Comment: Please note: ??Patients with WBC >100,000 may have falsely elevated Potassium levels. ??For accurate Potassium quantification in these patients send serum separator tube (gold top) for subsequent determinations. ??Contact the Clinical Chemistry Laboratory if there are any questions. Chloride 107 98 - 107 mmol/L [facility] CO2 23 22 - 31 mmol/L [facility] Anion Gap 10 5 - 15 mmol/L [facility] Calcium 9.3 8.5 - 10.5 mg/dL [facility] Estimated GFR 71 >=60 mL/min/1. 73 m?? [facility] Comment: This patient's estimated GFR [...] In Lab Avinash Melgar MD CHEMISTRY ORDERABLES Performing Organization Address [facility] Co de Phone Number [facility] [place] [address] * Prothrombin Time (03/23/2023 6:39 AM EDT) PT 11.5 9.4 - 12.5 sec [facility] INR 1.0 [facility] Comment: An INR <2.0 indicates adequate procoagulant activity for hemostasis in most patients without underlying bleeding disorders, though the INR may not adequately reflect hemostatic capacity in patients with liver disease and synthetic impairment. The recommended target INR range for therapeutic anticoagulation is 2.0 ? 3.0 for most applications, though lower and higher ranges may be appropriate depending on clinical circumstances. Blood 03/23/2023 6:39 AM EDT 03/23/2023 6:51 AM EDT Narrative Resulting Agency Comment Spec In Lab Avinash Melgar MD HEMATOLOGY ORDERABLE S Performing Organization Address [facility] Co de Phone Number [facility] [place] [address] documented in this encounter Visit Diagnoses Diagnosis Bradycardia- Primary Other specified cardiac dysrhythmias Sinus node dysfunction Sinoatrial node dysfunction Sick sinus syndrome Sinoatrial node dysfunction Dizzinesses Atrial fibrillation, unspecified type Sinus node dysfunction Sinoatrial node dysfunction Sick sinus syndrome Sinoatrial node dysfunction Dizzinesses documented in this encounter Admitting Diagnoses Diagnosis Bradycardia Other specified cardiac dysrhythmias documented in this encounter Administered Medications Inactive Administered Medications - up to 3 most recent administrations Medication Order MAR Action Action Date Dose Rate Site acetaminophen (Tylenol) tablet 975 mg 975 mg, Oral, ONCE, 1 dose, On Wed03/23/23 at 0645, Administer with a SIP of water only. Maximum dose of acetaminophen is 4,000 mg from all sources in 24 hours., Day of Surgery (Day of Procedure), Routine Given 03/23/2023 6:31 AM EDT 975 mg apixaban (Eliquis) tablet 5 mg 5 mg, Oral, 2 TIMES DAILY, First dose on Wed03/23/23 at 2200, Until Discontinued, Anticoagulant, Routine, Restricted anticoagulant, choose the most appropriate response: Approved indication of non-valvular atrial fibrillation Given 03/24/2023 9:01 AM EDT 5 mg Given 03/23/2023 9:32 PM EDT 5 mg atorvastatin (Lipitor) tablet 80 mg 80 mg, Oral, NIGHTLY, First dose on Wed03/23/23 at 2100, Until Discontinued, Routine Given 03/23/2023 9:29 PM EDT 80 mg BUpivacaine (pf) (Marcaine) (5 mg/mL) 0.5% injection 150 mg 150 mg (30 mL), Subcutaneous, ONCE, 1 dose, On Wed03/23/23 at 0830, EP (Intra-Procedure), Routine Given 03/23/2023 8:08 AM EDT 150 mg buPROPion SR (Wellbutrin SR) tablet 150 mg 150 mg, Oral, 2 TIMES DAILY, First dose on Wed03/23/23 at 1030, Until Discontinued, DO NOT CRUSH OR OPEN, Routine Given 03/24/2023 9:01 AM EDT 150 mg Given 03/23/2023 9:30 PM EDT 150 mg finasteride (Proscar) tablet 5 mg 5 mg, Oral, DAILY, First dose on Wed03/23/23 at 1030, Until Discontinued, DO NOT SPLIT, CRUSH OR OPEN, Routine Given 03/24/2023 9:01 AM EDT 5 mg Given 03/23/2023 3:59 PM EDT 5 mg furosemide (Lasix) tablet 40 mg 40 mg, Oral, 2 TIMES DAILY, First dose on Wed03/23/23 at 1030, Until Discontinued, Routine Given 03/24/2023 9:01 AM EDT 40 mg Given 03/23/2023 9:30 PM EDT 40 mg lactated ringers infusion 1,000 mL, at 100 mL/hr, Intravenous, CONTINUOUS, Starting on Wed03/23/23 at 0645, Until Wed03/23/23 at 1132, Day of Surgery (Day of Procedure) Restarted 03/23/2023 7:37 AM EDT New Bag 03/23/2023 6:35 AM EDT 1,000 mLs 100 mL/hr lidocaine (Xylocaine) (20 mg/mL) 2% injection 400 mg 400 mg (20 mL), Subcutaneous, ONCE, 1 dose, On Wed03/23/23 at 0830, EP (Intra-Procedure), Routine Given 03/23/2023 8:08 AM EDT 400 mg sodium chloride 0.9 % (flush) (BD PosiFlush Normal Saline 0.9) flush 5 mL 5 mL, Intravenous, 2 TIMES DAILY, First dose on Wed03/23/23 at 1030, Until Discontinued, Recovery (Recovery-Hospital Unit), Routine Given 03/24/2023 9:02 AM EDT 5 mLs Given 03/23/2023 9:33 PM EDT 5 mLs Given 03/23/2023 10:16 AM EDT 5 mLs sotaloL (Betapace) tablet 160 mg 160 mg, Oral, ONCE, 1 dose, On Wed03/23/23 at 2100, Routine Given 03/23/2023 9:30 PM EDT 160 mg sotaloL (Betapace) tablet 160 mg 160 mg, Oral, 2 TIMES DAILY, First dose on Wed03/24/23 at 0900, Until Discontinued, Routine Given 03/24/2023 9:01 AM EDT 160 mg documented in this encounter Active and Recently Administered Medications Times are shown in EDT. Scheduled Medication Order 03/22/2023 03/23/2023 03/24/2023 acetaminophen (Tylenol) tablet 975 mg (COMPLETED) 975 mg, Oral, ONCE, 1 dose, On Wed03/23/23 at 0645, Administer with a SIP of water only. Maximum dose of acetaminophen is 4,000 mg from all sources in 24 hours., Day of Surgery (Day of Procedure), Routine 630 (Given - Provider: Dannielle Camargo, MARY) apixaban (Eliquis) tablet 5 mg 5 mg, Oral, 2 TIMES DAILY, First dose on Wed03/23/23 at 2200, Until Discontinued, Anticoagulant, Routine, Restricted anticoagulant, choose the most appropriate response: Approved indication of non-valvular atrial fibrillation 2131 (Given - Provider: Maranda Giraldo RN) 900 (Given - Provider: Noemi Andrews, MARY) atorvastatin (Lipitor) tablet 80 mg 80 mg, Oral, NIGHTLY, First dose on Wed03/23/23 at 2100, Until Discontinued, Routine 2128 (Given - Provider: Maranda Giraldo RN) BUpivacaine (pf) (Marcaine) (5 mg/mL) 0.5% injection 150 mg (COMPLETED) 150 mg (30 mL), Subcutaneous, ONCE, 1 dose, On Wed03/23/23 at 0830, EP (Intra-Procedure), Routine 08 (Given - Provider: Aissatou Tena RN) buPROPion SR (Wellbutrin SR) tablet 150 mg 150 mg, Oral, 2 TIMES DAILY, First dose on Wed03/23/23 at 1030, Until Discontinued, DO NOT CRUSH OR OPEN, Routine 1030 (Not Given - Provider: Florecita Shanks RN - Reason: See comment - Comment: immediate post-op)2129 (Given - Provider: Maranda Giraldo RN) 900 (Given - Provider: Noemi Andrews RN) ceFAZolin (Ancef) 2 g vial attach to sodium chloride 0.9% 100 mL Mini-Bag Plus (COMPLETED) 2 g, Intravenous, ONCE, 1 dose, On Wed03/23/23 at 0645, Administer over 30 Minutes, Redose every 3 hours if CrCl is greater than 20. Redose every 8 hours if CrCl is less than 20., Day of Surgery (Day of Procedure), Indication for (Active or Suspected): Prophylaxis 745 (New Bag - Provider: Enoc Turner CRNA) finasteride (Proscar) tablet 5 mg 5 mg, Oral, DAILY, First dose on Wed03/23/23 at 1030, Until Discontinued, DO NOT SPLIT, CRUSH OR OPEN, Routine 1030 (Not Given - Provider: Florecita Shanks RN - Reason: See comment - Comment: immediate post-op)1559 (Given - Provider: Florecita Shanks RN) 09 (Given - Provider: Noemi Andrews RN) furosemide (Lasix) tablet 40 mg 40 mg, Oral, 2 TIMES DAILY, First dose on Wed03/23/23 at 1030, Until Discontinued, Routine 1030 (Not Given - Provider: Florecita Shanks RN - Reason: See comment - Comment: immediate post-op)213 (Given - Provider: Maranda Giraldo RN) 09 (Given - Provider: Noemi Andrews RN) lidocaine (Xylocaine) (20 mg/mL) 2% injection 400 mg (COMPLETED) 400 mg (20 mL), Subcutaneous, ONCE, 1 dose, On Wed03/23/23 at 0830, EP (Intra-Procedure), Routine 08 (Given - Provider: Aissatou Tena RN) sodium chloride 0.9 % (flush) (BD PosiFlush Normal Saline 0.9) flush 5 mL 5 mL, Intravenous, 2 TIMES DAILY, First dose on Wed03/23/23 at 1030, Until Discontinued, Recovery (Recovery-Hospital Unit), Routine 1016 (Given - Provider: Florecita Shanks RN)213 (Given - Provider: Maranda Giraldo RN) 09 (Given - Provider: Noemi Andrews RN) sotaloL (Betapace) tablet 160 mg (COMPLETED) 160 mg, Oral, ONCE, 1 dose, On Wed03/23/23 at 2100, Routine 213 (Given - Provider: Maranda Giraldo RN) sotaloL (Betapace) tablet 160 mg 160 mg, Oral, 2 TIMES DAILY, First dose on Wed03/24/23 at 0900, Until Discontinued, Routine 09 (Given - Provid er: Noemi Andrews RN) Continuous Medication Order 03/22/2023 03/23/2023 03/24/2023 lactated ringers infusion (CANCELED) 1,000 mL, at 100 mL/hr, Intravenous, CONTINUOUS, Starting on Wed03/23/23 at 0645, Until Wed03/23/23 at 1132, Day of Surgery (Day of Procedure) 0635 (New Bag - Provider: Betina Camargo RN)0736 (Paused - Provider: Enoc Turner CRNA - Comment: Switch to gravity)0737 (Restarted - Provider: Enoc Turner CRNA)0916 (Anesthesia Volume Adjustment - Provider: Enoc Turner CRNA) PRN Medication Order 03/22/2023 03/23/2023 03/24/2023 acetaminophen (Tylenol) tablet 650 mg 650 mg, Oral, EVERY 4 HOURS PRN, Starting on Wed03/23/23 at 1013, Until Wed03/24/23 at 1850, Pain, Fever, Mild-moderate pain (1-6), Maximum dose of acetaminophen is 4000 mg from all sources in 24 hours. When ordered for pain, acetaminophen should be given even when other ordered pain medications are indicated., Recovery (Recovery-Hospital Unit), Routine iohexoL (Omnipaque) (350 mg/mL) solution 5-100 mL (CANCELED) 5-100 mL, Intravenous, EVERY 5 MIN PRN, Starting on Wed03/23/23 at 0808, Until Wed03/23/23 at 1132, Per Protocol, Venogram, For use in the electrophysiology lab (EP lab) only with direct provider supervision and verbal order., EP (Intra-Procedure), Routine 0809 (Given - Provider: Enoc Turner CRNA - Comment: pre pacemaker venogram)0832 (Given - Provider: Enoc Turner CRNA) lidocaine (Xylocaine) 1% (10 mg/mL) injection 3 mg 3 mg (0.3 mL), Subcutaneous, ONCE PRN, 1 dose, Starting on Wed03/23/23 at 1013, Until Wed03/24/23 at 1850, for discomfort with PIV insertion, Recovery (Recovery-Hospital Unit), Routine melatonin tablet 3 mg 3 mg, Oral, NIGHTLY PRN, Starting on Wed03/23/23 at 1014, Until Wed03/24/23 at 1850, insomnia, Routine sodium chloride 0.9 % (flush) (BD PosiFlush Normal Saline 0.9) flush 5-20 mL 5-20 mL, Intravenous, EVERY 1 MIN PRN, Starting on Wed03/23/23 at 1013, Until Wed03/24/23 at 1850, flush, Flush pertains to all indwelling lines. Flush per protocol found in the job aid using the link provided on this medication record., Recovery (Recovery-Hospital Unit), Routine documented in this encounter Care Teams Chemical Process Analyst Relationship Specialty Start Date End Date Jessie Bose APRN [address] [place] [address] PCP - General Geriatric Medicine 05/14/20 documented as of this encounter
--- OUTSIDE RECORDS SUMMARY | 2024-01-24 15:52 | XMS_ITS | Encounter Summary ---
Author Organization [facility] Address [facility] [place] [address] Care Team Providers Care Roving Sizer Name Role Phone Jessie Bose APRN Primary Care Provider [phone] Encounter Details Date Type Department Care Team (Latest Contact Info) Description 06/23/2023 10:00 AM EST - 06/23/2023 11:59 PM [facility] Hospital Encounter [place] [address] Discharge Disposition: Home Social History Tobacco Use [...] Delayed Release (E.C.)Indications:Lazo ry artery disease involving [place] coronary artery of [place] heart without angina pectoris Take 1 tablet [...] Upcoming Encounters Date Type Department Care Team (Stacie pacheco Contact Info) Description 03/19/2024 10:00 AM EDT Hospital Encounter [place] [address] Arrived documented as of this encounter Procedures Procedure Name Priority Date/Time Associated Diagnosis Comments PRO PM INTERROGATION REMOTE UP TO 90 DAYS Routine 04/27/2023 4:50 AM EDT documented in this encounter Results * Cardiac Device Check - Remote (04/27/2023 4:50 AM EDT) Anatomical Region Laterality Modality Other 04/27/2023 4:50 AM EDT Arik Gonzalez MD IMPLANTABLE CARDIAC DEVICE documented in this encounter Visit Diagnoses Not on filedocumented in this encounter Care Teams Roving Sizer Relationship Specialty Start Date End Date Jessie Bose APRN [address] [facility] [place] [address] PCP - General Geriatric Medicine 05/14/20 documented as of this encounter
--- OUTSIDE RECORDS SUMMARY | 2024-01-24 15:52 | XMS_ITS | Encounter Summary ---
Author Organization [facility] Address [facility] [place] [address] Care Team Providers Care Dispensary Attendant Name Role Phone Jessie Bose APRN Primary Care Provider [phone] Reason for Referral * Diagnostic Test (Routine) - Closed Specialty Diagnoses / Procedures Referred By Contac t Referred To Contact Cardiology Diagnoses Lightheadedness Sinus node dysfunction Procedures Ziopatch 48 Hrs-15 Days Rian Richards MD [facility] [address] [place] [address] [facility] [place] [address] Referral ID Status Reason Start Date Expiration Date V isits Requested Visits Authorized [id number] Closed Specialty Service Requested 05/26/2022 08/26/2022 1 1 Reason for Visit * Diagnostic Test (Routine) - Closed Specialty Diagnoses / Procedures Referred By Contac t Referred To Contact Cardiology Diagnoses Lightheadedness Sinus node dysfunction Procedures Ziopatch 48 Hrs-15 Days Rian Richards MD [facility] [address] [place] [address] [facility] [place] [address] Referral ID Status Reason Start Date Expiration Date V isits Requested Visits Authorized [id number] Closed Specialty Service Requested 05/26/2022 08/26/2022 1 1 Encounter Details Date Type Department Care Team (Latest Contact Info) Description 05/26/2022 11:30 AM EST - 05/26/2022 11:59 PM EST Hospital Encounter Non-Invasive Cardiology Lab [facility] [place] [address] [place] [address] Rian Richards MD [facility] [place] [address] Lightheadedness; Sinus node dysfunction Discharge Disposition: Home Social History Tobacco Use [...] Sig Dispensed Refills Start Date End Date acetaminophen 325 mg Capsule Take 500 mg by mouth as needed. 05/10/2019 budesonide-formoteroL (SYMBICORT) 160-4.5 mcg/actuation HFA Aerosol Inhaler Inhale into the lungs. 01/09/2013 triamcinolone (KENALOG) 0.1 % Cream Apply topically. 04/10/2019 finasteride (PROSCAR) 5 mg Tablet daily. 0 08/15/2018 aspirin 81 mg Tablet, Delayed Release (E.C.)Indications:Lazo ry artery disease involving [place] coronary artery of [place] heart without angina pectoris Take 1 tablet [...] 4 hours as needed. Use with spacer spironolactone (Aldactone) 25 mg TabletIndications:Essent ial hypertension Take 1 tablet by mouth daily. 90 tablet 1 04/10/2022 10/13/2022 furosemide (Lasix) 40 mg TabletIndications:Essent ial hypertension Take 1 tablet by mouth 2 times daily. 180 tablet 1 03/06/2022 04/09/2023 amoxicillin (AMOXIL) 500 mg Capsule Take 500 mg by mouth as needed. 0 12/13/2014 09/29/2022 doxazosin (CARDURA) 4 mg Tablet Take 4 mg by mouth daily. 0 01/26/2015 03/22/2023 losartan (COZAAR) 100 mg Tablet Take 100 mg by mouth daily. 03/24/2023 metFORMIN (GLUCOPHAGE) 500 mg tablet Take 1,000 mg by mouth 2 times daily (with meals). 03/24/2023 penicillin v potassium (VEETID) 500 mg tablet 500mg, PO, BID 08/06/2010 documented as of this encounter Plan of Treatment Upcoming Encounters Date Type Department Care Team (Late st Contact Info) Description 03/19/2024 10:00 AM EDT Hospital Encounter [place] [address] Arrived documented as of this encounter Procedures Procedure Name Priority Date/Time Associated Diagnosis Comments ZIOPATCH 48 HRS-15 DAYS Routine 05/26/2022 11:55 AM EST Lightheadedness Sinus node dysfunction documented in this encounter Results * Ziopatch 48 Hrs-15 Days (05/26/2022 11:55 AM EST) Anatomical Region Laterality Modality Other Narrative 06/19/2022 6:35 PM EST [facility] ? Zio Patch? Ambulatory Cardiac Event Monitor Report Duration of recording -05/26/2022 to 06/09/2022, 13 days 13 hours after artifact removed. Summary Data Predominant rhythm -sinus rhythm. Bundle Branch Block/IVCD was present. QRS morphology changes were present due to possible Rate Related Bundle Branch Block. Minimum sinus rate 32 bpm Maximum sinus rate 96 bpm Average heart rate 60 bpm Atrial fibrillation was not seen There were no pauses of 3 seconds or longer. Ectopic beats Isolated SVEs were rare (<1.0%), SVE Couplets were rare (<1.0%), and SVE Triplets were rare (<1.0%). 11 Supraventricular Tachycardia runs occurred, the run with the fastest interval lasting 9 beats with a max rate of 135 bpm, the longest lasting 8 beats with an avg rate of 95 bpm. Isolated VEs were rare (<1.0%), VE Couplets were rare (<1.0%), and no VE Triplets were present. Triggered and Patient Diary Events There were 1 triggered and 0 patient diary events: Was associated with sinus rhythm at 88 bpm Conclusion(s): ?? Rare supraventricular ectopy with rare runs of supraventricular tachycardia. Rare isolated premature ventricular complexes with rare couplets. There was 1 patient triggered event which was associated with normal sinus rhythm. Please see Zio PDF under Scans on Order for detailed data Rian Richards MD [facility] documented in this encounter Visit Diagnoses Diagnosis Lightheadedness Dizziness and giddiness Sinus node dysfunction Sinoatrial node dysfunction documented in this encounter Care Teams Dispensary Attendant Relationship Specialty Start Date End Date Jessie Bose APRN [address] [place] [address] PCP - General Geriatric Medicine 05/14/20 documented as of this encounter
--- OUTSIDE RECORDS SUMMARY | 2024-01-24 15:52 | XMS_ITS | Encounter Summary ---
Author Organization [facility] Address [facility] [place] [address] Care Team Providers Care Cane Cutter Name Role Phone JuiceJessei MELISSA Primary Care Provider [phone] Encounter Details Date Type Department Care Team (Late st Contact Info) Description 03/16/2023 11:00 AM EDT Office Visit Cardiology at [address] [place] [address] Avinash Melgar MD [facility] [place] [address] Sinus node dysfunction; Sick sinus syndrome; Dizzinesses Social History Tobacco Use Types Packs/Day Years [...] Sign Reading Time Taken Comments Blood Pressure 138/73 03/16/2023 11:27 AM EDT Pulse 61 03/16/2023 11:27 AM EDT Temperature - - Respiratory Rate - - Oxygen Saturation 97% 03/16/2023 11:27 AM EDT Inhaled Oxygen Concentration - - Weight 93.4 kg (206 lb) 03/16/2023 11:27 AM EDT Height 175.3 cm (5' 9) 03/16/2023 11:27 AM EDT Body Mass Index 30.42 03/16/2023 11:27 AM EDT documented in this encounter Progress Notes * Avinash Melgar MD - 03/16/2023 11:00 AM EDT Images from the original note were not included. New outpatient EP Consult 03/16/2023 Referring: Dr. Richards Reason: symptomatic sinus node dysfunction Pt seen accompanied by spouse Nelia Romo is a 78 y.o. male man with hypertension, hyperlipidemia, obesity, DM2 on oral medications, RJ prescribed, but non-compliant with CPAP and ASCVD with one vessel disease (Diag) managed medically after remote NSTEMI in 1998 (last cath at that time). He has bilateral inguinal hernias andhas had recurrent bouts of bowel obstruction, most recently leading to hospitalization at [facility] lastmonth. The bout was conservatively managed. Documentation suggests that it was not felt necessary secondary to his hernias, however in f/u apparently a surgeon does prefer to address these surgically. Over the past year or so he has been having episodes of lightheadedness to the point of presyncope. He denies having had bobby syncope to date. Episodes have been getting more ferquent and more severe. Some episodes are orthostatic whereas others are not. Pt had a h/o resting bradycardia - leadingto discontinuation of his carvedilol. This has not helped his symptoms. A zio patch was obtained 01/03-01/17/23 which showed him to be in sinus rhythm, avg 55 range 33-87 BPMwth occasional lowgrade supraventricular and rare lowgrade ventricular ambient ectopy. Also 19 sinus pauses 3.0 to 5.9 seconds. While many of these were noctutrnal, a number of them were during daytime hours during which [place] figures he would have been awake. A single symptomatic diary entry was made corresponding to sinus bradycardia @42 BPM. Otherwise on ROS: 1) pt has significant osteoarthritis leading to stiff body movements. He has difficulty raising either arm over the shoulder. 2) describes symptoms of irritable bowel w/ intermittent bouts of diarrhea and constipation 3) has multiple skin excoriations on his upper (and fewer on his lower) limbs which he attributes to both lesions playing with his 80 lb dog, ticks, and self-picking. Patient Active Problem List Diagnosis Code DJD DM, Type II Morbid obesity History of total knee arthroplasty(LEFT) Z96.659 CAD (coronary artery disease) I25.10 Myocardial infarction, old I25.2 Lipid disorder E78.9 Hypertension I10 RJ (obstructive sleep apnea) G47.33 Osteoarthritis of right knee M17.11 Preop testing - TKR Z01.818 12/11/2013 S/P Right total knee arthroplasty Z96.659 Obesity E66.9 Sinus node dysfunction I49.5 Diabetes mellitus E11.9 Past Surgical History: Procedure Laterality Date PRO ARTHROPLASTY KNEE CONDYLE & PLATEAU MEDIAL & LAT COMPARTMENTS 12/11/2013 @TOTAL KNEE ARTHROPLASTY performed by Chandra Del Rosario MD at [facility] MAIN OR H/o L shoulder surgery Soc Hx Accompanied by Nelia Has grown sons, oldest 56 etoH: recovered alcoholic quit many years ago 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 A&O x 3. No focal deficits. Mallampati III-IV Lungs clear to auscultation bilaterally Heart bradycardic , S1 S2 no murmurs, rubs or gallops Abd benign Extr no edema Skin :non-infected appearing excoriations to forearms, shins. No petichiae or bruising ECG 12/26/22 Echo 03/12/22 : Left ventricle is normal in size with mild-moderate hypertrophy. No regional wall motion abnormalities. No LVOT obstruction. Right ventricle is normal in size and function. Unable to estimate PA pressure. No hemodynamically significant cardiac valve disease. No pericardial effusion. Epicardial fat pad. Lab Results Component Value Date TSH 0.93 03/16/2023 Laboratory Results December 2022 [facility]: Test Date/Time Result Interpretation Reference Range Result Comment Calcium Level December 28, 2022 8:04am 8.8 mg/dL 8.5-10.1 Glucose Level December 28, 2022 8:04am 108 mg/dL Above high normal 74-106 Blood Urea Nitrogen December 28, 2022 8:04am 16 mg/dL 7-18 Creatinine December 28, 2022 8:04am 1.0 mg/dL 0.70-1.30 Estimated GFR (CKD-EPI 2020) December 28, 2022 8:04am 77.04 mL/min/1.73m2 The eGFR is calculated froma serum creatinine using the CKD-EPI 2020 equation. Other variables required for the equation are gender and age; this equation does not include a race coefficient. This equation has similar overall performance to previous equations except values may differ, in particular, in patients with higher values of eGFR and younger-aged adults. Total Cholesterol December 28, 2022 8:04am 177 mg/dL <200 Triglycerides Level December 28, 2022 8:04am 54 mg/dL <150 HDL Cholesterol December 28, 2022 8:04am 80 mg/dL >40 LDL Cholesterol, Calculated December 28, 2022 8:04am 87 mg/dL <100 National Cholesterol Education Program (NCEP-ATPIII) classifications: Cholesterol <200 mg/dL Desirable Cholesterol 200-239 mg/dLBorderline High Cholesterol >ze=119 mg/dL High HDL <40 mg/dL Low HDL >or=60 mg/dL High LDL<100 mg/dL Optimal LDL 100-129 mg/dL Near Optimal/Above Optimal LDL 130-159 mg/dL Borderline High LDL 160-189 mg/dL High LDL >ux=418 mg/dL Very High *The above reference range is for adults 18 years or older. Total Protein December 28, 2022 8:04am 7.2 g/dL 6.4-8.2 Albumin December 28, 2022 8:04am 3.7 g/dL 3.4-5.0 Total Bilirubin December 28, 2022 8:04am 0.8 mg/dL 0.2-1.0 Alkaline Phosphatase December 28, 2022 8:04am 127 U/L Above high normal 46-116 Sodium Level December 28, 2022 8:04am 136 mmol/L 136-145 Potassium Level December 28, 2022 8:04am 4.1 mmol/L 3.5-5.1 Chloride Level December 28, 2022 8:04am 102 mmol/L 98-107 Carbon Dioxide Level December 28, 2022 8:04am 27.4 mmol/L 21.0-32.0 Anion Gap December 28, 2022 8:04am 6.6 mmol/L 3-11 Aspartate Amino Transf (AST/SGOT) December 28, 2022 8:04am 18 U/L 15-37 Alanine Aminotransferase (ALT/SGPT) December 28, 2022 8:04am 17 U/L 16-63 Assessment: Symptomatic sinus node dysfunction, I.e. sick sinus syndrome. Manifest by resting average bradycardia, lengthy sinus pauses and chronotropic insufficiency (highest HR recorded on his Zio was only 87 BPM or 61.7% maximum predicted HR for age. As atrioventricular lupe dromotropy appears excellent, this is not a Lyme or other tick-borne related ailment. Plan: 1) r/o hypothyroidism w/ TSH (returned WNL - see above) 2) Recommend left sided, dual-chamber transvenous permament pacemaker to be placed w/ Anesthesia assistance given difficult airway, RJ hx Rationales for, intended benefits and potential risk of planned procedures reviewed. The patient indicated understanding and agreement with the plan Avinash Melgar MD, PhD, [facility] Cardiac Electrophysiology documented in this encounter Plan of Treatment Upcoming Encounters Date Type Department Care Team (Late st Contact Info) Description 03/19/2024 10:00 AM EDT Hospital Encounter [place] [address] Arrived documented as of this encounter Procedures Procedure Name Priority Date/Time Associated Diagnosis Comments HC THYROID STIMULATING HORMONE, SERUM Routine 03/16/2023 12:58 PM EDT Sinus node dysfunction Sick sinus syndrome documented in this encounter Results * TSH (03/16/2023 12:58 PM EDT) TSH 0.93 0.27 - 4.20 mcIU/mL [facility] Comment: Reference Interval (mcIU/mL): Females: ??First Trimester: 0.23-3.88 ??Second Trimester: 0.22-3.90 ??Third Trimester: 0.44-4.66 Blood 03/16/2023 12:5 8 PM EDT 03/16/2023 1:26 PM EDT Narrative Resulting Agency Comment Spec In Lab Avinash Melgar MD CHEMISTRY ORDERABLES [facility] [place] [address] documented in this encounter Visit Diagnoses Diagnosis Sinus node dysfunction Sinoatrial node dysfunction Sick sinus syndrome Sinoatrial node dysfunction Dizzinesses documented in this encounter Care Teams Cane Cutter Relationship Specialty Start Date End Date Jessie Bose APRN [address] [place] [address] PCP - General Geriatric Medicine 05/14/20 documented as of this encounter
--- OUTSIDE RECORDS SUMMARY | 2024-01-24 15:52 | XMS_ITS | Encounter Summary ---
Author Organization [facility] Address [facility] [place] [address] Care Team Providers Care Tuber Machine Cutter Name Role Phone Jessie Bose APRN Primary Care Provider [phone] Reason for Referral * Diagnostic Test (Routine) - Closed Specialty Diagnoses / Procedures Referred By Contac t Referred To Contact Cardiology Diagnoses Sinus bradycardia Procedures Ziopatch 48 Hrs-15 Days Rina Richards MD [facility] [address] [place] [address] [facility] [place] [address] Referral ID Status Reason Start Date Expiration Date V isits Requested Visits Authorized [id number] Closed Specialty Service Requested 12/24/2022 12/24/2023 1 1 Encounter Details Date Type Department Care Team (Late st Contact Info) Description 12/24/2022 3:20 PM EDT Office Visit Cardiology at [address] [address] Rian Richards MD [facility] [address] [place] [address] Sinus bradycardia; Lightheadedness Social History Tobacco Use Types Packs/Day Years [...] Sign Reading Time Taken Comments Blood Pressure 152/72 12/24/2022 3:32 PM EDT Pulse 70 12/24/2022 3:32 PM EDT Temperature - - Respiratory Rate - - Oxygen Saturation 96% 12/24/2022 3:32 PM EDT Inhaled Oxygen Concentration - - Weight 100.3 kg (221 lb 1.6 oz) 12/24/2022 3:32 PM EDT Height 175.3 cm (5' 9) 12/24/2022 3:32 PM EDT Body Mass Index 32.65 12/24/2022 3:32 PM EDT documented in this encounter Progress Notes * Rian Richards MD - 12/24/2022 3:20 PM EDT Images from the original note were not included. [facility] [place] [address] [address] Cardiology Clinic Note CC: CAD Patient Name: Corona Romo HPI: Corona Romo is a 77 y.o. 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 Last seen in November 2020. States that he is feeling vidal dokey. No specific cardiac complaints to report today aside from continued lightheaded episodes and general tiredness. Feels lightheaded all the time. States thathappens everyday generally in the context of getting up too quickly. Has not lost consciousness or had any close calls. Stopping carvedilol and trying to stay hydrated did not seem to help at all. He checks his HR once per day now but was checking everyday-- HR consistently in the 40s or low 50sbut almost never higher than that. BP has been very good at home-- 130s/60-70s. 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 - enjoys hunting-- deer, bear - Tobacco: [...] node dysfunction I49.5 Diabetes mellitus E11.9 Current Outpatient Medications: spironolactone (Aldactone) 25 mg tablet, TAKE ONE TABLET BY MOUTH EVERY DAY, Disp: 90 tablet, Rfl: 0 latanoprost (Xalatan) 0.005 % Drops, INSTILL ONE DROP INTO BOTH EYES AT BEDTIME, Disp: , Rfl: furosemide (Lasix) 40 mg Tablet, Take 1 tablet by mouth 2 times daily., Disp: 180 tablet, Rfl: 1 acetaminophen 325 mg Capsule, Take by mouth., Disp: , Rfl: budesonide-formoteroL (SYMBICORT) 160-4.5 mcg/actuation HFA Aerosol Inhaler, Inhale into the lungs., Disp: , Rfl: triamcinolone (KENALOG) 0.1 % Cream, Apply topically., Disp: , Rfl: finasteride (PROSCAR) 5 mg Tablet, daily., Disp: , Rfl: 0 aspirin 81 mg Tablet, Delayed Release (E.C.), Take 1 tablet by mouth daily., Disp: 30 tablet, Rfl: 3 cholecalciferol, Vitamin D3, 50 mcg (2,000 unit) Capsule, Take 2,000 Units by mouth daily., Disp: ,Rfl: amLODIPine (NORVASC) 10 mg Tablet, Take 1 tablet by mouth daily., Disp: 90 tablet, Rfl: 3 nitroGLYcerin (NITROSTAT) 0.3 mg Tablet, Sublingual, Place 1 tablet under the tongue every 5 minutes as needed for Chest pain. (Patient not taking: Reported on 09/29/2022), Disp: 90 tablet, Rfl: 12 atorvastatin (LIPITOR) 80 mg Tablet, Take 1 tablet by mouth nightly., Disp: , Rfl: 0 doxazosin (CARDURA) 4 mg Tablet, Take 4 mg by mouth daily., Disp: , Rfl: 0 losartan (COZAAR) 100 mg Tablet, Take 100 mg by mouth daily., Disp: , Rfl: metFORMIN (GLUCOPHAGE) 500 mg tablet, Take 1,000 mg by mouth 2 times daily (with meals)., Disp: , Rfl: buPROPion SR (Wellbutrin SR) 150 mg tablet sustained-release 12 hr, Take 150 mg by mouth 2 times daily., Disp: , Rfl: albuterol (PROVENTIL HFA;VENTOLIN HFA) 90 mcg/Actuation inhaler, Inhale 2 puffs into the lungs every 4 hours as needed. Use with spacer , Disp: , Rfl: penicillin v potassium (VEETID) 500 mg tablet, 500mg, PO, BID, Disp: , Rfl: Patient Vitals for the past 24 hrs: Pulse BP SpO2 12/24/22 1532 70 152/72 96 % CONST: Pleasant, Well-appearing NEURO: Oriented x3; [...] 64 bpm, normal ECG Diagnostic Studies: GORGE (05/2022) Conclusion(s): Rare supraventricular ectopy with rare [...] imaging studies ASSESSMENT: Corona Romo is a 77 y.o. man with hypertension, hyperlipidemia, obesity, DM2 on oral medications,RJ on CPAP and ASCVD with one vessel disease (Diag) managed medically after remote NSTEMI in 1998 (last cath at that time). He is currently on 5 antihypertensive medications including carvedilol, amlodipine, losartan, spironolactone, and furosemide; also on doxazosin for BPH. Here for routing follow up appointment and is feeling about the same as at our last visit. He continues to report HR in the 40s with daily episodes of lightheadedness (which sounds orthostatic). His HR in the clinic today is in the 70s and avg HR was 60 on his prior Zio from 05/2022. I am not sure how to explain to discrepancy; will repeat another ZIO as it has been 7 months since the last study and he continues to have sxs. PLAN: # Hypertension, resistant - controlled on home readings-- 130/60-70s - continue amlodipine 10 mg daily, losartan 100 mg daily, lasix 20 mg BID, and spironolactone 25 mgdaily - continue hold carvedilol 6.25 mg BID due to bradycardia and pauses - Not using CPAP; needs to treat RJ; referral back to sleep med # Sinus node dysfunction, 3.5 second pauses # Episodic lightheadedness - even after stopping his BB, HR remains in 40-50s at home and he is experiencing episodic lightheadedness - continue to hold BB for now - Zio from 05/2022 and today's ecg are reassuring - TTE from 03/2022 showed normal LV/RV function and no valve disease - will repeat Zio given discrepancy between HRs at home vs in clinic given that he has persistent sxs # ASCVD, chronic, stable - No chest pain - 2017 stress test w/out ischemia or scar # Lipid disorder - continue atorvastatin 80mg daily # RJ (obstructive sleep apnea) - not using his CPAP machine - c/o daytime fatigue, frequent napping, and loud snoring - referral back to sleep medicine to discuss alternate masks, options, etc # Diabetes mellitus Rian Richards MD, FACP, FACC Section of Cardiovascular Medicine [facility] Restoration Silversmiththreader [facility] documented in this encounter Plan of Treatment Upcoming Encounters Date Type Department Care Team (Late st Contact Info) Description 03/19/2024 10:00 AM EDT Hospital Encounter Non-Invasive [place] [address] Arrived documented as of this encounter Procedures Procedure Name Priority Date/Time Associated Diagnosis Comments EKG 12-LEAD Routine 12/24/2022 3:52 PM EDT documented in this encounter Results * Ziopatch 48 Hrs-15 Days (12/31/2022 6:36 AM EDT) Anatomical Region Laterality Modality Other Narrative 01/26/2023 1:50 PM EDT [facility] ? Zio Patch? Ambulatory Cardiac Event Monitor Report Duration of recording - 13 days 18 hours ??(after removal of artifact) Summary Data Predominant rhythm - sinus rhythm Minimum sinus rate - 31 bpm Maximum sinus rate - 87 bpm Average heart rate - 55 bpm Atrial fibrillation - none Ectopic beats atrial premature beats (APC? s) occasional (1.7%) ventricular premature beats (VPC's) rare Tachyarrhythmias There were 8 episodes of SVT up to 5 beats as fast as 146 BPM Bradyarrhythmias There were 19 pauses as long as 5.4 seconds Triggered and Patient Diary Events There were 0 triggered and 1 patient diary events which occurred with sinus Conclusion(s): ?? Predominant rhythm is sinus Rare brief asymptomatic runs of SVT There were 19 pauses lasting as long as 5.4 seconds Rian Richards MD CARDIAC SERVICES O RDERABLES * EKG 12 Lead (12/24/2022 3:52 PM EDT) Ventricular rate 69 BPM MUSE SYSTEM Atrial Rate 69 BPM MUSE SYSTEM P-R Interval 172 ms MUSE SYSTEM QRS Duration 150 ms MUSE SYSTEM Q-T Interval 426 ms MUSE SYSTEM QTC Calculated (Bezet) 456 ms MUSE SYSTEM Calculated P [place] 88 degrees MUSE SYSTEM Calculated R [place] -48 degrees MUSE SYSTEM Calculated T [place] 29 degrees MUSE SYSTEM INTERPRETATION Normal sinus rhythm Right bundle branch block Left anterior fascicular block Bifascicular block Abnormal ECG When compared with ECG of 26-DEC-2021 13:14, Right bundle branch block has replaced Incomplete right bundle branch block Confirmed by MD Bebo, Parviz ([id number]) on 12/25/2022 9:39:47 AM MUSE SYSTEM 12/24/2022 3:52 PM EDT 12/25/2022 9:39 AM EDT Unknown ECG ORDERABLES MUSE SYSTEM documented in this encounter Visit Diagnoses Diagnosis Sinus bradycardia Other specified cardiac dysrhythmias Lightheadedness Dizziness and giddiness Sinus bradycardia Other specified cardiac dysrhythmias documented in this encounter Care Teams Tuber Machine Cutter Relationship Specialty Start Date End Date Jessie Bose APRN [address] [place] [address] PCP - General Geriatric Medicine 05/14/20 documented as of this encounter
--- OUTSIDE RECORDS SUMMARY | 2024-01-24 15:52 | XMS_ITS | Encounter Summary ---
Author Organization [facility] Address [facility] [place] [address] Care Team Providers Care Bolt Maker Name Role Phone Jessie Bose APRN Primary Care Provider [phone] Reason for Visit * Reason Onset Date Comments Medication Refill 04/10/2022 Encounter Details Date Type Department Care Team (Late st Contact Info) Description 04/10/2022 Refill Cardiology at [address] [address] Rian Richards MD [facility] [place] [address] Medication Refill Social History Tobacco Use Types [...] AM EDT Hospital Encounter Non-[place] [phone] Arrived documented as of this encounter Visit Diagnoses Diagnosis Essential hypertension- Primary Unspecified essential hypertension documented in this encounter Care Teams Bolt Maker Relationship Specialty Start Date End Date Jessie Bose APRN [address] [place] [address] PCP - General Geriatric Medicine 05/14/20 documented as of this encounter
--- OUTSIDE RECORDS SUMMARY | 2024-01-24 15:52 | XMS_ITS | Encounter Summary ---
Author Organization [facility] Address [facility] Mariela hirsch [place] [id number] Care Team Providers Care Supervisor Gear Repair Name Role Phone Jessie Bose APRN Primary Care Provider [phone] Reason for Visit * Consultation (Routine) - Closed Specialty Diagnoses / Procedures Referred By Contac t Referred To Contact Sleep Center Diagnoses RJ (obstructive sleep apnea) Rian Richards MD [facility] [place] [address] [facility] [address] [place] [address] Referral ID Status Reason Start Date Expiration Date V isits Requested Visits Authorized [id number] Closed Consult, Test & Treat 05/26/2022 05/26/2023 1 1 Encounter Details Date Type Department Care Team (Late st Contact Info) Description 09/29/2022 10:00 AM EDT Office Visit Sleep Center at [facility] [address] [place] [address] Catarino Lama DO [facility] [place] [address] RJ (obstructive sleep apnea) (Primary Dx) Social History Tobacco Use Types Packs/Day Years [...] Sign Reading Time Taken Comments Blood Pressure 158/78 09/29/2022 10:14 AM EDT Pulse 50 09/29/2022 10:14 AM EDT Temperature - - Respiratory Rate - - Oxygen Saturation 98% 09/29/2022 10:14 AM EDT Inhaled Oxygen Concentration - - Weight 99.4 kg (219 lb 3.2 oz) 09/29/2022 10:14 AM EDT Height 175.3 cm (5' 9) 09/29/2022 10:14 AM EDT Body Mass Index 32.37 09/29/2022 10:14 AM EDT documented in this encounter Progress Notes * Catarino Lama, - 09/29/2022 10:00 AM EDT Sleep Medicine Consultation/New Patient Note Chief Complaint: Re-establish care for obstructive sleep apnea HPI: Mr. Lisa Romo is a 77 y.o. male seen at the request of Rian Richards MD for advice regarding obstructive sleep apnea. Accompanying the patient today is his . Diagnosed with severe sleep apnea 03/10/2005: AHI 50, min saturation 75%. Particularly severe in REM sleep. 07/21/2005: PAP titration. Unable to tolerate CPAP due to panic and claustraphobia He was then empirically prescribed CPAP at 10 cm and was able to use for a long period of time. Pressures were then increased to 12 cm 06/06/2007. 08/27/2007: PAP titration. Finished at a pressure of 12 cm. Lost to follow up afterwards. He had used CPAP off and on since then. He did get a replacemeent machine at some point. Pressure was adjusted to 15 cm He still has a problem with cluastraphobia. He stopped using the CPAP a few years ago. Was using CPAP off and on for many years. Willing to start up again per gis geographer recommendations. Snoring: snores heavy Observed Apneas: no Mouth Breathing at night: sometimes Dry Mouth in morning: sometimes Nocturnal Gasping: not often Nasal Obstruction: no Weight: BMI 32 Sleep Pattern: Location: home Bed/Recliner/Wedge: bed # of pillows under head: 2 Position: mostly side. Bedtime: 8-9 Latency: not long Awakenings: every 1.5 hours will wake up Wake time: 4-630 Questionnaires: Patient-reported scores: 09/29/2022 [facility] 8 (Low Risk) Insomnia Severity Index 7 (No clinically significant insomnia) Multiple values from one day are sorted in reverse-chronological order Daytime Symptoms: Upon Awakening: feels tired Daytime fatigue/sleepiness: yes Naps: no Involuntary Dozing: yes. If he sits down for 5 minutes he is out. Wont stay down for more than 30 minutes. Driving: Difficulty with sleepiness and driving: no Close calls related to sleepiness: no Accidents related to sleepiness: no Sleep Review of Symptoms: Parasomnias: Sleep Walking: no Dream Enactment: yes. Punch and kicks in sleep. Motor: RLS: no PLMS: no Narcolepsy: deferred Past/Childhood Sleep History: see HPI Patient Active Problem List Diagnosis Code ??? [...] dysfunction I49.5 ??? Diabetes mellitus E11.9 Past Medical History: Diagnosis Date ??? Anxiety ??? CAD (coronary artery disease) ??? CIS - DM, Type II 01/31/2009 ??? HLD (hyperlipidemia) ??? HTN (hypertension) ??? Obesity ??? RJ (obstructive sleep apnea) Past Surgical History: Procedure Laterality Date ? ? PRO ARTHROPLASTY KNEE CONDYLE & PLATEAU MEDIAL & LAT COMPARTMENTS 12/11/2013 @TOTAL KNEE ARTHROPLASTY performed by Chandra Del Rosario MD at [facility] MAIN OR Current Outpatient Medications Medication Sig Dispense Refill ??? latanoprost (Xalatan) 0.005 % Drops INSTILL ONE DROP INTO BOTH EYES AT BEDTIME ??? spironolactone (Aldactone) 25 mg Tablet Take 1 tablet by mouth daily. 90 tablet 1 ??? furosemide (Lasix) 40 mg Tablet Take 1 tablet by mouth 2 times daily. 180 tablet 1 ??? acetaminophen 325 mg Capsule Take by mouth. ??? budesonide-formoteroL (SYMBICORT) 160-4.5 mcg/actuation HFA Aerosol Inhaler Inhale into the lungs. ??? triamcinolone (KENALOG) 0.1 % Cream Apply topically. ??? finasteride (PROSCAR) 5 mg Tablet daily. 0 ??? aspirin 81 mg Tablet, Delayed Release (E.C.) Take 1 tablet by mouth daily. 30 tablet 3 ??? cholecalciferol, Vitamin D3, 50 mcg (2,000 unit) Capsule Take 2,000 Units by mouth daily. ??? amLODIPine (NORVASC) 10 mg Tablet Take 1 tablet by mouth daily. 90 tablet 3 ??? atorvastatin (LIPITOR) 80 mg Tablet Take 1 tablet by mouth nightly. 0 ??? doxazosin (CARDURA) 4 mg Tablet [...] 500 mg tablet 500mg, PO, BID ??? nitroGLYcerin (NITROSTAT) 0.3 mg Tablet, Sublingual Place 1 tablet under the tongue every 5 minutes as needed for Chest pain. (Patient not taking: Reported on 09/29/2022) 90 tablet 12 No current facility-administered medications for this visit. Social History: Employment: retired Alcohol: no Smoking: no Caffeine: 3-4 pots a day. Now 3-5 cups during the day. Family: ROS: CON: weight change: see HPI ENT: nasal obstruction: see HPI NEURO: sleep related headaches: sometimes a light headache CV: chest pain: hx of ascvd. PUL: SOB: no PSY: Depression: yes. GI: GERD: once in awhile : Nocturia: yes. frequent MSK: Pain that interferes with sleep: deferred ALL: Environmental Allergies: no MSE: Alert and appropriate: yes Oriented to person, place and time: yes Mood: pleasant Affect: euthymic PE: General: awake, NAD Body mass index is 32.37 kg/m??. Vitals: 09/29/22 1014 BP: 158/78 Pulse: 50 SpO2: 98% Weight: 99.4 kg (219 lb 3.2 oz) Height: 175.3 cm (5' 9) Eyes: Conjunctival injection: clear EOM: intact Eyelid hooding: mild ENT: Facial deformity: none Nares: patent Pul: Respirations: regular Waking saturation at rest: 98% Neck/Lymphatics: Lymphadenopathy:supple, trachea midline Cardiac: LE edema over shins: none Neuro: Rest tremor in UE bilatearlly: regular Musculoskeletal: Gait and stance: normal - 05/28/2019 Currently on CPAP 15 AHI 1.7 Name: LISA ROMO Study Date: 03/12/2022 10:11 AMBP: 139/78 mmHg Patient Location: HR: 60 : 1945 Height: 68.5 in Account: [id number] Age: 77 yrs Weight: 220 lb Gender: Male BSA: 2.1 m2 Ordering Physician: JAMES KLEIN Referring Physician: JAMES KLEIN Performed By: Cory Malik RDCS Reason For Study: Dizziness, Arrythmia History: Bradycardia w PACs Exam Location: [facility]. Interpretation Summary Left ventricle is normal in size with mild-moderate hypertrophy. No regional wall motion abnormalities. No LVOT obstruction. Right ventricle is normal in size and function. Unable to estimate PA pressure. No hemodynamically significant cardiac valve disease. No pericardial effusion. Epicardial fat pad. ?? Procedure Complete-[id number]. Satisfactory quality. Atrial ectopy occurs frequently during the study. ?? Left Ventricle Left ventricle is of normal size. Wall thickness is mildly increased. Moderately increased thickness of the basal septum with no obstruction to LV outflow. There is no ventricular septal defect. Left ventricular systolic function is normal. The left ventricular ejection fraction is 59% by Oreilly's biplane. There are no segmental wall motion abnormalities. Assessment: Mr. Lisa Romo is a 77 y.o. male who is seen to re-establish care for obstructive sleep apnea (RJ). The pathophysiology of, the reasons to treat and treatment options for RJ were allreviewed with the patient today. Untreated obstructive sleep apnea presents a moderate risk of morbidity (ie hypertension etc). History of severe sleep apnea and likely still present given the snoring and symptoms (despite the weight loss). As he has stopped using CPAP around 2019, he will need to re qualify per medicare guidelines. I would recommend an attended PSG. We can hopefully try some masks on this night as well to find something that fits him better. He was agreeable. We did discuss other treatment options like BPAP or hypoglossal nerve stimulator. CPAP is certainly the most effective and would be the recommended treatment. He was agreeable to plan for PAP. He has notably had problems with claustrophobia with the CPAP previously. It took multiple attempts with titration study, but he finally was able to do it. He is in need of a new machine ([employer]) and supplies. Current mask is not serviceable. He did note some dream enactment which may be related to the untreated severe RJ. He also has significant nocturia. Hopefully will improve with treatement of RJ, but may be urological. Consider urology referral if symptoms persist. History provided by: patient and his Records reviewed:reviewed old sleep records, reviewed cardiology note, reviewed last echo. I did review the last download but there were only a few days on it. The patient confirms that study results can be sent to them via Letter. If a home care company is required the following home care company is requested: no preference. Used to use [facility], but closed down. Consider [facility] . Recommendations: 1) Polysomnography - attended. 2) Driving safety was reviewed with patient. If the patient feels too sleepy to drive he/she knows not to drive. If he/she becomes sleepy while driving he/she will machine tack puller and nap. The patient indicates understanding of these issues and agrees with the plan. Catarino Lama DO If billing on time: Total time of visit, 60 minutes, including face to face counseling, chart review and documentation. documented in this encounter Plan of Treatment Upcoming Encounters Date Type Department Care Team (Late st Contact Info) Description 03/19/2024 10:00 AM EDT Hospital Encounter Non-[place] [address] Arrived documented as of this encounter Visit Diagnoses Diagnosis RJ (obstructive sleep apnea)- Primary Obstructive sleep apnea (adult) (pediatric) documented in this encounter Care Teams Supervisor Gear Repair Relationship Specialty Start Date End Date Jessie Bose APRN [address] [place] [address] PCP - General Geriatric Medicine 05/14/20 documented as of this encounter
--- OUTSIDE RECORDS SUMMARY | 2024-01-24 15:52 | XMS_ITS | Encounter Summary ---
Author Organization [facility], Later [facility] Address [facility] [place] [address] Care Team Providers Care Compensation And Benefits Administrator Name Role Phone Jessie Bose APRN Primary Care Provider [phone] Reason for Referral * Diagnostic Test (Routine) - Closed Specialty Diagnoses / Procedures Referred By Contac t Referred To Contact Cardiology Diagnoses Sinus bradycardia Procedures Ziopatch 48 Hrs-15 Days Rian Richards MD [facility] [address] [place] [address] [facility] [place] [address] Referral ID Status Reason Start Date Expiration Date V isits Requested Visits Authorized [id number] Closed Specialty Service Requested 12/24/2022 12/24/2023 1 1 Reason for Visit * Diagnostic Test (Routine) - Closed Specialty Diagnoses / Procedures Referred By Contac t Referred To Contact Cardiology Diagnoses Sinus bradycardia Procedures Ziopatch 48 Hrs-15 Days Rian Richards MD [facility] [address] [place] [address] [facility] [place] [address] Referral ID Status Reason Start Date Expiration Date V isits Requested Visits Authorized [id number] Closed Specialty Service Requested 12/24/2022 12/24/2023 1 1 Encounter Details Date Type Department Care Team (Latest Contact Info) Description 12/31/2022 6:36 AM EDT - 12/31/2022 11:59 PM EDT Hospital Encounter Non-Invasive Cardiology Lab [facility] [place] [address] Rian Richards MD [facility] [place] [address] Sinus bradycardia Discharge Disposition: Home Social History Tobacco Use [...] bimatoprost (LUMIGAN) 0.01 % Drops daily. 10/28/2022 latanoprost (Xalatan) 0.005 % Drops INSTILL ONE [...] Delayed Release (E.C.)Indications:Lazo ry artery disease involving lower el[place]a coronary artery of lower [place] heart without angina pectoris Take 1 tablet [...] Use with spacer spironolactone (Aldactone) 25 mg tabletIndications:Essent ial hypertension TAKE ONE TABLET BY MOUTH EVERY DAY 90 tablet 10/14/2022 01/27/2023 furosemide (Lasix) 40 mg TabletIndications:Essent ial hypertension Take 1 tablet by mouth 2 times daily. 180 tablet 1 03/06/2022 04/09/2023 doxazosin (CARDURA) 4 mg Tablet Take 4 [...] AM EDT Hospital Encounter [place] [address] Arrived documented as of this encounter Procedures Procedure Name Priority Date/Time Associated Diagnosis Comments ZIOPATCH 48 HRS-15 DAYS Routine 12/31/2022 6:36 AM EDT Sinus bradycardia documented in this encounter Results * Ziopatch 48 Hrs-15 Days (12/31/2022 6:36 AM EDT) Anatomical Region Laterality Modality Other Narrative 01/26/2023 1:50 PM EDT [facility] ? Zio Patch? Ambulatory Cardiac Event Monitor [...] seconds Rian Richards MD [facility] documented in this encounter Visit Diagnoses Diagnosis Sinus bradycardia Other specified cardiac dysrhythmias documented in this encounter Care Teams Compensation And Benefits Administrator Relationship Specialty Start Date End Date Jessie Bose APRN [address] [place] [address] PCP - General Geriatric Medicine 05/14/20 documented as of this encounter
--- OUTSIDE RECORDS SUMMARY | 2024-01-24 15:52 | XMS_ITS | Encounter Summary ---
Author Organization [facility] Address [facility] [place] [address] Care Team Providers Care Water Gas Operator Name Role Phone Jessie Bose APRN Primary Care Provider [phone] Reason for Visit * Reason Comments Medication Refill Encounter Details Date Type Department Care Team (Late st Contact Info) Description 01/25/2023 Refill Cardiology at [address] [phone] [facility] [address] [place] [address] Medication Refill Social History Tobacco Use Types [...] AM EDT Hospital Encounter Non-Invasive [place] [phone] Arrived documented as of this encounter Visit Diagnoses Diagnosis Essential hypertension- Primary Unspecified essential hypertension documented in this encounter Care Teams Water Gas Operator Relationship Specialty Start Date End Date Jessie Bose APRN [address] [place] [address] PCP - General Geriatric Medicine 05/14/20 documented as of this encounter
--- OUTSIDE RECORDS SUMMARY | 2024-01-24 15:52 | XMS_ITS | Encounter Summary ---
Author Organization Formerly [facility], [facility]–1983 Address [facility] [place] [address] Care Team Providers Care Senior Water Resources Engineer Name Role Phone Jessie Bose APRN Primary Care Provider [phone] Reason for Referral * Consultation (Routine) - Closed Specialty Diagnoses / Procedures Referred By Contac t Referred To Contact Sleep Center Diagnoses RJ (obstructive sleep apnea) Rian Richards MD [facility] [address] [place] [address] [facility] Sleep Medicine [address] [place] [address] Referral ID Status Reason Start Date Expiration Date V isits Requested Visits Authorized [id number] Closed Consult, Test & Treat 05/26/2022 05/26/2023 1 1 * Diagnostic Test (Routine) - Closed Specialty Diagnoses / Procedures Referred By Contac t Referred To Contact Cardiology Diagnoses Lightheadedness Sinus node dysfunction Procedures Ziopatch 48 Hrs-15 Days Rian Richards MD [facility] [address] [place] [address] [facility] [place] [address] Referral ID Status Reason Start Date Expiration Date V isits Requested Visits Authorized [id number] Closed Specialty Service Requested 05/26/2022 08/26/2022 1 1 Encounter Details Date Type Department Care Team (Late st Contact Info) Description 05/26/2022 11:00 AM EST Office Visit Cardiology at [address] [place] [address] Rian Richards MD [facility] [address] [place] [address] Lightheadedness; Sinus node dysfunction; RJ (obstructive sleep apnea) Social History Tobacco Use Types Packs/Day Years [...] Sign Reading Time Taken Comments Blood Pressure 138/69 05/26/2022 10:52 AM EST Pulse 53 05/26/2022 10:52 AM EST Temperature - - Respiratory Rate - - Oxygen Saturation 97% 05/26/2022 10: 52 AM EST Inhaled Oxygen Concentration - - Weight 99.2 kg (218 lb 11.2 oz) 022 10:52 AM EST Height 175.3 cm (5' 9) 05/26/2022 10:5 2 AM EST Body Mass Index 32.3 05/26/2022 10:52 AM EST documented in this encounter Patient Instructions * Patient Instructions* Rian Richards MD - 05/26/2022 11:00 AM EST - Needs ZIO documented in this encounter Progress Notes * Rian Richards MD - 05/26/2022 11:00 AM EST Images from the original note were not included. [facility] [place] [address] Cardiology Clinic Note CC: CAD Patient Name: Corona Romo HPI: Corona Romo is a 77 y.o. 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 Last seen in November 2020. HRs have been in the 40-60s even after stopping carvedilol in December. He still gets dizzy quite a lot. Does not feel as though stopping carvedilol helped at all. Has not lost consciousness or had anyclose calls. He saw EP 2 weeks after our last visit in December. Recommended treating his RJ and improving hydration. He tried but has not been able to tolerate his CPAP mask. 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 acetaminophen 325 mg Capsule Oral ??? albuterol (PROVENTIL HFA;VENTOLIN HFA) 90 mcg/Actuation inhaler 2 puffs, EVERY 4 HOURS PRN ??? amLODIPine (NORVASC) 10 mg, Oral, DAILY ??? amoxicillin (AMOXIL) 500 mg, Oral, PRN ??? aspirin EC 81 mg, Oral, DAILY ??? atorvastatin (LIPITOR) 80 mg Tablet 1 tablet, Oral, NIGHTLY ??? budesonide-formoteroL (SYMBICORT) 160-4.5 mcg/actuation HFA Aerosol Inhaler Inhalation ??? buPROPion SR (WELLBUTRIN SR) 150 mg, 2 TIMES DAILY ??? cholecalciferol (Vitamin D3) 2,000 Units, Oral, DAILY ??? doxazosin (CARDURA) 4 mg, Oral, DAILY ??? finasteride (PROSCAR) 5 mg Tablet DAILY ??? furosemide (LASIX) 40 mg, Oral, 2 TIMES DAILY ??? losartan (COZAAR) 100 mg, DAILY ??? [...] file Tobacco Use ??? Smoking status: Never ??? Smokeless tobacco: Never Vaping Use ??? Vaping Use: Never used Substance and Sexual Activity ??? Alcohol use: [...] for BPH. As mentioned previously, he has been experiencing episodic lightheadedness, which is a relatively new symptom for him. He had a Zio in October which showed an avg HR of 54 bpm and multiple pauses, the longest being 3.8 seconds. At that visit, I recommended discontinuing his carvedilol, which he has now been off for over 5 months. He has a log of his blood pressure and heart rates with him today, and he is still getting heart rates mostly in the 40s-50s despite discontinuing his beta-eyal. I amgoing to repeat a Zio to get a better sense for his range of heart rates as well as to see if he isstill having significant pauses. If he is, I will refer him back to electrophysiology for a pacemaker PLAN: # Hypertension, resistant - continue amlodipine 10 mg daily, losartan 100 mg daily, lasix 40 mg BID, and spironolactone 25 mgdaily - [...] continue to hold BB for now - repeat ZIO today # ASCVD, chronic, stable - No chest [...] MD, FACP, FACC Section of Cardiovascular Medicine [facility] Senior Care Specialistair cargo specialist supervisor [facility] [employer] [facility] documented in this encounter Plan of Treatment Upcoming Encounters Date Type Department Care Team (Late st Contact Info) Description 03/19/2024 10:00 AM EDT Hospital Encounter Non-[place] [phone] Arrived Scheduled Referrals Name Type Priority Associated Diagnoses Orde r Schedule Referral to Sleep Disorders Center Outpatient Referral Routine RJ (obstructive sleep apnea) Ordered: 05/26/2022 documented as of this encounter Results * Ziopatch 48 Hrs-15 Days (05/26/2022 11:55 AM EST) Anatomical Region Laterality Modality Other Narrative 06/19/2022 6:35 PM EST [facility] ? Zio Patch? Ambulatory Cardiac [...] giddiness Sinus node dysfunction Sinoatrial node dysfunction RJ (obstructive sleep apnea) Obstructive sleep apnea (adult) (pediatric) Lightheadedness Dizziness and giddiness Sinus node dysfunction Sinoatrial node dysfunction documented in this encounter Care Teams Senior Water Resources Engineer Relationship Specialty Start Date End Date Jessie Bose APRN [address] [place] [address] PCP - General Geriatric Medicine 05/14/20 documented as of this encounter
--- OUTSIDE RECORDS SUMMARY | 2024-01-24 15:52 | XMS_ITS | Encounter Summary ---
Author Organization [facility] [place] [address] Care Team Providers Care Prepper Name Role Phone Jessie Bose APRN Primary Care Provider [phone]- [phone] Encounter Details Date Type Department Care Team (Latest Contact Info) Description 12/24/2022 Travel Social History Tobacco Use Types Packs/Day [...] AM EDT Hospital Encounter Non[place] [address] Arrived documented as of this encounter Visit Diagnoses Not on filedocumented in this encounter Care Teams Prepper Relationship Specialty Start Date End Date Jessie Bose APRN [address] [place], [place] [address] PCP - General Geriatric Medicine 05/14/20 documented as of this encounter
--- OUTSIDE RECORDS SUMMARY | 2024-01-24 15:52 | XMS_ITS | Encounter Summary ---
Author Organization [facility] [place] [address] Care Team Providers Care Health Insurance Specialist Name Role Phone Jessie Bose APRN Primary Care Provider [phone] Reason for Visit * Reason Onset Date Comments Post Procedure Call 03/31/2023 Encounter Details Date Type Department Care Team (Late st Contact Info) Description 03/31/2023 Notes Only Cardiology at [address] [address] Lydia Pabon, RN Post Procedure Call Social History Tobacco Use Types Packs/Day Years Used Date Smoking Tobacco: Never Smokeless Tobacco: Never Alcohol Use Standard Drinks/Week Comments No 0 (1 standard drink = 0.6 oz pure alcohol) pt reports he quit years ago. alcoholic [facility] Inpatient Questions Answer Date Recorded Does Anyone [...] as of this encounter Progress Notes * Lydia Pabon RN - 03/31/2023 8:09 AM EDTSummary: Post Procedure Call: Pacemaker Implant ALISSA RN Post-Procedure Note: Date of Follow Up Call: 03/31/2023 Spoke With: Patient Unavailable Type: Not Available Procedure Type (choose all that apply): Pacemaker Leadless Pacemaker: No Performing MD: Ramón Date of Procedure: 03/23/2023 Date of Discharge: 03/24/2023 Follow Up EP Visit Scheduled?: Yes Date of EP Visit: 04/06/2023 Intra or Post Procedure Event: Did any Intra or Post Procedure Events Occur?: No Medications at Hospital Discharge: Aspirin: Yes P2Y12 Inhibitor: No Other Antiplatelet: No Warfarin: No DOAC: Yes Other Anticoagulant: No Beta Mauro (any): No Digoxin: No Diltiazem/Verapamil: No Amiodarone: No Dofetilide: No Dronedarone: No Flecainide: No Propafenone: No Sotalol: Yes PPI: No Other Antiarrhythmic: No Assessment: Free Text Note: FINAL ICD/PACEMAKER RECOMMENDATIONS: 1. Standard post implant discharge instructions (see below): 2. Medications as listed above. SOTALOL 80 mg TABLET: TAKE 1 tablet by mouth every 12 hours [NEW MEDICATIONS] STOP LOSARTAN IN SETTING OF LOW BLOOD PRESSURE. KEEP BLOOD PRESSURE LOG AT HOME AND TAKE TO PRIMARY CARE OFFICE BEFORE CONSIDERING RESTARTING. ELIQUIS 5 MG TABLET: Take 1 tablet by mouth twice daily [NEW MEDICATION] HOLD METFORMIN. RESUME TAKING Wednesday03/26/2023 IN AM You may use ice packs over the incision. Make sure to use a cloth printing inspector (such as a towel) in between the ice pack and the bare skin and that it stays DRY. Follow Up Instruction: Wound Care: -Wound will heal in approx 7-10 days.It may be tender, it may appear slightly red and bumpy and there may -be dry, crusty scabbing. These are all normal. -Inspect the wound for signs of infection which can be drainage, swelling, warmth or increased painor redness. - Do not scratch or rub the wound or apply any creams, lotions or ointments on the wound until it is completely healed. - You may cover the wound with gauze if it rubs on clothing and causes you discomfort. - Avoid direct water pressure on the wound - continue this for 7 - 10 days. Do not submerge wound for 14 days - Do not scrub or wash would if Dermabond is used - You may remove your dressing on: Wednesday, March 31 Arm Restrictions: - Do not raise your elbow on [...] for 6 weeks - No driving for maximum of 1 week documented in this encounter Plan of Treatment Upcoming Encounters Date Type Department Care Team (Late st Contact Info) Description 03/19/2024 10:00 AM EDT Hospital Encounter Non-[place] [phone] Arrived documented as of this encounter Visit Diagnoses Not on filedocumented in this encounter Care Teams Health Insurance Specialist Relationship Specialty Start Date End Date Jessie Bose APRN [address] [facility] [place] [address] PCP - General Geriatric Medicine 05/14/20 documented as of this encounter
--- OUTSIDE RECORDS SUMMARY | 2024-01-24 15:52 | XMS_ITS | Encounter Summary ---
Author Organization [facility] Address [facility] [place] [address] Care Team Providers Care Curriculum Specialist Name Role Phone Jessie Bose APRN Primary Care Provider [phone] Reason for Visit * Auth/Cert (Routine) Specialty Diagnoses / Procedures Referred By Contac t Referred To Contact Diagnoses Sick sinus syndrome Dizziness and giddiness Sinus node dysfunction [I49.5]Sick sinus syndrome [I49.5]Dizzinesses [R42] Procedures PRO INSERT NEW OR REPLACE HEART PACER XVENOUS ATRIAL/VENTRICULAR ELECTROPHYSIOLOGY PROCEDURE INSERT PERM PACEMAKER W\TRANSVENOUS ELECTRODES; ATRIAL & VENTRICULAR (WRVU 8.52) Avinash Melgar MD [facility] [place] [address] [facility] Referral ID Status Reason Start Date Expiration Date Visits Re quested Visits Authorized [id number] 1 1 Encounter Details Date Type Department Care Team (Latest Contact Info) Description 03/23/2023 5:45 AM EDT - 03/24/2023 4:50 PM EDT Hospital Encounter Heart and Vascular Unit Level 4 [place] [phone] Avinash Melgar MD [facility] [place] [address] Arik Gonzalez MD [facility] [place] [address] Sinus node dysfunction; Sick sinus syndrome; Dizzinesses; Atrial fibrillation, unspecified type Discharge Disposition: Home Social History Tobacco Use [...] Sign Reading Time Taken Comments Blood Pressure 118/68 03/24/2023 12:09 PM EDT Pulse 77 03/24/2023 12:09 PM EDT Temperature 36.6 ??C (97.8 ??F) 03/24/2023 1 2:09 PM EDT Respiratory Rate 18 03/24/2023 12:0 9 PM EDT Oxygen Saturation 95% 03/24/2023 12: 09 PM EDT Inhaled Oxygen Concentration - - Weight 92.9 kg (204 lb 12.9 oz) 03/24/2023 3:51 AM EDT Height 175.3 cm (5' 9) [...] the incision. Make sure to use a protective clothing issuer (such as a towel) in between the [...] F. The office scheduling phone number is [phone]. ARM MOVEMENT RESTRICTIONS POST-IMPLANT - Do not [...] this product, please call the office at [phone]. * Attachments The following attachments cannot be sent through Care Everywhere. 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 Romo is a 78M [...] DC summary Coy Maloney MD 03/24/2023 Pager: [phone] I supervised the above dual chamber pacemaker [...] and alarms set appropriately. Afib 60's-70's on director of cardiac cath lab. Pt awake, A&Ox4. Denies chest pain/SOB/Nausea. - [...] EP lab now. Avinash Melgar MD, PhD, [facility] Cardiac Electrophysiology 03/23/2023 7:06 AM documented in [...] PM (Arrive by 12:40 PM) Cardiology at [address] [address] Arrive at: [place] [facility] MAY 13 PSG May 7:30 PM Sleep Center at [address] [address] Arrive at: [place] [address] [place] JUN 24 Office Visit with Amy Guardado RN Jun 1:00 PM (Arrive by 12:40 PM) Cardiology at [address] [address] Arrive at: [place] [facility] Transportation: family or friend will provide Current Functional Ability: Independent DME Needed at Discharge: none Patient is insured through: Primary Insurance: [employer] MANAGED MEDICARE Payor: AARP MANAGED MEDICARE / [facility] / Product Type: *No [...] AM EDT Hospital Encounter Non-Invasive [place] [address] Arrived documented as of this encounter Procedures [...] Sinus node dysfunction Sick sinus syndrome Dizzinesses Cardioversion Elective Arrhythmia External (88505) Paroxysmal Atrial Fibrillation documented in this encounter Results * EKG 12 Lead (03/24/2023 11:11 AM EDT) Ventricular rate 70 BPM MUSE SYSTEM Atrial Rate 70 BPM MUSE SYSTEM P-R Interval 220 ms MUSE SYSTEM QRS Duration 144 ms MUSE SYSTEM Q-T Interval 432 ms MUSE SYSTEM QTC Calculated (Bezet) 466 ms MUSE SYSTEM Calculated R Williamson -58 degrees MUSE SYSTEM Calculated T Williamson 6 degrees MUSE SYSTEM INTERPRETATION Atrial-paced rhythm with prolonged AV conduction Right bundle branch block Left axis deviation Abnormal ECG When compared with ECG of 24-MAR-2023 00:28, Electronic atrial pacemaker has replaced Sinus rhythm Confirmed by MD Tung, Blake Noel ([id number]) on 04/01/2023 4:20:13 PM MUSE SYSTEM 03/24/2023 [...] who have questions please contact the health rn progressive care unit that requested your imaging first. ? Electronically signed by: Dora Hatch MD, [facility] ([phone]), at 03/24/2023 9:21 AM Narrative 03/24/2023 9:21 AM EDT EXAMINATION: XR [...] patients who have questions please contactthe health rn progressive care unit that requested your imaging first. Avinash Melgar MD IMG DX ORDERABLES * POCT Glucose (03/23/2023 8:53 PM EDT) [facility] POC Glucose 124 65 - 199 mg/dL [facility] Comment: Supplemental ranges: <140 mg/dL before meals <180 mg/dL all other times of the day Blood 03/23/2023 8:53 PM EDT 03/23/2023 8:53 PM EDT Avinash Melgar MD POINT OF CARE TEST O RDERABLES [facility] [place] [address] * EKG 12 Lead (03/23/2023 10:38 AM EDT) [facility] Ventricular rate 76 BPM MUSE SYSTEM QRS Duration 146 ms MUSE SYSTEM Q-T Interval 408 ms MUSE SYSTEM QTC Calculated (Bezet) 459 ms MUSE SYSTEM Calculated R Williamson -54 degrees MUSE SYSTEM Calculated T Williamson 1 degrees MUSE SYSTEM INTERPRETATION Atrial fibrillation Right bundle branch block Left anterior fascicular block Bifascicular block Abnormal ECG When compared with ECG of 24-DEC-2022 15:52, Atrial fibrillation has replaced Sinus rhythm Confirmed by MD Zabrina, Parviz ([id number]) on 03/23/2023 6:58:02 PM MUSE SYSTEM 03/23/2023 10:3 8 AM EDT 03/23/2023 6:58 PM EDT Avinash Melgar MD ECG ORDERABLES MUSE SYSTEM * POCT Glucose (03/23/2023 10:07 AM EDT) POC Glucose 99 65 - 199 mg/dL [facility] Comment: Supplemental ranges: <140 mg/dL before meals <180 mg/dL all other times of the day Blood 03/23/2023 10:0 7 AM EDT 03/23/2023 10:07 AM EDT Avinash Melgar MD POINT OF CARE TEST O RDERABLES Performing Organization Address City/[facility] Co de Phone Number [facility] [place] [address] * ELECTROPHYSIOLOGY PROCEDURE (03/23/2023 8:07 AM EDT) Anatomical Region Laterality Modality Other Narrative 03/23/2023 3:02 PM EDT Table formatting from the original result was not included. Dual Chamber Pacemaker Implant Procedure Note Patient name: Corona Romo Procedure Date: 03/23/23 Soil Science Teacher: Avinash Melgar MD, PhD Fellow: Enoc Brooks [...] the entire procedure. LEAD AND GENERATOR DATA: Dining Server Model # Serial # Generator [employer] [id number] Atrial Lead [employer] 7841-52 [id number] Ventricular Lead [employer] 5076-59 [id number] PACE/SENSE DATA: Sensed wave (mV) Threshold (V) [...] not chemically cardiovert. Avinash Melgar MD, PhD, [facility] Cardiac Electrophysiology Procedure Note Avinash Melgar MD - 03/23/2023 Dual Chamber Pacemaker Implant Procedure Note Patient name: Corona Romo Procedure Date: 03/23/23 Soil Science Teacher: Avinash Melgar MD, PhD Fellow: Enoc Brooks [...] in theentire procedure. LEAD AND GENERATOR DATA: Dining Server Model # Serial # Generator [employer] [id number] Atrial Lead [employer] 7841-52 [id number] Ventricular Lead [employer] 5076-59 [id number] PACE/SENSE DATA: Sensed wave (mV) Threshold (V) [...] not chemically cardiovert. Avinash Melgar MD, PhD, [facility] Cardiac Electrophysiology Avinash Melgar MD EP PROCEDURE ORDERAB LES * POCT Glucose (03/23/2023 6:43 AM EDT) Pathologist [facility] POC Glucose 125 65 - 199 mg/dL [facility] Comment: Supplemental ranges: <140 mg/dL before meals <180 mg/dL all other times of the day Blood 03/23/2023 6:43 AM EDT 03/23/2023 6:43 AM EDT Avinash Melgar MD POINT OF CARE TEST O RDERABLES [facility] [place] [address] * Magnesium (03/23/2023 6:39 AM EDT) Pathologist [facility] Magnesium 0.83 0.69 - 1.07 mmol/L [facility] Blood Venous Draw / Unknown 03/23/2023 6:39 AM EDT 03/23/2023 7:00 AM EDT Narrative Resulting Agency Comment Spec In Lab Thomas YANG CHEMISTRY ORDERABLES Performing Organization Address City/[facility]/ZIP Co de Phone Number [facility] [place] [address] * Blue Tube HOLD (03/23/2023 6:39 AM EDT) Blue Hold Sample in lab. [facility] Blood Venous Draw / Unknown 03/23/2023 6:39 AM EDT 03/23/2023 6:52 AM EDT Avinash Melgar MD HEMATOLOGY ORDERABLE S Performing Organization Address City/[facility]/ZIP Co de Phone Number [facility] [place] [address] * Differential, Automated (03/23/2023 6:39 AM EDT) Neutrophils % 60.5 % [facility] Neutr Abs (ANC) 3.06 1.70 - 6.10 x10(3)/[facility] Lymphocytes % 22.2 % [facility] Lymphocytes Abs 1.1 0.9 - 3.2 x10(3)/[facility] Monocytes % 11.7 % [facility] Monocyte Abs 0.6 0.3 - 0.9 x10(3)/[facility] Eosinophils % 4.6 % [facility] Eosinophils Abs 0.2 0.0 - 0.4 x10(3)/[facility] Basophils % 0.8 % [facility] Basophils Abs 0.0 0.0 - 0.1 x10(3)/[facility] Immature Gran % 0.20 % [facility] Comment: Immature granulocytes(IG's)percentage and absolute count will include metamyelocytes, myelocytes, and promyelocytes. Blood smears from CBCs yielding IG's will be scanned manually for concordance. If this scan disagrees with the automated IG or if promyelocytes are noted, a manual differential will be performed. Carolin Gran Abs 0.01 0.00 - 0.04 x10(3)/[facility] Blood 03/23/2023 6:39 AM EDT 03/23/2023 6:51 AM EDT Narrative Resulting Agency Comment Spec In Lab Avinash Melgar MD HEMATOLOGY ORDERABLE S [facility] [place] [address] * (ABNORMAL) Hemogram (03/23/2023 6:39 AM EDT) WBC 5.0 4.0 - 9.5 x10(3)/[facility] RBC 4.51(L) 4.58 - 5.54 x10(6)/[facility] Hemoglobin 13.1(L) 13.7 - 16.5 g/dL [facility] Hematocrit 39.6(L) 40.5 - 48.5 % [facility] MCV 87.8 82.9 - 93.1 [facility] MCH 29.0 27.5 - 32.1 pg [facility] MCHC 33.1 32.0 - 35.7 g/dL [facility] Platelets 160 145 - 357 x10(3)/[facility] RDWSD 46.2(H) 36.0 - 45.0 [facility] RDWCV 14.4(H) 11.4 - 13.8 % [facility] MPV 10.5 7.6 - 12.9 [facility] nRBC % Auto 0.0 % [facility] nRBC Abs Auto 0.000 0.000 - 0.000 x10(3)/mcL [facility] Blood 03/23/2023 6:39 AM EDT 03/23/2023 6:51 AM EDT Narrative Resulting Agency Comment Spec In Lab Avinash Melgar MD HEMATOLOGY ORDERABLE S [facility] [place] [address] * (ABNORMAL) BMP w/fasting Glucose (03/23/2023 6:39 AM EDT) Glucose Fasting 110(H) 65 - 99 mg/dL [facility] Comment: ?Fasting* Glucose Interpretive Criteria Normal [...] of Diabetes Mellitus, Position Statement from the [place] Diabetes Association. ??Diabetes Care, Volume 33, Supplement 1, Jul 2009 BUN 19 10 - 20 mg/dL [facility] Creatinine 1.06 0.80 - 1.50 mg/dL [facility] Sodium 140 135 - 145 mmol/L [facility] Potassium 4.2 3.5 - 5.0 mmol/L [facility] Comment: Please note: ??Patients with WBC >100,000 may have falsely elevated Potassium levels. ??For accurate Potassium quantification in these patients send serum separator tube (gold top) for subsequent determinations. ??Contact the Clinical Chemistry Laboratory if there are any questions. Chloride 107 98 - 107 mmol/L [facility] CO2 23 22 - 31 mmol/L [facility] Anion Gap 10 5 - 15 mmol/L [facility] Calcium 9.3 8.5 - 10.5 mg/dL [facility] Estimated GFR 71 >=60 mL/min/1. 73 m?? [facility] Comment: This patient's estimated GFR was [...] Melgar MD CHEMISTRY ORDERABLES Performing Organization Address City/[facility]/ZIP Co de Phone Number [facility] [place] [address] * Prothrombin Time (03/23/2023 6:39 AM EDT) PT 11.5 9.4 - 12.5 sec [facility] INR 1.0 [facility] Comment: An INR <2.0 indicates adequate [...] MD HEMATOLOGY ORDERABLE S Performing Organization Address City/[facility]/ZIP Co de Phone Number [facility] [place] [address] documented in this encounter Visit Diagnoses Diagnosis [...] Procedure), Routine 630 (Given - Provider: Dannielle Camargo RN) apixaban (Eliquis) tablet 5 mg 5 mg, [...] On Wed03/23/23 at 0830, EP (Intra-Procedure), Routine 0808 (Given - Provider: Aissatou Tena RN) buPROPion SR (Wellbutrin SR) tablet 150 mg 150 mg, Oral, 2 TIMES DAILY, First dose on Wed03/23/23 at 1030, Until Discontinued, DO NOT CRUSH OR OPEN, Routine 1030 (Not Given - Provider: Florecita Shanks RN - Reason: See comment - Comment: immediate post-op)2129 (Given - Provider: Maranda Giraldo RN) 900 (Given - Provider: Noemi Andrews, MARY) ceFAZolin (Ancef) 2 g vial attach to sodium chloride 0.9% 100 mL Mini-Bag Plus (COMPLETED) 2 g, Intravenous, ONCE, 1 dose, On Wed03/23/23 at 0645, Administer over 30 Minutes, Redose every 3 hours if CrCl is greater than 20. Redose every 8 hours if CrCl is less than 20., Day of Surgery (Day of Procedure), Indication for (Active or Suspected): Prophylaxis 0746 (New Bag - Provider: Enoc Turner CRNA) finasteride (Proscar) tablet 5 mg 5 mg, Oral, DAILY, First dose on Wed03/23/23 at 1030, Until Discontinued, DO NOT SPLIT, CRUSH OR OPEN, Routine 1030 (Not Given - Provider: Florecita Shanks RN - Reason: See comment - Comment: immediate post-op)1559 (Given - Provider: Florecita Shanks RN) 0901 (Given - Provider: Noemi Andrews, MARY) furosemide (Lasix) tablet 40 mg 40 mg, Oral, 2 TIMES DAILY, First dose on Wed03/23/23 at 1030, Until Discontinued, Routine 1030 (Not Given - Provider: Florecita Shanks RN - Reason: See comment - Comment: immediate post-op)2130 (Given - Provider: Maranda Giraldo RN) 09 (Given - Provider: Noemi Andrews RN) lidocaine (Xylocaine) (20 mg/mL) 2% injection 400 mg (COMPLETED) 400 mg (20 mL), Subcutaneous, ONCE, 1 dose, On Wed03/23/23 at 0830, EP (Intra-Procedure), Routine 0808 (Given - Provider: Aissatou Tena RN) sodium chloride 0.9 % (flush) (BD PosiFlush Normal Saline 0.9) flush 5 mL 5 mL, Intravenous, 2 TIMES DAILY, First dose on Wed03/23/23 at 1030, Until Discontinued, Recovery (Recovery-Hospital Unit), Routine 1016 (Given - Provider: Florecita Shanks RN)2133 (Given - Provider: Maranda Giraldo RN) 09 (Given - Provider: Noemi Andrews RN) sotaloL (Betapace) tablet 160 mg (COMPLETED) 160 mg, Oral, ONCE, 1 dose, On Wed03/23/23 at 2100, Routine 2130 (Given - Provider: Maranda Giraldo RN) sotaloL [...] supervision and verbal order., EP (Intra-Procedure), Routine 08 (Given - Provider: Enoc Turner CRNA - [...] Routine documented in this encounter Care Teams Curriculum Specialist Relationship Specialty Start Date End Date Jessie Bose APRN [address] [place] [address] PCP - General Geriatric Medicine 05/14/20 documented as of this encounter
--- OUTSIDE RECORDS SUMMARY | 2024-01-24 15:52 | XMS_ITS | Encounter Summary ---
Author Organization [facility] Address [facility] [place] [address] Care Team Providers Care Armature Winder Repairer Name Role Phone JuiceJessie MELISSA Primary Care Provider [phone] Reason for Visit * Reason Comments Medication Refill Encounter Details Date Type Department Care Team (Late st Contact Info) Description 04/09/2023 Refill Cardiology at [address] [phone] Rian Richards MD [facility] [address] [place] [address] Medication Refill Social History Tobacco Use Types [...] AM EDT Hospital Encounter Non-[place] [phone] Arrived documented as of this encounter Visit Diagnoses Diagnosis Essential hypertension- Primary Unspecified essential hypertension documented in this encounter Care Teams Armature Winder Repairer Relationship Specialty Start Date End Date Jessie Bose APRN [address] [place] [address] PCP - General Geriatric Medicine 05/14/20 documented as of this encounter
--- OUTSIDE RECORDS SUMMARY | 2024-01-24 15:52 | XMS_ITS | Encounter Summary ---
Author Organization [facility] [place] [address] Care Team Providers Care Lighting Fixtures Decorator Name Role Phone Jessie Bose APRN Primary Care Provider [phone] Reason for Visit * Reason Onset Date Comments Pre Procedure Call 03/18/2023 Encounter Details Date Type Department Care Team (Late st Contact Info) Description 03/18/2023 Telephone Cardiology at [address] [phone] Lydia Pabon, RN Pre Procedure Call Social History Tobacco Use Types [...] encounter Miscellaneous Notes * Telephone Encounter - Lydia Pabon RN - 03/18/2023 12:52 PM EDTSummary: Pre Procedure Call: Pacemaker Implant EP COIL SPRING ASSEMBLER COORDINATION CHECKLIST TC to pt to relay pre procedure instructions but unable to reach at number on file. LVM asking for call back at earliest convenience. Patient Name: Corona Romo Patient Performing Technician Semiconductor Development: Avinash Melgar Referring Provider: Rian Richards Date of Procedure:03/23/23 Arrival Time/ Case Time: 6:00 am / 7:30 am Check In Location: Contact Lens Technician Desk 4W Date Patient was Called: 03/18/23 Procedure: Pacemaker Implant Company: [employer] Type: DC PCM Orders: Yes Lab Orders: Yes Anesthesia: GA Discharge Plan/Disposition: OVERNIGHT/SSU Med Instructions: DIURETIC - hold spironolactone & Lasix the AM of procedure ARB - hold losartan the AM of procedure Anticoag Type: N/A DM: Yes Instructions for DM medications: Hold metformin for 2 doses (no dose PM of 03/22 or AM of 03/23) HIBICLENS?: Yes Contrast Allergy: N/A Coming from an assisted living facility?: No Any recent S/S of infection (fevers, on oral ABX)?: No Other Instructions: Clear liquids (water, apple juice, liz jose guadalupe) OK up until 2 hrs prior to procedure, nothing to eatafter midnight on day of procedure.Same Day will call 03/22. If applicable will bring CPAP from home. Will be staying overnight , understands that they will need driver examiner on day of discharge Notified pt that Blanton catheter may be placed on day of procedure depending on type & duration of case. documented in this encounter Plan of Treatment Upcoming Encounters Date Type Department Care Team (Late st Contact Info) Description 03/19/2024 10:00 AM EDT Hospital Encounter [place] [address] Arrived documented as of this encounter Visit Diagnoses Not on filedocumented in this encounter Care Teams Lighting Fixtures Decorator Relationship Specialty Start Date End Date Jessie Bose APRN [address] [place] [address] PCP - General Geriatric Medicine 05/14/20 documented as of this encounter
--- OUTSIDE RECORDS SUMMARY | 2024-01-24 15:52 | XMS_ITS | Encounter Summary ---
Author Organization [facility] [place] [address] Care Team Providers Care Seasoning Sprayer Name Role Phone Jessie Bose APRN Primary Care Provider [phone] Encounter Details Date Type Department Care Team (Latest Contact Info) Description 03/16/2023 Travel Social History Tobacco Use Types Packs/Day [...] AM EDT Hospital Encounter [place] [address] Arrived documented as of this encounter Visit Diagnoses Not on filedocumented in this encounter Care Teams Seasoning Sprayer Relationship Specialty Start Date End Date Jessie Bose APRN [address] [place], [place] [address] PCP - General Geriatric Medicine 05/14/20 documented as of this encounter
--- OUTSIDE RECORDS SUMMARY | 2024-01-24 15:52 | XMS_ITS | Encounter Summary ---
Author Organization [facility] Address [facility] [place] [address] Care Team Providers Care Service Delivery Consultant Name Role Phone Jessie Bose APRN Primary Care Provider [phone] Reason for Referral * Diagnostic Test (Routine) - Closed Specialty Diagnoses / Procedures Referred By Contac t Referred To Contact Cardiology Diagnoses Lightheadedness Dizziness Procedures Echocardiogram Transthoracic Diane Garcia APRN [facility] [place] [address] [facility] [place] [address] Referral ID Status Reason Start Date Expiration Date V isits Requested Visits Authorized [id number] Closed Specialty Service Requested 12/26/2021 12/26/2022 1 1 Reason for Visit * Diagnostic Test (Routine) - Closed Specialty Diagnoses / Procedures Referred By Contac t Referred To Contact Cardiology Diagnoses Lightheadedness Dizziness Procedures Echocardiogram Transthoracic Diane Garcia APRN [facility] [place] [address] [facility] [place] [address] Referral ID Status Reason Start Date Expiration Date V isits Requested Visits Authorized [id number] Closed Specialty Service Requested 12/26/2021 12/26/2022 1 1 Encounter Details Date Type Department Care Team (Latest Contact Info) Description 03/12/2022 9:20 AM EDT - 03/12/2022 11:59 PM EDT Hospital Encounter Non-Invasive Cardiology Lab [facility] [place] [address] Diane Garcia APRN [facility] [place] [address] Lightheadedness; Dizziness Discharge Disposition: Home Social History Tobacco Use [...] Delayed Release (E.C.)Indications: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 Use with spacer furosemide (Lasix) 40 mg TabletIndications:Essent ial hypertension Take 1 tablet by mouth 2 times daily. 180 tablet 1 03/06/2022 04/09/2023 spironolactone (Aldactone) 25 mg TabletIndications:Essent ial hypertension Take 1 tablet by mouth daily. 90 tablet 09/19/2021 04/10/2022 amoxicillin (AMOXIL) 500 mg Capsule Take 500 [...] AM EDT Hospital Encounter [place] [address] Arrived documented as of this encounter Procedures Procedure Name Priority Date/Time Associated Diagnosis Comments ECHO COMPLETE Routine 03/12/2022 10:49 AM EDT Lightheadedness Dizziness documented in this encounter Results * ECHO COMPLETE (03/12/2022 10:49 AM EDT) EF 59 HEARTLAB SYSTEM Anatomical Region Laterality Modality Cardiac Other 03/12/2022 10:1 1 AM EDT Narrative 03/12/2022 10:55 AM EDT ? Echocardiogram Report Name: LISA ROMO ?Study Date: 03/12/2022 10:11 AMBP: 139/78 mmHg ? Patient Location: 4A ? HR: 60 : 1945 ? Height: 68.5 in ? Account: [id number] Age: 77 yrs ? Weight: 220 lb Gender: Male ?BSA: 2.1 m2 Ordering Physician: DIANE GARCIA Referring Physician: DIANE GARCIA Performed By: Cory Malik RDCS Reason For Study: Dizziness, Arrythmia History: Bradycardia w PACs Exam Location: [facility]. Interpretation Summary Left ventricle is normal in size with mild-moderate hypertrophy. No regional wall motion abnormalities. No LVOT obstruction. Right ventricle is normal in size and function. Unable to estimate PA pressure. No hemodynamically significant cardiac valve disease. No pericardial effusion. Epicardial fat pad. Procedure Complete-[id number]. Satisfactory quality. Atrial ectopy occurs frequently during [...] Wyatt MD - 03/12/2022 Echocardiogram Report Name: DEMETRIUSLISA Study Date: 0:11 AMBP: 139/78 mmHg Patient Location: HR: 60 : 1945 Height: 68.5 in Account: [id number] Age: 77 yrs Weight: 220 lb Gender: Male BSA: 2.1 m2 Ordering Physician: DIANE GARCIA Referring Physician: DIANE GARCIA Performed By: Cory Malik RDCS Reason For Study: Dizziness, Arrythmia History: Bradycardia w PACs Exam Location: [facility]. Interpretation Summary Left ventricle is normal in size with mild-moderate hypertrophy. Noregional wall motion abnormalities. No LVOT obstruction. Right ventricle is normal in size and function. Unable to estimate PApressure. No hemodynamically significant cardiac valve disease. No pericardial effusion. Epicardial fat pad. Procedure Complete-[id number]. Satisfactory quality. Atrial ectopy occurs frequentlyduring the [...] Aneurysmal 15-16diffuse Diane Garcia APRN ECHO ORDERABLES documented in this encounter Visit Diagnoses Diagnosis Lightheadedness Dizziness and giddiness Dizziness Dizziness and giddiness documented in this encounter Care Teams Service Delivery Consultant Relationship Specialty Start Date End Date Jessie Bose APRN [address] [place] [address] PCP - General Geriatric Medicine 05/14/20 documented as of this encounter
--- OUTSIDE RECORDS SUMMARY | 2024-01-24 15:52 | XMS_ITS | Encounter Summary ---
Author Organization [facility] Address [facility] [place] [address] Care Team Providers Care Pattern Filer Name Role Phone Jessie Bose APRN Primary Care Provider [phone] Reason for Visit * Auth/Cert (Routine) Specialty Diagnoses / Procedures Referred By Contac t Referred To Contact Diagnoses Sick sinus syndrome Dizziness and giddiness Sinus node dysfunction [I49.5]Sick sinus syndrome [I49.5]Dizzinesses [R42] Procedures PRO INSERT NEW OR REPLACE HEART PACER XVENOUS ATRIAL/VENTRICULAR ELECTROPHYSIOLOGY PROCEDURE INSERT PERM PACEMAKER W\TRANSVENOUS ELECTRODES; ATRIAL & VENTRICULAR (WRVU 8.52) Avinash Melgar MD [facility] [place] [address] [facility] Referral ID Status Reason Start Date Expiration Date Visits Re quested Visits Authorized [id number] 1 1 Encounter Details Date Type Department Care Team (Late st Contact Info) Description 03/23/2023 7:37 AM EDT Anesthesia Event [place]rophys[place] [address] Catherine Villalobos MD [facility] [place] [address] Enoc Turner CRNA [facility] [place] [address] Anesthesia Record Procedure Summary Procedure Name Responsible Anesthesiologist Anesthesia Start Time Anesthesia Stop Time ELECTROPHYSIOLOGY PROCEDURE (Left) Catherine Villalobos MD 03/23/23 0737 03/23/23 0958 Events Date Time Event Comment 03/23/2023 0658 0737 AN Verify 0737 Start 0737 An Start Data 0746 Anesthesia Ready 0811 Procedure Start 0844 Quick Note V lead in, but requires repositioning 0847 Break/Relief In I assumed ca re for Break Relief before which we: 1. Identified the patient 2. Identified the responsible provider(s) 3. Reviewed the pertinent medical history 4. Discussed the surgical plan and course 5. Reviewed intra-op anesthesia management and issues during anesthesia 6. Set expectations for the relief (and/or post-procedure) period 7. Allowed opportunity for questions and acknowledgement of understanding Catherine Villalobos MD 0848 Quick Note V lead placed 0851 Quick Note A lead placed p t in afib 0856 AN Defib Synchronized ca rdioversion for atrial fibrillation 100j 0905 Break/Relief Out 0911 AN Defib 100j sync cardi oversion 0913 AN Defib 100j sync cardi oversion 0930 Quick Note Pacu hold 0951 an stop data 0958 Recovery or ICU Handoff 0958 Stop Meds Name Total Propofol 260 mg Propofol INF 309.3 mg Dexmedetomidine 12 mcg ceFAZolin (Ancef) 2 g vial a ttach to sodium chloride 0.9% 100 mL Mini-Bag Plus 2 g iohexoL (Omnipaque) (350 mg/mL) solution 5-100 mL 15 mL lactated ringers infusion 500 mL * Agents Name O2 Air N2O O2 Auxiliary Flowmeter 1 * Blood No blood administrations on file. Lines, Drains, and Airways Type Details Placement Removal Incision 03/23/23; 0817; Left ; chest; horizontal 03/23/23 0817 by Aissatou Tena, RN (RETIRED) Peripheral IV Line - Single Lumen 03/23/23; 0634; cephalic vein (lateral side of arm), left; [id number]-ufphse catheter system; Anatomical Landmarks; US Not Used; 20 gauge, 1 in length; MARY Chavez; distraction, tolerated well; 03/24/23; 1628 03/23/23 0634 by Dannielle Camargo RN 03/24/23 1628 by Pettengill, Noemi M, RN documented in this encounter Social History Tobacco [...] documented as of this encounter OR Notes * Anesthesia Postprocedure Evaluation - Catherine Villalobos MD - 03/23/2023 10:30 AM EDT Department of Anesthesiology Post-procedure Note Patient: Corona Romo Procedure Summary Date: 03/23/23 Room / Location: EP A-LAB ROOM 3 / [facility] EP LABS Anesthesia Start: 736 Anesthesia Stop: 957 Procedures: ELECTROPHYSIOLOGY PROCEDURE (Left) INSERT PERM PACEMAKER W\TRANSVENOUS ELECTRODES; ATRIAL & VENTRICULAR (WRVU 8.52) (Left) Diagnosis: Sinus node dysfunction Sick sinus syndrome Dizzinesses (Sinus node dysfunction [I49.5]Sick sinus syndrome [I49.5]Dizzinesses [R42]) Providers: Avinash Melgra MD Responsible Provider: Catherine Villalobos MD Anesthesia Type: MAC ASA Status: 3 All Anesthesia Providers: Anesthesiologist: Catherine Villalobos MD FLEET SALES MANAGER: Enoc Turner CRNA Vitals Value Taken Time BP 131/83 03/23/23 1600 Temp 36.6 ??C (97.9 ??F) 03/23/23 1807 Pulse 78 03/23/23 1807 Resp 22 03/23/23 1807 SpO2 96 % 03/23/23 1807 Pain Level 2 03/23/23 1600 Vitals shown include unvalidated device data. Patient Location: PACU/[facility] Level of Consciousness: Awake and Alert Pain Management: Satisfactory Analgesia PONV: None Cardiovascular Status: Hemodynamically Stable Respiratory Status: Stable Respiratory Status and Supplemental O2 (NC or FM) Postoperative Fluid Status: Intravascular EUvolemia Possible Anesthetic Complications: NONE apparent at time of evaluation Final Primary Anesthesia Type: MAC (The anesthetic type performed was the same as planned.) Comments: Catherine Villalobos MD * Anesthesia Preprocedure Evaluation - Catherine Villalobos MD - 03/22/2023 7:34 PM EDT Images from the original note were not included. Pre-Anesthesia Evaluation for: Corona saucedo 78 y.o. male. Procedure(s): ELECTROPHYSIOLOGY PROCEDURE INSERT PERM PACEMAKER W\TRANSVENOUS ELECTRODES; ATRIAL & [facility]TRICULAR [facility] Patient Active Problem List Diagnosis Date Noted ??? Diabetes mellitus 12/27/2017 ??? Sinus node dysfunction 12/02/2017 ??? Obesity 11/11/2017 ??? 12/11/2013 S/P Right total knee arthroplasty 12/11/2013 ??? Preop testing - TKR 09/09/2012 ??? Osteoarthritis of right knee 08/04/2012 ??? CAD (coronary artery disease) 06/01/2012 ??? Myocardial infarction, old 06/01/2012 ??? Lipid disorder 06/01/2012 ??? Hypertension 06/01/2012 ??? RJ (obstructive sleep apnea) 06/01/2012 ??? History of total knee arthroplasty(LEFT) 05/14/2011 ??? DJD 01/31/2009 ??? DM, Type II 01/31/2009 ??? Morbid obesity 01/31/2009 Past Medical History: Diagnosis Date ??? Anxiety ??? CAD (coronary artery disease) ??? CIS - DM, Type II 01/31/2009 ??? HLD (hyperlipidemia) ??? HTN (hypertension) ??? Obesity ??? RJ (obstructive sleep apnea) Past Surgical History: Procedure Laterality Date ? ? PRO ARTHROPLASTY KNEE CONDYLE & PLATEAU MEDIAL & LAT COMPARTMENTS 12/11/2013 @TOTAL KNEE ARTHROPLASTY performed by Chandra Del Rosario MD at [facility] MAIN OR Social History Tobacco Use ??? Smoking status: Never ??? Smokeless tobacco: Never Substance Use Topics ??? Alcohol use: No Comment: pt reports he quit years ago. alcoholic Social History Substance and Sexual Activity Drug Use No Allergies Allergen Reactions ??? Nebivolol Other (See Comments) Sinus node dysfunction- sinus madina and a 5 second pause ??? Unable To Find [Unclassified Drug] Nausea Only and Other (See Comments) All Narcotics Medications: MAR and/or home medications have been reviewed. Physical Exam: Preprocedure Vitals Current as of 03/22/231933 No BP, pulse, respiration, SpO2, or temperature recorded. Height: 175.3 cm (5' 9) (03/16/23) Weight: 93.4 kg (206 lb) (03/16/23) BMI: 30.42 IBW: 70.7 kg (155 lb 15.1 oz) Airway Assessment: Mallampati: IV TM distance: >3 FB Neck ROM: full Cardiovascular Assessment: Rhythm: regular Rate: normal (-) murmur Pulmonary Assessment: (-) wheezes Dental Assessment: Misc Assessment: IV access: Peripheral line Last Filed Perioperative Cognitive Screening None Anesthesia Plan: ASA 3 MAC, with a(n) intravenous induction Corona Romo is a 78 y.o. patient presenting for insertion of pacemaker for sick sinus syndrome. PMHx: CAD with history of remote CT (pharm stress 2018 no ischemia), history of syncopal episodes from sick sinus syndrome, NIDDM2, HTN (amlodipine, losartan, Lasix, spironolactone), RJ (not on CPAPdue to discomfort with mask), BMI 30, reactive airway disase on symbicort and albuterol, remote alcohol abuse. No airway records available. Spinal and MAC for TKA in the past. TTE: Left ventricle is normal in size with mild-moderate hypertrophy. No regional wall motion abnormalities. The left ventricular ejection fraction is 59% by Oreilly's biplane. No LVOT obstruction. Right ventricle is normal in size and function. Unable to estimate PA pressure. No hemodynamically significant cardiac valve disease. No pericardial effusion. Epicardial fat pad. Pharmacologic stress test 2018: 1. No ischemia or scar. Left ventricular function is normal. 2. Coronary and aortic calcification. Passed out while shoveling snow this winter. No syncopal episodes since that time. Able to ambulateup stairs. Plan: MAC with backup GA-LMA. The patient was informed of the risks, benefits and alternatives of anesthesia. These risks included, but were not limited to, post-operative nausea and/or vomiting, pain, sore throat, dental/lip injury, and other rare but serious complications such as cardiac instability/arrest, neurologic event, awareness, major aspiration event, severe allergic reactions, position-related nerve injuries, and need blood transfusions. All questions sought and answered. Region - Other Informed Consent: Anesthetic plan and risks discussed with patient. Use of blood products discussed with patient who consented to blood products. Plan discussed with attending. Anesthesia Screening documented in this encounter Plan of Treatment Upcoming Encounters Date Type Department Care Team (Late st Contact Info) Description 03/19/2024 10:00 AM EDT Hospital Encounter Non-[place] [address] Arrived documented as of this encounter Visit Diagnoses Not on filedocumented in this encounter Administered Medications Inactive Administered Medications - up to 3 most recent administrations Medication Order MAR Action Action Date Dose Rate Site ceFAZolin (Ancef) 2 g vial attach to sodium chloride 0.9% 100 mL Mini-Bag Plus 2 g, Intravenous, ONCE, 1 dose, On Wed03/23/23 at 0645, Administer over 30 Minutes, Redose every 3 hours if CrCl is greater than 20. Redose every 8 hours if CrCl is less than 20., Day of Surgery (Day of Procedure), Indication for (Active or Suspected): Prophylaxis New Bag 03/23/2023 7:46 AM EDT 2 g dexmedeTOMIDine (Precedex) (4 mcg/mL) bolus injection (Anesthsia) Intravenous, PRN, Starting on Wed03/23/23 at 0745, Until Wed03/23/23 at 0958, Anesthesia Intra-op, Routine Given 03/23/2023 7:57 AM EDT 4 mcg Given 03/23/2023 7:45 AM EDT 8 mcg iohexoL (Omnipaque) (350 mg/mL) solution 5-100 mL 5-100 mL, Intravenous, EVERY 5 MIN PRN, Starting on Wed03/23/23 at 0808, Until Wed03/23/23 at 1132, Per Protocol, Venogram, For use in the electrophysiology lab (EP lab) only with direct provider supervision and verbal order., EP (Intra-Procedure), Routine Given 03/23/2023 8:32 AM EDT 5 mLs Given 03/23/2023 8:09 AM EDT 10 mLs lactated ringers infusion 1,000 mL, at 100 mL/hr, Intravenous, CONTINUOUS, Starting on Wed03/23/23 at 0645, Until Wed03/23/23 at 1132, Day of Surgery (Day of Procedure) Restarted 03/23/2023 7:37 AM EDT New Bag 03/23/2023 6:35 AM EDT 1,000 mLs 100 mL/hr propofoL (Diprivan) (10 mg/mL) infusion Intravenous, CONTINUOUS PRN, Starting on Wed03/23/23 at 0744, Until Wed03/23/23 at 0958, Anesthesia Intra-op, Routine Rate/Dose Change 03/23/2023 9:14 AM EDT 20 mcg/kg/min 11.316 mL/hr Rate/Dose Change 03/23/2023 8:32 AM EDT 40 mcg/kg/min 22.6 32 mL/hr New Bag 03/23/2023 7:44 AM EDT 30 mcg/kg/min 16.974 mL/ hr propofoL (Diprivan) 10 mg/mL bolus injection (Anesthesia) Intravenous, PRN, Starting on Wed03/23/23 at 0745, Until Wed03/23/23 at 0958, Anesthesia Intra-op Given 03/23/2023 9:11 AM EDT 50 mg Given 03/23/2023 8:55 AM EDT 75 mg Given 03/23/2023 8:54 AM EDT 50 mg documented in this encounter Care Teams Pattern Filer Relationship Specialty Start Date End Date Jessie Bose APRN [address] [place], [place] [address] [address] PCP - General Geriatric Medicine 05/14/20 documented as of this encounter
--- OUTSIDE RECORDS SUMMARY | 2024-01-24 15:52 | XMS_ITS | Encounter Summary ---
Author Organization [facility] [place] [address] Care Team Providers Care Hospital Chaplain Name Role Phone JuiceJessie MELISSA Primary Care Provider [phone] Encounter Details Date Type Department Care Team (Late st Contact Info) Description 04/06/2023 1:00 PM EDT Office Visit Cardiology at [facility] [address] [place] [id number] Estella Ny RN Pacemaker Social History Tobacco Use Types [...] Sign Reading Time Taken Comments Blood Pressure 151/79 04/06/2023 12:43 PM EDT Pulse 69 04/06/2023 12:43 PM EDT Temperature - - Respiratory Rate - - Oxygen Saturation 99% 04/06/2023 12:43 PM EDT Inhaled Oxygen Concentration - - Weight 92.5 kg (204 lb) 04/06/2023 12:43 PM EDT Height 175.3 cm (5' 9) 04/06/2023 12:43 PM EDT Body Mass Index 30.13 04/06/2023 12:43 PM EDT documented in this encounter Progress Notes * Estella Ny RN - 04/06/2023 1:00 PM EDT Images from the original note were not included. Clinical Electrophysiology Device Service Note Corona Romo [id number] 04/06/2023 History: Mr. Romo is a 78M with CAD, T2DM, HTN, RJ who has symptomatic sick sinus syndrome for which he underwent elective dual chamber pacemaker placement on the left on 03/23/2023. Device Interrogation: Data Generator Shippo [id number] Atrial Lead Sh[employer]o [id number] Ventricular Lead [employer] [id number] Alerts Check atrial lead Diagnostics Pacing Mode: DDDR @ 70bpm Presenting EGMs: APVS 70 Underlying Rhythm: no HR <30 Atrial Episodes: none, AF 0% Ventricular Episodes: none PAC's: 2.5k PVC's: 1.1K Atrial Pacin% Ventricular Pacin% HR Histogram: Battery and Leads Voltage: ---V Status: 8yrs Magnet Rate: 100bpm Charge Time: ---sec Impedances (ohms) Sensing (mV) Thresholds HV RA RV LV RA RV LV RA RV LV --- 592 699 -- paced 12.2 --- 0.8V @ 0.4ms 0.6V @ 0.4ms ---V @ ---ms Comments: - Pocket incision is healing, dermabond still intact. Arm restrictions reinforced. - Device is functioning appropriately. Consulted with CELIA Limon regarding Atrial sensitivity, consider adjusting sensitivity at 90 day - Programming changes None, iterative changes - Follow up: in device clinic in 90 days, will continue to use remote monitoring sEtella Ny RN Attending MD Melgar 04/06/2023 documented in this encounter Plan of Treatment Upcoming Encounters Date Type Department Care Team (Late st Contact Info) Description 03/19/2024 10:00 AM EDT Hospital Encounter [place] [address] Arrived documented as of this encounter Visit Diagnoses Diagnosis Pacemaker Cardiac pacemaker in situ documented in this encounter Care Teams Hospital Chaplain Relationship Specialty Start Date End Date Jessie Bose APRN [address] [place] [address] PCP - General Geriatric Medicine 05/14/20 documented as of this encounter
--- OUTSIDE RECORDS SUMMARY | 2024-01-24 15:52 | XMS_ITS | Encounter Summary ---
Author Organization [facility] [place] [address] Care Team Providers Care Putty Tinter Maker Name Role Phone Jessie Bose APRN Primary Care Provider [phone] Encounter Details Date Type Department Care Team (Latest Contact Info) Description 05/26/2022 Travel Social History Tobacco Use Types Packs/Day [...] AM EDT Hospital Encounter Non-[place] [address] Arrived documented as of this encounter Visit Diagnoses Not on filedocumented in this encounter Care Teams Putty Tinter Maker Relationship Specialty Start Date End Date Jessie Bose APRN [address] [place], [place] [address] PCP - General Geriatric Medicine 05/14/20 documented as of this encounter
--- OUTSIDE RECORDS SUMMARY | 2024-01-24 15:52 | XMS_ITS | Encounter Summary ---
Author Organization [facility] Address [facility] [place] [address] Care Team Providers Care Volunteer Manager Name Role Phone Jessie Bose APRN Primary Care Provider [phone] [phone] Reason for Visit * Reason Onset Date Comments Medication Refill 03/06/2022 Encounter Details Date Type Department Care Team (Late st Contact Info) Description 03/06/2022 Refill Cardiology at [address] [address] Rian Richards MD [facility] [place] [address] Medication Refill Social History Tobacco Use Types [...] AM EDT Hospital Encounter Non-Invasive [place] [address] Arrived documented as of this encounter Visit Diagnoses Diagnosis Essential hypertension- Primary Unspecified essential hypertension documented in this encounter Care Teams Volunteer Manager Relationship Specialty Start Date End Date Jessie Bose APRN [address] [place] [address] PCP - General Geriatric Medicine 05/14/20 documented as of this encounter
--- OUTSIDE RECORDS SUMMARY | 2024-01-24 15:52 | XMS_ITS | Encounter Summary ---
Author Organization [facility] [place] [address] Care Team Providers Care Welder Apprentice Combination Name Role Phone Jessie Bose APRN Primary Care Provider [phone] Reason for Visit * Reason Onset Date Comments Other 03/24/2023 Cardiac Device I mplant Education Encounter Details Date Type Department Care Team (Late st Contact Info) Description 03/24/2023 Notes Only Cardiology at [address] [address] Elana Dean Other (Cardiac Device Implant Education) Social History Tobacco Use Types Packs/Day Years Used Date Smoking Tobacco: Never Smokeless Tobacco: Never Alcohol Use Standard Drinks/Week Comments No 0 (1 standard drink = 0.6 oz pure alcohol) pt reports he quit years ago. alcoholic [facility] Inpatient Questions Answer Date Recorded Does [...] as of this encounter Progress Notes * Elana Dean - 03/24/2023 11:11 AM EDT Cardiac Electrophysiology Device Clinic - Post Implant Teaching Note Corona Romo : 1945 AGE: 78 y.o. Education: Reviewed the following topics with patient and his . - Implant ID card - Implant manual - Electromagnetic Compatibility (EMC) - Remote monitoring Answered all questions and provided implant folder containing written materials of the above topics. They demonstrated understanding and was instructed to call the Cardiac Device Clinic at [phone] with any questions. Plan: Post op check: 04/06/23 day check: 06/24/23 Remote monitor: Latitude home monitor provided to patient today. Monitor set up demonstrated. Patient instructed to connect monitor and send manual transmission when they arrive home. Elana Dean 03/24/23 documented in this encounter Plan of Treatment Upcoming Encounters Date Type Department Care Team (Late st Contact Info) Description 03/19/2024 10:00 AM EDT Hospital Encounter Non-[place] [address] Arrived documented as of this encounter Visit Diagnoses Not on filedocumented in this encounter Care Teams Welder Apprentice Combination Relationship Specialty Start Date End Date Jessie Bose APRN [address] [place] [address] PCP - General Geriatric Medicine 05/14/20 documented as of this encounter
--- OUTSIDE RECORDS SUMMARY | 2024-01-24 15:53 | XMS_ITS | Encounter Summary ---
Author Organization [facility] Address [facility] [place] [address] Care Team Providers Care Rescue Instructor Name Role Phone Satnam Barnes MD Primary Care Provider [phone] Encounter Details Date Type Department Care Team (Late st Contact Info) Description 11/16/2017 Telephone Cardiology at [address] [address] Shon Bro MD [facility] [place] [address] Social History Tobacco Use Types Packs/Day Years [...] encounter Miscellaneous Notes * Telephone Encounter - Shon Bro - 11/16/2017 10:40 AM EDT This is [...] AM EDT Hospital Encounter [place] [address] Arrived documented as of this encounter Visit Diagnoses Not on filedocumented in this encounter Care Teams Rescue Instructor Relationship Specialty Start Date End Date Satnam Barnes MD PCP - General 02/07/15 07/11/19 documented as of this encounter
--- OUTSIDE RECORDS SUMMARY | 2024-01-24 15:53 | XMS_ITS | Encounter Summary ---
Author Organization [facility] Address [facility] [place] [address] Care Team Providers Care Automotive Electrical Fitter Name Role Phone Satnam Barnes MD Primary Care Provider [phone] Reason for Visit * Diagnostic Test (Routine) - Closed Specialty Diagnoses / Procedures Referred By Talita swain Referred To Contact Radiology Diagnoses Coronary artery disease with exertional angina Procedures NM Myocardial Perfusion Rest NM Pharmacologic Stress Myocardial Perfusion Alfreda Benitez MD [facility] [place] [address] [place] [address] Referral ID Status Reason Start Date Expiration Date V isits Requested Visits Authorized [id number] Closed Specialty Service Requested 11/11/2017 11/11/2018 2 2 Encounter Details Date Type Department Care Team (Latest Contact Info) Description 11/16/2017 9:30 AM EDT - 11/16/2017 9:46 AM EDT Hospital Encounter [place] [address] Alton Acevedo MD [facility] [place] [address] Discharge Disposition: Home Social History Tobacco Use [...] Dispensed Refills Start Date End Date budesonide-formoteroL (SYMBICORT) 160-4.5 mcg/actuation HFA Aerosol Inhaler Inhale into the lungs. 01/09/2013 nitroGLYcerin (NITROSTAT) 0.3 mg Tablet, SublingualIndications:C oronary artery disease with exertional angina Place 1 [...] 4 hours as needed. Use with spacer amLODIPine (NORVASC) 10 mg Tablet Take 1 tablet by mouth daily. 0 09/23/2015 12/02/2017 amoxicillin (AMOXIL) 500 mg Capsule Take 500 mg by mouth as needed. 0 12/13/2014 09/29/2022 doxazosin (CARDURA) 4 mg Tablet Take 4 mg by mouth daily. 0 01/26/2015 03/22/2023 doxazosin (CARDURA) 2 mg Tablet Take 2 mg by mouth daily. 0 12/27/2014 12/02/2017 furosemide (LASIX) 20 mg Tablet Take 20 mg by mouth 2 times daily. 0 01/26/2015 12/27/2017 aspirin 325 mg tablet Take 325 mg by mouth daily. 03/15/2018 losartan (COZAAR) 100 mg Tablet Take 100 mg by mouth daily. 03/24/2023 potassium chloride (K-DUR/KLOR-CON) 20 mEq extended release tablet Take 20 mEq by mouth 2 times daily. 11/22/2020 metFORMIN (GLUCOPHAGE) 500 mg tablet Take 1,000 mg by mouth 2 times daily (with meals). 03/24/2023 penicillin v potassium (VEETID) 500 mg tablet 500mg, PO, BID 08/06/2010 documented as of this encounter Plan of Treatment Upcoming Encounters Date Type Department Care Team (Stacie pacheco Contact Info) Description 03/19/2024 10:00 AM EDT Hospital Encounter Non-Invasive [place] [address] Arrived Pending Results Name Type Priority Associated Diagnoses Date /Time NM Myocardial Perfusion Rest Imaging Routine Coronary artery disease with exertional angina 11/16/2017 8:38 AM EDT documented as of this encounter Visit Diagnoses Not on filedocumented in this encounter Care Teams Automotive Electrical Fitter Relationship Specialty Start Date End Date Satnam Barnes MD PCP - General 02/07/15 07/11/19 documented as of this encounter
--- OUTSIDE RECORDS SUMMARY | 2024-01-24 15:53 | XMS_ITS | Encounter Summary ---
Author Organization [facility] [address] Care Team Providers Care Call Box Wirer Name Role Phone JuiceJessie MELISSA Primary Care Provider [phone] Encounter Details Date Type Department Care Team (Late st Contact Info) Description 01/20/2021 Telephone Cardiology at [address] [phone] Elly Sarabia, RN Social History Tobacco Use Types Packs/Day [...] Telephone Encounter - Elly Sarabia RN - 01/20/2021 9:32 AM EDT Spoke to patient's life partner Nelia Alvare who reports that Corona's BP has been much better with the use of Spironolactone at 25mg daily. He is also taking Coreg 6.25mg BID. Patient's BP readings have been ranging 123-145/76-81. Most SBP readings are below 140's with an occasional higher reading when patient checks right after doing work/activities which he does just outof curiosity. No c/o dizziness,SOB,CP or lightheadedness noted. Nelia states patient has been doing well. Aside from now having to deal with a leaking roof there were no concerns or questions posed. Refill was called in for Spironolactone. Elly Holbrook RNbrass burnisher [facility] documented in this encounter Plan of Treatment Upcoming Encounters Date Type Department Care Team (Late st Contact Info) Description 03/19/2024 10:00 AM EDT Hospital Encounter [place] [phone] Arrived documented as of this encounter Visit Diagnoses Not on filedocumented in this encounter Care Teams Call Box Wirer Relationship Specialty Start Date End Date Jessie Bose APRN [address] [facility] [place] [address] PCP - General Geriatric Medicine 05/14/20 documented as of this encounter
--- OUTSIDE RECORDS SUMMARY | 2024-01-24 15:53 | XMS_ITS | Encounter Summary ---
Author Organization [facility] [place] [address] Care Team Providers Care Satellite Communications Operator Name Role Phone Jessie Bose MELISSA Primary Care Provider [phone] Encounter Details Date Type Department Care Team (Late st Contact Info) Description 10/08/2021 Telephone Cardiology at [address] [address] Carol Guerin LNA Social History Tobacco Use Types Packs/Day Years [...] encounter Miscellaneous Notes * Telephone Encounter - Carol Guerin LNA - 10/14/2021 9:35 AM EDT No return call to review chart prior to TH Visit with Dr. Richards on 10/14/21. documented in this encounter Plan of Treatment Upcoming Encounters Date Type Department Care Team (Late st Contact Info) Description 03/19/2024 10:00 AM EDT Hospital Encounter Non-Invasive [place] [address] Arrived documented as of this encounter Visit Diagnoses Not on filedocumented in this encounter Care Teams Satellite Communications Operator Relationship Specialty Start Date End Date Jessie Bose APRN [address] [place] [address] PCP - General Geriatric Medicine 05/14/20 documented as of this encounter
--- OUTSIDE RECORDS SUMMARY | 2024-01-24 15:53 | XMS_ITS | Encounter Summary ---
Author Organization [facility] Address [facility] [place] [address] Care Team Providers Care Nutter Up Name Role Phone Jessie Bose APRN Primary Care Provider [phone] Reason for Referral * Diagnostic Test (Routine) - Closed Specialty Diagnoses / Procedures Referred By Contac t Referred To Contact Cardiology Diagnoses Sinus bradycardia Lightheadedness Procedures Ziopatch 48 Hrs-15 [address] [facility] [address] [place] [address] [facility] [place] [address] Referral ID Status Reason Start Date Expiration Date V isits Requested Visits Authorized [id number] Closed Specialty Service Requested 10/15/2021 04/16/2022 1 1 Encounter Details Date Type Department Care Team (Latest Contact Info) Description 10/14/2021 8:40 AM EDT TH Visit (TeleHealth) Cardiology at [address] [address] [facility] [address] [place] [address] Sinus bradycardia; Lightheadedness; Essential hypertension Social History Tobacco Use Types Packs/Day Years [...] documented as of this encounter Patient Instructions * Patient Instructions* Rian Richards MD - 10/14/2021 9:27 AM EDT F/u in 1-2 months Needs a Zio mailed to him documented in this encounter Progress Notes * Rian Richards MD - 10/14/2021 8:40 AM EDT Images from the original note were not included. Formerly [facility] [place] [address] [place] [address] Cardiology Clinic Note CC: CAD Patient Name: [...] sit down. 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 MAIN OR Current Outpatient Medications Medication [...] TIMES DAILY, Please ask patient to call coil rewind machine operator's officefor appt.before further refills-he is overdue ??? losartan [...] to follow-up on his hypertension, which is not optimally controlled at this time. He is not [...] symptom for him since our last visit. Since I last saw him, his carvedilol was increased from 3.125 mg twice daily to 6.25 mg twice daily and his pulse is routinely in the 40s. It has been in this range previously, though he did not have symptoms. He states that his symptoms are very brief and resolve on their own in just a second; has n ever had loss of consciousness or any close calls. For now, I plan to continue his current medicines and have a Zio mailed to him to further evaluate his sinus bradycardia and see whether there is anindication for proceeding with a pacemaker. If his symptoms worsen or change in any way, I will decrease the dose of his carvedilol. However, for now, with his blood pressure still poorly controlled,I am going to leave him on his [...] MD, FACP, FACC Section of Cardiovascular Medicine [facility] Salt Managerflight engineer helicopter [facility] [place] [facility] documented in this encounter Plan of Treatment Upcoming Encounters Date Type Department Care Team (Late st Contact Info) Description 03/19/2024 10:00 AM EDT Hospital Encounter Non-[place]vasive [place] [phone] Arrived documented as of this encounter Results * Ziopatch 48 Hrs-15 Days (10/15/2021 7:54 AM EDT) Anatomical Region Laterality Modality Other Narrative 10/31/2021 4:48 PM EDT [facility] ? Zio Patch Ambulatory Cardiac Event Monitor Report Duration of recording - ??11 days 3 hours enrollment /Analysis time 6 days 15 hours [...] 09:26 am ?Second longest 3.6 seconds on 10/20 at 04:10 am ?Third longest 3.2 seconds on 10/22 at 12:47 am Matilda Damon MD [facility]essa [facility] FNLA See link to pdf document of the primary data under Scans on Order below. Rian Richards MD [facility] documented in this encounter Visit Diagnoses Diagnosis Sinus bradycardia Other specified cardiac dysrhythmias Lightheadedness Dizziness and giddiness Essential hypertension Unspecified essential hypertension Sinus bradycardia Other specified cardiac dysrhythmias Lightheadedness Dizziness and giddiness documented in this encounter Care Teams Nutter Up Relationship Specialty Start Date End Date Jessie Bose APRN [address] [place] [address] PCP - General Geriatric Medicine 05/14/20 documented as of this encounter
--- OUTSIDE RECORDS SUMMARY | 2024-01-24 15:53 | XMS_ITS | Encounter Summary ---
Author Organization [facility] Address [facility] [place] [address] Care Team Providers Care Datawarehouse Developer Name Role Phone Santam Barnes MD Primary Care Provider [phone] Reason for Visit * Diagnostic Test (Routine) - Closed Specialty Diagnoses / Procedures Referred By Talita t Referred To Contact Radiology Diagnoses ASCVD (arteriosclerotic cardiovascular disease) Procedures NM Pharmacologic Stress Myocardial Perfusion Alfreda Benitez MD [facility] [place] [address] [place] [address] Referral ID Status Reason Start Date Expiration Date V isits Requested Visits Authorized [id number] Closed Specialty Service Requested 12/02/2017 12/02/2018 1 1 Encounter Details Date Type Department Care Team (Latest Contact Info) Description 12/17/2017 9:45 AM EDT Hospital Encounter [place] [address] Alton Acevedo MD [facility] [place] [address] Discharge Disposition: Home Social History Tobacco [...] lungs. 01/09/2013 nitroGLYcerin (NITROSTAT) 0.3 mg Tablet, SublingualIndications:Co ronary [...] as needed. Use with spacer amLODIPine (NORVASC) 5 mg TabletIndications:Essent ial hypertension Take 0.5 tablets by mouth daily. 30 tablet 3 12/02/2017 12/27/2017 amoxicillin (AMOXIL) 500 mg Capsule Take 500 mg by mouth as needed. 0 12/13/2014 09/29/2022 doxazosin (CARDURA) 4 mg Tablet Take 4 mg by mouth daily. 0 01/26/2015 03/22/2023 furosemide (LASIX) 20 mg Tablet Take 20 [...] AM EDT Hospital Encounter Non-Invasive [place] [address] Arrived documented as of this encounter Procedures Procedure Name Priority Date/Time Associated Diagnosis Comments NM PHARMACOLOGIC STRESS AND REST MYOCARDIAL PERFUSION Routine 12/17/2017 11:42 AM EDT ASCVD (arteriosclerotic cardiovascular disease) documented in this encounter Results * NM Pharmacologic Stress CT Component (12/17/2017 12:27 PM EDT) Anatomical Region Laterality Modality Nuclear Medicine Impressions 12/17/2017 5:18 PM EDT 1. ??No ischemia or scar. ??Left ventricular function is normal. 2. ??Coronary and aortic calcification. Preliminary report signed by: COY SKY at 12/17/2017 3:27 PM I have personally reviewed the image(s) and the residents interpretation and agree with the findings, Tae Schuster at 12/17/2017 5:18 PM Narrative 12/17/2017 5:18 PM EDT EXAMINATION: NM PHARMACOLOGIC STRESS MYOCARDIAL PERFUSION, NM PHARMACOLOGIC STRESS CT COMPONENT CLINICAL HISTORY: Exertional chest pressure/dyspnea in patient [...] Incidental CT findings: Coronary and aortic calcification. Procedure Note Tae Schuster MD - 12/17/2017 EXAMINATION: NM PHARMACOLOGIC STRESS MYOCARDIAL PERFUSION, NMPHARMACOLOGIC STRESS CT COMPONENT CLINICAL HISTORY: Exertional chest pressure/dyspnea in patient with knownASCVD TECHNIQUE: During rest, 8 mCi of technetium-99m sestamibi wasadministered intravenously. Approximately 20 minutes later, SPECT images of the heartwere obtained with reconstruction in the short, vertical long and horizontallong axis. The patient then received regadenoson intravenously at a dose of 0.4 mg.20 seconds later, 25.6 mCi of technetium-99m sestamibi was administered intravenously. Images of the heart were then again obtained with SPECT reconstruction. A low-dose CT scan was acquired for the purpose of attenuationcorrection. COMPARISON: None FINDINGS: No fixed or reversible perfusion defects are present. Functional analysis: Myocardial function: There is normal wall thickening and wall motion. Left ventricular ejection fraction: 68 % (normal greater than than 50%). Incidental CT findings: Coronary and aortic calcification. IMPRESSION 1. No ischemia or scar. Left ventricular function is normal. 2. Coronary and aortic calcification. Preliminary report signed by: COY SKY at 12/17/2017 3:27 PM I have personally reviewed the image(s) and the residents interpretationand agree with the findings, Tae Schuster at 12/17/2017 5:18 PM Alton Acevedo MD [facility] NM ORDERABLES * NM Pharmacologic Stress Myocardial Perfusion (12/17/2017 11:42 AM EDT) Anatomical Region Laterality Modality Nuclear Medicine Impressions 12/17/2017 5:18 PM EDT 1. ??No ischemia or scar. ??Left ventricular function is normal. 2. ??Coronary and aortic calcification. Preliminary report signed by: COY SKY at 12/17/2017 3:27 PM I have personally reviewed the image(s) and the residents interpretation and agree with the findings, Tae Schuster at 12/17/2017 5:18 PM Narrative 12/17/2017 5:18 PM EDT EXAMINATION: NM PHARMACOLOGIC STRESS MYOCARDIAL PERFUSION, NM PHARMACOLOGIC STRESS CT COMPONENT CLINICAL HISTORY: Exertional chest pressure/dyspnea in patient [...] Incidental CT findings: Coronary and aortic calcification. Procedure Note Tae Schuster MD - 12/17/2017 EXAMINATION: NM PHARMACOLOGIC STRESS MYOCARDIAL PERFUSION, NMPHARMACOLOGIC STRESS CT COMPONENT CLINICAL HISTORY: Exertional chest pressure/dyspnea in patient with knownASCVD TECHNIQUE: During rest, 8 mCi of technetium-99m sestamibi wasadministered intravenously. Approximately 20 minutes later, SPECT images of the heartwere obtained with reconstruction in the short, vertical long and horizontallong axis. The patient then received regadenoson intravenously at a dose of 0.4 mg.20 seconds later, 25.6 mCi of technetium-99m sestamibi was administered intravenously. Images of the heart were then again obtained with SPECT reconstruction. A low-dose CT scan was acquired for the purpose of attenuationcorrection. COMPARISON: None FINDINGS: No fixed or reversible perfusion defects are present. Functional analysis: Myocardial function: There is normal wall thickening and wall motion. Left ventricular ejection fraction: 68 % (normal greater than than 50%). Incidental CT findings: Coronary and aortic calcification. IMPRESSION 1. No ischemia or scar. Left ventricular function is normal. 2. Coronary and aortic calcification. Preliminary report signed by: COY SKY at 12/17/2017 3:27 PM I have personally reviewed the image(s) and the residents interpretationand agree with the findings, Tae Schuster at 12/17/2017 5:18 PM Alton Acevedo MD IMG NM ORDERABLES documented in this encounter Visit Diagnoses Not on filedocumented in this encounter Care Teams Datawarehouse Developer Relationship Specialty Start Date End Date Satnam Barnes MD PCP - General 02/07/15 07/11/19 documented as of this encounter
--- OUTSIDE RECORDS SUMMARY | 2024-01-24 15:53 | XMS_ITS | Encounter Summary ---
Author Organization [facility] Address [facility] [place] [address] Care Team Providers Care Implementation Consultant Name Role Phone Jessie Bose APRN Primary Care Provider [phone] Reason for Referral * Diagnostic Test (Routine) - Closed Specialty Diagnoses / Procedures Referred By Contac t Referred To Contact Cardiology Diagnoses Sinus bradycardia Lightheadedness Procedures Ziopatch 48 Hrs-15 Days Rian Richards MD [facility] [address] [place] [address] [facility] [place] [address] Referral ID Status Reason Start Date Expiration Date V isits Requested Visits Authorized [id number] Closed Specialty Service Requested 10/15/2021 04/16/2022 1 1 Reason for Visit * Diagnostic Test (Routine) - Closed Specialty Diagnoses / Procedures Referred By Contac t Referred To Contact Cardiology Diagnoses Sinus bradycardia Lightheadedness Procedures Ziopatch 48 Hrs-15 Days Rian Richards MD [facility] [address] [place] [address] [facility] [place] [address] Referral ID Status Reason Start Date Expiration Date V isits Requested Visits Authorized [id number] Closed Specialty Service Requested 10/15/2021 04/16/2022 1 1 Encounter Details Date Type Department Care Team (Latest Contact Info) Description 10/15/2021 7:53 AM EDT - 10/15/2021 11:59 PM EDT Hospital Encounter Non-Invasive Cardiology Lab [facility] [place] [address] Rian Richards MD [facility] [place] [address] Sinus bradycardia; Lightheadedness Discharge Disposition: Home Social History Tobacco Use [...] Delayed Release (E.C.)Indications:Lazo ry artery disease involving nikolski coronary artery of nikolski heart without angina pectoris Take 1 tablet [...] by mouth daily. 90 tablet 09/19/2021 04/10/2022 carvediloL (Coreg) 6.25 mg TabletIndications:Essent ial hypertension Take 1 tablet by mouth 2 times daily (with meals). 180 tablet 1 12/11/2020 12/11/2021 furosemide (LASIX) 40 mg TabletIndications:Essent ial hypertension Take 1 tablet by mouth 2 times daily. Please ask patient to call neuropsychology service director's office for appt.before further refills-he is overdue 180 tablet 07/04/2019 03/06/2022 amoxicillin (AMOXIL) 500 mg Capsule Take 500 [...] AM EDT Hospital Encounter Non-[place] [address] Arrived documented as of this encounter Procedures Procedure Name Priority Date/Time Associated Diagnosis Comments ZIOPATCH 48 HRS-15 DAYS Routine 10/15/2021 7:54 AM EDT Sinus bradycardia Lightheadedness documented in this encounter Results * Ziopatch 48 Hrs-15 Days (10/15/2021 7:54 AM EDT) Anatomical Region Laterality Modality Other Narrative 10/31/2021 4:48 PM EDT [facility] ? Zio Patch Ambulatory Cardiac Event Monitor [...] at 12:47 am Matilda Damon MD Van[facility] FNLA See link to pdf document of the primary data under Scans on Order below. Rian Richards MD [facility] documented in this encounter Visit Diagnoses Diagnosis Sinus bradycardia Other specified cardiac dysrhythmias Lightheadedness Dizziness and giddiness documented in this encounter Care Teams Implementation Consultant Relationship Specialty Start Date End Date Jessie Bose APRN [address] [place] [address] PCP - General Geriatric Medicine 05/14/20 documented as of this encounter
--- OUTSIDE RECORDS SUMMARY | 2024-01-24 15:53 | XMS_ITS | Encounter Summary ---
Author Organization [facility] Address [facility] [place] [address] Care Team Providers Care Sand Cutter Operator Name Role Phone JuiceJessie MELISSA Primary Care Provider [phone] Encounter Details Date Type Department Care Team (Latest Contact Info) Description 09/12/2020 11:00 AM EST Office Visit Cardiology at [address] [phone] [facility] [place] [address] Essential hypertension; Sinus node dysfunction; ASCVD (arteriosclerotic cardiovascular disease) Social History Tobacco [...] Rate - - Oxygen Saturation 97% 09/12/2020 10: 59 AM EST Inhaled Oxygen Concentration - - Weight 103.4 kg (227 lb 14.4 oz) 2020 10:59 AM EST Height 175.3 cm (5' 9) 09/12/2020 10:5 9 AM EST Body Mass Index 33.65 09/12/2020 10:59 AM EST documented in this encounter Progress Notes * Rian Richards MD - 09/12/2020 11:00 AM EST Images from the original note were not included. [facility] [address] [place], [place] [address] Cardiology Clinic Note CC: CAD Patient Name: [...] home right now. States that he is compliantwith his antihypertensive medications with the help of his . Denies any new cardiac symptoms. Feeling well in general. Still able to be active. No change in exertional capacity or symptoms. Still able to shovel his driveway by hand in the snow; driveway is 100yards long. Denies any exertional symptoms. 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 [...] Reports systolic readings of 180-200 mmHg routinely. A t this point, he is only taking 1 [...] his amlodipine dose to the evening and continue to take losartan each morning. His other medicines (carvedilol, furosemide) are both twice daily. I am going to have him check his blood pressure after his morning medicines and again later in the afternoon/evening for the next 1-2 weeks and call me with the data he gathers. PLAN: # Hypertension, not ideally controlled - continue carvedilol 3.125 mg BID, amlodipine 10 mg daily, losartan 100 mg daily , and lasix 40 mgBID - will have him take amlodipine at [...] MD, FACP, FACC Section of Cardiovascular Medicine [facility] Sluice Tenderflame hardening machine setter [facility] documented in this encounter Plan of Treatment Upcoming Encounters Date Type Department Care Team (Late st Contact Info) Description 03/19/2024 10:00 AM EDT Hospital Encounter Non-Invasive [place] [phone] Arrived documented as of this encounter Visit Diagnoses Diagnosis Essential hypertension Unspecified essential hypertension Sinus node dysfunction Sinoatrial node dysfunction ASCVD (arteriosclerotic cardiovascular disease) Unspecified cardiovascular disease documented in this encounter Care Teams Sand Cutter Operator Relationship Specialty Start Date End Date Jessie Bose APRN [address] [facility] [place] [address] PCP - General Geriatric Medicine 05/14/20 documented as of this encounter
--- OUTSIDE RECORDS SUMMARY | 2024-01-24 15:53 | XMS_ITS | Encounter Summary ---
Author Organization [facility] Address [facility] [place] [address] Care Team Providers Care Bookstore Clerk Name Role Phone Satnam Barnes MD Primary Care Provider [phone] Encounter Details Date Type Department Care Team (Latest Contact Info) Description 11/02/2018 8:42 AM EDT - 11/02/2018 11:59 PM EDT Hospital Encounter XRay at [address] [place] [address] Chandra Del Rosario MD [facility] [place] [address] Status post total right knee replacement; History of total knee arthroplasty, left Discharge Disposition: Home Social History Tobacco Use [...] Aerosol Inhaler Inhale into the lungs. 01/09/2013 finasteride (PROSCAR) 5 mg Tablet daily. 0 08/15/2018 aspirin 81 mg Tablet, Delayed Release (E.C.)Indications:Lazo ry artery disease involving [place] coronary artery of [place] heart without angina pectoris Take 1 tablet [...] 4 hours as needed. Use with spacer metoprolol succinate (TOPROL-XL) 50 mg Tablet Sustained Release 24 hr 0 06/15/20180 09/2019 furosemide (LASIX) 40 mg TabletIndications:Essent ial hypertension Take 1 tablet by mouth 2 times daily. 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 Thank you for letting us participate in the care of this patient. For questions regarding this report, please contact the number below. ? Electronically signed by: Jessie Alfonso [facility] ([phone]), at 11/02/2018 11:04 AM Narrative 11/02/2018 11:04 AM EDT EXAMINATION: XR KNEE 1-2 VIEWS BILAT (GENERIC) CLINICAL HISTORY: s/p B TKA TECHNIQUE: 3 views BILATERAL knee. AP view the bilateral knees, lateral views of each knee. COMPARISON: Multiple left and right knee radiographs, most recently 10/07/2016 and dating back to 10/07/2004. FINDINGS: Postoperative changes status post left total knee arthroplasty. No periprosthetic fracture or bone resorption. There is bony productive change along the superior anterior margin of the femoral component. There are quadriceps and patellar enthesophytes. Small knee joint effusion. Postoperative changes of right total knee arthroplasty. No periprosthetic fracture. No focal bone resorption. Question trace knee joint effusion. Small quadriceps enthesophyte. Procedure Note Jessie Alfonso MD - 11/02/2018 EXAMINATION: XR KNEE 1-2 VIEWS BILAT (GENERIC) CLINICAL HISTORY: s/p B TKA TECHNIQUE: 3 views BILATERAL knee. AP view the bilateral knees, lateral views of eachknee. COMPARISON: Multiple left and right knee radiographs, most recently 10/07/2016 anddating back to 10/07/2004. FINDINGS: Postoperative changes status post left total knee arthroplasty. No periprosthetic fracture or bone resorption. There is bony productivechange along the superior anterior margin of the femoral component. There are quadriceps and patellar enthesophytes. Small knee joint effusion. Postoperative changes of right total knee arthroplasty. Noperiprosthetic fracture. No focal bone resorption. Question trace knee joint effusion.Small quadriceps enthesophyte. IMPRESSION Uncomplicated bilateral total knee arthroplasties. Thank you for letting us participate in the care of this patient. Forquestions regarding this report, please contact the number below. 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
--- OUTSIDE RECORDS SUMMARY | 2024-01-24 15:53 | XMS_ITS | Encounter Summary ---
Author Organization [facility] Address [facility] [place] [address] Care Team Providers Care Tool Maintenance Technician Name Role Phone Satnam Barnes MD Primary Care Provider [phone] Reason for Visit * Diagnostic Test (Routine) - Closed Specialty Diagnoses / Procedures Referred By Talita swain Referred To Contact Radiology Diagnoses ASCVD (arteriosclerotic cardiovascular disease) Procedures NM Pharmacologic Stress Myocardial Perfusion Alfreda Benitez MD [facility] [place] [address] [place] [address] Referral ID Status Reason Start Date Expiration Date V isits Requested Visits Authorized [id number] Closed Specialty Service Requested 12/02/2017 12/02/2018 1 1 Encounter Details Date Type Department Care Team (Latest Contact Info) Description 12/17/2017 9:46 AM EDT - 12/17/2017 11:59 PM EDT Hospital Encounter [place] [address] Alton Acevedo MD [facility] [place] [address] Discharge Disposition: Home Social History Tobacco [...] AM EDT Hospital Encounter Non-[place] [phone] Arrived documented as of this encounter Procedures Procedure Name Priority Date/Time Associated Diagnosis Comments NM PHARMACOLOGIC STRESS AND REST MYOCARDIAL PERFUSION Routine 12/17/2017 11:42 AM EDT ASCVD (arteriosclerotic cardiovascular disease) documented in this encounter Visit Diagnoses Not on filedocumented in this encounter Administered Medications Inactive Administered Medications - up to 3 most recent administrations Medication Order MAR Action Action Date Dose Rate Site regadenoson (LEXISCAN) injection 0.4 mg 0.4 mg, Intravenous, ONCE, 1 dose, On Wed12/17/17 at 1200, Routine Given 12/17/2017 11:35 AM EDT 0.4 mg technetium (Tc-99m) sestamibi injection 25.6 mCi 25.6 mCi, Intravenous, ONCE PRN, 1 dose, Starting on Wed12/17/17 at 1135, Until Wed12/17/17 at 1135, Per Protocol, Routine Given 12/17/2017 11:35 AM EDT 25.6 mCi documented in this encounter Care Teams Tool Maintenance Technician Relationship Specialty Start Date End Date Satnam Barnes MD PCP - General 02/07/15 07/11/19 documented as of this encounter
--- OUTSIDE RECORDS SUMMARY | 2024-01-24 15:53 | XMS_ITS | Encounter Summary ---
Author Organization [facility] [address] Care Team Providers Care Vat Packer Name Role Phone Jessie Bose DATA WAREHOUSE ADMINISTRATOR Primary Care Provider [phone] Encounter Details Date Type Department Care Team (Late st Contact Info) Description 11/26/2021 Telephone Cardiology at [address] [phone] Elly Sarabia RN Social History Tobacco Use [...] is booking out into February*. Elly Holbrook RNsenior python developer Cardiovascular Clinic General Team-Tony documented in this encounter Plan of Treatment Upcoming Encounters Date Type Department Care Team (Late st Contact Info) Description 03/19/2024 10:00 AM EDT Hospital Encounter Non-Invasive [place] [address] Arrived documented as of this encounter Visit Diagnoses Not on filedocumented in this encounter Care Teams Vat Packer Relationship Specialty Start Date End Date Jessie Bose APRN [address] [place] [address] PCP - General Geriatric Medicine 05/14/20 documented as of this encounter
--- OUTSIDE RECORDS SUMMARY | 2024-01-24 15:53 | XMS_ITS | Encounter Summary ---
Author Organization [facility] Address [facility] [place] [address] Care Team Providers Care Able Bodied Seaman Name Role Phone Satnam Barnes MD Primary Care Provider [phone] Reason for Referral * Diagnostic Test (Routine) - Closed Specialty Diagnoses / Procedures Referred By Contac t Referred To Contact Radiology Diagnoses ASCVD (arteriosclerotic cardiovascular disease) Procedures NM Pharmacologic Stress Myocardial Perfusion Alfreda Benitez MD [facility] [place] [address] [place] [address] Referral ID Status Reason Start Date Expiration Date V isits Requested Visits Authorized [id number] Closed Specialty Service Requested 12/02/2017 12/02/2018 1 1 * Diagnostic Test (Routine) - Closed Specialty Diagnoses / Procedures Referred By Contac t Referred To Contact Radiology Diagnoses ASCVD (arteriosclerotic cardiovascular disease) Procedures NM Pharmacologic Stress CT Component Alfreda Benitez MD [facility] [place] [address] [place] [address] Referral ID Status Reason Start Date Expiration Date V isits Requested Visits Authorized [id number] Closed Specialty Service Requested 12/02/2017 12/02/2018 1 1 Encounter Details Date Type Department Care Team (Latest Contact Info) Description 12/02/2017 11:00 AM EDT Office Visit Cardiology at [address] [place] [address] Alton Acevedo MD [facility] [place] [address] Sinus arrest; ASCVD (arteriosclerotic cardiovascular disease); Essential hypertension; Coronary artery disease involving [place] heart with angina pectoris, unspecified vessel or lesion type; Lipid disorder; Sinus node dysfunction Social History Tobacco Use [...] 36.6 ??C (97.8 ??F) 12/02/2017 11:12 AM E DT Respiratory Rate - - Oxygen Saturation 96% 12/02/2017 11:12 AM EDT Inhaled Oxygen Concentration - - Weight 113.9 kg (251 lb) 12/02/2017 11:12 AM EDT Height 175.3 cm (5' 9) 12/02/2017 11:12 AM EDT Body Mass Index 37.07 12/02/2017 11:12 AM EDT documented in this encounter Patient Instructions * Patient Instructions* Alfreda Benitez MD - 12/02/2017 11:00 AM EDT - Stay off the nebivolol - Restart the amlodipine at 5mg. If you have problems with this, give us a call to consider a different medication - Continue to monitor your blood pressure and heart rate frequently - I will call you with the results of the Ziopatch and help re-arrange the stress test if safe to do so - We will see you back in about 4 weeks to follow up - Call if problems in the interim, especially if any symptoms are getting worse. If you have chest pain/pressure or severe shortness of breath at REST call 911. documented in this encounter Progress Notes * Alfreda Benitez MD - 12/02/2017 11:00 AM EDT Images from the original note were not included. [facility] [place] [address] CARDIOLOGY OUTPATIENT NOTE PRIMARY CARE PROVIDER: Satnam [...] tablet Take 20 mEq by mouth 2 timesdaily. ??? metFORMIN (GLUCOPHAGE) 500 mg tablet Take [...] ASCVD with one vessel disease (Diag) managed medicallyafter remote NSTEMI in 1998 (last cath at that time). He was last seen three weeks ago and presentstoday for acute follow up. At the time [...] requested at the last visit which have ranged from 129-182/69-92 but have overall been in the 140s- 150s systolic. Heart rates have been 52-75 but [...] again to avoid starting a new medication that would require increased monitoring (such as spironolactone). He [...] Family history: Both parents . Mother with ASCVD/PR. Brother with ASCVD/PR. Social history: Presents with his . They [...] 402 QTC Calculated (Bezet) 408 Calculated P [place] 95 Calculated R [place] -26 Calculated T [place] 16 INTERPRETATION Normal sinus rhythm Normal ECG [...] carefully for the next few weeks and continuethe BP diary. CAD (coronary artery disease) Patient [...] Results of the Ziopatch are still pending butI will follow up and discuss further with [...] visit. Alfreda Benitez PGY-4, Cardiovascular Diseases Fellow [facility] Personal Pager #[phone] I have read the fellow's note, examined the patient, and reviewed related information. I agree withthe management. Alton Acevedo MD documented in this encounter Miscellaneous Notes * Assessment & Plan Note - Alfreda Benitez MD - 12/02/2017 1:17 PM EDT Associated Problem(s): Sinus node dysfunction Sinus bradycardia improved with holding of nebivolol. Results of the Ziopatch are still pending butI will follow up and discuss further with the patient when the results are available. I will add nebivolol to his adverse drug reaction list. * Assessment & Plan Note - Alfreda Benitez MD - 12/02/2017 1:15 PM EDT Associated Problem(s): Lipid disorder Continue atorvastatin 80mg. * Assessment & Plan Note - Alfreda Benitez MD - 12/02/2017 1:11 PM EDT Associated Problem(s): CAD (coronary artery disease) Patient with [...] NTG SL prescribed from his last visit. * Assessment & Plan Note - Alfreda Benitez MD - 12/02/2017 1:08 PM EDT Associated Problem(s): Hypertension Currently poorly controlled today and [...] carefully for the next few weeks and continuethe BP diary. documented in this encounter Plan of Treatment Upcoming Encounters Date Type Department Care Team (Late st Contact Info) Description 03/19/2024 10:00 AM EDT Hospital Encounter [place] [address] Arrived documented as of this encounter Procedures Procedure Name Priority Date/Time Associated Diagnosis Comments EKG 12-LEAD Routine 12/02/2017 11:20 AM EDT Sinus arrest documented in this encounter Results * NM [...] PM Alton Acevedo MD IMG NM ORDERABLES * Nuclear Pharmacologic Stress Cardiology (12/17/2017 11:48 AM EDT) Anatomical Region Laterality Modality Other Alton Acevedo MD CARDIAC SERVICES ORD ERABLES * NM Pharmacologic Stress Myocardial Perfusion (12/17/2017 [...] PM Alton Acevedo MD IMG NM ORDERABLES * EKG 12 Lead (12/02/2017 11:20 AM EDT) Ventricular rate 62 BPM MUSE SYSTEM Atrial Rate 62 BPM MUSE SYSTEM P-R Interval 158 ms MUSE SYSTEM QRS Duration 98 ms MUSE SYSTEM Q-T Interval 402 ms MUSE SYSTEM QTC Calculated (Bezet) 408 ms MUSE SYSTEM Calculated P [place] 95 degrees MUSE SYSTEM Calculated R [place] -26 degrees MUSE SYSTEM Calculated T [place] 16 degrees MUSE SYSTEM INTERPRETATION Normal sinus rhythm Normal ECG When compared with ECG of 08-SEP-2016 10:49, No significant change was found Confirmed by MD Maurice, Rian Warner ([id number]) on 12/02/2017 9:51:54 PM MUSE SYSTEM 12/02/2017 11:2 0 AM EDT 12/02/2017 9:51 PM EDT Alton Acevedo MD ECG ORDERABLES MUSE SYSTEM documented in this encounter Visit Diagnoses Diagnosis Sinus arrest Other heart block ASCVD (arteriosclerotic cardiovascular disease) Unspecified cardiovascular disease Essential hypertension Unspecified essential hypertension Coronary artery disease involving [place] heart with angina pectoris, unspecified vessel or lesion type Lipid disorder Unspecified disorder of lipoid metabolism Sinus node dysfunction Sinoatrial node dysfunction ASCVD (arteriosclerotic cardiovascular disease) Unspecified cardiovascular disease ASCVD (arteriosclerotic cardiovascular disease) Unspecified cardiovascular disease documented in this encounter Care Teams Able Bodied Seaman Relationship Specialty Start Date End Date Satnam Barnes MD PCP - General 02/07/15 07/11/19 documented as of this encounter
--- OUTSIDE RECORDS SUMMARY | 2024-01-24 15:53 | XMS_ITS | Encounter Summary ---
Author Organization [facility] Address [facility] [place] [address] Care Team Providers Care Ground Helper [address] Railway Name Role Phone Jessie Bose APRN Primary Care Provider [phone] Encounter Details Date Type Department Care Team (Late st Contact Info) Description 12/02/2021 Orders Only Cardiology at [address] [phone] Rian Richards MD [facility] [place] [address] ASCVD (arteriosclerotic cardiovascular disease) (Primary Dx); Lightheadedness; Essential hypertension; Sinus bradycardia; Sinus node dysfunction; Coronary artery disease involving [place] coronary artery of [place] heart without angina pectoris; RJ (obstructive sleep apnea) Social History Tobacco [...] AM EDT Hospital Encounter Non-Invasive [place] [phone] Arrived documented as of this encounter Visit Diagnoses Diagnosis ASCVD (arteriosclerotic cardiovascular disease)- Primary Unspecified cardiovascular disease Lightheadedness Dizziness and giddiness Essential hypertension Unspecified essential hypertension Sinus bradycardia Other specified cardiac dysrhythmias Sinus node dysfunction Sinoatrial node dysfunction Coronary artery disease involving [place] coronary artery of [place] heart without angina pectoris RJ (obstructive sleep apnea) Obstructive sleep apnea (adult) (pediatric) documented in this encounter Care Teams Ground [address] Railway Relationship Specialty Start Date End Date Jessie Bose APRN [address] [place] [address] PCP - General Geriatric Medicine 05/14/20 documented as of this encounter
--- OUTSIDE RECORDS SUMMARY | 2024-01-24 15:53 | XMS_ITS | Encounter Summary ---
Author Organization [facility] [place] [address] Care Team Providers Care Dot Compliance Specialist Name Role Phone Jessie Bose MELISSA Primary Care Provider [phone] Encounter Details Date Type Department Care Team (Late st Contact Info) Description 10/21/2020 Telephone Cardiology at [address] [phone] Elly Sarabia RN Social History Tobacco Use [...] she is asking to review. Elly Holbrook RNbilling administrator Cardiovascular Clinic General Team-Tony documented in this encounter Plan of Treatment Upcoming Encounters Date Type Department Care Team (Late st Contact Info) Description 03/19/2024 10:00 AM EDT Hospital Encounter Non-Invasive [place] [address] Arrived documented as of this encounter Visit Diagnoses Not on filedocumented in this encounter Care Teams Dot Compliance Specialist Relationship Specialty Start Date End Date Jessie Bose APRN [address] [place] [address] PCP - General Geriatric Medicine 05/14/20 documented as of this encounter
--- OUTSIDE RECORDS SUMMARY | 2024-01-24 15:53 | XMS_ITS | Encounter Summary ---
Author Organization [facility] [place] [address] Care Team Providers Care Supervisor Instrument Repair Name Role Phone Jessie Bose MELISSA Primary Care Provider [phone] Encounter Details Date Type Department Care Team (Late st Contact Info) Description 11/20/2021 Telephone Cardiology at [address] [address] Elly Sarabia RN Social History Tobacco Use [...] team nurse about test results. Elly Holbrook RNsupervisor maintenance and custodians Cardiovascular Clinic General Team-[place] documented in this encounter Plan of Treatment Upcoming Encounters Date Type Department Care Team (Late st Contact Info) Description 03/19/2024 10:00 AM EDT Hospital Encounter Non-Invasive [place] [address] Arrived documented as of this encounter Visit Diagnoses Not on filedocumented in this encounter Care Teams Supervisor Instrument Repair Relationship Specialty Start Date End Date Jessie Bose APRN [address] [place] [address] PCP - General Geriatric Medicine 05/14/20 documented as of this encounter
--- OUTSIDE RECORDS SUMMARY | 2024-01-24 15:53 | XMS_ITS | Encounter Summary ---
Author Organization [facility] Address [facility] [place] [address] Care Team Providers Care Data Base Design Analyst Name Role Phone Jessie Bose RADIOGRAPHIC TECHNOLOGIST Primary Care Provider [phone] Encounter Details Date Type Department Care Team (Late st Contact Info) Description 05/14/2020 3:00 PM EST Office Visit Cardiology at [address] [address] Rian Richards MD [facility] [place] [address] Sinus node dysfunction; Essential hypertension Social History Tobacco Use Types [...] Progress Notes * Rian Richards MD - 05/14/2020 3:00 PM EST Images from the original note were not included. [facility] [place] [place] [address] Cardiology Clinic Note CC: CAD Patient Name: Corona Romo HPI: Corona Romo is a 75 y.o. 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 He has previously been followed by Dr. Marino and Dr. Acevedo. Heretoday for routine yearly follow up and to establish longitudinal care with a new heating fixture tender. States that he has no acute issues or concerns today. Reports that he is doing well from a CV perspective. States: I can do what I want when I want. Does not exercise per se but stays active aroundthe house. Walks his dogs every day (~1/4 mile). Shovels his driveway by hand in the snow; drivewayis 100 yards long. Denies any exertional symptoms. Uses an automatic BP cuff at home routinely; this AM was 150/80s. Lost 120 lbs in the past year. Wants to get down to 200 lbs. Recent Hgb A1c came down to < 7%. 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 [...] file Gets together: Not on file Attends evangelical service: Not on file Active member of [...] Pain; No palpitations Respiratory: No SOB; No OCOPER; No cough GI/Abdomen: No Diarrhea; No Constipation; [...] to establish longitudinal care with a new heating fixture tender. He has nonew CV complaints and reports that he is doing [...] MD, FACP, FACC Section of Cardiovascular Medicine [facility] [employer] Packerdna analyst [facility] documented in this encounter Plan of Treatment Upcoming Encounters Date Type Department Care Team (Late st Contact Info) Description 03/19/2024 10:00 AM EDT Hospital Encounter Non-[place] [address] Arrived documented as of this encounter Procedures Procedure Name Priority Date/Time Associated Diagnosis Comments EKG 12-LEAD Routine 05/14/2020 2:36 PM EST Sinus node dysfunction documented in this encounter Results * EKG 12 Lead (05/14/2020 2:36 PM EST) Ventricular rate 64 BPM MUSE SYSTEM Atrial Rate 64 BPM MUSE SYSTEM P-R Interval 166 ms MUSE SYSTEM QRS Duration 96 ms MUSE SYSTEM Q-T Interval 410 ms MUSE SYSTEM QTC Calculated (Bezet) 422 ms MUSE SYSTEM Calculated R [place] -7 degrees MUSE SYSTEM Calculated T [place] 53 degrees MUSE SYSTEM INTERPRETATION Normal sinus rhythm Normal ECG When compared with ECG of 02-DEC-2017 11:20, No significant change was found Confirmed by Matilda Damon ([id number]) on 05/14/2020 2:55:34 PM MUSE SYSTEM 05/14/2020 2:36 PM EST 05/14/2020 2:55 PM EST Mitzi Bo MD ECG ORDERABLES MUSE SYSTEM documented in this encounter Visit Diagnoses Diagnosis Sinus node dysfunction Sinoatrial node dysfunction Essential hypertension Unspecified essential hypertension documented in this encounter Care Teams Data Base Design Analyst Relationship Specialty Start Date End Date Jessie Bose APRN [address] [place] [address] PCP - General Geriatric Medicine 05/14/20 documented as of this encounter
--- OUTSIDE RECORDS SUMMARY | 2024-01-24 15:53 | XMS_ITS | Encounter Summary ---
Author Organization [facility] Address [facility] [place] [address] Care Team Providers Care Salvationist Name Role Phone Juice Jessie MELISSA Primary Care Provider [phone] Reason for Referral * Consultation (Routine) - Closed Specialty Diagnoses / Procedures Referred By Contact Referred To Contact Electrophysiology / Cardiology Diagnoses Sinus node dysfunction Lightheadedness; Evaluate pauses noted on Zio; ? Pacemaker necessity Rian Richards MD [facility] [address] [place] [address] [facility] [address] [place] [phone] Referral ID Status Reason Start Date Expiration Date V isits Requested Visits Authorized [id number] Closed Consult, Test & Treat 11/17/2021 11/17/2022 1 1 Encounter Details Date Type Department Care Team (Late st Contact Info) Description 11/17/2021 Orders Only Cardiology at [address] [phone] Rian Richards MD [facility] [address] [place] [address] Sinus node dysfunction (Primary Dx) Social History Tobacco Use Types [...] AM EDT Hospital Encounter Non-[place] [phone] Arrived Scheduled Referrals Name Type Priority Associated Diagnoses Order Schedule Referral to Cardiac Electrophysiology Outpatient Referral Routine Sinus node dysfunction Ordered: 11/17/2021 documented as of this encounter Visit Diagnoses Diagnosis Sinus node dysfunction- Primary Sinoatrial node dysfunction documented in this encounter Care Teams Salvationist Relationship Specialty Start Date End Date Jessie Bose APRN [address] [place] [address] PCP - General Geriatric Medicine 05/14/20 documented as of this encounter
--- OUTSIDE RECORDS SUMMARY | 2024-01-24 15:53 | XMS_ITS | Encounter Summary ---
Author Organization [facility] Address [facility] [place] [address] Care Team Providers Care Manager Engine Name Role Phone Satnam Barnes MD Primary Care Provider [phone] Reason for Visit * Reason Comments Follow-up Bilat TKA 09/2005 Encounter Details Date Type Department Care Team (Late st Contact Info) Description 11/02/2018 11:10 AM EDT Office Visit [place] [address] Clinic, Dr Del Rosario Team None Status post total right knee replacement; History of total left knee replacement Social History Tobacco Use Types Packs/Day Years [...] kg (227 lb) 11/02/2018 11:37 AM EDT w eighed Height 171 cm (5' 7.32) 11/02/2018 11:37 AM EDT measured Body Mass Index 35.21 11/02/2018 11:37 AM EDT documented in this encounter Progress Notes * Dior Echeverria, CELIA - 11/02/2018 11:10 AM EDT Arthroplasty/Orthopaedic History: [...] does have a walking stick which he occa sionally takes outdoors when walking on uneven ground. [...] subsidence, loosening, or periprosthetic complication. Questionnaire Responses: [facility] Surgical Postop Visit 11/02/2018 PROMIS-10 General Health [...] giving prompt attention to any source of infectionthroughout the body including foot ulcers and urinary tract infections. documented in this encounter Plan of Treatment Upcoming Encounters Date Type Department Care Team (Late st Contact Info) Description 03/19/2024 10:00 AM EDT Hospital Encounter Non-[place] [address] Arrived documented as of this encounter Visit Diagnoses Diagnosis Status post total right knee replacement History of total left knee replacement documented in this encounter Care Teams Manager Engine Relationship Specialty Start Date End Date Satnam Barnes MD PCP - General 02/07/15 07/11/19 documented as of this encounter
--- OUTSIDE RECORDS SUMMARY | 2024-01-24 15:53 | XMS_ITS | Encounter Summary ---
Author Organization [facility] [place] [address] Care Team Providers Care School Cafeteria Head Cook Name Role Phone JuiceJessie MELISSA Primary Care Provider [phone] Encounter Details Date Type Department Care Team (Late st Contact Info) Description 12/11/2020 Telephone Cardiology at [address] [phone] Elly Sarabia, RN Social History Tobacco Use [...] Telephone Encounter - Elly Sarabia RN - 12/11/2020 11:30 AM EDT Received call from patient ( in the background) and his life partner Nelia. She is reporting that since his last OV in November, Corona's BP is still running high. He checks usually once in the morning admittedly before his medications ( occasionally skips a day) and then he willrecheck later on in the day and log.Nelia confirms patient is taking Lasix again after he had previously stopped it. It was recommended he restart it at the last OV. Recent readings as follows with HR ranging mostly in the 60's: Today- 202/104 early this AM then on recheck during phone call 182/92 5/28- 170/99 12/04- 161/78 12/03- 181/94 12/02- 173/88 12/01- 165/82 11/29- 156/85, 137/68 pm 11/27- 168/87 11/26- 177/92, 166/89 pm 11/25- 185/86, 181/86 pm Nelia states patient does try to drink plenty of water and he also drinks mil. He gets dizzy at timesbut that comes and goes.Patient denies any CP,SOB, COTTON, lightheadedness, N/V, visual changes. Nelia states patient doesn't like his eye doctor so he needs to find a new one. He does try to be seen yearly for an exam. Overall, except for some arthritis like generalized discomfort patient is feeling well each morning. Patient labs were reportedly done at [facility] last month and they were told the results were normal. Nelia was asked to have patient check his BP one hour after his morning medications instead of before. All other medications being taken as reviewed. When to utilize ED was discussed. Nelia will have patient recheck his BP once again in an hour and call team nurse. Elly Holbrook RNbarrel reamer [facility]ovascular [facility] General Team-[place] documented in this encounter Plan of Treatment Upcoming Encounters Date Type Department Care Team (Late st Contact Info) Description 03/19/2024 10:00 AM EDT Hospital Encounter Non-Invasive [place] [address] Arrived documented as of this encounter Visit Diagnoses Not on filedocumented in this encounter Care Teams School Cafeteria Head Cook Relationship Specialty Start Date End Date Jessie Bose APRN [address] [place] [address] PCP - General Geriatric Medicine 05/14/20 documented as of this encounter
--- OUTSIDE RECORDS SUMMARY | 2024-01-24 15:53 | XMS_ITS | Encounter Summary ---
Author Organization [facility] Address [facility] [place] [address] Care Team Providers Care Physical Laboratory Assistant Name Role Phone JuiceJessie MELISSA Primary Care Provider [phone] Encounter Details Date Type Department Care Team (Latest Contact Info) Description 12/11/2021 1:00 PM EDT Office Visit Cardiology at [address] [address] Rian Richards MD [facility] [place] [address] ASCVD (arteriosclerotic cardiovascular disease); Essential hypertension; Sinus node dysfunction Social History Tobacco Use [...] * Patient Instructions* Rian Richards MD - 12/11/2021 1:37 PM EDT Stop carvedilol documented in this encounter Progress Notes * Rian Richards MD - 12/11/2021 1:00 PM EDT Images from the original note were not included. [facility] [place] [address] [place] [address] Cardiology Clinic Note CC: CAD Patient Name: [...] sit down. 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 [...] measurement. According to his cuff his systolic bloodpressure was 157 mmHg but on the manual reading in the same arm, the systolic reading was 122 mmHg.Thus, I do not think that his home cuff is reliable. The blood pressure obtained in the office today would suggest that his blood pressure is adequately managed currently. PLAN: # Hypertension, resistant - continue amlodipine 10 mg daily, losartan 100 mg daily, lasix 40 mg BID, and spironolactone 25 mgdaily - hold carvedilol 6.25 mg BID due [...] MD, FACP, FACC Section of Cardiovascular Medicine [facility] Orthotisttelephoner [facility] documented in this encounter Plan of Treatment Upcoming Encounters Date Type Department Care Team (Late st Contact Info) Description 03/19/2024 10:00 AM EDT Hospital Encounter Non-[place] [phone] Arrived documented as of this encounter Procedures Procedure Name Priority Date/Time Associated Diagnosis Comments EKG 12-LEAD Routine 12/11/2021 1:15 PM EDT ASCVD (arteriosclerotic cardiovascular disease) documented in this encounter Results * EKG 12 Lead (12/11/2021 1:15 PM EDT) Ventricular rate 35 BPM MUSE SYSTEM Atrial Rate 35 BPM MUSE SYSTEM P-R Interval 156 ms MUSE SYSTEM QRS Duration 104 ms MUSE SYSTEM Q-T Interval 480 ms MUSE SYSTEM QTC Calculated (Bezet) 366 ms MUSE SYSTEM Calculated P [place] 86 degrees MUSE SYSTEM Calculated R [place] -30 degrees MUSE SYSTEM Calculated T [place] 39 degrees MUSE SYSTEM INTERPRETATION Marked sinus bradycardia with Premature atrial complexes in a pattern of bigeminy Left axis deviation Incomplete right bundle branch block Abnormal ECG When compared with ECG of 22-NOV-2020 09:59, Premature atrial complexes are now Present Incomplete right bundle branch block is now Present Confirmed by MD Yoselin, Enoc ([id number]) on 12/12/2021 7:04:12 AM MUSE SYSTEM 12/11/2021 1:15 PM EDT 12/12/2021 7:04 AM EDT Rian Richards MD ECG ORDERABLES [place] [facility] documented in this encounter Visit Diagnoses Diagnosis ASCVD (arteriosclerotic cardiovascular disease) Unspecified cardiovascular disease Essential hypertension Unspecified essential hypertension Sinus node dysfunction Sinoatrial node dysfunction documented in this encounter Care Teams Physical Laboratory Assistant Relationship Specialty Start Date End Date Jessie Bose APRN [address] [place] [address] PCP - General Geriatric Medicine 05/14/20 documented as of this encounter
--- OUTSIDE RECORDS SUMMARY | 2024-01-24 15:53 | XMS_ITS | Encounter Summary ---
Author Organization [facility] Address [facility] [place] [address] Care Team Providers Care Drag Sawyer Name Role Phone Satnam Barnes MD Primary Care Provider [phone] Encounter Details Date Type Department Care Team (Late st Contact Info) Description 12/20/2017 [place] [phone] Alfreda Benitez MD [facility] [place] [address] Social History Tobacco Use Types Packs/Day Years [...] encounter Miscellaneous Notes * Telephone Encounter - Alfreda Benitez MD - 12/20/2017 3:06 PM EDT I attempted to contact Mr. Romo twice today (on his home and mobile number) to share with him the results of his recent stress testing (normal) but was unable to reach him. I left him a voice messageon his home phone indicating that I wished to speak with him about his testing results. His Ziopatch results are still pending. He has a follow up appointment with Dr. Acevedo on 12/27/17. documented in this encounter Plan of Treatment Upcoming Encounters Date Type Department Care Team (Late st Contact Info) Description 03/19/2024 10:00 AM EDT Hospital Encounter Non-[place] [address] Arrived documented as of this encounter Visit Diagnoses Not on filedocumented in this encounter Care Teams Drag Sawyer Relationship Specialty Start Date End Date Satnam Barnes MD PCP - General 02/07/15 07/11/19 documented as of this encounter
--- OUTSIDE RECORDS SUMMARY | 2024-01-24 15:53 | XMS_ITS | Encounter Summary ---
Author Organization [place] [address] Care Team Providers Care Hub Associate Name Role Phone Jessie Bose APRN Primary Care Provider [phone] Encounter Details Date Type Department Care Team (Late st Contact Info) Description 09/12/2020 External Results Cardiology at [address] [phone] Social History Tobacco Use Types Packs/Day Years [...] AM EDT Hospital Encounter Non-Invasive [place] [phone] Arrived documented as of this encounter Procedures Procedure Name Priority Date/Time Associated Diagnosis Comments EXTERNAL LAB RESULTS Routine 09/02/2020 documented in this encounter Results * External Lab Results (09/02/2020) Historical Provider CHEMISTRY ORDERAB LES documented in this encounter Visit Diagnoses Not on filedocumented in this encounter Care Teams Hub Associate Relationship Specialty Start Date End Date Jessie Bose APRN [address] [place] [address] PCP - General Geriatric Medicine 05/14/20 documented as of this encounter
--- OUTSIDE RECORDS SUMMARY | 2024-01-24 15:53 | XMS_ITS | Encounter Summary ---
Author Organization [facility] [place] [address] Care Team Providers Care Ux Design Manager Name Role Phone Jessie Bose APRN Primary Care Provider [phone] Encounter Details Date Type Department Care Team (Late st Contact Info) Description 11/20/2021 Telephone Cardiology at [address] [phone] Elly Sarabia RN Social History Tobacco Use [...] Encounter - Elly Sarabia RN - 11/20/2021 9:23 AM EDT Several calls placed to patient/Nelia x 3 days regarding message from Dr. Richards on Zio patch results. Phone numbers for patient and spouse Nelia go straight to voicemail and messages cannot be left. Alsoemergency contact has not called back either. Another number was found on a hand written letter scanned in (difficult to find)-[phone] and abrief message was left though it did not identify corporate communications manager. Awaiting call back from new number or will have to consider sending out a letter with detailed information. Elly Holbrook RNvallez filter operator Cardiovascular Clinic General Team-[place] documented in this encounter Plan of Treatment Upcoming Encounters Date Type Department Care Team (Late st Contact Info) Description 03/19/2024 10:00 AM EDT Hospital Encounter Non-Invasive [place] [address] Arrived documented as of this encounter Visit Diagnoses Not on filedocumented in this encounter Care Teams Ux Design Manager Relationship Specialty Start Date End Date Jessie Bose APRN [address] [place] [address] PCP - General Geriatric Medicine 05/14/20 documented as of this encounter
--- OUTSIDE RECORDS SUMMARY | 2024-01-24 15:53 | XMS_ITS | Encounter Summary ---
Author Organization [facility] Address [facility] [place] [address] Care Team Providers Care Esol Teacher Assistant Name Role Phone Satnam Barnes MD Primary Care Provider [phone] Reason for Visit * Reason Onset Date Comments Medication Refill 02/27/2019 Encounter Details Date Type Department Care Team (Late st Contact Info) Description 02/27/2019 Refill Cardiology at [address] [phone] Alton Acevedo MD [facility] [place] [address] Medication Refill Social History Tobacco Use Types [...] AM EDT Hospital Encounter Non-[place] [address] Arrived documented as of this encounter Visit Diagnoses Diagnosis Essential hypertension- Primary Unspecified essential hypertension documented in this encounter Care Teams Esol Teacher Assistant Relationship Specialty Start Date End Date Satnam Barnes MD PCP - General 7/30/15 12/31/19 documented as of this encounter
--- OUTSIDE RECORDS SUMMARY | 2024-01-24 15:53 | XMS_ITS | Encounter Summary ---
[place] [address] Care Team Providers Care Merchandise Support Associate Name Role Phone JuiceJessie MELISSA Primary Care Provider [phone] Encounter Details Date Type Department Care Team (Late st Contact Info) Description 12/10/2020 Telephone Cardiology at [address] [phone] Alin Kelley RN Social History Tobacco Use Types Packs/Day [...] encounter Miscellaneous Notes * Telephone Encounter - Alin Kelley RN - 12/10/2020 12:47 PM EDT Received VM prompt from Ms. Darling, calling on behalf of Mr. Romo. VM message indicates desire to share recent BP logs. Call returned (x2). Unsuccessful in personal connection. Direct contact number for Interventional RN provided. Awaiting successful connection. Rajan Kelley RNtool and die assembler Team Nurse [facility] Ambulatory Cardiology documented in this encounter Plan of Treatment Upcoming Encounters Date Type Department Care Team (Late st Contact Info) Description 03/19/2024 10:00 AM EDT Hospital Encounter Non-Invasive Cardiology [place] [address] Arrived documented as of this encounter Visit Diagnoses Not on filedocumented in this encounter Care Teams Merchandise Support Associate Relationship Specialty Start Date End Date Jessie Bose APRN [address] [place] [address] PCP - General Geriatric Medicine 05/14/20 documented as of this encounter
--- OUTSIDE RECORDS SUMMARY | 2024-01-24 15:53 | XMS_ITS | Encounter Summary ---
Author Organization [facility] [place] [address] Care Team Providers Care Fitter Hand Name Role Phone Satnam Barnes MD Primary Care Provider [phone] Encounter Details Date Type Department Care Team (Late st Contact Info) Description 03/16/2018 External Results Cardiology at [address] [phone] Social History Tobacco Use Types Packs/Day Years [...] AM EDT Hospital Encounter Non-[place] [phone] Arrived documented as of this encounter Procedures Procedure Name Priority Date/Time Associated Diagnosis Comments EXTERNAL LAB RESULTS Routine 01/25/2018 documented in this encounter Results * External Lab Results (01/25/2018) Historical Provider CHEMISTRY ORDERAB LES documented in this encounter Visit Diagnoses Not on filedocumented in this encounter Care Teams Fitter Hand Relationship Specialty Start Date End Date Satnam Barnes MD PCP - General 02/07/15 07/11/19 documented as of this encounter
--- OUTSIDE RECORDS SUMMARY | 2024-01-24 15:53 | XMS_ITS | Encounter Summary ---
Author Organization [facility] Address [facility] [place] [address] Care Team Providers Care C Software Engineer Name Role Phone Jessie Bose APRN Primary Care Provider [phone] Reason for Visit * Reason Onset Date Comments Medication Refill 01/20/2021 Encounter Details Date Type Department Care Team (Late st Contact Info) Description 01/20/2021 Refill Cardiology at [address] [phone] Rian Richards MD [facility] [place] [address] Medication Refill Social History Tobacco Use Types [...] AM EDT Hospital Encounter Non-Invasive [place] [phone] Arrived documented as of this encounter Visit Diagnoses Diagnosis Essential hypertension- Primary Unspecified essential hypertension documented in this encounter Care Teams C Software Engineer Relationship Specialty Start Date End Date Jessie Bose APRN [address] [place] [address] PCP - General Geriatric Medicine 05/14/20 documented as of this encounter
--- OUTSIDE RECORDS SUMMARY | 2024-01-24 15:53 | XMS_ITS | Encounter Summary ---
Author Organization [facility] Address [facility] [place] [address] Care Team Providers Care Cable Rigger Name Role Phone Satnam Barnes MD Primary Care Provider [phone] Reason for Visit * Reason Comments Medication Refill Encounter Details Date Type Department Care Team (Late Contact Info) Description 07/01/2019 Refill Cardiology at [address] [phone] Alton Acevedo MD [facility] [place] [address] Medication Refill Social History Tobacco Use Types [...] EDT Hospital Encounter Non-Invasive [place] [phone] Arrived documented as of this encounter Visit Diagnoses Diagnosis Essential hypertension- Primary Unspecified essential hypertension documented in this encounter Care Teams Cable Rigger Relationship Specialty Start Date End Date Satnam Barnes MD PCP - General 02/07/15 07/11/19 documented as of this encounter
--- OUTSIDE RECORDS SUMMARY | 2024-01-24 15:53 | XMS_ITS | Encounter Summary ---
Author Organization [facility] Address [facility] [place] [address] Care Team Providers Care Sales Research Analyst Name Role Phone Satnam Barnes MD Primary Care Provider [phone] Reason for Referral * Diagnostic Test (Routine) - Closed Specialty Diagnoses / Procedures Referred By Contac t Referred To Contact Radiology Diagnoses ASCVD (arteriosclerotic cardiovascular disease) Procedures NM Pharmacologic Stress CT Component Alfreda Benitez MD [facility] [place] [address] [place] [address] Referral ID Status Reason Start Date Expiration Date V isits Requested Visits Authorized [id number] Closed Specialty Service Requested 12/02/2017 12/02/2018 1 1 Reason for Visit * Diagnostic Test (Routine) - Closed Specialty Diagnoses / Procedures Referred By Contac t Referred To Contact Radiology Diagnoses ASCVD (arteriosclerotic cardiovascular disease) Procedures NM Pharmacologic Stress CT Component Alfreda Benitez MD [facility] [place] [address] [place] [address] Referral ID Status Reason Start Date Expiration Date V isits Requested Visits Authorized [id number] Closed Specialty Service Requested 12/02/2017 12/02/2018 1 1 Encounter Details Date Type Department Care Team (Latest Contact Info) Description 12/17/2017 9:46 AM EDT - 12/17/2017 11:59 PM EDT Hospital Encounter Nuclear Medicine at [facility] [place] [address] Alton Acevedo MD [facility] [place] [address] ASCVD (arteriosclerotic cardiovascular disease) Discharge Disposition: Home Social History Tobacco Use [...] AM EDT Hospital Encounter Non-[place] [address] Arrived documented as of this encounter Procedures Procedure Name Priority Date/Time Associated Diagnosis Comments NM PHARMACOLOGIC STRESS CT COMPONENT Routine 12/17/2017 12:27 PM EDT ASCVD (arteriosclerotic cardiovascular disease) documented [...] at 12/17/2017 5:18 PM Alton Acevedo MD [facility] [place] ORDERABLES documented in this encounter Visit Diagnoses Diagnosis ASCVD (arteriosclerotic cardiovascular disease) Unspecified cardiovascular disease documented in this encounter Care Teams Sales Research Analyst Relationship Specialty Start Date End Date Satnam Barnes MD PCP - General 02/07/15 07/11/19 documented as of this encounter
--- OUTSIDE RECORDS SUMMARY | 2024-01-24 15:53 | XMS_ITS | Encounter Summary ---
Author Organization [facility] Address [facility] [place] [address] Care Team Providers Care Fuel Cell Systems Engineer Name Role Phone Jessie Bose APRN Primary Care Provider [phone] Reason for Visit * Reason Onset Date Comments Medication Refill 09/19/2021 Encounter Details Date Type Department Care Team (Late st Contact Info) Description 09/19/2021 Refill Cardiology at [address] [phone] Rian Richards MD [facility] [place] [address] Medication Refill Social History Tobacco Use Types [...] AM EDT Hospital Encounter Non-Invasive [place] [phone] Arrived documented as of this encounter Visit Diagnoses Diagnosis Essential hypertension- Primary Unspecified essential hypertension documented in this encounter Care Teams Fuel Cell Systems Engineer Relationship Specialty Start Date End Date Jessie Bose APRN [address] [place] [address] PCP - General Geriatric Medicine 05/14/20 documented as of this encounter
--- OUTSIDE RECORDS SUMMARY | 2024-01-24 15:53 | XMS_ITS | Encounter Summary ---
Author Organization [facility] Address [facility] [place] [address] Care Team Providers Care Pay Station Collector Name Role Phone Satnam Barnes MD Primary Care Provider [phone] Encounter Details Date Type Department Care Team (Late st Contact Info) Description 12/27/2017 1:40 PM EDT Office Visit Cardiology at [address] [place] [phone] Alton Acevedo MD [facility] [place] [address] Essential hypertension; Coronary artery disease involving [place] coronary artery of [place] heart without angina pectoris; Lipid disorder; RJ (obstructive sleep apnea); Sinus node dysfunction Social History Tobacco Use [...] documented in this encounter Progress Notes * Alton Acevedo MD - 12/27/2017 1:40 PM EDT Images from the original note were not included. [facility] [place] [address] CARDIOLOGY OUTPATIENT NOTE PRIMARY CARE PROVIDER: Satnam [...] VITAMIN D3,) 2,000 unit Capsule Take 2,000 Unitsby mouth daily. ??? atorvastatin (LIPITOR) 80 mg [...] has a history of hypertension, hyperlipidemia, obesity, DM2on oral medications, RJ on CPAP and ASCVD [...] next few weeks and continuethe BP diary. ?? CAD (coronary artery disease) [...] LE edema. He takes 20 mg of Lasix twice daily; he used to take 80 mg Lasix twice daily. He eats quite a bit of salt. His weight isrelatively stable these days. ?? Review of Systems Constitutional: Negative. Respiratory: Positive for shortness of breath. Cardiovascular: Positive for leg swelling. Gastrointestinal: Negative. Endocrine: Negative. Genitourinary: Negative. Neurological: Negative. Hematological: Negative. Family history: Both parents . Mother with ASCVD/[place]. Brother with ASCVD/[place]. ?? Social history: Presents with his . They like to lutz together. They walk together in good weather. Acknowledge that they could work on diet. Never smoker. No alcohol or illicits. Lives in [facility]. Objective: Physical Exam Constitutional: He is oriented [...] appeared to be secondary to sinus exit block (the pause being a multiple of the preceding P-P intervals). Other pauses shown for review ended in an escape [...] found Confirmed by MD Richards Gregory A. ([id number]) on 12/02/2017 9:51:54 PM Assessment and Plan: Hypertension BP continues to be elevated and needs to be further addressed. For now, will increase amlodipine to10 mg daily. In addition, will increase Lasix [...] use it and f/u with sleep doctors. Sinus node dysfunction Sinus [...] see PCP in <1 mth for BP /lab check). Alton Acevedo MD documented in this encounter Miscellaneous Notes * Assessment & Plan Note - Alton Acevedo MD - 12/27/2017 2:12 PM EDT Associated Problem(s): Diabetes mellitus Monitored at home and with PCP. Continues with metformin. * Assessment & Plan Note - Alton Acevedo MD - 12/27/2017 2:05 PM EDT Associated Problem(s): Sinus node dysfunction Sinus bradycardia improved with holding of nebivolol (bblocker). No presyncope / syncope. Continue to monitor and remain off bblocker therapy. * Assessment & Plan Note - Alton Acevedo MD - 12/27/2017 2:05 PM EDT Associated Problem(s): RJ (obstructive sleep apnea) He has a diagnosis of RJ and has a sleep mask (but does not use it). I suggested that he use it and f/u with sleep doctors. * Assessment & Plan Note - Alton Acevedo MD - 12/27/2017 2:04 PM EDT Associated Problem(s): Lipid disorder Continue atorvastatin 80mg. * Assessment & Plan Note - Alton Acevedo MD - 12/27/2017 2:04 PM EDT Associated Problem(s): CAD (coronary artery disease) No chest pain. Recent stress test w/out ischemia or scar. Continue with medical therapies. * Assessment & Plan Note - Alton Acevedo MD - 12/27/2017 2:02 PM EDT Associated Problem(s): Hypertension BP continues to be elevated and needs to be further addressed. For now, will increase amlodipine to10 mg daily. In addition, will increase Lasix [...] AM EDT Hospital Encounter Non-[place] [address] Arrived documented as of this encounter Visit Diagnoses Diagnosis Essential hypertension Unspecified essential hypertension Coronary artery disease involving [place] coronary artery of [place] heart without angina pectoris Lipid disorder Unspecified disorder of lipoid metabolism RJ (obstructive sleep apnea) Obstructive sleep apnea (adult) (pediatric) Sinus node dysfunction Sinoatrial node dysfunction documented in this encounter Care Teams Pay Station Collector Relationship Specialty Start Date End Date Satnam Barnes MD PCP - General 02/07/15 07/11/19 documented as of this encounter
--- OUTSIDE RECORDS SUMMARY | 2024-01-24 15:53 | XMS_ITS | Encounter Summary ---
Author Organization [facility] Address [facility] [place] [address] Care Team Providers Care Regulatory Affairs Specialist Name Role Phone Satnam Barnes MD Primary Care Provider [phone] Reason for Visit * Diagnostic Test (Routine) - Closed Specialty Diagnoses / Procedures Referred By Talita swain Referred To Contact Radiology Diagnoses Coronary artery disease with exertional angina Procedures NM Myocardial Perfusion Rest NM Pharmacologic Stress Myocardial Perfusion Alfreda Benitez MD [facility] [place] [address] [place] [address] Referral ID Status Reason Start Date Expiration Date V isits Requested Visits Authorized [id number] Closed Specialty Service Requested 11/11/2017 11/11/2018 2 2 Encounter Details Date Type Department Care Team (Latest Contact Info) Description 11/16/2017 9:00 AM EDT - 11/16/2017 9:29 AM EDT Hospital Encounter [place] [address] Alton Acevedo MD [facility] [place] [address] Discharge Disposition: Home Social History [...] AM EDT Hospital Encounter Non-Invasive [place] [address] Arrived Pending Results Name Type Priority Associated Diagnoses Date /Time NM Myocardial Perfusion Rest Imaging Routine Coronary artery disease with exertional angina 11/16/2017 8:38 AM EDT documented as of this encounter Visit Diagnoses Not on filedocumented in this encounter Care Teams Regulatory Affairs Specialist Relationship Specialty Start Date End Date Satnam Barnes MD PCP - General 02/07/15 07/11/19 documented as of this encounter
--- OUTSIDE RECORDS SUMMARY | 2024-01-24 15:53 | XMS_ITS | Encounter Summary ---
Author Organization [facility] Address [facility] [place] [address] Care Team Providers Care Environmental Compliance Engineer Name Role Phone Satnam Barnes MD Primary Care Provider Encounter Details Date Type Department Care Team (Late st Contact Info) Description 09/20/2018 Orders [place] [phone] Chandra Del Rosario MD [facility] [place] [address] Status post total right knee replacement; History of total knee arthroplasty, left Social History Tobacco Use Types Packs/Day Years [...] AM EDT Hospital Encounter Non-[place] [address] Arrived documented as of this encounter Results * XR Knee 1-2 Views Bilat (Generic) (11/02/2018 9:05 AM EDT) Anatomical Region Laterality Modality Knee Bilateral Digital Radiogra phy Impressions 11/02/2018 11:04 AM EDT Uncomplicated bilateral total knee arthroplasties. Thank you for letting us participate in the care of this patient. For questions regarding this report, please contact the number below. ? Narrative 11/02/2018 11:04 AM [...] this report, please contact the number below. 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
--- OUTSIDE RECORDS SUMMARY | 2024-01-24 15:53 | XMS_ITS | Encounter Summary ---
Author Organization [facility] Address [facility] [place] [address] Care Team Providers Care Optical Store Manager Name Role Phone Satnam Barnes MD Primary Care Provider [phone] Reason for Referral * Diagnostic Test (Routine) - Closed Specialty Diagnoses / Procedures Referred By Contac t Referred To Contact Radiology Diagnoses ASCVD (arteriosclerotic cardiovascular disease) Procedures NM Pharmacologic Stress Myocardial Perfusion Alfreda Benitez MD [facility] [place] [address] [place] [address] Referral ID Status Reason Start Date Expiration Date V isits Requested Visits Authorized [id number] Closed Specialty Service Requested 12/02/2017 12/02/2018 1 1 Reason for Visit * Diagnostic Test (Routine) - Closed Specialty Diagnoses / Procedures Referred By Contac t Referred To Contact Radiology Diagnoses ASCVD (arteriosclerotic cardiovascular disease) Procedures NM Pharmacologic Stress Myocardial Perfusion Alfreda Benitez MD [facility] [place] [address] [place] [address] Referral ID Status Reason Start Date Expiration Date V isits Requested Visits Authorized [id number] Closed Specialty Service Requested 12/02/2017 12/02/2018 1 1 Encounter Details Date Type Department Care Team (Latest Contact Info) Description 12/17/2017 9:45 AM EDT Hospital Encounter Nuclear Medicine at [facility] [place] [address] Alton Acevedo MD [facility] [place] [address] ASCVD (arteriosclerotic cardiovascular disease) Discharge Disposition: Home [...] AM EDT Hospital Encounter Non-Invasive [place] [address] Arrived documented as of this encounter Procedures Procedure Name Priority Date/Time Associated Diagnosis Comments NM PHARMACOLOGIC STRESS AND REST MYOCARDIAL PERFUSION Routine 12/17/2017 11:42 AM EDT ASCVD (arteriosclerotic cardiovascular disease) documented in this encounter Results * NM Pharmacologic Stress Myocardial Perfusion (12/17/2017 [...] at 12/17/2017 5:18 PM Alton Acevedo MD [facility] [place] ORDER[place]LES documented in this encounter Visit Diagnoses Diagnosis ASCVD (arteriosclerotic cardiovascular disease) Unspecified cardiovascular disease documented in this encounter Administered Medications Inactive Administered Medications - up to 3 most recent administrations Medication Order MAR Action Action Date Dose Rate Site technetium (Tc-99m) sestamibi injection 8 mCi 8 mCi, Intravenous, ONCE PRN, 1 dose, Starting on Wed12/17/17 at 0955, Until Wed12/17/17 at 0955, Per Protocol, Routine Given 12/17/2017 9:55 AM EDT 8 mCi documented in this encounter Care Teams Optical Store Manager Relationship Specialty Start Date End Date Satnam Barnes MD PCP - General 02/07/15 07/11/19 documented as of this encounter
--- OUTSIDE RECORDS SUMMARY | 2024-01-24 15:53 | XMS_ITS | Encounter Summary ---
Author Organization [facility] Address [facility] [place] [address] Care Team Providers Care Raw Hide Trimmer Name Role Phone Jessie Bose APRN Primary Care Provider [phone] Encounter Details Date Type Department Care Team (Late st Contact Info) Description 11/08/2020 Orders Only Cardiology at [address] [phone] Lisbeth Chamberlain RN Coronary artery disease involving [place] coronary artery of [place] heart without angina pectoris Social History Tobacco Use Types Packs/Day [...] AM EDT Hospital Encounter Non-Invasive [place] [phone] Arrived documented as of this encounter Results * EKG 12 Lead (11/22/2020 9:59 AM EDT) Ventricular rate 45 BPM MUSE SYSTEM Atrial Rate 45 BPM MUSE SYSTEM P-R Interval 152 ms MUSE SYSTEM QRS Duration 98 ms MUSE SYSTEM Q-T Interval 462 ms MUSE SYSTEM QTC Calculated (Bezet) 399 ms MUSE SYSTEM Calculated P [place] 78 degrees MUSE SYSTEM Calculated R [place] -28 degrees MUSE SYSTEM Calculated T [place] 49 degrees MUSE SYSTEM INTERPRETATION Marked sinus bradycardia with marked sinus arrhythmia Abnormal ECG When compared with ECG of 14-MAY-2020 14:36, No significant change was found Confirmed by MD Wyatt Daniel ([id number]) on 11/22/2020 5:38:27 PM MUSE SYSTEM 11/22/2020 9:59 AM EDT 11/22/2020 5:38 PM EDT Rian Richards MD ECG ORDERABLES MUSE SYSTEM documented in this encounter Visit Diagnoses Diagnosis Coronary artery disease involving [place] coronary artery of [place] heart without angina pectoris documented in this encounter Care Teams Raw Hide Trimmer Relationship Specialty Start Date End Date Jessie Bose APRN [address] [place] [address] PCP - General Geriatric Medicine 05/14/20 documented as of this encounter
--- OUTSIDE RECORDS SUMMARY | 2024-01-24 15:53 | XMS_ITS | Encounter Summary ---
Author Organization [facility] Address [facility] [place] [address] Care Team Providers Care Brokerage Branch Manager Name Role Phone Unknown Primary Care Provider Unavailabl e Encounter Details Date Type Department Care Team (Late st Contact Info) Description 03/20/2020 Orders Only Cardiology at [address] [phone] Lisbeth Chamberlain RN Sinus node dysfunction Social History Tobacco Use [...] AM EDT Hospital Encounter Non-[place] [phone] Arrived documented as of this encounter Results * EKG 12 Lead (05/14/2020 2:36 PM EST) Ventricular rate 64 BPM MUSE SYSTEM Atrial Rate 64 BPM MUSE SYSTEM P-R Interval 166 ms MUSE SYSTEM QRS Duration 96 ms MUSE SYSTEM Q-T Interval 410 ms MUSE SYSTEM QTC Calculated (Bezet) 422 ms MUSE SYSTEM Calculated R [place] -7 degrees MUSE SYSTEM Calculated T [place] 53 degrees MUSE SYSTEM INTERPRETATION Normal sinus rhythm Normal ECG When compared with ECG of 02-DEC-2017 11:20, No significant change was found Confirmed by Matilda Damon ([id number]) on 05/14/2020 2:55:34 PM MUSE SYSTEM 05/14/2020 2:36 PM EST 05/14/2020 2:55 PM EST Mitzi Bo MD ECG ORDERABLES MUSE SYSTEM documented in this encounter Visit Diagnoses Diagnosis Sinus node dysfunction Sinoatrial node dysfunction documented in this encounter Care Teams Brokerage Branch Manager Relationship Specialty Start Date End Date Unknown None PCP - General 07/12/19 05/13/20 documented as of this encounter
--- OUTSIDE RECORDS SUMMARY | 2024-01-24 15:53 | XMS_ITS | Encounter Summary ---
Author Organization [facility], [facility] Address [facility] [place] [address] Care Team Providers Care Shallot Packer Name Role Phone Jessie Bose APRN Primary Care Provider [phone] Reason for Referral * Consultation (Routine) - Closed Specialty Diagnoses / Procedures Referred By Contac t Referred To Contact Sleep Center Diagnoses RJ (obstructive sleep apnea) Rian Richards MD [facility] [address] [place] [address] [facility] Sleep Medicine [address] [place] [address] Referral ID Status Reason Start Date Expiration Date V isits Requested Visits Authorized [id number] Closed Consult, Test & Treat 11/22/2020 11/22/2021 1 1 Encounter Details Date Type Department Care Team (Late st Contact Info) Description 11/22/2020 10:20 AM EDT Office Visit Cardiology at [address] [address] Rian Richards MD [facility] [address] [place] [address] Coronary artery disease involving sa[place] coronary artery of [place] heart without angina pectoris; RJ (obstructive sleep apnea); Essential hypertension Social History Tobacco Use Types [...] * Patient Instructions* Rian Richards MD - 11/22/2020 10:20 AM EDT Start spironolactone 12.5 mg daily Stop Potassium supplement Check a BMP in 1 week with PCP F/u with Sleep Medicine documented in this encounter Progress Notes * Rian Richards MD - 11/22/2020 10:20 AM EDT Images from the original note were not included. [facility] [place] [address] [address] Cardiology Clinic Note CC: CAD Patient Name: [...] exertional symptoms. 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 [...] Gatherings with Friends and Family: ??? Attends Caodaism Services: ??? Active Member of Clubs or [...] an issue at their pharmacy; will resume lasix and add cynthia 12.5 mg daily. Considered increasing Coreg but HR was in the 40s today. Will continue to follow closely; he will call office in 2 weeks with BP data. 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 documented in this encounter Plan of Treatment Upcoming Encounters Date Type Department Care Team (Late st Contact Info) Description 03/19/2024 10:00 AM EDT Hospital Encounter Non-[place] [phone] Arrived Scheduled Referrals Name Type Priority Associated Diagnoses Orde r Schedule Referral to Sleep Disorders Center Outpatient Referral Routine RJ (obstructive sleep apnea) Ordered: 11/22/2020 documented as of this encounter Procedures Procedure Name Priority Date/Time Associated Diagnosis Comments EKG 12-LEAD Routine 11/22/2020 9:59 AM EDT Coronary artery disease involving [place] coronary artery of [place] heart without angina pectoris documented in this encounter Results * EKG 12 Lead (11/22/2020 9:59 AM EDT) Ventricular rate 45 BPM MUSE SYSTEM Atrial Rate 45 BPM MUSE SYSTEM P-R Interval 152 ms MUSE SYSTEM QRS Duration 98 ms MUSE SYSTEM Q-T Interval 462 ms MUSE SYSTEM QTC Calculated (Bezet) 399 ms MUSE SYSTEM Calculated P [place] 78 degrees MUSE SYSTEM Calculated R [place] -28 degrees MUSE SYSTEM Calculated T [place] 49 degrees MUSE SYSTEM INTERPRETATION Marked sinus bradycardia with marked sinus arrhythmia Abnormal ECG When compared with ECG of 14-MAY-2020 14:36, No significant change was found Confirmed by MD Wyatt Daniel ([id number]) on 11/22/2020 5:38:27 PM MUSE SYSTEM 11/22/2020 9:59 AM EDT 11/22/2020 5:38 PM EDT Rian Richards MD ECG ORDERABLES MUSE SYSTEM documented in this encounter Visit Diagnoses Diagnosis Coronary artery disease involving [place] coronary artery of [place] heart without angina pectoris RJ (obstructive sleep apnea) Obstructive sleep apnea (adult) (pediatric) Essential hypertension Unspecified essential hypertension documented in this encounter Care Teams Shallot Packer Relationship Specialty Start Date End Date Jessie Bose APRN [address] [place] [address] PCP - General Geriatric Medicine 05/14/20 documented as of this encounter
--- OUTSIDE RECORDS SUMMARY | 2024-01-24 15:53 | XMS_ITS | Encounter Summary ---
Author Organization [facility], [facility] Address [facility] [place] [address] Care Team Providers Care Switchboard Clerk Name Role Phone Satnam Barnes MD Primary Care Provider [phone] Encounter Details Date Type Department Care Team (Late st Contact Info) Description 03/15/2018 2:00 PM EDT Office Visit Cardiology at [address] [place] [phone] Alton Acevedo MD [facility] [place] [address] Coronary artery disease involving [place] coronary artery of [place] heart without angina pectoris; Essential hypertension; Lipid disorder; RJ (obstructive sleep apnea); Sinus [...] kg (236 lb) 03/15/2018 2:06 PM EDT he lorne shoes Height 175.3 cm (5' 9) 03/15/2018 2:06 PM EDT Body Mass Index 34.85 03/15/2018 2:06 PM EDT documented in this encounter Progress Notes * Alton Acevedo MD - 03/15/2018 2:00 PM EDT Images from the original note were not included. [facility] [place] [address] [place] [address] CARDIOLOGY OUTPATIENT NOTE PRIMARY CARE PROVIDER: Satnam [...] Capsule Take 2,000 Unitsby mouth daily. ??? amLODIPine (NORVASC) 10 mg [...] ??He has a history of hypertension, hyperlipidemia, obesity,DM2 on oral medications, RJ on CPAP and [...] use it and f/u with sleep doctors. ?? Sinus node dysfunction Sinus bradycardia improved with holding of nebivolol (bblocker). No presyncope / syncope. Continue to monitor and remain off bblocker therapy. ?? Diabetes mellitus Monitored at home and with PCP. Continues with metformin. Since his last visit, Mr. Romo has been stable. He occasionally skips his medications due to being busy. No chest pain, pressure. He remains active, physically, including mowing, raking. BP has improved since altering his medical therapies. Dizziness upon standing up quickly; no other dizziness; no syncope. Review of Systems Constitutional: Negative. Respiratory: Negative. Cardiovascular: Negative. Gastrointestinal: Positive for diarrhea. Endocrine: Negative. Genitourinary: Positive for frequency. Neurological: Positive for dizziness. Hematological: Negative. Family history: ??Both parents . ??Mother with ASCVD/IN. ??Brother with ASCVD/IN. ? Social history: ??Presents with his . ??They like to lutz together. ??They walk together in good weather. Acknowledge that they could work on diet. Never smoker. ??No alcohol or illicits. Lives in [facility]. Objective: Physical Exam Constitutional: He is [...] rhythm. ??All 8 pauses occurred on the 1st [...] ?? EXAMINATION: [place] PHARMACOLOGIC STRESS MYOCARDIAL PERFUSION, [place] PHARMACOLOGIC STRESS CT COMPONENT December 2017 CLINICAL [...] No significant change was found Confirmed by Dadekian, MD, Rian Warner ([id number]) on 12/02/2017 9:51:54 PM Assessment and Plan: [...] Alton Acevedo MD - 03/15/2018 2:21 PM EDT Associated Problem(s): Sinus node dysfunction Sinus bradycardia improved with holding of bblocker. No presyncope / syncope. Continue to monitor and remain off bblocker therapy. * Assessment & Plan Note - Alton Acevedo MD - 03/15/2018 2:21 PM EDT Associated Problem(s): RJ (obstructive sleep apnea) He has a diagnosis of RJ and has a sleep mask (but does not use it). I suggested that he use it and f/u with sleep doctors. * Assessment & Plan Note - Alton Acevedo MD - 03/15/2018 2:20 PM EDT Associated Problem(s): Lipid disorder Continue atorvastatin 80mg. * Assessment & Plan Note - Alton Acevedo MD - 03/15/2018 2:20 PM EDT Associated Problem(s): Hypertension BP improved on medical therapies. I stressed again a low salt diet and frequent BP monitoring. He/ understand. He is due to see his PCP shortly. * Assessment & Plan Note - Alton Acevedo MD - 03/15/2018 2:19 PM EDT Associated Problem(s): Diabetes mellitus Monitored at home and with PCP. Continues with metformin. * Assessment & Plan Note - Alton Acevedo MD - 03/15/2018 2:18 PM EDT Associated Problem(s): CAD (coronary artery disease) No chest pain. Recent stress test w/out ischemia or scar. Continue with medical therapies. He can switch from 325 mg to to low dose aspirin. documented in this encounter Plan of Treatment Upcoming Encounters Date Type Department Care Team (Late st Contact Info) Description 03/19/2024 10:00 AM EDT Hospital Encounter Non-Invasive [place] [address] Arrived documented as of this encounter Visit Diagnoses Diagnosis Coronary artery disease involving [place]'alene coronary artery of [place] heart without angina pectoris Essential hypertension Unspecified essential hypertension Lipid disorder Unspecified disorder of lipoid metabolism RJ (obstructive sleep apnea) Obstructive sleep apnea (adult) (pediatric) Sinus node dysfunction Sinoatrial node dysfunction documented in this encounter Care Teams Switchboard Clerk Relationship Specialty Start Date End Date Satnam Barnes MD PCP - General 02/07/15 07/11/19 documented as of this encounter
--- OUTSIDE RECORDS SUMMARY | 2024-01-24 15:53 | XMS_ITS | Encounter Summary ---
Author Organization [facility] Address [facility] [place] [address] Care Team Providers Care Flatwork Assembler Name Role Phone Jessie Bose APRN Primary Care Provider [phone] Encounter Details Date Type Department Care Team (Late st Contact Info) Description 12/11/2020 Orders Only Cardiology at [address] [phone] Rian Richards MD [facility] [place] [address] Essential hypertension (Primary Dx) Social History Tobacco Use Types [...] AM EDT Hospital Encounter Non-Invasive [place] [phone] Arrived documented as of this encounter Visit Diagnoses Diagnosis Essential hypertension- Primary Unspecified essential hypertension documented in this encounter Care Teams Flatwork Assembler Relationship Specialty Start Date End Date Jessie Bose APRN [address] [place] [address] PCP - General Geriatric Medicine 05/14/20 documented as of this encounter
--- OUTSIDE RECORDS SUMMARY | 2024-01-24 15:53 | XMS_ITS | Encounter Summary ---
Author Organization [facility] Address [facility] [address] Care Team Providers Care Hardware Installation Coordinator Name Role Phone Satnam Barnes MD Primary Care Provider [phone] Encounter Details Date Type Department Care Team (Latest Contact Info) Description 12/17/2017 9:45 AM EDT Hospital Encounter Non-Invasive Cardiology Lab [facility] [place] [phone] Alton Acevedo MD [facility] [place] [address] ASCVD (arteriosclerotic cardiovascular disease) Discharge Disposition: Home [...] AM EDT Hospital Encounter Non-Invasive [place] [address] Arrived documented as of this encounter Procedures Procedure Name Priority Date/Time Associated Diagnosis Comments NUCLEAR PHARMACOLOGIC STRESS CARDIOLOGY Routine 12/17/2017 11:48 AM EDT ASCVD (arteriosclerotic cardiovascular disease) documented in this encounter Results * Nuclear Pharmacologic Stress Cardiology (12/17/2017 11:48 AM EDT) Anatomical Region Laterality Modality Other Alton Acevedo MD CARDIAC SERVICES ORD ERABLES documented in this encounter Visit Diagnoses Diagnosis ASCVD (arteriosclerotic cardiovascular disease) Unspecified cardiovascular disease documented in this encounter Care Teams Hardware Installation Coordinator Relationship Specialty Start Date End Date Satnam Barnes MD PCP - General 02/07/15 07/11/19 documented as of this encounter
--- OUTSIDE RECORDS SUMMARY | 2024-01-24 15:53 | XMS_ITS | Encounter Summary ---
Author Organization [facility] [place] [address] Care Team Providers Care Cardiothoracic Physiotherapist Name Role Phone SukhdevJessie Kelly MELISSA Primary Care Provider [phone] Encounter Details Date Type Department Care Team (Late st Contact Info) Description 12/11/2020 Telephone Cardiology at [address] [phone] Elly Sarabia RN Social History Tobacco Use [...] Encounter - Elly Sarabia RN - 12/11/2020 3:34 PM EDT Patient [...] answered at this time and Nelia and patientagree with plan. Elly Holbrook RNhard rock miner blasting [facility] documented in this encounter Plan of Treatment Upcoming Encounters Date Type Department Care Team (Late st Contact Info) Description 03/19/2024 10:00 AM EDT Hospital Encounter Non-Invasive [place] [address] Arrived documented as of this encounter Visit Diagnoses Not on filedocumented in this encounter Care Teams Cardiothoracic Physiotherapist Relationship Specialty Start Date End Date Jessie Bose APRN [address] [facility] [address] PCP - General Geriatric Medicine 05/14/20 documented as of this encounter
--- OUTSIDE RECORDS SUMMARY | 2024-01-24 15:54 | XMS_ITS | Encounter Summary ---
Author Organization Counts Include [facility] [address] Care Team Providers Care Global Expansion Sales Director Name Role Phone BennieCandace Guanaco TORRES Primary Care Provider [phone] Encounter Details Date Type Department Care Team (Late st Contact Info) Description 12/21/2013 Anti-Coag Telephone [place] [address] Paulina Rajput, RN Social History Tobacco Use Types Packs/Day Years Used Date Smoking Tobacco: Never Smokeless Tobacco: Never Alcohol Use Standard Drinks/Week Comments No 0 (1 standard drink = 0.6 oz pur e alcohol) Sex and Gender Information Value Date Recorded Sex Assigned at Not on file Gender Identity Not on file Sexual Orientation Not on file documented as of this encounter Progress Notes * Paulina Rajput, RN - 12/21/2013 2:24 PM EDT Anticoagulation Therapy Nurse Visit Corona Romo 1945 Dr[address] Del Rosario Indication: DVT Prophylaxis S/P Joint Replacement Duration of Treatment: 28 days ends: January 08, 2014 Therapeutic Range: 2.0-3.0 INR: 2.1 Drawn by: [facility] Patient presents with no signs of bleeding or bruising or signs of thromboembolic events related toprimary diagnosis above. Follow-up for re- evaluation and [...] AM EDT Hospital Encounter Non-Invasive [place] [address] Arrived documented as of this encounter Procedures Procedure Name Priority Date/Time Associated Diagnosis Comments EXTERNAL LAB RESULTS Routine 12/21/2013 documented in this encounter Results * (ABNORMAL) External Lab Results (12/21/2013) POC INR 2.1(Externa l Lab) 0.9 - 1.1 12/21/2013 Historical Provider CHEMISTRY ORDERAB LES documented in this encounter Visit Diagnoses Not on filedocumented in this encounter Care Teams Global Expansion Sales Director Relationship Specialty Start Date End Date Candace Avery APRN [facility] [address] [place] [address] PCP - General 04/03/11 01/17/15 documented as of this encounter
--- OUTSIDE RECORDS SUMMARY | 2024-01-24 15:54 | XMS_ITS | Encounter Summary ---
Author Organization [facility] Address [facility] [place] [address] Care Team Providers Care Paint Brush Maker Name Role Phone Satnam Barnes MD Primary Care Provider [phone] Reason for Visit * Reason Comments Aftercare Of Tjr R TKA DOS 12/11/13 Encounter Details Date Type Department Care Team (Late st Contact Info) Description 11/18/2015 11:00 AM EDT Office [place] [address] Sun Robledo SECRET SERVICE AGENT [facility] [place] [address] Status post total right knee replacement; History [...] documented in this encounter Progress Notes * Sun Chang, SECRET SERVICE AGENT - 11/18/2015 11:17 AM EDT Patient Name: Corona Romo : 1945 MR#: [id number] Case Date: 09-10-05 Surgeon: Sadie Del Rosario Procedure: Left total knee replacement Case Date: 12-11-2013 Surgeon: Sadie Del Rosario Procedure: right total knee replacement CC: 10 year f/u Left TKA, 2 year f/u Right TKA. HPI: Corona Romo is a very pleasant 70 y.o. year-old male who presents for a 2 year follow-up of a right TKA and 10 year follow up of his left TKA. The patient has been doing very well and his painis markedly improved over preoperative status. No fevers, chills, nausea, vomiting, or symptoms of infection. He also denies increased pain, swelling, or symptoms of loosening about his knees. Delmy been ambulating with no assistive device. Patient is very happy with outcome of the surgery andis able to play with his grandson and [...] tablet, Take 20 mEq by mouth 2 times daily., Disp: , Rfl: ??? metFORMIN (GLUCOPHAGE) 500 mg tablet, Take 1,000 mg by mouth 2 times daily (with meals)., Disp:, Rfl: ??? buPROPion (BUDEPRION SR) 150 mg [...] BID, Disp: , Rfl: No Known Allergies [facility] FollowUp 11/18/2015 Health in general Good Quality [...] post-op left TKA and doing well. The patientwill continue weightbearing as tolerated and working on [...] surgery and then call the office for aprescription prior to any further dental work for the lifetime of the joint replacement. We also discussed maintaining good foot care and giving prompt attention to any source of infection throughoutthe body including foot ulcers and urinary tract infections. 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
--- OUTSIDE RECORDS SUMMARY | 2024-01-24 15:54 | XMS_ITS | Encounter Summary ---
Author Organization [facility] Address [facility] [place] [address] Care Team Providers Care Superintendent Drilling Name Role Phone BennieFavianchaitanya Blanc APRN Primary Care Provider [phone] Reason for Visit * Reason Onset Date Comments Medication Reaction 01/01/2014 Encounter Details Date Type Department Care Team (Late st Contact Info) Description 01/01/2014 Telephone [place] [phone] Chandra Del Rosario MD [facility] DR [place] [address] Medication Reaction Social History Tobacco Use Types Packs/Day Years [...] encounter Miscellaneous Notes * Telephone Encounter - Paulina Rajput RN - [...] discuss using acetaminophen up to 3000 mg dailyand help him to see where he might add up to two doses of tylenol. Offer anti-nausea medication butMr. Romo does not want to add a medication at this time. He is using ice and it is providing good relief. Request refill of vicodin to Andrew Rajput. Refill phoned in per request. * Telephone Encounter - Aissatou Vazquez - 01/01/2014 12:57 PM EDT Corona called and would like to prescribed a different pain medication. Corona is currently prescribed Vicodin and experiencing nausea when taking it. Corona was also prescribed oxycodone prior to the Vicodin and was experiencing nausea as well. Corona states there is no redness around his incisionsite., s/p 12/11/13 Right TKA. Best number to reach Corona is [phone] documented in this encounter Plan of Treatment Upcoming Encounters Date Type Department Care Team (Late st Contact Info) Description 03/19/2024 10:00 AM EDT Hospital Encounter [place] [phone] Arrived documented as of this encounter Visit Diagnoses Diagnosis Knee joint replacement by other means- Primary documented in this encounter Care Teams Superintendent Drilling Relationship Specialty Start Date End Date Candace Avery APRN [facility] [address] [place] [address] PCP - General 04/03/11 01/17/15 documented as of this encounter
--- OUTSIDE RECORDS SUMMARY | 2024-01-24 15:54 | XMS_ITS | Encounter Summary ---
Author Organization [facility] Address [facility] [place] [address] Care Team Providers Care Mac Developer Name Role Phone Satnam Barnes MD Primary Care Provider [phone] Encounter Details Date Type Department Care Team (Late st Contact Info) Description 02/08/2015 Orders [place] [phone] Chandra Del Rosario MD [facility] DR [place] [address] Status post total right knee replacement Social History Tobacco Use Types [...] AM EDT Hospital Encounter Non-[place] [phone] Arrived documented as of this encounter Visit Diagnoses Diagnosis Status post total right knee replacement documented in this encounter Care Teams Mac Developer Relationship Specialty Start Date End Date Satnam Barnes MD PCP - General 02/07/15 07/11/19 documented as of this encounter
--- OUTSIDE RECORDS SUMMARY | 2024-01-24 15:54 | XMS_ITS | Encounter Summary ---
Author Organization [facility] Address [facility] [place] [address] Care Team Providers Care Assistant Clinical Director Name Role Phone Satnam Barnes MD Primary Care Provider [phone] Encounter Details Date Type Department Care Team (Latest Contact Info) Description 10/07/2016 11:25 AM EDT - 10/07/2016 11:59 PM EDT Hospital Encounter XRay at [address] [place] [address] Chandra Del Rosario MD [facility] ORTHOPAEDIC [place] [address] History of total knee arthroplasty, left Discharge [...] Aerosol Inhaler Inhale into the lungs. 01/09/2013 atorvastatin (LIPITOR) 80 mg Tablet Take 1 [...] AM EDT Hospital Encounter [place] [address] Arrived documented as of this encounter Procedures Procedure Name Priority Date/Time Associated Diagnosis Comments XR KNEE AP & LAT LEFT Routine 10/07/2016 11:40 AM EDT History of total knee arthroplasty, left documented in this encounter Results * XR Knee 1-2 Views Left (Generic) (10/07/2016 11:40 AM EDT) Anatomical Region Laterality Modality Knee Left Digital Radiogra phy Impressions 10/07/2016 11:47 AM EDT No complication or change involving the prosthesis. Narrative 10/07/2016 11:47 AM EDT EXAMINATION: XR KNEE 1-2 VIEWS LEFT (GENERIC) CLINICAL HISTORY: total knee arthroplasties with no hardware complications. TECHNIQUE: AP and lateral of left knee COMPARISON: November 18, 2015 FINDINGS: A total left knee prosthesis is present. The prosthesis is well-positioned without periprosthetic lucency or fracture. There is no change in its appearance since the prior examination. A bony exostosis in the femur projecting just above the prosthetic component anteriorly is unchanged. Procedure Note Nikunj Kidd MD - 10/07/2016 EXAMINATION: XR KNEE 1-2 VIEWS LEFT (GENERIC) CLINICAL HISTORY: total knee arthroplasties with no hardwarecomplications. TECHNIQUE: AP and lateral of left knee COMPARISON: November 18, 2015 FINDINGS: A total left knee prosthesis is present. The prosthesis iswell-positioned without periprosthetic lucency or fracture. There is no change in itsappearance since the prior examination. A bony exostosis in the femur projecting justabove the prosthetic component anteriorly is unchanged. IMPRESSION No complication or change involving the prosthesis. Chandra Del Rosario MD IMG DX ORDERABLES documented in this encounter Visit Diagnoses Diagnosis History of total knee arthroplasty, left documented in this encounter Care Teams Assistant Clinical Director Relationship Specialty Start Date End Date Satnam Barnes MD PCP - General 02/07/15 07/11/19 documented as of this encounter
--- OUTSIDE RECORDS SUMMARY | 2024-01-24 15:54 | XMS_ITS | Encounter Summary ---
Author Organization [facility] Address [facility] [place] [address] Care Team Providers Care Paper Cleaner Name Role Phone Satnam Barnes MD Primary Care Provider [phone] Reason for Visit * Reason Comments Coronary Artery Disease Encounter Details Date Type Department Care Team (Late st Contact Info) Description 09/08/2016 11:00 AM EST Office Visit Cardiology at [address] [id number] Hima Marino MD [facility] [place] [address] Coronary artery disease, angina presence unspecified, unspecified vessel or lesion type, unspecified whether [place] or transplanted heart; Myocardial infarction, old; Lipid disorder; Essential hypertension Social History Tobacco Use Types [...] this encounter Patient Instructions * Patient Instructions* Hima Marino MD - 09/08/2016 11:00 AM EST 1. Stop amlodipine effective immediately. 2. Take the nebivolol at night instead of each morning. 3. Check on the dose of the doxazocin as this should be at night. documented in this encounter Progress Notes * Hima Marino MD - 09/08/2016 11:00 AM EST Cardiology Clinic Note History: Corona Romo is a 71 y.o. male presenting for routine office follow up of cardiovascular problems. The patient is here with his and she relates concerns that in the past year the patienthas been experiencing episodes of sudden low blood [...] The issue of his antibiotic prophylaxis for recurrentcellulitis is still being discussed. Allergies as of [...] talked with the patient about his remote [place] and the stable CAD by symptoms. I reviewed the issue of his BP control and the potential for the collective effect of the meds to hit him by late morningor mid day when he seems to experience [...] AM EDT Hospital Encounter [place] [address] Arrived documented as of this encounter Procedures Procedure Name Priority Date/Time Associated Diagnosis Comments EKG 12-LEAD Routine 09/08/2016 10:49 AM EST Coronary artery disease, angina presence unspecified, unspecified vessel or lesion type, unspecified whether [place] or transplanted heart Myocardial infarction, old Lipid disorder Essential hypertension documented in this encounter Results * EKG 12 Lead (09/08/2016 10:49 AM EST) Ventricular rate 57 BPM MUSE SYSTEM Atrial Rate 57 BPM MUSE SYSTEM P-R Interval 142 ms MUSE SYSTEM QRS Duration 98 ms MUSE SYSTEM Q-T Interval 430 ms MUSE SYSTEM QTC Calculated (Bezet) 418 ms MUSE SYSTEM Calculated P [place] -14 degrees MUSE SYSTEM Calculated R [place] -19 degrees MUSE SYSTEM Calculated T [place] 50 degrees MUSE SYSTEM INTERPRETATION Sinus bradycardia Otherwise normal ECG When compared with ECG of 02-OCT-2013 14:52, No significant change was found Confirmed by MD Tessa, Alejandra ([id number]) on 09/08/2016 1:11:42 PM MUSE SYSTEM 09/08/2016 10:4 9 AM EST 09/08/2016 1:11 PM EST Hima Marino MD ECG ORDERABLES MUSE SYSTEM documented in this encounter Visit Diagnoses Diagnosis Coronary artery disease, angina presence unspecified, unspecified vessel or lesion type, unspecified whether [place] or transplanted heart Myocardial infarction, old Old myocardial infarction Lipid disorder Unspecified disorder of lipoid metabolism Essential hypertension Unspecified essential hypertension documented in this encounter Care Teams Paper Cleaner Relationship Specialty Start Date End Date Satnam Barnes MD PCP - General 02/07/15 07/11/19 documented as of this encounter
--- OUTSIDE RECORDS SUMMARY | 2024-01-24 15:54 | XMS_ITS | Encounter Summary ---
Author Organization [facility] Address [facility] [place] [address] Care Team Providers Care Physician Intensivist Name Role Phone Satnam Barnes MD Primary Care Provider Encounter Details Date Type Department Care Team (Latest Contact Info) Description 11/18/2015 9:56 AM EDT - 11/18/2015 11:59 PM EDT Hospital Encounter XRay at [address] [place] [address] Chandra Del Rosario MD [facility] ORTHOPAEDIC [place] [address] Status post total right knee replacement; History [...] EDT Hospital Encounter Non-Invasive [place] [address] Arrived documented as of this encounter Procedures Procedure Name Priority Date/Time Associated Diagnosis Comments XR KNEE AP AND LAT BILAT Routine 11/18/2015 10:35 AM EDT 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 Left total knee arthroplasty is unchanged in position with no evidence of malalignment, periprostatic lucency or fracture. Unchanged broad-based excrescence just anterior and superior to the femoral prosthesis. Right total knee arthroplasty is unchanged in position with no evidence of malalignment or periprosthetic fracture. There is mild increased lucency along the lateral tibial plateau which is stable when compared to most recent prior 02/07/2015 however new when compared to 01/25/2014. Likely represents evolved postsurgical change. Stable focus of heterotopic ossification at the superior posterior aspect of the right patella. Procedure Note Stephanie Min MD - 11/18/2015 EXAMINATION: XR KNEES 1 OR 2 VIEWS BILATERAL CLINICAL HISTORY: bilateral tka TECHNIQUE: AP standing and lateral views of bilateral knees COMPARISON: Radiograph of the knees 02/07/2015, 01/25/2014 and 08/04/2012 FINDINGS: Patient status post bilateral total knee arthroplasties. Left total knee arthroplasty is unchanged in position with no evidence of malalignment, periprostatic lucency or fracture. Unchanged broad-based excrescencejust anterior and superior to the femoral prosthesis. Right total knee arthroplasty is unchanged in position with no evidenceof malalignment or periprosthetic fracture. There is mild increased lucencyalong the lateral tibial plateau which is stable when compared to most recentprior 02/07/2015 however new when compared to 01/25/2014. Likely representsevolved postsurgical change. Stable focus of heterotopic ossification at thesuperior posterior aspect of the right patella. IMPRESSION IMPRESSION: Bilateral total knee arthroplasties with no hardware complications. I have personally reviewed the image(s) and the residents interpretationand agree with the findings, Stephanie Min at 11/18/2015 4:31 PM Chandra Del Rosario MD IMG DX ORDERABLES documented in this encounter Visit Diagnoses Diagnosis Status post total right knee replacement History of total knee arthroplasty, left documented in this encounter Care Teams Physician Intensivist Relationship Specialty Start Date End Date Satnam Barnes MD PCP - General 02/07/15 07/11/19 documented as of this encounter
--- OUTSIDE RECORDS SUMMARY | 2024-01-24 15:54 | XMS_ITS | Encounter Summary ---
Author Organization [facility] Address [facility] [place] [address] Care Team Providers Care Health Plan Advisor Name Role Phone Satnam Barnes MD Primary Care Provider [phone] Encounter Details Date Type Department Care Team (Late st Contact Info) Description 09/22/2016 Telephone [place] [address] Shady Watson, RN Social History Tobacco Use Types Packs/Day [...] encounter Miscellaneous Notes * Telephone Encounter - Katia Argueta - 09/22/2016 12:43 PM EDT Patient scheduled * Telephone Encounter - Shady Watson RN - 09/22/2016 11:09 AM EDT Name:Corona Romo Contacted via:Learning Needs Assessment done within 12 months (no change identified): No Patient question: Recent fall resulting in ED visit Orthopaedic history: has a past surgical history that includes Total Knee Arthroplasty (31827) (12/11/2013). Last appointment: 11/18/15 Future appointment: Visit [...] AM EDT Hospital Encounter Non[place] [address] Arrived documented as of this encounter Results [...] left documented in this encounter Care Teams Health Plan Advisor Relationship Specialty Start Date End Date Satnam Barnes MD PCP - General 02/07/15 07/11/19 documented as of this encounter
--- OUTSIDE RECORDS SUMMARY | 2024-01-24 15:54 | XMS_ITS | Encounter Summary ---
Author Organization [facility] Address [facility] [place] [address] Care Team Providers Care Forge Heater Name Role Phone Candace Avery APRN Primary Care Provider [phone] Encounter Details Date Type Department Care Team (Latest Contact Info) Description 01/25/2014 9:37 AM EDT - 01/25/2014 11:59 PM EDT Hospital Encounter XRay at [address] [place] [address] Status post right knee replacement Social History Tobacco Use [...] Aerosol Inhaler Inhale into the lungs. 01/09/2013 buPROPion SR (Wellbutrin SR) 150 mg tablet sustained-release 12 hr Take 150 mg by mouth 2 times daily. albuterol (PROVENTIL HFA;VENTOLIN HFA) 90 mcg/Actuation inhaler Inhale 2 puffs into the lungs every 4 hours as needed. Use with spacer aspirin 325 mg tablet Take 325 mg by mouth daily. 03/15/2018 acetaminophen (TYLENOL) 500 mg tablet Take 2 tablets by mouth every 8 hours. Take around the clock for the first 10 days (December 21) and then as needed to help control pain. DO NOT EXCEED 3000 MG IN A 24 HOUR PERIOD. 12/14/2013 03/22/2014 ferrous sulfate 325 mg (65 mg iron) EC tablet Take 325 mg by mouth 2 times daily. 02/07/2015 losartan (COZAAR) 100 mg Tablet Take 100 mg by mouth daily. 03/24/2023 furosemide (LASIX) 80 mg tablet Take 80 mg by mouth 2 times daily. 02/07/2015 potassium chloride (K-DUR/KLOR-CON) 20 mEq extended release tablet Take 20 mEq by mouth 2 times daily. 11/22/2020 atorvastatin (LIPITOR) 40 mg tablet Take 80 mg by mouth daily. 11/18/2015 metFORMIN (GLUCOPHAGE) 500 mg tablet Take 1,000 mg by mouth 2 times daily (with meals). 03/24/2023 penicillin v potassium (VEETID) 500 mg tablet 500mg, PO, BID 08/06/2010 documented as of this encounter Plan of Treatment Upcoming Encounters Date Type Department Care Team (Late st Contact Info) Description 03/19/2024 10:00 AM EDT Hospital Encounter Non-[place] [address] Arrived documented as of this encounter Procedures Procedure Name Priority Date/Time Associated Diagnosis Comments XR TKA FIRST PO VISIT ALIGNMENT AP LAT SKYLINE Routine 01/25/2014 10:00 AM EDT Status post right knee replacement documented in this encounter Results * XR TKA first PO visit alignment AP LAT [place] (01/25/2014 10:00 AM EDT) Anatomical Region Laterality Modality Knee N/A Radiographic Amparo ging 01/25/2014 10:0 0 AM EDT Narrative 01/25/2014 10:10 AM EDT Examination TKA FIRST PO VISIT STANDING ALIGNMENT AP LAT SKYLINE/RIGHT Clinical History s/p right tka first post op Comparison None Technique Separate images of the pelvis, knees and feet were acquired in the AP projection with the patient standing. In addition to routine views of the knee, these images were stitched together to form a composite image of the pelvis and legs allowing for evaluation of lower extremity alignment in the weight bearing position. Additionally standing AP, sunrise and lateral views of the right knee were obtained. Findings The patient is status post bilateral total knee arthroplasty. There is approximately 2.5 cm of medial deviation of the weight-bearing axis on the right and virtually no deviation on the left. No leg length discrepancy. ?? Since a prior study of 11/30/2013, the patient has undergone the right total knee arthroplasty having undergone the left TKA previously. No periprosthetic fracture or osteolysis is seen. No radiographic evidence of complication is appreciated. ?? Impression Status post interval right TKA without radiographic evidence of complication. Procedure Note Luis Daniel Delarosa MD - 01/25/2014 Examination TKA FIRST PO VISIT STANDING ALIGNMENT AP LAT SKYLINE/RIGHT Clinical History s/p right tka first post op Comparison None Technique Separate images of the pelvis, knees and feet were acquired in the AP projection with the patient standing. In addition to routine views of theknee, these images were stitched together to form a composite image of thepelvis and legs allowing for evaluation of lower extremity alignment in the weightbearing position. Additionally standing AP, sunrise and lateral views of the right knee were obtained. Findings The patient is status post bilateral total knee arthroplasty. There is approximately 2.5 cm of medial deviation of the weight-bearing axis on the right and virtually no deviation on the left. No leg length discrepancy. Since a prior study of 11/30/2013, the patient has undergone the righttotal knee arthroplasty having undergone the left TKA previously. Noperiprosthetic fracture or osteolysis is seen. No radiographic evidence of complicationis appreciated. Impression Status post interval right TKA without radiographic evidence ofcomplication. Chandra Del Rosario MD IMG DX ORDERABLES documented in this encounter Visit Diagnoses Diagnosis Status post right knee replacement documented in this encounter Care Teams Forge Heater Relationship Specialty Start Date End Date Candace Avery APRN [facility] [address] [place] [address] PCP - General 04/03/11 01/17/15 documented as of this encounter
--- OUTSIDE RECORDS SUMMARY | 2024-01-24 15:54 | XMS_ITS | Encounter Summary ---
Author Organization [facility] Address [facility] [place] [address] Care Team Providers Care Radio Mechanic Apprentice Name Role Phone BennieCandace Guanaco TORRES Primary Care Provider [phone] Reason for Visit * Reason Onset Date Comments Post Procedure Call 12/25/2013 Encounter Details Date Type Department Care Team (Late st Contact Info) Description 12/25/2013 Telephone [place] [address] Chandra Del Rosario MD [facility] [place] [address] Post Procedure Call Social History Tobacco Use [...] 12/25/2013 3:35 PM EDT Phone call to [facility] - they report that the oxycodone is relieving pain well but is causingnausea and dizziness. Mr Shadi Romo attempted to discontinue the oxycodone and only use Tylenol but pain became severe after 36 hours off the narcotic. Discuss use of vicodin - states he has used it in the past and did not have difficulty with this medication. Discuss with Ha Still PAC [facility] * Telephone Encounter - Elisha Velazquez - 12/25/2013 3:19 PM EDT Nelia the patient's scada engineer called stating the Oxycodone is not agreeing with Corona. It is making him dizzy and nauseous. Please call them back to discuss other options if any at [phone]. CASE DATE: 12/11/13 SURGEON: Carin Procedure(s): RIGHT @TOTAL KNEE ARTHROPLASTY MODIFIER PFC STABILIZED FIXED MODULAR DEPUY documented in this encounter Plan of Treatment Upcoming Encounters Date Type Department Care Team (Late st Contact Info) Description 03/19/2024 10:00 AM EDT Hospital Encounter Non-[place] [address] Arrived documented as of this encounter Visit Diagnoses Diagnosis Knee joint replacement by other means- Primary documented in this encounter Care Teams Radio Mechanic Apprentice Relationship Specialty Start Date End Date Candace Avery APRN [facility] [address] [place] [address] PCP - General 04/03/11 01/17/15 documented as of this encounter
--- OUTSIDE RECORDS SUMMARY | 2024-01-24 15:54 | XMS_ITS | Encounter Summary ---
Author Organization [facility] [place] [address] Care Team Providers Care Maitre D Name Role Phone BennieCandace Gunaaco TORRES Primary Care Provider [phone] Encounter Details Date Type Department Care Team (Late st Contact Info) Description 12/28/2013 Anti-Coag Telephone [place] [address] Paulina Rajput, RN Social History [...] Progress Notes * Paulina Rajput, RN - 12/28/2013 10:17 AM EDT Anticoagulation Therapy Nurse Visit Corona Romo 1945 Dr[address] Del Rosario Indication: DVT Prophylaxis S/P Joint Replacement Duration of Treatment: 28 days ends: January 08, 2014 Therapeutic Range: 2.0-3.0 INR: 2.2 Drawn by: [facility] Patient presents with [...] AM EDT Hospital Encounter [place] [address] Arrived documented as of this encounter Procedures Procedure Name Priority Date/Time Associated Diagnosis Comments EXTERNAL LAB RESULTS Routine 12/28/2013 documented in this encounter Results * (ABNORMAL) External Lab Results (12/28/2013) POC INR 2.2(Externa l Lab) 0.9 - 1.1 12/28/2013 Historical Provider CHEMISTRY ORDERAB LES documented in this encounter Visit Diagnoses Not on filedocumented in this encounter Care Teams Maitre D Relationship Specialty Start Date End Date Candace Avery APRN [facility] [address] [place] [address] PCP - General 04/03/11 01/17/15 documented as of this encounter
--- OUTSIDE RECORDS SUMMARY | 2024-01-24 15:54 | XMS_ITS | Encounter Summary ---
Author Organization [facility] Address [facility] [place] [address] Care Team Providers Care Crucible Furnace Tender Name Role Phone BennieFavianchaitanya Blanc APRN Primary Care Provider [phone] Reason for Visit * Reason Onset Date Comments Reminder Appointment 11/27/2014 Encounter Details Date Type Department Care Team (Late st Contact Info) Description 11/27/2014 Telephone [place] [address] Chandra Del Rosario MD [facility] [place] [address] Reminder Appointment Social History Tobacco Use Types Packs/Day Years [...] encounter Miscellaneous Notes * Telephone Encounter - Summer Braswell - 11/28/2014 11:15 AM EDT PATIENT SCHEDULED * Telephone Encounter - Becky Guerrier - 11/27/2014 10:44 AM EDT Left message #1 to schedule reminder appointment. documented in this encounter Plan of Treatment Upcoming Encounters Date Type Department Care Team (Late st Contact Info) Description 03/19/2024 10:00 AM EDT Hospital Encounter Non-Invasive [place] [address] Arrived documented as of this encounter Visit Diagnoses Not on filedocumented in this encounter Care Teams Crucible Furnace Tender Relationship Specialty Start Date End Date Candace Avery APRN [facility] [address] [place] [address] PCP - General 04/03/11 01/17/15 documented as of this encounter
--- OUTSIDE RECORDS SUMMARY | 2024-01-24 15:54 | XMS_ITS | Encounter Summary ---
Author Organization [facility] Address [facility] [place] [address] Care Team Providers Care Grapple Operator Name Role Phone BennieDaliaCandacemarissa Blanc APRN Primary Care Provider [phone]- [phone] Reason for Visit * Reason Comments Aftercare Of Tjr right tka 12/11/13 Encounter Details Date Type Department Care Team (Late st Contact Info) Description 03/22/2014 9:10 AM EDT Office Visit [place] [address] Chandra Del Rosario MD [facility] [place] [address] S/P knee replacement, right (Primary Dx) Discharge Disposition: Home Social History Tobacco Use [...] documented in this encounter Progress Notes * Terrell Still PA - 03/22/2014 9:59 AM EDT Patient Name: Corona Romo : 1945 MR#: [id number] Case Date: 12-11-2013 Surgeon: Sadie Del Rosario Procedure: right total knee replacement HPI: Corona Romo is a very pleasant 69 y.o. year-old male who presents for a 3 months follow-up of the above procedure. The patient [...] AM EDT Hospital Encounter Non-[place] [address] Arrived documented as of this encounter Visit Diagnoses Diagnosis S/P knee replacement, right- Primary documented in this encounter Care Teams Grapple Operator Relationship Specialty Start Date End Date Candace Avery APRN [facility] [address] [facility] [place] [address] PCP - General 04/03/11 01/17/15 documented as of this encounter
--- OUTSIDE RECORDS SUMMARY | 2024-01-24 15:54 | XMS_ITS | Encounter Summary ---
[place] [address] Care Team Providers Care Home Care Administrator Name Role Phone DaveCandace quinones Guanaco TORRES Primary Care Provider [phone] Encounter Details Date Type Department Care Team (Late st Contact Info) Description 12/25/2013 Anti-Coag [place]phone [place] [address] Paulina Rajput, RN Social History [...] Progress Notes * Paulina Rajput, RN - 12/25/2013 2:54 PM EDT Anticoagulation Therapy Nurse Visit Corona Romo [address] Dr[address] Del Rosario Indication: DVT Prophylaxis S/P Joint Replacement Duration of Treatment: 28 days ends: January 08, 2014 Therapeutic Range: 2.0-3.0 INR: 3.0 Drawn by: [facility] Patient presents with no signs of [...] AM EDT Hospital Encounter Non-Invasive [place] [address] Arrived documented as of this encounter Procedures Procedure Name Priority Date/Time Associated Diagnosis Comments EXTERNAL LAB RESULTS Routine 12/25/2013 documented in this encounter Results * (ABNORMAL) External Lab Results (12/25/2013) POC INR 3.0(Externa l Lab) 0.9 - 1.1 12/25/2013 Historical Provider CHEMISTRY ORDERAB LES documented in this encounter Visit Diagnoses Not on filedocumented in this encounter Care Teams Home Care Administrator Relationship Specialty Start Date End Date Candace Avery APRN [facility] [address] [place] [address] PCP - General 04/03/11 01/17/15 documented as of this encounter
--- OUTSIDE RECORDS SUMMARY | 2024-01-24 15:54 | XMS_ITS | Encounter Summary ---
[place] [address] Care Team Providers Care Theoretical Physics Teacher Name Role Phone DaveCandace quinones Guanaco TORRES Primary Care Provider [phone] Encounter Details Date Type Department Care Team (Late st Contact Info) Description 01/04/2014 Anti-Coag Telephone [place] [address] Paulina Rajput, RN Social History [...] Progress Notes * Paulina Rajput, RN - 01/04/2014 2:21 PM EDT Anticoagulation Therapy Nurse Visit Corona Romo [address] Dr[address] Del Rosario Indication: DVT Prophylaxis S/P Joint Replacement Duration of Treatment: 28 days ends: January 08, 2014 Therapeutic Range: 2.0-3.0 INR: 4.7 Drawn by: [facility] Patient presents [...] AM EDT Hospital Encounter Non-[place]vasive [place] [address] Arrived documented as of this encounter Procedures Procedure Name Priority Date/Time Associated Diagnosis Comments EXTERNAL LAB RESULTS Routine 01/04/2014 documented in this encounter Results * (ABNORMAL) External Lab Results (01/04/2014) POC INR 4.7(Externa l Lab) 0.9 - 1.1 01/04/2014 Historical Provider CHEMISTRY ORDERAB LES documented in this encounter Visit Diagnoses Not on filedocumented in this encounter Care Teams Theoretical Physics Teacher Relationship Specialty Start Date End Date Cnadace Avery APRN [facility] [address] [place] [address] PCP - General 04/03/11 01/17/15 documented as of this encounter
--- OUTSIDE RECORDS SUMMARY | 2024-01-24 15:54 | XMS_ITS | Encounter Summary ---
Author Organization [facility] Address [facility] [place] [address] Care Team Providers Care Food Counter Attendant Name Role Phone Satnam Barnes MD Primary Care Provider [phone] Reason for Visit * Reason Comments [facility] RT TKA 12/11/13 & LT T KA 09/10/05 S/P Fall 09/09/16 Encounter Details Date Type Department Care Team (Late st Contact Info) Description 10/07/2016 1:40 PM EDT Office [place] [address] Chandra Del Rosario MD [facility] DR [place] [address] Status post total right knee replacement; History [...] cm (5' 9) 10/07/2016 1:58 PM EDT s tated Body Mass Index 34.7 10/07/2016 1:58 PM EDT documented in this encounter Progress Notes * Dior Echeverria PA - 10/07/2016 1:40 PM EDT PATIENT NAME: Corona Romo AGE: 71 y.o. MR#: [id number] DATE OF VISIT: 10/07/2016 HISTORY OF PRESENT ILLNESS Mr. Romo a 71 y.o. year old male s/p left TKA on 09/10/05 and right TKA on12/11/13, both done by Dr. Del Rosario. He comes into clinic today for regular follow up, and notes that he took a bad fall at the beginning of September. He was outside walking down hill when he slipped on iceand landed on his right knee. He had immediate pain and swelling in the right knee, and developed ecchymosis over the knee as well. He went to the ED after the fall and had X-rays done there in [facility]. Since the fall his swelling has decreased a lot and his pain has completely resolved. His left knee is doing very well and he has no pain or complaints regarding it. Prior to this fall he had no pain or problems with the right knee. He is ambulating without any assistive devices and has no pain atall today. ROS: Negative for fever, chills, SOB, chest pain, nausea, vomiting, and diarrhea. Patient's medications, allergies, past medical, surgical, social and family histories were reviewedand updated as appropriate. Current Outpatient Prescriptions on [...] alignment, no evidence of loosening. X-rays from [facility] of the right knee show a small amount of lucency along the femoral component on lateral views. ASSESSMENT/PLAN: Corona Romo is a 71 y.o. male who presents to the clinic 11 years s/p left TKA and 3 years s/p right TKA. His exam findings are reassuring and his knee feels stable and is no longer symptomatic. Heshould wear his DINAH stockings to help with [...] AM EDT Hospital Encounter [place] [address] Arrived documented as of this encounter Visit Diagnoses Diagnosis Status post total right knee replacement History of total knee arthroplasty, left documented in this encounter Care Teams Food Counter Attendant Relationship Specialty Start Date End Date Satnam Barnes MD PCP - General 02/07/15 07/11/19 documented as of this encounter
--- OUTSIDE RECORDS SUMMARY | 2024-01-24 15:54 | XMS_ITS | Encounter Summary ---
Author Organization [facility] Address [facility] [place] [address] Care Team Providers Care Yolk Spray Drier Name Role Phone Candace Avery Guanaco TORRES Primary Care Provider [phone] Encounter Details Date Type Department Care Team (Late st Contact Info) Description 11/28/2014 Orders Only [place] [address] Chandar Del Rosario MD [facility] [place] [address] Knee joint replacement by other means Social History Tobacco Use Types Packs/Day Years [...] AM EDT Hospital Encounter Non-Invasive [place] [address] Arrived documented as of this encounter Results * XR knee diagnostic 1 or 2 view (02/07/2015 2:35 PM EDT) Anatomical Region Laterality Modality Knee N/A Radiographic Amparo ging 02/07/2015 2:35 PM EDT Impressions 02/07/2015 4:51 PM EDT IMPRESSION: Status post bilateral total knee arthroplasties [...] As noted in prior studies, the patient is status post bilateral total knee arthroplasties, most recently on the right. Hardware is in place in the bilateral knees without evidence of hardware complication. The alignment is unchanged from the prior exam. There are no osseous destructive lesions appreciated. There is an enthesophyte noted at the superior aspect of the right patella, unchanged from the prior study. There is also a small area of hypodensity at the superior posterior aspect of the right patella, likely representing a heterotopic ossification site. There is a region of calcification posterior to the right femur, likely representing vascular calcifications. No effusion is appreciated. There is an area of heterotopic bone formation at the left lateral femoral condyle, relatively unchanged when compared to the prior radiograph. Procedure Note Saul Chun MD - 02/07/2015 EXAMINATION: KNEE 1 OR 2 VIEWS/RIGHT CLINICAL HISTORY: RIGHT TKA TECHNIQUE: Standing AP radiograph of the bilateral knees, and lateralradiograph of the right knee COMPARISON: Standing alignment, standing AP and sunrise radiographs ofthe bilateral knees, and lateral radiograph of the right knee dated January. FINDINGS: As noted in prior studies, the patient is status post bilateral totalknee arthroplasties, most recently on the right. Hardware is in place in the bilateral knees without evidence of hardware complication. The alignmentis unchanged from the prior exam. There are no osseous destructive lesions appreciated. There is an enthesophyte noted at the superior aspect of theright patella, unchanged from the prior study. There is also a small area of hypodensity at the superior posterior aspect of the right patella,likely representing a heterotopic ossification site. There is a region ofcalcification posterior to the right femur, likely representing vascular calcifications.No effusion is appreciated. There is an area of heterotopic bone formation atthe left lateral femoral condyle, relatively unchanged when compared to theprior radiograph. IMPRESSION IMPRESSION: Status post bilateral total knee arthroplasties with hardware in placeand without evidence of hardware complication, with unchanged alignment ascompared to the prior exam. This report was reviewed by Saul Chun at 02/07/2015 4:45 PM Film and interpretation reviewed by the attending Chandra Del Rosario MD IMG DX ORDERABLES documented in this encounter Visit Diagnoses Diagnosis Knee joint replacement by other means Knee joint replacement by other means documented in this encounter Care Teams Yolk Spray Drier Relationship Specialty Start Date End Date Candace Avery, LAB SPECIALIST [facility] [address] [place] [address] PCP - General 04/03/11 01/17/15 documented as of this encounter
--- OUTSIDE RECORDS SUMMARY | 2024-01-24 15:54 | XMS_ITS | Encounter Summary ---
Author Organization [facility] Address [facility] [place] [address] Care Team Providers Care Information Officer Name Role Phone Satnam Barnes MD Primary Care Provider [phone] Reason for Referral * Diagnostic Test (Routine) - Specialty Diagnoses / Procedures Referred By Talita swain Referred To Contact Radiology Diagnoses Coronary artery disease with exertional angina Procedures NM Pharmacologic Stress CT Component Alfreda Benitez MD [facility] [place] [address] [place] [address] Referral ID Status Reason Start Date Expiration Date Visits Requested Visits Authorized [id number] Specialty Service Requested 11/11/2017 11/11/2018 2 2 Encounter Details Date Type Department Care Team (Late st Contact Info) Description 11/11/2017 9:40 AM EDT Office Visit Cardiology at [address] [address] Alton Acevedo MD [facility] [place] [address] Coronary artery disease with exertional angina; Essential hypertension; Coronary artery disease involving bear river heart with angina pectoris, unspecified vessel or lesion type; Lipid disorder; Obesity, unspecified classification, unspecified obesity type, unspecified whether serious comorbidity present Social History Tobacco Use Types Packs/Day Years [...] Progress Notes * Alfreda Benitez MD - 11/11/2017 9:40 AM EDT Images from the original note were not included. [facility] [place] [address] CARDIOLOGY OUTPATIENT NOTE PRIMARY CARE PROVIDER: Satnam [...] to establish longitudinal care with a new id rdiologist. HPI At the time of his last visit with Dr. Marino in August 2016 the patient had complaints of orthostatic symptoms but no bobby syncope. This was felt to be related to his numerous antihypertensives and taking them all in the morning. At that time Dr. Marino recommended discontinuing the patient's amlodipine and moving his nebivolol dosing to the evening. His antihypertensive regimen otherw ise includes losartan 100mg and furosemide 20mg po bid. He is also on doxazosin although this is for his BPH. His other cardiovascular medications include ASA 325mg [...] it sometimes happens after exerting himself. It is not always high. This morning is was 120s/70s. [...] Family history: Both parents . Mother with ASCVD/ME. Brother with ASCVD/ME. Social history: Presents with his . They [...] especially at the apex, S1 and S2 noted,no M/G/R appreciated Respirations unlabored, Lungs CTAB Abd [...] Precautions for presenting to the ED or [id number] were advised. Thank you for the opportunity to participate in this patient's cardiovascular care. All questions were answered and I look forward to the next visit. Alfreda Benitez PGY-4, Cardiovascular Diseases Fellow [facility] Personal Pager #[phone] I have read the fellow's note, examined the patient, and reviewed related information. I agree withthe management. Alton Acevedo MD documented in this encounter Miscellaneous Notes * Assessment & Plan Note - Alfreda Benitez MD - 11/11/2017 4:03 PM EDT Associated Problem(s): Obesity Discussed diet with a goal of weight loss. * Assessment & Plan Note - Alfreda Benitez MD - 11/11/2017 4:02 PM EDT Associated Problem(s): Lipid disorder Continue atorvastatin 80mg. * Assessment & Plan Note - Alfreda Benitez MD - 11/11/2017 3:57 PM EDT Associated Problem(s): CAD (coronary artery disease) Currently on [...] him NTG SL to use as needed. * Assessment & Plan Note - Alfreda Benitez MD - 11/11/2017 3:52 PM EDT Associated Problem(s): Hypertension Unclear control at this juncture, [...] AM EDT Hospital Encounter [place] [address] Arrived Pending Results Name Type Priority Associated Diagnoses Date/Time Nuclear Pharmacologic Stress Cardiology Cardiac Services Routine Coronary artery disease with exertional angina 11/16/2017 10:19 AM EDT Scheduled Orders Name Type Priority Associated Diagnoses Order Schedule NM Pharmacologic Stress CT Component Imaging Routine Coronary Artery Disease With Exertional Angina Expected: 11/12/2017 (Approximate), Expires: 11/11/2018 Nuclear Pharmacologic Stress Cardiology Cardiac Services Routine Coronary Artery Disease With Exertional Angina Expected: 11/11/2017, Expires: 05/13/2018 documented as of this encounter Visit Diagnoses Diagnosis Coronary artery disease involving bear [place] heart with angina pectoris, unspecified vessel or lesion type Essential hypertension Unspecified essential hypertension Lipid disorder Unspecified disorder of lipoid metabolism Obesity, unspecified classification, unspecified obesity type, unspecified whether serious comorbidity present documented in this encounter Care Teams Information Officer Relationship Specialty Start Date End Date Satnam Barnes MD PCP - General 02/07/15 07/11/19 documented as of this encounter
--- OUTSIDE RECORDS SUMMARY | 2024-01-24 15:54 | XMS_ITS | Encounter Summary ---
Author Organization [facility] Address [facility] [place] [address] Care Team Providers Care Human Resources Analyst Name Role Phone Candace Avery MELISSA Primary Care Provider [phone] Encounter Details Date Type Department Care Team (Late st Contact Info) Description 01/23/2014 [place] [address] Chandra Del Rosario MD [facility] [address] [place] [address] Status post right knee replacement (Primary Dx) Social History Tobacco Use Types [...] AM EDT Hospital Encounter Non[place] [address] Arrived documented as of this encounter Results * XR TKA first PO visit alignment AP LAT [place] (01/25/2014 10:00 AM EDT) Anatomical Region Laterality [...] Visit Diagnoses Diagnosis Status post right knee replacement- Primary Status post right knee replacement documented in this encounter Care Teams Human Resources Analyst Relationship Specialty Start Date End Date Candace Avery APRN [facility] [address] [place] [address] PCP - General 04/03/11 01/17/15 documented as of this encounter
--- OUTSIDE RECORDS SUMMARY | 2024-01-24 15:54 | XMS_ITS | Encounter Summary ---
Author Organization [facility] Address [facility] [place] [address] Care Team Providers Care Director Biologics Name Role Phone Satnam Barnes MD Primary Care Provider [phone] Encounter Details Date Type Department Care Team (Latest Contact Info) Description 02/07/2015 2:22 PM EDT - 02/07/2015 11:59 PM EDT Hospital Encounter XRay at [address] [place] [address] Knee joint replacement by other means Social [...] as needed. Use with spacer amLODIPine (NORVASC) 2.5 mg Tablet Take 2.5 mg by mouth daily. 0 12/06/2014 11/18/2015 amoxicillin (AMOXIL) 500 mg Capsule Take 500 [...] AM EDT Hospital Encounter Non-[place] [address] Arrived documented as of this encounter Procedures Procedure Name Priority Date/Time Associated Diagnosis Comments XR KNEE DIAGNOSTIC 1 OR 2 VIEW Routine 02/07/2015 2:35 PM EDT Knee joint replacement by other means documented in this encounter Results * XR knee diagnostic [...] means documented in this encounter Care Teams Director Biologics Relationship Specialty Start Date End Date Satnam Barnes MD PCP - General 02/07/15 07/11/19 documented as of this encounter
--- OUTSIDE RECORDS SUMMARY | 2024-01-24 15:54 | XMS_ITS | Encounter Summary ---
Author Organization [facility] Address [facility] Mariela hirsch [place] [id number] Care Team Providers Care Phosphatic Fertilizer Supervisor Name Role Phone Satnam Barnes MD Primary Care Provider [phone] Reason for Referral * Diagnostic Test (Routine) - Closed Specialty Diagnoses / Procedures Referred By Talita swain Referred To Contact Diagnoses Sinus arrest Procedures Shon Patterson MD [facility] [place] [address] Referral ID Status Reason Start Date Expiration Date V isits Requested Visits Authorized [id number] Closed Specialty Service Requested 11/16/2017 11/16/2018 1 1 Encounter Details Date Type Department Care Team (Late st Contact Info) Description 11/16/2017 Orders Only Cardiology at [address] [address] Shon Bro MD [facility] [place] [address] Sinus arrest Social History Tobacco Use Types Packs/Day Years [...] as of this encounter Progress Notes * Shon Bro - 11/16/2017 10:20 AM EDT This is [...] AM EDT Hospital Encounter [place] [address] Arrived documented as of this encounter Results * Ziop[place] (11/16/2017 12:20 PM EDT) Anatomical Region Laterality Modality Other Narrative 12/24/2017 8:40 PM EDT [facility] ? Zio Patch? Ambulatory Cardiac Event [...] ventricular quadruplet averaging 128 BPM. ?? No higher grade ectopy [...] pauses on 11/16/17 only. Otherwise rare generally lowgrade ambient ectopy only. Reported symptoms not associated with pauses and poorly correlated with ectopy. Avinash Melgar MD, PhD, [facility] Cardiac Electrophysiology Alton Acevedo MD CARDIAC SERVICES ORD ERABLES documented in this encounter Visit Diagnoses Diagnosis Sinus arrest Other heart block Sinus arrest Other heart block documented in this encounter Care Teams Phosphatic Fertilizer Supervisor Relationship Specialty Start Date End Date Satnam Barnes MD PCP - General 02/07/15 07/11/19 documented as of this encounter
--- OUTSIDE RECORDS SUMMARY | 2024-01-24 15:54 | XMS_ITS | Encounter Summary ---
Author Organization [facility] Address [facility] [place] [address] Care Team Providers Care Medical Technologist Microbiology Name Role Phone Satnam Barnes MD Primary Care Provider [phone] Encounter Details Date Type Department Care Team (Latest Contact Info) Description 09/20/2016 - 09/20/2016 11:59 PM EDT Hospital Encounter [place] [address] Chandra Del Rosario MD [facility] DR [place] [address] Pain Discharge Disposition: Home Social History Tobacco Use [...] AM EDT Hospital Encounter [place] [address] Arrived documented as of this encounter Procedures Procedure Name Priority Date/Time Associated Diagnosis Comments FILM LIBRARY STORAGE ONLY DX KNEE Routine 09/20/2016 12:00 AM EST Pain documented in this encounter Results * Film Library- Storage Only DX Knee (09/20/2016 12:00 AM EST) Narrative DAMON - 09/22/2016 11:45 AM EDT This exam is for storage only and is auto-finalizing. Chandra Del Rosario MD IMG FILM LIBRARY ORD ERABLES [place], [place] documented in this encounter Visit Diagnoses Diagnosis Pain Generalized pain documented in this encounter Care Teams Medical Technologist Microbiology Relationship Specialty Start Date End Date Satnam Barnes MD PCP - General 02/07/15 07/11/19 documented as of this encounter
--- OUTSIDE RECORDS SUMMARY | 2024-01-24 15:54 | XMS_ITS | Encounter Summary ---
Author Organization [facility] Address [facility] [place] [address] Care Team Providers Care Party Plan Sales Host/Hostess Name Role Phone Satnam Barnes MD Primary Care Provider Encounter Details Date Type Department Care Team (Latest Contact Info) Description 11/16/2017 9:47 AM EDT - 11/16/2017 10:29 AM EDT Hospital Encounter Non-Invasive Cardiology Lab [facility] [place] [address] Alton Acevedo MD [facility] [place] [address] Coronary artery disease with exertional angina Discharge Disposition: Home Social History Tobacco Use [...] AM EDT Hospital Encounter Non-[place] [address] Arrived Pending Results Name Type Priority Associated Diagnoses Date/Time Nuclear Pharmacologic Stress Cardiology Cardiac Services Routine Coronary artery disease with exertional angina 11/16/2017 10:19 AM EDT Scheduled Orders Name Type Priority Associated Diagnoses Order Schedule Nuclear Pharmacologic Stress Cardiology Cardiac Services Routine Coronary Artery Disease With Exertional Angina 1 Occurrences starting 11/16/2017 until 11/16/2017 documented as of this encounter Visit Diagnoses Diagnosis Coronary artery disease with exertional angina documented in this encounter Care Teams Party Plan Sales Host/Hostess Relationship Specialty Start Date End Date Satnam Barnes MD PCP - General 02/07/15 07/11/19 documented as of this encounter
--- OUTSIDE RECORDS SUMMARY | 2024-01-24 15:54 | XMS_ITS | Encounter Summary ---
Author Organization [facility] Address [facility] [place] [address] Care Team Providers Care Manager Field Investigations Name Role Phone Satnam Barnes MD Primary Care Provider [phone] Reason for Visit * Reason Comments Coronary Artery Disease Follow-up Encounter Details Date Type Department Care Team (Late st Contact Info) Description 08/26/2015 10:30 AM EST Office Visit Cardiology at [address] [address] Hima Marino MD [facility] CARDIOLOG[place] [address] Coronary artery disease involving [place] coronary artery of united [place] heart without angina pectoris; Lipid disorder; Essential hypertension Social History Tobacco [...] Rate - - Oxygen Saturation 98% 08/26/2015 10: 21 AM EST Inhaled Oxygen Concentration - - Weight 113.1 kg (249 lb 4.8 oz) 016 10:21 AM EST Height 175.3 cm (5' 9) 08/26/2015 10:2 1 AM EST Body Mass Index 36.82 08/26/2015 10:21 AM EST documented in this encounter Progress Notes * Hima Marino MD - 08/26/2015 10:32 AM [...] addition of doxasocin for BPH. His mentions thatthere has been recent pushback on the use of Bystolic because of cost. . Meds as below. He is using his CPAP mask irregularly and he comments that the device needs to be checked at [facility] to assess the humidification aspect. .. Allergies [...] 113.082 kg (249 lb 4.8 oz), SpO2 98 %. General: Obese, older man, appearing comfortable [...] talked with the patient about his remote [place] and the stable CAD by symptoms. I reviewed the issue of his BP control and the results of the recent SPRINT trail. He may be able to remain on the Bystolic if the case can be made that his control on this agent has been much more near target and, switching him off this drug for another beta eyal, [...] AM EDT Hospital Encounter Non-[place] [address] Arrived documented as of this encounter Visit Diagnoses Diagnosis Coronary artery disease involving united [place] coronary artery of united [place] heart without angina pectoris Lipid disorder Unspecified disorder of lipoid metabolism Essential hypertension Unspecified essential hypertension documented in this encounter Care Teams Manager Field Investigations Relationship Specialty Start Date End Date Satnam Barnes MD PCP - General 02/07/15 07/11/19 documented as of this encounter
--- OUTSIDE RECORDS SUMMARY | 2024-01-24 15:54 | XMS_ITS | Encounter Summary ---
Author Organization [facility] [place] [address] Care Team Providers Care Hydrostatic Tester Name Role Phone BennieCandace Guanaco TORRES Primary Care Provider [phone] Encounter Details Date Type Department Care Team (Late st Contact Info) Description 12/18/2013 Anti-Coag Telephone [place] [address] Paulina Rajput, RN Social History [...] Progress Notes * Paulina Rajput, RN - 12/18/2013 10:24 AM EDT Anticoagulation Therapy Nurse Visit Corona Romo 1945 Dr[address] Del Rosario Indication: DVT Prophylaxis S/P Joint Replacement Duration of Treatment: 28 days ends: January 08, 2014 Therapeutic Range: 2.0-3.0 INR: 1.6 Drawn by: [facility] Patient presents with no signs of [...] AM EDT Hospital Encounter Non-Invasive [place] [address] Arrived documented as of this encounter Procedures Procedure Name Priority Date/Time Associated Diagnosis Comments EXTERNAL LAB RESULTS Routine 12/18/2013 documented in this encounter Results * (ABNORMAL) External Lab Results (12/18/2013) POC INR 1.6(Externa l Lab) 0.9 - 1.1 12/18/2013 Historical Provider CHEMISTRY ORDERAB LES documented in this encounter Visit Diagnoses Not on filedocumented in this encounter Care Teams Hydrostatic Tester Relationship Specialty Start Date End Date Candace Avery APRN [facility] [address] [place] [address] PCP - General 04/03/11 01/17/15 documented as of this encounter
--- OUTSIDE RECORDS SUMMARY | 2024-01-24 15:54 | XMS_ITS | Encounter Summary ---
Author Organization [facility] Address [facility] [place] [address] Care Team Providers Care Dry Sander Name Role Phone Candace Avery APRN Primary Care Provider [phone] Reason for Visit * Reason Onset Date Comments Anticoagulation 01/01/2014 INR Results Encounter Details Date Type Department Care Team (Late Contact Info) Description 01/01/2014 Telephone Internal Medicine at [facility] [address] [place] [address] Candace Avery, SANDER MACHINE CAROLYN [address] [place], [place] [id number] Anticoagulation (INR Results) Social History Tobacco Use Types Packs/Day Years [...] encounter Miscellaneous Notes * Telephone Encounter - Marycarmen Eugene - 01/01/2014 11:22 AM EDT INR -2.2 [facility] documented in this encounter Plan of Treatment Upcoming Encounters Date Type Department Care Team (Late Contact Info) Description 03/19/2024 10:00 AM EDT Hospital Encounter Non-[place]vasive [place] [address] Arrived documented as of this encounter Visit Diagnoses Not on filedocumented in this encounter Care Teams Dry Sander Relationship Specialty Start Date End Date Candace Avery APRN [facility] [address] [place] [address] PCP - General 04/03/11 01/17/15 documented as of this encounter
--- OUTSIDE RECORDS SUMMARY | 2024-01-24 15:54 | XMS_ITS | Encounter Summary ---
Author Organization [facility] [place] [place] [address] Care Team Providers Care Leather Seasoner Name Role Phone Candace Avery APRN Primary Care Provider [phone] Reason for Visit * Reason Onset Date Comments Anticoagulation 12/28/2013 INR Results Encounter Details Date Type Department Care Team (Late st Contact Info) Description 12/28/2013 [place]phone [place] [address] Candace Avery, MELISSA [facility] [address] [place], [place] [id number] Anticoagulation (INR Results) Social History Tobacco Use [...] 10:15 AM EDT Please see anticoagulation encounter. * Telephone Encounter - Marycarmen Eugene - 12/28/2013 10:09 AM EDT Patient called in INR results 2.2 documented in this encounter Plan of Treatment Upcoming Encounters Date Type Department Care Team (Late st Contact Info) Description 03/19/2024 10:00 AM EDT Hospital Encounter Non-[place] [address] Arrived documented as of this encounter Visit Diagnoses Not on filedocumented in this encounter Care Teams Leather Seasoner Relationship Specialty Start Date End Date Candace Avery APRN [facility] [address] [place] [address] PCP - General 04/03/11 01/17/15 documented as of this encounter
--- OUTSIDE RECORDS SUMMARY | 2024-01-24 15:54 | XMS_ITS | Encounter Summary ---
Author Organization [facility] [place] [address] Care Team Providers Care Manual Arts Therapist Name Role Phone DaveCandace quinones Guanaco TORRES Primary Care Provider [phone]- [phone] Encounter Details Date Type Department Care Team (Late st Contact Info) Description 12/15/2013 Anti-Coag Telephone [place] [address] Paulina Rajput, RN Social History [...] Progress Notes * Paulina Rajput, RN - 12/15/2013 3:33 PM EDT Anticoagulation Therapy Nurse Visit Corona Romo 1945 Dr[address] Del Rosario Indication: DVT Prophylaxis S/P Joint Replacement Duration of Treatment: 28 days ends: January 08, 2014 Therapeutic Range: 2.0-3.0 INR: 1.3 Drawn by: [facility] Patient presents with no signs [...] AM EDT Hospital Encounter [place] [address] Arrived documented as of this encounter Procedures Procedure Name Priority Date/Time Associated Diagnosis Comments EXTERNAL LAB RESULTS Routine 12/15/2013 documented in this encounter Results * (ABNORMAL) External Lab Results (12/15/2013) POC INR 1.3(Externa l Lab) 0.9 - 1.1 12/15/2013 Historical Provider CHEMISTRY ORDERAB LES documented in this encounter Visit Diagnoses Not on filedocumented in this encounter Care Teams Manual Arts Therapist Relationship Specialty Start Date End Date Candace Avery APRN [facility] [address] [place] [address] PCP - General 04/03/11 01/17/15 documented as of this encounter
--- OUTSIDE RECORDS SUMMARY | 2024-01-24 15:54 | XMS_ITS | Encounter Summary ---
Author Organization [facility] Address [facility] Mariela hirsch [place] [id number] Care Team Providers Care Space Officer Name Role Phone Satnam Barnes MD Primary Care Provider [phone] Reason for Referral * Diagnostic Test (Routine) - Closed Specialty Diagnoses / Procedures Referred By Talita swain Referred To Contact Diagnoses Sinus arrest Procedures Shon Patterson MD [facility] [place] [address] Referral ID Status Reason Start Date Expiration Date V isits Requested Visits Authorized [id number] Closed Specialty Service Requested 11/16/2017 11/16/2018 1 1 Reason for Visit * Diagnostic Test (Routine) - Closed Specialty Diagnoses / Procedures Referred By Talita swain Referred To Contact Diagnoses Sinus arrest Procedures Shon Patterson MD [facility] [place] [address] Referral ID Status Reason Start Date Expiration Date V isits Requested Visits Authorized [id number] Closed Specialty Service Requested 11/16/2017 11/16/2018 1 1 Encounter Details Date Type Department Care Team (Latest Contact Info) Description 11/16/2017 10:30 AM EDT - 11/16/2017 11:59 PM EDT Hospital Encounter [place] [address] [facility] [place] [address] Sinus arrest Discharge Disposition: Home Social History Tobacco Use [...] AM EDT Hospital Encounter [place] [address] Arrived documented as of this encounter Procedures Procedure Name Priority Date/Time Associated Diagnosis Comments ZIOPATCH Routine 11/16/2017 12:20 PM EDT Sinus arrest documented in this encounter Results * Ziopatch (11/16/2017 12:20 PM EDT) Anatomical Region Laterality Modality Other Narrative 12/24/2017 8:40 PM EDT [facility] ? Zio Patch? Ambulatory Cardiac Event [...] correlated with ectopy. Avinash Melgar MD, PhD, [facility] Cardiac Electrophysiology Alton Acevedo MD CARDIAC SERVICES ORD ERABLES documented in this encounter Visit Diagnoses Diagnosis Sinus arrest Other heart block documented in this encounter Care Teams Space Officer Relationship Specialty Start Date End Date Satnam Barnes MD PCP - General 02/07/15 07/11/19 documented as of this encounter
--- OUTSIDE RECORDS SUMMARY | 2024-01-24 15:54 | XMS_ITS | Encounter Summary ---
Author Organization [facility] Address [facility] [place] [address] Care Team Providers Care Surgery Manager Name Role Phone BennieDaliaCandacemarissa Blanc APRN Primary Care Provider [phone] Reason for Visit * Reason Comments Aftercare Of Tjr right tka 12/11/13 Encounter Details Date Type Department Care Team (Late st Contact Info) Description 01/25/2014 10:20 AM EDT Office Visit [place] [address] Chandra Del Rosario MD [facility] [address] [place] [address] S/P total knee arthroplasty, right (Primary Dx) Discharge Disposition: Home Social [...] documented in this encounter Progress Notes * Pb Schroeder PA - 01/25/2014 10:22 AM EDT Patient Name: Corona Romo : 1945 MR#: [id number] Case Date: 12/11/2013 Surgeon: Surgeon(s) and Role: * Chandra Del Rosario MD - Primary * Pb Schroeder PA - Physician Mobile Manager Preoperative diagnosis: RIGHT TKA Postoperative diagnosis: RIGHT [...] for repeat examination. No x-rays will be needed at that time. [...] We also discussed maintaining good foot care andgiving prompt attention to any source of infection throughout the body including foot ulcers and urinary tract infections. The patient was seen and the plan was formulated in conjunction with Dr. Del Rosario. documented in this encounter Plan of Treatment Upcoming Encounters Date Type Department Care Team (Late st Contact Info) Description 03/19/2024 10:00 AM EDT Hospital Encounter Non-[place] [address] Arrived documented as of this encounter Visit Diagnoses Diagnosis S/P total knee arthroplasty, right- Primary documented in this encounter Care Teams Surgery Manager Relationship Specialty Start Date End Date Candace Avery APRN [facility] [address] [place] [address] PCP - General 04/03/11 01/17/15 documented as of this encounter
--- OUTSIDE RECORDS SUMMARY | 2024-01-24 15:54 | XMS_ITS | Encounter Summary ---
Author Organization [facility] Address [facility] [place] [address] Care Team Providers Care Developmental Mathematics Instructor Name Role Phone Satnam Barnes MD Primary Care Provider [phone] Reason for Visit * Reason Comments Aftercare Of Tjr 12/11/13 RT TKA Postop Encounter Details Date Type Department Care Team (Late st Contact Info) Description 02/07/2015 3:10 PM EDT Office [place] [address] Chandra Del Rosario MD [facility] DR OR[place] [address] Status post total right knee replacement; History [...] - - Weight 113.8 kg (250 lb 14. 4 oz) 02/07/2015 3:42 PM EDT fully clothed Height 175.3 cm (5' 9) 02/07/2015 3:42 PM EDT verbal Body Mass Index 37.05 02/07/2015 3:42 PM EDT documented in this encounter Progress Notes * Sun Chang, PASTA PRESS OPERATOR - 02/07/2015 4:09 PM EDT Patient Name: Corona Romo : 1945 MR#: [id number] Case Date: 12-11-2013 Surgeon: Sadie Del Rosario [...] from TKA, approximately 1 week ago after picking blueberries. There has been no drainage, but the [...] for repeat examination. X-rays will be needed atthat time. Patient may return to normal activities [...] AM EDT Hospital Encounter Non-[place] [address] Arrived documented as of this encounter Visit Diagnoses Diagnosis Status post total right knee replacement History of total knee arthroplasty, left documented in this encounter Care Teams Developmental Mathematics Instructor Relationship Specialty Start Date End Date Satnam Barnes MD PCP - General 02/07/15 07/11/19 documented as of this encounter
--- OUTSIDE RECORDS SUMMARY | 2024-01-24 15:55 | XMS_ITS | Encounter Summary ---
Author Organization [facility] Address [facility] [place] [address] Care Team Providers Care Insurance Advisor Name Role Phone BennieDaliaCandacemarissa Blanc APRN Primary Care Provider [phone]- [phone] Encounter Details Date Type Department Care Team (Latest Contact Info) Description 10/02/2013 1:30 PM EDT Ancillary Appointment [place] [address] Arik Forrester, RVT Osteoarthritis of right knee; History of total knee arthroplasty, left Social [...] AM EDT Hospital Encounter Non-[place] [address] Arrived documented as of this encounter Procedures Procedure Name Priority Date/Time Associated Diagnosis Comments LINDA, LEGS, MULTIPLE LEVELS Routine 10/02/2013 1:38 PM EDT Osteoarthritis of right knee History of total knee arthroplasty, left documented in this encounter Results * LINDA, legs, multiple levels (10/02/2013 1:38 PM EDT) VB Text Report Department: Vascular Surgery Lab Patient: [id number] (LISA ROMO) CPT Code: 26823 ICD-9: 440.20 Referring Physician: CHANDRA GARZA Indication: ?? RIGHT lower extremity pain with walking, ? PVD Diabetes mellitus: Yes ICD9 Diagnosis Code: 440.20 LINDA = Ankle / Brachial Systolic Pressure Index, TBI = Toe / Brachial Systolic Pressure Index Findings: Right ?Pressure (mm Hg) ?? LINDA ??Waveform ? TBI ?? Brachial Artery ?157 ? Common Femoral Artery ?Triphasic ? Pop Fossa ?Triphasic ? Dorsalis Pedis (Ankle) Artery ?176 ? 1.12 ??Bi-Triphasic ? Posterior Tibial (Ankle) Artery ??191 ? 1.22 ??Triphasic ? Great Toe ?107 ? 0.68 ?? Left ? Pressure (mm Hg) ?? LINDA ??Waveform ?TBI ?? Brachial Artery ?155 ? Common Femoral Artery ?Triphasic ? Pop Fossa ?Triphasic ? Dorsalis Pedis (Ankle) Artery ?184 ? 1.17 ??Triphasic ? Posterior Tibial (Ankle) Artery ??178 ? 1.13 ??Triphasic ? Great Toe ?125 ?0.80 ?? Interpretation: RIGHT: Mild lower extremity arterial occlusive disease. LEFT: No significant lower extremity arterial occlusive disease identified at rest. Normal ankle/brachial pressure ratios and Doppler waveforms. Comment: If patient symptoms are consistent with vascular claudication, consider treadmill exam to identify arterial stenoses that are hemodynamically significant only when the periphery is vasodilated. Comparison: ??No previous study in our vascular lab database for comparison. Electronically Signed by: MICH BLANCO on 2013-10-03 09:54:26 AM VASCUBASE VB Text Report End of Report VASCUBASE 10/02/2013 1:38 PM EDT Chandra Garza MD VASCULAR ORDERABLES VASCUBASE documented in this encounter Visit Diagnoses Diagnosis Osteoarthritis of right knee Osteoarthrosis, unspecified whether generalized or localized, lower leg History of total knee arthroplasty, left documented in this encounter Care Teams Insurance Advisor Relationship Specialty Start Date End Date Candace Avery, MELISSA [facility] [address] [place] [address] PCP - General 04/03/11 01/17/15 documented as of this encounter
--- OUTSIDE RECORDS SUMMARY | 2024-01-24 15:55 | XMS_ITS | Encounter Summary ---
Author Organization [facility] Address [facility] [place] [address] Care Team Providers Care Machine Assembler Supervisor Name Role Phone Candace Avery Guanaco TORRES Primary Care Provider [phone] Reason for Visit * Reason Comments Aftercare Of Tjr left tka Right Knee Pain knee pain Encounter Details Date Type Department Care Team (Late st Contact Info) Description 08/10/2013 2:20 PM EST [place] [address] Chandra Del Rosario MD [facility] [place] [address] Pb Schroeder PA [address] [place] [address] Osteoarthritis of right knee; History of total knee arthroplasty, left Discharge [...] Progress Notes * Pb Schroeder PA - 08/10/2013 3:20 PM EST PATIENT NAME: Lisa Romo AGE: 68 y.o. MR#: [id number] DATE OF VISIT: 08/10/2013 SURGERY DATE: 09/10/2005 Procedure Performed: Left total knee arthroplasty. STAFF: The patient was seen and the plan was formulated in conjunction with Dr. Del Rosario. CHIEF COMPLAINT: right knee pain and follow-up of a left TKA HISTORY OF PRESENT ILLNESS Mr. Demetrius saucedo 68 y.o. year old male comes into clinic today for right knee pain and follow-up of a left TKA. He reports that his right knee the worse pain that he has ever hadhe is interested in having a TKA. We last saw him last year and referred him to Cardiology, he reports that he was cleared for surgery, but by [...] lb weight loss, since then he reports thathis weight has been steady since then. He [...] , some narrowing ; 3= moderate osteophytes, significantnarrowing, mild deformity; 4= large osteophytes, marked narrowing, [...] knee taken today, with advanced DJD of theright knee and narrowing of the medial compartment, the left knee s/p TKA without any signs of hardware loosening or complications. ASSESSMENT/PLAN: The patient was seen and the plan was formulated in conjunction with Dr. Del Rosario. Lisa Romo is a 68 y.o. male presents to the clinic with right knee pain secondary to advanced stage of osteoarthritis of the joint. The patient has had progressive pain over the right knee which is starting to impair his level of function activity. He is most interested in pursuing total joint replacement. We discussed the surgical procedure, the risk and benefits of the surgery, and usual rehabilitation course. Given his past medical history significant for previous myocardial infarction, coronary artery disease, diabetes mellitus, and hypertension we would like him to see his biometric technician for pre-operativeclearance as well as LINDA studies to evaluate [...] surgery. documented in this encounter Miscellaneous Notes * Addendum Note - Pb Schroeder PA - 08/10/2013 5:08 PM ESTAddended by: PB SCHROEDER on: 08/10/2013 05:08 PM Modules accepted: Orders documented in this encounter Plan of Treatment Upcoming Encounters Date Type Department Care Team (Late st Contact Info) Description 03/19/2024 10:00 AM EDT Hospital Encounter Non-[place] [address] Arrived documented as of this encounter Results * LINDA, legs, multiple levels (10/02/2013 1:38 PM EDT) [facility] Text Report Department: Vascular Surgery Lab Patient: [id number] (LISA ROMO) CPT Code: 01106 ICD-9: 440.20 Referring Physician: CHANDRA DEL ROSARIO Indication: ?? RIGHT lower extremity pain with [...] Report VASCUBASE 10/02/2013 1:38 PM EDT Chandra Del Rosario MD VASCULAR ORDERABLES [facility] documented in this encounter Visit Diagnoses Diagnosis Osteoarthritis of right knee Osteoarthrosis, unspecified whether generalized or localized, lower leg History of total knee arthroplasty, left documented in this encounter Care Teams Machine Assembler Supervisor Relationship Specialty Start Date End Date Candace Avery APRN [facility] [address] [place] [address] PCP - General 04/03/11 01/17/15 documented as of this encounter
--- OUTSIDE RECORDS SUMMARY | 2024-01-24 15:55 | XMS_ITS | Encounter Summary ---
Author Organization [facility] Address [facility] [place] [address] Care Team Providers Care Medicine Tech Name Role Phone Bennie Candace Blanc APRN Primary Care Provider [phone]- [phone] Encounter Details Date Type Department Care Team (Late st Contact Info) Description 10/11/2013 Telephone [place] [address] Chandra Del Rosario MD [facility] [place] [address] Social History Tobacco Use Types Packs/Day Years [...] encounter Miscellaneous Notes * Telephone Encounter - Jose Herring - 10/11/2013 4:14 PM EDT Pt called back on 10/11/13 and scheduled surgical procedure for 12/11/[address] Del Rosario * Telephone Encounter - Jose Herring - 10/11/2013 3:57 PM EDT LM today, 10/11/13 for pt to return call to schedule surgical procedure with Dr. Del Rosario. documented in this encounter Plan of Treatment Upcoming Encounters Date Type Department Care Team (Late st Contact Info) Description 03/19/2024 10:00 AM EDT Hospital Encounter Non-Invasive [place] [address] Arrived documented as of this encounter Visit Diagnoses Not on filedocumented in this encounter Care Teams Medicine Tech Relationship Specialty Start Date End Date Candace Avery, MELISSA [facility] [address] [place] [address] PCP - General 04/03/11 01/17/15 documented as of this encounter
--- OUTSIDE RECORDS SUMMARY | 2024-01-24 15:55 | XMS_ITS | Encounter Summary ---
Author Organization [facility] Address [facility] [place] [address] Care Team Providers Care Legal Services Professional Name Role Phone Candace Avery APRN Primary Care Provider [phone] Encounter Details Date Type Department Care Team (Latest Contact Info) Description 11/30/2013 2:07 PM EDT - 11/30/2013 11:59 PM EDT Hospital Encounter XRay at [address] [place] [address] Right knee pain Social History Tobacco Use Types Packs/Day Years [...] 4 hours as needed. Use with spacer acetaminophen (TYLENOL) 500 mg tablet Take 2 tablets by mouth every 8 hours. Take around the clock for the first 10 days (December 21) and then as needed to help control pain. DO NOT EXCEED 3000 MG IN A 24 HOUR PERIOD. 12/14/2013 03/22/2014 bisacodyl (DULCOLAX) [address] 1 suppository rectally daily as needed. 12/14/2013 01/25/2014 oxyCODONE (ROXICODONE) 5 mg immediate release tablet Take 1-3 tablets by mouth every 4 hours as needed for Pain (mild pain). 90 tablet 0 12/14/2013 12/25/2013 polyethylene glycol (MIRALAX) 17 gram packet Take 17 g by mouth daily. 0 12/14/2013 01/25/2014 senna-docusate (PERICOLACE) 8.6-50 mg per tablet Take 1-4 tablets by mouth 2 times daily. Take while on the narcotic pain medicine. 60 tablet 2 12/14/2013 01/25/2014 warfarin (COUMADIN) 5 mg tablet Take 1.5 tablets by mouth daily. Your dose may vary depending on your INR value. You may need to break or combine pills to achieve the right dose. 45 tablet 0 12/14/2013 01/25/2014 amlodipine (NORVASC) 10 mg tablet Take 2.5 mg by mouth daily. 01/25/2014 CALCIUM CARBONATE/VITAMIN D3 (VITAMIN D-3 ORAL) Take 2,000 Units by mouth daily. 01/25/2014 acetaminophen (TYLENOL) 500 mg tablet Take 1,000 mg by mouth every 6 hours as needed. 12/14/2013 ferrous sulfate 325 mg (65 mg iron) [...] mouth 2 times daily (with meals). 03/24/2023 aspirin 325 mg tablet 08/06/20102013 penicillin v potassium (VEETID) 500 mg tablet 500mg, PO, BID 08/06/2010 documented as of this encounter Plan of Treatment Upcoming Encounters Date Type Department Care Team (Late st Contact Info) Description 03/19/2024 10:00 AM EDT Hospital Encounter Non-Invasive [place] [address] Arrived documented as of this encounter Procedures Procedure Name Priority Date/Time Associated Diagnosis Comments XR JOINT TEAM ALIGNMENT AP LAT SCHUSS SKYLINE Routine 11/30/2013 2:25 PM EDT Right knee pain documented in this encounter Results * XR Joint Team alignment AP LAT Schuss [place] (11/30/2013 2:25 PM EDT) Anatomical Region Laterality Modality N/A Radiographic Amparo ging 11/30/2013 2:25 PM EDT Narrative 11/30/2013 4:50 PM EDT Examination JOINT TEAM STANDING ALIGNMENT AP LAT SCHUSS SKYLINE/RIGHT Clinical History right knee pain Comparison None Technique Separate images of the pelvis, knees and feet were acquired in the AP projection with the patient standing. In addition to routine views of the knee, these images were stitched together to form a composite image of the pelvis and legs allowing for evaluation of lower extremity alignment in the weight bearing position. 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 ??Mechanical axis is well centered on the left. ??On the right there is medial displacement mechanical axis and severe medial joint space narrowing. At the right knee there is a joint effusion but I do not see a fracture. ?? Severe medial compartment joint space narrowing is present. ??There is subchondral sclerosis and osteophyte formation. ??Chondrocalcinosis can be seen in the lateral compartment. Procedure Note Terrell Lugo MD - 11/30/2013 Examination JOINT TEAM STANDING ALIGNMENT AP LAT SCHUSS SKYLINE/RIGHT Clinical History right knee pain Comparison None Technique Separate images of the pelvis, knees and feet were acquired in the AP projection with the patient standing. In addition to routine views of theknee, these images were stitched together to form a composite image of thepelvis and legs allowing for evaluation of lower extremity alignment in the weightbearing position. 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 Mechanical axis is well centered on the left. On the right there is medial displacement mechanical axis and severe medial joint space narrowing. At the right knee there is a joint effusion but I do not see a fracture. Severe medial compartment joint space narrowing is present. There is subchondral sclerosis and osteophyte formation. Chondrocalcinosis can beseen in the lateral compartment. Chandra Del Roasrio MD IMG DX ORDERABLES documented in this encounter Visit Diagnoses Diagnosis Right knee pain Pain in joint, lower leg documented in this encounter Care Teams Legal Services Professional Relationship Specialty Start Date End Date Candace Avery APRN [facility] [phone] [place] [address] PCP - General 04/03/11 01/17/15 documented as of this encounter
--- OUTSIDE RECORDS SUMMARY | 2024-01-24 15:55 | XMS_ITS | Encounter Summary ---
Author Organization [facility] Address [facility] [place] [address] Care Team Providers Care Authorization Nurse Name Role Phone BennieDaliaCandacemarissa Blanc APRN Primary Care Provider [phone]- [phone] Encounter Details Date Type Department Care Team (Latest Contact Info) Description 12/11/2013 7:07 AM EDT - 12/14/2013 2:23 PM EDT Hospital Encounter [address] [place] [address] Juan Jose Del Rosario MD [facility] [place] [address] Osteoarthritis of knee Discharge Disposition: Home with VNA Social History Tobacco Use Types Packs/Day Years [...] 170.8 cm (5' 7.25) 12/11/2013 10:43 PM E DT Body Mass Index 38.86 12/11/2013 10:43 PM EDT documented in this encounter Discharge Instructions * Discharge Instructions* Elana Gamez APRN - 12/14/2013 12:38 PM EDT Activity: You [...] Coumadin today. Take this medication at the same time each day - usually 5pm. 2. Your coumadin level or INR target range is 2-3 and this will need to be checked by the Visiting Nurse on the day after discharge and at least twice per week thereafter (usually every Wednesday and ). The INR should be reported to the [facility] Ortho clinic at [phone], and you will be informed of any needed changes in your Coumadin dose. 3. If your INR level is ever above 3.5 you should not participate in aggressive Physical therapy exercises - you can mobilize/ambulate. This will decrease the possibility of more bleeding into your joint. Once your INR is less than 3.5 you can resume Physical therapy. One of the Orthopedic nurses will call you with further instructions as needed. 4. You will be on Coumadin for 4 weeks. On January 08, STOP the Coumadin and begin Aspirin 325mg twice a day until you are seen in followup with your orthopedic surgeon. Take aspirin with food. Diet: Resume usual diet, but increase your intake of fluids and fiber while you are on narcotic pain meds to prevent constipation Driving: DO NOT DRIVE [...] You should also take the stool softener that was ordered, sennakot, to factilitate a bowel movement. An bijn-wzc-xxrrwxo medication, miralax can also be used if needed to combat constipation 2. If you need a renewal on your narcotic pain medication, you need to give the Orthopedic clinic enough time to process your request. This can take up to three days, so plan accordingly. 3. You have been discharged on a short acting narcotic. You will be on this medication for a limited period of time only. Taper off these medications [...] 21, you may take tylenol as needed to help control the pain. DO NOT EXCEED 3000 MG Tylenol in a 24 hour period. Shower: 1. You can shower but remember your activity limitations and always have a chair available for balance and protection. DO NOT submerge the dressing/incision. 2. Do not let water run over the operative dressing. If it becomes wet lightly pat the dressing dry. When this operative dressing is removed you can let water gently run over the incision. DO NOT submerge the incision. No tub baths, pools, creeks, cooper, hot tubs, ponds, etc. 3. U have justine. Always cover them with a [...] Do not pull the dressing back to look at the incision unless there is a problem. It will not re adhere to your skin. 3. If you have lots of drainage when you get home (and it is before December 18), remove this operative dressing and replace it with dry sterile gauze. Continue with daily dressing changes (and as needed) until the drainage stops, then remove the dressing and leave the incision open to air or lightly covered. FOLLOWUP APPOINTMENTS: 1. You will have followup appointments at [facility] as indicated in Future Appointments and Orders. You will have an xray prior to those appointments [...] Take 2,000 Units by mouth daily. 01/25/2014 ferrous sulfate 325 mg (65 mg iron) [...] BID 08/06/2010 documented as of this encounter Progress Notes * Apoorva Easley RN - 12/14/2013 2:22 PM EDT Patient discharged to home with VNA services. IV removed, site benign. My assessment remains unchanged from my previous assessment. Patient denies chest pain and shortness of breath. Discussed pain management with patient, pain tolerable. Patient medicated prior to discharge. Patient has all belongings. Patient received discharge summary and prescriptions. These were reviewed. All questions answered. Patient encouraged to call with questions or concerns. Patient discharged to home with family. Discharge Summary was faxed, RN called report to VNA. * Magaly Slaughter RN - 12/14/2013 12:35 PM EDT Met with pt and his again this am to discuss discharge plan. We discussed that rehab is recommended to improve strength and conditioning. Pt and decline need. we have plenty of help at home, the kids said they will step up.. Pt and anticipate discharge to home later today. Referral for [facility] for services. * Obey Beltre PTA - 12/14/2013 10:30 AM [...] by Juan Jose Del Rosario MD at [facility] Social History: Patient lives with his and cares for his 4 yo grandson a significant amount. 5steps to enter and 1 flight to only bathroom. Precautions/Special Considerations: WBAT R L/E Post-operative course: Uneventful Subjective: Patient states ???I've been to rehab on three other occasions and I don't feel like they give patients enough assistance. Their excuse is we [...] arc quads, seated heel slides, and long arcquads. 3. Nu-Step UE & LE flex/ext for [...] large supported shoes secondary to diabetes, drop myles t/AFO. Pt has met hospital PT goals to [...] treatment: 30 minutes OBEY BELTRE PTA Pager: [phone] * Pb Schroeder, PA - 12/14/2013 7:19 AM EDT Orthopaedic [...] Jose Del Rosario MD [facility] None * Obey Beltre, INSPECTOR SALVAGE - 12/13/2013 3:45 PM EDT Physical Therapy [...] by Juan Jose Del Rosario MD at [facility] Social History: Patient lives with his and cares for his 4 yo grandson a significant amount. 5steps to enter and 1 flight to only bathroom. Precautions/Special Considerations: WBAT R L/E Post-operative course: Uneventful Subjective: Patient states ???I do have a second floor but I will not be going up there. I'll be onthe first floor!?? Objective: Vitals: SpO2: WNL, HR [...] arc quads, seated heel slides, and long arcquads. 3. Nu-Step UE & LE flex/ext for [...] ind. x Discharge Recommendations: Patient will require 24/7 supervision and assistance. Patient would benefit and tolerate continued daily intensive therapy interventions to maximize functional independence. Pt may benefit from shortrehab stay to increase his mobility, independence and [...] minutes Total timed treatment: 40 minutes OBEY BELTRE PTA Pager: [phone] * Juan Jose Del Rosario MD - 12/13/2013 [...] and will remove meza, will continue to follow. Will continue to mobilize today. Recommendations: Weight bearing status of operative extremity: Weight bearing as tolerated Wound closure: [place] (remove 10-14 days) Dressing changes: Mepilex Silver [...] Jose Del Rosario MD [facility] None * Triny Patel - 12/12/2013 2:48 PM EDT Regional Anesthesia Progress Note Date of Encounter: 12/12/2013 Responsible Attending: Dr. Marquez [place] Staff / Associate Provider: TRINY PATEL MD [...] was instructed to contact Regional Anesthesia Team ([id number]) for any unresolved sensory or motor deficits. ?? Thank you for the opportunity to have participated in the care of this patient. TRINY PATEL MD Regional Team pager [phone] * Magaly Slaughter RN - 12/12/2013 1:18 PM EDT This is a 68 yo gentleman who underwent R TKA with Dr Del Rosario on 12/11/13. Pt has Medicare and [place] medicaid insurance. Pt is currently reclined in [...] preference for vendors. Pt requests referral to [facility] services as pt familiar with services. We discussed benefits of rehab stay however pt does not feel this needed and hoping to be able to go home with support of VNA services. Will complete referral for [facility], secure FWW and follow. Anticipate d/c potentially 48 hrs. * Juan Jose Del Rosario MD - 12/12/2013 [...] Value Range Surgical Pathology Final Report Value: [facility] Provider: JUAN JOSE DEL ROSARIO Pt. Name: LISA ROMO Acc #: [id number] Pt. Col Date: 12/11/2013 /Sex: 1945,(68 years),Male [...] today. Recommendations: Will Remove drain, Meza and TAX COLLECTOR today Weight bearing status of operative extremity: [...] formulating the plan as outlined. Will get foleyout today as his urine has cleared and he can mobilize. He has had issues with hesitancy and difficulty in starting in the past. Would likely benefit from workup in the future. JUAN JOSE DEL ROSARIO MD Future Appointments Date Time Provider Department Center 01/25/2014 10:20 AM Juan Jose Del Rosario MD [facility] None * Yesenia Acevedo RN - 12/11/2013 5:48 PM EDT Pt arrived to floor from PACU. Oriented to room and call brennan. Pt is A / O x 4. Denies SOB, CP, N/V. Denies numbness / tingling to RLE. Meza catheter patent and draining clear, yellow urine. Davol drain in place, draining scant amt of s/s fluid. Cryo cuff on R knee for comfort. Pt reports adequatepain control and is using TAX COLLECTOR button appropriately. at bedside. Will continue to monitor. YESENIA ACEVEDO RN. * Wilmer Velázquez - 12/11/2013 3:40 PM EDT Orthopaedic Surgery [...] Constavac attached and draining serosagnuinous fluid. Motor intact to EHL, FHL, TA. Sensation intact in foot/calf. Brisk capillary refill distally. Labs: No results found for this basename: WBC:3,HGB:3,HCT:3,PLATELET:3,NA:3,K:3,CL:3,CO2:3,BUN:3,CREATININE:3 in the last 72 hours A/P: 68 y.o. year old male POD#0 s/p right TKA, progressing well with stable vitals and uop. - Orders reviewed - continue all post-operative care -WBAT -difficulty placing meza, needed a 12 Fr -coumadin mepilex justine * Lucero Choi RN - 12/11/2013 1:10 PM EDT 1255 - Pt arrived to PACU via bed. Monitors placed, alarms set and audible. 1458 - Report called to MARY Patterson on . documented in this encounter H&P Notes * Juan Jose Del Rosario MD - 12/11/2013 10:10 AM EDT The patient's history and physical exam have been reviewed and completed. There has been no interval change from that of the pre-operative history and physical exam done within the last 30 days. * Juan Jose Del Rosario MD - 12/11/2013 10:10 AM EDT Patient Name: Lisa Romo Patient Age: 68 y.o. Birthdate: 1945 Admit date: 12/11/2013 Attending Physician: Juan Jose Del Rosario MD See scanned document for pre-procedural H&P. documented in this encounter Procedure Notes * Provider, Scanning - 12/15/2013 11:49 AM EDTAssociated Order(s): SCAN DOC: IMPLANTABLE DEVICES documented in this encounter Miscellaneous Notes * Miscellaneous - Provider, Scanning - 12/15/2013 12:11 PM EDT * Miscellaneous - Provider, Scanning - 12/15/2013 11:49 AM EDT * Discharge Summary - Arianne Giordano PA - 12/14/2013 11:52 AM EDT Discharge Summary Patient Name: Lisa Romo Patient Age: 68 y.o. Language: Indonesian Race: White Ethnicity: Not nor Admit date: 12/11/2013 Discharge date and time: 12/14/2013 Attending Physician: Juan Jose Del Rosario MD Discharge Physician: Juan Jose Del Rosario MD Follow-up Recommendations for Providers: See patient discharge instructions for additional details Inpatient Provider Contact Information: Dr. Del Rosario Joints: [phone] After hours and weekends, call [facility], , and have Orthopedic resident paged. Discharge [...] Primary * Pb Schroeder PA - Physician Fork Lift Mechanic History of Presentation: The patient is 68 [...] ,infection ,blood clots, scar formation, patellar dislocation, per sistent pain, stiffness, failure, wear or loosening of components, fracture, nerve palsy, injury toblood vessel, skin numbness, anesthetic risks or medical complications and need for additional surgery. Hospital Course: The patient was admitted via Same Day Surgery for the above operation. DVT prophylaxis: Coumadin. Patient began rehab on POD#1 w/ weight bearing as tolerated of right leg rememberingto use protection at all times for balance and protection. Drains were removed POD# 1. Meza was removed POD#2 and patient was voiding spontaneously. Mepilex dressing was inspected POD#3 and found jw benign. Patient did have a bowel movement prior to discharge and was passing flatus . By POD#3 the patient was medically stable and was cleared for safe discharge to home with VNA. Of note. The patient had a traumatic meza catheter placement in the OR resulting in some hematuriawhich has resolved. Vital Signs at Discharge: Weight: Wt Readings from Last 1 Encounters: 12/11/ 113.399 kg (250 lb) Height: Ht Readings [...] Rate: [59-72] Blood Pressure BP: 136/69 mmHg @giqublm86@ Respiratory Rate Resp: 19 Resp: [16-20] SpO2 SpO2: 97 % @chexkqtd53@ Art BP BP (Arterial Line): -- Functional [...] and alert. Mobilizing with walker, pain controlled on oral medications. Discharge to: Home with VNA Updated [...] with extension you can place a pillow underyour heel or lower leg or placed lengthwise [...] Coumadin today. Take this medication at the same time each day - usually 5pm. 2. Your coumadin level or INR target range is 2-3 and this will need to be checked by the Visiting Nurse on the day after discharge and at least twice per week thereafter (usually every Wednesday and ). The INR should be reported to the [facility] Ortho clinic at [phone], and you will be informed of any needed changes in your Coumadin dose. 3. If your INR level is ever above 3.5 you should not participate in aggressive Physical therapy exercises - you can mobilize/ambulate. This will decrease the possibility of more bleeding into your joint. Once your INR is less than 3.5 you can resume Physical therapy. One of the Orthopedic nurses will call you with further instructions as needed. 4. You will be on Coumadin for 4 weeks. On January 08, STOP the Coumadin and begin Aspirin 325mg twice a day until you are seen in followup with your orthopedic surgeon. Take aspirin with food. Diet: Resume usual diet, but increase your intake of fluids and fiber while you are on narcotic pain meds to prevent constipation Driving: DO NOT DRIVE [...] You should also take the stool softener that was ordered, sennakot, to factilitate a bowel movement. An slbc-amj-hdylycj medication, miralax can also be used if needed to combat constipation 2. If you need a renewal on your narcotic pain medication, you need to give the Orthopedic clinic enough time to process your request. This can take up to three days, so plan accordingly. 3. You have been discharged on a short acting narcotic. You will be on this medication for a limited period of time only. Taper off these medications [...] 21, you may take tylenol as needed to help control the pain. DO NOT EXCEED 3000 MG Tylenol in a 24 hour period. Shower: 1. You can shower but remember your activity limitations and always have a chair available for balance and protection. DO NOT submerge the dressing/incision. 2. Do not let water run over the operative dressing. If it becomes wet lightly pat the dressing dry. When this operative dressing is removed you can [...] Do not pull the dressing back to look at the incision unless there is a problem. It will not re adhere to your skin. 3. If you have lots of drainage when you get home (and it is before December 18), remove this operative dressing and replace it with dry sterile gauze. Continue with daily dressing changes (and as needed) until the drainage stops, then remove the dressing and leave the incision open to air or lightly covered. FOLLOWUP APPOINTMENTS: 1. You will have followup appointments at [facility] as indicated in Future Appointments and Orders. You will have an xray prior to those appointments [...] AM Juan Jose Del Rosario MD Orthopaedics [phone] None Joint Appt Health Question [facility] Orthopaedics [phone] None Future Orders Please Complete By Expires Referral to Home Health [[id number] CPT(R)] Process Instructions: Scheduling Instructions: Comments: DISCHARGE [...] nurse practitioner, clinical nurse specialist or physician's trading assistant who is working directly with them, had a face to face encounter that meets the physician face to face encounter requirements with this patient on 12/12/2013 The encounter with the patient was in whole, or in part, for the following medical condition, whichis the primary reason for home health care services: [ RTKA ] In discussion with the primary medical team, it is certified that, based on their findings, the indicated services are medically necessary and appropriate for home health services. HOME HEALTH AGENCY: [facility]. PHONE: [phone] FAX: [phone] Home care orders for [employer] for PT: Detention(SN) eval if indicated on admission visit 1. Draw PT/INR as follows: ( Point of care testing is acceptable) Week of discharge: PER MD/SHINGLE INSPECTOR/PA ORDERS. Draw INR on WednesdayDecember 15 and call to ortho anticoagulation clinic for dosing. Thereafter, PT/INR: every Wednesday and PT/INR results to be called and faxed as follows: Wed-Wed Ortho anticoagulation (Coumadin) clinic @ [facility]: ; Sat/Sun: if the PT/INR is drawn on the weekend, call the results to the Orthopedic Resident on callat [phone] for Coumadin dosing 2.Do not lift the edge of the mepilex dressing to observe the incision; this dressing needs to stayin place until 7 days (December 18) after surgery. 3. Suture or Staple removal in 10-14 days (December 25) - PER MD/PARKS AND RECREATION MANAGER/PA ORDERS 4. Continue PT rehab for balance, endurance, joint mobility, ROM, Strength, TKA protocol FOR MEDICARE ONLY: (please delete this section if not Medicare) In discussion with the attending physician, it is certified that the clinical findings support thatthis patient is homebound ;i.e. absences from home require considerable and taxing effort due to: recent surgery on R LE requires restricted motion and strength. Please note that any additional orders needs or changes will need to be obtained from this patient's PCP: CANDACE AVERY APRN [address] [place] [address] All A agencies which cover the area of patient's residence have been reviewed, either verbally earl writing, and patient/family have chosen the indicated home health care agency for home services. Questions: Responses: Agency name and contact information [facility] Patient location post discharge home What services are requested Registered Nurse Physical Therapy Start date Responsible MD post discharge contact info PCO Primary Care Provider: CANDACE AVERY APRN [phone] * Plan of Care - Jonathan Graves RN [...] 2 hours. RN will monitor patients skin. * Initial Assessments - Sheree Ricks, PT - [...] by Juan Jose Del Rosario MD at [facility] Social History: Patient lives with his and cares for his 4 yo grandson a significant amount. 5steps to enter and 1 flight to only [...] Ambulated using FWW And 1 assist to ns desk and back. Limited by dyspnea. Rn informed. Pt requesting inhaler Gait pattern: Step-to gait, cautiously Pt. to utilize FWW and 1 assist to ambulate with nursing staff. Today???s Treatment: 1. Evaluation 2. Performed 10 reps each ankle pumps, quad sets, short arc quads, seated heel slides, and long arcquads. Pt in possession of handout illustrating the exercises and was instructed to perform them asable 3x per day. Informed Consent: The patient [...] maximize functional independence. Pt may benefit from shortrehab stay to increase his mobility, independence and [...] 0 minutes adalbertoal SHEREE RICKS, PT Pager: [phone] * Plan of Care - Jonathan Graves RN [...] 2 hours. RN will monitor patients skin. * Miscellaneous - Provider, Scanning - 12/11/2013 3:45 PM EDT * Miscellaneous - Provider, Scanning - 12/11/2013 3:45 PM EDT * OR Attestation - Juan Jose Del Rosario MD - 12/11/2013 12:51 PM EDT Attestation: Case Date: 12/11/2013 I performed this procedure without the involvement of a resident. JUAN JOSE DEL ROSARIO MD 12/11/2013 * Op Note - Juan Jose Del Rosario MD - 12/11/2013 12:44 PM EDT [facility] Operative Note Patient Name: Lisa Romo : [id number] MR#: [id number] Case Date: 12/11/2013 Surgeon: Surgeon(s) and Role: * Juan Jose Del Rosario MD - Primary * Pb Schroeder PA - Physician Fork Lift Mechanic Preoperative diagnosis: RIGHT TKA Postoperative diagnosis: RIGHT [...] Implant Name Type Inv. Item Serial No. Pumper Gager Lot No. LRB No. Used Action COMPO,SGM,FEM,PS,CMNT,LUG,R,4 ([id number]) (AUTOREQ) - [id number] IMPLANTS COMPO,SGM,FEM,PS,CMNT,LUG,R,4 ([id number]) (AUTOREQ) [id number] Right 1 Implanted TRAY,TIB,SGM,MOD,CMNT,SZ4 ([id number]) (AUTOREQ) - [id number] IMPLANTS TRAY,TIB,SGM,MOD,CMNT,SZ4 ([id number]) (AUTOREQ) [id number] Right 1 Implanted JEFFERSON,PFC,SGM,OVL,3PG,STD,38MM ([id number]) (AUTOREQ) - [id number] IMPLANTS JEFFERSON,PFC,SGM,OVL,3PG,STD,38MM ([id number]) (AUTOREQ) [id number] Right 1 Implanted CEMENT,BNE,CMW 1,GNTA,40GM ([id number]) - [id number] IMPLANTS CEMENT,BNE,CMW 1,GNTA,40GM ([id number]) [id number] Right 1 Implanted INSER,SGM,STAB,CRSLNK,4X10MM ([id number]) (AUTOREQ) - [id number] IMPLANTS INSER,SGM,STAB,CRSLNK,4X10MM ([id number]) (AUTOREQ) [employer] - [facility] [id number] Right 1 Implanted COMPLICATIONS: None. INDICATIONS:The patient [...] Using a #10 blade, a midline skin incisionwas then carried out. Dissection was carried down [...] during this release. The knee was then carefullyflexed up. Careful attention was paid to the tibial tubercle to be sure that there was no violationof the patellar tendon insertion as we flexed. The anterior and posterior cruciate ligaments were then released as well as the anterior horn of the lateral meniscus. TIBIAL PREPARATION: The tibia was subluxated forward using a blunt Hohmann and attention was turnedto tibial cut. The extramedullary tibial alignment guide was placed and set for a 4 mm resection off the medial compartment and 12 off the lateral side. The alignment audelia was set in the center of theankle joint. Appropriate posterior slope was then set. The guide was then pinned into position. Proximal tibial resection was undertaken using an oscillating saw. Care was taken to protect the medialand lateral collateral ligaments during the cut. The [...] set for 5 degrees of valgus angle. The distal femoral cut guide was then placed and set for 10 mm resection depth because of his flexion contracture. This was then pinned into position. The cut depth was checked with an marika wing. Theoscillating saw was then used to perform the distal femoral cut. The posterior referencing sizing guide was then placed and pins were set in 3 degrees of external rotation from the posterior condylaraxis in line with the transepicondylar axis. The [...] then performed. Flexion and extension blocks were then used to check the flexion and extension gaps [...] and the final preparation of the tibia wasundertaken. The tibia was exposed and the trial placed. It was pinned into position taking care to maintain the appropriate external rotation and adequate tibial coverage. This was then completed using the step drill and broach. All bony surfaces were then thoroughly irrigated using normal saline pulsatile lavage. The components were opened onto the field except for the final polyethylene. Cement mixing was begun on the backtable using vacuum technique. We then placed cement onto the tibial plateau and digitally pressurized it into the bone. We then placed the tibial component and impacted into position using an impactor and mallet. Excess cement was removed with a Rochelle. We then placed the cement onto the anterior and distal aspects of the femur. The cement was placed on the posterior aspect of the prosthetic condyles. The femoral component was then placed and impacted into position. Excess cement was removed with a Rochelle. The polyethylene was then placed and the knee brought out to full extension where it was held for the entire polymerization time. Cement was then pressurized into the patellar bone and the patellar component placed. The patella was clamped. Excess cement was removed with a Rochelle. After all cement had hardened, the knee was flexed up and [...] inserted and the knee brought out to full extension. It was taken through a full range of motion and had excellent stability to varus and valgus testing in both flexion and extension. The final alignment was excellent. The patella trackedwell without liftoff using the no thumbs technique. The [...] cleansed, dried, and dressing consisting of Mepilex silver.This was then secured with Cornelio bandages. The patient was awakened by the anesthesiology staff and transferred to the [facility]. Sequential compression devices were placed. The patient was takento the postanesthesia care unit in stable condition. [...] AM EDT Hospital Encounter [place] [id number] Arrived documented as of this encounter Procedures Procedure Name Priority Date/Time Associated Diagnosis Comments IMPLANTABLE DEVICES SCAN 12/15/2013 11:49 AM EDT POCT GLUCOSE Routine 12/14/2013 11:35 AM EDT POCT GLUCOSE Routine 12/14/2013 7:12 AM EDT POCT GLUCOSE Routine 12/14/2013 4:37 AM EDT NUCLEATED RED BLOOD CELLS Routine 12/14/2013 4:00 AM EDT HEMOGRAM Routine 12/14/2013 4:00 AM EDT DIFFERENTIAL, AUTOMATED Routine 12/14/2013 4:00 AM EDT PROTHROMBIN TIME Routine 12/14/2013 4:00 AM EDT CBC (WITH DIFF) Routine 12/14/2013 4:00 AM EDT BASIC METABOLIC PANEL (NON-FASTING) Routine 12/14/2013 4:00 AM EDT POCT GLUCOSE Routine 12/13/2013 11:59 PM EDT POCT GLUCOSE Routine 12/13/2013 8:23 PM EDT POCT GLUCOSE Routine 12/13/2013 5:08 PM EDT POCT GLUCOSE Routine 12/13/2013 11:54 AM EDT POCT GLUCOSE Routine 12/13/2013 7:51 AM EDT POCT GLUCOSE Routine 12/13/2013 3:47 AM EDT HEMOGRAM Routine 12/13/2013 3:25 AM EDT DIFFERENTIAL, AUTOMATED Routine 12/13/2013 3:25 AM EDT PROTHROMBIN TIME Routine 12/13/2013 3:25 AM EDT CBC (WITH DIFF) Routine 12/13/2013 3:25 AM EDT BASIC METABOLIC PANEL (NON-FASTING) Routine 12/13/2013 3:25 AM EDT POCT GLUCOSE Routine 12/13/2013 12:01 AM EDT POCT GLUCOSE Routine 12/12/2013 8:11 PM EDT POCT GLUCOSE Routine 12/12/2013 6:47 PM EDT POCT GLUCOSE Routine 12/12/2013 4:44 PM EDT POCT GLUCOSE Routine 12/12/2013 11:49 AM EDT POCT GLUCOSE Routine 12/12/2013 7:14 AM EDT HEMOGRAM Routine 12/12/2013 4:20 AM EDT DIFFERENTIAL, AUTOMATED Routine 12/12/2013 4:20 AM EDT PROTHROMBIN TIME Routine 12/12/2013 4:20 AM EDT CBC (WITH DIFF) Routine 12/12/2013 4:20 AM EDT HEMOGLOBIN A1C Routine 12/12/2013 4:20 AM EDT BASIC METABOLIC PANEL (NON-FASTING) Routine 12/12/2013 4:20 AM EDT POCT GLUCOSE Routine 12/12/2013 3:58 AM EDT POCT GLUCOSE Routine 12/12/2013 12:19 AM EDT POCT GLUCOSE Routine 12/11/2013 8:02 PM EDT POCT GLUCOSE Routine 12/11/2013 4:43 PM EDT SURGICAL PATHOLOGY REPORT Routine 12/11/2013 1:03 PM EDT POCT GLUCOSE Routine 12/11/2013 1:02 PM EDT SPECIMEN TO PATHOLOGY Routine 12/11/2013 11:25 AM EDT MODIFIER PFC STABILIZED FIXED MODULAR DEPUY 12/11/2013 10:36 AM EDT RIGHT TKA TOTAL KNEE ARTHROPLASTY (WRVU 19.6) 12/11/2013 10:36 AM EDT RIGHT TKA POCT GLUCOSE Routine 12/11/2013 8:46 AM EDT documented in this encounter Results * SCAN DOC: IMPLANTABLE DEVICES (12/15/2013 11:49 AM EDT) Narrative 12/15/2013 11:49 AM EDT Procedure Note Provider, Scanning - 12/15/2013 11:49 AM EDT Scanning Provider MEDIA MGR SCAN EXT O RDR/RSLT * POCT Glucose (12/14/2013 11:35 AM EDT) POC Glucose 127 60 - 199 mg/dL [facility] Comment: Supplemental ranges: <110 mg/dL before meals <200 mg/dL all other times of the day Blood specimen (specimen) 12/14/2013 11:35 AM EDT 12/14/2013 11:35 AM EDT Juan Jose Del Rosario MD POINT OF CARE TEST O MIKE Performing Organization Address [facility] Co de Phone Number [facility] * POCT Glucose (12/14/2013 7:12 AM EDT) POC Glucose 156 60 - 199 mg/dL [facility] Comment: Supplemental ranges: <110 mg/dL before meals <200 mg/dL all other times of the day Blood specimen (specimen) 12/14/2013 7:12 AM EDT 12/14/2013 7:12 AM EDT Juan Jose Del Rosario MD POINT OF CARE TEST O RDERATRAN Performing Organization Address [facility]/State/ZIP Co de Phone Number [facility] * POCT Glucose (12/14/2013 4:37 AM EDT) [facility] POC Glucose 144 60 - 199 mg/dL C[facility]ER MILLENNIUM Comment: Supplemental ranges: <110 mg/dL before meals <200 mg/dL all other times of the day Blood specimen (specimen) 12/14/2013 4:37 AM EDT 12/14/2013 4:37 AM EDT Juan Jose Del Rosario MD POINT OF CARE TEST O RDERABLES Performing Organization Address [facility]/ZIP Co de Phone Number [facility] * Nucleated Red Blood Cells (12/14/2013 4:00 AM EDT) [facility] nRBC % Auto 0.0 0.0 - 0.2 % [facility]NI[facility] nRBC Abs Auto 0.000 0.000 - 0.012 x10(3)/mcL [facility] MILLENNIUM Blood specimen (specimen) 12/14/2013 4:00 AM EDT 12/14/2013 4:35 AM EDT Narrative Resulting Agency Comment Spec In Lab Juan Jose Del Rosario MD HEMATOLOGY ORDERABLE S Performing Organization Address [facility] Co de Phone Number [facility] * (ABNORMAL) Differential, Automated (12/14/2013 4:00 AM EDT) [facility] Neutrophils % 74.9(H) 34.0 - 71.0 % CERNER MILLENNIUM Neutr Abs (ANC) 6.86(H) 1.50 - 6.30 x10(3)/mc L [facility]ERN[facility] MILLENNIUM Lymphocytes % 10.9(L) 19.0 - 53.0 % [facility]ERN[facility] MILLENNIUM Lymphocytes Abs 1.0 1.0 - 3.6 x10(3)/mc L [facility] MILLENNIUM Monocytes % 13.7(H) 4.0 - 13.0 % [facility]ERN[facility] MILLENNIUM Monocyte Abs 1.3(H) 0.2 - 1.0 x10(3)/mc L [facility] MILLENNIUM Eosinophils % 0.3 0.0 - 7.0 % [facility]ERNER MILLENNIUM Eosinophils Abs 0.0 0.0 - 0.5 x10(3)/mc L [facility]ERN[facility] MILLENNIUM Basophils % 0.1 0.0 - 2.0 % CERNER MILLENNIUM Basophils Abs 0.0 0.0 - 0.2 x10(3)/mc L [facility] MILLENNI[facility] Immature Gran % 0.10 0.00 - 0.66 % [facility] Comment: Immature granulocytes(IG's)percentage and absolute count will include metamyelocytes, myelocytes, and promyelocytes. Blood smears from CBCs yielding IG's will be scanned manually for concordance. If this scan disagrees with the automated IG or if promyelocytes are noted, a manual differential will be performed. Carolin Gran Abs 0.01 0.00 - 0.05 x10(3)/mc L [facility]ILLENNIUM Blood specimen (specimen) 12/14/2013 4:00 AM EDT 12/14/2013 4:35 AM EDT Narrative Resulting Agency Comment Spec In Lab Juan Jose Del Rosario MD HEMATOLOGY ORDERABLE S [facility] * (ABNORMAL) Hemogram (12/14/2013 4:00 AM EDT) WBC 9.2 4.0 - 10.0 x10(3)/mcL [facility] MILLENNIUM RBC 3.68(L) 4.63 - 6.08 x10(6)/mcL [facility] MILLENNIUM Hemoglobin 11.3(L) 13.7 - 17.5 gm/dL [facility] MILLENNIUM Hematocrit 33.5(L) 40.0 - 51.0 % CERNER MILLENNIUM MCV 91.0 79.0 - 92.0 fL CERNER MILLENNIUM MCH 30.7 25.6 - 32.2 pg CERNER MILLENNIUM MCHC 33.7 32.0 - 36.5 gm/dL [facility]ERN[facility] MILLENNIUM Platelets 152 145 - 370 x10(3)/mcL CERNER MILLENNIUM RDWSD 46.6(H) 35.0 - 46.0 fL CERNER MILLENNIUM RDWCV 13.9 10.9 - 14.4 % CERNER MILLENNIUM MPV 11.3 9.0 - 12.0 fL [facility]ERN[facility] MILLENNIUM Blood specimen (specimen) 12/14/2013 4:00 AM EDT 12/14/2013 4:35 AM EDT Narrative Resulting Agency Comment Spec In Lab Juan Jose Del Rosario MD HEMATOLOGY ORDERABLE S Performing Organization Address [facility] Co de Phone Number [facility] * (ABNORMAL) Prothrombin Time (12/14/2013 4:00 AM EDT) PT 17.2(H) 12.0 - 15.0 sec CERNER MILLENNIUM Comment: [facility] Transfusion Committee Guidelines: INR less than 2.0, PTT less than OR equal to 43.5 seconds, or Fibrinogen greater than or equal to 100 mg/dl indicate adequate procoagulant activity for hemostasis in patients without underlying bleeding disorders. INR 1.4(H) 0.9 - 1.1 CERNER MILLENNIUM Blood specimen (specimen) 12/14/2013 4:00 AM EDT 12/14/2013 4:35 AM EDT Narrative Resulting Agency Comment Spec In Lab Juan Jose Del Rosario MD HEMATOLOGY ORDERABLE S Performing Organization Address [facility] Co de Phone Number [facility] CA[facility]S * (ABNORMAL) Basic Metabolic Panel (non-fasting) (12/14/2013 4:00 AM EDT) Glucose Lvl 151 60 - 199 mg/dL CERNER MILLENNIUM Comment:Diabetes: >=200 mg/d L plus symptoms BUN 13 10 - 20 mg/dL CERNER MILLENNIUM Creatinine 1.04 0.80 - 1.50 mg/dL [facility]ERN[facility] MILLENNIUM Comment: Please note that the pediatric reference intervals supplied above were not validated [place] [facility] Results from pediatric patients should be interpreted in conjunction to the patient's age, height and muscle mass. Sodium 138 135 - 145 mmol/L CERNER MILLENNIUM Potassium 3.4(L) 3.5 - 5.0 mmol/L [facility]ERN[facility] MILLENNIUM Comment: Please note: ??Patients with WBC >100,000 may have falsely elevated Potassium levels. ??For accurate Potassium quantification in these patients send serum separator tube (gold top) for subsequent determinations. ??Contact the Clinical Chemistry Laboratory if there are any questions. Chloride 97(L) 98 - 107 mmol/L CERNER MILLENNIUM CO2 25 22 - 31 mmol/L [facility]ERN[facility] MILLENNIUM Anion Gap 16(H) 5 - 15 mmol/L [facility]ERN[facility] MILLENNIUM Calcium 9.0 8.5 - 10.5 mg/dL [facility]ERN[facility] MILLENNIUM Estimated GFR >60 >=60 [facility]ERNER MILLENNIUM Comment: This estimated GFR (eGFR) value was calculated using the MDRD equation which has been validated on patients between the ages of 18 and 70. The MDRD should not be used to assess kidney function in patients < 18 years of age or in patients with extremes of body mass, or in patients with acute kidney failure. This value should be multiplied by 1.2 for patients. For further information please copy and paste the following links into your internet browser. http://www.nkdep.nih.gov/lab-evaluation.shtml http://www.kidney.org/professionals/ Blood specimen (specimen) 12/14/2013 4:00 AM EDT 12/14/2013 4:35 AM EDT Narrative Resulting Agency Comment Spec In Lab Juan Jose Del Rosario MD CHEMISTRY ORDERABLES Performing Organization Address [facility] de Phone Number [facility] * POCT Glucose (12/13/2013 11:59 PM EDT) POC Glucose 133 60 - 199 mg/dL [facility] Comment: Supplemental ranges: <110 mg/dL before meals <200 mg/dL all other times of the day Blood specimen (specimen) 12/13/2013 11:59 PM EDT 12/13/2013 11:59 PM EDT Juan Jose Del Rosario MD POINT OF CARE TEST O RDERABLES Performing Organization Address [facility] Co de Phone Number [facility] * POCT Glucose (12/13/2013 8:23 PM EDT) POC Glucose 125 60 - 199 mg/dL [facility] Comment: Supplemental ranges: <110 mg/dL before meals <200 mg/dL all other times of the day Blood specimen (specimen) 12/13/2013 8:23 PM EDT 12/13/2013 8:23 PM EDT Juan Jose Del Rosario MD POINT OF CARE TEST O MIKE Performing Organization Address [facility] Co de Phone Number [facility] * POCT Glucose (12/13/2013 5:08 PM EDT) POC Glucose 150 60 - 199 mg/dL [facility] Comment: Supplemental ranges: <110 mg/dL before meals <200 mg/dL all other times of the day Blood specimen (specimen) 12/13/2013 5:08 PM EDT 12/13/2013 5:08 PM EDT Juan Jose Del Rosario MD POINT OF CARE TEST O RDERATRAN Performing Organization Address [facility] de Phone Number [facility] * POCT Glucose (12/13/2013 11:54 AM EDT) POC Glucose 135 60 - 199 mg/dL [facility] Comment: Supplemental ranges: <110 mg/dL before meals <200 mg/dL all other times of the day Blood specimen (specimen) 12/13/2013 11:54 AM EDT 12/13/2013 11:54 AM EDT Juan Jose Del Rosario MD POINT OF CARE TEST O MÓNICAERATRAN Performing Organization Address [facility] de Phone Number [facility] * POCT Glucose (12/13/2013 7:51 AM EDT) POC Glucose 168 60 - 199 mg/dL [facility] Comment: Supplemental ranges: <110 mg/dL before meals <200 mg/dL all other times of the day Blood specimen (specimen) 12/13/2013 7:51 AM EDT 12/13/2013 7:51 AM EDT Juan Jose Del Rosario MD POINT OF CARE TEST O RDERABLES [facility] * POCT Glucose (12/13/2013 3:47 AM EDT) POC Glucose 144 60 - 199 mg/dL [facility] MILLENNIUM Comment: Supplemental ranges: <110 mg/dL before meals <200 mg/dL all other times of the day Blood specimen (specimen) 12/13/2013 3:47 AM EDT 12/13/2013 3:47 AM EDT Juan Jose Del Rosario MD POINT OF CARE TEST O RDERABLES [facility] CA[facility]S * (ABNORMAL) Differential, Automated (12/13/2013 3:25 AM EDT) Neutrophils % 70.2 34.0 - 71.0 % [facility]ERN[facility] MILLENNIUM Neutr Abs (ANC) 6.80(H) 1.50 - 6.30 x10(3)/mc L CERNER MILLENNIUM Lymphocytes % 14.9(L) 19.0 - 53.0 % CERNER MILLENNIUM Lymphocytes Abs 1.4 1.0 - 3.6 x10(3)/mc L [facility]ERN[facility] MILLENNIUM Monocytes % 14.3(H) 4.0 - 13.0 % CERNER MILLENNIUM Monocyte Abs 1.4(H) 0.2 - 1.0 x10(3)/mc L [facility]ERN[facility] MILLENNIUM Eosinophils % 0.1 0.0 - 7.0 % CERNER MILLENNIUM Eosinophils Abs 0.0 0.0 - 0.5 x10(3)/mc L [facility]ERN[facility] MILLENNIUM Basophils % 0.2 0.0 - 2.0 % CERNER MILLENNIUM Basophils Abs 0.0 0.0 - 0.2 x10(3)/mc L [facility]ERNER MILLENNIUM Immature Gran % 0.30 0.00 - 0.66 % CERNER MILLENNIUM Comment: Immature granulocytes(IG's)percentage and absolute count will include metamyelocytes, myelocytes, and promyelocytes. Blood smears from CBCs yielding IG's will be scanned manually for concordance. If this scan disagrees with the automated IG or if promyelocytes are noted, a manual differential will be performed. Carolin Gran Abs 0.03 0.00 - 0.05 x10(3)/mc L [facility]ERN[facility] MILLENNIUM Blood specimen (specimen) 12/13/2013 3:25 AM EDT 12/13/2013 4:01 AM EDT Narrative Resulting Agency Comment Spec In Lab Juan Jose Del Rosario MD HEMATOLOGY ORDERABLE S Performing Organization Address City/[facility] Co de Phone Number [facility]ERN[facility] MILLENNIUM * (ABNORMAL) Hemogram (12/13/2013 3:25 AM EDT) WBC 9.7 4.0 - 10.0 x10(3)/mcL CERNER MILLENNIUM RBC 3.80(L) 4.63 - 6.08 x10(6)/mcL CERNER MILLENNIUM Hemoglobin 11.6(L) 13.7 - 17.5 gm/dL [facility]ERN[facility] MILLENNIUM Hematocrit 34.6(L) 40.0 - 51.0 % CERNER MILLENNIUM MCV 91.1 79.0 - 92.0 fL CERNER MILLENNIUM MCH 30.5 25.6 - 32.2 pg CERNER MILLENNIUM MCHC 33.5 32.0 - 36.5 gm/dL CERNER MILLENNIUM Platelets 141(L) 145 - 370 x10(3)/mcL CERNER MILLENNIUM RDWSD 45.8 35.0 - 46.0 fL CERNER MILLENNIUM RDWCV 13.8 10.9 - 14.4 % CERNER MILLENNIUM MPV 11.5 9.0 - 12.0 fL CERNER MILLENNIUM Blood specimen (specimen) 12/13/2013 3:25 AM EDT 12/13/2013 4:01 AM EDT Narrative Resulting Agency Comment Spec In Lab Juan Jose Del Rosario MD HEMATOLOGY ORDERABLE S Performing Organization Address [facility] Co de Phone Number CERNER MILLENNIUM * (ABNORMAL) Prothrombin Time (12/13/2013 3:25 AM EDT) PT 16.1(H) 12.0 - 15.0 sec CERNER MILLENNIUM Comment: [facility] Transfusion Committee Guidelines: INR less than 2.0, PTT less than OR equal to 43.5 seconds, or Fibrinogen greater than or equal to 100 mg/dl indicate adequate procoagulant activity for hemostasis in patients without underlying bleeding disorders. INR 1.2(H) 0.9 - 1.1 CERNER MILLENNIUM Blood specimen (specimen) 12/13/2013 3:25 AM EDT 12/13/2013 4:01 AM EDT Narrative Resulting Agency Comment Spec In Lab Juan Jose Del Rosario MD HEMATOLOGY ORDERABLE S CERNER MILLENNIUM * Basic Metabolic Panel (non-fasting) (12/13/2013 3:25 AM EDT) Glucose Lvl 134 60 - 199 mg/dL CERNER MILLENNIUM Comment:Diabetes: >=200 mg/d L plus symptoms BUN 13 10 - 20 mg/dL CERNER MILLENNIUM Creatinine 1.01 0.80 - 1.50 mg/dL CERNER MILLENNIUM Comment: Please note that the pediatric reference intervals supplied above were not validated [place] [facility] Results from pediatric patients should be interpreted in conjunction to the patient's age, height and muscle mass. Sodium 138 135 - 145 mmol/L CERNER MILLENNIUM Potassium 3.7 3.5 - 5.0 mmol/L [facility]ERN[facility] MILLENNIUM Comment: Please note: ??Patients with WBC >100,000 may have falsely elevated Potassium levels. ??For accurate Potassium quantification in these patients send serum separator tube (gold top) for subsequent determinations. ??Contact the Clinical Chemistry Laboratory if there are any questions. Chloride 100 98 - 107 mmol/L CERNER MILLENNIUM CO2 26 22 - 31 mmol/L CERNER MILLENNIUM Anion Gap 12 5 - 15 mmol/L CERNER MILLENNIUM Calcium 8.9 8.5 - 10.5 mg/dL CERNER MILLENNIUM Estimated GFR >60 >=60 CERNER MILLENNIUM Comment: This estimated GFR (eGFR) value was calculated using the MDRD equation which has been validated on patients between the ages of 18 and 70. The MDRD should not be used to assess kidney function in patients < 18 years of age or in patients with extremes of body mass, or in patients with acute kidney failure. This value should be multiplied by 1.2 for patients. For further information please copy and paste the following links into your internet browser. http://www.nkdep.nih.gov/lab-evaluation.shtml http://www.kidney.org/professionals/ Blood specimen (specimen) 12/13/2013 3:25 AM EDT 12/13/2013 4:01 AM EDT Narrative Resulting Agency Comment Spec In Lab Juan Jose Del Rosario MD CHEMISTRY ORDERABLES Performing Organization Address [facility] de Phone Number [facility] [employer] * POCT Glucose (12/13/2013 12:01 AM EDT) POC Glucose 147 60 - 199 mg/dL [facility] Comment: Supplemental ranges: <110 mg/dL before meals <200 mg/dL all other times of the day Blood specimen (specimen) 12/13/2013 12:01 AM EDT 12/13/2013 12:01 AM EDT Juan Jose Del Rosario MD POINT OF CARE TEST O RDERABLES Performing Organization Address [facility] de Phone Number [facility] [employer] * POCT Glucose (12/12/2013 8:11 PM EDT) POC Glucose 172 60 - 199 mg/dL [facility] [employer] Comment: Supplemental ranges: <110 mg/dL before meals <200 mg/dL all other times of the day Blood specimen (specimen) 12/12/2013 8:11 PM EDT 12/12/2013 8:11 PM EDT Juan Jose Del Rosario MD POINT OF CARE TEST O RDERABLES Performing Organization Address [facility] Phone Number [facility] [employer] * (ABNORMAL) POCT Glucose (12/12/2013 6:47 PM EDT) POC Glucose 234(H) 60 - 199 mg/dL [facility] [employer] Comment: Supplemental ranges: <110 mg/dL before meals <200 mg/dL all other times of the day Blood specimen (specimen) 12/12/2013 6:47 PM EDT 12/12/2013 6:47 PM EDT Juan Jose Del Rosario MD POINT OF CARE TEST O MIKE Performing Organization Address [facility] de Phone Number [facility] * (ABNORMAL) POCT Glucose (12/12/2013 4:44 PM EDT) POC Glucose 255(H) 60 - 199 mg/dL [facility] Comment: Supplemental ranges: <110 mg/dL before meals <200 mg/dL all other times of the day Blood specimen (specimen) 12/12/2013 4:44 PM EDT 12/12/2013 4:44 PM EDT Juan Jose Del Rosario MD POINT OF CARE TEST O MIKE Performing Organization Address [facility] de Phone Number [facility] * POCT Glucose (12/12/2013 11:49 AM EDT) POC Glucose 167 60 - 199 mg/dL [facility] Comment: Supplemental ranges: <110 mg/dL before meals <200 mg/dL all other times of the day Blood specimen (specimen) 12/12/2013 11:49 AM EDT 12/12/2013 11:49 AM EDT Juan Jose Del Rosario MD POINT OF CARE TEST O MIKE Performing Organization Address [facility] de Phone Number [facility] * POCT Glucose (12/12/2013 7:14 AM EDT) POC Glucose 146 60 - 199 mg/dL [facility] Comment: Supplemental ranges: <110 mg/dL before meals <200 mg/dL all other times of the day Blood specimen (specimen) 12/12/2013 7:14 AM EDT 12/12/2013 7:14 AM EDT Juan Jose Del Rosario MD POINT OF CARE TEST O RDERABLES [facility] * (ABNORMAL) Differential, Automated (12/12/2013 4:20 AM EDT) Neutrophils % 72.9(H) 34.0 - 71.0 % CERNER MILLENNIUM Neutr Abs (ANC) 6.60(H) 1.50 - 6.30 x10(3)/mc L CERNER MILLENNIUM Lymphocytes % 13.5(L) 19.0 - 53.0 % CERNER MILLENNIUM Lymphocytes Abs 1.2 1.0 - 3.6 x10(3)/mc L CERNER MILLENNIUM Monocytes % 13.0 4.0 - 13.0 % CERNER MILLENNIUM Monocyte Abs 1.2(H) 0.2 - 1.0 x10(3)/mc L CERNER MILLENNIUM Eosinophils % 0.2 0.0 - 7.0 % CERNER MILLENNIUM Eosinophils Abs 0.0 0.0 - 0.5 x10(3)/mc L CERNER MILLENNIUM Basophils % 0.2 0.0 - 2.0 % CERNER MILLENNIUM Basophils Abs 0.0 0.0 - 0.2 x10(3)/mc L CERNER MILLENNIUM Immature Gran % 0.20 0.00 - 0.66 % CERNER MILLENNIUM Comment: Immature granulocytes(IG's)percentage and absolute count will include metamyelocytes, myelocytes, and promyelocytes. Blood smears from CBCs yielding IG's will be scanned manually for concordance. If this scan disagrees with the automated IG or if promyelocytes are noted, a manual differential will be performed. Carolin Gran Abs 0.02 0.00 - 0.05 x10(3)/mc L CERNER MILLENNIUM Blood specimen (specimen) 12/12/2013 4:20 AM EDT 12/12/2013 4:43 AM EDT Narrative Resulting Agency Comment Spec In Lab Juan Jose Del Rosario MD HEMATOLOGY ORDERABLE S [facility] * (ABNORMAL) Hemogram (12/12/2013 4:20 AM EDT) WBC 9.1 4.0 - 10.0 x10(3)/mcL CERNER MILLENNIUM RBC 4.01(L) 4.63 - 6.08 x10(6)/mcL CERNER MILLENNIUM Hemoglobin 12.3(L) 13.7 - 17.5 gm/dL CERNER MILLENNIUM Hematocrit 36.0(L) 40.0 - 51.0 % CERNER MILLENNIUM MCV 89.8 79.0 - 92.0 fL CERNER MILLENNIUM MCH 30.7 25.6 - 32.2 pg CERNER MILLENNIUM MCHC 34.2 32.0 - 36.5 gm/dL CERNER MILLENNIUM Platelets 156 145 - 370 x10(3)/mcL CERNER MILLENNIUM RDWSD 44.7 35.0 - 46.0 fL CERNER MILLENNIUM RDWCV 13.6 10.9 - 14.4 % CERNER MILLENNIUM MPV 10.6 9.0 - 12.0 fL CERNER MILLENNIUM Blood specimen (specimen) 12/12/2013 4:20 AM EDT 12/12/2013 4:43 AM EDT Narrative Resulting Agency Comment Spec In Lab Juan Jose Del Rosario MD HEMATOLOGY ORDERABLE S [facility] * Prothrombin Time (12/12/2013 4:20 AM EDT) PT 14.4 12.0 - 15.0 sec CERNER MILLENNIUM Comment: [facility] Transfusion Committee Guidelines: INR less than 2.0, PTT less than OR equal to 43.5 seconds, or Fibrinogen greater than or equal to 100 mg/dl indicate adequate procoagulant activity for hemostasis in patients without underlying bleeding disorders. INR 1.1 0.9 - 1.1 CERNER MILLENNIUM Blood specimen (specimen) 12/12/2013 4:20 AM EDT 12/12/2013 4:43 AM EDT Narrative Resulting Agency Comment Spec In Lab Juan Jose Del Rosario MD HEMATOLOGY ORDERABLE S [facility] * (ABNORMAL) Hemoglobin A1c (12/12/2013 4:20 AM EDT) Hemoglobin A1C 7.0(H) <=5.6 % ABI CANAS Comment: As of 2013 the methodology for [...] 1, [id number] Est Avg Gluc 154 mg/dL [facility] Comment: eAG equivalents for HbA1c percentages: [...] the ADA website: ??http://professional.diabetes.org/glucosecalculator.aspx Minh LU, Josse Sosa, Brien R, et al. ??Translating the A1C assay into estimated average glucose values. ??Diabetes Care 2008:31(8):0987-5819. Blood specimen (specimen) 12/12/2013 4:20 AM EDT 12/12/2013 4:43 AM EDT Narrative Resulting Agency Comment Spec In Lab Juan Jose Del Rosario MD CHEMISTRY ORDERABLES CERNER MILLENNIUM * Basic Metabolic Panel (non-fasting) (12/12/2013 4:20 AM EDT) Glucose Lvl 163 60 - 199 mg/dL CERNER MILLENNIUM Comment:Diabetes: >=200 mg/d L plus symptoms BUN 16 10 - 20 mg/dL CERNER MILLENNIUM Creatinine 0.97 0.80 - 1.50 mg/dL CERNER MILLENNIUM Comment: Please note that the pediatric reference intervals supplied above were not validated [place] [facility] [place] Results from pediatric patients should be interpreted in conjunction to the patient's age, height and muscle mass. Sodium 136 135 - 145 mmol/L CERNER MILLENNIUM Potassium 4.2 3.5 - 5.0 mmol/L CERNER MILLENNIUM Comment: Please note: ??Patients with WBC >100,000 may have falsely elevated Potassium levels. ??For accurate Potassium quantification in these patients send serum separator tube (gold top) for subsequent determinations. ??Contact the Clinical Chemistry Laboratory if there are any questions. Chloride 98 98 - 107 mmol/L CERNER MILLENNIUM CO2 25 22 - 31 mmol/L CERNER MILLENNIUM Anion Gap 13 5 - 15 mmol/L CERNER MILLENNIUM Calcium 8.9 8.5 - 10.5 mg/dL CERNER MILLENNIUM Estimated GFR >60 >=60 CERNER MILLENNIUM Comment: This estimated GFR (eGFR) value was calculated using the MDRD equation which has been validated on patients between the ages of 18 and 70. The MDRD should not be used to assess kidney function in patients < 18 years of age or in patients with extremes of body mass, or in patients with acute kidney failure. This value should be multiplied by 1.2 for patients. For further information please copy and paste the following links into your internet browser. http://www.nkdep.nih.gov/lab-evaluation.shtml http://www.kidney.org/professionals/ Blood specimen (specimen) 12/12/2013 4:20 AM EDT 12/12/2013 4:43 AM EDT Narrative Resulting Agency Comment Spec In Lab Juan Jose Del Rosario MD CHEMISTRY ORDERABLES Performing Organization Address [facility] de Phone Number VELASQUEZ BEDOYAIUM * POCT Glucose (12/12/2013 3:58 AM EDT) POC Glucose 172 60 - 199 mg/dL [email or web address] Comment: Supplemental ranges: <110 mg/dL before meals <200 mg/dL all other times of the day Blood specimen (specimen) 12/12/2013 3:58 AM EDT 12/12/2013 3:58 AM EDT Juan Jose Del Rosario MD POINT OF CARE TEST O RDERABLES Performing Organization Address [facility] de Phone Number [facility] * POCT Glucose (12/12/2013 12:19 AM EDT) POC Glucose 131 60 - 199 mg/dL [email or web address] Comment: Supplemental ranges: <110 mg/dL before meals <200 mg/dL all other times of the day Blood specimen (specimen) 12/12/2013 12:19 AM EDT 12/12/2013 12:19 AM EDT Juan Jose Del Rosario MD POINT OF CARE TEST O RDERATRAN Performing Organization Address [facility] de Phone Number VELASQUEZ BEDOYAIUM * (ABNORMAL) POCT Glucose (12/11/2013 8:02 PM EDT) POC Glucose 238(H) 60 - 199 mg/dL [email or web address] Comment: Supplemental ranges: <110 mg/dL before meals <200 mg/dL all other times of the day Blood specimen (specimen) 12/11/2013 8:02 PM EDT 12/11/2013 8:02 PM EDT Juan Jose Del Rosario MD POINT OF CARE TEST O MIKE Performing Organization Address [facility]/ZIP Co de Phone Number [facility] * POCT Glucose (12/11/2013 4:43 PM EDT) POC Glucose 135 60 - 199 mg/dL [facility] Comment: Supplemental ranges: <110 mg/dL before meals <200 mg/dL all other times of the day Blood specimen (specimen) 12/11/2013 4:43 PM EDT 12/11/2013 4:43 PM EDT Juan Jose Del Rosario MD POINT OF CARE TEST O MIKE Performing Organization Address [facility] Co de Phone Number [facility] * Surgical Pathology Report (12/11/2013 1:03 PM EDT) Surgical Pathology Report ? [facility] ? Provider: ?? JUAN JOSE DEL ROSARIO ?? Pt. Name: ?? LISA ROMO ? Acc #: ?[id number] ?Pt. ? Col Date: ?? 12/11/2013 ?/Sex: ?[id number],(68 years),Male ? Rec Date: ?? 12/11/2013 ?LOC: ?[id number] ? SURGICAL PATHOLOGY ? ---Pathologic Diagnosis--- ? A - Articular bone and soft tissue consistent with osteoarthritis, right ? knee. ?Gross surgical pathology examination. ? CR-0 ? 12/11/13 ? PPS ? 06/02/14 Verified by: ? Black DO, Yary C. ? Pathologist ? (Electronic Signature) ? The attending pathologist whose signature appears on this report has ? reviewed all diagnostic slides and has edited the gross and/or ? microscopic portion of the report in rendering the final pathologic ? diagnosis. ? ---Gross Description--- ? A - Labeled/Fixativ e: Bone and tissue right knee, fresh. ? Quantity/Size: Multiple, 10.5 x 7.8 x 3.4 cm in aggregate. ? Tissue Description: Fragments of yellow-white, hard, irregular bone, ? cartilage and soft tissue. ? Articular Surface: Granular manning-pink. ? Eburnation: Present. ? Osteophytes: Present. ? Sections/Proces sing: No sections are submitted. ??pps ? ---Clinical Information--- ? Specimen Submitted: ? A - Bone and tissue rt knee ? Clinical History: ? DJD right knee ? Clinical Diagnosis: ? DJD right knee [facility] 12/11/2013 1:03 PM EDT Juan Jose Del Rosario MD PATHOLOGY/CYTOLOGY O RDERABLES [facility] * POCT Glucose (12/11/2013 1:02 PM EDT) POC Glucose 105 60 - 199 mg/dL [facility] Comment: Supplemental ranges: <110 mg/dL before meals <200 mg/dL all other times of the day Blood specimen (specimen) 12/11/2013 1:02 PM EDT 12/11/2013 1:02 PM EDT Juan Jose Del Rosario MD POINT OF CARE TEST O MIKE VELASQUEZ CANAS * Specimen to Pathology (surgical or derm) (12/11/2013 11:25 AM EDT) AP Specimen 12/11/2013 11:2 5 AM EDT 12/11/2013 11:25 AM EDT Narrative VELASQUEZ EVELYNENOHEMIMARIELA - 12/11/2013 11:25 AM EDT Specimen requisition ordered. ??Separate Pathology report to follow Juan Jose Del Rosario MD PATHOLOGY/CYTOLOGY O MIKE [facility] * POCT Glucose (12/11/2013 8:46 AM EDT) POC Glucose 143 60 - 199 mg/dL [facility] Comment: Supplemental ranges: <110 mg/dL before meals <200 mg/dL all other times of the day Blood specimen (specimen) 12/11/2013 8:46 AM EDT 12/11/2013 8:46 AM EDT Juan Jose Del Rosario MD POINT OF CARE TEST O MIKE Performing Organization Address [facility] Co de Phone Number VELASQUEZ CANAS documented in this encounter Visit Diagnoses Diagnosis 12/11/2013 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 Osteoarthritis of knee Osteoarthrosis, unspecified whether generalized or localized, lower leg documented in this encounter Administered Medications Inactive Administered Medications - up to 3 most recent administrations Medication Order MAR Action Action Date Dose Rate Site acetaminophen (TYLENOL) tablet 1,000 mg 1,000 mg, Oral, ONCE, 1 dose, On 12/10/13 at 1445, Maximum dose of acetaminophen is 4000 mg from all sources in 24 hours., Routine Given 12/11/2013 9:00 AM EDT 1,000 mg acetaminophen (TYLENOL) tablet 1,000 mg 1,000 mg, Oral, EVERY 8 HOURS SCHEDULED, First dose on 12/11/13 at 1630, Until Discontinued, Maximum dose of acetaminophen is 4000 mg from all sources in 24 hours., Routine Given 12/14/2013 1:32 PM EDT 1,000 mg Given 12/14/2013 5:49 AM EDT 1,000 mg Given 12/13/2013 10:12 PM EDT 1,000 mg albuterol (PROVENTIL HFA;VENTOLIN HFA) 90 mcg/actuation inhaler 2 puff 2 puff, Inhalation, EVERY 4 HOURS PRN, Starting on Wed12/11/13 at 1539, Until Wed12/14/13 at 1626, Wheezing, Routine Given 12/14/2013 4:55 AM EDT 2 puffs Given 12/12/2013 10:50 AM EDT 2 puffs amLODIPine (NORVASC) tablet 2.5 mg 2.5 mg, Oral, DAILY, First dose on Wed12/11/13 at 1800, Until Discontinued, Routine Given 12/14/2013 8:39 AM EDT 2.5 mg Given 12/13/2013 8:30 AM EDT 2.5 mg Given 12/12/2013 8:24 AM EDT 2.5 mg atorvastatin (LIPITOR) tablet 80 mg 80 mg, Oral, DAILY, First dose on Wed12/11/13 at 1700, Until Discontinued, Routine Given 12/14/2013 8:39 AM EDT 80 mg Given 12/13/2013 8:31 AM EDT 80 mg Given 12/12/2013 8:24 AM EDT 80 mg buPROPion (WELLBUTRIN SR) SR tablet 150 mg 150 mg, Oral, 2 TIMES DAILY, First dose on Wed12/11/13 at 2100, Until Discontinued, Routine Given 12/14/2013 8:39 AM EDT 150 mg Given 12/13/2013 10:12 PM EDT 150 mg Given 12/13/2013 8:31 AM EDT 150 mg ceFAZolin (ANCEF) 1g in dextrose 5% 50mL 1,000 mg (1 g), Intravenous, EVERY 8 HOURS, 3 doses, First dose on Wed12/11/13 at 1330, Last dose on Wed12/12/13 at 0530, Administer over 30 Minutes, For 3 doses postoperatively. Adjust to 8 hours from intraoperative dose., Recovery (Recovery-Hospital Unit), Indication for (Active or Suspected): Prophylaxis New Bag 12/12/2013 10:50 AM EDT 1,000 mg 100 mL/hr New Bag 12/12/2013 2:58 AM EDT 1,000 mg 100 mL/hr New Bag 12/11/2013 6:25 PM EDT 1,000 mg 100 mL/hr enoxaparin (LOVENOX) injection 40 mg 40 mg, Subcutaneous, ONCE, 1 dose, On Wed12/13/13 at 1300, Routine Given 12/13/2013 1:37 PM EDT 40 mg enoxaparin (LOVENOX) injection 40 mg 40 mg, Subcutaneous, ONCE, 1 dose, On Wed12/14/13 at 0900, Routine Given 12/14/2013 9:22 AM EDT 40 mg esomeprazole (NEXIUM) capsule 40 mg 40 mg, Oral, DAILY, First dose on Wed12/11/13 at 1800, Until Discontinued, Routine Given 12/14/2013 8:39 AM EDT 40 mg Given 12/13/2013 8:31 AM EDT 40 mg Given 12/12/2013 8:26 AM EDT 40 mg ferrous sulfate EC tablet 325 mg 325 mg, Oral, 2 TIMES DAILY, First dose on Wed12/11/13 at 2100, Until Discontinued, Take with food or a glass of water, Routine Given 12/14/2013 8:39 AM EDT 325 m g Given 12/13/2013 10:11 PM EDT 325 mg Given 12/13/2013 8:32 AM EDT 325 mg furosemide (LASIX) tablet 80 mg 80 mg, Oral, 2 TIMES DAILY, First dose on Wed12/12/13 at 0900, Until Discontinued, Routine Given 12/14/2013 8:40 AM EDT 80 mg Given 12/13/2013 10:19 PM EDT 80 mg Given 12/13/2013 8:35 AM EDT 80 mg gabapentin (NEURONTIN) capsule 600 mg 600 mg, Oral, ONCE, 1 dose, On Wed12/10/13 at 1445, Routine Given 12/11/2013 9:00 AM EDT 600 mg HYDROmorphone (DILAUDID) 1 mg/mL TAX COLLECTOR 30 mL Intravenous, TAX COLLECTOR ONLY, Starting on Wed12/11/13 at 1330, Until Wed12/12/13 at 0724, Recovery (Recovery-Hospital Unit) New Syringe/Cartridge 12/11/2013 1:21 PM EDT 30 mg insulin aspart (novoLOG) VIAL injection 1-4 Units 1-4 Units, Subcutaneous, EVERY 4 HOURS [...] insulin and resume prior schedule. Given 12/14/2013 7:30 AM EDT 1 Units Given 12/14/2013 4:50 AM EDT 1 Units Given 12/13/2013 5:32 PM EDT 1 Units lactated ringers infusion 1,000 mL 1,000 mL, at 100 mL/hr, Intravenous, CONTINUOUS, Starting on Wed12/11/13 at 1330, Until Wed12/14/13 at 1626, Recovery (Recovery-Hospital Unit) New Bag 12/11/2013 11:49 PM EDT 1,000 mLs 100 mL/hr New Bag 12/11/2013 1:25 PM EDT 1,000 mLs 100 mL/hr lactated ringers infusion 500 mL 500 mL, at 1,000 mL/hr, Intravenous, CONTINUOUS, Starting on Wed12/13/13 at 2000, Until Wed12/14/13 at 1626 New Bag 12/13/2013 8:02 PM EDT 500 mLs 1000 mL/hr losartan (COZAAR) tablet 100 mg 100 mg, Oral, DAILY, First dose on Wed12/11/13 at 1800, Until Discontinued, Routine Given 12/14/2013 8:40 AM EDT 100 mg Given 12/13/2013 8:33 AM EDT 100 mg Given 12/12/2013 8:25 AM EDT 100 mg metFORMIN (GLUCOPHAGE) tablet 1,000 mg 1,000 mg, Oral, 2 TIMES DAILY WITH MEALS, First dose on Wed12/11/13 at 1700, Until Discontinued, Routine Given 12/14/2013 7:30 AM EDT 1,000 mg Given 12/13/2013 5:33 PM EDT 1,000 mg Given 12/13/2013 8:33 AM EDT 1,000 mg metoprolol tartrate (LOPRESSOR) tablet 50 mg 50 mg, Oral, EVERY 12 HOURS SCHEDULED (2 times per day), First dose on Wed12/11/13 at 2100, Until Discontinued, Routine Given 12/14/2013 8:40 AM EDT 50 mg Given 12/13/2013 10:20 PM EDT 50 mg Given 12/13/2013 8:32 AM EDT 50 mg midazolam (PF) (VERSED) 1 mg/mL injection 0.5-3 mg 0.5-3 mg, Intravenous, EVERY 5 MIN PRN, 1 dose, Starting on Wed12/10/13 at 1427, Until Wed12/11/13 at 0910, block sedation, Please discontinue when pt leaves the block area., Routine Given 12/11/2013 9:10 AM EDT 1 mg Given 12/11/2013 9:07 AM EDT 1 mg multivitamin Qyym-Ka-VW-Min (THERAPEUTIC-M) 27-0.4 mg tablet 1 tablet 1 tablet, Oral, DAILY, First dose on Wed12/11/13 at 1800, Until Discontinued Given 12/14/2013 8:40 AM EDT 1 tablet Given 12/13/2013 8:34 AM EDT 1 tablet Given 12/12/2013 8:25 AM EDT 1 tablet oxyCODONE (ROXICODONE) immediate release tablet 10 mg 10 mg, Oral, EVERY 4 HOURS PRN, Starting on Wed12/11/13 at 1302, Until Lacey 12/14/13 at 1626, Pain, moderate pain, For Moderate pain. Do not exceed 15 mg in 4 hours. If pain not relieved, call provider., Routine Given 12/13/2013 5:33 PM EDT 10 mg Given 12/13/2013 1:16 PM EDT 10 mg Given 12/13/2013 8:36 AM EDT 10 mg oxyCODONE (ROXICODONE) immediate release tablet 15 mg 15 mg, Oral, EVERY 4 HOURS PRN, Starting on Wed12/11/13 at 1302, Until Lacey 12/14/13 at 1626, Pain, severe pain, For severe pain. Do not exceed 15 mg in 4 hours. If pain not relieved, call provider., Routine Given 12/12/2013 9:22 PM EDT 15 mg Given 12/12/2013 2:46 PM EDT 15 mg oxyCODONE (ROXICODONE) immediate release tablet 5 mg 5 mg, Oral, EVERY 4 HOURS PRN, Starting on Wed12/11/13 at 1302, Until Wed12/14/13 at 1626, Pain, mild pain, For Mild pain. Do not exceed 15 mg in 4 hours. If pain not relieved, call provider, Routine Given 12/14/2013 1:32 PM EDT 5 mg Given 12/14/2013 9:22 AM EDT 5 mg Given 12/14/2013 2:42 AM EDT 5 mg penicillin v potassium (VEETID) tablet 500 mg 500 mg, Oral, 2 TIMES DAILY, First dose on Wed12/11/13 at 2100, Until Discontinued, Routine, Indication for (Active or Suspected): Other (See comment) Given 12/14/2013 8:40 AM EDT 500 mg Given 12/13/2013 10:20 PM EDT 500 mg Given 12/13/2013 8:34 AM EDT 500 mg polyethylene glycol (MIRALAX) packet 17 g 17 g, Oral, 2 TIMES DAILY, First dose on Wed12/11/13 at 2100, Until Discontinued, Administer if needed per patient's routine or if no bowel movement within 48 hours, Routine Given 12/14/2013 8:40 AM EDT 17 g Given 12/13/2013 8:30 AM EDT 17 g Given 12/12/2013 8:41 PM EDT 17 g potassium chloride (K-DUR/KLOR-CON) extended release tablet 20 mEq 20 mEq, Oral, 2 TIMES DAILY, First dose on Wed12/11/13 at 2100, Until Discontinued, 20 mEq tablet may be dissolved in water for administration, Routine Given 12/14/2013 8:40 AM EDT 20 mEq Given 12/13/2013 10:13 PM EDT 20 mEq Given 12/13/2013 8:35 AM EDT 20 mEq potassium chloride (K-DUR/KLOR-CON) extended release tablet 40 mEq 40 mEq, Oral, ONCE, 1 dose, On Wed12/14/13 at 1200, 20 mEq tablet may be dissolved in water for administration, Routine Given 12/14/2013 12:23 PM EDT 40 mEq senna-docusate (PERICOLACE) 8.6-50 mg per tablet 1-4 tablet 1-4 tablet, Oral, 2 TIMES DAILY, First dose on Wed12/11/13 at 2100, Until Discontinued, Start with 1 tablet or liquid equivalent orally twice daily and titrate up to achieve: 1. One bowel movement at least every 48 hours, AND 2. Without straining, Routine Given 12/14/2013 8:40 AM EDT 2 tablets Given 12/13/2013 10:13 PM EDT 1 tablet Given 12/13/2013 8:33 AM EDT 2 tablets sodium chloride 0.9 % flush 5 mL 5 mL, Intravenous, EVERY 12 HOURS, First dose on Wed12/11/13 at 0930, Until Discontinued, Day of Surgery (Day of Procedure), Routine Given 12/11/2013 1:25 PM EDT 5 mLs sodium chloride 0.9 % flush 5 mL 5 mL, Intravenous, 2 TIMES DAILY, First dose on Wed12/11/13 at 2100, Until Discontinued, Recovery (Recovery-Hospital Unit), Routine Given 12/14/2013 8:40 AM EDT 5 mLs Given 12/13/2013 10:14 PM EDT 5 mLs Given 12/13/2013 8:35 AM EDT 5 mLs warfarin (COUMADIN) tablet 5 mg 5 mg, Oral, ONCE, 1 dose, On Wed12/11/13 at 1700, Routine Given 12/11/2013 5:00 PM EDT 5 mg warfarin (COUMADIN) tablet 5 mg 5 mg, Oral, ONCE, 1 dose, On Wed12/12/13 at 1700, Routine Given 12/12/2013 4:51 PM EDT 5 mg warfarin (COUMADIN) tablet 7.5 mg 7.5 mg, Oral, ONCE, 1 dose, On Wed12/13/13 at 1700, Routine Given 12/13/2013 5:33 PM EDT 7.5 mg documented in this encounter Active and Recently Administered Medications Times are shown in EDT. Scheduled Medication Order 12/12/2013 12/13/2013 12/14/2013 acetaminophen (TYLENOL) tablet 1,000 mg 1,000 mg, Oral, EVERY 8 HOURS SCHEDULED, First dose on Wed12/11/13 at 1630, Until Discontinued, Maximum dose of acetaminophen is 4000 mg from all sources in 24 hours., Routine 0507 (Given - Provider: Jonathan Graves RN)1446 (Given - Provider: Isela Ogden RN)2122 (Given - Provider: Jonathan Graves RN) 0504 (Given - Provider: Jonathan Graves RN)1336 (Given - Provider: Jenni Burden, MARY)2212 (Given - Provider: Layne Logan, MARY) 0549 (Given - Provider: Layne Logan RN)1332 (Given - Provider: Apoorva Easley, MARY) amLODIPine (NORVASC) tablet 2.5 mg (CANCELED) 2.5 mg, Oral, DAILY, First dose on Wed12/11/13 at 1800, Until Discontinued, Routine 0824 (Given - Provider: Isela Ogden RN) 0830 (Given - Provider: Jenni Burden, MARY) 0839 (Given - Provider: Apoorva Easley RN) atorvastatin (LIPITOR) tablet 80 mg (CANCELED) 80 mg, Oral, DAILY, First dose on Wed12/11/13 at 1700, Until Discontinued, Routine 0824 (Given - Provider: Isela Ogden RN) 0831 (Given - Provider: Jenni Burden RN) 0839 (Given - Provider: Apoorva Easley RN) buPROPion (WELLBUTRIN SR) SR tablet 150 mg (CANCELED) 150 mg, Oral, 2 TIMES DAILY, First dose on Wed12/11/13 at 2100, Until Discontinued, Routine 0825 (Given - Provider: Isela Ogden RN)2043 (Given - Provider: Jonathan Garves RN) 0831 (Given - Provider: Jenni Burden, MARY)2212 (Given - Provider: Layne Logan RN) 0839 (Given - Provider: Apoorva Easley RN) ceFAZolin (ANCEF) 1g in dextrose 5% 50mL (COMPLETED) 1,000 mg (1 g), Intravenous, EVERY 8 HOURS, 3 doses, First dose on Wed12/11/13 at 1330, Last dose on Wed12/12/13 at 0530, Administer over 30 Minutes, For 3 doses postoperatively. Adjust to 8 hours from intraoperative dose., Recovery (Recovery-Hospital Unit), Indication for (Active or Suspected): Prophylaxis 0258 (New Bag - Provider: Jonathan Graves RN)1050 (New Bag - Provider: Isela Ogden RN) enoxaparin (LOVENOX) injection 40 mg (COMPLETED) 40 mg, Subcutaneous, ONCE, 1 dose, On Wed12/13/13 at 1300, Routine 1337 (Given - Provider: Jenni Burden, MARY) enoxaparin (LOVENOX) injection 40 mg (COMPLETED) 40 mg, Subcutaneous, ONCE, 1 dose, On Wed12/14/13 at 0900, Routine 0922 (Given - Provider: Apoorva Easley, MARY) esomeprazole (NEXIUM) capsule 40 mg (CANCELED) 40 mg, Oral, DAILY, First dose on Wed12/11/13 at 1800, Until Discontinued, Routine 08 (Given - Provider: Isela Ogden RN) 0831 (Given - Provider: Jenni Burden, MARY) 0839 (Given - Provider: Apoorva Easley RN) ferrous sulfate EC tablet 325 mg (CANCELED) 325 mg, Oral, 2 TIMES DAILY, First dose on Wed12/11/13 at 2100, Until Discontinued, Take with food or a glass of water, Routine 08 (Given - Provider: Isela Ogden RN)2042 (Given - Provider: Jonathan Graves, MARY) 0832 (Given - Provider: Jenni Burden, MARY)221 (Given - Provider: Layne Logan, MARY) 0839 (Given - Provider: Apoorva Easley, MARY) furosemide (LASIX) tablet 80 mg (CANCELED) 80 mg, Oral, 2 TIMES DAILY, First dose on Wed12/12/13 at 0900, Until Discontinued, Routine 08 (Given - Provider: Isela Ogden RN)2042 (Given - Provider: Jonathan Graves, MARY) 0835 (Given - Provider: Jenni Burden, MARY)221 (Given - Provider: Layne Logan, MARY) 0840 (Given - Provider: Apoorva Easley, MARY) insulin aspart (novoLOG) VIAL injection 1-4 Units (CANCELED) 1-4 Units, Subcutaneous, EVERY 4 HOURS SCHEDULED, [...] give no insulin and resume prior schedule. 0000 (Not Given - Provider: Jonathan Graves RN - Reason: Order parameters not met)0420 (Given - Provider: Jonathan Graves RN)0828 (Given - Provider: Isela Ogden RN)1212 (Given - Provider: Isela Ogden RN)1651 (Given - Provider: Isela Ogden RN)2044 (Given - Provider: Jonathan Gravse RN) 0015 (Given - Provider: Jonathan Graves RN)0400 (Not Given - Provider: Jonathan Graves RN - Reason: Patient/family refused)0838 (Given - Provider: Jenni Burden RN)1200 (Not Given - Provider: Jenni Burden RN - Reason: Order parameters not met)1732 (Given - Provider: Jenni Burden RN)2000 (Not Given - Provider: Layne Logan RN - Reason: Order parameters not met) 0000 (Not Given - Provider: Layne Logan RN - Reason: Order parameters not met)0450 (Given - Provider: Layne Logan RN)0730 (Given - Provider: Layne Logan RN)1139 (Not Given - Provider: Apoorva Easley RN - Reason: Order parameters not met) losartan (COZAAR) tablet 100 mg (CANCELED) 100 mg, Oral, DAILY, First dose on Wed12/11/13 at 1800, Until Discontinued, Routine 0825 (Given - Provider: Isela Ogden RN) 0833 (Given - Provider: Jenni Burden RN) 0840 (Given - Provider: Apoorva Easley RN) metFORMIN (GLUCOPHAGE) tablet 1,000 mg (CANCELED) 1,000 mg, Oral, 2 TIMES DAILY WITH MEALS, First dose on Wed12/11/13 at 1700, Until Discontinued, Routine 0825 (Given - Provider: Isela Ogden RN)1651 (Given - Provider: Iesla Ogden RN) 0833 (Given - Provider: Jenni Burden, MARY)1733 (Given - Provider: Jenni Burden RN) 0730 (Given - Provider: Layne Logan, MARY) metoprolol tartrate (LOPRESSOR) tablet 50 mg (CANCELED) 50 mg, Oral, EVERY 12 HOURS SCHEDULED (2 times per day), First dose on Wed12/11/13 at 2100, Until Discontinued, Routine 0900 (Not Given - Provider: Isela Ogden RN - Reason: See comment - Comment: HR 60 bpm)2043 (Given - Provider: Jonathan Graves, MARY) 0832 (Given - Provider: Jenni Burden RN)2219 (Given - Provider: Layne Logan RN) 0840 (Given - Provider: Apoorva Easley, MARY) multivitamin Gaws-Tk-HU-Min (THERAPEUTIC-M) 27-0.4 mg tablet 1 tablet (CANCELED) 1 tablet, Oral, DAILY, First dose on Wed12/11/13 at 1800, Until Discontinued 08 (Given - Provider: Isela Ogden RN) 0834 (Given - Provider: Jenni Burden RN) 0840 (Given - Provider: Apoorva Easley RN) penicillin v potassium (VEETID) tablet 500 mg (CANCELED) 500 mg, Oral, 2 TIMES DAILY, First dose on Wed12/11/13 at 2100, Until Discontinued, Routine, Indication for (Active or Suspected): Other (See comment) 08 (Given - Provider: Isela Ogden RN)2041 (Given - Provider: Jonathan Graves RN) 0834 (Given - Provider: Jenni Burden, MARY)222 (Given - Provider: Layne Logan, MARY) 0840 (Given - Provider: Apoorva Easley RN) polyethylene glycol (MIRALAX) packet 17 g 17 g, Oral, 2 TIMES DAILY, First dose on Wed12/11/13 at 2100, Until Discontinued, Administer if needed per patient's routine or if no bowel movement within 48 hours, Routine 0828 (Given - Provider: Isela Ogden RN)2040 (Given - Provider: Jonathan Graves RN) 08 (Given - Provider: Jenni Burden, MARY)221 (Not Given - Provider: Layne Logan, MARY - Reason: Patient/family refused) 0840 (Given - Provider: Apoorva Easley RN) potassium chloride (K-DUR/KLOR-CON) extended release tablet 20 mEq (CANCELED) 20 mEq, Oral, 2 TIMES DAILY, First dose on Wed12/11/13 at 2100, Until Discontinued, 20 mEq tablet may be dissolved in water for administration, Routine 0825 (Given - Provider: Isela Ogden RN)2041 (Given - Provider: Jonathan Graves RN) 08 (Given - Provider: Jenni Burden, MARY)2212 (Given - Provider: Layne Logan RN) 0840 (Given - Provider: Apoorva Easley RN) potassium chloride (K-DUR/KLOR-CON) extended release tablet 40 mEq (COMPLETED) 40 mEq, Oral, ONCE, 1 dose, On Wed12/14/13 at 1200, 20 mEq tablet may be dissolved in water for administration, Routine 1223 (Given - Provider: Apoorva Easley RN) senna-docusate (PERICOLACE) 8.6-50 mg per tablet 1-4 tablet 1-4 tablet, Oral, 2 TIMES DAILY, First dose on Wed12/11/13 at 2100, Until Discontinued, Start with 1 tablet or liquid equivalent orally twice daily and titrate up to achieve: 1. One bowel movement at least every 48 hours, AND 2. Without straining, Routine 0824 (Given - Provider: Isela Ogden RN)2041 (Given - Provider: Jonathan Graves RN) 0833 (Given - Provider: Jenni Burden, MARY)221 (Given - Provider: Layne Logan, MARY) 0840 (Given - Provider: Apoorva Easley RN) sodium chloride 0.9 % flush 5 mL (CANCELED) 5 mL, Intravenous, 2 TIMES DAILY, First dose on Wed12/11/13 at 2100, Until Discontinued, Recovery (Recovery-Hospital Unit), Routine 0828 (Given - Provider: Isela Ogden RN)2044 (Given - Provider: Jonathan Graves RN) 0835 (Given - Provider: Jenni Burden, MARY)2214 (Given - Provider: Layne Logan, MARY) 0840 (Given - Provider: Apoorva Easley RN) warfarin (COUMADIN) tablet 5 mg (COMPLETED) 5 mg, Oral, ONCE, 1 dose, On Wed12/12/13 at 1700, Routine 1651 (Given - Provider: Isela Ogden, RN) warfarin (COUMADIN) tablet 7.5 mg (COMPLETED) 7.5 mg, Oral, ONCE, 1 dose, On Wed12/13/13 at 1700, Routine 1733 (Given - Provider: Jenni Burden, MARY) warfarin (COUMADIN) tablet 7.5 mg 7.5 mg, Oral, ONCE, 1 dose, On Wed12/14/13 at 1700, Routine Continuous Medication Order 12/12/2013 12/13/2013 12/14/2013 lactated ringers infusion 500 mL (CANCELED) 500 mL, at 1,000 mL/hr, Intravenous, CONTINUOUS, Starting on Wed12/13/13 at 2000, Until Wed12/14/13 at 1626 2001 (New Bag - Provider: Layne Logan RN)2200 (Stopped - Provider: Layne Logan, MARY) PRN Medication Order 12/12/2013 12/13/2013 12/14/2013 albuterol (PROVENTIL HFA;VENTOLIN HFA) 90 mcg/actuation inhaler 2 puff (CANCELED) 2 puff, Inhalation, EVERY 4 HOURS PRN, Starting on Wed12/11/13 at 1539, Until Wed12/14/13 at 1626, Wheezing, Routine 1050 (Given - Provider: Isela Ogden, RN) 0455 (Given - Provider: Layne Logan, MARY) bisacodyl (DULCOLAX) suppository 10 mg 10 mg, Rectal, DAILY PRN, Starting on Wed12/11/13 at 1539, Until Wed12/14/13 at 1626, Constipation, Administer if needed per patient's routine or if no bowel movement within 48 hours, Routine oxyCODONE (ROXICODONE) immediate release tablet 10 mg (CANCELED)(Linked Group 1) 10 mg, Oral, EVERY 4 HOURS PRN, Starting on Wed12/11/13 at 1302, Until Lacey 12/14/13 at 1626, Pain, moderate pain, For Moderate pain. Do not exceed 15 mg in 4 hours. If pain not relieved, call provider., Routine 0420 (Given - Provider: Jonathan Graves RN)0920 (Given - Provider: Isela Ogden RN)1446 (See Alternative - Provider: Isela Ogden RN)212 (See Alternative - Provider: Jonathan Graves RN) 0836 (Given - Provider: Jenni Burden, MARY)1316 (Given - Provider: Jenni Burden, MARY)1733 (Given - Provider: Jenni Burden, MARY)2219 (See Alternative - Provider: Layne Logan, MARY) 0242 (See Alternative - Provider: Layne Logan RN)0922 (See Alternative - Provider: Apoorva Easley RN)1332 (See Alternative - Provider: Apoorva Easley RN) oxyCODONE (ROXICODONE) immediate release tablet 15 mg (CANCELED)(Linked Group 1) 15 mg, Oral, EVERY 4 HOURS PRN, Starting on 12/11/13 at 1302, Until Lacey 12/14/13 at 1626, Pain, severe pain, For severe pain. Do not exceed 15 mg in 4 hours. If pain not relieved, call provider., Routine 0420 (See Alternative - Provider: Jonathan Graves RN)0920 (See Alternative - Provider: Isela Ogden RN)1446 (Given - Provider: Isela Ogden RN)2121 (Given - Provider: Jonathan Graves RN) 0836 (See Alternative - Provider: Jenni Burden, MARY)1316 (See Alternative - Provider: Jenni Burden, MARY)1733 (See Alternative - Provider: Jenni Burden, MARY)2219 (See Alternative - Provider: Layne Logan RN) 0242 (See Alternative - Provider: Layne Logan RN)0922 (See Alternative - Provider: Apoorva Easley RN)1332 (See Alternative - Provider: Apoorva Easley RN) oxyCODONE (ROXICODONE) immediate release tablet 5 mg(Linked Group 1) 5 mg, Oral, EVERY 4 HOURS PRN, Starting on 12/11/13 at 1302, Until Lacey 6 at 1626, Pain, mild pain, For Mild pain. Do not exceed 15 mg in 4 hours. If pain not relieved, call provider, Routine 0420 (See Alternative - Provider: Jonathan Graves, RN)0920 (See Alternative - Provider: Isela Ogden, RN)1446 (See Alternative - Provider: Isela Ogden, RN)2122 (See Alternative - Provider: Jonathan Graves, RN) 0836 (See Alternative - Provider: Jenni Burden, RN)1316 (See Alternative - Provider: Jenni Burden, RN)1733 (See Alternative - Provider: Jenni Burden, RN)2219 (Given - Provider: Layne Logan, MARY) 0242 (Given - Provider: Layne Logan, RN)0922 (Given - Provider: Apoorva Easley, MARY)1332 (Given - Provider: Apoorva Easley, MARY) Linked Groups Order Group 1: oxyCODONE (ROXICODONE) immediate release tablet 5 mgJump to med 5 mg, Oral, EVERY 4 HOURS PRN, Starting on Wed12/11/13 at 1302, Until Lacey 6 at 1626, Pain, mild pain, For Mild pain. Do not exceed 15 mg in 4 hours. If pain not relieved, call provider, Routine Or oxyCODONE (ROXICODONE) immediate release tablet 10 mg (CANCELED)Jump to med 10 mg, Oral, EVERY 4 HOURS PRN, Starting on 12/11/13 at 1302, Until Lacey 6 at 1626, Pain, moderate pain, For Moderate pain. Do not exceed 15 mg in 4 hours. If pain not relieved, call provider., Routine Or oxyCODONE (ROXICODONE) immediate release tablet 15 mg (CANCELED)Jump to med 15 mg, Oral, EVERY 4 HOURS PRN, Starting on 12/11/13 at 1302, Until Lacey 6 at 1626, Pain, severe pain, For severe pain. Do not exceed 15 mg in 4 hours. If pain not relieved, call provider., Routine documented in this encounter Care Teams Authorization Nurse Relationship Specialty Start Date End Date Candace Avery APRN [facility] [address] [place] [address] PCP - General 04/03/11 01/17/15 documented as of this encounter
--- OUTSIDE RECORDS SUMMARY | 2024-01-24 15:55 | XMS_ITS | Encounter Summary ---
Author Organization [facility] Address [facility] [place] [address] Care Team Providers Care Vp Talent Management Name Role Phone Candace Avery APRN Primary Care Provider [phone]- [phone] Encounter Details Date Type Department Care Team (Latest Contact Info) Description 08/10/2013 1:51 PM EST - 08/10/2013 11:59 PM [facility] Hospital Encounter XRay at [address] [place] [address] Osteoarthritis of right knee; History of total knee arthroplasty, left; Knee joint replacement by other means Social [...] 4 hours as needed. Use with spacer amlodipine (NORVASC) 10 mg tablet Take 2.5 [...] AM EDT Hospital Encounter [place] [address] Arrived documented as of this encounter Procedures Procedure Name Priority Date/Time Associated Diagnosis Comments XR KNEE AP AND LAT BILAT Routine 08/10/2013 2:07 PM EST Osteoarthritis of right knee History of total knee arthroplasty, left Knee joint replacement by other means documented in this encounter Results * XR knee bilateral 1 or 2 view (08/10/2013 2:07 PM EST) Anatomical Region Laterality Modality Knee Bilateral Radiographic Amparo ging 08/10/2013 2:07 PM EST Narrative 08/12/2013 9:16 AM EST Examination KNEE BILATERAL 1 OR 2 VIEWS/BILAT, 08/10/2013 ?? Clinical History L TKA R KNEE DJD Comparison AP standing view of both knees and lateral views of the right knee, 08/04/2012; AP standing and lateral radiographs of the bilateral knees, 05/14/2011. Technique AP standing and lateral radiographs of the bilateral knees. Findings Left total knee arthroplasty is unchanged in position, no dislocation, periprosthetic fracture, or interval periprosthetic radiolucencies identified. ?? No significant left knee effusion. ??Unchanged small broad-based ossification/calcification just superior to the femoral prosthesis anteriorly best seen on the lateral view. Right knee is unchanged compared to the prior July 2012 radiographs, with unchanged tricompartmental osteoarthritis characterized by joint space narrowing, subchondral sclerosis, and small osteophytes, joint space narrowing most severe involving the medial compartment. ??Lateral and medial compartment chondrocalcinosis is again noted. ??Persistent right knee effusion, not significantly changed. Impression 1. ??Unchanged appearance of left total knee arthroplasty. 2. ??Stable right knee osteoarthritis, most advanced in the medial compartment, and chondrocalcinosis. Procedure Note Paris Peacock MD - 08/12/2013 Examination KNEE BILATERAL 1 OR 2 VIEWS/BILAT, 08/10/2013 Clinical History L TKA R KNEE DJD Comparison AP standing view of both knees and lateral views of the right knee,08/04/2012; AP standing and lateral radiographs of the bilateral knees, 05/14/2011. Technique AP standing and lateral radiographs of the bilateral knees. Findings Left total knee arthroplasty is unchanged in position, no dislocation, periprosthetic fracture, or interval periprosthetic radiolucenciesidentified. No significant left knee effusion. Unchanged small broad-based ossification/calcification just superior to the femoral prosthesisanteriorly best seen on the lateral view. Right knee is unchanged compared to the prior July 2012 radiographs,with unchanged tricompartmental osteoarthritis characterized by joint space narrowing, subchondral sclerosis, and small osteophytes, joint spacenarrowing most severe involving the medial compartment. Lateral and medialcompartment chondrocalcinosis is again noted. Persistent right knee effusion, not significantly changed. Impression 1. Unchanged appearance of left total knee arthroplasty. 2. Stable right knee osteoarthritis, most advanced in the medialcompartment, and chondrocalcinosis. Chandra Del Rosario MD IMG DX ORDERABLES documented in this encounter Visit Diagnoses Diagnosis Osteoarthritis of right knee Osteoarthrosis, unspecified whether generalized or localized, lower leg History of total knee arthroplasty, left Knee joint replacement by other means documented in this encounter Care Teams Vp Talent Management Relationship Specialty Start Date End Date Candace Avery APRN [facility] [address] [place] [address] PCP - General 04/03/11 01/17/15 documented as of this encounter
--- OUTSIDE RECORDS SUMMARY | 2024-01-24 15:55 | XMS_ITS | Encounter Summary ---
Author Organization [facility] Address [facility] [place] [address] Care Team Providers Care Document Control Associate Name Role Phone Bennie Candace Blanc APRN Primary Care Provider [phone]- [phone] Reason for Visit * Reason Comments Right Knee Pain knee pain Encounter Details Date Type Department Care Team (Late st Contact Info) Description 11/30/2013 12:30 PM EDT Office [place] [address] Chandra Garza MD [facility]THOPA[facility] [place] [address] DJD (degenerative joint disease) of knee (Primary Dx); Encounter for long-term (current) use of other medications; Osteoarthritis of knee; Pain in limb; Debility, unspecified Discharge Disposition: Home Social History Tobacco Use [...] documented in this encounter Progress Notes * Chandra Garza MD - 11/30/2013 1:31 PM EDT HISTORY [...] who presents for preoperative appointment today. The risksand benefits of the procedure were outlined in [...] progressing. documented in this encounter Miscellaneous Notes * Miscellaneous - Provider, Scanning - 12/15/2013 11:49 AM EDT documented in this encounter Plan of Treatment Upcoming Encounters Date Type Department Care Team (Late st Contact Info) Description 03/19/2024 10:00 AM EDT Hospital Encounter Non-Invasive [place] [address] Arrived documented as of this encounter Procedures Procedure Name Priority Date/Time Associated Diagnosis Comments URINALYSIS WITH REFLEX CULTURE Routine 11/30/2013 11:49 AM EDT Osteoarthritis of knee URINE CULTURE Routine 11/30/2013 11:49 AM EDT Debility, unspecified HEMOGRAM Routine 11/30/2013 11:17 AM EDT Encounter for long-term (current) use of other medications DIFFERENTIAL, AUTOMATED Routine 11/30/2013 11:17 AM EDT Encounter for long-term (current) use of other medications TYPE AND SCREEN, SDP (FUTURE SURGERY, [facility] SAME DAY PROGRAM ONLY) Routine 11/30/2013 11:17 AM EDT Osteoarthritis of knee ABO/RH TYPING Routine 11/30/2013 11:17 AM EDT Osteoarthritis of knee PROTHROMBIN TIME Routine 11/30/2013 11:1 7 AM EDT Pain in limb CBC (WITH DIFF) Routine 11/30/2013 11:17 AM EDT Encounter for long-term (current) use of other medications ANTIBODY SCREEN Routine 11/30/2013 11:17 AM EDT Osteoarthritis of knee BASIC METABOLIC PANEL (NON-FASTING) Routine 11/30/2013 11:17 AM EDT Osteoarthritis of knee documented in this encounter Results * Urine culture Clean Catch Urine (11/30/2013 11:49 AM EDT) Urine Culture ? Patient Name: LISA ROMO ? Ordered By: CHANDRA GARZA ? MR#: [id number] ?LOC: ??3D ? /Sex: ?? 4 (68 years), ? Male ? PROCEDURE: Urine Culture ?SOURCE: U CC ? COLLECTED: 11/30/2013 11:49 ? STARTED: 11/30/2013 12:51 ? FINAL REPORT ? Final Report ? Verified: 07:50 ? No growth (Less than 1,000 cfu/ml). ? ____ CERNER MILLENNIUM Urine specimen obtained by clean catch procedure (specimen) 11/30/2013 11:49 AM EDT 11/30/2013 12:51 PM EDT Narrative Resulting Agency Comment Spec In Lab Chandra Garza MD MICROBIOLOGY - GENER AL ORDERABLES Performing Organization Address [facility] Co de Phone Number [facility] * (ABNORMAL) Urinalysis with microscopic (11/30/2013 11:49 AM EDT) Glucose UA Negative Negative mg/dL CERNER MILLENNIUM Protein UA Trace(A) Neg mg/dL CERNER MILLENNIUM Bilirubin UA Negative Negative mg/dL CERNER MILLENNIUM Comment: Clinical correlation required for positive Urine Bilirubin results as false positive may occur with some drugs and drug related products. If a false positive is suspected a serum total bilirubin should be considered if clinically indicated. Urobilinogen UA Normal mg/dL CERN ER MILLENNIUM pH UA 5.5 5.0 - 8.0 CERNER MILLENNIUM Blood UA Negative mg/dL CERNER MILLENNIUM Ketones UA Negative mg/dL CERNER MILLENNIUM Nitrite UA Negative CERNER MILLENNIUM Leukocytes UA Negative mcL CERNER MILLENNIUM Appearance UA Clear Clear CERNER MILLENNIUM Spec Walton UA 1.010 1.002 - 1.030 CERNER MILLENNIUM Color UA Yellow Yellow CERNER MILLENNIUM RBC UA <1 0 - 3 /HPF CERNER MILLENNIUM WBC UA 1 0 - 3 /HPF CERNER MILLENNIUM Squam Epith UA <1 <=4 /HPF CERNE R MILLENNIUM Hyaline Cast UA 9(H) 0 - 2 /LPF CER NER MILLENNIUM Urine specimen (specimen) 11/30/2013 11:49 AM EDT 11/30/2013 12:26 PM EDT Narrative Resulting Agency Comment Spec In Lab Chandra Garza MD URINE ORDERABLES Performing Organization Address City/[facility]/ZIP Co de Phone Number [facility] MILLENNIUM * Antibody screen (11/30/2013 11:17 AM EDT) Ab Screen Interp Negative CERNER MILLENNIUM Expires at [id number] on: [id number] CERNER MILLENNIUM Blood specimen (specimen) 11/30/2013 11:17 AM EDT 11/30/2013 11:33 AM EDT Narrative Resulting Agency Comment Spec In Lab Chandra Garza MD BLOOD BANK LAB ORDER MARY ALICE Performing Organization Address City/State/[facility] Co de Phone Number CERNER MILLENNIUM * ABO/Rh Typing (11/30/2013 11:17 AM EDT) ABORH Type O Pos CERNER MILLENNIUM Blood specimen (specimen) 11/30/2013 11:17 AM EDT 11/30/2013 11:33 AM EDT Narrative Resulting Agency Comment Spec In Lab Chandra Garza MD BLOOD BANK LAB ORDER MARY ALICE Performing Organization Address City/[facility] Co de Phone Number CERNER MILLENNIUM * Differential, Automated (11/30/2013 11:17 AM EDT) Neutrophils % 57.6 34.0 - 71.0 % CERNER MILLENNIUM Neutr Abs (ANC) 3.80 1.50 - 6.30 x10(3)/mcL CERNER MILLENNIUM Lymphocytes % 30.3 19.0 - 53.0 % CERNER MILLENNIUM Lymphocytes Abs 2.0 1.0 - 3.6 x10(3)/mcL CERNER MILLENNIUM Monocytes % 11.1 4.0 - 13.0 % CERNER MILLENNIUM Monocyte Abs 0.7 0.2 - 1.0 x10(3)/mcL CERNER MILLENNIUM Eosinophils % 0.0 0.0 - 7.0 % CERNER MILLENNIUM Eosinophils Abs 0.0 0.0 - 0.5 x10(3)/mcL CERNER MILLENNIUM Basophils % 0.8 0.0 - 2.0 % CERNER MILLENNIUM Basophils Abs 0.0 0.0 - 0.2 x10(3)/mcL CERNER MILLENNIUM Immature Gran % 0.20 0.00 - 0.66 % CERNER MILLENNIUM Comment: Immature granulocytes(IG's)percentage and absolute count will include metamyelocytes, myelocytes, and promyelocytes. Blood smears from CBCs yielding IG's will be scanned manually for concordance. If this scan disagrees with the automated IG or if promyelocytes are noted, a manual differential will be performed. Carolin Gran Abs 0.01 0.00 - 0.05 x10(3)/mcL CERNER MILLENNIUM Blood specimen (specimen) 11/30/2013 11:17 AM EDT 11/30/2013 11:58 AM EDT Narrative Resulting Agency Comment Spec In Lab Chandra Garza MD HEMATOLOGY ORDERABLE S Performing Organization Address [facility]/ZIP Co de Phone Number CERLOUIS STUBBSENNIUM * (ABNORMAL) Hemogram (11/30/2013 11:17 AM EDT) WBC 6.6 4.0 - 10.0 x10(3)/mcL CERNER MILLENNIUM RBC 4.43(L) 4.63 - 6.08 x10(6)/mcL CERNER MILLENNIUM Hemoglobin 13.4(L) 13.7 - 17.5 gm/dL CERNER MILLENNIUM Hematocrit 40.5 40.0 - 51.0 % CERNER MILLENNIUM MCV 91.4 79.0 - 92.0 fL CERNER MILLENNIUM MCH 30.2 25.6 - 32.2 pg CERNER MILLENNIUM MCHC 33.1 32.0 - 36.5 gm/dL CERNER MILLENNIUM Platelets 213 145 - 370 x10(3)/mcL CERNER MILLENNIUM RDWSD 44.8 35.0 - 46.0 fL CERNER MILLENNIUM RDWCV 13.6 10.9 - 14.4 % CERNER MILLENNIUM MPV 11.1 9.0 - 12.0 fL CERNER MILLENNIUM Blood specimen (specimen) 11/30/2013 11:17 AM EDT 11/30/2013 11:58 AM EDT Narrative Resulting Agency Comment Spec In Lab Chandra Garza MD HEMATOLOGY ORDERABLE S CERLOUIS STUBBSENNIUM * Prothrombin Time (11/30/2013 11:17 AM EDT) PT 12.1 12.0 - 15.0 sec CERNER MILLENNIUM Comment: [facility] Transfusion Committee Guidelines: INR less than 2.0, PTT less than OR equal to 43.5 seconds, or Fibrinogen greater than or equal to 100 mg/dl indicate adequate procoagulant activity for hemostasis in patients without underlying bleeding disorders. INR 0.9 0.9 - 1.1 CERNER MILLENNIUM Blood specimen (specimen) 11/30/2013 11:17 AM EDT 11/30/2013 11:58 AM EDT Narrative Resulting Agency Comment Spec In Lab Chandra Garza MD HEMATOLOGY ORDERABLE S CERNER MILLENNIUM * (ABNORMAL) Basic Metabolic Panel (non-fasting) (11/30/2013 11:17 AM EDT) Glucose Lvl 128 60 - 199 mg/dL CERNER MILLENNIUM Comment:Diabetes: >=200 mg/d L plus symptoms BUN 28(H) 10 - 20 mg/dL CERNER MILLENNIUM Creatinine 1.16 0.80 - 1.50 mg/dL CERNER MILLENNIUM Comment: Please note that the pediatric reference intervals supplied above were not validated at [facility]. Results from pediatric patients should be interpreted in conjunction to the patient's age, height and muscle mass. Sodium 140 135 - 145 mmol/L CERNER MILLENNIUM Potassium 3.5 3.5 - 5.0 mmol/L CERNER MILLENNIUM Comment: Please note: ??Patients with WBC >100,000 may have falsely elevated Potassium levels. ??For accurate Potassium quantification in these patients send serum separator tube (gold top) for subsequent determinations. ??Contact the Clinical Chemistry Laboratory if there are any questions. Chloride 100 98 - 107 mmol/L CERNER MILLENNIUM CO2 28 22 - 31 mmol/L CERNER MILLENNIUM Anion Gap 12 5 - 15 mmol/L CERNER MILLENNIUM Calcium 9.2 8.5 - 10.5 mg/dL CERNER MILLENNIUM Estimated [...] internet browser. http://www.nkdep.nih.gov/lab-evaluation.shtml http://www.kidney.org/professionals/ Blood specimen (specimen) 11/30/2013 11:17 AM EDT 11/30/2013 11:58 AM EDT Narrative Resulting Agency Comment Spec In Lab Chandra Garza MD CHEMISTRY ORDERABLES Performing Organization Address City/State/[facility] Co la Phone Number [facility] documented in this encounter Visit Diagnoses Diagnosis DJD (degenerative joint disease) of knee- Primary Osteoarthrosis, unspecified whether generalized or localized, lower leg Encounter for long-term (current) use of other medications Osteoarthritis of knee Osteoarthrosis, unspecified whether generalized or localized, lower leg Pain in limb Debility, unspecified documented in this encounter Care Teams Document Control Associate Relationship Specialty Start Date End Date Candace Avery, MELISSA [facility] [address] [place] [address] PCP - General 04/03/11 01/17/15 documented as of this encounter
--- OUTSIDE RECORDS SUMMARY | 2024-01-24 15:55 | XMS_ITS | Encounter Summary ---
Author Organization [facility] [place] [address] Care Team Providers Care Frame Expander Name Role Phone Candace Avery APRN Primary Care Provider +1- [phone] Reason for Visit * Reason Onset Date Comments Medical Care Coordination 08/05/2012 Encounter Details Date Type Department Care Team (Late st Contact Info) Description 08/05/2012 [place] [phone] Pb Schroeder PA [address] [place] [address] Medical Care Coordination Social History Tobacco Use Types Packs/Day Years [...] encounter Miscellaneous Notes * Telephone Encounter - Pb Schroeder PA - 08/11/2012 8:33 AM EST I talked to Candace Soto the patient's PCP in regards to the patient's report weight loss. Her PCP reports that he has actually lost 35 pounds over the past year. She has been evaluating him for this loss and under has undergone several screening test which have been negative. She will be sending her evaluation and results of these tests to the clinic. * Telephone Encounter - Pb Schroeder PA - 08/05/2012 12:13 PM EST I called Candace ZUÑIGA the patient's PCP, she was not in the office and a message was left. We discussed that the patient reported a 60 pound [...] AM EDT Hospital Encounter [place] [address] Arrived documented as of this encounter Visit Diagnoses Not on filedocumented in this encounter Care Teams Frame Expander Relationship Specialty Start Date End Date Candace Avery APRN [facility] [address] [place] [address] PCP - General 04/03/11 01/17/15 documented as of this encounter
--- OUTSIDE RECORDS SUMMARY | 2024-01-24 15:55 | XMS_ITS | Encounter Summary ---
Author Organization [facility] Address [facility] [place] [address] Care Team Providers Care Laboratory Mechanic Helper Name Role Phone Bennie Candace Blanc APRN Primary Care Provider +1- [phone] Encounter Details Date Type Department Care Team (Latest Contact Info) Description 05/14/2011 1:19 PM EDT - 05/14/2011 11:59 PM EDT Hospital Encounter XRay at [address] [place] [address] S/P TKR (total knee replacement) Social History Tobacco Use Types Packs/Day Years [...] Refills Start Date End Date albuterol (PROVENTIL HFA;VENTOLIN HFA) 90 mcg/Actuation inhaler Inhale 2 puffs into the lungs every 4 hours as needed. Use with spacer aspirin 325 mg tablet 08/06/20102013 penicillin v potassium (VEETID) 500 mg tablet 500mg, PO, BID 08/06/2010 pioglitazone (ACTOS) 15 mg tablet 08/06/2010 06/01/2012 documented as of this encounter Plan of Treatment Upcoming Encounters Date Type Department Care Team (Late st Contact Info) Description 03/19/2024 10:00 AM EDT Hospital Encounter [place] [address] Arrived documented as of this encounter Procedures Procedure Name Priority Date/Time Associated Diagnosis Comments XR KNEE AP AND LAT BILAT Routine 05/14/2011 1:27 PM EDT Knee joint replacement by other means documented in this encounter Results * XR KNEE BILATERAL1 OR 2 VIEW (05/14/2011 1:27 PM EDT) Anatomical Region Laterality Modality Knee Bilateral Radiographic Amparo ging 05/14/2011 1:27 PM EDT Narrative 05/14/2011 4:29 PM EDT KNEE, BILATERAL, 05/14/11: ?? HISTORY: ??Status post left total knee, right knee pain, DJD. TECHNIQUE: ??An AP standing view of both knees and lateral views of each knee are compared to a prior knee series of 12/28/08 and of 11/23/07. ?? FINDINGS: ??The patient has a left total knee. ??The right knee shows marked degenerative change with medial compartment narrowing and osteophyte formation. ?? There is a large joint effusion. ??These changes were present on the prior exam. ?? On the left knee, patient has a total knee arthroplasty. ??There is focal calcification above the prosthesis along the volar surface of the distal femur. ?? This has been seen on multiple prior exams and has the appearance of a hook-like projection. ??This is not present preoperatively. ??On the first postoperative film of 10/14/05 there is amorphous dystrophic calcification in that location. ??On subsequent images it takes on a more well-defined and bony appearance, as well as the appearance of a hook-like configuration. ??There has been lucency seen along the margins of the bone adjacent to the prosthesis from 09/14/06 to the present. ??This does not appear worse. ??It appears stable relative to the prior exam. ??Overall, the appearance of the prosthesis is stable relative to prior. Procedure Note Cecy Fairbanks MD - 05/14/2011 KNEE, BILATERAL, 05/14/11: HISTORY: Status post left total knee, right knee pain, DJD. TECHNIQUE: An AP standing view of both knees and lateral views of eachknee are compared to a prior knee series of 12/28/08 and of 11/23/07. FINDINGS: The patient has a left total knee. The right knee shows marked degenerative change with medial compartment narrowing and osteophyteformation. There is a large joint effusion. These changes were present on the priorexam. On the left knee, patient has a total knee arthroplasty. There is focal calcification above the prosthesis along the volar surface of the distalfemur. This has been seen on multiple prior exams and has the appearance of a hook-like projection. This is not present preoperatively. On the first postoperative film of 10/14/05 there is amorphous dystrophic calcificationin that location. On subsequent images it takes on a more well-defined andbony appearance, as well as the appearance of a hook-like configuration. Therehas been lucency seen along the margins of the bone adjacent to the prosthesisfrom 09/14/06 to the present. This does not appear worse. It appears stable relative to the prior exam. Overall, the appearance of the prosthesis is stable relative to prior. Chandra Del Rosario MD IMG DX ORDERABLES documented in this encounter Visit Diagnoses Diagnosis S/P TKR (total knee replacement) Knee joint replacement by other means documented in this encounter Care Teams Laboratory Mechanic Helper Relationship Specialty Start Date End Date Candace Avery APRN [facility] [address] [place] [address] PCP - General 04/03/11 01/17/15 documented as of this encounter
--- OUTSIDE RECORDS SUMMARY | 2024-01-24 15:55 | XMS_ITS | Encounter Summary ---
Author Organization [place] [address] Care Team Providers Care Captain/Check Airman Name Role Phone Candace Aevry APRN Primary Care Provider +1- [phone] Encounter Details Date Type Department Care Team (Late st Contact Info) Description 11/30/2013 8:30 AM EDT Office [place] [address] Social History Tobacco Use Types Packs/Day Years [...] EDT Hospital Encounter Non-[place] [phone] Arrived documented as of this encounter Visit Diagnoses Not on filedocumented in this encounter Care Teams Captain/Check Airman Relationship Specialty Start Date End Date Candace Avery APRN [facility] [address] [place] [address] PCP - General 04/03/11 01/17/15 documented as of this encounter
--- OUTSIDE RECORDS SUMMARY | 2024-01-24 15:55 | XMS_ITS | Encounter Summary ---
Author Organization [facility] Address [facility] [place] [address] Care Team Providers Care Regional Owner Operator Truck Driver Name Role Phone Bennie Candace Blanc APRN Primary Care Provider +1- [phone] Reason for Visit * Reason Comments Coronary Artery Disease Encounter Details Date Type Department Care Team (Late st Contact Info) Description 08/10/2012 8:40 AM EST Follow-Up Cardiology at [address] [address] Hima Marino MD [facility] [place] [address] Myocardial infarction, old; Hypertension; Lipid disorder; CAD (coronary artery disease) Discharge Disposition: Home Social History Tobacco [...] 174.6 cm (5' 8.75) 08/10/2012 8:28 AM ES T Body Mass Index 36.3 08/10/2012 8:28 AM EST documented in this encounter Progress Notes * Hima Marino MD - 08/10/2012 8:55 AM EST Cardiology Clinic Note History: Corona Romo is a 67 y.o. male presenting for routine office follow up of cardiovascular problems. The patient states that he is having more difficulty with his right knee from DJD and he hasbeen seen by Dr. Del Rosario for TKR [...] syncopal event when the hypertension was poorly controlled.He went to [facility] ER to assess that event and he was discharged to home. He has been losing weight but states that his appetite is fair. Other than some discoloration of the stools from his chronic anemia with iron replacement. He denies abdominal pain, fever, dysuria. Deborah has not had angina, PND, orthopnea. Meds [...] talked with the patient about his remote CT and the apparently stable CAD by symptoms. His inactivity related to the obesity and DJD warrants another pharmacologic stress study in advance of the potential TKR. I described the rationale for ordering the pharmacologic stress test and how we profile individuals with known CAD prior to elective noncardiac surgical procedures. i also reviewed the lab studies obtained in June with him and his . His BP today is good but he still is experiencing some orthostatic symptoms. I cautioned him about his positional changes and how to minimize falling risk. If dry mouth or fatigue becomes an issue with the clonidine, the dose could be reduced to [...] AM EDT Hospital Encounter Non-[place] [address] Arrived documented as of this encounter Procedures Procedure Name Priority Date/Time Associated Diagnosis Comments EKG 12-LEAD Routine 08/10/2012 9:31 AM EST CAD (coronary artery disease) documented in this encounter Results * EKG 12 Lead (08/10/2012 9:31 AM EST) Ventricular rate 61 BPM MUSE SYSTEM Atrial Rate 61 BPM MUSE SYSTEM P-R Interval 140 ms MUSE SYSTEM QRS Duration 102 ms MUSE SYSTEM Q-T Interval 438 ms MUSE SYSTEM QTC Calculated (Bezet) 440 ms MUSE SYSTEM Calculated P Flynn 66 degrees MUSE SYSTEM Calculated R Flynn -9 degrees MUSE SYSTEM Calculated T Flynn -7 degrees MUSE SYSTEM INTERPRETATION Normal sinus rhythm Normal ECG When compared with ECG of 01-JUN-2012 15:27, No significant change was found Confirmed by MD RENAY, BARBARA ([id number]) on 08/11/2012 9:20:34 AM MUSE SYSTEM 08/10/2012 9:31 AM EST 08/11/2012 9:20 AM EST Hima Marino MD ECG ORDERABLES MUSE SYSTEM documented in this encounter Visit Diagnoses Diagnosis Myocardial infarction, old Old myocardial infarction Hypertension Unspecified essential hypertension Lipid disorder Unspecified disorder of lipoid metabolism CAD (coronary artery disease) Coronary atherosclerosis of unspecified type of vessel, [place] or graft documented in this encounter Care Teams Regional Owner Operator Truck Driver Relationship Specialty Start Date End Date Candace Avery APRN [facility] [address] [place] [address] PCP - General 04/03/11 01/17/15 documented as of this encounter
--- OUTSIDE RECORDS SUMMARY | 2024-01-24 15:55 | XMS_ITS | Encounter Summary ---
Author Organization [facility] Address [facility] [place] [address] Care Team Providers Care Conservation Coordinator Name Role Phone Candace Avery MELISSA Primary Care Provider +1- [phone] Encounter Details Date Type Department Care Team (Late st Contact Info) Description 11/24/2013 [place] [address] Paulina Rajput RN Right knee pain (Primary Dx) Social History Tobacco Use Types [...] AM EDT Hospital Encounter Non-Invasive [place] [phone] Arrived documented as of this encounter Results * XR Joint Team alignment AP LAT Schuss [place] (11/30/2013 2:25 PM EDT) Anatomical Region Laterality [...] beseen in the lateral compartment. Chandra Del Rosario MD IMG DX ORDERABLES documented in this encounter Visit Diagnoses Diagnosis Right knee pain- Primary Pain in joint, lower leg Right knee pain Pain in joint, lower leg documented in this encounter Care Teams Conservation Coordinator Relationship Specialty Start Date End Date Candace Avery APRN [facility] [address] [place] [address] PCP - General 04/03/11 01/17/15 documented as of this encounter
--- OUTSIDE RECORDS SUMMARY | 2024-01-24 15:55 | XMS_ITS | Encounter Summary ---
Author Organization [facility] Address [facility] [place] [address] Care Team Providers Care House Admin Name Role Phone Candace Avery APRN Primary Care Provider +1- [phone] Encounter Details Date Type Department Care Team (Latest Contact Info) Description 08/04/2012 1:05 PM EST - 08/04/2012 11:59 PM [facility] Hospital Encounter XRay at [address] [place] [address] Right knee pain Social History Tobacco Use [...] Sig Dispensed Refills Start Date End Date buPROPion SR (Wellbutrin SR) 150 mg tablet sustained-release 12 hr Take 150 mg by mouth 2 times daily. albuterol (PROVENTIL HFA;VENTOLIN HFA) 90 mcg/Actuation inhaler Inhale 2 puffs into the lungs every 4 hours as needed. Use with spacer cloNIDine (CATAPRES) 0.1 mg tablet Take 0.1 mg by mouth nightly. 08/10/2013 ferrous sulfate 325 mg (65 mg iron) [...] AM EDT Hospital Encounter Non-Invasive [place] [address] Arrived documented as of this encounter Procedures Procedure Name Priority Date/Time Associated Diagnosis Comments XR KNEE DIAGNOSTIC 1 OR 2 VIEW Routine 08/04/2012 1:25 PM EST Right knee pain documented in this encounter Results * XR knee diagnostic 1 or 2 view (08/04/2012 1:25 PM EST) Anatomical Region Laterality Modality Knee N/A Radiographic Amparo ging 08/04/2012 1:25 PM EST Narrative 08/04/2012 1:45 PM EST Examination KNEE 1 OR 2 VIEWS/RIGHT Clinical History F/U RIGHT KNEE PAIN / DJD Comparison 05/14/2011. Technique AP standing view of both knees, as well as lateral view of the right knee. Findings Severe medial compartment joint space narrowing persist, with mild increase and productive change in the patellofemoral compartment and enthesophyte along the ventral aspect of the superior patella now visible on the lateral view. ?? Minimally smaller suprapatellar effusion. ??Post arthroplasty appearance of the left knee not significantly changed. Impression Mild increase in right knee arthropathic change. Procedure Note Stefany Barker MD - 08/04/2012 Examination KNEE 1 OR 2 VIEWS/RIGHT Clinical History F/U RIGHT KNEE PAIN / DJD Comparison 05/14/2011. Technique AP standing view of both knees, as well as lateral view of the right knee. Findings Severe medial compartment joint space narrowing persist, with mildincrease and productive change in the patellofemoral compartment and enthesophyte alongthe ventral aspect of the superior patella now visible on the lateral view. Minimally smaller suprapatellar effusion. Post arthroplasty appearance ofthe left knee not significantly changed. Impression Mild increase in right knee arthropathic change. Chandra Del Rosario MD IMG DX ORDERABLES documented in this encounter Visit Diagnoses Diagnosis Right knee pain Pain in joint, lower leg documented in this encounter Care Teams House Admin Relationship Specialty Start Date End Date Candace Avery APRN [facility] [address] [place] [address] PCP - General 04/03/11 01/17/15 documented as of this encounter
--- OUTSIDE RECORDS SUMMARY | 2024-01-24 15:55 | XMS_ITS | Encounter Summary ---
Author Organization [facility] Address [facility] [place] [address] Care Team Providers Care Industrial Technologist Name Role Phone Bennie Candace Blanc APRN Primary Care Provider +1- [phone] Reason for Visit * Reason Comments Aftercare Of Tjr SP L TKR DOS 09/10/05 Right Knee Pain Encounter Details Date Type Department Care Team (Late st Contact Info) Description 05/14/2011 1:55 PM EDT Office [place] [address] Chandra Del Rosario MD [facility] [place] [address] History of total knee arthroplasty(LEFT) (Primary Dx) Discharge Disposition: Home Social History [...] cm (5' 9) 05/14/2011 2:31 PM EDT P T STATED Body Mass Index 41.39 05/14/2011 2:31 PM EDT documented in this encounter Patient Instructions * Patient Instructions* Linda Salinas, LANI - 05/14/2011 2:35 PM EDT Welcome to [employer], your secure online access to your electronic medical record at [facility]. Using [employer] you will be able to send messages to your providers, view your test results, renew prescriptions, schedule appointments, and much more. Follow these instructions to enter your personal [employer] account for the first time: 1. Start your internet browser. Go to [email or web address] and click on the [employer] link. 2. Click SIGN UP NOW to go to the NEW MEMBER SIGN UP page. 3. Enter your [employer] Access Code exactly as it appears below. (You will not need this access code after you have completed the sign-up process.) ?? Your [employer] Access Code: [email or web address] ?? Expires: 06/28/11 02:35 PM ?? IMPORTANT: This Access Code will on the above mentioned date. If you do not sign up before this date, you will need to request a new Access Code number. 4. Enter your Date of (mm/dd/yyyy) and zip code click SUBMIT to go to the next page. 5. Create a [employer] identification (ID). This will be your [employer] login ID and cannot be changed, so [...] know when new information is available in [employer]. 9. Click SIGN UP to complete the process. You can now view your electronic medical record. If you have any questions about [employer] or your Access Code, please call for [place], for [place] or for [place]. If you need technical support, please e-mail [email or web address]. Remember, myD-H is NOT for urgent needs! Always dial 911 for medical emergencies. documented in this encounter Progress Notes * Jimenez Rolle - 05/14/2011 2:57 PM EDT Subjective: Patient ID: Corona Romo is a 66 y.o. male. HPI This is a 66yo male here for f/u on left TKA and discuss right knee pain. The left knee is doing fine. Having right knee pain. Had injury to right foot and knee in 2008. Jumped approximately 3 foot off stand and caused foot pain. Initially seen by PCP and then referred to Ortho. Wears an AFO onthe right for foot drop. No initially right knee pain or swelling. At times the right knee feels unstable. Has noticed more pain to right knee for past year. Walking with cane, may use Tylenol or ice. Recently hunting, walking down hills is painfull and sore for several days afterwards. [facility] 6.2 Has a new pair of diabetic chukka boots to be delivered next week. Patient Active Problem List Diagnoses Code ??? CIS - CAD ??? CIS - DJD ??? CIS - [...] passed gait. Right foot drop. Mild lower extremityedema bilateral. EHL weakness. Ortho Exam Post Op [...] arriving Chukka boots. Discussed right knee, patient stateshe currently doing well, does not feels he [...] AM EDT Hospital Encounter [place] [address] Arrived documented as of this encounter Visit Diagnoses Diagnosis History of total knee arthroplasty(LEFT)- Primary Knee joint replacement by other means documented in this encounter Care Teams Industrial Technologist Relationship Specialty Start Date End Date Candace Avery APRN [facility] [address] [place] [address] PCP - General 04/03/11 01/17/15 documented as of this encounter
--- OUTSIDE RECORDS SUMMARY | 2024-01-24 15:55 | XMS_ITS | Encounter Summary ---
Author Organization [facility] Address [facility] [place] [address] Care Team Providers Care Operational Trainer Name Role Phone Candace Avery MELISSA Primary Care Provider +1- [phone] Encounter Details Date Type Department Care Team (Late st Contact Info) Description 07/18/2013 Orders [place] [address] Chandra Del Rosario MD [facility] DR [place] [address] Osteoarthritis of right knee; History of total [...] AM EDT Hospital Encounter Non-[place] [address] Arrived documented as of this encounter Results * XR knee bilateral [...] means documented in this encounter Care Teams Operational Trainer Relationship Specialty Start Date End Date Candace Avery APRN [facility] [address] [place] [address] PCP - General 04/03/11 01/17/15 documented as of this encounter
--- OUTSIDE RECORDS SUMMARY | 2024-01-24 15:55 | XMS_ITS | Encounter Summary ---
Author Organization [facility] Address [facility] [place] [address] Care Team Providers Care Pediatric Licensed Practical Nurse Name Role Phone BennieDaliaCandacemarissa Blanc APRN Primary Care Provider +1- [phone] Encounter Details Date Type Department Care Team (Latest Contact Info) Description 09/09/2012 9:15 AM EST - 09/09/2012 11:59 PM [facility] Hospital Encounter [place] [address] CLINIC, Hima Corrales MD [facility] [place] [address] Preop testing (Primary Dx); CAD (coronary artery disease); Hypertension; CAD (coronary artery disease) Discharge Disposition: Home [...] AM EDT Hospital Encounter Non-[place] [address] Arrived documented as of this encounter Procedures Procedure Name Priority Date/Time Associated Diagnosis Comments NM PHARMACOLOGIC STRESS AND REST MYOCARDIAL PERFUSION Routine 09/09/2012 11:06 AM EST Unspecified essential hypertension Cor athrscl-uns vessel documented in this encounter Results * NM myocardial perfusion scan, pharmacologic (09/09/2012 11:06 AM EST) Anatomical Region Laterality Modality Other 09/09/2012 11:0 6 AM EST Narrative 09/09/2012 11:24 AM EST Examination REST AND PHARMACOLOGIC MYOCARDIAL PERFUSION SCANS, 09/09/12 [...] demonstrate no reversible or fixed perfusion defects. ??LV cavity size is within normal limits. ??The gated study shows normal left ventricular wall thickening and wall motion. ??The estimated left ventricular ejection fraction is 58%, as compared to the reported 63% on the prior 2004 study. Impression No evidence of ischemia or scar. ??Normal left ventricular function with an estimated LVEF of 58%. Procedure Note Paris Peacock MD - 09/09/2012 Examination REST AND PHARMACOLOGIC MYOCARDIAL PERFUSION SCANS, 09/09/12 Clinical History CAD, preop assessment Comparison Report for rest and exercise stress myocardial perfusion scans dated 12/23/2004; images are not available for direct comparison. Technique During rest, 11.6 mCi of technetium-99m sestamibi were administered intravenously. Approximately 15 minutes later, SPECT images of the heartwere obtained with reconstruction in the short, vertical long and horizontallong axes. The patient then received regadenoson intravenously at a dose of 0.4mg.Twenty seconds later, 40.3 mCi of technetium-99m sestamibi were administered intravenously. Images of the heart were then again obtained with SPECT reconstruction. A low dose CT scan was acquired for the purpose of attenuation correction. Findings The post pharmacologic and rest images demonstrate no reversible or fixed perfusion defects. LV cavity size is within normal limits. The gatedstudy shows normal left ventricular wall thickening and wall motion. Theestimated left ventricular ejection fraction is 58%, as compared to the reported 63%on the prior 2004 study. Impression No evidence of ischemia or scar. Normal left ventricular function with an estimated LVEF of 58%. Hima Marino MD [facility] [place] ORDERABLES documented in this encounter Visit Diagnoses Diagnosis Preop testing- Primary Preoperative examination, unspecified CAD (coronary artery disease) Coronary atherosclerosis of unspecified type of vessel, [place] or graft Hypertension Unspecified essential hypertension documented in this encounter Administered Medications Inactive Administered Medications - up to 3 most recent administrations Medication Order MAR Action Action Date Dose Rate Site regadenoson (LEXISCAN) injection 0.4 mg 0.4 mg, Intravenous, ONCE, 1 dose, On Wed09/09/12 at 1100, Routine Given 09/09/2012 10:30 AM EST 0.4 mg documented in this encounter Care Teams Pediatric Licensed Practical Nurse Relationship Specialty Start Date End Date Candace Avery APRN [facility] [address] [facility] [place] [address] PCP - General 04/03/11 01/17/15 documented as of this encounter
--- OUTSIDE RECORDS SUMMARY | 2024-01-24 15:55 | XMS_ITS | Encounter Summary ---
Author Organization [facility] Address [facility] [place] [address] Care Team Providers Care Head Transfer Clerk Name Role Phone Favian Averychaitanya Blanc APRN Primary Care Provider +1- [phone] Encounter Details Date Type Department Care Team (Late st Contact Info) Description 10/11/2013 Orders [place] [address] Paulina Rajput RN Encounter for long-term (current) use of other medications (Primary Dx); Osteoarthritis of knee; Pain in limb; Debility, unspecified Social History Tobacco Use Types Packs/Day Years [...] AM EDT Hospital Encounter Non-Invasive [place] [address] Arrived documented as of this encounter Results * Urine culture Clean Catch Urine (11/30/2013 11:49 AM EDT) Urine Culture ? Patient Name: LISA ROMO ? Ordered By: CHANDRA GARZA ? MR#: [id number] ?LOC: ??3D ? /Sex: ?? 4 (68 [...] Garza MD MICROBIOLOGY - GENER AL ORDERABLES CERNER MILLENNIUM * (ABNORMAL) Urinalysis with microscopic (11/30/2013 11:49 [...] Appearance UA Clear Clear CERNER MILLENNIUM Spec [place] UA 1.010 1.002 - 1.030 CERNER MILLENNIUM [...] Garza MD URINE ORDERABLES Performing Organization Address [facility] Co de Phone Number [facility] * Prothrombin Time (11/30/2013 11:17 AM EDT) PT 12.1 12.0 - 15.0 sec [facility] Comment: [facility] Transfusion Committee Guidelines: INR less than 2.0, PTT less than OR equal to 43.5 seconds, or Fibrinogen greater than or equal to 100 mg/dl indicate adequate procoagulant activity for hemostasis in patients without underlying bleeding disorders. INR 0.9 0.9 - 1.1 [facility] Blood specimen (specimen) 11/30/2013 11:17 AM EDT 11/30/2013 11:58 AM EDT Narrative Resulting Agency Comment Spec In Lab Chandra Garza MD HEMATOLOGY ORDERABLE S [facility] * (ABNORMAL) Basic Metabolic Panel (non-fasting) (11/30/2013 11:17 AM EDT) Glucose Lvl 128 60 - 199 mg/dL [facility] Comment:Diabetes: >=200 mg/d L plus symptoms BUN 28(H) 10 - 20 mg/dL CERNER MILLENNIUM Creatinine 1.16 0.80 - 1.50 mg/dL [facility]ERNER MILLENNIUM Comment: Please note that the pediatric reference intervals supplied above were not validated at [facility] Results from pediatric patients should be interpreted [...] In Lab Chandra Garza MD CHEMISTRY ORDERABLES [facility]NAS documented in this encounter Visit Diagnoses Diagnosis Encounter for long-term (current) use of other medications- Primary Osteoarthritis of knee Osteoarthrosis, unspecified whether generalized or localized, lower leg Pain in limb Debility, unspecified documented in this encounter Care Teams Head Transfer Clerk Relationship Specialty Start Date End Date Candace Avery APRN [facility] [address] [place] [address] PCP - General 04/03/11 01/17/15 documented as of this encounter
--- OUTSIDE RECORDS SUMMARY | 2024-01-24 15:55 | XMS_ITS | Encounter Summary ---
Author Organization [facility] Address [facility] [place] [address] Care Team Providers Care Mounter Smoking Pipe Name Role Phone Candace Avery APRN Primary Care Provider +1- [phone] Reason for Visit * Reason Comments Coronary Artery Disease Encounter Details Date Type Department Care Team (Late st Contact Info) Description 10/02/2013 1:40 PM EDT Follow-Up Cardiology at [address] [address] Hima Marino MD [facility] [place] [address] CAD (coronary artery disease); Lipid disorder; Hypertension Discharge Disposition: Home Social History Tobacco Use [...] Progress Notes * Hima Marino MD - 10/02/2013 2:36 PM EDT Cardiology Clinic Note History: Corona Romo is a 68 y.o. male presenting for routine office follow up of cardiovascular problems. The patient states that he is now having more difficulty with his right knee from DJD and hehas been seen by Dr. Del Rosario for TKR planning. This planning also occurred last year but the operation never took place. I had ordered a pharmacologic stress using myocardial perfusion imaging at thattime and the study was negative for ischemia or scar. He reports that he has generally been doing well and has lost 90lbs by avoiding snacks and soda. Also, he underwent periumbilical hernia surgery last fall at [facility] and this was complicated by some perioperative [...] talked with the patient about his remote VA and the stable CAD by symptoms. I [...] AM EDT Hospital Encounter [place] [address] Arrived Scheduled Orders Name Type Priority Associated Diagnoses Orde r Schedule EKG 12 Lead ECG Routine CAD (coronary artery disease) Ordered: 10/02/2013 documented as of this encounter Procedures Procedure Name Priority Date/Time Associated Diagnosis Comments EKG 12-LEAD Routine 10/02/2013 2:52 PM EDT CAD (coronary artery disease) documented in this encounter Results * EKG 12 Lead (10/02/2013 2:52 PM EDT) Ventricular rate 55 BPM MUSE SYSTEM Atrial Rate 55 BPM MUSE SYSTEM P-R Interval 148 ms MUSE SYSTEM QRS Duration 94 ms MUSE SYSTEM Q-T Interval 440 ms MUSE SYSTEM QTC Calculated (Bezet) 420 ms MUSE SYSTEM Calculated P [place] 52 degrees MUSE SYSTEM Calculated R [place] -22 degrees MUSE SYSTEM Calculated T [place] 18 degrees MUSE SYSTEM INTERPRETATION Sinus bradycardia Otherwise normal ECG When compared with ECG of 10-AUG-2012 09:31, Nonspecific T wave abnormality, improved in Inferior leads Confirmed by HANNAH, ??JV LYMAN ([id number]) on 10/03/2013 10:55:27 AM MUSE SYSTEM 10/02/2013 2:52 PM EDT 10/03/2013 10:55 AM EDT Hima Marino MD ECG ORDERABLES MUSE SYSTEM documented in this encounter Visit Diagnoses Diagnosis CAD (coronary artery disease) Coronary atherosclerosis of unspecified type of vessel, quechan or graft Lipid disorder Unspecified disorder of lipoid metabolism Hypertension Unspecified essential hypertension documented in this encounter Care Teams Mounter Smoking Pipe Relationship Specialty Start Date End Date Candace Avery, [facility] [address] [facility] [place] [address] PCP - General 04/03/11 01/17/15 documented as of this encounter
--- OUTSIDE RECORDS SUMMARY | 2024-01-24 15:55 | XMS_ITS | Encounter Summary ---
Author Organization [facility] Address [facility] [place] [address] Care Team Providers Care Extension Edger Name Role Phone Candace Avery APRN Primary Care Provider +1- [phone] Encounter Details Date Type Department Care Team (Late st Contact Info) Description 04/06/2011 Orders [place] [address] Chandra Del Rosario MD [facility] [place] [address] S/P TKR (total knee replacement) Social History Tobacco Use Types Packs/Day Years Used Date Smoking Tobacco: Never Assessed Sex and Gender Information Value Date Recorded Sex Assigned at Not on file Gender Identity Not on file Sexual Orientation Not on file documented as of this encounter Plan of Treatment Upcoming Encounters Date Type Department Care Team (Late st Contact Info) Description 03/19/2024 10:00 AM EDT Hospital Encounter Non-Invasive [place] [id number] Arrived documented as of this encounter Visit Diagnoses Diagnosis S/P TKR (total knee replacement) Knee joint replacement by other means documented in this encounter Care Teams Extension Edger Relationship Specialty Start Date End Date Candace Avery APRN [facility] [address] [place] [address] PCP - General 04/03/11 01/17/15 documented as of this encounter
--- OUTSIDE RECORDS SUMMARY | 2024-01-24 15:55 | XMS_ITS | Encounter Summary ---
Author Organization [facility] [place] [address] Care Team Providers Care Cooky Packer Name Role Phone Bennie Candace Blanc APRN Primary Care Provider +1- [phone] Encounter Details Date Type Department Care Team (Late st Contact Info) Description 11/30/2013 11:00 AM EDT Clinical Support Same Day at [facility] [place] [id number] Social History Tobacco Use Types Packs/Day Years [...] 170.8 cm (5' 7.25) 11/30/2013 10:34 AM E DT Body Mass Index 39.02 11/30/2013 10:34 AM EDT documented in this encounter Progress Notes * Sharona Pringle, RN - 11/30/2013 11:53 AM EDT Questionnaire reviewed with patient, no complaints of post-anesthesia complications. 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 No treatment at the time, cardiac cath since was clean. Patient reports an episode of HTN with his surgery, he is on medication at present, but BP is not well controlled. Diabetes with HgbA1C of 6.2. Labs drawn, EKG from 10/11/13. DOS is 12/11/[address] Del Rosario. * Paulina Joy RN - 11/30/2013 11:52 AM EDT Patient seen in Pre Admission Testing. Reviewed Frailty Study consent with patient. Pt had ample time to review consent and ask questions. Reviewed study goals with patient. Consent signed, dated andtimed. Copy of consent was given to patient. Frailty Index assessment done.. Consent scanned into edh. Assessment data entered into [employer] site. All hard copies kept. documented in this encounter Plan of Treatment Upcoming Encounters Date Type Department Care Team (Late st Contact Info) Description 03/19/2024 10:00 AM EDT Hospital Encounter Non[place] [address] Arrived documented as of this encounter Visit Diagnoses Not on filedocumented in this encounter Care Teams Cooky Packer Relationship Specialty Start Date End Date Candace Avery APRN [facility] [address] [facility] [address] PCP - General 04/03/11 01/17/15 documented as of this encounter
--- OUTSIDE RECORDS SUMMARY | 2024-01-24 15:55 | XMS_ITS | Encounter Summary ---
Author Organization [facility] Address [facility] [place] [address] Care Team Providers Care Media Consultant Name Role Phone BennieFavianchaitanya Blanc APRN Primary Care Provider [phone]- [phone] Encounter Details Date Type Department Care Team (Late st Contact Info) Description 12/11/2013 9:58 AM EDT - 12/11/2013 12:26 PM EDT Surgery [place] [address] Juan Jose Del Rosario MD [facility] [place] [address] TOTAL KNEE ARTHROPLASTY (WRVU 19.6) Social History Tobacco Use Types Packs/Day Years [...] The INR should be reported to the [facility] [place] clinic at [phone], and you will be informed of any [...] sennakot, to factilitate a bowel movement. An ykhy-eqd-zdpbmao medication, miralax can also be used if [...] 1. You will have followup appointments at [facility] as indicated in Future Appointments and Orders. [...] discharge to home later today. [facility]. * Obey Beltre PTA - [...] by Juan Jose Del Rosario MD at [facility] MAIN OR Social History: Patient lives [...] treatment: 30 minutes OBEY BELTRE PTA Pager: [phone] * Pb Schroeder PA - 12/14/2013 7:19 AM [...] Rosario MD [facility] None * Obey Beltre MILLER WOOD FLOUR - 12/13/2013 3:45 PM EDT Physical Therapy [...] by Juan Jose Del Rosario MD at [facility] MAIN OR Social History: Patient lives [...] treatment: 40 minutes OBEY BELTRE PTA Pager: [phone] * Juan Jose Del Rosario MD - [...] extremity: Weight bearing as tolerated Wound closure: [place] (remove 10-14 days) Dressing changes: Mepilex [...] was instructed to contact Regional Anesthesia Team ([id number]) for any unresolved sensory or motor deficits. ?? Thank you for the opportunity to have participated in the care of this patient. TRINY PATEL MD Regional Team pager [phone] * Magaly Slaughter RN - 12/12/2013 1:18 [...] preference for vendors. Pt requests referral to [facility] [place] [facility] services as pt familiar with services. We discussed benefits of rehab stay however pt does not feel this needed and hoping to be able to go home with support of VNA services. Will complete referral for [facility], secure FWW and follow. Anticipate d/c [...] Value Range Surgical Pathology Final Report Value: [facility] Provider: JUAN JOSE DEL ROSARIO Pt. Name: LISA ROMO Acc #: [id number] Pt. Col Date: 12/11/2013 /Sex: 1945,(68 years),Male [...] today. Recommendations: Will Remove drain, Meza and MALT ROASTER today Weight bearing status of operative extremity: Weight bearing as tolerated Wound closure: [place] (remove 10-14 days) Dressing changes: Mepilex [...] Pt reports adequatepain control and is using MALT ROASTER button appropriately. at bedside. Will continue to [...] Lisa Romo Patient Age: 68 y.o. Language: Malay Race: White Ethnicity: Not nor Admit date: 12/11/2013 Discharge date and time: 12/14/2013 Attending Physician: Juan Jose Del Rosario MD Discharge Physician: Juan Jose Del Rosario MD Follow-up Recommendations for Providers: See patient discharge instructions for additional details Inpatient Provider Contact Information: Dr. Del Rosario Joints: [phone] After hours and weekends, call [facility] Platform Worker, , and have Orthopedic resident paged. Discharge [...] Primary * Pb Schroeder PA - Physician Crane Operator History of Presentation: The patient is 68 [...] Weight: Wt Readings from Last 1 Encounters: // 113.399 kg (250 lb) Height: Ht Readings [...] Rate: [59-72] Blood Pressure BP: 136/69 mmHg @@ Respiratory Rate Resp: 19 Resp: [16-20] SpO2 SpO2: 97 % @onrfgyla64@ Art BP BP (Arterial Line): -- Functional [...] History Administered Date(s) Administered ??? Pneumococcal Polyvalent 23 09/12/2005 Discharge Medications: Your Medications As of [...] The INR should be reported to the [facility] Ortho clinic at [phone], and you will be informed of any [...] sennakot, to factilitate a bowel movement. An rixc-gln-ubkpsny medication, miralax can also be used if [...] 1. You will have followup appointments at [facility] as indicated in Future Appointments and Orders. [...] AM Juan Jose Del Rosario MD Orthopaedics [phone] None Joint Appt Health Question Three D Ortho Orthopaedics [phone] None Future Orders Please Complete By Expires Referral to Home Health [[id number] CPT(R)] Process Instructions: Scheduling Instructions: Comments: DISCHARGE [...] nurse practitioner, clinical nurse specialist or physician's administrative assistant front desk who is working directly with them, had [...] for home health services. HOME HEALTH AGENCY: [facility]. PHONE: [phone] FAX: [phone] Home care orders for Total Knee Replacements for PT: Fci(SN) eval if indicated on admission visit 1. Draw PT/INR as follows: ( Point of care testing is acceptable) Week of discharge: PER MD/DESIGN EDITOR/CELIA ORDERS. Draw INR on WednesdayDecember 15 and call to ortho anticoagulation clinic for dosing. Thereafter, PT/INR: every Wednesday and PT/INR results to be called and faxed as follows: Wed-Wed Ortho anticoagulation (Coumadin) clinic @ [facility]: ; Sat/Sun: if the PT/INR is drawn on the weekend, call the results to the Orthopedic Resident on callat [phone] for Coumadin dosing 2.Do not lift the edge of the mepilex dressing to observe the incision; this dressing needs to stayin place until 7 days (December 18) after surgery. 3. Suture or Staple removal in 10-14 days (December 25) - PER MD/ACCESS LEAD/PA ORDERS 4. Continue PT rehab for balance, [...] AVERY APRN [address] [place] [address] All A agencies which cover the area of patient's residence have been reviewed, either verbally earl writing, and patient/family have chosen the indicated home health care agency for home services. Questions: Responses: Agency name and contact information [facility] Patient location post discharge home What services are requested Registered Nurse Physical Therapy Start date Responsible MD post discharge contact info PCO Primary Care Provider: CANDACE AVERY APRN [phone] * Plan of Care - Jonathan Graves [...] by Juan Jose Del Rosario MD at [facility] MAIN OR Social History: Patient lives [...] 0 minutes adalbertoal SHEREE RICKS, PT Pager: [phone] * Plan of Care - Jonathan Graves [...] Rosario MD - 12/11/2013 12:44 PM EDT [facility] Operative Note Patient Name: Lisa Romo : [id number] MR#: [id number] Case Date: 12/11/2013 Surgeon: Surgeon(s) and Role: * Juan Jose Del Rosario MD - Primary * Pb Schroeder PA - Physician Crane Operator Preoperative diagnosis: RIGHT TKA Postoperative diagnosis: RIGHT [...] Implant Name Type Inv. Item Serial No. Anodizer Lot No. LRB No. Used Action COMPO,SGM,FEM,PS,CMNT,LUG,R,4 ([id number]) (AUTOREQ) - [id number] IMPLANTS COMPO,SGM,FEM,PS,CMNT,LUG,R,4 ([id number]) (AUTOREQ) [id number] Right 1 Implanted TRAY,TIB,SGM,MOD,CMNT,SZ4 ([id number]) (AUTOREQ) - [id number] IMPLANTS TRAY,TIB,SGM,MOD,CMNT,SZ4 ([id number]) (AUTOREQ) [id number] Right 1 Implanted JEFFERSON,PFC,SGM,OVL,3PG,STD,38MM ([id number]) (AUTOREQ) - [id number] IMPLANTS JEFFERSON,PFC,SGM,OVL,3PG,STD,38MM ([id number]) (AUTOREQ) [id number] Right 1 Implanted CEMENT,BNE,CMW 1,GNTA,40GM ([id number]) - [id number] IMPLANTS CEMENT,BNE,CMW 1,GNTA,40GM ([id number]) [id number] Right 1 Implanted INSER,SGM,STAB,CRSLNK,4X10MM ([id number]) (AUTOREQ) - [id number] IMPLANTS INSER,SGM,STAB,CRSLNK,4X10MM ([id number]) (AUTOREQ) [employer] [facility] [id number] Right 1 Implanted COMPLICATIONS: None. INDICATIONS:The patient [...] mallet. Excess cement was removed with a Hazlet. We then placed the cement onto the anterior and distal aspects of the femur. The cement was placed on the posterior aspect of the prosthetic condyles. The femoral component was then placed and impacted into position. Excess cement was removed with a Hazlet. The polyethylene was then placed and the knee brought out to full extension where it was held for the entire polymerization time. Cement was then pressurized into the patellar bone and the patellar component placed. The patella was clamped. Excess cement was removed with a Hazlet. After all cement had hardened, the knee [...] the anesthesiology staff and transferred to the [facility]. Sequential compression devices were placed. The [...] extremity: Weight bearing as tolerated Wound closure: [place] (remove 10-14 days) Dressing changes: Mepilex [...] AM EDT Hospital Encounter Non-Invasive [place] [address] Arrived documented as of this encounter Procedures [...] POC Glucose 127 60 - 199 mg/dL [facility] [employer] Comment: Supplemental ranges: <110 mg/dL before meals <200 mg/dL all other times of the day Blood specimen (specimen) 12/14/2013 11:35 AM EDT 12/14/2013 11:35 AM EDT Juan Jose Del Rosario MD POINT OF CARE TEST O MIKE Performing Organization Address [facility] Co de Phone Number [facility] [employer] * POCT Glucose (12/14/2013 7:12 AM EDT) POC Glucose 156 60 - 199 mg/dL [facility] Comment: Supplemental ranges: <110 mg/dL before meals <200 mg/dL all other times of the day Blood specimen (specimen) 12/14/2013 7:12 AM EDT 12/14/2013 7:12 AM EDT Juan Jose Del Rosario MD POINT OF CARE TEST O RDERATRAN Performing Organization Address [facility]/State/ZIP Co de Phone Number [facility] [employer] * POCT Glucose (12/14/2013 4:37 AM EDT) [facility] POC Glucose 144 60 - 199 mg/dL [facility]EN[facility] Comment: Supplemental ranges: <110 mg/dL before meals <200 mg/dL all other times of the day Blood specimen (specimen) 12/14/2013 4:37 AM EDT 12/14/2013 4:37 AM EDT Juan Jose Del Rosario MD POINT OF CARE TEST O RDERABLES [facility] * Nucleated Red Blood Cells (12/14/2013 4:00 AM EDT) [facility] nRBC % Auto 0.0 0.0 - 0.2 % CERNER MILLENNIUM nRBC Abs Auto 0.000 0.000 - 0.012 x10(3)/mcL CERNER MILLENNIUM Blood specimen (specimen) 12/14/2013 4:00 AM EDT 12/14/2013 4:35 AM EDT Narrative Resulting Agency Comment Spec In Lab Juan Jose Del Rosario MD HEMATOLOGY ORDERABLE S Performing Organization Address [facility] de Phone Number [facility] * (ABNORMAL) Differential, Automated (12/14/2013 4:00 AM EDT) [facility] Neutrophils % 74.9(H) 34.0 - 71.0 % [...] MD HEMATOLOGY ORDERABLE S Performing Organization Address [facility] Co de Phone Number [facility] * (ABNORMAL) Prothrombin Time (12/14/2013 4:00 AM EDT) PT 17.2(H) 12.0 - 15.0 sec CERNER MILLENNIUM Comment: [facility] Transfusion Committee Guidelines: INR less than 2.0, [...] MD HEMATOLOGY ORDERABLE S Performing Organization Address [facility] Co de Phone Number [facility] * (ABNORMAL) Basic Metabolic Panel (non-fasting) (12/14/2013 4:00 AM EDT) Glucose Lvl 151 60 - 199 mg/dL [facility] MILLENNIUM Comment:Diabetes: >=200 mg/d L plus symptoms BUN 13 10 - 20 mg/dL [facility]ERN[facility] MILLENNIUM Creatinine 1.04 0.80 - 1.50 mg/dL [facility]ERNER MILLENNIUM Comment: Please note that the pediatric reference intervals supplied above were not validated at [facility]. Results from pediatric patients [...] Rosario MD CHEMISTRY ORDERABLES Performing Organization Address [facility] Co de Phone Number [facility] * POCT Glucose (12/13/2013 11:59 PM EDT) POC Glucose 133 60 - 199 mg/dL [facility] Comment: Supplemental ranges: <110 mg/dL before meals <200 mg/dL all other times of the day Blood specimen (specimen) 12/13/2013 11:59 PM EDT 12/13/2013 11:59 PM EDT Juan Jose Del Rosario MD POINT OF CARE TEST O RDERABLES Performing Organization Address [facility] Co de Phone Number [facility] * POCT Glucose (12/13/2013 8:23 PM EDT) POC Glucose 125 60 - 199 mg/dL [facility] Comment: Supplemental ranges: <110 mg/dL before meals <200 mg/dL all other times of the day Blood specimen (specimen) 12/13/2013 8:23 PM EDT 12/13/2013 8:23 PM EDT Juan Jose Del Rosario MD POINT OF CARE TEST O RDERATRAN Performing Organization Address [facility] de Phone Number [facility] * POCT Glucose (12/13/2013 5:08 PM EDT) POC Glucose 150 60 - 199 mg/dL [facility] Comment: Supplemental ranges: <110 mg/dL before meals <200 mg/dL all other times of the day Blood specimen (specimen) 12/13/2013 5:08 PM EDT 12/13/2013 5:08 PM EDT Juan Jose Del Rosario MD POINT OF CARE TEST O MÓNICAERATRAN Performing Organization Address [facility] de Phone Number [facility] * POCT Glucose (12/13/2013 11:54 AM EDT) POC Glucose 135 60 - 199 mg/dL [facility] Comment: Supplemental ranges: <110 mg/dL before meals <200 mg/dL all other times of the day Blood specimen (specimen) 12/13/2013 11:54 AM EDT 12/13/2013 11:54 AM EDT Juan Jose Del Rosario MD POINT OF CARE TEST O MÓNICAERATRAN Performing Organization Address [facility] de Phone Number [facility] * POCT Glucose (12/13/2013 7:51 AM EDT) POC Glucose 168 60 - 199 mg/dL [facility] Comment: Supplemental ranges: <110 mg/dL before [...] (ABNORMAL) Differential, Automated (12/13/2013 3:25 AM EDT) Pathologist [facility] Neutrophils % 70.2 34.0 - 71.0 % [...] MD HEMATOLOGY ORDERABLE S Performing Organization Address [facility]/ZIP Co de Phone Number CERNER MILLENNIUM * [...] MD HEMATOLOGY ORDERABLE S Performing Organization Address City/State/[facility] Co de Phone Number CERNER MILLENNIUM * (ABNORMAL) Prothrombin Time (12/13/2013 3:25 AM EDT) PT 16.1(H) 12.0 - 15.0 sec CERNER MILLENNIUM Comment: [facility] Transfusion Committee Guidelines: INR less than 2.0, [...] intervals supplied above were not validated at [facility]. Results from pediatric patients [...] Rosario MD CHEMISTRY ORDERABLES Performing Organization Address [facility] de Phone Number [email or web address] * POCT Glucose (12/13/2013 12:01 AM EDT) POC Glucose 147 60 - 199 mg/dL [facility] [employer] Comment: Supplemental ranges: <110 mg/dL before meals <200 mg/dL all other times of the day Blood specimen (specimen) 12/13/2013 12:01 AM EDT 12/13/2013 12:01 AM EDT Juan Jose Del Rosario MD POINT OF CARE TEST O RDERABLES Performing Organization Address [facility] de Phone Number [facility] [employer] * POCT Glucose (12/12/2013 8:11 PM EDT) POC Glucose 172 60 - 199 mg/dL [email or web address] Comment: Supplemental ranges: <110 mg/dL before meals <200 mg/dL all other times of the day Blood specimen (specimen) 12/12/2013 8:11 PM EDT 12/12/2013 8:11 PM EDT Juan Jose Del Rosario MD POINT OF CARE TEST O RDERABLES Performing Organization Address [facility] de Phone Number [facility] BEDOY[facility] * (ABNORMAL) POCT Glucose (12/12/2013 6:47 PM EDT) POC Glucose 234(H) 60 - 199 mg/dL [email or web address] Comment: Supplemental ranges: <110 mg/dL before meals <200 mg/dL all other times of the day Blood specimen (specimen) 12/12/2013 6:47 PM EDT 12/12/2013 6:47 PM EDT Juan Jose Del Rosario MD POINT OF CARE TEST O MIKE Performing Organization Address [facility] de Phone Number [facility] * (ABNORMAL) POCT Glucose (12/12/2013 4:44 PM EDT) POC Glucose 255(H) 60 - 199 mg/dL [facility] [employer] Comment: Supplemental ranges: <110 mg/dL before meals <200 mg/dL all other times of the day Blood specimen (specimen) 12/12/2013 4:44 PM EDT 12/12/2013 4:44 PM EDT Juan Jose Del Rosario MD POINT OF CARE TEST O MIKE Performing Organization Address [facility] de Phone Number [facility] * POCT Glucose (12/12/2013 11:49 AM EDT) POC Glucose 167 60 - 199 mg/dL [facility] [employer] [facility] Comment: Supplemental ranges: <110 mg/dL before meals <200 mg/dL all other times of the day Blood specimen (specimen) 12/12/2013 11:49 AM EDT 12/12/2013 11:49 AM EDT Juan Jose Del Rosario MD POINT OF CARE TEST O MÓNICAERATRAN Performing Organization Address [facility] de Phone Number [facility] * POCT Glucose (12/12/2013 7:14 AM EDT) POC Glucose 146 60 - 199 mg/dL [facility] [employer] Comment: Supplemental ranges: <110 mg/dL before [...] 12.0 - 15.0 sec CERNER MILLENNIUM Comment: [facility] Transfusion Committee Guidelines: INR less than 2.0, [...] Del Rosario MD HEMATOLOGY ORDERABLE S [facility] * (ABNORMAL) Hemoglobin A1c (12/12/2013 4:20 AM EDT) Hemoglobin A1C 7.0(H) <=5.6 % [facility] Comment: As of 2013 the [...] 1, S67-74 Est Avg Gluc 154 mg/dL [facility] Comment: eAG equivalents for HbA1c percentages: HbA1c(%) ?eAG(mg/dL) 6.0 ?126 6.5 ?140 7.0 ?154 7.5 ?169 8.0 ?183 8.5 ?197 9.0 ?212 9.5 ?226 10.0 ? 240 Limitations: The eAG calculation has not been validated on women, individuals below 18 years old and above 70 years old, and individuals with hemoglobinopathies. Additional resources are available on the ADA website: ??http://professional.diabetes.org/glucosecalculator.aspx Josse Degroot J, Brien R, et al. ??Translating the A1C assay into estimated average glucose values. ??Diabetes Care 2008:31(8):3751-2976. Blood specimen (specimen) 12/12/2013 4:20 AM EDT [...] intervals supplied above were not validated at [facility]. Results from pediatric patients [...] Rosario MD CHEMISTRY ORDERABLES Performing Organization Address [facility] de Phone Number [facility] * POCT Glucose (12/12/2013 3:58 AM EDT) POC Glucose 172 60 - 199 mg/dL [email or web address] Comment: Supplemental ranges: <110 mg/dL before meals <200 mg/dL all other times of the day Blood specimen (specimen) 12/12/2013 3:58 AM EDT 12/12/2013 3:58 AM EDT Juan Jose Del Rosario MD POINT OF CARE TEST O RDERABLES Performing Organization Address [facility] de Phone Number [facility] B[facility]OY[facility] * POCT Glucose (12/12/2013 12:19 AM EDT) POC Glucose 131 60 - 199 mg/dL [facility] [employer] [facility] Comment: Supplemental ranges: <110 mg/dL before meals <200 mg/dL all other times of the day Blood specimen (specimen) 12/12/2013 12:19 AM EDT 12/12/2013 12:19 AM EDT Juan Jose Del Rosario MD POINT OF CARE TEST O RDERABLES Performing Organization Address [facility] de Phone Number [facility] B[facility] * (ABNORMAL) POCT Glucose (12/11/2013 8:02 PM EDT) POC Glucose 238(H) 60 - 199 mg/dL [facility] [employer] Comment: Supplemental ranges: <110 mg/dL before meals <200 mg/dL all other times of the day Blood specimen (specimen) 12/11/2013 8:02 PM EDT 12/11/2013 8:02 PM EDT Juan Jose Del Rosario MD POINT OF CARE TEST O MIKE Performing Organization Address City/[facility]/ZIP Co de Phone Number [facility] * POCT Glucose (12/11/2013 4:43 PM EDT) POC Glucose 135 60 - 199 mg/dL [facility] Comment: Supplemental ranges: <110 mg/dL before meals <200 mg/dL all other times of the day Blood specimen (specimen) 12/11/2013 4:43 PM EDT 12/11/2013 4:43 PM EDT Juan Jose Del Rosario MD POINT OF CARE TEST O MÓNICAERATRAN Performing Organization Address [facility] Co de Phone Number [facility] * Surgical Pathology Report (12/11/2013 1:03 PM EDT) Surgical Pathology Report ? [facility] ? Provider: ?? JUAN JOSE DEL ROSARIO ?? Pt. Name: ?? LISA ROMO ? Acc #: ?[id number] ?Pt. ? Col Date: ?? 12/11/2013 ?/Sex: ?1945,(68 years),Male ? Rec Date: ?? 12/11/2013 ?LOC: ?3WST ? SURGICAL PATHOLOGY ? ---Pathologic Diagnosis--- ? A - Articular bone and soft tissue consistent with osteoarthritis, right ? knee. ?Gross surgical pathology examination. ? CR-0 ? 12/11/13 ? PPS ? 12/11/13 Verified by: ? Black DO, Yary C. [...] ? Clinical Diagnosis: ? DJD right knee [facility] 12/11/2013 1:03 PM EDT Juan Jose Del Rosario MD PATHOLOGY/CYTOLOGY O RDERATRAN [facility] * POCT Glucose (12/11/2013 1:02 PM EDT) POC Glucose 105 60 - 199 mg/dL [facility] Comment: Supplemental ranges: <110 mg/dL before [...] EDT 12/11/2013 11:25 AM EDT Narrative [facility] CANA[facility] - 12/11/2013 11:25 AM EDT Specimen requisition ordered. ??Separate Pathology report to follow Juan Jose Del Rosario MD PATHOLOGY/CYTOLOGY O MIKE [facility] * POCT Glucose (12/11/2013 8:46 AM EDT) POC Glucose 143 60 - 199 mg/dL [facility] Comment: Supplemental ranges: <110 mg/dL before meals <200 mg/dL all other times of the day Blood specimen (specimen) 12/11/2013 8:46 AM EDT 12/11/2013 8:46 AM EDT Juan Jose Del Rosario MD POINT OF CARE TEST O MIKE Performing Organization Address [facility] Co de Phone Number [facility] CANA[facility] documented in this encounter Visit Diagnoses Not on filedocumented in this encounter Administered Medications Inactive Administered Medications - up to 3 most recent administrations Medication Order MAR Action Action Date Dose Rate Site bacitracin injection ONCE PRN, Starting on Wed12/11/13 at 1133, Until Wed12/11/13 at 1432, Intra-Operative (Intra-Procedure), Routine Given 12/11/2013 11:33 AM EDT 50,000 Units 19- Surgical Site documented in this encounter Active and Recently Administered Medications Times are shown in EDT. Scheduled Medication Order 12/12/2013 12/13/2013 12/14/2013 acetaminophen (TYLENOL) tablet 1,000 mg 1,000 mg, Oral, EVERY 8 HOURS SCHEDULED, First dose on Wed12/11/13 at 1630, Until Discontinued, Maximum dose of acetaminophen is 4000 mg from all sources in 24 hours., Routine 0507 (Given - Provider: Jonathan Graves, MARY)1446 (Given - Provider: Isela Ogden, MARY)2122 (Given - Provider: Jonathan Graves, MARY) 0504 (Given - Provider: Jonathan Graves RN)1336 (Given - Provider: Jenni Burden, MARY)2212 (Given - Provider: Layne Logan, RN) 0549 (Given - Provider: Layne Logan, MARY)1332 (Given - Provider: Apoorva Easley RN) amLODIPine (NORVASC) tablet 2.5 mg (CANCELED) 2.5 mg, Oral, DAILY, First dose on Wed12/11/13 at 1800, Until Discontinued, Routine 0824 (Given - Provider: Isela Ogden RN) 0830 (Given - Provider: Jenni Burden RN) 0839 [...] RN)2043 (Given - Provider: Jonathan Graves RN) 0831 (Given - Provider: Jenni Burden RN)2212 (Given - Provider: Layne Logan RN) 0839 [...] Prophylaxis 0258 (New Bag - Provider: Jonathan Graves, RN)1050 (New Bag - Provider: Isela Ogden [...] on Wed12/11/13 at 1800, Until Discontinued, Routine 0826 (Given - Provider: Isela Ogden RN) 0831 (Given - Provider: Jenni Burden, MARY) 0839 (Given - Provider: Apoorva Easley RN) ferrous sulfate EC tablet 325 mg (CANCELED) 325 mg, Oral, 2 TIMES DAILY, First dose on Wed12/11/13 at 2100, Until Discontinued, Take with food or a glass of water, Routine 0825 (Given - Provider: Isela Ogden RN)2042 (Given - Provider: Jonathan Graves RN) 0832 (Given - Provider: Jenni Burden, MARY)221 (Given - Provider: Layne Logan, MARY) 0839 (Given - Provider: Apoorva Easley, MARY) furosemide (LASIX) tablet 80 mg (CANCELED) 80 mg, Oral, 2 TIMES DAILY, First dose on Wed12/12/13 at 0900, Until Discontinued, Routine 0826 (Given - Provider: Isela Ogden, MARY)2042 (Given - Provider: Jonathan Graves, MARY) 0835 [...] RN)2044 (Given - Provider: Jonathan Graves RN) 0015 (Given - Provider: Jonathan Graves [...] Burden RN) 0840 (Given - Provider: Apoorva Easley, MARY) metFORMIN (GLUCOPHAGE) tablet 1,000 mg (CANCELED) 1,000 mg, Oral, 2 TIMES DAILY WITH MEALS, First dose on Wed12/11/13 at 1700, Until Discontinued, Routine 0825 (Given - Provider: Isela Ogden RN)165 (Given - Provider: Isela Ogden RN) 0833 (Given - Provider: Jenni Burden, MARY)1733 (Given - Provider: Jenni Burden, MARY) 0730 [...] RN) 0832 (Given - Provider: Jenni Burden, MARY)222 (Given - Provider: Layne Logan, MARY) 0840 (Given - Provider: Apoorva Easley RN) multivitamin Uaqf-Lw-MP-Min (THERAPEUTIC-M) 27-0.4 mg tablet 1 tablet (CANCELED) 1 tablet, Oral, DAILY, First dose on Wed12/11/13 at 1800, Until Discontinued 08 (Given - Provider: Isela Ogden RN) 0834 (Given - Provider: Jneni Burden, MARY) 0840 (Given - Provider: Apoorva Easley, MARY) penicillin v potassium (VEETID) tablet 500 mg (CANCELED) 500 mg, Oral, 2 TIMES DAILY, First dose on Wed12/11/13 at 2100, Until Discontinued, Routine, Indication for (Active or Suspected): Other (See comment) 0825 (Given - Provider: Isela Ogden RN)2041 (Given - Provider: Jonathan Graves RN) 0834 (Given - Provider: Jenni Burden, MARY)222 (Given - Provider: Layne Logan RN) 0840 (Given - Provider: Apoorva Easley RN) polyethylene glycol (MIRALAX) packet 17 g 17 g, Oral, 2 TIMES DAILY, First dose on Wed12/11/13 at 2100, Until Discontinued, Administer if needed per patient's routine or if no bowel movement within 48 hours, Routine 0828 (Given - Provider: Isela Ogden, RN)2040 (Given - Provider: Jonathan Graves, MARY) 08 (Given - Provider: Jenni Burden, RN)221 (Not Given - Provider: Layne Logan, RN - Reason: Patient/family refused) 0840 (Given [...] 08 (Given - Provider: Jenni Burden, MARY)221 (Given [...] Unit), Routine 0828 (Given - Provider: Isela Ogden, RN)204 (Given - Provider: Jonathan Graves, MARY) 0835 (Given - Provider: Jenni Burden, MARY)2214 (Given - Provider: Layne Logan, RN) 0840 (Given - Provider: Apoorva Easley [...] at 2000, Until Lacey 12/14/13 at 1626 2001 (New Bag - Provider: Layne Logan, MARY)2200 (Stopped - Provider: Layne Logan, MARY) PRN Medication Order 12/12/2013 12/13/2013 12/14/2013 albuterol (PROVENTIL HFA;VENTOLIN HFA) 90 mcg/actuation inhaler 2 puff (CANCELED) 2 puff, Inhalation, EVERY 4 HOURS PRN, Starting on Wed12/11/13 at 1539, Until Lacey 12/14/13 at 1626, Wheezing, Routine 1050 (Given - Provider: Isela Ogden RN) 0455 (Given - Provider: Layne Logan, [...] Logan RN)0922 (See Alternative - Provider: Apoorva Easley, MARY)1332 (See Alternative - Provider: Apoorva Easley, MARY) oxyCODONE (ROXICODONE) immediate release tablet 5 mg(Linked Group 1) 5 mg, Oral, EVERY 4 HOURS PRN, Starting on 12/11/13 at 1302, Until Lacey 6 at 1626, Pain, mild pain, For Mild pain. Do not exceed 15 mg in 4 hours. If pain not relieved, call provider, Routine 0420 (See Alternative - Provider: Jonathan Graves, MARY)0920 (See Alternative - Provider: Isela Ogden, RN)1446 (See Alternative - Provider: Isela Ogden, RN)2122 (See Alternative - Provider: Jonathan Graves, MARY) 0836 (See Alternative - Provider: Jenni Burden, MARY)1316 (See Alternative - Provider: Jenni Burden, MARY)1733 (See Alternative - Provider: Jenni Burden, RN)2219 (Given - Provider: Layne Logan RN) 0242 (Given - Provider: Layne Logan RN)0922 (Given - Provider: Apoorva Easley, MARY)1332 (Given - Provider: Apoorva Easley RN) Linked Groups Order Group 1: oxyCODONE (ROXICODONE) [...] Routine documented in this encounter Care Teams Media Consultant Relationship Specialty Start Date End Date Candace Avery APRN [facility] [address] [place] [address] PCP - General 04/03/11 01/17/15 documented as of this encounter
--- OUTSIDE RECORDS SUMMARY | 2024-01-24 15:55 | XMS_ITS | Encounter Summary ---
Author Organization [facility] Address [facility] [place] [address] Care Team Providers Care Insulation Cupola Operator Name Role Phone Felipe Tripp MD Primary Care Provider [phone] Encounter Details Date Type Department Care Team (Late st Contact Info) Description 08/06/2010 1:30 PM EST Follow-Up Nephrology [place] [address] Dax Oliver MD [facility] [place] [address] Discharge Disposition: Home Social History Tobacco Use [...] AM EDT Hospital Encounter [place] [address] Arrived documented as of this encounter Visit Diagnoses Not on filedocumented in this encounter Care Teams Insulation Cupola Operator Relationship Specialty Start Date End Date Felipe Tripp MD PCP - General 06/03/10 04/02/11 documented as of this encounter
--- OUTSIDE RECORDS SUMMARY | 2024-01-24 15:55 | XMS_ITS | Encounter Summary ---
Author Organization [facility] Address [facility] [place] [address] Care Team Providers Care Instructional Support Assistant Name Role Phone Candace Avery APRN Primary Care Provider [phone] Encounter Details Date Type Department Care Team (Late st Contact Info) Description 09/09/2012 9:16 AM EST - 09/09/2012 11:59 PM [facility] Hospital [place] [address] Social History Tobacco Use Types Packs/Day Years [...] AM EDT Hospital Encounter Non[place] [address] Arrived documented as of this encounter Visit Diagnoses Not on filedocumented in this encounter Care Teams Instructional Support Assistant Relationship Specialty Start Date End Date Candace Avery APRN [facility] [address] [place] [address] PCP - General 04/03/11 01/17/15 documented as of this encounter
--- OUTSIDE RECORDS SUMMARY | 2024-01-24 15:55 | XMS_ITS | Encounter Summary ---
Author Organization [facility] Address [facility] [place] [address] Care Team Providers Care Dispatcher Relay Name Role Phone Candace Avery MELISSA Primary Care Provider [phone] Encounter Details Date Type Department Care Team (Late st Contact Info) Description 05/30/2012 Orders [place] [id number] Chandra Del Rosario MD [facility] DR [place] [address] Right knee pain (Primary Dx) Social History [...] AM EDT Hospital Encounter [place] [address] Arrived documented as of this encounter Results [...] leg documented in this encounter Care Teams Dispatcher Relay Relationship Specialty Start Date End Date Candace Avery APRN [facility] [address] [place] [address] PCP - General 04/03/11 01/17/15 documented as of this encounter
--- OUTSIDE RECORDS SUMMARY | 2024-01-24 15:55 | XMS_ITS | Encounter Summary ---
Author Organization [facility] Address [facility] [place] [address] Care Team Providers Care Briquette Machine Operator Helper Name Role Phone Candace Avery APRN Primary Care Provider [phone] Reason for Visit * Reason Comments Coronary Artery Disease follow up of CV issues Encounter Details Date Type Department Care Team (Late st Contact Info) Description 06/01/2012 3:10 PM EST Follow-Up Cardiology at [address] [address] Hima Marino MD [facility] [address] CAD (coronary artery disease) (Primary Dx); Hypertension; Lipid disorder; Myocardial infarction, old Discharge Disposition: Home Social History Tobacco Use [...] EST Pulse 74 06/01/2012 3:08 PM EST irreg ular Temperature - - Respiratory Rate - - Oxygen Saturation 97% 06/01/2012 3:08 PM EST RA Inhaled Oxygen Concentration - - Weight 126.6 kg (279 lb) 06/01/2012 3:08 PM EST Height 175.3 cm (5' 9) 06/01/2012 3:08 PM EST Body Mass Index 41.2 06/01/2012 3:08 PM EST documented in this encounter Progress Notes * Hima Marino MD - 06/01/2012 3:51 PM [...] of congestion on his lungs last winter andthis seemed to respond to a course of antibiotics. He denies chest pain or pressure, PND, orthopnea, presyncope or syncope. Meds as below. He is using his CPAP mask nightly but his does comment that he dreams and is sometimes agitated during the dreams. Allergies as of 06/01/2012 ??? [...] talked with the patient about his remote GA and the apparently stable CAD by symptoms. [...] this is being addressed by his PCP. Clearly,weight loss would help him considerably but this [...] AM EDT Hospital Encounter [place] [address] Arrived documented as of this encounter Procedures Procedure Name Priority Date/Time Associated Diagnosis Comments EKG 12-LEAD Routine 06/01/2012 3:27 PM EST CAD (coronary artery disease) documented in this encounter Results * EKG 12 Lead (06/01/2012 3:27 PM EST) Ventricular rate 69 BPM MUSE SYSTEM Atrial Rate 69 BPM MUSE SYSTEM P-R Interval 156 ms MUSE SYSTEM QRS Duration 76 ms MUSE SYSTEM Q-T Interval 396 ms MUSE SYSTEM QTC Calculated (Bezet) 424 ms MUSE SYSTEM Calculated P [place] 86 degrees MUSE SYSTEM Calculated R [place] -32 degrees MUSE SYSTEM Calculated T [place] -32 degrees MUSE SYSTEM INTERPRETATION Sinus rhythm with Premature atrial complexes Left axis deviation Nonspecific ST abnormality Abnormal ECG When compared with ECG of 15-JAN-2010 10:05, Premature atrial complexes are now Present ST now depressed in Inferior leads Inverted T waves have replaced nonspecific T wave abnormality in Inferior leads Confirmed by MD Chanel, Ishan ([id number]) on 06/02/2012 12:24:04 PM MUSE SYSTEM 06/01/2012 3:27 PM EST 06/02/2012 12:24 PM EST Hima Marino MD ECG ORDERABLES MUSE SYSTEM documented in this encounter Visit Diagnoses Diagnosis CAD (coronary artery disease)- Primary Coronary atherosclerosis of unspecified type of vessel, [place] or graft Hypertension Unspecified essential hypertension Lipid disorder Unspecified disorder of lipoid metabolism Myocardial infarction, old Old myocardial infarction documented in this encounter Care Teams Briquette Machine Operator Helper Relationship Specialty Start Date End Date Candace Avery APRN [facility] [address] [place] [address] PCP - General 04/03/11 01/17/15 documented as of this encounter
--- OUTSIDE RECORDS SUMMARY | 2024-01-24 15:55 | XMS_ITS | Encounter Summary ---
Author Organization [facility] Address [facility] [place] [address] Care Team Providers Care Incendiary Powder Mixer Name Role Phone Candace Avery MELISSA Primary Care Provider +1- [phone] Encounter Details Date Type Department Care Team (Late st Contact Info) Description 12/11/2013 10:44 AM EDT Anesthesia Event [place] [address] Thaddeus Angela MD [facility] [place] [address] Anesthesia Record Procedure Summary Procedure Name Responsible Anesthesiologist Anesthesia Start Time Anesthesia Stop Time TOTAL KNEE ARTHROPLASTY (WRVU 19.6) (Right: Knee) Thaddeus Angela MD 12/11/13 1044 12/11/13 1301 Events Date Time Event Comment 12/11/2013 0851 1044 Start 1046 AN Verify 1049 An Start Data 1055 Spinal 1058 Anesthesia Ready 1124 An Tourn Inflated 1125 Skin Incision 1213 An Tourn Deflated 1243 Procedure Stop 1250 an stop data 1301 Stop Meds Name Total propofol INF 500.59 mg ceFAZolin 2 g tranexamic acid (TXA) 1,660 mg lactated ringers infusion 1,000 mL 0 mL * Agents Name O2 Air O2 Auxiliary Flowmeter 1 * Blood No blood administrations on file. Lines, Drains, and Airways Type Details Placement Removal Drain/Device Site 12/11/13; Right; kne e; collapsible closed device; 12/12/13 (removed by other) 12/11/13 0000 by Ana Rodriguez RN 12/12/13 0000 by Isela Ogden RN Incision 12/11/13; knee; 03/09/22 (LDA cleanup utility RA#[id number]); 1715 (LDA cleanup utility RA#[id number]) 12/11/13 0000 by Ana Rodriguez RN 03/09/22 1715 by Patric Monroe Urethral Catheter 12/11/13; indwelling double lumen catheter; 100% silicone, hydrophilic coated; 12; inserted at this facility; 2; 5; 10; none; drainage bag to dependent drainage; met resistance half way in. touch of blood on 16 F cath tip. Switched to 12 F Per MD. No resistance (Urine blood tinged after insertion. MD aware.); 12/13/13; 1402 12/11/13 0000 by Ana Rodriguez RN 12/13/13 1402 by Jenni Banuelos RN (RETIRED) Peripheral IV Line - Single Lumen 12/11/13; 0854; metacarpal vein (top of hand), left; [id number] catheter system; 18 gauge, 1 in length; Shelli Pabon,MARY; intradermal injection, tolerated well; 0; 12/13/13; 212712/11/13 0854 by Shelli Pabon RN 12/13/132127 by Sangita Quiñones RN documented in this encounter Social History [...] OR Notes * Anesthesia Postprocedure Evaluation - Thaddeus Angela MD [...] tolerated the procedure well Fluid Status: normal * Anesthesia Procedure Notes - Felipe Vee MD [...] benefits were reviewed. The anesthetic consent was obtained.The medical history and chart were reviewed. The [...] Thaddeus Angela Supervising Attending/Fellow: Thaddeus Angela ~~~~~~~~~~~~~~~~~~~~~~~~~~~~~~~~~~~~~~~~~~~~~~~~~~~~~~~~~~~~ * Anesthesia Preprocedure Evaluation - Thaddeus Angela MD [...] Pulmonary Assessment: pulmonary exam normal [place] [facility] [place] Plan: ASA 3 spinal and regional, with a(n) intravenous induction Mr. Romo is a 68 year old male with PMHx of obesity, CAD with h/o GA (negative catheterization in 1998; stress test in 09/2012 normal), DMII (on metformin), HTN (on losartan, nebivolol, amlodipine andLasix), HLD (on Lipitor), h/o alcoholism in the remote past, depression (on Wellbutrin, pt admittedfor SI in 1996 - well controlled at present), RJ and OA who presents for TKA. Pt has NKDA. Laboratory values reviewed: Hg 13.4, plt count 213, Cr 1.16. Antibody screen negative.ECG illustrates HR of 55 and improved nonspecific T wave abnormalities in the inferior leads when compared to previous ECG. Plan for preoperative Tylenol, gabapentin,SAB and a regional nerve block for post-operative analgesia. GA with ETT and arterial line for back-up. Patient is appropriately NPO. Region - Other Informed Consent: Anesthetic plan and risks discussed with patient and spouse. Plan discussed with ELECTROTYPE FINISHER[place] [facility] [place] Assessment: documented in this encounter Plan of Treatment Upcoming Encounters Date Type Department Care Team (Late st Contact Info) Description 03/19/2024 10:00 AM EDT Hospital Encounter [place] [phone] Arrived documented as of this encounter Procedures Procedure Name Priority Date/Time Associated Diagnosis Comments ANESTHESIA BLOCK Routine 12/11/2013 12:4 3 PM EDT documented in this encounter Results * ANE NEURAXIAL UPDATED (12/11/2013 12:43 PM EDT) [...] benefits of the anesthetic block were reviewed. ??The risks of infection, bleeding, local anesthetic toxicity, and nerve injury were discussed. ??Specifically, the approximate risk of nerve injury (07/2999-07/4999) including neuropathy, loss of sensation and motor function, whether permanent or temporary, was discussed as well as the fact that post-surgical nerve injury can be unrelated to the actual injection and may be related to intra-operative issues such as positioning and tourniquet usage. ?? The anesthetic consent [...] needle Ropivicaine 0.5% 30 mL Performed by: ??Nanda Supervising Attending/Fellow: ??Angela ~~~~~~~~~~~~~~~~~~~~~~~~~~~~~~~~~~~~~~~~~~~~~~~~~~~~~~~~~~~~ Procedure: ?? Neuraxial Block Primary Anesthetic Type: Spinal The patient was greeted; the risks and benefits were reviewed. ?? The anesthetic consent was obtained. ??The medical history and chart were reviewed. ??The timeout was performed. Start time: 12/11/2013 10:47 [...] by: ??Thaddeus Angela Supervising Attending/Fellow: ??Thaddeus Angela ~~~~~~~~~~~~~~~~~~~~~~~~~~~~~~~~~~~~~~~~~~~~~~~~~~~~~~~~~~~~ Procedure Note Felipe Vee MD - 12/11/2013 9:16 AM EDT Procedure: Right Adductor canal block Block: Post-op Pain Control, saphenous nerve block/mid thigh Start time: 12/11/2013 9:04 AM End time: 12/11/2013 9:16 AM This patient was greeted in the block room and the risks and benefits ofthe anesthetic block were reviewed. The risks of infection, bleeding,local anesthetic toxicity, and nerve injury were discussed. Specifically,the approximate risk of nerve injury (07/2999-07/4999) including neuropathy,loss of sensation and motor function, whether permanent or temporary, wasdiscussed as well as the fact that post- surgical nerve injury can beunrelated to the actual injection and may be related to intra-operativeissues such as positioning and tourniquet usage. The anesthetic consentwas obtained. The timeout was performed prior to procedure start.Standard ASA monitors were applied. Indication/Prep Position: supine [...] greeted; the risks and benefits were reviewed. Theanesthetic consent was obtained. The medical history and chart werereviewed. The timeout was performed. Start time: 12/11/2013 10:47 AM End time: 12/11/2013 10:55 AM Patient Location: Operating Room Patient Prep Position: Sitting Prep: Hand Hygiene, Hat, Mask, Sterile Gloves, Chlorhexidine and PatientDraped Injection technique: single-shot Skin Anesthetic Lidocaine 1% 5 ml Procedure Technique Level of needle insertion: L4-5 Needle approach: midline Needle Type: [facility] Gauge: 25 Needle length: 5 in Needle insertion depth when ANA achieved: 5 cm Number of attempts: 1 Intrathecal Injection The patient received the following medication/s as an intrathecalinjection: Bupivacaine 0.75% w dextrose 2 ml Epinephrine Epi Wash Events/Notes Events: None Performed by: Thaddeus Angela Supervising Attending/Fellow: Thaddeus Angela ~~~~~~~~~~~~~~~~~~~~~~~~~~~~~~~~~~~~~~~~~~~~~~~~~~~~~~~~~~~~ Forrest Norton [facility] TAR PROCESSING TECHNICIAN C [facility]GS * Anesthesia Block (12/11/2013 12:43 PM EDT) Felipe Michael MD - 12/11/2013 12:43 PM EDT Felipe Vee MD ? 12/11/2013 12:43 PM Procedure: ??Right Adductor canal block Block: Post-op Pain Control, saphenous nerve block/mid thigh Start time: 12/11/2013 9:04 AM End time: 12/11/2013 9:16 AM This patient was greeted in the block room and the risks and benefits of the anesthetic block were reviewed. ??The risks of infection, bleeding, local anesthetic toxicity, and nerve injury were discussed. ??Specifically, the approximate risk of nerve injury (07/2999-07/4999) including neuropathy, loss of sensation and motor function, whether permanent or temporary, was discussed as well as the fact that post-surgical nerve injury can be unrelated to the actual injection and may be related to intra-operative issues such as positioning and tourniquet usage. ?? The anesthetic consent [...] needle Ropivicaine 0.5% 30 mL Performed by: ??Nanda Supervising Attending/Fellow: ??Julio César ~~~~~~~~~~~~~~~~~~~~~~~~~~~~~~~~~~~~~~~~~~~~~~~~~~~~~~~~~~~~ Procedure: ?? Neuraxial Block Primary Anesthetic Type: Spinal The patient was greeted; the risks and benefits were reviewed. ?? The anesthetic consent was obtained. ??The medical history and chart were reviewed. ??The timeout was performed. Start time: 12/11/2013 10:47 [...] by: ??Thaddeus Angela Supervising Attending/Fellow: ??Thaddeus Angela ~~~~~~~~~~~~~~~~~~~~~~~~~~~~~~~~~~~~~~~~~~~~~~~~~~~~~~~~~~~~ Procedure Note Felipe Vee MD - 12/11/2013 9:16 AM EDT Procedure: Right Adductor canal block Block: Post-op Pain Control, saphenous nerve block/mid thigh Start time: 12/11/2013 9:04 AM End time: 12/11/2013 9:16 AM This patient was greeted in the block room and the risks and benefits ofthe anesthetic block were reviewed. The risks of infection, bleeding,local anesthetic toxicity, and nerve injury were discussed. Specifically,the approximate risk of nerve injury (07/2999-07/4999) including neuropathy,loss of sensation and motor function, whether permanent or temporary, wasdiscussed as well as the fact that post- surgical nerve injury can beunrelated to the actual injection and may be related to intra-operativeissues such as positioning and tourniquet usage. The anesthetic consentwas obtained. The timeout was performed prior to procedure start.Standard ASA monitors were applied. Indication/Prep Position: supine [...] greeted; the risks and benefits were reviewed. Theanesthetic consent was obtained. The medical history and chart werereviewed. The timeout was performed. Start time: 12/11/2013 10:47 AM End time: 12/11/2013 10:55 AM Patient Location: Operating Room Patient Prep Position: Sitting Prep: Hand Hygiene, Hat, Mask, Sterile Gloves, Chlorhexidine and PatientDraped Injection technique: single-shot Skin Anesthetic Lidocaine 1% 5 ml Procedure Technique Level of needle insertion: L4-5 Needle approach: midline Needle Type: [facility] Gauge: 25 Needle length: 5 in Needle insertion depth when ANA achieved: 5 cm Number of attempts: 1 Intrathecal Injection The patient received the following medication/s as an intrathecalinjection: Bupivacaine 0.75% w dextrose 2 ml Epinephrine Epi Wash Events/Notes Events: None Performed by: Thaddeus Angela Supervising Attending/Fellow: Thaddeus Angela ~~~~~~~~~~~~~~~~~~~~~~~~~~~~~~~~~~~~~~~~~~~~~~~~~~~~~~~~~~~~ Felipe Vee MD TAR PROCESSING TECHNICIAN [facility] documented in this encounter Visit Diagnoses Not on filedocumented in this encounter Administered Medications Inactive Administered Medications - up to 3 most recent administrations Medication Order MAR Action Action Date Dose Rate Site ceFAZolin (ANCEF) 1g in dextrose 5% 50mL PRN, Starting on Wed12/11/13 at 1057, Until Wed12/11/13 at 1304, Administer over 30 Minutes, Anesthesia Intra-op Given 12/11/2013 10:57 AM EDT 2 g lactated ringers infusion 1,000 mL 1,000 mL, at 100 mL/hr, Intravenous, CONTINUOUS, Starting on Wed12/11/13 at 0930, Until Wed12/11/13 at 1432, Day of Surgery (Day of Procedure) New Bag 12/11/2013 11:44 AM EDT mL New Bag 12/11/2013 10:42 AM EDT mL propofol (DIPRIVAN) infusion CONTINUOUS PRN, Starting on Wed12/11/13 at 1106, Until Wed12/11/13 at 1304, Anesthesia Intra-op, Routine Rate/Dose Change 12/11/2013 12:15 PM EDT 35 mcg/kg/min 23.9 mL/hr New Bag 12/11/2013 11:06 AM EDT 50 mcg/kg/min 34.2 mL/h r tranexamic acid (CYKLOKAPRON) 100 mg/mL bolus injection (Anesthesia) PRN, Starting on Wed12/11/13 at 1046, Until Wed12/11/13 at 1304, Anesthesia Intra-op, Routine Given 12/11/2013 10:46 AM EDT 1,660 mg documented in this encounter Care Teams Incendiary Powder Mixer Relationship Specialty Start Date End Date Candace Avery APRN [facility] [address] [place] [address] PCP - General 04/03/11 01/17/15 documented as of this encounter
--- OUTSIDE RECORDS SUMMARY | 2024-01-24 15:55 | XMS_ITS | Encounter Summary ---
Author Organization [facility] Address [facility] [place] [address] Care Team Providers Care Supervisor Record Press Name Role Phone Bennie Candace Blanc APRN Primary Care Provider [phone]- [phone] Reason for Visit * Reason Comments Right Knee Pain Follow up Encounter Details Date Type Department Care Team (Late st Contact Info) Description 08/04/2012 2:05 PM EST Office [place] [address] [facility] [place] [address] CAD (coronary artery disease); Myocardial infarction, old; History of total knee arthroplasty(LEFT); Osteoarthritis of right knee; Weight loss, non-intentional Discharge Disposition: Home Social History Tobacco Use [...] 174.6 cm (5' 8.75) 08/04/2012 2:38 PM ES T Body Mass Index 36.74 08/04/2012 2:38 PM EST documented in this encounter Progress Notes * Pb Schroeder PA - 08/04/2012 2:44 PM EST PATIENT NAME: Corona Romo AGE: 67 y.o. MR#: [id number] DATE OF VISIT: 08/04/2012 SURGERY DATE: 09/10/2005 [...] Romo has a history of a remote MD and apparent stable CAD by symptoms. He [...] patient is starting to experiencing increased impairment ofhis function and is interested in receiving with a total knee replacement of the right side. Given his past medical history significant for previous myocardial infarction, coronary artery disease, diabetes mellitus, and hypertension it would be very important for him to get clearance from a cardiovascular standpoint. The patient is scheduled to see Dr. Marino in cardiology and will undergo a phsiologic stress testing. We discussed with the patient that we'll be in contact with his PCP Lisebth Avery regarding his recent unintentional 60 pound weight loss. We discussed that we would like this would need to be worked up prior to proceeding with surgery and having appropriate preoperative clearance from his primarycare. He also has a history of a left total knee replacement performed in September of 2005 the patient is doing very well postoperatively without any signs or symptoms of complications. We discussed the booking him for the surgery will be made and the or schedulers will contact him tohelp set a date for the procedure. documented in this encounter Plan of Treatment Upcoming Encounters Date Type Department Care Team (Late st Contact Info) Description 03/19/2024 10:00 AM EDT Hospital Encounter [place] [address] Arrived documented as of this encounter Visit Diagnoses Diagnosis CAD (coronary artery disease) Coronary atherosclerosis of unspecified type of vessel, [place] or graft Myocardial infarction, old Old myocardial infarction History of total knee arthroplasty(LEFT) Knee joint replacement by other means Osteoarthritis of right knee Osteoarthrosis, unspecified whether generalized or localized, lower leg Weight loss, non-intentional Loss of weight documented in this encounter Care Teams Supervisor Record Press Relationship Specialty Start Date End Date Candace Avery APRN [facility] [address] [place] [address] PCP - General 04/03/11 01/17/15 documented as of this encounter
--- OUTSIDE RECORDS SUMMARY | 2024-01-24 15:55 | XMS_ITS | Encounter Summary ---
Author Organization [facility] Address [facility] [place] [address] Care Team Providers Care Access Clinician Name Role Phone BennieDaliaCandacemarissa Blanc APRN Primary Care Provider +1- [phone] Reason for Visit * Reason Onset Date Comments Follow-up 07/17/2013 Encounter Details Date Type Department Care Team (Late st Contact Info) Description 07/17/2013 Telephone [place] [address] [facility] [place] [address] Follow-up Social History Tobacco Use Types Packs/Day Years [...] encounter Miscellaneous Notes * Telephone Encounter - Saima Lee - 07/18/2013 10:46 AM EST Scheduled * Telephone Encounter - Lacie Odell - 07/17/2013 4:15 PM EST Left message for patient to call to schedule their annual follow-up appointment. Xrays needed. documented in this encounter Plan of Treatment Upcoming Encounters Date Type Department Care Team (Late st Contact Info) Description 03/19/2024 10:00 AM EDT Hospital Encounter [place] [address] Arrived documented as of this encounter Visit Diagnoses Not on filedocumented in this encounter Care Teams Access Clinician Relationship Specialty Start Date End Date Candace Avery, ROLL[facility] STITCHER [facility] [address] [place] [address] PCP - General 04/03/11 01/17/15 documented as of this encounter
--- OUTSIDE RECORDS SUMMARY | 2024-01-24 15:56 | XMS_ITS | Encounter Summary ---
Author Organization [facility] Address [facility] [place] [address] Care Team Providers Care Continuous Improvement Analyst Name Role Phone Jessie Bose MELISSA Primary Care Provider +1 [phone] Encounter Details Date Type Department Care Team (Late st Contact Info) Description 09/10/2005 Orders Only [place] [phone] Chandra Del Rosario MD [facility] [place] [address] Social History Tobacco Use Types Packs/Day Years Used Date Smoking Tobacco: Never Assessed [facility] Inpatient Questions Answer Date Recorded Does Anyone [...] AM EDT Hospital Encounter [place] [phone] Arrived documented as of this encounter Procedures Procedure Name Priority Date/Time Associated Diagnosis Comments SURGICAL PATHOLOGY REPORT Routine 09/10/2005 2:25 PM EST documented in this encounter Results * Surgical Pathology Report (09/10/2005 2:25 PM EST) Surgical Pathology Report [id number] ? Location: 3T; 0307; A The signing pathologist has (i) examined the relevant preparation(s) for the specimen(s) and (ii) rendered or confirmed the diagnosis(es). . ?Pathology Surgical Pathology Final Report Clinical Information Specimen Submitted: A - Bone and tissue, Lt knee. Clinical History: Pt is a diabetic. Clinical Diagnosis: DJD Lt knee. Gross Description Labeled/Fixativ e: ? Bone and tissue, left knee; fresh. Quantity/Size: ?Multiple, 6.0 x 6.0 x 4.0 cm in aggregate. Tissue Description: ?? Fragments of yellow-white, hard, irregular bone, ?cartilage and soft tissue. ??Eburnation: ? Identified. ??Osteophytes: ?Identified. Sections/Proces sing: ??No sections are submitted. ??aje/EJR Diagnosis Articular bone and soft tissue consistent with osteoarthritis, left knee. ?? Gross surgical pathology examination. CR-0 09/11/05 AJE 09/11/05 Verified by: ? Marlon Rubio MD ?Pathologist ?(Electronic Signature) The attending pathologist whose signature appears on this report has reviewed all diagnostic slides and has edited the gross and/or microscopic portion of the report in rendering the final pathologic diagnosis. [facility] 09/10/2005 2:25 PM EST Chandra Del Rosario MD PATHOLOGY/CYTOLOGY O RDERATRAN Performing Organization Address City/State/[facility] Co de Phone Number [facility] documented in this encounter Visit Diagnoses Not on filedocumented in this encounter Care Teams Continuous Improvement Analyst Relationship Specialty Start Date End Date Jessie Bose APRN [address] [place] [address] PCP - General Geriatric Medicine 05/14/20 documented as of this encounter
== END 2024-01-24 15:48 | disposition home or self-care (01) ==
LOC: LBO 15:48
PROVIDERS: PCP Nurse Practitioner Adult Health; Visit Provider Family Medicine
DX: M25.462 Effusion, left knee (principal)
CPT/HCPCS: 36415; 85652; 85025; 86140

== ENCOUNTER 2024-01-27 12:18 | Inpatient (IN) | payer OTHER, SELFPAY ==
[2024-01-27 12:25] VITALS: BP 140/74; PULSE 70; RESP 18; TEMP 36.8; O2SAT 98
[2024-01-27 12:57] LABS: Abs Immature Grans 0.03 10^3/uL (0.0-0.06); Absolute Basophil Count 0.06 10^3/uL (0.0-0.2); Absolute Monocyte Count 0.76 10^3/uL (0.1-0.8); Absolute Neutrophil Count 3.91 10^3/uL (1.2-6.7); Eosinophils % 3.4 %; HCT 32.9 % (40.0-50.0); HGB 10.5 g/dL (13.5-17.5); Immature Grans % 0.5 %; Lymphocytes % 16.8 %; MCH 29.1 pg (27.0-33.0); MCHC 31.9 % (32.0-36.0); MCV 91 fL (80-95); MPV 9.4 fL (8.0-11.0); Monocytes % 12.8 %; Neutrophils % 65.5 %; Platelet Count 250 10^3/uL (130-400); RBC 3.61 10^6/uL (4.36-5.78); RDW 15.5 % (11.8-14.1); RDW-SD 50.4 fL; WBC 5.96 10^3/uL (4.4-10.8)
[2024-01-27 13:01] LABS: ESR 19 mm/hr (0-20)
[2024-01-27 13:19] LABS: ALT 17 U/L (16-63); AST 23 U/L (15-37); Albumin 3.7 g/dL (3.4-5.0); Alkaline Phosphatase 221 U/L (46-116); Anion Gap 7.4 mmol/L (3-11); BUN 16 mg/dL (7-18); Bilirubin, Total 1.91 mg/dL (0.2-1.0); CO2 28.6 mmol/L (21.0-32.0); CREATININE 0.9 mg/dL (0.70-1.30); Calcium 9.1 mg/dL (8.5-10.1); Chloride 106 mmol/L (98-107); Estimated GFR 86.88 (mL/min/1.73m2); Glucose 103 mg/dL (74-106); Potassium 3.6 mmol/L (3.5-5.1); Sodium 142 mmol/L (136-145); Total Protein 7.4 g/dL (6.4-8.2)
[2024-01-27 13:25] LABS: Crystals (BF) No Crystals seen; Source Synovial
[2024-01-27 13:38] LABS: Clarity Cloudy; Mononuclear Cells 10 %; Polynuclear Cells 90 %; Source Synovial
[2024-01-27 13:40] LABS: Nucleated Cells 8207 uL (0)
--- NOTE | 2024-01-27 15:19 | W.ED.GENAD ---
Discharge Plan Discharge Details Chief Complaint: Orthopedic Clinical Impression: Septic arthritis of knee, left Primary Care Provider: Jessie Bose ED Provider: Jameson Godfrey Home Meds and New Rx's Prescriptions: No Action atorvastatin 80 mg tablet See Rx Instructions .ROUTE .COMPLEX Qty: 90 3RF Dose Instruction: TAKE ONE TABLET BY MOUTH AT BEDTIME Rx Instructions: TAKE ONE TABLET BY MOUTH AT BEDTIME spironolactone 25 mg tablet 12.5 mg PO DAILY Patient Comments: TAKE ONE TABLET BY MOUTH EVERY DAY folic acid 1 mg tablet 1 mg PO DAILY Qty: 90 3RF (DME) AFO Brace (R foot) See Rx Instructions .Route .MEDSUPPLY Qty: 1 0RF Rx Instructions: R AFO brace for foot drop albuterol sulfate [ProAir HFA] 90 mcg/actuation HFA aerosol inhaler 1 - 2 puff Inhalation Q6H PRN Qty: 6.7 2RF Rx Instructions: SOB/wheeze nitroglycerin 0.4 mg tablet, sublingual 0.4 mg SUBLINGUAL DIRECTED Qty: 30 0RF loperamide [Imodium A-D] 2 mg tablet 2 mg PO Q6H PRN (Reason: loose stool) Qty: 90 12RF finasteride [Proscar] 5 mg tablet 5 mg PO HS Qty: 90 3RF quetiapine 50 mg tablet See Rx Instructions PO QHS Qty: 90 1RF Rx Instructions: Take 50mg by mouth nightly at bedtime for depression; may take 1/2 tab (25mg) BID PRN agitation acetaminophen [Tylenol] 325 mg capsule 1,000 mg PO Q6H PRN (Reason: fever or pain) bupropion HCl 150 mg tablet extended release 24 hr 150 mg PO QAM Qty: 90 3RF Rx Instructions: Changed to ONCE PER DAY dosing--take in AM mirtazapine 7.5 mg tablet 7.5 mg PO QHS Qty: 90 3RF Rx Instructions: New RX 12/13/23 for depression, anxiety, sleep sotalol 80 mg tablet 80 mg PO BID Qty: 180 1RF Eliquis 5 mg tablet 5 mg PO BID Qty: 60 0RF Rx Instructions: 1-month courtesy supply until can get RX from [facility] [place] cardi[place] potassium chloride 20 mEq tablet extended release 20 meq PO DAILY Qty: 90 3RF Rx Instructions: Hypokalemia amlodipine 10 mg tablet See Rx Instructions .ROUTE .COMPLEX Qty: 90 3RF Dose Instruction: TAKE ONE TABLET BY MOUTH EVERY DAY Rx Instructions: TAKE ONE TABLET BY MOUTH EVERY DAY cholecalciferol (vitamin D3) [Vitamin D3] 50 mcg (2,000 unit) Capsule 50 mcg PO DAILY furosemide 40 mg tablet 20 mg PO .COMPLEX Patient Comments: TAKE ONE TABLET BY MOUTH TWICE A DAY Rx Instructions: 20 mg orally Every Other Day; HPI General Mode of arrival: ambulatory. Date/Time Provider Initiated Documentation: 01/27/24 12:22. Limitations to Documentation: no limitations. Information obtained by: patient. HPI Narrative: 78-year-old male with history of multiple medical problems including diabetes, COPD, A-fib on apixaban, 18 to 19 years status post left total knee replacement, here with left knee inflammation, sent by orthopedic clinic with concern for septic arthritis. Patient states that he had a fall a few weeks ago and was treated for hematoma of his thigh. Over the last week he has noticed increased swelling and pain with associated warmth and stiffness of his left knee. He notes difficulty ambulating. Denies associated fever. Joint aspiration was performed by orthopedic PA in clinic and specimen was sent to the lab. 45 mL of cloudy joint fluid was aspirated. Regarding the fall: patient notes fall happened 2 weeks ago. Not sure how he fell. He did seem to lose consciousness. No head trauma. He denies headache. Related Data Home Medications ?Medication ?Instructions ?Recorded ?Confirmed cholecalciferol (vitamin D3) 50 50 mcg PO DAILY 07/07/21 01/27/24 mcg (2,000 unit) capsule (Vitamin D3) atorvastatin 80 mg tablet See Rx Instructions .Route 08/04/23 01/27/24 .COMPLEX #90 tabs albuterol sulfate 90 mcg/actuation 1 - 2 puff inhalation Q6H PRN 08/17/23 01/27/24 aerosol inhaler (ProAir HFA) shortness of breath or wheezing #6.7 grams nitroglycerin 0.4 mg sublingual 0.4 mg sublingual DIRECTED #30 08/17/23 01/27/24 tablet tabs loperamide 2 mg tablet (Imodium 2 mg PO Q6H PRN loose stool #90 10/07/23 01/27/24 A-D) tabs apixaban 5 mg tablet (Eliquis) 5 mg PO BID #60 tabs 10/27/23 01/27/24 sotalol 80 mg tablet 80 mg PO BID #180 tabs 10/27/23 01/27/24 spironolactone 25 mg tablet 12.5 mg PO DAILY 11/11/23 01/27/24 AFO Brace (R foot) #1 ea 11/25/23 01/27/24 folic acid 1 mg tablet 1 mg PO DAILY #90 tabs 11/25/23 01/27/24 potassium chloride 20 mEq 20 meq PO DAILY #90 tabs 12/08/23 01/27/24 tablet,extended release acetaminophen 325 mg capsule 1,000 mg PO Q6H PRN fever or pain 12/13/23 01/27/24 (Tylenol) bupropion HCl 150 mg 24 hr tablet, 150 mg PO QAM #90 tabs 12/13/23 01/27/24 extended release mirtazapine 7.5 mg tablet 7.5 mg PO QHS #90 tabs 12/13/23 01/27/24 amlodipine 10 mg tablet See Rx Instructions .Route 12/27/23 01/27/24 .COMPLEX #90 tabs finasteride 5 mg tablet (Proscar) 5 mg PO HS #90 tabs 01/06/24 01/27/24 quetiapine 50 mg tablet See Rx Instructions PO QHS #90 tabs 01/06/24 01/27/24 furosemide 40 mg tablet 20 mg PO .COMPLEX 01/10/24 01/27/24 Previous Rx's ?Medication ?Instructions ?Recorded atorvastatin 80 mg tablet See Rx Instructions .Route 08/04/23 .COMPLEX #90 tabs albuterol sulfate 90 mcg/actuation 1 - 2 puff inhalation Q6H PRN 08/17/23 aerosol inhaler (ProAir HFA) shortness of breath or wheezing #6.7 grams nitroglycerin 0.4 mg sublingual 0.4 mg sublingual DIRECTED #30 08/17/23 tablet tabs loperamide 2 mg tablet (Imodium 2 mg PO Q6H PRN loose stool #90 10/07/23 A-D) tabs apixaban 5 mg tablet (Eliquis) 5 mg PO BID #60 tabs 10/27/23 sotalol 80 mg tablet 80 mg PO BID #180 tabs 10/27/23 AFO Brace (R foot) #1 ea 11/25/23 folic acid 1 mg tablet 1 mg PO DAILY #90 tabs 11/25/23 potassium chloride 20 mEq 20 meq PO DAILY #90 tabs 12/08/23 tablet,extended release bupropion HCl 150 mg 24 hr tablet, 150 mg PO QAM #90 tabs 12/13/23 extended release mirtazapine 7.5 mg tablet 7.5 mg PO QHS #90 tabs 12/13/23 amlodipine 10 mg tablet See Rx Instructions .Route 12/27/23 .COMPLEX #90 tabs finasteride 5 mg tablet (Proscar) 5 mg PO HS #90 tabs 01/06/24 quetiapine 50 mg tablet See Rx Instructions PO QHS #90 tabs 01/06/24 Allergies Allergy/AdvReac Type Severity Reaction Status Date / Time oxycodone AdvReac Intermediate He goes a Verified 01/27/24 10:46 little wacky General Stated Complaint: Orthopedic LOREN: 3 Review of Systems Constitutional Constitutional: Denies fever(s) Musculoskeletal Musculoskeletal: Reports as per HPI Exam Const General: cooperative and no acute distress HENID Head: normocephalic and atraumatic Mouth: moist mucous membranes Eyes Conjunctivae: normal conjunctivae Sclera: normal sclerae Resp Auscultation: clear to auscultation bilaterally, no rales, no rhonchi and no wheezes Cardio Rate: regular rate and not tachycardic Rhythm: regular rhythm Neuro General: patient alert, patient awake and tone normal Extrem Left lower extremity: knee Details: swelling and abnormal ROM Details: pain with active ROM Details: with flexion Other: Left knee warm to the touch with significant swelling Course Vital Signs Vital signs: Vital Signs Temperature 36.8 C 01/27/24 12:25 Pulse 70 01/27/24 12:25 Respiratory Rate 18 01/27/24 12:25 Blood Pressure 140/74 01/27/24 12:25 Pulse Oximetry 98 01/27/24 12:25 Temperature 36.8 C 01/27/24 12:25 Temperature Source Temporal Artery Scan 01/27/24 12:25 Pulse 70 01/27/24 12:25 Respiratory Rate 18 01/27/24 12:25 Respiratory Effort Normal 01/27/24 12:31 Blood Pressure 140/74 01/27/24 12:25 Blood Pressure Position Sitting 01/27/24 12:25 Pulse Oximetry 98 01/27/24 12:25 Oxygen Delivery Method Room Air 01/27/24 12:25 Oxygen Flow Rate 0 01/27/24 12:25 Pain Level 6 01/27/24 12:31 Lab/Test Results Lab/Test Results: 01/27/24 11:51 Synovial - Left Knee Body Fluid Culture - Pending 01/27/24 11:51 Synovial - Left Knee Gram Stain - Final Laboratory Tests Range/Units 01/27/24 01/27/24 11:51 12:41 WBC (4.4-10.8) 10^3/uL 5.96 RBC (4.36-5.78) 10^6/uL 3.61 L Hgb (13.5-17.5) g/dL 10.5 L Hct (40.0-50.0) % 32.9 L MCV (80-95) fL 91 MCH (27.0-33.0) pg 29.1 MCHC (32.0-36.0) % 31.9 L RDW (11.8-14.1) % 15.5 H Plt Count (130-400) 10^3/uL 250 MPV (8.0-11.0) fL 9.4 Immature Gran % % 0.5 Neutrophils % % 65.5 Lymphocytes % % 16.8 Monocytes % % 12.8 Eosinophils % % 3.4 Basophils % % 1.0 Nucleated RBC % (0.0-0.3) % 0.0 Absolute Neutrophils (1.2-6.7) 10^3/uL 3.91 Absolute Lymphocytes (1.2-3.4) 10^3/uL 1.00 L Absolute Monocytes (0.1-0.8) 10^3/uL 0.76 Absolute Eosinophils (0.0-0.7) 10^3/uL 0.20 Absolute Basophils (0.0-0.2) 10^3/uL 0.06 ESR (0-20) mm/hr 19 Sodium (136-145) mmol/L 142 Potassium (3.5-5.1) mmol/L 3.6 Chloride (98-107) mmol/L 106 Carbon Dioxide (21.0-32.0) mmol/L 28.6 Anion Gap (3-11) mmol/L 7.4 BUN (7-18) mg/dL 16 Creatinine (0.70-1.30) mg/dL 0.9 Est GFR (CKD-EPI 2020) (mL/min/1.73m2) 86.88 Glucose (74-106) mg/dL 103 Calcium (8.5-10.1) mg/dL 9.1 Total Bilirubin (0.2-1.0) mg/dL 1.91 H AST (15-37) U/L 23 ALT (16-63) U/L 17 Alkaline Phosphatase (46-116) U/L 221 H C-Reactive Protein (<or=0.5) mg/dL 3.00 H Total Protein (6.4-8.2) g/dL 7.4 Albumin (3.4-5.0) g/dL 3.7 Fluid Source Synovial Fluid Color Yellow Fluid Clarity Cloudy Fluid WBC (0) uL 8207 Fld Polynuclear WBCs % % 90 Fluid Mononuclear Cell % 10 Fluid Crystals No Crystals seen Fluid Crystal Source Synovial Path Cons Comment Y Medical Decision Making 78-year-old male with multiple medical problems including diabetes, remote left total knee replacement, sent to the ED from orthopedic clinic with concern for septic arthritis of the left knee. X-ray of left knee performed in the clinic today was interpreted by radiology: Joint aspiration was performed in the orthopedic clinic today. Specimen sent to lab. I have ordered cell count and cultures on the specimen. Synovial fluid white blood cell count 8207 concerning for septic arthritis in the setting of total joint replacement. CRP elevated at 3. I spoke with Dr. Carroll, on-call orthopedic, discussed ED presentation course. He is not able to care for this patient at [facility] and recommends transfer to tertiary care facility. Initiating treatment with vancomycin 2 g IV and ceftriaxone 2 g IV. 1527??I have contacted [facility] [place] [facility] to request transfer. [id number] --[facility] [place] transfer center returned call noting they are at capacity and unable to accept the patient in transfer. I have contacted [facility] to request transfer. Awaiting callback. Lab Data Lab results reviewed: Yes I reviewed the patient's lab results. Labs: 01/27/24 11:51 Synovial - Left Knee Body Fluid Culture - Pending 01/27/24 11:51 Synovial - Left Knee Gram Stain - Final Laboratory Tests Range/Units 01/27/24 01/27/24 11:51 12:41 WBC (4.4-10.8) 10^3/uL 5.96 RBC (4.36-5.78) 10^6/uL 3.61 L Hgb (13.5-17.5) g/dL 10.5 L Hct (40.0-50.0) % 32.9 L MCV (80-95) fL 91 MCH (27.0-33.0) pg 29.1 MCHC (32.0-36.0) % 31.9 L RDW (11.8-14.1) % 15.5 H Plt Count (130-400) 10^3/uL 250 MPV (8.0-11.0) fL 9.4 Immature Gran % % 0.5 Neutrophils % % 65.5 Lymphocytes % % 16.8 Monocytes % % 12.8 Eosinophils % % 3.4 Basophils % % 1.0 Nucleated RBC % (0.0-0.3) % 0.0 Absolute Neutrophils (1.2-6.7) 10^3/uL 3.91 Absolute Lymphocytes (1.2-3.4) 10^3/uL 1.00 L Absolute Monocytes (0.1-0.8) 10^3/uL 0.76 Absolute Eosinophils (0.0-0.7) 10^3/uL 0.20 Absolute Basophils (0.0-0.2) 10^3/uL 0.06 ESR (0-20) mm/hr 19 Sodium (136-145) mmol/L 142 Potassium (3.5-5.1) mmol/L 3.6 Chloride (98-107) mmol/L 106 Carbon Dioxide (21.0-32.0) mmol/L 28.6 Anion Gap (3-11) mmol/L 7.4 BUN (7-18) mg/dL 16 Creatinine (0.70-1.30) mg/dL 0.9 Est GFR (CKD-EPI 2020) (mL/min/1.73m2) 86.88 Glucose (74-106) mg/dL 103 Calcium (8.5-10.1) mg/dL 9.1 Total Bilirubin (0.2-1.0) mg/dL 1.91 H AST (15-37) U/L 23 ALT (16-63) U/L 17 Alkaline Phosphatase (46-116) U/L 221 H C-Reactive Protein (<or=0.5) mg/dL 3.00 H Total Protein (6.4-8.2) g/dL 7.4 Albumin (3.4-5.0) g/dL 3.7 Fluid Source Synovial Fluid Color Yellow Fluid Clarity Cloudy Fluid WBC (0) uL 8207 Fld Polynuclear WBCs % % 90 Fluid Mononuclear Cell % 10 Fluid Crystals No Crystals seen Fluid Crystal Source Synovial Path Cons Comment Y Quality:SDOH Health Related Social Needs: No Data to Display PFSH All Active Problems (Updated 01/27/24 @ 16:54 by Jameson Godfrey MD) Septic arthritis of knee, left (Acute) Knee effusion, left (Acute) Hematoma (Acute) Chronic anticoagulation (Acute) Hematoma of left lower extremity (Acute) Dementia with behavioral disturbance (Acute ~11/2023) Quetiapine Hypokalemia (Acute) Dementia, unspecified, without behavioral disturbance (Chronic) Delirium due to another medical condition (Acute) Folate deficiency (Acute) Mild anemia (Acute ~07/2023) Recurrent falls while walking (Acute ~2023) Impaired gait and mobility (Acute ~2023) Hallucinations (Acute) Memory difficulty (Acute ~07/2023) PAF (paroxysmal atrial fibrillation) (Chronic ~07/2023) [facility] [place] Cardio-07/20/23 Pacemaker (Acute ~03/2023) [facility] [place] 03/23/2023 Rotator cuff arthropathy of left shoulder (Acute) subacromial corticosteroid injection 10/28/22 Primary hypertension (Chronic) BPH (benign prostatic hyperplasia) (Chronic) RX Finasteride Glaucoma (Chronic) 09/05/19 [place] Depression (Chronic) Long-term RX Wellbutrin Diverticulosis (Chronic) 2019 colonoscopy Sinus node dysfunction (Chronic) [facility] [place] Cardiolgy; stay off of BB Obesity (Chronic) Tubular adenoma (Chronic 10/04/08) Colonoscopy 10/04/15 & repeat 2019 (13!) Diabetes type 2, controlled (Chronic) Dx'ed in COPD (chronic obstructive pulmonary disease) (Acute) Coronary artery disease (Chronic) [facility] [place] [employer] [place] 1998 with angina; cath in 1998 1-vessel dis Obstructive sleep apnea (Chronic) h/o CPAP; clausterphobic with masks so stopped using; then 100# weight loss; referred in 11/2019 but he declined Medical History Alcoholism in remission Calf swelling Leg pain, right Pelvic hematoma in male Swollen penis SOB (shortness of breath) on exertion Myocardial infarction X2 1997, 1998 Small bowel obstruction [facility] 05/2018; 02/2023 Normochromic normocytic anemia Bradycardia, sinus 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 court recording monitor Rupture of right biceps tendon PT Cataracts, bilateral 09/05/19 [place] OS>>OD Epidermal inclusion cyst Lipoma of head Removed 04/2019 [place] Anxiety and depression Pancreatitis [facility] 05/2018 (mild) Hyperlipidemia Atorvastatin Surgical History History of bilateral inguinal hernia repair Postoperative state S/P bilateral inguinal hernia repair, follow-up exam S/P cardiac pacemaker procedure (~03/2023) S/P colonoscopy (~05/02/19) 09/2015- [place]- Tubular adenomas x2 05/2019--Brain x13 tubular adenomas Total knee replacement status R 12/11/2013 L S/P shoulder surgery S/P coronary artery stent placement 04/30/19 per pt he does not have a stent. 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 Pets and animals: Yes Sexually active: Yes Do you think of yourself as: straight/heterosexual Current gender identity: male What is your relationship status?: living with partner How often do you get together with friends or relatives?: twice per week Panel score (0-1 are the most socially isolated patients): 1 What type of physical activity do you participate in: walking Duration: > 90 minutes/day Frequency: 3-4 times per week Desirae/Episcopalian: Anglican Special desirae needs: No Seatbelt use: always Drive intox or ride w/intox warehouse delivery driver: No Do you feel safe at home: Yes Do you feel safe in your relationship?: Yes Additional Social history: answering for pt
[2024-01-27] MEDS: VANCOMYCIN/WATER (PEG) 2 GM/400 ML BAG IV (15:36)
[2024-01-27] MEDS: cefTRIAXone 2 GM/50 ML BAG IVPB (15:59)
--- NOTE | 2024-01-27 16:45 | RT.EKG_ITS ---
APPROVED REPORT Exam: Resting ECG Reason for Exam: fall Patient Location: E HR:70 bpm ECG Measurements Heart Rate 70 AXIS OR 112 P -65 QRSd 159 QRS -56 QT 448 T 38 QTc 484 Conclusion Sinus or ectopic atrial rhythm...P axis (-45,135) RBBB and LAFB...QRSd >120mS, axis(-40,240)
--- NOTE | 2024-01-27 17:39 | W.PM.HP.N ---
Date of service: 01/27/24 Time of Service: 20:01 Assessment and Plan Assessment and plan (1) Septic arthritis of knee, left: Status: Acute Assessment and plan: -patient initially presed to orthopedics office where cloudy fluid was aspirated from his swollen left knee -call center professional orthopedic surgeon Dr. Manley felt that patient would require higher level of care if surgical intervention was indicated -[facility] was unable to take patient due to lack of bed availability -[facility] was also at capacity, however, their orthopedic surgeons felt that the patient would not need surgical intervention at this time and could be managed by medicine service with IV antibiotics -will continue vanc and CTX started in the ED -f/u joint aspirate culture results (2) PAF (paroxysmal atrial fibrillation): Status: Chronic Assessment and plan: -continue home eliquis and sotalol (3) Coronary artery disease: Status: Chronic Assessment and plan: -continue home SL nitro PRN, lipitor 80mg HS, spironolactone 12.5mg daily Qualifiers: Associated angina: with stable angina Coronary Disease-Associated Artery/Lesion type: unspecified vessel or lesion type [place] vs. transplanted heart: [place] heart Qualified Code(s): I25.118 - Atherosclerotic heart disease of [place] coronary artery with other forms of angina pectoris (4) Primary hypertension: Status: Chronic Assessment and plan: -continue home amlodipine (5) COPD (chronic obstructive pulmonary disease): Status: Acute Assessment and plan: -continue home inhaler regimen Qualifiers: COPD type: emphysema Emphysema type: unspecified Qualified Code(s): J43.9 - Emphysema, unspecified (6) Dementia with behavioral disturbance: Status: Acute Assessment and plan: -continue home mirtazapine History of Present Illness History of Present Illness Chief Complaint: left knee swelling Narrative: 78-year-old male with a past medical history of dementia, coronary artery disease, COPD, hypertension, pacemaker, A-fib on Eliquis presents the emergency department with left knee swelling. Patient said over the last week he has noticed increased swelling and pain with warmth associated with his left knee that he attributes to the fall resulting in hospitalization for left thigh hematoma a few weeks ago. He states that he has been having difficulty ambulating but he denies any fevers, lightheadedness, dizziness. He states that there is a joint aspiration done in the orthopedic office and the specimen was sent to the lab 45 mL of cloudy fluid. In the emergency department the patient was noted as having normal vital signs, normal CBC, normal CMP. But given the nature of his joint aspirate and having history of knee replacement, on-call orthopedic surgeon Dr. Carroll stated that if patient were to need surgical intervention that he should be transferred to tertiary care center. [facility] was called and they stated they were unable to accept the patient for transfer due to capacity. [facility] was also contacte, and while they stated they did not have capacity, emergency room physician was able to discuss with orthopedic surgery who stated that the patient's current condition they would not take him to the operating room and would only treat him with IV antibiotics at this time. Which time emergency room physician paged hospitalist for admission for patient with left knee septic arthritis requiring IV antibiotics. Review of Systems All systems reviewed & are unremarkable except as noted in HPI and below PFSH All Active Problems (Updated 01/27/24 @ 16:54 by Jameson Godfrey MD) Septic arthritis of knee, left (Acute) Knee effusion, left (Acute) Hematoma (Acute) Chronic anticoagulation (Acute) Hematoma of left lower extremity (Acute) Dementia with behavioral disturbance (Acute ~11/2023) Quetiapine Hypokalemia (Acute) Dementia, unspecified, without behavioral disturbance (Chronic) Delirium due to another medical condition (Acute) Folate deficiency (Acute) Mild anemia (Acute ~07/2023) Recurrent falls while walking (Acute ~2023) Impaired gait and mobility (Acute ~2023) Hallucinations (Acute) Memory difficulty (Acute ~07/2023) PAF (paroxysmal atrial fibrillation) (Chronic ~07/2023) [facility] Cardio-07/20/23 Pacemaker (Acute ~03/2023) [facility] 03/23/2023 Rotator cuff arthropathy of left shoulder (Acute) subacromial corticosteroid injection 10/28/22 Primary hypertension (Chronic) BPH (benign prostatic hyperplasia) (Chronic) RX Finasteride Glaucoma (Chronic) 09/05/19 [place] Depression (Chronic) Long-term RX Wellbutrin Diverticulosis (Chronic) 2019 colonoscopy Sinus node dysfunction (Chronic) [facility] Cardiolgy; stay off of BB Obesity (Chronic) Tubular adenoma (Chronic 10/04/08) Colonoscopy 10/04/15 & repeat 2019 (13!) Diabetes type 2, controlled (Chronic) Dx'ed in COPD (chronic obstructive pulmonary disease) (Acute) Coronary artery disease (Chronic) [facility] 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; cath in 1998 1-vessel dis Obstructive sleep apnea (Chronic) h/o CPAP; clausterphobic with masks so stopped using; then 100# weight loss; referred in 11/2019 but he declined Medical History Alcoholism in remission Calf swelling Leg pain, right Pelvic hematoma in male Swollen penis SOB (shortness of breath) on exertion Myocardial infarction X2 1997, 1998 Small bowel obstruction [place] 05/2018; 02/2023 Normochromic normocytic anemia Bradycardia, sinus 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 child monitor Rupture of right biceps tendon PT Cataracts, bilateral 09/05/19 [place] OS>>OD Epidermal inclusion cyst Lipoma of head Removed 04/2019 [place] Anxiety and depression Pancreatitis [facility] 05/2018 (mild) Hyperlipidemia Atorvastatin Surgical History History of bilateral inguinal hernia repair Postoperative state S/P bilateral inguinal hernia repair, follow-up exam S/P cardiac pacemaker procedure (~03/2023) S/P colonoscopy (~05/02/19) 09/2015- [place]- Tubular adenomas x2 05/2019--Brain x13 tubular adenomas Total knee replacement status R 12/11/2013 L S/P shoulder surgery S/P coronary artery stent placement 04/30/19 per pt he does not have a stent. 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 Pets and animals: Yes Sexually active: Yes Do you think of yourself as: straight/heterosexual Current gender identity: male What is your relationship status?: living with partner How often do you get together with friends or relatives?: twice per week Panel score (0-1 are the most socially isolated patients): 1 What type of physical activity do you participate in: walking Duration: > 90 minutes/day Frequency: 3-4 times per week Desirae/Restorationist: Anabaptist Special desirae needs: No Seatbelt use: always Drive intox or ride w/intox swing driver: No Do you feel safe at home: Yes Do you feel safe in your relationship?: Yes Additional Social history: answering for pt Meds Allergies and Home Medications Allergies Allergy/AdvReac Type Severity Reaction Status Date / Time oxycodone AdvReac Intermediate He goes a Verified 01/27/24 10:46 little wacky Home Medications ?Medication ?Instructions ?Recorded ?Confirmed ?Type cholecalciferol (vitamin D3) 50 50 mcg PO DAILY 07/07/21 01/27/24 History mcg (2,000 unit) capsule (Vitamin D3) atorvastatin 80 mg tablet See Rx Instructions .Route 08/04/23 01/27/24 Rx .COMPLEX #90 tabs albuterol sulfate 90 mcg/actuation 1 - 2 puff inhalation Q6H PRN 08/17/23 01/27/24 Rx aerosol inhaler (ProAir HFA) shortness of breath or wheezing #6.7 grams nitroglycerin 0.4 mg sublingual 0.4 mg sublingual DIRECTED #30 08/17/23 01/27/24 Rx tablet tabs loperamide 2 mg tablet (Imodium 2 mg PO Q6H PRN loose stool #90 10/07/23 01/27/24 Rx A-D) tabs apixaban 5 mg tablet (Eliquis) 5 mg PO BID #60 tabs 10/27/23 01/27/24 Rx sotalol 80 mg tablet 80 mg PO BID #180 tabs 10/27/23 01/27/24 Rx spironolactone 25 mg tablet 12.5 mg PO DAILY 11/11/23 01/27/24 History AFO Brace (R foot) #1 ea 11/25/23 01/27/24 Rx folic acid 1 mg tablet 1 mg PO DAILY #90 tabs 11/25/23 01/27/24 Rx potassium chloride 20 mEq 20 meq PO DAILY #90 tabs 12/08/23 01/27/24 Rx tablet,extended release acetaminophen 325 mg capsule 1,000 mg PO Q6H PRN fever or pain 12/13/23 01/27/24 History (Tylenol) bupropion HCl 150 mg 24 hr tablet, 150 mg PO QAM #90 tabs 12/13/23 01/27/24 Rx extended release mirtazapine 7.5 mg tablet 7.5 mg PO QHS #90 tabs 12/13/23 01/27/24 Rx amlodipine 10 mg tablet See Rx Instructions .Route 12/27/23 01/27/24 Rx .COMPLEX #90 tabs finasteride 5 mg tablet (Proscar) 5 mg PO HS #90 tabs 01/06/24 01/27/24 Rx quetiapine 50 mg tablet See Rx Instructions PO QHS #90 tabs 01/06/24 01/27/24 Rx furosemide 40 mg tablet 20 mg PO .COMPLEX 01/10/24 01/27/24 History Exam Narrative Exam Narrative: well appearing gentleman sitting up in the chair in no acute distressm AOx4, heart RRR, lungs CTAB, abdomen soft, non-tender, non-distended, left knee swollen and warm but without erythema or decreased ROM Results Labs 01/27/24 12:41 01/27/24 12:41 Labs: Laboratory Results - last 24 hr 01/27/24 01/27/24 11:51 12:41 WBC 5.96 RBC 3.61 L Hgb 10.5 L Hct 32.9 L MCV 91 MCH 29.1 MCHC 31.9 L RDW 15.5 H Plt Count 250 MPV 9.4 Immature Gran % 0.5 Neutrophils % 65.5 Lymphocytes % 16.8 Monocytes % 12.8 Eosinophils % 3.4 Basophils % 1.0 Nucleated RBC % 0.0 Absolute Neutrophils 3.91 Absolute Lymphocytes 1.00 L Absolute Monocytes 0.76 Absolute Eosinophils 0.20 Absolute Basophils 0.06 ESR 19 Sodium 142 Potassium 3.6 Chloride 106 Carbon Dioxide 28.6 Anion Gap 7.4 BUN 16 Creatinine 0.9 Est GFR (CKD-EPI 2020) 86.88 Glucose 103 Calcium 9.1 Total Bilirubin 1.91 H AST 23 ALT 17 Alkaline Phosphatase 221 H C-Reactive Protein 3.00 H Total Protein 7.4 Albumin 3.7 Fluid Source Synovial Fluid Color Yellow Fluid Clarity Cloudy Fluid WBC 8207 Fld Polynuclear WBCs % 90 Fluid Mononuclear Cell 10 Fluid Crystals No Crystals seen Fluid Crystal Source Synovial Path Cons Comment Y Last Vital Signs Temp 98.2 F 01/27/24 12:25 Pulse 70 01/27/24 12:25 Resp 18 01/27/24 12:25 BP 140/74 01/27/24 12:25 Pulse Ox 98 01/27/24 12:25 Time Spent Time spent with Patient: >75 minutes Time was spent: preparing to see the patient(eg.review tests), obtaining and/or reviewing separately otained hiistory, ordering medications,tests, procedures, referring, communicating with other health animal care service worker, indepentently interpreting results, counseling the patient and care coordination
[2024-01-27 17:49] VITALS: BP 151/81; PULSE 70; RESP 14; TEMP 37.1; O2SAT 96
--- NOTE | 2024-01-27 17:49 | ED.PROG_ITS ---
Date of service: 01/27/24 Time of Service: 17:50 Medical Decision Making Patient signed out to me pending callback from [facility]. Reviewed the case with orthopedist Dr. Lovelace at [facility], reviewed the results of the tap and patient's overall presentation, they are at capacity but did state that if this patient was in their institution they would not do any surgeries or interventions on the knee tonight and they would follow the cultures of the knee to determine best course of action and may not even go to washout for several days if needed. They did recommend calling back tomorrow and reviewing the case again and they potentially could take him in transfer. Discussed with the hospitalist who agrees to accept admission for IV antibiotics and following cultures. Patient is stable and him and his are in agreement with the plan. ECG Data Attestation: I personally reviewed and interpreted this ECG (s) as follows: Prior ECG tracings: available for review Interpretation: Sinus rhythm, rate of 70, no significant changes from prior Quality:SDOH Health Related Social Needs: Health related social needs details HXO dementia Sign Out Sign Out Data: Sign Out Comment: Follow-up EKG. Plan for transfer for septic arthritis. Awaiting callback from [facility] regarding transfer request. Last updated by Jameson Godfrey MD at 01/27/24 16:57 Discharge Plan Disposition Patient Disposition: Admit to [facility] Condition: Stable Discharge Details Chief Complaint: Orthopedic Clinical Impression: Septic arthritis of knee, left Primary Care Provider: Jessie Bose ED Provider: Chandra Crystal Home Meds and New Rx's Prescriptions: No Action atorvastatin 80 mg tablet See Rx Instructions .ROUTE .COMPLEX Qty: 90 3RF Dose Instruction: TAKE ONE TABLET BY MOUTH AT BEDTIME Rx Instructions: TAKE ONE TABLET BY MOUTH AT BEDTIME spironolactone 25 mg tablet 12.5 mg PO DAILY Patient Comments: TAKE ONE TABLET BY MOUTH EVERY DAY folic acid 1 mg tablet 1 mg PO DAILY Qty: 90 3RF (DME) AFO Brace (R foot) See Rx Instructions .Route .MEDSUPPLY Qty: 1 0RF Rx Instructions: R AFO brace for foot drop albuterol sulfate [ProAir HFA] 90 mcg/actuation HFA aerosol inhaler 1 - 2 puff Inhalation Q6H PRN Qty: 6.7 2RF Rx Instructions: SOB/wheeze nitroglycerin 0.4 mg tablet, sublingual 0.4 mg SUBLINGUAL DIRECTED Qty: 30 0RF loperamide [Imodium A-D] 2 mg tablet 2 mg PO Q6H PRN (Reason: loose stool) Qty: 90 12RF finasteride [Proscar] 5 mg tablet 5 mg PO HS Qty: 90 3RF quetiapine 50 mg tablet See Rx Instructions PO QHS Qty: 90 1RF Rx Instructions: Take 50mg by mouth nightly at bedtime for depression; may take 1/2 tab (25mg) BID PRN agitation acetaminophen [Tylenol] 325 mg capsule 1,000 mg PO Q6H PRN (Reason: fever or pain) bupropion HCl 150 mg tablet extended release 24 hr 150 mg PO QAM Qty: 90 3RF Rx Instructions: Changed to ONCE PER DAY dosing--take in AM mirtazapine 7.5 mg tablet 7.5 mg PO QHS Qty: 90 3RF Rx Instructions: New RX 12/13/23 for depression, anxiety, sleep sotalol 80 mg tablet 80 mg PO BID Qty: 180 1RF Eliquis 5 mg tablet 5 mg PO BID Qty: 60 0RF Rx Instructions: 1-month courtesy supply until can get RX from [facility] cardiology potassium chloride 20 mEq tablet extended release 20 meq PO DAILY Qty: 90 3RF Rx Instructions: Hypokalemia amlodipine 10 mg tablet See Rx Instructions .ROUTE .COMPLEX Qty: 90 3RF Dose Instruction: TAKE ONE TABLET BY MOUTH EVERY DAY Rx Instructions: TAKE ONE TABLET BY MOUTH EVERY DAY cholecalciferol (vitamin D3) [Vitamin D3] 50 mcg (2,000 unit) Capsule 50 mcg PO DAILY furosemide 40 mg tablet 20 mg PO .COMPLEX Patient Comments: TAKE ONE TABLET BY MOUTH TWICE A DAY Rx Instructions: 20 mg orally Every Other Day;
--- NOTE | 2024-01-27 18:30 | W.PCEDHO ---
Registration Status: Primary Language: Preferred Language: ED Information & Data Chief Complaint Orthopedic 01/27/24 15:19 Triage Note concerned about swelling in 01/27/24 12:25 left knee (artificial) knee aspiration performed at orthopedic office. Subjective hxo dementia 01/27/24 12:31 Medical / Surgical History (Last Reviewed 01/27/24 @ 16:46 by Jameson Godfrey MD) Alcoholism in remission Calf swelling Leg pain, right Pelvic hematoma in male Swollen penis SOB (shortness of breath) on exertion Myocardial infarction Small bowel obstruction Normochromic normocytic anemia Bradycardia, sinus Rupture of right biceps tendon Cataracts, bilateral Epidermal inclusion cyst Lipoma of head Anxiety and depression Pancreatitis Hyperlipidemia (Last Reviewed 01/27/24 @ 16:46 by Jameson Godfrey MD) History of bilateral inguinal hernia repair Postoperative state S/P bilateral inguinal hernia repair, follow-up exam S/P cardiac pacemaker procedure (~03/2023) S/P colonoscopy (~05/02/19) Total knee replacement status S/P shoulder surgery S/P coronary artery stent placement S/P hernia repair Most Recent Vital Signs Temperature 37.1 C 01/27/24 17:49 Temperature Source Tympanic 01/27/24 17:49 Pulse 70 01/27/24 17:49 Respiratory Rate 14 01/27/24 17:49 Respiratory Effort Normal 01/27/24 12:31 Blood Pressure 151/81 H 01/27/24 17:49 Blood Pressure Position Sitting 01/27/24 12:25 Pulse Oximetry 96 01/27/24 17:49 Oxygen Delivery Method Room Air 01/27/24 17:49 Oxygen Flow Rate 0 01/27/24 17:49 Pain Level 0 01/27/24 17:49 Allergies oxycodone Adverse Reaction (Intermediate, Verified 01/27/24 10:46) He goes a little wacky Precautions Isolation Standard precaution 01/27/24 12:31 IV IV Catheter Type [right AC] Saline Lock IV Catheter Type [Right Saline Lock Forearm] IV Catheter Gauge [right AC] 20 IV Catheter Gauge [Right 20 Forearm] Diagnostics 01/27/24 01/27/24 Range/Units 12:41 11:51 WBC 5.96 (4.4-10.8) 10^3/uL RBC 3.61 L (4.36-5.78) 10^6/uL Hgb 10.5 L (13.5-17.5) g/dL Hct 32.9 L (40.0-50.0) % MCV 91 (80-95) fL MCH 29.1 (27.0-33.0) pg MCHC 31.9 L (32.0-36.0) % RDW 15.5 H (11.8-14.1) % Plt Count 250 (130-400) 10^3/uL MPV 9.4 (8.0-11.0) fL Immature Gran % 0.5 % Neutrophils % 65.5 % Lymphocytes % 16.8 % Monocytes % 12.8 % Eosinophils % 3.4 % Basophils % 1.0 % Nucleated RBC % 0.0 (0.0-0.3) % Absolute Neutrophils 3.91 (1.2-6.7) 10^3/uL Absolute Lymphocytes 1.00 L (1.2-3.4) 10^3/uL Absolute Monocytes 0.76 (0.1-0.8) 10^3/uL Absolute Eosinophils 0.20 (0.0-0.7) 10^3/uL Absolute Basophils 0.06 (0.0-0.2) 10^3/uL ESR 19 (0-20) mm/hr Sodium 142 (136-145) mmol/L Potassium 3.6 (3.5-5.1) mmol/L Chloride 106 (98-107) mmol/L Carbon Dioxide 28.6 (21.0-32.0) mmol/L Anion Gap 7.4 (3-11) mmol/L BUN 16 (7-18) mg/dL Creatinine 0.9 (0.70-1.30) mg/dL Est GFR (CKD-EPI 2020) 86.88 (mL/min/1.73m2) Glucose 103 (74-106) mg/dL Calcium 9.1 (8.5-10.1) mg/dL Total Bilirubin 1.91 H (0.2-1.0) mg/dL AST 23 (15-37) U/L ALT 17 (16-63) U/L Alkaline Phosphatase 221 H (46-116) U/L C-Reactive Protein 3.00 H (<or=0.5) mg/dL Total Protein 7.4 (6.4-8.2) g/dL Albumin 3.7 (3.4-5.0) g/dL Fluid Source Synovial Fluid Color Yellow Fluid Clarity Cloudy Fluid WBC 8207 (0) uL Fld Polynuclear WBCs % 90 % Fluid Mononuclear Cell 10 % Fluid Crystals No Crystals seen Fluid Crystal Source Synovial Path Cons Comment Y 01/27/24 17:28 Blood Culture - Pending Blood 01/27/24 17:28 Blood Culture - Pending Blood 01/27/24 11:51 Body Fluid Culture - Pending Synovial - Left Knee Gram Stain - Final Intake and Output - 24 Hour Total 01/27/24 12:18 thru 01/27/24 17:50 Intake Total 450 Balance 450 Weight 89.499 kg Intake: IV 450 Falls Risk Assessment History of Falls Previous History 01/27/24 12:31 Contributing Factors Confusion 01/27/24 12:31 Ambulatory Aids Independent 01/27/24 12:31 Tubes/Lines None 01/27/24 12:31 Gait Evaluation W/any additional score 01/27/24 12:31 Fall Total Score 38 01/27/24 12:31 Level of Risk Moderate Risk 01/27/24 12:31 Problems (Last Reviewed 01/27/24 @ 16:46 by Jameson Godfrey MD) Septic arthritis of knee, left (Acute) v v v v v v v v v Sending and/or Receiving Nurses: Please use comment section below to note any information pertinent to the patient hand-off not included above. Information / Comments: Report taken from MARY Killian from ER dept. Patient is pleasantly demented. a 78 yo.male, was sent by ortho clinic Lt knee aspiration, found with synovial fluid. Uses cane at home.; with two IID. on right FA. 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 Report received from:
[2024-01-27 18:41] VITALS: BP 136/102; PULSE 64; RESP 20; TEMP 36.2; O2SAT 96
[2024-01-27 20:05] VITALS: BP 141/98; PULSE 71; RESP 20; TEMP 36.4; O2SAT 96
[2024-01-27] MEDS: Normal Saline Flush 10 ML SYR IVP ×2 (20:25→20:26)
[2024-01-27] MEDS: QUEtiapine 25 MG TAB PO (20:52)
[2024-01-27] MEDS: Apixaban 5 MG TAB PO (20:52)
[2024-01-27] MEDS: Finasteride 5 MG TAB PO (20:52)
[2024-01-27] MEDS: Acetaminophen 325 MG TAB PO (23:34)
[2024-01-28] VITALS (7 sets, daily range): BP systolic 97–149; BP diastolic 71–88; PULSE 70–83; RESP 15–20; TEMP 36.1–36.8; O2SAT 94–98
[2024-01-28] MEDS: VANCOMYCIN/WATER (PEG) 1 GM/200 ML BAG IV ×2 (03:52→16:15)
[2024-01-28] MEDS: Normal Saline Flush 10 ML SYR IVP ×7 (03:52→19:37)
[2024-01-28 06:51] LABS: HCT 35.2 % (40.0-50.0); HGB 11.2 g/dL (13.5-17.5); MCH 28.7 pg (27.0-33.0); MCHC 31.8 % (32.0-36.0); MCV 90 fL (80-95); Platelet Count 252 10^3/uL (130-400); RDW 15.1 % (11.8-14.1); RDW-SD 49.3 fL; WBC 6.26 10^3/uL (4.4-10.8)
[2024-01-28 07:03] LABS: Anion Gap 9.4 mmol/L (3-11); BUN 14 mg/dL (7-18); CO2 27.6 mmol/L (21.0-32.0); CREATININE 0.8 mg/dL (0.70-1.30); Calcium 9.3 mg/dL (8.5-10.1); Chloride 103 mmol/L (98-107); Estimated GFR 90.02 (mL/min/1.73m2); Glucose 110 mg/dL (74-106); Magnesium 1.8 mg/dL (1.8-2.4); Potassium 3.4 mmol/L (3.5-5.1); Sodium 140 mmol/L (136-145)
[2024-01-28] MEDS: Folic Acid 1 MG TAB PO (08:07)
[2024-01-28] MEDS: Potassium Chloride 20 MEQ TABCR PO (08:07)
[2024-01-28] MEDS: Cholecalciferol (Vitamin D3) 1,000 UNIT TAB 2000 UNITS PO (08:07)
[2024-01-28] MEDS: amLODIPine 10 MG TAB PO (08:07)
[2024-01-28] MEDS: Apixaban 5 MG TAB PO ×2 (08:07→19:38)
[2024-01-28] MEDS: Spironolactone 25 MG TAB 12.5 MG PO (08:07)
[2024-01-28] MEDS: buPROPion-XL 150 MG TABCR PO (08:07)
--- NOTE | 2024-01-28 09:44 | INITIAL_ITS ---
Date of service: 01/28/24 Time of Service: 09:44 [facility] Assessment Reason for Hospitalization: septic arthritis Functional Status/Living Situation Patient Presentation: Nader was sitting up in a chair visiting with his Nelia when CM met with him. He engaged easily with CM, stating, I know you, we have met before. CM acknowledged that they had worked together during previous hospital stays. Nader was admitted with septic arthritis of the left knee. He had had surgery at [facility] on his knee before and would be referred back to them if surgery is indicated. He is currently receiving IV antibiotics and reports less pain. To date there is no growth from the wound culture done in Dr. Carroll's office yesterday so the plan of care is not clearly established. His Nelia informed CM that if he does need surgery it would be their preference as well to return to [facility] for the procedure. Town of Residence: [facility] with Resides with: Spouse (lives in a single family home with and 3 of their sons. They have 7 other children who are living independently elsewhere.) Significant Other/Family: Local Employment Status: Retired ([employer]) Instrumental Activities of Daily Living (ADLs): Requires support Medications Medication Management: No Issues/Barriers identified Advance Directives Advance Directives: Do you have an Advance Directive: Y 11/07/21 14:38 AD On File at [facility]: Y 11/07/21 14:38 Date Asked 12/09/23 01/28/24 08:21 AD Date Reviewed 01/27/24 01/28/24 08:20 COLST On File at [facility] COLST Date Scanned Code Status Resuscitation Status Full Code Insurance Coverage/Financial Issues Insurance: [facility] Care Team Visit Care Team Role Provider Type Jessie Bose NP Primary Care Provider NURSE PRACTITIONER Chandra Crystal MD Emergency Provider [facility] STAFF PHYSICIAN Cory Kinney MD Admit Provider [facility] STAFF PHYSICIAN Attending Provider Discharge Potential Discharge Needs: PCP F/U Appt and Surgical F/U Appt ([facility] Orthopedics) Anticipated Barriers to Discharge: None Identified Patient/Family Education Needs: Review discharge instructions, discuss Ask Me Three Transportation: Private vehicle Plan: Anticipate Nader will be discharged home when medically cleared. He will follow up with his community providers and plan of care and transport with family. CM will follow and continue to support discharge needs. PFSH All Active Problems (Updated 01/28/24 @ 11:15 by Rogelio Carroll MD) Infection of prosthetic left knee joint (Acute) Septic arthritis of knee, left (Acute) Knee effusion, left (Acute) Hematoma (Acute) Chronic anticoagulation (Acute) Hematoma of left lower extremity (Acute) Dementia with behavioral disturbance (Acute ~11/2023) Quetiapine Hypokalemia (Acute) Dementia, unspecified, without behavioral disturbance (Chronic) Delirium due to another medical condition (Acute) Folate deficiency (Acute) Mild anemia (Acute ~07/2023) Recurrent falls while walking (Acute ~2023) Impaired gait and mobility (Acute ~2023) Hallucinations (Acute) Memory difficulty (Acute ~07/2023) PAF (paroxysmal atrial fibrillation) (Chronic ~07/2023) [facility] Cardio-07/20/23 Pacemaker (Acute ~03/2023) [facility] 03/23/2023 Rotator cuff arthropathy of left shoulder (Acute) subacromial corticosteroid injection 10/28/22 Primary hypertension (Chronic) BPH (benign prostatic hyperplasia) (Chronic) RX Finasteride Glaucoma (Chronic) 09/05/19 [place] Depression (Chronic) Long-term RX Wellbutrin Diverticulosis (Chronic) 2019 colonoscopy Sinus node dysfunction (Chronic) [facility] Cardiolgy; stay off of BB Obesity (Chronic) Tubular adenoma (Chronic 10/04/08) Colonoscopy 10/04/15 & repeat 2019 (13!) Diabetes type 2, controlled (Chronic) Dx'ed in 1970s COPD (chronic obstructive pulmonary disease) (Acute) Coronary artery disease (Chronic) [facility] [place] 1998 with angina; cath in 1998 1-vessel dis Obstructive sleep apnea (Chronic) h/o CPAP; clausterphobic with masks so stopped using; then 100# weight loss; referred in 11/2019 but he declined Medical History Alcoholism in remission Calf swelling Leg pain, right Pelvic hematoma in male Swollen penis SOB (shortness of breath) on exertion Myocardial infarction X2 1997, 1998 Small bowel obstruction [facility] 05/2018; 02/2023 Normochromic normocytic anemia Bradycardia, sinus 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 Rupture of right biceps tendon PT Cataracts, bilateral 09/05/19 [place] OS>>OD Epidermal inclusion cyst Lipoma of head Removed 04/2019 [place] Anxiety and depression Pancreatitis [facility] 05/2018 (mild) Hyperlipidemia Atorvastatin Surgical History History of bilateral inguinal hernia repair Postoperative state S/P bilateral inguinal hernia repair, follow-up exam S/P cardiac pacemaker procedure (~03/2023) S/P colonoscopy (~05/02/19) 09/2015- [place]- Tubular adenomas x2 05/2019--Brain x13 tubular adenomas Total knee replacement status R 12/11/2013 L S/P shoulder surgery S/P coronary artery stent placement 04/30/19 per pt he does not have a stent. 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 Pets and animals: Yes Sexually active: Yes Do you think of yourself as: straight/heterosexual Current gender identity: male What is your relationship status?: living with partner How often do you get together with friends or relatives?: twice per week Panel score (0-1 are the most socially isolated patients): 1 What type of physical activity do you participate in: walking Duration: > 90 minutes/day Frequency: 3-4 times per week Desirae/Religious: Sabianist Special desirae needs: No Seatbelt use: always Drive intox or ride w/intox dumpster driver: No Do you feel safe at home: Yes Do you feel safe in your relationship?: Yes Additional Social history: answering for pt SDOH(Care Management) Screening Will the Patient Participate in the Screening?: Yes Do you worry about having a steady place to live?: no Problems where you live: no known problems In the past 12 months, have you had to go without electric, gas, oil or water in your home?: no Have you or anyone in your house had to go without enough food to eat?: no Has lack of transportation kept you from medical appointments or from doing things needed for daily living?: no Has anyone in your support network made you feel unsafe for any reason?: no Social Determinants of Health Comments(SDOH Details): no needs at this time. Health Related Social Needs Health related social needs details: HXO dementia
--- NOTE | 2024-01-28 11:14 | OCONE_ITS ---
Date of service: 01/28/24 Time of Service: 11:15 Assessment and Plan Assessment and plan (1) Infection of prosthetic left knee joint: Status: Acute Assessment and plan: Evaluated by orthopedic PA yesterday in office with concerns for Left knee prosthetic joint infection. See his note for details. 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 Admitted to [facility] hospitalist service last night due to lack of other options. Continue to recommend transfer to tertiary care facility for definitive management, which may involve knee replacement irrigation debridement, potential explantation, and single or staged revision - surgeries I do not do here as they are typically done by an arthroplasty specialist at a facility with infectious disease specialists. In the meanwhile, continue antibiotics, follow cultures, and supportive care. If a reasonable outpatient plan can be made, it could be considered as well. PFSH All Active Problems (Updated 01/28/24 @ 11:15 by Rogelio Carroll MD) Infection of prosthetic left knee joint (Acute) Septic arthritis of knee, left (Acute) Knee effusion, left (Acute) Hematoma (Acute) Chronic anticoagulation (Acute) Hematoma of left lower extremity (Acute) Dementia with behavioral disturbance (Acute ~11/2023) Quetiapine Hypokalemia (Acute) Dementia, unspecified, without behavioral disturbance (Chronic) Delirium due to another medical condition (Acute) Folate deficiency (Acute) Mild anemia (Acute ~07/2023) Recurrent falls while walking (Acute ~2023) Impaired gait and mobility (Acute ~2023) Hallucinations (Acute) Memory difficulty (Acute ~07/2023) PAF (paroxysmal atrial fibrillation) (Chronic ~07/2023) [facility] [place] Pacemaker (Acute ~03/2023) [facility] [place]23/2023 Rotator cuff arthropathy of left shoulder (Acute) subacromial corticosteroid injection 10/28/22 Primary hypertension (Chronic) BPH (benign prostatic hyperplasia) (Chronic) RX Finasteride Glaucoma (Chronic) 09/05/19 [place] Depression (Chronic) Long-term RX Wellbutrin Diverticulosis (Chronic) 2019 colonoscopy Sinus node dysfunction (Chronic) [facility] [place]; stay off of BB Obesity (Chronic) Tubular adenoma (Chronic 10/04/08) Colonoscopy 10/04/15 & repeat 2019 (13!) Diabetes type 2, controlled (Chronic) Dx'ed in 1970s COPD (chronic obstructive pulmonary disease) (Acute) Coronary artery disease (Chronic) [facility] [employer] Work[employer] [place] 1998 with angina; cath in 1998 1-vessel dis Obstructive sleep apnea (Chronic) h/o CPAP; clausterphobic with masks so stopped using; then 100# weight loss; referred in 11/2019 but he declined Medical History Alcoholism in remission Calf swelling Leg pain, right Pelvic hematoma in male Swollen penis SOB (shortness of breath) on exertion Myocardial infarction X2 1997, 1998 Small bowel obstruction [facility] 05/2018; 02/2023 Normochromic normocytic anemia Bradycardia, sinus 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 Rupture of right biceps tendon PT Cataracts, bilateral 09/05/19 [place] OS>>OD Epidermal inclusion cyst Lipoma of head Removed 04/2019 [place] Anxiety and depression Pancreatitis [facility] 05/2018 (mild) Hyperlipidemia Atorvastatin Surgical History History of bilateral inguinal hernia repair Postoperative state S/P bilateral inguinal hernia repair, follow-up exam S/P cardiac pacemaker procedure (~03/2023) S/P colonoscopy (~05/02/19) 09/2015- [place]- Tubular adenomas x2 05/2019--Brain x13 tubular adenomas Total knee replacement status R 12/11/2013 L S/P shoulder surgery S/P coronary artery stent placement 04/30/19 per pt he does not have a stent. 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 Pets and animals: Yes Sexually active: Yes Do you think of yourself as: straight/heterosexual Current gender identity: male What is your relationship status?: living with partner How often do you get together with friends or relatives?: twice per week Panel score (0-1 are the most socially isolated patients): 1 What type of physical activity do you participate in: walking Duration: > 90 minutes/day Frequency: 3-4 times per week Desirae/Jehovah'S Witness: Adventist Special desirae needs: No Seatbelt use: always Drive intox or ride w/intox tram driver: No Do you feel safe at home: Yes Do you feel safe in your relationship?: Yes Additional Social history: answering for pt Results Last Vital Signs Temp 97.0 F L 01/28/24 11:12 Pulse 83 01/28/24 11:12 Resp 18 01/28/24 11:12 BP 106/81 01/28/24 11:12 Pulse Ox 98 01/28/24 11:12 Labs 01/28/24 06:12 01/28/24 06:12 Labs: Laboratory Results - last 24 hr 01/27/24 01/27/24 01/28/24 11:51 12:41 06:12 WBC 5.96 6.26 RBC 3.61 L 3.90 L Hgb 10.5 L 11.2 L Hct 32.9 L 35.2 L MCV 91 90 MCH 29.1 28.7 MCHC 31.9 L 31.8 L RDW 15.5 H 15.1 H Plt Count 250 252 MPV 9.4 10.0 Immature Gran % 0.5 Neutrophils % 65.5 Lymphocytes % 16.8 Monocytes % 12.8 Eosinophils % 3.4 Basophils % 1.0 Nucleated RBC % 0.0 Absolute Neutrophils 3.91 Absolute Lymphocytes 1.00 L Absolute Monocytes 0.76 Absolute Eosinophils 0.20 Absolute Basophils 0.06 ESR 19 Sodium 142 140 Potassium 3.6 3.4 L Chloride 106 103 Carbon Dioxide 28.6 27.6 Anion Gap 7.4 9.4 BUN 16 14 Creatinine 0.9 0.8 Est GFR (CKD-EPI 2020) 86.88 90.02 Glucose 103 110 H Calcium 9.1 9.3 Magnesium 1.8 Total Bilirubin 1.91 H AST 23 ALT 17 Alkaline Phosphatase 221 H C-Reactive Protein 3.00 H Total Protein 7.4 Albumin 3.7 Fluid Source Synovial Fluid Color Yellow Fluid Clarity Cloudy Fluid WBC 8207 Fld Polynuclear WBCs % 90 Fluid Mononuclear Cell 10 Fluid Crystals No Crystals seen Fluid Crystal Source Synovial Path Cons Comment Y
--- NOTE | 2024-01-28 13:11 | PHA.REVIEW2 ---
Pharmacy Admission Review Admission Clinical Review Admission Pharmacy Review: Infection of prosthetic left knee joint (Acute) Septic arthritis of knee, left (Acute) Dementia with behavioral disturbance (Acute ~11/2023) COPD (chronic obstructive pulmonary disease) (Acute) oxycodone Adverse Reaction (Intermediate, Verified 01/27/24 10:46) He goes a little wacky Resuscitation Status Full Code Height 5 ft 9 in Weight 89.358 kg Pharmacy Admission Review Renal Dosing Renal Dosing: BUN 14 mg/dL (7-18) 01/28/24 06:12 Creatinine 0.8 mg/dL (0.70-1.30) 01/28/24 06:12 Medications needing adjustments: Reviewed (CrCl 66.22 mL/min) List of meds needing interventions: Current medications are okay Anticoagulation Anticoagulation: Hgb 11.2 g/dL (13.5-17.5) L 01/28/24 06:12 Hct 35.2 % (40.0-50.0) L 01/28/24 06:12 Plt Count 252 10^3/uL (130-400) 01/28/24 06:12 Creatinine 0.8 mg/dL (0.70-1.30) 01/28/24 06:12 DVT Prophylaxis: Reviewed Medications: Apixaban (5mg PO BID) Relevant Labs Relevant Labs: ESR 19 mm/hr (0-20) 01/27/24 12:41 Sodium 140 mmol/L (136-145) 01/28/24 06:12 Potassium 3.4 mmol/L (3.5-5.1) L 01/28/24 06:12 Chloride 103 mmol/L (98-107) 01/28/24 06:12 Magnesium 1.8 mg/dL (1.8-2.4) 01/28/24 06:12 C-Reactive Protein 3.00 mg/dL (<or=0.5) H 01/27/24 12:41 Electrolytes, C-Reactive P, ESR: Reviewed (K 3.4 - 20 mEq PO daily, ) Cardiac Review Cardiac Review: Blood Pressure 106/81 1112 Blood Pressure 149/80 0728 Blood Pressure 133/88 0359 BP, HR, EF%: Reviewed (HR WNL) QTc Review QTc: Reviewed (484 from 01/27/24) IV to PO Switch IV Medications: Reviewed (ceftriaxone and vancomycin) Home Meds Home Med List reviewed: Reviewed Relevent Home Meds Not ordered & why?: loperamide (PRN) Current Meds Current Medication Order Review: Intervened Comments: Changed quetiapine 25mg order from 1HS PRN to 1BID PRN based on home med list and prescription fill information Pharmacy Antibiotic Review Relevant Labs: Relevant Labs 01/27/24 12:41 C-Reactive Protein 3.00 H WBC 6.26 10^3/uL (4.4-10.8) 01/28/24 06:12 Temperature 36.1 C Temperature 36.6 C Temperature 36.5 C Microbiology 01/27/24 11:51 Body Fluid Culture - Preliminary Synovial - Left Knee Gram Stain - No growth at 24 hours Pharmacy Antibiotic Activity: C/S review and Reviewed, no change Comments: Patient is on ceftriaxone and vancomycin day 1 for septic arthritis. Vancomycin trough pending today at 1400, current moura 1000mg q12h with predicted AUC of 537 and trough of 17.6. Blood cultures are pending.
[2024-01-28 14:43] LABS: Vancomycin, Random 14.1 ug/mL
[2024-01-28] MEDS: cefTRIAXone 1 GM/50 ML BAG IVPB (15:35)
--- NOTE | 2024-01-28 15:44 | CHAPLAIN ---
Corona was sitting up in the chair when I visited, wearing his own clothes. He said he's been wearing his own clothes since he was admitted. His has been in to visit him. Corona lives [place] [facility] [address] in [facility], [place] family has lived for 68 years. I explained my role and offered support.
--- NOTE | 2024-01-28 18:06 | W.PM.PROGNOT ---
Date of Service Date of service: 01/28/24 Time of Service: 18:06 Assessment and Plan Assessment and plan (1) Septic arthritis of knee, left: Status: Acute Assessment and plan: -patient initially presented to orthopedics office where cloudy fluid was aspirated from his swollen left knee, concern for septic knee -Would need surgery at tertiary care, [place] was done [place] [facility], but they were unable to take patient due to lack of bed availability, [facility] was also at capacity -patient admitted for initial management with antibiotics -Treating with vanc and CTX started in the ED, day #2 -synonasure testing negative suggesting this may not actually be an infection. -f/u joint aspirate culture results before considering discharge and follow up with orthopedics -appreciate Dr. Manley's guidance. (2) PAF (paroxysmal atrial fibrillation): Status: Chronic Assessment and plan: -continue home eliquis and sotalol (3) Coronary artery disease: Status: Chronic Assessment and plan: -continue home atorvastatin 80mg HS. he is on apixaban but not ASA as outpatient, no change. Qualifiers: Coronary Disease-Associated Artery/Lesion type: unspecified vessel or lesion type [place] vs. transplanted heart: [place] heart Associated angina: with stable angina Qualified Code(s): I25.118 - Atherosclerotic heart disease of [place] coronary artery with other forms of angina pectoris (4) Primary hypertension: Status: Chronic Assessment and plan: -continue home amlodipine and spironolactone (5) COPD (chronic obstructive pulmonary disease): Status: Acute Assessment and plan: -no acute exacerbation, continue home inhaler regimen Qualifiers: COPD type: emphysema Emphysema type: unspecified Qualified Code(s): J43.9 - Emphysema, unspecified (6) Dementia with behavioral disturbance: Status: Acute Assessment and plan: -continue home mirtazapine Subjective Subjective Patient reports: feels better; denies diarrhea, nausea, vomiting, shortness of breath or fever Interval history since last seen: Leg is feeling better. It hurts a little still but less. He has been eating and does not feel sick. He is walking with a cane. Exam Narrative Exam Narrative: well appearing gentleman sitting up in the chair in no acute distress, alert and oriented though a little vague about history. Heart RRR, lungs CTAB, abdomen soft, non-tender, non-distended, left knee swollen and warm but without erythema. Has ROM to 90 degrees without pain. Objective Last Vital Signs Temp 36.8 C 01/28/24 15:31 Pulse 76 01/28/24 15:31 Resp 18 01/28/24 15:31 BP 132/80 01/28/24 15:31 Pulse Ox 96 01/28/24 15:31 Laboratory Results - last 24 hr 01/27/24 01/28/24 01/28/24 11:51 06:12 13:57 WBC 6.26 RBC 3.90 L Hgb 11.2 L Hct 35.2 L MCV 90 MCH 28.7 MCHC 31.8 L RDW 15.1 H Plt Count 252 MPV 10.0 Sodium 140 Potassium 3.4 L Chloride 103 Carbon Dioxide 27.6 Anion Gap 9.4 BUN 14 Creatinine 0.8 Est GFR (CKD-EPI 2020) 90.02 Glucose 110 H Calcium 9.3 Magnesium 1.8 Random Vancomycin 14.1 Path Cons Comment SEE COMMENT Time Spent with Patient Time Spent with Patient: 35-49 minutes Time was spent: preparing to see the patient(eg.review tests), obtaining and/or reviewing separately otained hiistory, ordering medications,tests, procedures, referring, communicating with other health day care center director, indepentently interpreting results, counseling the patient and care coordination
[2024-01-28] MEDS: Atorvastatin 40 MG TAB 80 MG PO (19:37)
[2024-01-28] MEDS: Acetaminophen 325 MG TAB PO (19:37)
[2024-01-28] MEDS: Finasteride 5 MG TAB PO (19:38)
[2024-01-28] MEDS: QUEtiapine 50 MG TAB PO (19:38)
[2024-01-28] MEDS: Mirtazapine 15 MG TAB 7.5 MG PO (19:39)
[2024-01-29] MEDS: VANCOMYCIN/WATER (PEG) 1 GM/200 ML BAG IV ×2 (03:42→17:02)
[2024-01-29] MEDS: Normal Saline Flush 10 ML SYR IVP ×3 (03:42→07:52)
[2024-01-29 03:49] VITALS: BP 126/72; PULSE 71; RESP 16; TEMP 36.7; O2SAT 98
--- NOTE | 2024-01-29 07:23 | W.PC.ACHO ---
Registration Status: Primary Language: Preferred Language: ED Information & Data Chief Complaint Orthopedic 01/27/24 15:19 Triage Note concerned about swelling in 01/27/24 12:25 left knee (artificial) knee aspiration performed at orthopedic office. Subjective hxo dementia 01/27/24 12:31 Medical / Surgical History (Last Reviewed 01/27/24 @ 16:46 by Jameson Godfrey MD) Alcoholism in remission Calf swelling Leg pain, right Pelvic hematoma in male Swollen penis SOB (shortness of breath) on exertion Myocardial infarction Small bowel obstruction Normochromic normocytic anemia Bradycardia, sinus Rupture of right biceps tendon Cataracts, bilateral Epidermal inclusion cyst Lipoma of head Anxiety and depression Pancreatitis Hyperlipidemia (Last Reviewed 01/27/24 @ 16:46 by Jameson Godfrey MD) History of bilateral inguinal hernia repair Postoperative state S/P bilateral inguinal hernia repair, follow-up exam S/P cardiac pacemaker procedure (~03/2023) S/P colonoscopy (~05/02/19) Total knee replacement status S/P shoulder surgery S/P coronary artery stent placement S/P hernia repair Most Recent Vital Signs Temperature 36.7 C 01/29/24 03:49 Temperature Source Temporal Artery Scan 01/29/24 03:49 Pulse 71 01/29/24 03:49 Pulse Rhythm Regular 01/28/24 19:25 Respiratory Rate 16 01/29/24 03:49 Respiratory Effort Normal, Non-Labored 01/28/24 19:25 Respiratory Depth Normal 01/28/24 19:25 Respiratory Pattern Normal 01/28/24 19:25 Blood Pressure 126/72 01/29/24 03:49 Blood Pressure Position Sitting 01/27/24 12:25 Pulse Oximetry 98 01/29/24 03:49 Oxygen Delivery Method Room Air 01/29/24 03:49 Oxygen Flow Rate 0 01/29/24 03:49 Pain Level 0 01/29/24 03:49 Allergies oxycodone Adverse Reaction (Intermediate, Verified 01/27/24 10:46) He goes a little wacky Precautions Isolation Standard precaution 01/27/24 12:31 Active Medications Generic Name Dose Route Start Last Admin Trade Name Freq PRN Reason Stop Dose Admin Acetaminophen 0 mg 01/27/24 18:33 01/28/24 19:37 Acetaminophen 325 Mg Tab PO 325 mg Q4H PRN PRN Administration Amlodipine Besylate 10 mg 01/28/24 08:30 01/28/24 08:07 Amlodipine 10 Mg Tab PO 10 mg DAILY MARQUIS Administration Apixaban 5 mg 01/27/24 20:00 01/28/24 19:38 Apixaban 5 Mg Tab PO 5 mg BID MARQUIS Administration Atorvastatin Calcium 80 mg 01/28/24 20:00 01/28/24 19:37 Atorvastatin 40 Mg Tab PO 80 mg QPM MARQUIS Administration Bupropion HCl 150 mg 01/28/24 08:30 01/28/24 08:07 Bupropion-Xl 150 Mg Tabcr PO 150 mg QAM MARQUIS Administration Cholecalciferol 2,000 units 01/28/24 08:30 01/28/24 08:07 Cholecalciferol (Vitamin D3) 1,000 Unit Tab PO 2,000 units DAILY MARQUIS Administration Finasteride 5 mg 01/27/24 20:00 01/28/24 19:38 Finasteride 5 Mg Tab PO 5 mg HS MARQUIS Administration Folic Acid 1 mg 01/28/24 08:30 01/28/24 08:07 Folic Acid 1 Mg Tab PO 1 mg DAILY MARQUIS Administration Ceftriaxone Sodium/Dextrose 1 gm in 50 mls @ 100 mls/hr 01/28/24 16:00 01/28/24 16:15 Rocephin IVPB Infused Q24H [facility] Infusion Vancomycin/PEG/NADA/Lysine/Water 1 gm in 200 mls @ 200 mls/hr 01/28/24 04:00 01/29/24 05:21 Vancocin Injection IV Infused Q12H [facility] Infusion Mirtazapine 7.5 mg 01/28/24 20:00 01/28/24 19:39 Mirtazapine 15 Mg Tab PO 7.5 mg HS MARQUIS Administration Potassium Chloride 20 meq 01/28/24 08:30 01/28/24 08:07 Potassium Chloride 20 Meq Tabcr PO 20 meq DAILY MARQUIS Administration Quetiapine Fumarate 50 mg 01/28/24 20:00 01/28/24 19:38 Quetiapine 50 Mg Tab PO 50 mg HS MARQUIS Administration Sodium Chloride 0 ml 01/27/24 18:33 01/29/24 05:22 Normal Saline Flush 10 Ml Syr IVP 10 ml PRN PRN Administration Sodium Chloride 0 ml 01/27/24 20:00 01/28/24 19:37 Normal Saline Flush 10 Ml Syr IVP 10 ml BID MARQUIS Administration Sotalol HCl 80 mg 01/27/24 20:00 01/28/24 19:38 Sotalol 80 Mg Tab PO 80 mg BID MARQUIS Administration Spironolactone 12.5 mg 01/28/24 08:30 01/28/24 08:07 Spironolactone 25 Mg Tab PO 12.5 mg DAILY MARQUIS Administration IV IV Catheter Type [right AC] Peripheral IV IV Catheter Type [Right Saline Lock Forearm] IV Catheter Gauge [right AC] 20 IV Catheter Gauge [Right 20 Forearm] Diagnostics 01/28/24 01/27/24 Range/Units 13:57 11:51 Random Vancomycin 14.1 ug/mL Path Cons Comment SEE COMMENT 01/27/24 20:03 Blood Culture - Preliminary Blood NO GROWTH 24 HOURS 01/27/24 19:55 Blood Culture - Preliminary Blood NO GROWTH 24 HOURS 01/27/24 11:51 Body Fluid Culture - Preliminary Synovial - Left Knee Gram Stain - Final Intake and Output - 24 Hour Total 01/27/24 12:18 thru 01/29/24 06:13 Intake Total 1900 Output Total 300 Balance 1600 Weight 89.358 kg Intake: IV 1300 Oral 600 Output: Urine 300 Other: Urine Color Yellow Urine Appearance Clear Urine Odor Normal Comment unable to assess. Voiding Methods Toilet Falls Risk Assessment History of Falls Previous History 01/27/24 18:41 Contributing Factors Confusion,Impairments, 01/27/24 18:41 Incontinence Ambulatory Aids Uses ambulatory device + 01/27/24 18:41 Tubes/Lines With any additional score 01/27/24 18:41 Gait Evaluation W/any additional score 01/27/24 18:41 Cognition Cognitive impairment 01/27/24 18:41 Fall Total Score 109 01/27/24 18:41 Level of Risk Maximum Risk 01/27/24 18:41 Problems (Last Reviewed 01/27/24 @ 16:46 by Jameson Godfrey MD) Infection of prosthetic left knee joint (Acute) Septic arthritis of knee, left (Acute) Dementia with behavioral disturbance (Acute ~11/2023) PAF (paroxysmal atrial fibrillation) (Chronic ~07/2023) Primary hypertension (Chronic) COPD (chronic obstructive pulmonary disease) (Acute) Coronary artery disease (Chronic) v v v v v v v v v Sending and/or Receiving Nurses: Please use comment section below to note any information pertinent to the patient hand-off not included above. Information / Comments: Report received from: Flash
[2024-01-29 07:39] VITALS: BP 119/65; PULSE 71; RESP 18; TEMP 36.9; O2SAT 98
[2024-01-29] MEDS: Spironolactone 25 MG TAB 12.5 MG PO (07:51)
[2024-01-29] MEDS: Potassium Chloride 20 MEQ TABCR PO (07:51)
[2024-01-29] MEDS: Cholecalciferol (Vitamin D3) 1,000 UNIT TAB 2000 UNITS PO (07:51)
[2024-01-29] MEDS: Apixaban 5 MG TAB PO (07:51)
[2024-01-29] MEDS: buPROPion-XL 150 MG TABCR PO (07:52)
[2024-01-29] MEDS: amLODIPine 10 MG TAB PO (07:52)
[2024-01-29] MEDS: Folic Acid 1 MG TAB PO (07:52)
[2024-01-29 11:24] VITALS: BP 142/112; PULSE 71; RESP 18; TEMP 36.5; O2SAT 99
[2024-01-29 11:51] VITALS: BP 152/84
[2024-01-29] MEDS: Acetaminophen 325 MG TAB PO (13:27)
[2024-01-29 15:01] VITALS: BP 112/69; PULSE 81; RESP 18; TEMP 36.7; O2SAT 98
[2024-01-29] MEDS: cefTRIAXone 1 GM/50 ML BAG IVPB (16:19)
--- NOTE | 2024-01-29 17:37 | W.PM.DS.N ---
Date of service: 01/29/24 Time of Service: 17:37 DS: Diagnosis Discharge Diagnosis (1) Septic arthritis of knee, left: Status: Acute (2) PAF (paroxysmal atrial fibrillation): Status: Chronic (3) Coronary artery disease: Status: Chronic (4) Primary hypertension: Status: Chronic (5) COPD (chronic obstructive pulmonary disease): Status: Acute (6) Dementia with behavioral disturbance: Status: Acute Discharge Plan Disposition Patient Disposition: Home Condition: Good Discharge Details Reason For Visit: Septic Arthritis Admit Date/Time: 01/27/24 17:39 Admit Provider: Cory Kinney Attending Provider: Cory Kinney Primary Care Provider: Jessie Bose Hospital Course Hospital Course: 78 yo M with history of pAfib on apixaban, controlled type 2 DM, CAD, COPD, left TKA done at [facility] in 2013, and recent overnight admission 01/10 for hematoma of the left thigh from a fall, who was sent from the orthopedic clinic after cloudy fluid was aspirated from his hot, red, swollen left knee. Synnovial fluid showed 8207 WBC with 90% PMNs, no crystals. Transfer to tertiary care was initially recommended by orthopedics due to possible need for 2 stage revision of infected prosthesis, but this was not available. He was admitted here for IV antibiotics and observation. He was given ceftriaxone and vancomycin, and his knee pain and swelling improved markedly in 2 days. His Synovasure was negative and his culture of synnovial fluid was NGTD at 48, both calling into question the diagnosis of septic knee. He never had a WBC count on CBC, his ESR was 19 and CRP 3. Lyme disease was considered, which would also respond to ceftriaxone. Lyme testing of blood was done and pending at time of discharge. Blood cultures and synnovial fluid cultures were NGTD x 48 hours at the time of discharge. Case was discussed with Dr. Manley as well as Dr. Minh Emerson at [facility] Orthopedics. Dr. Emerson will coordinate with [facility] orthopedics to reach out to the patient for follow up within the next week. He was sent home on cephalexin and doxycycline (rifampin considered but avoided due to drug interactions including apixaban). He was given 1 week prescriptions. He understands that if lyme is positive, he will need the doxycycline extended to 4 weeks and if another bacteria grows, he may still need surgery. Home Meds and New Rx's Prescriptions: New doxycycline monohydrate 100 mg capsule 100 mg PO BID Qty: 14 0RF cephalexin 500 mg capsule 500 mg PO QID Qty: 28 0RF Continued atorvastatin 80 mg tablet See Rx Instructions .ROUTE .COMPLEX Qty: 90 3RF Dose Instruction: TAKE ONE TABLET BY MOUTH AT BEDTIME Rx Instructions: TAKE ONE TABLET BY MOUTH AT BEDTIME spironolactone 25 mg tablet 12.5 mg PO DAILY Patient Comments: TAKE ONE TABLET BY MOUTH EVERY DAY folic acid 1 mg tablet 1 mg PO DAILY Qty: 90 3RF (DME) AFO Brace (R foot) See Rx Instructions .Route .MEDSUPPLY Qty: 1 0RF Rx Instructions: R AFO brace for foot drop albuterol sulfate [ProAir HFA] 90 mcg/actuation HFA aerosol inhaler 1 - 2 puff Inhalation Q6H PRN Qty: 6.7 2RF Rx Instructions: SOB/wheeze nitroglycerin 0.4 mg tablet, sublingual 0.4 mg SUBLINGUAL DIRECTED Qty: 30 0RF loperamide [Imodium A-D] 2 mg tablet 2 mg PO Q6H PRN (Reason: loose stool) Qty: 90 12RF finasteride [Proscar] 5 mg tablet 5 mg PO HS Qty: 90 3RF quetiapine 50 mg tablet See Rx Instructions PO QHS Qty: 90 1RF Rx Instructions: Take 50mg by mouth nightly at bedtime for depression; may take 1/2 tab (25mg) BID PRN agitation acetaminophen [Tylenol] 325 mg capsule 1,000 mg PO Q6H PRN (Reason: fever or pain) bupropion HCl 150 mg tablet extended release 24 hr 150 mg PO QAM Qty: 90 3RF Rx Instructions: Changed to ONCE PER DAY dosing--take in AM mirtazapine 7.5 mg tablet 7.5 mg PO QHS Qty: 90 3RF Rx Instructions: New RX 12/13/23 for depression, anxiety, sleep sotalol 80 mg tablet 80 mg PO BID Qty: 180 1RF Eliquis 5 mg tablet 5 mg PO BID Qty: 60 0RF Rx Instructions: 1-month courtesy supply until can get RX from [facility] cardiology potassium chloride 20 mEq tablet extended release 20 meq PO DAILY Qty: 90 3RF Rx Instructions: Hypokalemia amlodipine 10 mg tablet See Rx Instructions .ROUTE .COMPLEX Qty: 90 3RF Dose Instruction: TAKE ONE TABLET BY MOUTH EVERY DAY Rx Instructions: TAKE ONE TABLET BY MOUTH EVERY DAY cholecalciferol (vitamin D3) [Vitamin D3] 50 mcg (2,000 unit) Capsule 50 mcg PO DAILY furosemide 40 mg tablet 20 mg PO .COMPLEX Patient Comments: TAKE ONE TABLET BY MOUTH TWICE A DAY Rx Instructions: 20 mg orally Every Other Day; Discharge Instructions Additional Instructions: Take the antibiotics from the pharmacy starting tomorrow morning 01/29. You should be getting a call this week from [facility] orthopedics to schedule follow up. You will get a call from [facility] if the Lyme test is positive. If so, you will need an additional 3 weeks of antibiotics to clear the infection. Come back to the hospital if the knee gets worse again Activity:: Activity as Tolerated Equipment/Supplies:: No Equipment Needed Diet:: As Tolerated Discharge Orders Discharge Orders: Discharge Order (Routine); Ordered 01/29/24 Ordered By: Felipe Silva DS: Summary Time Spent with Patient providing and/or coordinating discharge services: Greater than 30 minutes Status at Discharge Functional status at discharge: uses cane/walker Overall status at discharge: patient is back to baseline Mental Status: mental status grossly normal Speech and Movement: speech and movement normal Mood: congruent mood Affect: normal affect Quality:SDOH Health Related Social Needs: Health related social needs details HXO dementia Health related social needs details: HXO dementia Exam Narrative Exam Narrative: well appearing gentleman standing up and walking with cane, no acute distress, alert and oriented though a little vague about history. Heart RRR, lungs CTAB, abdomen soft, non-tender, non-distended, left knee swollen and less warm, no erythema. Has ROM to 5-90 degrees without pain. Psych Mental Status: mental status grossly normal Speech and Movement: speech and movement normal Mood: congruent mood Affect: normal affect DS: Data Vitals/I&O Vitals and I&O: Vital Signs Temperature 36.7 C 01/29/24 15:01 Temperature Source Temporal Artery Scan 01/29/24 15:01 Pulse 81 01/29/24 15:01 Pulse Rhythm Regular 01/29/24 07:30 Respiratory Rate 18 01/29/24 15:01 Respiratory Effort Normal, Non-Labored 01/29/24 07:30 Respiratory Depth Normal 01/29/24 07:30 Respiratory Pattern Normal 01/29/24 07:30 Blood Pressure 112/69 01/29/24 15:01 Blood Pressure Position Sitting 01/27/24 12:25 Pulse Oximetry 98 01/29/24 15:01 Oxygen Delivery Method Room Air 01/29/24 15:01 Oxygen Flow Rate 0 01/29/24 15:01 Pain Level 3 01/29/24 13:27 Comment RN informed of BP 01/29/24 11:35 Intake & Output 01/28/24 01/29/24 01/29/24 23:59 11:59 23:59 Intake Total 1050 / 1250 200 / 440 240 / 440 Output Total 300 / 300 Balance 750 / 950 200 / 440 240 / 440 Intake: IV 450 / 650 200 / 200 Oral 600 / 600 240 / 240 Output: Urine 300 / 300 Other: Urine Color Yellow Yellow Urine Appearance Clear Clear Urine Odor Normal Comment unable to assess. at this time Voiding Methods Toilet Toilet Toilet Data Completed and Pending Labs on day of discharge: Labs from last 24 hours 01/28/24 13:57 Lyme Disease Antibody Pending Preliminary micro results at discharge 01/27/24 11:51 Body Fluid Culture - Preliminary Synovial - Left Knee 01/27/24 20:03 Blood Culture - Preliminary Blood NO GROWTH 24 HOURS 01/27/24 19:55 Blood Culture - Preliminary Blood NO GROWTH 24 HOURS PFSH All Active Problems (Updated 01/28/24 @ 11:15 by Rogelio Carroll MD) Infection of prosthetic left knee joint (Acute) Septic arthritis of knee, left (Acute) Knee effusion, left (Acute) Hematoma (Acute) Chronic anticoagulation (Acute) Hematoma of left lower extremity (Acute) Dementia with behavioral disturbance (Acute ~11/2023) Quetiapine Hypokalemia (Acute) Dementia, unspecified, without behavioral disturbance (Chronic) Delirium due to another medical condition (Acute) Folate deficiency (Acute) Mild anemia (Acute ~07/2023) Recurrent falls while walking (Acute ~2023) Impaired gait and mobility (Acute ~2023) Hallucinations (Acute) Memory difficulty (Acute ~07/2023) PAF (paroxysmal atrial fibrillation) (Chronic ~07/2023) [facility] Cardio-07/20/23 Pacemaker (Acute ~03/2023) [facility] 03/23/2023 Rotator cuff arthropathy of left shoulder (Acute) subacromial corticosteroid injection 10/28/22 Primary hypertension (Chronic) BPH (benign prostatic hyperplasia) (Chronic) RX Finasteride Glaucoma (Chronic) 09/05/19 [place] Depression (Chronic) Long-term RX Wellbutrin Diverticulosis (Chronic) 2019 colonoscopy Sinus node dysfunction (Chronic) [facility] Cardiolgy; stay off of BB Obesity (Chronic) Tubular adenoma (Chronic 10/04/08) Colonoscopy 10/04/15 & repeat 2019 (13!) Diabetes type 2, controlled (Chronic) Dx'ed in COPD (chronic obstructive pulmonary disease) (Acute) Coronary artery disease (Chronic) [facility] 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; cath in 1998 1-vessel dis Obstructive sleep apnea (Chronic) h/o CPAP; clausterphobic with masks so stopped using; then 100# weight loss; referred in 11/2019 but he declined Medical History Alcoholism in remission Calf swelling Leg pain, right Pelvic hematoma in male Swollen penis SOB (shortness of breath) on exertion Myocardial infarction X2 1997, 1998 Small bowel obstruction [facility] 05/2018; 02/2023 Normochromic normocytic anemia Bradycardia, sinus 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 appraiser irrigation tax Rupture of right biceps tendon PT Cataracts, bilateral 09/05/19 [place] OS>>OD Epidermal inclusion cyst Lipoma of head Removed 04/2019 [place] Anxiety and depression Pancreatitis [facility] 05/2018 (mild) Hyperlipidemia Atorvastatin Surgical History History of bilateral inguinal hernia repair Postoperative state S/P bilateral inguinal hernia repair, follow-up exam S/P cardiac pacemaker procedure (~03/2023) S/P colonoscopy (~05/02/19) 09/2015- [place]- Tubular adenomas x2 05/2019--Brain x13 tubular adenomas Total knee replacement status R 12/11/2013 L S/P shoulder surgery S/P coronary artery stent placement 04/30/19 per pt he does not have a stent. 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 Pets and animals: Yes Sexually active: Yes Do you think of yourself as: straight/heterosexual Current gender identity: male What is your relationship status?: living with partner How often do you get together with friends or relatives?: twice per week Panel score (0-1 are the most socially isolated patients): 1 What type of physical activity do you participate in: walking Duration: > 90 minutes/day Frequency: 3-4 times per week Desirae/Restoration: [employer] Special desirae needs: No Seatbelt use: always Drive intox or ride w/intox short haul driver: No Do you feel safe at home: Yes Do you feel safe in your relationship?: Yes Additional Social history: answering for pt Time Spent with Patient Time Spent with Patient: 45-69 minutes Time was spent: preparing to see the patient(eg.review tests), obtaining and/or reviewing separately otained hiistory, ordering medications,tests, procedures, referring, communicating with other health pulmonary care nurse, indepentently interpreting results, counseling the patient and care coordination
[2024-01-29] MEDS: Doxycycline Hyclate 100 MG CAP PO (17:41)
[2024-01-31 11:21] LABS: Lyme Ab w Rflx to Lyme Confirm Negative (Negative)
== END 2024-01-29 18:43 | disposition home or self-care (01) | DRG 560 ==
LOC: ER 18:07 → MS 18:32
PROVIDERS: Family Medicine; Student in an Organized Health Care Education/Training Program; Admitting Provider Family Medicine; Emergency Provider Emergency Medicine; PCP Nurse Practitioner Adult Health; Visit Provider Family Medicine
DX: T84.54XA Infection and inflammatory reaction due to internal left knee prosthesis, initial encounter (principal); A69.23 Arthritis due to Lyme disease; F03.918 Unspecified dementia, unspecified severity, with other behavioral disturbance; M00.9 Pyogenic arthritis, unspecified; I48.0 Paroxysmal atrial fibrillation; J43.9 Emphysema, unspecified; I10 Essential (primary) hypertension; I25.118 Atherosclerotic heart disease of native coronary artery with other forms of angina pectoris; Z95.0 Presence of cardiac pacemaker; Z79.01 Long term (current) use of anticoagulants; F32.A Depression, unspecified; E11.9 Type 2 diabetes mellitus without complications; R26.89 Other abnormalities of gait and mobility; D64.9 Anemia, unspecified; E53.8 Deficiency of other specified B group vitamins; N40.0 Benign prostatic hyperplasia without lower urinary tract symptoms; E66.9 Obesity, unspecified; R41.3 Other amnesia; F10.21 Alcohol dependence, in remission; E78.5 Hyperlipidemia, unspecified; Z96.653 Presence of artificial knee joint, bilateral; Z95.5 Presence of coronary angioplasty implant and graft
CPT/HCPCS: 00123; 36415; 80048; 80053; 85027; 85652; 87040; 93005; 96365; 96366; 96367; 99222; 99285; 80202; 83735; 85025; 86140; 86618; 87070; 87205; 89051; 89060; 93010; 99223; 99232; 99239; J0696; J3372

== ENCOUNTER 2024-01-27 13:37 | Outpatient (CLI) | payer OTHER, SELFPAY ==
--- NOTE | 2024-01-27 11:45 | DI.RAD_ITS ---
Exam(s) XR KNEE LT 2V AP,LAT EXAM: XR KNEE LT 2V AP,LAT INDICATION: LEFT KNEE PAIN. COMPARISON: CR RIGHT KNEE COMPLETE from 07/04/2008 CR RIGHT KNEE 3 VIEWS from 09/20/2016 CR XR KNEE RT 4V AP,LAT,KASSI,PAT from 08/18/2023 CR XR FEMUR LT from 10/21/2023 CR,XR XR FEMUR LT from 01/10/2024 TECHNIQUE: 2D digital imaging was performed. Two views. FINDINGS: A total knee prosthesis is again noted. There is an exostosis just superior to the femoral component of the prosthesis of the anterior aspect of the distal femur. This has increased in size compared t he prior exam. there is some amorphous calcification in the suprapatellar space which also appears have increased. There are patellar enthesophytes. Small joint effusion. Also some thinning of the polyethylene of the patellar component. Soft tissue edema. Vascular calcifications. Impression: Increasing size of anterior exostosis and suprapatellar CT calcifications. The findings could be sec ondary to loosening. Also question of wear of the polyethylene of the patellar component. DATA REPOSITORY: RADIATION DOSE DELIVERED:
== END 2024-01-27 13:38 | disposition home or self-care (01) ==
LOC: DIORS 13:37
PROVIDERS: PCP Nurse Practitioner Adult Health
DX: M25.462 Effusion, left knee (principal); Z96.652 Presence of left artificial knee joint
CPT/HCPCS: 20610; 99213; 73560

== ENCOUNTER → 2024-02-17 13:58 | Outpatient (BNVA) | payer OTHER, SELFPAY | PROVIDERS: PCP Nurse Practitioner Adult Health; Referring Provider Nurse Practitioner Adult Health; Visit Provider Psychiatry & Neurology Neurology | DX: R29.6 Repeated falls (principal); R41.3 Other amnesia; E53.8 Deficiency of other specified B group vitamins | CPT/HCPCS: 99214 ==

== ENCOUNTER 2024-03-21 15:14 | Emergency (ER) | payer OTHER, SELFPAY ==
[2024-03-21 15:18] VITALS: BP 169/95; PULSE 70; RESP 14; TEMP 36.9; O2SAT 97
[2024-03-21 15:50] VITALS: BP 144/73; PULSE 70; O2SAT 93
--- NOTE | 2024-03-21 16:37 | DI.CT_ITS ---
Exam(s) CT HEAD CERVICAL SPINE WO EXAM: CT HEAD CERVICAL SPINE WO CLINICAL HISTORY: fall, [place]. TECHNIQUE: Imaging Protocol: Axial computed tomography images with coronal and sagittal reformatted images were created and reviewed COMPARISON: CT CT HEAD WO from 01/10/2024 FINDINGS: CT Head: Ventricles and Extra axial spaces: Normal in size and morphology for the patient's age. Hemorrhage: None. Cerebral parenchyma: There is no evidence of an acute territorial infarct. No mass effect is identif ied. Midline shift: None. Brainstem/Cerebellum: Normal. Calvarium: Normal. Visualized Paranasal sinuses/Mastoids: Clear. Soft Tissues: Unremarkable. CT Cervical Spine: Bones: No acute fracture or subluxation. There is reversal of the normal cervical lordosis. Age-appr opriate degenerative changes are seen throughout the cervical spine. Soft Tissues: Unremarkable. Lung Apices: Clear. IMPRESSION: 1. No acute intracranial process. 2. No acute fracture or subluxation in the cervical spine. RADIATION DOSE DELIVERED: 1,320.66mGy.cm Total DLP DATA REPOSITORY: All CT scans at this facility are submitted to the National Radiology Data Registry (NRDR) Dose Index Registry (DIR) with the [employer] (A[employer]). RADIATION OPTIMIZATION: All CT scans at this facility use at least one of these dose optimization te chniques: automated exposure control; mA and/or kV adjustment per patient size (includes targeted exa ms where dose is matched to clinical indication); or iterative reconstruction.
[2024-03-21 16:41] VITALS: BP 160/83; PULSE 70; RESP 16; TEMP 36.7; O2SAT 96
--- NOTE | 2024-03-21 17:08 | W.ED.GENAD ---
Discharge Plan Disposition Patient Disposition: Home Condition: Stable Discharge Details Clinical Impression: Laceration of scalp, Head injury Primary Care Provider: Jessie Bose ED Provider: Yessica Presley Home Meds and New Rx's Prescriptions: Continued atorvastatin 80 mg tablet See Rx Instructions .ROUTE .COMPLEX Qty: 90 3RF Dose Instruction: TAKE ONE TABLET BY MOUTH AT BEDTIME Rx Instructions: TAKE ONE TABLET BY MOUTH AT BEDTIME spironolactone 25 mg tablet 12.5 mg PO DAILY Patient Comments: TAKE ONE TABLET BY MOUTH EVERY DAY folic acid 1 mg tablet 1 mg PO DAILY Qty: 90 3RF (DME) AFO Brace (R foot) See Rx Instructions .Route .MEDSUPPLY Qty: 1 0RF Rx Instructions: R AFO brace for foot drop albuterol sulfate [ProAir HFA] 90 mcg/actuation HFA aerosol inhaler 1 - 2 puff Inhalation Q6H PRN Qty: 6.7 2RF Rx Instructions: SOB/wheeze nitroglycerin 0.4 mg tablet, sublingual 0.4 mg SUBLINGUAL DIRECTED Qty: 30 0RF loperamide [Imodium A-D] 2 mg tablet 2 mg PO Q6H PRN (Reason: loose stool) Qty: 90 12RF finasteride [Proscar] 5 mg tablet 5 mg PO HS Qty: 90 3RF quetiapine 50 mg tablet See Rx Instructions PO QHS Qty: 90 1RF Rx Instructions: Take 50mg by mouth nightly at bedtime for depression; may take 1/2 tab (25mg) BID PRN agitation memantine 5 mg tablet 5 mg PO BID Qty: 60 5RF acetaminophen [Tylenol] 325 mg capsule 1,000 mg PO Q6H PRN (Reason: fever or pain) bupropion HCl 150 mg tablet extended release 24 hr 150 mg PO QAM Qty: 90 3RF Rx Instructions: Changed to ONCE PER DAY dosing--take in AM mirtazapine 7.5 mg tablet 7.5 mg PO QHS Qty: 90 3RF Rx Instructions: New RX 12/13/23 for depression, anxiety, sleep sotalol 80 mg tablet 80 mg PO BID Qty: 180 1RF Eliquis 5 mg tablet 5 mg PO BID Qty: 60 0RF Rx Instructions: 1-month courtesy supply until can get RX from [facility] [place] potassium chloride 20 mEq tablet extended release 20 meq PO DAILY Qty: 90 3RF Rx Instructions: Hypokalemia amlodipine 10 mg tablet See Rx Instructions .ROUTE .COMPLEX Qty: 90 3RF Dose Instruction: TAKE ONE TABLET BY MOUTH EVERY DAY Rx Instructions: TAKE ONE TABLET BY MOUTH EVERY DAY cholecalciferol (vitamin D3) [Vitamin D3] 50 mcg (2,000 unit) Capsule 50 mcg PO DAILY furosemide 40 mg tablet 20 mg PO .COMPLEX Patient Comments: TAKE ONE TABLET BY MOUTH TWICE A DAY Rx Instructions: 20 mg orally Every Other Day; Discharge Instructions Instructions: Wound Infection Additional Instructions: Staple removal in 7 days Tylenol as needed for discomfort Should there be vomiting or worsening headache, or any new concerns arise, please present for reassessment Referrals: Jessie Bose NP [Primary Care Provider] - Discharge Data Discharge Date/Time-TO BE ENTERED AT DEPARTURE: 03/21/24 17:51 HPI General Date/Time Provider Initiated Documentation: 03/21/24 15:34. HPI Narrative: 79-year-old male presents with report of trip and fall landing on a stump. Denies loss conscious. Takes Eliquis daily for history of paroxysmal atrial fibrillation. There is no report of loss of consciousness or dizziness or weakness. Patient has a mild headache but localized to the area of injury. Thinks his tetanus is up-to-date, 2020. Denies any neck pain or strength or sensation change. Has been ambulatory. Did hit his right elbow on the ground as well. Able to range it without difficulty per patient. No reported nausea or vomiting. Related Data Home Medications ?Medication ?Instructions ?Recorded ?Confirmed cholecalciferol (vitamin D3) 50 50 mcg PO DAILY 07/07/21 03/21/24 mcg (2,000 unit) capsule (Vitamin D3) atorvastatin 80 mg tablet See Rx Instructions .Route 08/04/23 03/21/24 .COMPLEX #90 tabs albuterol sulfate 90 mcg/actuation 1 - 2 puff inhalation Q6H PRN 08/17/23 03/21/24 aerosol inhaler (ProAir HFA) shortness of breath or wheezing #6.7 grams nitroglycerin 0.4 mg sublingual 0.4 mg sublingual DIRECTED #30 08/17/23 03/21/24 tablet tabs loperamide 2 mg tablet (Imodium 2 mg PO Q6H PRN loose stool #90 10/07/23 03/21/24 A-D) tabs apixaban 5 mg tablet (Eliquis) 5 mg PO BID #60 tabs 10/27/23 03/21/24 sotalol 80 mg tablet 80 mg PO BID #180 tabs 10/27/23 03/21/24 spironolactone 25 mg tablet 12.5 mg PO DAILY 11/11/23 03/21/24 AFO Brace (R foot) #1 ea 11/25/23 03/08/24 folic acid 1 mg tablet 1 mg PO DAILY #90 tabs 11/25/23 03/21/24 potassium chloride 20 mEq 20 meq PO DAILY #90 tabs 12/08/23 03/21/24 tablet,extended release acetaminophen 325 mg capsule 1,000 mg PO Q6H PRN fever or pain 12/13/23 03/21/24 (Tylenol) bupropion HCl 150 mg 24 hr tablet, 150 mg PO QAM #90 tabs 12/13/23 03/21/24 extended release mirtazapine 7.5 mg tablet 7.5 mg PO QHS #90 tabs 12/13/23 03/21/24 amlodipine 10 mg tablet See Rx Instructions .Route 12/27/23 03/21/24 .COMPLEX #90 tabs finasteride 5 mg tablet (Proscar) 5 mg PO HS #90 tabs 01/06/24 03/21/24 quetiapine 50 mg tablet See Rx Instructions PO QHS #90 tabs 01/06/24 03/21/24 furosemide 40 mg tablet 20 mg PO .COMPLEX 01/10/24 03/21/24 memantine 5 mg tablet 5 mg PO BID #60 tabs 02/17/24 03/21/24 Previous Rx's ?Medication ?Instructions ?Recorded atorvastatin 80 mg tablet See Rx Instructions .Route 08/04/23 .COMPLEX #90 tabs albuterol sulfate 90 mcg/actuation 1 - 2 puff inhalation Q6H PRN 08/17/23 aerosol inhaler (ProAir HFA) shortness of breath or wheezing #6.7 grams nitroglycerin 0.4 mg sublingual 0.4 mg sublingual DIRECTED #30 08/17/23 tablet tabs loperamide 2 mg tablet (Imodium 2 mg PO Q6H PRN loose stool #90 10/07/23 A-D) tabs apixaban 5 mg tablet (Eliquis) 5 mg PO BID #60 tabs 10/27/23 sotalol 80 mg tablet 80 mg PO BID #180 tabs 10/27/23 AFO Brace (R foot) #1 ea 11/25/23 folic acid 1 mg tablet 1 mg PO DAILY #90 tabs 11/25/23 potassium chloride 20 mEq 20 meq PO DAILY #90 tabs 12/08/23 tablet,extended release bupropion HCl 150 mg 24 hr tablet, 150 mg PO QAM #90 tabs 12/13/23 extended release mirtazapine 7.5 mg tablet 7.5 mg PO QHS #90 tabs 12/13/23 amlodipine 10 mg tablet See Rx Instructions .Route 12/27/23 .COMPLEX #90 tabs finasteride 5 mg tablet (Proscar) 5 mg PO HS #90 tabs 01/06/24 quetiapine 50 mg tablet See Rx Instructions PO QHS #90 tabs 01/06/24 memantine 5 mg tablet 5 mg PO BID #60 tabs 02/17/24 Allergies Allergy/AdvReac Type Severity Reaction Status Date / Time oxycodone AdvReac Intermediate He goes a Verified 03/21/24 15:21 little wacky General Stated Complaint: HeadInjury LOREN: 3 Exam Narrative Exam Narrative: Alert and oriented 79-year-old gentleman in no acute distress, pupils equal round reactive to light and accommodation, no hemotympanum, extraocular muscles intact, mild paraspinal cervical tenderness without visible evidence of trauma, lungs clear to auscultation, cardiac rate rhythm regular, no abdominal tenderness, GCS 15, alert and oriented x 4, ambulatory with steady gait Course Vital Signs Vital signs: Vital Signs Temperature 36.9 C 03/21/24 15:18 Pulse 70 03/21/24 15:18 Respiratory Rate 14 03/21/24 15:18 Blood Pressure 169/95 H 03/21/24 15:18 Pulse Oximetry 97 03/21/24 15:18 Temperature 36.7 C 03/21/24 16:41 Temperature Source Oral 03/21/24 16:41 Pulse 70 03/21/24 16:41 Respiratory Rate 16 03/21/24 16:41 Respiratory Effort Normal 03/21/24 16:01 Respiratory Depth Normal 03/21/24 16:01 Respiratory Pattern Normal 03/21/24 16:01 Blood Pressure 160/83 H 03/21/24 16:41 Blood Pressure Position Sitting 03/21/24 15:18 Pulse Oximetry 96 03/21/24 16:41 Oxygen Delivery Method Room Air 03/21/24 16:41 Oxygen Flow Rate 0 03/21/24 16:41 Pain Level 0 03/21/24 15:50 Procedures Laceration Laceration 1: Site: scalp Side (If applicable): right Size (cm): 2.5 Description: irregular Pre-repair: irrigated extensively Skin layer closed with: other (vanessa) Number of sutures: 3 Medical Decision Making 79-year-old gentleman presenting with head injury and scalp laceration. CT head and cervical spine per radiology interpretation my review does not show evidence of acute abnormality. Patient is alert and oriented in no acute distress, ambulatory steady gait. 3 vanessa were applied and patient will need these removed in 7 days. Tetanus was updated in 2020. Return precautions reviewed and patient expressed understanding Quality:SDOH Health Related Social Needs: Health related social needs details HXO dementia PFSH All Active Problems (Updated 03/21/24 @ 17:11 by CELIA Jhaveri) Head injury (Acute) Laceration of scalp (Acute) B12 deficiency (Acute) Infection of prosthetic left knee joint (Acute) Knee effusion, left (Acute) Hematoma (Acute) Chronic anticoagulation (Acute) Hematoma of left lower extremity (Acute) Dementia with behavioral disturbance (Acute ~11/2023) Quetiapine Hypokalemia (Acute) Dementia, unspecified, without behavioral disturbance (Chronic) Delirium due to another medical condition (Acute) Folate deficiency (Acute) Mild anemia (Acute ~07/2023) Recurrent falls while walking (Acute ~2023) Impaired gait and mobility (Acute ~2023) Hallucinations (Acute) Memory difficulty (Acute ~07/2023) PAF (paroxysmal atrial fibrillation) (Chronic ~07/2023) [facility] [place]io-07[place]/23 Pacemaker (Acute ~03/2023) [facility] [place] 03/23/2023 Rotator cuff arthropathy of left shoulder (Acute) subacromial corticosteroid injection 10/28/22 Primary hypertension (Chronic) BPH (benign prostatic hyperplasia) (Chronic) RX Finasteride Glaucoma (Chronic) 09/05/19 [place] Depression (Chronic) Long-term RX Wellbutrin Diverticulosis (Chronic) 2019 colonoscopy Sinus node dysfunction (Chronic) [facility] [place] Cardiolgy; stay off of BB Obesity (Chronic) Tubular adenoma (Chronic 10/04/08) Colonoscopy 10/04/15 & repeat 2019 (13!) Diabetes type 2, controlled (Chronic) Dx'ed in 1970s COPD (chronic obstructive pulmonary disease) (Acute) Coronary artery disease (Chronic) [facility] [place] [employer] [place] 1998 with angina; cath in 1998 1-vessel dis Obstructive sleep apnea (Chronic) h/o CPAP; clausterphobic with masks so stopped using; then 100# weight loss; referred in 11/2019 but he declined Medical History Alcoholism in remission Calf swelling Leg pain, right Pelvic hematoma in male Swollen penis SOB (shortness of breath) on exertion Myocardial infarction X2 1997, 1998 Small bowel obstruction [facility] 05/2018; 02/2023 Normochromic normocytic anemia Bradycardia, sinus 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 youth nutritional monitor Rupture of right biceps tendon PT Cataracts, bilateral 09/05/19 [place] OS>>OD Epidermal inclusion cyst Lipoma of head Removed 04/2019 [place] Anxiety and depression Pancreatitis [facility] 05/2018 (mild) Hyperlipidemia Atorvastatin Surgical History History of bilateral inguinal hernia repair Postoperative state S/P bilateral inguinal hernia repair, follow-up exam S/P cardiac pacemaker procedure (~03/2023) S/P colonoscopy (~05/02/19) 09/2015- [place]- Tubular adenomas x2 05/2019--Brain x13 tubular adenomas Total knee replacement status R 12/11/2013 L S/P shoulder surgery S/P coronary artery stent placement 04/30/19 per pt he does not have a stent. 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 Adopted: No Caregiver/Support person: Yes Foster care: No Household members: significant other and family Housing: house Number of Children: 5 number of grandchildren: 15 Communication Needs: Hard of Hearing and Corrective Lenses Education Level: other Details: middle school Do you need help understanding health information?: Rarely current occupation: Retired[employer] Pets and animals: Yes Sexually active: Yes Do you think of yourself as: straight/heterosexual Current gender identity: male What is your relationship status?: living with partner How often do you get together with friends or relatives?: twice per week Panel score (0-1 are the most socially isolated patients): 1 What type of physical activity do you participate in: walking Duration: > 90 minutes/day Frequency: 3-4 times per week Desirae/Restorationist: Mormon Special desirae needs: No Seatbelt use: always Drive intox or ride w/intox van driver: No Do you feel safe at home: Yes Do you feel safe in your relationship?: Yes Additional Social history: answering for pt
[2024-03-21 17:10] VITALS: BP 140/80; PULSE 70; RESP 16; TEMP 36.9; O2SAT 93
[2024-03-21 17:41] VITALS: BP 160/76; PULSE 70; RESP 14; TEMP 36.8; O2SAT 94
== END 2024-03-21 17:51 | disposition home or self-care (01) ==
PROVIDERS: Emergency Provider Physician Assistant; PCP Nurse Practitioner Adult Health
DX: S01.01XA Laceration without foreign body of scalp, initial encounter (principal); S09.8XXA Other specified injuries of head, initial encounter; I10 Essential (primary) hypertension; E78.5 Hyperlipidemia, unspecified; E11.9 Type 2 diabetes mellitus without complications; F03.90 Unspecified dementia, unspecified severity, without behavioral disturbance, psychotic disturbance, mood disturbance, and anxiety; I25.2 Old myocardial infarction; I48.0 Paroxysmal atrial fibrillation; Z79.01 Long term (current) use of anticoagulants; Z95.0 Presence of cardiac pacemaker; Z95.5 Presence of coronary angioplasty implant and graft; Z79.84 Long term (current) use of oral hypoglycemic drugs
CPT/HCPCS: 12001; 99284; 70450; 72125; 99283

== ENCOUNTER 2024-03-29 10:03 | Emergency (ER) | payer OTHER, SELFPAY ==
[2024-03-29 10:06] VITALS: BP 131/85; PULSE 70; RESP 20; TEMP 36.6; O2SAT 97
--- NOTE | 2024-03-29 10:14 | ED.GENADUL_ITS ---
Discharge Plan Disposition Patient Disposition: Home Condition: Stable Discharge Details Chief Complaint: SutureRem Clinical Impression: Encounter for staple removal Primary Care Provider: Jessie Bose ED Provider: Ted Moore Home Meds and New Rx's Prescriptions: No Action atorvastatin 80 mg tablet See Rx Instructions .ROUTE .COMPLEX Qty: 90 3RF Dose Instruction: TAKE ONE TABLET BY MOUTH AT BEDTIME Rx Instructions: TAKE ONE TABLET BY MOUTH AT BEDTIME spironolactone 25 mg tablet 12.5 mg PO DAILY Patient Comments: TAKE ONE TABLET BY MOUTH EVERY DAY folic acid 1 mg tablet 1 mg PO DAILY Qty: 90 3RF (DME) AFO Brace (R foot) See Rx Instructions .Route .MEDSUPPLY Qty: 1 0RF Rx Instructions: R AFO brace for foot drop albuterol sulfate [ProAir HFA] 90 mcg/actuation HFA aerosol inhaler 1 - 2 puff Inhalation Q6H PRN Qty: 6.7 2RF Rx Instructions: SOB/wheeze nitroglycerin 0.4 mg tablet, sublingual 0.4 mg SUBLINGUAL DIRECTED Qty: 30 0RF loperamide [Imodium A-D] 2 mg tablet 2 mg PO Q6H PRN (Reason: loose stool) Qty: 90 12RF finasteride [Proscar] 5 mg tablet 5 mg PO HS Qty: 90 3RF quetiapine 50 mg tablet See Rx Instructions PO QHS Qty: 90 1RF Rx Instructions: Take 50mg by mouth nightly at bedtime for depression; may take 1/2 tab (25mg) BID PRN agitation memantine 5 mg tablet 5 mg PO BID Qty: 60 5RF acetaminophen [Tylenol] 325 mg capsule 1,000 mg PO Q6H PRN (Reason: fever or pain) bupropion HCl 150 mg tablet extended release 24 hr 150 mg PO QAM Qty: 90 3RF Rx Instructions: Changed to ONCE PER DAY dosing--take in AM mirtazapine 7.5 mg tablet 7.5 mg PO QHS Qty: 90 3RF Rx Instructions: New RX 12/13/23 for depression, anxiety, sleep sotalol 80 mg tablet 80 mg PO BID Qty: 180 1RF Eliquis 5 mg tablet 5 mg PO BID Qty: 60 0RF Rx Instructions: 1-month courtesy supply until can get RX from [facility] [place] cardiology potassium chloride 20 mEq tablet extended release 20 meq PO DAILY Qty: 90 3RF Rx Instructions: Hypokalemia amlodipine 10 mg tablet See Rx Instructions .ROUTE .COMPLEX Qty: 90 3RF Dose Instruction: TAKE ONE TABLET BY MOUTH EVERY DAY Rx Instructions: TAKE ONE TABLET BY MOUTH EVERY DAY cholecalciferol (vitamin D3) [Vitamin D3] 50 mcg (2,000 unit) Capsule 50 mcg PO DAILY furosemide 40 mg tablet 20 mg PO .COMPLEX Patient Comments: TAKE ONE TABLET BY MOUTH TWICE A DAY Rx Instructions: 20 mg orally Every Other Day; HPI General Date/Time Provider Initiated Documentation: 03/29/24 10:08 . Related Data Home Medications ?Medication ?Instructions ?Recorded ?Confirmed cholecalciferol (vitamin D3) 50 50 mcg PO DAILY 07/07/21 03/29/24 mcg (2,000 unit) capsule (Vitamin D3) atorvastatin 80 mg tablet See Rx Instructions .Route 08/04/23 03/29/24 .COMPLEX #90 tabs albuterol sulfate 90 mcg/actuation 1 - 2 puff inhalation Q6H PRN 08/17/23 03/29/24 aerosol inhaler (ProAir HFA) shortness of breath or wheezing #6.7 grams nitroglycerin 0.4 mg sublingual 0.4 mg sublingual DIRECTED #30 08/17/23 03/29/24 tablet tabs loperamide 2 mg tablet (Imodium 2 mg PO Q6H PRN loose stool #90 10/07/23 03/29/24 A-D) tabs apixaban 5 mg tablet (Eliquis) 5 mg PO BID #60 tabs 10/27/23 03/29/24 sotalol 80 mg tablet 80 mg PO BID #180 tabs 10/27/23 03/29/24 spironolactone 25 mg tablet 12.5 mg PO DAILY 11/11/23 03/29/24 AFO Brace (R foot) #1 ea 11/25/23 03/29/24 folic acid 1 mg tablet 1 mg PO DAILY #90 tabs 11/25/23 03/29/24 potassium chloride 20 mEq 20 meq PO DAILY #90 tabs 12/08/23 03/29/24 tablet,extended release acetaminophen 325 mg capsule 1,000 mg PO Q6H PRN fever or pain 12/13/23 03/29/24 (Tylenol) bupropion HCl 150 mg 24 hr tablet, 150 mg PO QAM #90 tabs 12/13/23 03/29/24 extended release mirtazapine 7.5 mg tablet 7.5 mg PO QHS #90 tabs 12/13/23 03/29/24 amlodipine 10 mg tablet See Rx Instructions .Route 12/27/23 03/29/24 .COMPLEX #90 tabs finasteride 5 mg tablet (Proscar) 5 mg PO HS #90 tabs 01/06/24 03/29/24 quetiapine 50 mg tablet See Rx Instructions PO QHS #90 tabs 01/06/24 03/29/24 furosemide 40 mg tablet 20 mg PO .COMPLEX 01/10/24 03/29/24 memantine 5 mg tablet 5 mg PO BID #60 tabs 02/17/24 03/29/24 Previous Rx's ?Medication ?Instructions ?Recorded atorvastatin 80 mg tablet See Rx Instructions .Route 08/04/23 .COMPLEX #90 tabs albuterol sulfate 90 mcg/actuation 1 - 2 puff inhalation Q6H PRN 08/17/23 aerosol inhaler (ProAir HFA) shortness of breath or wheezing #6.7 grams nitroglycerin 0.4 mg sublingual 0.4 mg sublingual DIRECTED #30 08/17/23 tablet tabs loperamide 2 mg tablet (Imodium 2 mg PO Q6H PRN loose stool #90 10/07/23 A-D) tabs apixaban 5 mg tablet (Eliquis) 5 mg PO BID #60 tabs 10/27/23 sotalol 80 mg tablet 80 mg PO BID #180 tabs 10/27/23 AFO Brace (R foot) #1 ea 11/25/23 folic acid 1 mg tablet 1 mg PO DAILY #90 tabs 11/25/23 potassium chloride 20 mEq 20 meq PO DAILY #90 tabs 12/08/23 tablet,extended release bupropion HCl 150 mg 24 hr tablet, 150 mg PO QAM #90 tabs 12/13/23 extended release mirtazapine 7.5 mg tablet 7.5 mg PO QHS #90 tabs 12/13/23 amlodipine 10 mg tablet See Rx Instructions .Route 12/27/23 .COMPLEX #90 tabs finasteride 5 mg tablet (Proscar) 5 mg PO HS #90 tabs 01/06/24 quetiapine 50 mg tablet See Rx Instructions PO QHS #90 tabs 01/06/24 memantine 5 mg tablet 5 mg PO BID #60 tabs 02/17/24 Allergies Allergy/AdvReac Type Severity Reaction Status Date / Time oxycodone AdvReac Intermediate He goes a Verified 03/29/24 10:07 little wacky General Stated Complaint: SutureRem LOREN: 5 Course Vital Signs Vital signs: Vital Signs Temperature 36.6 C 03/29/24 10:06 Pulse 70 03/29/24 10:06 Respiratory Rate 20 03/29/24 10:06 Blood Pressure 131/85 03/29/24 10:06 Pulse Oximetry 97 03/29/24 10:06 Temperature 36.6 C 03/29/24 10:06 Temperature Source Temporal Artery Scan 03/29/24 10:06 Pulse 70 03/29/24 10:06 Respiratory Rate 20 03/29/24 10:06 Respiratory Effort Normal, Non-Labored 03/29/24 10:08 Blood Pressure 131/85 03/29/24 10:06 Blood Pressure Position Sitting 03/29/24 10:06 Pulse Oximetry 97 03/29/24 10:06 Oxygen Delivery Method Room Air 03/29/24 10:06 Oxygen Flow Rate 0 03/29/24 10:06 Pain Level 0 03/29/24 10:06 Medical Decision Making This dictation utilizes [id number] dictation software and may contain unedited grammatical errors. 79 y/o M presents for staple removal from uncomplicated posterior scalp laceration, #3 sutures were removed in triage by director of staff development, patient has no complaints. Patients' medical history: noncontributory. Family and social history: noncontributory. Pertinent exam findings / vital signs include well-healed scabbed over posterior scalp laceration without erythema, swelling, warmth, purulence. Differential / pathologies of concern include healing laceration to posterior scalp, scab about 3cm in size. Diagnostic studies of: -none. Interventions of: -#3 vanessa removed by RN in triage. ED Course/Assessment/Plan: 79-year-old male presents with uncomplicated request for staple removal from posterior head laceration placed 8 days ago, the wound has healed very well and there is no signs of infection, I verbally discussed return criteria with the patient and his for returning for any signs of infection otherwise verbally discharged home. Findings not consistent with wound infection. Disposition of Encounter for Staple Removal. Patient verbalized understanding of the plan and return to ED criteria and engaged in shared decision making. Medical Records Medical records reviewed: Yes I reviewed the patient's medical records. Quality:SDOH Health Related Social Needs: Health related social needs details HXO dementia PFSH All Active Problems (Updated 03/29/24 @ 10:20 by CELIA Lund) Encounter for staple removal (Acute) Head injury (Acute) Laceration of scalp (Acute) B12 deficiency (Acute) Infection of prosthetic left knee joint (Acute) Knee effusion, left (Acute) Hematoma (Acute) Chronic anticoagulation (Acute) Hematoma of left lower extremity (Acute) Dementia with behavioral disturbance (Acute ~11/2023) Quetiapine Hypokalemia (Acute) Dementia, unspecified, without behavioral disturbance (Chronic) Delirium due to another medical condition (Acute) Folate deficiency (Acute) Mild anemia (Acute ~07/2023) Recurrent falls while walking (Acute ~2023) Impaired gait and mobility (Acute ~2023) Hallucinations (Acute) Memory difficulty (Acute ~07/2023) PAF (paroxysmal atrial fibrillation) (Chronic ~07/2023) [facility] [place] Cardio-07/20/23 Pacemaker (Acute ~03/2023) [facility] 03/23/2023 Rotator cuff arthropathy of left shoulder (Acute) subacromial corticosteroid injection 10/28/22 Primary hypertension (Chronic) BPH (benign prostatic hyperplasia) (Chronic) RX Finasteride Glaucoma (Chronic) 09/05/19 [place] Depression (Chronic) Long-term RX Wellbutrin Diverticulosis (Chronic) 2019 colonoscopy Sinus node dysfunction (Chronic) [facility] [place] Cardiolgy; stay off of BB Obesity (Chronic) Tubular adenoma (Chronic 10/04/08) Colonoscopy 10/04/15 & repeat 2019 (13!) Diabetes type 2, controlled (Chronic) Dx'ed in COPD (chronic obstructive pulmonary disease) (Acute) Coronary artery disease (Chronic) [facility] [employer] [place] 1998 with angina; cath in 1998 1-vessel dis Obstructive sleep apnea (Chronic) h/o CPAP; clausterphobic with masks so stopped using; then 100# weight loss; referred in 11/2019 but he declined Medical History Alcoholism in remission Calf swelling Leg pain, right Pelvic hematoma in male Swollen penis SOB (shortness of breath) on exertion Myocardial infarction X2 1997, 1998 Small bowel obstruction [facility] 05/2018; 02/2023 Normochromic normocytic anemia Bradycardia, sinus 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 remote broadcast engineer Rupture of right biceps tendon PT Cataracts, bilateral 09/05/19 [place] OS>>OD Epidermal inclusion cyst Lipoma of head Removed 04/2019 [place] Anxiety and depression Pancreatitis [facility] 05/2018 (mild) Hyperlipidemia Atorvastatin Surgical History History of bilateral inguinal hernia repair Postoperative state S/P bilateral inguinal hernia repair, follow-up exam S/P cardiac pacemaker procedure (~03/2023) S/P colonoscopy (~05/02/19) 09/2015- [place]- Tubular adenomas x2 05/2019--Brain x13 tubular adenomas Total knee replacement status R 12/11/2013 L S/P shoulder surgery S/P coronary artery stent placement 04/30/19 per pt he does not have a stent. 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 Pets and animals: Yes Sexually active: Yes Do you think of yourself as: straight/heterosexual Current gender identity: male What is your relationship status?: living with partner How often do you get together with friends or relatives?: twice per week Panel score (0-1 are the most socially isolated patients): 1 What type of physical activity do you participate in: walking Duration: > 90 minutes/day Frequency: 3-4 times per week Desirae/Samaritan: Anabaptist Special desirae needs: No Seatbelt use: always Drive intox or ride w/intox pick up truck driver: No Do you feel safe at home: Yes Do you feel safe in your relationship?: Yes Additional Social history: answering for pt
== END 2024-03-29 10:21 | disposition home or self-care (01) ==
PROVIDERS: Emergency Provider Physician Assistant; PCP Nurse Practitioner Adult Health
DX: Z48.02 Encounter for removal of sutures (principal)

== ENCOUNTER 2024-05-05 01:43 | Outpatient (CLI) | payer OTHER, SELFPAY ==
[2024-05-05 08:31] LABS: HCT 39.6 % (40.0-50.0); HGB 12.4 g/dL (13.5-17.5); MCH 26.3 pg (27.0-33.0); MCHC 31.3 % (32.0-36.0); MCV 84 fL (80-95); MPV 9.4 fL (8.0-11.0); Platelet Count 259 10^3/uL (130-400); RBC 4.71 10^6/uL (4.36-5.78); RDW-SD 45.7 fL; WBC 7.51 10^3/uL (4.4-10.8)
[2024-05-05 08:54] LABS: Hemoglobin A1C 6.7 % (<5.7)
[2024-05-05 09:10] LABS: Anion Gap 8.2 mmol/L (3-11); BUN 12 mg/dL (7-18); CO2 28.8 mmol/L (21.0-32.0); Calcium 9.5 mg/dL (8.5-10.1); Calculated LDL 51 mg/dL (<100); Chloride 104 mmol/L (98-107); Cholesterol 143 mg/dL (<200); Estimated GFR 76.08 (mL/min/1.73m2); Ferritin 92 ng/mL (26-388); Folate > 20.0 ng/mL (8.6-20.0); Glucose 130 mg/dL (74-106); HDL Cholesterol 79 mg/dL (40-60); Potassium 4.1 mmol/L (3.5-5.1); Sodium 141 mmol/L (136-145); Triglyceride 69 mg/dL (<150); Vitamin B12 923 pg/mL (193-986)
[2024-05-05 09:43] LABS: Iron 42 ug/dL (65-175); Total Iron Binding Capacity 247 ug/dL (250-450); Transferrin Sat 17 % (20-55)
[2024-05-05 12:06] LABS: COMMENT (LAB VIEW ONLY) 24.32 mg/dL; Microalb ug/mg Crea 83.9 ug/mg Cr
== END 2024-05-05 01:44 | disposition home or self-care (01) ==
LOC: LBO 01:43
PROVIDERS: PCP Nurse Practitioner Adult Health; Referring Provider Nurse Practitioner Adult Health; Visit Provider Nurse Practitioner Adult Health
DX: E11.9 Type 2 diabetes mellitus without complications (principal); E53.8 Deficiency of other specified B group vitamins; E87.6 Hypokalemia; I10 Essential (primary) hypertension; D64.9 Anemia, unspecified
CPT/HCPCS: 36415; 80048; 80061; 85027; 82043; 82570; 82607; 82728; 82746; 83036; 83540; 83550; 83735

== ENCOUNTER → 2024-05-22 12:41 | Outpatient (BNVA) | payer OTHER, SELFPAY | PROVIDERS: PCP Nurse Practitioner Adult Health; Referring Provider Nurse Practitioner Adult Health; Visit Provider Psychiatry & Neurology Neurology | DX: R29.6 Repeated falls (principal); R41.3 Other amnesia; E53.8 Deficiency of other specified B group vitamins | CPT/HCPCS: 99214 ==

== ENCOUNTER 2024-08-19 15:22 | Emergency (ER) | payer MEDICARE, SELFPAY ==
[2024-08-19 15:35] VITALS: BP 146/73; PULSE 69; RESP 16; TEMP 36.6; O2SAT 97
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
== END 2024-08-19 15:43 | disposition home or self-care (01) ==
LOC: ER 16:16
PROVIDERS: Emergency Provider Emergency Medicine; PCP Nurse Practitioner Adult Health
DX: T21.23XD Burn of second degree of upper back, subsequent encounter (principal); S60.445A External constriction of left ring finger, initial encounter; T31.0 Burns involving less than 10% of body surface; I25.10 Atherosclerotic heart disease of native coronary artery without angina pectoris; I25.2 Old myocardial infarction; E78.5 Hyperlipidemia, unspecified; E11.9 Type 2 diabetes mellitus without complications; I48.0 Paroxysmal atrial fibrillation; J44.9 Chronic obstructive pulmonary disease, unspecified; Z79.01 Long term (current) use of anticoagulants; Z79.84 Long term (current) use of oral hypoglycemic drugs; Z95.5 Presence of coronary angioplasty implant and graft; W49.04XA Ring or other jewelry causing external constriction, initial encounter
CPT/HCPCS: 99283

== ENCOUNTER → 2024-08-21 11:13 | Outpatient (BNVA) | payer MEDICARE, SELFPAY | PROVIDERS: PCP Nurse Practitioner Adult Health; Referring Provider Nurse Practitioner Adult Health; Visit Provider Psychiatry & Neurology Neurology | DX: R29.6 Repeated falls (principal); R41.3 Other amnesia; E53.8 Deficiency of other specified B group vitamins | CPT/HCPCS: 99214 ==

== ENCOUNTER → 2024-10-05 10:01 | Outpatient (BNVA) | payer MEDICARE, SELFPAY | PROVIDERS: PCP Nurse Practitioner Adult Health; Referring Provider Nurse Practitioner Adult Health; Visit Provider Physical Therapy Assistant | DX: Z12.11 Encounter for screening for malignant neoplasm of colon (principal); Z86.0101 Personal history of adenomatous and serrated colon polyps ==

== ENCOUNTER 2024-10-20 07:23 | Day surgery (SDC) | payer MEDICARE, SELFPAY ==
--- NOTE | 2024-10-19 17:57 | W.PM.DSUDISC ---
Date of service: 10/20/24 Discharge Plan Disposition Patient Disposition: Home Condition: Good Discharge Details Reason For Visit: Screening colonoscopy Attending Provider: Thaddeus Forrester Primary Care Provider: Jessie Bose Home Meds and New Rx's Prescriptions: Continued folic acid 1 mg tablet 1 mg PO DAILY Qty: 90 3RF (DME) AFO Brace (R foot) See Rx Instructions .Route .MEDSUPPLY Qty: 1 0RF Rx Instructions: R AFO brace for foot drop mecobalamin (vitamin B12) 2,500 mcg tablet,chewable 2,500 mcg PO DAILY Rx Instructions: 1,000 mcg daily albuterol sulfate [ProAir HFA] 90 mcg/actuation HFA aerosol inhaler 1 - 2 puff Inhalation Q6H PRN Qty: 6.7 2RF Rx Instructions: SOB/wheeze nitroglycerin 0.4 mg tablet, sublingual 0.4 mg SUBLINGUAL DIRECTED Qty: 30 0RF finasteride [Proscar] 5 mg tablet 5 mg PO HS Qty: 90 3RF acetaminophen [Tylenol] 325 mg capsule 1,000 mg PO Q6H PRN (Reason: fever or pain) bupropion HCl 150 mg tablet extended release 24 hr 150 mg PO QAM Qty: 90 3RF Rx Instructions: Changed to ONCE PER DAY dosing--take in AM mirtazapine 7.5 mg tablet 7.5 mg PO QHS Qty: 90 3RF Rx Instructions: New RX 12/13/23 for depression, anxiety, sleep memantine 10 mg tablet 10 mg PO BID Qty: 180 3RF ferrous sulfate 325 mg (65 mg iron) tablet 325 mg PO DAILY Qty: 90 0RF atorvastatin 80 mg tablet See Rx Instructions .ROUTE .COMPLEX Qty: 90 3RF Dose Instruction: TAKE ONE TABLET BY MOUTH AT BEDTIME Rx Instructions: TAKE ONE TABLET BY MOUTH AT BEDTIME silver sulfadiazine [Silvadene] 1 % cream 1 applic topical BID Qty: 50 0RF Rx Instructions: apply a 1.5 mm thickness potassium chloride 20 mEq tablet extended release 20 meq PO DAILY Qty: 90 3RF Rx Instructions: Hypokalemia amlodipine 10 mg tablet See Rx Instructions .ROUTE .COMPLEX Qty: 90 3RF Dose Instruction: TAKE ONE TABLET BY MOUTH EVERY DAY Rx Instructions: TAKE ONE TABLET BY MOUTH EVERY DAY sotalol 80 mg tablet See Rx Instructions .ROUTE .COMPLEX Qty: 180 1RF Dose Instruction: TAKE ONE TABLET BY MOUTH TWICE A DAY Rx Instructions: TAKE ONE TABLET BY MOUTH TWICE A DAY (DME) blood sugar diagnostic Strip See Rx Instructions .Route Qty: 100 3RF Rx Instructions: Accu-check test strips. As directed to check daily blood glucose. No Insulin. Dx E11.9 to maintain HbA1c less than 7% (DME) blood-glucose meter Misc See Rx Instructions .Route Qty: 1 0RF Rx Instructions: Accu-check blood glucose meter To check daily blood glucose. No Insulin. DX E11.9 to maintain HbA1c less than 7% quetiapine 50 mg tablet See Rx Instructions .ROUTE .COMPLEX Qty: 180 1RF Dose Instruction: TAKE ONE TABLET BY MOUTH AT BEDTIME FOR DEPRESSION; MAY TAKE ONE-HALF TABLET TWO TIMES A DAY NEEDED FOR AGITATION Patient Comments: Per pt take 50mg in am and 50mg in pm Rx Instructions: TAKE ONE TABLET BY MOUTH AT BEDTIME FOR DEPRESSION; MAY TAKE ONE-HALF TABLET TWO TIMES A DAY NEEDED FOR AGITATION (DME) lancets 33 gauge misc See Rx Instructions .Route Qty: 100 3RF Rx Instructions: Onetouch Delica Plus 33 Gauge. Test Blood sugar once daily. DX: E11.9 to maintain HbA1c less than 7%. cholecalciferol (vitamin D3) [Vitamin D3] 50 mcg (2,000 unit) Capsule 50 mcg PO DAILY furosemide 40 mg tablet 20 mg PO .COMPLEX Patient Comments: TAKE ONE TABLET BY MOUTH TWICE A DAY Rx Instructions: 20 mg orally Every Other Day; Held Eliquis 5 mg tablet 5 mg PO BID Qty: 60 0RF Hold Instructions: Resume on 10/21/24. Resume on the as you normally take it. Rx Instructions: 1-month courtesy supply until can get RX from [facility] [place] Discontinued bisacodyl [Dulcolax (bisacodyl)] 5 mg tablet,delayed release (DR/EC) 5 mg PO ONCE Qty: 4 0RF Rx Instructions: Take per colonoscopy instructions provided by ordering providers office polyethylene glycol 3350 17 gram/dose powder 17 g PO ONCE Qty: 238 0RF Rx Instructions: Take per colonoscopy instructions provided by ordering providers office Discharge Instructions Instructions: Colon polyps Additional Instructions: [place], it was very nice meeting you and your today, and I hope you feel well after the procedure. Things went very smoothly. In total, I did remove 7 polyps today. They were small and medium in size, none of them appear particularly worrisome. Similar to your previous experience, all of these polyps we sent off for testing. Those results will take about a week or 2 to get back, but once we know the nature of these polyps, we will be able to offer a more informed suggestion for future colonoscopies, if you choose to proceed with ongoing screening. I would like you to hold your Eliquis until tomorrow. At that point, you can take it just as you normally do. I would expect to have a little bit of blood in your first few stools, that is extremely common and nothing that I would worry about. If bleeding goes on for several days, I would certainly like to know. If you need anything, or have any questions at all, please do not hesitate to ask 1. If tolerated, consume a soft, low fiber diet for 1-2 days. [address] Do not drive, drink alcohol, operate machinery, make critical decisions, or do activities that require coordination or balance for 24 hours. 3. Because air was put into your colon during the procedure, expelling air from your rectum (passing gas or farting) is normal. 4. You may not have a bowel movement for 1-3 days because of the colonoscopy prep. This is normal. 5. Go directly to the emergency room if you notice any of the following: Develop chills (warm to touch), or if you have a thermometer and your temperature is above 101 Difficulty breathing or difficultly swallowing Persistent vomiting Severe abdominal pain, other than gas cramps Severe chest pain Black, tarry stools Any bleeding ? exceeding one tablespoon 6. Call your physician if the site where your intravenous was started becomes red, swollen, painful, and warm to touch. 7. Your physician has reviewed your pre-procedure medications. Please continue to take those medications as previously ordered. You will be given specific information/education regarding any changes to your medications before leaving. Stand Alone Forms: Anesthesia Discharge Neftali Gipson ([id number]) Activity:: Activity as Tolerated Diet:: As Tolerated Discharge Orders Discharge Orders: Discharge Order (Routine); Ordered 10/19/24 Ordered By: Thaddeus Forrester DS: Diagnosis Discharge Diagnosis (1) Encounter for screening colonoscopy: Status: Acute Asessment and Plan: Follow-up on polypectomy results
--- NOTE | 2024-10-19 17:59 | W.COLOREPORT ---
Date of service: 10/20/24 Time of Service: 10:21 Colonoscopy Report Date of procedure: 10/20/24 Pre-op diagnosis general: Screening colonoscopy Post-op diagnosis procedure note: other (Colon polyps, internal hemorrhoids) Procedure: Colonoscopy with polypectomy Surgeon: Thaddeus Forrester Anesthesia Type: General:No Airway Estimated blood loss (mL): 5 Pathology: other (0.25 cm cecal polyps x 2 pedunculated and flat, 0.5 cm ascending colon polyps x 2 pedunculated and flat, 0.5 cm flat polyp at 65 cm, 0.25 cm flat polyp at 55 cm, 0.25 cm flat polyp at 45 cm) Complications: None Disposition: same day Indications: Corona is an 79-year-old male with a history of adenomatous polyps. He needs his next screening colonoscopy for routine health maintenance Prep: Miralax/Dulcolax Procedure Start Time: 09:39 Procedure End Time: 10:09 Retraction Time: 21 Findings: Internal hemorrhoids; 0.25 cm cecal polyps x 2 pedunculated and flat, 0.5 cm ascending colon polyps x 2 pedunculated and flat, 0.5 cm flat polyp at 65 cm, 0.25 cm flat polyp at 55 cm, 0.25 cm flat polyp at 45 cm Procedure Description: After the induction of anesthesia, and with the patient in left lateral decubitus position, I began by performing an external anorectal exam.? Perineum and skin were normal, as was the anal verge.? There was no evidence of external hemorrhoids.? Next, I performed a digital rectal exam.? I did not appreciate any abnormal findings.? Next, I advanced a colonoscope into the rectal vault.? I performed retroflexion.? There are internal hemorrhoids.? Using insufflation, I then advanced the colonoscope beyond the rectal folds and into the sigmoid colon before advancing towards the cecum.? The scope was noted to be in the cecum by identification of the ileocecal valve and appendiceal orifice.? Within the cecum were 2 polyps. Each of these was about 0.25 cm. One was flat, the other was more pedunculated. These were removed with cold forcep polypectomy, and a energize snare polypectomy respectively. There was minimal bleeding from the sites. 2 polyps were found in the ascending colon. Similar to the cecum, 1 of these was flat and the other was pedunculated. Both of these were removed with a energize snare polypectomy without issues. I then began withdrawing the colonoscope using repeated irrigation as necessary for full evaluation of the colonic mucosa. I found a 0.5 cm flat polyp at 65 cm, this was removed with a energize snare polypectomy. Flat polyps were also found at 55 and 45 cm from the anal verge. Both of these were flat. Both of these were removed with cold forceps. Once the scope was withdrawn to the level of the rectum, great care was taken to examine portions of the rectal folds.? Finally, the scope was withdrawn and the patient was brought to the same-day surgery recovery unit as the anesthetic wore off. ?The findings and instructions were shared with the patient prior to discharge. [place] Bowel Prep [place] Bowel Prep Right Colon: 2 Left Colon: 1 Transverse Colon: 2 Total Score: 5
[2024-10-20 07:54] VITALS: BP 124/74; PULSE 72; RESP 16; TEMP 36.2; O2SAT 99
[2024-10-20] MEDS: Lactated Ringers 1,000 ML 80 ML IV (08:15)
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
[2024-10-20 09:31] VITALS: BMI 26.9
--- NOTE | 2024-10-20 09:46 | BOWEL_PTH ---
PATIENT: Corona Romo LOC: [facility] U#:[id number] AGE/SX: 79/M ROOM: RE10/20/[address]: Thaddeus Forrester MD : 1945 BED: DIS: 10/20/2024 SPEC #: [id number] RECD: 10/20/24 13:01 STATUS: ZULEIKA RE #: [id number] MINI: 10/20/24 09:[address]: Thaddeus Forrester DEPT: Surgical Specimen RECD BY: Yessica Short ENTERED: 10/20/24 13:03 SP TYPE: Bowel OTHR DR: Jessie Bose, MELISSA Tissues: 1 - BIOPSY BOWEL 2 - BIOPSY BOWEL 3 - BIOPSY BOWEL 4 - BIOPSY BOWEL 5 - BIOPSY BOWEL Procedures: GROSS AND MICRO LEVEL 4 Comments: [id number]
[2024-10-20 10:18] VITALS: BP 113/72; PULSE 70; RESP 19; TEMP 36.2; O2SAT 97
--- NOTE | 2024-10-20 10:33 | W.ANESPOSTOP ---
Postoperative Evaluation Date, Time and Location Date Performed: 10/20/24 Time Performed: 10:33 Patient Location: Day Surgery Unit Vital Signs Most Recent Imported Vital Signs: Most Recent Vital Signs Temp Pulse Resp BP Pulse Ox 36.2 C L 70 19 113/72 97 10/20/24 10:18 10/20/24 10:18 10/20/24 10:18 10/20/24 10:18 10/20/24 10:18 Pain Score Most Recent Pain Score: Most Recent Pain Score Pain Level 0 10/20/24 10:18 Assessment Mental Status: Awake (Alert & Oriented to Patient Baseline) Airway and Respiratory Function: Patent airway with normal (patient baseline) respiratory exam Cardiovascular Function: Hemodynamically Stable Hydration Status: Adequately Hydrated Nausea & Vomiting: No Nausea or Vomiting Pain: Pt. Denies Any Pain Peripheral Nerve Block: Patient did not receive a nerve block
[2024-10-20 10:51] VITALS: BP 125/78; PULSE 70; RESP 19; TEMP 36.3; O2SAT 96
== END 2024-10-20 11:04 | disposition home or self-care (01) ==
LOC: SUR 07:23
PROVIDERS: PCP Nurse Practitioner Adult Health; Visit Provider Surgery
PROC: 0DJD8ZZ Inspection of Lower Intestinal Tract, Via Natural or Artificial Opening Endoscopic (ICD-10-PCS; CPT 45378; principal; 2024-10-20 09:00)
DX: Z12.11 Encounter for screening for malignant neoplasm of colon (principal); D12.2 Benign neoplasm of ascending colon; K64.8 Other hemorrhoids; Z86.0101 Personal history of adenomatous and serrated colon polyps; D12.4 Benign neoplasm of descending colon; D12.5 Benign neoplasm of sigmoid colon
CPT/HCPCS: 45385; 45380; 88305; J2704

== ENCOUNTER 2024-10-30 03:16 | Outpatient (CLI) | payer MEDICARE, SELFPAY ==
[2024-10-30 09:53] LABS: HCT 41.2 % (40.0-50.0); HGB 13.4 g/dL (13.5-17.5); MCH 26.8 pg (27.0-33.0); MCHC 32.5 % (32.0-36.0); MCV 82 fL (80-95); MPV 9.6 fL (8.0-11.0); Platelet Count 245 10^3/uL (130-400); RDW 15.9 % (11.8-14.1); RDW-SD 48.1 fL; WBC 8.57 10^3/uL (4.4-10.8)
[2024-10-30 10:16] LABS: Hemoglobin A1C 6.7 % (<5.7)
[2024-10-30 10:30] LABS: Ferritin 71 ng/mL (26-388)
[2024-10-30 10:47] LABS: Iron 42 ug/dL (65-175); Total Iron Binding Capacity 245 ug/dL (250-450); Transferrin Sat 17 % (20-55)
== END 2024-10-30 03:17 | disposition home or self-care (01) ==
LOC: LBO 03:16
PROVIDERS: PCP Nurse Practitioner Adult Health; Referring Provider Nurse Practitioner Adult Health; Visit Provider Nurse Practitioner Adult Health
DX: D64.9 Anemia, unspecified (principal); R73.01 Impaired fasting glucose; D50.9 Iron deficiency anemia, unspecified
CPT/HCPCS: 36415; 85027; 82728; 83036; 83540; 83550

== ENCOUNTER → 2024-12-18 10:59 | Outpatient (BNVA) | payer MEDICARE, SELFPAY | PROVIDERS: PCP Nurse Practitioner Adult Health; Visit Provider Psychiatry & Neurology Neurology | DX: R29.6 Repeated falls (principal); R41.3 Other amnesia; E53.8 Deficiency of other specified B group vitamins; R35.1 Nocturia; I10 Essential (primary) hypertension | CPT/HCPCS: 99214 ==

== ENCOUNTER → 2025-03-26 10:08 | Outpatient (BNVA) | payer MEDICARE, SELFPAY | PROVIDERS: PCP Nurse Practitioner Adult Health; Referring Provider Nurse Practitioner Adult Health; Visit Provider Psychiatry & Neurology Neurology | DX: R29.6 Repeated falls (principal); R41.3 Other amnesia; E53.8 Deficiency of other specified B group vitamins; R35.1 Nocturia; I10 Essential (primary) hypertension | CPT/HCPCS: 99214 ==

== ENCOUNTER 2025-05-09 11:05 | Outpatient (CLI) | payer MEDICARE, SELFPAY ==
[2025-05-09 12:08] LABS: HCT 38.5 % (40.0-50.0); HGB 12.8 g/dL (13.5-17.5); MCH 29.6 pg (27.0-33.0); MCHC 33.2 % (32.0-36.0); MCV 89 fL (80-95); MPV 10.1 fL (8.0-11.0); Platelet Count 174 10^3/uL (130-400); RBC 4.32 10^6/uL (4.36-5.78); RDW 13.7 % (11.8-14.1); RDW-SD 44.7 fL; WBC 6.89 10^3/uL (4.4-10.8)
[2025-05-09 13:14] LABS: ALT 15 U/L (16-63); AST 15 U/L (15-37); Albumin 3.6 g/dL (3.4-5.0); Alkaline Phosphatase 155 U/L (46-116); Anion Gap 6.5 mmol/L (3-11); BUN 17 mg/dL (7-18); Bilirubin, Total 1.2 mg/dL (0.2-1.0); CO2 31.5 mmol/L (21.0-32.0); Calcium 8.6 mg/dL (8.5-10.1); Calculated LDL 55 mg/dL (<100); Chloride 106 mmol/L (98-107); Cholesterol 141 mg/dL (<200); Estimated GFR 88.91 (mL/min/1.73m2); Glucose 114 mg/dL (74-106); HDL Cholesterol 72 mg/dL (>or=40); Magnesium 1.9 mg/dL (1.8-2.4); Potassium 3.3 mmol/L (3.5-5.1); Sodium 144 mmol/L (136-145); Total Protein 6.8 g/dL (6.4-8.2); Triglyceride 70 mg/dL (<150); Vitamin B12 1170 pg/mL (193-986)
[2025-05-09 13:25] LABS: Folate > 20.0 ng/mL (8.6-20.0)
[2025-05-09 15:24] LABS: Lab Add On Test DONE
[2025-05-09 15:28] LABS: ESR 6 mm/hr (0-20)
== END 2025-05-09 11:06 | disposition home or self-care (01) ==
LOC: LBO 11:06
PROVIDERS: PCP Nurse Practitioner Adult Health; Visit Provider Nurse Practitioner Adult Health
DX: E11.9 Type 2 diabetes mellitus without complications (principal); E53.8 Deficiency of other specified B group vitamins; I10 Essential (primary) hypertension; E87.6 Hypokalemia; F03.918 Unspecified dementia, unspecified severity, with other behavioral disturbance; R53.1 Weakness
CPT/HCPCS: 36415; 80053; 80061; 85027; 85652; 82607; 82746; 83735

== ENCOUNTER 2025-05-09 12:27 | Outpatient (CLI) | payer MEDICARE, SELFPAY ==
--- NOTE | 2025-05-09 12:15 | RT.EKG_ITS ---
APPROVED REPORT Exam: Resting ECG Reason for Exam: r/o dysrhythmia Patient Location: O HR:70 bpm ECG Measurements Heart Rate 70 AXIS OH 63 P 0 QRSd 160 QRS -44 QT 434 T 19 QTc 469 Conclusion Sinus rhythm...normal P axis, V-rate 50- 99 Multiple premature complexes, vent RBBB and LAFB...QRSd >120mS, axis(-40,240)
== END 2025-05-09 12:28 | disposition home or self-care (01) ==
LOC: DI.KIM 12:28
PROVIDERS: PCP Nurse Practitioner Adult Health; Visit Provider Nurse Practitioner Adult Health
DX: R53.1 Weakness (principal); I45.10 Unspecified right bundle-branch block; I44.4 Left anterior fascicular block
CPT/HCPCS: 93010